=== PATIENT | female | born 1955 | race Caucasian/White ===

== ENCOUNTER → 2016-09-18 | Outpatient (CLI) | payer OTHER ==
[~2016-09-18] MED LIST: ACET325T96 PO; ALBU1AER9 PO; AMOX500T PO; AMOX875T PO; ASCA500 PO; ASPEC81 PO; ASPI81TA28 PO; ATOR-24 PO; B-CO1TAB73 PO; CALC0.2510 PO; CEFD1CAP14 PO; CHOL100010 PO; CHOL2000 PO; CIPR1TAB11 PO; CMD/25 PO; CMD25 PO; CPR750 PO; CPROT OT; CYAN10005 PO; DIPH2CRE16 EXT; DOCU-94 PO; GABA1CAP5 PO; HEPA1INJ22 SQ; HYDR-3126 PO; HYDR-3419 PO; HYDR-4330 PO; HYDR-5688 PO; INSDGI SQ; INSDGIPEN SC; INSU1.2I SQ; INSUINJ14 SC; LEVO125T72 PO; LEVO1TAB33 PO; LORA-741 PO; LORA0.5T12 PO; LVQ500 PO; MAGN400T5 PO; MCTP EXT; METO-452 PO; METO2.5T PO; METO25TA3 PO; MISCCAP80 PO; MULT-506 PO; MULTTAB63 PO; NUTRMIS PO; NVLG SC; NYSP EXT; OXGN; PIPE1INJ11 IV; POTA20TA13 PO; PRED-301 PO; PRT/20 PO; SERT-234 PO; SNTO30; SNTO30 EXT; SNTO30 TOP; SPRIN/30 INH; TIOTCAP INH; TORS100T13 PO; VANC5CAP PO; VNCS250 PO; WARF5TAB90 PO; ZSYI45 IV; [UNRECOGNIZED DRUG - CODE] IV; protein powder PO
[2016-09-18 12:09] LABS: BASO % 0.5 %; BASO ABS # 0.09 K/uL (0-0.2); EOS % 4.5 %; HEMATOCRIT 31.3 % (37-47); IG% 0.7 %; LYMPH % 8.3 %; LYMPH ABS # 1.59 K/uL (1.2-3.4); MEAN CORPUSCULAR HGB CONC 29.1 g/dl (32-36); MEAN PLATELET VOLUME 9.4 fL (7.4-10.4); MONO % 7.1 %; NEUT % 78.9 %; PLATELET COUNT 514 K/uL (130-400); RED BLOOD COUNT 3.64 M/uL (4.2-5.4); WHITE BLOOD COUNT 19.23 K/uL (4.8-10.8)
[2016-09-18 12:30] LABS: ALT/SGPT 20 U/L (12-78); AST/SGOT 15 U/L (15-37); BLOOD UREA NITROGEN 25 mg/dl (7-18); BUN/CREATININE RATIO 13.2 (10-20); CALCIUM 9.1 mg/dl (8.5-10.1); CARBON DIOXIDE 30 mmol/L (21-32); CHLORIDE 106 mmol/L (98-107); GLUCOSE 159 mg/dl (70-99); POTASSIUM 5.3 mmol/L (3.5-5.1); SODIUM 144 mmol/L (136-145)
[2016-09-18 12:33] LABS: ALB/GLOB RATIO 0.4 (0.9-2); ALKALINE PHOSPHATASE 138 U/L (45-117)
[2016-09-18 12:40] LABS: ANISOCYTOSIS PRESENT; COMPLETE YES; POLYCHROMASIA 1+; STOMATOCYTE 1+
== END ==
LOC: C.LABCC 11:48
PROVIDERS: ATTEND Internal Medicine
DX: L08.9 Local infection of the skin and subcutaneous tissue, unspecified (principal)

== ENCOUNTER → 2016-09-25 | Outpatient (CLI) | payer OTHER ==
[~2016-09-25] MED LIST changes: -CEFD1CAP14 PO; -METO-452 PO; +METO1TAB66 PO; -SNTO30 TOP
[2016-09-25 09:12] LABS: HEMATOCRIT 32.7 % (37-47); MEAN CORPUSCULAR HEMOGLOBIN 24.7 pg (25-34); MEAN CORPUSCULAR HGB CONC 28.4 g/dl (32-36); MEAN PLATELET VOLUME 9.3 fL (7.4-10.4); PLATELET COUNT 423 K/uL (130-400); RED BLOOD COUNT 3.76 M/uL (4.2-5.4); WHITE BLOOD COUNT 16.73 K/uL (4.8-10.8)
[2016-09-25 09:13] LABS: ALT/SGPT 17 U/L (12-78); AST/SGOT 16 U/L (15-37); BLOOD UREA NITROGEN 29 mg/dl (7-18); BUN/CREATININE RATIO 13.9 (10-20); CALCIUM 9.3 mg/dl (8.5-10.1); CARBON DIOXIDE 25 mmol/L (21-32); CHLORIDE 105 mmol/L (98-107); GLUCOSE 115 mg/dl (70-99); POTASSIUM 3.7 mmol/L (3.5-5.1); SODIUM 144 mmol/L (136-145)
[2016-09-25 09:15] LABS: ALB/GLOB RATIO 0.4 (0.9-2); ALKALINE PHOSPHATASE 144 U/L (45-117)
[2016-09-25 10:59] LABS: ANISOCYTOSIS PRESENT; BASO % 0.7 %; BASO ABS # 0.12 K/uL (0-0.2); COMPLETE YES; IG% 1.1 %; LYMPH ABS # 2.17 K/uL (1.2-3.4); MONO % 12.4 %; NEUT % 65.8 %; OVALOCYTES 1+; POLYCHROMASIA 1+
== END ==
LOC: C.LABCC 08:26
PROVIDERS: ATTEND Internal Medicine
DX: L08.9 Local infection of the skin and subcutaneous tissue, unspecified (principal)

== ENCOUNTER → 2016-10-02 | Outpatient (CLI) | payer OTHER ==
[2016-10-02 08:27] LABS: BASO % 0.7 %; BASO ABS # 0.13 K/uL (0-0.2); COMPLETE YES; EOS % 6.9 %; HEMATOCRIT 33.5 % (37-47); LYMPH % 11.5 %; LYMPH ABS # 2.13 K/uL (1.2-3.4); MEAN CELL VOLUME 85.9 fL (80-100); MEAN CORPUSCULAR HEMOGLOBIN 24.9 pg (25-34); MEAN PLATELET VOLUME 9.6 fL (7.4-10.4); MONO % 11.9 %; PLATELET COUNT 445 K/uL (130-400); WHITE BLOOD COUNT 18.52 K/uL (4.8-10.8)
[2016-10-02 08:33] LABS: BLOOD UREA NITROGEN 35 mg/dl (7-18); CALCIUM 9.2 mg/dl (8.5-10.1); CARBON DIOXIDE 26 mmol/L (21-32); CHLORIDE 103 mmol/L (98-107); GLUCOSE 145 mg/dl (70-99); POTASSIUM 3.6 mmol/L (3.5-5.1); SODIUM 143 mmol/L (136-145)
[2016-10-02 08:36] LABS: ALB/GLOB RATIO 0.4 (0.9-2); ALKALINE PHOSPHATASE 167 U/L (45-117); ALT/SGPT 26 U/L (12-78); AST/SGOT 28 U/L (15-37)
--- NOTE | 2016-10-04 11:54 | CODING QUERY NO DIAGNOSIS ---
: 1955 TREATMENT RENDERED WITHOUT A DIAGNOSIS To promote full compliance with coding requirements relating to patient care, physician participation is requested in all cases of manager ct uncertainty. Please assist us with providing a diagnosis/symptom for the test(s) below: A diagnosis/symptom was not documented on your Order. A valid diagnosis/symptom is required to bill all insurances. Please remember that we are unable to code a diagnosis of rule out, probable, possible, questionable, or suspected. Tests that require a diagnosis: DOS: 10/02/16 * Comprehensive Metabolic Panel DIAGNOSIS: * CBC W/Auto Differential DIAGNOSIS: * Erythrocyte Sedimentation Rate DIAGNOSIS: Provider Signature: Date: Thank you Carolyn Hernandez Health Information Management Once completed, please kindly fax back to [phone] For questions please call [phone]
== END ==
LOC: C.LABCC 07:58
PROVIDERS: ATTEND Internal Medicine
DX: S31.809A Unspecified open wound of unspecified buttock, initial encounter (principal); X58.XXXA Exposure to other specified factors, initial encounter

== ENCOUNTER → 2016-10-09 | Outpatient (CLI) | payer OTHER ==
[2016-10-09 09:00] LABS: BASO % 0.5 %; COMPLETE YES; EOS % 7.1 %; HEMATOCRIT 35.1 % (37-47); IG% 0.6 %; LYMPH % 10.4 %; LYMPH ABS # 1.99 K/uL (1.2-3.4); MEAN CELL VOLUME 85.4 fL (80-100); MEAN CORPUSCULAR HEMOGLOBIN 25.1 pg (25-34); MEAN CORPUSCULAR HGB CONC 29.3 g/dl (32-36); MEAN PLATELET VOLUME 9.5 fL (7.4-10.4); MONO % 10.1 %; NEUT % 71.3 %; PLATELET COUNT 457 K/uL (130-400); RED BLOOD COUNT 4.11 M/uL (4.2-5.4); WHITE BLOOD COUNT 19.08 K/uL (4.8-10.8)
[2016-10-09 09:08] LABS: ALT/SGPT 29 U/L (12-78); BLOOD UREA NITROGEN 46 mg/dl (7-18); BUN/CREATININE RATIO 15.8 (10-20); CALCIUM 9.3 mg/dl (8.5-10.1); CARBON DIOXIDE 24 mmol/L (21-32); CHLORIDE 103 mmol/L (98-107); GLUCOSE 128 mg/dl (70-99); POTASSIUM 3.7 mmol/L (3.5-5.1); SODIUM 141 mmol/L (136-145)
[2016-10-09 09:11] LABS: ALB/GLOB RATIO 0.4 (0.9-2); ALKALINE PHOSPHATASE 175 U/L (45-117); AST/SGOT 28 U/L (15-37)
[2016-10-09 10:04] LABS: ECHINOCYTES 1+; POLYCHROMASIA 1+
== END ==
LOC: C.LABCC 08:31
PROVIDERS: ATTEND Internal Medicine
DX: L08.9 Local infection of the skin and subcutaneous tissue, unspecified (principal)

== ENCOUNTER → 2016-10-14 | Outpatient (CLI) | payer OTHER ==
[2016-10-14 08:52] LABS: BASO % 0.9 %; BASO ABS # 0.14 K/uL (0-0.2); COMPLETE YES; EOS % 6.2 %; HEMATOCRIT 36.3 % (37-47); IG% 0.6 %; LYMPH % 12.3 %; LYMPH ABS # 1.93 K/uL (1.2-3.4); MEAN CORPUSCULAR HEMOGLOBIN 25.1 pg (25-34); MEAN CORPUSCULAR HGB CONC 29.5 g/dl (32-36); MEAN PLATELET VOLUME 9.6 fL (7.4-10.4); MONO % 12.3 %; NEUT % 67.7 %; PLATELET COUNT 483 K/uL (130-400); RED BLOOD COUNT 4.27 M/uL (4.2-5.4); WHITE BLOOD COUNT 15.74 K/uL (4.8-10.8)
[2016-10-14 08:58] LABS: BLOOD UREA NITROGEN 54 mg/dl (7-18); BUN/CREATININE RATIO 19.1 (10-20); CALCIUM 9.3 mg/dl (8.5-10.1); CARBON DIOXIDE 25 mmol/L (21-32); CHLORIDE 102 mmol/L (98-107); GLUCOSE 154 mg/dl (70-99); POTASSIUM 3.5 mmol/L (3.5-5.1); SODIUM 141 mmol/L (136-145)
== END ==
LOC: C.LABCC 08:31
PROVIDERS: ATTEND Internal Medicine
DX: N18.9 Chronic kidney disease, unspecified (principal); S31.809A Unspecified open wound of unspecified buttock, initial encounter; X58.XXXA Exposure to other specified factors, initial encounter

== ENCOUNTER 2016-10-15 11:07 | Inpatient (IN) | payer OTHER ==
[~2016-10-15] VITALS: Ht 162.6 cm; Wt 123.2 kg
[~2016-10-15 11:07] MED LIST changes: -ACET325T96 PO; -AMOX500T PO; -AMOX875T PO; -ASCA500 PO; -ASPI81TA28 PO; -ATOR-24 PO; -B-CO1TAB73 PO; -CALC0.2510 PO; -CHOL2000 PO; -CIPR1TAB11 PO; -CMD/25 PO; -CMD25 PO; -CPR750 PO; -CPROT OT; -CYAN10005 PO; -DOCU-94 PO; -GABA1CAP5 PO; -HYDR-3126 PO; -HYDR-4330 PO; -HYDR-5688 PO; -INSDGI SQ; -INSDGIPEN SC; -LEVO125T72 PO; -LEVO1TAB33 PO; -LORA-741 PO; -LORA0.5T12 PO; -LVQ500 PO; -MAGN400T5 PO; -MCTP EXT; -METO2.5T PO; -METO25TA3 PO; -MISCCAP80 PO; -MULTTAB63 PO; -NUTRMIS PO; -NVLG SC; -POTA20TA13 PO; -PRED-301 PO; -PRT/20 PO; -SERT-234 PO; -SNTO30 EXT; -SPRIN/30 INH; -TORS100T13 PO; -VNCS250 PO; -WARF5TAB90 PO; -[UNRECOGNIZED DRUG - CODE] IV; -protein powder PO
[2016-10-15 12:15] VITALS: BP 147/84; PULSE 101; TEMP 36.7; O2SAT 94
[2016-10-15] MEDS ORDERED: ONDANSETRON INJ 2 MG/ML 2 ML VIAL IV PRN (12:30)
[2016-10-15] MEDS ORDERED: ACETAMINOPHEN 325 MG TAB PO PRN (12:30)
[2016-10-15 13:07] LABS: BASO % 0.5 %; BASO ABS # 0.08 K/uL (0-0.2); EOS % 3.4 %; HEMATOCRIT 40.2 % (37-47); IG% 0.6 %; LYMPH % 6.4 %; LYMPH ABS # 1.12 K/uL (1.2-3.4); MEAN CELL VOLUME 85.2 fL (80-100); MEAN CORPUSCULAR HEMOGLOBIN 25.6 pg (25-34); MEAN PLATELET VOLUME 8.8 fL (7.4-10.4); MONO % 7.8 %; NEUT % 81.3 %; PLATELET COUNT 478 K/uL (130-400); RED BLOOD COUNT 4.72 M/uL (4.2-5.4); WHITE BLOOD COUNT 17.56 K/uL (4.8-10.8)
[2016-10-15] MEDS ORDERED: ALBUTEROL HFA 8 GM INHALER INH PRN (13:15)
[2016-10-15 13:16] LABS: COMPLETE YES; MEAN CORPUSCULAR HGB CONC 30.1 g/dl (32-36)
[2016-10-15] MEDS ORDERED: HYDR-3419 PO (13:18)
[2016-10-15] MEDS ORDERED: MULTTAB63 PO ×2 (13:18)
[2016-10-15] MEDS ORDERED: ACET325T96 PO ×2 (13:18)
[2016-10-15] MEDS ORDERED: TORS100T13 PO ×2 (13:18)
[2016-10-15] MEDS ORDERED: LORA0.5T12 PO (13:18)
[2016-10-15] MEDS ORDERED: METO2.5T PO ×2 (13:18)
[2016-10-15] MEDS ORDERED: POTA20TA13 PO ×2 (13:18)
[2016-10-15] MEDS ORDERED: protein powder PO ×2 (13:18)
[2016-10-15] MEDS ORDERED: VNCS250 PO (13:18)
[2016-10-15] MEDS ORDERED: PIPE1INJ11 IV (13:18)
[2016-10-15 13:26] LABS: BLOOD UREA NITROGEN 49 mg/dl (7-18); BUN/CREATININE RATIO 18.8 (10-20); CALCIUM 9.3 mg/dl (8.5-10.1); CARBON DIOXIDE 26 mmol/L (21-32); CHLORIDE 103 mmol/L (98-107); GLUCOSE 161 mg/dl (70-99); MAGNESIUM 2.1 mg/dl (1.8-2.4); POTASSIUM 3.7 mmol/L (3.5-5.1); SODIUM 143 mmol/L (136-145)
[2016-10-15] MEDS ORDERED: GLUCOSE 40% GEL 15 GM TUBE PO PRN (13:30)
[2016-10-15] MEDS ORDERED: GLUCAGON FOR INJ 1 MG VIAL SQ PRN (13:30)
[2016-10-15] MEDS ORDERED: DEXTROSE 50% 50 ML SYR IV PRN (13:30)
[2016-10-15] MEDS ORDERED: GLUCOSE 10 TABS/TUBE PO PRN (13:30)
[2016-10-15] MEDS ORDERED: PROTEIN PO SCH (14:00)
--- NOTE | 2016-10-15 14:12 | History and Physical ---
History & Physical Date & Time of Service: Oct 15, 2016 at 13:06 Chief Complaint: Infected Right Hip Wound; Cdiff Primary Care Physician: Dewayne Ames History of Present Illness Source: patient, family (daughter at bedside), clinic records, hospital records This is a 61 year old female with PMH of DM type 2, chronic hypoxic respiratory failure, CKD stage IV, right sided heart failure, pulmonary hypertension, obesity hypoventilation, atrial fibrillation, and other problems listed below who presents as a direct admission from Dr. Mcduffie for right hip wound infection. Patient was recently hospitalized from Aug 27-2015 for bilateral hip wound infection s/p debridement August 30, treated with Avycaz and discharged on IV Zosyn via PICC line. She was also found to be C. diff positive and discharged on PO vancomycin. Patient was discharged to [facility]. She followed up with Bird Akhtar PA-C and with Dr. Houston as an outpatient who added metolazone 2.5 mg weekly. She is following with wound care and ID. She has wound vacs on the bilateral hips. She additionally has wounds on her buttocks and right thigh. On 10/08/16 she had wound culture of the right hip which grew MDR Klebsiella. Patient states she has been feeling tired. Mobility is limited to transfers to and from wheelchair. She also notes a cough with yellow sputum x approximately 1 month. She states diarrhea is improving- currently having 4 BM a day which are becoming more formed. She has occasional abdominal cramps. Daughter states her BLLE edema is improved. She denies fever, chills, rhinorrhea, chest pain, wheezing, SOB, N/V, urinary changes. Past Medical/Surgical History Medical Problems: (1) Atrial Fibrillation Status: Chronic (2) Chronic respiratory failure Status: Chronic (3) CKD (chronic kidney disease), stage IV Status: Chronic (4) Cor pulmonale Status: Chronic (5) Diab Ania Wo Compl, Type Ii Or Unspec Type, Uncontrolled Status: Chronic (6) Gastroparesis Status: Chronic (7) Hyperlipidemia Nec/Nos Status: Chronic (8) Hypertension Status: Chronic (9) Hypertension Nos Status: Chronic (10) Morbid Obesity Status: Chronic (11) Obesity hypoventilation syndrome Status: Chronic (12) Sleep apnea Status: Chronic Surgical Problems: (1) S/P cholecystectomy Status: Chronic (2) S/P debridement Permanent Comment: 08/30/2016- debridement bilateral lower extremity and buttock wounds Status: Chronic Family History Cancer Diabetes mellitus FH: heart disease FHx: lung disease Hypertension Kidney stones Social History Smoking Status: Former Smoker Drug Use: none Marital Status: Housing status: lives with family Occupational Status: disabled Immunizations History of Influenza Vaccine: Yes Influenza Vaccine Date: Jul 15, 2011 History of Tetanus Vaccine?: Unknown History of Pneumococcal: Yes Pneumococcal Date: Sep 17, 2008 History of Hepatitis B Vaccine: Unknown 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 Allergies Coded Allergies: Bacitracin (Verified Allergy, Intermediate, RASH,ITCH, 08/27/16) Celecoxib (Verified Allergy, Intermediate, RASH TO SULFA DRUGS, 08/27/16) Neomycin (Verified Allergy, Intermediate, RASH,ITCH, 08/27/16) Polymyxin B (Verified Allergy, Intermediate, RASH,ITCH, 08/27/16) Sulfa Antibiotics (Verified Allergy, Intermediate, RASH,HAS TAKEN GLIPIZIDE W/O REACTION, 08/27/16) Tigecycline (Verified Adverse Reaction, Severe, MILD PANCREATITIS, ) 61 yo F placed on IV tigecycline for wound infection, after 5-6 days developed decreased appetite, had nonspecific abdominal pain from admission and was refusing to lie back for daily abd assessments because of pain in other areas of abdomen. Decreased appetite persisted, also in context of worsening depression and stated apathy, WBC continued to increase, CT chest revealed n/s changes possibly consistent with mild pancreatitis, lipase drawn and elevated, other causes ruled out, clinical pancreatitis on exam. Diruretics/albumin stopped to avoid further rehydration, tigecycline discontinued, continuing supportive care. Codeine (Verified Adverse Reaction, Intermediate, GI UPSET, 08/27/16) Home Medications Scheduled Ascorbic Acid (Vitamin C), 500 MG PO BID Aspirin Enteric Coated (Ecotrin Or Generic *), 81 MG PO DAILY Atorvastatin (Lipitor), 40 MG PO DAILY Calcitriol (Rocaltrol Cap), 0.25 MCG PO UD Cholecalciferol (Vitamin D), 2,000 INTER.UNIT PO DAILY Cyanocobalamin (Vitamin B-12), 1,000 MCG PO DAILY Gabapentin (Neurontin), 400 MG PO BID Heparin Sodium (Porcine) (Heparin Sodium), 5,000 UNITS SQ BID Insulin Aspart (Novolog Penfill), 3 UNITS SC AC Insulin Glargine (Toujeo Solostar), 20 UNITS SQ DAILY Levothyroxine Sodium (Synthroid), 125 MCG PO DAILY Lorazepam (Lorazepam), 1 TAB PO UD Magnesium Oxide (Mag-Ox), 400 MG PO BID Metolazone (Zaroxolyn), 2.5 MG PO WK Metoprolol Succinate (Toprol Xl), 50 MG PO DAILY Multiple Vitamins W/ Minerals (Therems M), 1 TAB PO DAILY Pantoprazole (Protonix), 20 MG PO DAILY Piperacillin Sodium-Tazobactam (Zosyn), 2.25 GM IV Q6H Potassium Chloride Microencaps (Potassium Chloride Er), 1 TAB PO DAILY Prednisone (Prednisone), 5 MG PO DAILY Sertraline (Zoloft), 150 MG PO DAILY Tiotropium [place] (Spiriva Handihaler), 1 CAP INH DAILY Torsemide (Demadex), 100 MG PO DAILY Vancomycin HCl (Vancomycin HCl), 125 MG PO DAILY [protein powder], 1 DOSE PO TID Scheduled PRN Acetaminophen Tab (Tylenol), 650 MG PO Q6H PRN for Pain Albuterol (Proair Hfa), 2 PUFFS PO QID PRN for Shortness of Breath Hydrocodon/Acetaminophen 5MG/300MG (Vicodin (5MG/300MG)), 1 TAB PO Q6H PRN for Pain Review of Systems Constitutional: + fatigue, No chills, No fever ENT: No nasal symptoms, No sore throat Respiratory: + cough, + sputum, No shortness of breath, No wheezing Cardiovascular: No chest pain Abdomen: + diarrhea, + pain (occasional), No GI bleeding, No nausea, No vomiting Musculoskeletal: No calf pain Genitourinary - Female: No dysuria, No urinary frequency Hematologic / Lymphatic: + problem reported (bruises easily. denies abnormal bleeding) Integumentary: + problem reported (wounds on bilateral hips, right thigh, and buttocks) Physical Exam Vital Signs Date Time Temp Pulse Resp B/P Pulse Ox O2 Delivery O2 Flow Rate FiO2 10/15/16 12:15 36.7 101 18 147/84 94 Nasal Cannula 3.0 General Appearance: no apparent distress, + obese, + pertinent finding (alert, obese, chronically ill appearing 61 year old female, sitting in wheelchair, daughter at bedside) Head: normocephalic, atraumatic Eyes: normal inspection, sclerae normal ENT: hearing grossly normal Neck: supple, trachea midline Respiratory/Chest: lungs clear, normal breath sounds, no respiratory distress, + pertinent finding (on chronic oxygen 3 liters nasal cannula) Cardiovascular: regular rate, rhythm, no murmur Abdomen/GI: normal bowel sounds, non tender, soft Extremities/Musculoskelatal: no calf tenderness, + pertinent finding (trace pretibial edema bilaterally- improved as per daughter at bedside) Neurologic/Psych: alert, normal mood/affect, oriented x 3, + pertinent finding (grossly nonfocal) Skin: warm/dry, + pertinent finding (wound vac's on bilateral hips with surrounding erythema, 1 cm ulceration on right thigh with white base, multiple tiny superficial ulcerations on medial buttocks) Diagnostics Laboratory Results Results Past 24 Hours Test 10/15/16 12:04 10/15/16 12:50 Range/Units Bedside Glucose 180 70-90 mg/dl Microbiology Results 10/15/16 Blood Culture, Received Pending 10/15/16 Blood Culture, Ronaldo Batch Pending Impression Assessment and Plan RIGHT HIP WOUND INFECTION Sent by Dr. Mcduffie for direct admission Afebrile; + leukocytosis (WBC 17.5); +tachycardia; BP stable; will check lactic acid S/p debridement of BLLE and buttock wounds on Aug 30, 2016 Has wound vacs on bilateral hips Right hip wound culture 10/08/16 grew multi drug resistant Klebsiella Will be placed on Avycaz 0.94 gm q12 hours as per ID recommendation- to be ordered by ID Consult ID, wound care provider, wound care nurse CKD STAGE IV Baseline Cr low 2's In past week has been 2.9 ->2.8 as outpatient Now Cr is 1.6 Monitor renal function COUGH Check CXR and influenza PCR C DIFF DIARRHEA Improving as per patient- stool becoming more formed Continue PO Vancomycin taper- on 125 mg daily through 10/23/16 DM TYPE 2 Continue Toujeo Insulin sliding scale coverage Monitor BSG AC HS Prior A1c was 7.5 on 08/11/16 ATRIAL FIBRILLATION Rate is 100's Continue metoprolol Coumadin previously discontinued due to hematoma/ fall risk As per recent cardiology note risk of Coumadin anticoagulation currently greater than benefit On aspirin CHRONIC HYPOXEMIC RESPIRATORY FAILURE Continue chronic supplemental O2 3 liters NC RIGHT SIDED HEART FAILURE/ PULMONARY HTN Appears euvolemic Echo November 2015- LV EF 55-60%, RV moderately dilated with moderate to severe reduced function, biatrial dilation, severely elevated RV systolic pressure, severely dilated IVC Continue torsemide and metolazone COPD Not in exacerbation Continue home inhaler OBESITY HYPOVENTILATION Continue BiPAP HS HYPOTHYROIDISM Continue levothyroxine HYPERLIPIDEMIA Continue statin DVT PROPHYLAXIS Heparin SQ CODE STATUS Full code as per preference on recent admission DISPOSITION Currently at [facility] Follows with Dr. Gonzalez for primary care Patient seen in collaboration with Dr. Chaudhary. Please see his addendum. VTE Prophylaxis VTE Risk Assessment Done? Y/N: Yes Risk Level: High
--- NOTE | 2016-10-15 14:14 | Progress Note ---
Progress Note ATTENDING ADDENDUM care coordinated with DOMINICK Mcqueen please refer to her notes for full details, I agree with her notes patient seen and examined, records reviewed by myself as well on exam, patient seen sitting up in wheelchair, comfortable, pleasant denies shortness of breath,chest pain, dizziness no fever/chills, nausea no other symptoms VS noted and reviewed oriented x 3 , not in distress, speaks in sentences with no effort nor accessory muscle use normal rate, (+) irregularly irregular rhythm, no murmurs clear breath sounds bilaterally non distended, soft, nontender mild lower leg edema, erythema, warmth left hip wound with wound vac in place- mild surrounding erythema, no tenderness no neuro deficits WBC 17k crea 2.6 ASSESSMENT/PLAN> CHRONIC BILATERAL HIP WOUNDS Wound culture 10/08/16: (+) multidrug resistant Klebsiella - ff up blood cultures - per ID recommendation, start Avycaz ID and Wound Care SVC consulted CKD 4 at baseline monitor while on diuretics other diagnoses and plan of care as per DOMINICK Mcqueen's notes Cooper Chaudhary MD
--- NOTE | 2016-10-15 15:10 | DIAGNOSTIC IMAGING REPORT ---
CHEST 2 VIEWS ROUTINE CLINICAL HISTORY: cough dyspnea COMPARISON STUDY: 09/08/2016 FINDINGS: Central catheter is noted in the superior vena cava. Mild stable cardia megaly. Small residual right pleural effusion. Prominent pulmonary vasculature. IMPRESSION: Small right pleural effusion. Pulmonary vascular congestion. PICC catheter in the superior vena cava. Electronically signed by: Bird Patino M.D. 10/15/2016 3:08 PM Dictated Date/Time: 10/15/2016 3:07 PM
[2016-10-15 16:00] VITALS: BP 144/88; PULSE 110; TEMP 36.6; O2SAT 91
[2016-10-15 16:03] LABS: INR 1.1 (0.9-1.1); PROTHROMBIN TIME (PATIENT) 12.2 SECONDS (9.0-12.0)
[2016-10-15 16:30] VITALS: O2SAT 91
[2016-10-15] MEDS: INSULIN ASPART 100 UNITS/ML 3 ML PEN SC SCH ×2 (18:00→21:32)
[2016-10-15] MEDS: CEFTAZIDIME AVIBACTAM IV SCH (18:23)
[2016-10-15] MEDS: SODIUM CHLORIDE 0.9% IV SCH (18:23)
[2016-10-15 18:26] LABS: INFLUENZA A PCR Neg for Influ A (NEG); INFLUENZA B PCR Neg for Influ B (NEG)
[2016-10-15] MEDS: MAGNESIUM OXIDE 400 MG TAB PO SCH (20:25)
[2016-10-15] MEDS: GABAPENTIN 400 MG CAP PO SCH (20:26)
[2016-10-15] MEDS: ASCORBIC ACID 500 MG TAB PO SCH (20:27)
[2016-10-15] MEDS: HYDROCODONE/ACETAMOPHEN 5/325MG TAB PO PRN (20:30)
[2016-10-15] MEDS: HEPARIN SOD 5000 UNIT/0.5 ML CARP SQ SCH (21:33)
[2016-10-15 23:27] VITALS: BP 138/82; PULSE 89; TEMP 36.8; O2SAT 90
[2016-10-16] MEDS: CEFTAZIDIME AVIBACTAM IV SCH ×2 (05:26→17:40)
[2016-10-16] MEDS: LEVOTHYROXINE 125 MCG TAB PO SCH (05:26)
[2016-10-16] MEDS: SODIUM CHLORIDE 0.9% IV SCH ×2 (05:26→17:40)
[2016-10-16 06:35] LABS: HEMATOCRIT 37.1 % (37-47); MEAN CELL VOLUME 84.3 fL (80-100); MEAN CORPUSCULAR HEMOGLOBIN 24.5 pg (25-34); MEAN CORPUSCULAR HGB CONC 29.1 g/dl (32-36); MEAN PLATELET VOLUME 9.3 fL (7.4-10.4); PLATELET COUNT 454 K/uL (130-400)
[2016-10-16 07:02] LABS: BLOOD UREA NITROGEN 49 mg/dl (7-18); BUN/CREATININE RATIO 19.7 (10-20); CALCIUM 9.3 mg/dl (8.5-10.1); CARBON DIOXIDE 28 mmol/L (21-32); CHLORIDE 104 mmol/L (98-107); GLUCOSE 130 mg/dl (70-99); POTASSIUM 3.5 mmol/L (3.5-5.1); SODIUM 142 mmol/L (136-145)
[2016-10-16 07:56] VITALS: BP 131/79; PULSE 93; TEMP 36.2; O2SAT 95
[2016-10-16] MEDS: HYDROCODONE/ACETAMOPHEN 5/325MG TAB PO PRN (08:41)
[2016-10-16] MEDS: POTASSIUM CHLORIDE 20 MEQ TABCR PO SCH (08:41)
[2016-10-16] MEDS: PANTOprazole SOD 40 MG TAB PO SCH (08:42)
[2016-10-16] MEDS: CALCITRIOL 0.25 MCG CAP PO SCH (08:42)
[2016-10-16] MEDS: CHOLECALCIFEROL 1000 INTER.UNIT TAB PO SCH (08:42)
[2016-10-16] MEDS: METOPROLOL SUCC 50MG EXT REL TAB PO SCH (08:43)
[2016-10-16] MEDS: ATORVASTATIN 20 MG TAB PO SCH (08:43)
[2016-10-16] MEDS: ASCORBIC ACID 500 MG TAB PO SCH ×2 (08:43→21:33)
[2016-10-16] MEDS: CYANOCOBALAMIN 500 MCG TAB (VIT B-12) PO SCH (08:44)
[2016-10-16] MEDS: ASPIRIN 81 MG ECTAB PO SCH (08:44)
[2016-10-16] MEDS: SERTRALINE HCL 50 MG TAB PO SCH (08:44)
[2016-10-16] MEDS: MAGNESIUM OXIDE 400 MG TAB PO SCH ×2 (08:44→21:32)
[2016-10-16] MEDS: TORSEMIDE 20 MG TAB PO SCH (08:45)
[2016-10-16] MEDS: TIOTROPIUM BROMIDE 5 PUFF/90 MCG INH INH SCH (08:45)
[2016-10-16] MEDS: RASPBERRY SYRUP 5 ML UDP PO SCH (08:46)
[2016-10-16] MEDS: VANCOMYCIN HCL 250 MG/5 ML SOLN PO SCH (08:46)
[2016-10-16] MEDS ORDERED: INSULIN GLARGINE SOLOSTAR 100 UNITS/ML 3 ML PEN SC SCH (09:00)
[2016-10-16] MEDS ORDERED: NON-FORMULARY MEDICATION (Insulin Glargine (Toujeo Solostar) 20 UNITS) SQ SCH (09:00)
[2016-10-16] MEDS: INSULIN ASPART 100 UNITS/ML 3 ML PEN SC SCH ×4 (10:09→21:36)
[2016-10-16] MEDS: HEPARIN SOD 5000 UNIT/0.5 ML CARP SQ SCH ×2 (10:10→21:36)
[2016-10-16 10:21] VITALS: O2SAT 95
--- NOTE | 2016-10-16 11:10 | Progress Note ---
Progress Note ID Consult Dictated #[id number] A/P: 1. b/l hip wounds 2. previously diagnosed c diff colitis - on po vanco 3. Leukocytosis -continue avycaz, dose adjusted for ckd. will need prolonged course -Will need continued wound care and ID follow up post d/c -Will follow, thank you
[2016-10-16 11:46] VITALS: BP 132/66; PULSE 106; O2SAT 97
[2016-10-16 11:55] VITALS: BP 143/77; PULSE 101; TEMP 36.2; O2SAT 90
--- NOTE | 2016-10-16 12:34 | INFECT. DISEASE CONSULTATION ---
DATE OF CONSULTATION: 10/16/2016 REQUESTING PHYSICIAN: Dr. Chaudhary. HISTORY OF PRESENT ILLNESS: This is a 61-year-old female who was admitted from the wound care center yesterday by myself as well as the wound care physician for chronically infected bilateral hip wounds. She has been followed at the wound care center for some time and has been on Zosyn most recently for treatment of these wounds. She was admitted in August and underwent surgical debridement. She did grow multiple bacteria at that time and was placed on Zosyn. Previous cultures to her OR cultures had also included a multidrug resistant Klebsiella. Her OR cultures did not grow multidrug resistant Klebsiella. She was at [facility], receiving IV Zosyn. Unfortunately, she also had C. diff colitis and has been on oral vancomycin for treatment of this. Her symptoms of C. diff have improved. She continues with bilateral VACs. She was seen yesterday in the wound care center for routine followup. A culture was obtained on October 08 as she had some increased induration on the right hip wound. She again grew multidrug resistant Klebsiella and required antibiotic change. She had not tolerated tetracycline in the past. She does have kidney disease and would not be a good candidate for aminoglycoside therapy based on this and also her history of morbid obesity. For this reason, the decision was made to place the patient on IV Avycaz. She has been on this previously and tolerated it well. I did speak with her half-way yesterday and they were unable to provide renally dosed Avycaz. For this reason, the decision was made to admit the patient to the hospital to initiate antibiotic therapy and to further monitor her wounds as well as her renal function. The plan is for placement after she is medically stable. On my examination today, she is resting comfortably and offers no complaints. She has no fevers. She does have pain at the bilateral hips but this is essentially unchanged. She was found to have significant leukocytosis of 17,000. She was placed on antibiotics and is tolerating these well. Remaining review of systems are negative. PAST MEDICAL HISTORY: Significant for AFib, COPD, chronic kidney disease, cor pulmonale, type 2 diabetes, gastroparesis, high cholesterol, hypertension, morbid obesity, obesity hypoventilation syndrome, sleep apnea. PAST SURGICAL HISTORY: Significant for cholecystectomy and multiple leg and buttock wound debridements. FAMILY HISTORY: Noncontributory. SOCIAL HISTORY: Significant for history of tobacco use. She denies any alcohol or drug use. She is and lives with family, but most recently has been at [facility]. ALLERGIES: SHE HAS ALLERGIES TO BACITRACIN, CELEBREX, NEOMYCIN, POLYMYXIN B, SULFA ANTIBIOTICS, TETRACYCLINE AND CODEINE. CURRENT MEDICATIONS: Include Zaroxolyn, Lantus, Ecotrin, Lipitor, calcitriol, vitamin D, vitamin B12, Toprol-XL, multivitamins, potassium, prednisone, Zoloft, Spiriva, Demadex, vancomycin orally, Protonix, Synthroid, vitamin C, Neurontin, subQ heparin, magnesium, insulin, Avycaz, Percocet, Ativan, Ventolin, Tylenol and Zofran. PHYSICAL EXAMINATION: VITAL SIGNS: She is afebrile, pulse 93, respiratory rate is 16, blood pressure 131/79, oxygen saturation is 95% on room air. GENERAL: She is awake and comfortable. HEART: Regular. LUNGS: Clear. ABDOMEN: Soft and nondistended. EXTREMITIES: There is no edema, bilateral VACs on her buttock wounds. LABORATORY STUDIES: CBC today reveals a white blood cell count of 17,000, hemoglobin 10.8, hematocrit 37.1, platelets are 454. Chemistry panel reveals a sodium of 142, potassium 3.5, chloride 104, bicarb 28, BUN 49, creatinine 2.5, glucose is 130. Lactic acid was 1.6. Flu swab was negative, MRSA swab is negative. Chest x-ray done in the Emergency Room shows a small right effusion and vascular congestion. ASSESSMENT AND PLAN: 1. Chronically infected bilateral hip wounds with multidrug resistant Klebsiella. 2. Clostridium difficile colitis previously diagnosed and on treatment with oral vancomycin. 3. Leukocytosis. At this time, she will be continued on Avycaz and dose will be adjusted based on creatinine clearance. Pharmacy is involved with her dosing. 4. She will most likely need placement for IV antibiotics in addition to difficulty with transferring and need for continued wound management. She will likely require a prolonged course of antibiotics and will be continued and followup at the wound care center post discharge from the hospital. Thank you for this consultation.
[2016-10-16] MEDS: GABAPENTIN 400 MG CAP PO SCH ×2 (13:18→21:31)
[2016-10-16] MEDS: CEROVITE ADV FORMULA TAB PO SCH (13:19)
[2016-10-16 15:20] VITALS: BP 136/80; PULSE 100; TEMP 36.2; O2SAT 92
--- NOTE | 2016-10-16 18:44 | Progress Note ---
Internal Med Progress Note Date of Service: Oct 16, 2016. Provider Documentation: SUBJECTIVE: Patient is seen and examined at bedside. Patient complains of pain at the wounds bilaterally especially while ambulating. Denies any chest pain, SOB. OBJECTIVE: Vital Signs-as noted below Physical Exam: General Appearance:Obese, no apparent distress Head: normocephalic, Atraumatic Eyes: normal inspection, EOMI, PERRLA Neck: supple, Trachea midline Respiratory/Chest: Normal breath sounds, CTA Cardiovascular: S1, S2, Tachycardia, No murmur Abdomen/GI:Soft, Non tender, Bowel sounds present Extremities/Musculoskelatal:normal inspection, no edema, Wounds vacs in place bilaterally Neurologic/Psych:AAOX3, grossly no focal neurological deficits Skin: normal color, warm Lab data as noted below. ASSESSMENT & PLAN: BILATERAL HIP WOUNDS leukocytosis but afebrile Lactate wnl S/p debridement of BL LE buttock wounds on Aug 30, 2016 Continue wound vacs and wound care Right hip wound culture 10/08/16: grew multi drug resistant Klebsiella Continue IV antibiotics per ID Appreciate ID help CKD STAGE IV Baseline Cr low 2's Stable Monitor renal function COUGH CXR:: Small right pleural effusion and Pulmonary vascular congestion Influenza negative Monitor for now C DIFF DIARRHEA Improving Continue PO Vancomycin taper- on 125 mg daily through 10/23/16 DM II Continue Toujeo Insulin sliding scale coverage Monitor BSG AC HS Prior A1c was 7.5 in Jul 2016 ATRIAL FIBRILLATION Continue metoprolol Coumadin previously discontinued due to hematoma/ fall risk Per cardiology note previously: risk greater than benefit for anticoagulation Conrtinue aspirin CHRONIC HYPOXEMIC RESPIRATORY FAILURE Continue chronic supplemental O2 3 liters NC RIGHT SIDED HEART FAILURE/ PULMONARY HTN Currently Euvolemic Last Echo: LV EF 55-60%, RV moderately dilated with moderate to severe reduced function, biatrial dilation, severely elevated RV systolic pressure, severely dilated IVC Continue torsemide and metolazone COPD Not in exacerbation Continue home meds OBESITY HYPOVENTILATION Continue BiPAP HS HYPOTHYROIDISM Continue levothyroxine HYPERLIPIDEMIA Continue statin DVT PROPHYLAXIS Heparin SQ CODE STATUS Full code Vital Signs: Date Time Temp Pulse Resp B/P Pulse Ox O2 Delivery O2 Flow Rate FiO2 10/16/16 15:40 Nasal Cannula 3.0 10/16/16 15:20 36.2 100 20 136/80 92 Nasal Cannula 3.0 10/16/16 11:55 36.2 101 15 143/77 90 Nasal Cannula 3.0 10/16/16 11:46 106 97 10/16/16 10:21 95 Nasal Cannula 3.0 10/16/16 08:00 Nasal Cannula 3.0 10/16/16 07:56 36.2 93 16 131/79 95 Nasal Cannula 3.0 10/16/16 00:30 Nasal Cannula 3.0 10/15/16 23:27 36.8 89 20 138/82 90 Nasal Cannula 3.0 Lab Results: Results Past 24 Hours Test 10/15/16 20:55 10/16/16 05:55 10/16/16 08:03 10/16/16 11:50 Range/Units Bedside Glucose 181 132 184 70-90 mg/dl White Blood Count 17.00 4.8-10.8 K/uL Red Blood Count 4.40 4.2-5.4 M/uL Hemoglobin 10.8 12.0-16.0 g/dL Hematocrit 37.1 37-47 % Mean Corpuscular Volume 84.3 80-100 fL Mean Corpuscular Hemoglobin 24.5 25-34 pg Mean Corpuscular Hemoglobin Concent 29.1 32-36 g/dl RDW Standard Deviation 59.4 36.4-46.3 fL RDW Coefficient of Variation 19.4 11.5-14.5 % Platelet Count 454 130-400 K/uL Mean Platelet Volume 9.3 7.4-10.4 fL Sodium Level 142 136-145 mmol/L Potassium Level 3.5 3.5-5.1 mmol/L Chloride Level 104 98-107 mmol/L Carbon Dioxide Level 28 21-32 mmol/L Anion Gap 10.0 3-11 mmol/L Blood Urea Nitrogen 49 7-18 mg/dl Creatinine 2.50 0.60-1.20 mg/dl Estimated GFR () 23.1 Estimated GFR (Non- 19.9 BUN/Creatinine Ratio 19.7 10-20 Random Glucose 130 70-99 mg/dl Calcium Level 9.3 8.5-10.1 mg/dl Magnesium Level 2.0 1.8-2.4 mg/dl Test 10/16/16 17:00 Range/Units Bedside Glucose 162 70-90 mg/dl
[2016-10-16] MEDS: PROSOURCE NOCARB 30ML/PKT PO SCH (21:00)
[2016-10-17] VITALS: BP 137/83; PULSE 100; TEMP 36.7; O2SAT 92
[2016-10-17] MEDS: HYDROCODONE/ACETAMOPHEN 5/325MG TAB PO PRN (02:34)
[2016-10-17] MEDS: SODIUM CHLORIDE 0.9% IV SCH ×2 (05:47→16:22)
[2016-10-17] MEDS: LEVOTHYROXINE 125 MCG TAB PO SCH (05:47)
[2016-10-17] MEDS: CEFTAZIDIME AVIBACTAM IV SCH ×2 (05:47→16:22)
[2016-10-17] MEDS ORDERED: HYDROmorphone INJ 1 MG/ML SYR IV PRN (06:00)
[2016-10-17 07:05] LABS: BUN/CREATININE RATIO 20.4 (10-20); CALCIUM 9.1 mg/dl (8.5-10.1); CREATININE 2.2 mg/dl (0.60-1.20); POTASSIUM 3.4 mmol/L (3.5-5.1)
[2016-10-17 07:37] VITALS: BP 128/74; PULSE 108; TEMP 36.7; O2SAT 91
[2016-10-17 08:00] VITALS: O2SAT 89
[2016-10-17] MEDS: CYANOCOBALAMIN 500 MCG TAB (VIT B-12) PO SCH (08:46)
[2016-10-17] MEDS: ASPIRIN 81 MG ECTAB PO SCH (08:46)
[2016-10-17] MEDS: CHOLECALCIFEROL 1000 INTER.UNIT TAB PO SCH (08:46)
[2016-10-17] MEDS: TORSEMIDE 20 MG TAB PO SCH (08:46)
[2016-10-17] MEDS: ATORVASTATIN 20 MG TAB PO SCH (08:47)
[2016-10-17] MEDS: PANTOprazole SOD 40 MG TAB PO SCH (08:47)
[2016-10-17] MEDS: POTASSIUM CHLORIDE 20 MEQ TABCR PO SCH (08:47)
[2016-10-17] MEDS: TIOTROPIUM BROMIDE 5 PUFF/90 MCG INH INH SCH (08:47)
[2016-10-17] MEDS: CEROVITE ADV FORMULA TAB PO SCH (08:47)
[2016-10-17] MEDS: GABAPENTIN 400 MG CAP PO SCH ×2 (08:47→20:37)
[2016-10-17] MEDS: SERTRALINE HCL 50 MG TAB PO SCH (08:47)
[2016-10-17] MEDS: METOPROLOL SUCC 50MG EXT REL TAB PO SCH (08:47)
[2016-10-17] MEDS: MAGNESIUM OXIDE 400 MG TAB PO SCH ×2 (08:48→20:35)
[2016-10-17] MEDS: ASCORBIC ACID 500 MG TAB PO SCH ×2 (08:49→20:35)
[2016-10-17] MEDS: VANCOMYCIN HCL 250 MG/5 ML SOLN PO SCH (08:49)
[2016-10-17] MEDS: PROSOURCE NOCARB 30ML/PKT PO SCH ×3 (08:50→20:44)
[2016-10-17] MEDS: RASPBERRY SYRUP 5 ML UDP PO SCH (09:00)
[2016-10-17] MEDS: INSULIN ASPART 100 UNITS/ML 3 ML PEN SC SCH ×4 (10:21→20:43)
[2016-10-17] MEDS: INSULIN GLARGINE SOLOSTAR 100 UNITS/ML 3 ML PEN SC SCH (10:21)
[2016-10-17] MEDS: HEPARIN SOD 5000 UNIT/0.5 ML CARP SQ SCH ×2 (10:22→20:40)
--- NOTE | 2016-10-17 14:28 | Progress Note ---
Internal Med Progress Note Date of Service: Oct 17, 2016. Provider Documentation: SUBJECTIVE: Patient is seen and examined at bedside. She states pain at the wounds bilaterally is better. Also sates diarrhea is improving. She is able to ambulate to the restroom. Denies any chest pain, SOB, fever, chills. OBJECTIVE: Vital Signs-as noted below Physical Exam: General Appearance:Obese, no apparent distress Head: normocephalic, Atraumatic Eyes: normal inspection, EOMI, PERRLA Neck: supple, Trachea midline Respiratory/Chest: Normal breath sounds, CTA Cardiovascular: S1, S2, Tachycardia, No murmur Abdomen/GI:Soft, Non tender, Bowel sounds present Extremities/Musculoskelatal:erythematous b/l LE, Trace edema, Wounds vacs in place bilaterally Neurologic/Psych:AAOX3, grossly no focal neurological deficits Skin: normal color, warm Lab data as noted below. ASSESSMENT & PLAN: BILATERAL HIP WOUNDS leukocytosis but afebrile Lactate wnl S/p debridement of BL LE buttock wounds on Aug 30, 2016 Continue wound vacs and wound care Right hip wound culture 10/08/16: grew multi drug resistant Klebsiella Continue IV antibiotics per ID ID on board Blood cultures-No growth to date CKD STAGE IV Baseline Cr low 2's Cr:2.2 today Stable Monitor renal function COUGH CXR:: Small right pleural effusion and Pulmonary vascular congestion Influenza negative Monitor for now on IV antibiotics C DIFF DIARRHEA Improving- Has one BM today Continue PO Vancomycin taper- on 125 mg daily through 10/23/16 DM II Continue Toujeo Insulin sliding scale coverage Monitor BSG AC HS Prior A1c was 7.5 in Jul 2016 ATRIAL FIBRILLATION Continue metoprolol Coumadin previously discontinued due to hematoma/ fall risk Per cardiology note previously: risk greater than benefit for anticoagulation Conrtinue aspirin CHRONIC HYPOXEMIC RESPIRATORY FAILURE Continue chronic supplemental O2 3 liters NC RIGHT SIDED HEART FAILURE/ PULMONARY HTN Currently Euvolemic Last Echo: LV EF 55-60%, RV moderately dilated with moderate to severe reduced function, biatrial dilation, severely elevated RV systolic pressure, severely dilated IVC Continue torsemide and metolazone COPD Not in exacerbation Continue home meds OBESITY HYPOVENTILATION Continue BiPAP HS HYPOTHYROIDISM Continue levothyroxine HYPERLIPIDEMIA Continue statin DVT PROPHYLAXIS Heparin SQ CODE STATUS Full code DISPOSITION: May need placement for IV antibiotics Vital Signs: Date Time Temp Pulse Resp B/P Pulse Ox O2 Delivery O2 Flow Rate FiO2 10/17/16 08:00 89 Nasal Cannula 3.0 10/17/16 07:37 36.7 108 20 128/74 91 Nasal Cannula 3.0 10/17/16 00:50 Nasal Cannula 3.0 10/17/16 00:00 36.7 100 16 137/83 92 Nasal Cannula 3.0 10/16/16 15:40 Nasal Cannula 3.0 10/16/16 15:20 36.2 100 20 136/80 92 Nasal Cannula 3.0 Lab Results: Results Past 24 Hours Test 10/16/16 17:00 10/16/16 20:56 10/17/16 05:50 10/17/16 07:51 Range/Units Bedside Glucose 162 177 106 70-90 mg/dl Sodium Level 143 136-145 mmol/L Potassium Level 3.4 3.5-5.1 mmol/L Chloride Level 103 98-107 mmol/L Carbon Dioxide Level 28 21-32 mmol/L Anion Gap 12.0 3-11 mmol/L Blood Urea Nitrogen 45 7-18 mg/dl Creatinine 2.20 0.60-1.20 mg/dl Est Creatinine Clear Calc Drug Dose 34.4 ml/min Estimated GFR () 27.0 Estimated GFR (Non- 23.3 BUN/Creatinine Ratio 20.4 10-20 Random Glucose 99 70-99 mg/dl Calcium Level 9.1 8.5-10.1 mg/dl Test 10/17/16 12:07 Range/Units Bedside Glucose 134 70-90 mg/dl
--- NOTE | 2016-10-17 14:33 | Progress Note ---
Subjective Date of Service: Oct 17, 2016. Subjective afebrile overnight. Remains on Avycaz for b/l hip wound infections, most recent culture 10/08 with MDR kleb. Blood cultures negative to date. creat improved today to 2.2, ambulating in room. Problem List Medical Problems: (1) FRED (acute kidney injury) Status: Acute (2) CHF (congestive heart failure) Status: Acute (3) Congestive heart failure Status: Acute (4) Hypoxia Status: Acute (5) Renal insufficiency Status: Acute (6) Sepsis Status: Acute (7) Sepsis associated hypotension Status: Acute (8) Severe sepsis with acute organ dysfunction Status: Acute (9) Shortness of breath Status: Acute Objective Vital Signs Date Time Temp Pulse Resp B/P Pulse Ox O2 Delivery O2 Flow Rate FiO2 10/17/16 08:00 89 Nasal Cannula 3.0 10/17/16 07:37 36.7 108 20 128/74 91 Nasal Cannula 3.0 10/17/16 00:50 Nasal Cannula 3.0 10/17/16 00:00 36.7 100 16 137/83 92 Nasal Cannula 3.0 10/16/16 15:40 Nasal Cannula 3.0 10/16/16 15:20 36.2 100 20 136/80 92 Nasal Cannula 3.0 Laboratory Results Item Value Date Time Blood Culture - Preliminary Resulted 10/15/16 1305 Blood NO GROWTH TO DATE. Blood Culture - Preliminary Resulted 10/15/16 1250 Blood NO GROWTH TO DATE. Last 24 Hours Test 10/16/16 17:00 10/16/16 20:56 10/17/16 05:50 10/17/16 07:51 Bedside Glucose 162 mg/dl 177 mg/dl 106 mg/dl Sodium Level 143 mmol/L Potassium Level 3.4 mmol/L Chloride Level 103 mmol/L Carbon Dioxide Level 28 mmol/L Anion Gap 12.0 mmol/L Blood Urea Nitrogen 45 mg/dl Creatinine 2.20 mg/dl Est Creatinine Clear Calc Drug Dose 34.4 ml/min Estimated GFR () 27.0 Estimated GFR (Non- 23.3 BUN/Creatinine Ratio 20.4 Random Glucose 99 mg/dl Calcium Level 9.1 mg/dl Test 10/17/16 12:07 Bedside Glucose 134 mg/dl Assessment and Plan (1) Wound infection Assessment & Plan: continue avycaz, duration unknown but minimum 14 days, may require placement for this. No plans for surgical debridement, ok for d/c from ID standpoint when arrangements for d/c abx in place. Unsure if she will be able to return to [facility]. will need continue wound care post d/c, can follow with ID at wound center as well. (2) Pressure ulcer (3) C. difficile colitis
[2016-10-17 14:58] VITALS: BP 141/77; PULSE 101; TEMP 36.6; O2SAT 93
[2016-10-17 16:00] VITALS: O2SAT 93
[2016-10-17 22:52] VITALS: BP 128/82; PULSE 97; TEMP 36.3; O2SAT 91
[2016-10-17] MEDS: TRAMADOL HCL 50 MG TAB PO PRN (23:03)
[2016-10-18] MEDS: CEFTAZIDIME AVIBACTAM IV SCH ×2 (05:54→17:48)
[2016-10-18] MEDS: LEVOTHYROXINE 125 MCG TAB PO SCH (05:54)
[2016-10-18] MEDS: SODIUM CHLORIDE 0.9% IV SCH ×2 (05:54→17:48)
[2016-10-18 06:54] LABS: HEMATOCRIT 35.6 % (37-47); MEAN CORPUSCULAR HEMOGLOBIN 24.3 pg (25-34); MEAN CORPUSCULAR HGB CONC 28.9 g/dl (32-36); MEAN PLATELET VOLUME 9.1 fL (7.4-10.4); PLATELET COUNT 413 K/uL (130-400); RED BLOOD COUNT 4.24 M/uL (4.2-5.4); WHITE BLOOD COUNT 16.12 K/uL (4.8-10.8)
[2016-10-18 07:00] VITALS: BP 137/82; PULSE 97; O2SAT 92
[2016-10-18 07:06] LABS: BUN/CREATININE RATIO 20.5 (10-20); CREATININE 2.2 mg/dl (0.60-1.20); POTASSIUM 3.3 mmol/L (3.5-5.1)
[2016-10-18] MEDS: CHOLECALCIFEROL 1000 INTER.UNIT TAB PO SCH (09:12)
[2016-10-18] MEDS: ASPIRIN 81 MG ECTAB PO SCH (09:12)
[2016-10-18] MEDS: ATORVASTATIN 20 MG TAB PO SCH (09:12)
[2016-10-18] MEDS: CEROVITE ADV FORMULA TAB PO SCH (09:13)
[2016-10-18] MEDS: ASCORBIC ACID 500 MG TAB PO SCH ×2 (09:13→21:39)
[2016-10-18] MEDS: CYANOCOBALAMIN 500 MCG TAB (VIT B-12) PO SCH (09:13)
[2016-10-18] MEDS: TIOTROPIUM BROMIDE 5 PUFF/90 MCG INH INH SCH (09:13)
[2016-10-18] MEDS: METOPROLOL SUCC 50MG EXT REL TAB PO SCH (09:13)
[2016-10-18] MEDS: SERTRALINE HCL 50 MG TAB PO SCH (09:13)
[2016-10-18] MEDS: MAGNESIUM OXIDE 400 MG TAB PO SCH ×2 (09:13→21:39)
[2016-10-18] MEDS: GABAPENTIN 400 MG CAP PO SCH ×2 (09:14→21:38)
[2016-10-18] MEDS: POTASSIUM CHLORIDE 20 MEQ TABCR PO SCH (09:14)
[2016-10-18] MEDS: CALCITRIOL 0.25 MCG CAP PO SCH (09:14)
[2016-10-18] MEDS: PANTOprazole SOD 40 MG TAB PO SCH (09:14)
[2016-10-18] MEDS: TORSEMIDE 20 MG TAB PO SCH (09:15)
[2016-10-18] MEDS: VANCOMYCIN HCL 250 MG/5 ML SOLN PO SCH (10:06)
[2016-10-18] MEDS: RASPBERRY SYRUP 5 ML UDP PO SCH (10:06)
[2016-10-18] MEDS: PROSOURCE NOCARB 30ML/PKT PO SCH ×2 (10:06→21:36)
[2016-10-18] MEDS: INSULIN ASPART 100 UNITS/ML 3 ML PEN SC SCH ×4 (10:21→21:43)
[2016-10-18] MEDS: INSULIN GLARGINE SOLOSTAR 100 UNITS/ML 3 ML PEN SC SCH (10:22)
[2016-10-18] MEDS: HEPARIN SOD 5000 UNIT/0.5 ML CARP SQ SCH ×2 (10:22→21:43)
--- NOTE | 2016-10-18 11:15 | Progress Note ---
Subjective Date of Service: Oct 18, 2016. Subjective remains afebrile, wbc decreased to 16, creat improving. remains on avycaz, tolerating well. blood cultures remain negative, Problem List Medical Problems: (1) FRED (acute kidney injury) Status: Acute (2) CHF (congestive heart failure) Status: Acute (3) Congestive heart failure Status: Acute (4) Hypoxia Status: Acute (5) Renal insufficiency Status: Acute (6) Sepsis Status: Acute (7) Sepsis associated hypotension Status: Acute (8) Severe sepsis with acute organ dysfunction Status: Acute (9) Shortness of breath Status: Acute Objective Vital Signs Date Time Temp Pulse Resp B/P Pulse Ox O2 Delivery O2 Flow Rate FiO2 10/18/16 07:00 97 16 137/82 92 Nasal Cannula 4.0 10/17/16 23:15 Nasal Cannula 3.0 10/17/16 22:52 36.3 97 18 128/82 91 Nasal Cannula 3.0 10/17/16 20:00 Room Air 3.0 10/17/16 16:00 93 Room Air 3.0 10/17/16 14:58 36.6 101 16 141/77 93 Room Air Laboratory Results Item Value Date Time Blood Culture - Preliminary Resulted 10/15/16 1250 Blood NO GROWTH TO DATE. Blood Culture - Preliminary Resulted 10/15/16 1305 Blood NO GROWTH TO DATE. Last 24 Hours Test 10/17/16 12:07 10/17/16 16:47 10/17/16 20:41 10/18/16 05:44 Bedside Glucose 134 mg/dl 126 mg/dl 146 mg/dl White Blood Count 16.12 K/uL Red Blood Count 4.24 M/uL Hemoglobin 10.3 g/dL Hematocrit 35.6 % Mean Corpuscular Volume 84.0 fL Mean Corpuscular Hemoglobin 24.3 pg Mean Corpuscular Hemoglobin Concent 28.9 g/dl RDW Standard Deviation 59.1 fL RDW Coefficient of Variation 19.2 % Platelet Count 413 K/uL Mean Platelet Volume 9.1 fL Sodium Level 143 mmol/L Potassium Level 3.3 mmol/L Chloride Level 102 mmol/L Carbon Dioxide Level 29 mmol/L Anion Gap 12.0 mmol/L Blood Urea Nitrogen 45 mg/dl Creatinine 2.20 mg/dl Est Creatinine Clear Calc Drug Dose 34.4 ml/min Estimated GFR () 27.0 Estimated GFR (Non- 23.3 BUN/Creatinine Ratio 20.5 Random Glucose 111 mg/dl Calcium Level 9.0 mg/dl Test 10/18/16 07:29 Bedside Glucose 110 mg/dl Assessment and Plan (1) Wound infection Assessment & Plan: continue avycaz, duration unknown but minimum 14 days, may require placement for this. No plans for surgical debridement, ok for d/c from ID standpoint when arrangements for d/c abx in place. Unsure if she will be able to return to [facility]. will need continue wound care post d/c, can follow with ID at wound center as well. (2) Pressure ulcer (3) C. difficile colitis
[2016-10-18] MEDS: HYDROCODONE/ACETAMOPHEN 5/325MG TAB PO PRN ×2 (13:42→21:46)
[2016-10-18] MEDS: LORAZEPAM 0.5 MG TAB PO PRN (13:47)
[2016-10-18 15:52] VITALS: BP 126/81; PULSE 101; TEMP 36.3
[2016-10-18 16:00] VITALS: O2SAT 92
[2016-10-18] MEDS ORDERED: POTASSIUM CHLORIDE 20 MEQ TABCR PO ONE (20:00)
--- NOTE | 2016-10-18 20:05 | Progress Note ---
Internal Med Progress Note Date of Service: Oct 18, 2016. Provider Documentation: SUBJECTIVE: Patient is seen and examined at bedside. Clinically no significant change from yesterday. No new symptoms. OBJECTIVE: Vital Signs-as noted below Physical Exam: General Appearance:Obese, no apparent distress Head: normocephalic, Atraumatic Eyes: normal inspection, EOMI, PERRLA Neck: supple, Trachea midline Respiratory/Chest: Normal breath sounds, CTA Cardiovascular: S1, S2, Tachycardia, No murmur Abdomen/GI:Soft, Non tender, Bowel sounds present Extremities/Musculoskelatal:erythematous b/l LE, Trace edema, Wounds vacs in place bilaterally Neurologic/Psych:AAOX3, grossly no focal neurological deficits Skin: normal color, warm Lab data as noted below. ASSESSMENT & PLAN: BILATERAL HIP WOUNDS leukocytosis trending down Lactate wnl S/p debridement of BL LE buttock wounds on Aug 30, 2016 Continue wound vacs and wound care Right hip wound culture 10/08/16: grew multi drug resistant Klebsiella Continue IV antibiotics per ID ID on board Blood cultures-No growth to date May need atleast 14 day course of antibiotics. No plans for surgical debridement CKD STAGE IV Baseline Cr low 2's Cr:2.2 today Stable Monitor renal function COUGH CXR:: Small right pleural effusion and Pulmonary vascular congestion Influenza negative Monitor for now Resolved C DIFF DIARRHEA Improving Continue PO Vancomycin taper- on 125 mg daily through 10/23/16 DM II Continue Toujeo Insulin sliding scale coverage Monitor BSG AC HS Prior A1c was 7.5 in Jul 2016 ATRIAL FIBRILLATION Continue metoprolol Coumadin previously discontinued due to hematoma/ fall risk Per cardiology note previously: risk greater than benefit for anticoagulation Conrtinue aspirin CHRONIC HYPOXEMIC RESPIRATORY FAILURE Continue chronic supplemental O2 3 liters NC RIGHT SIDED HEART FAILURE/ PULMONARY HTN Currently Euvolemic Last Echo: LV EF 55-60%, RV moderately dilated with moderate to severe reduced function, biatrial dilation, severely elevated RV systolic pressure, severely dilated IVC Continue torsemide and metolazone COPD Not in exacerbation Continue home meds OBESITY HYPOVENTILATION Continue BiPAP HS HYPOTHYROIDISM Continue levothyroxine HYPERLIPIDEMIA Continue statin DVT PROPHYLAXIS Heparin SQ CODE STATUS Full code DISPOSITION: Needs placement for IV antibiotics guest services officer consulted Vital Signs: Date Time Temp Pulse Resp B/P Pulse Ox O2 Delivery O2 Flow Rate FiO2 10/18/16 16:00 92 Nasal Cannula 3.0 10/18/16 15:52 36.3 101 16 126/81 10/18/16 08:00 Nasal Cannula 3.0 10/18/16 07:00 97 16 137/82 92 Nasal Cannula 4.0 10/17/16 23:15 Nasal Cannula 3.0 10/17/16 22:52 36.3 97 18 128/82 91 Nasal Cannula 3.0 Lab Results: Results Past 24 Hours Test 10/17/16 20:41 10/18/16 05:44 10/18/16 07:29 10/18/16 12:02 Range/Units Bedside Glucose 146 110 199 70-90 mg/dl White Blood Count 16.12 4.8-10.8 K/uL Red Blood Count 4.24 4.2-5.4 M/uL Hemoglobin 10.3 12.0-16.0 g/dL Hematocrit 35.6 37-47 % Mean Corpuscular Volume 84.0 80-100 fL Mean Corpuscular Hemoglobin 24.3 25-34 pg Mean Corpuscular Hemoglobin Concent 28.9 32-36 g/dl RDW Standard Deviation 59.1 36.4-46.3 fL RDW Coefficient of Variation 19.2 11.5-14.5 % Platelet Count 413 130-400 K/uL Mean Platelet Volume 9.1 7.4-10.4 fL Sodium Level 143 136-145 mmol/L Potassium Level 3.3 3.5-5.1 mmol/L Chloride Level 102 98-107 mmol/L Carbon Dioxide Level 29 21-32 mmol/L Anion Gap 12.0 3-11 mmol/L Blood Urea Nitrogen 45 7-18 mg/dl Creatinine 2.20 0.60-1.20 mg/dl Est Creatinine Clear Calc Drug Dose 34.4 ml/min Estimated GFR () 27.0 Estimated GFR (Non- 23.3 BUN/Creatinine Ratio 20.5 10-20 Random Glucose 111 70-99 mg/dl Calcium Level 9.0 8.5-10.1 mg/dl Test 10/18/16 17:34 Range/Units Bedside Glucose 138 70-90 mg/dl
[2016-10-18 23:39] VITALS: BP 127/85; PULSE 97; TEMP 36.5; O2SAT 90
[2016-10-19] MEDS: CEFTAZIDIME AVIBACTAM IV SCH ×2 (05:43→17:38)
[2016-10-19] MEDS: LEVOTHYROXINE 125 MCG TAB PO SCH (05:43)
[2016-10-19] MEDS: SODIUM CHLORIDE 0.9% IV SCH ×2 (05:43→17:38)
[2016-10-19 06:47] LABS: BUN/CREATININE RATIO 19.7 (10-20); CALCIUM 8.9 mg/dl (8.5-10.1); CREATININE 2.2 mg/dl (0.60-1.20); POTASSIUM 3.9 mmol/L (3.5-5.1)
[2016-10-19 07:54] VITALS: BP 133/84; PULSE 100; TEMP 36.3; O2SAT 90
[2016-10-19] MEDS ORDERED: METOLAZONE 2.5 MG TAB PO SCH (09:00)
[2016-10-19] MEDS: CYANOCOBALAMIN 500 MCG TAB (VIT B-12) PO SCH (10:05)
[2016-10-19] MEDS: SERTRALINE HCL 50 MG TAB PO SCH (10:05)
[2016-10-19] MEDS: GABAPENTIN 400 MG CAP PO SCH ×2 (10:06→21:21)
[2016-10-19] MEDS: CEROVITE ADV FORMULA TAB PO SCH (10:06)
[2016-10-19] MEDS: METOPROLOL SUCC 50MG EXT REL TAB PO SCH (10:06)
[2016-10-19] MEDS: ASPIRIN 81 MG ECTAB PO SCH (10:07)
[2016-10-19] MEDS: ASCORBIC ACID 500 MG TAB PO SCH ×2 (10:08→21:21)
[2016-10-19] MEDS: ATORVASTATIN 20 MG TAB PO SCH (10:08)
[2016-10-19] MEDS: PANTOprazole SOD 40 MG TAB PO SCH (10:09)
[2016-10-19] MEDS: MAGNESIUM OXIDE 400 MG TAB PO SCH ×2 (10:10→21:21)
[2016-10-19] MEDS: POTASSIUM CHLORIDE 20 MEQ TABCR PO SCH (10:10)
[2016-10-19] MEDS: CHOLECALCIFEROL 1000 INTER.UNIT TAB PO SCH (10:11)
[2016-10-19] MEDS: TORSEMIDE 20 MG TAB PO SCH (10:11)
[2016-10-19] MEDS: TIOTROPIUM BROMIDE 5 PUFF/90 MCG INH INH SCH (10:12)
[2016-10-19] MEDS: PROSOURCE NOCARB 30ML/PKT PO SCH ×2 (10:12→21:00)
[2016-10-19] MEDS: HEPARIN SOD 5000 UNIT/0.5 ML CARP SQ SCH ×2 (10:17→21:27)
[2016-10-19] MEDS: INSULIN GLARGINE SOLOSTAR 100 UNITS/ML 3 ML PEN SC SCH (10:18)
[2016-10-19] MEDS: INSULIN ASPART 100 UNITS/ML 3 ML PEN SC SCH ×4 (10:20→21:28)
[2016-10-19] MEDS: RASPBERRY SYRUP 5 ML UDP PO SCH (12:12)
[2016-10-19] MEDS: VANCOMYCIN HCL 250 MG/5 ML SOLN PO SCH (12:13)
[2016-10-19 14:59] VITALS: BP 125/70; PULSE 123; TEMP 36.5; O2SAT 93
--- NOTE | 2016-10-19 15:24 | Progress Note ---
Internal Med Progress Note Date of Service: Oct 19, 2016. Provider Documentation: SUBJECTIVE: Patient is seen and examined at bedside. She is tachycardic today but asymptomatic. Denies any chest pain, SOB, palpitations. Family at bedside. OBJECTIVE: Vital Signs-as noted below Physical Exam: General Appearance:Obese, no apparent distress Head: normocephalic, Atraumatic Eyes: normal inspection, EOMI, PERRLA Neck: supple, Trachea midline Respiratory/Chest: Normal breath sounds, CTA Cardiovascular: S1, S2, Tachycardia, No murmur Abdomen/GI:Soft, Non tender, Bowel sounds present Extremities/Musculoskelatal:erythematous b/l LE, Trace edema, Wounds vacs in place bilaterally Neurologic/Psych:AAOX3, grossly no focal neurological deficits Skin: normal color, warm Lab data as noted below. ASSESSMENT & PLAN: BILATERAL HIP WOUNDS leukocytosis stable. Also on prednisone Lactate wnl S/p debridement of BL LE buttock wounds on Aug 30, 2016 Continue wound vacs and wound care Right hip wound culture 10/08/16: grew multi drug resistant Klebsiella Continue IV antibiotics per ID ID on board Blood cultures-No growth to date May need atleast 14 day course of antibiotics. No plans for surgical debridement Tachycardia: H/OAfib: Not a candidate for anticoagulation from previous noted Check EKG On BB, Aspirin Last TSH:wnl CKD STAGE IV Baseline Cr low 2's Cr:2.2 today Stable Monitor renal function COUGH CXR:: Small right pleural effusion and Pulmonary vascular congestion Influenza negative Monitor for now Resolved C DIFF DIARRHEA Improving Continue PO Vancomycin taper- on 125 mg daily through 10/23/16 DM II Continue Toujeo Insulin sliding scale coverage Monitor BSG AC HS Prior A1c was 7.5 in Jul 2016 ATRIAL FIBRILLATION Continue metoprolol Coumadin previously discontinued due to hematoma/ fall risk Per cardiology note previously: risk greater than benefit for anticoagulation Continue aspirin CHRONIC HYPOXEMIC RESPIRATORY FAILURE Continue chronic supplemental O2 3 liters NC RIGHT SIDED HEART FAILURE/ PULMONARY HTN Currently Euvolemic Last Echo: LV EF 55-60%, RV moderately dilated with moderate to severe reduced function, biatrial dilation, severely elevated RV systolic pressure, severely dilated IVC Continue torsemide and metolazone COPD Not in exacerbation Continue home meds OBESITY HYPOVENTILATION Continue BiPAP HS HYPOTHYROIDISM Continue levothyroxine HYPERLIPIDEMIA Continue statin DVT PROPHYLAXIS Heparin SQ CODE STATUS Full code DISPOSITION: Needs placement for IV antibiotics developmental services worker consulted Vital Signs: Date Time Temp Pulse Resp B/P Pulse Ox O2 Delivery O2 Flow Rate FiO2 10/19/16 14:59 36.5 123 20 125/70 93 Nasal Cannula 4.0 10/19/16 10:27 Nasal Cannula 4.5 10/19/16 07:54 36.3 100 16 133/84 90 Room Air 10/18/16 23:50 Nasal Cannula 3.0 10/18/16 23:39 36.5 97 18 127/85 90 Nasal Cannula 4.0 10/18/16 19:05 Nasal Cannula 3.0 10/18/16 16:00 92 Nasal Cannula 3.0 10/18/16 15:52 36.3 101 16 126/81 Lab Results: Results Past 24 Hours Test 10/18/16 17:34 10/18/16 20:45 10/19/16 05:14 10/19/16 08:03 Range/Units Bedside Glucose 138 158 148 70-90 mg/dl Sodium Level 143 136-145 mmol/L Potassium Level 3.9 3.5-5.1 mmol/L Chloride Level 103 98-107 mmol/L Carbon Dioxide Level 30 21-32 mmol/L Anion Gap 10.0 3-11 mmol/L Blood Urea Nitrogen 43 7-18 mg/dl Creatinine 2.20 0.60-1.20 mg/dl Est Creatinine Clear Calc Drug Dose 34.4 ml/min Estimated GFR () 27.0 Estimated GFR (Non- 23.3 BUN/Creatinine Ratio 19.7 10-20 Random Glucose 126 70-99 mg/dl Calcium Level 8.9 8.5-10.1 mg/dl Test 10/19/16 11:41 Range/Units Bedside Glucose 235 70-90 mg/dl
[2016-10-19] MEDS: HYDROCODONE/ACETAMOPHEN 5/325MG TAB PO PRN (21:22)
[2016-10-19 23:19] VITALS: BP 115/73; PULSE 108; TEMP 37.1; O2SAT 92
[2016-10-20] MEDS: TRAMADOL HCL 50 MG TAB PO PRN ×2 (00:18→13:55)
[2016-10-20] MEDS: SODIUM CHLORIDE 0.9% IV SCH ×2 (05:33→16:34)
[2016-10-20] MEDS: LEVOTHYROXINE 125 MCG TAB PO SCH (05:33)
[2016-10-20] MEDS: CEFTAZIDIME AVIBACTAM IV SCH ×2 (05:33→16:34)
[2016-10-20 07:46] VITALS: BP 118/79; PULSE 106; TEMP 36.5; O2SAT 92
[2016-10-20 08:00] VITALS: O2SAT 92
[2016-10-20] MEDS: SERTRALINE HCL 50 MG TAB PO SCH (08:14)
[2016-10-20] MEDS: ASPIRIN 81 MG ECTAB PO SCH (08:15)
[2016-10-20] MEDS: ATORVASTATIN 20 MG TAB PO SCH (08:15)
[2016-10-20] MEDS: CYANOCOBALAMIN 500 MCG TAB (VIT B-12) PO SCH (08:15)
[2016-10-20] MEDS: PANTOprazole SOD 40 MG TAB PO SCH (08:15)
[2016-10-20] MEDS: ASCORBIC ACID 500 MG TAB PO SCH ×2 (08:16→20:20)
[2016-10-20] MEDS: RASPBERRY SYRUP 5 ML UDP PO SCH (08:17)
[2016-10-20] MEDS: VANCOMYCIN HCL 250 MG/5 ML SOLN PO SCH (08:17)
[2016-10-20] MEDS: TORSEMIDE 20 MG TAB PO SCH (08:19)
[2016-10-20] MEDS: TIOTROPIUM BROMIDE 5 PUFF/90 MCG INH INH SCH (08:19)
[2016-10-20] MEDS: PROSOURCE NOCARB 30ML/PKT PO SCH (08:20)
[2016-10-20] MEDS: CHOLECALCIFEROL 1000 INTER.UNIT TAB PO SCH (08:20)
[2016-10-20] MEDS: MAGNESIUM OXIDE 400 MG TAB PO SCH ×2 (08:22→20:20)
[2016-10-20] MEDS: POTASSIUM CHLORIDE 20 MEQ TABCR PO SCH (08:22)
[2016-10-20] MEDS: METOPROLOL SUCC 50MG EXT REL TAB PO SCH (08:23)
[2016-10-20] MEDS: CEROVITE ADV FORMULA TAB PO SCH (08:23)
[2016-10-20] MEDS: INSULIN GLARGINE SOLOSTAR 100 UNITS/ML 3 ML PEN SC SCH (08:42)
[2016-10-20] MEDS: HEPARIN SOD 5000 UNIT/0.5 ML CARP SQ SCH ×2 (08:43→22:13)
[2016-10-20] MEDS: GABAPENTIN 400 MG CAP PO SCH ×2 (09:18→20:20)
[2016-10-20] MEDS: INSULIN ASPART 100 UNITS/ML 3 ML PEN SC SCH ×4 (09:22→22:15)
[2016-10-20] MEDS: LORAZEPAM 0.5 MG TAB PO PRN (13:55)
[2016-10-20 15:58] VITALS: BP 157/80; PULSE 96; TEMP 36.2; O2SAT 96
--- NOTE | 2016-10-20 16:15 | Progress Note ---
Internal Med Progress Note Date of Service: Oct 20, 2016. Provider Documentation: SUBJECTIVE: Patient is seen and examined at bedside. She feels well. Complains of minimal pain at the site of wounds. Denies any chest pain, SOB, palpitations. OBJECTIVE: Vital Signs-as noted below Physical Exam: General Appearance:Obese, no apparent distress Head: normocephalic, Atraumatic Eyes: normal inspection, EOMI, PERRLA Neck: supple, Trachea midline Respiratory/Chest: Normal breath sounds, CTA Cardiovascular: S1, S2, Tachycardia, No murmur Abdomen/GI:Soft, Non tender, Bowel sounds present Extremities/Musculoskelatal:erythematous b/l LE, Trace edema, Wounds vacs in place bilaterally Neurologic/Psych:AAOX3, grossly no focal neurological deficits Skin: normal color, warm Lab data as noted below. ASSESSMENT & PLAN: BILATERAL HIP WOUNDS leukocytosis stable. Also on prednisone Lactate wnl S/p debridement of BL LE buttock wounds on Aug 30, 2016 Continue wound vacs, irrigation and wound care Right hip wound culture 10/08/16: grew multi drug resistant Klebsiella Continue IV antibiotics per ID ID on board Blood cultures-No growth to date May need atleast 14 day course of antibiotics. Debridement of wounds by on 10/19/16 CKD STAGE IV Baseline Cr low 2's Last Cr:2.2 Stable Monitor renal function COUGH CXR:: Small right pleural effusion and Pulmonary vascular congestion Influenza negative Monitor for now Resolved C DIFF DIARRHEA Diarrhea resolved Continue PO Vancomycin taper- on 125 mg daily through 10/23/16 DM II Continue Toujeo Insulin sliding scale coverage Monitor BSG AC HS Prior A1c was 7.5 in Jul 2016 ATRIAL FIBRILLATION Coumadin previously discontinued due to hematoma/ fall risk Per cardiology note previously: risk greater than benefit for anticoagulation Continue aspirin, BB CHRONIC HYPOXEMIC RESPIRATORY FAILURE Continue chronic supplemental O2 3 liters NC RIGHT SIDED HEART FAILURE/ PULMONARY HTN Currently Euvolemic Last Echo: LV EF 55-60%, RV moderately dilated with moderate to severe reduced function, biatrial dilation, severely elevated RV systolic pressure, severely dilated IVC Continue torsemide and metolazone COPD Not in exacerbation Continue home meds OBESITY HYPOVENTILATION Continue BiPAP HS HYPOTHYROIDISM Continue levothyroxine HYPERLIPIDEMIA Continue statin DVT PROPHYLAXIS Heparin SQ CODE STATUS Full code DISPOSITION: Needs placement for IV antibiotics donor services coordinator consulted Vital Signs: Date Time Temp Pulse Resp B/P Pulse Ox O2 Delivery O2 Flow Rate FiO2 10/20/16 08:00 92 Nasal Cannula 4.0 10/20/16 07:46 36.5 106 16 118/79 92 Nasal Cannula 4.0 10/19/16 23:35 Nasal Cannula 4.5 10/19/16 23:19 37.1 108 18 115/73 92 Nasal Cannula 4.5 10/19/16 19:15 Nasal Cannula 3.0 Lab Results: Results Past 24 Hours Test 10/19/16 16:58 10/19/16 20:43 10/20/16 08:10 10/20/16 12:09 Range/Units Bedside Glucose 224 159 139 204 70-90 mg/dl
[2016-10-20] MEDS: HYDROCODONE/ACETAMOPHEN 5/325MG TAB PO PRN (16:35)
[2016-10-20] MEDS: BOOST GLUCOSE CONTROL PO SCH (18:58)
[2016-10-20 23:16] VITALS: BP 115/71; PULSE 96; TEMP 36.7; O2SAT 96
[2016-10-21] MEDS: SODIUM CHLORIDE 0.9% IV SCH ×2 (05:03→17:29)
[2016-10-21] MEDS: CEFTAZIDIME AVIBACTAM IV SCH ×2 (05:03→17:29)
[2016-10-21] MEDS: LEVOTHYROXINE 125 MCG TAB PO SCH (05:03)
[2016-10-21 05:20] LABS: MEAN CELL VOLUME 84.1 fL (80-100); MEAN CORPUSCULAR HEMOGLOBIN 24.8 pg (25-34); MEAN CORPUSCULAR HGB CONC 29.5 g/dl (32-36); MEAN PLATELET VOLUME 9.1 fL (7.4-10.4); PLATELET COUNT 442 K/uL (130-400); WHITE BLOOD COUNT 17.66 K/uL (4.8-10.8)
[2016-10-21 05:42] LABS: BUN/CREATININE RATIO 21.2 (10-20); CALCIUM 9.4 mg/dl (8.5-10.1); POTASSIUM 3.8 mmol/L (3.5-5.1)
[2016-10-21 07:43] VITALS: BP 138/82; PULSE 99; TEMP 36.7; O2SAT 91
[2016-10-21] MEDS: GABAPENTIN 400 MG CAP PO SCH ×2 (09:00→21:03)
[2016-10-21] MEDS: MAGNESIUM OXIDE 400 MG TAB PO SCH ×2 (09:00→21:04)
[2016-10-21] MEDS: ATORVASTATIN 20 MG TAB PO SCH (09:01)
[2016-10-21] MEDS: POTASSIUM CHLORIDE 20 MEQ TABCR PO SCH (09:01)
[2016-10-21] MEDS: CYANOCOBALAMIN 500 MCG TAB (VIT B-12) PO SCH (09:01)
[2016-10-21] MEDS: ASPIRIN 81 MG ECTAB PO SCH (09:01)
[2016-10-21] MEDS: CALCITRIOL 0.25 MCG CAP PO SCH (09:01)
[2016-10-21] MEDS: CHOLECALCIFEROL 1000 INTER.UNIT TAB PO SCH (09:02)
[2016-10-21] MEDS: TORSEMIDE 20 MG TAB PO SCH (09:02)
[2016-10-21] MEDS: SERTRALINE HCL 50 MG TAB PO SCH (09:03)
[2016-10-21] MEDS: METOPROLOL SUCC 50MG EXT REL TAB PO SCH (09:03)
[2016-10-21] MEDS: PANTOprazole SOD 40 MG TAB PO SCH (09:03)
[2016-10-21] MEDS: ASCORBIC ACID 500 MG TAB PO SCH ×2 (09:03→21:03)
[2016-10-21] MEDS: CEROVITE ADV FORMULA TAB PO SCH (09:03)
[2016-10-21] MEDS: RASPBERRY SYRUP 5 ML UDP PO SCH (09:04)
[2016-10-21] MEDS: INSULIN ASPART 100 UNITS/ML 3 ML PEN SC SCH ×4 (09:12→21:13)
[2016-10-21] MEDS: HEPARIN SOD 5000 UNIT/0.5 ML CARP SQ SCH ×2 (09:13→21:13)
[2016-10-21] MEDS: INSULIN GLARGINE SOLOSTAR 100 UNITS/ML 3 ML PEN SC SCH (09:14)
[2016-10-21] MEDS: HYDROCODONE/ACETAMOPHEN 5/325MG TAB PO PRN ×2 (09:23→21:01)
[2016-10-21] MEDS: VANCOMYCIN HCL 250 MG/5 ML SOLN PO SCH (09:23)
[2016-10-21] MEDS: LORAZEPAM 0.5 MG TAB PO PRN (09:23)
[2016-10-21] MEDS: TIOTROPIUM BROMIDE 5 PUFF/90 MCG INH INH SCH (10:59)
--- NOTE | 2016-10-21 11:40 | CONSULTATION REPORT ---
DATE OF CONSULTATION: 10/21/2016 SUBJECTIVE: The patient is seen today for followup evaluation of stage III pressure ulcers to both hips as well as a pressure ulcer to the left lateral hip region. The patient was recently admitted to [facility] for increased management of the infectious process to these hip regions. The patient currently has no systemic complaints. The patient was recently seen in the wound clinic 4 days prior. OBJECTIVE: The patient's vital signs were reviewed and found to be unremarkable. The patient is afebrile. The ulcerative sites today show some increased granulation tissue in the base of all of the sites. There is some scattered slough present. There is no active drainage or periwound erythema noted. Measurements at these sites have not appreciably changed over the past 4 days. ASSESSMENT: Multiple stage III pressure ulcers to both hips, stage III pressure ulcer to the left thigh region. PLAN: These sites will continue to need wound VAC therapy with the patient hospitalized. We will institute irrigation VAC therapy of normal saline 10 minutes on, 2 hours off with VAC pressure and black foam at 125 mm of negative pressure. The wound VAC change will occur every other day during hospitalization. The patient will be reassessed as necessary during her hospitalization and will be also managed on an outpatient basis upon discharge as before.
[2016-10-21 16:21] VITALS: BP 126/78; PULSE 98; TEMP 36.4; O2SAT 94
--- NOTE | 2016-10-21 17:04 | Progress Note ---
Internal Med Progress Note Date of Service: Oct 21, 2016. Provider Documentation: SUBJECTIVE: Patient is seen and examined at bedside. Clinically no significant change from yesterday. Denies any chest pain, SOB, palpitations. OBJECTIVE: Vital Signs-as noted below Physical Exam: General Appearance:Obese, no apparent distress Head: normocephalic, Atraumatic Eyes: normal inspection, EOMI, PERRLA Neck: supple, Trachea midline Respiratory/Chest: Normal breath sounds, CTA Cardiovascular: S1, S2, Tachycardia, No murmur Abdomen/GI:Soft, Non tender, Bowel sounds present Extremities/Musculoskelatal:erythematous b/l LE, Trace edema, Wounds vacs in place bilaterally Neurologic/Psych:AAOX3, grossly no focal neurological deficits Skin: normal color, warm Lab data as noted below. ASSESSMENT & PLAN: BILATERAL HIP WOUNDS leukocytosis stable. Also on prednisone Lactate wnl S/p debridement of BL LE buttock wounds on Aug 30, 2016 Continue wound vacs, irrigation and wound care Right hip wound culture 10/08/16: grew multi drug resistant Klebsiella Continue IV antibiotics per ID ID on board Blood cultures-No growth to date May need atleast 14 day course of antibiotics per ID Debridement of wounds by on 10/19/16 Plan to discharge once placement available. CKD STAGE IV Baseline Cr low 2's Cr:2.0 today Stable Monitor renal function COUGH CXR:: Small right pleural effusion and Pulmonary vascular congestion Influenza negative Monitor for now Resolved C DIFF DIARRHEA Diarrhea resolved Continue PO Vancomycin taper- on 125 mg daily through 10/23/16 Had one semiformed BM today DM II Continue Toujeo Insulin sliding scale coverage Monitor BSG AC HS Prior A1c was 7.5 in Jul 2016 ATRIAL FIBRILLATION Coumadin previously discontinued due to hematoma/ fall risk Per cardiology note previously: risk greater than benefit for anticoagulation Continue aspirin, BB CHRONIC HYPOXEMIC RESPIRATORY FAILURE Continue chronic supplemental O2 3 liters NC RIGHT SIDED HEART FAILURE/ PULMONARY HTN Currently Euvolemic Last Echo: LV EF 55-60%, RV moderately dilated with moderate to severe reduced function, biatrial dilation, severely elevated RV systolic pressure, severely dilated IVC Continue torsemide and metolazone COPD Not in exacerbation Continue home meds OBESITY HYPOVENTILATION Continue BiPAP HS HYPOTHYROIDISM Continue levothyroxine HYPERLIPIDEMIA Continue statin DVT PROPHYLAXIS Heparin SQ CODE STATUS Full code DISPOSITION: Needs placement for IV antibiotics environmental services coordinator consulted Vital Signs: Date Time Temp Pulse Resp B/P Pulse Ox O2 Delivery O2 Flow Rate FiO2 10/21/16 16:21 36.4 98 19 126/78 94 Nasal Cannula 4.0 10/21/16 07:43 36.7 99 16 138/82 91 4.0 10/21/16 07:30 Nasal Cannula 3.0 10/21/16 00:20 Nasal Cannula 3.0 10/20/16 23:16 36.7 96 18 115/71 96 Nasal Cannula 2.0 Lab Results: Results Past 24 Hours Test 10/20/16 17:02 10/20/16 20:33 10/21/16 05:10 10/21/16 07:36 Range/Units Bedside Glucose 186 184 134 70-90 mg/dl White Blood Count 17.66 4.8-10.8 K/uL Red Blood Count 4.40 4.2-5.4 M/uL Hemoglobin 10.9 12.0-16.0 g/dL Hematocrit 37.0 37-47 % Mean Corpuscular Volume 84.1 80-100 fL Mean Corpuscular Hemoglobin 24.8 25-34 pg Mean Corpuscular Hemoglobin Concent 29.5 32-36 g/dl RDW Standard Deviation 58.6 36.4-46.3 fL RDW Coefficient of Variation 18.8 11.5-14.5 % Platelet Count 442 130-400 K/uL Mean Platelet Volume 9.1 7.4-10.4 fL Sodium Level 142 136-145 mmol/L Potassium Level 3.8 3.5-5.1 mmol/L Chloride Level 100 98-107 mmol/L Carbon Dioxide Level 32 21-32 mmol/L Anion Gap 10.0 3-11 mmol/L Blood Urea Nitrogen 42 7-18 mg/dl Creatinine 2.00 0.60-1.20 mg/dl Est Creatinine Clear Calc Drug Dose 37.8 ml/min Estimated GFR () 30.2 Estimated GFR (Non- 26.1 BUN/Creatinine Ratio 21.2 10-20 Random Glucose 131 70-99 mg/dl Calcium Level 9.4 8.5-10.1 mg/dl Test 10/21/16 11:51 10/21/16 16:44 Range/Units Bedside Glucose 212 191 70-90 mg/dl
[2016-10-21] MEDS: BOOST GLUCOSE CONTROL PO SCH (19:13)
[2016-10-21 23:11] VITALS: BP 126/74; PULSE 99; TEMP 36.8; O2SAT 95
[2016-10-22] MEDS: TRAMADOL HCL 50 MG TAB PO PRN ×2 (01:19→21:42)
[2016-10-22] MEDS: SODIUM CHLORIDE 0.9% IV SCH ×2 (05:13→18:58)
[2016-10-22] MEDS: CEFTAZIDIME AVIBACTAM IV SCH ×2 (05:13→18:58)
[2016-10-22] MEDS: LEVOTHYROXINE 125 MCG TAB PO SCH (05:18)
[2016-10-22 07:00] VITALS: BP 126/80; PULSE 90; TEMP 36.6; O2SAT 91
[2016-10-22] MEDS: RASPBERRY SYRUP 5 ML UDP PO SCH (08:10)
[2016-10-22] MEDS: VANCOMYCIN HCL 250 MG/5 ML SOLN PO SCH (08:11)
[2016-10-22] MEDS: ATORVASTATIN 20 MG TAB PO SCH (08:12)
[2016-10-22] MEDS: METOPROLOL SUCC 50MG EXT REL TAB PO SCH (08:12)
[2016-10-22] MEDS: CYANOCOBALAMIN 500 MCG TAB (VIT B-12) PO SCH (08:12)
[2016-10-22] MEDS: ASPIRIN 81 MG ECTAB PO SCH (08:12)
[2016-10-22] MEDS: CEROVITE ADV FORMULA TAB PO SCH (08:12)
[2016-10-22] MEDS: CHOLECALCIFEROL 1000 INTER.UNIT TAB PO SCH (08:13)
[2016-10-22] MEDS: SERTRALINE HCL 50 MG TAB PO SCH (08:13)
[2016-10-22] MEDS: ASCORBIC ACID 500 MG TAB PO SCH ×2 (08:13→21:44)
[2016-10-22] MEDS: POTASSIUM CHLORIDE 20 MEQ TABCR PO SCH (08:14)
[2016-10-22] MEDS: PANTOprazole SOD 40 MG TAB PO SCH (08:14)
[2016-10-22] MEDS: TORSEMIDE 20 MG TAB PO SCH (08:14)
[2016-10-22] MEDS: MAGNESIUM OXIDE 400 MG TAB PO SCH ×2 (08:15→21:44)
[2016-10-22] MEDS: TIOTROPIUM BROMIDE 5 PUFF/90 MCG INH INH SCH (08:15)
[2016-10-22] MEDS: GABAPENTIN 400 MG CAP PO SCH ×2 (08:16→21:44)
[2016-10-22] MEDS: INSULIN ASPART 100 UNITS/ML 3 ML PEN SC SCH ×4 (09:15→21:33)
[2016-10-22] MEDS: INSULIN GLARGINE SOLOSTAR 100 UNITS/ML 3 ML PEN SC SCH (09:16)
[2016-10-22] MEDS: HEPARIN SOD 5000 UNIT/0.5 ML CARP SQ SCH ×2 (09:17→21:50)
--- NOTE | 2016-10-22 10:39 | Progress Note ---
Internal Med Progress Note Date of Service: Oct 22, 2016. Provider Documentation: SUBJECTIVE: Patient is seen and examined at bedside. Family at bedside. States no diarrhea this morning. Feels well. Offers no other complaints. OBJECTIVE: Vital Signs-as noted below Physical Exam: General Appearance:Obese, no apparent distress Head: normocephalic, Atraumatic Eyes: normal inspection, EOMI, PERRLA Neck: supple, Trachea midline Respiratory/Chest: Normal breath sounds, CTA Cardiovascular: S1, S2, Irregularly Irregular, No murmur Abdomen/GI:Soft, Non tender, Bowel sounds present Extremities/Musculoskelatal:erythematous b/l LE, Trace edema, Wounds vacs in place bilaterally Neurologic/Psych:AAOX3, grossly no focal neurological deficits Skin: normal color, warm Lab data as noted below. ASSESSMENT & PLAN: BILATERAL HIP WOUNDS leukocytosis stable. Also on prednisone Lactate wnl S/p debridement of BL LE buttock wounds on Aug 30, 2016 Continue wound vacs, irrigation and wound care Right hip wound culture 10/08/16: grew multi drug resistant Klebsiella Continue IV antibiotics per ID: IV Avycaz till 10/30/16 ID on board Blood cultures-No growth to date Debridement of wounds by on 10/19/16 Plan to discharge once placement available. CKD STAGE IV Baseline Cr low 2's Cr:2.0 today Stable Monitor renal function C DIFF DIARRHEA Continue PO Vancomycin taper- on 125 mg daily till 10/23/16 Had no BM today Clinically much improved DM II Continue Toujeo Insulin sliding scale coverage Monitor BSG AC HS Prior A1c was 7.5 in Jul 2016 ATRIAL FIBRILLATION Coumadin previously discontinued due to hematoma/ fall risk Per cardiology note previously: risk greater than benefit for anticoagulation Continue aspirin, BB CHRONIC HYPOXEMIC RESPIRATORY FAILURE Continue chronic supplemental O2 3 liters NC Titrate oxygen down as able RIGHT SIDED HEART FAILURE/ PULMONARY HTN Currently Euvolemic Last Echo: LV EF 55-60%, RV moderately dilated with moderate to severe reduced function, biatrial dilation, severely elevated RV systolic pressure, severely dilated IVC Continue torsemide and metolazone COPD Continue home meds, Oxygen Stable No signs of exacerbation OBESITY HYPOVENTILATION Continue BiPAP HS HYPOTHYROIDISM Continue levothyroxine HYPERLIPIDEMIA Continue statin DVT PROPHYLAXIS Heparin SQ CODE STATUS Full code DISPOSITION: Needs placement for IV antibiotics services account manager consulted Plan to DC when placement available Needs follow up with PCP, ID () and wound care () at [facility] Vital Signs: Date Time Temp Pulse Resp B/P Pulse Ox O2 Delivery O2 Flow Rate FiO2 10/22/16 07:00 36.6 90 18 126/80 91 Room Air 10/22/16 00:35 Nasal Cannula 4.5 10/21/16 23:11 36.8 99 16 126/74 95 Nasal Cannula 4.5 10/21/16 22:56 Nasal Cannula 4.0 10/21/16 16:21 36.4 98 19 126/78 94 Nasal Cannula 4.0 Lab Results: Results Past 24 Hours Test 10/21/16 11:51 10/21/16 16:44 10/21/16 20:42 10/22/16 08:12 Range/Units Bedside Glucose 212 191 279 163 70-90 mg/dl
[2016-10-22 15:25] VITALS: O2SAT 91
[2016-10-22 15:38] VITALS: BP 108/62; PULSE 106; TEMP 36.4; O2SAT 91
[2016-10-22] MEDS: BOOST GLUCOSE CONTROL PO SCH (18:59)
[2016-10-22 22:43] VITALS: BP 122/79; PULSE 103; TEMP 36.7; O2SAT 93
[2016-10-23] MEDS: CEFTAZIDIME AVIBACTAM IV SCH (05:16)
[2016-10-23] MEDS: SODIUM CHLORIDE 0.9% IV SCH (05:16)
[2016-10-23] MEDS: LEVOTHYROXINE 125 MCG TAB PO SCH (05:17)
[2016-10-23 07:30] VITALS: O2SAT 93
[2016-10-23 07:49] VITALS: BP 148/79; PULSE 86; TEMP 36.6; O2SAT 93
[2016-10-23 07:50] VITALS: O2SAT 93
[2016-10-23] MEDS: TIOTROPIUM BROMIDE 5 PUFF/90 MCG INH INH SCH (08:49)
[2016-10-23] MEDS: TORSEMIDE 20 MG TAB PO SCH (08:54)
[2016-10-23] MEDS: ASPIRIN 81 MG ECTAB PO SCH (08:57)
[2016-10-23] MEDS: POTASSIUM CHLORIDE 20 MEQ TABCR PO SCH (08:59)
[2016-10-23] MEDS: ATORVASTATIN 20 MG TAB PO SCH (09:03)
[2016-10-23] MEDS: MAGNESIUM OXIDE 400 MG TAB PO SCH (09:04)
[2016-10-23] MEDS: CEROVITE ADV FORMULA TAB PO SCH (09:05)
[2016-10-23] MEDS: GABAPENTIN 400 MG CAP PO SCH (09:06)
[2016-10-23] MEDS: PANTOprazole SOD 40 MG TAB PO SCH (09:10)
[2016-10-23] MEDS: METOPROLOL SUCC 50MG EXT REL TAB PO SCH (09:14)
[2016-10-23] MEDS: CYANOCOBALAMIN 500 MCG TAB (VIT B-12) PO SCH (09:16)
[2016-10-23] MEDS: ASCORBIC ACID 500 MG TAB PO SCH (09:18)
[2016-10-23] MEDS: CHOLECALCIFEROL 1000 INTER.UNIT TAB PO SCH (09:22)
[2016-10-23] MEDS: SERTRALINE HCL 50 MG TAB PO SCH (09:23)
[2016-10-23] MEDS: INSULIN ASPART 100 UNITS/ML 3 ML PEN SC SCH ×2 (10:09→13:33)
[2016-10-23] MEDS ORDERED: LORA0.5T12 PO ×2 (10:10)
[2016-10-23] MEDS ORDERED: [UNRECOGNIZED DRUG - CODE] IV ×2 (10:10)
[2016-10-23] MEDS: INSULIN GLARGINE SOLOSTAR 100 UNITS/ML 3 ML PEN SC SCH (10:10)
[2016-10-23] MEDS ORDERED: HYDR-3419 PO ×2 (10:10)
[2016-10-23] MEDS: HEPARIN SOD 5000 UNIT/0.5 ML CARP SQ SCH (10:12)
--- NOTE | 2016-10-23 10:14 | Discharge Instructions ---
Discharge Instructions Admission Reason for Admission: Infected Right Hip Wound; Cdiff Discharge Discharge Diagnosis / Problem: Infected hip wounds Discharge Goals Goal(s): Improve disease control Activity Recommendations Activity Limitations: resume your previous activity . Instructions / Follow-Up Instructions / Follow-Up Please follow up with the Dr. Mejía and Dr. [facility] on October [facility] at 9:00am. Antibiotic Ceftazidime-Avibactam to continue until at least 10/30/16. Patient ambulated ~150' total with rolling walker, close supervision/CGA x 1 and close wheelchair follow with assist from P.T. Please encourage ambulation with walker. Current Hospital Diet Patient's current hospital diet: Diabetes Type 2 Diet, AHA Diet (Heart Healthy) Discharge Diet Recommended Diet: AHA Diet (Heart Healthy), Diabetes Type 2 Diet Pending Studies Studies pending at discharge: no Laboratory Results Hemoglobin A1c Test 08/11/16 06:05 Range/Units Estimated Average Glucose 169 mg/dl Hemoglobin A1c 7.5 H 4.5-5.6 % Medical Emergencies . Who to Call and When: Medical Emergencies: If at any time you feel your situation is an emergency, please call 911 immediately. . Non-Emergent Contact Non-Emergency issues call your: Primary Care Provider . . "Provider Documentation" section prepared by Madina Funes. VTE Core Measure Inpt VTE Proph given/why not?: Unfractionated heparin SQ
[2016-10-23] MEDS: CALCITRIOL 0.25 MCG CAP PO SCH (10:20)
[2016-10-23] MEDS: HYDROCODONE/ACETAMOPHEN 5/325MG TAB PO PRN (11:29)
[2016-10-23] MEDS: LORAZEPAM 0.5 MG TAB PO PRN (11:29)
[2016-10-23 11:54] VITALS: BP 148/79; PULSE 86; TEMP 36.6; O2SAT 93
--- NOTE | 2016-10-23 19:36 | Discharge Summary ---
Discharge Summary Admission Date: Oct 15, 2016 at 11:28 Discharge Date: Oct 23, 2016 Discharge Disposition: [facility] facility Principal Diagnosis: Infected bilateral hip wounds Consultations: Wound care Infectious disease Medication Reconciliation New Medications: Ceftazidime-Avibactam Sodium (Avycaz 2-0.5 gm) 1 Inj Inj 0.94 GM IV Q12 for 8 Days Changed Medications: Hydrocodon/Acetaminophen 5MG/300MG (Vicodin (5MG/300MG)) 1 Tab Tab 1 TAB PO Q6H PRN for Pain for 10 Days, #40 TAB (Changed from: 20; 5; take 2 tablets prior 1 hour prior to wound vac change and PRN pain) take 2 tablets 1 hour prior to wound vac change and PRN pain Continued Medications: Acetaminophen Tab (Tylenol) 325 Mg Tab 650 MG PO Q6H PRN for Pain, TAB Albuterol (Proair Hfa) Aers 2 PUFFS PO QID PRN for Shortness of Breath Ascorbic Acid (Vitamin C) 500 Mg Tab 500 MG PO BID Aspirin Enteric Coated (Ecotrin Or Generic *) 81 Mg Ectab 81 MG PO DAILY, 0 Refills Atorvastatin (Lipitor) 40 Mg Tab 40 MG PO DAILY, TAB Calcitriol (Rocaltrol Cap) 0.25 Mcg Cap 0.25 MCG PO UD, CAP MWF Cholecalciferol (Vitamin D) 1,000 Inter.unit Tab 2000 INTER.UNIT PO DAILY, TAB Cyanocobalamin (Vitamin B-12) 1,000 Mcg Tab 1000 MCG PO DAILY, TAB Gabapentin (Neurontin) 400 Mg Cap 400 MG PO BID, 0 Refills Heparin Sodium (Porcine) (Heparin Sodium) 5,000 Unit/Ml Inj 5000 UNITS SQ BID Insulin Aspart (Novolog Penfill) 100 Unit/ Inj 3 UNITS SC AC, INJ plus SSI Insulin Glargine (Toujeo Solostar) 300 Unit/Ml Inj 20 UNITS SQ DAILY, #1 Levothyroxine Sodium (Synthroid) 125 Mcg Tab 125 MCG PO DAILY, TAB Lorazepam (Lorazepam) 0.5 Mg Tab 1 TAB PO UD for 10 Days, #30 TAB (This prescription has been renewed) 1 tablet 1 hour prior to wound vac changes Magnesium Oxide (Mag-Ox) 400 Mg Tab 400 MG PO BID, TAB Metolazone (Zaroxolyn) 2.5 Mg Tab 2.5 MG PO WK, TAB Metoprolol Succinate (Toprol Xl) 50 Mg Tab 50 MG PO DAILY, #30 TAB Multiple Vitamins W/ Minerals (Therems M) 1 Tab Tab 1 TAB PO DAILY Pantoprazole (Protonix) 20 Mg Tab 20 MG PO DAILY, 0 Refills Potassium Chloride Microencaps (Potassium Chloride Er) 20 Meq Tab 1 TAB PO DAILY for 30 Days, #30 TAB 5 Refills Prednisone (Prednisone) 5 Mg Tab 5 MG PO DAILY, TAB Sertraline (Zoloft) 100 Mg Tab 150 MG PO DAILY for 90 Days, #135 TAB 1 Refill Tiotropium [place] (Spiriva Handihaler) 18 Mcg/ Aerp 1 CAP INH DAILY, 0 Refills Torsemide (Demadex) 100 Mg Tab 100 MG PO DAILY, TAB [protein powder] () 1 DOSE PO TID Discontinued Medications: Piperacillin Sodium-Tazobactam (Zosyn) 1 Inj Inj 2.25 GM IV Q6H last dose 10/24/16 Vancomycin HCl (Vancomycin HCl) 250 Mg/5 Ml Susp 125 MG PO DAILY last dose on 10/23/16 Admission Information HPI (per Admitting provider): This is a 61 year old female with PMH of DM type 2, chronic hypoxic respiratory failure, CKD stage IV, right sided heart failure, pulmonary hypertension, obesity hypoventilation, atrial fibrillation, and other problems listed below who presents as a direct admission from Dr. Mcduffie for right hip wound infection. Patient was recently hospitalized from Aug 27-2015 for bilateral hip wound infection s/p debridement August 30, treated with Avycaz and discharged on IV Zosyn via PICC line. She was also found to be C. diff positive and discharged on PO vancomycin. Patient was discharged to [facility]. She followed up with Bird Akhtar PA-C and with Dr. Houston as an outpatient who added metolazone 2.5 mg weekly. She is following with wound care and ID. She has wound vacs on the bilateral hips. She additionally has wounds on her buttocks and right thigh. On 10/08/16 she had wound culture of the right hip which grew MDR Klebsiella. Patient states she has been feeling tired. Mobility is limited to transfers to and from wheelchair. She also notes a cough with yellow sputum x approximately 1 month. She states diarrhea is improving- currently having 4 BM a day which are becoming more formed. She has occasional abdominal cramps. Daughter states her BLLE edema is improved. She denies fever, chills, rhinorrhea, chest pain, wheezing, SOB, N/V, urinary changes. Physical Exam (per Admitting): General Appearance: no apparent distress, + obese, + pertinent finding ( alert, obese, chronically ill appearing 61 year old female, sitting in wheelchair, daughter at bedside) Head: normocephalic, atraumatic Eyes: normal inspection, sclerae normal ENT: hearing grossly normal Neck: supple, trachea midline Respiratory/Chest: lungs clear, normal breath sounds, no respiratory distress, + pertinent finding (on chronic oxygen 3 liters nasal cannula) Cardiovascular: regular rate, rhythm, no murmur Abdomen/GI: normal bowel sounds, non tender, soft Extremities/Musculoskelatal: no calf tenderness, + pertinent finding (trace pretibial edema bilaterally- improved as per daughter at bedside) Neurologic/Psych: alert, normal mood/affect, oriented x 3, + pertinent finding (grossly nonfocal) Skin: warm/dry, + pertinent finding (wound vac's on bilateral hips with surrounding erythema, 1 cm ulceration on right thigh with white base, multiple tiny superficial ulcerations on medial buttocks) Hospital Course BILATERAL HIP WOUNDS Leukocytosis remained stable Lactate normal Continue wound vacs, irrigation and wound care Right hip wound culture 10/08/16: grew multi drug resistant Klebsiella Continue IV antibiotics per ID: IV Avycaz till 10/30/16 Blood cultures-No growth to date Debridement of wounds by on 10/19/16 CKD STAGE IV Baseline Cr low 2's Stable C DIFF DIARRHEA Completed course of PO Vancomycin taper DM II Continued on outpatient insulin regimen ATRIAL FIBRILLATION Per cardiology note previously: risk greater than benefit for anticoagulation Continue aspirin, BB CHRONIC HYPOXEMIC RESPIRATORY FAILURE Continue chronic supplemental O2 3 liters NC RIGHT SIDED HEART FAILURE/ PULMONARY HTN Currently Euvolemic Last Echo: LV EF 55-60%, RV moderately dilated with moderate to severe reduced function, biatrial dilation, severely elevated RV systolic pressure, severely dilated IVC Continue torsemide and metolazone OBESITY HYPOVENTILATION Continue BiPAP HS HYPOTHYROIDISM Continue levothyroxine HYPERLIPIDEMIA Continue statin DVT PROPHYLAXIS Heparin SQ CODE STATUS Full code DISPOSITION: child and family services worker consulted - discharge to [facility] Follow up with ID () and wound care () PE on discharge: General- awake; alert; NAD Eyes- EOMI; no scleral icterus Neck- no stridor; trachea midline Lungs- CTA bilaterally; no wheezes/crackles Heart- RRR; no m/r/g Abdomen- obese; soft; NT; nBS Back- no gross abnormalities Extremities- no deformity; no c/c/e Neuro- no gross focal deficits Skin- bilateral hip wound vacs c/d/i . Total time spent on discharge = This includes examination of the patient, discharge planning, medication reconciliation, and communication with other providers. Discharge Instructions Discharge Instructions Admission Reason for Admission: Infected Right Hip Wound; Cdiff Discharge Discharge Diagnosis / Problem: Infected hip wounds Discharge Goals Goal(s): Improve disease control Activity Recommendations Activity Limitations: resume your previous activity . Instructions / Follow-Up Instructions / Follow-Up Please follow up with the Dr. Mejía and Dr. [facility] on October [facility] at 9:00am. Antibiotic Ceftazidime-Avibactam to continue until at least 10/30/16. Patient ambulated ~150' total with rolling walker, close supervision/CGA x 1 and close wheelchair follow with assist from P.T. Please encourage ambulation with walker. Current Hospital Diet Patient's current hospital diet: Diabetes Type 2 Diet, AHA Diet (Heart Healthy) Discharge Diet Recommended Diet: AHA Diet (Heart Healthy), Diabetes Type 2 Diet Pending Studies Studies pending at discharge: no Laboratory Results Hemoglobin A1c Test 08/11/16 06:05 Range/Units Estimated Average Glucose 169 mg/dl Hemoglobin A1c 7.5 H 4.5-5.6 % Medical Emergencies . Who to Call and When: Medical Emergencies: If at any time you feel your situation is an emergency, please call 911 immediately. . Non-Emergent Contact Non-Emergency issues call your: Primary Care Provider . . "Provider Documentation" section prepared by Madina Funes. VTE Core Measure Inpt VTE Proph given/why not?: Unfractionated heparin SQ Additional Copies To Dewayne Ames
[2016-12-16] MEDS ORDERED: [UNRECOGNIZED DRUG - CODE] IV (14:19)
[2017-02-06] MEDS ORDERED: CPR750 PO (14:53)
[2017-02-06] MEDS ORDERED: AMOX875T PO (14:53)
[2017-03-29] MEDS ORDERED: NUTRMIS PO (17:49)
[2017-03-29] MEDS ORDERED: SNTO30 EXT (17:49)
[2017-04-29] MEDS ORDERED: ATOR-24 PO ×2 (02:35)
[2017-04-29] MEDS ORDERED: PRED-301 PO ×2 (02:48)
[2017-04-29] MEDS ORDERED: LEVO125T72 PO ×2 (09:15)
[2017-04-29] MEDS ORDERED: CYAN10005 PO ×2 (09:18)
[2017-04-29] MEDS ORDERED: MAGN400T5 PO ×2 (10:32)
[2017-04-29] MEDS ORDERED: CALC0.2510 PO ×2 (10:32)
[2017-04-29] MEDS ORDERED: SPRIN/30 INH (12:03)
[2017-04-29] MEDS ORDERED: CMD/25 PO (12:03)
[2017-04-29] MEDS ORDERED: NVLG SC (12:03)
[2017-04-29] MEDS ORDERED: INSDGIPEN SC (12:03)
[2017-04-29] MEDS ORDERED: DOCU-94 PO (12:03)
[2017-04-29] MEDS ORDERED: CHOL2000 PO (12:03)
[2017-04-29] MEDS ORDERED: ASPI81TA28 PO (12:03)
[2017-04-29] MEDS ORDERED: OXGN (12:03)
[2017-04-29] MEDS ORDERED: B-CO1TAB73 PO (12:03)
[2017-04-29] MEDS ORDERED: WARF5TAB90 PO (12:03)
[2017-04-29] MEDS ORDERED: ASCA500 PO ×2 (13:18)
[2017-04-29] MEDS ORDERED: SERT-234 PO ×2 (13:18)
[2017-04-29] MEDS ORDERED: PRT/20 PO ×2 (16:33)
[2017-04-29] MEDS ORDERED: GABA1CAP5 PO ×2 (16:34)
[2017-05-05] MEDS ORDERED: AMOX500T PO (17:15)
[2017-05-05] MEDS ORDERED: CIPR1TAB11 PO (17:15)
[2017-05-30] MEDS ORDERED: LVQ500 PO (17:03)
[2017-06-12] MEDS ORDERED: CIPR1TAB11 PO (15:05)
[2017-06-12] MEDS ORDERED: AMOX500T PO (15:05)
== END 2016-10-23 14:00 | DRG 592 ==
LOC: UNDOADMIN 11:28 → C.MSN 11:28
PROVIDERS: ADMIT Internal Medicine; ATTEND Internal Medicine
DX: L89.213 Pressure ulcer of right hip, stage 3 (principal); I13.0 Hypertensive heart and chronic kidney disease with heart failure and stage 1 through stage 4 chronic kidney disease, or unspecified chronic kidney disease; N18.4 Chronic kidney disease, stage 4 (severe); A04.7 Enterocolitis due to Clostridium difficile; J96.11 Chronic respiratory failure with hypoxia; E66.2 Morbid (severe) obesity with alveolar hypoventilation; Z68.42 Body mass index [BMI] 45.0-49.9, adult; L89.223 Pressure ulcer of left hip, stage 3; L89.893 Pressure ulcer of other site, stage 3; B96.1 Klebsiella pneumoniae [K. pneumoniae] as the cause of diseases classified elsewhere; Z16.24 Resistance to multiple antibiotics; R05 Cough; E11.22 Type 2 diabetes mellitus with diabetic chronic kidney disease; E11.43 Type 2 diabetes mellitus with diabetic autonomic (poly)neuropathy; I48.91 Unspecified atrial fibrillation; I50.9 Heart failure, unspecified; I27.2 Other secondary pulmonary hypertension; J44.9 Chronic obstructive pulmonary disease, unspecified; E03.9 Hypothyroidism, unspecified; E78.5 Hyperlipidemia, unspecified; Z99.81 Dependence on supplemental oxygen; Z79.01 Long term (current) use of anticoagulants; Z79.2 Long term (current) use of antibiotics; Z79.4 Long term (current) use of insulin; Z79.52 Long term (current) use of systemic steroids; Z79.82 Long term (current) use of aspirin; Z79.899 Other long term (current) drug therapy; Z87.891 Personal history of nicotine dependence; Z88.1 Allergy status to other antibiotic agents; Z88.2 Allergy status to sulfonamides; Z88.5 Allergy status to narcotic agent; Z88.6 Allergy status to analgesic agent; Z83.3 Family history of diabetes mellitus; Z82.49 Family history of ischemic heart disease and other diseases of the circulatory system; Z83.6 Family history of other diseases of the respiratory system; Z84.1 Family history of disorders of kidney and ureter

== ENCOUNTER → 2016-10-24 | Outpatient (CLI) | payer OTHER ==
[~2016-10-24] MED LIST changes: +ACET325T96 PO; +AMOX500T PO; +AMOX875T PO; +ASCA500 PO; +ASPI81TA28 PO; +ATOR-24 PO; +B-CO1TAB73 PO; +CALC0.2510 PO; +CHOL2000 PO; +CIPR1TAB11 PO; +CMD/25 PO; +CMD25 PO; +CPR750 PO; +CPROT OT; +CYAN10005 PO; -DIPH2CRE16 EXT; +DOCU-94 PO; +GABA1CAP5 PO; +HYDR-3126 PO; +HYDR-4330 PO; +HYDR-5688 PO; +INSDGI SQ; +INSDGIPEN SC; +LEVO125T72 PO; +LEVO1TAB33 PO; +LORA-741 PO; +LORA0.5T12 PO; +LVQ500 PO; +MAGN400T5 PO; +MCTP EXT; +METO2.5T PO; +METO25TA3 PO; +MISCCAP80 PO; -MULT-506 PO; +MULTTAB63 PO; +NUTRMIS PO; +NVLG SC; -NYSP EXT; -PIPE1INJ11 IV; +POTA20TA13 PO; +PRED-301 PO; +PRT/20 PO; +SERT-234 PO; -SNTO30; +SNTO30 EXT; +SPRIN/30 INH; +TORS100T13 PO; -VANC5CAP PO; +WARF5TAB90 PO; -ZSYI45 IV; +[UNRECOGNIZED DRUG - CODE] IV; +protein powder PO
== END ==
LOC: C.LABCC 09:00
PROVIDERS: ATTEND Internal Medicine
DX: R19.7 Diarrhea, unspecified (principal)

== ENCOUNTER → 2016-10-31 | Outpatient (CLI) | payer OTHER ==
[~2016-10-31] MED LIST changes: +DIPH2CRE16 EXT; +MULT-506 PO; +NYSP EXT; +PIPE1INJ11 IV; +SNTO30; +VANC5CAP PO; +VNCS250 PO; +ZSYI45 IV
[2016-10-31 08:32] LABS: HEMATOCRIT 36.6 % (37-47); MEAN CELL VOLUME 85.9 fL (80-100); MEAN CORPUSCULAR HEMOGLOBIN 24.9 pg (25-34); MEAN PLATELET VOLUME 9.8 fL (7.4-10.4); PLATELET COUNT 464 K/uL (130-400); RED BLOOD COUNT 4.26 M/uL (4.2-5.4); WHITE BLOOD COUNT 16.92 K/uL (4.8-10.8)
[2016-10-31 09:15] LABS: ALT/SGPT 65 U/L (12-78); AST/SGOT 57 U/L (15-37); BLOOD UREA NITROGEN 43 mg/dl (7-18); BUN/CREATININE RATIO 22.5 (10-20); CALCIUM 9.5 mg/dl (8.5-10.1); CARBON DIOXIDE 32 mmol/L (21-32); CHLORIDE 97 mmol/L (98-107); GLUCOSE 135 mg/dl (70-99); SODIUM 141 mmol/L (136-145)
[2016-10-31 09:19] LABS: ALB/GLOB RATIO 0.4 (0.9-2); ALKALINE PHOSPHATASE 214 U/L (45-117); PREALBUMIN 20.2 mg/dl (20-40)
== END ==
LOC: C.LABCC 07:50
PROVIDERS: ATTEND Internal Medicine
DX: N18.4 Chronic kidney disease, stage 4 (severe) (principal); S71.001A Unspecified open wound, right hip, initial encounter

== ENCOUNTER → 2016-11-08 | Outpatient (CLI) | payer OTHER ==
[~2016-11-08] MED LIST changes: -DIPH2CRE16 EXT; -MULT-506 PO; -NYSP EXT; -PIPE1INJ11 IV; -SNTO30; -VANC5CAP PO; -VNCS250 PO; -ZSYI45 IV
[2016-11-08 08:20] LABS: BASO % 0.6 %; BASO ABS # 0.12 K/uL (0-0.2); COMPLETE YES; EOS % 5.3 %; HEMATOCRIT 33.8 % (37-47); IG% 0.9 %; LYMPH % 10.1 %; LYMPH ABS # 2.03 K/uL (1.2-3.4); MEAN CORPUSCULAR HGB CONC 29.3 g/dl (32-36); MEAN PLATELET VOLUME 9.6 fL (7.4-10.4); MONO % 9.3 %; NEUT % 73.8 %; PLATELET COUNT 435 K/uL (130-400); RED BLOOD COUNT 4.12 M/uL (4.2-5.4); WHITE BLOOD COUNT 20.16 K/uL (4.8-10.8)
[2016-11-08 08:28] LABS: ALT/SGPT 26 U/L (12-78); BLOOD UREA NITROGEN 60 mg/dl (7-18); BUN/CREATININE RATIO 37.7 (10-20); CALCIUM 9.4 mg/dl (8.5-10.1); CARBON DIOXIDE 32 mmol/L (21-32); CHLORIDE 95 mmol/L (98-107); GLUCOSE 136 mg/dl (70-99); POTASSIUM 3.7 mmol/L (3.5-5.1); SODIUM 136 mmol/L (136-145)
[2016-11-08 08:30] LABS: ALB/GLOB RATIO 0.5 (0.9-2); ALKALINE PHOSPHATASE 160 U/L (45-117); AST/SGOT 21 U/L (15-37)
== END ==
LOC: C.LABCC 07:42
PROVIDERS: ATTEND Internal Medicine
DX: N18.9 Chronic kidney disease, unspecified (principal); D72.829 Elevated white blood cell count, unspecified

== ENCOUNTER → 2016-11-18 | Outpatient (CLI) | payer OTHER ==
[2016-11-18 08:39] LABS: HEMATOCRIT 35.3 % (37-47); MEAN CELL VOLUME 80.8 fL (80-100); MEAN CORPUSCULAR HGB CONC 29.7 g/dl (32-36); MEAN PLATELET VOLUME 9.2 fL (7.4-10.4); PLATELET COUNT 406 K/uL (130-400); RED BLOOD COUNT 4.37 M/uL (4.2-5.4); WHITE BLOOD COUNT 21.19 K/uL (4.8-10.8)
== END ==
LOC: C.LABCC 07:52
PROVIDERS: ATTEND Internal Medicine
DX: D72.829 Elevated white blood cell count, unspecified (principal)

== ENCOUNTER → 2016-11-28 | Outpatient (CLI) | payer OTHER ==
[2016-11-28 08:51] LABS: BASO % 0.5 %; BASO ABS # 0.08 K/uL (0-0.2); COMPLETE YES; HEMATOCRIT 34.7 % (37-47); IG% 0.6 %; LYMPH ABS # 1.74 K/uL (1.2-3.4); MEAN CELL VOLUME 81.8 fL (80-100); MEAN CORPUSCULAR HEMOGLOBIN 23.8 pg (25-34); MEAN CORPUSCULAR HGB CONC 29.1 g/dl (32-36); MEAN PLATELET VOLUME 9.2 fL (7.4-10.4); MONO % 7.9 %; PLATELET COUNT 342 K/uL (130-400); RED BLOOD COUNT 4.24 M/uL (4.2-5.4)
[2016-11-28 09:06] LABS: BLOOD UREA NITROGEN 81 mg/dl (7-18); BUN/CREATININE RATIO 50.4 (10-20); CALCIUM 9.7 mg/dl (8.5-10.1); CARBON DIOXIDE 33 mmol/L (21-32); CHLORIDE 100 mmol/L (98-107); GLUCOSE 155 mg/dl (70-99); POTASSIUM 3.7 mmol/L (3.5-5.1); SODIUM 141 mmol/L (136-145)
[2016-11-28 09:07] LABS: PHOSPHORUS 4.4 mg/dl (2.5-4.9)
== END ==
LOC: C.LABCC 08:31
PROVIDERS: ATTEND Internal Medicine
DX: N18.4 Chronic kidney disease, stage 4 (severe) (principal)

== ENCOUNTER 2016-12-01 06:12 | Inpatient (IN) | payer OTHER ==
[~2016-12-01] VITALS: Ht 162.6 cm; Wt 133.3 kg
[~2016-12-01 06:12] MED LIST changes: -AMOX500T PO; -AMOX875T PO; -ASCA500 PO; -ASPI81TA28 PO; -ATOR-24 PO; -B-CO1TAB73 PO; -CALC0.2510 PO; -CHOL2000 PO; -CIPR1TAB11 PO; -CMD/25 PO; -CMD25 PO; -CPR750 PO; -CPROT OT; -CYAN10005 PO; -DOCU-94 PO; -GABA1CAP5 PO; -HYDR-3126 PO; -HYDR-4330 PO; -HYDR-5688 PO; -INSDGI SQ; -INSDGIPEN SC; -LEVO125T72 PO; -LEVO1TAB33 PO; -LORA-741 PO; -LVQ500 PO; -MAGN400T5 PO; -MCTP EXT; +METO-452 PO; -METO1TAB66 PO; -METO25TA3 PO; -MISCCAP80 PO; -NUTRMIS PO; -NVLG SC; -OXGN; -PRED-301 PO; -PRT/20 PO; -SERT-234 PO; -SNTO30 EXT; -SPRIN/30 INH; -WARF5TAB90 PO
[2016-12-01] MEDS ORDERED: HYDR-3419 PO ×3 (06:48→07:16)
[2016-12-01] MEDS ORDERED: INSDGI SQ (06:52)
[2016-12-01] MEDS ORDERED: LORA-741 PO (06:54)
--- NOTE | 2016-12-01 06:54 | EMERGENCY ROOM VISIT NOTE ---
History Report prepared by Hailey: Kvng Chamorro Under the Supervision of: Dr. Paula Sexton M.D. First contact with patient: 06:40 Chief Complaint: SHORTNESS OF BREATH Stated Complaint: SHORT OF BREATH History of Present Illness The patient is a 61 year old female who presents to the Emergency Room with complaints of acute hypoxia that occurred this morning. The patient stays at [facility]. The patient wears 3L of oxygen during the day and CPAP at night. This morning she was found to be off of her CPAP and her pulse ox was in the 60s. Her pulse ox remained low after being placed on oxygen this morning, which prompted her visit to the ED. The patient notes that she was feeling short of breath. She has a history of COPD and CHF. The patient states that her legs are not excessively swollen compared to baseline. She also has a history of diabetes and atrial fibrillation. The patient has a PICC line. Source of History: patient Onset: this morning Position: other (respiratory) Symptom Intensity: SA02 in the 60s Quality: other (hypoxic) Timing: other (acute) Associated Symptoms: + SOB Review of Systems See HPI for pertinent positives & negatives. A total of 10 systems reviewed and were otherwise negative. Past Medical & Surgical Medical Problems: (1) Atrial Fibrillation (2) C. difficile colitis (3) Chronic respiratory failure (4) CKD (chronic kidney disease), stage IV (5) Cor pulmonale (6) Diab Ania Wo Compl, Type Ii Or Unspec Type, Uncontrolled (7) Gastroparesis (8) Hyperlipidemia Nec/Nos (9) Hypertension (10) Hypertension Nos (11) Hypoglycemia (12) Morbid Obesity (13) Obesity hypoventilation syndrome (14) Pressure ulcer (15) Sleep apnea (16) Wound infection Surgical Problems: (1) S/P cholecystectomy (2) S/P debridement Family History Cancer Diabetes mellitus FH: heart disease FHx: lung disease Hypertension Kidney stones Social History Smoking Status: Former Smoker Drug Use: none Marital Status: Housing Status: lives with family Occupation Status: disabled Current/Historical Medications Scheduled Ascorbic Acid (Vitamin C), 500 MG PO BID Aspirin Enteric Coated (Ecotrin Or Generic *), 81 MG PO DAILY Atorvastatin (Lipitor), 40 MG PO DAILY Calcitriol (Rocaltrol Cap), 0.25 MCG PO UD Ceftazidime-Avibactam Sodium (Avycaz 2-0.5 gm), 0.94 GM IV Q12 Cholecalciferol (Vitamin D), 2,000 INTER.UNIT PO DAILY Cyanocobalamin (Vitamin B-12), 1,000 MCG PO DAILY Gabapentin (Neurontin), 400 MG PO BID Heparin Sodium (Porcine) (Heparin Sodium), 5,000 UNITS SQ BID Hydrocodon/Acetaminophen 5MG/300MG (Vicodin (5MG/300MG)), 2 TABS PO UD Insulin Aspart (Novolog Penfill), 3 UNITS SC AC Insulin Glargine (Lantus), 20 UNITS SQ QAM Levothyroxine Sodium (Synthroid), 125 MCG PO DAILY Lorazepam (Ativan), 0.5 MG PO UD Magnesium Oxide (Mag-Ox), 400 MG PO BID Metolazone (Zaroxolyn), 2.5 MG PO WK Metoprolol Succinate (Toprol Xl), 50 MG PO DAILY Multiple Vitamins W/ Minerals (Therems M), 1 TAB PO DAILY Pantoprazole (Protonix), 20 MG PO DAILY Potassium Chloride Microencaps (Potassium Chloride Er), 20 MEQ PO DAILY Prednisone (Prednisone), 5 MG PO DAILY Probiotic Product (Probiotic), 250 MG PO BID Sertraline (Zoloft), 150 MG PO DAILY Tiotropium [place] (Spiriva Handihaler), 1 CAP INH DAILY Torsemide (Demadex), 100 MG PO DAILY [protein powder], 1 DOSE PO TID Scheduled PRN Acetaminophen Tab (Tylenol), 650 MG PO Q6H PRN for PAIN OR TEMP > 100F Albuterol (Proair Hfa), 2 PUFFS PO QID PRN for Shortness of Breath Hydrocodon/Acetaminophen 5MG/300MG (Vicodin (5MG/300MG)), 1 TAB PO Q6H PRN for Pain Hydrocodon/Acetaminophen 5MG/300MG (Vicodin (5MG/300MG)), 2 TABS PO Q12 PRN for SEVERE PAIN Hydroxyzine Hcl (Atarax), 25 MG PO Q6H PRN for PURITIS Allergies Coded Allergies: Bacitracin (Verified Allergy, Intermediate, RASH,ITCH, 08/27/16) Celecoxib (Verified Allergy, Intermediate, RASH TO SULFA DRUGS, 08/27/16) Neomycin (Verified Allergy, Intermediate, RASH,ITCH, 08/27/16) Polymyxin B (Verified Allergy, Intermediate, RASH,ITCH, 08/27/16) Sulfa Antibiotics (Verified Allergy, Intermediate, RASH,HAS TAKEN GLIPIZIDE W/O REACTION, 08/27/16) Tigecycline (Verified Adverse Reaction, Severe, MILD PANCREATITIS, ) 61 yo F placed on IV tigecycline for wound infection, after 5-6 days developed decreased appetite, had nonspecific abdominal pain from admission and was refusing to lie back for daily abd assessments because of pain in other areas of abdomen. Decreased appetite persisted, also in context of worsening depression and stated apathy, WBC continued to increase, CT chest revealed n/s changes possibly consistent with mild pancreatitis, lipase drawn and elevated, other causes ruled out, clinical pancreatitis on exam. Diruretics/albumin stopped to avoid further rehydration, tigecycline discontinued, continuing supportive care. Codeine (Verified Adverse Reaction, Intermediate, GI UPSET, 08/27/16) Physical Exam Vital Signs Date Time Temp Pulse Resp B/P Pulse Ox O2 Delivery O2 Flow Rate FiO2 12/01/16 08:49 99 127/71 12/01/16 08:34 94 22 127/71 93 Room Air 12/01/16 07:51 105 22 135/72 90 Nasal Cannula 3.0 12/01/16 07:12 113 25 89 12/01/16 07:00 103 26 90 Room Air 4.0 12/01/16 06:57 107 18 91 12/01/16 06:42 110 17 89 Nasal Cannula 5.0 12/01/16 06:33 105 12/01/16 06:21 130/82 12/01/16 06:12 89 Nasal Cannula 5.0 12/01/16 06:12 76 Room Air 12/01/16 06:12 37.6 107 18 130/82 76 Room Air Physical Exam Vital signs reviewed. General: Morbidly obese chronically ill-appearing female, on nasal cannula oxygen. HEENT: No scleral icterus, PERRLA, neck supple. Atraumatic. Cardiovascular: Regular rate and rhythm, no extra sounds. Pulmonary: Diminished breath sounds at the bases bilaterally, normal work of breathing. Abdomen: Mild erythema to the lower aspect of abdominal pannus. Musculoskeletal: Atraumatic. Peripheral edema bilateral lower extremities with chronic skin changes over calf and skin, blanchable erythema, no active lesions or drainage. Neurologic: Patient awake alert and oriented x 3, full strength in all 4 extremities. Cranial nerves 2 through 12 grossly intact. Skin: Warm, dry. Medical Decision & Procedures ER Provider Diagnostic Interpretation: X-ray results as stated below per my interpretation and radiologist interpretation. Other radiology results as stated below per my review and radiologist interpretation: CHEST ONE VIEW PORTABLE CLINICAL HISTORY: SOB, CHF dyspnea COMPARISON STUDY: 10/15/2016 FINDINGS: Congestive heart failure. Interval small right effusion. Moderate cardiomegaly. Central PICC catheter in the superior vena cava. IMPRESSION: Congestive heart failure. Small right pleural effusion. Electronically signed by: Bird Patino M.D. 12/01/2016 7:35 AM Dictated Date/Time: 12/01/2016 7:34 AM Laboratory Results 12/01/16 06:45 Red Blood Count 3.99, Mean Corpuscular Volume 79.9, Mean Corpuscular Hemoglobin 24.3, Mean Corpuscular Hemoglobin Concent 30.4, Mean Platelet Volume 9.3, Neutrophils (%) (Auto) 74.0, Lymphocytes (%) (Auto) 10.0, Monocytes (%) (Auto) 9.3, Eosinophils (%) (Auto) 4.9, Basophils (%) (Auto) 0.8, Neutrophils # (Auto) 13.88, Lymphocytes # (Auto) 1.87, Monocytes # (Auto) 1.74, Eosinophils # (Auto) 0.91, Basophils # (Auto) 0.15 12/01/16 06:45 Test 12/01/16 06:45 12/01/16 06:51 12/01/16 07:17 12/01/16 07:43 White Blood Count 18.73 K/uL (4.8-10.8) Red Blood Count 3.99 M/uL (4.2-5.4) Hemoglobin 9.7 g/dL (12.0-16.0) Hematocrit 31.9 % (37-47) Mean Corpuscular Volume 79.9 fL (80-100) Mean Corpuscular Hemoglobin 24.3 pg (25-34) Mean Corpuscular Hemoglobin Concent 30.4 g/dl (32-36) Platelet Count 382 K/uL (130-400) Mean Platelet Volume 9.3 fL (7.4-10.4) Neutrophils (%) (Auto) 74.0 % Lymphocytes (%) (Auto) 10.0 % Monocytes (%) (Auto) 9.3 % Eosinophils (%) (Auto) 4.9 % Basophils (%) (Auto) 0.8 % Neutrophils # (Auto) 13.88 K/uL (1.4-6.5) Lymphocytes # (Auto) 1.87 K/uL (1.2-3.4) Monocytes # (Auto) 1.74 K/uL (0.11-0.59) Eosinophils # (Auto) 0.91 K/uL (0-0.5) Basophils # (Auto) 0.15 K/uL (0-0.2) RDW Standard Deviation 50.8 fL (36.4-46.3) RDW Coefficient of Variation 17.3 % (11.5-14.5) Immature Granulocyte % (Auto) 1.0 % Immature Granulocyte # (Auto) 0.18 K/uL (0.00-0.02) Anion Gap 10.0 mmol/L (3-11) Est Creatinine Clear Calc Drug Dose 43.6 ml/min Estimated GFR () 34.4 Estimated GFR (Non- 29.6 BUN/Creatinine Ratio 48.3 (10-20) Calcium Level 9.5 mg/dl (8.5-10.1) Magnesium Level 2.4 mg/dl (1.8-2.4) Total Bilirubin 0.4 mg/dl (0.2-1) Direct Bilirubin 0.2 mg/dl (0-0.2) Aspartate Amino Transf (AST/SGOT) 19 U/L (15-37) Alanine Aminotransferase (ALT/SGPT) 17 U/L (12-78) Alkaline Phosphatase 112 U/L (45-117) Total Creatine Kinase 13 U/L (26-192) Creatine Kinase MB 0.6 ng/ml (0.5-3.6) Creatine Kinase MB Ratio 4.6 (0-3.0) Total Protein 7.3 gm/dl (6.4-8.2) Albumin 2.5 gm/dl (3.4-5.0) Bedside Troponin I 0.000 ng/ml (0-0.045) RO-Tvt-S-Type Natriuretic Peptide 9840 pg/ml (0-900) Bedside Lactic Acid Venous 1.44 mmol/L (0.90-1.70) Test 12/01/16 07:50 Influenza Type A Antigen Neg for Influ A (NEG) Influenza Type B Antigen Neg for Influ B (NEG) Laboratory results per my review. Medications Administered Medications (Trade) Dose Ordered Sig/Tyrone Route Start Time Stop Time Status Last Admin Dose Admin Furosemide (Lasix Inj) 40 mg NOW STAT IV 12/01/16 07:56 12/01/16 07:57 DC 12/01/16 08:48 40 MG Acetaminophen (Tylenol Tab) 650 mg NOW STAT PO 12/01/16 08:00 12/01/16 08:02 DC 12/01/16 08:48 650 MG Levofloxacin (Levaquin / D5W) 500 mg NOW ONCE IV 12/01/16 08:00 12/01/16 08:02 DC 12/01/16 08:48 500 MG Metoprolol Tartrate (Lopressor Iv) 5 mg NOW STAT IV 12/01/16 08:02 12/01/16 08:03 DC 12/01/16 08:49 5 MG ECG Indication: SOB/dyspnea Rate (beats per minute): 104 Rhythm: atrial fibrillation (RVR) Findings: no acute ischemic change, other (likely previous latearl infarct, RVR ) ED Course 0642: Past medical records reviewed. The patient was evaluated in room A11b. A complete history and physical examination was performed. 0756: Lasix 40 mg IV. 0800: Levofloxacin 500 mg IV, Tylenol 650 mg PO. 0800: Medicine was paged. 0802: Lopressor 5 mg IV. 0807: Discussed the case with Dr. Chance, [facility]. The patient will be evaluated for hospitalization. Medical Decision Differential diagnosis: Etiologies such as infections, reactive airway disease, pneumonia, pneumothorax , COPD, CHF, cardiac ischemia, pulmonary embolism, musculoskeletal, gastrointestinal, as well as others were entertained. This patient was evaluated and appeared to be in no significant distress. She is noted to be in a chair fibrillation with mild RVR. The patient is found have congestive heart failure on chest x-ray. She is given 40 mg of IV Lasix. Her creatinine is 1.8 which is reasonable compared to her baseline. Since BNP is elevated with a normal troponin. Patient does have chronic pressure ulcers and her blood cell count is elevated today. She takes daily antibiotics through PICC line. She is followed by infectious disease. The patient was medicated with 500 mg of IV Levaquin, although I do not suspect an acute infectious pulmonary process. The case has been discussed with the hospitalist service will evaluate the patient for further management. Patient is with the plan and agrees. Consults Time Called: [phone] Consulting Physician: Dr. Chance, Family Medicine Returned Call: [phone]: Discussed the case with Dr. Chance, Family Medicine. The patient will be evaluated for hospitalization. Impression Primary Impression: Congestive heart failure Additional Impressions: Leukocytosis Low grade fever Rapid atrial fibrillation Scribe Attestation The scribe's documentation has been prepared under my direction and personally reviewed by me in its entirety. I confirm that the note above accurately reflects all work, treatment, procedures, and medical decision making performed by me. Departure Information Dispostion Being Evaluated By Hospitalist Referrals [facility]ayne (PCP) Patient Instructions My [facility] Problem Qualifiers Primary Impression: Congestive heart failure Congestive heart failure type: unspecified congestive heart failure type Congestive heart failure chronicity: acute Qualified Codes: I50.9 - Heart failure, unspecified Additional Impressions: Leukocytosis Leukocytosis type: unspecified Qualified Codes: D72.829 - Elevated white blood cell count, unspecified
[2016-12-01 07:01] LABS: BASO % 0.8 %; BASO ABS # 0.15 K/uL (0-0.2); COMPLETE YES; EOS % 4.9 %; HEMATOCRIT 31.9 % (37-47); LYMPH ABS # 1.87 K/uL (1.2-3.4); MEAN CELL VOLUME 79.9 fL (80-100); MEAN CORPUSCULAR HEMOGLOBIN 24.3 pg (25-34); MEAN CORPUSCULAR HGB CONC 30.4 g/dl (32-36); MEAN PLATELET VOLUME 9.3 fL (7.4-10.4); MONO % 9.3 %; PLATELET COUNT 382 K/uL (130-400); RED BLOOD COUNT 3.99 M/uL (4.2-5.4); WHITE BLOOD COUNT 18.73 K/uL (4.8-10.8)
[2016-12-01] MEDS ORDERED: MISCCAP80 PO (07:02)
[2016-12-01] MEDS ORDERED: HYDR-3126 PO (07:14)
[2016-12-01 07:17] LABS: BUN/CREATININE RATIO 48.3 (10-20); CALCIUM 9.5 mg/dl (8.5-10.1); CREATININE 1.8 mg/dl (0.60-1.20); MAGNESIUM 2.4 mg/dl (1.8-2.4)
[2016-12-01 07:21] LABS: CKMB/CK RATIO 4.6 (0-3.0)
--- NOTE | 2016-12-01 07:36 | DIAGNOSTIC IMAGING REPORT ---
CHEST ONE VIEW PORTABLE CLINICAL HISTORY: SOB, CHF dyspnea COMPARISON STUDY: 10/15/2016 FINDINGS: Congestive heart failure. Interval small right effusion. Moderate cardiomegaly. Central PICC catheter in the superior vena cava. IMPRESSION: Congestive heart failure. Small right pleural effusion. Electronically signed by: Bird Patino M.D. 12/01/2016 7:35 AM Dictated Date/Time: 12/01/2016 7:34 AM
[2016-12-01] MEDS ORDERED: FUROSEMIDE 40 MG/4 ML VIAL IV STA (07:56)
[2016-12-01] MEDS ORDERED: LEVAQUIN 500MG / 100ML D5W IV ONE (08:00)
[2016-12-01] MEDS ORDERED: ACETAMINOPHEN 325 MG TAB PO STA (08:00)
[2016-12-01] MEDS ORDERED: METOPROLOL TARTRATE 1 MG/ML VIAL IV STA (08:02)
[2016-12-01 08:30] VITALS: O2SAT 93; Ht 162.6 cm; Wt 133.3 kg
[2016-12-01] MEDS ORDERED: ACETAMINOPHEN 325 MG TAB PO PRN (09:45)
[2016-12-01] MEDS ORDERED: ONDANSETRON INJ 2 MG/ML 2 ML VIAL IV PRN (09:45)
[2016-12-01] MEDS ORDERED: POLYETHYLENE (MIRALAX) 17 GM PACK PO PRN (09:45)
[2016-12-01] MEDS ORDERED: ALUMINUM/MAGNESIUM/SIMETH (MAALOX MAX) 30 ML UDC PO PRN (09:45)
[2016-12-01] MEDS ORDERED: MAGNESIUM HYDROXIDE SUSP 30 ML UDC PO PRN (09:45)
[2016-12-01 09:53] LABS: INFLUENZA A PCR Neg for Influ A (NEG); INFLUENZA B PCR Neg for Influ B (NEG)
[2016-12-01] MEDS ORDERED: LORAZEPAM 0.5 MG TAB PO SCH (10:15)
[2016-12-01] MEDS ORDERED: METOPROLOL SUCC 50MG EXT REL TAB PO ONE (10:15)
[2016-12-01] MEDS ORDERED: hydrOXYzine HCL 25 MG TAB PO PRN (10:15)
[2016-12-01] MEDS ORDERED: ALBUTEROL HFA 8 GM INHALER INH PRN (10:15)
--- NOTE | 2016-12-01 10:31 | History and Physical ---
History & Physical Date & Time of Service: Dec 01, 2016 at 10:27 Chief Complaint: Short Of Breath Primary Care Physician: Dewayne Ames History of Present Illness Source: patient, family (daughter) Ms. Blevins is a 61 y/o female with PMHx of Right Sided Systolic Congestive Heart Failure, CKD Stage IV, Chronic Hypoxic Respiratory Failure (Continues 3L NC), Persistent Atrial Fibrillation, Hypothyroidism, T2DM with Peripheral Neuropathy , and Chronic Pressure Ulcers with Wound Vacs (MDR Klebsiella) who presents to the ED for acute hypoxia this AM. Patient resides currently at [facility]. Patient's baseline is 3 L of oxygen with CPAP at night. This morning she was found to be off her CPAP and pulse oximetry revealing saturations in the 60s. Her saturations remained low even with the addition of oxygen and she was brought to the emergency department. Patient does report shortness of breath. She states that she suspected she was retaining fluid as she felt that her abdomen was more distended. She has chronic edema of the lower extremities bilaterally and report that this is largely baseline. Patient also complains of a productive cough of white to yellow sputum for approximately 2 weeks and right ear pain. Patient is currently being treated for bilateral hip and buttocks pressure ulcers with wound VAC placement. She follows with the wound clinic and infectious disease. She has a PICC line in the RUE and currently receiving Avycaz for these pressure ulcers. She denies fever/chills, CP, N/V, abdominal pain, dysuria, constipation/diarrhea. In the ED, patient continued to be hypoxic and mildly tachycardic. She is febrile at 37.6. Presence of leukocytosis which is rather chronic. Evidence of microcytic anemia which appears largely baseline and likely due to anemia of chronic disease. Creatinine of 1.8 which is improved from baseline of approximately 2.0-2.4. BNP of 9840. EKG with atrial fibrillation with mild RVR. CXR suggested of congestive heart failure with small right pleural effusion and moderate cardiomegaly. Patient will be admitted to telemetry for acute on chronic congestive heart failure. Past Medical/Surgical History Medical Problems: (1) Atrial Fibrillation Status: Chronic (2) Chronic respiratory failure Status: Chronic (3) CKD (chronic kidney disease), stage IV Status: Chronic (4) Cor pulmonale Status: Chronic (5) Diab Ania Wo Compl, Type Ii Or Unspec Type, Uncontrolled Status: Chronic (6) Gastroparesis Status: Chronic (7) Hyperlipidemia Nec/Nos Status: Chronic (8) Hypertension Status: Chronic (9) Hypertension Nos Status: Chronic (10) Morbid Obesity Status: Chronic (11) Obesity hypoventilation syndrome Status: Chronic (12) Sleep apnea Status: Chronic Surgical Problems: (1) S/P cholecystectomy Status: Chronic (2) S/P debridement Permanent Comment: 08/30/2016- debridement bilateral lower extremity and buttock wounds Status: Chronic Family History Cancer Diabetes mellitus FH: heart disease FHx: lung disease Hypertension Kidney stones Social History Smoking Status: Former Smoker Smokeless Tobacco Use: No Alcohol Use: none Drug Use: none Marital Status: Housing status: lives with family Occupational Status: disabled Immunizations History of Influenza Vaccine: Yes Influenza Vaccine Date: Jul 15, 2011 History of Tetanus Vaccine?: Unknown History of Pneumococcal: Yes Pneumococcal Date: Sep 17, 2008 History of Hepatitis B Vaccine: Unknown 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 Allergies Coded Allergies: Bacitracin (Verified Allergy, Intermediate, RASH,ITCH, 08/27/16) Celecoxib (Verified Allergy, Intermediate, RASH TO SULFA DRUGS, 08/27/16) Neomycin (Verified Allergy, Intermediate, RASH,ITCH, 08/27/16) Polymyxin B (Verified Allergy, Intermediate, RASH,ITCH, 08/27/16) Sulfa Antibiotics (Verified Allergy, Intermediate, RASH,HAS TAKEN GLIPIZIDE W/O REACTION, 08/27/16) Tigecycline (Verified Adverse Reaction, Severe, MILD PANCREATITIS, ) 61 yo F placed on IV tigecycline for wound infection, after 5-6 days developed decreased appetite, had nonspecific abdominal pain from admission and was refusing to lie back for daily abd assessments because of pain in other areas of abdomen. Decreased appetite persisted, also in context of worsening depression and stated apathy, WBC continued to increase, CT chest revealed n/s changes possibly consistent with mild pancreatitis, lipase drawn and elevated, other causes ruled out, clinical pancreatitis on exam. Diruretics/albumin stopped to avoid further rehydration, tigecycline discontinued, continuing supportive care. Codeine (Verified Adverse Reaction, Intermediate, GI UPSET, 08/27/16) Home Medications Scheduled Ascorbic Acid (Vitamin C), 500 MG PO BID Aspirin Enteric Coated (Ecotrin Or Generic *), 81 MG PO DAILY Atorvastatin (Lipitor), 40 MG PO DAILY Calcitriol (Rocaltrol Cap), 0.25 MCG PO UD Ceftazidime-Avibactam Sodium (Avycaz 2-0.5 gm), 0.94 GM IV Q12 Cholecalciferol (Vitamin D), 2,000 INTER.UNIT PO DAILY Cyanocobalamin (Vitamin B-12), 1,000 MCG PO DAILY Gabapentin (Neurontin), 400 MG PO BID Heparin Sodium (Porcine) (Heparin Sodium), 5,000 UNITS SQ BID Hydrocodon/Acetaminophen 5MG/300MG (Vicodin (5MG/300MG)), 2 TABS PO UD Insulin Aspart (Novolog Penfill), 3 UNITS SC AC Insulin Glargine (Lantus), 20 UNITS SQ QAM Levothyroxine Sodium (Synthroid), 125 MCG PO DAILY Lorazepam (Ativan), 0.5 MG PO UD Magnesium Oxide (Mag-Ox), 400 MG PO BID Metolazone (Zaroxolyn), 2.5 MG PO WK Metoprolol Succinate (Toprol Xl), 50 MG PO DAILY Multiple Vitamins W/ Minerals (Therems M), 1 TAB PO DAILY Pantoprazole (Protonix), 20 MG PO DAILY Potassium Chloride Microencaps (Potassium Chloride Er), 20 MEQ PO DAILY Prednisone (Prednisone), 5 MG PO DAILY Probiotic Product (Probiotic), 250 MG PO BID Sertraline (Zoloft), 150 MG PO DAILY Tiotropium [place] (Spiriva Handihaler), 1 CAP INH DAILY Torsemide (Demadex), 100 MG PO DAILY [protein powder], 1 DOSE PO TID Scheduled PRN Acetaminophen Tab (Tylenol), 650 MG PO Q6H PRN for PAIN OR TEMP > 100F Albuterol (Proair Hfa), 2 PUFFS PO QID PRN for Shortness of Breath Hydrocodon/Acetaminophen 5MG/300MG (Vicodin (5MG/300MG)), 1 TAB PO Q6H PRN for Pain Hydrocodon/Acetaminophen 5MG/300MG (Vicodin (5MG/300MG)), 2 TABS PO Q12 PRN for SEVERE PAIN Hydroxyzine Hcl (Atarax), 25 MG PO Q6H PRN for PURITIS Review of Systems Constitutional: No chills, No fever Eyes: No worsening of vision ENT: + problem reported (R ear pain) Respiratory: + cough, + shortness of breath, + sputum Cardiovascular: No chest pain Abdomen: No constipation, No diarrhea, No nausea, No pain, No vomiting Musculoskeletal: + swelling (baseline), No calf pain Genitourinary - Female: No dysuria, No urinary frequency Hematologic / Lymphatic: No abnormal bleeding/bruising, No clotting problems Integumentary: + problem reported (chronic bilateral hip wound with wound vac) , No new/changing skin lesions, No rash Physical Exam Vital Signs Date Time Temp Pulse Resp B/P Pulse Ox O2 Delivery O2 Flow Rate FiO2 12/01/16 08:49 99 127/71 12/01/16 08:34 94 22 127/71 93 Room Air 12/01/16 08:30 93 Nasal Cannula 3.0 12/01/16 07:51 105 22 135/72 90 Nasal Cannula 3.0 12/01/16 07:12 113 25 89 12/01/16 07:00 103 26 90 Room Air 4.0 12/01/16 06:57 107 18 91 12/01/16 06:42 110 17 89 Nasal Cannula 5.0 12/01/16 06:33 105 12/01/16 06:21 130/82 12/01/16 06:12 89 Nasal Cannula 5.0 12/01/16 06:12 76 Room Air 12/01/16 06:12 37.6 107 18 130/82 76 Room Air General Appearance: WD/WN, no apparent distress, + obese Head: normocephalic, atraumatic Eyes: sclerae normal ENT: hearing grossly normal, + pertinent finding (bilateral TM with scarring without evidence of serous fluid/bulging/infection; R ear canal erythematous without evidence of injury or exudates) Neck: supple, no JVD, trachea midline Respiratory/Chest: no respiratory distress, no accessory muscle use, + decreased breath sounds, + crackles (mild in R base - difficulty auscultating 2/ 2 body habitus) Cardiovascular: no gallop, no murmur, + irregularly irregular, + pertinent finding (distant) Abdomen/GI: normal bowel sounds, non tender, soft Back: normal inspection, no CVA tenderness Extremities/Musculoskelatal: no calf tenderness, + swelling (chronic stasis dermatitis with 1+ pitting edema; skin is thickened (baseline per patient/ daughter)), + pertinent finding (wound vacs bilateral hip intact; surrounding skin without erythema; RUE PICC with clean/dry/intact dressing without site erythema/drainage/edema) Neurologic/Psych: alert, oriented x 3 Skin: normal color, warm/dry Diagnostics Laboratory Results Results Past 24 Hours Test 12/01/16 06:45 12/01/16 06:51 12/01/16 07:17 12/01/16 07:43 Range/Units White Blood Count 18.73 4.8-10.8 K/uL Red Blood Count 3.99 4.2-5.4 M/uL Hemoglobin 9.7 12.0-16.0 g/dL Hematocrit 31.9 37-47 % Mean Corpuscular Volume 79.9 80-100 fL Mean Corpuscular Hemoglobin 24.3 25-34 pg Mean Corpuscular Hemoglobin Concent 30.4 32-36 g/dl Platelet Count 382 130-400 K/uL Mean Platelet Volume 9.3 7.4-10.4 fL Neutrophils (%) (Auto) 74.0 % Lymphocytes (%) (Auto) 10.0 % Monocytes (%) (Auto) 9.3 % Eosinophils (%) (Auto) 4.9 % Basophils (%) (Auto) 0.8 % Neutrophils # (Auto) 13.88 1.4-6.5 K/uL Lymphocytes # (Auto) 1.87 1.2-3.4 K/uL Monocytes # (Auto) 1.74 0.11-0.59 K/uL Eosinophils # (Auto) 0.91 0-0.5 K/uL Basophils # (Auto) 0.15 0-0.2 K/uL RDW Standard Deviation 50.8 36.4-46.3 fL RDW Coefficient of Variation 17.3 11.5-14.5 % Immature Granulocyte % (Auto) 1.0 % Immature Granulocyte # (Auto) 0.18 0.00-0.02 K/uL Sodium Level 140 136-145 mmol/L Potassium Level 4.0 3.5-5.1 mmol/L Chloride Level 100 98-107 mmol/L Carbon Dioxide Level 30 21-32 mmol/L Anion Gap 10.0 3-11 mmol/L Blood Urea Nitrogen 87 7-18 mg/dl Creatinine 1.80 0.60-1.20 mg/dl Est Creatinine Clear Calc Drug Dose 43.6 ml/min Estimated GFR () 34.4 Estimated GFR (Non- 29.6 BUN/Creatinine Ratio 48.3 10-20 Random Glucose 138 70-99 mg/dl Calcium Level 9.5 8.5-10.1 mg/dl Magnesium Level 2.4 1.8-2.4 mg/dl Total Bilirubin 0.4 0.2-1 mg/dl Direct Bilirubin 0.2 0-0.2 mg/dl Aspartate Amino Transf (AST/SGOT) 19 15-37 U/L Alanine Aminotransferase (ALT/SGPT) 17 12-78 U/L Alkaline Phosphatase 112 45-117 U/L Total Creatine Kinase 13 26-192 U/L Creatine Kinase MB 0.6 0.5-3.6 ng/ml Creatine Kinase MB Ratio 4.6 0-3.0 Total Protein 7.3 6.4-8.2 gm/dl Albumin 2.5 3.4-5.0 gm/dl Bedside Troponin I 0.000 0-0.045 ng/ml WA-Txc-H-Type Natriuretic Peptide 9840 0-900 pg/ml Bedside Lactic Acid Venous 1.44 0.90-1.70 mmol/L Test 12/01/16 07:50 Range/Units Influenza Type A (RT-PCR) Neg for Influ A NEG Influenza Type A Antigen Neg for Influ A NEG Influenza Type B Antigen Neg for Influ B NEG Influenza Type B (RT-PCR) Neg for Influ B NEG Microbiology Results 12/01/16 Blood Culture, Received Pending 12/01/16 Blood Culture, Received Pending Diagnostic Radiology CHEST ONE VIEW PORTABLE CLINICAL HISTORY: SOB, CHF dyspnea COMPARISON STUDY: 10/15/2016 FINDINGS: Congestive heart failure. Interval small right effusion. Moderate cardiomegaly. Central PICC catheter in the superior vena cava. IMPRESSION: Congestive heart failure. Small right pleural effusion. EKG Atrial fibrillation with rapid ventricular response Lateral infarct (cited on or before 19-OCT-2016) Abnormal ECG When compared with ECG of 19-OCT-2016 15:43, No significant change was found Impression Assessment and Plan Acute on Chronic R-Sided Systolic Congestive Heart Failure - Cor Pulmonale: - Serial cardiac enzymes and monitor on telemetry - Low sodium diet with 1500 mL fluid restriction - Echo (November 2015) - EF 55-60%, moderate RV dilation and moderate to severe reduction in function, biatrial dilation, severely elevated RV systolic pressure , and severely dilated IVC - Obtain updated echo - Lasix 40 mg IV 1 dose in the ED - will give Lasix 40 mg IV 1 dose this afternoon - We will continue Torsemide 100 mg daily on 12/02 -- Patient reports Metolazone 2.5 mg is taken once weekly on Saturdays - will hold at this time - Vancomycin per pharmacy dosing - for additional pulmonary coverage -- Mildly febrile and possible chronic leukocytosis; productive cough x couple weeks - flu and PCR negative - Consult [facility] - patient follows with Bird Akhtar PA-C - appreciate recommendations Otitis Externa - R Ear: - Ciprofloxacin/HC 3 drops BID in R ear Chronic Kidney Disease - Stage IV: Baseline Cr 2.0-2.5 - Creatinine currently improved from baseline - Monitor electrolytes and trend with BMP Chronic Hypoxic Resiraptory Failure (3 L Continuous) & Obesity Hypoventilation Syndrome/KRISTY: - CPAP set up - for night use - Prednisone 5 mg daily - Ventolin PRN and Spiriva 1 cap daily - Duo nebs Q2H PRN Persistent Atrial Fibrillation: Largely Rate Controlled - Metoprolol succinate 50 mg daily - will administer today's dose now - ASA 81 mg daily - Previously on Coumadin - DC'd secondary to hematoma/fall and has been maintained on heparin T2DM - IDDM and Peripheral Neuropathy: - Lantus 20 units SC daily - SSI - goal 120-160 with correction factor 35 - Gabapentin 400 mg BID Chronic Pressure Ulcers of Bilateral Hips with Wound Vacs x 2: MDR Klebsiella - Avycaz 0.94 g Q12H - Percocet PRN pain - Consult infectious disease - appreciate recommendations - Consult wound care nurse and provider Hypothyroidism: - Synthroid 125 mcg daily H/O C. Diff (August 2016): Treated with PO Vanc - Patient reports formed stool - low threshold for testing in setting of diarrhea DVT Prophylaxis: - Heparin 5000 units SC BID Code Status: FULL RESUSCITATION Disposition: Resident of [facility] - Patient originally with [facility] PCP currently residing at [facility] Level of Care Telemetry Advanced Directives Existing Living Will: Yes Existing Power of Manager Of Selection And Assessment: Yes Resuscitation Status FULL RESUSCITATION VTE Prophylaxis VTE Risk Assessment Done? Y/N: Yes Risk Level: Moderate Given or contraindicated: Unfractionated heparin SQ Social Service Consult Lives in Personal Care Reviewed: Pt Seen/Exam by Me History Physician Labor Relations Specialist Supervision Note: I interviewed and examined the patient. Discussed with DOMINICK De Anda and agree with findings and plan as documented in the note. Any exceptions or clarifications are listed here: Pt admitted for acute hypoxemic respiratory failure after accidentally removing her nocturnal CPAP with O2, desat to the 60s on RA at the [facility] and they were unable to get it back up again despite using CPAP and O2. Pt also with acute on chronic systolic CHF here. Morbidly obese with chronic wounds on hips, vacs in place, low grade temp in ER, on IV abx currently for her chronic wounds. Feeling better now after admission and IV diuresis with lasix. ECHO completed and actually shows improvement in her cor pulmonale. Massively obese with large pannus, wound vacs in place bilateral hips into buttocks. Pulm decreased throughout, scattered wheezes Irreg irreg normal rate, no mgr Ext: 3+ pitting edema to thighs and pannus 61 yo female with multiple med problems, here with acute hypoxemic resp failure , acute on chronic sys CHF. IV diuresis, watch renal function, switch back to po torsemide tomorrow APpreciate Cardiology and WOund care consults monitor on tele dc either Fri- Documented By: Karla Chance
[2016-12-01] MEDS ORDERED: ALBUT/IPRATROP 3MG/0.5MG NEB 3 ML VIAL INH PRN (11:00)
[2016-12-01] MEDS ORDERED: VANCOMYCIN CONSULT ACTIVE PRN (12:45)
[2016-12-01 12:49] VITALS: BP 120/67; PULSE 93; TEMP 36.5; O2SAT 92
[2016-12-01] MEDS ORDERED: GLUCAGON FOR INJ 1 MG VIAL SQ PRN (13:15)
[2016-12-01] MEDS ORDERED: DEXTROSE 50% 50 ML SYR IV PRN (13:15)
[2016-12-01] MEDS ORDERED: HYDROCODONE/ACETAMOPHEN 5/325MG TAB PO PRN (13:15)
[2016-12-01] MEDS ORDERED: GLUCOSE 10 TABS/TUBE PO PRN (13:15)
[2016-12-01] MEDS ORDERED: GLUCOSE 40% GEL 15 GM TUBE PO PRN (13:15)
[2016-12-01] MEDS ORDERED: CIPRO 0.2%/HYDROCORTISONE 1% OTIC SUSP 10 ML BTL OT ONE (13:30)
[2016-12-01 13:56] LABS: CKMB/CK RATIO 5.3 (0-3.0)
[2016-12-01] MEDS ORDERED: PERFLUTREN LIPID MICROSPHERE (DEFINITY) IV ONE (14:21)
[2016-12-01] MEDS ORDERED: VANCOMYCIN INJ 2,500 MG in SODIUM CHLORIDE 0.9% 500ML 500 ML IV ONE ×2 (15:00→21:00)
[2016-12-01] MEDS ORDERED: FUROSEMIDE INJ 40 MG in SYRINGE 0 ML IV ONE (15:00)
[2016-12-01 15:33] VITALS: BP 105/67; PULSE 86; TEMP 36.7; O2SAT 89
--- NOTE | 2016-12-01 15:35 | ECHOCARDIOGRAM REPORT ---
*NOTICE TO RECEIVING DEMOCRAT AGENCY This information is strictly Confidential and protected under [place] law. [place] law prohibits you from making any further disclosure of this information unless further disclosure is expressly permitted by the written consent of the person to whom it pertains or is authorized by law. A general authorization for the release of medical or other information is not sufficient for this purpose. Hospital accepts no responsibility if the information is made available to any other person, INCLUDING THE PATIENT. Interpretation Summary * Name: MICHAEL CRUZ Study Date: 12/01/2016 01:51 PM BP: 103/71 mmHg * Patient Location: C.2T\S\S243\S\1 HR: 89 * : 1955 (M/d/yyy) Gender: Female Height: 64 in * Age: 61 yrs Ethnicity: CA Weight: 289 lb * Ordering Physician: Magi De Anda * Referring Physician: Dewayne Ames * Performed By: Julia Mercado RCS * * Reason For Study: CHF * BSA: 2.3 m2 * Compared to prior study, changes are noted. * -- Conclusions -- * The left ventricle is normal in size. * Ejection Fraction = 60-65%. * The right ventricular systolic function is normal. * The left atrial size is normal. * Right atrial size is normal. * Aortic valve sclerosis mild, without significant aortic valvular stenosis. * There is mild tricuspid regurgitation. * Compared to prior study, changes are noted, the right heart is no longer enlarged and RV systolic function is normal. Procedure Details * A complete two-dimensional transthoracic echocardiogram was performed (2D, M-mode, Doppler and color flow Doppler). * The study was technically difficult. * There were technical limitations due to patient'sbody habitus * Patient supine for imagining * A contrast injection of Definity was performed to improve assessment of LV function. * Contrast was injected into an intravenous site in the left arm. * One vial of Definity ultrasound contrast was diluted in normal saline to a total volume of 10 ml. A total of '2' ml of solution was administered during imaging. * Lot # [id number] of Definity utilized for procedure. * Expiration date 1MAR17. * The attending nurse who injected the contrast agent was M. Minor, RN. Left Ventricle * The left ventricle is normal in size. * There is normal left ventricular wall thickness. * Ejection Fraction = 60-65%. * The left ventricular wall motion is normal. Right Ventricle * The right ventricle is not well visualized. * The right ventricle is grossly normal size. * The right ventricular systolic function is normal. Atria * The left atrial size is normal. * Right atrial size is normal. * Jumprope intra-atrial septum * There is no evidence of atrial septal defect, but resolution does not allow assessment for a patent foramen ovale. Mitral Valve * There is mild to moderate mitral annular calcification. * The mitral valve is not well visualized. * Significant mitral regurgitation is absent. Tricuspid Valve * The tricuspid valve is not well visualized. * There is mild tricuspid regurgitation. Aortic Valve * The aortic valve is tricuspid. The leaflet thickness if normal. There is no aortic stenosis, and no significant insufficiency. * Aortic valve sclerosis mild, without significant aortic valvular stenosis. * There is no significant aortic regurgitation. Pulmonic Valve * The pulmonic valve is not well visualized. * There is no significant pulmonary regurgitation. MMode 2D Measurements and Calculations IVSd 1.0 cm IVSs 1.3 cm LVIDd 3.4 cm LVIDs 2.0 cm LVPWd 1.0 cm LVPWs 1.3 cm IVS/LVPW 0.99 FS 41.2 % EDV(Teich) 47.9 ml ESV(Teich) 12.9 ml EF(Teich) 73.1 % EDV(cubed) 39.8 ml ESV(cubed) 8.1 ml EF(cubed) 79.6 % % IVS thick 30.5 % % LVPW thick 28.0 % LV mass(C)d 105.2 grams LV mass(C)dI 46.0 grams/m\S\2 LV mass(C)s 79.8 grams LV mass(C)sI 34.9 grams/m\S\2 CO(Teich) 3.1 l/min CI(Teich) 1.4 l/min/m\S\2 SV(Teich) 35.0 ml SI(Teich) 15.3 ml/m\S\2 CO(cubed) 2.8 l/min CI(cubed) 1.2 l/min/m\S\2 SV(cubed) 31.7 ml SI(cubed) 13.9 ml/m\S\2 Ao root diam 3.1 cm Ao root area 7.7 cm\S\2 ACS 2.0 cm LA dimension 2.8 cm LA/Ao 0.89 LVAd ap4 27.1 cm\S\2 LVLd ap4 7.8 cm EDV(MOD-sp4) 77.0 ml LVAs ap4 17.8 cm\S\2 LVLs ap4 7.1 cm ESV(MOD-sp4) 38.0 ml EF(MOD-sp4) 50.6 % LVAd ap2 27.0 cm\S\2 LVLd ap2 7.3 cm EDV(MOD-sp2) 81.0 ml LVAs ap2 14.8 cm\S\2 LVLs ap2 6.0 cm ESV(MOD-sp2) 32.0 ml EF(MOD-sp2) 60.5 % CO(MOD-sp4) 3.5 l/min CI(MOD-sp4) 1.5 l/min/m\S\2 SV(MOD-sp4) 39.0 ml SI(MOD-sp4) 17.1 ml/m\S\2 CO(MOD-sp2) 4.4 l/min CI(MOD-sp2) 1.9 l/min/m\S\2 SV(MOD-sp2) 49.0 ml SI(MOD-sp2) 21.4 ml/m\S\2 Doppler Measurements and Calculations MV E max anival 115.7 cm/sec MV P1/2t max anival 121.5 cm/sec MV P1/2t 64.3 msec MVA(P1/2t) 3.4 cm\S\2 MV dec slope 553.4 cm/sec\S\2 MV dec time 0.21 sec Ao V2 max 143.3 cm/sec Ao max PG 8.2 mmHg Ao max PG (full) 4.8 mmHg LV V1 max PG 3.4 mmHg LV V1 max 92.6 cm/sec PA V2 max 90.9 cm/sec PA max PG 3.3 mmHg PI max anival 283.7 cm/sec PI max PG 32.3 mmHg PI dec slope 231.5 cm/sec\S\2 PI P1/2t 358.9 msec TR max anival 360.4 cm/sec
[2016-12-01 16:00] VITALS: O2SAT 93
--- NOTE | 2016-12-01 16:33 | Pharmacy Progress Note ---
Pharmacy Antibiotic Consult Date of Service: Dec 01, 2016. Pharmacy Dosing Scope Pharmacy is consulted to initiate Vancomycin IV dosing therapy, order appropriate labs and adjust drug dose/frequency. Subjective The patient is a 61 year old female admitted on Dec 01, 2016 at 09:55. Objective Height (Feet): 5 Height (Inches): 4.00 Weight (Kilograms): 131.200 Lab Results (24hrs): Laboratory Tests Test 12/01/16 06:45 BUN/Creatinine Ratio 48.3 Blood Urea Nitrogen 87 mg/dl Creatinine 1.80 mg/dl White Blood Count 18.73 K/uL Red Blood Count 3.99 M/uL Hemoglobin 9.7 g/dL Hematocrit 31.9 % Mean Corpuscular Volume 79.9 fL Mean Corpuscular Hemoglobin 24.3 pg Mean Corpuscular Hemoglobin Concent 30.4 g/dl Platelet Count 382 K/uL Mean Platelet Volume 9.3 fL Neutrophils (%) (Auto) 74.0 % Lymphocytes (%) (Auto) 10.0 % Monocytes (%) (Auto) 9.3 % Eosinophils (%) (Auto) 4.9 % Basophils (%) (Auto) 0.8 % Neutrophils # (Auto) 13.88 K/uL Lymphocytes # (Auto) 1.87 K/uL Monocytes # (Auto) 1.74 K/uL Eosinophils # (Auto) 0.91 K/uL Basophils # (Auto) 0.15 K/uL Micro Results: Item Value Date Time Blood Culture Received 12/01/16 0744 Blood Pending Blood Culture Received 12/01/16 0735 Blood Pending MRSA DNA Surveillance Screen - Final Complete 12/01/16 1255 Nasal Specimen Negative for MRSA by DNA Probe Recent Pertinent Medications Item Value Date Time Vancomycin HCl 550 ml @ 200 mls/hr 12/01/16 1500 2500 mg/Sodium TODAY@1500 ONCE/IV 12/01/16 1521 Chloride Levofloxacin 500 mg 12/01/16 0800 (Levaquin / D5W) NOW ONCE/IV 12/01/16 0848 Ceftazidime/ 54.512 ml @ 25 mls/hr 12/01/16 1700 Avibactam 0.94 gm/ Q12@0500,1700/IV Sodium Chloride Assessment & Plan [age] yo female presents with hypoxia, empirically starting IV Vancomycin. Of note, nasal swab, negative for MRSA. 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 Patient with CKD - IV and BMI 49.6 thus will dose Vancomycin conservatively. With high BMI will use smaller loading and maintenance doses consistent with model for patients BMI > 35 kg/m2. Will also extend Vancomycin dosing interval to q 20 hours due to long half life of ~17 hours Loading dose: Vancomycin 2500 mg (~19 mg/kg) IV X 1 dose then: Vancomycin 1600 mg (~12 mg/kg) IV every 20 hours. Goal peak level estimate: between 30 - 40 mcg/mL. Goal trough level estimate: between 15 - 20 mcg/mL.(high trough goals for potential pulmonary penetration to ensure penetration) Vancomycin trough level has been ordered for: November prior to the 0400 hours dose. Pharmacy will continue to follow and will adjust dose/frequency as necessary. Thank you
[2016-12-01] MEDS: INSULIN ASPART 100 UNITS/ML 3 ML PEN SC SCH ×2 (16:50→21:00)
--- NOTE | 2016-12-01 17:45 | CONSULTATION REPORT ---
DATE OF CONSULTATION: 12/01/2016 REFERRING PHYSICIAN: Brittany mancia. REASON FOR CONSULTATION: Hypoxia. HISTORY OF PRESENT ILLNESS: This patient is a 61-year-old morbidly obese female who is well known to our service with multiple previous hospital admissions. She has Pickwickian syndrome with chronic cor pulmonale due to pulmonary hypertension and chronic obstructive lung disease. She also has persistent atrial fibrillation. She was in her usual state of health at the [facility]. They did an oxygen saturation there and noticed that it was lower than normal. The patient stated that she felt a little more short of breath than usual and she was transferred to the hospital. She was given intravenous Lasix in the Emergency Department and admitted to the hospital. The patient is now resting comfortably and feels well. She states that her shortness of breath has improved. She denies chest pain. ALLERGIES: Bacitracin, CELEBREX, CODEINE, NEOMYCIN, POLYMYXIN B, SULFA MEDICATIONS PAST MEDICAL HISTORY: The patient has morbid obesity with Pickwickian syndrome, syndrome of hypoventilation, chronic obstructive pulmonary disease, persistent atrial fibrillation and a history of tobacco abuse. SOCIAL HISTORY: She stopped smoking in 2009. FAMILY MEDICAL HISTORY: Noncontributory. REVIEW OF SYSTEMS: A 10-point review of systems is negative except for the history of chief complaint. PHYSICAL EXAMINATION: GENERAL: She is alert, lying in her bed comfortably. She is morbidly obese. VITAL SIGNS: Blood pressure is 105/60, pulse is regular at 85. She is afebrile. HEENT: She is normocephalic. Pupils are equal and reactive to light. Extraocular muscles are intact bilaterally. NECK: The neck veins are flat. Carotids have good upstrokes bilaterally without bruits. Thyroid is nonpalpable. RESPIRATORY: Breath sounds are diminished at the right base. No rales or rhonchi. CARDIOVASCULAR: Heart has an irregular rhythm. Normal S1, S2, no S3, S4. No cardiac rubs or murmurs. GASTROINTESTINAL: Abdomen is soft, nontender without organomegaly. EXTREMITIES: Have hard chronic edema in the lower extremities. NEUROLOGIC: Grossly intact. SKIN: Warm to touch. LYMPH NODES: Negative to palpation. LABORATORY DATA: Hemoglobin is 9.7, creatinine is 1.8, potassium is 4.0, proB natriuretic peptide is 9840. Chest x-ray has a moderate sized right pleural effusion. Echocardiogram completed today was not of good quality; however, it does not show severe right heart changes as it did a year ago. IMPRESSION: 1. Chronic cor pulmonale due to pulmonary hypertension from Pickwickian syndrome and hypoventilation syndrome of obesity. 2. Chronic atrial fibrillation. RECOMMENDATIONS: The patient has improved with intravenous diuretics. I would continue the diuretics at this point and if she is improved by tomorrow I do not believe she needs any additional cardiac workup and can be discharged per the hospitalist service. JUAN ANTONIO
[2016-12-01 19:28] VITALS: BP 120/78; PULSE 89; TEMP 36.6; O2SAT 91
[2016-12-01 19:56] LABS: CKMB/CK RATIO 4.4 (0-3.0)
[2016-12-01] MEDS: SODIUM CHLORIDE 0.9% IV SCH (20:16)
[2016-12-01] MEDS: CEFTAZIDIME AVIBACTAM IV SCH (20:16)
[2016-12-01] MEDS ORDERED: LORAZEPAM 0.5 MG TAB PO PRN (21:00)
[2016-12-01] MEDS ORDERED: AVIBACTAM IV SCH (21:00)
[2016-12-01] MEDS ORDERED: CEFTAZIDIME IV SCH (21:00)
[2016-12-01] MEDS: ASCORBIC ACID 500 MG TAB PO SCH (21:13)
[2016-12-01] MEDS: MAGNESIUM OXIDE 400 MG TAB PO SCH (21:14)
[2016-12-01] MEDS: SACCHAROMYCES BOUL (FLORASTOR) 250 MG CAP PO SCH (21:14)
[2016-12-01] MEDS: GABAPENTIN 400 MG CAP PO SCH (21:14)
[2016-12-01] MEDS: CIPRO 0.2%/HYDROCORTISONE 1% OTIC SUSP 10 ML BTL OT SCH (21:14)
[2016-12-01] MEDS: HEPARIN SOD 5000 UNIT/0.5 ML CARP SQ SCH (21:17)
[2016-12-01] MEDS: HYDROCODONE/ACETAMOPHEN 5/325MG TAB PO PRN (22:45)
[2016-12-02] VITALS (10 sets, daily range): BP systolic 104–129; BP diastolic 58–82; PULSE 79–110; TEMP 36.4–36.8; O2SAT 90–94
[2016-12-02] MEDS: CEFTAZIDIME AVIBACTAM IV SCH ×3 (05:23→20:16)
[2016-12-02] MEDS: SODIUM CHLORIDE 0.9% IV SCH ×3 (05:23→20:16)
[2016-12-02] MEDS: LEVOTHYROXINE 125 MCG TAB PO SCH (05:23)
[2016-12-02 05:43] LABS: HEMATOCRIT 34.1 % (37-47); MEAN CELL VOLUME 80.6 fL (80-100); MEAN CORPUSCULAR HEMOGLOBIN 24.1 pg (25-34); MEAN CORPUSCULAR HGB CONC 29.9 g/dl (32-36); MEAN PLATELET VOLUME 9.2 fL (7.4-10.4); PLATELET COUNT 318 K/uL (130-400); RED BLOOD COUNT 4.23 M/uL (4.2-5.4); WHITE BLOOD COUNT 14.27 K/uL (4.8-10.8)
[2016-12-02 06:15] LABS: BUN/CREATININE RATIO 46.4 (10-20); CALCIUM 9.5 mg/dl (8.5-10.1); CREATININE 1.8 mg/dl (0.60-1.20); MAGNESIUM 2.3 mg/dl (1.8-2.4); POTASSIUM 3.8 mmol/L (3.5-5.1)
[2016-12-02 06:26] LABS: PHOSPHORUS 4.6 mg/dl (2.5-4.9); THYROID STIMULATING HORMONE 0.643 uIu/ml (0.300-4.500)
[2016-12-02 07:16] LABS: ESTIMATED AVERAGE GLUCOSE 183 mg/dl; HA1C FLAG Normal (Normal)
[2016-12-02] MEDS: INSULIN ASPART 100 UNITS/ML 3 ML PEN SC SCH ×4 (07:54→20:48)
[2016-12-02] MEDS ORDERED: FUROSEMIDE INJ 60 MG in SYRINGE 0 ML IV ONE (08:20)
[2016-12-02] MEDS: TIOTROPIUM BROMIDE 5 PUFF/90 MCG INH INH SCH (08:46)
[2016-12-02] MEDS: CIPRO 0.2%/HYDROCORTISONE 1% OTIC SUSP 10 ML BTL OT SCH ×2 (08:46→20:52)
[2016-12-02] MEDS: SACCHAROMYCES BOUL (FLORASTOR) 250 MG CAP PO SCH (08:47)
[2016-12-02] MEDS: ASPIRIN 81 MG ECTAB PO SCH (08:47)
[2016-12-02] MEDS: POTASSIUM CHLORIDE 20 MEQ TABCR PO SCH (08:48)
[2016-12-02] MEDS: GABAPENTIN 400 MG CAP PO SCH ×2 (08:48→20:52)
[2016-12-02] MEDS: CEROVITE ADV FORMULA TAB PO SCH (08:48)
[2016-12-02] MEDS: ATORVASTATIN 40 MG TAB PO SCH (08:48)
[2016-12-02] MEDS: PANTOprazole SOD 40 MG TAB PO SCH (08:49)
[2016-12-02] MEDS: CYANOCOBALAMIN 500 MCG TAB (VIT B-12) PO SCH (08:49)
[2016-12-02] MEDS: CHOLECALCIFEROL 1000 INTER.UNIT TAB PO SCH (08:49)
[2016-12-02] MEDS: ASCORBIC ACID 500 MG TAB PO SCH ×2 (08:49→20:52)
[2016-12-02] MEDS: METOPROLOL SUCC 50MG EXT REL TAB PO SCH (08:49)
[2016-12-02] MEDS: CALCITRIOL 0.25 MCG CAP PO SCH (08:49)
[2016-12-02] MEDS: SERTRALINE HCL 100 MG TAB PO SCH (08:50)
[2016-12-02] MEDS: MAGNESIUM OXIDE 400 MG TAB PO SCH ×2 (08:50→20:52)
[2016-12-02] MEDS: INSULIN GLARGINE SOLOSTAR 100 UNITS/ML 3 ML PEN SQ SCH (08:53)
[2016-12-02] MEDS: HEPARIN SOD 5000 UNIT/0.5 ML CARP SQ SCH ×2 (08:54→20:53)
[2016-12-02] MEDS: HYDROCODONE/ACETAMOPHEN 5/325MG TAB PO PRN ×2 (08:57→14:59)
[2016-12-02] MEDS ORDERED: TORSEMIDE 20 MG TAB PO SCH (09:00)
[2016-12-02] MEDS ORDERED: NURSING DECISION MEDICATION ORDER SCH (09:15)
--- NOTE | 2016-12-02 10:17 | Progress Note ---
Progress Note Date of Service Dec 02, 2016. Progress Note ID consult dictated #[id number] A/P: 1. B/L hip wounds on avycaz as outpt 2. Leukocytosis, chronic, likely multifactorial, improved -Continue avycaz, this will be continued through duration of hospital stay -Stop vanco -Continue wound care/vac -Will plan to continue follow up at wound center post d/c -thank you
[2016-12-02] MEDS ORDERED: [UNRECOGNIZED DRUG - REMARK] PRN (11:00)
[2016-12-02] MEDS: MoRPHine SULFATE 2 MG/ML CARP IV PRN ×2 (11:21→17:01)
--- NOTE | 2016-12-02 11:40 | Cardiology Follow-Up ---
Subjective General Date of Service: Dec 02, 2016. Chief Complaint: follow up edema Pt evaluation today including: conversation w/ patient, physical exam History of Present Illness The patient is a 61 year old female seen in follow up. Pt with continue LE edema. SOB perhaps a little improved. Has delatorre catheter in place. Telemetry reveals continued AF (chronic finding) V rates are well controlled. Allergies Coded Allergies: Bacitracin (Verified Allergy, Intermediate, RASH,ITCH, 08/27/16) Celecoxib (Verified Allergy, Intermediate, RASH TO SULFA DRUGS, 08/27/16) Neomycin (Verified Allergy, Intermediate, RASH,ITCH, 08/27/16) Polymyxin B (Verified Allergy, Intermediate, RASH,ITCH, 08/27/16) Sulfa Antibiotics (Verified Allergy, Intermediate, RASH,HAS TAKEN GLIPIZIDE W/O REACTION, 08/27/16) Tigecycline (Verified Adverse Reaction, Severe, MILD PANCREATITIS, ) 61 yo F placed on IV tigecycline for wound infection, after 5-6 days developed decreased appetite, had nonspecific abdominal pain from admission and was refusing to lie back for daily abd assessments because of pain in other areas of abdomen. Decreased appetite persisted, also in context of worsening depression and stated apathy, WBC continued to increase, CT chest revealed n/s changes possibly consistent with mild pancreatitis, lipase drawn and elevated, other causes ruled out, clinical pancreatitis on exam. Diruretics/albumin stopped to avoid further rehydration, tigecycline discontinued, continuing supportive care. Codeine (Verified Adverse Reaction, Intermediate, GI UPSET, 08/27/16) Social History Smoking Status: Former Smoker Hx Tobacco Use In Past Year?: No Hx Alcohol Use - Type And Amou: No Hx Substance Use - Type And Am: No Problem List Medical Problems: (1) FRED (acute kidney injury) Status: Acute (2) CHF (congestive heart failure) Status: Acute (3) Congestive heart failure Status: Acute (4) Congestive heart failure Status: Acute (5) Hypoxia Status: Acute (6) Leukocytosis Status: Acute (7) Low grade fever Status: Acute (8) Rapid atrial fibrillation Status: Acute (9) Renal insufficiency Status: Acute (10) Sepsis Status: Acute (11) Sepsis associated hypotension Status: Acute (12) Severe sepsis with acute organ dysfunction Status: Acute (13) Shortness of breath Status: Acute Physical Exam Vital Signs Last Vital Signs Documentation Date Time Temp Pulse Resp B/P Pulse Ox O2 Delivery O2 Flow Rate FiO2 12/02/16 08:45 102 116/78 12/02/16 08:15 36.5 20 90 12/02/16 08:00 Nasal Cannula 3.0 Physical Exam Constitutional: Level of Distress: chronically ill Extremities: pertinent finding (2+ edema) Additional Comments: Right buttock wound inspected, granulation tissue noted, photos were taken by wound team. Assessment and Plan Assessment and Plan Impression: Acute on chronic right heart failure -RV function actually improved on echo compared to prior. Plan: Received furosemid 60 mg IV today. Usually on torsemide 100 mg PO daily as outpt. Creatinine 1.8 mg/dl, improved to hospital stay last month. Will check BMP prior to diuretic dose tomorrow. Continue wound care therapy. Continue SQ heparin for DVT prophylaxis. She is not on coumadin due to past fall with facial/ head trauma. Laboratory Results Last 24 Hours Test 12/01/16 13:04 12/01/16 16:36 12/01/16 19:08 12/01/16 20:57 Total Creatine Kinase 15 U/L 16 U/L Creatine Kinase MB 0.8 ng/ml 0.7 ng/ml Creatine Kinase MB Ratio 5.3 4.4 Troponin I < 0.015 ng/ml 0.023 ng/ml Bedside Glucose 128 mg/dl 130 mg/dl Test 12/02/16 05:30 12/02/16 07:12 White Blood Count 14.27 K/uL Red Blood Count 4.23 M/uL Hemoglobin 10.2 g/dL Hematocrit 34.1 % Mean Corpuscular Volume 80.6 fL Mean Corpuscular Hemoglobin 24.1 pg Mean Corpuscular Hemoglobin Concent 29.9 g/dl RDW Standard Deviation 51.7 fL RDW Coefficient of Variation 17.6 % Platelet Count 318 K/uL Mean Platelet Volume 9.2 fL Sodium Level 142 mmol/L Potassium Level 3.8 mmol/L Chloride Level 100 mmol/L Carbon Dioxide Level 32 mmol/L Anion Gap 10.0 mmol/L Blood Urea Nitrogen 83 mg/dl Creatinine 1.80 mg/dl Est Creatinine Clear Calc Drug Dose 43.6 ml/min Estimated GFR () 34.4 Estimated GFR (Non- 29.6 BUN/Creatinine Ratio 46.4 Random Glucose 123 mg/dl Estimated Average Glucose 183 mg/dl Hemoglobin A1c 8.0 % Calcium Level 9.5 mg/dl Phosphorus Level 4.6 mg/dl Magnesium Level 2.3 mg/dl Thyroid Stimulating Hormone (TSH) 0.643 uIu/ml Bedside Glucose 136 mg/dl
--- NOTE | 2016-12-02 11:43 | INFECT. DISEASE CONSULTATION ---
DATE OF CONSULTATION: 12/02/2016 REQUESTING PHYSICIAN: Karla Chance MD HISTORY OF PRESENT ILLNESS: This is a 61-year-old female who has a history of congestive heart failure and AFib. She is currently a resident at [facility]. It was noted yesterday that she was having an episode of respiratory distress. She normally wears a CPAP at night and she is on chronic nasal cannula oxygen during the day. Her CPAP was on off when she was hypoxic. She was subsequently sent to the Emergency Room. In the ER, she continued to be hypoxic and was somewhat tachycardic. On my exam today, she states she is feeling overall better but still having some respiratory distress, especially when lying flat. She did have a mild temperature of 37.6 in the ER, but otherwise has been afebrile. She did have a leukocytosis of 18,000. This did improve to 14,000 today. She does have chronic leukocytosis which is usually in the range of the mid 20s. She was found to be in AFib. A chest x-ray did show evidence of failure. She has been treated with IV diuretics and is also being followed by cardiology. This morning, she states she is feeling better. On my examination today, she is undergoing dressing and wound VAC changes. She has bilateral hip VACs in place. She does follow at the wound care center and also follows with infectious diseases at the wound center as well for chronic wound infections perhaps growing multidrug resistant Klebsiella pneumonia. She has been on renally dosed of Avycaz for some time now and has been doing remarkably well with this. She has had significant improvement in the appearance of her wounds. She remains at [facility] for both IV antibiotics as well as bilateral VAC care. She denies any fevers or chills. She states her chronic lower extremity edema is much improved today. She denies any chest pain. She denies any nausea, vomiting or diarrhea. She also has a history of C. diff and was on a prolonged course of oral vancomycin at her nursing facility. All remaining review of systems are reviewed and are negative. PAST MEDICAL HISTORY: Significant for AFib, respiratory failure, chronic kidney disease, cor pulmonale, type 2 diabetes, gastroparesis, hyperlipidemia, hypertension, morbid obesity, obesity hypoventilation syndrome, sleep apnea. PAST SURGICAL HISTORY: Significant for cholecystectomy and multiple buttocks and hip wound debridements. FAMILY HISTORY: Noncontributory. SOCIAL HISTORY: Significant for history of tobacco use. There is no alcohol or drug use. She is currently a resident at [facility]. ALLERGIES: INCLUDE BACITRACIN, CELEBREX, NEOMYCIN, POLYMYXIN B, SULFA ANTIBIOTICS, TETRACYCLINE AND CODEINE. CURRENT MEDICATIONS: Include vancomycin, aspirin, Lipitor, vitamin D, vitamin B12, Lantus, Toprol-XL, multivitamins, potassium, prednisone, Zoloft, Spiriva, Protonix, Synthroid, subQ heparin, vitamin C, Neurontin, magnesium, Cipro drops, Ativan, Avycaz, insulin, Percocet, DuoNebs, insulin, Vistaril, Tylenol, Maalox, milk of magnesia, Zofran and MiraLax. PHYSICAL EXAMINATION: VITAL SIGNS: She is afebrile, pulse 102, respiratory rate is 20, blood pressure is 116/78, and oxygen saturation is 92-94%. GENERAL: She is awake, alert and oriented x3. She is in no acute distress. HEENT: Mucous membranes are moist. Extraocular muscles are intact. HEART: Regular. LUNGS: Clear bilaterally. ABDOMEN: Soft. EXTREMITIES: There is chronic lower extremity edema and erythema consistent with chronic stasis changes. Examination of the hip wounds shows significant improvement with hip wounds. There is no drainage. There is significant granulation tissue. These continued to improve. LABORATORY STUDIES: CBC today reveals a white blood cell count of 14.2, hemoglobin 10.2, platelets are 318. Chemistry panel reveals sodium of 142, potassium 3.8, chloride 100, bicarbonate 32, BUN 83, creatinine 1.8, glucose 123. Urinalysis was canceled. Flu swab was negative. Blood cultures are pending. IMAGING DATA: A chest x-ray from the Emergency Room shows congestive heart failure. ASSESSMENT AND PLAN: Infected bilateral hip wounds with multidrug resistant Klebsiella pneumonia, on chronic Avycaz with VAC therapy. She does have a significant improvement in the appearance of her wound; however, she will remain on antibiotics and wound VACs are required. She will remain on Avycaz and can be discharged back to [facility] on her current dose of Avycaz with plans to follow up in the wound care center routinely as she has been doing for the past several months. I do not see any need for vancomycin at this time and this will be discontinued. JUAN ANTONIO
[2016-12-02] MEDS ORDERED: VANCOMYCIN INJ 1,600 MG in SODIUM CHLORIDE 0.9% 500ML 500 ML IV SCH (12:00)
--- NOTE | 2016-12-02 17:26 | Progress Note ---
Subjective Date of Service: Dec 02, 2016. (Magi De Anda PA-C) Subjective Pt evaluation today including: conversation w/ patient, physical exam, chart review, lab review, review of studies, review of inpatient medication list Patient seen and evaluated. Patient had wounds evaluated and addressed per wound care. She is reporting increased pain at wound site at this time. She is sitting on the edge of the bed and looks uncomfortable. Reports that her breathing appears to be at baseline. In lower extremity edema with some improvement. She was treated with Lasix 60 mg IV 1 dose as her creatinine is adequate. Fluid balance is +998. She will give 1 dose of morphine 2 mg IV for acute pain. (Magi De Anda PA-C) Problem List Medical Problems: (1) FRED (acute kidney injury) Status: Acute (2) CHF (congestive heart failure) Status: Acute (3) Congestive heart failure Status: Acute (4) Congestive heart failure Status: Acute (5) Hypoxia Status: Acute (6) Leukocytosis Status: Acute (7) Low grade fever Status: Acute (8) Rapid atrial fibrillation Status: Acute (9) Renal insufficiency Status: Acute (10) Sepsis Status: Acute (11) Sepsis associated hypotension Status: Acute (12) Severe sepsis with acute organ dysfunction Status: Acute (13) Shortness of breath Status: Acute (Magi De Anda PA-C) Review of Systems Constitutional: No chills, No fever Respiratory: + cough, + sputum, No shortness of breath Cardiac: No chest pain Abdomen: No constipation, No diarrhea, No nausea, No pain, No vomiting Musculoskeletal: + problem reported (pain of bilateral hips and buttocks at wound sites), + swelling, No calf pain Female : No dysuria Skin: No new/changing skin lesions (Magi De Anda PA-C) Medications Current Inpatient Medications Medications (Trade) Dose Ordered Sig/Tyrone Route Start Time Stop Time Status Last Admin Dose Admin Acetaminophen (Tylenol Tab) 650 mg Q4H PRN PO 12/01/16 09:45 12/31/16 09:44 Al Hydrox/Mg Hydrox/Simethicone (Maalox Max Susp) 15 ml Q4H PRN PO 12/01/16 09:45 12/31/16 09:44 Magnesium Hydroxide (Milk Of Magnesia Susp) 30 ml Q12H PRN PO 12/01/16 09:45 12/31/16 09:44 Ondansetron HCl (Zofran Inj) 4 mg Q6H PRN IV 12/01/16 09:45 12/31/16 09:44 Polyethylene (Miralax Powder Packet) 17 gm DAILY PRN PO 12/01/16 09:45 12/31/16 09:44 Albuterol (Ventolin Hfa Inhaler) 2 puffs QID PRN INH 12/01/16 10:15 12/31/16 10:14 Ascorbic Acid (Vitamin C Tab) 500 mg BID PO 12/01/16 21:00 12/31/16 20:59 12/02/16 08:49 500 MG Aspirin (Ecotrin Tab) 81 mg DAILY PO 12/02/16 09:00 01/01/17 08:59 12/02/16 08:47 81 MG Atorvastatin Calcium (Lipitor Tab) 40 mg DAILY PO 12/02/16 09:00 01/01/17 08:59 12/02/16 08:48 40 MG Calcitriol (Rocaltrol Cap) 0.25 mcg MoWeFr@0900 PO 12/02/16 09:00 01/01/17 08:59 12/02/16 08:49 0.25 MCG Cholecalciferol (Vitamin D Tab) 2,000 inter.unit DAILY PO 12/02/16 09:00 01/01/17 08:59 12/02/16 08:49 2,000 INTER.UNIT Cyanocobalamin (Vitamin B-12 Tab) 1,000 mcg DAILY PO 12/02/16 09:00 01/01/17 08:59 12/02/16 08:49 1,000 MCG Gabapentin (Neurontin Cap) 400 mg BID PO 12/01/16 21:00 12/31/16 20:59 12/02/16 08:48 400 MG Hydroxyzine HCl (Vistaril Tab) 25 mg Q6H PRN PO 12/01/16 10:15 12/31/16 10:14 12/02/16 08:51 25 MG Insulin Glargine (Lantus Solostar Pen) 20 unit QAM SQ 12/02/16 09:00 01/01/17 08:59 12/02/16 08:53 20 UNIT Levothyroxine Sodium (Synthroid Tab) 125 mcg DAILYBB PO 12/02/16 06:00 01/01/17 05:59 12/02/16 05:23 125 MCG Magnesium Oxide (Mag-Ox Tab) 400 mg BID PO 12/01/16 21:00 12/31/16 20:59 12/02/16 08:50 400 MG Metoprolol Succinate (Toprol Xl Tab) 50 mg DAILY PO 12/02/16 09:00 01/01/17 08:59 12/02/16 08:49 50 MG Multivitamins/ Minerals (Multivitamin W/ Minerals Tab) 1 tab DAILY PO 12/02/16 09:00 01/01/17 08:59 12/02/16 08:48 1 TAB Potassium Chloride (Klor-Con Tab) 20 meq DAILY PO 12/02/16 09:00 01/01/17 08:59 12/02/16 08:48 20 MEQ Prednisone (PredniSONE TAB) 5 mg DAILY PO 12/02/16 09:00 01/01/17 08:59 12/02/16 08:49 5 MG Sertraline HCl (Zoloft Tab) 150 mg DAILY PO 12/02/16 09:00 01/01/17 08:59 12/02/16 08:50 150 MG Tiotropium [place] (Spiriva Handihaler Inhaler) 1 puff DAILY INH 12/02/16 09:00 01/01/17 08:59 12/02/16 08:46 1 PUFF Acetaminophen/ Hydrocodone Bitart ([place] 5/325 Tab) 1 tab Q6H PRN PO 12/01/16 13:15 12/15/16 13:14 12/02/16 14:59 1 TAB Acetaminophen/ Hydrocodone Bitart ([place] 5/325 Tab) 2 tab Q12H PRN PO 12/01/16 13:15 12/15/16 13:14 12/01/16 15:22 2 TAB Pantoprazole Sodium (Protonix Tab) 40 mg QAM PO 12/02/16 09:00 01/01/17 08:59 12/02/16 08:49 40 MG Insulin Aspart (novoLOG ASPART) SLIDING SCALE G... ACHS SC 12/01/16 16:15 12/31/16 16:14 12/02/16 17:00 2 UNITS Ciprofloxacin/ Hydrocortisone (Cipro Hc Otic Susp) 3 drops BID OT 12/01/16 21:00 12/31/16 20:59 12/02/16 08:46 3 DROPS Heparin Sodium (Porcine) (Heparin Sq 5000 Unit/0.5ml) 5,000 unit Q12 SQ 12/01/16 21:00 12/31/16 20:59 12/02/16 08:54 5,000 UNIT Albuterol/ Ipratropium (Duoneb) 3 ml Q2R PRN INH 12/01/16 11:00 12/31/16 10:59 Lorazepam (Ativan Tab) 0.5 mg BID PRN PO 12/01/16 21:00 12/31/16 20:59 Glucose (Glucose 40% Gel) 15-30 GRAMS 15 GRAMS... UD PRN PO 12/01/16 13:15 12/31/16 13:14 Glucose (Glucose Chew Tab) 4-8 Tablets 4 Tabl... UD PRN PO 12/01/16 13:15 12/31/16 13:14 Dextrose (Dextrose 50% 50ML Syringe) 25-50ML OF 50% DW IV FOR... UD PRN IV 12/01/16 13:15 12/31/16 13:14 Glucagon (Glucagon Inj) 1 mg UD PRN SQ 12/01/16 13:15 12/31/16 13:14 Heparin Sodium (Porcine) (Heparin 10 Unit/ ml 5 ml Flush) 1 ml PRN PRN FLUSH 12/02/16 01:00 01/01/17 00:59 Miconazole Nitrate 1 appln 1 appln MoWeFr@0900 EXT 12/04/16 11:00 01/03/17 10:59 Ceftazidime/ Avibactam/Sodium Chloride (Avycaz Iv/Nss 50ml) 56 ml @ 25 mls/hr Q8H IV 12/02/16 12:00 12/11/16 16:59 12/02/16 11:39 25 MLS/HR Miscellaneous Information 1 ea UD PRN N/A 12/02/16 11:00 01/01/17 10:59 Morphine Sulfate (MoRPHine SULFATE INJ) 2 mg Q4H PRN IV 12/02/16 11:00 12/16/16 10:59 12/02/16 17:01 2 MG (Magi De Anda, DOMINICK-C) Objective Vital Signs Date Time Temp Pulse Resp B/P Pulse Ox O2 Delivery O2 Flow Rate FiO2 12/02/16 15:39 36.8 93 22 111/71 91 Nasal Cannula 3.0 12/02/16 12:46 36.7 110 19 125/58 90 Nasal Cannula 3.0 12/02/16 12:00 90 Nasal Cannula 3.0 12/02/16 08:45 102 116/78 12/02/16 08:15 36.5 99 20 104/70 90 12/02/16 08:00 92 Nasal Cannula 3.0 12/02/16 04:10 36.4 91 20 125/77 92 BiPAP 12/02/16 04:00 BiPAP 12/02/16 00:31 36.6 79 20 129/82 94 Room Air 12/02/16 00:00 BiPAP 12/01/16 20:00 Nasal Cannula 3.0 12/01/16 19:28 36.6 89 18 120/78 91 Nasal Cannula 3.0 (Magi De Anda, PA-C) Physical Exam General Appearance: WD/WN, + mild distress (pain response), + obese Eyes: sclerae normal ENT: hearing grossly normal Neck: supple, no JVD, trachea midline Respiratory/Chest: no respiratory distress, no accessory muscle use, + decreased breath sounds, + wheezing (intermittent and scattered) Cardiovascular: no gallop, no murmur, + irregularly irregular Abdomen: normal bowel sounds, non tender, soft Extremities: + swelling (bilateral lower extremity; 2+ pitting edema bilaterally extending into thighs and abdomen) Neurologic/Psychiatric: alert, oriented x 3 Skin: normal color, warm/dry, + pertinent finding (multiple wounds of hips and buttocks with wound VAC placement) (Magi De Anda, PA-C) Laboratory Results Last 24 Hours Test 12/01/16 19:08 12/01/16 20:57 12/02/16 05:30 12/02/16 07:12 Total Creatine Kinase 16 U/L Creatine Kinase MB 0.7 ng/ml Creatine Kinase MB Ratio 4.4 Troponin I 0.023 ng/ml Bedside Glucose 130 mg/dl 136 mg/dl White Blood Count 14.27 K/uL Red Blood Count 4.23 M/uL Hemoglobin 10.2 g/dL Hematocrit 34.1 % Mean Corpuscular Volume 80.6 fL Mean Corpuscular Hemoglobin 24.1 pg Mean Corpuscular Hemoglobin Concent 29.9 g/dl RDW Standard Deviation 51.7 fL RDW Coefficient of Variation 17.6 % Platelet Count 318 K/uL Mean Platelet Volume 9.2 fL Sodium Level 142 mmol/L Potassium Level 3.8 mmol/L Chloride Level 100 mmol/L Carbon Dioxide Level 32 mmol/L Anion Gap 10.0 mmol/L Blood Urea Nitrogen 83 mg/dl Creatinine 1.80 mg/dl Est Creatinine Clear Calc Drug Dose 43.6 ml/min Estimated GFR () 34.4 Estimated GFR (Non- 29.6 BUN/Creatinine Ratio 46.4 Random Glucose 123 mg/dl Estimated Average Glucose 183 mg/dl Hemoglobin A1c 8.0 % Calcium Level 9.5 mg/dl Phosphorus Level 4.6 mg/dl Magnesium Level 2.3 mg/dl Thyroid Stimulating Hormone (TSH) 0.643 uIu/ml Test 12/02/16 11:32 12/02/16 16:01 Bedside Glucose 190 mg/dl 202 mg/dl (Magi De Anda, PA-C) Assessment and Plan Acute on Chronic R-Sided Systolic Congestive Heart Failure - Cor Pulmonale: - Low sodium diet with 1500 mL fluid restriction - Echo - report reviewed - EF 60-65%; normal right ventricular systolic function ; right heart no longer enlarged from previous echocardiogram -- Right-sided heart abnormalities no longer appreciated on echocardiogram - Lasix 60 mg IV 1 dose - will assess creatinine on AM labs for further diuresis - fluid balance +998 - Hold Torsemide 100 mg daily - consideration for resuming versus IV Lasix pending AM labs -- Patient reports Metolazone 2.5 mg is taken once weekly on Saturdays - will hold at this time - [facility] cardiology following - recommendations appreciated Otitis Externa - R Ear: - Ciprofloxacin/HC 3 drops BID in R ear Chronic Kidney Disease - Stage IV: Baseline Cr 2.0-2.5 - Creatinine currently improved from baseline - has remained stable - Monitor electrolytes and trend with BMP Chronic Hypoxic Resiraptory Failure (3 L Continuous) & Obesity Hypoventilation Syndrome/KRISTY: - CPAP set up - for night use - Prednisone 5 mg daily - Ventolin PRN and Spiriva 1 cap daily - Duo nebs Q2H PRN Persistent Atrial Fibrillation: Largely Rate Controlled - Metoprolol succinate 50 mg daily - ASA 81 mg daily - Previously on Coumadin - DC'd secondary to hematoma/fall and has been maintained on heparin T2DM - IDDM and Peripheral Neuropathy: - Lantus 20 units SC daily - SSI - goal 120-160 with correction factor 35; carb ratio 12 - Gabapentin 400 mg BID 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 Diff (August 2016): Treated with PO Vanc - Patient reports formed stool - low threshold for testing in setting of diarrhea DVT Prophylaxis: - Heparin 5000 units SC BID Code Status: FULL RESUSCITATION Disposition: Resident of [facility] - Hopeful discharge in 1-2 days (Magi De Anda, PA-C) Attending Attestation: Pt seen/examined, chart reviewed, care plan d/w DOMINICK De Anda. I agree w/ the mckeon components of her documentation. Pt's breathing is at or near her baseline. Main complaint is that of back pain and pain over her decubitus sites. Normally takes vicodin at [facility]. Tele with rate-controlled a. fib overnight. VSS no fever gen - morbidly obese neck - no obvious JVD heart - irregular lungs - decreased BS bases abd - obese ext - 1-2+ edema b/l legs; b/l wound vacs on lateral hips/gluteal region Cr 1.8 Hb 10.2 A/P: 1. dyspnea at presentation likely 2nd to acute/chronic diastolic CHF - lasix 60mg IV x 1 and follow response. 2. b/l decubitus infected ulcers - appreciate ID consult and abx recs along with wound care team 3. CKD stage 3 - creatinine stable; bmp am. 4. a. fib - rates controlled. Unclear why she is not on anticoagulant. her weight this admission is up about 10 kg from previous admission (if weights are accurate) once at or near baseline weight d/c back to [facility] Burton GARRETT MD (Ced Garrett MD)
[2016-12-03] VITALS (7 sets, daily range): BP systolic 98–111; BP diastolic 64–69; PULSE 82–94; TEMP 36.4–36.6; O2SAT 90–94
[2016-12-03] MEDS: HYDROCODONE/ACETAMOPHEN 5/325MG TAB PO PRN ×3 (00:45→20:24)
[2016-12-03] MEDS: CEFTAZIDIME AVIBACTAM IV SCH ×3 (04:19→20:06)
[2016-12-03] MEDS: SODIUM CHLORIDE 0.9% IV SCH ×3 (04:19→20:06)
[2016-12-03] MEDS: LEVOTHYROXINE 125 MCG TAB PO SCH (05:36)
[2016-12-03] MEDS: HEPARIN SOD 5000 UNIT/0.5 ML CARP SQ SCH ×3 (05:37→20:32)
[2016-12-03 07:44] LABS: BUN/CREATININE RATIO 44.1 (10-20); CALCIUM 9.6 mg/dl (8.5-10.1); CREATININE 1.9 mg/dl (0.60-1.20); POTASSIUM 3.8 mmol/L (3.5-5.1)
[2016-12-03] MEDS: CEROVITE ADV FORMULA TAB PO SCH (07:51)
[2016-12-03] MEDS: SERTRALINE HCL 100 MG TAB PO SCH (07:51)
[2016-12-03] MEDS: METOPROLOL SUCC 50MG EXT REL TAB PO SCH (07:52)
[2016-12-03] MEDS: ASPIRIN 81 MG ECTAB PO SCH (07:52)
[2016-12-03] MEDS: PANTOprazole SOD 40 MG TAB PO SCH (07:52)
[2016-12-03] MEDS: ATORVASTATIN 40 MG TAB PO SCH (07:52)
[2016-12-03] MEDS: CYANOCOBALAMIN 500 MCG TAB (VIT B-12) PO SCH (07:52)
[2016-12-03] MEDS: MAGNESIUM OXIDE 400 MG TAB PO SCH ×2 (07:53→20:09)
[2016-12-03] MEDS: CHOLECALCIFEROL 1000 INTER.UNIT TAB PO SCH (07:53)
[2016-12-03] MEDS: CIPRO 0.2%/HYDROCORTISONE 1% OTIC SUSP 10 ML BTL OT SCH ×2 (07:53→20:09)
[2016-12-03] MEDS: ASCORBIC ACID 500 MG TAB PO SCH ×2 (07:53→20:09)
[2016-12-03] MEDS: POTASSIUM CHLORIDE 20 MEQ TABCR PO SCH (07:54)
[2016-12-03] MEDS: TIOTROPIUM BROMIDE 5 PUFF/90 MCG INH INH SCH (07:54)
[2016-12-03] MEDS: GABAPENTIN 400 MG CAP PO SCH ×2 (07:54→20:09)
[2016-12-03] MEDS: INSULIN ASPART 100 UNITS/ML 3 ML PEN SC SCH ×4 (08:02→20:29)
[2016-12-03] MEDS: INSULIN GLARGINE SOLOSTAR 100 UNITS/ML 3 ML PEN SQ SCH (08:03)
[2016-12-03] MEDS ORDERED: METOLAZONE 2.5 MG TAB PO ONE (08:15)
[2016-12-03] MEDS ORDERED: FUROSEMIDE INJ 60 MG in SYRINGE 0 ML IV ONE (08:45)
--- NOTE | 2016-12-03 08:51 | PROGRESS NOTE ---
DATE: 12/02/2016 DATE: 12/02/2016. SUBJECTIVE: The patient is well known to the [facility] recently seen 12 days prior. The patient recently admitted to the hospital for the management of cor pulmonale. The patient has no specific complaints today regarding any chest pain or shortness of breath. The patient denies any increased hip pain or discomfort from the ulcerative sites. OBJECTIVE: The patient's vital signs were reviewed and found to be unremarkable. The patient is currently afebrile. The left thigh proximal site today measures 17 x 4.7 x 2.1. Distal site measures 6.3 x 1 x 0.9 cm. Excellent granulation tissue is evolving throughout the entire base. No central slough. No active drainage. No periwound erythema noted. Right hip ulceration today measures 13 x 2.8 x 2 cm, again excellent granulation tissue in the base. No active drainage or periwound erythema noted. ASSESSMENT: 1. Stage III pressure ulcers to both hip regions. 2. Stage III pressure ulcer to the left thigh region. PLAN: At this time, no debridement is indicated. The left proximal ulceration will be managed today with an irrigating wound VAC, black foam, irrigation 10 minutes on, 2 hours negative pressure 125 mm. The left distal site will be managed with Erin and Optifoam. The right hip will be managed with Aquacel AG and foam. These dressings will be changed every other day. The patient will be reevaluated in approximately 1 week upon discharge from the hospital or sooner if the patient has a protracted length of stay.
[2016-12-03 09:28] LABS: INR 1.1 (0.9-1.1); PROTHROMBIN TIME (PATIENT) 12.2 SECONDS (9.0-12.0)
--- NOTE | 2016-12-03 11:00 | Infectious Disease Progress Nt ---
Progress Note Date of Service Dec 03, 2016. Subjective Pt evaluation today including: conversation w/ patient, physical exam, chart review, lab review, review of studies, review of inpatient medication list WBC count not redrawn this morning but was 14.[address] Mejía's recommendations were reviewed. Creatinine was 1.9 today. Blood cultures continue to show NGTD. I reviewed wound images. She has been afebrile. She continues to have some burning pain in the left hip. She continues to tolerate Avycaz well. All Other Systems: Reviewed and Negative Medications Current Inpatient Medications Medications (Trade) Dose Ordered Sig/Tyrone Route Start Time Stop Time Status Last Admin Dose Admin Acetaminophen (Tylenol Tab) 650 mg Q4H PRN PO 12/01/16 09:45 12/31/16 09:44 Al Hydrox/Mg Hydrox/Simethicone (Maalox Max Susp) 15 ml Q4H PRN PO 12/01/16 09:45 12/31/16 09:44 Magnesium Hydroxide (Milk Of Magnesia Susp) 30 ml Q12H PRN PO 12/01/16 09:45 12/31/16 09:44 Ondansetron HCl (Zofran Inj) 4 mg Q6H PRN IV 12/01/16 09:45 12/31/16 09:44 Polyethylene (Miralax Powder Packet) 17 gm DAILY PRN PO 12/01/16 09:45 12/31/16 09:44 Albuterol (Ventolin Hfa Inhaler) 2 puffs QID PRN INH 12/01/16 10:15 12/31/16 10:14 Ascorbic Acid (Vitamin C Tab) 500 mg BID PO 12/01/16 21:00 12/31/16 20:59 12/03/16 07:53 500 MG Aspirin (Ecotrin Tab) 81 mg DAILY PO 12/02/16 09:00 01/01/17 08:59 12/03/16 07:52 81 MG Atorvastatin Calcium (Lipitor Tab) 40 mg DAILY PO 12/02/16 09:00 01/01/17 08:59 12/03/16 07:52 40 MG Calcitriol (Rocaltrol Cap) 0.25 mcg MoWeFr@0900 PO 12/02/16 09:00 01/01/17 08:59 12/02/16 08:49 0.25 MCG Cholecalciferol (Vitamin D Tab) 2,000 inter.unit DAILY PO 12/02/16 09:00 01/01/17 08:59 12/03/16 07:53 2,000 INTER.UNIT Cyanocobalamin (Vitamin B-12 Tab) 1,000 mcg DAILY PO 12/02/16 09:00 01/01/17 08:59 12/03/16 07:52 1,000 MCG Gabapentin (Neurontin Cap) 400 mg BID PO 12/01/16 21:00 12/31/16 20:59 12/03/16 07:54 400 MG Hydroxyzine HCl (Vistaril Tab) 25 mg Q6H PRN PO 12/01/16 10:15 12/31/16 10:14 12/02/16 08:51 25 MG Insulin Glargine (Lantus Solostar Pen) 20 unit QAM SQ 12/02/16 09:00 01/01/17 08:59 12/03/16 08:03 20 UNIT Levothyroxine Sodium (Synthroid Tab) 125 mcg DAILYBB PO 12/02/16 06:00 01/01/17 05:59 12/03/16 05:36 125 MCG Magnesium Oxide (Mag-Ox Tab) 400 mg BID PO 12/01/16 21:00 12/31/16 20:59 12/03/16 07:53 400 MG Metoprolol Succinate (Toprol Xl Tab) 50 mg DAILY PO 12/02/16 09:00 01/01/17 08:59 12/03/16 07:52 50 MG Multivitamins/ Minerals (Multivitamin W/ Minerals Tab) 1 tab DAILY PO 12/02/16 09:00 01/01/17 08:59 12/03/16 07:51 1 TAB Potassium Chloride (Klor-Con Tab) 20 meq DAILY PO 12/02/16 09:00 01/01/17 08:59 12/03/16 07:54 20 MEQ Prednisone (PredniSONE TAB) 5 mg DAILY PO 12/02/16 09:00 01/01/17 08:59 12/03/16 07:52 5 MG Sertraline HCl (Zoloft Tab) 150 mg DAILY PO 12/02/16 09:00 01/01/17 08:59 12/03/16 07:51 150 MG Tiotropium [place] (Spiriva Handihaler Inhaler) 1 puff DAILY INH 12/02/16 09:00 01/01/17 08:59 12/03/16 07:54 1 PUFF Acetaminophen/ Hydrocodone Bitart ([place] 5/325 Tab) 1 tab Q6H PRN PO 12/01/16 13:15 12/15/16 13:14 12/03/16 08:07 1 TAB Acetaminophen/ Hydrocodone Bitart ([place] 5/325 Tab) 2 tab Q12H PRN PO 12/01/16 13:15 12/15/16 13:14 12/01/16 15:22 2 TAB Pantoprazole Sodium (Protonix Tab) 40 mg QAM PO 12/02/16 09:00 01/01/17 08:59 12/03/16 07:52 40 MG Insulin Aspart (novoLOG ASPART) SLIDING SCALE G... ACHS SC 12/01/16 16:15 12/03/16 08:02 5 UNITS Ciprofloxacin/ Hydrocortisone (Cipro Hc Otic Susp) 3 drops BID OT 12/01/16 21:00 12/31/16 20:59 12/03/16 07:53 3 DROPS Albuterol/ Ipratropium (Duoneb) 3 ml Q2R PRN INH 12/01/16 11:00 12/31/16 10:59 Lorazepam (Ativan Tab) 0.5 mg BID PRN PO 12/01/16 21:00 12/31/16 20:59 Glucose (Glucose 40% Gel) 15-30 GRAMS 15 GRAMS... UD PRN PO 12/01/16 13:15 12/31/16 13:14 Glucose (Glucose Chew Tab) 4-8 Tablets 4 Tabl... UD PRN PO 12/01/16 13:15 12/31/16 13:14 Dextrose (Dextrose 50% 50ML Syringe) 25-50ML OF 50% DW IV FOR... UD PRN IV 12/01/16 13:15 12/31/16 13:14 Glucagon (Glucagon Inj) 1 mg UD PRN SQ 12/01/16 13:15 12/31/16 13:14 Heparin Sodium (Porcine) (Heparin 10 Unit/ ml 5 ml Flush) 1 ml PRN PRN FLUSH 12/02/16 01:00 01/01/17 00:59 12/03/16 06:37 1 ML Miconazole Nitrate 1 appln 1 appln MoWeFr@0900 EXT 12/04/16 11:00 01/03/17 10:59 Ceftazidime/ Avibactam/Sodium Chloride (Avycaz Iv/Nss 50ml) 56 ml @ 25 mls/hr Q8H IV 12/02/16 12:00 12/11/16 16:59 12/03/16 04:19 25 MLS/HR Miscellaneous Information 1 ea UD PRN N/A 12/02/16 11:00 01/01/17 10:59 Hydromorphone HCl (Dilaudid Inj) 0.5 mg Q4H PRN IV 12/02/16 19:45 12/16/16 19:44 Heparin Sodium (Porcine) (Heparin Sq 5000 Unit/0.5ml) 5,000 unit Q8H SQ 12/03/16 05:00 01/02/17 04:59 12/03/16 05:37 5,000 UNIT Warfarin Sodium (Coumadin Tab) 2.5 mg DAILY@16 PO 12/03/16 16:00 01/02/17 15:59 Objective Vital Signs Date Time Temp Pulse Resp B/P Pulse Ox O2 Delivery O2 Flow Rate FiO2 12/03/16 08:00 Nasal Cannula 12/03/16 07:42 36.6 84 18 111/69 90 Nasal Cannula 5.0 12/03/16 04:00 Nasal Cannula 3.0 12/03/16 04:00 36.6 82 18 108/64 92 Nasal Cannula 3.0 12/03/16 00:00 36.4 89 20 103/68 93 Nasal Cannula 3.0 12/03/16 00:00 Nasal Cannula 3.0 12/02/16 23:21 3.0 12/02/16 20:16 36.6 83 16 123/71 92 Nasal Cannula 3.0 12/02/16 20:00 Nasal Cannula 3.0 12/02/16 16:00 91 Nasal Cannula 3.0 12/02/16 15:39 36.8 93 22 111/71 91 Nasal Cannula 3.0 12/02/16 12:46 36.7 110 19 125/58 90 Nasal Cannula 3.0 12/02/16 12:00 90 Nasal Cannula 3.0 Physical Exam General Appearance: no apparent distress, + obese Eyes: normal inspection, sclerae normal ENT: hearing grossly normal Neck: supple, trachea midline Respiratory/Chest: chest non-tender, normal breath sounds, no respiratory distress, no accessory muscle use Cardiovascular: + irregularly irregular Abdomen: normal bowel sounds Extremities: + swelling (1+ pitting edema b/l le ), + pertinent finding ( chronic erythema of b/l lower extremities.) Neurologic/Psychiatric: alert, normal mood/affect Skin: normal color, warm/dry, no rash Laboratory Results Item Value Date Time MRSA DNA Surveillance Screen - Final Complete 12/01/16 1255 Nasal Specimen Negative for MRSA by DNA Probe Blood Culture - Preliminary Resulted 12/01/16 0744 Blood NO GROWTH TO DATE. Blood Culture - Preliminary Resulted 12/01/16 0735 Blood NO GROWTH TO DATE. Last 24 Hours Test 12/02/16 11:32 12/02/16 16:01 12/02/16 20:30 12/03/16 06:59 Bedside Glucose 190 mg/dl 202 mg/dl 150 mg/dl Sodium Level 141 mmol/L Potassium Level 3.8 mmol/L Chloride Level 101 mmol/L Carbon Dioxide Level 30 mmol/L Anion Gap 10.0 mmol/L Blood Urea Nitrogen 84 mg/dl Creatinine 1.90 mg/dl Est Creatinine Clear Calc Drug Dose 41.7 ml/min Estimated GFR () 32.2 Estimated GFR (Non- 27.8 BUN/Creatinine Ratio 44.1 Random Glucose 113 mg/dl Calcium Level 9.6 mg/dl Test 12/03/16 07:03 12/03/16 09:00 Bedside Glucose 132 mg/dl Prothrombin Time 12.2 SECONDS Prothromb Time International Ratio 1.1 Assessment and Plan Morbidly obese female with bilateral hip wound infections with multidrug resistant Klebsiella on chronic Avycaz. She continues to have a wound VAC on her left hip wound and is otherwise continuing wound care follow up. She should continue Avycaz upon discharge and continue wound care follow up. She likely will continue on Avycaz until her wounds are mostly healed/graft is completed. She will need follow up with Dr. Mcduffie at the [facility], but otherwise she is OK for D/C from ID perspective. Thanks PROVIDER ADDENDUM: Patient reviewed with Ms. Pandya. Agree with above assessment.
--- NOTE | 2016-12-03 11:41 | Cardiology Follow-Up ---
Subjective General Date of Service: Dec 03, 2016. Chief Complaint: follow up edema Pt evaluation today including: conversation w/ patient, physical exam History of Present Illness The patient is a 61 year old female seen in follow up. Patient with continued SOB and LE edema. Allergies Coded Allergies: Bacitracin (Verified Allergy, Intermediate, RASH,ITCH, 08/27/16) Celecoxib (Verified Allergy, Intermediate, RASH TO SULFA DRUGS, 08/27/16) Neomycin (Verified Allergy, Intermediate, RASH,ITCH, 08/27/16) Polymyxin B (Verified Allergy, Intermediate, RASH,ITCH, 08/27/16) Sulfa Antibiotics (Verified Allergy, Intermediate, RASH,HAS TAKEN GLIPIZIDE W/O REACTION, 08/27/16) Tigecycline (Verified Adverse Reaction, Severe, MILD PANCREATITIS, ) 61 yo F placed on IV tigecycline for wound infection, after 5-6 days developed decreased appetite, had nonspecific abdominal pain from admission and was refusing to lie back for daily abd assessments because of pain in other areas of abdomen. Decreased appetite persisted, also in context of worsening depression and stated apathy, WBC continued to increase, CT chest revealed n/s changes possibly consistent with mild pancreatitis, lipase drawn and elevated, other causes ruled out, clinical pancreatitis on exam. Diruretics/albumin stopped to avoid further rehydration, tigecycline discontinued, continuing supportive care. Codeine (Verified Adverse Reaction, Intermediate, GI UPSET, 08/27/16) Social History Smoking Status: Former Smoker Hx Tobacco Use In Past Year?: No Hx Alcohol Use - Type And Amou: No Hx Substance Use - Type And Am: No Problem List Medical Problems: (1) FRED (acute kidney injury) Status: Acute (2) CHF (congestive heart failure) Status: Acute (3) Congestive heart failure Status: Acute (4) Congestive heart failure Status: Acute (5) Hypoxia Status: Acute (6) Leukocytosis Status: Acute (7) Low grade fever Status: Acute (8) Rapid atrial fibrillation Status: Acute (9) Renal insufficiency Status: Acute (10) Sepsis Status: Acute (11) Sepsis associated hypotension Status: Acute (12) Severe sepsis with acute organ dysfunction Status: Acute (13) Shortness of breath Status: Acute Physical Exam Vital Signs Last Vital Signs Documentation Date Time Temp Pulse Resp B/P Pulse Ox O2 Delivery O2 Flow Rate FiO2 12/03/16 08:00 Nasal Cannula 12/03/16 07:42 36.6 84 18 111/69 90 5.0 Physical Exam Constitutional: Level of Distress: chronically ill Lungs: Auscultation: pertinent finding (mildly decreased BS at bases ) Cardiovascular: Heart Auscultation: no murmurs, irregular rate rhythm Extremities: pertinent finding (2+ edema) Neurologic: Gait & Station: pertinent finding (no focal defiicts ) Assessment and Plan Assessment and Plan Impression: Acute on chronic right heart failure -RV function actually improved on echo compared to prior. Plan: metolazone 2.5 mg PO x 1 then furosemide 60 mg IV x 1. Pt not on coumadin due to fall with facial trauma when ill (likely septic then) a few months ago. She is at high risk for stroke. Will resume coumadin with caution. Continue SQ heparin for DVT prophylaxis until INR is close to 2. Laboratory Results Last 24 Hours Test 12/02/16 16:01 12/02/16 20:30 12/03/16 06:59 12/03/16 07:03 Bedside Glucose 202 mg/dl 150 mg/dl 132 mg/dl Sodium Level 141 mmol/L Potassium Level 3.8 mmol/L Chloride Level 101 mmol/L Carbon Dioxide Level 30 mmol/L Anion Gap 10.0 mmol/L Blood Urea Nitrogen 84 mg/dl Creatinine 1.90 mg/dl Est Creatinine Clear Calc Drug Dose 41.7 ml/min Estimated GFR () 32.2 Estimated GFR (Non- 27.8 BUN/Creatinine Ratio 44.1 Random Glucose 113 mg/dl Calcium Level 9.6 mg/dl Test 12/03/16 09:00 Prothrombin Time 12.2 SECONDS Prothromb Time International Ratio 1.1
[2016-12-03] MEDS: HYDROmorphone INJ 0.5 MG/0.5 ML SYR IV PRN (14:26)
[2016-12-03] MEDS: WARFARIN SOD 2.5 MG TAB PO SCH (15:44)
--- NOTE | 2016-12-03 20:21 | Hospitalist Progress Note ---
Hospitalist Progress Note Date of Service Dec 03, 2016. Subjective Pt evaluation today including: conversation w/ patient, physical exam, chart review, lab review, review of studies, review of inpatient medication list Patient is feeling better, but reports she has not "peed" like she had in the past with diuretics. She was started on warfarin yesterday and I discussed this again with her. Additional Comments: A 10 system review was performed and all were negative. Positives were placed in the subjective section. Objective Vital Signs Date Time Temp Pulse Resp B/P Pulse Ox O2 Delivery O2 Flow Rate FiO2 12/03/16 19:25 36.6 94 22 105/67 93 Nasal Cannula 4.0 12/03/16 16:00 Nasal Cannula 3.0 12/03/16 15:50 36.6 91 20 98/64 90 Nasal Cannula 3.0 12/03/16 14:32 Nasal Cannula 5.0 12/03/16 12:00 Nasal Cannula 12/03/16 11:55 36.6 93 18 99/68 94 Nasal Cannula 12/03/16 08:00 Nasal Cannula 12/03/16 07:42 36.6 84 18 111/69 90 Nasal Cannula 5.0 12/03/16 04:00 Nasal Cannula 3.0 12/03/16 04:00 36.6 82 18 108/64 92 Nasal Cannula 3.0 12/03/16 00:00 36.4 89 20 103/68 93 Nasal Cannula 3.0 12/03/16 00:00 Nasal Cannula 3.0 12/02/16 23:21 3.0 12/02/16 20:16 36.6 83 16 123/71 92 Nasal Cannula 3.0 Physical Exam Notes: GEN: Awake, alert, and oriented x 3. Not in acute distress HEENT: Tm's intact, no inflammation, EOMI, PERRLA, MMM Neck: Soft, supple Lungs: Decreased breath sounds at the bases. Heart: Irreg, nrl S1S2 without murmurs, rubs or gallops Abdomen: Soft, NT, ND, + BS EXT: No C/C +1 pitting edema b/l ankles to knees. NEURO: CN's II-XII grossly intact, non-focal Skin: warm, dry, no rashes PSYCH: pleasant, cooperative. Laboratory Results Last 24 Hours Test 12/02/16 20:30 12/03/16 06:59 3/21/17 07:03 12/03/16 09:00 Bedside Glucose 150 mg/dl 132 mg/dl Sodium Level 141 mmol/L Potassium Level 3.8 mmol/L Chloride Level 101 mmol/L Carbon Dioxide Level 30 mmol/L Anion Gap 10.0 mmol/L Blood Urea Nitrogen 84 mg/dl Creatinine 1.90 mg/dl Est Creatinine Clear Calc Drug Dose 41.7 ml/min Estimated GFR () 32.2 Estimated GFR (Non- 27.8 BUN/Creatinine Ratio 44.1 Random Glucose 113 mg/dl Calcium Level 9.6 mg/dl Prothrombin Time 12.2 SECONDS Prothromb Time International Ratio 1.1 Test 12/03/16 11:38 12/03/16 16:03 Bedside Glucose 140 mg/dl 205 mg/dl Assessment and Plan 1) Cor Pulmonale - Low sodium diet with 1500 mL fluid restriction 2) Chronic Kidney Disease - Stage IV: Baseline Cr 2.0-2.5 3) Chronic Hypoxic Resiraptory Failure (3 L Continuous) & Obesity Hypoventilation Syndrome/KRISTY: - CPAP set up - for night use - Prednisone 5 mg daily - Ventolin PRN and Spiriva 1 cap daily - Duo nebs Q2H PRN 4) Atrial Fibrillation: - Metoprolol succinate 50 mg daily - ASA 81 mg daily - Warfarin restarted. 5) Type II DM insulin requiring. 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 Mejía's consult. 7) Hypothyroidism: - Synthroid 125 mcg daily DVT prophylaxis - sub-q heparin until warfarin therapeutic.
[2016-12-04] VITALS (9 sets, daily range): BP systolic 98–125; BP diastolic 60–80; PULSE 80–95; TEMP 36.5–36.7; O2SAT 84–95
[2016-12-04] MEDS ORDERED: VANCOMYCIN TROUGH SCH (03:30)
[2016-12-04] MEDS: SODIUM CHLORIDE 0.9% IV SCH ×2 (04:09→12:29)
[2016-12-04] MEDS: CEFTAZIDIME AVIBACTAM IV SCH ×2 (04:09→12:29)
[2016-12-04] MEDS: HEPARIN SOD 5000 UNIT/0.5 ML CARP SQ SCH ×2 (04:25→13:00)
[2016-12-04] MEDS: LEVOTHYROXINE 125 MCG TAB PO SCH (05:40)
[2016-12-04 08:01] LABS: INR 1.1 (0.9-1.1)
[2016-12-04] MEDS: INSULIN ASPART 100 UNITS/ML 3 ML PEN SC SCH ×3 (08:11→17:29)
[2016-12-04] MEDS: METOPROLOL SUCC 50MG EXT REL TAB PO SCH (08:12)
[2016-12-04] MEDS: CYANOCOBALAMIN 500 MCG TAB (VIT B-12) PO SCH (08:13)
[2016-12-04] MEDS: CHOLECALCIFEROL 1000 INTER.UNIT TAB PO SCH (08:13)
[2016-12-04] MEDS: ASPIRIN 81 MG ECTAB PO SCH (08:13)
[2016-12-04] MEDS: ATORVASTATIN 40 MG TAB PO SCH (08:13)
[2016-12-04] MEDS: PANTOprazole SOD 40 MG TAB PO SCH (08:14)
[2016-12-04] MEDS: SERTRALINE HCL 100 MG TAB PO SCH (08:14)
[2016-12-04] MEDS: CEROVITE ADV FORMULA TAB PO SCH (08:14)
[2016-12-04] MEDS: GABAPENTIN 400 MG CAP PO SCH (08:14)
[2016-12-04] MEDS: CIPRO 0.2%/HYDROCORTISONE 1% OTIC SUSP 10 ML BTL OT SCH (08:15)
[2016-12-04] MEDS: POTASSIUM CHLORIDE 20 MEQ TABCR PO SCH (08:15)
[2016-12-04] MEDS: CALCITRIOL 0.25 MCG CAP PO SCH (08:15)
[2016-12-04] MEDS: MAGNESIUM OXIDE 400 MG TAB PO SCH (08:16)
[2016-12-04] MEDS: TIOTROPIUM BROMIDE 5 PUFF/90 MCG INH INH SCH (08:16)
[2016-12-04] MEDS: ASCORBIC ACID 500 MG TAB PO SCH (08:17)
[2016-12-04] MEDS: INSULIN GLARGINE SOLOSTAR 100 UNITS/ML 3 ML PEN SQ SCH (08:18)
[2016-12-04 08:24] LABS: BUN/CREATININE RATIO 44.9 (10-20); CALCIUM 9.7 mg/dl (8.5-10.1); CREATININE 1.9 mg/dl (0.60-1.20); POTASSIUM 3.8 mmol/L (3.5-5.1)
[2016-12-04] MEDS: HYDROCODONE/ACETAMOPHEN 5/325MG TAB PO PRN (08:34)
[2016-12-04] MEDS ORDERED: TORSEMIDE 20 MG TAB PO SCH (09:00)
--- NOTE | 2016-12-04 10:56 | Cardiology Follow-Up ---
Subjective General Date of Service: Dec 04, 2016. Chief Complaint: follow up edema Pt evaluation today including: conversation w/ patient, physical exam History of Present Illness The patient is a 61 year old female seen in follow up. Pt denies chest pain. Still with edema. Respiratory status approaching baseline. Allergies Coded Allergies: Bacitracin (Verified Allergy, Intermediate, RASH,ITCH, 08/27/16) Celecoxib (Verified Allergy, Intermediate, RASH TO SULFA DRUGS, 08/27/16) Neomycin (Verified Allergy, Intermediate, RASH,ITCH, 08/27/16) Polymyxin B (Verified Allergy, Intermediate, RASH,ITCH, 08/27/16) Sulfa Antibiotics (Verified Allergy, Intermediate, RASH,HAS TAKEN GLIPIZIDE W/O REACTION, 08/27/16) Tigecycline (Verified Adverse Reaction, Severe, MILD PANCREATITIS, ) 61 yo F placed on IV tigecycline for wound infection, after 5-6 days developed decreased appetite, had nonspecific abdominal pain from admission and was refusing to lie back for daily abd assessments because of pain in other areas of abdomen. Decreased appetite persisted, also in context of worsening depression and stated apathy, WBC continued to increase, CT chest revealed n/s changes possibly consistent with mild pancreatitis, lipase drawn and elevated, other causes ruled out, clinical pancreatitis on exam. Diruretics/albumin stopped to avoid further rehydration, tigecycline discontinued, continuing supportive care. Codeine (Verified Adverse Reaction, Intermediate, GI UPSET, 08/27/16) Social History Smoking Status: Former Smoker Hx Tobacco Use In Past Year?: No Hx Alcohol Use - Type And Amou: No Hx Substance Use - Type And Am: No Problem List Medical Problems: (1) FRED (acute kidney injury) Status: Acute (2) CHF (congestive heart failure) Status: Acute (3) Congestive heart failure Status: Acute (4) Congestive heart failure Status: Acute (5) Congestive heart failure Status: Acute (6) Hypoxia Status: Acute (7) Leukocytosis Status: Acute (8) Leukocytosis Status: Acute (9) Low grade fever Status: Acute (10) Low grade fever Status: Acute (11) Rapid atrial fibrillation Status: Acute (12) Rapid atrial fibrillation Status: Acute (13) Renal insufficiency Status: Acute (14) Sepsis Status: Acute (15) Sepsis associated hypotension Status: Acute (16) Severe sepsis with acute organ dysfunction Status: Acute (17) Shortness of breath Status: Acute Physical Exam Vital Signs Last Vital Signs Documentation Date Time Temp Pulse Resp B/P Pulse Ox O2 Delivery O2 Flow Rate FiO2 12/04/16 10:27 36.7 95 20 90 3.0 12/04/16 10:24 98/62 Nasal Cannula Physical Exam Constitutional: Level of Distress: chronically ill Neck: supple Lungs: Auscultation: pertinent finding (mildly decreased BS at bases ) Cardiovascular: Heart Auscultation: no murmurs, irregular rate rhythm Extremities: pertinent finding (2+ edema) Neurologic: Gait & Station: pertinent finding (no focal defiicts ) Assessment and Plan Assessment and Plan Impression: Acute on chronic right heart failure -RV function actually improved on echo compared to prior. Plan: Agree with resuming home torsemide dose. Pt had not on coumadin due to fall with facial trauma when ill (likely septic then) a few months ago. She is at high risk for stroke. Will resume coumadin with caution. Continue SQ heparin for DVT prophylaxis until INR is close to 2. Laboratory Results Last 24 Hours Test 12/03/16 11:38 12/03/16 16:03 12/03/16 20:28 12/04/16 06:19 Bedside Glucose 140 mg/dl 205 mg/dl 126 mg/dl 108 mg/dl Test 12/04/16 07:27 Prothrombin Time 12.0 SECONDS Prothromb Time International Ratio 1.1 Sodium Level 141 mmol/L Potassium Level 3.8 mmol/L Chloride Level 101 mmol/L Carbon Dioxide Level 30 mmol/L Anion Gap 10.0 mmol/L Blood Urea Nitrogen 85 mg/dl Creatinine 1.90 mg/dl Est Creatinine Clear Calc Drug Dose 41.7 ml/min Estimated GFR () 32.2 Estimated GFR (Non- 27.8 BUN/Creatinine Ratio 44.9 Random Glucose 96 mg/dl Calcium Level 9.7 mg/dl
[2016-12-04] MEDS ORDERED: MICONAZOLE NITRATE POWDER 43 GM EXT SCH (11:00)
[2016-12-04] MEDS: HYDROmorphone INJ 0.5 MG/0.5 ML SYR IV PRN ×2 (11:08→15:52)
[2016-12-04] MEDS ORDERED: CMD25 PO (12:02)
[2016-12-04] MEDS ORDERED: MCTP EXT (12:02)
[2016-12-04] MEDS ORDERED: CPROT OT (12:02)
[2016-12-04] MEDS ORDERED: [UNRECOGNIZED DRUG - CODE] IV (12:02)
--- NOTE | 2016-12-04 12:07 | Discharge Instructions ---
Discharge Instructions Date of Service Dec 04, 2016. Admission Reason for Admission: Cor Pulmon[place] Discharge Discharge Diagnosis / Problem: Cor Pulmonale Discharge Goals Goal(s): Decrease discomfort, Improve function, Increase independence Activity Recommendations Activity Level: Assistance Required . Additional Information Patient informed of condition: Yes Advance Directives: Yes DNR: No Level of Care: Skilled Communicable Disease: No Prognosis: Improving Oxygen at (LPM): 3 L/min Instructions / Follow-Up Instructions / Follow-Up Acute on Chronic R-Sided Systolic Congestive Heart Failure - Cor [place]mon[place]: -Recommend T2DM and low sodium diet - Echo - EF 60-65%; normal right ventricular systolic function; right heart no longer enlarged from previous echocardiogram -- Right-sided heart abnormalities no longer appreciated on echocardiogram - Diuresed with Lasix IV during hospitalization - continue torsemide 100 mg daily and Metolazone 2.5 mg weekly (Saturdays) - [facility] cardiology following -plan for outpatient follow-up in 1-2 weeks with shop technician Otitis Externa - R Ear: - Ciprofloxacin/HC 3 drops BID in R ear - Rx provided to finish x 3 more days Chronic Kidney Disease - Stage IV: Baseline Cr 2.0-2.5 - Creatinine currently improved from baseline - has remained stable Chronic Hypoxic Resiraptory Failure (3 L Continuous) & Obesity Hypoventilation Syndrome/KRISTY: - CPAP or night use and continuous 3 L/min NC - Prednisone 5 mg daily - Ventolin PRN and Spiriva 1 cap daily - Duo nebs Q2H PRN Persistent Atrial Fibrillation: Largely Rate Controlled - Metoprolol succinate 50 mg daily - ASA 81 mg daily - Patient was reinstituted on Coumadin - INR currently 1.1 -- Continue heparin 5000 units BID as bridge therapy until INR therapeutic between 2-3 -- Recommend INR to be checked in 1-2 days and adjust dosing accordingly - heparin may be discontinued when therapeutic - Given comorbidities, atrial fibrillation, and sedentary lifestyle she is at increased risk for stroke or PE - continued assessment for fall risk T2DM - IDDM and Peripheral Neuropathy: - Lantus 20 units SC daily and sliding scale coverage - Gabapentin 400 mg BID 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 Diff (August 2016): Treated with PO Vanc - Patient reports formed stool - low threshold for testing in setting of diarrhea DVT Prophylaxis: - Heparin 5000 units SC BID as bridge therapy with Coumadin Code Status: FULL RESUSCITATION Disposition: Follow-up with Wound Care and Infectious Disease in 7 days Current Hospital Diet Patient's current hospital diet: Low Sodium Diet (2gm Na), Diabetes Type 2 Diet Discharge Diet Recommended Diet: Low Sodium Diet (2gm Na), Diabetes Type 2 Diet Pending Studies Studies pending at discharge: no Physician Orders On Transfer POLST Discussion: Not Applicable Laboratory Results Hemoglobin A1c Test 12/02/16 05:30 Range/Units Estimated Average Glucose 183 mg/dl Hemoglobin A1c 8.0 H 4.5-5.6 % Medical Emergencies . Who to Call and When: Medical Emergencies: If at any time you feel your situation is an emergency, please call 911 immediately. . Non-Emergent Contact Non-Emergency issues call your: Primary Care Provider Call Non-Emergent contact if: you have a fever, your pain is concerning you, you have any medication questions . . "Provider Documentation" section prepared by Magi De Anda. Core Measure Problem Core Measures: None
[2016-12-04] MEDS: WARFARIN SOD 2.5 MG TAB PO SCH (15:54)
--- NOTE | 2016-12-04 15:58 | Discharge Summary ---
Discharge Summary Date of Service Dec 04, 2016. (Magi De Anda PA-C) Discharge Summary Admission Date: Dec 01, 2016 at 09:55 Discharge Date: Dec 04, 2016 Discharge Disposition: alf facility Principal Diagnosis: Acute on Chronic R Sided Congestive Heart Failure (Cor Pulmonale) Immunizations: Have You Had Influenza Vaccine: Yes Influenza Vaccine Date: Jul 15, 2011 History of Tetanus Vaccine?: Unknown History of Pneumococcal: Yes Pneumococcal Date: Sep 17, 2008 History of Hepatitis B Vaccine: Unknown Procedures: 1. CHEST ONE VIEW PORTABLE CLINICAL HISTORY: SOB, CHF dyspnea COMPARISON STUDY: 10/15/2016 FINDINGS: Congestive heart failure. Interval small right effusion. Moderate cardiomegaly. Central PICC catheter in the superior vena cava. IMPRESSION: Congestive heart failure. Small right pleural effusion. 2. Echocardiogram * -- Conclusions -- * The left ventricle is normal in size. * Ejection Fraction = 60-65%. * The right ventricular systolic function is normal. * The left atrial size is normal. * Right atrial size is normal. * Aortic valve sclerosis mild, without significant aortic valvular stenosis. * There is mild tricuspid regurgitation. * Compared to prior study, changes are noted, the right heart is no longer enlarged and RV systolic function is normal. Consultations: 1. Cardiology - [facility] 2. Infectious Disease 3. Wound Care 4. PT/OT (Magi De Anda PA-C) Medication Reconciliation New Medications: Ceftazidime-Avibactam Sodium (Avycaz 2-0.5 gm) 1 Inj Inj 1.25 GM IV Q8H for 15 Days Ciprofloxacin/Hydrocortisone (Cipro Hc 0.2-1 %) 150 Drops/10 Ml Susp 3 DROPS OT BID for 3 Days Miconazole Nitrate (Desenex Shake Powder) 43 Appln/43 Gm Powd 1 APPLN EXT MoWeFr@0900 for 7 Days Warfarin Sod (Coumadin) 2.5 Mg Tab 2.5 MG PO DAILY@16 for 30 Days, TAB Continued Medications: Acetaminophen Tab (Tylenol) 325 Mg Tab 650 MG PO Q6H PRN for PAIN OR TEMP > 100F, TAB NTE 3GM APAP/24HRS Albuterol (Proair Hfa) Aers 2 PUFFS PO QID PRN for Shortness of Breath Ascorbic Acid (Vitamin C) 500 Mg Tab 500 MG PO BID Aspirin Enteric Coated (Ecotrin Or Generic *) 81 Mg Ectab 81 MG PO DAILY, 0 Refills Atorvastatin (Lipitor) 40 Mg Tab 40 MG PO DAILY, TAB Calcitriol (Rocaltrol Cap) 0.25 Mcg Cap 0.25 MCG PO UD, CAP MWF Cholecalciferol (Vitamin D) 1,000 Inter.unit Tab 2000 INTER.UNIT PO DAILY, TAB Cyanocobalamin (Vitamin B-12) 1,000 Mcg Tab 1000 MCG PO DAILY, TAB Gabapentin (Neurontin) 400 Mg Cap 400 MG PO BID, 0 Refills Heparin Sodium (Porcine) (Heparin Sodium) 5,000 Unit/Ml Inj 5000 UNITS SQ BID Hydrocodon/Acetaminophen 5MG/300MG (Vicodin (5MG/300MG)) 1 Tab Tab 2 TABS PO UD, TAB TAKE 2 TABLETS ORALLY ONE HOUR PRIOR TO WOUND VAC CHANGE. NTE 3GM APAP/24HRS. Hydrocodon/Acetaminophen 5MG/300MG (Vicodin (5MG/300MG)) 1 Tab Tab 1 TAB PO Q6H PRN for Pain, TAB NTE 3GM APAP/24HRS Hydrocodon/Acetaminophen 5MG/300MG (Vicodin (5MG/300MG)) 1 Tab Tab 2 TABS PO Q12 PRN for SEVERE PAIN, TAB NTE 3GM APAP/24HRS Hydroxyzine Hcl (Atarax) 50 Mg Tab 25 MG PO Q6H PRN for PURITIS, TAB Insulin Aspart (Novolog Penfill) 100 Unit/ Inj 3 UNITS SC AC, INJ PLUS SLIDING SCALE Insulin Glargine (Lantus) 100 Unit/Ml Inj 20 UNITS SQ QAM, VIAL Levothyroxine Sodium (Synthroid) 125 Mcg Tab 125 MCG PO DAILY, TAB Lorazepam (Ativan) 0.5 Mg Tab 0.5 MG PO UD, TAB TAKE ONE TABLET ORALLY ONE HOUR PRIOR TO WOUND VAC CHANGES. Magnesium Oxide (Mag-Ox) 400 Mg Tab 400 MG PO BID, TAB Metolazone (Zaroxolyn) 2.5 Mg Tab 2.5 MG PO WK, TAB TAKE EVERY FRIDAY Metoprolol Succinate (Toprol Xl) 50 Mg Tab 50 MG PO DAILY, #30 TAB Multiple Vitamins W/ Minerals (Therems M) 1 Tab Tab 1 TAB PO DAILY Pantoprazole (Protonix) 20 Mg Tab 20 MG PO DAILY, 0 Refills Potassium Chloride Microencaps (Potassium Chloride Er) 20 Meq Tab 20 MEQ PO DAILY Prednisone (Prednisone) 5 Mg Tab 5 MG PO DAILY, TAB Sertraline (Zoloft) 100 Mg Tab 150 MG PO DAILY, TAB Tiotropium [place] (Spiriva Handihaler) 18 Mcg/ Aerp 1 CAP INH DAILY, 0 Refills Torsemide (Demadex) 100 Mg Tab 100 MG PO DAILY, TAB [protein powder] () 1 DOSE PO TID Discontinued Medications: Ceftazidime-Avibactam Sodium (Avycaz 2-0.5 gm) 1 Inj Inj 0.94 GM IV Q12 for 8 Days Probiotic Product (Probiotic) 1 Cap Cap 250 MG PO BID Discharge Exam Review of Systems: Constitutional: No chills, No fever ENT: No nasal symptoms, No sore throat, No trouble swallowing Respiratory: + cough, + sputum, No shortness of breath Cardiovascular: No chest pain Abdomen: No constipation, No diarrhea, No nausea, No pain, No vomiting Genitourinary - Female: No dysuria Neurologic: + numbness/tingling (lower extremities (chronic)) Integumentary: No new/changing skin lesions Physical Exam: General Appearance: WD/WN, no apparent distress, + obese (morbid) Eyes: sclerae normal ENT: hearing grossly normal Neck: supple, no JVD, trachea midline Respiratory/Chest: lungs clear, normal breath sounds, no respiratory distress, no accessory muscle use, + decreased breath sounds (bases bilat) Cardiovascular: no gallop, no murmur, + irregularly irregular Abdomen / GI: normal bowel sounds, non tender, soft Extremities: + swelling (bilateral lower extremity edema into thighs 1-2+; presence of abdominal edema), + pertinent finding (bilateral chronic stasis dermatitis) Neurologic/Psychiatric: alert, oriented x 3 Skin: + pertinent finding (chronic bilateral hip/buttock pressure wounds in multiple stages of healing; wound vac present) (Magi De Anda, PAJackelynC) Hospital Course ADMISSION: Ms. Blevins is a 61 y/o female with PMHx of Right Sided Systolic Congestive Heart Failure, CKD Stage IV, Chronic Hypoxic Respiratory Failure ( Continues 3L NC), Persistent Atrial Fibrillation, Hypothyroidism, T2DM with Peripheral Neuropathy, and Chronic Pressure Ulcers with Wound Vacs (MDR Klebsiella) who presents to the ED for acute hypoxia this AM. Patient resides currently at [facility]. Patient's baseline is 3 L of oxygen with CPAP at night. This morning she was found to be off her CPAP and pulse oximetry revealing saturations in the 60s. Her saturations remained low even with the addition of oxygen and she was brought to the emergency department. Patient does report shortness of breath. She states that she suspected she was retaining fluid as she felt that her abdomen was more distended. She has chronic edema of the lower extremities bilaterally and report that this is largely baseline. Patient also complains of a productive cough of white to yellow sputum for approximately 2 weeks and right ear pain. Patient is currently being treated for bilateral hip and buttocks pressure ulcers with wound VAC placement. She follows with the wound clinic and infectious disease. She has a PICC line in the RUE and currently receiving Avycaz for these pressure ulcers. She denies fever/chills, CP, N/V, abdominal pain, dysuria, constipation/diarrhea. In the ED, patient continued to be hypoxic and mildly tachycardic. She is febrile at 37.6. Presence of leukocytosis which is rather chronic. Evidence of microcytic anemia which appears largely baseline and likely due to anemia of chronic disease. Creatinine of 1.8 which is improved from baseline of approximately 2.0-2.4. BNP of 9840. EKG with atrial fibrillation with mild RVR. CXR suggested of congestive heart failure with small right pleural effusion and moderate cardiomegaly. Patient will be admitted to telemetry for acute on chronic congestive heart failure. HOSPITAL COURSE: HOSPITAL COURSE: Ms. Blevins was admitted for cor pulmonale. CXR with evidence of congestive failure. Respiratory status markedly improved with Lasix 40 mg IV 1 dose and ED. At times if admission, patient with adequate saturations on her continuous 3 L NC. She was treated with multiple dosing of Lasix IV however is without in negative fluid balance. However symptoms are improving. Patient states her edema is nearing baseline. She was resumed on her torsemide 100 mg daily with Metolazone 2.5 mg x weekly. Echocardiogram performed with EF 60-65%, normal right ventricular systolic function, with no evidence of right heart enlargement. This echo shows resolution of right-sided heart abnormalities from previous echocardiograms. Patient has a history of chronic hypoxic respiratory failure on continuous 3 L NC and obesity hypoventilation syndrome/KRISTY he uses CPAP at night. She reports baseline respiratory function at this time. Patient with history of chronic kidney disease stage IV, kidney function was monitored in the setting of IV Lasix administration. Currently creatinine is improved from baseline which appears to be 2.0-2.5. Due to her persistent atrial fibrillation she was continued on metoprolol 50 mg daily. She was previously on Coumadin therapy which was discontinued due to a fall. Given her persistent atrial fibrillation, sedentary lifestyle, and other comorbidities she is at increased risk for stroke or PE. She was reinstituted on Coumadin therapy with heparin as bridge therapy. Her most recent INR is 1.1. She was discharged to [facility] with instructions to continue heparin bridge therapy and to have INR checked in 1-2 days. Recommendations are to continue bridge therapy until INR is between 2-3 at which time heparin can be discontinued. Patient was seen and evaluated by wound care and infectious disease. She will be continued on Avycaz 1.25 g Q8H for her MDR Klebsiella pressure ulcers. She was instructed to follow-up with wound care and infectious disease in 7 days and to continue antibiotic therapy until that time for reassessment. Patient is at her respiratory baseline, continues to be edematous but largely baseline, and optimal for discharge back to [facility]. Total Time Spent: Greater than 30 minutes This includes examination of the patient, discharge planning, medication reconciliation, and communication with other providers. (Magi De Anda PA-C) I personally evaluated this patient and performed a physical exam. I reviewed the orders. I read this discharge summary completed by Magi De Anda PA-C and agree with the contents in entirety. (Antoni Lrod, DO) Discharge Instructions Please refer to the electronic Patient Visit Report (Discharge Instructions) for additional information. (Magi De Anda PA-C) Additional Copies To [facility]
[2016-12-16] MEDS ORDERED: [UNRECOGNIZED DRUG - CODE] IV (14:19)
[2016-12-31] MEDS ORDERED: LORA-741 PO (10:09)
[2016-12-31] MEDS ORDERED: INSDGI SQ (10:09)
[2016-12-31] MEDS ORDERED: HYDR-3419 PO ×2 (10:09)
[2017-02-06] MEDS ORDERED: CPR750 PO (14:53)
[2017-02-06] MEDS ORDERED: AMOX875T PO (14:53)
[2017-03-29] MEDS ORDERED: SNTO30 EXT (17:49)
[2017-03-29] MEDS ORDERED: NUTRMIS PO (17:49)
[2017-04-29] MEDS ORDERED: ATOR-24 PO (02:35)
[2017-04-29] MEDS ORDERED: PRED-301 PO (02:48)
[2017-04-29] MEDS ORDERED: LEVO125T72 PO (09:15)
[2017-04-29] MEDS ORDERED: CYAN10005 PO (09:18)
[2017-04-29] MEDS ORDERED: MAGN400T5 PO (10:32)
[2017-04-29] MEDS ORDERED: CALC0.2510 PO (10:32)
[2017-04-29] MEDS ORDERED: OXGN (12:03)
[2017-04-29] MEDS ORDERED: CHOL2000 PO (12:03)
[2017-04-29] MEDS ORDERED: DOCU-94 PO (12:03)
[2017-04-29] MEDS ORDERED: NVLG SC (12:03)
[2017-04-29] MEDS ORDERED: WARF5TAB90 PO (12:03)
[2017-04-29] MEDS ORDERED: INSDGIPEN SC (12:03)
[2017-04-29] MEDS ORDERED: CMD/25 PO (12:03)
[2017-04-29] MEDS ORDERED: ASPI81TA28 PO (12:03)
[2017-04-29] MEDS ORDERED: SPRIN/30 INH (12:03)
[2017-04-29] MEDS ORDERED: B-CO1TAB73 PO (12:03)
[2017-05-05] MEDS ORDERED: CIPR1TAB11 PO (17:15)
[2017-05-05] MEDS ORDERED: AMOX500T PO (17:15)
[2017-05-30] MEDS ORDERED: LVQ500 PO (17:03)
[2017-06-12] MEDS ORDERED: CIPR1TAB11 PO (15:05)
[2017-06-12] MEDS ORDERED: AMOX500T PO (15:05)
[2017-08-15] MEDS ORDERED: CEFD1CAP14 PO (10:54)
== END 2016-12-04 17:45 | DRG 291 ==
LOC: ENRESERVDT → ENRESERVTM → EDBD 06:12 → C.EDA 06:13 → UNDOADMIN 09:55 → C.2T 09:55 → C.MS2W 12-04 10:35
PROVIDERS: ADMIT Family Medicine; ATTEND Internal Medicine
PROC: 05HM33Z Insertion of Infusion Device into Right Internal Jugular Vein, Percutaneous Approach (ICD-10-PCS; principal; 2016-11-24)
DX: I50.23 Acute on chronic systolic (congestive) heart failure (principal); L89.213 Pressure ulcer of right hip, stage 3; L89.223 Pressure ulcer of left hip, stage 3; L89.893 Pressure ulcer of other site, stage 3; J96.11 Chronic respiratory failure with hypoxia; E66.2 Morbid (severe) obesity with alveolar hypoventilation; N18.4 Chronic kidney disease, stage 4 (severe); B96.1 Klebsiella pneumoniae [K. pneumoniae] as the cause of diseases classified elsewhere; I27.81 Cor pulmonale (chronic); I48.2 Chronic atrial fibrillation; E11.40 Type 2 diabetes mellitus with diabetic neuropathy, unspecified; K31.84 Gastroparesis; E78.5 Hyperlipidemia, unspecified; I12.9 Hypertensive chronic kidney disease with stage 1 through stage 4 chronic kidney disease, or unspecified chronic kidney disease; G47.33 Obstructive sleep apnea (adult) (pediatric); E03.9 Hypothyroidism, unspecified; H60.91 Unspecified otitis externa, right ear; Z79.4 Long term (current) use of insulin; Z82.49 Family history of ischemic heart disease and other diseases of the circulatory system; Z87.891 Personal history of nicotine dependence; Z83.3 Family history of diabetes mellitus; Z16.24 Resistance to multiple antibiotics; Z99.81 Dependence on supplemental oxygen; Z79.82 Long term (current) use of aspirin; Z79.52 Long term (current) use of systemic steroids; Z91.81 History of falling; D72.829 Elevated white blood cell count, unspecified; E11.9 Type 2 diabetes mellitus without complications; I10 Essential (primary) hypertension; Z90.49 Acquired absence of other specified parts of digestive tract; S31.809A Unspecified open wound of unspecified buttock, initial encounter; J44.9 Chronic obstructive pulmonary disease, unspecified; S83.91XA Sprain of unspecified site of right knee, initial encounter; W19.XXXA Unspecified fall, initial encounter; Z79.01 Long term (current) use of anticoagulants; E83.41 Hypermagnesemia; L89.220 Pressure ulcer of left hip, unstageable; Z99.2 Dependence on renal dialysis; A49.8 Other bacterial infections of unspecified site

== ENCOUNTER → 2016-12-11 | Outpatient (CLI) | payer OTHER ==
[~2016-12-11] MED LIST changes: +AMOX500T PO; +AMOX875T PO; +ASCA500 PO; +ASPI81TA28 PO; +ATOR-24 PO; +B-CO1TAB73 PO; +CALC0.2510 PO; +CHOL2000 PO; +CIPR1TAB11 PO; +CMD/25 PO; +CMD25 PO; +CPR750 PO; +CPROT OT; +CYAN10005 PO; +DOCU-94 PO; +GABA1CAP5 PO; +HYDR-3126 PO; +HYDR-4330 PO; +HYDR-5688 PO; +INSDGI SQ; +INSDGIPEN SC; -INSU1.2I SQ; +LEVO125T72 PO; +LEVO1TAB33 PO; +LORA-741 PO; -LORA0.5T12 PO; +LVQ500 PO; +MAGN400T5 PO; +MCTP EXT; -METO-452 PO; +METO1TAB66 PO; +METO25TA3 PO; +NUTRMIS PO; +NVLG SC; +OXGN; +PRED-301 PO; +PRT/20 PO; +SERT-234 PO; +SNTO30 EXT; +SPRIN/30 INH; +WARF5TAB90 PO
[2016-12-11 08:16] LABS: BASO % 0.6 %; BASO ABS # 0.12 K/uL (0-0.2); COMPLETE YES; EOS % 6.5 %; HEMATOCRIT 37.3 % (37-47); IG% 0.5 %; LYMPH % 13.1 %; MEAN CORPUSCULAR HEMOGLOBIN 23.2 pg (25-34); MEAN CORPUSCULAR HGB CONC 29.8 g/dl (32-36); MEAN PLATELET VOLUME 9.3 fL (7.4-10.4); NEUT % 69.3 %; PLATELET COUNT 418 K/uL (130-400); RED BLOOD COUNT 4.78 M/uL (4.2-5.4); WHITE BLOOD COUNT 19.02 K/uL (4.8-10.8)
[2016-12-11 08:24] LABS: BLOOD UREA NITROGEN 84 mg/dl (7-18); BUN/CREATININE RATIO 36.6 (10-20); CALCIUM 9.6 mg/dl (8.5-10.1); CARBON DIOXIDE 27 mmol/L (21-32); CHLORIDE 98 mmol/L (98-107); GLUCOSE 162 mg/dl (70-99); POTASSIUM 3.7 mmol/L (3.5-5.1); SODIUM 137 mmol/L (136-145)
[2016-12-11 08:28] LABS: PHOSPHORUS 4.5 mg/dl (2.5-4.9); PREALBUMIN 17.4 mg/dl (20-40)
== END ==
LOC: C.LABCC 07:57
PROVIDERS: ATTEND Internal Medicine
DX: N18.4 Chronic kidney disease, stage 4 (severe) (principal)

== ENCOUNTER 2016-12-20 11:19 | Inpatient (IN) | payer OTHER ==
[~2016-12-20] VITALS: Ht 162.6 cm; Wt 138.2 kg
[~2016-12-20 11:19] MED LIST changes: -AMOX500T PO; -AMOX875T PO; -ASCA500 PO; -ASPI81TA28 PO; -ATOR-24 PO; -B-CO1TAB73 PO; -CALC0.2510 PO; -CHOL2000 PO; -CIPR1TAB11 PO; -CMD/25 PO; -CPR750 PO; -CYAN10005 PO; -DOCU-94 PO; -GABA1CAP5 PO; -HYDR-4330 PO; -HYDR-5688 PO; -INSDGIPEN SC; -LEVO125T72 PO; -LEVO1TAB33 PO; -LVQ500 PO; -MAGN400T5 PO; +METO-452 PO; -METO1TAB66 PO; -METO25TA3 PO; -NUTRMIS PO; -NVLG SC; -OXGN; -PRED-301 PO; -PRT/20 PO; -SERT-234 PO; -SNTO30 EXT; -SPRIN/30 INH; -WARF5TAB90 PO
[2016-12-20 12:15] VITALS: BP 111/78; PULSE 95; TEMP 36.5; O2SAT 92; Ht 162.6 cm; Wt 138.2 kg
[2016-12-20] MEDS ORDERED: GLUCAGON FOR INJ 1 MG VIAL SQ PRN (12:15)
[2016-12-20] MEDS ORDERED: DEXTROSE 50% 50 ML SYR IV PRN (12:15)
[2016-12-20] MEDS ORDERED: GLUCOSE 40% GEL 15 GM TUBE PO PRN (12:15)
[2016-12-20] MEDS ORDERED: GLUCOSE 10 TABS/TUBE PO PRN (12:15)
[2016-12-20] MEDS ORDERED: PHARMACY GLYCEMIC MGMT CONSULT PRN (12:16)
[2016-12-20] MEDS: INSULIN ASPART 100 UNITS/ML 3 ML PEN SC SCH ×3 (14:00→21:56)
[2016-12-20] MEDS ORDERED: hydrOXYzine HCL 25 MG TAB PO PRN (14:15)
[2016-12-20] MEDS ORDERED: ALBUTEROL HFA 8 GM INHALER INH PRN (14:15)
--- NOTE | 2016-12-20 14:27 | History and Physical ---
History & Physical Date & Time of Service: Dec 20, 2016 at 13:06 Chief Complaint: Acute Renal Failure,Rt Sided Heart Failure Primary Care Physician: [facility] History of Present Illness Source: patient, family 61 yo F with h/o heart failure, DMII, atrial fibrillation on coumadin, morbid obesity, chronic respiratory failure, Stage IV CKD and a known wound on her glutes for which she was receiving care at [facility] recently. She began to notice an increase in her weight, increased need for supplemental oxygen and swelling in her abdomen area over the past two weeks. She initially tried to see her Yeast Culture Operator yesterday but fell outside of the car and tweaked her R knee. There was no force on her knee and her graddaughter states that she slid down slowly to the ground. Today pain is present but minimal and located on the superior aspect of the R patella. She was able to make it to Cards office today, and with the symptoms, and h/o needing IV Lasix and possibly albumin, hospitalization was recommended and she was sent here as a direct admission. Past Medical/Surgical History Medical Problems: (1) Atrial Fibrillation Status: Chronic (2) Chronic respiratory failure Status: Chronic (3) CKD (chronic kidney disease), stage IV Status: Chronic (4) Cor pulmonale Status: Chronic (5) Diab Ania Wo Compl, Type Ii Or Unspec Type, Uncontrolled Status: Chronic (6) Gastroparesis Status: Chronic (7) Hyperlipidemia Nec/Nos Status: Chronic (8) Hypertension Status: Chronic (9) Hypertension Nos Status: Chronic (10) Morbid Obesity Status: Chronic (11) Obesity hypoventilation syndrome Status: Chronic (12) Sleep apnea Status: Chronic Surgical Problems: (1) S/P cholecystectomy Status: Chronic (2) S/P debridement Permanent Comment: 08/30/2016- debridement bilateral lower extremity and buttock wounds Status: Chronic Family History Cancer Diabetes mellitus FH: heart disease FHx: lung disease Hypertension Kidney stones Mom on Mi at age 54 yrs, father of brain cancer at 69 yrs Social History Smoking Status: Former Smoker (lifelong) Smokeless Tobacco Use: No Alcohol Use: none Drug Use: none Marital Status: Housing status: lives with family Occupational Status: disabled Immunizations History of Influenza Vaccine: Yes Influenza Vaccine Date: Jun 19, 2016 History of Tetanus Vaccine?: Unknown History of Pneumococcal: Yes Pneumococcal Date: Sep 17, 2008 History of Hepatitis B Vaccine: Unknown 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 Allergies Coded Allergies: Bacitracin (Verified Allergy, Intermediate, RASH,ITCH, 08/27/16) Celecoxib (Verified Allergy, Intermediate, RASH TO SULFA DRUGS, 08/27/16) Neomycin (Verified Allergy, Intermediate, RASH,ITCH, 08/27/16) Polymyxin B (Verified Allergy, Intermediate, RASH,ITCH, 08/27/16) Sulfa Antibiotics (Verified Allergy, Intermediate, RASH,HAS TAKEN GLIPIZIDE W/O REACTION, 08/27/16) Tigecycline (Verified Adverse Reaction, Severe, MILD PANCREATITIS, ) 61 yo F placed on IV tigecycline for wound infection, after 5-6 days developed decreased appetite, had nonspecific abdominal pain from admission and was refusing to lie back for daily abd assessments because of pain in other areas of abdomen. Decreased appetite persisted, also in context of worsening depression and stated apathy, WBC continued to increase, CT chest revealed n/s changes possibly consistent with mild pancreatitis, lipase drawn and elevated, other causes ruled out, clinical pancreatitis on exam. Diruretics/albumin stopped to avoid further rehydration, tigecycline discontinued, continuing supportive care. Codeine (Verified Adverse Reaction, Intermediate, GI UPSET, 08/27/16) Home Medications Scheduled Ascorbic Acid (Vitamin C), 500 MG PO BID Aspirin Enteric Coated (Ecotrin Or Generic *), 81 MG PO DAILY Atorvastatin (Lipitor), 40 MG PO DAILY Calcitriol (Rocaltrol Cap), 0.25 MCG PO UD Ceftazidime-Avibactam Sodium (Avycaz 2-0.5 gm), 0.94 GM IV DAILY Cholecalciferol (Vitamin D), 2,000 INTER.UNIT PO DAILY Ciprofloxacin/Hydrocortisone (Cipro Hc 0.2-1 %), 3 DROPS OT BID Cyanocobalamin (Vitamin B-12), 1,000 MCG PO DAILY Gabapentin (Neurontin), 400 MG PO BID Heparin Sodium (Porcine) (Heparin Sodium), 5,000 UNITS SQ BID Hydrocodon/Acetaminophen 5MG/300MG (Vicodin (5MG/300MG)), 2 TABS PO UD Insulin Aspart (Novolog Penfill), 3 UNITS SC AC Insulin Glargine (Lantus), 20 UNITS SQ QAM Levothyroxine Sodium (Synthroid), 125 MCG PO DAILY Lorazepam (Ativan), 0.5 MG PO UD Magnesium Oxide (Mag-Ox), 400 MG PO BID Metolazone (Zaroxolyn), 2.5 MG PO WK Metoprolol Succinate (Toprol Xl), 50 MG PO DAILY Miconazole Nitrate (Desenex Shake Powder), 1 APPLN EXT MoWeFr@0900 Multiple Vitamins W/ Minerals (Therems M), 1 TAB PO DAILY Pantoprazole (Protonix), 20 MG PO DAILY Potassium Chloride Microencaps (Potassium Chloride Er), 20 MEQ PO DAILY Prednisone (Prednisone), 5 MG PO DAILY Sertraline (Zoloft), 150 MG PO DAILY Tiotropium [place] (Spiriva Handihaler), 1 CAP INH DAILY Torsemide (Demadex), 100 MG PO DAILY Warfarin Sod (Coumadin), 2.5 MG PO DAILY@16 [protein powder], 1 DOSE PO TID Scheduled PRN Acetaminophen Tab (Tylenol), 650 MG PO Q6H PRN for PAIN OR TEMP > 100F Albuterol (Proair Hfa), 2 PUFFS PO QID PRN for Shortness of Breath Hydrocodon/Acetaminophen 5MG/300MG (Vicodin (5MG/300MG)), 1 TAB PO Q6H PRN for Pain Hydrocodon/Acetaminophen 5MG/300MG (Vicodin (5MG/300MG)), 2 TABS PO Q12 PRN for SEVERE PAIN Hydroxyzine Hcl (Atarax), 25 MG PO Q6H PRN for PURITIS Review of Systems Constitutional: No chills, No fever, No weight loss Eyes: No problem reported ENT: No sore throat Respiratory: + cough, + shortness of breath (requiring 4L via NC instead of baseline 3L NC), + sputum (chronic without changes), No wheezing Cardiovascular: + edema (in abdomen), No chest pain Abdomen: No GI bleeding, No constipation, No diarrhea, No nausea, No pain, No vomiting Musculoskeletal: + muscle pain (L knee area after fall yesterday), No joint pain Genitourinary - Female: No dysuria, No urinary frequency, No urinary urgency Psychiatric: + depression symptoms Hematologic / Lymphatic: + abnormal bleeding/bruising (bleeding on R forearm, superficial wound) Integumentary: + problem reported (bilateral buttock wound, L wound vac in place), No rash Physical Exam Vital Signs GEN: morbidly obese, in no acute distress, alert and appropriate HEENT: NC/AT, PERRL, normal sclerae, EOMI CARDIO: irreg, S1/2 heard without m/g/r LUNGS: CTA throughout except at way L base area, good diaphragmatic excursion. ABD: soft, edematous with large pannus making exam complicated, +BS EXTREMITY: erythroderma bilateral lower extremities, chronic swelling in LEs but no pitting edema, skin is very tight, warm and well perfused, R forearm with minor skin tears and wound over them. PICC in place in LUE with no surrounding erythema. NEURO: CN 2-12 grossly intact, sensation intact throughout, no gross focal deficits [facility]: ambulatory with assistance, moves all extremities equally SKIN: warm and dry, changes as above. Wound vac to L glutes/posterior thigh area, no surrounding erythema. Wound, chronic-appearing to R buttock similar in size to L sided wound. Diagnostics Laboratory Results Results Past 24 Hours Test 12/20/16 12:27 12/20/16 12:52 Range/Units Bedside Glucose 160 70-90 mg/dl Diagnostic Radiology CXR 2-VIEW: IMPRESSION: No change in the mild interstitial pulmonary edema, small to moderate right pleural effusion, and cardiomegaly. EKG afib 79 Impression Assessment and Plan 61 yoF with acute R heart failure exacrerbation and FRED 1. Acute R heart failure-Lasix/albumin. Serial cardiac enzymes are negative. Cards consulted. TTE ordered. Standing daily weights. Monitor on tele. EKG reveals atrial fibrillation-rate controlled. CXR consistent with fluid overload. 2. FRED on CKD Stage IV-baseline around 2.0, now 3.9. Nephro consulted. Lasix/ Albumin as above. Considering dialysis pending response to diuresis. 3. Buttock wound unstageable-cont daily IV abx; ID consulted. Mcduffie recommends stopping abx at this time. 4. Atrial fibrillation-cont home meds including warfarin. Daily INR. 5. Morbid obesity 6. Chronic respiratoy failure in setting of chronic COPD-stable, no wheezing. Needing more oxygen now with worsened heart failure above. 7. s/p mechanical fall with R knee sprain. No indication for xray of knee at this time. Normal ROM and no effusion or significant pain on exam. 8. DMII- cont ISS and Lantus with pharmacy assistance. 9. Depression-cont Zoloft 150mg PO daily 10. Hypothyroidism stable, cont Synthroid 11. Leukocytosis 2/2 chronic disease and inflammation with the wound vac. DVT prophy: heparin FULL CODE Tricia King, DO Level of Care Telemetry Resuscitation Status FULL RESUSCITATION VTE Prophylaxis VTE Risk Assessment Done? Y/N: Yes Risk Level: Moderate Given or contraindicated: Unfractionated heparin SQ
[2016-12-20 14:30] LABS: HEMATOCRIT 38.4 % (37-47); MEAN CELL VOLUME 76.2 fL (80-100); MEAN CORPUSCULAR HEMOGLOBIN 22.8 pg (25-34); MEAN CORPUSCULAR HGB CONC 29.9 g/dl (32-36); MEAN PLATELET VOLUME 9.3 fL (7.4-10.4); PLATELET COUNT 347 K/uL (130-400); RED BLOOD COUNT 5.04 M/uL (4.2-5.4); WHITE BLOOD COUNT 16.91 K/uL (4.8-10.8)
--- NOTE | 2016-12-20 14:30 | Progress Note ---
Progress Note Date of Service Dec 20, 2016. Progress Note ID Consult Dictated #[id number] A/P: 1. Hip Osteo - MDR K. pneumo -Was on avycaz as outpt, will hold with increased creat -Continue local wound care -Will follow, thank you
[2016-12-20 14:38] LABS: INR 1.2 (0.9-1.1); PROTHROMBIN TIME (PATIENT) 13.2 SECONDS (9.0-12.0)
[2016-12-20 14:47] LABS: ALT/SGPT 22 U/L (12-78); BLOOD UREA NITROGEN 106 mg/dl (7-18); BUN/CREATININE RATIO 27.2 (10-20); CALCIUM 9.3 mg/dl (8.5-10.1); CARBON DIOXIDE 27 mmol/L (21-32); CHLORIDE 99 mmol/L (98-107); GLUCOSE 158 mg/dl (70-99); MAGNESIUM 2.6 mg/dl (1.8-2.4); POTASSIUM 4.6 mmol/L (3.5-5.1); SODIUM 138 mmol/L (136-145)
[2016-12-20 14:58] LABS: ALB/GLOB RATIO 0.5 (0.9-2); ALKALINE PHOSPHATASE 119 U/L (45-117); AST/SGOT 21 U/L (15-37); THYROID STIMULATING HORMONE 0.877 uIu/ml (0.300-4.500)
[2016-12-20 15:19] LABS: CKMB/CK RATIO 7.1 (0-3.0)
[2016-12-20 15:20] VITALS: BP 155/90; PULSE 93; TEMP 36.7; O2SAT 95
--- NOTE | 2016-12-20 15:22 | Pharmacy Progress Note ---
Glycemic Control Intl Consult Date of Service Dec 20, 2016. Scope Glycemic Pharmacist consulted by Dr King on 12/20/16 for glycemic control and to write orders per [facility] inpatient glycemic control protocol Objective Weight (Kilograms): 134.800 Accuchecks BSG (last 24hrs): Test 12/20/16 12:27 12/20/16 14:07 Bedside Glucose 160 mg/dl (70-90) Random Glucose 158 mg/dl (70-99) Laboratory Data (last 24hrs) Test 12/20/16 14:07 Anion Gap 12.0 mmol/L BUN/Creatinine Ratio 27.2 Blood Urea Nitrogen 106 mg/dl Creatinine 3.90 mg/dl Potassium Level 4.6 mmol/L Sodium Level 138 mmol/L White Blood Count 16.91 K/uL HbA1c Item Value Date Time Hemoglobin A1c 8.0 % H 12/02/16 0530 Estimated Average Glucose 183 mg/dl 12/02/16 0530 Recent Pertinent Medications Outpatient Anti-diabetic Regimen: * Lantus 20 units QAM * Novolog 3 units AC + scale Risk Factors for Insulin Resistance: * Infection * Home Prednisone 5 mg PO QAM * Diet Assessment & Plan ASSESSMENT: * 61 yo diabetic F well known to our glycemic service, admitted today for CHF exacerbation * BSG on admission ~160 mg/dL * Per nurse, patient believes she did receive her Lantus this AM * Hold off on Lantus dosing for now * Initiate Lantus/Novolog per previous admissions * A1c current, reflective of good glycemic control as outpatient given age and comorbidities * ADA & AACE recommend a goal blood sugar range 140-180 mg/dl for the majority of critically ill & non-critically ill patients. However, more stringent targets may be selected in individual cases. Tighten goal range for better wound healing. PLAN FOR INPATIENT GLYCEMIC CONTROL: * Basal insulin with LANTUS 12 units SQ QAM- reassess tomorrow based on BSG trend tonight * Correctional Insulin with NOVOLOG per scale ACHS or Q6hrs while NPO * Goal Range: Low 110 mg/dL - High 140 mg/dL * Correction Factor: 30 mg/dL/unit * Nutritional / Prandial insulin per carb ratio of 1 unit per 10 grams CHO consumed * A1c added to D/C instructions * Please note that the plan above was derived based on current level of insulin resistance and hospital stress. These recommendations are appropriate for inpatient admission only. Plan of care upon discharge will need to be reassessed to avoid potential outpatient hypo/hyperglycemia. Thank you.
--- NOTE | 2016-12-20 15:31 | NEPHROLOGY CONSULTATION ---
DATE OF CONSULTATION: 12/20/2016 DATE OF CONSULTATION: 12/20/2016. ATTENDING OF RECORD: Dr. Faith. REASON FOR CONSULTATION: FRED. HISTORY OF PRESENT ILLNESS: This is a 61-year-old female with significant right-sided heart failure, atrial fibrillation on Coumadin, chronic wound infection requiring wound VAC, who noticed increased fatigue, worsening abdominal distention, decreased appetite, worsening itching, upset stomach for the last couple days and went to the cardiology office and there was found to have an elevated creatinine. In the office today creatinine is up to 3.9 with albumin of 2.5. The patient was directly admitted and has been started on albumin with IV Lasix b.i.d. The patient states she is open to dialysis, but does not want to start it until she absolutely has to. PAST MEDICAL HISTORY: Atrial fibrillation, CKD stage IV, right-sided heart failure, morbid obesity, hypertension, hyperlipidemia, sleep apnea. PAST SURGICAL HISTORY: Debridement of bilateral pannus ischemic excoriations requiring chronic wound VAC, right side has been removed but continues to have left-sided wound VAC. FAMILY HISTORY: Significant for diabetes. SOCIAL HISTORY: Former smoker. No alcohol, no drugs. Lives at home with family. CURRENT MEDICATIONS: Aspirin 81 mg a day, Lipitor 40 mg a day, vitamin D 2000 units daily, vitamin B12 1000 mcg daily, Synthroid 125 mcg daily, Toprol-XL 50 mg daily, multivitamin daily, potassium 20 mEq daily, prednisone 5 mg daily, Zoloft 150 mg daily, Spiriva 1 puff inhaler daily, Protonix 40 mg daily, Lantus 12 units subQ q. 12, vitamin C 500 mg p.o. b.i.d., Neurontin 400 mg p.o. b.i.d., magnesium 400 mg p.o. b.i.d., albumin with Lasix 80 mg IV q. 12, Coumadin 2.5 mg daily, calcitriol 0.25 mcg as directed, heparin 5000 units subQ q. 8. REVIEW OF SYSTEMS: No fevers or chills. Positive fatigue. Positive weight gain. Positive decreased urination. Positive shortness of breath at rest. No chest pain. Positive edema in the lower extremities which is actually better compared to previous admissions. Positive abdominal distention. No diarrhea or constipation. Positive pruritus. All other review of systems otherwise negative. PHYSICAL EXAMINATION: VITAL SIGNS: Temperature 36.5, pulse 95, respiratory rate 18, blood pressure 111/78, satting 92% on 4 liters. GENERAL: Awake, alert, oriented x3, morbidly obese. EYES: No scleral icterus. EARS, NOSE, THROAT: Moist mucous membranes. LUNGS: Clear to auscultation. CARDIAC: Irregular. ABDOMEN: Very large pannus with a wound VAC on the left hip from previous surgery. EXTREMITIES: Bilateral erythematous chronic venous stasis changes with +1 hard nonpitting edema. NEUROLOGICALLY: Nonfocal. DERMATOLOGY: The bilateral venous stasis changes as well as the right hip excoriation requiring chronic wound VAC. LABORATORIES: White count 16,000, H\T\H 11 and 38, platelet count is 347. INR is 1.2. Sodium level 138, potassium 4.6, chloride 99, bicarbonate is 27, BUN is 106, creatinine is 3.9, glucose 158, calcium is 9.3. Mag is 2.6, ALT is 22. Albumin is 2.5. IMPRESSION AND PLAN: 1. Acute kidney injury on chronic kidney disease stage IV with uremic symptoms including decreased appetite, pruritus, fatigue. Will attempt albumin with Lasix to help mobilize the third space fluid. Always difficult to grease remover volume status in the supra morbidly obese. I did speak to her about possibly needing dialysis during this admission. The patient responded that she would like to hold off on dialysis unless absolutely necessary. Unclear how well of a dialysis patient she would be long-term. The patient did have a family member that she knew that was on dialysis and did not do well, so patient is appropriately apprehensive. 2. Hypermagnesemia, magnesium level 2.6 and will discontinue the magnesium supplements. 3. Renal osteodystrophy. I will check vitamin D and PTH levels, currently on vitamin D 2000 units a day as well as calcitriol and will see if we need to adjust the dose. 4. Anemia of chronic kidney disease. Hemoglobin level is 11.5. Will monitor hemoglobin levels. If they start to drop below 10, would check iron sat and ferritin to see if patient may benefit from Procrit. Overall poor prognosis. Greatly appreciate cardiology as well as infectious disease help in the management of this complicated patient. Will continue to diurese the patient aggressively with the use of albumin and Lasix trying to help mobilize the third space fluid; however, likely to need dialysis during this admission and has an overall poor prognosis given her multiple comorbidities. I appreciate consultation. JUAN ANTONIO
[2016-12-20] MEDS: LORAZEPAM 0.5 MG TAB PO PRN (15:39)
[2016-12-20] MEDS: HYDROCODONE/ACETAMOPHEN 5/325MG TAB PO PRN (15:40)
--- NOTE | 2016-12-20 16:27 | CARDIOLOGY CONSULTATION ---
DATE OF CONSULTATION: 12/20/2016 REFERRING PHYSICIAN: Dr. Tricia King. REASON FOR CONSULTATION: Congestive heart failure. HISTORY OF PRESENT ILLNESS: Ms. Blevins is a 61-year-old female with a history of chronic diastolic heart failure, atrial fibrillation, morbid obesity, and stage 4 CKD. The patient noted an increase in her weight and higher oxygen requirements. She reports worsening swelling of her abdomen. She was seen today at the cardiology clinic. Due to weight gain and an office creatinine level of 3.7, she was referred to the Emergency Department for further evaluation and treatment. Her creatinine is 3.90 currently. The patient notes abdominal bloating and edema. Complex cardiovascular history listed below. Denies shortness of breath or chest pain at rest. She offers no other complaints at this time. REVIEW OF SYSTEMS: The pertinent positive noted above, a comprehensive 10-system review is otherwise negative. PAST MEDICAL HISTORY: 1. Chronic atrial fibrillation. 2. Morbid obesity. 3. Pickwickian syndrome and cor pulmonale. 4. Pulmonary hypertension and right-sided heart failure. 5. Hypertension. 6. Chronic obstructive pulmonary disease. 7. Chronic venous stasis. 8. Chronic lymphedema. 9. Iron deficiency anemia. 10. Tobacco abuse. PAST SURGICAL HISTORY: 1. Cholecystectomy. 2. Hernia repair. FAMILY HISTORY: Father with myocardial infarction at age 54. SOCIAL HISTORY: Former tobacco abuse, quit in 2009. Currently, lives in [facility]. ALLERGIES: CODEINE, CELEBREX, METOPROLOL, NEOSPORIN, AND METOLAZONE. CURRENT OUTPATIENT MEDICATIONS: 1. Vitamin C 500 mg twice daily. 2. Aspirin 81 mg daily. 3. Lipitor 40 mg daily. 4. SubQ heparin. 5. Lantus 20 units subQ daily. 6. Synthroid 125 mcg daily. 7. Hydrocodone/acetaminophen 2 tabs as needed. 8. Lorazepam 0.5 mg daily. 9. Magnesium oxide 400 mg b.i.d. 10. Zaroxolyn 2.5 mg weekly. 11. Toprol-XL 50 mg daily. 12. Multivitamin daily. 13. Protonix daily. 14. Potassium chloride tablets 20 mEq daily. 15. Prednisone 5 mg daily. 16. Zoloft 150 mg daily. 17. Spiriva inhaler 1 cap inhaled daily. 18. Demadex 100 mg. ECG ON ADMISSION: Atrial fibrillation, low voltage QRS. LABORATORY DATA: INR is 1.2. White blood cell count 16.91, hemoglobin is 11.5, and platelet count is 347. Telemetry demonstrates atrial fibrillation with a heart rate of 90 beats per minute. PHYSICAL EXAMINATION: VITAL SIGNS: Temperature is 36.5 degrees centigrade, pulse is 95 beats per minute and regular, respiratory rate 18 breaths per minute, blood pressure 111/78 and SaO2 is 92% on 4 liters. GENERAL: NAD, morbidly obese, awake and alert. HEENT: Her mucous membranes are moist. No scleral icterus. Conjunctivae pink. NECK: Supple. No JVD or HJR. No carotid bruit. HEART: Irregular with a normal S1 and S2. No murmur appreciated. LUNGS: Demonstrate clear breath sounds without rales, rhonchi, or wheeze. ABDOMEN: Obese and nontender. No rebound or guarding. Hypoactive bowel sounds. EXTREMITIES: Demonstrate bilateral erythema in the pretibial region. +2 pitting edema noted. NEUROLOGIC: Demonstrates no focal motor deficit. FINAL IMPRESSION: 1. Acute on chronic right-sided heart failure due to cor pulmonale physiology, pickwickian syndrome with additional fluid retention related to progressive renal dysfunction. 2. Chronic rate controlled atrial fibrillation. According to med rec, it appears her Coumadin has been restarted, although there is a history of falls in the past. 3. Preserved left ventricular systolic function with moderate right ventricular dysfunction and severely elevated right ventricular pressures per prior resting 2D transthoracic echos. PLAN AND RECOMMENDATIONS: The patient has been prescribed intravenous albumin by nephrology in addition to IV furosemide to help mobilize third space fluid. We will continue to monitor renal function closely. If renal function does not improve, the patient may require hemodialysis for volume management. Other cardiovascular medications will be continued as noted above. 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 No other medication changes at this time. Cardiology will continue to follow along during hospitalization. JUAN ANTONIO
--- NOTE | 2016-12-20 16:48 | INFECT. DISEASE CONSULTATION ---
DATE OF CONSULTATION: 12/20/2016 HISTORY OF PRESENT ILLNESS: This is a 61-year-old female who was admitted from [facility] after she had outpatient routine blood work done. She states that she felt throughout the week she was retaining fluid in her abdomen and she did notice decreased urine output. She did have a followup appointment with her primary care physician and routine laboratory studies were done. She states that her creatinine returned at 3.5 and she was admitted directly to the hospital for treatment of this. Her last routine blood work was on December 11 and at that time her creatinine was 2.3. She has been on Atacand for long-term treatment for a multidrug resistant Klebsiella pneumonia, bilateral sacral osteomyelitis. Her antibiotics were adjusted at her last laboratory studies secondary to increased creatinine. However, unfortunately, this has increased again. I was hopeful that she will be able to discontinue antibiotics within the next 10-14 days. She has been followed routinely at the wound care center, both by the wound care team as well as infectious disease. She has had significant improvement in the appearance of her wounds. She did have bilateral hip VACs in place and recently only has a unilateral VAC. She has been at [facility] for some time. On my examination today, she is eating lunch and has no complaints. She denies any fevers or chills. She has no chest pain, cough, shortness of breath, nausea, vomiting or diarrhea. She has no abdominal pain. She does not admit to any worsening edema of her lower extremities. Her only complaint is of a fall yesterday while getting into the car, but she states that she landed softly and she did not hit her head or lose consciousness. She does have a mild abrasion on her right forearm, but other than that, she said she was unharmed. She is on nasal cannula oxygen and appears to be tolerating that well. She is awaiting a VAC change. All remaining review of systems is reviewed and is unremarkable. PAST MEDICAL HISTORY: Significant for AFib and chronic kidney disease, cor pulmonale, type 2 diabetes, gastroparesis, hyperlipidemia, hypertension, morbid obesity, obesity hypoventilation syndrome and sleep apnea. PAST SURGICAL HISTORY: Significant for cholecystectomy and multiple buttock and hip wound debridements. FAMILY HISTORY: Noncontributory. SOCIAL HISTORY: Significant for history of tobacco use. She denies any alcohol use or drug use. She is a resident at [facility]. ALLERGIES: SHE HAS ALLERGIES TO BACITRACIN, CELEBREX, NEOMYCIN, POLYMYXIN B, SULFA, TETRACYCLINE AND CODEINE. CURRENT MEDICATIONS: Include insulin, Lasix, subQ heparin. PHYSICAL EXAMINATION: VITAL SIGNS: She is afebrile, pulse 95, respiratory rate 18, blood pressure 111/78 and oxygen saturation is 92% on 4 liters nasal cannula. GENERAL: She is awake, alert and oriented x3. She is in no acute distress. Her daughter is at bedside during the examination. HEENT: Mucous membranes are moist. Extraocular muscles are intact. HEART: Regular. LUNGS: Clear bilaterally. ABDOMEN: Soft. EXTREMITIES: There is pitting lower extremity edema but this is chronic in nature. There is bilateral lower extremity erythema which is also chronic and unchanged. The hip VAC is in place. LABORATORY DATA: All laboratory studies are pending. Her most recent laboratory studies are dated December 11 and at that time, her white blood cell count was 19, hemoglobin 11.1 and platelets were 418. Her most recent chemistry panel done as an outpatient on the 11 of December reveals a sodium of 137, potassium 3.7, chloride 98, bicarbonate 27, BUN 84, creatinine 2.3, glucose is 160. Creatinine is reportedly a 3.5 today as an outpatient. Cultures are pending. ASSESSMENT AND PLAN: Bilateral hip ulcerations with multidrug resistant Klebsiella. Secondary to her elevated creatinine and prolonged antibiotic use, she will be held from additional antibiotic therapy at this time. There is no evidence of new infection on examination today. I will follow the results of her laboratory studies as they are pending at this time. She is afebrile and clinically stable. She is on IV Lasix to manage her edema. She will continue to undergo wound care and will be followed in the wound care center by infectious disease and was discharged from the hospital. Thank you for this consultation.
[2016-12-20] MEDS: WARFARIN SOD 2.5 MG TAB PO SCH (18:46)
[2016-12-20] MEDS: ALBUMIN 25% 50 ML with FUROSEMIDE INJ 80 MG IV SCH ×2 (18:47)
[2016-12-20 19:05] VITALS: BP 124/62; PULSE 97; TEMP 36.4; O2SAT 95
[2016-12-20] MEDS: GABAPENTIN 400 MG CAP PO SCH (20:07)
[2016-12-20] MEDS: MAGNESIUM OXIDE 400 MG TAB PO SCH (20:07)
[2016-12-20] MEDS: ASCORBIC ACID 500 MG TAB PO SCH (20:07)
[2016-12-20 21:18] LABS: CKMB/CK RATIO 7.4 (0-3.0)
--- NOTE | 2016-12-20 21:27 | DIAGNOSTIC IMAGING REPORT ---
CHEST 2 VIEWS ROUTINE HISTORY: recent productive cough, SOB, ? r heart failure. COMPARISON: Chest 12/01/2016. FINDINGS: A right PICC terminates in the proximal SVC. No pneumothorax. The heart remains enlarged. Small to moderate right pleural effusion is again noted. No pneumothorax. Mild interstitial pulmonary edema persists. IMPRESSION: No change in the mild interstitial pulmonary edema, small to moderate right pleural effusion, and cardiomegaly. Electronically signed by: Jordon Littlejohn M.D. 12/20/2016 9:25 PM Dictated Date/Time: 12/20/2016 9:23 PM
[2016-12-20] MEDS: HEPARIN SOD 5000 UNIT/0.5 ML CARP SQ SCH (21:57)
[2016-12-20 23:12] VITALS: PULSE 98
[2016-12-21] VITALS (7 sets, daily range): BP systolic 89–149; BP diastolic 60–69; PULSE 82–95; TEMP 36.3–36.8; O2SAT 89–95
[2016-12-21] MEDS: HYDROCODONE/ACETAMOPHEN 5/325MG TAB PO PRN ×2 (02:29→10:13)
[2016-12-21 05:52] LABS: HEMATOCRIT 34.7 % (37-47); MEAN CELL VOLUME 77.6 fL (80-100); MEAN CORPUSCULAR HEMOGLOBIN 23.3 pg (25-34); MEAN PLATELET VOLUME 9.3 fL (7.4-10.4); PLATELET COUNT 295 K/uL (130-400); RED BLOOD COUNT 4.47 M/uL (4.2-5.4); WHITE BLOOD COUNT 14.14 K/uL (4.8-10.8)
[2016-12-21 05:57] LABS: INR 1.2 (0.9-1.1); PROTHROMBIN TIME (PATIENT) 13.4 SECONDS (9.0-12.0)
[2016-12-21] MEDS: LEVOTHYROXINE 125 MCG TAB PO SCH (06:12)
[2016-12-21] MEDS: ALBUMIN 25% 50 ML with FUROSEMIDE INJ 80 MG IV SCH ×4 (06:17→19:04)
[2016-12-21] MEDS: HEPARIN SOD 5000 UNIT/0.5 ML CARP SQ SCH ×3 (06:18→21:23)
[2016-12-21 06:23] LABS: ESTIMATED AVERAGE GLUCOSE 186 mg/dl; HA1C FLAG Normal (Normal)
[2016-12-21 06:29] LABS: BUN/CREATININE RATIO 26.2 (10-20); CALCIUM 9.2 mg/dl (8.5-10.1); POTASSIUM 4.2 mmol/L (3.5-5.1)
[2016-12-21] MEDS: CYANOCOBALAMIN 500 MCG TAB (VIT B-12) PO SCH (08:11)
[2016-12-21] MEDS: GABAPENTIN 400 MG CAP PO SCH ×2 (08:11→19:52)
[2016-12-21] MEDS: CEROVITE ADV FORMULA TAB PO SCH (08:12)
[2016-12-21] MEDS: POTASSIUM CHLORIDE 20 MEQ TABCR PO SCH (08:13)
[2016-12-21] MEDS: PANTOprazole SOD 40 MG TAB PO SCH (08:14)
[2016-12-21] MEDS: ASCORBIC ACID 500 MG TAB PO SCH ×2 (08:14→19:52)
[2016-12-21] MEDS: SERTRALINE HCL 100 MG TAB PO SCH (08:15)
[2016-12-21] MEDS: ASPIRIN 81 MG ECTAB PO SCH (08:16)
[2016-12-21] MEDS: CHOLECALCIFEROL 1000 INTER.UNIT TAB PO SCH (08:16)
[2016-12-21] MEDS: ATORVASTATIN 40 MG TAB PO SCH (08:16)
[2016-12-21] MEDS: METOPROLOL SUCC 50MG EXT REL TAB PO SCH (08:19)
[2016-12-21] MEDS: MAGNESIUM OXIDE 400 MG TAB PO SCH (08:20)
[2016-12-21] MEDS: TIOTROPIUM BROMIDE 5 PUFF/90 MCG INH INH SCH (08:21)
[2016-12-21] MEDS: INSULIN ASPART 100 UNITS/ML 3 ML PEN SC SCH ×4 (08:27→21:25)
[2016-12-21] MEDS: INSULIN GLARGINE SOLOSTAR 100 UNITS/ML 3 ML PEN SC SCH (08:28)
[2016-12-21] MEDS ORDERED: CEFTAZIDIME IV SCH (09:00)
[2016-12-21] MEDS ORDERED: AVIBACTAM IV SCH (09:00)
--- NOTE | 2016-12-21 09:39 | CARDIOLOGY PROGRESS NOTE ---
DATE: 12/21/2016 DATE: 12/21/2016. The patient seen and examined. Chart, medications, telemetry reviewed. SUBJECTIVE: The patient is sitting upright in bed. Main difficulties chronic and ongoing lower extremity edema and abdominal bloating. Notes no new complaints. Notes no dizziness or lightheadedness. Notes no syncope or near syncope. Did use CPAP overnight. Has manifested only minimal diuresis. Notes no chest pains or discomfort. Notes no syncope or near syncope. OBJECTIVE: VITAL SIGNS: Heart rate is 93, blood pressure is 109/67. Telemetry reveals atrial fibrillation with occasional ventricular ectopic beats. HEAD, EYES, EARS, NOSE, AND THROAT EXAMINATION: Normocephalic and atraumatic. NECK: Thick. LUNGS: Reveal diminished breath sounds, minimal crackles left base but predominantly are clear. CARDIOVASCULAR EXAMINATION: Irregular, irregular. There is no S3 gallop. ABDOMEN: Obese with a very large panniculus which is mildly indurated. EXTREMITIES: Reveal 3+ edema to the hips with chronic indurated changes of the lower extremities. NEUROLOGIC: The patient is answering questions alertly. LABORATORY DATA: Sodium is 140, potassium is 4.2, chloride is 102, bicarbonate is 28, BUN is 105, creatinine is 4.0, calcium level is 9.2 on admission. Albumin level is 2.5. White cell count this morning is 14.1 and hemoglobin is 10.4, MCV 77.6. IMPRESSION: A 61-year-old female with complex history of chronic right heart failure secondary to Pickwickian phenomena, morbid obesity. Course is complicated by chronic atrial fibrillation, hypoalbuminemia. She presents now with worsening edema in the setting of hypoalbuminemia and declining renal function. RECOMMENDATIONS: Iron studies will be ordered to assess need for iron supplements to aid in anemia. We will add low dose dobutamine at 2 mcg per kilogram per minute to see if this will aid in cardiac output and right heart failure. If heart rates elevate or arrhythmias become pronounced will discontinue medication. Will continue to follow along with nephrology.
[2016-12-21] MEDS ORDERED: PERFLUTREN LIPID MICROSPHERE (DEFINITY) IV ONE (09:51)
[2016-12-21 11:49] LABS: FERRITIN 102.7 ng/ml (8.0-388.0)
--- NOTE | 2016-12-21 12:36 | ECHOCARDIOGRAM REPORT ---
*NOTICE TO RECEIVING REPUBLICAN AGENCY This information is strictly Confidential and protected under [place] law. [place] law prohibits you from making any further disclosure of this information unless further disclosure is expressly permitted by the written consent of the person to whom it pertains or is authorized by law. A general authorization for the release of medical or other information is not sufficient for this purpose. Hospital accepts no responsibility if the information is made available to any other person, INCLUDING THE PATIENT. Interpretation Summary * Name: MICHAEL CRUZ Study Date: 12/21/2016 09:24 AM BP: 109/67 mmHg * Patient Location: .2E\S\E206\S\1 HR: 100 * : 1955 (M/d/yyyy) Gender: Female Height: 64 in * Age: 61 yrs Ethnicity: CA Weight: 297 lb * Ordering Physician: Tricia King * Referring Physician: Isiah Faith * Performed By: Darwin Prabhakar RDCS * * Reason For Study: CHF * BSA: 2.3 m2 * -- Conclusions -- * The left ventricular cavity is small. * There is moderate concentric left ventricular hypertrophy. * Left ventricular systolic function is normal. * Flattened septum is consistent with RV pressure overload. * The left ventricular wall motion is normal. * Ejection Fraction = 65-70%. * The right ventricular cavity size is enlarged (proximal parasternal long axis right ventricular outflow tract dimension >3.3 cm). * The left atrium is mildly dilated. * The right atrium is mild to moderately dilated. * There is mild tricuspid regurgitation. * Right ventricular systolic pressure is severely elevated at >60mmHg. Procedure Details * A complete two-dimensional transthoracic echocardiogram was performed (2D, M-mode, Doppler and color flow Doppler). * The study was technically limited. * There were technical limitations due to patient'sbody habitus * The study was technically difficult, but visualization was adequate with the administration of Definity ultrasound contrast. * A contrast injection of Definity was performed to improve assessment of LV function. * Contrast was injected into an intravenous site in the right arm. * One vial of Definity ultrasound contrast was diluted in normal saline to a total volume of 10 ml. A total of '3' ml of solution was administered during imaging. * Lot # [id number] of Definity utilized for procedure. * Expiration date 1APR18. * The attending nurse who injected the contrast agent was MIRNA Summers. Left Ventricle * The left ventricular cavity is small. * There is moderate concentric left ventricular hypertrophy. * Left ventricular systolic function is normal. * Ejection Fraction = 65-70%. * The left ventricular wall motion is normal. * Flattened septum is consistent with RV pressure overload. Right Ventricle * The right ventricular cavity size is enlarged (proximal parasternal long axis right ventricular outflow tract dimension >3.3 cm). Atria * The left atrium is mildly dilated. * The right atrium is mild to moderately dilated. * No ASD detected; PFO is not assessed. Mitral Valve * The mitral valve anatomy is normal. * There is no mitral valve stenosis. * There is trace mitral regurgitation. Tricuspid Valve * The tricuspid valve is not well visualized, but is grossly normal. * There is no tricuspid stenosis. * There is mild tricuspid regurgitation. * Right ventricular systolic pressure is elevated at >60mmHg. Aortic Valve * The aortic valve is trileaflet. * No hemodynamically significant valvular aortic stenosis. * No aortic regurgitation is present. Pulmonic Valve * The pulmonic valve is not well visualized. Great Vessels * The aortic root is normal size. Pericardium/Pleural * There is no pericardial effusion. Great Vessels * Dilated inferior vena cava with reduced collapsability with sniff indicates an elevated right atrial pressure of 15 mmHg MMode 2D Measurements and Calculations IVSd 1.5 cm IVSs 1.8 cm LVIDd 3.0 cm LVIDs 2.2 cm LVPWd 1.5 cm LVPWs 1.8 cm IVS/LVPW 0.99 FS 27.0 % EDV(Teich) 35.9 ml ESV(Teich) 16.4 ml EF(Teich) 54.2 % EDV(cubed) 27.9 ml ESV(cubed) 10.8 ml EF(cubed) 61.1 % % IVS thick 21.2 % % LVPW thick 20.5 % LV mass(C)d 157.2 grams LV mass(C)dI 67.9 grams/m\S\2 LV mass(C)s 154.0 grams LV mass(C)sI 66.6 grams/m\S\2 SV(Teich) 19.5 ml SI(Teich) 8.4 ml/m\S\2 SV(cubed) 17.0 ml SI(cubed) 7.4 ml/m\S\2 EPSS 0.31 cm Ao root diam 2.9 cm Ao root area 6.4 cm\S\2 ACS 2.0 cm LA dimension 3.9 cm asc Aorta Diam 2.4 cm LA/Ao 1.4 LVOT diam 1.9 cm LVOT area 2.7 cm\S\2 LVAd ap4 22.2 cm\S\2 LVLd ap4 7.0 cm EDV(MOD-sp4) 57.0 ml LVAs ap4 12.3 cm\S\2 LVLs ap4 6.5 cm ESV(MOD-sp4) 21.0 ml EF(MOD-sp4) 63.2 % LVAd ap2 30.3 cm\S\2 LVLd ap2 7.0 cm EDV(MOD-sp2) 108.0 ml LVAs ap2 16.7 cm\S\2 LVLs ap2 5.4 cm ESV(MOD-sp2) 41.0 ml EF(MOD-sp2) 62.0 % SV(MOD-sp4) 36.0 ml SI(MOD-sp4) 15.6 ml/m\S\2 SV(MOD-sp2) 67.0 ml SI(MOD-sp2) 29.0 ml/m\S\2 Doppler Measurements and Calculations MV E max anival 105.5 cm/sec MV dec time 0.19 sec Ao V2 max 135.5 cm/sec Ao max PG 7.3 mmHg Ao max PG (full) 4.6 mmHg BRETT(V,A) 1.7 cm\S\2 BRETT(V,D) 1.7 cm\S\2 LV V1 max PG 2.8 mmHg LV V1 max 83.3 cm/sec PA V2 max 105.3 cm/sec PA max PG 4.4 mmHg PI end-d anival 143.3 cm/sec TR max anival 399.6 cm/sec
[2016-12-21] MEDS: DOBUTamine / D5W 500 MG IV PRN (12:38)
--- NOTE | 2016-12-21 16:42 | Nephrology Progress Note ---
Nephrology Progress Note Date of Service: Dec 21, 2016. Subjective c/o RLQ ant wall abd pain; no n/v; voiding some; cardiology starting dobutamine ; seen on rounds this am 0930 Objective Date Time Temp Pulse Resp B/P Pulse Ox O2 Delivery O2 Flow Rate FiO2 12/21/16 15:00 36.4 82 17 110/60 90 Nasal Cannula 4.0 12/21/16 12:00 Nasal Cannula 4.0 CPAP 12/21/16 10:54 36.3 93 22 101/62 92 Nasal Cannula 4.0 12/21/16 08:00 Nasal Cannula 4.0 CPAP 12/21/16 07:25 36.5 93 17 109/67 89 BiPAP 12/21/16 04:00 Nasal Cannula 4.0 CPAP 12/21/16 04:00 36.8 88 22 89/62 95 CPAP 12/21/16 00:00 36.3 95 20 114/67 95 Nasal Cannula 4.0 12/21/16 00:00 Nasal Cannula 4.0 CPAP 12/20/16 23:12 98 4.0 12/20/16 20:00 Nasal Cannula 4.0 CPAP 12/20/16 19:05 36.4 97 15 124/62 95 Nasal Cannula 4.0 Physical Exam: GENERAL: Awake, alert, oriented x3, morbidly obese, sitting on side of bed on 02nc EYES: No scleral icterus. EARS, NOSE, THROAT: Moist mucous membranes. LUNGS: Clear to auscultation but exp wheezes. CARDIAC: Irregular in 90s and distant ABDOMEN: Very large pannus with a wound VAC on the left hip from previous surgery. EXTREMITIES: Bilateral erythematous +1 indurated edema. NEUROLOGICALLY: laboy/fluent speech Current Inpatient Medications Medications (Trade) Dose Ordered Sig/Tyrone Route Start Time Stop Time Status Last Admin Dose Admin Heparin Sodium (Porcine) (Heparin Sq 5000 Unit/0.5ml) 5,000 unit Q8 SQ 12/20/16 22:00 01/19/17 21:59 12/21/16 14:52 5,000 UNIT Glucose (Glucose 40% Gel) 15-30 GRAMS 15 GRAMS... UD PRN PO 12/20/16 12:15 01/19/17 12:14 Glucose (Glucose Chew Tab) 4-8 Tablets 4 Tabl... UD PRN PO 12/20/16 12:15 5/7/17 12:14 Dextrose (Dextrose 50% 50ML Syringe) 25-50ML OF 50% DW IV FOR... UD PRN IV 12/20/16 12:15 01/19/17 12:14 Glucagon (Glucagon Inj) 1 mg UD PRN SQ 12/20/16 12:15 01/19/17 12:14 Miscellaneous Information (Consult Glycemic Management Pharmacy) 1 ea UD PRN N/A 12/20/16 12:16 01/19/17 12:15 Insulin Glargine (Lantus Solostar Pen) 12 unit QAM SC 12/21/16 09:00 01/20/17 08:59 12/21/16 08:28 12 UNIT Insulin Aspart SLIDING SCALE If C... ACHS SC 12/20/16 12:30 01/19/17 12:29 12/21/16 12:28 12 UNITS Furosemide/ Albumin Human (Lasix Inj/ Albumin 25%) 58 ml @ 54 mls/hr Q12H IV 12/20/16 18:00 12/23/16 17:59 12/21/16 06:17 54 MLS/HR Albuterol (Ventolin Hfa Inhaler) 2 puffs QID PRN INH 12/20/16 14:15 01/19/17 14:14 Ascorbic Acid (Vitamin C Tab) 500 mg BID PO 12/20/16 21:00 01/19/17 20:59 12/21/16 08:14 500 MG Aspirin (Ecotrin Tab) 81 mg DAILY PO 12/21/16 09:00 01/20/17 08:59 12/21/16 08:16 81 MG Atorvastatin Calcium (Lipitor Tab) 40 mg DAILY PO 12/21/16 09:00 01/20/17 08:59 12/21/16 08:16 40 MG Calcitriol (Rocaltrol Cap) 0.25 mcg MoWeFr@0900 PO 12/23/16 09:00 01/22/17 08:59 Cholecalciferol (Vitamin D Tab) 2,000 inter.unit DAILY PO 12/21/16 09:00 01/20/17 08:59 12/21/16 08:16 2,000 INTER.UNIT Cyanocobalamin (Vitamin B-12 Tab) 1,000 mcg DAILY PO 12/21/16 09:00 01/20/17 08:59 12/21/16 08:11 1,000 MCG Gabapentin (Neurontin Cap) 400 mg BID PO 12/20/16 21:00 01/19/17 20:59 12/21/16 08:11 400 MG Hydroxyzine HCl (Vistaril Tab) 25 mg Q6H PRN PO 12/20/16 14:15 01/19/17 14:14 Levothyroxine Sodium (Synthroid Tab) 125 mcg DAILYBB PO 12/21/16 06:00 01/20/17 05:59 12/21/16 06:12 125 MCG Lorazepam (Ativan Tab) 0.5 mg DAILY PRN PO 12/20/16 14:15 01/19/17 14:14 12/20/16 15:39 0.5 MG Magnesium Oxide (Mag-Ox Tab) 400 mg BID PO 12/20/16 21:00 01/19/17 20:59 12/21/16 08:20 400 MG Metoprolol Succinate (Toprol Xl Tab) 50 mg DAILY PO 12/21/16 09:00 01/20/17 08:59 12/21/16 08:19 50 MG Miconazole Nitrate (Desenex Powder) 1 appln MoWeFr@0900 EXT 12/23/16 09:00 01/22/17 08:59 Multivitamins/ Minerals (Multivitamin W/ Minerals Tab) 1 tab DAILY PO 12/21/16 09:00 01/20/17 08:59 12/21/16 08:12 1 TAB Potassium Chloride (Klor-Con Tab) 20 meq DAILY PO 12/21/16 09:00 01/20/17 08:59 12/21/16 08:13 20 MEQ Prednisone (PredniSONE TAB) 5 mg DAILY PO 12/21/16 09:00 01/20/17 08:59 12/21/16 08:14 5 MG Sertraline HCl (Zoloft Tab) 150 mg DAILY PO 12/21/16 09:00 01/20/17 08:59 12/21/16 08:15 150 MG Tiotropium [place] (Spiriva Handihaler Inhaler) 1 puff DAILY INH 12/21/16 09:00 01/20/17 08:59 12/21/16 08:21 1 PUFF Warfarin Sodium (Coumadin Tab) 2.5 mg DAILY@16 PO 12/20/16 16:00 01/19/17 15:59 12/20/16 18:46 2.5 MG Acetaminophen/ Hydrocodone Bitart ([place] 5/325 Tab) one to two tabs as nee... Q6H PRN PO 12/20/16 14:15 01/03/17 14:14 12/21/16 10:13 1 TAB Pantoprazole Sodium 40 mg 40 mg QAM PO 12/21/16 09:00 01/20/17 08:59 12/21/16 08:14 40 MG Dobutamine HCl (DOBUTamine / D5W) 250 ml @ 0 mls/hr Q0M PRN IV 12/21/16 09:30 01/20/17 09:29 12/21/16 12:38 1 MLS/HR Last 24 Hours Test 12/20/16 20:16 12/20/16 20:35 12/21/16 04:50 12/21/16 06:40 Bedside Glucose 166 mg/dl 129 mg/dl Total Creatine Kinase 23 U/L Creatine Kinase MB 1.7 ng/ml Creatine Kinase MB Ratio 7.4 Troponin I 0.017 ng/ml White Blood Count 14.14 K/uL Red Blood Count 4.47 M/uL Hemoglobin 10.4 g/dL Hematocrit 34.7 % Mean Corpuscular Volume 77.6 fL Mean Corpuscular Hemoglobin 23.3 pg Mean Corpuscular Hemoglobin Concent 30.0 g/dl RDW Standard Deviation 51.2 fL RDW Coefficient of Variation 17.9 % Platelet Count 295 K/uL Mean Platelet Volume 9.3 fL Prothrombin Time 13.4 SECONDS Prothromb Time International Ratio 1.2 Sodium Level 140 mmol/L Potassium Level 4.2 mmol/L Chloride Level 102 mmol/L Carbon Dioxide Level 28 mmol/L Anion Gap 10.0 mmol/L Blood Urea Nitrogen 105 mg/dl Creatinine 4.00 mg/dl Est Creatinine Clear Calc Drug Dose 20.3 ml/min Estimated GFR () 13.1 Estimated GFR (Non- 11.3 BUN/Creatinine Ratio 26.2 Random Glucose 99 mg/dl Estimated Average Glucose 186 mg/dl Hemoglobin A1c 8.1 % Calcium Level 9.2 mg/dl Iron Level 21 mcg/dl Ferritin 102.7 ng/ml 25-Hydroxy Vitamin D Total 40.3 ng/ml Parathyroid Hormone (Intact) 178.3 pg/mL Test 12/21/16 11:25 Bedside Glucose 154 mg/dl Assessment & Plan 61-year-old female with chronic right heart failure secondary to obesity hypoventilation syndrome, chronic a fib, chronic pannus infections w/ wound vac , chronic volume overload, CKD 4 admitted with FRED on CKD and symptomatic volume overload. 1. Acute kidney injury on chronic kidney disease stage IV with uremic symptoms including decreased appetite, pruritus, fatigue, volume overload. cont albumin with Lasix today (changed dose to 60 mg IV tid) w/ addition of dobutamine to help mobilize the third spaced fluid. Considering whether she would do dialysis if this does not work; no emergent indication 2. Hypermagnesemia, magnesium supplements stopped; recheck levels on 12/23. 3. Anemia of chronic kidney disease. iron studies pending to see if patient may benefit from Procrit and/or venofer. Appreciate consult; care coordinated w/ Dr Santa.
--- NOTE | 2016-12-21 16:45 | Progress Note ---
Internal Med Progress Note Date of Service: Dec 21, 2016. Provider Documentation: SUBJECTIVE: Patient says she feels the same Has chronic SOB, no worsening, but overall abdominal distension No nausea, vomiting, chest pain, fever, chills. OBJECTIVE: Vital Signs-as noted below Exam: GEN: morbidly obese, in no acute distress, alert , awake, oriented x 3 CARDIO: irreg, S1/2 heard without murmurs LUNGS: AEBE decreased, No wheezing ABD: soft, non tender, edematous with large pannus - difficult exam, +BS EXTREMITY: Chronic Erythema bilateral lower extremities, Chronic swelling in LEs but no pitting edema, Rt forearm with minor skin tears and wound over them. PICC in place in LUE with no surrounding erythema. SKIN: Wound vac to Lt glutes/posterior thigh area, no surrounding erythema. Wound, chronic-appearing to Rt buttock similar in size to L sided wound Lab data as noted below. ASSESSMENT & PLAN: 61 year old F with acute R heart failure exacerbation and FRED: ACUTE ON CHRONIC CHF, RIGHT HEART FAILURE -Presented with weight gain of 13 lbs, SOB, increase in abdominal girth -IV Lasix/IV Albumin per nephrology to help mobilize the third space fluid -IV Dobutamine drip started today to augment cardiac output per cardiology -If worsens, would consider dialysis though patient hesitant at this time -Work up=- Trop- 0.025-->0.107, Echo- EF 65-70%, Moderate LVH, RA- mild to moderately dilated, Rt Ventricular systolic pressure - severely elevated at >60 mm hg -Appreciate cardiology/Nephrology inputs FRED ON CKD-IV Baseline around 2, now 3.9. -On IV Lasix/Albumin as above -May require dialysis if doesn't improve per nephrology -Appreciate nephrology inputs BILATERAL HIP ULCERATIONS (CHRONICALLY INFECTED-KLEBSIELLA) -On IV antibiotics - skilled nursing due to multi drug resistant klebsiella infection , which was discontinued this admission by ID. Has required multiple times dosage adjustments due to elevated creatinine. Had B /L wound vacs now unilateral wound vacs -No acute issues this admission -Appreciate ID inputs -Continue with wound care ANEMIA, LIKELY CHRONIC KIDNEY DISEASE -Iron studies ordered- follow up -Hb stable -No signs of active bleeding ATRIAL FIBRILLATION-Stable -Continue with Metoprolol, Coumadin -INR monitoring CHRONIC HYPOXIC RESPIRATORY FAILURE WITH HX OF CHRONIC COPD -Stable S/P MECHANICAL FALL WITH RIGHT KNEE SPRAIN -No indication for x ray as symptoms better, normal ROM, No effusion on exam DMII- Continue with ISS, Lantus DEPRESSION- Continue with zoloft HYPOTHYROIDISM -Continue with synthroid MORBID OBESITY DVT prophy: heparin SQ till INR is therapeutic FULL CODE DISPOSITION Continue with Tele monitoring Vital Signs: Date Time Temp Pulse Resp B/P Pulse Ox O2 Delivery O2 Flow Rate FiO2 12/21/16 15:00 36.4 82 17 110/60 90 Nasal Cannula 4.0 12/21/16 12:00 Nasal Cannula 4.0 CPAP 12/21/16 10:54 36.3 93 22 101/62 92 Nasal Cannula 4.0 12/21/16 08:00 Nasal Cannula 4.0 CPAP 12/21/16 07:25 36.5 93 17 109/67 89 BiPAP 12/21/16 04:00 Nasal Cannula 4.0 CPAP 12/21/16 04:00 36.8 88 22 89/62 95 CPAP 12/21/16 00:00 36.3 95 20 114/67 95 Nasal Cannula 4.0 12/21/16 00:00 Nasal Cannula 4.0 CPAP 12/20/16 23:12 98 4.0 12/20/16 20:00 Nasal Cannula 4.0 CPAP 12/20/16 19:05 36.4 97 15 124/62 95 Nasal Cannula 4.0 Lab Results: Results Past 24 Hours Test 12/20/16 20:16 12/20/16 20:35 12/21/16 04:50 12/21/16 06:40 Range/Units Bedside Glucose 166 129 70-90 mg/dl Total Creatine Kinase 23 26-192 U/L Creatine Kinase MB 1.7 0.5-3.6 ng/ml Creatine Kinase MB Ratio 7.4 0-3.0 Troponin I 0.017 0-0.045 ng/ml White Blood Count 14.14 4.8-10.8 K/uL Red Blood Count 4.47 4.2-5.4 M/uL Hemoglobin 10.4 12.0-16.0 g/dL Hematocrit 34.7 37-47 % Mean Corpuscular Volume 77.6 80-100 fL Mean Corpuscular Hemoglobin 23.3 25-34 pg Mean Corpuscular Hemoglobin Concent 30.0 32-36 g/dl RDW Standard Deviation 51.2 36.4-46.3 fL RDW Coefficient of Variation 17.9 11.5-14.5 % Platelet Count 295 130-400 K/uL Mean Platelet Volume 9.3 7.4-10.4 fL Prothrombin Time 13.4 9.0-12.0 SECONDS Prothromb Time International Ratio 1.2 0.9-1.1 Sodium Level 140 136-145 mmol/L Potassium Level 4.2 3.5-5.1 mmol/L Chloride Level 102 98-107 mmol/L Carbon Dioxide Level 28 21-32 mmol/L Anion Gap 10.0 3-11 mmol/L Blood Urea Nitrogen 105 7-18 mg/dl Creatinine 4.00 0.60-1.20 mg/dl Est Creatinine Clear Calc Drug Dose 20.3 ml/min Estimated GFR () 13.1 Estimated GFR (Non- 11.3 BUN/Creatinine Ratio 26.2 10-20 Random Glucose 99 70-99 mg/dl Estimated Average Glucose 186 mg/dl Hemoglobin A1c 8.1 4.5-5.6 % Calcium Level 9.2 8.5-10.1 mg/dl Iron Level 21 35-150 mcg/dl Ferritin 102.7 8.0-388.0 ng/ml 25-Hydroxy Vitamin D Total 40.3 30-100 ng/ml Parathyroid Hormone (Intact) 178.3 11.1-79.5 pg/mL Test 12/21/16 11:25 12/21/16 16:14 Range/Units Bedside Glucose 154 152 70-90 mg/dl
[2016-12-21] MEDS ORDERED: ALBUMIN 25% IV ONE ×2 (17:30)
[2016-12-21] MEDS ORDERED: FUROSEMIDE IV ONE ×2 (17:30)
[2016-12-21] MEDS: WARFARIN SOD 2.5 MG TAB PO SCH (17:40)
[2016-12-22] MEDS: HYDROCODONE/ACETAMOPHEN 5/325MG TAB PO PRN ×2 (02:48→08:55)
[2016-12-22 04:20] VITALS: BP 111/54; PULSE 91; TEMP 36.4; O2SAT 91
[2016-12-22] MEDS: HEPARIN SOD 5000 UNIT/0.5 ML CARP SQ SCH ×3 (06:07→21:28)
[2016-12-22] MEDS: ALBUMIN 25% 50 ML with FUROSEMIDE INJ 80 MG IV SCH ×4 (06:07→16:45)
[2016-12-22 06:17] LABS: INR 1.2 (0.9-1.1); PROTHROMBIN TIME (PATIENT) 12.8 SECONDS (9.0-12.0)
[2016-12-22] MEDS: LEVOTHYROXINE 125 MCG TAB PO SCH (06:17)
[2016-12-22] MEDS: INSULIN ASPART 100 UNITS/ML 3 ML PEN SC SCH ×4 (07:00→21:28)
[2016-12-22 07:05] VITALS: BP 118/59; PULSE 94; TEMP 36.6; O2SAT 90
[2016-12-22 07:23] LABS: TOTAL IRON BINDING CAPACITY 244 mcg/dl (250-450)
[2016-12-22] MEDS: TIOTROPIUM BROMIDE 5 PUFF/90 MCG INH INH SCH (08:58)
[2016-12-22] MEDS: ATORVASTATIN 40 MG TAB PO SCH (08:58)
[2016-12-22] MEDS: CYANOCOBALAMIN 500 MCG TAB (VIT B-12) PO SCH (08:58)
[2016-12-22] MEDS: ASPIRIN 81 MG ECTAB PO SCH (08:58)
[2016-12-22] MEDS: GABAPENTIN 400 MG CAP PO SCH ×2 (08:59→19:37)
[2016-12-22] MEDS: CEROVITE ADV FORMULA TAB PO SCH (08:59)
[2016-12-22] MEDS: METOPROLOL SUCC 50MG EXT REL TAB PO SCH (08:59)
[2016-12-22] MEDS: CHOLECALCIFEROL 1000 INTER.UNIT TAB PO SCH (09:01)
[2016-12-22] MEDS: ASCORBIC ACID 500 MG TAB PO SCH ×2 (09:02→19:36)
[2016-12-22] MEDS: PANTOprazole SOD 40 MG TAB PO SCH (09:02)
[2016-12-22] MEDS: SERTRALINE HCL 100 MG TAB PO SCH (09:02)
[2016-12-22] MEDS: POTASSIUM CHLORIDE 20 MEQ TABCR PO SCH (09:03)
[2016-12-22] MEDS: INSULIN GLARGINE SOLOSTAR 100 UNITS/ML 3 ML PEN SC SCH (09:07)
--- NOTE | 2016-12-22 10:10 | Nephrology Progress Note ---
Nephrology Progress Note Date of Service: Dec 22, 2016. Subjective c/o thirst; no c/o abd pain. no n/v; voiding some though output still <1L; tolerating dobutamine so far Objective Date Time Temp Pulse Resp B/P Pulse Ox O2 Delivery O2 Flow Rate FiO2 12/22/16 07:05 36.6 94 18 118/59 90 Nasal Cannula 4.0 12/22/16 04:20 36.4 91 16 111/54 91 CPAP 12/22/16 04:00 Nasal Cannula 4.0 CPAP 12/22/16 00:00 Nasal Cannula 4.0 CPAP 12/21/16 23:40 4.0 12/21/16 23:10 36.8 88 18 149/69 93 Nasal Cannula 4.0 Humidified Oxygen 12/21/16 20:00 Nasal Cannula 4.0 CPAP 12/21/16 18:00 Nasal Cannula 4.0 CPAP 12/21/16 15:53 36.5 94 18 100/65 90 Nasal Cannula 4.0 12/21/16 15:00 36.4 82 17 110/60 90 Nasal Cannula 4.0 12/21/16 12:00 Nasal Cannula 4.0 CPAP 12/21/16 10:54 36.3 93 22 101/62 92 Nasal Cannula 4.0 Physical Exam: GENERAL: Awake, alert, oriented x3, morbidly obese, up in chair on 02nc EYES: No scleral icterus. EARS, NOSE, THROAT: Moist mucous membranes. LUNGS: Clear to auscultation w/ diminished air entry. CARDIAC: Irregular in 110s and distant ABDOMEN: Very large pannus with a wound VAC on the left from previous surgery. delatorre + EXTREMITIES: Bilateral erythematous +3 indurated edema. NEUROLOGICALLY: laboy/fluent speech, limited insight Current Inpatient Medications Medications (Trade) Dose Ordered Sig/Tyrone Route Start Time Stop Time Status Last Admin Dose Admin Heparin Sodium (Porcine) (Heparin Sq 5000 Unit/0.5ml) 5,000 unit Q8 SQ 12/20/16 22:00 01/19/17 21:59 12/22/16 06:07 5,000 UNIT Glucose (Glucose 40% Gel) 15-30 GRAMS 15 GRAMS... UD PRN PO 12/20/16 12:15 01/19/17 12:14 Glucose (Glucose Chew Tab) 4-8 Tablets 4 Tabl... UD PRN PO 12/20/16 12:15 01/19/17 12:14 Dextrose (Dextrose 50% 50ML Syringe) 25-50ML OF 50% DW IV FOR... UD PRN IV 12/20/16 12:15 01/19/17 12:14 Glucagon (Glucagon Inj) 1 mg UD PRN SQ 12/20/16 12:15 01/19/17 12:14 Miscellaneous Information (Consult Glycemic Management Pharmacy) 1 ea UD PRN N/A 12/20/16 12:16 01/19/17 12:15 Insulin Glargine (Lantus Solostar Pen) 12 unit QAM SC 12/21/16 09:00 01/20/17 08:59 12/22/16 09:07 12 UNIT Insulin Aspart SLIDING SCALE If C... ACHS SC 12/20/16 12:30 01/19/17 12:29 12/22/16 07:00 5 UNITS Furosemide/ Albumin Human (Lasix Inj/ Albumin 25%) 58 ml @ 54 mls/hr Q12H IV 12/20/16 18:00 12/23/16 17:59 12/22/16 06:07 54 MLS/HR Albuterol (Ventolin Hfa Inhaler) 2 puffs QID PRN INH 12/20/16 14:15 01/19/17 14:14 12/22/16 09:01 2 PUFFS Ascorbic Acid (Vitamin C Tab) 500 mg BID PO 12/20/16 21:00 01/19/17 20:59 12/22/16 09:02 500 MG Aspirin (Ecotrin Tab) 81 mg DAILY PO 12/21/16 09:00 01/20/17 08:59 12/22/16 08:58 81 MG Atorvastatin Calcium (Lipitor Tab) 40 mg DAILY PO 12/21/16 09:00 01/20/17 08:59 12/22/16 08:58 40 MG Calcitriol (Rocaltrol Cap) 0.25 mcg MoWeFr@0900 PO 12/23/16 09:00 01/22/17 08:59 Cholecalciferol (Vitamin D Tab) 2,000 inter.unit DAILY PO 12/21/16 09:00 01/20/17 08:59 12/22/16 09:01 2,000 INTER.UNIT Cyanocobalamin (Vitamin B-12 Tab) 1,000 mcg DAILY PO 12/21/16 09:00 01/20/17 08:59 12/22/16 08:58 1,000 MCG Gabapentin (Neurontin Cap) 400 mg BID PO 12/20/16 21:00 01/19/17 20:59 12/22/16 08:59 400 MG Hydroxyzine HCl (Vistaril Tab) 25 mg Q6H PRN PO 12/20/16 14:15 01/19/17 14:14 12/22/16 08:59 25 MG Levothyroxine Sodium (Synthroid Tab) 125 mcg DAILYBB PO 12/21/16 06:00 01/20/17 05:59 12/22/16 06:17 125 MCG Lorazepam (Ativan Tab) 0.5 mg DAILY PRN PO 12/20/16 14:15 01/19/17 14:14 12/20/16 15:39 0.5 MG Metoprolol Succinate (Toprol Xl Tab) 50 mg DAILY PO 12/21/16 09:00 01/20/17 08:59 12/22/16 08:59 50 MG Miconazole Nitrate (Desenex Powder) 1 appln MoWeFr@0900 EXT 12/23/16 09:00 01/22/17 08:59 Multivitamins/ Minerals (Multivitamin W/ Minerals Tab) 1 tab DAILY PO 12/21/16 09:00 01/20/17 08:59 12/22/16 08:59 1 TAB Potassium Chloride (Klor-Con Tab) 20 meq DAILY PO 12/21/16 09:00 01/20/17 08:59 12/22/16 09:03 20 MEQ Prednisone (PredniSONE TAB) 5 mg DAILY PO 12/21/16 09:00 01/20/17 08:59 12/22/16 09:01 5 MG Sertraline HCl (Zoloft Tab) 150 mg DAILY PO 12/21/16 09:00 01/20/17 08:59 12/22/16 09:02 150 MG Tiotropium [place] (Spiriva Handihaler Inhaler) 1 puff DAILY INH 12/21/16 09:00 01/20/17 08:59 12/22/16 08:58 1 PUFF Warfarin Sodium (Coumadin Tab) 2.5 mg DAILY@16 PO 12/20/16 16:00 01/19/17 15:59 12/21/16 17:40 2.5 MG Acetaminophen/ Hydrocodone Bitart ([place] 5/325 Tab) one to two tabs as nee... Q6H PRN PO 12/20/16 14:15 01/03/17 14:14 12/22/16 08:55 2 TAB Pantoprazole Sodium 40 mg 40 mg QAM PO 12/21/16 09:00 01/20/17 08:59 12/22/16 09:02 40 MG Dobutamine HCl (DOBUTamine / D5W) 250 ml @ 0 mls/hr Q0M PRN IV 12/21/16 09:30 01/20/17 09:29 12/21/16 12:38 1 MLS/HR Heparin Sodium (Porcine) 5 ml 5 ml PRN PRN FLUSH 12/22/16 00:45 01/21/17 00:44 Iron Sucrose/ Sodium Chloride (Venofer Inj/Nss 100ml) 110 ml @ 420 mls/hr DAILY@1000 IV 12/22/16 10:00 12/26/16 10:16 Last 24 Hours Test 12/21/16 11:25 12/21/16 16:14 12/21/16 20:18 12/22/16 05:23 Bedside Glucose 154 mg/dl 152 mg/dl 144 mg/dl Prothrombin Time 12.8 SECONDS Prothromb Time International Ratio 1.2 Iron Level 16 mcg/dl Total Iron Binding Capacity 244 mcg/dl Transferrin 208 mg/dl Transferrin % Saturation 5 % Test 12/22/16 06:44 12/22/16 08:57 Bedside Glucose 124 mg/dl Assessment & Plan 61-year-old female with chronic right heart failure secondary to obesity hypoventilation syndrome, chronic a fib, chronic pannus infections w/ wound vac , chronic volume overload, CKD 4 admitted with FRED on CKD and symptomatic volume overload. 1. Acute kidney injury on chronic kidney disease stage IV with uremic symptoms including decreased appetite, pruritus, fatigue, volume overload. cont albumin with Lasix today (cont 60 mg IV tid) w/ addition of dobutamine to help mobilize the third spaced fluid. Considering whether she would do dialysis if this does not work; no emergent indication; did fluid limit 1.2L daily though she is not hitting this usually; no need for renal diet yet. would not consult vascular yet for tdc though I believe she will need it 2. Hypermagnesemia, magnesium supplements stopped; recheck levels on 12/23. 3. Anemia of chronic kidney disease. pt has low iron stores >> will give course of venofer and once done / as needed consider Procrit Appreciate consult; care coordinated w/ Dr Grace.
--- NOTE | 2016-12-22 10:58 | Progress Note ---
Internal Med Progress Note Date of Service: Dec 22, 2016. Provider Documentation: SUBJECTIVE: Patient says she feels the same. Has chronic SOB, no worsening, but overall abdominal distension No nausea, vomiting, chest pain, fever, chills. OBJECTIVE : Vital Signs-as noted below Exam: GEN: morbidly obese, in no acute distress, alert , awake, oriented x 3 CARDIO: irreg, S1/2 heard without murmurs LUNGS: AEBE decreased, No wheezing ABD: soft, non tender, edematous with large pannus - difficult exam, +BS EXTREMITY: Chronic Erythema bilateral lower extremities, Chronic swelling in LEs but no pitting edema, Rt forearm with minor skin tears and wound over them. PICC in place in LUE with no surrounding erythema. SKIN: Wound vac to Lt glutes/posterior thigh area, no surrounding erythema. Wound, chronic-appearing to Rt buttock similar in size to L sided wound Lab data as noted below. ASSESSMENT & PLAN: 61 year old F with acute R heart failure exacerbation and FRED: ACUTE ON CHRONIC CHF, RIGHT HEART FAILURE -Presented with weight gain of 13 lbs, SOB, increase in abdominal girth -IV Lasix/IV Albumin per nephrology to help mobilize the third space fluid -IV Dobutamine drip started on 12/21/16 to augment cardiac output per cardiology -If worsens, would consider dialysis though patient hesitant at this time -Work up=- Trop- 0.025-->0.107, Echo- EF 65-70%, Moderate LVH, RA- mild to moderately dilated, Rt Ventricular systolic pressure - severely elevated at >60 mm hg -Appreciate cardiology/Nephrology inputs FRED ON CKD-IV Baseline around 2, now 3.9. -On IV Lasix/Albumin as above -May require dialysis if doesn't improve per nephrology -Appreciate nephrology inputs BILATERAL HIP ULCERATIONS (CHRONICALLY INFECTED-KLEBSIELLA) -On IV antibiotics - assisted due to multi drug resistant klebsiella infection , which was discontinued this admission by ID. Has required multiple times dosage adjustments due to elevated creatinine. Had B /L wound vacs now unilateral wound vacs -No acute issues this admission -Appreciate ID inputs -Continue with wound care ANEMIA, LIKELY CHRONIC KIDNEY DISEASE -Iron studies ordered- follow up -Hb stable -No signs of active bleeding ATRIAL FIBRILLATION-Stable -Continue with Metoprolol, Coumadin -INR monitoring CHRONIC HYPOXIC RESPIRATORY FAILURE WITH HX OF CHRONIC COPD -Stable S/P MECHANICAL FALL WITH RIGHT KNEE SPRAIN -No indication for x ray as symptoms better, normal ROM, No effusion on exam DMII- Continue with ISS, Lantus DEPRESSION- Continue with zoloft HYPOTHYROIDISM -Continue with synthroid MORBID OBESITY DVT prophy: heparin SQ till INR is therapeutic FULL CODE DISPOSITION Continue with Tele monitoring Follow up BMP today Vital Signs: Date Time Temp Pulse Resp B/P Pulse Ox O2 Delivery O2 Flow Rate FiO2 12/22/16 07:05 36.6 94 18 118/59 90 Nasal Cannula 4.0 12/22/16 04:20 36.4 91 16 111/54 91 CPAP 12/22/16 04:00 Nasal Cannula 4.0 CPAP 12/22/16 00:00 Nasal Cannula 4.0 CPAP 12/21/16 23:40 4.0 12/21/16 23:10 36.8 88 18 149/69 93 Nasal Cannula 4.0 Humidified Oxygen 12/21/16 20:00 Nasal Cannula 4.0 CPAP 12/21/16 18:00 Nasal Cannula 4.0 CPAP 12/21/16 15:53 36.5 94 18 100/65 90 Nasal Cannula 4.0 12/21/16 15:00 36.4 82 17 110/60 90 Nasal Cannula 4.0 12/21/16 12:00 Nasal Cannula 4.0 CPAP Lab Results: Results Past 24 Hours Test 12/21/16 11:25 12/21/16 16:14 12/21/16 20:18 12/22/16 05:23 Range/Units Bedside Glucose 154 152 144 70-90 mg/dl Prothrombin Time 12.8 9.0-12.0 SECONDS Prothromb Time International Ratio 1.2 0.9-1.1 Iron Level 16 35-150 mcg/dl Total Iron Binding Capacity 244 250-450 mcg/dl Transferrin 208 200-360 mg/dl Transferrin % Saturation 5 15-50 % Test 12/22/16 06:44 12/22/16 08:57 Range/Units Bedside Glucose 124 70-90 mg/dl
[2016-12-22 11:21] VITALS: BP 108/71; PULSE 89; TEMP 36.7; O2SAT 94
[2016-12-22 11:54] LABS: BUN/CREATININE RATIO 26.5 (10-20); CALCIUM 8.8 mg/dl (8.5-10.1); CREATININE 3.9 mg/dl (0.60-1.20); POTASSIUM 4.1 mmol/L (3.5-5.1)
[2016-12-22] MEDS: IRON SUCROSE INJ 200 MG in SODIUM CHLORIDE 0.9% 100ML 100 ML IV SCH (12:15)
--- NOTE | 2016-12-22 12:22 | Pharmacy Progress Note ---
Glycemic Control: Progress Nt Date of Service Dec 22, 2016. Scope Glycemic Pharmacist consulted by Dr King on 12/20/16 for glycemic control and to write orders per [facility] inpatient glycemic control protocol. Objective Accuchecks BSG (last 24hrs): Test 12/21/16 16:14 12/21/16 20:18 12/22/16 06:44 12/22/16 11:14 Bedside Glucose 152 mg/dl (70-90) 144 mg/dl (70-90) 124 mg/dl (70-90) Random Glucose 129 mg/dl (70-99) Test 12/22/16 11:27 Bedside Glucose 134 mg/dl (70-90) Laboratory Data (last 24hrs) Test 12/22/16 11:14 Anion Gap 10.0 mmol/L BUN/Creatinine Ratio 26.5 Blood Urea Nitrogen 103 mg/dl Creatinine 3.90 mg/dl Potassium Level 4.1 mmol/L Sodium Level 139 mmol/L HbA1c: Test 12/21/16 04:50 Hemoglobin A1c 8.1 % (4.5-5.6) H Recent Pertinent Medications Outpatient Anti-diabetic Regimen: * Lantus 20 units QAM * Novolog 3 units AC + scale Risk Factors for Insulin Resistance: * Infection * Home Prednisone 5 mg PO QAM * Diet Assessment & Plan ASSESSMENT: 12/20/16 * 61 yo diabetic F well known to our glycemic service, admitted today for CHF exacerbation * BSG on admission ~160 mg/dL * Per nurse, patient believes she did receive her Lantus this AM * Hold off on Lantus dosing for now * Initiate Lantus/Novolog per previous admissions * A1c current, reflective of good glycemic control as outpatient given age and comorbidities * ADA & AACE recommend a goal blood sugar range 140-180 mg/dl for the majority of critically ill & non-critically ill patients. However, more stringent targets may be selected in individual cases. Tighten goal range for better wound healing. 12/22/16 * Patient is currently receiving an average of 33 units of insulin per day * 12 units of basal insulin * 21 units of prandial/correctional insulin * BSGs ranging 129 - 154 over the past 24hrs * Risk factors for insulin resistance have remained constant over the past 24hrs * Steroid dosing unchanged (home regimen) * Anticipating current insulin regimen to be unchanged for the next 24 hours * Reassess in the AM PLAN FOR INPATIENT GLYCEMIC CONTROL: * Basal insulin with LANTUS 12 units SQ QAM * Correctional Insulin with NOVOLOG per scale ACHS or Q6hrs while NPO * Goal Range: Low 110 mg/dL - High 140 mg/dL * Correction Factor: 30 mg/dL/unit * Nutritional / Prandial insulin per carb ratio of 1 unit per 10 grams CHO consumed * A1c added to D/C instructions * Please note that the plan above was derived based on current level of insulin resistance and hospital stress. These recommendations are appropriate for inpatient admission only. Plan of care upon discharge will need to be reassessed to avoid potential outpatient hypo/hyperglycemia. Thank you.
[2016-12-22 14:53] VITALS: BP 128/65; PULSE 89; TEMP 36.6; O2SAT 92
[2016-12-22] MEDS: WARFARIN SOD 2.5 MG TAB PO SCH (16:47)
[2016-12-22] MEDS: DOBUTamine / D5W 500 MG IV PRN (17:00)
--- NOTE | 2016-12-22 17:36 | PROGRESS NOTE ---
DATE: 12/22/2016 CARDIOLOGY CONSULTATION FOLLOWUP NOTE The patient seen and examined. Chart, medications, telemetry reviewed. SUBJECTIVE: The patient notes little change overnight. Has diuresed slightly. Notes no fevers, chills or productive cough. Notes no chest pain. Continues to have abdominal edema and lower extremity edema, unchanged. OBJECTIVE: VITAL SIGNS: Heart rate is 94, blood pressure is 118/59. NECK: Thick. There is no jugular venous distention discerned. LUNGS: Reveal mildly diminished breath sounds but no rhonchi, rale or wheeze. CARDIOVASCULAR: Irregular. There is no S3 gallop. ABDOMEN: With large tense pannus. EXTREMITIES: Reveal 3+ lower extremity indurated edema. LABORATORY DATA: Pending. IMPRESSION: A 61-year-old female with profound right heart failure secondary to pickwickian syndrome, morbid obesity. PLAN: Continue low dose dobutamine and IV diuretics with albumin as per nephrology. We will follow patient in the hospital.
[2016-12-22 19:01] VITALS: BP 121/74; PULSE 75; TEMP 36.6; O2SAT 92
[2016-12-22 23:26] VITALS: BP 145/69; PULSE 84; TEMP 36.3; O2SAT 94
[2016-12-23] VITALS (8 sets, daily range): BP systolic 110–143; BP diastolic 48–92; PULSE 83–97; TEMP 36.3–36.7; O2SAT 91–96
[2016-12-23] MEDS: LEVOTHYROXINE 125 MCG TAB PO SCH (05:17)
[2016-12-23] MEDS: ALBUMIN 25% 50 ML with FUROSEMIDE INJ 80 MG IV SCH ×2 (05:18)
[2016-12-23] MEDS: HEPARIN SOD 5000 UNIT/0.5 ML CARP SQ SCH ×3 (05:18→21:19)
[2016-12-23 06:29] LABS: HEMATOCRIT 33.5 % (37-47); MEAN CELL VOLUME 77.5 fL (80-100); MEAN CORPUSCULAR HEMOGLOBIN 23.6 pg (25-34); MEAN CORPUSCULAR HGB CONC 30.4 g/dl (32-36); MEAN PLATELET VOLUME 9.5 fL (7.4-10.4); PLATELET COUNT 284 K/uL (130-400); RED BLOOD COUNT 4.32 M/uL (4.2-5.4); WHITE BLOOD COUNT 18.35 K/uL (4.8-10.8)
[2016-12-23 06:34] LABS: INR 1.3 (0.9-1.1); PROTHROMBIN TIME (PATIENT) 14.3 SECONDS (9.0-12.0)
[2016-12-23 07:04] LABS: CALCIUM 8.8 mg/dl (8.5-10.1); CREATININE 3.7 mg/dl (0.60-1.20); MAGNESIUM 2.6 mg/dl (1.8-2.4); PHOSPHORUS 5.5 mg/dl (2.5-4.9); POTASSIUM 3.8 mmol/L (3.5-5.1)
[2016-12-23] MEDS: GABAPENTIN 400 MG CAP PO SCH ×2 (08:30→19:36)
[2016-12-23] MEDS: CALCITRIOL 0.25 MCG CAP PO SCH (08:30)
[2016-12-23] MEDS: CEROVITE ADV FORMULA TAB PO SCH (08:30)
[2016-12-23] MEDS: SERTRALINE HCL 100 MG TAB PO SCH (08:30)
[2016-12-23] MEDS: ATORVASTATIN 40 MG TAB PO SCH (08:31)
[2016-12-23] MEDS: CYANOCOBALAMIN 500 MCG TAB (VIT B-12) PO SCH (08:31)
[2016-12-23] MEDS: POTASSIUM CHLORIDE 20 MEQ TABCR PO SCH (08:31)
[2016-12-23] MEDS: ASPIRIN 81 MG ECTAB PO SCH (08:31)
[2016-12-23] MEDS: PANTOprazole SOD 40 MG TAB PO SCH (08:32)
[2016-12-23] MEDS: ASCORBIC ACID 500 MG TAB PO SCH ×2 (08:32→19:37)
[2016-12-23] MEDS: CHOLECALCIFEROL 1000 INTER.UNIT TAB PO SCH (08:32)
[2016-12-23] MEDS: TIOTROPIUM BROMIDE 5 PUFF/90 MCG INH INH SCH (08:32)
--- NOTE | 2016-12-23 08:32 | Nephrology Progress Note ---
Nephrology Progress Note Date of Service: Dec 23, 2016. Subjective c/o ongoing thirst; no c/o abd pain. no n/v; uop picking up; tolerating dobutamine so far Objective Date Time Temp Pulse Resp B/P Pulse Ox O2 Delivery O2 Flow Rate FiO2 12/23/16 08:02 36.3 93 20 143/64 92 BiPAP 4.0 12/23/16 04:12 Nasal Cannula 4.0 CPAP 12/23/16 03:37 36.3 83 18 116/48 92 CPAP 12/23/16 00:30 84 96 4.0 12/23/16 00:00 Nasal Cannula 4.0 CPAP 12/22/16 23:26 36.3 84 19 145/69 94 Nasal Cannula 4.0 12/22/16 20:00 Nasal Cannula 4.0 CPAP 12/22/16 19:01 36.6 75 25 121/74 92 Nasal Cannula 4.0 12/22/16 16:00 Nasal Cannula 4.0 CPAP 12/22/16 14:53 36.6 89 15 128/65 92 Nasal Cannula 4.0 12/22/16 12:00 Nasal Cannula 4.0 CPAP 12/22/16 11:21 36.7 89 17 108/71 94 Nasal Cannula 4.0 Physical Exam: GENERAL: Awake, alert, oriented x3, morbidly obese, in bed on 4L 02nc EYES: No scleral icterus. EARS, NOSE, THROAT: Moist mucous membranes. LUNGS: Clear to auscultation w/ diminished air entry. CARDIAC: Irregular in 100s and distant ABDOMEN: Very large pannus with a wound VAC on the left from previous surgery. delatorre + EXTREMITIES: Bilateral erythematous +2 indurated edema. NEUROLOGICALLY: laboy/fluent speech, limited insight Current Inpatient Medications Medications (Trade) Dose Ordered Sig/Tyrone Route Start Time Stop Time Status Last Admin Dose Admin Heparin Sodium (Porcine) (Heparin Sq 5000 Unit/0.5ml) 5,000 unit Q8 SQ 12/20/16 22:00 01/19/17 21:59 12/23/16 05:18 5,000 UNIT Glucose (Glucose 40% Gel) 15-30 GRAMS 15 GRAMS... UD PRN PO 12/20/16 12:15 01/19/17 12:14 Glucose (Glucose Chew Tab) 4-8 Tablets 4 Tabl... UD PRN PO 12/20/16 12:15 01/19/17 12:14 Dextrose (Dextrose 50% 50ML Syringe) 25-50ML OF 50% DW IV FOR... UD PRN IV 12/20/16 12:15 01/19/17 12:14 Glucagon (Glucagon Inj) 1 mg UD PRN SQ 12/20/16 12:15 01/19/17 12:14 Miscellaneous Information (Consult Glycemic Management Pharmacy) 1 ea UD PRN N/A 12/20/16 12:16 01/19/17 12:15 Insulin Glargine (Lantus Solostar Pen) 12 unit QAM SC 12/21/16 09:00 01/20/17 08:59 12/22/16 09:07 12 UNIT Insulin Aspart SLIDING SCALE If C... ACHS SC 12/20/16 12:30 01/19/17 12:29 12/22/16 21:28 4 UNITS Furosemide/ Albumin Human (Lasix Inj/ Albumin 25%) 58 ml @ 54 mls/hr Q12H IV 12/20/16 18:00 12/23/16 17:59 12/23/16 05:18 54 MLS/HR Albuterol (Ventolin Hfa Inhaler) 2 puffs QID PRN INH 12/20/16 14:15 01/19/17 14:14 12/22/16 09:01 2 PUFFS Ascorbic Acid (Vitamin C Tab) 500 mg BID PO 12/20/16 21:00 01/19/17 20:59 12/22/16 19:36 500 MG Aspirin (Ecotrin Tab) 81 mg DAILY PO 12/21/16 09:00 01/20/17 08:59 12/22/16 08:58 81 MG Atorvastatin Calcium (Lipitor Tab) 40 mg DAILY PO 12/21/16 09:00 01/20/17 08:59 12/22/16 08:58 40 MG Calcitriol (Rocaltrol Cap) 0.25 mcg MoWeFr@0900 PO 12/23/16 09:00 01/22/17 08:59 Cholecalciferol (Vitamin D Tab) 2,000 inter.unit DAILY PO 12/21/16 09:00 01/20/17 08:59 12/22/16 09:01 2,000 INTER.UNIT Cyanocobalamin (Vitamin B-12 Tab) 1,000 mcg DAILY PO 12/21/16 09:00 01/20/17 08:59 12/22/16 08:58 1,000 MCG Gabapentin (Neurontin Cap) 400 mg BID PO 12/20/16 21:00 01/19/17 20:59 12/22/16 19:37 400 MG Hydroxyzine HCl (Vistaril Tab) 25 mg Q6H PRN PO 12/20/16 14:15 01/19/17 14:14 12/22/16 08:59 25 MG Levothyroxine Sodium (Synthroid Tab) 125 mcg DAILYBB PO 12/21/16 06:00 01/20/17 05:59 12/23/16 05:17 125 MCG Lorazepam (Ativan Tab) 0.5 mg DAILY PRN PO 12/20/16 14:15 01/19/17 14:14 12/20/16 15:39 0.5 MG Metoprolol Succinate (Toprol Xl Tab) 50 mg DAILY PO 12/21/16 09:00 01/20/17 08:59 12/22/16 08:59 50 MG Miconazole Nitrate (Desenex Powder) 1 appln MoWeFr@0900 EXT 12/23/16 09:00 01/22/17 08:59 Multivitamins/ Minerals (Multivitamin W/ Minerals Tab) 1 tab DAILY PO 12/21/16 09:00 01/20/17 08:59 12/22/16 08:59 1 TAB Potassium Chloride (Klor-Con Tab) 20 meq DAILY PO 12/21/16 09:00 01/20/17 08:59 12/22/16 09:03 20 MEQ Prednisone (PredniSONE TAB) 5 mg DAILY PO 12/21/16 09:00 01/20/17 08:59 12/22/16 09:01 5 MG Sertraline HCl (Zoloft Tab) 150 mg DAILY PO 12/21/16 09:00 01/20/17 08:59 12/22/16 09:02 150 MG Tiotropium [place] (Spiriva Handihaler Inhaler) 1 puff DAILY INH 12/21/16 09:00 01/20/17 08:59 12/22/16 08:58 1 PUFF Warfarin Sodium (Coumadin Tab) 2.5 mg DAILY@16 PO 12/20/16 16:00 01/19/17 15:59 12/22/16 16:47 2.5 MG Acetaminophen/ Hydrocodone Bitart ([place] 5/325 Tab) one to two tabs as nee... Q6H PRN PO 12/20/16 14:15 01/03/17 14:14 12/22/16 08:55 2 TAB Pantoprazole Sodium 40 mg 40 mg QAM PO 12/21/16 09:00 01/20/17 08:59 12/22/16 09:02 40 MG Dobutamine HCl (DOBUTamine / D5W) 250 ml @ 0 mls/hr Q0M PRN IV 12/21/16 09:30 01/20/17 09:29 12/22/16 17:00 8.3 MLS/HR Heparin Sodium (Porcine) 5 ml 5 ml PRN PRN FLUSH 12/22/16 00:45 01/21/17 00:44 Iron Sucrose/ Sodium Chloride (Venofer Inj/Nss 100ml) 110 ml @ 420 mls/hr DAILY@1000 IV 12/22/16 10:00 12/26/16 10:16 12/22/16 12:15 420 MLS/HR Last 24 Hours Test 12/22/16 11:14 12/22/16 11:27 12/22/16 16:06 12/22/16 20:20 Sodium Level 139 mmol/L Potassium Level 4.1 mmol/L Chloride Level 99 mmol/L Carbon Dioxide Level 30 mmol/L Anion Gap 10.0 mmol/L Blood Urea Nitrogen 103 mg/dl Creatinine 3.90 mg/dl Est Creatinine Clear Calc Drug Dose 20.8 ml/min Estimated GFR () 13.5 Estimated GFR (Non- 11.6 BUN/Creatinine Ratio 26.5 Random Glucose 129 mg/dl Calcium Level 8.8 mg/dl Bedside Glucose 134 mg/dl 153 mg/dl 246 mg/dl Test 12/23/16 05:35 12/23/16 06:23 White Blood Count 18.35 K/uL Red Blood Count 4.32 M/uL Hemoglobin 10.2 g/dL Hematocrit 33.5 % Mean Corpuscular Volume 77.5 fL Mean Corpuscular Hemoglobin 23.6 pg Mean Corpuscular Hemoglobin Concent 30.4 g/dl RDW Standard Deviation 50.1 fL RDW Coefficient of Variation 17.7 % Platelet Count 284 K/uL Mean Platelet Volume 9.5 fL Prothrombin Time 14.3 SECONDS Prothromb Time International Ratio 1.3 Sodium Level 141 mmol/L Potassium Level 3.8 mmol/L Chloride Level 101 mmol/L Carbon Dioxide Level 28 mmol/L Anion Gap 12.0 mmol/L Blood Urea Nitrogen 100 mg/dl Creatinine 3.70 mg/dl Est Creatinine Clear Calc Drug Dose 21.9 ml/min Estimated GFR () 14.4 Estimated GFR (Non- 12.4 BUN/Creatinine Ratio 27.0 Random Glucose 84 mg/dl Calcium Level 8.8 mg/dl Phosphorus Level 5.5 mg/dl Magnesium Level 2.6 mg/dl Bedside Glucose 112 mg/dl Assessment & Plan 61-year-old female with chronic right heart failure secondary to obesity hypoventilation syndrome, chronic a fib, chronic pannus infections w/ wound vac , chronic volume overload, CKD 4 admitted with FRED on CKD and symptomatic volume overload. 1. Acute kidney injury on chronic kidney disease stage IV with uremic symptoms including decreased appetite, pruritus, fatigue, volume overload. >>cont albumin with Lasix today (60 mg IV tid) w/ dobutamine to help mobilize the third spaced fluid. Considering whether she would do dialysis if this does not work; no emergent indication; cont fluid limit 1.2L daily though she is not hitting this usually; no need for renal diet yet. would not consult vascular yet for tdc though I believe she will need it 2. Hypermagnesemia, magnesium supplements stopped; recheck levels today still high and would not resume 3. Anemia of chronic kidney disease. pt has low iron stores >> getting course of venofer and once done / as needed consider Procrit Appreciate consult.
[2016-12-23] MEDS: MICONAZOLE NITRATE POWDER 43 GM EXT SCH (08:36)
[2016-12-23] MEDS: HYDROCODONE/ACETAMOPHEN 5/325MG TAB PO PRN ×2 (08:51→19:37)
[2016-12-23] MEDS: INSULIN GLARGINE SOLOSTAR 100 UNITS/ML 3 ML PEN SC SCH (09:00)
[2016-12-23] MEDS: INSULIN ASPART 100 UNITS/ML 3 ML PEN SC SCH ×4 (09:00→21:18)
[2016-12-23] MEDS: METOPROLOL SUCC 50MG EXT REL TAB PO SCH (09:45)
[2016-12-23] MEDS: IRON SUCROSE INJ 200 MG in SODIUM CHLORIDE 0.9% 100ML 100 ML IV SCH (10:30)
--- NOTE | 2016-12-23 11:03 | Cardiology Follow-Up ---
Subjective General Date of Service: Dec 23, 2016. Chief Complaint: SOB; CKD; CHF Pt evaluation today including: conversation w/ patient, physical exam, chart review, lab review, review of studies, review of inpatient medication list History of Present Illness Patient feeling oK. SOB mildly improved from admission. No chest pain. No dizziness, syncope or near syncope. cough improving. She offers no acute complaints currently. Allergies Coded Allergies: Bacitracin (Verified Allergy, Intermediate, RASH,ITCH, 08/27/16) Celecoxib (Verified Allergy, Intermediate, RASH TO SULFA DRUGS, 08/27/16) Neomycin (Verified Allergy, Intermediate, RASH,ITCH, 08/27/16) Polymyxin B (Verified Allergy, Intermediate, RASH,ITCH, 08/27/16) Sulfa Antibiotics (Verified Allergy, Intermediate, RASH,HAS TAKEN GLIPIZIDE W/O REACTION, 08/27/16) Tigecycline (Verified Adverse Reaction, Severe, MILD PANCREATITIS, ) 61 yo F placed on IV tigecycline for wound infection, after 5-6 days developed decreased appetite, had nonspecific abdominal pain from admission and was refusing to lie back for daily abd assessments because of pain in other areas of abdomen. Decreased appetite persisted, also in context of worsening depression and stated apathy, WBC continued to increase, CT chest revealed n/s changes possibly consistent with mild pancreatitis, lipase drawn and elevated, other causes ruled out, clinical pancreatitis on exam. Diruretics/albumin stopped to avoid further rehydration, tigecycline discontinued, continuing supportive care. Codeine (Verified Adverse Reaction, Intermediate, GI UPSET, 08/27/16) Social History Smoking Status: Former Smoker (lifelong) Hx Tobacco Use In Past Year?: No Hx Alcohol Use - Type And Amou: No Hx Substance Use - Type And Am: No Problem List Medical Problems: (1) FRED (acute kidney injury) Status: Acute (2) CHF (congestive heart failure) Status: Acute (3) Congestive heart failure Status: Acute (4) Congestive heart failure Status: Acute (5) Congestive heart failure Status: Acute (6) Hypoxia Status: Acute (7) Leukocytosis Status: Acute (8) Leukocytosis Status: Acute (9) Low grade fever Status: Acute (10) Low grade fever Status: Acute (11) Rapid atrial fibrillation Status: Acute (12) Rapid atrial fibrillation Status: Acute (13) Renal insufficiency Status: Acute (14) Sepsis Status: Acute (15) Sepsis associated hypotension Status: Acute (16) Severe sepsis with acute organ dysfunction Status: Acute (17) Shortness of breath Status: Acute Review of Systems Respiratory: + dyspnea on exertion, No cough, No dyspnea at rest, No wheezing Cardiac: + edema, No PND, No chest pain, No orthopnea, No palpitations Physical Exam Vital Signs Last Vital Signs Documentation Date Time Temp Pulse Resp B/P Pulse Ox O2 Delivery O2 Flow Rate FiO2 12/23/16 08:02 36.3 93 20 143/64 92 BiPAP 4.0 Physical Exam Constitutional: General Apperance: obese Level of Distress: NAD, acutely ill, chronically ill Psychiatric: Mental Status: active & alert Orientation: to time, to place, to person Head: normocephalic Eyes: Pupils: PERRLA Neck: supple Lungs: Auscultation: deminished air movement, decreased breath sounds Cardiovascular: Heart Auscultation: II/ LINDSAY, irregular rate rhythm Abdomen: Inspection & Palpation: distended (with edema), pertinent finding Extremities: edema (2+ pitting b/l, hard indurated with erythema) Assessment and Plan Assessment and Plan Assessment: 1. acute on chronic right sided HF 2. acute on chronic renal failure 3. Persistent atrial fibrillation on coumadin. 4. Hypertension 5. Obesity, pickwickian, respiratory failure PLAN: Continue IV diuresis with furosemide, albumin and dobutamine gtt Renal function mildly improved this AM. Patient contemplating dialysis if no improvement with current medical therapies. Fluid restrictions encouraged. Continue all other therapies including ASA, metoprolol, atorvastatin. PT/INR has been subtherapeutic since last discharge on low dose Coumadin. Increase to 5 mg daily and monitor closely. SQ heparin until therapeutic for DVT proph. Case discussed with Dr. Santa. Will follow. Patient was seen and examined, assessment as above. Renal function without further decline, continuing diuresis. Alex Santa MD Laboratory Results Last 24 Hours Test 12/22/16 11:14 12/22/16 11:27 12/22/16 16:06 12/22/16 20:20 Sodium Level 139 mmol/L Potassium Level 4.1 mmol/L Chloride Level 99 mmol/L Carbon Dioxide Level 30 mmol/L Anion Gap 10.0 mmol/L Blood Urea Nitrogen 103 mg/dl Creatinine 3.90 mg/dl Est Creatinine Clear Calc Drug Dose 20.8 ml/min Estimated GFR () 13.5 Estimated GFR (Non- 11.6 BUN/Creatinine Ratio 26.5 Random Glucose 129 mg/dl Calcium Level 8.8 mg/dl Bedside Glucose 134 mg/dl 153 mg/dl 246 mg/dl Test 12/23/16 05:35 12/23/16 06:23 White Blood Count 18.35 K/uL Red Blood Count 4.32 M/uL Hemoglobin 10.2 g/dL Hematocrit 33.5 % Mean Corpuscular Volume 77.5 fL Mean Corpuscular Hemoglobin 23.6 pg Mean Corpuscular Hemoglobin Concent 30.4 g/dl RDW Standard Deviation 50.1 fL RDW Coefficient of Variation 17.7 % Platelet Count 284 K/uL Mean Platelet Volume 9.5 fL Prothrombin Time 14.3 SECONDS Prothromb Time International Ratio 1.3 Sodium Level 141 mmol/L Potassium Level 3.8 mmol/L Chloride Level 101 mmol/L Carbon Dioxide Level 28 mmol/L Anion Gap 12.0 mmol/L Blood Urea Nitrogen 100 mg/dl Creatinine 3.70 mg/dl Est Creatinine Clear Calc Drug Dose 21.9 ml/min Estimated GFR () 14.4 Estimated GFR (Non- 12.4 BUN/Creatinine Ratio 27.0 Random Glucose 84 mg/dl Calcium Level 8.8 mg/dl Phosphorus Level 5.5 mg/dl Magnesium Level 2.6 mg/dl Bedside Glucose 112 mg/dl
--- NOTE | 2016-12-23 11:19 | Progress Note ---
Internal Med Progress Note Date of Service: Dec 23, 2016. Provider Documentation: SUBJECTIVE: Patient says she feels the same. Has chronic SOB, no worsening, but overall abdominal distension No nausea, vomiting, chest pain, fever, chills. Tele- Atrial Fibrillation with HR 90-100s OBJECTIVE : Vital Signs-as noted below Exam: GEN: morbidly obese, in no acute distress, alert , awake, oriented x 3 CARDIO: irreg, S1/2 heard without murmurs LUNGS: AEBE decreased, No wheezing ABD: soft, non tender, edematous with large pannus - difficult exam, +BS EXTREMITY: Chronic Erythema bilateral lower extremities, Chronic swelling in LEs but no pitting edema, Rt forearm with minor skin tears and wound over them. PICC in place in LUE with no surrounding erythema. SKIN: Wound vac to Lt glutes/posterior thigh area, no surrounding erythema. Wound, chronic-appearing to Rt buttock similar in size to L sided wound Lab data as noted below. ASSESSMENT & PLAN: 61 year old F with acute R heart failure exacerbation and FRED: ACUTE ON CHRONIC CHF, RIGHT HEART FAILURE : Not much improvement -Presented with weight gain of 13 lbs, SOB, increase in abdominal girth -IV Lasix 60 mg TID / IV Albumin per nephrology to help mobilize the third space fluid -IV Dobutamine drip started on 12/21/16 to augment cardiac output and help mobilizing fluid from third space per cardiology -If worsens, would consider dialysis though patient hesitant at this time, but most likely will eventually need it. -Work up=- Trop- 0.025-->0.107, Echo- EF 65-70%, Moderate LVH, RA- mild to moderately dilated, Rt Ventricular systolic pressure - severely elevated at >60 mm hg -Appreciate cardiology/Nephrology inputs FRED ON CKD-IV Baseline around 2, now 3.7 -On IV Lasix/Albumin as above -May require dialysis if doesn't improve per nephrology -Appreciate nephrology inputs BILATERAL HIP ULCERATIONS (CHRONICALLY INFECTED-KLEBSIELLA) -Was on IV antibiotics - long-term due to multi drug resistant klebsiella infection, which was discontinued this admission by ID. Has required multiple times dosage adjustments due to elevated creatinine. Had B /L wound vacs now unilateral wound vacs -No acute issues this admission -Has a left sided wound vac for left hip wound -Appreciate ID inputs -Continue with wound care ANEMIA, LIKELY CHRONIC KIDNEY DISEASE /IRON DEFICIENCY -Iron studies indicative of Iron deficiency Anemia -Hb stable -No signs of active bleeding -IV Venofer started on 12/22/16--> to be continued and later will have to be on procrit. ATRIAL FIBRILLATION-Stable -Continue with Metoprolol, Coumadin -INR monitoring CHRONIC HYPOXIC RESPIRATORY FAILURE WITH HX OF CHRONIC COPD -Stable S/P MECHANICAL FALL WITH RIGHT KNEE SPRAIN -No indication for x ray as symptoms better, normal ROM, No effusion on exam DMII- Continue with ISS, Lantus -Ate 2 donuts (brought by family). Counseling done. DEPRESSION- Continue with zoloft HYPOTHYROIDISM -Continue with synthroid MORBID OBESITY DVT prophy: heparin SQ till INR is therapeutic FULL CODE DISPOSITION Continue with Tele monitoring Discussed with cardiology, Dr Santa Vital Signs: Date Time Temp Pulse Resp B/P Pulse Ox O2 Delivery O2 Flow Rate FiO2 12/23/16 08:02 36.3 93 20 143/64 92 BiPAP 4.0 12/23/16 04:12 Nasal Cannula 4.0 CPAP 12/23/16 03:37 36.3 83 18 116/48 92 CPAP 12/23/16 00:30 84 96 4.0 12/23/16 00:00 Nasal Cannula 4.0 CPAP 12/22/16 23:26 36.3 84 19 145/69 94 Nasal Cannula 4.0 12/22/16 20:00 Nasal Cannula 4.0 CPAP 12/22/16 19:01 36.6 75 25 121/74 92 Nasal Cannula 4.0 12/22/16 16:00 Nasal Cannula 4.0 CPAP 12/22/16 14:53 36.6 89 15 128/65 92 Nasal Cannula 4.0 12/22/16 12:00 Nasal Cannula 4.0 CPAP 12/22/16 11:21 36.7 89 17 108/71 94 Nasal Cannula 4.0 Lab Results: Results Past 24 Hours Test 12/22/16 11:27 12/22/16 16:06 12/22/16 20:20 12/23/16 05:35 Range/Units Bedside Glucose 134 153 246 70-90 mg/dl White Blood Count 18.35 4.8-10.8 K/uL Red Blood Count 4.32 4.2-5.4 M/uL Hemoglobin 10.2 12.0-16.0 g/dL Hematocrit 33.5 37-47 % Mean Corpuscular Volume 77.5 80-100 fL Mean Corpuscular Hemoglobin 23.6 25-34 pg Mean Corpuscular Hemoglobin Concent 30.4 32-36 g/dl RDW Standard Deviation 50.1 36.4-46.3 fL RDW Coefficient of Variation 17.7 11.5-14.5 % Platelet Count 284 130-400 K/uL Mean Platelet Volume 9.5 7.4-10.4 fL Prothrombin Time 14.3 9.0-12.0 SECONDS Prothromb Time International Ratio 1.3 0.9-1.1 Sodium Level 141 136-145 mmol/L Potassium Level 3.8 3.5-5.1 mmol/L Chloride Level 101 98-107 mmol/L Carbon Dioxide Level 28 21-32 mmol/L Anion Gap 12.0 3-11 mmol/L Blood Urea Nitrogen 100 7-18 mg/dl Creatinine 3.70 0.60-1.20 mg/dl Est Creatinine Clear Calc Drug Dose 21.9 ml/min Estimated GFR () 14.4 Estimated GFR (Non- 12.4 BUN/Creatinine Ratio 27.0 10-20 Random Glucose 84 70-99 mg/dl Calcium Level 8.8 8.5-10.1 mg/dl Phosphorus Level 5.5 2.5-4.9 mg/dl Magnesium Level 2.6 1.8-2.4 mg/dl Test 12/23/16 06:23 Range/Units Bedside Glucose 112 70-90 mg/dl
--- NOTE | 2016-12-23 13:40 | Pharmacy Progress Note ---
Glycemic Control: Progress Nt Date of Service Dec 23, 2016. Scope Glycemic Pharmacist consulted by Dr King on 12/20 for glycemic control and to write orders per [facility] inpatient glycemic control protocol. Objective Accuchecks BSG (last 24hrs): Test 12/22/16 16:06 12/22/16 20:20 12/23/16 05:35 12/23/16 06:23 Bedside Glucose 153 mg/dl (70-90) 246 mg/dl (70-90) 112 mg/dl (70-90) Random Glucose 84 mg/dl (70-99) Test 12/23/16 11:35 Bedside Glucose 110 mg/dl (70-90) Laboratory Data (last 24hrs) Test 12/23/16 05:35 Anion Gap 12.0 mmol/L BUN/Creatinine Ratio 27.0 Blood Urea Nitrogen 100 mg/dl Creatinine 3.70 mg/dl Potassium Level 3.8 mmol/L Sodium Level 141 mmol/L White Blood Count 18.35 K/uL HbA1c: Test 12/21/16 04:50 Hemoglobin A1c 8.1 % (4.5-5.6) H Recent Pertinent Medications Outpatient Anti-diabetic Regimen: * Lantus 20 units QAM * Novolog 3 units AC + scale The patient is currently receiving: * Basal insulin: Lantus 12 units every 24 hours * Correctional Insulin: Novolog Correction per scale ACHS Goal Range: Low 110 mg/dL - High 140 mg/dL Correction Factor: 30 mg/dL/unit * Prandial insulin: Per carb ratio of 1 unit per 10 grams CHO consumed Risk Factors for Insulin Resistance: * Steroids: chronic prednisone 5 mg qAM * Pressors: dobutamine - not being titrated * Diet: type 2 diabetes/ low sodium - CHO consumption lower today Assessment & Plan ASSESSMENT: From 12/22/16 note: * Patient is currently receiving an average of 33 units of insulin per day * 12 units of basal insulin * 21 units of prandial/correctional insulin * BSGs ranging 129 - 154 over the past 24hrs * Risk factors for insulin resistance have remained constant over the past 24hrs * Steroid dosing unchanged (home regimen) * Anticipating current insulin regimen to be unchanged for the next 24 hours * Reassess in the AM 12/23/16 * Ms. Blevins rec'd 35 units of insulin yesterday w/ BSGs ranging from 84-246 mg/dL * BSG dropped significantly overnight (246 -> 84) which is most likely a result of the correctional insulin given as fasting BSGs have been good on current basal dose * Will plan to loosen CF to prevent hypoglycemia * In addition, noted that patient apparently had donuts yesterday that were brought in by family members PLAN FOR INPATIENT GLYCEMIC CONTROL: * Continue Lantus 12 units qAM * Continue Novolog ACHS * Goal 110-140 mg/dL * LOOSEN CF to 40 mg/dL/unit * CR 1 unit per 10 gm CHO consumed * Please note that the plan above was derived based on current level of insulin resistance and hospital stress. These recommendations are appropriate for inpatient admission only. Plan of care upon discharge will need to be reassessed to avoid potential outpatient hypo/hyperglycemia. Thank you.
[2016-12-23] MEDS ORDERED: WARFARIN SOD 5 MG TAB PO SCH (16:00)
[2016-12-23] MEDS: WARFARIN SOD 5 MG TAB PO SCH (17:45)
[2016-12-24] VITALS (7 sets, daily range): BP systolic 101–130; BP diastolic 38–67; PULSE 79–101; TEMP 36.3–36.5; O2SAT 91–96
[2016-12-24] MEDS: DOBUTamine / D5W 500 MG IV PRN (00:31)
[2016-12-24 06:00] LABS: HEMATOCRIT 32.8 % (37-47); MEAN CELL VOLUME 76.3 fL (80-100); MEAN CORPUSCULAR HEMOGLOBIN 22.8 pg (25-34); MEAN CORPUSCULAR HGB CONC 29.9 g/dl (32-36); MEAN PLATELET VOLUME 8.6 fL (7.4-10.4); PLATELET COUNT 247 K/uL (130-400); WHITE BLOOD COUNT 12.94 K/uL (4.8-10.8)
[2016-12-24] MEDS: HEPARIN SOD 5000 UNIT/0.5 ML CARP SQ SCH ×3 (06:02→21:24)
[2016-12-24] MEDS: LEVOTHYROXINE 125 MCG TAB PO SCH (06:02)
[2016-12-24 06:10] LABS: INR 1.2 (0.9-1.1); PROTHROMBIN TIME (PATIENT) 13.4 SECONDS (9.0-12.0)
[2016-12-24] MEDS: HYDROCODONE/ACETAMOPHEN 5/325MG TAB PO PRN ×2 (07:43→17:05)
[2016-12-24] MEDS: TIOTROPIUM BROMIDE 5 PUFF/90 MCG INH INH SCH (07:43)
[2016-12-24] MEDS: SERTRALINE HCL 100 MG TAB PO SCH (07:44)
[2016-12-24] MEDS: ATORVASTATIN 40 MG TAB PO SCH (07:44)
[2016-12-24] MEDS: METOPROLOL SUCC 50MG EXT REL TAB PO SCH (07:44)
[2016-12-24] MEDS: CYANOCOBALAMIN 500 MCG TAB (VIT B-12) PO SCH (07:44)
[2016-12-24] MEDS: CEROVITE ADV FORMULA TAB PO SCH (07:44)
[2016-12-24] MEDS: ASPIRIN 81 MG ECTAB PO SCH (07:44)
[2016-12-24] MEDS: PANTOprazole SOD 40 MG TAB PO SCH (07:45)
[2016-12-24] MEDS: POTASSIUM CHLORIDE 20 MEQ TABCR PO SCH (07:45)
[2016-12-24] MEDS: GABAPENTIN 400 MG CAP PO SCH ×2 (07:45→20:02)
[2016-12-24] MEDS: ASCORBIC ACID 500 MG TAB PO SCH ×2 (07:45→20:03)
[2016-12-24] MEDS: CHOLECALCIFEROL 1000 INTER.UNIT TAB PO SCH (07:45)
[2016-12-24] MEDS: INSULIN ASPART 100 UNITS/ML 3 ML PEN SC SCH ×4 (07:55→21:24)
[2016-12-24] MEDS: INSULIN GLARGINE SOLOSTAR 100 UNITS/ML 3 ML PEN SC SCH (07:55)
[2016-12-24 08:05] LABS: BUN/CREATININE RATIO 29.7 (10-20); CALCIUM 8.3 mg/dl (8.5-10.1); CREATININE 3.3 mg/dl (0.60-1.20); POTASSIUM 3.7 mmol/L (3.5-5.1)
[2016-12-24] MEDS ORDERED: INSULIN GLARGINE SOLOSTAR 100 UNITS/ML 3 ML PEN SC SCH (09:00)
--- NOTE | 2016-12-24 10:06 | Nephrology Progress Note ---
Nephrology Progress Note Date of Service: Dec 24, 2016. Subjective c/o ongoing thirst and ready for BM (no constipation); no c/o abd pain. no n/v ; uop picking up but barely negative; tolerating dobutamine so far Objective Date Time Temp Pulse Resp B/P Pulse Ox O2 Delivery O2 Flow Rate FiO2 12/24/16 08:00 Nasal Cannula 4.0 12/24/16 07:44 36.3 101 26 106/50 93 Nasal Cannula 4.0 101 12/24/16 04:00 Nasal Cannula 4.0 12/24/16 03:55 36.4 89 18 119/57 91 CPAP 12/24/16 02:05 83 96 4.0 12/23/16 23:59 Nasal Cannula 4.0 12/23/16 23:31 36.4 89 22 121/75 94 Nasal Cannula 4.0 12/23/16 20:50 36.7 97 21 110/92 93 Nasal Cannula 4.0 12/23/16 20:00 95 Nasal Cannula 4.0 12/23/16 16:00 Nasal Cannula 4.0 12/23/16 15:16 36.4 91 22 121/57 91 Nasal Cannula 4.0 12/23/16 12:00 Nasal Cannula 4.0 12/23/16 11:51 36.5 94 19 130/59 94 Nasal Cannula 4.0 Physical Exam: GENERAL: Awake, alert, oriented x3, morbidly obese, sitting on side of bed on 4L 02nc EYES: No scleral icterus. EARS, NOSE, THROAT: Moist mucous membranes. LUNGS: Clear to auscultation w/ diminished air entry and bases. CARDIAC: regularly spaced beats in 90s and distant ABDOMEN: Very large pannus with a wound VAC on the left from previous surgery. delatorre + EXTREMITIES: Bilateral erythematous ++2 indurated edema. NEUROLOGICALLY: laboy/fluent speech, limited insight Current Inpatient Medications Medications (Trade) Dose Ordered Sig/Tyrone Route Start Time Stop Time Status Last Admin Dose Admin Heparin Sodium (Porcine) (Heparin Sq 5000 Unit/0.5ml) 5,000 unit Q8 SQ 12/20/16 22:00 01/19/17 21:59 12/24/16 06:02 5,000 UNIT Glucose (Glucose 40% Gel) 15-30 GRAMS 15 GRAMS... UD PRN PO 12/20/16 12:15 01/19/17 12:14 Glucose (Glucose Chew Tab) 4-8 Tablets 4 Tabl... UD PRN PO 12/20/16 12:15 01/19/17 12:14 Dextrose (Dextrose 50% 50ML Syringe) 25-50ML OF 50% DW IV FOR... UD PRN IV 12/20/16 12:15 01/19/17 12:14 Glucagon (Glucagon Inj) 1 mg UD PRN SQ 12/20/16 12:15 01/19/17 12:14 Miscellaneous Information (Consult Glycemic Management Pharmacy) 1 ea UD PRN N/A 12/20/16 12:16 01/19/17 12:15 Insulin Aspart (novoLOG ASPART) SLIDING SCALE If C... ACHS SC 12/20/16 12:30 01/19/17 12:29 12/24/16 07:55 5 UNITS Albuterol (Ventolin Hfa Inhaler) 2 puffs QID PRN INH 12/20/16 14:15 01/19/17 14:14 12/22/16 09:01 2 PUFFS Ascorbic Acid (Vitamin C Tab) 500 mg BID PO 12/20/16 21:00 01/19/17 20:59 12/24/16 07:45 500 MG Aspirin (Ecotrin Tab) 81 mg DAILY PO 12/21/16 09:00 01/20/17 08:59 12/24/16 07:44 81 MG Atorvastatin Calcium (Lipitor Tab) 40 mg DAILY PO 12/21/16 09:00 01/20/17 08:59 12/24/16 07:44 40 MG Calcitriol (Rocaltrol Cap) 0.25 mcg MoWeFr@0900 PO 12/23/16 09:00 01/22/17 08:59 12/23/16 08:30 0.25 MCG Cholecalciferol (Vitamin D Tab) 2,000 inter.unit DAILY PO 12/21/16 09:00 01/20/17 08:59 12/24/16 07:45 2,000 INTER.UNIT Cyanocobalamin (Vitamin B-12 Tab) 1,000 mcg DAILY PO 12/21/16 09:00 01/20/17 08:59 12/24/16 07:44 1,000 MCG Gabapentin (Neurontin Cap) 400 mg BID PO 12/20/16 21:00 01/19/17 20:59 12/24/16 07:45 400 MG Hydroxyzine HCl (Vistaril Tab) 25 mg Q6H PRN PO 12/20/16 14:15 01/19/17 14:14 12/22/16 08:59 25 MG Levothyroxine Sodium (Synthroid Tab) 125 mcg DAILYBB PO 12/21/16 06:00 01/20/17 05:59 12/24/16 06:02 125 MCG Lorazepam (Ativan Tab) 0.5 mg DAILY PRN PO 12/20/16 14:15 01/19/17 14:14 12/20/16 15:39 0.5 MG Metoprolol Succinate (Toprol Xl Tab) 50 mg DAILY PO 12/21/16 09:00 01/20/17 08:59 12/24/16 07:44 50 MG Miconazole Nitrate (Desenex Powder) 1 appln MoWeFr@0900 EXT 12/23/16 09:00 01/22/17 08:59 12/23/16 08:36 1 APPLN Multivitamins/ Minerals (Multivitamin W/ Minerals Tab) 1 tab DAILY PO 12/21/16 09:00 01/20/17 08:59 12/24/16 07:44 1 TAB Potassium Chloride (Klor-Con Tab) 20 meq DAILY PO 12/21/16 09:00 01/20/17 08:59 12/24/16 07:45 20 MEQ Prednisone (PredniSONE TAB) 5 mg DAILY PO 12/21/16 09:00 01/20/17 08:59 12/24/16 07:44 5 MG Sertraline HCl (Zoloft Tab) 150 mg DAILY PO 12/21/16 09:00 01/20/17 08:59 12/24/16 07:44 150 MG Tiotropium [place] (Spiriva Handihaler Inhaler) 1 puff DAILY INH 12/21/16 09:00 01/20/17 08:59 12/24/16 07:43 1 PUFF Acetaminophen/ Hydrocodone Bitart ([place] 5/325 Tab) one to two tabs as nee... Q6H PRN PO 12/20/16 14:15 01/03/17 14:14 12/24/16 07:43 2 TAB Pantoprazole Sodium 40 mg 40 mg QAM PO 12/21/16 09:00 01/20/17 08:59 12/24/16 07:45 40 MG Dobutamine HCl (DOBUTamine / D5W) 250 ml @ 0 mls/hr Q0M PRN IV 12/21/16 09:30 01/20/17 09:29 12/24/16 00:31 8.3 MLS/HR Heparin Sodium (Porcine) 5 ml 5 ml PRN PRN FLUSH 12/22/16 00:45 01/21/17 00:44 Iron Sucrose/ Sodium Chloride (Venofer Inj/Nss 100ml) 110 ml @ 420 mls/hr DAILY@1000 IV 12/22/16 10:00 12/26/16 10:16 12/23/16 10:30 420 MLS/HR Warfarin Sodium (Coumadin Tab) 5 mg DAILY@16 PO 12/23/16 16:00 01/22/17 15:59 12/23/16 17:45 5 MG Insulin Glargine (Lantus Solostar Pen) 10 unit QAM SC 12/25/16 09:00 01/24/17 08:59 Last 24 Hours Test 12/23/16 11:35 12/23/16 16:15 12/23/16 20:14 12/24/16 05:28 Bedside Glucose 110 mg/dl 129 mg/dl 155 mg/dl White Blood Count 12.94 K/uL Red Blood Count 4.30 M/uL Hemoglobin 9.8 g/dL Hematocrit 32.8 % Mean Corpuscular Volume 76.3 fL Mean Corpuscular Hemoglobin 22.8 pg Mean Corpuscular Hemoglobin Concent 29.9 g/dl RDW Standard Deviation 49.2 fL RDW Coefficient of Variation 17.8 % Platelet Count 247 K/uL Mean Platelet Volume 8.6 fL Prothrombin Time 13.4 SECONDS Prothromb Time International Ratio 1.2 Sodium Level 141 mmol/L Potassium Level 3.7 mmol/L Chloride Level 103 mmol/L Carbon Dioxide Level 29 mmol/L Anion Gap 9.0 mmol/L Blood Urea Nitrogen 98 mg/dl Creatinine 3.30 mg/dl Est Creatinine Clear Calc Drug Dose 24.4 ml/min Estimated GFR () 16.5 Estimated GFR (Non- 14.2 BUN/Creatinine Ratio 29.7 Random Glucose 84 mg/dl Calcium Level 8.3 mg/dl Magnesium Level 2.6 mg/dl Test 12/24/16 06:37 Bedside Glucose 99 mg/dl Assessment & Plan 61-year-old female with chronic right heart failure secondary to obesity hypoventilation syndrome, chronic a fib, chronic pannus infections w/ wound vac , chronic volume overload, CKD 4 admitted with FRED on CKD and symptomatic volume overload>>cardiorenal syndrome not responding to diuresis/dobutamine. 1. Acute kidney injury on chronic kidney disease stage IV with uremic symptoms including decreased appetite, pruritus, fatigue, volume overload>>ESRD d/t cardiorenal syndrome >>cont albumin with Lasix today at increased dose (80 mg IV tid) w/ dobutamine to help mobilize the third spaced fluid. Considering whether she would do dialysis if this does not work; no emergent indication; -cont fluid limit 1.2L daily though she is not hitting this usually; -daily standing wts appreciated and important in her care -consult placed for vascular for TDC non emergent >> she has failed aggressive IV lasix/dobutamine therapy multiple times; will need chronic dialysis likely [facility] [place] >first HD tomorrow or 12/26 depending on tdc timing 2. Hypermagnesemia, magnesium supplements stopped; recheck levels today still high and would not resume 3. Anemia of chronic kidney disease. pt has low iron stores >> getting course of venofer and once done / as needed consider Procrit Appreciate consult. Care coordinated w/ Cardiology and Dr Conti.
[2016-12-24] MEDS ORDERED: ALBUMIN 25% 50 ML with FUROSEMIDE INJ 80 MG IV ONE ×2 (11:00)
[2016-12-24] MEDS: IRON SUCROSE INJ 200 MG in SODIUM CHLORIDE 0.9% 100ML 100 ML IV SCH (11:12)
--- NOTE | 2016-12-24 11:32 | Progress Note ---
Internal Med Progress Note Date of Service: Dec 24, 2016. Provider Documentation: SUBJECTIVE: Patient is seen and examined at bedside. States feeling well today. Patient reports chronic SOB. States having chronic b/l leg swelling and erythema. Denies any chest pain, palpitations. Agrees to get tunneled cath for dialysis. OBJECTIVE: Vital Signs-as noted below Physical Exam: General Appearance:Obese, no apparent distress Head: normocephalic, Atraumatic Eyes: normal inspection, EOMI, PERRL Neck: supple, Trachea midline Respiratory/Chest: Decreased breath sounds, CTA Cardiovascular: Irregularly irregular, No murmur Abdomen/GI:Soft, Non tender, Bowel sounds present, Obese Extremities/Musculoskelatal:Chronic b/l erythema, edema Neurologic/Psych:AAOX3, grossly no focal neurological deficits Skin: Wound Vac present on Left posterior thigh. Chronic buttock wounds Lab data as noted below. ASSESSMENT & PLAN: 61 yr old female with acute RHF exacerbation and FRED: ACUTE ON CHRONIC CHF, RIGHT HEART FAILURE : Patient presented with weight gain of 13 lbs, SOB, increased abdominal girth Continue IV Lasix , Albumin per nephrology Also on IV Dobutamine No much improvement Planned for Tunneled dialysis catheter tomorrow Vasc surgery consulted Coumadin on hold for procedure ECHO:EF 65-70%, Moderate LVH, RA- mild to moderately dilated, Rt Ventricular systolic pressure - severely elevated at >60 mm hg Appreciate cardiology/Nephrology help FRED ON CKD-IV Baseline around 2, now 3.2 On IV Lasix/Albumin Plan for dialysis per nephrology BILATERAL HIP ULCERATIONS (CHRONICALLY INFECTED-KLEBSIELLA) 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 Has wound vac Appreciate ID inputs Continue with wound care ANEMIA, SECONDARY TO CKD/IRON DEFICIENCY Hb stable No signs of active bleeding IV Venofer per Nephrology Later may need to be started on procrit. ATRIAL FIBRILLATION Stable Continue with Metoprolol Coumadin on hold for procedure Monitor INR CHRONIC HYPOXIC RESPIRATORY FAILURE H/O CHRONIC COPD Stable Continue oxygen support S/P MECHANICAL FALL WITH RIGHT KNEE SPRAIN Improving Consider x ray if no recovery DM II: Continue with ISS, Lantus DEPRESSION: Stable Continue zoloft HYPOTHYROIDISM Continue levothyroxine MORBID OBESITY BMI:51.5 DVT PX: Heparin SQ Coumadin on hold for Tunneled dialysis catheter CODE STATUS: FULL CODE DISPOSITION Continue monitoring in Tele Vital Signs: Date Time Temp Pulse Resp B/P Pulse Ox O2 Delivery O2 Flow Rate FiO2 12/24/16 12:09 36.3 89 19 127/63 93 Nasal Cannula 4.0 12/24/16 08:00 Nasal Cannula 4.0 12/24/16 07:44 36.3 101 26 106/50 93 Nasal Cannula 4.0 101 12/24/16 04:00 Nasal Cannula 4.0 12/24/16 03:55 36.4 89 18 119/57 91 CPAP 12/24/16 02:05 83 96 4.0 12/23/16 23:59 Nasal Cannula 4.0 12/23/16 23:31 36.4 89 22 121/75 94 Nasal Cannula 4.0 12/23/16 20:50 36.7 97 21 110/92 93 Nasal Cannula 4.0 12/23/16 20:00 95 Nasal Cannula 4.0 12/23/16 16:00 Nasal Cannula 4.0 12/23/16 15:16 36.4 91 22 121/57 91 Nasal Cannula 4.0 Lab Results: Results Past 24 Hours Test 12/23/16 16:15 12/23/16 20:14 12/24/16 05:28 12/24/16 06:37 Range/Units Bedside Glucose 129 155 99 70-90 mg/dl White Blood Count 12.94 4.8-10.8 K/uL Red Blood Count 4.30 4.2-5.4 M/uL Hemoglobin 9.8 12.0-16.0 g/dL Hematocrit 32.8 37-47 % Mean Corpuscular Volume 76.3 80-100 fL Mean Corpuscular Hemoglobin 22.8 25-34 pg Mean Corpuscular Hemoglobin Concent 29.9 32-36 g/dl RDW Standard Deviation 49.2 36.4-46.3 fL RDW Coefficient of Variation 17.8 11.5-14.5 % Platelet Count 247 130-400 K/uL Mean Platelet Volume 8.6 7.4-10.4 fL Prothrombin Time 13.4 9.0-12.0 SECONDS Prothromb Time International Ratio 1.2 0.9-1.1 Sodium Level 141 136-145 mmol/L Potassium Level 3.7 3.5-5.1 mmol/L Chloride Level 103 98-107 mmol/L Carbon Dioxide Level 29 21-32 mmol/L Anion Gap 9.0 3-11 mmol/L Blood Urea Nitrogen 98 7-18 mg/dl Creatinine 3.30 0.60-1.20 mg/dl Est Creatinine Clear Calc Drug Dose 24.4 ml/min Estimated GFR () 16.5 Estimated GFR (Non- 14.2 BUN/Creatinine Ratio 29.7 10-20 Random Glucose 84 70-99 mg/dl Calcium Level 8.3 8.5-10.1 mg/dl Magnesium Level 2.6 1.8-2.4 mg/dl Test 12/24/16 11:12 Range/Units Bedside Glucose 136 70-90 mg/dl
--- NOTE | 2016-12-24 12:57 | Surgery Consultation ---
Consultation Date of Service Dec 24, 2016. (Trini Burgos, INGRID) Chief Complaint ESRD, need permcath (Trini Burgos, INGRID) History of Present Illness The patient is a 61 year old female with multiple medical problems, including HTN, gastroparesis, cor pulmonale, CKD, DMII, seen in consultation for permcath insertion d/t ESRD. Pt admits malaise, fatigue, SOB, NAVARRO, edema. Denies ARNOLD, fever, chills, chest pain, abd pain, N/V, rest pain, claudication, other complaints. (Trini Burgos, INGRDI) Vitals Vital Signs Past 12 Hours Date Time Temp Pulse Resp B/P Pulse Ox O2 Delivery O2 Flow Rate FiO2 12/24/16 12:09 36.3 89 19 127/63 93 Nasal Cannula 4.0 12/24/16 12:00 Nasal Cannula 4.0 12/24/16 08:00 Nasal Cannula 4.0 12/24/16 07:44 36.3 101 26 106/50 93 Nasal Cannula 4.0 101 12/24/16 04:00 Nasal Cannula 4.0 12/24/16 03:55 36.4 89 18 119/57 91 CPAP 12/24/16 02:05 83 96 4.0 (Trini Burgos, INGRID) Allergies Coded Allergies: Bacitracin (Verified Allergy, Intermediate, RASH,ITCH, 08/27/16) Celecoxib (Verified Allergy, Intermediate, RASH TO SULFA DRUGS, 08/27/16) Neomycin (Verified Allergy, Intermediate, RASH,ITCH, 08/27/16) Polymyxin B (Verified Allergy, Intermediate, RASH,ITCH, 08/27/16) Sulfa Antibiotics (Verified Allergy, Intermediate, RASH,HAS TAKEN GLIPIZIDE W/O REACTION, 08/27/16) Tigecycline (Verified Adverse Reaction, Severe, MILD PANCREATITIS, ) 61 yo F placed on IV tigecycline for wound infection, after 5-6 days developed decreased appetite, had nonspecific abdominal pain from admission and was refusing to lie back for daily abd assessments because of pain in other areas of abdomen. Decreased appetite persisted, also in context of worsening depression and stated apathy, WBC continued to increase, CT chest revealed n/s changes possibly consistent with mild pancreatitis, lipase drawn and elevated, other causes ruled out, clinical pancreatitis on exam. Diruretics/albumin stopped to avoid further rehydration, tigecycline discontinued, continuing supportive care. Codeine (Verified Adverse Reaction, Intermediate, GI UPSET, 08/27/16) Home Medications Scheduled Ascorbic Acid (Vitamin C), 500 MG PO BID Aspirin Enteric Coated (Ecotrin Or Generic *), 81 MG PO DAILY Atorvastatin (Lipitor), 40 MG PO DAILY Calcitriol (Rocaltrol Cap), 0.25 MCG PO UD Ceftazidime-Avibactam Sodium (Avycaz 2-0.5 gm), 0.94 GM IV DAILY Cholecalciferol (Vitamin D), 2,000 INTER.UNIT PO DAILY Ciprofloxacin/Hydrocortisone (Cipro Hc 0.2-1 %), 3 DROPS OT BID Cyanocobalamin (Vitamin B-12), 1,000 MCG PO DAILY Gabapentin (Neurontin), 400 MG PO BID Heparin Sodium (Porcine) (Heparin Sodium), 5,000 UNITS SQ BID Hydrocodon/Acetaminophen 5MG/300MG (Vicodin (5MG/300MG)), 2 TABS PO UD Insulin Aspart (Novolog Penfill), 3 UNITS SC AC Insulin Glargine (Lantus), 20 UNITS SQ QAM Levothyroxine Sodium (Synthroid), 125 MCG PO DAILY Lorazepam (Ativan), 0.5 MG PO UD Magnesium Oxide (Mag-Ox), 400 MG PO BID Metolazone (Zaroxolyn), 2.5 MG PO WK Metoprolol Succinate (Toprol Xl), 50 MG PO DAILY Miconazole Nitrate (Desenex Shake Powder), 1 APPLN EXT MoWeFr@0900 Multiple Vitamins W/ Minerals (Therems M), 1 TAB PO DAILY Pantoprazole (Protonix), 20 MG PO DAILY Potassium Chloride Microencaps (Potassium Chloride Er), 20 MEQ PO DAILY Prednisone (Prednisone), 5 MG PO DAILY Sertraline (Zoloft), 150 MG PO DAILY Tiotropium [place] (Spiriva Handihaler), 1 CAP INH DAILY Torsemide (Demadex), 100 MG PO DAILY Warfarin Sod (Coumadin), 2.5 MG PO DAILY@16 [protein powder], 1 DOSE PO TID Scheduled PRN Acetaminophen Tab (Tylenol), 650 MG PO Q6H PRN for PAIN OR TEMP > 100F Albuterol (Proair Hfa), 2 PUFFS PO QID PRN for Shortness of Breath Hydrocodon/Acetaminophen 5MG/300MG (Vicodin (5MG/300MG)), 1 TAB PO Q6H PRN for Pain Hydrocodon/Acetaminophen 5MG/300MG (Vicodin (5MG/300MG)), 2 TABS PO Q12 PRN for SEVERE PAIN Hydroxyzine Hcl (Atarax), 25 MG PO Q6H PRN for PURITIS Problem List Medical Problems: (1) Acute right heart failure (2) Atrial Fibrillation (3) C. difficile colitis (4) Chronic respiratory failure (5) CKD (chronic kidney disease), stage IV (6) Cor pulmonale (7) Diab Ania Wo Compl, Type Ii Or Unspec Type, Uncontrolled (8) Gastroparesis (9) Hyperlipidemia Nec/Nos (10) Hypertension (11) Hypertension Nos (12) Hypoglycemia (13) Morbid Obesity (14) Obesity hypoventilation syndrome (15) Pressure ulcer (16) Sleep apnea (17) Wound infection Surgical Problems: (1) S/P cholecystectomy (2) S/P debridement (Trini Burgos, PA-C) Surgical / Medical History Hx Cardiac Surgery: No Hx Abdominal Surgery: Yes (Lap Cholecestectomy) Hx Cancer Surgery: No Hx Thoracic Surgery: No Hx Orthopedic: No Hx Urinary Tract Surgery: No HX Other Surgery: Yes Past Medical/Surgical History: Diabetes, Heart Disease, High Cholesterol, Hypertension, Kidney Disease (Trini Burgos, PA-C) Family History Cancer Diabetes mellitus FH: heart disease FHx: lung disease Hypertension Kidney stones (Trini Burgos, PAJackelynC) Cancer Diabetes mellitus FH: heart disease FHx: lung disease Hypertension Kidney stones (Yves Falk M.D.) Social History Smoking Status: Former Smoker (lifelong) Hx Tobacco Use In Past Year?: No Hx Alcohol Use - Type & Amnt: No Hx Substance Use -Type & Amnt: No (Trini Burgos, PA-C) Review of Systems Constitutional: + malaise, No chills, No fever Skin: No change in color Eyes: No visual changes ENMT: No sore throat Respiratory: + NAVARRO, + orthopnea, + short of breath, No cough, No hemoptysis Cardiovascular: + edema, No chest pain, No intermittent claudication, No palpitations, No syncope Gastrointestinal: No abdominal pain, No nausea, No vomiting Genitourinary - Female: No dysuria, No hematuria Neurologic: No dizziness, No headache, No lethargy, No numbness, No tingling ( Trini Burgos, DOMINIKC-C) Physical Exam Constitutional: General Apperance: well-nourished, well-developed, obese (morbidly) Level of Distress: NAD, acutely ill, chronically ill Psychiatric: Mental Status: active & alert, normal mood, normal affect Orientation: to time, to place, to person Memory: recent memory normal (but vague), remote memory normal Head: normocephalic, atraumatic Eyes: EOM: EOMI ENMT: normal ENT inspection, hearing grossly normal Neck: supple, trachea midline Lungs: Auscultation: no rhonchi, deminished air movement, decreased breath sounds Cardiovascular: Apical Impulse: not displaced Heart Auscultation: no rubs, no gallops, pertinent finding (irregular) Peripheral Pulses: Pulses: full and equal, in all extremities except if noted Bruits: none appreciated Carotid Pulse: normal on the left, normal on the right Brachial Pulses: normal on the left, normal on the right Popliteal Pulse: normal on the left, normal on the right Posterior Tibialis Pulse: pertinent finding (nonpalpable) Dorsalis Pedis Pulse: pertinent finding (nonpalpable) Abdomen: Bowel Sounds: normal Inspection & Palpation: soft, non-distended, no tenderness, guarding & rebound Musculoskeletal: normal strength (5/5 throughout), normal tone Extremities: Upper Right: no cyanosis, no edema, no varicosities Upper Left: no cyanosis, no edema, no varicosities Lower Right: no cyanosis, no varicosities, no palpable cord, edema Lower Left: no cyanosis, no varicosities, no palpable cord, edema Neurologic: Cranial Nerves: grossly intact Sensation: grossly intact (Trini Burgos, PA-C) Assessment and Plan ASSESSMENT and PLAN: ESRD Pt for permcath insertion in OR tomorrow. Procedure, risks, benefits, and alternatives discussed with pt, she expresses understanding and agreement. Family present. (Trini Burgos, PA-C) Patient was seen, examined, and chart reviewed. Agree with exam and treatment plan of the Vascular PA. Will place permcath tomorrow. I have discussed the risks options and benefits of the procedure with the patient. The patient understands the risks options and benefits and agrees to the procedure. (Yves Falk M.D.)
--- NOTE | 2016-12-24 13:46 | Pharmacy Progress Note ---
Glycemic Control: Progress Nt Date of Service Dec 24, 2016. Scope Glycemic Pharmacist consulted by Dr King on 12/20 for glycemic control and to write orders per [facility] inpatient glycemic control protocol. Objective Accuchecks BSG (last 24hrs): Test 12/23/16 16:15 12/23/16 20:14 12/24/16 05:28 12/24/16 06:37 Bedside Glucose 129 mg/dl (70-90) 155 mg/dl (70-90) 99 mg/dl (70-90) Random Glucose 84 mg/dl (70-99) Test 12/24/16 11:12 Bedside Glucose 136 mg/dl (70-90) Laboratory Data (last 24hrs) Test 12/24/16 05:28 Anion Gap 9.0 mmol/L BUN/Creatinine Ratio 29.7 Blood Urea Nitrogen 98 mg/dl Creatinine 3.30 mg/dl Potassium Level 3.7 mmol/L Sodium Level 141 mmol/L White Blood Count 12.94 K/uL HbA1c: Test 12/21/16 04:50 Hemoglobin A1c 8.1 % (4.5-5.6) H Recent Pertinent Medications Outpatient Anti-diabetic Regimen: * Lantus 20 units QAM * Novolog 3 units AC + scale The patient is currently receiving: * Basal insulin: Lantus 12 units every 24 hours * Correctional Insulin: Novolog Correction per scale ACHS Goal Range: Low 110 mg/dL - High 140 mg/dL Correction Factor: 40 mg/dL/unit * Prandial insulin: Per carb ratio of 1 unit per 10 grams CHO consumed Risk Factors for Insulin Resistance: * Steroids: chronic prednisone 5 mg qAM * Pressors: dobutamine - not being titrated * Diet: type 2 diabetes/ low sodium Assessment & Plan ASSESSMENT: From 12/22/16 note: * Patient is currently receiving an average of 33 units of insulin per day * 12 units of basal insulin * 21 units of prandial/correctional insulin * BSGs ranging 129 - 154 over the past 24hrs * Risk factors for insulin resistance have remained constant over the past 24hrs * Steroid dosing unchanged (home regimen) * Anticipating current insulin regimen to be unchanged for the next 24 hours * Reassess in the AM 12/23/16 * Ms. Blevins rec'd 35 units of insulin yesterday w/ BSGs ranging from 84-246 mg/dL * BSG dropped significantly overnight (246 -> 84) which is most likely a result of the correctional insulin given as fasting BSGs have been good on current basal dose * Will plan to loosen CF to prevent hypoglycemia * In addition, noted that patient apparently had donuts yesterday that were brought in by family members 12/24/16 * Ms. Blevins rec'd 23 units of insulin yesterday with "low" fasting BSG, despite loosened CF * Will plan to reduce Lantus further to 10 units but will start this on 12/26 as pt to be NPO for perm cath placement tomorrow. Will give a further reduced dose of Lantus tomorrow AM for NPO status. PLAN FOR INPATIENT GLYCEMIC CONTROL: * Decrease Lantus to 6 units tomorrow for NPO status, then 10 units daily starting 12/26 * Continue Novolog ACHS * Goal 110-140 mg/dL * CF 40 mg/dL/unit * CR 1 unit per 10 gm CHO consumed * Please note that the plan above was derived based on current level of insulin resistance and hospital stress. These recommendations are appropriate for inpatient admission only. Plan of care upon discharge will need to be reassessed to avoid potential outpatient hypo/hyperglycemia. Thank you.
--- NOTE | 2016-12-24 14:06 | Cardiology Follow-Up ---
Subjective General Date of Service: Dec 24, 2016. Chief Complaint: SOB; CKD; CHF History of Present Illness Patient feeling ok this AM. States dyspnea at rest mildly improved. Feels abdomen is "bigger". No change in LE edema. No chest pain. No sense of palpitations or dizziness. Patient had long discussion with language instructor today. Agreeable to start dialysis process. Allergies Coded Allergies: Bacitracin (Verified Allergy, Intermediate, RASH,ITCH, 08/27/16) Celecoxib (Verified Allergy, Intermediate, RASH TO SULFA DRUGS, 08/27/16) Neomycin (Verified Allergy, Intermediate, RASH,ITCH, 08/27/16) Polymyxin B (Verified Allergy, Intermediate, RASH,ITCH, 08/27/16) Sulfa Antibiotics (Verified Allergy, Intermediate, RASH,HAS TAKEN GLIPIZIDE W/O REACTION, 08/27/16) Tigecycline (Verified Adverse Reaction, Severe, MILD PANCREATITIS, ) 61 yo F placed on IV tigecycline for wound infection, after 5-6 days developed decreased appetite, had nonspecific abdominal pain from admission and was refusing to lie back for daily abd assessments because of pain in other areas of abdomen. Decreased appetite persisted, also in context of worsening depression and stated apathy, WBC continued to increase, CT chest revealed n/s changes possibly consistent with mild pancreatitis, lipase drawn and elevated, other causes ruled out, clinical pancreatitis on exam. Diruretics/albumin stopped to avoid further rehydration, tigecycline discontinued, continuing supportive care. Codeine (Verified Adverse Reaction, Intermediate, GI UPSET, 08/27/16) Social History Smoking Status: Former Smoker (lifelong) Hx Tobacco Use In Past Year?: No Hx Alcohol Use - Type And Amou: No Hx Substance Use - Type And Am: No Problem List Medical Problems: (1) FRED (acute kidney injury) Status: Acute (2) CHF (congestive heart failure) Status: Acute (3) Congestive heart failure Status: Acute (4) Congestive heart failure Status: Acute (5) Congestive heart failure Status: Acute (6) Hypoxia Status: Acute (7) Leukocytosis Status: Acute (8) Leukocytosis Status: Acute (9) Low grade fever Status: Acute (10) Low grade fever Status: Acute (11) Rapid atrial fibrillation Status: Acute (12) Rapid atrial fibrillation Status: Acute (13) Renal insufficiency Status: Acute (14) Sepsis Status: Acute (15) Sepsis associated hypotension Status: Acute (16) Severe sepsis with acute organ dysfunction Status: Acute (17) Shortness of breath Status: Acute Review of Systems Respiratory: + dyspnea on exertion, + shortness of breath, No cough, No dyspnea at rest, No hemoptysis, No sputum, No wheezing Cardiac: + edema, No PND, No chest pain, No palpitations Physical Exam Vital Signs Last Vital Signs Documentation Date Time Temp Pulse Resp B/P Pulse Ox O2 Delivery O2 Flow Rate FiO2 12/24/16 12:09 36.3 89 19 127/63 93 Nasal Cannula 4.0 Physical Exam Constitutional: General Apperance: well-nourished, well-developed, obese (morbidly) Level of Distress: NAD, acutely ill, chronically ill Psychiatric: Mental Status: active & alert, normal mood, normal affect Orientation: to time, to place, to person Memory: recent memory normal (but vague), remote memory normal Head: normocephalic, atraumatic Eyes: EOM: EOMI Neck: supple, trachea midline Lungs: Auscultation: no rhonchi, deminished air movement, decreased breath sounds Cardiovascular: Apical Impulse: not displaced Heart Auscultation: II/ LINDSAY, irregular rate rhythm Peripheral Pulses: Bruits: none appreciated Carotid Pulse: normal on the left, normal on the right Dorsalis Pedis Pulse: pertinent finding (nonpalpable) Abdomen: Bowel Sounds: normal Inspection & Palpation: soft, non-distended, no tenderness, guarding & rebound Musculoskeletal: normal strength (5/5 throughout), normal tone Extremities: edema (2+ pitting b/l, hard indurated with erythema) Neurologic: Cranial Nerves: grossly intact Sensation: grossly intact Assessment and Plan Assessment and Plan Assessment: 1. acute on chronic right sided HF 2. acute on chronic renal failure 3. Persistent atrial fibrillation on coumadin. 4. Hypertension 5. Obesity, pickwickian, respiratory failure PLAN: Continue IV diuresis with furosemide, albumin with assistance of dobutamine gtt Renal function mildly improved this AM but no significant output despite high dose diuretic therapy. Patient agreeable to starting dialysis. Vascular surgery consult has been placed. hold Coumadin for probable TDC placement. Fluid restrictions encouraged. Continue all other therapies including ASA, metoprolol, atorvastatin. Continue SQ heparin Case discussed with Dr. Santa. Will follow. Patient seen and assessed, plan as above. No significant response to dobutamine augmentation. Will stop Proceeding toward renal replacement Alex Santa MD Laboratory Results Last 24 Hours Test 12/23/16 16:15 12/23/16 20:14 12/24/16 05:28 12/24/16 06:37 Bedside Glucose 129 mg/dl 155 mg/dl 99 mg/dl White Blood Count 12.94 K/uL Red Blood Count 4.30 M/uL Hemoglobin 9.8 g/dL Hematocrit 32.8 % Mean Corpuscular Volume 76.3 fL Mean Corpuscular Hemoglobin 22.8 pg Mean Corpuscular Hemoglobin Concent 29.9 g/dl RDW Standard Deviation 49.2 fL RDW Coefficient of Variation 17.8 % Platelet Count 247 K/uL Mean Platelet Volume 8.6 fL Prothrombin Time 13.4 SECONDS Prothromb Time International Ratio 1.2 Sodium Level 141 mmol/L Potassium Level 3.7 mmol/L Chloride Level 103 mmol/L Carbon Dioxide Level 29 mmol/L Anion Gap 9.0 mmol/L Blood Urea Nitrogen 98 mg/dl Creatinine 3.30 mg/dl Est Creatinine Clear Calc Drug Dose 24.4 ml/min Estimated GFR () 16.5 Estimated GFR (Non- 14.2 BUN/Creatinine Ratio 29.7 Random Glucose 84 mg/dl Calcium Level 8.3 mg/dl Magnesium Level 2.6 mg/dl Test 12/24/16 11:12 Bedside Glucose 136 mg/dl
[2016-12-24] MEDS: ALBUMIN 25% 50 ML with FUROSEMIDE INJ 80 MG IV SCH ×4 (16:55→21:20)
[2016-12-24] MEDS ORDERED: NURSING VERBAL MED ORDER ONE (21:00)
[2016-12-24 22:01] LABS: CKMB/CK RATIO 6.7 (0-3.0); CREATININE 3.3 mg/dl (0.60-1.20); MAGNESIUM 2.3 mg/dl (1.8-2.4); POTASSIUM 3.9 mmol/L (3.5-5.1)
[2016-12-25] VITALS (18 sets, daily range): BP systolic 108–131; BP diastolic 56–80; PULSE 76–99; TEMP 36.3–37; O2SAT 91–94
[2016-12-25] MEDS: HYDROCODONE/ACETAMOPHEN 5/325MG TAB PO PRN ×2 (00:41→08:40)
[2016-12-25 02:39] LABS: CKMB/CK RATIO 7.4 (0-3.0)
[2016-12-25] MEDS ORDERED: CEFAZOLIN 3000 MG/65 ML D5W 65 ML IV SCH (06:00)
[2016-12-25] MEDS: LEVOTHYROXINE 125 MCG TAB PO SCH (06:21)
[2016-12-25] MEDS: HEPARIN SOD 5000 UNIT/0.5 ML CARP SQ SCH ×3 (06:21→20:38)
[2016-12-25] MEDS: INSULIN ASPART 100 UNITS/ML 3 ML PEN SC SCH ×4 (07:00→20:34)
[2016-12-25 07:46] LABS: INR 1.3 (0.9-1.1)
[2016-12-25 07:52] LABS: BUN/CREATININE RATIO 31.2 (10-20); CALCIUM 8.6 mg/dl (8.5-10.1); CREATININE 3.1 mg/dl (0.60-1.20); POTASSIUM 3.6 mmol/L (3.5-5.1)
[2016-12-25] MEDS: CHOLECALCIFEROL 1000 INTER.UNIT TAB PO SCH (08:24)
[2016-12-25] MEDS: ATORVASTATIN 40 MG TAB PO SCH (08:24)
[2016-12-25] MEDS: ASPIRIN 81 MG ECTAB PO SCH (08:24)
[2016-12-25] MEDS: POTASSIUM CHLORIDE 20 MEQ TABCR PO SCH (08:24)
[2016-12-25] MEDS: GABAPENTIN 400 MG CAP PO SCH ×2 (08:25→20:36)
[2016-12-25] MEDS: CEROVITE ADV FORMULA TAB PO SCH (08:25)
[2016-12-25] MEDS: METOPROLOL SUCC 50MG EXT REL TAB PO SCH (08:25)
[2016-12-25] MEDS: CYANOCOBALAMIN 500 MCG TAB (VIT B-12) PO SCH (08:25)
[2016-12-25] MEDS: PANTOprazole SOD 40 MG TAB PO SCH (08:26)
[2016-12-25] MEDS: ASCORBIC ACID 500 MG TAB PO SCH ×2 (08:26→20:36)
[2016-12-25] MEDS: SERTRALINE HCL 100 MG TAB PO SCH (08:26)
[2016-12-25] MEDS: CALCITRIOL 0.25 MCG CAP PO SCH (08:28)
[2016-12-25] MEDS: MICONAZOLE NITRATE POWDER 43 GM EXT SCH (08:28)
[2016-12-25] MEDS: LORAZEPAM 0.5 MG TAB PO PRN (08:35)
--- NOTE | 2016-12-25 08:40 | Nephrology Progress Note ---
Nephrology Progress Note Date of Service: Dec 25, 2016. Subjective for TDC later today (1300); not clear if will do first HD today or tomorrow. no n/v; feels she is breathing better; off dobutamine Objective Date Time Temp Pulse Resp B/P Pulse Ox O2 Delivery O2 Flow Rate FiO2 12/25/16 07:21 36.6 99 18 131/71 91 Nasal Cannula 4.0 12/25/16 04:00 Nasal Cannula 4.0 12/25/16 03:45 36.3 92 22 118/80 91 CPAP 12/25/16 00:34 83 94 4.0 12/24/16 23:26 36.3 83 20 101/38 91 Nasal Cannula 4.0 12/24/16 23:00 Nasal Cannula 4.0 12/24/16 20:00 Nasal Cannula 4.0 12/24/16 19:40 36.5 79 17 130/67 94 Nasal Cannula 4.0 12/24/16 16:00 Nasal Cannula 4.0 12/24/16 15:13 36.4 86 15 126/56 94 Nasal Cannula 4.0 12/24/16 12:09 36.3 89 19 127/63 93 Nasal Cannula 4.0 12/24/16 12:00 Nasal Cannula 4.0 Physical Exam: GENERAL: Awake, alert, oriented x3, morbidly obese, dosing but wakens fully on 4L 02nc EYES: No scleral icterus. EARS, NOSE, THROAT: Moist mucous membranes. LUNGS: Clear to auscultation w/ diminished air entry and bases. CARDIAC: irregularly spaced beats in 90s and distant ABDOMEN: Very large pannus with a wound VAC on the left from previous surgery. delatorre + EXTREMITIES: Bilateral erythematous ++2 indurated edema. NEUROLOGICALLY: laboy/fluent speech, limited insight Current Inpatient Medications Medications (Trade) Dose Ordered Sig/Tyrone Route Start Time Stop Time Status Last Admin Dose Admin Heparin Sodium (Porcine) (Heparin Sq 5000 Unit/0.5ml) 5,000 unit Q8 SQ 12/20/16 22:00 01/19/17 21:59 12/25/16 06:21 5,000 UNIT Glucose (Glucose 40% Gel) 15-30 GRAMS 15 GRAMS... UD PRN PO 12/20/16 12:15 01/19/17 12:14 Glucose (Glucose Chew Tab) 4-8 Tablets 4 Tabl... UD PRN PO 12/20/16 12:15 01/19/17 12:14 Dextrose (Dextrose 50% 50ML Syringe) 25-50ML OF 50% DW IV FOR... UD PRN IV 12/20/16 12:15 01/19/17 12:14 Glucagon (Glucagon Inj) 1 mg UD PRN SQ 12/20/16 12:15 01/19/17 12:14 Miscellaneous Information (Consult Glycemic Management Pharmacy) 1 ea UD PRN N/A 12/20/16 12:16 01/19/17 12:15 Insulin Aspart (novoLOG ASPART) SLIDING SCALE If C... ACHS SC 12/20/16 12:30 01/19/17 12:29 12/24/16 21:24 3 UNITS Albuterol (Ventolin Hfa Inhaler) 2 puffs QID PRN INH 12/20/16 14:15 01/19/17 14:14 12/22/16 09:01 2 PUFFS Ascorbic Acid (Vitamin C Tab) 500 mg BID PO 12/20/16 21:00 01/19/17 20:59 12/25/16 08:26 500 MG Aspirin (Ecotrin Tab) 81 mg DAILY PO 12/21/16 09:00 01/20/17 08:59 12/25/16 08:24 81 MG Atorvastatin Calcium (Lipitor Tab) 40 mg DAILY PO 12/21/16 09:00 01/20/17 08:59 12/25/16 08:24 40 MG Calcitriol (Rocaltrol Cap) 0.25 mcg MoWeFr@0900 PO 12/23/16 09:00 01/22/17 08:59 12/25/16 08:28 0.25 MCG Cholecalciferol (Vitamin D Tab) 2,000 inter.unit DAILY PO 12/21/16 09:00 01/20/17 08:59 12/25/16 08:24 2,000 INTER.UNIT Cyanocobalamin (Vitamin B-12 Tab) 1,000 mcg DAILY PO 12/21/16 09:00 01/20/17 08:59 12/25/16 08:25 1,000 MCG Gabapentin (Neurontin Cap) 400 mg BID PO 12/20/16 21:00 01/19/17 20:59 12/25/16 08:25 400 MG Hydroxyzine HCl (Vistaril Tab) 25 mg Q6H PRN PO 12/20/16 14:15 01/19/17 14:14 12/22/16 08:59 25 MG Levothyroxine Sodium (Synthroid Tab) 125 mcg DAILYBB PO 12/21/16 06:00 01/20/17 05:59 12/25/16 06:21 125 MCG Lorazepam (Ativan Tab) 0.5 mg DAILY PRN PO 12/20/16 14:15 01/19/17 14:14 12/20/16 15:39 0.5 MG Metoprolol Succinate (Toprol Xl Tab) 50 mg DAILY PO 12/21/16 09:00 01/20/17 08:59 12/25/16 08:25 50 MG Miconazole Nitrate (Desenex Powder) 1 appln MoWeFr@0900 EXT 12/23/16 09:00 01/22/17 08:59 12/25/16 08:28 1 APPLN Multivitamins/ Minerals (Multivitamin W/ Minerals Tab) 1 tab DAILY PO 12/21/16 09:00 01/20/17 08:59 12/25/16 08:25 1 TAB Potassium Chloride (Klor-Con Tab) 20 meq DAILY PO 12/21/16 09:00 01/20/17 08:59 12/25/16 08:24 20 MEQ Prednisone (PredniSONE TAB) 5 mg DAILY PO 12/21/16 09:00 01/20/17 08:59 12/25/16 08:25 5 MG Sertraline HCl (Zoloft Tab) 150 mg DAILY PO 12/21/16 09:00 01/20/17 08:59 12/25/16 08:26 150 MG Tiotropium Tolar (Spiriva Handihaler Inhaler) 1 puff DAILY INH 12/21/16 09:00 01/20/17 08:59 12/24/16 07:43 1 PUFF Acetaminophen/ Hydrocodone Bitart (Bluebell 5/325 Tab) one to two tabs as nee... Q6H PRN PO 12/20/16 14:15 01/03/17 14:14 12/25/16 00:41 2 TAB Pantoprazole Sodium (Protonix Tab) 40 mg QAM PO 12/21/16 09:00 01/20/17 08:59 12/25/16 08:26 40 MG Heparin Sodium (Porcine) 5 ml 5 ml PRN PRN FLUSH 12/22/16 00:45 01/21/17 00:44 Iron Sucrose/ Sodium Chloride (Venofer Inj/Nss 100ml) 110 ml @ 420 mls/hr DAILY@1000 IV 12/22/16 10:00 12/26/16 10:16 12/24/16 11:12 420 MLS/HR Warfarin Sodium (Coumadin Tab) 5 mg DAILY@16 PO 12/23/16 16:00 01/22/17 15:59 Future Hold 12/23/16 17:45 5 MG Insulin Glargine 10 unit 10 unit QAM SC 12/25/16 09:00 01/24/17 08:59 Future Hold Furosemide 80 mg/ Albumin Human 58 ml @ 54 mls/hr TID IV 12/24/16 16:00 01/07/17 15:59 12/24/16 21:20 54 MLS/HR Cefazolin Sodium (Ancef 3000 Mg/ 65 ml D5W) 65 ml @ 100 mls/hr PRE-SPECIALS@0600 IV 12/25/16 06:00 12/25/16 18:00 Insulin Glargine (Lantus Solostar Pen) 6 unit TODAY@0900 ONCE SC 12/25/16 09:00 12/25/16 09:01 12/25/16 08:31 6 UNIT Last 24 Hours Test 12/24/16 11:12 12/24/16 15:52 12/24/16 20:21 12/24/16 21:13 Bedside Glucose 136 mg/dl 153 mg/dl 135 mg/dl Sodium Level 140 mmol/L Potassium Level 3.9 mmol/L Chloride Level 102 mmol/L Carbon Dioxide Level 29 mmol/L Anion Gap 9.0 mmol/L Blood Urea Nitrogen 99 mg/dl Creatinine 3.30 mg/dl Est Creatinine Clear Calc Drug Dose 24.4 ml/min Estimated GFR () 16.5 Estimated GFR (Non- 14.2 BUN/Creatinine Ratio 30.0 Random Glucose 114 mg/dl Calcium Level 8.4 mg/dl Magnesium Level 2.3 mg/dl Total Creatine Kinase 21 U/L Creatine Kinase MB 1.4 ng/ml Creatine Kinase MB Ratio 6.7 Troponin I < 0.015 ng/ml Test 12/25/16 02:10 12/25/16 06:32 12/25/16 06:36 Total Creatine Kinase 19 U/L Creatine Kinase MB 1.4 ng/ml Creatine Kinase MB Ratio 7.4 Troponin I < 0.015 ng/ml Prothrombin Time 14.0 SECONDS Prothromb Time International Ratio 1.3 Sodium Level 140 mmol/L Potassium Level 3.6 mmol/L Chloride Level 103 mmol/L Carbon Dioxide Level 27 mmol/L Anion Gap 10.0 mmol/L Blood Urea Nitrogen 97 mg/dl Creatinine 3.10 mg/dl Est Creatinine Clear Calc Drug Dose 25.9 ml/min Estimated GFR () 17.8 Estimated GFR (Non- 15.4 BUN/Creatinine Ratio 31.2 Random Glucose 82 mg/dl Calcium Level 8.6 mg/dl Bedside Glucose 99 mg/dl Assessment & Plan 61-year-old female with chronic right heart failure secondary to obesity hypoventilation syndrome, chronic a fib, chronic pannus infections w/ wound vac , chronic volume overload, CKD 4 admitted with FRED on CKD and symptomatic volume overload>>cardiorenal syndrome not responding to diuresis/dobutamine. 1. Acute kidney injury on chronic kidney disease stage IV with uremic symptoms including decreased appetite, pruritus, fatigue, volume overload>>ESRD d/t cardiorenal syndrome >>cont albumin with Lasix today at increased dose (80 mg IV tid) (reached time limit on dobutamine) to help mobilize the third spaced fluid. to start dialysis today or tomorrow -cont fluid limit 1.2L daily though she is not hitting this usually; -daily standing wts appreciated and important in her care -consult placed for vascular for TDC non emergent >> she has failed aggressive IV lasix/dobutamine therapy multiple times; will need chronic dialysis likely [facility] [place] 2. Anemia of chronic kidney disease. pt has low iron stores >> getting course of venofer and once done / as needed consider Procrit Appreciate consult.
[2016-12-25] MEDS ORDERED: INSULIN GLARGINE SOLOSTAR 100 UNITS/ML 3 ML PEN SC SCH (09:00)
[2016-12-25] MEDS ORDERED: INSULIN GLARGINE SOLOSTAR 100 UNITS/ML 3 ML PEN SC ONE (09:00)
--- NOTE | 2016-12-25 09:01 | Progress Note ---
Internal Med Progress Note Date of Service: Dec 25, 2016. Provider Documentation: SUBJECTIVE: Patient is seen and examined at bedside. Patient had NSVT overnight while on dobutamine ggt and patient was asymptomatic. States doing well this morning. Patient reports chronic SOB on exertion. Denies any chest pain, palpitations. Planned to get tunneled cath today and possibly dialysis after that. OBJECTIVE: Vital Signs-as noted below Physical Exam: General Appearance:Obese, no apparent distress Head: normocephalic, Atraumatic Eyes: normal inspection, EOMI, PERRL Neck: supple, Trachea midline Respiratory/Chest: Decreased breath sounds, CTA Cardiovascular: Irregularly irregular, No murmur Abdomen/GI:Soft, Non tender, Bowel sounds present, Obese Extremities/Musculoskelatal:Chronic b/l erythema, edema Neurologic/Psych:AAOX3, grossly no focal neurological deficits Skin: Wound Vac present on Left posterior thigh. Chronic buttock wounds Lab data as noted below. ASSESSMENT & PLAN: 61 yr old female with acute RHF exacerbation and FRED: ACUTE ON CHRONIC CHF, RIGHT HEART FAILURE : CARDIORENAL SYNDROME: Patient presented with weight gain of 13 lbs, SOB, increased abdominal girth Not responding to diuresis/dobutamine Continue IV Lasix , Albumin per nephrology S/P IV Dobutamine: discontinued after patient developed NSVT Planned for Tunneled dialysis catheter tomorrow and possibly dialysis later today Vasc surgery on board Coumadin on hold for procedure ECHO:EF 65-70%, Moderate LVH, RA- mild to moderately dilated, Rt Ventricular systolic pressure - severely elevated at >60 mm hg Appreciate cardiology/Nephrology/Vascular surgery help FRED ON CKD-IV Baseline around 2, now 3.1 On IV Lasix/Albumin Plan for dialysis per nephrology BILATERAL HIP ULCERATIONS (CHRONICALLY INFECTED-KLEBSIELLA) Patient was on IV antibiotics - halfway due to multi drug resistant klebsiella infection, which was discontinued this admission by ID. Has wound vac Appreciate ID inputs Continue with wound care ANEMIA, SECONDARY TO CKD/IRON DEFICIENCY Hb stable No signs of active bleeding IV Venofer per Nephrology Later may need to be started on procrit. ATRIAL FIBRILLATION Stable Continue Metoprolol Coumadin on hold for procedure Monitor INR CHRONIC HYPOXIC RESPIRATORY FAILURE H/O CHRONIC COPD Stable Continue oxygen support S/P MECHANICAL FALL WITH RIGHT KNEE SPRAIN Improving Consider x ray if no recovery DM II: Continue with ISS, Lantus DEPRESSION: Stable Continue zoloft HYPOTHYROIDISM Continue levothyroxine MORBID OBESITY BMI:51.5 DVT PX: Heparin SQ Coumadin on hold for Tunneled dialysis catheter CODE STATUS: FULL CODE DISPOSITION Continue monitoring in Tele Vital Signs: Date Time Temp Pulse Resp B/P Pulse Ox O2 Delivery O2 Flow Rate FiO2 12/25/16 07:21 36.6 99 18 131/71 91 Nasal Cannula 4.0 12/25/16 04:00 Nasal Cannula 4.0 12/25/16 03:45 36.3 92 22 118/80 91 CPAP 12/25/16 00:34 83 94 4.0 12/24/16 23:26 36.3 83 20 101/38 91 Nasal Cannula 4.0 12/24/16 23:00 Nasal Cannula 4.0 12/24/16 20:00 Nasal Cannula 4.0 12/24/16 19:40 36.5 79 17 130/67 94 Nasal Cannula 4.0 12/24/16 16:00 Nasal Cannula 4.0 12/24/16 15:13 36.4 86 15 126/56 94 Nasal Cannula 4.0 12/24/16 12:09 36.3 89 19 127/63 93 Nasal Cannula 4.0 12/24/16 12:00 Nasal Cannula 4.0 Lab Results: Results Past 24 Hours Test 12/24/16 11:12 12/24/16 15:52 12/24/16 20:21 12/24/16 21:13 Range/Units Bedside Glucose 136 153 135 70-90 mg/dl Sodium Level 140 136-145 mmol/L Potassium Level 3.9 3.5-5.1 mmol/L Chloride Level 102 98-107 mmol/L Carbon Dioxide Level 29 21-32 mmol/L Anion Gap 9.0 3-11 mmol/L Blood Urea Nitrogen 99 7-18 mg/dl Creatinine 3.30 0.60-1.20 mg/dl Est Creatinine Clear Calc Drug Dose 24.4 ml/min Estimated GFR () 16.5 Estimated GFR (Non- 14.2 BUN/Creatinine Ratio 30.0 10-20 Random Glucose 114 70-99 mg/dl Calcium Level 8.4 8.5-10.1 mg/dl Magnesium Level 2.3 1.8-2.4 mg/dl Total Creatine Kinase 21 26-192 U/L Creatine Kinase MB 1.4 0.5-3.6 ng/ml Creatine Kinase MB Ratio 6.7 0-3.0 Troponin I < 0.015 0-0.045 ng/ml Test 12/25/16 02:10 12/25/16 06:32 12/25/16 06:36 Range/Units Total Creatine Kinase 19 26-192 U/L Creatine Kinase MB 1.4 0.5-3.6 ng/ml Creatine Kinase MB Ratio 7.4 0-3.0 Troponin I < 0.015 0-0.045 ng/ml Prothrombin Time 14.0 9.0-12.0 SECONDS Prothromb Time International Ratio 1.3 0.9-1.1 Sodium Level 140 136-145 mmol/L Potassium Level 3.6 3.5-5.1 mmol/L Chloride Level 103 98-107 mmol/L Carbon Dioxide Level 27 21-32 mmol/L Anion Gap 10.0 3-11 mmol/L Blood Urea Nitrogen 97 7-18 mg/dl Creatinine 3.10 0.60-1.20 mg/dl Est Creatinine Clear Calc Drug Dose 25.9 ml/min Estimated GFR () 17.8 Estimated GFR (Non- 15.4 BUN/Creatinine Ratio 31.2 10-20 Random Glucose 82 70-99 mg/dl Calcium Level 8.6 8.5-10.1 mg/dl Bedside Glucose 99 70-90 mg/dl
[2016-12-25] MEDS: TIOTROPIUM BROMIDE 5 PUFF/90 MCG INH INH SCH (09:16)
[2016-12-25] MEDS: ALBUMIN 25% 50 ML with FUROSEMIDE INJ 80 MG IV SCH ×6 (09:17→20:50)
[2016-12-25] MEDS: IRON SUCROSE INJ 200 MG in SODIUM CHLORIDE 0.9% 100ML 100 ML IV SCH (10:00)
--- NOTE | 2016-12-25 10:54 | Cardiology Follow-Up ---
Subjective General Date of Service: Dec 25, 2016. Chief Complaint: SOB; CKD; CHF Pt evaluation today including: conversation w/ patient, physical exam, chart review, lab review, review of studies, review of inpatient medication list History of Present Illness Patient awaiting procedure for dialysis cath placement. She believes her LE edema has worsened over the last 24 hours. SOB stable. Denies chest pain. No sense of palpitations, dizziness, syncope or near syncope. No recurrent VT noted since last evening. Dobutamine gtt discontinued. Allergies Coded Allergies: Bacitracin (Verified Allergy, Intermediate, RASH,ITCH, 08/27/16) Celecoxib (Verified Allergy, Intermediate, RASH TO SULFA DRUGS, 08/27/16) Neomycin (Verified Allergy, Intermediate, RASH,ITCH, 08/27/16) Polymyxin B (Verified Allergy, Intermediate, RASH,ITCH, 08/27/16) Sulfa Antibiotics (Verified Allergy, Intermediate, RASH,HAS TAKEN GLIPIZIDE W/O REACTION, 08/27/16) Tigecycline (Verified Adverse Reaction, Severe, MILD PANCREATITIS, ) 61 yo F placed on IV tigecycline for wound infection, after 5-6 days developed decreased appetite, had nonspecific abdominal pain from admission and was refusing to lie back for daily abd assessments because of pain in other areas of abdomen. Decreased appetite persisted, also in context of worsening depression and stated apathy, WBC continued to increase, CT chest revealed n/s changes possibly consistent with mild pancreatitis, lipase drawn and elevated, other causes ruled out, clinical pancreatitis on exam. Diruretics/albumin stopped to avoid further rehydration, tigecycline discontinued, continuing supportive care. Codeine (Verified Adverse Reaction, Intermediate, GI UPSET, 08/27/16) Social History Smoking Status: Former Smoker (lifelong) Hx Tobacco Use In Past Year?: No Hx Alcohol Use - Type And Amou: No Hx Substance Use - Type And Am: No Problem List Medical Problems: (1) FRED (acute kidney injury) Status: Acute (2) CHF (congestive heart failure) Status: Acute (3) Congestive heart failure Status: Acute (4) Congestive heart failure Status: Acute (5) Congestive heart failure Status: Acute (6) Hypoxia Status: Acute (7) Leukocytosis Status: Acute (8) Leukocytosis Status: Acute (9) Low grade fever Status: Acute (10) Low grade fever Status: Acute (11) Rapid atrial fibrillation Status: Acute (12) Rapid atrial fibrillation Status: Acute (13) Renal insufficiency Status: Acute (14) Sepsis Status: Acute (15) Sepsis associated hypotension Status: Acute (16) Severe sepsis with acute organ dysfunction Status: Acute (17) Shortness of breath Status: Acute Review of Systems Respiratory: + dyspnea on exertion, No cough, No dyspnea at rest, No hemoptysis , No shortness of breath, No sputum, No wheezing Cardiac: + edema, No PND, No chest pain, No orthopnea, No palpitations Physical Exam Vital Signs Last Vital Signs Documentation Date Time Temp Pulse Resp B/P Pulse Ox O2 Delivery O2 Flow Rate FiO2 12/25/16 08:00 Nasal Cannula 4.0 12/25/16 07:21 36.6 99 18 131/71 91 Physical Exam Constitutional: General Apperance: well-nourished, well-developed, obese (morbidly) Level of Distress: NAD, acutely ill, chronically ill Psychiatric: Mental Status: active & alert Orientation: to time, to place, to person Eyes: EOM: EOMI Neck: supple, trachea midline Lungs: Auscultation: no rhonchi, deminished air movement, decreased breath sounds Cardiovascular: Apical Impulse: not displaced Heart Auscultation: II/ LINDSAY, irregular rate rhythm Peripheral Pulses: Bruits: none appreciated Carotid Pulse: normal on the left, normal on the right Dorsalis Pedis Pulse: pertinent finding (nonpalpable) Abdomen: Bowel Sounds: normal Inspection & Palpation: soft, non-distended, no tenderness, guarding & rebound Extremities: edema (2+ b/l with chronic stasis changes ) Neurologic: Cranial Nerves: grossly intact Sensation: grossly intact Assessment and Plan Assessment and Plan Assessment: 1. acute on chronic right sided HF 2. acute on chronic renal failure 3. Persistent atrial fibrillation on Coumadin. 4. Hypertension 5. Obesity, pickwickian, respiratory failure 6. Non sustained VT, likely secondary to dobutamine gtt PLAN: Plan for TDC placement today followed by initial dialysis session. Dobutamine gtt discontinued due to non sustained VT. Continue IV diuresis with furosemide, albumin per nephrology hold Coumadin for probable TDC placement. Resume post op. Fluid restrictions encouraged. Continue all other therapies including ASA, metoprolol, atorvastatin. Continue SQ heparin Case discussed with Dr. Santa. Will follow. Agree with above, will follow as dialysis is initiated, no further arrhythmias Alex Santa MD Laboratory Results Last 24 Hours Test 12/24/16 11:12 12/24/16 15:52 12/24/16 20:21 12/24/16 21:13 Bedside Glucose 136 mg/dl 153 mg/dl 135 mg/dl Sodium Level 140 mmol/L Potassium Level 3.9 mmol/L Chloride Level 102 mmol/L Carbon Dioxide Level 29 mmol/L Anion Gap 9.0 mmol/L Blood Urea Nitrogen 99 mg/dl Creatinine 3.30 mg/dl Est Creatinine Clear Calc Drug Dose 24.4 ml/min Estimated GFR () 16.5 Estimated GFR (Non- 14.2 BUN/Creatinine Ratio 30.0 Random Glucose 114 mg/dl Calcium Level 8.4 mg/dl Magnesium Level 2.3 mg/dl Total Creatine Kinase 21 U/L Creatine Kinase MB 1.4 ng/ml Creatine Kinase MB Ratio 6.7 Troponin I < 0.015 ng/ml Test 12/25/16 02:10 12/25/16 06:32 12/25/16 06:36 12/25/16 10:39 Total Creatine Kinase 19 U/L Creatine Kinase MB 1.4 ng/ml Creatine Kinase MB Ratio 7.4 Troponin I < 0.015 ng/ml Prothrombin Time 14.0 SECONDS Prothromb Time International Ratio 1.3 Sodium Level 140 mmol/L Potassium Level 3.6 mmol/L Chloride Level 103 mmol/L Carbon Dioxide Level 27 mmol/L Anion Gap 10.0 mmol/L Blood Urea Nitrogen 97 mg/dl Creatinine 3.10 mg/dl Est Creatinine Clear Calc Drug Dose 25.9 ml/min Estimated GFR () 17.8 Estimated GFR (Non- 15.4 BUN/Creatinine Ratio 31.2 Random Glucose 82 mg/dl Calcium Level 8.6 mg/dl Bedside Glucose 99 mg/dl
[2016-12-25] MEDS ORDERED: MIDAZOLAM HCL 1 MG/ML 2ML VIAL ONE (12:42)
[2016-12-25] MEDS ORDERED: HEPARIN SOD (PORCINE) 5000 UNIT/ML 1 ML VIAL ONE (12:42)
[2016-12-25] MEDS ORDERED: FENTANYL CITRATE INJ 50 MCG/1 ML 2 ML VIAL ONE (12:42)
--- NOTE | 2016-12-25 12:46 | Pharmacy Progress Note ---
Glycemic Control: Progress Nt Date of Service Dec 25, 2016. Scope Glycemic Pharmacist consulted by Dr King on 12/20 for glycemic control and to write orders per [facility] inpatient glycemic control protocol. Objective Accuchecks BSG (last 24hrs): Test 12/24/16 15:52 12/24/16 20:21 12/24/16 21:13 12/25/16 06:32 Bedside Glucose 153 mg/dl (70-90) 135 mg/dl (70-90) Random Glucose 114 mg/dl (70-99) 82 mg/dl (70-99) Test 12/25/16 06:36 12/25/16 11:40 Bedside Glucose 99 mg/dl (70-90) 118 mg/dl (70-90) Laboratory Data (last 24hrs) Test 12/24/16 21:13 12/25/16 06:32 Anion Gap 9.0 mmol/L 10.0 mmol/L BUN/Creatinine Ratio 30.0 31.2 Blood Urea Nitrogen 99 mg/dl 97 mg/dl Creatinine 3.30 mg/dl 3.10 mg/dl Potassium Level 3.9 mmol/L 3.6 mmol/L Sodium Level 140 mmol/L 140 mmol/L HbA1c: Test 12/21/16 04:50 Hemoglobin A1c 8.1 % (4.5-5.6) H Recent Pertinent Medications Outpatient Anti-diabetic Regimen: * Lantus 20 units QAM * Novolog 3 units AC + scale The patient is currently receiving: * Basal insulin: Lantus 6 units this AM, then 10 units daily to start 12/26 * Correctional Insulin: Novolog Correction per scale ACHS Goal Range: Low 110 mg/dL - High 140 mg/dL Correction Factor: 40 mg/dL/unit * Prandial insulin: Per carb ratio of 1 unit per 10 grams CHO consumed Risk Factors for Insulin Resistance: * Steroids: chronic prednisone 5 mg qAM * Pressors: dobutamine now d/c'd * Surgery: POD 0 s/p perm cath placement * Diet: NPO this AM - type 2 diabetes/ low sodium to be resumed postop Assessment & Plan ASSESSMENT: From 12/22/16 note: * Patient is currently receiving an average of 33 units of insulin per day * 12 units of basal insulin * 21 units of prandial/correctional insulin * BSGs ranging 129 - 154 over the past 24hrs * Risk factors for insulin resistance have remained constant over the past 24hrs * Steroid dosing unchanged (home regimen) * Anticipating current insulin regimen to be unchanged for the next 24 hours * Reassess in the AM 12/23/16 * Ms. Blevins rec'd 35 units of insulin yesterday w/ BSGs ranging from 84-246 mg/dL * BSG dropped significantly overnight (246 -> 84) which is most likely a result of the correctional insulin given as fasting BSGs have been good on current basal dose * Will plan to loosen CF to prevent hypoglycemia * In addition, noted that patient apparently had donuts yesterday that were brought in by family members 12/24/16 * Ms. Blevins rec'd 23 units of insulin yesterday with "low" fasting BSG, despite loosened CF * Will plan to reduce Lantus further to 10 units but will start this on 12/26 as pt to be NPO for perm cath placement tomorrow. Will give a further reduced dose of Lantus tomorrow AM for NPO status. 12/25/16 * Ms. Blevins was NPO this AM for a perm cath placement so a reduced dose of Lantus was ordered * Pre-lunch BSG holding steady at 118 * Since her dobutamine has been d/c'd, she may not require as much insulin so will plan to reduce the Lantus dose from tomorrow * CF and CR are already fairly conservative PLAN FOR INPATIENT GLYCEMIC CONTROL: * Decrease Lantus to 10 units daily starting 12/26 * Continue Novolog ACHS * Goal 110-140 mg/dL * CF 40 mg/dL/unit * CR 1 unit per 10 gm CHO consumed * Please note that the plan above was derived based on current level of insulin resistance and hospital stress. These recommendations are appropriate for inpatient admission only. Plan of care upon discharge will need to be reassessed to avoid potential outpatient hypo/hyperglycemia. Thank you.
[2016-12-25] MEDS ORDERED: EPOETIN ALFA 10,000 UNITS/ML VIAL IV. ONE (13:00)
--- NOTE | 2016-12-25 13:11 | Progress Note ---
Progress Note Date of Service Dec 25, 2016. Progress Note Patient for insertion of permcath. I have discussed the risks options and benefits of the procedure with the patient. The patient understands the risks options and benefits and agrees to the procedure. I have examined the patient, reviewed the History & Physical and in the interval since the performance of the History & Physical I have noted the following changes of clinical significance: No changes noted
--- NOTE | 2016-12-25 13:12 | Procedure Note ---
Pre-Mod Sedation Assessment General Date of Moderate Sedation: Dec 25, 2016. Vital Signs: Vital Signs Past 12 Hours Date Time Temp Pulse Resp B/P Pulse Ox O2 Delivery O2 Flow Rate FiO2 12/25/16 12:47 36.6 94 18 118/64 93 Nasal Cannula 4.0 12/25/16 12:00 Nasal Cannula 4.0 12/25/16 11:17 36.6 94 18 118/64 93 Nasal Cannula 4.0 12/25/16 08:00 Nasal Cannula 4.0 12/25/16 07:21 36.6 99 18 131/71 91 Nasal Cannula 4.0 12/25/16 04:00 Nasal Cannula 4.0 12/25/16 03:45 36.3 92 22 118/80 91 CPAP Pre-Sedation Airway Assessment Oral Cavity: Dentures Short Thick Neck: Yes Hx of Sleep Apnea: Yes Smoking Status: Former Smoker Mallampati Classification: Class I ASA Classification: Class II Notes The planned sedation has been discussed with the patient and consent obtained. I have identified the patient, determined the appropriateness of sedation and have assessed the patient immediately prior to the procedure. All medicine(s) and interventions are by my order.
[2016-12-25] MEDS ORDERED: MIDAZOLAM HCL 1 MG/ML 2ML VIAL IV ONE (13:36)
[2016-12-25] MEDS ORDERED: FENTANYL CITRATE INJ 50 MCG/1 ML 2 ML VIAL IV ONE (13:36)
[2016-12-25] MEDS ORDERED: LIDOCAINE HCL 1% 20 ML VIAL SQ ONE (13:36)
[2016-12-25] MEDS ORDERED: HEPARIN SOD (PORCINE) 5000 UNIT/ML 1 ML VIAL IV ONE (13:43)
--- NOTE | 2016-12-25 13:49 | [facility] Post Operative Brief Note ---
Immediate Operative Summary Operative Date Dec 25, 2016. Pre-Operative Diagnosis End stage renal disease Post-Operative Diagnosis Same Procedure(s) Performed Insertion of Perm Catheter, Right Internal Jugular Approach, Ultrasound Localization of Right Internal Jugular Vein, Fluoroscopy for Positioning, Moderate sedation from 1336 - [address] Falk Homebound Teacher Surgeon(s) None Estimated Blood Loss 3 Findings tip in distal SVC Specimens None Anesthesia Local with moderate conscious sedation Complication(s) None Disposition
--- NOTE | 2016-12-25 13:50 | Procedure Note ---
Post-Moderate Sedation Plan General Date of Moderate Sedation Dec 25, 2016. Vital Signs: Vital Signs Past 12 Hours Date Time Temp Pulse Resp B/P Pulse Ox O2 Delivery O2 Flow Rate FiO2 12/25/16 12:47 36.6 94 18 118/64 93 Nasal Cannula 4.0 12/25/16 12:00 Nasal Cannula 4.0 12/25/16 11:17 36.6 94 18 118/64 93 Nasal Cannula 4.0 12/25/16 08:00 Nasal Cannula 4.0 12/25/16 07:21 36.6 99 18 131/71 91 Nasal Cannula 4.0 12/25/16 04:00 Nasal Cannula 4.0 12/25/16 03:45 36.3 92 22 118/80 91 CPAP Review - Discharge Plan Post Moderate Sedation Plan: On clinical assessment, the patient appears to have tolerated the conscious sedation without complications. Patient is recovering as anticipated. Patient will continue to be monitored by nursing and may be discharged when conscious sedation discharge criteria are met.
[2016-12-25] MEDS ORDERED: EPOETIN ALFA INJ 6,000 UNITS in SYRINGE 0 ML IV. SCH (14:00)
--- NOTE | 2016-12-25 14:16 | DIAGNOSTIC IMAGING REPORT ---
DATE OF PROCEDURE: 12/25/2016 PREOPERATIVE DIAGNOSIS: End-stage renal disease. POSTOPERATIVE DIAGNOSIS: Same. PROCEDURE: Insertion of right internal jugular vein PermCath, fluoroscopic imaging for positioning and ultrasound localization of right internal jugular vein. SURGEON: Dr. Falk. ANESTHETIC: Local with conscious sedation, 12 minutes. PROCEDURE INDICATIONS: The patient is a 61-year-old female with end-stage renal disease in need of dialysis. PermCath was recommended. She understood the risks, options and benefits and agreed to have this procedure. DESCRIPTION OF PROCEDURE: The patient was taken to the angio suite and placed in the supine position. After right side of the neck and chest wall were prepped and draped in a sterile manner, local anesthetic was administered. Ultrasound was used to locate the right internal jugular vein. It was of good caliber, compressed easily and was patent. Under direct ultrasound guidance, the right internal jugular vein was punctured and a wire passed centrally under fluoroscopic imaging. The wire passed down into the inferior vena cava from above. A stab wound was made in the anterior chest wall in the subcutaneous tissue. A 19 cm PermCath was then passed from the stab wound in the chest wall to the puncture site in the neck. The puncture site was then dilated until the 14-Vietnamese peel-away sheath was inserted. Once this was in place, the catheter was inserted through the peel-away sheath and the peel-away sheath removed. The tip of the catheter was entered in the distal superior vena cava. The catheter had a nice curve with no kinking. It flushed easily and aspirated well. It was instilled with heparin. Catheter was then sutured in place to the anterior chest wall with nylon sutures. The puncture site in the neck was closed with an interrupted Vicryl suture. Dermabond was used for dressing on the puncture site. The rest of the catheter was then dressed in a sterile manner. The patient left the angio suite in good condition and tolerated the procedure well.
[2016-12-25 14:55] LABS: CALCIUM 9.1 mg/dl (8.5-10.1)
--- NOTE | 2016-12-25 14:57 | Progress Note ---
Subjective Date of Service: Dec 25, 2016. Subjective s/p placement hd access. creat remains elevated. afebrile. off of abx. no micro this admission, undergoing wound care for b/l hip ulcers. remains stable off of abx. wbc improving. Problem List Medical Problems: (1) FRED (acute kidney injury) Status: Acute (2) CHF (congestive heart failure) Status: Acute (3) Congestive heart failure Status: Acute (4) Congestive heart failure Status: Acute (5) Congestive heart failure Status: Acute (6) Hypoxia Status: Acute (7) Leukocytosis Status: Acute (8) Leukocytosis Status: Acute (9) Low grade fever Status: Acute (10) Low grade fever Status: Acute (11) Rapid atrial fibrillation Status: Acute (12) Rapid atrial fibrillation Status: Acute (13) Renal insufficiency Status: Acute (14) Sepsis Status: Acute (15) Sepsis associated hypotension Status: Acute (16) Severe sepsis with acute organ dysfunction Status: Acute (17) Shortness of breath Status: Acute Objective Vital Signs Date Time Temp Pulse Resp B/P Pulse Ox O2 Delivery O2 Flow Rate FiO2 12/25/16 12:47 36.6 94 18 118/64 93 Nasal Cannula 4.0 12/25/16 12:00 Nasal Cannula 4.0 12/25/16 11:17 36.6 94 18 118/64 93 Nasal Cannula 4.0 12/25/16 08:00 Nasal Cannula 4.0 12/25/16 07:21 36.6 99 18 131/71 91 Nasal Cannula 4.0 12/25/16 04:00 Nasal Cannula 4.0 12/25/16 03:45 36.3 92 22 118/80 91 CPAP 12/25/16 00:34 83 94 4.0 12/24/16 23:26 36.3 83 20 101/38 91 Nasal Cannula 4.0 12/24/16 23:00 Nasal Cannula 4.0 12/24/16 20:00 Nasal Cannula 4.0 12/24/16 19:40 36.5 79 17 130/67 94 Nasal Cannula 4.0 12/24/16 16:00 Nasal Cannula 4.0 12/24/16 15:13 36.4 86 15 126/56 94 Nasal Cannula 4.0 Laboratory Results Last 24 Hours Test 12/24/16 15:52 12/24/16 20:21 12/24/16 21:13 12/25/16 02:10 Bedside Glucose 153 mg/dl 135 mg/dl Sodium Level 140 mmol/L Potassium Level 3.9 mmol/L Chloride Level 102 mmol/L Carbon Dioxide Level 29 mmol/L Anion Gap 9.0 mmol/L Blood Urea Nitrogen 99 mg/dl Creatinine 3.30 mg/dl Est Creatinine Clear Calc Drug Dose 24.4 ml/min Estimated GFR () 16.5 Estimated GFR (Non- 14.2 BUN/Creatinine Ratio 30.0 Random Glucose 114 mg/dl Calcium Level 8.4 mg/dl Magnesium Level 2.3 mg/dl Total Creatine Kinase 21 U/L 19 U/L Creatine Kinase MB 1.4 ng/ml 1.4 ng/ml Creatine Kinase MB Ratio 6.7 7.4 Troponin I < 0.015 ng/ml < 0.015 ng/ml Test 12/25/16 06:32 12/25/16 06:36 12/25/16 10:39 12/25/16 11:40 Prothrombin Time 14.0 SECONDS Prothromb Time International Ratio 1.3 Sodium Level 140 mmol/L Potassium Level 3.6 mmol/L Chloride Level 103 mmol/L Carbon Dioxide Level 27 mmol/L Anion Gap 10.0 mmol/L Blood Urea Nitrogen 97 mg/dl Creatinine 3.10 mg/dl Est Creatinine Clear Calc Drug Dose 25.9 ml/min Estimated GFR () 17.8 Estimated GFR (Non- 15.4 BUN/Creatinine Ratio 31.2 Random Glucose 82 mg/dl Calcium Level 8.6 mg/dl Bedside Glucose 99 mg/dl 118 mg/dl Creatine Kinase MB Ratio Assessment and Plan (1) Wound infection Assessment & Plan: has completed multiple weeks of IV abx, currently on hold. continue to hold. continue wound care
[2016-12-25 19:03] LABS: HEPATITIS B AB NEG
[2016-12-26] VITALS (18 sets, daily range): BP systolic 115–142; BP diastolic 59–84; PULSE 79–101; TEMP 36.4–37.4; O2SAT 92–94
[2016-12-26] MEDS: HYDROCODONE/ACETAMOPHEN 5/325MG TAB PO PRN (04:38)
[2016-12-26] MEDS: LEVOTHYROXINE 125 MCG TAB PO SCH (05:49)
[2016-12-26] MEDS: HEPARIN SOD 5000 UNIT/0.5 ML CARP SQ SCH ×3 (05:50→21:01)
[2016-12-26 07:38] LABS: INR 1.4 (0.9-1.1); PROTHROMBIN TIME (PATIENT) 15.5 SECONDS (9.0-12.0)
[2016-12-26] MEDS ORDERED: EPOETIN ALFA 10,000 UNITS/ML VIAL IV. ONE (08:00)
[2016-12-26] MEDS ORDERED: EPOETIN ALFA INJ 6,000 UNITS in SYRINGE 0 ML IV. SCH (08:00)
[2016-12-26 08:20] LABS: CREATININE 2.7 mg/dl (0.60-1.20)
[2016-12-26 08:21] LABS: BUN/CREATININE RATIO 28.4 (10-20); POTASSIUM 4.1 mmol/L (3.5-5.1)
[2016-12-26 08:56] LABS: CALCIUM 9.7 mg/dl (8.5-10.1)
[2016-12-26 09:14] LABS: HEMATOCRIT 33.8 % (37-47); MEAN CELL VOLUME 78.1 fL (80-100); MEAN CORPUSCULAR HEMOGLOBIN 23.1 pg (25-34); MEAN CORPUSCULAR HGB CONC 29.6 g/dl (32-36); MEAN PLATELET VOLUME 9.4 fL (7.4-10.4); PLATELET COUNT 280 K/uL (130-400); RED BLOOD COUNT 4.33 M/uL (4.2-5.4)
--- NOTE | 2016-12-26 09:40 | Progress Note ---
Internal Med Progress Note Date of Service: Dec 26, 2016. Provider Documentation: SUBJECTIVE: Patient is seen and examined at bedside. States having mild soreness at the catheter site. Denies any chest pain, SOB. Planned for HD today. OBJECTIVE: Vital Signs-as noted below Physical Exam: General Appearance:Obese, no apparent distress Head: normocephalic, Atraumatic Eyes: normal inspection, EOMI, PERRL Neck: supple, Trachea midline Respiratory/Chest: Decreased breath sounds, CTA, HD catheter on R chest in bandage. Cardiovascular: Irregularly irregular, No murmur Abdomen/GI:Soft, Non tender, Bowel sounds present, Obese Extremities/Musculoskelatal:Chronic b/l erythema, edema Neurologic/Psych:AAOX3, grossly no focal neurological deficits Skin: Wound Vac present on Left posterior thigh. Chronic buttock wounds Lab data as noted below. ASSESSMENT & PLAN: 61 yr old female with acute RHF exacerbation and FRED: ACUTE ON CHRONIC CHF, RIGHT HEART FAILURE : CARDIORENAL SYNDROME: Patient presented with weight gain of 13 lbs, SOB, increased abdominal girth Not responding to diuresis/dobutamine Continue IV Lasix , Albumin per nephrology S/P IV Dobutamine: discontinued after patient developed NSVT Had Tunneled dialysis catheter placed on 12/25/16 by ECHO:EF 65-70%, Moderate LVH, RA- mild to moderately dilated, Rt Ventricular systolic pressure - severely elevated at >60 mm hg Appreciate cardiology/Nephrology/Vascular surgery help Dialysis per Nephrology FRED ON CKD-IV Baseline around 2, now 2.7 Dialysis per nephrology BILATERAL HIP ULCERATIONS (CHRONICALLY INFECTED-KLEBSIELLA) Patient was on IV antibiotics - senior care due to multi drug resistant klebsiella infection, which was discontinued this admission by ID. Has wound vac Appreciate ID inputs Continue with wound care ANEMIA, SECONDARY TO CKD/IRON DEFICIENCY Hb stable No signs of active bleeding IV Venofer per Nephrology ATRIAL FIBRILLATION Stable Continue Metoprolol Will resume Coumadin Monitor INR:1.4 today CHRONIC HYPOXIC RESPIRATORY FAILURE H/O CHRONIC COPD Stable Continue oxygen support Leukocytosis stable. 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 DVT PX: Heparin SQ till INR therapeutic Also on coumadin CODE STATUS: FULL CODE DISPOSITION Continue monitoring in Tele Vital Signs: Date Time Temp Pulse Resp B/P Pulse Ox O2 Delivery O2 Flow Rate FiO2 12/26/16 08:00 Nasal Cannula 4.0 Humidified Oxygen 12/26/16 04:24 37.1 101 20 115/59 92 Nasal Cannula 4.0 12/26/16 04:00 Nasal Cannula 4.0 Humidified Oxygen 12/26/16 00:00 Nasal Cannula 4.0 Humidified Oxygen 12/25/16 23:44 37.0 96 18 112/67 94 Nasal Cannula 4.0 12/25/16 20:00 Nasal Cannula 4.0 12/25/16 19:05 84 23 114/56 93 Nasal Cannula 4.0 12/25/16 17:15 36.5 84 21 122/69 91 Nasal Cannula 4.0 12/25/16 17:11 Nasal Cannula 4.0 12/25/16 16:56 36.8 90 116/71 12/25/16 16:55 83 123/69 12/25/16 16:30 80 109/66 12/25/16 16:15 93 117/68 12/25/16 15:59 81 117/65 12/25/16 15:31 77 112/64 12/25/16 15:15 76 116/63 12/25/16 15:00 83 119/67 12/25/16 14:45 83 128/64 12/25/16 14:40 36.8 98 108/62 12/25/16 12:47 36.6 94 18 118/64 93 Nasal Cannula 4.0 12/25/16 12:00 Nasal Cannula 4.0 12/25/16 11:17 36.6 94 18 118/64 93 Nasal Cannula 4.0 Lab Results: Results Past 24 Hours Test 12/25/16 10:39 12/25/16 11:40 12/25/16 17:11 12/25/16 17:55 Range/Units Creatine Kinase MB Ratio 0-3.0 Bedside Glucose 118 98 70-90 mg/dl Hepatitis B Surface Antigen NEG NEG Hepatitis B Surface Antibody NEG Test 12/25/16 20:04 12/26/16 06:40 12/26/16 07:15 Range/Units Bedside Glucose 97 110 70-90 mg/dl White Blood Count 13.00 4.8-10.8 K/uL Red Blood Count 4.33 4.2-5.4 M/uL Hemoglobin 10.0 12.0-16.0 g/dL Hematocrit 33.8 37-47 % Mean Corpuscular Volume 78.1 80-100 fL Mean Corpuscular Hemoglobin 23.1 25-34 pg Mean Corpuscular Hemoglobin Concent 29.6 32-36 g/dl RDW Standard Deviation 51.9 36.4-46.3 fL RDW Coefficient of Variation 18.5 11.5-14.5 % Platelet Count 280 130-400 K/uL Mean Platelet Volume 9.4 7.4-10.4 fL Prothrombin Time 15.5 9.0-12.0 SECONDS Prothromb Time International Ratio 1.4 0.9-1.1 Sodium Level 143 136-145 mmol/L Potassium Level 4.1 3.5-5.1 mmol/L Chloride Level 105 98-107 mmol/L Carbon Dioxide Level 28 21-32 mmol/L Anion Gap 10.0 3-11 mmol/L Blood Urea Nitrogen 77 7-18 mg/dl Creatinine 2.70 0.60-1.20 mg/dl Est Creatinine Clear Calc Drug Dose 30.2 ml/min Estimated GFR () 21.0 Estimated GFR (Non- 18.2 BUN/Creatinine Ratio 28.4 10-20 Random Glucose 104 70-99 mg/dl Calcium Level 9.7 8.5-10.1 mg/dl
--- NOTE | 2016-12-26 09:47 | Pharmacy Progress Note ---
Glycemic Control: Progress Nt Date of Service Dec 26, 2016. Scope Glycemic Pharmacist consulted by Dr King on 12/20 for glycemic control and to write orders per [facility] inpatient glycemic control protocol. Objective Accuchecks BSG (last 24hrs): Test 12/25/16 11:40 12/25/16 17:11 12/25/16 20:04 12/26/16 06:40 Bedside Glucose 118 mg/dl (70-90) 98 mg/dl (70-90) 97 mg/dl (70-90) Random Glucose 104 mg/dl (70-99) Test 12/26/16 07:15 Bedside Glucose 110 mg/dl (70-90) Laboratory Data (last 24hrs) Test 12/26/16 06:40 Anion Gap 10.0 mmol/L BUN/Creatinine Ratio 28.4 Blood Urea Nitrogen 77 mg/dl Creatinine 2.70 mg/dl Potassium Level 4.1 mmol/L Sodium Level 143 mmol/L White Blood Count 13.00 K/uL HbA1c: Test 12/21/16 04:50 Hemoglobin A1c 8.1 % (4.5-5.6) H Recent Pertinent Medications Outpatient Anti-diabetic Regimen: * Lantus 20 units QAM * Novolog 3 units AC + scale The patient is currently receiving: * Basal insulin: Lantus 6 units on 12/25, then 10 units daily to start today * Correctional Insulin: Novolog Correction per scale ACHS Goal Range: Low 110 mg/dL - High 140 mg/dL Correction Factor: 40 mg/dL/unit * Prandial insulin: Per carb ratio of 1 unit per 10 grams CHO consumed Risk Factors for Insulin Resistance: * Steroids: chronic prednisone 5 mg qAM * Pressors: dobutamine d/c'd 2 days ago * Surgery: POD 1 s/p perm cath placement * Diet: type 2 diabetes/ low sodium Assessment & Plan ASSESSMENT: 12/23/16 * Ms. Blevins victor manuel'jonna 35 units of insulin yesterday w/ BSGs ranging from 84-246 mg/dL * BSG dropped significantly overnight (246 -> 84) which is most likely a result of the correctional insulin given as fasting BSGs have been good on current basal dose * Will plan to loosen CF to prevent hypoglycemia * In addition, noted that patient apparently had donuts yesterday that were brought in by family members 12/24/16 * Ms. Blevins rec'd 23 units of insulin yesterday with "low" fasting BSG, despite loosened CF * Will plan to reduce Lantus further to 10 units but will start this on 12/26 as pt to be NPO for perm cath placement tomorrow. Will give a further reduced dose of Lantus tomorrow AM for NPO status. 12/25/16 * Ms. Blevins was NPO this AM for a perm cath placement so a reduced dose of Lantus was ordered * Pre-lunch BSG holding steady at 118 * Since her dobutamine has been d/c'd, she may not require as much insulin so will plan to reduce the Lantus dose from tomorrow * CF and CR are already fairly conservative 12/26/16 * Ms. Blevins rec'd 6 units of insulin yesterday (while mostly NPO) with BSGs ranging from 97-118 mg/dL * I had initially planned to cut back the Lantus from 12 -> 10 units but after seeing the BSGs from yesterday, even though she was NPO, and now that she's off the dobutamine, I would like to cut back further to 8 units. Will plan to trial this and reassess daily. PLAN FOR INPATIENT GLYCEMIC CONTROL: * Change Lantus to 8 units daily * Continue Novolog ACHS * Goal 110-140 mg/dL * CF 40 mg/dL/unit * CR 1 unit per 10 gm CHO consumed * Please note that the plan above was derived based on current level of insulin resistance and hospital stress. These recommendations are appropriate for inpatient admission only. Plan of care upon discharge will need to be reassessed to avoid potential outpatient hypo/hyperglycemia. Thank you.
--- NOTE | 2016-12-26 10:19 | Cardiology Follow-Up ---
Subjective General Date of Service: Dec 26, 2016. Chief Complaint: SOB; CKD; CHF History of Present Illness Patient feeling fairly well today. Offers no complaints. Denies chest pain or SOB. Edema improved from yesterday. No dizziness post dialysis. No sense of palpitations. Allergies Coded Allergies: Bacitracin (Verified Allergy, Intermediate, RASH,ITCH, 08/27/16) Celecoxib (Verified Allergy, Intermediate, RASH TO SULFA DRUGS, 08/27/16) Neomycin (Verified Allergy, Intermediate, RASH,ITCH, 08/27/16) Polymyxin B (Verified Allergy, Intermediate, RASH,ITCH, 08/27/16) Sulfa Antibiotics (Verified Allergy, Intermediate, RASH,HAS TAKEN GLIPIZIDE W/O REACTION, 08/27/16) Tigecycline (Verified Adverse Reaction, Severe, MILD PANCREATITIS, ) 61 yo F placed on IV tigecycline for wound infection, after 5-6 days developed decreased appetite, had nonspecific abdominal pain from admission and was refusing to lie back for daily abd assessments because of pain in other areas of abdomen. Decreased appetite persisted, also in context of worsening depression and stated apathy, WBC continued to increase, CT chest revealed n/s changes possibly consistent with mild pancreatitis, lipase drawn and elevated, other causes ruled out, clinical pancreatitis on exam. Diruretics/albumin stopped to avoid further rehydration, tigecycline discontinued, continuing supportive care. Codeine (Verified Adverse Reaction, Intermediate, GI UPSET, 08/27/16) Social History Smoking Status: Former Smoker Hx Tobacco Use In Past Year?: No Hx Alcohol Use - Type And Amou: No Hx Substance Use - Type And Am: Yes (vicodin) Problem List Medical Problems: (1) FRED (acute kidney injury) Status: Acute (2) CHF (congestive heart failure) Status: Acute (3) Congestive heart failure Status: Acute (4) Congestive heart failure Status: Acute (5) Congestive heart failure Status: Acute (6) Hypoxia Status: Acute (7) Leukocytosis Status: Acute (8) Leukocytosis Status: Acute (9) Low grade fever Status: Acute (10) Low grade fever Status: Acute (11) Rapid atrial fibrillation Status: Acute (12) Rapid atrial fibrillation Status: Acute (13) Renal insufficiency Status: Acute (14) Sepsis Status: Acute (15) Sepsis associated hypotension Status: Acute (16) Severe sepsis with acute organ dysfunction Status: Acute (17) Shortness of breath Status: Acute Physical Exam Vital Signs Last Vital Signs Documentation Date Time Temp Pulse Resp B/P Pulse Ox O2 Delivery O2 Flow Rate FiO2 12/26/16 08:00 Nasal Cannula 4.0 Humidified Oxygen 12/26/16 04:24 37.1 101 20 115/59 92 Physical Exam Constitutional: General Apperance: well-nourished, well-developed, obese (morbidly) Level of Distress: NAD, acutely ill, chronically ill Psychiatric: Mental Status: active & alert Orientation: to time, to place, to person Eyes: EOM: EOMI Neck: supple, trachea midline Lungs: Auscultation: no rhonchi, deminished air movement, decreased breath sounds Cardiovascular: Apical Impulse: not displaced Heart Auscultation: II/ LINDSAY, irregular rate rhythm Peripheral Pulses: Bruits: none appreciated Carotid Pulse: normal on the left, normal on the right Dorsalis Pedis Pulse: pertinent finding (nonpalpable) Abdomen: Bowel Sounds: normal Inspection & Palpation: soft, non-distended, no tenderness, guarding & rebound Extremities: edema (2+ b/l with chronic stasis changes ) Neurologic: Cranial Nerves: grossly intact Sensation: grossly intact Assessment and Plan Assessment and Plan Assessment: 1. acute on chronic right sided HF 2. acute on chronic renal failure, now on HD 3. Persistent atrial fibrillation on Coumadin. 4. Hypertension 5. Obesity, pickwickian, respiratory failure 6. Non sustained VT, likely secondary to dobutamine gtt. No recurrence. PLAN Tolerated first dialysis session repeat session today. Catheter site has been bleeding. Hold coumadin. Continue all other therapies including ASA, metoprolol, atorvastatin. Continue SQ heparin Case discussed with Dr. Santa. Will follow. Patient seen and examined Assessment and plan as outlined Alex Santa MD Laboratory Results Last 24 Hours Test 12/25/16 10:39 12/25/16 11:40 12/25/16 17:11 12/25/16 17:55 Creatine Kinase MB Ratio Bedside Glucose 118 mg/dl 98 mg/dl Hepatitis B Surface Antigen NEG Hepatitis B Surface Antibody NEG Test 12/25/16 20:04 12/26/16 06:40 12/26/16 07:15 Bedside Glucose 97 mg/dl 110 mg/dl White Blood Count 13.00 K/uL Red Blood Count 4.33 M/uL Hemoglobin 10.0 g/dL Hematocrit 33.8 % Mean Corpuscular Volume 78.1 fL Mean Corpuscular Hemoglobin 23.1 pg Mean Corpuscular Hemoglobin Concent 29.6 g/dl RDW Standard Deviation 51.9 fL RDW Coefficient of Variation 18.5 % Platelet Count 280 K/uL Mean Platelet Volume 9.4 fL Prothrombin Time 15.5 SECONDS Prothromb Time International Ratio 1.4 Sodium Level 143 mmol/L Potassium Level 4.1 mmol/L Chloride Level 105 mmol/L Carbon Dioxide Level 28 mmol/L Anion Gap 10.0 mmol/L Blood Urea Nitrogen 77 mg/dl Creatinine 2.70 mg/dl Est Creatinine Clear Calc Drug Dose 30.2 ml/min Estimated GFR () 21.0 Estimated GFR (Non- 18.2 BUN/Creatinine Ratio 28.4 Random Glucose 104 mg/dl Calcium Level 9.7 mg/dl
[2016-12-26] MEDS: INSULIN ASPART 100 UNITS/ML 3 ML PEN SC SCH ×3 (10:44→21:00)
[2016-12-26] MEDS: TIOTROPIUM BROMIDE 5 PUFF/90 MCG INH INH SCH (10:46)
[2016-12-26] MEDS: ALBUMIN 25% 50 ML with FUROSEMIDE INJ 80 MG IV SCH ×6 (10:49→21:09)
[2016-12-26] MEDS: ASPIRIN 81 MG ECTAB PO SCH (10:50)
[2016-12-26] MEDS: POTASSIUM CHLORIDE 20 MEQ TABCR PO SCH (10:52)
[2016-12-26] MEDS: ATORVASTATIN 40 MG TAB PO SCH (10:52)
[2016-12-26] MEDS: CEROVITE ADV FORMULA TAB PO SCH (10:53)
[2016-12-26] MEDS: GABAPENTIN 400 MG CAP PO SCH ×2 (10:54→20:58)
[2016-12-26] MEDS: PANTOprazole SOD 40 MG TAB PO SCH (10:55)
[2016-12-26] MEDS: METOPROLOL SUCC 50MG EXT REL TAB PO SCH (10:57)
[2016-12-26] MEDS: CYANOCOBALAMIN 500 MCG TAB (VIT B-12) PO SCH (10:59)
[2016-12-26] MEDS: ASCORBIC ACID 500 MG TAB PO SCH ×2 (11:00→20:58)
[2016-12-26] MEDS: CHOLECALCIFEROL 1000 INTER.UNIT TAB PO SCH (11:01)
[2016-12-26] MEDS: SERTRALINE HCL 100 MG TAB PO SCH (11:02)
[2016-12-26] MEDS: INSULIN GLARGINE SOLOSTAR 100 UNITS/ML 3 ML PEN SC SCH (11:03)
[2016-12-26] MEDS: IRON SUCROSE INJ 200 MG in SODIUM CHLORIDE 0.9% 100ML 100 ML IV SCH (11:03)
[2016-12-26] MEDS: WARFARIN SOD 5 MG TAB PO SCH (16:48)
--- NOTE | 2016-12-26 17:40 | Nephrology Progress Note ---
Nephrology Progress Note Date of Service: Dec 26, 2016. Subjective seen on rounds this am 0900; no complaints; tolerated first gentle HD well; TDC site oozing. no n/v; breathing unchanged Objective Date Time Temp Pulse Resp B/P Pulse Ox O2 Delivery O2 Flow Rate FiO2 12/26/16 17:30 81 127/84 12/26/16 17:15 85 142/68 12/26/16 17:00 93 131/78 12/26/16 16:48 92 128/80 12/26/16 16:33 83 130/77 12/26/16 16:15 79 122/80 12/26/16 15:59 85 121/68 12/26/16 15:53 36.9 85 18 128/70 94 12/26/16 15:30 92 121/69 12/26/16 15:00 91 128/73 12/26/16 14:51 84 130/78 12/26/16 14:50 36.5 86 126/77 12/26/16 12:20 36.4 87 20 125/71 92 Nasal Cannula 4.0 12/26/16 12:00 Nasal Cannula 4.0 Humidified Oxygen 12/26/16 08:00 Nasal Cannula 4.0 Humidified Oxygen 12/26/16 04:24 37.1 101 20 115/59 92 Nasal Cannula 4.0 12/26/16 04:00 Nasal Cannula 4.0 Humidified Oxygen 12/26/16 00:00 Nasal Cannula 4.0 Humidified Oxygen 12/25/16 23:44 37.0 96 18 112/67 94 Nasal Cannula 4.0 12/25/16 20:00 Nasal Cannula 4.0 12/25/16 19:05 84 23 114/56 93 Nasal Cannula 4.0 Physical Exam: GENERAL: Awake, alert, oriented x3, morbidly obese, sitting on side of bed 4L 02nc EYES: No scleral icterus. EARS, NOSE, THROAT: Moist mucous membranes. LUNGS: Clear to auscultation w/ diminished air entry and bases. CARDIAC: HR in 120-130s and distant ABDOMEN: Very large pannus with a wound VAC on the left from previous surgery. delatorre + EXTREMITIES: Bilateral erythematous ++2 indurated edema. NEUROLOGICALLY: laboy/fluent speech, limited insight Current Inpatient Medications Medications (Trade) Dose Ordered Sig/Tyrone Route Start Time Stop Time Status Last Admin Dose Admin Heparin Sodium (Porcine) (Heparin Sq 5000 Unit/0.5ml) 5,000 unit Q8 SQ 12/20/16 22:00 01/19/17 21:59 12/26/16 05:50 5,000 UNIT Glucose (Glucose 40% Gel) 15-30 GRAMS 15 GRAMS... UD PRN PO 12/20/16 12:15 01/19/17 12:14 Glucose (Glucose Chew Tab) 4-8 Tablets 4 Tabl... UD PRN PO 12/20/16 12:15 01/19/17 12:14 Dextrose (Dextrose 50% 50ML Syringe) 25-50ML OF 50% DW IV FOR... UD PRN IV 12/20/16 12:15 01/19/17 12:14 Glucagon (Glucagon Inj) 1 mg UD PRN SQ 12/20/16 12:15 01/19/17 12:14 Miscellaneous Information (Consult Glycemic Management Pharmacy) 1 ea UD PRN N/A 12/20/16 12:16 01/19/17 12:15 Insulin Aspart (novoLOG ASPART) SLIDING SCALE If C... ACHS SC 12/20/16 12:30 01/19/17 12:29 12/26/16 10:44 4 UNITS Albuterol (Ventolin Hfa Inhaler) 2 puffs QID PRN INH 12/20/16 14:15 01/19/17 14:14 12/22/16 09:01 2 PUFFS Ascorbic Acid (Vitamin C Tab) 500 mg BID PO 12/20/16 21:00 01/19/17 20:59 12/26/16 11:00 500 MG Aspirin (Ecotrin Tab) 81 mg DAILY PO 12/21/16 09:00 01/20/17 08:59 12/26/16 10:50 81 MG Atorvastatin Calcium (Lipitor Tab) 40 mg DAILY PO 12/21/16 09:00 01/20/17 08:59 12/26/16 10:52 40 MG Calcitriol (Rocaltrol Cap) 0.25 mcg MoWeFr@0900 PO 12/23/16 09:00 01/22/17 08:59 12/25/16 08:28 0.25 MCG Cholecalciferol (Vitamin D Tab) 2,000 inter.unit DAILY PO 12/21/16 09:00 01/20/17 08:59 12/26/16 11:01 2,000 INTER.UNIT Cyanocobalamin (Vitamin B-12 Tab) 1,000 mcg DAILY PO 12/21/16 09:00 01/20/17 08:59 12/26/16 10:59 1,000 MCG Gabapentin (Neurontin Cap) 400 mg BID PO 12/20/16 21:00 01/19/17 20:59 12/26/16 10:54 400 MG Hydroxyzine HCl (Vistaril Tab) 25 mg Q6H PRN PO 12/20/16 14:15 01/19/17 14:14 12/22/16 08:59 25 MG Levothyroxine Sodium (Synthroid Tab) 125 mcg DAILYBB PO 12/21/16 06:00 01/20/17 05:59 12/26/16 05:49 125 MCG Lorazepam (Ativan Tab) 0.5 mg DAILY PRN PO 12/20/16 14:15 01/19/17 14:14 12/25/16 08:35 0.5 MG Metoprolol Succinate (Toprol Xl Tab) 50 mg DAILY PO 12/21/16 09:00 01/20/17 08:59 12/26/16 10:57 50 MG Miconazole Nitrate (Desenex Powder) 1 appln MoWeFr@0900 EXT 12/23/16 09:00 01/22/17 08:59 12/25/16 08:28 1 APPLN Multivitamins/ Minerals (Multivitamin W/ Minerals Tab) 1 tab DAILY PO 12/21/16 09:00 01/20/17 08:59 12/26/16 10:53 1 TAB Potassium Chloride (Klor-Con Tab) 20 meq DAILY PO 12/21/16 09:00 01/20/17 08:59 12/26/16 10:52 20 MEQ Prednisone (PredniSONE TAB) 5 mg DAILY PO 12/21/16 09:00 01/20/17 08:59 12/26/16 10:55 5 MG Sertraline HCl (Zoloft Tab) 150 mg DAILY PO 12/21/16 09:00 01/20/17 08:59 12/26/16 11:02 150 MG Tiotropium [place] (Spiriva Handihaler Inhaler) 1 puff DAILY INH 12/21/16 09:00 01/20/17 08:59 12/26/16 10:46 1 PUFF Acetaminophen/ Hydrocodone Bitart ([place] 5/325 Tab) one to two tabs as nee... Q6H PRN PO 12/20/16 14:15 01/03/17 14:14 12/26/16 04:38 1 TAB Pantoprazole Sodium (Protonix Tab) 40 mg QAM PO 12/21/16 09:00 01/20/17 08:59 12/26/16 10:55 40 MG Heparin Sodium (Porcine) (Heparin 10 Unit/ ml 5 ml Flush) 5 ml PRN PRN FLUSH 12/22/16 00:45 01/21/17 00:44 Warfarin Sodium 5 mg 5 mg DAILY@16 PO 12/23/16 16:00 01/22/17 15:59 Future hold 12/23/16 17:45 5 MG Furosemide/ Albumin Human (Lasix Inj/ Albumin 25%) 58 ml @ 54 mls/hr TID IV 12/24/16 16:00 01/07/17 15:59 12/26/16 14:29 54 MLS/HR Insulin Glargine (Lantus Solostar Pen) 8 unit QAM SC 12/26/16 09:00 01/25/17 08:59 12/26/16 11:03 8 UNIT Last 24 Hours Test 12/25/16 17:55 12/25/16 20:04 12/26/16 06:40 12/26/16 07:15 Hepatitis B Surface Antigen NEG Hepatitis B Surface Antibody NEG Bedside Glucose 97 mg/dl 110 mg/dl White Blood Count 13.00 K/uL Red Blood Count 4.33 M/uL Hemoglobin 10.0 g/dL Hematocrit 33.8 % Mean Corpuscular Volume 78.1 fL Mean Corpuscular Hemoglobin 23.1 pg Mean Corpuscular Hemoglobin Concent 29.6 g/dl RDW Standard Deviation 51.9 fL RDW Coefficient of Variation 18.5 % Platelet Count 280 K/uL Mean Platelet Volume 9.4 fL Prothrombin Time 15.5 SECONDS Prothromb Time International Ratio 1.4 Sodium Level 143 mmol/L Potassium Level 4.1 mmol/L Chloride Level 105 mmol/L Carbon Dioxide Level 28 mmol/L Anion Gap 10.0 mmol/L Blood Urea Nitrogen 77 mg/dl Creatinine 2.70 mg/dl Est Creatinine Clear Calc Drug Dose 30.2 ml/min Estimated GFR () 21.0 Estimated GFR (Non- 18.2 BUN/Creatinine Ratio 28.4 Random Glucose 104 mg/dl Calcium Level 9.7 mg/dl Test 12/26/16 12:09 12/26/16 16:10 Bedside Glucose 165 mg/dl 149 mg/dl Assessment & Plan 61-year-old female with chronic right heart failure secondary to obesity hypoventilation syndrome, chronic a fib, chronic pannus infections w/ wound vac , chronic volume overload, CKD 4 admitted with FRED on CKD and symptomatic volume overload>>cardiorenal syndrome not responding to diuresis/dobutamine. 1. Acute kidney injury on chronic kidney disease stage IV with uremic symptoms including decreased appetite, pruritus, fatigue, volume overload>>ESRD d/t cardiorenal syndrome >>cont albumin with Lasix today at increased dose (80 mg IV tid) (reached time limit on dobutamine) to help mobilize the third spaced fluid. to start dialysis today or tomorrow -cont fluid limit 1.2L daily though she is not hitting this usually; -daily standing wts appreciated and important in her care -vascular assistance w/ TDC placement aprpeciated -pls arrange chronic dialysis [facility] 2. Anemia of chronic kidney disease. pt has low iron stores >> getting course of venofer and once done / as needed consider Procrit >no heparin w/ HD today d/t oozing from tdc site Appreciate consult.
[2016-12-26] MEDS ORDERED: NURSING VERBAL MED ORDER ONE (19:00)
[2016-12-26] MEDS ORDERED: MoRPHine SULFATE 2 MG/ML CARP IV SCH (19:30)
[2016-12-27] VITALS (27 sets, daily range): BP systolic 83–119; BP diastolic 50–77; PULSE 70–109; TEMP 36.4–36.9; O2SAT 91–96
[2016-12-27 06:08] LABS: BASO % 0.8 %; BASO ABS # 0.13 K/uL (0-0.2); COMPLETE YES; EOS % 7.5 %; HEMATOCRIT 34.6 % (37-47); IG% 1.4 %; LYMPH % 11.4 %; LYMPH ABS # 1.75 K/uL (1.2-3.4); MEAN CELL VOLUME 80.1 fL (80-100); MEAN CORPUSCULAR HEMOGLOBIN 23.4 pg (25-34); MEAN CORPUSCULAR HGB CONC 29.2 g/dl (32-36); MEAN PLATELET VOLUME 9.3 fL (7.4-10.4); MONO % 9.8 %; NEUT % 69.1 %; PLATELET COUNT 242 K/uL (130-400); RED BLOOD COUNT 4.32 M/uL (4.2-5.4)
[2016-12-27] MEDS: HEPARIN SOD 5000 UNIT/0.5 ML CARP SQ SCH ×3 (06:14→21:35)
[2016-12-27 06:19] LABS: INR 1.3 (0.9-1.1); PROTHROMBIN TIME (PATIENT) 14.3 SECONDS (9.0-12.0)
[2016-12-27] MEDS: LEVOTHYROXINE 125 MCG TAB PO SCH (06:19)
[2016-12-27 07:09] LABS: BUN/CREATININE RATIO 23.6 (10-20); CALCIUM 8.9 mg/dl (8.5-10.1); CREATININE 2.4 mg/dl (0.60-1.20); POTASSIUM 4.1 mmol/L (3.5-5.1)
[2016-12-27] MEDS: CYANOCOBALAMIN 500 MCG TAB (VIT B-12) PO SCH (07:36)
[2016-12-27] MEDS: ASPIRIN 81 MG ECTAB PO SCH (07:36)
[2016-12-27] MEDS: GABAPENTIN 400 MG CAP PO SCH ×2 (07:36→20:49)
[2016-12-27] MEDS: METOPROLOL SUCC 50MG EXT REL TAB PO SCH (07:36)
[2016-12-27] MEDS: ATORVASTATIN 40 MG TAB PO SCH (07:36)
[2016-12-27] MEDS: ASCORBIC ACID 500 MG TAB PO SCH ×2 (07:37→20:49)
[2016-12-27] MEDS: CALCITRIOL 0.25 MCG CAP PO SCH (07:37)
[2016-12-27] MEDS: CEROVITE ADV FORMULA TAB PO SCH (07:37)
[2016-12-27] MEDS: SERTRALINE HCL 100 MG TAB PO SCH (07:37)
[2016-12-27] MEDS: POTASSIUM CHLORIDE 20 MEQ TABCR PO SCH (07:38)
[2016-12-27] MEDS: CHOLECALCIFEROL 1000 INTER.UNIT TAB PO SCH (07:38)
[2016-12-27] MEDS: TIOTROPIUM BROMIDE 5 PUFF/90 MCG INH INH SCH (07:39)
[2016-12-27] MEDS: PANTOprazole SOD 40 MG TAB PO SCH (07:39)
[2016-12-27] MEDS: INSULIN ASPART 100 UNITS/ML 3 ML PEN SC SCH ×4 (07:41→20:48)
[2016-12-27] MEDS: INSULIN GLARGINE SOLOSTAR 100 UNITS/ML 3 ML PEN SC SCH (07:42)
[2016-12-27] MEDS: MICONAZOLE NITRATE POWDER 43 GM EXT SCH (07:44)
[2016-12-27] MEDS: HYDROCODONE/ACETAMOPHEN 5/325MG TAB PO PRN ×3 (07:44→22:44)
[2016-12-27] MEDS ORDERED: EPOETIN ALFA 10,000 UNITS/ML VIAL IV. SCH (08:00)
--- NOTE | 2016-12-27 08:23 | Nephrology Progress Note ---
Nephrology Progress Note Date of Service: Dec 27, 2016. Subjective 61 yo female with now esrd and undergoing dialysis. tolerating it well. oob to chair. has chronic wound vac. pt came from [facility] but hoping to be discharged home when stable. appetite is good. no sob. Objective Date Time Temp Pulse Resp B/P Pulse Ox O2 Delivery O2 Flow Rate FiO2 12/27/16 04:00 91 Nasal Cannula 4.0 12/27/16 03:30 36.9 100 20 115/66 91 Nasal Cannula 4.0 12/27/16 00:00 94 12/26/16 23:32 37.4 98 20 125/63 94 Nasal Cannula 4.0 12/26/16 20:00 92 Nasal Cannula 4.0 12/26/16 19:52 36.4 98 24 139/72 92 Nasal Cannula 4.0 12/26/16 18:15 36.5 80 139/77 12/26/16 17:30 81 127/84 12/26/16 17:15 85 142/68 12/26/16 17:00 93 131/78 12/26/16 16:48 92 128/80 12/26/16 16:33 83 130/77 12/26/16 16:15 79 122/80 12/26/16 16:00 Nasal Cannula 4.0 12/26/16 15:59 85 121/68 12/26/16 15:53 36.9 85 18 128/70 94 12/26/16 15:30 92 121/69 12/26/16 15:00 91 128/73 12/26/16 14:51 84 130/78 12/26/16 14:50 36.5 86 126/77 12/26/16 12:20 36.4 87 20 125/71 92 Nasal Cannula 4.0 12/26/16 12:00 Nasal Cannula 4.0 Humidified Oxygen Physical Exam: General-aaox3, obese Eyes-no scleral icterus ENT-mmm Neck-supple Lungs-cta Heart-rrr Abdomen-bs+ +pannus, +wound vac Extremities-+2 hard non-pitting edema Neuro-nonfocal Current Inpatient Medications Medications (Trade) Dose Ordered Sig/Tyrone Route Start Time Stop Time Status Last Admin Dose Admin Heparin Sodium (Porcine) (Heparin Sq 5000 Unit/0.5ml) 5,000 unit Q8 SQ 12/20/16 22:00 5/7/17 21:59 12/27/16 06:14 5,000 UNIT Glucose (Glucose 40% Gel) 15-30 GRAMS 15 GRAMS... UD PRN PO 12/20/16 12:15 01/19/17 12:14 Glucose (Glucose Chew Tab) 4-8 Tablets 4 Tabl... UD PRN PO 12/20/16 12:15 01/19/17 12:14 Dextrose (Dextrose 50% 50ML Syringe) 25-50ML OF 50% DW IV FOR... UD PRN IV 12/20/16 12:15 01/19/17 12:14 Glucagon (Glucagon Inj) 1 mg UD PRN SQ 12/20/16 12:15 01/19/17 12:14 Miscellaneous Information (Consult Glycemic Management Pharmacy) 1 ea UD PRN N/A 12/20/16 12:16 01/19/17 12:15 Insulin Aspart (novoLOG ASPART) SLIDING SCALE If C... ACHS SC 12/20/16 12:30 01/19/17 12:29 12/27/16 07:41 5 UNITS Albuterol (Ventolin Hfa Inhaler) 2 puffs QID PRN INH 12/20/16 14:15 01/19/17 14:14 12/22/16 09:01 2 PUFFS Ascorbic Acid (Vitamin C Tab) 500 mg BID PO 12/20/16 21:00 01/19/17 20:59 12/27/16 07:37 500 MG Aspirin (Ecotrin Tab) 81 mg DAILY PO 12/21/16 09:00 01/20/17 08:59 12/27/16 07:36 81 MG Atorvastatin Calcium (Lipitor Tab) 40 mg DAILY PO 12/21/16 09:00 01/20/17 08:59 12/27/16 07:36 40 MG Calcitriol (Rocaltrol Cap) 0.25 mcg MoWeFr@0900 PO 12/23/16 09:00 01/22/17 08:59 12/27/16 07:37 0.25 MCG Cholecalciferol (Vitamin D Tab) 2,000 inter.unit DAILY PO 12/21/16 09:00 01/20/17 08:59 12/27/16 07:38 2,000 INTER.UNIT Cyanocobalamin (Vitamin B-12 Tab) 1,000 mcg DAILY PO 12/21/16 09:00 01/20/17 08:59 12/27/16 07:36 1,000 MCG Gabapentin (Neurontin Cap) 400 mg BID PO 12/20/16 21:00 01/19/17 20:59 12/27/16 07:36 400 MG Hydroxyzine HCl (Vistaril Tab) 25 mg Q6H PRN PO 12/20/16 14:15 01/19/17 14:14 12/22/16 08:59 25 MG Levothyroxine Sodium (Synthroid Tab) 125 mcg DAILYBB PO 12/21/16 06:00 01/20/17 05:59 12/27/16 06:19 125 MCG Lorazepam (Ativan Tab) 0.5 mg DAILY PRN PO 12/20/16 14:15 01/19/17 14:14 12/25/16 08:35 0.5 MG Metoprolol Succinate (Toprol Xl Tab) 50 mg DAILY PO 12/21/16 09:00 01/20/17 08:59 12/27/16 07:36 50 MG Miconazole Nitrate (Desenex Powder) 1 appln MoWeFr@0900 EXT 12/23/16 09:00 01/22/17 08:59 12/27/16 07:44 1 APPLN Multivitamins/ Minerals (Multivitamin W/ Minerals Tab) 1 tab DAILY PO 12/21/16 09:00 01/20/17 08:59 12/27/16 07:37 1 TAB Potassium Chloride (Klor-Con Tab) 20 meq DAILY PO 12/21/16 09:00 01/20/17 08:59 12/27/16 07:38 20 MEQ Prednisone (PredniSONE TAB) 5 mg DAILY PO 12/21/16 09:00 01/20/17 08:59 12/27/16 07:37 5 MG Sertraline HCl (Zoloft Tab) 150 mg DAILY PO 12/21/16 09:00 01/20/17 08:59 12/27/16 07:37 150 MG Tiotropium [place] (Spiriva Handihaler Inhaler) 1 puff DAILY INH 12/21/16 09:00 01/20/17 08:59 12/27/16 07:39 1 PUFF Acetaminophen/ Hydrocodone Bitart ([place] 5/325 Tab) one to two tabs as nee... Q6H PRN PO 12/20/16 14:15 01/03/17 14:14 12/27/16 07:44 2 TAB Pantoprazole Sodium (Protonix Tab) 40 mg QAM PO 12/21/16 09:00 01/20/17 08:59 12/27/16 07:39 40 MG Heparin Sodium (Porcine) (Heparin 10 Unit/ ml 5 ml Flush) 5 ml PRN PRN FLUSH 12/22/16 00:45 01/21/17 00:44 12/26/16 21:48 5 ML Warfarin Sodium 5 mg 5 mg DAILY@16 PO 12/23/16 16:00 01/22/17 15:59 Future hold 12/23/16 17:45 5 MG Furosemide/ Albumin Human (Lasix Inj/ Albumin 25%) 58 ml @ 54 mls/hr TID IV 12/24/16 16:00 01/07/17 15:59 12/26/16 21:09 54 MLS/HR Insulin Glargine (Lantus Solostar Pen) 8 unit QAM SC 12/26/16 09:00 01/25/17 08:59 12/27/16 07:42 8 UNIT Epoetin Faisal (Procrit Inj) 10,000 units TODAY@0800 IV. 12/27/16 08:00 12/27/16 18:00 Heparin Sodium (Porcine) (No Heparin In Dialysis) 1 ea TODAY@0800 N/A 12/27/16 08:00 12/27/16 18:00 Last 24 Hours Test 12/26/16 12:09 12/26/16 16:10 12/26/16 20:27 12/27/16 05:39 Bedside Glucose 165 mg/dl 149 mg/dl 171 mg/dl White Blood Count 15.30 K/uL Red Blood Count 4.32 M/uL Hemoglobin 10.1 g/dL Hematocrit 34.6 % Mean Corpuscular Volume 80.1 fL Mean Corpuscular Hemoglobin 23.4 pg Mean Corpuscular Hemoglobin Concent 29.2 g/dl Platelet Count 242 K/uL Mean Platelet Volume 9.3 fL Neutrophils (%) (Auto) 69.1 % Lymphocytes (%) (Auto) 11.4 % Monocytes (%) (Auto) 9.8 % Eosinophils (%) (Auto) 7.5 % Basophils (%) (Auto) 0.8 % Neutrophils # (Auto) 10.56 K/uL Lymphocytes # (Auto) 1.75 K/uL Monocytes # (Auto) 1.50 K/uL Eosinophils # (Auto) 1.14 K/uL Basophils # (Auto) 0.13 K/uL RDW Standard Deviation 52.9 fL RDW Coefficient of Variation 18.8 % Immature Granulocyte % (Auto) 1.4 % Immature Granulocyte # (Auto) 0.22 K/uL Prothrombin Time 14.3 SECONDS Prothromb Time International Ratio 1.3 Sodium Level 142 mmol/L Potassium Level 4.1 mmol/L Chloride Level 106 mmol/L Carbon Dioxide Level 24 mmol/L Anion Gap 12.0 mmol/L Blood Urea Nitrogen 57 mg/dl Creatinine 2.40 mg/dl Est Creatinine Clear Calc Drug Dose 33.5 ml/min Estimated GFR () 24.3 Estimated GFR (Non- 20.9 BUN/Creatinine Ratio 23.6 Random Glucose 115 mg/dl Calcium Level 8.9 mg/dl Test 12/27/16 07:21 Bedside Glucose 141 mg/dl Assessment & Plan ESRD-for dialysis today and will plan on dialysis again tomorrow and friday. slowly removing fluids. lungs cta. pt says she prefers to go to [facility].
[2016-12-27] MEDS: ALBUMIN 25% 50 ML with FUROSEMIDE INJ 80 MG IV SCH ×6 (09:09→20:50)
--- NOTE | 2016-12-27 10:28 | Progress Note ---
Internal Med Progress Note Date of Service: Dec 27, 2016. Provider Documentation: SUBJECTIVE: Patient is seen and examined at bedside. Currently getting HD. States still having mild soreness at the catheter site but bleeding stopped. Denies any chest pain, SOB. OBJECTIVE: Vital Signs-as noted below Physical Exam: General Appearance:Obese, no apparent distress Head: normocephalic, Atraumatic Eyes: normal inspection, EOMI, PERRL Neck: supple, Trachea midline Respiratory/Chest: Decreased breath sounds, CTA, HD catheter on R chest in bandage. Cardiovascular: Irregularly irregular, No murmur Abdomen/GI:Soft, Non tender, Bowel sounds present, Obese Extremities/Musculoskelatal:Chronic b/l erythema, edema Neurologic/Psych:AAOX3, grossly no focal neurological deficits Skin: Wound Vac present on Left posterior thigh. Chronic buttock wounds Lab data as noted below. ASSESSMENT & PLAN: 61 yr old female with acute RHF exacerbation and FRED: ACUTE ON CHRONIC CHF, RIGHT HEART FAILURE : CARDIORENAL SYNDROME: Patient presented with weight gain of 13 lbs, SOB, increased abdominal girth Not responding to diuresis/dobutamine Continue IV Lasix , Albumin per nephrology S/P IV Dobutamine: discontinued after patient developed NSVT Had Tunneled dialysis catheter placed on 12/25/16 by ECHO:EF 65-70%, Moderate LVH, RA- mild to moderately dilated, Rt Ventricular systolic pressure - severely elevated at >60 mm hg Appreciate cardiology/Nephrology/Vascular surgery help Dialysis per Nephrology, currently getting HD today FRED ON CKD-IV Baseline around 2, now 2.4 Dialysis per nephrology BILATERAL HIP ULCERATIONS (CHRONICALLY INFECTED-KLEBSIELLA) Patient was on IV antibiotics - buttermaker continuous churn due to multi drug resistant klebsiella infection, which was discontinued this admission by ID. Has wound vac Appreciate ID inputs Continue with wound care ANEMIA, SECONDARY TO CKD/IRON DEFICIENCY Hb stable No signs of active bleeding from catheter site today IV Venofer per Nephrology ATRIAL FIBRILLATION Stable Continue Metoprolol Plan to resume Coumadin today Monitor INR:1.3 today CHRONIC HYPOXIC RESPIRATORY FAILURE H/O CHRONIC COPD Stable Continue oxygen support Leukocytosis stable. on Prednisone (takes for arthritis per patient since years ) S/P MECHANICAL FALL WITH RIGHT KNEE SPRAIN Improving Consider x ray if no improvement PT/OT DM II: Continue with ISS, Lantus DEPRESSION: Stable Continue zoloft HYPOTHYROIDISM Continue levothyroxine MORBID OBESITY BMI:51.5 DVT PX: Heparin SQ till INR therapeutic Also on coumadin CODE STATUS: FULL CODE DISPOSITION Continue monitoring in Tele Vital Signs: Date Time Temp Pulse Resp B/P Pulse Ox O2 Delivery O2 Flow Rate FiO2 12/27/16 08:00 36.8 82 20 119/68 92 Nasal Cannula 4.0 12/27/16 08:00 94 12/27/16 04:00 91 Nasal Cannula 4.0 12/27/16 03:30 36.9 100 20 115/66 91 Nasal Cannula 4.0 12/27/16 00:00 94 12/26/16 23:32 37.4 98 20 125/63 94 Nasal Cannula 4.0 12/26/16 20:00 92 Nasal Cannula 4.0 12/26/16 19:52 36.4 98 24 139/72 92 Nasal Cannula 4.0 12/26/16 18:15 36.5 80 139/77 12/26/16 17:30 81 127/84 12/26/16 17:15 85 142/68 12/26/16 17:00 93 131/78 12/26/16 16:48 92 128/80 12/26/16 16:33 83 130/77 12/26/16 16:15 79 122/80 12/26/16 16:00 Nasal Cannula 4.0 12/26/16 15:59 85 121/68 12/26/16 15:53 36.9 85 18 128/70 94 12/26/16 15:30 92 121/69 12/26/16 15:00 91 128/73 12/26/16 14:51 84 130/78 12/26/16 14:50 36.5 86 126/77 12/26/16 12:20 36.4 87 20 125/71 92 Nasal Cannula 4.0 12/26/16 12:00 Nasal Cannula 4.0 Humidified Oxygen Lab Results: Results Past 24 Hours Test 12/26/16 12:09 12/26/16 16:10 12/26/16 20:27 12/27/16 05:39 Range/Units Bedside Glucose 165 149 171 70-90 mg/dl White Blood Count 15.30 4.8-10.8 K/uL Red Blood Count 4.32 4.2-5.4 M/uL Hemoglobin 10.1 12.0-16.0 g/dL Hematocrit 34.6 37-47 % Mean Corpuscular Volume 80.1 80-100 fL Mean Corpuscular Hemoglobin 23.4 25-34 pg Mean Corpuscular Hemoglobin Concent 29.2 32-36 g/dl Platelet Count 242 130-400 K/uL Mean Platelet Volume 9.3 7.4-10.4 fL Neutrophils (%) (Auto) 69.1 % Lymphocytes (%) (Auto) 11.4 % Monocytes (%) (Auto) 9.8 % Eosinophils (%) (Auto) 7.5 % Basophils (%) (Auto) 0.8 % Neutrophils # (Auto) 10.56 1.4-6.5 K/uL Lymphocytes # (Auto) 1.75 1.2-3.4 K/uL Monocytes # (Auto) 1.50 0.11-0.59 K/uL Eosinophils # (Auto) 1.14 0-0.5 K/uL Basophils # (Auto) 0.13 0-0.2 K/uL RDW Standard Deviation 52.9 36.4-46.3 fL RDW Coefficient of Variation 18.8 11.5-14.5 % Immature Granulocyte % (Auto) 1.4 % Immature Granulocyte # (Auto) 0.22 0.00-0.02 K/uL Prothrombin Time 14.3 9.0-12.0 SECONDS Prothromb Time International Ratio 1.3 0.9-1.1 Sodium Level 142 136-145 mmol/L Potassium Level 4.1 3.5-5.1 mmol/L Chloride Level 106 98-107 mmol/L Carbon Dioxide Level 24 21-32 mmol/L Anion Gap 12.0 3-11 mmol/L Blood Urea Nitrogen 57 7-18 mg/dl Creatinine 2.40 0.60-1.20 mg/dl Est Creatinine Clear Calc Drug Dose 33.5 ml/min Estimated GFR () 24.3 Estimated GFR (Non- 20.9 BUN/Creatinine Ratio 23.6 10-20 Random Glucose 115 70-99 mg/dl Calcium Level 8.9 8.5-10.1 mg/dl Test 12/27/16 07:21 Range/Units Bedside Glucose 141 70-90 mg/dl
--- NOTE | 2016-12-27 11:03 | Cardiology Follow-Up ---
Subjective General Date of Service: Dec 27, 2016. Chief Complaint: SOB; CKD; CHF Pt evaluation today including: conversation w/ patient, physical exam, chart review, lab review, review of studies, review of inpatient medication list History of Present Illness Patient evaluated during dialysis treatment. Appears to be tolerating well. Offers no complaints. Denies chest pain or SOB. Allergies Coded Allergies: Bacitracin (Verified Allergy, Intermediate, RASH,ITCH, 08/27/16) Celecoxib (Verified Allergy, Intermediate, RASH TO SULFA DRUGS, 08/27/16) Neomycin (Verified Allergy, Intermediate, RASH,ITCH, 08/27/16) Polymyxin B (Verified Allergy, Intermediate, RASH,ITCH, 08/27/16) Sulfa Antibiotics (Verified Allergy, Intermediate, RASH,HAS TAKEN GLIPIZIDE W/O REACTION, 08/27/16) Tigecycline (Verified Adverse Reaction, Severe, MILD PANCREATITIS, ) 61 yo F placed on IV tigecycline for wound infection, after 5-6 days developed decreased appetite, had nonspecific abdominal pain from admission and was refusing to lie back for daily abd assessments because of pain in other areas of abdomen. Decreased appetite persisted, also in context of worsening depression and stated apathy, WBC continued to increase, CT chest revealed n/s changes possibly consistent with mild pancreatitis, lipase drawn and elevated, other causes ruled out, clinical pancreatitis on exam. Diruretics/albumin stopped to avoid further rehydration, tigecycline discontinued, continuing supportive care. Codeine (Verified Adverse Reaction, Intermediate, GI UPSET, 08/27/16) Social History Smoking Status: Former Smoker Hx Tobacco Use In Past Year?: No Hx Alcohol Use - Type And Amou: No Hx Substance Use - Type And Am: Yes (vicodin) Problem List Medical Problems: (1) FRED (acute kidney injury) Status: Acute (2) CHF (congestive heart failure) Status: Acute (3) Congestive heart failure Status: Acute (4) Congestive heart failure Status: Acute (5) Congestive heart failure Status: Acute (6) Hypoxia Status: Acute (7) Leukocytosis Status: Acute (8) Leukocytosis Status: Acute (9) Low grade fever Status: Acute (10) Low grade fever Status: Acute (11) Rapid atrial fibrillation Status: Acute (12) Rapid atrial fibrillation Status: Acute (13) Renal insufficiency Status: Acute (14) Sepsis Status: Acute (15) Sepsis associated hypotension Status: Acute (16) Severe sepsis with acute organ dysfunction Status: Acute (17) Shortness of breath Status: Acute Review of Systems Respiratory: No cough, No dyspnea at rest, No hemoptysis, No shortness of breath, No sputum, No wheezing Cardiac: No PND, No chest pain, No edema, No orthopnea, No palpitations Physical Exam Vital Signs Last Vital Signs Documentation Date Time Temp Pulse Resp B/P Pulse Ox O2 Delivery O2 Flow Rate FiO2 12/27/16 08:00 36.8 82 20 119/68 92 Nasal Cannula 4.0 Physical Exam Constitutional: General Apperance: well-nourished, well-developed, obese (morbidly) Level of Distress: NAD, acutely ill, chronically ill Psychiatric: Mental Status: active & alert Orientation: to time, to place, to person Eyes: EOM: EOMI Neck: supple, trachea midline Lungs: Auscultation: no rhonchi, deminished air movement, decreased breath sounds Cardiovascular: Apical Impulse: not displaced Heart Auscultation: II/ LINDSAY, irregular rate rhythm Peripheral Pulses: Bruits: none appreciated Carotid Pulse: normal on the left, normal on the right Dorsalis Pedis Pulse: pertinent finding (nonpalpable) Abdomen: Bowel Sounds: normal Inspection & Palpation: soft, non-distended, no tenderness, guarding & rebound Extremities: edema (2+ b/l with chronic stasis changes ) Neurologic: Cranial Nerves: grossly intact Sensation: grossly intact Assessment and Plan Assessment and Plan Assessment: 1. acute on chronic right sided HF 2. acute on chronic renal failure, now on HD 3. Persistent atrial fibrillation on Coumadin. 4. Hypertension 5. Obesity, pickwickian, respiratory failure 6. Non sustained VT, likely secondary to dobutamine gtt. No recurrence. PLAN Continue dialysis and fluid removal per nephrology. Resume Coumadin. Will need f/u with PT/INR on discharge. Continue all other therapies including ASA, metoprolol, atorvastatin. Continue SQ heparin while INR subtherapeutic. Stable cardiac signs/symptoms. Will sign off. Please notify telecommunications analyst physician with additional questions or concerns. Agree with assessment and plan as above. Cardiac issues addressed Alex Santa MD Laboratory Results Last 24 Hours Test 12/26/16 12:09 12/26/16 16:10 12/26/16 20:27 12/27/16 05:39 Bedside Glucose 165 mg/dl 149 mg/dl 171 mg/dl White Blood Count 15.30 K/uL Red Blood Count 4.32 M/uL Hemoglobin 10.1 g/dL Hematocrit 34.6 % Mean Corpuscular Volume 80.1 fL Mean Corpuscular Hemoglobin 23.4 pg Mean Corpuscular Hemoglobin Concent 29.2 g/dl Platelet Count 242 K/uL Mean Platelet Volume 9.3 fL Neutrophils (%) (Auto) 69.1 % Lymphocytes (%) (Auto) 11.4 % Monocytes (%) (Auto) 9.8 % Eosinophils (%) (Auto) 7.5 % Basophils (%) (Auto) 0.8 % Neutrophils # (Auto) 10.56 K/uL Lymphocytes # (Auto) 1.75 K/uL Monocytes # (Auto) 1.50 K/uL Eosinophils # (Auto) 1.14 K/uL Basophils # (Auto) 0.13 K/uL RDW Standard Deviation 52.9 fL RDW Coefficient of Variation 18.8 % Immature Granulocyte % (Auto) 1.4 % Immature Granulocyte # (Auto) 0.22 K/uL Prothrombin Time 14.3 SECONDS Prothromb Time International Ratio 1.3 Sodium Level 142 mmol/L Potassium Level 4.1 mmol/L Chloride Level 106 mmol/L Carbon Dioxide Level 24 mmol/L Anion Gap 12.0 mmol/L Blood Urea Nitrogen 57 mg/dl Creatinine 2.40 mg/dl Est Creatinine Clear Calc Drug Dose 33.5 ml/min Estimated GFR () 24.3 Estimated GFR (Non- 20.9 BUN/Creatinine Ratio 23.6 Random Glucose 115 mg/dl Calcium Level 8.9 mg/dl Test 12/27/16 07:21 Bedside Glucose 141 mg/dl
--- NOTE | 2016-12-27 11:35 | Pharmacy Progress Note ---
Glycemic Control: Progress Nt Date of Service Dec 27, 2016. Scope Glycemic Pharmacist consulted by Dr King on 12/20/16 for glycemic control and to write orders per [facility] inpatient glycemic control protocol. Objective Accuchecks BSG (last 24hrs): Test 12/26/16 12:09 12/26/16 16:10 12/26/16 20:27 12/27/16 05:39 Bedside Glucose 165 mg/dl (70-90) 149 mg/dl (70-90) 171 mg/dl (70-90) Random Glucose 115 mg/dl (70-99) Test 12/27/16 07:21 Bedside Glucose 141 mg/dl (70-90) Laboratory Data (last 24hrs) Test 12/27/16 05:39 Anion Gap 12.0 mmol/L BUN/Creatinine Ratio 23.6 Blood Urea Nitrogen 57 mg/dl Creatinine 2.40 mg/dl Potassium Level 4.1 mmol/L Sodium Level 142 mmol/L White Blood Count 15.30 K/uL Red Blood Count 4.32 M/uL Hemoglobin 10.1 g/dL Hematocrit 34.6 % Mean Corpuscular Volume 80.1 fL Mean Corpuscular Hemoglobin 23.4 pg Mean Corpuscular Hemoglobin Concent 29.2 g/dl Platelet Count 242 K/uL Mean Platelet Volume 9.3 fL Neutrophils (%) (Auto) 69.1 % Lymphocytes (%) (Auto) 11.4 % Monocytes (%) (Auto) 9.8 % Eosinophils (%) (Auto) 7.5 % Basophils (%) (Auto) 0.8 % Neutrophils # (Auto) 10.56 K/uL Lymphocytes # (Auto) 1.75 K/uL Monocytes # (Auto) 1.50 K/uL Eosinophils # (Auto) 1.14 K/uL Basophils # (Auto) 0.13 K/uL HbA1c: Test 12/21/16 04:50 Hemoglobin A1c 8.1 % (4.5-5.6) H Recent Pertinent Medications Outpatient Anti-diabetic Regimen: * Lantus 20 units Q AM * Novolog 3 units w/ meals + sliding scale * A1c = 8 % 12/02/16 The patient is currently receiving: * Basal insulin: Lantus 8 units every 24 hours - dosed in the AM * Correctional Insulin: Novolog Correction per scale ACHS Goal Range: Low 110 mg/dL - High 140 mg/dL Correction Factor: 40 mg/dL/unit * Prandial insulin: Per carb ratio of 1 unit per 10 grams CHO consumed * Oral Agents: None currently Risk Factors for Insulin Resistance: * Steroids: Prednisone 5mg PO daily (home dose) * Infection: n/a * Pressors: n/a * IVF: being diuresed * Recent Surgery: POD # 2 s/p perm cath * Diet: ordered T2DM / Low Na diet; she did tolerate her diet this AM * Mechanical Ventilation: n/a Assessment & Plan ASSESSMENT: 12/23/16 * Ms. Blevins rec'd 35 units of insulin yesterday w/ BSGs ranging from 84-246 mg/dL * BSG dropped significantly overnight (246 -> 84) which is most likely a result of the correctional insulin given as fasting BSGs have been good on current basal dose * Will plan to loosen CF to prevent hypoglycemia * In addition, noted that patient apparently had donuts yesterday that were brought in by family members 12/24/16 * Ms. Blevins rec'd 23 units of insulin yesterday with "low" fasting BSG, despite loosened CF * Will plan to reduce Lantus further to 10 units but will start this on 12/26 as pt to be NPO for perm cath placement tomorrow. Will give a further reduced dose of Lantus tomorrow AM for NPO status. 12/25/16 * Ms. Blevins was NPO this AM for a perm cath placement so a reduced dose of Lantus was ordered * Pre-lunch BSG holding steady at 118 * Since her dobutamine has been d/c'd, she may not require as much insulin so will plan to reduce the Lantus dose from tomorrow * CF and CR are already fairly conservative 12/26/16 * Ms. Blevins rec'd 6 units of insulin yesterday (while mostly NPO) with BSGs ranging from 97-118 mg/dL * I had initially planned to cut back the Lantus from 12 -> 10 units but after seeing the BSGs from yesterday, even though she was NPO, and now that she's off the dobutamine, I would like to cut back further to 8 units. Will plan to trial this and reassess daily. 12/27/16 * BSGs have ranged 141-165 over the last 24 hours * Fasting BSG trending upward the last 3 days on reduced doses of Lantus; today' s FBS of 141 still acceptable however - will continue the current Lantus dose for now, but may need to increase this dose in the future if this trend continues * The current CF and CR are reasonable. However this patient's diet had been poor the last 2 days, so we really were not able to evaluate the CR well. Will follow post-prandial BSGs today and adjust if warranted. * Patient does have orders for HD today which can lead to increased insulin sensitivity PLAN FOR INPATIENT GLYCEMIC CONTROL: * Continuing Lantus 8 units SQ Q AM - reeval tomorrow * Continuing correction factor 40 mg/dl/unit * Continuing carb ratio 1 unit per 10 grams CHO consumed * Continuing goal range Low 110 mg/dL - High 140 mg/dL RECOMMENDATIONS FOR DISCHARGE: * * Please note that the plan above was derived based on current level of insulin resistance and hospital stress. These recommendations are appropriate for inpatient admission only. Plan of care upon discharge will need to be reassessed to avoid potential outpatient hypo/hyperglycemia. Thank you.
[2016-12-27] MEDS: WARFARIN SOD 5 MG TAB PO SCH (16:01)
[2016-12-28] VITALS (12 sets, daily range): BP systolic 110–132; BP diastolic 61–67; PULSE 82–98; TEMP 36.3–37; O2SAT 91–96
[2016-12-28] MEDS: LEVOTHYROXINE 125 MCG TAB PO SCH (05:18)
[2016-12-28] MEDS: HYDROCODONE/ACETAMOPHEN 5/325MG TAB PO PRN ×2 (05:18→20:52)
[2016-12-28] MEDS: HEPARIN SOD 5000 UNIT/0.5 ML CARP SQ SCH ×3 (05:20→22:27)
[2016-12-28 06:21] LABS: INR 1.2 (0.9-1.1); PROTHROMBIN TIME (PATIENT) 13.4 SECONDS (9.0-12.0)
[2016-12-28] MEDS: INSULIN ASPART 100 UNITS/ML 3 ML PEN SC SCH ×4 (08:11→20:54)
[2016-12-28] MEDS: INSULIN GLARGINE SOLOSTAR 100 UNITS/ML 3 ML PEN SC SCH (08:12)
[2016-12-28] MEDS: TIOTROPIUM BROMIDE 5 PUFF/90 MCG INH INH SCH (08:15)
[2016-12-28] MEDS: PANTOprazole SOD 40 MG TAB PO SCH (08:16)
[2016-12-28] MEDS: CHOLECALCIFEROL 1000 INTER.UNIT TAB PO SCH (08:16)
[2016-12-28] MEDS: ASCORBIC ACID 500 MG TAB PO SCH ×2 (08:16→20:51)
[2016-12-28] MEDS: GABAPENTIN 400 MG CAP PO SCH ×2 (08:17→20:51)
[2016-12-28] MEDS: METOPROLOL SUCC 50MG EXT REL TAB PO SCH (08:17)
[2016-12-28] MEDS: CEROVITE ADV FORMULA TAB PO SCH (08:17)
[2016-12-28] MEDS: ASPIRIN 81 MG ECTAB PO SCH (08:17)
[2016-12-28] MEDS: POTASSIUM CHLORIDE 20 MEQ TABCR PO SCH (08:17)
[2016-12-28] MEDS: SERTRALINE HCL 100 MG TAB PO SCH (08:17)
[2016-12-28] MEDS: CYANOCOBALAMIN 500 MCG TAB (VIT B-12) PO SCH (08:17)
[2016-12-28] MEDS: ATORVASTATIN 40 MG TAB PO SCH (08:17)
[2016-12-28] MEDS: ALBUMIN 25% 50 ML with FUROSEMIDE INJ 80 MG IV SCH ×6 (10:11→21:04)
[2016-12-28 10:20] LABS: BUN/CREATININE RATIO 14.7 (10-20); CREATININE 2.4 mg/dl (0.60-1.20)
--- NOTE | 2016-12-28 10:24 | Progress Note ---
Internal Med Progress Note Date of Service: Dec 28, 2016. Provider Documentation: SUBJECTIVE: Patient is seen and examined at bedside. States having persistent right thigh pain. Denies any bleeding from Tunneled catheter site. Denies any chest pain, SOB. Offers no other complaints. OBJECTIVE: Vital Signs-as noted below Physical Exam: General Appearance:Obese, no apparent distress Head: normocephalic, Atraumatic Eyes: normal inspection, EOMI, PERRL Neck: supple, Trachea midline Respiratory/Chest: Decreased breath sounds, CTA, HD catheter on R chest in bandage. Cardiovascular: Irregularly irregular, No murmur Abdomen/GI:Soft, Non tender, Bowel sounds present, Obese Extremities/Musculoskelatal:Chronic b/l erythema, edema Neurologic/Psych:AAOX3, grossly no focal neurological deficits Skin: Wound Vac present on Left posterior thigh. Chronic buttock wounds Lab data as noted below. ASSESSMENT & PLAN: 61 yr old female with acute RHF exacerbation and FRED: ACUTE ON CHRONIC CHF, RIGHT HEART FAILURE : CARDIORENAL SYNDROME: Patient presented with weight gain of 13 lbs, SOB, increased abdominal girth Not responding to diuresis/dobutamine Continue IV Lasix , Albumin per nephrology S/P IV Dobutamine: discontinued after patient developed NSVT Had Tunneled dialysis catheter placed on 12/25/16 by ECHO:EF 65-70%, Moderate LVH, RA- mild to moderately dilated, Rt Ventricular systolic pressure - severely elevated at >60 mm hg Appreciate cardiology/Nephrology/Vascular surgery help Dialysis per Nephrology. Planned for HD today and Friday. 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 Has wound vac Appreciate ID inputs Continue with wound care ANEMIA, SECONDARY TO CKD/IRON DEFICIENCY Hb stable Bleeding from catheter site resolved IV Venofer per Nephrology ATRIAL FIBRILLATION Stable Continue Metoprolol Continue Coumadin 5mg today Monitor INR:1.2 today On Heparin SQ till INR therapeutic Takes 2.5mg coumadin daily at home CHRONIC HYPOXIC RESPIRATORY FAILURE H/O CHRONIC COPD Stable Continue oxygen support Leukocytosis stable. on Prednisone (takes for arthritis per patient since years ) S/P MECHANICAL FALL WITH RIGHT KNEE SPRAIN Persistent right LE pain Will get Right LE x ray PT/OT DM II: Continue with ISS, Lantus DEPRESSION: Stable Continue zoloft HYPOTHYROIDISM Continue levothyroxine MORBID OBESITY BMI:51.5 DVT PX: Heparin SQ till INR therapeutic Also on coumadin CODE STATUS: FULL CODE DISPOSITION Continue monitoring in Tele Vital Signs: Date Time Temp Pulse Resp B/P Pulse Ox O2 Delivery O2 Flow Rate FiO2 12/28/16 07:45 36.4 98 20 132/62 93 Nasal Cannula 4.0 12/28/16 04:03 94 Nasal Cannula 4.0 12/28/16 04:02 37.0 89 18 118/62 95 CPAP 12/28/16 00:32 94 Nasal Cannula 4.0 12/27/16 23:53 36.5 87 20 108/56 95 CPAP 12/27/16 23:30 91 93 4.0 12/27/16 20:26 94 Nasal Cannula 4.0 12/27/16 19:39 36.8 88 22 109/62 95 Nasal Cannula 4.0 12/27/16 16:25 94 Nasal Cannula 4.0 12/27/16 15:52 36.5 109 22 104/62 93 Nasal Cannula 4.0 12/27/16 12:41 36.5 99 102/60 12/27/16 12:15 87 83/58 12/27/16 12:12 36.4 100 18 97/53 96 Nasal Cannula 12/27/16 12:00 84 96/50 12/27/16 12:00 94 12/27/16 11:45 70 103/64 12/27/16 11:30 85 97/57 12/27/16 11:15 74 91/58 12/27/16 11:00 87 98/59 12/27/16 10:45 84 90/54 Lab Results: Results Past 24 Hours Test 12/27/16 11:29 12/27/16 16:07 12/27/16 20:27 12/28/16 05:38 Range/Units Bedside Glucose 130 160 106 70-90 mg/dl Hemoglobin 9.7 12.0-16.0 g/dL Hematocrit 34.0 37-47 % Prothrombin Time 13.4 9.0-12.0 SECONDS Prothromb Time International Ratio 1.2 0.9-1.1 Test 12/28/16 07:01 12/28/16 09:10 Range/Units Bedside Glucose 122 70-90 mg/dl Sodium Level 139 136-145 mmol/L Potassium Level 4.0 3.5-5.1 mmol/L Chloride Level 103 98-107 mmol/L Carbon Dioxide Level 29 21-32 mmol/L Anion Gap 7.0 3-11 mmol/L Blood Urea Nitrogen 35 7-18 mg/dl Creatinine 2.40 0.60-1.20 mg/dl Est Creatinine Clear Calc Drug Dose 33.4 ml/min Estimated GFR () 24.3 Estimated GFR (Non- 20.9 BUN/Creatinine Ratio 14.7 10-20 Random Glucose 148 70-99 mg/dl Calcium Level 9.0 8.5-10.1 mg/dl
--- NOTE | 2016-12-28 11:39 | DIAGNOSTIC IMAGING REPORT ---
RIGHT FEMUR 2 VIEWS ROUTINE CLINICAL HISTORY: Leg pain Right COMPARISON STUDY: Right femur 08/10/2016. FINDINGS: Mild osteoarthritis at the right hip. The visualized pelvic bones are intact. No fracture or dislocation within the right femur. Vascular calcifications are noted. Soft tissue swelling within the mid to distal thigh. IMPRESSION: Soft tissue swelling within the mid to distal thigh. No fractures within the right femur. Electronically signed by: Jordon Littlejohn M.D. 12/28/2016 11:37 AM Dictated Date/Time: 12/28/2016 11:35 AM
--- NOTE | 2016-12-28 11:40 | DIAGNOSTIC IMAGING REPORT ---
RIGHT KNEE 2 VIEWS HISTORY: knee pain Right COMPARISON: None. FINDINGS: There is no fracture or dislocation. Diffuse soft tissue swelling. No significant knee effusion. Severe osteoarthritis at the medial compartment with [id number] articulation. IMPRESSION: Severe medial osteoarthritis. Diffuse soft tissue swelling. No fractures. Electronically signed by: Jordon Littlejohn M.D. 12/28/2016 11:38 AM Dictated Date/Time: 12/28/2016 11:37 AM
[2016-12-28] MEDS: WARFARIN SOD 5 MG TAB PO SCH (16:54)
[2016-12-29] VITALS (9 sets, daily range): BP systolic 110–126; BP diastolic 56–74; PULSE 77–107; TEMP 36.3–37.1; O2SAT 91–96
[2016-12-29] MEDS: LEVOTHYROXINE 125 MCG TAB PO SCH (06:17)
[2016-12-29] MEDS: HEPARIN SOD 5000 UNIT/0.5 ML CARP SQ SCH ×3 (06:18→21:16)
[2016-12-29 06:32] LABS: INR 1.2 (0.9-1.1); PROTHROMBIN TIME (PATIENT) 13.3 SECONDS (9.0-12.0)
[2016-12-29 07:32] LABS: HEMATOCRIT 33.2 % (37-47); MEAN CELL VOLUME 79.8 fL (80-100); MEAN CORPUSCULAR HEMOGLOBIN 22.8 pg (25-34); MEAN CORPUSCULAR HGB CONC 28.6 g/dl (32-36); PLATELET COUNT 228 K/uL (130-400); RED BLOOD COUNT 4.16 M/uL (4.2-5.4); WHITE BLOOD COUNT 14.53 K/uL (4.8-10.8)
[2016-12-29] MEDS: INSULIN ASPART 100 UNITS/ML 3 ML PEN SC SCH ×4 (07:41→21:15)
[2016-12-29] MEDS: HYDROCODONE/ACETAMOPHEN 5/325MG TAB PO PRN ×2 (07:43→21:47)
[2016-12-29] MEDS ORDERED: ALTEPLASE, RECOMBINANT 1 MG/ML 2 ML VIAL IV ONE (09:00)
--- NOTE | 2016-12-29 09:06 | Pharmacy Progress Note ---
Glycemic: Assessment & Plan Date of Service Dec 29, 2016. Assessment & Plan Recent Pertinent Medications Outpatient Anti-diabetic Regimen: * Lantus 20 units SQ Q AM * NovoLog 3 units w/ meals + sliding scale * A1c = 8 % 12/02/16 The patient is currently receiving: * Basal insulin: Lantus 8 units every 24 hours - dosed in the AM * Correctional Insulin: NovoLog Correction per scale AC/HS Goal Range: Low 110 mg/dL - High 140 mg/dL Correction Factor: 40 mg/dL/unit * Prandial insulin: Per carb ratio of 1 unit per 10 grams CHO consumed Risk Factors for Insulin Resistance: * Steroids: Prednisone 5mg PO daily (home dose) * IVF: being diuresed * Recent Surgery: POD # 4 s/p perm cath * Diet: ordered T2DM / Low Na diet; tolerating well per carbohydrate counts Assessment & Plan ASSESSMENT: 12/23/16 * Ms. Blevins rec'd 35 units of insulin yesterday w/ BSGs ranging from 84-246 mg/dL * BSG dropped significantly overnight (246 -> 84) which is most likely a result of the correctional insulin given as fasting BSGs have been good on current basal dose * Will plan to loosen CF to prevent hypoglycemia * In addition, noted that patient apparently had donuts yesterday that were brought in by family members 12/25/16 * Ms. Blevins was NPO this AM for a perm cath placement so a reduced dose of Lantus was ordered * Pre-lunch BSG holding steady at 118 * Since her dobutamine has been d/c'd, she may not require as much insulin so will plan to reduce the Lantus dose from tomorrow * CF and CR are already fairly conservative 12/27/16 * BSGs have ranged 141-165 over the last 24 hours * Fasting BSG trending upward the last 3 days on reduced doses of Lantus; today' s FBS of 141 still acceptable however - will continue the current Lantus dose for now, but may need to increase this dose in the future if this trend continues * The current CF and CR are reasonable. However this patient's diet had been poor the last 2 days, so we really were not able to evaluate the CR well. Will follow post-prandial BSGs today and adjust if warranted. * Patient does have orders for HD today which can lead to increased insulin sensitivity 12/29/16 * Fasting BSGs have been within goal with 8 units of basal insulin ordered * continue same at this time as it appears to be meeting her inpatient needs * NovoLog parameters have been producing appropriate postprandial BSGs * continue same correction factor and carb ratio * In house insulin requirements lower than outpatient doses * ~22-23u/day while admitted PLAN FOR INPATIENT GLYCEMIC CONTROL: * Continuing Lantus 8 units SQ Q AM * Continuing correction factor 40 mg/dl/unit * Continuing carb ratio 1 unit per 10 grams CHO consumed * Continuing goal range Low 110 mg/dL - High 140 mg/dL RECOMMENDATIONS FOR DISCHARGE: * Likely, Ms Blevins can continue her home regimen at discharge * Please note that the plan above was derived based on current level of insulin resistance and hospital stress. These recommendations are appropriate for inpatient admission only. Plan of care upon discharge will need to be reassessed to avoid potential outpatient hypo/hyperglycemia. Thank you.
--- NOTE | 2016-12-29 09:20 | Progress Note ---
Internal Med Progress Note Date of Service: Dec 29, 2016. Provider Documentation: SUBJECTIVE: Patient is seen and examined at bedside. Complains of R thigh pain. Denies any chest pain, SOB. Offers no other complaints. OBJECTIVE: Vital Signs-as noted below Physical Exam: General Appearance:Obese, no apparent distress Head: normocephalic, Atraumatic Eyes: normal inspection, EOMI, PERRL Neck: supple, Trachea midline Respiratory/Chest: Normal breath sounds, CTA, HD catheter on R chest in bandage. Cardiovascular: Irregularly irregular, No murmur Abdomen/GI:Soft, Non tender, Bowel sounds present, Obese Extremities/Musculoskelatal:Chronic b/l erythema, edema Neurologic/Psych:AAOX3, grossly no focal neurological deficits Skin: Wound Vac present on Left posterior thigh. Chronic buttock wounds Lab data as noted below. ASSESSMENT & PLAN: 61 yr old female with acute RHF exacerbation and FRED: ACUTE ON CHRONIC CHF, RIGHT HEART FAILURE : CARDIORENAL SYNDROME: Patient presented with weight gain of 13 lbs, SOB, increased abdominal girth Not responding to diuresis/dobutamine Continue IV Lasix , Albumin per nephrology S/P IV Dobutamine: discontinued after patient developed NSVT Had Tunneled dialysis catheter placed on 12/25/16 by ECHO:EF 65-70%, Moderate LVH, RA- mild to moderately dilated, Rt Ventricular systolic pressure - severely elevated at >60 mm hg Appreciate cardiology/Nephrology/Vascular surgery help Dialysis per Nephrology. Planned for HD tomorrow. FRED ON CKD-IV Baseline around 2, now 2.4 Dialysis per nephrology Resolved BILATERAL HIP ULCERATIONS (CHRONICALLY INFECTED-KLEBSIELLA) Patient was on IV antibiotics - senior living due to multi drug resistant klebsiella infection, which was discontinued this admission by ID. Has wound vac Appreciate ID inputs Continue with wound care ANEMIA, SECONDARY TO CKD/IRON DEFICIENCY Hb stable Bleeding from catheter site resolved IV Venofer per Nephrology ATRIAL FIBRILLATION Stable Continue Metoprolol Continue Coumadin 7mg today Monitor INR:1.2 today On Heparin SQ till INR therapeutic Takes 2.5mg coumadin daily at home CHRONIC HYPOXIC RESPIRATORY FAILURE H/O CHRONIC COPD Stable Continue oxygen support Leukocytosis stable. on Prednisone (takes for arthritis per patient since years ) S/P MECHANICAL FALL WITH RIGHT KNEE SPRAIN Imaging RLE: Soft tissue swelling RLE USD:pending PT/OT DM II: Continue with ISS, Lantus DEPRESSION: Stable Continue zoloft HYPOTHYROIDISM Continue levothyroxine MORBID OBESITY BMI:51.5 DVT PX: Heparin SQ till INR therapeutic Also on coumadin CODE STATUS: FULL CODE DISPOSITION Continue monitoring in Tele Needs Rehab placement media services director consulted Vital Signs: Date Time Temp Pulse Resp B/P Pulse Ox O2 Delivery O2 Flow Rate FiO2 12/29/16 07:54 37.1 107 20 123/74 93 Nasal Cannula 4.0 12/29/16 04:02 36.9 84 18 124/64 94 CPAP 12/29/16 04:00 CPAP 12/29/16 00:00 CPAP 12/28/16 23:42 36.4 85 16 124/67 95 CPAP 12/28/16 23:19 90 96 4.0 12/28/16 20:00 Nasal Cannula 4.0 12/28/16 19:17 36.6 84 20 110/64 92 Nasal Cannula 4.0 12/28/16 16:00 93 Nasal Cannula 4.0 12/28/16 14:59 37.0 84 18 112/61 91 Nasal Cannula 4.0 12/28/16 12:00 93 Nasal Cannula 4.0 12/28/16 11:32 36.3 82 20 112/62 95 Nasal Cannula 4.0 Lab Results: Results Past 24 Hours Test 12/28/16 11:30 12/28/16 16:03 12/28/16 20:46 12/29/16 06:16 Range/Units Bedside Glucose 133 163 164 70-90 mg/dl White Blood Count 14.53 4.8-10.8 K/uL Red Blood Count 4.16 4.2-5.4 M/uL Hemoglobin 9.5 12.0-16.0 g/dL Hematocrit 33.2 37-47 % Mean Corpuscular Volume 79.8 80-100 fL Mean Corpuscular Hemoglobin 22.8 25-34 pg Mean Corpuscular Hemoglobin Concent 28.6 32-36 g/dl RDW Standard Deviation 52.6 36.4-46.3 fL RDW Coefficient of Variation 19.6 11.5-14.5 % Platelet Count 228 130-400 K/uL Mean Platelet Volume 9.0 7.4-10.4 fL Prothrombin Time 13.3 9.0-12.0 SECONDS Prothromb Time International Ratio 1.2 0.9-1.1 Test 12/29/16 06:56 Range/Units Bedside Glucose 120 70-90 mg/dl
[2016-12-29] MEDS: TIOTROPIUM BROMIDE 5 PUFF/90 MCG INH INH SCH (09:47)
[2016-12-29] MEDS: ALBUMIN 25% 50 ML with FUROSEMIDE INJ 80 MG IV SCH ×6 (09:50→21:13)
[2016-12-29] MEDS: ASPIRIN 81 MG ECTAB PO SCH (09:50)
[2016-12-29] MEDS: POTASSIUM CHLORIDE 20 MEQ TABCR PO SCH (09:51)
[2016-12-29] MEDS: GABAPENTIN 400 MG CAP PO SCH ×2 (09:51→21:14)
[2016-12-29] MEDS: ATORVASTATIN 40 MG TAB PO SCH (09:51)
[2016-12-29] MEDS: METOPROLOL SUCC 50MG EXT REL TAB PO SCH (09:52)
[2016-12-29] MEDS: CEROVITE ADV FORMULA TAB PO SCH (09:52)
[2016-12-29] MEDS: CYANOCOBALAMIN 500 MCG TAB (VIT B-12) PO SCH (09:52)
[2016-12-29] MEDS: CHOLECALCIFEROL 1000 INTER.UNIT TAB PO SCH (09:53)
[2016-12-29] MEDS: PANTOprazole SOD 40 MG TAB PO SCH (09:53)
[2016-12-29] MEDS: ASCORBIC ACID 500 MG TAB PO SCH ×2 (09:54→21:13)
[2016-12-29] MEDS: SERTRALINE HCL 100 MG TAB PO SCH (09:54)
[2016-12-29] MEDS: INSULIN GLARGINE SOLOSTAR 100 UNITS/ML 3 ML PEN SC SCH (09:57)
--- NOTE | 2016-12-29 10:58 | DIAGNOSTIC IMAGING REPORT ---
ULTRASOUND RIGHT THIGH NONVASCULAR CLINICAL HISTORY: Right thigh swelling. COMPARISON STUDY: Radiographs of the right femur dated 12/28/2016. FINDINGS: Real-time, grayscale, and color flow sonography of the soft tissues of the right thigh is performed at the indicated site of interest. Subcutaneous soft tissue edema is noted at this site. No organized fluid collection or mass lesion is seen. IMPRESSION: Soft tissue edema is noted in the right thigh at the indicated site of interest. No organized fluid collection is seen. Electronically signed by: Preet Akbar M.D. 12/29/2016 10:55 AM Dictated Date/Time: 12/29/2016 10:54 AM
--- NOTE | 2016-12-29 12:26 | PROGRESS NOTE ---
DATE: 12/29/2016 SUBJECTIVE: Overnight, no new issues. She had dialysis last time on Friday. We do not have any new issues. She continues to be massively edematous/anasarca. OBJECTIVE: VITAL SIGNS: Blood pressure is 123/74, 93% on 4 liters nasal cannula, pulse rate 84 per minute, temperature 37.1. Her urine output is very low. Yesterday in 24 hours she only made 100 mL of urine. GENERAL: Awake, alert, oriented x3. Massively obese. HEENT: Mucous membranes moist. NECK: Supple. LUNGS: Decreased breath sounds, but clear. CARDIOVASCULAR: Regular rate and rhythm, very distant heart sounds. ABDOMEN: Morbidly obese. EXTREMITIES: 4+ edema extending entire body. LABORATORY TESTS: From this morning, hemoglobin 9.5, platelet count 228, BUN 35, creatinine 2.4. Sodium 139, potassium 4.0. ASSESSMENT AND PLAN: 1. End-stage renal disease. 2. Massively edematous/anasarca/fluid overload. PLAN: She will get dialysis tomorrow again and possibly the day after also. Although her numbers do not look too bad,She has massive fluid retention and we will remove as much as we can with dialysis. She is not making any meaningful amount of urine without dialysis despite IV Lasix. JUAN ANTONIO
[2016-12-29] MEDS ORDERED: WARFARIN TAB 5 MG, WARFARIN TAB 2 MG PO SCH ×2 (16:00)
[2016-12-29] MEDS ORDERED: WARFARIN SOD 5 MG TAB PO SCH (16:00)
[2016-12-30] VITALS (22 sets, daily range): BP systolic 91–130; BP diastolic 45–77; PULSE 73–112; TEMP 36.4–37; O2SAT 90–95
[2016-12-30] MEDS: HYDROCODONE/ACETAMOPHEN 5/325MG TAB PO PRN ×4 (05:47→22:12)
[2016-12-30] MEDS: LEVOTHYROXINE 125 MCG TAB PO SCH (05:49)
[2016-12-30] MEDS: HEPARIN SOD 5000 UNIT/0.5 ML CARP SQ SCH ×3 (05:49→21:42)
[2016-12-30 06:15] LABS: INR 1.2 (0.9-1.1); PROTHROMBIN TIME (PATIENT) 13.2 SECONDS (9.0-12.0)
[2016-12-30 06:27] LABS: BUN/CREATININE RATIO 13.9 (10-20); CALCIUM 9.2 mg/dl (8.5-10.1); CREATININE 3.1 mg/dl (0.60-1.20); MAGNESIUM 2.2 mg/dl (1.8-2.4); POTASSIUM 4.4 mmol/L (3.5-5.1)
--- NOTE | 2016-12-30 06:37 | Nephrology Progress Note ---
Nephrology Progress Note Date of Service: Dec 30, 2016. Subjective 61 yo female with esrd and undergoing dialysis. has chronic wound vac. pt with pain in her right leg. pt also with productive cough with yellow sputum. no fevers or chills. Objective Date Time Temp Pulse Resp B/P Pulse Ox O2 Delivery O2 Flow Rate FiO2 12/30/16 04:00 CPAP 4.0 12/30/16 03:00 36.4 87 20 130/74 95 CPAP 12/30/16 00:00 CPAP 4.0 12/29/16 23:20 36.3 79 18 110/56 94 CPAP 12/29/16 23:20 77 93 4.0 12/29/16 20:00 Nasal Cannula 4.0 12/29/16 19:08 36.6 78 19 117/63 91 Nasal Cannula 4.0 12/29/16 16:00 93 Nasal Cannula 4.0 12/29/16 14:57 36.6 82 20 126/72 91 Nasal Cannula 4.0 12/29/16 12:00 93 Nasal Cannula 4.0 12/29/16 11:32 36.5 84 20 114/66 96 Nasal Cannula 4.0 12/29/16 08:00 93 Nasal Cannula 4.0 12/29/16 07:54 37.1 107 20 123/74 93 Nasal Cannula 4.0 Physical Exam: General-aaox3, obese Eyes-no scleral icterus ENT-mmm Neck-supple Lungs-clear Heart-regular Abdomen-bs+ +pannus, +wound vac Extremities-+1 hard non-pitting edema with chronic venous stasis changes Neuro-nonfocal Current Inpatient Medications Medications (Trade) Dose Ordered Sig/Tyrone Route Start Time Stop Time Status Last Admin Dose Admin Heparin Sodium (Porcine) (Heparin Sq 5000 Unit/0.5ml) 5,000 unit Q8 SQ 12/20/16 22:00 01/19/17 21:59 12/30/16 05:49 5,000 UNIT Glucose (Glucose 40% Gel) 15-30 GRAMS 15 GRAMS... UD PRN PO 12/20/16 12:15 01/19/17 12:14 Glucose (Glucose Chew Tab) 4-8 Tablets 4 Tabl... UD PRN PO 12/20/16 12:15 01/19/17 12:14 Dextrose (Dextrose 50% 50ML Syringe) 25-50ML OF 50% DW IV FOR... UD PRN IV 12/20/16 12:15 01/19/17 12:14 Glucagon (Glucagon Inj) 1 mg UD PRN SQ 12/20/16 12:15 01/19/17 12:14 Miscellaneous Information (Consult Glycemic Management Pharmacy) 1 ea UD PRN N/A 12/20/16 12:16 01/19/17 12:15 Insulin Aspart (novoLOG ASPART) SLIDING SCALE If C... ACHS SC 12/20/16 12:30 01/19/17 12:29 12/29/16 21:15 2 UNITS Albuterol (Ventolin Hfa Inhaler) 2 puffs QID PRN INH 12/20/16 14:15 01/19/17 14:14 12/22/16 09:01 2 PUFFS Ascorbic Acid (Vitamin C Tab) 500 mg BID PO 12/20/16 21:00 01/19/17 20:59 12/29/16 21:13 500 MG Aspirin (Ecotrin Tab) 81 mg DAILY PO 12/21/16 09:00 01/20/17 08:59 12/29/16 09:50 81 MG Atorvastatin Calcium (Lipitor Tab) 40 mg DAILY PO 12/21/16 09:00 01/20/17 08:59 12/29/16 09:51 40 MG Calcitriol (Rocaltrol Cap) 0.25 mcg MoWeFr@0900 PO 12/23/16 09:00 01/22/17 08:59 12/27/16 07:37 0.25 MCG Cholecalciferol (Vitamin D Tab) 2,000 inter.unit DAILY PO 12/21/16 09:00 01/20/17 08:59 12/29/16 09:53 2,000 INTER.UNIT Cyanocobalamin (Vitamin B-12 Tab) 1,000 mcg DAILY PO 12/21/16 09:00 01/20/17 08:59 12/29/16 09:52 1,000 MCG Gabapentin (Neurontin Cap) 400 mg BID PO 12/20/16 21:00 01/19/17 20:59 12/29/16 21:14 400 MG Hydroxyzine HCl (Vistaril Tab) 25 mg Q6H PRN PO 4/7/17 14:15 01/19/17 14:14 12/22/16 08:59 25 MG Levothyroxine Sodium (Synthroid Tab) 125 mcg DAILYBB PO 12/21/16 06:00 01/20/17 05:59 12/30/16 05:49 125 MCG Lorazepam (Ativan Tab) 0.5 mg DAILY PRN PO 12/20/16 14:15 01/19/17 14:14 12/25/16 08:35 0.5 MG Metoprolol Succinate (Toprol Xl Tab) 50 mg DAILY PO 12/21/16 09:00 01/20/17 08:59 12/29/16 09:52 50 MG Miconazole Nitrate (Desenex Powder) 1 appln MoWeFr@0900 EXT 12/23/16 09:00 01/22/17 08:59 12/27/16 07:44 1 APPLN Multivitamins/ Minerals (Multivitamin W/ Minerals Tab) 1 tab DAILY PO 12/21/16 09:00 01/20/17 08:59 12/29/16 09:52 1 TAB Potassium Chloride (Klor-Con Tab) 20 meq DAILY PO 12/21/16 09:00 01/20/17 08:59 12/29/16 09:51 20 MEQ Prednisone (PredniSONE TAB) 5 mg DAILY PO 12/21/16 09:00 01/20/17 08:59 12/29/16 09:52 5 MG Sertraline HCl (Zoloft Tab) 150 mg DAILY PO 12/21/16 09:00 01/20/17 08:59 12/29/16 09:54 150 MG Tiotropium Gypsum (Spiriva Handihaler Inhaler) 1 puff DAILY INH 12/21/16 09:00 01/20/17 08:59 12/29/16 09:47 1 PUFF Acetaminophen/ Hydrocodone Bitart (Ostrander 5/325 Tab) one to two tabs as nee... Q6H PRN PO 12/20/16 14:15 01/03/17 14:14 12/30/16 05:56 2 TAB Pantoprazole Sodium (Protonix Tab) 40 mg QAM PO 12/21/16 09:00 01/20/17 08:59 12/29/16 09:53 40 MG Heparin Sodium (Porcine) 5 ml 5 ml PRN PRN FLUSH 12/22/16 00:45 01/21/17 00:44 12/29/16 12:28 5 ML Furosemide/ Albumin Human (Lasix Inj/ Albumin 25%) 58 ml @ 54 mls/hr TID IV 12/24/16 16:00 01/07/17 15:59 12/29/16 21:13 54 MLS/HR Insulin Glargine (Lantus Solostar Pen) 8 unit QAM SC 12/26/16 09:00 01/25/17 08:59 12/29/16 09:57 8 UNIT Warfarin Sodium/ Warfarin Sodium (Coumadin Tab/ Coumadin Tab) 7 mg DAILY@16 PO 12/29/16 16:00 01/28/17 15:59 12/29/16 16:37 7 MG Last 24 Hours Test 12/29/16 06:56 12/29/16 11:31 12/29/16 16:10 12/29/16 19:57 Bedside Glucose 120 mg/dl 152 mg/dl 193 mg/dl 192 mg/dl Test 12/30/16 05:45 Prothrombin Time 13.2 SECONDS Prothromb Time International Ratio 1.2 Sodium Level 138 mmol/L Potassium Level 4.4 mmol/L Chloride Level 102 mmol/L Carbon Dioxide Level 28 mmol/L Anion Gap 8.0 mmol/L Blood Urea Nitrogen 43 mg/dl Creatinine 3.10 mg/dl Est Creatinine Clear Calc Drug Dose 26.2 ml/min Estimated GFR () 17.8 Estimated GFR (Non- 15.4 BUN/Creatinine Ratio 13.9 Random Glucose 134 mg/dl Calcium Level 9.2 mg/dl Magnesium Level 2.2 mg/dl Assessment & Plan ESRD-for dialysis today. will make arrangements for her to go to [facility] per her wishes. lungs cta but has significant third spaced fluids.
[2016-12-30] MEDS ORDERED: ALBUMIN HUMAN 25% 12.5 GM/50 ML VIAL IV SCH (07:00)
[2016-12-30] MEDS ORDERED: EPOETIN ALFA 10,000 UNITS/ML VIAL IV. SCH (07:00)
[2016-12-30] MEDS: ASCORBIC ACID 500 MG TAB PO SCH ×2 (07:54→21:40)
[2016-12-30] MEDS: PANTOprazole SOD 40 MG TAB PO SCH (07:55)
[2016-12-30] MEDS: SERTRALINE HCL 100 MG TAB PO SCH (07:55)
[2016-12-30] MEDS: ATORVASTATIN 40 MG TAB PO SCH (07:55)
[2016-12-30] MEDS: CHOLECALCIFEROL 1000 INTER.UNIT TAB PO SCH (07:55)
[2016-12-30] MEDS: GABAPENTIN 400 MG CAP PO SCH ×2 (07:56→21:40)
[2016-12-30] MEDS: CALCITRIOL 0.25 MCG CAP PO SCH (07:56)
[2016-12-30] MEDS: CEROVITE ADV FORMULA TAB PO SCH (07:56)
[2016-12-30] MEDS: CYANOCOBALAMIN 500 MCG TAB (VIT B-12) PO SCH (07:56)
[2016-12-30] MEDS: POTASSIUM CHLORIDE 20 MEQ TABCR PO SCH (07:56)
[2016-12-30] MEDS: ASPIRIN 81 MG ECTAB PO SCH (07:56)
[2016-12-30] MEDS: MICONAZOLE NITRATE POWDER 43 GM EXT SCH (07:59)
[2016-12-30] MEDS: INSULIN ASPART 100 UNITS/ML 3 ML PEN SC SCH ×4 (08:06→21:42)
[2016-12-30] MEDS: INSULIN GLARGINE SOLOSTAR 100 UNITS/ML 3 ML PEN SC SCH (08:06)
[2016-12-30] MEDS: ALBUMIN 25% 50 ML with FUROSEMIDE INJ 80 MG IV SCH ×2 (09:00)
[2016-12-30] MEDS: TIOTROPIUM BROMIDE 5 PUFF/90 MCG INH INH SCH (09:13)
[2016-12-30] MEDS ORDERED: NURSING VERBAL MED ORDER ONE (09:30)
--- NOTE | 2016-12-30 10:29 | Progress Note ---
Internal Med Progress Note Date of Service: Dec 30, 2016. Provider Documentation: SUBJECTIVE: Patient is seen and examined at bedside. Has some productive cough but has been afebrile. Currently getting HD. Denies any chest pain, SOB. Offers no other complaints. OBJECTIVE: Vital Signs-as noted below Physical Exam: General Appearance:Obese, no apparent distress Head: normocephalic, Atraumatic Eyes: normal inspection, EOMI, PERRL Neck: supple, Trachea midline Respiratory/Chest: Normal breath sounds, CTA, HD catheter on R chest in bandage. Cardiovascular: Irregularly irregular, No murmur Abdomen/GI:Soft, Non tender, Bowel sounds present, Obese Extremities/Musculoskelatal:Chronic b/l erythema, edema Neurologic/Psych:AAOX3, grossly no focal neurological deficits Skin: Wound Vac present on Left posterior thigh. Chronic buttock wounds Lab data as noted below. ASSESSMENT & PLAN: 61 yr old female with acute RHF exacerbation and FRED: ACUTE ON CHRONIC CHF, RIGHT HEART FAILURE : CARDIORENAL SYNDROME: Patient presented with weight gain of 13 lbs, SOB, increased abdominal girth Not responding to diuresis/dobutamine S/P IV Lasix 80mg TID Continue Albumin per nephrology S/P IV Dobutamine: discontinued after patient developed NSVT Had Tunneled dialysis catheter placed on 12/25/16 by ECHO:EF 65-70%, Moderate LVH, RA- mild to moderately dilated, Rt Ventricular systolic pressure - severely elevated at >60 mm hg Appreciate cardiology/Nephrology/Vascular surgery help Dialysis per Nephrology. Planned for HD today. FRED ON CKD-IV Baseline around 2 Dialysis per nephrology Cr slightly worsened likely secondary to diuretics BILATERAL HIP ULCERATIONS (CHRONICALLY INFECTED-KLEBSIELLA) Patient was on IV antibiotics - [facility] due to multi drug resistant klebsiella infection, which was discontinued this admission by ID. Has wound vac Appreciate ID inputs Continue with wound care ANEMIA, SECONDARY TO CKD/IRON DEFICIENCY Hb stable Bleeding from catheter site resolved IV Venofer per Nephrology ATRIAL FIBRILLATION Stable Continue Metoprolol Continue Coumadin 8mg today Monitor INR:1.2 today On Heparin SQ till INR therapeutic Takes 2.5mg coumadin daily at home CHRONIC HYPOXIC RESPIRATORY FAILURE H/O CHRONIC COPD Stable Continue oxygen support Leukocytosis stable. on Prednisone (takes for arthritis per patient since years ) S/P MECHANICAL FALL WITH RIGHT KNEE SPRAIN Complains of RLE pain Imaging RLE: Soft tissue swelling RLE USD:Soft tissue edema, No organized fluid collection. PT/OT Pain control DM II: Continue with ISS, Lantus DEPRESSION: Stable Continue zoloft HYPOTHYROIDISM Continue levothyroxine MORBID OBESITY BMI:51.5 DVT PX: Heparin SQ till INR therapeutic Also on coumadin CODE STATUS: FULL CODE DISPOSITION Plan to transfer to medical floor Needs Rehab placement policy services representative consulted Vital Signs: Date Time Temp Pulse Resp B/P Pulse Ox O2 Delivery O2 Flow Rate FiO2 12/30/16 13:07 Nasal Cannula 4.0 12/30/16 12:53 36.5 112 22 96/45 90 Nasal Cannula 4.0 12/30/16 12:04 95 116/63 12/30/16 12:04 37.0 95 116/63 12/30/16 12:00 97 100/56 12/30/16 11:45 102 110/58 12/30/16 11:30 86 101/61 12/30/16 11:28 37.0 98 20 100/65 93 Nasal Cannula 4.0 12/30/16 11:15 81 104/65 12/30/16 11:00 92 111/65 12/30/16 10:45 98 110/63 12/30/16 10:30 92 111/59 12/30/16 10:15 97 102/61 12/30/16 10:00 95 111/61 12/30/16 09:45 86 94/59 12/30/16 09:30 102 109/59 12/30/16 09:15 95 91/54 12/30/16 09:00 96 107/62 12/30/16 08:58 85 113/71 12/30/16 08:50 37.0 85 113/71 12/30/16 08:00 Nasal Cannula 4.0 12/30/16 07:17 36.6 93 20 123/63 93 Nasal Cannula 4.0 12/30/16 04:00 CPAP 4.0 12/30/16 03:00 36.4 87 20 130/74 95 CPAP 12/30/16 00:00 CPAP 4.0 12/29/16 23:20 36.3 79 18 110/56 94 CPAP 12/29/16 23:20 77 93 4.0 12/29/16 20:00 Nasal Cannula 4.0 12/29/16 19:08 36.6 78 19 117/63 91 Nasal Cannula 4.0 12/29/16 16:00 93 Nasal Cannula 4.0 12/29/16 14:57 36.6 82 20 126/72 91 Nasal Cannula 4.0 Lab Results: Results Past 24 Hours Test 12/29/16 16:10 12/29/16 19:57 12/30/16 05:45 12/30/16 06:41 Range/Units Bedside Glucose 193 192 164 70-90 mg/dl Prothrombin Time 13.2 9.0-12.0 SECONDS Prothromb Time International Ratio 1.2 0.9-1.1 Sodium Level 138 136-145 mmol/L Potassium Level 4.4 3.5-5.1 mmol/L Chloride Level 102 98-107 mmol/L Carbon Dioxide Level 28 21-32 mmol/L Anion Gap 8.0 3-11 mmol/L Blood Urea Nitrogen 43 7-18 mg/dl Creatinine 3.10 0.60-1.20 mg/dl Est Creatinine Clear Calc Drug Dose 26.2 ml/min Estimated GFR () 17.8 Estimated GFR (Non- 15.4 BUN/Creatinine Ratio 13.9 10-20 Random Glucose 134 70-99 mg/dl Calcium Level 9.2 8.5-10.1 mg/dl Magnesium Level 2.2 1.8-2.4 mg/dl Test 12/30/16 11:27 12/30/16 12:43 Range/Units Bedside Glucose 152 174 70-90 mg/dl
[2016-12-30] MEDS: METOPROLOL SUCC 50MG EXT REL TAB PO SCH (12:25)
--- NOTE | 2016-12-30 12:32 | Pharmacy Progress Note ---
Pharmacy Glycemic Sign Off Nt Date of Service Dec 30, 2016. Assessment & Plan ASSESSMENT: * Pharmacy was consulted by Dr King on 12/30/16 for glycemic control and to write orders per [facility] inpatient glycemic control protocol. * Major changes made by pharmacy to antidiabetic regimen include: * Titrating outpatient basal insulin downwards to prevent hypoglycemia * Adjusting CF/CR for tighter post-prandial control * Patient has been receiving/requiring ~25 units of insulin per day for adequate glycemic control * BSGs ranging 120 - 192mg/dl; this is considered adequate glycemic control for a brittle diabetic with ESRD/HD * Regimen has only required minor adjustments over the past 48hrs to achieve this level of control * Do not anticipate further changes in patient status that would quickly deteriorate glycemic control (i.e. patient to be NPO for upcoming procedure, steroids tapering, starting tube feedings, etc). PLAN FOR INPATIENT GLYCEMIC CONTROL: No changes needed to current regimen. * Continue basal insulin with Lantus 8 units SQ daily in the morning ( outpatient dosing is 20 units daily in AM) * Continue NovoLog per scale ACHS/Q6hrs while NPO * Goal range = 120 - 140 mg/dl * CF = 30 mg/dl/unit * CR = 1 unit for ever 9 g CHO consumed * Pharmacy is signing off of glycemic consult and will no longer be making adjustments to inpatient regimen. Please feel free to re-consult if needed. Thank you. DISCHARGE RECOMMENDATIONS: * A1c 8 % on 12/02/16. This is considered adequately controlled based on age, co- morbidities, disease duration. * However, this result is likely somewhat unreliable in ESRD patients d/t interactions between the A1c analyzing technique and high levels of urea in ESRD , reduced RBC life span, iron deficiency anemia, and EPO administration. HbA1c > 7.5% in ESRD patient may overestimate the extent of hyperglycemia in ESRD patients. * Outpatient insulin regimen may need adjusted downwards if patient is experiencing hypoglycemia as an outpatient
[2016-12-30] MEDS: LORAZEPAM 0.5 MG TAB PO PRN (14:21)
[2016-12-30] MEDS ORDERED: WARFARIN SOD 4 MG TAB PO ONE (16:00)
[2016-12-31] MEDS: LEVOTHYROXINE 125 MCG TAB PO SCH (06:20)
[2016-12-31 06:21] LABS: INR 1.4 (0.9-1.1); PROTHROMBIN TIME (PATIENT) 14.7 SECONDS (9.0-12.0)
[2016-12-31] MEDS: HEPARIN SOD 5000 UNIT/0.5 ML CARP SQ SCH (06:21)
[2016-12-31 06:27] LABS: HEMATOCRIT 34.9 % (37-47); MEAN CELL VOLUME 82.3 fL (80-100); MEAN CORPUSCULAR HEMOGLOBIN 23.6 pg (25-34); MEAN CORPUSCULAR HGB CONC 28.7 g/dl (32-36); MEAN PLATELET VOLUME 9.3 fL (7.4-10.4); PLATELET COUNT 243 K/uL (130-400); RED BLOOD COUNT 4.24 M/uL (4.2-5.4)
[2016-12-31 06:39] LABS: BUN/CREATININE RATIO 11.6 (10-20); CALCIUM 9.2 mg/dl (8.5-10.1); CREATININE 2.7 mg/dl (0.60-1.20); POTASSIUM 4.8 mmol/L (3.5-5.1)
[2016-12-31 08:17] VITALS: BP 118/73; PULSE 102; TEMP 36.9; O2SAT 96
[2016-12-31] MEDS: CHOLECALCIFEROL 1000 INTER.UNIT TAB PO SCH (09:43)
[2016-12-31] MEDS: CYANOCOBALAMIN 500 MCG TAB (VIT B-12) PO SCH (09:43)
[2016-12-31] MEDS: ASPIRIN 81 MG ECTAB PO SCH (09:43)
[2016-12-31] MEDS: PANTOprazole SOD 40 MG TAB PO SCH (09:44)
[2016-12-31] MEDS: SERTRALINE HCL 100 MG TAB PO SCH (09:44)
[2016-12-31] MEDS: POTASSIUM CHLORIDE 20 MEQ TABCR PO SCH (09:44)
[2016-12-31] MEDS: ASCORBIC ACID 500 MG TAB PO SCH (09:45)
[2016-12-31] MEDS: METOPROLOL SUCC 50MG EXT REL TAB PO SCH (09:45)
[2016-12-31] MEDS: GABAPENTIN 400 MG CAP PO SCH (09:45)
[2016-12-31] MEDS: ATORVASTATIN 40 MG TAB PO SCH (09:46)
[2016-12-31] MEDS: CEROVITE ADV FORMULA TAB PO SCH (09:46)
[2016-12-31] MEDS: TIOTROPIUM BROMIDE 5 PUFF/90 MCG INH INH SCH (09:46)
--- NOTE | 2016-12-31 09:47 | Progress Note ---
Internal Med Progress Note Date of Service: Dec 31, 2016. Provider Documentation: SUBJECTIVE: Patient is seen and examined at bedside. States feeling well this morning. Denies any chest pain, SOB, palpitations, dizziness. Offers no other complaints. OBJECTIVE: Vital Signs-as noted below Physical Exam: General Appearance:Obese, no apparent distress Head: normocephalic, Atraumatic Eyes: normal inspection, EOMI, PERRL Neck: supple, Trachea midline Respiratory/Chest: Normal breath sounds, CTA, HD catheter on R chest in bandage. Cardiovascular: Irregularly irregular, No murmur Abdomen/GI:Soft, Non tender, Bowel sounds present, Obese Extremities/Musculoskelatal:Chronic b/l erythema, edema Neurologic/Psych:AAOX3, grossly no focal neurological deficits Skin: Wound Vac present on Left posterior thigh. Chronic buttock wounds Lab data as noted below. ASSESSMENT & PLAN: 61 yr old female with acute RHF exacerbation and FRED: ACUTE ON CHRONIC CHF, RIGHT HEART FAILURE : CARDIORENAL SYNDROME: Patient presented with weight gain of 13 lbs, SOB, increased abdominal girth Not responding to diuresis/dobutamine S/P IV Lasix 80mg TID;discontinued Continue Albumin per nephrology S/P IV Dobutamine: discontinued after patient developed NSVT Had Tunneled dialysis catheter placed on 12/25/16 by ECHO:EF 65-70%, Moderate LVH, RA- mild to moderately dilated, Rt Ventricular systolic pressure - severely elevated at >60 mm hg Appreciate cardiology/Nephrology/Vascular surgery help Dialysis per Nephrology. 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 Has wound vac Appreciate ID inputs Continue with wound care ANEMIA, SECONDARY TO CKD/IRON DEFICIENCY Hb stable Bleeding from catheter site resolved S/P IV Venofer ATRIAL FIBRILLATION Stable Continue Metoprolol Continue Coumadin 8mg today Monitor INR:1.4 today On Heparin SQ till INR therapeutic Takes 2.5mg coumadin daily at home CHRONIC HYPOXIC RESPIRATORY FAILURE H/O CHRONIC COPD Stable Continue oxygen support Leukocytosis stable. on Prednisone (takes for arthritis per patient since years ) S/P MECHANICAL FALL WITH RIGHT KNEE SPRAIN Complains of RLE pain Imaging RLE: Soft tissue swelling RLE USD:Soft tissue edema, No organized fluid collection. PT/OT Pain control DM II: Continue with ISS, Lantus Lantus is decreased from 20mg to 15mg daily based on recommendations from pharmacy Needs dose adjustment as outpatient based on blood sugar levels DEPRESSION: Stable Continue zoloft HYPOTHYROIDISM Continue levothyroxine MORBID OBESITY BMI:51.5 DVT PX: Heparin SQ till INR therapeutic Also on coumadin CODE STATUS: FULL CODE DISPOSITION Plan to discharge to [facility] today Follow up with your physician, on January 06, 2017 at 12:25pm Follow up with wound care clinic as advised Get Hemodialysis as per your [employer] Carver.: Next HD due tomorrow. TAKE COUMADIN ORAL 8MG TODAY CHECK YOUR PT/INR TOMORROW(01/01/17) AND FOLLOW UP WITH YOUR PHYSICIAN AT [facility] FOR FURTHER COUMADIN DOSAGE Vital Signs: Date Time Temp Pulse Resp B/P Pulse Ox O2 Delivery O2 Flow Rate FiO2 12/31/16 08:17 36.9 102 18 118/73 96 Nasal Cannula 4.0 12/31/16 00:00 Nasal Cannula 4.0 12/30/16 23:58 36.6 73 18 112/75 94 Nasal Cannula 4.0 12/30/16 20:00 Nasal Cannula 4.0 12/30/16 14:55 36.6 89 20 116/77 93 Nasal Cannula 4.0 12/30/16 13:07 Nasal Cannula 4.0 12/30/16 12:53 36.5 112 22 96/45 90 Nasal Cannula 4.0 12/30/16 12:04 95 116/63 12/30/16 12:04 37.0 95 116/63 12/30/16 12:00 97 100/56 12/30/16 11:45 102 110/58 12/30/16 11:30 86 101/61 12/30/16 11:28 37.0 98 20 100/65 93 Nasal Cannula 4.0 12/30/16 11:15 81 104/65 12/30/16 11:00 92 111/65 12/30/16 10:45 98 110/63 12/30/16 10:30 92 111/59 Lab Results: Results Past 24 Hours Test 12/30/16 11:27 12/30/16 12:43 12/30/16 16:40 12/30/16 20:11 Range/Units Bedside Glucose 152 174 148 171 70-90 mg/dl Test 12/31/16 05:40 12/31/16 07:52 Range/Units White Blood Count 15.20 4.8-10.8 K/uL Red Blood Count 4.24 4.2-5.4 M/uL Hemoglobin 10.0 12.0-16.0 g/dL Hematocrit 34.9 37-47 % Mean Corpuscular Volume 82.3 80-100 fL Mean Corpuscular Hemoglobin 23.6 25-34 pg Mean Corpuscular Hemoglobin Concent 28.7 32-36 g/dl RDW Standard Deviation 56.8 36.4-46.3 fL RDW Coefficient of Variation 21.0 11.5-14.5 % Platelet Count 243 130-400 K/uL Mean Platelet Volume 9.3 7.4-10.4 fL Prothrombin Time 14.7 9.0-12.0 SECONDS Prothromb Time International Ratio 1.4 0.9-1.1 Sodium Level 139 136-145 mmol/L Potassium Level 4.8 3.5-5.1 mmol/L Chloride Level 104 98-107 mmol/L Carbon Dioxide Level 26 21-32 mmol/L Anion Gap 9.0 3-11 mmol/L Blood Urea Nitrogen 31 7-18 mg/dl Creatinine 2.70 0.60-1.20 mg/dl Est Creatinine Clear Calc Drug Dose 30.0 ml/min Estimated GFR () 21.0 Estimated GFR (Non- 18.2 BUN/Creatinine Ratio 11.6 10-20 Random Glucose 131 70-99 mg/dl Calcium Level 9.2 8.5-10.1 mg/dl Bedside Glucose 150 70-90 mg/dl
[2016-12-31] MEDS: INSULIN ASPART 100 UNITS/ML 3 ML PEN SC SCH ×2 (09:49→12:40)
[2016-12-31] MEDS: INSULIN GLARGINE SOLOSTAR 100 UNITS/ML 3 ML PEN SC SCH (09:50)
[2016-12-31] MEDS ORDERED: INSDGI SQ (10:09)
[2016-12-31] MEDS ORDERED: HYDR-3419 PO ×2 (10:09)
[2016-12-31] MEDS ORDERED: LORA-741 PO (10:09)
--- NOTE | 2016-12-31 10:18 | Discharge Summary ---
Discharge Summary Date of Service Dec 31, 2016. Discharge Summary Admission Date: Dec 20, 2016 at 11:19 Discharge Date: Dec 31, 2016 Discharge Disposition: care home facility Principal Diagnosis: ACUTE ON CHRONIC CHF, FRED Secondary Diagnoses/Problems: ESRD on hemodialysis Procedures: Insertion of Perm Catheter, Right Internal Jugular Approach, Ultrasound Consultations: Nephrology, ID, Cardiology, Vascular surgery Pending Studies/Follow-Up: Follow up with your physician, on January 06, 2017 at 12:25pm Follow up with wound care clinic as advised Get Hemodialysis as per your Robotype Operator.: Next HD due tomorrow. TAKE COUMADIN ORAL 8MG TODAY CHECK YOUR PT/INR TOMORROW(01/01/17) AND FOLLOW UP WITH YOUR PHYSICIAN AT [facility] FOR FURTHER COUMADIN DOSAGE Continue Heparin SQ for DVT prophylaxis until your INR is therapeutic (INR Target:2.0 to 3.0) and can then discontinue once in therapeutic range. Your Lantus is decreased from 20mg daily to 15mg daily. Please follow up with your Physician at [facility] for further Lantus dose adjustment based on your blood sugar levels. Medication Reconciliation Changed Medications: Insulin Glargine (Lantus) 100 Unit/Ml Inj 15 UNITS SQ QAM for 7 Days, #1 VIAL (Changed from: 20 UNITS) Continued Medications: Acetaminophen Tab (Tylenol) 325 Mg Tab 650 MG PO Q6H PRN for PAIN OR TEMP > 100F, TAB NTE 3GM APAP/24HRS Albuterol (Proair Hfa) Aers 2 PUFFS PO QID PRN for Shortness of Breath Ascorbic Acid (Vitamin C) 500 Mg Tab 500 MG PO BID Aspirin Enteric Coated (Ecotrin Or Generic *) 81 Mg Ectab 81 MG PO DAILY, 0 Refills Atorvastatin (Lipitor) 40 Mg Tab 40 MG PO DAILY, TAB Calcitriol (Rocaltrol Cap) 0.25 Mcg Cap 0.25 MCG PO UD, CAP MWF Cholecalciferol (Vitamin D) 1,000 Inter.unit Tab 2000 INTER.UNIT PO DAILY, TAB Cyanocobalamin (Vitamin B-12) 1,000 Mcg Tab 1000 MCG PO DAILY, TAB Gabapentin (Neurontin) 400 Mg Cap 400 MG PO BID, 0 Refills Heparin Sodium (Porcine) (Heparin Sodium) 5,000 Unit/Ml Inj 5000 UNITS SQ BID Hydrocodon/Acetaminophen 5MG/300MG (Vicodin (5MG/300MG)) 1 Tab Tab 2 TABS PO UD for 2 Days, #2 TAB (This prescription has been renewed) TAKE 2 TABLETS ORALLY ONE HOUR PRIOR TO WOUND VAC CHANGE. NTE 3GM APAP/24HRS. Hydrocodon/Acetaminophen 5MG/300MG (Vicodin (5MG/300MG)) 1 Tab Tab 1 TAB PO Q6H PRN for Pain for 2 Days, #8 TAB (This prescription has been renewed ) NTE 3GM APAP/24HRS Hydroxyzine Hcl (Atarax) 50 Mg Tab 25 MG PO Q6H PRN for PURITIS, TAB Insulin Aspart (Novolog Penfill) 100 Unit/ Inj 3 UNITS SC AC, INJ PLUS SLIDING SCALE Levothyroxine Sodium (Synthroid) 125 Mcg Tab 125 MCG PO DAILY, TAB Lorazepam (Ativan) 0.5 Mg Tab 0.5 MG PO UD for 2 Days, #2 TAB (This prescription has been renewed) TAKE ONE TABLET ORALLY ONE HOUR PRIOR TO WOUND VAC CHANGES. Magnesium Oxide (Mag-Ox) 400 Mg Tab 400 MG PO BID, TAB Metolazone (Zaroxolyn) 2.5 Mg Tab 2.5 MG PO WK, TAB TAKE EVERY FRIDAY Metoprolol Succinate (Toprol Xl) 50 Mg Tab 50 MG PO DAILY, #30 TAB Miconazole Nitrate (Desenex Shake Powder) 43 Appln/43 Gm Powd 1 APPLN EXT MoWeFr@0900 for 7 Days Multiple Vitamins W/ Minerals (Therems M) 1 Tab Tab 1 TAB PO DAILY Pantoprazole (Protonix) 20 Mg Tab 20 MG PO DAILY, 0 Refills Potassium Chloride Microencaps (Potassium Chloride Er) 20 Meq Tab 20 MEQ PO DAILY Prednisone (Prednisone) 5 Mg Tab 5 MG PO DAILY, TAB Sertraline (Zoloft) 100 Mg Tab 150 MG PO DAILY, TAB Tiotropium [place] (Spiriva Handihaler) 18 Mcg/ Aerp 1 CAP INH DAILY, 0 Refills Torsemide (Demadex) 100 Mg Tab 100 MG PO DAILY, TAB Warfarin Sod (Coumadin) 2.5 Mg Tab 2.5 MG PO DAILY@16 for 30 Days, TAB [protein powder] () 1 DOSE PO TID Discontinued Medications: Ceftazidime-Avibactam Sodium (Avycaz 2-0.5 gm) 1 Inj Inj 0.94 GM IV DAILY Ciprofloxacin/Hydrocortisone (Cipro Hc 0.2-1 %) 150 Drops/10 Ml Susp 3 DROPS OT BID for 3 Days Hydrocodon/Acetaminophen 5MG/300MG (Vicodin (5MG/300MG)) 1 Tab Tab 2 TABS PO Q12 PRN for SEVERE PAIN, TAB NTE 3GM APAP/24HRS Admission Information HPI (per Admitting provider): 61 yo F with h/o heart failure, DMII, atrial fibrillation on coumadin, morbid obesity, chronic respiratory failure, Stage IV CKD and a known wound on her glutes for which she was receiving care at [facility] recently. She began to notice an increase in her weight, increased need for supplemental oxygen and swelling in her abdomen area over the past two weeks. She initially tried to see her Marketing Programs Specialist yesterday but fell outside of the car and tweaked her R knee. There was no force on her knee and her graddaughter states that she slid down slowly to the ground. Today pain is present but minimal and located on the superior aspect of the R patella. She was able to make it to Cards office today, and with the symptoms, and h/o needing IV Lasix and possibly albumin, hospitalization was recommended and she was sent here as a direct admission. Physical Exam (per Admitting): GEN: morbidly obese, in no acute distress, alert and appropriate HEENT: NC/AT, PERRL, normal sclerae, EOMI CARDIO: irreg, S1/2 heard without m/g/r LUNGS: CTA throughout except at way L base area, good diaphragmatic excursion. ABD: soft, edematous with large pannus making exam complicated, +BS EXTREMITY: erythroderma bilateral lower extremities, chronic swelling in LEs but no pitting edema, skin is very tight, warm and well perfused, R forearm with minor skin tears and wound over them. PICC in place in LUE with no surrounding erythema. NEURO: CN 2-12 grossly intact, sensation intact throughout, no gross focal deficits MUSC: ambulatory with assistance, moves all extremities equally SKIN: warm and dry, changes as above. Wound vac to L glutes/posterior thigh area, no surrounding erythema. Wound, chronic-appearing to R buttock similar in size to L sided wound. Hospital Course 61 yr old female with acute RHF exacerbation and FRED: ACUTE ON CHRONIC CHF, RIGHT HEART FAILURE : CARDIORENAL SYNDROME: Patient presented with weight gain of 13 lbs, SOB, increased abdominal girth Not responding to diuresis/dobutamine S/P IV Lasix 80mg TID;discontinued Continue Albumin per nephrology S/P IV Dobutamine: discontinued after patient developed NSVT Had Tunneled dialysis catheter placed on 12/25/16 by ECHO:EF 65-70%, Moderate LVH, RA- mild to moderately dilated, Rt Ventricular systolic pressure - severely elevated at >60 mm hg Appreciate cardiology/Nephrology/Vascular surgery help Dialysis per Nephrology. Planned for HD tomorrow as outpatient FRED ON CKD-IV Baseline around 2 Dialysis per nephrology Cr:2.7 today BILATERAL HIP ULCERATIONS (CHRONICALLY INFECTED-KLEBSIELLA) Patient was on IV antibiotics - retirement due to multi drug resistant klebsiella infection, which was discontinued this admission by ID. Has wound vac Appreciate ID inputs Continue with wound care ANEMIA, SECONDARY TO CKD/IRON DEFICIENCY Hb stable Bleeding from catheter site resolved S/P IV Venofer ATRIAL FIBRILLATION Stable Continue Metoprolol Continue Coumadin 8mg today Monitor INR:1.4 today On Heparin SQ till INR therapeutic Takes 2.5mg coumadin daily at home CHRONIC HYPOXIC RESPIRATORY FAILURE H/O CHRONIC COPD Stable Continue oxygen support Leukocytosis stable. on Prednisone (takes for arthritis per patient since years ) S/P MECHANICAL FALL WITH RIGHT KNEE SPRAIN Complains of RLE pain Imaging RLE: Soft tissue swelling RLE USD:Soft tissue edema, No organized fluid collection. PT/OT Pain control DM II: Continue with ISS, Lantus Lantus is decreased from 20mg to 15mg daily based on recommendations from pharmacy Needs dose adjustment as outpatient based on blood sugar levels DEPRESSION: Stable Continue zoloft HYPOTHYROIDISM Continue levothyroxine MORBID OBESITY BMI:51.5 DVT PX: Heparin SQ till INR therapeutic Also on coumadin CODE STATUS: FULL CODE DISPOSITION Plan to discharge to [facility] today Follow up with your physician, on January 06, 2017 at 12:25pm Follow up with wound care clinic as advised Get Hemodialysis as per your Robotype Operator.: Next HD due tomorrow. TAKE COUMADIN ORAL 8MG TODAY CHECK YOUR PT/INR TOMORROW(01/01/17) AND FOLLOW UP WITH YOUR PHYSICIAN AT [facility] FOR FURTHER COUMADIN DOSAGE Total time spent on discharge = 35 minutes This includes examination of the patient, discharge planning, medication reconciliation, and communication with other providers. Discharge Instructions Discharge Instructions Date of Service Dec 31, 2016. Admission Reason for Admission: Acute Renal Failure,Rt Sided Heart Failure Discharge Discharge Diagnosis / Problem: ACUTE ON CHRONIC CHF, FRED Discharge Goals Goal(s): Decrease discomfort, Improve function Activity Recommendations Activity Limitations: resume your previous activity Exercise/Sports Limitations: as tolerated . Instructions / Follow-Up Instructions / Follow-Up Follow up with your physician, on January 06, 2017 at 12:25pm Follow up with wound care clinic as advised Get Hemodialysis as per your Robotype Operator.: Next HD due tomorrow. TAKE COUMADIN ORAL 8MG TODAY CHECK YOUR PT/INR TOMORROW(01/01/17) AND FOLLOW UP WITH YOUR PHYSICIAN AT [facility] FOR FURTHER COUMADIN DOSAGE Continue Heparin SQ for DVT prophylaxis until your INR is therapeutic (INR Target:2.0 to 3.0) and can then discontinue once in therapeutic range. Your Lantus is decreased from 20mg daily to 15mg daily. Please follow up with your Physician at [facility] for further Lantus dose adjustment based on your blood sugar levels. Current Hospital Diet Patient's current hospital diet: Low Sodium Diet (2gm Na), Diabetes Type 2 Diet Discharge Diet Recommended Diet: Low Sodium Diet (2gm Na), Diabetes Type 2 Diet Procedures Procedures Performed: Insertion of Perm Catheter, Right Internal Jugular Approach, Ultrasound Localization of Right Internal Jugular Vein, Fluoroscopy for Positioning, Moderate sedation from 1336 - 1348 Pending Studies Studies pending at discharge: no Laboratory Results Hemoglobin A1c Test 12/21/16 04:50 Range/Units Estimated Average Glucose 186 mg/dl Hemoglobin A1c 8.1 H 4.5-5.6 % Medical Emergencies . Who to Call and When: Medical Emergencies: If at any time you feel your situation is an emergency, please call 911 immediately. . Non-Emergent Contact Non-Emergency issues call your: Primary Care Provider, Robotype Operator Call Non-Emergent contact if: you have a fever, your pain is not controlled, your pain is worsening, your pain is unusual for you, you have any medication questions . . "Provider Documentation" section prepared by Yan Conti. VTE Core Measure Inpt VTE Proph given/why not?: Unfractionated heparin SQ, Warfarin (Coumadin)
[2016-12-31] MEDS: HYDROCODONE/ACETAMOPHEN 5/325MG TAB PO PRN (11:10)
[2016-12-31 13:57] VITALS: BP 118/73; PULSE 102; TEMP 36.9; O2SAT 96
[2016-12-31] MEDS ORDERED: WARFARIN SOD 4 MG TAB PO ONE (16:00)
[2017-02-06] MEDS ORDERED: AMOX875T PO (14:53)
[2017-02-06] MEDS ORDERED: CPR750 PO (14:53)
[2017-03-29] MEDS ORDERED: SNTO30 EXT (17:49)
[2017-03-29] MEDS ORDERED: NUTRMIS PO (17:49)
[2017-04-29] MEDS ORDERED: ATOR-24 PO (02:35)
[2017-04-29] MEDS ORDERED: PRED-301 PO (02:48)
[2017-04-29] MEDS ORDERED: LEVO125T72 PO (09:15)
[2017-04-29] MEDS ORDERED: CYAN10005 PO (09:18)
[2017-04-29] MEDS ORDERED: CALC0.2510 PO (10:32)
[2017-04-29] MEDS ORDERED: MAGN400T5 PO (10:32)
[2017-04-29] MEDS ORDERED: ASPI81TA28 PO (12:03)
[2017-04-29] MEDS ORDERED: OXGN (12:03)
[2017-04-29] MEDS ORDERED: DOCU-94 PO (12:03)
[2017-04-29] MEDS ORDERED: B-CO1TAB73 PO (12:03)
[2017-04-29] MEDS ORDERED: WARF5TAB90 PO (12:03)
[2017-04-29] MEDS ORDERED: NVLG SC (12:03)
[2017-04-29] MEDS ORDERED: CHOL2000 PO (12:03)
[2017-04-29] MEDS ORDERED: INSDGIPEN SC (12:03)
[2017-04-29] MEDS ORDERED: CMD/25 PO (12:03)
[2017-04-29] MEDS ORDERED: SPRIN/30 INH (12:03)
[2017-05-05] MEDS ORDERED: CIPR1TAB11 PO (17:15)
[2017-05-05] MEDS ORDERED: AMOX500T PO (17:15)
[2017-05-30] MEDS ORDERED: LVQ500 PO (17:03)
[2017-06-12] MEDS ORDERED: CIPR1TAB11 PO (15:05)
[2017-06-12] MEDS ORDERED: AMOX500T PO (15:05)
[2017-08-15] MEDS ORDERED: CEFD1CAP14 PO (10:54)
== END 2016-12-31 15:05 | DRG 291 ==
LOC: ENRESERVTM → ENRESERVDT → C.2E 11:19 → UNDOADMIN 11:19 → C.4E 12-30 10:40 → EDBEDREQ 12-30 11:05
PROVIDERS: ADMIT Emergency Medicine; ATTEND Internal Medicine
PROC: 05HM33Z Insertion of Infusion Device into Right Internal Jugular Vein, Percutaneous Approach (ICD-10-PCS; principal; 2016-12-25 13:00)
DX: I50.23 Acute on chronic systolic (congestive) heart failure (principal); N18.6 End stage renal disease; E66.2 Morbid (severe) obesity with alveolar hypoventilation; J96.11 Chronic respiratory failure with hypoxia; N17.9 Acute kidney failure, unspecified; N18.4 Chronic kidney disease, stage 4 (severe); Z68.43 Body mass index [BMI] 50.0-59.9, adult; D72.829 Elevated white blood cell count, unspecified; I48.2 Chronic atrial fibrillation; E11.9 Type 2 diabetes mellitus without complications; E78.5 Hyperlipidemia, unspecified; I10 Essential (primary) hypertension; Z90.49 Acquired absence of other specified parts of digestive tract; Z87.891 Personal history of nicotine dependence; Z79.82 Long term (current) use of aspirin; Z79.4 Long term (current) use of insulin; S31.809A Unspecified open wound of unspecified buttock, initial encounter; J44.9 Chronic obstructive pulmonary disease, unspecified; S83.91XA Sprain of unspecified site of right knee, initial encounter; W19.XXXA Unspecified fall, initial encounter; Z79.01 Long term (current) use of anticoagulants; E03.9 Hypothyroidism, unspecified; E83.41 Hypermagnesemia; L89.220 Pressure ulcer of left hip, unstageable; Z99.2 Dependence on renal dialysis; A49.8 Other bacterial infections of unspecified site; Z99.81 Dependence on supplemental oxygen; Z79.52 Long term (current) use of systemic steroids

== ENCOUNTER → 2017-01-02 | Outpatient (CLI) | payer OTHER ==
[~2017-01-02] MED LIST changes: +AMOX500T PO; +AMOX875T PO; +ASCA500 PO; +ASPI81TA28 PO; +ATOR-24 PO; +B-CO1TAB73 PO; +CALC0.2510 PO; +CEFD1CAP14 PO; +CHOL2000 PO; +CIPR1TAB11 PO; +CMD/25 PO; +CPR750 PO; -CPROT OT; +CYAN10005 PO; +DOCU-94 PO; +GABA1CAP5 PO; +HYDR-4330 PO; +HYDR-5688 PO; +INSDGIPEN SC; +LEVO125T72 PO; +LEVO1TAB33 PO; +LVQ500 PO; +MAGN400T5 PO; +METO25TA3 PO; +NUTRMIS PO; +NVLG SC; +OXGN; +PRED-301 PO; +PRT/20 PO; +SERT-234 PO; +SNTO30 EXT; +SNTO30 TOP; +SPRIN/30 INH; +WARF5TAB90 PO; -[UNRECOGNIZED DRUG - CODE] IV
[2017-01-02 10:24] LABS: INR 1.3 (0.9-1.1); PROTHROMBIN TIME (PATIENT) 13.7 SECONDS (9.0-12.0)
== END ==
LOC: C.LABCC 09:13
PROVIDERS: ATTEND Internal Medicine
DX: I48.91 Unspecified atrial fibrillation (principal)

== ENCOUNTER → 2017-01-10 | Outpatient (CLI) | payer OTHER ==
[2017-01-10 12:23] LABS: INR 1.4 (0.9-1.1); PROTHROMBIN TIME (PATIENT) 15.4 SECONDS (9.0-12.0)
== END ==
LOC: C.LABCC 11:46
PROVIDERS: ATTEND Internal Medicine
DX: I48.91 Unspecified atrial fibrillation (principal)

== ENCOUNTER → 2017-01-11 | Outpatient (CLI) | payer OTHER ==
[2017-01-11 07:41] LABS: INR 1.5 (0.9-1.1); PROTHROMBIN TIME (PATIENT) 15.9 SECONDS (9.0-12.0)
[2017-01-11 07:52] LABS: HEMATOCRIT 35.4 % (37-47); MEAN CELL VOLUME 83.5 fL (80-100); MEAN CORPUSCULAR HEMOGLOBIN 23.8 pg (25-34); MEAN CORPUSCULAR HGB CONC 28.5 g/dl (32-36); PLATELET COUNT 315 K/uL (130-400); RED BLOOD COUNT 4.24 M/uL (4.2-5.4); WHITE BLOOD COUNT 12.86 K/uL (4.8-10.8)
[2017-01-11 07:53] LABS: ANISOCYTOSIS PRESENT; BASO % 0.5 %; BASO ABS # 0.06 K/uL (0-0.2); COMPLETE YES; ECHINOCYTES 1+; EOS % 4.9 %; IG% 0.4 %; LYMPH % 14.4 %; LYMPH ABS # 1.85 K/uL (1.2-3.4); MONO % 11.3 %; NEUT % 68.5 %; OVALOCYTES 1+; POIKILOCYTOSIS PRESENT; SPHEROCYTE 1+
== END | disposition home or self-care (01) ==
LOC: C.LABCC 14:09
PROVIDERS: ATTEND Internal Medicine
DX: I48.91 Unspecified atrial fibrillation (principal)

== ENCOUNTER → 2017-01-12 | Outpatient (CLI) | payer OTHER ==
[2017-01-12 08:18] LABS: INR 1.5 (0.9-1.1); PROTHROMBIN TIME (PATIENT) 16.3 SECONDS (9.0-12.0)
== END | disposition home or self-care (01) ==
LOC: C.LABCC 14:02
PROVIDERS: ATTEND Internal Medicine
DX: I48.91 Unspecified atrial fibrillation (principal)

== ENCOUNTER → 2017-01-13 | Outpatient (CLI) | payer OTHER ==
[2017-01-13 08:31] LABS: INR 1.6 (0.9-1.1); PROTHROMBIN TIME (PATIENT) 17.5 SECONDS (9.0-12.0)
== END ==
LOC: C.LABCC 08:04
PROVIDERS: ATTEND Internal Medicine
DX: I48.91 Unspecified atrial fibrillation (principal)

== ENCOUNTER → 2017-03-06 | Outpatient (CLI) | payer OTHER ==
[~2017-03-06] MED LIST changes: -CEFD1CAP14 PO; -HEPA1INJ22 SQ; -METO-452 PO; +METO1TAB66 PO; -SNTO30 TOP
--- NOTE | 2017-03-06 11:10 | DIAGNOSTIC IMAGING REPORT ---
CHEST 2 VIEWS ROUTINE CLINICAL HISTORY: PERSIST ANT COUGH cough COMPARISON STUDY: 12/20/2017 FINDINGS: PermCath in superior vena cava. Persistent right pleural effusion. Moderate cardiomegaly considered stable. IMPRESSION: Right pleural effusion. Moderate cardiomegaly. Electronically signed by: Bird Patino M.D. 03/06/2017 11:08 AM Dictated Date/Time: 03/06/2017 11:08 AM
== END | disposition home or self-care (01) ==
LOC: C.RADBBURG 10:23
PROVIDERS: ATTEND Family Medicine
DX: R05 Cough (principal); J90 Pleural effusion, not elsewhere classified; I51.7 Cardiomegaly

== ENCOUNTER 2017-03-26 10:31 | Inpatient (IN) | payer OTHER ==
[~2017-03-26] VITALS: Ht 162.6 cm; Wt 108.3 kg
[~2017-03-26 10:31] MED LIST changes: -AMOX500T PO; -ASCA500 PO; -ASPI81TA28 PO; -ATOR-24 PO; -B-CO1TAB73 PO; -CALC0.2510 PO; -CHOL2000 PO; -CIPR1TAB11 PO; -CMD/25 PO; -CYAN10005 PO; -DOCU-94 PO; -GABA1CAP5 PO; -HYDR-4330 PO; -HYDR-5688 PO; -INSDGIPEN SC; -LEVO125T72 PO; -LEVO1TAB33 PO; -LVQ500 PO; -MAGN400T5 PO; -METO25TA3 PO; -NUTRMIS PO; -NVLG SC; -OXGN; -PRED-301 PO; -PRT/20 PO; -SERT-234 PO; -SNTO30 EXT; -SPRIN/30 INH; -WARF5TAB90 PO
[2017-03-26] MEDS ORDERED: ALBUT/IPRATROP 3MG/0.5MG NEB 3 ML VIAL INH STA (10:47)
[2017-03-26] MEDS ORDERED: METHYLPREDNISOLONE 125 MG VIAL IV STA (10:51)
[2017-03-26] MEDS ORDERED: SODIUM CHLORIDE 0.9% 250ML 250 ML IV STA (10:52)
--- NOTE | 2017-03-26 11:27 | DIAGNOSTIC IMAGING REPORT ---
CHEST ONE VIEW PORTABLE CLINICAL HISTORY: Sepsis sepsis COMPARISON STUDY: 03/06/2017 FINDINGS: Moderate stable cardiomegaly. Small right pleural effusion slightly improved as compared to the prior study. PermCath in superior vena cava. Lungs otherwise are clear. IMPRESSION: Moderate stable cardia megaly. Small right pleural effusion improved from the prior exam . No focal infiltrate. Electronically signed by: Bird Patino M.D. 03/26/2017 11:26 AM Dictated Date/Time: 03/26/2017 11:25 AM
[2017-03-26 11:35] LABS: INR 3.8 (0.9-1.1); PARTIAL THROMBOPLASTIN RATIO 2.2; PROTHROMBIN TIME (PATIENT) 42.4 SECONDS (9.0-12.0)
[2017-03-26 11:37] LABS: HEMATOCRIT 33.6 % (37-47); MEAN CELL VOLUME 78.1 fL (80-100); MEAN CORPUSCULAR HEMOGLOBIN 22.6 pg (25-34); MEAN CORPUSCULAR HGB CONC 28.9 g/dl (32-36); MEAN PLATELET VOLUME 8.5 fL (7.4-10.4); PLATELET COUNT 418 K/uL (130-400); WHITE BLOOD COUNT 17.71 K/uL (4.8-10.8)
[2017-03-26 11:43] LABS: BUN/CREATININE RATIO 7.1 (10-20); CALCIUM 9.1 mg/dl (8.5-10.1); POTASSIUM 3.9 mmol/L (3.5-5.1)
[2017-03-26 11:44] LABS: ANISOCYTOSIS PRESENT; BASO % 0.2 %; BASO ABS # 0.04 K/uL (0-0.2); COMPLETE YES; EOS % 1.4 %; HYPOCHROMIA PRESENT; IG% 2.1 %; LARGE PLATELETS 1+; LYMPH % 5.6 %; MONO % 8.5 %; NEUT % 82.2 %; POIKILOCYTOSIS PRESENT
[2017-03-26 11:46] LABS: ALB/GLOB RATIO 0.5 (0.9-2)
[2017-03-26] MEDS ORDERED: HYDR-4330 PO (12:03)
[2017-03-26] MEDS ORDERED: LEVO1TAB33 PO (12:04)
[2017-03-26 12:43] LABS: POINT OF CARE PRO-BNP > 20000 pg/ml (0-900); POINT OF CARE TROPONIN I < 0.030 ng/ml (0-0.045)
[2017-03-26 13:46] VITALS: O2SAT 95; Ht 162.6 cm; Wt 108.3 kg
[2017-03-26] MEDS ORDERED: ONDANSETRON INJ 2 MG/ML 2 ML VIAL IV PRN (14:00)
[2017-03-26] MEDS ORDERED: ACETAMINOPHEN 325 MG TAB PO PRN (14:00)
[2017-03-26] MEDS ORDERED: NITROGLYCERIN 0.4 MG SL PER TAB CHARGE SL PRN (14:00)
[2017-03-26] MEDS ORDERED: PHARMACY GLYCEMIC MGMT CONSULT PRN (14:04)
[2017-03-26] MEDS ORDERED: GLUCOSE 40% GEL 15 GM TUBE PO PRN (14:15)
[2017-03-26] MEDS ORDERED: GLUCOSE 10 TABS/TUBE PO PRN (14:15)
[2017-03-26] MEDS ORDERED: GLUCAGON FOR INJ 1 MG VIAL SQ PRN (14:15)
[2017-03-26] MEDS ORDERED: DEXTROSE 50% 50 ML SYR IV PRN (14:15)
--- NOTE | 2017-03-26 15:09 | Pharmacy Progress Note ---
Glycemic Control Intl Consult Date of Service Mar 26, 2017. Scope Glycemic Pharmacist consulted by Darshana AHUMADA on 03/26/2017 for glycemic control and to write orders per [facility] inpatient glycemic control protocol Objective Weight (Kilograms): 110.000 Accuchecks BSG (last 24hrs): Test 03/26/17 11:00 Random Glucose 147 mg/dl (70-99) Laboratory Data (last 24hrs) Test 03/26/17 11:00 Anion Gap 10.0 mmol/L BUN/Creatinine Ratio 7.1 Blood Urea Nitrogen 14 mg/dl Creatinine 2.00 mg/dl Potassium Level 3.9 mmol/L Sodium Level 134 mmol/L White Blood Count 17.71 K/uL Red Blood Count 4.30 M/uL Hemoglobin 9.7 g/dL Hematocrit 33.6 % Mean Corpuscular Volume 78.1 fL Mean Corpuscular Hemoglobin 22.6 pg Mean Corpuscular Hemoglobin Concent 28.9 g/dl Platelet Count 418 K/uL Mean Platelet Volume 8.5 fL Neutrophils (%) (Auto) 82.2 % Lymphocytes (%) (Auto) 5.6 % Monocytes (%) (Auto) 8.5 % Eosinophils (%) (Auto) 1.4 % Basophils (%) (Auto) 0.2 % Neutrophils # (Auto) 14.54 K/uL Lymphocytes # (Auto) 1.00 K/uL Monocytes # (Auto) 1.50 K/uL Eosinophils # (Auto) 0.25 K/uL Basophils # (Auto) 0.04 K/uL Recent Pertinent Medications Outpatient Anti-diabetic Regimen: * Lantus 30 units qHS + Novolog 3 units with meals in addition to scale * A1c = 8.1 % 12/21/2016 Risk Factors for Insulin Resistance: * Steroids: prednisone 5 mg PO daily (home dose) + Solu-Medrol 125 mg IV x 1 in ED * Infection: unknown; chronic wounds on antibiotics * Diet: type 2 diabetic diet Assessment & Plan ASSESSMENT: * ADA & AACE recommend a goal blood sugar range 140-180 mg/dl for the majority of critically ill & non-critically ill patients. However, more stringent targets may be selected in individual cases. Will utilize more stringent goal of 110-140 mg/dl based on patient age & comorbidities. Additionally, tighter glycemic control is warranted to facilitate wound and infection healing. * Ms Blevins is a 61 y/o F who is well known to the glycemic service. She is admitted today with difficulty breathing. She has chronic and multiple pressure ulcers. She is on antibiotics. While hospitalized, Ms Blevins requires significantly less insulin that as an outpatient. Previous data was utilized to help create the below regimen. * I confirmed with the registered respiratory technician that Ms Blevins did not take her Lantus dose today (previously patient took Lantus in the morning). Since the patient received Solu-Medrol 125 mg IV x 1 in the ED and appears to have a pulmonary infection, Lantus 10 units was scheduled for this evening. The patient typically requires higher doses of Lantus when there is an infection. I also believe that the Solu-Medrol will increase her blood sugars significantly. * A slightly tighter correctional insulin was ordered as well. In previous admissions, the patient fluctuated between 40 and 10 vs 30 and 10 (correction factor and carbohydrate ratio respectively). With the steroids given, the tighter regimen was chosen. This can be loosened tomorrow depending upon additional data. If more steroids are ordered, overnight Accuchecks will be added. * New A1C is ordered. PLAN FOR INPATIENT GLYCEMIC CONTROL: * Basal insulin with LANTUS 10 units SQ qHS * Correctional Insulin with NOVOLOG per scale ACHS * Goal Range: Low 110 mg/dL - High 140 mg/dL * Correction Factor: 30 mg/dL/unit * Nutritional / Prandial insulin per carb ratio of 1 unit per 10 grams CHO consumed * Please note that the plan above was derived based on current level of insulin resistance and hospital stress. These recommendations are appropriate for inpatient admission only. Plan of care upon discharge will need to be reassessed to avoid potential outpatient hypo/hyperglycemia. Thank you.
[2017-03-26 15:12] VITALS: BP 116/66; PULSE 74; TEMP 36.4; O2SAT 95
[2017-03-26 15:46] VITALS: BP 143/80; PULSE 88; TEMP 36.7; O2SAT 97
[2017-03-26] MEDS: ALBUT/IPRATROP 3MG/0.5MG NEB 3 ML VIAL INH SCH ×2 (16:26→19:05)
[2017-03-26 16:31] VITALS: PULSE 84; O2SAT 95
--- NOTE | 2017-03-26 16:38 | History and Physical ---
History & Physical Date & Time of Service: Mar 26, 2017 at 16:06 Chief Complaint: Shortness of Breath Primary Care Physician: Narendra Gonzalez M.D. History of Present Illness 61 year old female who presents to the ER with shortness of breath. Patient was seen by her PCP last week for increasing shortness of breath and cough. She was started on Levaquin for a suspected pneumonia. She reports cough was productive for yellow / green sputum. Noted patient is also on Augmentin and Cipro for chronic hip wounds. She has continued to take these with the Cipro. Today when patient arrived at dialysis she was short of breath. She had her treatment and shortness of breath persisted so she was referred to the ER for further evaluation. Chronic lower extremity edema has been at baseline. She denies fever and chills. No abdominal pain, nausea, vomiting, or diarrhea. She denies chest pain. She reports mild lightheadedness and dizziness with standing at times. She continues to make urine and denies any urinary symptoms. In the ER, patient was saturating 73% on her chronic 4L. This improved with 5L oxygen via NC. CXR is showing a small right pleural effusion. She was treated with IV Solumedrol and neb. Past Medical/Surgical History Medical Problems: (1) Atrial fibrillation Status: Chronic (2) Chronic respiratory failure with hypoxia Status: Chronic (3) chronic wound Status: Chronic (4) COPD (chronic obstructive pulmonary disease) Status: Chronic (5) Depression Status: Chronic (6) DM type 2 (diabetes mellitus, type 2) Status: Chronic (7) ESRD (end stage renal disease) on dialysis Status: Chronic (8) HLD (hyperlipidemia) Status: Chronic (9) HTN (hypertension) Status: Chronic (10) Hypothyroidism Status: Chronic (11) Neuropathy Status: Chronic (12) Pulmonary HTN Status: Chronic (13) RHF (right heart failure) Status: Chronic Surgical Problems: (1) S/P cholecystectomy Status: Chronic (2) S/P debridement Permanent Comment: 08/30/2016- debridement bilateral lower extremity and buttock wounds Status: Chronic Family History Diabetes mellitus MOTHER FH: brain cancer FATHER FH: heart disease MOTHER Social History Smoking Status: Former Smoker Alcohol Use: none Marital Status: Housing status: lives with family Immunizations History of Influenza Vaccine: Yes Influenza Vaccine Date: Jun 19, 2016 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 Allergies Coded Allergies: Bacitracin (Verified Allergy, Intermediate, RASH,ITCH, 03/26/17) Celecoxib (Verified Allergy, Intermediate, RASH TO SULFA DRUGS, 03/26/17) Neomycin (Verified Allergy, Intermediate, RASH,ITCH, 03/26/17) Polymyxin B (Verified Allergy, Intermediate, RASH,ITCH, 03/26/17) Sulfa Antibiotics (Verified Allergy, Intermediate, RASH,HAS TAKEN GLIPIZIDE W/O REACTION, 03/26/17) Tigecycline (Verified Adverse Reaction, Severe, MILD PANCREATITIS, 03/26/17 ) 61 yo F placed on IV tigecycline for wound infection, after 5-6 days developed decreased appetite, had nonspecific abdominal pain from admission and was refusing to lie back for daily abd assessments because of pain in other areas of abdomen. Decreased appetite persisted, also in context of worsening depression and stated apathy, WBC continued to increase, CT chest revealed n/s changes possibly consistent with mild pancreatitis, lipase drawn and elevated, other causes ruled out, clinical pancreatitis on exam. Diruretics/albumin stopped to avoid further rehydration, tigecycline discontinued, continuing supportive care. Codeine (Verified Adverse Reaction, Intermediate, GI UPSET, 03/26/17) Home Medications Scheduled Amoxicillin & Pot Clavulanate (Augmentin 875-125 mg), 875 MG PO BID Ascorbic Acid (Vitamin C), 500 MG PO BID Aspirin (Aspirin Ec), 81 MG PO DAILY Atorvastatin (Lipitor), 40 MG PO DAILY B-Complex W/ C & Folic Acid (Renal Vitamin 0.8 mg), 1 TAB PO DAILY Calcitriol (Rocaltrol Cap), 0.25 MCG PO UD Cholecalciferol (Vitamin D3), 1 CAP PO DAILY Ciprofloxacin (Ciprofloxacin HCl), 750 MG PO BID Cyanocobalamin (Vitamin B-12), 1,000 MCG PO DAILY Docusate Sodium (Colace), 1 CAP PO BID Gabapentin (Neurontin), 400 MG PO BID Home O2 Therapy (Oxygen), 4 LITERS NA CONTINOUS Insulin Aspart (Novolog), Unknown Dose SC AC Insulin Glargine (Lantus Solostar), 30 UNITS SC HS Levofloxacin (Levaquin), 500 MG PO BID Levothyroxine Sodium (Synthroid), 125 MCG PO DAILY Magnesium Oxide (Mag-Ox), 400 MG PO BID Metolazone (Zaroxolyn), 2.5 MG PO WK Metoprolol Succinate (Toprol Xl), 25 MG PO DAILY Miconazole Nitrate (Desenex Shake Powder), 1 APPLN EXT [id number]@0900 Pantoprazole (Protonix), 20 MG PO DAILY Prednisone (Prednisone), 5 MG PO DAILY Sertraline (Zoloft), 100 MG PO DAILY Tiotropium [place] (Spiriva Handihaler), 1 CAP INH DAILY Torsemide (Demadex), 100 MG PO DAILY Warfarin Sod (Coumadin), 2.5 MG PO WK Warfarin Sodium (Coumadin), 5 MG PO [id number] Scheduled PRN Acetaminophen Tab (Tylenol), 650 MG PO Q6H PRN for PAIN OR TEMP > 100F Hydrocodone/Acetaminophen 5MG/325MG ([place] 5MG/325MG), 1 TABLET PO Q6H PRN for Pain Review of Systems Constitutional- no fever; no weight loss Eyes- no acute visual changes ENT- no sinus drainage; no pharyngitis Pulmonary- (+) as noted above Cardiac- no chest pain, no palpitations, no orthopnea, no dependent edema GI- no nausea, no vomiting, no diarrhea, no melena, no hematochezia - no dysuria, no hematuria Musculoskeletal- no arthralgias, no myalgias Derm- no rashes, no new skin lesions, no changing skin lesions Hematologic- no unusual bruising, no unusual bleeding Lymphatics- no adenopathy Endocrine- no polyuria or polydipsia; no heat or cold intolerance Neuro- no headaches, no focal neurologic symptoms Psych- no anxiety, no depression Physical Exam Vital Signs Date Time Temp Pulse Resp B/P (MAP) Pulse Ox O2 Delivery O2 Flow Rate FiO2 03/26/17 15:46 36.7 88 18 143/80 (101) 97 Room Air 03/26/17 15:12 36.4 74 20 116/66 (83) 95 Nasal Cannula 4.0 03/26/17 14:45 71 20 90/44 95 03/26/17 13:54 71 19 86/54 Nasal Cannula 5.0 03/26/17 13:46 95 Nasal Cannula 5.0 03/26/17 13:30 70 03/26/17 12:16 73 22 90/45 95 Room Air 03/26/17 11:15 98 Nasal Cannula 5.0 03/26/17 11:06 96 Nasal Cannula 5.0 03/26/17 10:58 76 03/26/17 10:33 36.7 79 22 90/56 73 Nasal Cannula 4.0 General Appearance: no apparent distress Head: normocephalic Eyes: normal inspection ENT: hearing grossly normal Neck: supple, no JVD Respiratory/Chest: + pertinent finding (coarse breath sounds throughout right lung alvarado; dialysis catheter noted to right anterior chest wall) Cardiovascular: regular rate, rhythm, + pertinent finding (+2 edema BLLE) Abdomen/GI: normal bowel sounds, non tender, soft Extremities/Musculoskelatal: normal inspection, no calf tenderness Neurologic/Psych: no motor/sensory deficits, alert, normal mood/affect, oriented x 3 Skin: + pertinent finding (reported BL hip wounds with wound vac in place) Diagnostics Laboratory Results Results Past 24 Hours Test 03/26/17 11:00 03/26/17 11:05 03/26/17 11:32 Range/Units White Blood Count 17.71 4.8-10.8 K/uL Red Blood Count 4.30 4.2-5.4 M/uL Hemoglobin 9.7 12.0-16.0 g/dL Hematocrit 33.6 37-47 % Mean Corpuscular Volume 78.1 80-100 fL Mean Corpuscular Hemoglobin 22.6 25-34 pg Mean Corpuscular Hemoglobin Concent 28.9 32-36 g/dl Platelet Count 418 130-400 K/uL Mean Platelet Volume 8.5 7.4-10.4 fL Neutrophils (%) (Auto) 82.2 % Lymphocytes (%) (Auto) 5.6 % Monocytes (%) (Auto) 8.5 % Eosinophils (%) (Auto) 1.4 % Basophils (%) (Auto) 0.2 % Neutrophils # (Auto) 14.54 1.4-6.5 K/uL Lymphocytes # (Auto) 1.00 1.2-3.4 K/uL Monocytes # (Auto) 1.50 0.11-0.59 K/uL Eosinophils # (Auto) 0.25 0-0.5 K/uL Basophils # (Auto) 0.04 0-0.2 K/uL RDW Standard Deviation 59.4 36.4-46.3 fL RDW Coefficient of Variation 21.2 11.5-14.5 % Immature Granulocyte % (Auto) 2.1 % Immature Granulocyte # (Auto) 0.38 0.00-0.02 K/uL Large Platelets 1+ Hypochromasia PRESENT Poikilocytosis PRESENT Basophilic Stippling 1+ Anisocytosis PRESENT Prothrombin Time 42.4 9.0-12.0 SECONDS Prothromb Time International Ratio 3.8 0.9-1.1 Activated Partial Thromboplast Time 55.9 21.0-31.0 SECONDS Partial Thromboplastin Ratio 2.2 Sodium Level 134 136-145 mmol/L Potassium Level 3.9 3.5-5.1 mmol/L Chloride Level 97 98-107 mmol/L Carbon Dioxide Level 27 21-32 mmol/L Anion Gap 10.0 3-11 mmol/L Blood Urea Nitrogen 14 7-18 mg/dl Creatinine 2.00 0.60-1.20 mg/dl Est Creatinine Clear Calc Drug Dose 35.4 ml/min Estimated GFR () 30.2 Estimated GFR (Non- 26.1 BUN/Creatinine Ratio 7.1 10-20 Random Glucose 147 70-99 mg/dl Calcium Level 9.1 8.5-10.1 mg/dl Total Bilirubin 0.4 0.2-1 mg/dl Aspartate Amino Transf (AST/SGOT) 46 15-37 U/L Alanine Aminotransferase (ALT/SGPT) 41 12-78 U/L Alkaline Phosphatase 222 45-117 U/L Total Protein 7.4 6.4-8.2 gm/dl Albumin 2.3 3.4-5.0 gm/dl Globulin 5.1 2.5-4.0 gm/dl Albumin/Globulin Ratio 0.5 0.9-2 Bedside Lactic Acid Venous 1.92 0.90-1.70 mmol/L Bedside Troponin I < 0.030 0-0.045 ng/ml ME-Lyv-I-Type Natriuretic Peptide > 98038 > 40124 0-900 pg/ml Microbiology Results 03/26/17 Blood Culture, Received Pending 03/26/17 Blood Culture, Received Pending Diagnostic Radiology CXR IMPRESSION: Moderate stable cardia megaly. Small right pleural effusion improved from the prior exam . No focal infiltrate. Impression Assessment and Plan SHORTNESS OF BREATH, ACUTE ON CHRONIC RESPIRATORY FAILURE VOLUME OVERLOAD IN THE SETTING OF ESRD ON HD AND ACUTE ON CHRONIC RIGHT SIDED CHF COPD - admit to tele - patient presenting with increasing shortness of breath x 1 week with productive cough; was seen by her PCP who prescribed her Levaquin - patient has been taking in addition to her chronic Augmentin and Cipro - today at dialysis she had persistent shortness of breath despite HD treatment and upon arrival to the ER she was hypoxic in the 70s on her chronic 4L - this improved with oxygen 5L via NC, neb, and IV solumedrol - CXR showing small right pleural effusion - no clear infiltrate; WBC 17K however likely due to steroids; do not suspect pneumonia - discussed with Dr. Houston, will plan on daily dialysis with Albumin; continue home doses of Torsemide and metolazone - for COPD, will place on around the clock nebs and continue home inhalers EKG CHANGES - new T-wave inversion anteriorly - no reports of chest pain - initial troponin negative, continue to cycle cardiac enzymes, check resting echo PAROXYSMAL AFIB - currently in NSR - rate controlled on beta reyes, will continue - on Coumadin, INR 3.8 - hold Coumadin and follow up INR tomorrow DM - hgb ac 8.1 12/2016 - continue basal / SSI - glycemic management consult CHRONIC BL HIP WOUNDS - wound care consult HYPOTHYROIDISM - continue Levothyroxine DVT PROPHYLAXIS - on Coumadin, INR > 2.0 CODE STATUS - Patient is a full code as per my discussion with her. DISPO - In my clinical judgment this beneficiary meets acute admission criteria, established by [facility], that includes being hospitalized through two midnights. ATTENDING ADDENDUM care coordinated with ZITA Ordonez please refer to her notes for full details, I agree with her notes patient seen and examined, records reviewed by myself as well on exam, patient seen resting in bedside chair states her breathing is improved since admission still has some dry cough no other symptoms VS noted and reviewed oriented x 3 , not in distress, speaks in sentences with no effort nor accessory muscle use normal rate, regular rhythm, no murmurs (+) bibasilar rales non distended, soft, nontender grade 1-2 bipedal edema, (+) erythema, no warmth no neuro deficits WBC 17.7 crea 2.0 ASSESSMENT/PLAN> VOLUME OVERLOAD SECONDARY TO ESRD ACUTE ON CHRONIC RIGHT SIDED HEART FAILURE - for HD with albumin tomorrow - continue diuretics PAROXYSMAL A FIB - non specific EKG changes - hold coumadin for supratherapeutic INR monitor INR daily other diagnoses and plan of care as per ZITA Ordonez's notes Cooper Chaudhary MD Advanced Directives Existing Living Will: No Existing Power of Tech Writer: No VTE Prophylaxis VTE Risk Assessment Done? Y/N: Yes Risk Level: Moderate Given or contraindicated: Warfarin (Coumadin)
[2017-03-26] MEDS: INSULIN ASPART 100 UNITS/ML 3 ML PEN SC SCH ×2 (17:36→20:55)
--- NOTE | 2017-03-26 17:42 | EMERGENCY ROOM VISIT NOTE ---
History Report prepared by Hailey: Vanna Fabian Under the Supervision of: Dr. Yaya Soto M.D. First contact with patient: 10:39 Chief Complaint: RESPIRATORY PROBLEMS Stated Complaint: RESPIRATORY PROBLEMS History of Present Illness The patient is a 61 year old female who presents to the Emergency Room with complaints of constant shortness of breath beginning this morning. The patient states that she was at dialysis and was referred to the ED due to her shortness of breath. Patient receives dialysis 3 times a week for the past 2 months. She was put on Levaquin 8 days ago for possible pneumonia. No chest X-Ray was done at the time. She does have a chronic cough. The patient wear 4 liters of oxygen at home. Her pulse ox is normally 85%-90%. The patient denies chest pain or feeling lightheaded. She notes a history of COPD, CHF, and kidney disease. The patient is currently on 5 mg of Prednisone. Source of History: patient Onset: this morning Position: other (global) Quality: other (shortness of breath) Timing: constant Associated Symptoms: + cough, No chest pain Note: The patient denies feeling lightheaded. Review of Systems See HPI for pertinent positives & negatives. A total of 10 systems reviewed and were otherwise negative. Past Medical & Surgical Medical Problems: (1) Atrial fibrillation (2) Chronic respiratory failure with hypoxia (3) chronic wound (4) COPD (chronic obstructive pulmonary disease) (5) Depression (6) DM type 2 (diabetes mellitus, type 2) (7) ESRD (end stage renal disease) on dialysis (8) HLD (hyperlipidemia) (9) HTN (hypertension) (10) Hypothyroidism (11) Neuropathy (12) Pulmonary HTN (13) RHF (right heart failure) Surgical Problems: (1) S/P cholecystectomy (2) S/P debridement Family History Cancer Diabetes mellitus FH: heart disease FHx: lung disease Hypertension Kidney stones Social History Smoking Status: Former Smoker Drug Use: none Marital Status: Housing Status: lives with family Occupation Status: disabled Current/Historical Medications Scheduled Amoxicillin & Pot Clavulanate (Augmentin 875-125 mg), 875 MG PO BID Ascorbic Acid (Vitamin C), 500 MG PO BID Aspirin (Aspirin Ec), 81 MG PO DAILY Atorvastatin (Lipitor), 40 MG PO DAILY B-Complex W/ C & Folic Acid (Renal Vitamin 0.8 mg), 1 TAB PO DAILY Calcitriol (Rocaltrol Cap), 0.25 MCG PO UD Cholecalciferol (Vitamin D3), 1 CAP PO DAILY Ciprofloxacin (Ciprofloxacin HCl), 750 MG PO BID Cyanocobalamin (Vitamin B-12), 1,000 MCG PO DAILY Docusate Sodium (Colace), 1 CAP PO BID Gabapentin (Neurontin), 400 MG PO BID Home O2 Therapy (Oxygen), 4 LITERS NA CONTINOUS Insulin Aspart (Novolog), Unknown Dose SC AC Insulin Glargine (Lantus Solostar), 30 UNITS SC HS Levofloxacin (Levaquin), 500 MG PO BID Levothyroxine Sodium (Synthroid), 125 MCG PO DAILY Magnesium Oxide (Mag-Ox), 400 MG PO BID Metolazone (Zaroxolyn), 2.5 MG PO WK Metoprolol Succinate (Toprol Xl), 25 MG PO DAILY Miconazole Nitrate (Desenex Shake Powder), 1 APPLN EXT [id number]@0900 Pantoprazole (Protonix), 20 MG PO DAILY Prednisone (Prednisone), 5 MG PO DAILY Sertraline (Zoloft), 100 MG PO DAILY Tiotropium [place] (Spiriva Handihaler), 1 CAP INH DAILY Torsemide (Demadex), 100 MG PO DAILY Warfarin Sod (Coumadin), 2.5 MG PO WK Warfarin Sodium (Coumadin), 5 MG PO [id number] Scheduled PRN Acetaminophen Tab (Tylenol), 650 MG PO Q6H PRN for PAIN OR TEMP > 100F Hydrocodone/Acetaminophen 5MG/325MG ([place] 5MG/325MG), 1 TABLET PO Q6H PRN for Pain Allergies Coded Allergies: Bacitracin (Verified Allergy, Intermediate, RASH,ITCH, 03/26/17) Celecoxib (Verified Allergy, Intermediate, RASH TO SULFA DRUGS, 03/26/17) Neomycin (Verified Allergy, Intermediate, RASH,ITCH, 03/26/17) Polymyxin B (Verified Allergy, Intermediate, RASH,ITCH, 03/26/17) Sulfa Antibiotics (Verified Allergy, Intermediate, RASH,HAS TAKEN GLIPIZIDE W/O REACTION, 03/26/17) Tigecycline (Verified Adverse Reaction, Severe, MILD PANCREATITIS, 03/26/17 ) 61 yo F placed on IV tigecycline for wound infection, after 5-6 days developed decreased appetite, had nonspecific abdominal pain from admission and was refusing to lie back for daily abd assessments because of pain in other areas of abdomen. Decreased appetite persisted, also in context of worsening depression and stated apathy, WBC continued to increase, CT chest revealed n/s changes possibly consistent with mild pancreatitis, lipase drawn and elevated, other causes ruled out, clinical pancreatitis on exam. Diruretics/albumin stopped to avoid further rehydration, tigecycline discontinued, continuing supportive care. Codeine (Verified Adverse Reaction, Intermediate, GI UPSET, 03/26/17) Physical Exam Vital Signs Date Time Temp Pulse Resp B/P (MAP) Pulse Ox O2 Delivery O2 Flow Rate FiO2 03/26/17 14:45 71 20 90/44 95 03/26/17 13:54 71 19 86/54 Nasal Cannula 5.0 03/26/17 13:46 95 Nasal Cannula 5.0 03/26/17 13:30 70 03/26/17 12:16 73 22 90/45 95 Room Air 03/26/17 11:15 98 Nasal Cannula 5.0 03/26/17 11:06 96 Nasal Cannula 5.0 03/26/17 10:58 76 03/26/17 10:33 36.7 79 22 90/56 73 Nasal Cannula 4.0 Physical Exam Constitutional: Vital signs reviewed. Eyes: Pupils are equal round reactive to light. Conjunctiva are noninjected. ENT: Pharynx is clear without erythema or exudate. Mucous membranes are moist. Neck supple without meningeal signs. Respiratory: Bibasilar crackles. Scattered wheezing. Breath sounds are equal bilaterally. O2 saturation is 92% on 6 liters of oxygen. Cardiovascular: Regular rate and rhythm. No rubs or gallops. GI: Soft, nondistended and nontender. Bowel sounds are present. Musculoskeletal: Lower extremity edema. Integumentary: No cyanosis. Neurological: The patient is awake and alert. No focal deficits. Psychiatric: Normal affect. Medical Decision & Procedures ER Provider Diagnostic Interpretation: X-ray results as stated below per interpretation by me and the radiologist: CHEST ONE VIEW PORTABLE CLINICAL HISTORY: Sepsis sepsis COMPARISON STUDY: 03/06/2017 FINDINGS: Moderate stable cardiomegaly. Small right pleural effusion slightly improved as compared to the prior study. PermCath in superior vena cava. Lungs otherwise are clear. IMPRESSION: Moderate stable cardia megaly. Small right pleural effusion improved from the prior exam . No focal infiltrate. Electronically signed by: Bird Patino M.D. 03/26/2017 11:26 AM Dictated Date/Time: 03/26/2017 11:25 AM Laboratory Results 03/26/17 11:00 Red Blood Count 4.30, Mean Corpuscular Volume 78.1, Mean Corpuscular Hemoglobin 22.6, Mean Corpuscular Hemoglobin Concent 28.9, Mean Platelet Volume 8.5, Neutrophils (%) (Auto) 82.2, Lymphocytes (%) (Auto) 5.6, Monocytes (%) (Auto) 8.5, Eosinophils (%) (Auto) 1.4, Basophils (%) (Auto) 0.2, Neutrophils # (Auto) 14.54, Lymphocytes # (Auto) 1.00, Monocytes # (Auto) 1.50, Eosinophils # (Auto) 0.25, Basophils # (Auto) 0.04 03/26/17 11:00 Test 03/26/17 11:00 03/26/17 11:05 03/26/17 11:32 White Blood Count 17.71 K/uL (4.8-10.8) Red Blood Count 4.30 M/uL (4.2-5.4) Hemoglobin 9.7 g/dL (12.0-16.0) Hematocrit 33.6 % (37-47) Mean Corpuscular Volume 78.1 fL (80-100) Mean Corpuscular Hemoglobin 22.6 pg (25-34) Mean Corpuscular Hemoglobin Concent 28.9 g/dl (32-36) Platelet Count 418 K/uL (130-400) Mean Platelet Volume 8.5 fL (7.4-10.4) Neutrophils (%) (Auto) 82.2 % Lymphocytes (%) (Auto) 5.6 % Monocytes (%) (Auto) 8.5 % Eosinophils (%) (Auto) 1.4 % Basophils (%) (Auto) 0.2 % Neutrophils # (Auto) 14.54 K/uL (1.4-6.5) Lymphocytes # (Auto) 1.00 K/uL (1.2-3.4) Monocytes # (Auto) 1.50 K/uL (0.11-0.59) Eosinophils # (Auto) 0.25 K/uL (0-0.5) Basophils # (Auto) 0.04 K/uL (0-0.2) RDW Standard Deviation 59.4 fL (36.4-46.3) RDW Coefficient of Variation 21.2 % (11.5-14.5) Immature Granulocyte % (Auto) 2.1 % Immature Granulocyte # (Auto) 0.38 K/uL (0.00-0.02) Large Platelets 1+ Hypochromasia PRESENT Poikilocytosis PRESENT Basophilic Stippling 1+ Anisocytosis PRESENT Prothrombin Time 42.4 SECONDS (9.0-12.0) Prothromb Time International Ratio 3.8 (0.9-1.1) Activated Partial Thromboplast Time 55.9 SECONDS (21.0-31.0) Partial Thromboplastin Ratio 2.2 Anion Gap 10.0 mmol/L (3-11) Est Creatinine Clear Calc Drug Dose 35.4 ml/min Estimated GFR () 30.2 Estimated GFR (Non- 26.1 BUN/Creatinine Ratio 7.1 (10-20) Calcium Level 9.1 mg/dl (8.5-10.1) Total Bilirubin 0.4 mg/dl (0.2-1) Aspartate Amino Transf (AST/SGOT) 46 U/L (15-37) Alanine Aminotransferase (ALT/SGPT) 41 U/L (12-78) Alkaline Phosphatase 222 U/L (45-117) Total Protein 7.4 gm/dl (6.4-8.2) Albumin 2.3 gm/dl (3.4-5.0) Globulin 5.1 gm/dl (2.5-4.0) Albumin/Globulin Ratio 0.5 (0.9-2) Bedside Lactic Acid Venous 1.92 mmol/L (0.90-1.70) Bedside Troponin I < 0.030 ng/ml (0-0.045) SV-Tmd-H-Type Natriuretic Peptide > 94456 pg/ml (0-900) POC - BUN greater than 20,000. Troponin negative. Laboratory results as reviewed by me. Medications Administered Medications (Trade) Dose Ordered Sig/Tyrone Route Start Time Stop Time Status Last Admin Dose Admin Albuterol/ Ipratropium (Duoneb) 3 ml NOW STAT INH 03/26/17 10:47 03/26/17 10:49 DC 03/26/17 11:22 3 ML Methylprednisolone Sodium Succinate (Solu-Medrol IV) 125 mg NOW STAT IV 03/26/17 10:51 03/26/17 10:52 DC 03/26/17 11:22 125 MG Sodium Chloride 250 ml @ 999 mls/hr Q16M STAT IV 03/26/17 10:52 03/26/17 11:07 DC 03/26/17 11:21 999 MLS/HR ECG Indication: SOB/dyspnea Rate (beats per minute): 77 Rhythm: sinus rhythm Findings: 1st degree AV block, T-wave inversion (v1-v3, lead 3, aVF) Comparison ECG Date: new compared to December 24, 2016 ED Course 1041: The patient was evaluated in room B10. A complete history and physical exam was performed. 1047: Duoneb 3 ml INH, Solu-Medrol IV 125 mg IV, Sodium Chloride 250 ml @ 999 mls/hr IV. 1236: I reevaluated the patient. She is feeling better. The patient has better air entry with scattered wheezing. She feels reluctant to stay in the hospital. 1249: The patient has agreed to hospitalization. 1252: I spoke with ZITA Malone of [facility]. We discussed the patient and her results. The patient will be further evaluated by ZITA Malone - [facility]. Medical Decision This is a 61-year-old female presents with dyspnea. Differential diagnosis includes pneumonia, pleural effusion, CHF exacerbation, COPD exacerbation, hypoxia, pulmonary embolism. I did perform a limited focused review of portions of the patient's old chart on the electronic medical record. The patient was hospitalized for acute on-chronic CHF on December 20. She is followed by wound care clinic for ulcerations on left and right leg. Medication Reconciliation: I attest that I have personally reviewed the patient' s current medication list. Blood Pressure Screening: Patient was found to have normal blood pressure on screening and does not require follow-up. I did evaluate the patient as noted above. IV access was established. The patient was placed on a continuous environmental monitoring technician. The patient is hypoxemic. She was placed on 6 L of O2 and felt better. I did treat her with a DuoNeb as well as IV Solu-Medrol. I did order and personally review the patient's 12-lead EKG and chest x-ray as described above. Her chest x-ray demonstrates a small right pleural effusion without signs of consolidation. I did order and review the patient's blood work as noted in the electronic medical record. Her white blood cell count is significant elevated, but she states this is normal for her. She is on prednisone. Her BNP is greater than 20,000. Creatinine is 2 which is consistent with her renal disease. I did reassess the patient. I did discuss the test results with the patient. Because of her hypoxemia did recommend hospitalization for further evaluation. I did discuss the case with the hospitalist and gearcase assembler. Consults Time Called: 1250 Consulting Physician: ZITA Malone Returned Call: 1252 I spoke with ZITA Malone of [facility]. We discussed the patient and her results. The patient will be further evaluated by ZITA Malone. Impression Primary Impression: Hypoxia Additional Impressions: COPD exacerbation Acute exacerbation of CHF (congestive heart failure) Supratherapeutic INR Pleural effusion, right Scribe Attestation The scribe's documentation has been prepared under my direct and personally reviewed by me in its entirety. I confirm that the note above accurately reflects all work, treatment, procedures, and medical decision making performed by me. Departure Information Dispostion Being Evaluated By Hospitalist Narendra Lockhart M.D. (PCP) Problem Qualifiers Additional Impressions: Acute exacerbation of CHF (congestive heart failure) Congestive heart failure type: unspecified congestive heart failure type Qualified Codes: I50.9 - Heart failure, unspecified
[2017-03-26 19:05] VITALS: PULSE 88; O2SAT 95
[2017-03-26 19:41] VITALS: BP 100/64; PULSE 83; TEMP 36.8; O2SAT 92
[2017-03-26] MEDS: MAGNESIUM OXIDE 400 MG TAB PO SCH (20:41)
[2017-03-26] MEDS: GABAPENTIN 400 MG CAP PO SCH (20:42)
[2017-03-26] MEDS: DOCUSATE SODIUM 100 MG CAP PO SCH (20:42)
[2017-03-26] MEDS: AMOXICILLIN/CLAVULANATE TAB 875 MG TAB PO SCH (20:42)
[2017-03-26] MEDS: ASCORBIC ACID 500 MG TAB PO SCH (20:42)
[2017-03-26] MEDS: CIPROFLOXACIN 250 MG TAB PO SCH (20:43)
[2017-03-26] MEDS: HYDROCODONE/ACETAMOPHEN 5/325MG TAB PO PRN (20:56)
[2017-03-26] MEDS: INSULIN GLARGINE SOLOSTAR 100 UNITS/ML 3 ML PEN SC SCH (20:56)
[2017-03-26] MEDS ORDERED: CIPROFLOXACIN 250 MG TAB PO SCH (21:00)
[2017-03-27] VITALS (27 sets, daily range): BP systolic 80–138; BP diastolic 44–75; PULSE 73–92; TEMP 36.3–36.9; O2SAT 94–100
[2017-03-27] MEDS: HYDROCODONE/ACETAMOPHEN 5/325MG TAB PO PRN ×3 (04:42→18:52)
[2017-03-27] MEDS: LEVOTHYROXINE 125 MCG TAB PO SCH (05:57)
[2017-03-27] MEDS ORDERED: ALBUMIN HUMAN 25% 12.5 GM/50 ML VIAL IV STA (06:32)
[2017-03-27] MEDS ORDERED: EPOETIN ALFA 10,000 UNITS/ML VIAL IV. STA (06:32)
[2017-03-27 06:47] LABS: INR 3.5 (0.9-1.1); PROTHROMBIN TIME (PATIENT) 39.5 SECONDS (9.0-12.0)
[2017-03-27 06:49] LABS: MEAN CORPUSCULAR HEMOGLOBIN 22.5 pg (25-34); MEAN CORPUSCULAR HGB CONC 28.8 g/dl (32-36); PLATELET COUNT 371 K/uL (130-400); RED BLOOD COUNT 4.23 M/uL (4.2-5.4); WHITE BLOOD COUNT 14.11 K/uL (4.8-10.8)
[2017-03-27] MEDS: ALBUT/IPRATROP 3MG/0.5MG NEB 3 ML VIAL INH SCH ×4 (07:07→18:50)
--- NOTE | 2017-03-27 07:11 | Nephrology Consultation ---
Nephrology Consultation Date of Consultation: Mar 27, 2017. Attending Physician: Jet Reason for Consultation: esrd History of Present Illness Patient is a 61 year old female with ESRD who dialyzes at the [facility] on . Patient was evaluated friday on dialysis and was having more difficulty with breathing. bp low and difficult to remove fluid on dialysis. pt was on oral levaquin for a possible bronchitis and had two days left of the levaquin. pt was hypoxic on dialysis with o2 sats in the low 80s. chest xray shows a pleural effusion. this morning, breathing easier and slept well. for echo this morning. given nebulizers and steroids. Past Medical/Surgical History Medical Problems: (1) Acute exacerbation of CHF (congestive heart failure) Status: Acute (2) FRED (acute kidney injury) Status: Acute (3) CHF (congestive heart failure) Status: Acute (4) Congestive heart failure Status: Acute (5) Congestive heart failure Status: Acute (6) Congestive heart failure Status: Acute (7) COPD exacerbation Status: Acute (8) Hypoxia Status: Acute (9) Hypoxia Status: Acute (10) Leukocytosis Status: Acute (11) Leukocytosis Status: Acute (12) Low grade fever Status: Acute (13) Low grade fever Status: Acute (14) Pleural effusion, right Status: Acute (15) Rapid atrial fibrillation Status: Acute (16) Rapid atrial fibrillation Status: Acute (17) Renal insufficiency Status: Acute (18) Sepsis Status: Acute (19) Sepsis associated hypotension Status: Acute (20) Severe sepsis with acute organ dysfunction Status: Acute (21) Shortness of breath Status: Acute (22) Supratherapeutic INR Status: Acute ESRD Afib COPD Type 2 DM Hyperlipidemia HTN Hypothyroidism Pulmonary HTN with Right sided failure Chronic wounds on pannus-resolving tunneled dialysis catheter cholecystectomy debridement of necrotic skin on pannus Family History Diabetes mellitus MOTHER FH: brain cancer FATHER FH: heart disease MOTHER Social History Smoking Status: Former Smoker Alcohol Use: none Drug Use: none Marital Status: Housing Status: lives with family Occupation Status: disabled Allergies Coded Allergies: Bacitracin (Verified Allergy, Intermediate, RASH,ITCH, 03/26/17) Celecoxib (Verified Allergy, Intermediate, RASH TO SULFA DRUGS, 03/26/17) Neomycin (Verified Allergy, Intermediate, RASH,ITCH, 03/26/17) Polymyxin B (Verified Allergy, Intermediate, RASH,ITCH, 03/26/17) Sulfa Antibiotics (Verified Allergy, Intermediate, RASH,HAS TAKEN GLIPIZIDE W/O REACTION, 03/26/17) Tigecycline (Verified Adverse Reaction, Severe, MILD PANCREATITIS, 03/26/17 ) 61 yo F placed on IV tigecycline for wound infection, after 5-6 days developed decreased appetite, had nonspecific abdominal pain from admission and was refusing to lie back for daily abd assessments because of pain in other areas of abdomen. Decreased appetite persisted, also in context of worsening depression and stated apathy, WBC continued to increase, CT chest revealed n/s changes possibly consistent with mild pancreatitis, lipase drawn and elevated, other causes ruled out, clinical pancreatitis on exam. Diruretics/albumin stopped to avoid further rehydration, tigecycline discontinued, continuing supportive care. Codeine (Verified Adverse Reaction, Intermediate, GI UPSET, 03/26/17) Medications Current Inpatient Medications Medications (Trade) Dose Ordered Sig/Tyrone Route Start Time Stop Time Status Last Admin Dose Admin Acetaminophen (Tylenol Tab) 650 mg Q4H PRN PO 03/26/17 14:00 04/25/17 13:59 Ondansetron HCl (Zofran Inj) 4 mg Q6H PRN IV 03/26/17 14:00 04/25/17 13:59 Nitroglycerin (Nitrostat Tab) 0.4 mg UD PRN SL 03/26/17 14:00 04/25/17 13:59 Albuterol/ Ipratropium (Duoneb) 3 ml QIDR INH 03/26/17 16:00 04/25/17 15:59 03/26/17 19:05 3 ML Insulin Glargine (Lantus Solostar Pen) 10 units HS SC 03/26/17 21:00 04/25/17 20:59 03/26/17 20:56 10 UNITS Insulin Aspart (novoLOG ASPART) SLIDING SCALE If C... ACHS SC 03/26/17 16:00 04/25/17 15:59 03/26/17 20:55 7 UNITS Glucose (Glucose 40% Gel) 15-30 GRAMS 15 GRAMS... UD PRN PO 03/26/17 14:15 04/25/17 14:14 Glucose (Glucose Chew Tab) 4-8 Tablets 4 Tabl... UD PRN PO 03/26/17 14:15 04/25/17 14:14 Dextrose (Dextrose 50% 50ML Syringe) 25-50ML OF 50% DW IV FOR... UD PRN IV 03/26/17 14:15 04/25/17 14:14 Glucagon (Glucagon Inj) 1 mg UD PRN SQ 03/26/17 14:15 04/25/17 14:14 Miscellaneous Information (Consult Glycemic Management Pharmacy) 1 ea UD PRN N/A 03/26/17 14:04 04/25/17 14:03 Amoxicillin/ Clavulanate Potassium (Augmentin Tab) 875 mg BID PO 03/26/17 21:00 04/05/17 20:59 03/26/17 20:42 875 MG Ascorbic Acid (Vitamin C Tab) 500 mg BID PO 03/26/17 21:00 04/25/17 20:59 03/26/17 20:42 500 MG Aspirin (Ecotrin Tab) 81 mg DAILY PO 03/27/17 09:00 04/26/17 08:59 Atorvastatin Calcium (Lipitor Tab) 40 mg DAILY PO 03/27/17 09:00 04/26/17 08:59 Calcitriol (Rocaltrol Cap) 0.25 mcg MoWeFr@0900 PO 03/28/17 09:00 04/27/17 08:59 Cyanocobalamin (Vitamin B-12 Tab) 1,000 mcg DAILY PO 03/27/17 09:00 04/26/17 08:59 Docusate Sodium (coLACE CAP) 100 mg BID PO 03/26/17 21:00 04/25/17 20:59 03/26/17 20:42 100 MG Gabapentin (Neurontin Cap) 400 mg BID PO 03/26/17 21:00 04/25/17 20:59 03/26/17 20:42 400 MG Levothyroxine Sodium (Synthroid Tab) 125 mcg DAILYBB PO 03/27/17 06:30 04/26/17 06:29 03/27/17 05:57 125 MCG Magnesium Oxide (Mag-Ox Tab) 400 mg BID PO 03/26/17 21:00 04/25/17 20:59 03/26/17 20:41 400 MG Metoprolol Succinate (Toprol Xl Tab) 25 mg DAILY PO 03/27/17 09:00 04/26/17 08:59 Miconazole Nitrate (Desenex Powder) 1 appln MoWeFr@0900 EXT 03/28/17 09:00 04/27/17 08:59 Prednisone (PredniSONE TAB) 5 mg DAILY PO 03/27/17 09:00 04/26/17 08:59 Sertraline HCl (Zoloft Tab) 100 mg DAILY PO 03/27/17 09:00 04/26/17 08:59 Tiotropium [place] (Spiriva Handihaler Inhaler) 30 puff DAILY INH 03/27/17 09:00 04/26/17 08:59 Torsemide (Demadex Tab) 100 mg DAILY PO 03/27/17 09:00 04/26/17 08:59 Miscellaneous Information (Order Awaiting Action) 1 ea QS N/A 03/26/17 16:00 04/25/17 15:59 Cholecalciferol (Vitamin D Tab) 2,000 inter.unit DAILY PO 03/27/17 09:00 04/26/17 08:59 Pantoprazole Sodium (Protonix Tab) 40 mg DAILY PO 03/27/17 09:00 04/26/17 08:59 Acetaminophen/ Hydrocodone Bitart ([place] 5/325 Tab) 1 tab Q6H PRN PO 03/26/17 14:15 04/09/17 14:14 03/27/17 04:42 1 TAB Metolazone (Zaroxolyn Tab) 2.5 mg Q7D@0830 PO 04/05/17 08:30 04/28/17 08:59 Ciprofloxacin (Ciprofloxacin Tab) 750 mg BID PO 03/26/17 21:00 04/05/17 20:59 03/26/17 20:43 750 MG Home Meds and Scripts Medications Dose Route/Sig Max Daily Dose Days Date Category Dose Instructions [place] 5MG/325MG (Acetaminophen/Hydrocodone Bitart) Tab 1 Tablet PO Q6H PRN 03/26/17 Reported PRN PAIN Levaquin (Levofloxacin) 500 Mg Tab 500 Mg PO BID 03/26/17 Reported ENDS 03-27-17 Oxygen Gas 4 Liters NA CONTINOUS 03/26/17 Reported Novolog (Insulin Aspart) 100 Units/Ml Inj Unknown Dose SC AC 03/26/17 Reported SLIDING SCALE Lantus Solostar (Insulin Glargine) 100 Unit/Ml Inj 30 Units SC HS 03/26/17 Reported Aspirin Ec (Aspirin) 81 Mg Tab 81 Mg PO DAILY 03/26/17 Reported Vitamin D3 (Cholecalciferol) 2,000 Unit Cap 1 Cap PO DAILY 03/26/17 Reported Spiriva Handihaler (Tiotropium [place]) 30 Puff/540 Mcg Aerp 1 Cap INH DAILY 03/26/17 Reported Coumadin (Warfarin Sod) 2.5 Mg Tab 2.5 Mg PO WK 03/26/17 Reported THURS Coumadin (Warfarin Sodium) 5 Mg Tab 5 Mg PO 6XWK 03/26/17 Reported MON,TUES,WED,FRI,SAT,SUN Colace (Docusate Sodium) 100 Mg Cap 1 Cap PO BID 03/26/17 Reported Renal Vitamin 0.8 mg (B-Complex W/ C & Folic Acid) 1 Tab Tab 1 Tab PO DAILY 03/26/17 Reported Ciprofloxacin HCl (Ciprofloxacin) 750 Mg Tab 750 Mg PO BID 30 02/06/17 Rx Augmentin 875-125 mg (Amoxicillin & Pot Clavulanate) 1 Tab Tab 875 Mg PO BID 30 02/06/17 Rx Desenex Shake Powder (Miconazole Nitrate) 43 Appln/43 Gm Powd 1 Appln EXT MOWEFR@0900 7 12/04/16 Rx Tylenol (Acetaminophen) 325 Mg Tab 650 Mg PO Q6H PRN 10/15/16 Reported NTE 3GM APAP/24HRS Zaroxolyn (Metolazone) 2.5 Mg Tab 2.5 Mg PO WK 10/15/16 Reported TAKE EVERY FRIDAY Demadex (Torsemide) 100 Mg Tab 100 Mg PO DAILY 10/15/16 Reported Vitamin C (Ascorbic Acid) 500 Mg Tab 500 Mg PO BID 10/15/16 Reported Zoloft (Sertraline HCl) 100 Mg Tab 100 Mg PO DAILY 10/15/16 Reported Prednisone 5 Mg Tab 5 Mg PO DAILY 08/10/16 Reported Toprol Xl (Metoprolol Succinate) 50 Mg Tab 25 Mg PO DAILY 08/10/16 Reported Lipitor (Atorvastatin Calcium) 40 Mg Tab 40 Mg PO DAILY 08/10/16 Reported Rocaltrol Cap (Calcitriol) 0.25 Mcg Cap 0.25 Mcg PO UD 07/11/16 Reported MWF Mag-Ox (Magnesium Oxide) 400 Mg Tab 400 Mg PO BID 07/11/16 Reported Vitamin B-12 (Cyanocobalamin) 1,000 Mcg Tab 1,000 Mcg PO DAILY 09/16/14 Reported Synthroid (Levothyroxine Sodium) 125 Mcg Tab 125 Mcg PO DAILY 09/16/14 Reported Neurontin (Gabapentin) 400 Mg Cap 400 Mg PO BID 08/06/11 Reported Protonix (Pantoprazole Sodium) 20 Mg Tab 20 Mg PO DAILY 08/06/11 Reported Review of Systems Constitutional: No fever, No chills Eyes: No redness Respiratory: + shortness of breath Cardiac: + edema, No chest pain Abdomen: No nausea, No vomiting Musculoskeletal: No joint pain Female : No dysuria Neuro: + weakness Endo: + fatigue Skin: No rash all other review of systems otherwise negative Physical Exam Date Time Temp Pulse Resp B/P (MAP) Pulse Ox O2 Delivery O2 Flow Rate FiO2 03/27/17 04:06 36.5 74 16 103/52 (69) 94 Nasal Cannula 3.0 03/27/17 04:00 95 Nasal Cannula 4.0 03/27/17 00:00 95 Nasal Cannula 4.0 03/27/17 00:00 36.9 78 20 131/65 (87) 94 Nasal Cannula 03/26/17 20:30 Nasal Cannula 4.0 03/26/17 19:41 36.8 83 20 100/64 (76) 92 Nasal Cannula 3.0 03/26/17 19:05 88 18 95 Nasal Cannula 4.0 03/26/17 16:31 84 16 95 Nasal Cannula 4.0 03/26/17 16:10 Nasal Cannula 4.0 03/26/17 15:46 36.7 88 18 143/80 (101) 97 Room Air 03/26/17 15:12 36.4 74 20 116/66 (83) 95 Nasal Cannula 4.0 03/26/17 14:45 71 20 90/44 95 03/26/17 13:54 71 19 86/54 Nasal Cannula 5.0 03/26/17 13:46 95 Nasal Cannula 5.0 03/26/17 13:30 70 03/26/17 12:16 73 22 90/45 95 Room Air 03/26/17 11:15 98 Nasal Cannula 5.0 03/26/17 11:06 96 Nasal Cannula 5.0 03/26/17 10:58 76 03/26/17 10:33 36.7 79 22 90/56 73 Nasal Cannula 4.0 General Appearance: + mild distress Eyes: normal inspection ENT: normal ENT inspection Neck: supple Respiratory/Chest: + decreased breath sounds Cardiovascular: regular rate, rhythm, no edema Abdomen: normal bowel sounds, non tender, soft Extremities: + pedal edema Neurologic/Psych: no motor/sensory deficits, alert Skin: normal color, + pertinent finding (+chronic venous stasis changes) Diagnostics Last 24 Hours Test 03/26/17 11:00 03/26/17 11:05 03/26/17 11:32 03/26/17 16:16 White Blood Count 17.71 K/uL Red Blood Count 4.30 M/uL Hemoglobin 9.7 g/dL Hematocrit 33.6 % Mean Corpuscular Volume 78.1 fL Mean Corpuscular Hemoglobin 22.6 pg Mean Corpuscular Hemoglobin Concent 28.9 g/dl Platelet Count 418 K/uL Mean Platelet Volume 8.5 fL Neutrophils (%) (Auto) 82.2 % Lymphocytes (%) (Auto) 5.6 % Monocytes (%) (Auto) 8.5 % Eosinophils (%) (Auto) 1.4 % Basophils (%) (Auto) 0.2 % Neutrophils # (Auto) 14.54 K/uL Lymphocytes # (Auto) 1.00 K/uL Monocytes # (Auto) 1.50 K/uL Eosinophils # (Auto) 0.25 K/uL Basophils # (Auto) 0.04 K/uL RDW Standard Deviation 59.4 fL RDW Coefficient of Variation 21.2 % Immature Granulocyte % (Auto) 2.1 % Immature Granulocyte # (Auto) 0.38 K/uL Large Platelets 1+ Hypochromasia PRESENT Poikilocytosis PRESENT Basophilic Stippling 1+ Anisocytosis PRESENT Prothrombin Time 42.4 SECONDS Prothromb Time International Ratio 3.8 Activated Partial Thromboplast Time 55.9 SECONDS Partial Thromboplastin Ratio 2.2 Sodium Level 134 mmol/L Potassium Level 3.9 mmol/L Chloride Level 97 mmol/L Carbon Dioxide Level 27 mmol/L Anion Gap 10.0 mmol/L Blood Urea Nitrogen 14 mg/dl Creatinine 2.00 mg/dl Est Creatinine Clear Calc Drug Dose 35.4 ml/min Estimated GFR () 30.2 Estimated GFR (Non- 26.1 BUN/Creatinine Ratio 7.1 Random Glucose 147 mg/dl Calcium Level 9.1 mg/dl Total Bilirubin 0.4 mg/dl Aspartate Amino Transf (AST/SGOT) 46 U/L Alanine Aminotransferase (ALT/SGPT) 41 U/L Alkaline Phosphatase 222 U/L Total Protein 7.4 gm/dl Albumin 2.3 gm/dl Globulin 5.1 gm/dl Albumin/Globulin Ratio 0.5 Bedside Lactic Acid Venous 1.92 mmol/L Bedside Troponin I < 0.030 ng/ml KV-Hpe-D-Type Natriuretic Peptide > 16997 pg/ml > 87706 pg/ml Bedside Glucose 201 mg/dl Test 03/26/17 16:51 03/26/17 23:00 03/26/17 23:09 03/27/17 06:13 Creatine Kinase MB 0.7 ng/ml 0.6 ng/ml Creatine Kinase MB Ratio Troponin I < 0.015 ng/ml < 0.015 ng/ml White Blood Count 14.11 K/uL Red Blood Count 4.23 M/uL Hemoglobin 9.5 g/dL Hematocrit 33.0 % Mean Corpuscular Volume 78.0 fL Mean Corpuscular Hemoglobin 22.5 pg Mean Corpuscular Hemoglobin Concent 28.8 g/dl RDW Standard Deviation 60.2 fL RDW Coefficient of Variation 21.1 % Platelet Count 371 K/uL Mean Platelet Volume 8.0 fL Prothrombin Time 39.5 SECONDS Prothromb Time International Ratio 3.5 Assessment & Plan ESRD-compliant with dialysis and have diuresed a significant amount of fluid since starting on dialysis. however with recent infection/chf episode with worsening hypoxia-brought in for further care. feel prudent coarse is to dialyze daily with albumin to help optimize breathing and volume status. pt does look more comfortable this morning after nebs and steroids as well. still with coarse breath sounds. Anemia of Renal Failure-hg levels are stable and will continue procrit with goal hg of 10 to 11
[2017-03-27 07:14] LABS: BUN/CREATININE RATIO 9.4 (10-20); CALCIUM 9.6 mg/dl (8.5-10.1); CREATININE 2.8 mg/dl (0.60-1.20); POTASSIUM 4.1 mmol/L (3.5-5.1)
[2017-03-27 07:18] LABS: ESTIMATED AVERAGE GLUCOSE 143 mg/dl; HA1C FLAG Normal (Normal)
[2017-03-27] MEDS: GABAPENTIN 400 MG CAP PO SCH ×2 (07:43→21:16)
[2017-03-27] MEDS: CYANOCOBALAMIN 500 MCG TAB (VIT B-12) PO SCH (07:43)
[2017-03-27] MEDS: AMOXICILLIN/CLAVULANATE TAB 875 MG TAB PO SCH ×2 (07:43→21:14)
[2017-03-27] MEDS: MAGNESIUM OXIDE 400 MG TAB PO SCH ×2 (07:43→21:13)
[2017-03-27] MEDS: DOCUSATE SODIUM 100 MG CAP PO SCH ×2 (07:43→21:16)
[2017-03-27] MEDS: PANTOprazole SOD 40 MG TAB PO SCH (07:44)
[2017-03-27] MEDS: SERTRALINE HCL 100 MG TAB PO SCH (07:44)
[2017-03-27] MEDS: ASCORBIC ACID 500 MG TAB PO SCH ×2 (07:44→21:14)
[2017-03-27] MEDS: ATORVASTATIN 20 MG TAB PO SCH (07:45)
[2017-03-27] MEDS: CHOLECALCIFEROL 1000 INTER.UNIT TAB PO SCH (07:45)
[2017-03-27] MEDS: ASPIRIN 81 MG ECTAB PO SCH (07:45)
[2017-03-27] MEDS: CIPROFLOXACIN 250 MG TAB PO SCH ×2 (07:45→21:15)
[2017-03-27] MEDS: INSULIN ASPART 100 UNITS/ML 3 ML PEN SC SCH ×4 (07:54→21:19)
[2017-03-27] MEDS: TIOTROPIUM BROMIDE 5 PUFF/90 MCG INH INH SCH (07:55)
--- NOTE | 2017-03-27 08:51 | ECHOCARDIOGRAM REPORT ---
*NOTICE TO RECEIVING LIBERTARIAN AGENCY This information is strictly Confidential and protected under [place] law. [place] law prohibits you from making any further disclosure of this information unless further disclosure is expressly permitted by the written consent of the person to whom it pertains or is authorized by law. A general authorization for the release of medical or other information is not sufficient for this purpose. Hospital accepts no responsibility if the information is made available to any other person, INCLUDING THE PATIENT. Interpretation Summary * Name: MICHAEL CRUZ Study Date: 03/27/2017 07:19 AM BP: 103/52 mmHg * Patient Location: [facility]\S\N278\S\1 HR: 71 * : 1955 (M/d/yyyy) Gender: Female Height: 64 in * Age: 61 yrs Ethnicity: [place] Weight: 242 lb * Ordering Physician: Darshana Ordonez * Referring Physician: Self, Referred * Performed By: Alyse Ramachandran RDCS * * Reason For Study: CHF * BSA: 2.1 m2 * -- Conclusions -- * A follow up study was requested to assess biventricular funciton. Limited views were obtained. * The left ventricular cavity is small. * There is moderate concentric left ventricular hypertrophy. * The LV Ejection Fraction = >70 %. * Flattened septum is consistent with RV pressure/volume overload. * The LV wall motion is otherwise normal. * The right ventricle is severely dilated. * There is moderate tricuspid regurgitation. * Severe pulmonary hypertension is present. * The pulmonary artery systolic pressure is calculated to be 80 mm Hg, assuming a right atrial pressure of 15 mm Hg. * Dilated inferior vena cava with reduced collapsability with sniff indicates an elevated right atrial pressure of 15 mmHg. Procedure Details * A two-dimensional transthoracic echocardiogram was performed. * A two-dimensional transthoracic echocardiogram with pulsed and continuous Doppler was performed. Left Ventricle * The left ventricular cavity is small. * There is moderate concentric left ventricular hypertrophy. * Ejection Fraction = >70 %. * Flattened septum is consistent with RV pressure/volume overload. * The LV wall motion is otherwise normal. Right Ventricle * The right ventricle is severely dilated. Atria * The right atrium is moderately dilated. * The atrial septum is aneurysmal. Mitral Valve * There is no mitral valve stenosis. * Mitral regurgitation was not assessed. Tricuspid Valve * There is moderate tricuspid regurgitation. * Severe pulmonary hypertension is present. The pulmonary artery systolic pressure is calculated to be 80 mm Hg, assuming a right atrial pressure of 15 mm Hg. Aortic Valve * The aortic valve is trileaflet. * Aortic valve sclerosis mild, without significant aortic valvular stenosis. * There is no significant aortic regurgitation. Pericardium/Pleural * There is no pericardial effusion. Great Vessels * Dilated inferior vena cava with reduced collapsability with sniff indicates an elevated right atrial pressure of 15 mmHg Left Ventricular Diastolic Function * Grade I diastolic dysfunction, (abnormal relaxation pattern). MMode 2D Measurements and Calculations IVSd 1.1 cm LVIDd 3.8 cm LVIDs 2.6 cm LVPWd 1.1 cm IVS/LVPW 0.97 FS 30.5 % EDV(Teich) 61.9 ml ESV(Teich) 25.5 ml EF(Teich) 58.8 % EDV(cubed) 54.8 ml ESV(cubed) 18.4 ml EF(cubed) 66.5 % LV mass(C)d 129.1 grams LV mass(C)dI 60.9 grams/m\S\2 SV(Teich) 36.4 ml SI(Teich) 17.1 ml/m\S\2 SV(cubed) 36.4 ml SI(cubed) 17.2 ml/m\S\2 LA dimension 2.7 cm Doppler Measurements and Calculations MV E max anival 82.9 cm/sec MV A max anival 87.9 cm/sec MV E/A 0.94 MV dec time 0.21 sec Ao V2 max 116.2 cm/sec Ao max PG 5.4 mmHg Ao max PG (full) 2.8 mmHg LV V1 max PG 2.6 mmHg LV V1 max 80.0 cm/sec PA V2 max 103.8 cm/sec PA max PG 4.3 mmHg PA acc slope 226.0 cm/sec\S\2 PA acc time 0.21 sec PI end-d anival 162.9 cm/sec TR max anival 408.4 cm/sec PA pr(Accel) -16.86 mmHg
[2017-03-27] MEDS: METOPROLOL SUCC 50MG EXT REL TAB PO SCH (09:00)
[2017-03-27] MEDS: TORSEMIDE 20 MG TAB PO SCH (09:00)
--- NOTE | 2017-03-27 13:51 | Pharmacy Progress Note ---
Glycemic Control Progress Note Date of Service Mar 27, 2017. Scope Glycemic Pharmacist consulted for glycemic control to write orders per [facility] inpatient glycemic control protocol. Objective Accuchecks BSG (last 24hrs): Test 03/26/17 11:00 03/26/17 16:16 03/27/17 06:13 03/27/17 07:44 Random Glucose 147 mg/dl (70-99) 139 mg/dl (70-99) Bedside Glucose 201 mg/dl (70-90) 144 mg/dl (70-90) HbA1c: Test 03/27/17 06:13 Hemoglobin A1c 6.6 % (4.5-5.6) H Recent Pertinent Medications Outpatient Anti-diabetic Regimen: * Lantus 30 units qHS + Novolog 3 units with meals in addition to scale Risk Factors for Insulin Resistance: * Steroids: prednisone 5 mg PO daily (home dose) + Solu-Medrol 125 mg IV x 1 in ED on 03/26/17 * Infection: possible bronchitis; chronic wounds on antibiotics * Diet: type 2 diabetic diet Outpatient Anti-Diabetic Meds Lantus 30 units qHS Novolog 3 units with meals + sliding scale Assessment & Plan ASSESSMENT: * ADA & AACE recommend a goal blood sugar range 140-180 mg/dl for the majority of critically ill & non-critically ill patients. However, more stringent targets may be selected in individual cases. Will utilize more stringent goal of 110-140 mg/dl based on patient age & comorbidities. Additionally, tighter glycemic control is warranted to facilitate wound and infection healing. * Ms Blevins is a 61 y/o F who is well known to the glycemic service. She is admitted today with difficulty breathing. She has chronic and multiple pressure ulcers. She is on antibiotics. While hospitalized, Ms Blevins requires significantly less insulin that as an outpatient. Previous data was utilized to help create the below regimen. * Since the patient received Solu-Medrol 125 mg IV x 1 in the ED and appears to have a pulmonary infection, Lantus 10 units was scheduled for yesterday evening with correctional insulin. The patient received 22 units of insulin with blood sugars ranging from 147-284 mg/dL. Higher blood sugars were expected with the single dose of Solu-Medrol. * Ms Blevins's fasting blood sugar today was 144 mg/dL. Since steroids were not continued, I will continue the same Lantus and correctional insulin as previously ordered. I expect the effects of the steroids to diminish today; however, there may be some lingering effects. Therefore, a tighter correctional insulin will be maintained today; it was cautiously tightened as the patient tends to require small amounts of insulin. These numbers may be loosened tomorrow morning. PLAN FOR INPATIENT GLYCEMIC CONTROL: * Basal insulin with LANTUS 10 units SQ qHS * Correctional Insulin with NOVOLOG per scale ACHS * Goal Range: Low 110 mg/dL - High 140 mg/dL * TIGHTEN Correction Factor to 20 mg/dL/unit * TIGHTEN Nutritional / Prandial insulin per carb ratio to 1 unit per 7 grams CHO consumed * Please note that the plan above was derived based on current level of insulin resistance and hospital stress. These recommendations are appropriate for inpatient admission only. Plan of care upon discharge will need to be reassessed to avoid potential outpatient hypo/hyperglycemia. Thank you.
[2017-03-27] MEDS: ALBUMIN HUMAN 25% 12.5 GM/50 ML VIAL IV SCH ×2 (15:03→16:00)
[2017-03-27] MEDS: BOOST VANILLA PUDDING CUP PO SCH (19:15)
--- NOTE | 2017-03-27 19:30 | Progress Note ---
Medicine Progress Note Date & Time of Visit: Mar 27, 2017 at 19:24. Subjective patient seen resting in bed, comfortable while having HD states her breathing is better, less cough, no sputum denies chest pain no other symptoms Objective Last 8 Hrs Date Time Temp Pulse Resp B/P (MAP) Pulse Ox O2 Delivery O2 Flow Rate FiO2 03/27/17 18:50 87 18 95 Nasal Cannula 3.0 03/27/17 18:35 36.8 86 121/44 (69) 03/27/17 17:45 83 127/54 03/27/17 17:30 82 123/54 03/27/17 17:15 78 80/62 03/27/17 17:00 82 117/60 03/27/17 16:45 82 138/66 03/27/17 16:30 81 123/47 03/27/17 16:30 Nasal Cannula 3.0 03/27/17 16:15 77 119/58 03/27/17 16:00 77 113/55 03/27/17 15:45 76 114/55 03/27/17 15:34 36.4 76 14 108/56 (73) 100 Nasal Cannula 3.0 03/27/17 15:30 81 18 100 Nasal Cannula 3.0 03/27/17 15:30 76 125/60 03/27/17 15:15 76 108/56 03/27/17 15:01 73 117/56 03/27/17 14:54 36.4 73 125/65 (85) 03/27/17 12:00 95 Nasal Cannula 3.0 Physical Exam: General- oriented x 3, not in distress, speaks in sentences with no effort Eyes- EOMI, anicteric ENT- oropharynx clear Neck- supple, no JVD Lungs- mild rales bilateral bases no wheezing Heart- regular rhythm; no murmur, normal rate Abdomen- normal bowel sounds, soft, nontender Extremities- grade 2 lower leg edema with erythema, no calf tenderness; peripheral pulses intact Neuro- alert, oriented x 3;no gross focal deficits Skin- warm & dry Laboratory Results: Last 24 Hours Test 03/26/17 23:00 03/26/17 23:09 03/27/17 06:13 03/27/17 07:44 Creatine Kinase MB Ratio Creatine Kinase MB 0.6 ng/ml Troponin I < 0.015 ng/ml White Blood Count 14.11 K/uL Red Blood Count 4.23 M/uL Hemoglobin 9.5 g/dL Hematocrit 33.0 % Mean Corpuscular Volume 78.0 fL Mean Corpuscular Hemoglobin 22.5 pg Mean Corpuscular Hemoglobin Concent 28.8 g/dl RDW Standard Deviation 60.2 fL RDW Coefficient of Variation 21.1 % Platelet Count 371 K/uL Mean Platelet Volume 8.0 fL Prothrombin Time 39.5 SECONDS Prothromb Time International Ratio 3.5 Sodium Level 131 mmol/L Potassium Level 4.1 mmol/L Chloride Level 97 mmol/L Carbon Dioxide Level 25 mmol/L Anion Gap 9.0 mmol/L Blood Urea Nitrogen 26 mg/dl Creatinine 2.80 mg/dl Est Creatinine Clear Calc Drug Dose 25.2 ml/min Estimated GFR () 20.1 Estimated GFR (Non- 17.4 BUN/Creatinine Ratio 9.4 Random Glucose 139 mg/dl Estimated Average Glucose 143 mg/dl Hemoglobin A1c 6.6 % Calcium Level 9.6 mg/dl Bedside Glucose 144 mg/dl Test 03/27/17 11:23 03/27/17 16:41 Bedside Glucose 174 mg/dl 115 mg/dl Assessment & Plan SHORTNESS OF BREATH, ACUTE ON CHRONIC RESPIRATORY FAILURE VOLUME OVERLOAD IN THE SETTING OF ESRD ON HD AND ACUTE ON CHRONIC RIGHT SIDED CHF COPD - patient presenting with increasing shortness of breath x 1 week with productive cough; was seen by her PCP who prescribed her Levaquin - patient has been taking in addition to her chronic Augmentin and Cipro - CXR showing small right pleural effusion - no clear infiltrate; WBC 17K however likely due to steroids; do not suspect pneumonia - on HD + albumin daily continue home doses of Torsemide and metolazone - for COPD,continue nebs and continue home inhalers -- improving EKG CHANGES - new T-wave inversion anteriorly - no reports of chest pain - troponin negative - echo: -- Conclusions -- * A follow up study was requested to assess biventricular funciton. Limited views were obtained. * The left ventricular cavity is small. * There is moderate concentric left ventricular hypertrophy. * The LV Ejection Fraction = >70 %. * Flattened septum is consistent with RV pressure/volume overload. * The LV wall motion is otherwise normal. * The right ventricle is severely dilated. * There is moderate tricuspid regurgitation. * Severe pulmonary hypertension is present. * The pulmonary artery systolic pressure is calculated to be 80 mm Hg, assuming a right atrial pressure of 15 mm Hg. * Dilated inferior vena cava with reduced collapsability with sniff indicates an elevated right atrial pressure of 15 mmHg. PAROXYSMAL AFIB - currently in NSR - rate controlled on beta reyes, will continue - on Coumadin, INR 3.5 hold coumadin DM - hgb ac 8.1 12/2016 - continue basal / SSI - glycemic management consult CHRONIC BL HIP WOUNDS - wound care consult - continue antibiotics HYPOTHYROIDISM - continue Levothyroxine DVT PROPHYLAXIS - on Coumadin, INR > 2.0 CODE STATUS - Patient is a full code as per my discussion with her. DISPO -pending Current Inpatient Medications: Current Inpatient Medications Medications (Trade) Dose Ordered Sig/Tyrone Route Start Time Stop Time Status Last Admin Dose Admin Acetaminophen (Tylenol Tab) 650 mg Q4H PRN PO 03/26/17 14:00 04/25/17 13:59 Ondansetron HCl (Zofran Inj) 4 mg Q6H PRN IV 03/26/17 14:00 04/25/17 13:59 Nitroglycerin (Nitrostat Tab) 0.4 mg UD PRN SL 03/26/17 14:00 04/25/17 13:59 Albuterol/ Ipratropium (Duoneb) 3 ml QIDR INH 03/26/17 16:00 04/25/17 15:59 03/27/17 18:50 3 ML Insulin Glargine (Lantus Solostar Pen) 10 units HS SC 03/26/17 21:00 04/25/17 20:59 03/26/17 20:56 10 UNITS Insulin Aspart (novoLOG ASPART) SLIDING SCALE If C... ACHS SC 03/26/17 16:00 04/25/17 15:59 03/27/17 12:38 5 UNITS Glucose (Glucose 40% Gel) 15-30 GRAMS 15 GRAMS... UD PRN PO 03/26/17 14:15 04/25/17 14:14 Glucose (Glucose Chew Tab) 4-8 Tablets 4 Tabl... UD PRN PO 03/26/17 14:15 04/25/17 14:14 Dextrose (Dextrose 50% 50ML Syringe) 25-50ML OF 50% DW IV FOR... UD PRN IV 03/26/17 14:15 04/25/17 14:14 Glucagon (Glucagon Inj) 1 mg UD PRN SQ 03/26/17 14:15 04/25/17 14:14 Miscellaneous Information (Consult Glycemic Management Pharmacy) 1 ea UD PRN N/A 03/26/17 14:04 04/25/17 14:03 Amoxicillin/ Clavulanate Potassium (Augmentin Tab) 875 mg BID PO 03/26/17 21:00 04/05/17 20:59 03/27/17 07:43 875 MG Ascorbic Acid (Vitamin C Tab) 500 mg BID PO 03/26/17 21:00 04/25/17 20:59 03/27/17 07:44 500 MG Aspirin (Ecotrin Tab) 81 mg DAILY PO 03/27/17 09:00 04/26/17 08:59 03/27/17 07:45 81 MG Atorvastatin Calcium (Lipitor Tab) 40 mg DAILY PO 03/27/17 09:00 04/26/17 08:59 03/27/17 07:45 40 MG Calcitriol (Rocaltrol Cap) 0.25 mcg MoWeFr@0900 PO 03/28/17 09:00 04/27/17 08:59 Cyanocobalamin (Vitamin B-12 Tab) 1,000 mcg DAILY PO 03/27/17 09:00 04/26/17 08:59 03/27/17 07:43 1,000 MCG Docusate Sodium (coLACE CAP) 100 mg BID PO 03/26/17 21:00 04/25/17 20:59 03/27/17 07:43 100 MG Gabapentin (Neurontin Cap) 400 mg BID PO 03/26/17 21:00 04/25/17 20:59 03/27/17 07:43 400 MG Levothyroxine Sodium (Synthroid Tab) 125 mcg DAILYBB PO 03/27/17 06:30 04/26/17 06:29 03/27/17 05:57 125 MCG Magnesium Oxide (Mag-Ox Tab) 400 mg BID PO 03/26/17 21:00 04/25/17 20:59 03/27/17 07:43 400 MG Metoprolol Succinate (Toprol Xl Tab) 25 mg DAILY PO 03/27/17 09:00 04/26/17 08:59 Miconazole Nitrate (Desenex Powder) 1 appln MoWeFr@0900 EXT 03/28/17 09:00 04/27/17 08:59 Prednisone (PredniSONE TAB) 5 mg DAILY PO 03/27/17 09:00 04/26/17 08:59 03/27/17 07:44 5 MG Sertraline HCl (Zoloft Tab) 100 mg DAILY PO 03/27/17 09:00 04/26/17 08:59 03/27/17 07:44 100 MG Tiotropium [place] (Spiriva Handihaler Inhaler) 30 puff DAILY INH 03/27/17 09:00 04/26/17 08:59 03/27/17 07:55 1 PUFF Torsemide (Demadex Tab) 100 mg DAILY PO 03/27/17 09:00 04/26/17 08:59 Miscellaneous Information (Order Awaiting Action) 1 ea QS N/A 03/26/17 16:00 04/25/17 15:59 Cholecalciferol (Vitamin D Tab) 2,000 inter.unit DAILY PO 03/27/17 09:00 04/26/17 08:59 03/27/17 07:45 2,000 INTER.UNIT Pantoprazole Sodium (Protonix Tab) 40 mg DAILY PO 03/27/17 09:00 04/26/17 08:59 03/27/17 07:44 40 MG Acetaminophen/ Hydrocodone Bitart ([place] 5/325 Tab) 1 tab Q6H PRN PO 03/26/17 14:15 04/09/17 14:14 03/27/17 18:52 1 TAB Metolazone (Zaroxolyn Tab) 2.5 mg Q7D@0830 PO 04/05/17 08:30 04/28/17 08:59 Ciprofloxacin (Ciprofloxacin Tab) 750 mg BID PO 03/26/17 21:00 04/05/17 20:59 03/27/17 07:45 750 MG Collagenase (Santyl Oint) 1 appln DAILY EXT 03/28/17 09:00 04/27/17 08:59 Enteral Nutritional Formula (Boost Pudding) 1 cup BIDM PO 03/27/17 17:00 04/26/17 16:59 03/27/17 19:15 1 CUP
[2017-03-27] MEDS: INSULIN GLARGINE SOLOSTAR 100 UNITS/ML 3 ML PEN SC SCH (21:20)
[2017-03-28] VITALS (26 sets, daily range): BP systolic 91–123; BP diastolic 47–81; PULSE 78–99; TEMP 36.4–36.9; O2SAT 91–97
[2017-03-28] MEDS: LEVOTHYROXINE 125 MCG TAB PO SCH (06:16)
[2017-03-28] MEDS: HYDROCODONE/ACETAMOPHEN 5/325MG TAB PO PRN ×3 (06:23→23:13)
[2017-03-28 06:45] LABS: INR 2.8 (0.9-1.1); PROTHROMBIN TIME (PATIENT) 30.8 SECONDS (9.0-12.0)
[2017-03-28] MEDS ORDERED: EPOETIN ALFA 10,000 UNITS/ML VIAL IV. SCH (07:00)
[2017-03-28 07:04] LABS: BUN/CREATININE RATIO 8.9 (10-20); CALCIUM 9.2 mg/dl (8.5-10.1); CREATININE 2.7 mg/dl (0.60-1.20); POTASSIUM 4.2 mmol/L (3.5-5.1)
[2017-03-28] MEDS: TORSEMIDE 20 MG TAB PO SCH (07:05)
[2017-03-28] MEDS: METOPROLOL SUCC 50MG EXT REL TAB PO SCH (07:06)
[2017-03-28 07:07] LABS: PHOSPHORUS 2.8 mg/dl (2.5-4.9)
[2017-03-28] MEDS: ALBUT/IPRATROP 3MG/0.5MG NEB 3 ML VIAL INH SCH ×4 (07:10→19:26)
[2017-03-28] MEDS: COLLAGENASE OINT 30 GM TUBE EXT SCH (07:35)
[2017-03-28] MEDS: BOOST VANILLA PUDDING CUP PO SCH ×2 (07:35→17:46)
[2017-03-28] MEDS: TIOTROPIUM BROMIDE 5 PUFF/90 MCG INH INH SCH (07:36)
[2017-03-28] MEDS: GABAPENTIN 400 MG CAP PO SCH ×2 (07:37→21:29)
[2017-03-28] MEDS: PANTOprazole SOD 40 MG TAB PO SCH (07:37)
[2017-03-28] MEDS: SERTRALINE HCL 100 MG TAB PO SCH (07:37)
[2017-03-28] MEDS: AMOXICILLIN/CLAVULANATE TAB 875 MG TAB PO SCH ×2 (07:37→21:29)
[2017-03-28] MEDS: ASPIRIN 81 MG ECTAB PO SCH (07:37)
[2017-03-28] MEDS: ATORVASTATIN 20 MG TAB PO SCH (07:38)
[2017-03-28] MEDS: DOCUSATE SODIUM 100 MG CAP PO SCH ×2 (07:38→21:28)
[2017-03-28] MEDS: CYANOCOBALAMIN 500 MCG TAB (VIT B-12) PO SCH (07:38)
[2017-03-28] MEDS: CHOLECALCIFEROL 1000 INTER.UNIT TAB PO SCH (07:39)
[2017-03-28] MEDS: MAGNESIUM OXIDE 400 MG TAB PO SCH ×2 (07:39→21:29)
[2017-03-28] MEDS: ASCORBIC ACID 500 MG TAB PO SCH ×2 (07:39→21:28)
[2017-03-28] MEDS: CIPROFLOXACIN 250 MG TAB PO SCH ×2 (07:39→21:28)
[2017-03-28] MEDS: INSULIN ASPART 100 UNITS/ML 3 ML PEN SC SCH ×4 (07:47→21:30)
[2017-03-28 08:24] LABS: HEPATITIS B AB NEG
[2017-03-28] MEDS ORDERED: CALCITRIOL 0.25 MCG CAP PO SCH (09:00)
[2017-03-28] MEDS ORDERED: MICONAZOLE NITRATE POWDER 43 GM EXT SCH (09:00)
--- NOTE | 2017-03-28 13:40 | Nephrology Progress Note ---
Nephrology Progress Note Date of Service: Mar 28, 2017. Subjective 61 yo female with significant right sided heart failure who has chf with significant pannus and difficulty breathing. getting daily dialysis and breathing better. for dialysis this afternoon. pt did notice some wheezing but oxygenating well on 3 liters nasal cannula Objective Date Time Temp Pulse Resp B/P (MAP) Pulse Ox O2 Delivery O2 Flow Rate FiO2 03/28/17 12:00 Nasal Cannula 3.0 03/28/17 11:26 82 18 96 Nasal Cannula 3.0 03/28/17 08:21 36.4 78 20 121/81 (94) 97 Nasal Cannula 3.0 03/28/17 08:00 Nasal Cannula 3.0 03/28/17 07:10 80 18 97 Nasal Cannula 3.0 03/28/17 04:01 36.8 88 18 110/71 (84) 91 Nasal Cannula 3.0 03/28/17 04:00 Nasal Cannula 3.0 03/28/17 00:00 Nasal Cannula 3.0 03/27/17 23:30 36.6 87 20 120/75 (90) 98 Nasal Cannula 3.0 03/27/17 20:30 Nasal Cannula 3.0 03/27/17 19:24 36.9 92 20 117/70 (86) 94 Nasal Cannula 3.0 03/27/17 18:50 87 18 95 Nasal Cannula 3.0 03/27/17 18:35 36.8 86 121/44 (69) 03/27/17 17:45 83 127/54 03/27/17 17:30 82 123/54 03/27/17 17:15 78 80/62 03/27/17 17:00 82 117/60 03/27/17 16:45 82 138/66 03/27/17 16:30 81 123/47 03/27/17 16:30 Nasal Cannula 3.0 03/27/17 16:15 77 119/58 03/27/17 16:00 77 113/55 03/27/17 15:45 76 114/55 03/27/17 15:34 36.4 76 14 108/56 (73) 100 Nasal Cannula 3.0 03/27/17 15:30 81 18 100 Nasal Cannula 3.0 03/27/17 15:30 76 125/60 03/27/17 15:15 76 108/56 03/27/17 15:01 73 117/56 03/27/17 14:54 36.4 73 125/65 (85) Physical Exam: General-aaox3, obese Eyes-no scleral icterus ENT-mmm Neck-supple Lungs-decreased at bases Heart-distant heart sounds Abdomen-+pannus Extremities-+1 hard edema Neuro-nonfocal Current Inpatient Medications Medications (Trade) Dose Ordered Sig/Tyrone Route Start Time Stop Time Status Last Admin Dose Admin Acetaminophen (Tylenol Tab) 650 mg Q4H PRN PO 03/26/17 14:00 04/25/17 13:59 Ondansetron HCl (Zofran Inj) 4 mg Q6H PRN IV 03/26/17 14:00 04/25/17 13:59 Nitroglycerin (Nitrostat Tab) 0.4 mg UD PRN SL 03/26/17 14:00 04/25/17 13:59 Albuterol/ Ipratropium (Duoneb) 3 ml QIDR INH 03/26/17 16:00 04/25/17 15:59 03/28/17 11:26 3 ML Insulin Glargine (Lantus Solostar Pen) 10 units HS SC 03/26/17 21:00 04/25/17 20:59 03/27/17 21:20 10 UNITS Insulin Aspart (novoLOG ASPART) SLIDING SCALE If C... ACHS SC 03/26/17 16:00 04/25/17 15:59 03/28/17 12:02 9 UNITS Glucose (Glucose 40% Gel) 15-30 GRAMS 15 GRAMS... UD PRN PO 03/26/17 14:15 04/25/17 14:14 Glucose (Glucose Chew Tab) 4-8 Tablets 4 Tabl... UD PRN PO 03/26/17 14:15 04/25/17 14:14 Dextrose (Dextrose 50% 50ML Syringe) 25-50ML OF 50% DW IV FOR... UD PRN IV 03/26/17 14:15 04/25/17 14:14 Glucagon (Glucagon Inj) 1 mg UD PRN SQ 03/26/17 14:15 04/25/17 14:14 Miscellaneous Information (Consult Glycemic Management Pharmacy) 1 ea UD PRN N/A 03/26/17 14:04 04/25/17 14:03 Amoxicillin/ Clavulanate Potassium (Augmentin Tab) 875 mg BID PO 03/26/17 21:00 04/05/17 20:59 03/28/17 07:37 875 MG Ascorbic Acid (Vitamin C Tab) 500 mg BID PO 03/26/17 21:00 04/25/17 20:59 03/28/17 07:39 500 MG Aspirin (Ecotrin Tab) 81 mg DAILY PO 03/27/17 09:00 04/26/17 08:59 03/28/17 07:37 81 MG Atorvastatin Calcium (Lipitor Tab) 40 mg DAILY PO 03/27/17 09:00 04/26/17 08:59 03/28/17 07:38 40 MG Calcitriol (Rocaltrol Cap) 0.25 mcg MoWeFr@0900 PO 03/28/17 09:00 04/27/17 08:59 03/28/17 07:38 0.25 MCG Cyanocobalamin (Vitamin B-12 Tab) 1,000 mcg DAILY PO 03/27/17 09:00 04/26/17 08:59 03/28/17 07:38 1,000 MCG Docusate Sodium (coLACE CAP) 100 mg BID PO 03/26/17 21:00 04/25/17 20:59 03/28/17 07:38 100 MG Gabapentin (Neurontin Cap) 400 mg BID PO 03/26/17 21:00 04/25/17 20:59 03/28/17 07:37 400 MG Levothyroxine Sodium (Synthroid Tab) 125 mcg DAILYBB PO 03/27/17 06:30 04/26/17 06:29 03/28/17 06:16 125 MCG Magnesium Oxide (Mag-Ox Tab) 400 mg BID PO 03/26/17 21:00 04/25/17 20:59 03/28/17 07:39 400 MG Metoprolol Succinate (Toprol Xl Tab) 25 mg DAILY PO 03/27/17 09:00 04/26/17 08:59 Miconazole Nitrate (Desenex Powder) 1 appln MoWeFr@0900 EXT 03/28/17 09:00 04/27/17 08:59 03/28/17 07:35 1 APPLN Prednisone (PredniSONE TAB) 5 mg DAILY PO 03/27/17 09:00 04/26/17 08:59 03/28/17 07:37 5 MG Sertraline HCl (Zoloft Tab) 100 mg DAILY PO 03/27/17 09:00 04/26/17 08:59 03/28/17 07:37 100 MG Tiotropium [place] (Spiriva Handihaler Inhaler) 30 puff DAILY INH 03/27/17 09:00 04/26/17 08:59 03/28/17 07:36 1 PUFF Torsemide (Demadex Tab) 100 mg DAILY PO 03/27/17 09:00 04/26/17 08:59 Miscellaneous Information (Order Awaiting Action) 1 ea QS N/A 03/26/17 16:00 04/25/17 15:59 Cholecalciferol (Vitamin D Tab) 2,000 inter.unit DAILY PO 03/27/17 09:00 04/26/17 08:59 03/28/17 07:39 2,000 INTER.UNIT Pantoprazole Sodium (Protonix Tab) 40 mg DAILY PO 03/27/17 09:00 04/26/17 08:59 03/28/17 07:37 40 MG Acetaminophen/ Hydrocodone Bitart ([place] 5/325 Tab) 1 tab Q6H PRN PO 03/26/17 14:15 04/09/17 14:14 03/28/17 06:23 1 TAB Metolazone (Zaroxolyn Tab) 2.5 mg Q7D@0830 PO 04/05/17 08:30 04/28/17 08:59 Ciprofloxacin (Ciprofloxacin Tab) 750 mg BID PO 03/26/17 21:00 04/05/17 20:59 03/28/17 07:39 750 MG Collagenase (Santyl Oint) 1 appln DAILY EXT 03/28/17 09:00 04/27/17 08:59 Enteral Nutritional Formula (Boost Pudding) 1 cup BIDM PO 03/27/17 17:00 04/26/17 16:59 03/28/17 07:35 1 CUP Epoetin Faisal (Procrit Inj) 10,000 units 0700 IV. 03/28/17 07:00 03/28/17 16:00 Albumin Human (Albumin 25%) 12.5 gm 0800,0801 IV 03/28/17 08:00 03/28/17 14:00 Last 24 Hours Test 03/27/17 16:41 03/27/17 20:06 03/28/17 06:10 03/28/17 07:35 Bedside Glucose 115 mg/dl 156 mg/dl 104 mg/dl Prothrombin Time 30.8 SECONDS Prothromb Time International Ratio 2.8 Sodium Level 134 mmol/L Potassium Level 4.2 mmol/L Chloride Level 98 mmol/L Carbon Dioxide Level 29 mmol/L Anion Gap 7.0 mmol/L Blood Urea Nitrogen 24 mg/dl Creatinine 2.70 mg/dl Est Creatinine Clear Calc Drug Dose 26.0 ml/min Estimated GFR () 21.0 Estimated GFR (Non- 18.2 BUN/Creatinine Ratio 8.9 Random Glucose 97 mg/dl Calcium Level 9.2 mg/dl Phosphorus Level 2.8 mg/dl Iron Level 27 mcg/dl Transferrin 118 mg/dl Transferrin % Saturation 16 % Hepatitis B Surface Antigen NEG Hepatitis B Surface Antibody NEG Test 03/28/17 11:47 Bedside Glucose 170 mg/dl Other Studies: echo: There is moderate concentric left ventricular hypertrophy. * The LV Ejection Fraction = >70 %. * Flattened septum is consistent with RV pressure/volume overload. * The LV wall motion is otherwise normal. * The right ventricle is severely dilated. * There is moderate tricuspid regurgitation. * Severe pulmonary hypertension is present. * The pulmonary artery systolic pressure is calculated to be 80 mm Hg, assuming a right atrial pressure of 15 mm Hg. * Dilated inferior vena cava with reduced collapsability with sniff indicates an elevated right atrial pressure of 15 mmHg. Assessment & Plan ESRD-compliant with dialysis and have diuresed a significant amount of fluid as outpt since starting on dialysis. however with recent infection/chf episode with worsening hypoxia-brought in for further care. tolerating dialysis daily and breathing has improved. using albumin to help maximize fluid removal. dialyzing on a 3k bath with albumin with goal uf of 2 liters. tolerated dialysis well yesterday. Anemia of Renal Failure-hg levels are stable and will continue procrit with goal hg of 10 to 11, on venofer as outpt as well. tsat of 16%. ok from renal perspective to go home tomorrow morning if medically acceptable per primary hospitalist.
[2017-03-28] MEDS: ALBUMIN HUMAN 25% 12.5 GM/50 ML VIAL IV SCH ×2 (14:12→15:05)
--- NOTE | 2017-03-28 16:39 | Progress Note ---
Medicine Progress Note Date & Time of Visit: Mar 28, 2017 at 16:35. Subjective patient seen sitting up in bed, comfortable states her breathing is ok today has occasional dry cough denies chest pain, dyspnea, palpitations, dizziness, nausea/vomiting no other symptoms Objective Last 8 Hrs Date Time Temp Pulse Resp B/P (MAP) Pulse Ox O2 Delivery O2 Flow Rate FiO2 03/28/17 15:45 85 122/67 03/28/17 15:39 36.4 81 20 110/63 (79) 92 Nasal Cannula 3.0 03/28/17 15:30 81 95/62 03/28/17 15:15 82 103/54 03/28/17 15:00 81 110/63 03/28/17 14:45 80 116/64 03/28/17 14:30 82 102/62 03/28/17 14:15 85 104/50 03/28/17 14:05 79 98/47 03/28/17 13:50 36.4 85 91/50 (64) 03/28/17 12:00 Nasal Cannula 3.0 03/28/17 11:26 82 18 96 Nasal Cannula 3.0 03/28/17 11:00 36.4 93 20 115/63 (80) 91 Room Air Physical Exam: General- oriented x 3, not in distress, speaks in sentences with no effort Eyes- anicteric Neck- no JVD Lungs- mild rales bilateral bases; no wheezing Heart- regular rhythm; no murmur, normal rate Abdomen- normal bowel sounds, soft, nontender Extremities- grade 2 lower leg edema with erythema, no calf tenderness; peripheral pulses intact (+) chronic wounds on bilateral hip and left abdominal fold- no signs of active infection Neuro- alert, oriented x 3;no gross focal deficits Skin- warm & dry Laboratory Results: Last 24 Hours Test 03/27/17 16:41 03/27/17 20:06 03/28/17 06:10 03/28/17 07:35 Bedside Glucose 115 mg/dl 156 mg/dl 104 mg/dl Prothrombin Time 30.8 SECONDS Prothromb Time International Ratio 2.8 Sodium Level 134 mmol/L Potassium Level 4.2 mmol/L Chloride Level 98 mmol/L Carbon Dioxide Level 29 mmol/L Anion Gap 7.0 mmol/L Blood Urea Nitrogen 24 mg/dl Creatinine 2.70 mg/dl Est Creatinine Clear Calc Drug Dose 26.0 ml/min Estimated GFR () 21.0 Estimated GFR (Non- 18.2 BUN/Creatinine Ratio 8.9 Random Glucose 97 mg/dl Calcium Level 9.2 mg/dl Phosphorus Level 2.8 mg/dl Iron Level 27 mcg/dl Transferrin 118 mg/dl Transferrin % Saturation 16 % Hepatitis B Surface Antigen NEG Hepatitis B Surface Antibody NEG Test 03/28/17 11:47 Bedside Glucose 170 mg/dl Assessment & Plan SHORTNESS OF BREATH, ACUTE ON CHRONIC RESPIRATORY FAILURE VOLUME OVERLOAD IN THE SETTING OF ESRD ON HD AND ACUTE ON CHRONIC RIGHT SIDED CHF COPD - patient presenting with increasing shortness of breath x 1 week with productive cough; was seen by her PCP who prescribed her Levaquin - patient has been taking in addition to her chronic Augmentin and Cipro - CXR showing small right pleural effusion - no clear infiltrate; WBC 17K however likely due to steroids; do not suspect pneumonia - on HD + albumin daily continue home doses of Torsemide and metolazone - for COPD,continue nebs and continue home inhalers -- continues to improve EKG CHANGES - new T-wave inversion anteriorly - no reports of chest pain - troponin negative - echo: -- Conclusions -- * A follow up study was requested to assess biventricular funciton. Limited views were obtained. * The left ventricular cavity is small. * There is moderate concentric left ventricular hypertrophy. * The LV Ejection Fraction = >70 %. * Flattened septum is consistent with RV pressure/volume overload. * The LV wall motion is otherwise normal. * The right ventricle is severely dilated. * There is moderate tricuspid regurgitation. * Severe pulmonary hypertension is present. * The pulmonary artery systolic pressure is calculated to be 80 mm Hg, assuming a right atrial pressure of 15 mm Hg. * Dilated inferior vena cava with reduced collapsability with sniff indicates an elevated right atrial pressure of 15 mmHg. PAROXYSMAL AFIB - currently in NSR - rate controlled on beta reyes - on Coumadin, INR 2.8 may resume coumadin tomorrow DM - hgb ac 8.1 12/2016 - continue basal / SSI - glycemic management consult CHRONIC BL HIP WOUNDS - wound care consult plan for wound vac placement - continue antibiotics- augmentin and cipro HYPOTHYROIDISM - continue Levothyroxine DVT PROPHYLAXIS - on Coumadin, INR > 2.0 CODE STATUS - Patient is a full code DISPO -pending Current Inpatient Medications: Current Inpatient Medications Medications (Trade) Dose Ordered Sig/Tyrone Route Start Time Stop Time Status Last Admin Dose Admin Acetaminophen (Tylenol Tab) 650 mg Q4H PRN PO 03/26/17 14:00 04/25/17 13:59 Ondansetron HCl (Zofran Inj) 4 mg Q6H PRN IV 03/26/17 14:00 04/25/17 13:59 Nitroglycerin (Nitrostat Tab) 0.4 mg UD PRN SL 03/26/17 14:00 04/25/17 13:59 Albuterol/ Ipratropium (Duoneb) 3 ml QIDR INH 03/26/17 16:00 04/25/17 15:59 03/28/17 11:26 3 ML Insulin Glargine (Lantus Solostar Pen) 10 units HS SC 03/26/17 21:00 04/25/17 20:59 03/27/17 21:20 10 UNITS Insulin Aspart (novoLOG ASPART) SLIDING SCALE If C... ACHS SC 03/26/17 16:00 04/25/17 15:59 03/28/17 12:02 9 UNITS Glucose (Glucose 40% Gel) 15-30 GRAMS 15 GRAMS... UD PRN PO 03/26/17 14:15 04/25/17 14:14 Glucose (Glucose Chew Tab) 4-8 Tablets 4 Tabl... UD PRN PO 03/26/17 14:15 04/25/17 14:14 Dextrose (Dextrose 50% 50ML Syringe) 25-50ML OF 50% DW IV FOR... UD PRN IV 03/26/17 14:15 04/25/17 14:14 Glucagon (Glucagon Inj) 1 mg UD PRN SQ 03/26/17 14:15 04/25/17 14:14 Miscellaneous Information (Consult Glycemic Management Pharmacy) 1 ea UD PRN N/A 03/26/17 14:04 04/25/17 14:03 Amoxicillin/ Clavulanate Potassium (Augmentin Tab) 875 mg BID PO 03/26/17 21:00 04/05/17 20:59 03/28/17 07:37 875 MG Ascorbic Acid (Vitamin C Tab) 500 mg BID PO 03/26/17 21:00 04/25/17 20:59 7/14/17 07:39 500 MG Aspirin (Ecotrin Tab) 81 mg DAILY PO 03/27/17 09:00 04/26/17 08:59 03/28/17 07:37 81 MG Atorvastatin Calcium (Lipitor Tab) 40 mg DAILY PO 03/27/17 09:00 04/26/17 08:59 03/28/17 07:38 40 MG Calcitriol (Rocaltrol Cap) 0.25 mcg MoWeFr@0900 PO 03/28/17 09:00 04/27/17 08:59 03/28/17 07:38 0.25 MCG Cyanocobalamin (Vitamin B-12 Tab) 1,000 mcg DAILY PO 03/27/17 09:00 04/26/17 08:59 03/28/17 07:38 1,000 MCG Docusate Sodium (coLACE CAP) 100 mg BID PO 03/26/17 21:00 04/25/17 20:59 03/28/17 07:38 100 MG Gabapentin (Neurontin Cap) 400 mg BID PO 03/26/17 21:00 04/25/17 20:59 03/28/17 07:37 400 MG Levothyroxine Sodium (Synthroid Tab) 125 mcg DAILYBB PO 03/27/17 06:30 04/26/17 06:29 03/28/17 06:16 125 MCG Magnesium Oxide (Mag-Ox Tab) 400 mg BID PO 03/26/17 21:00 04/25/17 20:59 03/28/17 07:39 400 MG Metoprolol Succinate (Toprol Xl Tab) 25 mg DAILY PO 03/27/17 09:00 04/26/17 08:59 Miconazole Nitrate (Desenex Powder) 1 appln MoWeFr@0900 EXT 03/28/17 09:00 04/27/17 08:59 03/28/17 07:35 1 APPLN Prednisone (PredniSONE TAB) 5 mg DAILY PO 03/27/17 09:00 04/26/17 08:59 03/28/17 07:37 5 MG Sertraline HCl (Zoloft Tab) 100 mg DAILY PO 03/27/17 09:00 04/26/17 08:59 03/28/17 07:37 100 MG Tiotropium [place] (Spiriva Handihaler Inhaler) 30 puff DAILY INH 03/27/17 09:00 04/26/17 08:59 03/28/17 07:36 1 PUFF Torsemide (Demadex Tab) 100 mg DAILY PO 03/27/17 09:00 04/26/17 08:59 Miscellaneous Information (Order Awaiting Action) 1 ea QS N/A 03/26/17 16:00 04/25/17 15:59 Cholecalciferol (Vitamin D Tab) 2,000 inter.unit DAILY PO 03/27/17 09:00 04/26/17 08:59 03/28/17 07:39 2,000 INTER.UNIT Pantoprazole Sodium (Protonix Tab) 40 mg DAILY PO 03/27/17 09:00 04/26/17 08:59 03/28/17 07:37 40 MG Acetaminophen/ Hydrocodone Bitart ([place] 5/325 Tab) 1 tab Q6H PRN PO 03/26/17 14:15 04/09/17 14:14 03/28/17 06:23 1 TAB Metolazone (Zaroxolyn Tab) 2.5 mg Q7D@0830 PO 04/05/17 08:30 04/28/17 08:59 Ciprofloxacin (Ciprofloxacin Tab) 750 mg BID PO 03/26/17 21:00 04/05/17 20:59 03/28/17 07:39 750 MG Collagenase (Santyl Oint) 1 appln DAILY EXT 03/28/17 09:00 04/27/17 08:59 Enteral Nutritional Formula (Boost Pudding) 1 cup BIDM PO 03/27/17 17:00 04/26/17 16:59 03/28/17 07:35 1 CUP
[2017-03-28] MEDS: INSULIN GLARGINE SOLOSTAR 100 UNITS/ML 3 ML PEN SC SCH (21:30)
[2017-03-29] VITALS (7 sets, daily range): BP systolic 99–114; BP diastolic 51–71; PULSE 74–88; TEMP 36.4–36.8; O2SAT 91–96
[2017-03-29] MEDS: LEVOTHYROXINE 125 MCG TAB PO SCH (05:46)
[2017-03-29] MEDS: HYDROCODONE/ACETAMOPHEN 5/325MG TAB PO PRN ×2 (05:47→12:39)
[2017-03-29 06:43] LABS: INR 1.8 (0.9-1.1)
[2017-03-29 07:06] LABS: BUN/CREATININE RATIO 9.1 (10-20); CALCIUM 9.1 mg/dl (8.5-10.1); CREATININE 2.5 mg/dl (0.60-1.20); POTASSIUM 4.1 mmol/L (3.5-5.1)
[2017-03-29] MEDS: ALBUT/IPRATROP 3MG/0.5MG NEB 3 ML VIAL INH SCH ×3 (07:36→15:37)
[2017-03-29] MEDS: BOOST VANILLA PUDDING CUP PO SCH ×2 (07:59→17:34)
[2017-03-29] MEDS: TORSEMIDE 20 MG TAB PO SCH (08:00)
[2017-03-29] MEDS: METOPROLOL SUCC 50MG EXT REL TAB PO SCH (08:00)
[2017-03-29] MEDS: GABAPENTIN 400 MG CAP PO SCH (08:01)
[2017-03-29] MEDS: COLLAGENASE OINT 30 GM TUBE EXT SCH (08:01)
[2017-03-29] MEDS: AMOXICILLIN/CLAVULANATE TAB 875 MG TAB PO SCH (08:01)
[2017-03-29] MEDS: ASCORBIC ACID 500 MG TAB PO SCH (08:01)
[2017-03-29] MEDS: CIPROFLOXACIN 250 MG TAB PO SCH (08:02)
[2017-03-29] MEDS: MAGNESIUM OXIDE 400 MG TAB PO SCH (08:02)
[2017-03-29] MEDS: DOCUSATE SODIUM 100 MG CAP PO SCH (08:03)
[2017-03-29] MEDS: ASPIRIN 81 MG ECTAB PO SCH (08:03)
[2017-03-29] MEDS: CYANOCOBALAMIN 500 MCG TAB (VIT B-12) PO SCH (08:03)
[2017-03-29] MEDS: CHOLECALCIFEROL 1000 INTER.UNIT TAB PO SCH (08:03)
[2017-03-29] MEDS: PANTOprazole SOD 40 MG TAB PO SCH (08:04)
[2017-03-29] MEDS: SERTRALINE HCL 100 MG TAB PO SCH (08:04)
[2017-03-29] MEDS: ATORVASTATIN 20 MG TAB PO SCH (08:05)
[2017-03-29] MEDS: TIOTROPIUM BROMIDE 5 PUFF/90 MCG INH INH SCH (08:05)
[2017-03-29] MEDS: INSULIN ASPART 100 UNITS/ML 3 ML PEN SC SCH ×3 (08:46→17:44)
[2017-03-29] MEDS ORDERED: METOLAZONE 2.5 MG TAB PO SCH (09:00)
[2017-03-29] MEDS ORDERED: WARFARIN SOD 5 MG TAB PO ONE (17:06)
--- NOTE | 2017-03-29 17:44 | Progress Note ---
Medicine Progress Note Date & Time of Visit: Mar 29, 2017 at 17:39. Subjective patient seen resting in bedside chair, comfortable overall states her breathing is much better, back to baseline denies active dyspnea, cough has improved denies fever/chills, pain no other symptoms in good spirits states she is ready and would like to be discharged today Objective Last 8 Hrs Date Time Temp Pulse Resp B/P (MAP) Pulse Ox O2 Delivery O2 Flow Rate FiO2 03/29/17 16:00 Nasal Cannula 3.0 03/29/17 15:37 74 16 93 Nasal Cannula 3.0 03/29/17 14:35 36.6 74 18 99/55 (70) 96 Nasal Cannula 3.0 03/29/17 12:00 Nasal Cannula 3.0 03/29/17 10:56 85 16 96 Nasal Cannula 3.0 03/29/17 10:56 36.4 77 20 114/66 (82) 93 Nasal Cannula 3.0 Physical Exam: General- oriented x 3, not in distress, speaks in sentences with no effort Eyes- anicteric Neck- no JVD Lungs- clear breath sounds bilaterally, no rales/wheezes Heart- regular rhythm; no murmur, normal rate Abdomen- normal bowel sounds, soft, nontender Extremities- grade 2 lower leg edema with erythema, no calf tenderness; peripheral pulses intact (+) chronic wounds on bilateral hip and left abdominal fold- no signs of active infection Neuro- alert, oriented x 3;no gross focal deficits Skin- warm & dry Laboratory Results: Last 24 Hours Test 03/28/17 20:27 03/29/17 06:10 03/29/17 07:35 03/29/17 11:23 Bedside Glucose 126 mg/dl 122 mg/dl 117 mg/dl Prothrombin Time 20.0 SECONDS Prothromb Time International Ratio 1.8 Sodium Level 138 mmol/L Potassium Level 4.1 mmol/L Chloride Level 102 mmol/L Carbon Dioxide Level 27 mmol/L Anion Gap 9.0 mmol/L Blood Urea Nitrogen 23 mg/dl Creatinine 2.50 mg/dl Est Creatinine Clear Calc Drug Dose 28.0 ml/min Estimated GFR () 23.1 Estimated GFR (Non- 19.9 BUN/Creatinine Ratio 9.1 Random Glucose 123 mg/dl Calcium Level 9.1 mg/dl Test 03/29/17 16:41 Bedside Glucose 137 mg/dl Assessment & Plan SHORTNESS OF BREATH, ACUTE ON CHRONIC RESPIRATORY FAILURE VOLUME OVERLOAD IN THE SETTING OF ESRD ON HD AND ACUTE ON CHRONIC RIGHT SIDED CHF COPD - patient presenting with increasing shortness of breath x 1 week with productive cough; - CXR showing small right pleural effusion - no clear infiltrate; WBC 17K however likely due to steroids; do not suspect pneumonia - Nephrology consulted placed on HD + albumin daily continued home doses of Torsemide and metolazone - given nebs q6h and continued home inhalers -- clinically improved back to baseline as per patient on usual 3 liters NC EKG CHANGES - new T-wave inversion anteriorly - no reports of chest pain - troponin negative - echo: -- Conclusions -- * A follow up study was requested to assess biventricular funciton. Limited views were obtained. * The left ventricular cavity is small. * There is moderate concentric left ventricular hypertrophy. * The LV Ejection Fraction = >70 %. * Flattened septum is consistent with RV pressure/volume overload. * The LV wall motion is otherwise normal. * The right ventricle is severely dilated. * There is moderate tricuspid regurgitation. * Severe pulmonary hypertension is present. * The pulmonary artery systolic pressure is calculated to be 80 mm Hg, assuming a right atrial pressure of 15 mm Hg. * Dilated inferior vena cava with reduced collapsability with sniff indicates an elevated right atrial pressure of 15 mmHg. PAROXYSMAL AFIB - currently in NSR - rate controlled on beta reyes - on Coumadin, INR 1.8 resume coumadin today ff up with coumadin clinic next week DM - hgb ac 8.1 12/2016 - continue usual Insulin regimen CHRONIC BL HIP WOUNDS - wound care consulted wound vac placed - continue antibiotics- augmentin and cipro - continue ff up with Wound Care Center and ID Clinic HYPOTHYROIDISM - continue Levothyroxine CODE STATUS - Patient is a full code DISPO d/c home ff up with PCP in 3-5 days ff up with Nephro, ID, Wound Care as scheduled Current Inpatient Medications: Current Inpatient Medications Medications (Trade) Dose Ordered Sig/Tyrone Route Start Time Stop Time Status Last Admin Dose Admin Acetaminophen (Tylenol Tab) 650 mg Q4H PRN PO 03/26/17 14:00 04/25/17 13:59 Ondansetron HCl (Zofran Inj) 4 mg Q6H PRN IV 03/26/17 14:00 04/25/17 13:59 Nitroglycerin (Nitrostat Tab) 0.4 mg UD PRN SL 03/26/17 14:00 04/25/17 13:59 Albuterol/ Ipratropium (Duoneb) 3 ml QIDR INH 03/26/17 16:00 04/25/17 15:59 03/29/17 15:37 3 ML Insulin Glargine (Lantus Solostar Pen) 10 units HS SC 03/26/17 21:00 04/25/17 20:59 03/28/17 21:30 10 UNITS Insulin Aspart (novoLOG ASPART) SLIDING SCALE If C... ACHS SC 03/26/17 16:00 04/25/17 15:59 03/29/17 12:44 5 UNITS Glucose (Glucose 40% Gel) 15-30 GRAMS 15 GRAMS... UD PRN PO 03/26/17 14:15 04/25/17 14:14 Glucose (Glucose Chew Tab) 4-8 Tablets 4 Tabl... UD PRN PO 03/26/17 14:15 04/25/17 14:14 Dextrose (Dextrose 50% 50ML Syringe) 25-50ML OF 50% DW IV FOR... UD PRN IV 03/26/17 14:15 04/25/17 14:14 Glucagon (Glucagon Inj) 1 mg UD PRN SQ 03/26/17 14:15 04/25/17 14:14 Miscellaneous Information (Consult Glycemic Management Pharmacy) 1 ea UD PRN N/A 03/26/17 14:04 04/25/17 14:03 Amoxicillin/ Clavulanate Potassium (Augmentin Tab) 875 mg BID PO 03/26/17 21:00 04/05/17 20:59 03/29/17 08:01 875 MG Ascorbic Acid (Vitamin C Tab) 500 mg BID PO 03/26/17 21:00 04/25/17 20:59 03/29/17 08:01 500 MG Aspirin (Ecotrin Tab) 81 mg DAILY PO 03/27/17 09:00 04/26/17 08:59 03/29/17 08:03 81 MG Atorvastatin Calcium (Lipitor Tab) 40 mg DAILY PO 03/27/17 09:00 04/26/17 08:59 03/29/17 08:05 40 MG Calcitriol (Rocaltrol Cap) 0.25 mcg MoWeFr@0900 PO 03/28/17 09:00 04/27/17 08:59 03/28/17 07:38 0.25 MCG Cyanocobalamin (Vitamin B-12 Tab) 1,000 mcg DAILY PO 03/27/17 09:00 04/26/17 08:59 03/29/17 08:03 1,000 MCG Docusate Sodium (coLACE CAP) 100 mg BID PO 03/26/17 21:00 04/25/17 20:59 03/29/17 08:03 100 MG Gabapentin (Neurontin Cap) 400 mg BID PO 03/26/17 21:00 04/25/17 20:59 03/29/17 08:01 400 MG Levothyroxine Sodium (Synthroid Tab) 125 mcg DAILYBB PO 03/27/17 06:30 04/26/17 06:29 03/29/17 05:46 125 MCG Magnesium Oxide (Mag-Ox Tab) 400 mg BID PO 03/26/17 21:00 04/25/17 20:59 03/29/17 08:02 400 MG Metoprolol Succinate (Toprol Xl Tab) 25 mg DAILY PO 03/27/17 09:00 04/26/17 08:59 03/29/17 08:00 25 MG Miconazole Nitrate (Desenex Powder) 1 appln MoWeFr@0900 EXT 03/28/17 09:00 04/27/17 08:59 03/28/17 07:35 1 APPLN Prednisone (PredniSONE TAB) 5 mg DAILY PO 03/27/17 09:00 04/26/17 08:59 03/29/17 08:04 5 MG Sertraline HCl (Zoloft Tab) 100 mg DAILY PO 03/27/17 09:00 04/26/17 08:59 03/29/17 08:04 100 MG Tiotropium [place] (Spiriva Handihaler Inhaler) 30 puff DAILY INH 03/27/17 09:00 04/26/17 08:59 03/29/17 08:05 1 PUFF Torsemide (Demadex Tab) 100 mg DAILY PO 03/27/17 09:00 04/26/17 08:59 03/29/17 08:00 100 MG Miscellaneous Information (Order Awaiting Action) 1 ea QS N/A 03/26/17 16:00 04/25/17 15:59 Cholecalciferol (Vitamin D Tab) 2,000 inter.unit DAILY PO 03/27/17 09:00 04/26/17 08:59 03/29/17 08:03 2,000 INTER.UNIT Pantoprazole Sodium (Protonix Tab) 40 mg DAILY PO 03/27/17 09:00 04/26/17 08:59 03/29/17 08:04 40 MG Acetaminophen/ Hydrocodone Bitart ([place] 5/325 Tab) 1 tab Q6H PRN PO 03/26/17 14:15 04/09/17 14:14 03/29/17 12:39 1 TAB Metolazone (Zaroxolyn Tab) 2.5 mg Q7D@0830 PO 04/05/17 08:30 04/28/17 08:59 Ciprofloxacin (Ciprofloxacin Tab) 750 mg BID PO 03/26/17 21:00 04/05/17 20:59 03/29/17 08:02 750 MG Collagenase (Santyl Oint) 1 appln DAILY EXT 03/28/17 09:00 04/27/17 08:59 03/29/17 08:01 1 APPLN Enteral Nutritional Formula (Boost Pudding) 1 cup BIDM PO 03/27/17 17:00 04/26/17 16:59 03/29/17 07:59 1 CUP Warfarin Sodium (Coumadin Tab) 5 mg DAILY@16 PO 03/30/17 16:00 04/29/17 15:59
[2017-03-29] MEDS ORDERED: NUTRMIS PO (17:49)
[2017-03-29] MEDS ORDERED: SNTO30 EXT (17:49)
--- NOTE | 2017-03-29 17:52 | Discharge Instructions ---
Discharge Instructions Date of Service Mar 29, 2017. Admission Reason for Admission: Chf (Congestive Heart Failure) Discharge Discharge Diagnosis / Problem: Volume Overload Discharge Goals Goal(s): Diagnostic testing, Therapeutic intervention Activity Recommendations Activity Limitations: as noted below (increase activity gradually as tolerated) . Instructions / Follow-Up Instructions / Follow-Up CALL YOUR PRIMARY CARE PHYSICIAN OR RETURN TO ER IMMEDIATELY IF WITH RECURRENCE OF SYMPTOMS, INCREASING COUGH, SPUTUM, FEVER/CHILLS. FOLLOW UP WITH YOUR PRIMARY CARE PHYSICIAN IN 1 WEEK. (CLINIC WILL CALL YOU FOR THE APPOINTMENT). FOLLOW UP WITH [facility] AND DR. HOLT SCHEDULED. Call your Primary Care doctor if any of the following symptoms or problems start or get worse: * Shortness of breath or difficulty breathing * Wake up at night short of breath * Chest pain * Cough * Swelling of your hands, feet, or legs * More fatigued or tired with your normal activity * Palpitations - sudden fast heart beats WEIGHT * Weigh yourself every morning after using the bathroom. * Use the same scale. * Wear the same amount of clothing. * Write your weight down on a chart. * Call your Primary Care doctor if you gain more than 2-3 pounds in 1-2 days. MEDICATIONS * Use this discharge instruction sheet for medication instructions. * Take your medications at the time your doctor ordered. * Do not skip a dose of your medicines. * If you miss a dose of medicine, take it as soon as possible, but DO NOT DOUBLE A DOSE. * Read your medicine information when you get home. * Know all of the side effects of your medicine. If in doubt, ask your pharmacist * Call your Primary Care doctor's office if you have any side effects. * Be sure all of your doctors know what medicine and herbs you take (including cold, flu, and herbal medicine). Take the following with you to your follow-up doctor appointments: * Weight Chart * Medication List * List of questions Do not drink excessive alcohol, beer or wine. Current Hospital Diet Patient's current hospital diet: Diabetes Type 2 Diet, Renal Diet Discharge Diet Recommended Diet: Diabetes Type 2 Diet, Renal Diet Fluid Restriction: 1500 ml (6 cups) Pending Studies Studies pending at discharge: no Laboratory Results Hemoglobin A1c Test 03/27/17 06:13 Range/Units Estimated Average Glucose 143 mg/dl Hemoglobin A1c 6.6 H 4.5-5.6 % Medical Emergencies . Who to Call and When: Call 911 or go to the Emergency Room if: * If at any time you feel your situation is an emergency * You have tightness or pain in your chest that does not go away with rest or Nitroglycerin * You are very short of breath even with rest . Non-Emergent Contact Non-Emergency issues call your: Primary Care Provider Call Non-Emergent contact if: you have a fever, your pain is not controlled, wound has increased drainage, wound has increased redness, wound has increased pain, you have any medication questions . . "Provider Documentation" section prepared by Cooper Chaudhary. . VTE Core Measure Inpt VTE Proph given/why not?: Warfarin (Coumadin)
[2017-03-30] MEDS ORDERED: WARFARIN SOD 5 MG TAB PO SCH (16:00)
--- NOTE | 2017-03-30 17:19 | Discharge Summary ---
Discharge Summary Date of Service Mar 30, 2017. Discharge Summary Admission Date: Mar 26, 2017 at 15:10 Discharge Date: Mar 29, 2017 Discharge Disposition: Home Principal Diagnosis: ACUTE ON CHRONIC RESPIRATORY FAILURE secondary to VOLUME OVERLOAD IN THE SETTING OF ESRD Secondary Diagnoses/Problems: please refer to hospital course below. Procedures: CHEST ONE VIEW PORTABLE CLINICAL HISTORY: Sepsis sepsis COMPARISON STUDY: 03/06/2017 FINDINGS: Moderate stable cardiomegaly. Small right pleural effusion slightly improved as compared to the prior study. PermCath in superior vena cava. Lungs otherwise are clear. IMPRESSION: Moderate stable cardia megaly. Small right pleural effusion improved from the prior exam . No focal infiltrate. Consultations: [facility] Dr. [place] Pending Studies/Follow-Up: Please refer to hospital course below. Medication Reconciliation New Medications: Collagenase (Santyl) 250 Unit/Gm Oin 1 APPLN EXT DAILY for 30 Days, #1 TUBE 2 Refills Nutritional Supplements (Boost Pudding) 1 Mis Mis 1 CUP PO BIDM for 30 Days, #60 UNITS 2 Refills Continued Medications: Acetaminophen Tab (Tylenol) 325 Mg Tab 650 MG PO Q6H PRN for PAIN OR TEMP > 100F, TAB NTE 3GM APAP/24HRS Amoxicillin & Pot Clavulanate (Augmentin 875-125 mg) 1 Tab Tab 875 MG PO BID for 30 Days, #60 TAB 2 Refills Ascorbic Acid (Vitamin C) 500 Mg Tab 500 MG PO BID Aspirin (Aspirin Ec) 81 Mg Tab 81 MG PO DAILY Atorvastatin (Lipitor) 40 Mg Tab 40 MG PO DAILY, TAB B-Complex W/ C & Folic Acid (Renal Vitamin 0.8 mg) 1 Tab Tab 1 TAB PO DAILY Calcitriol (Rocaltrol Cap) 0.25 Mcg Cap 0.25 MCG PO UD, CAP MWF Cholecalciferol (Vitamin D3) 2,000 Unit Cap 1 CAP PO DAILY Ciprofloxacin (Ciprofloxacin HCl) 750 Mg Tab 750 MG PO BID for 30 Days, #60 TABS 2 Refills Cyanocobalamin (Vitamin B-12) 1,000 Mcg Tab 1000 MCG PO DAILY, TAB Docusate Sodium (Colace) 100 Mg Cap 1 CAP PO BID, CAP Gabapentin (Neurontin) 400 Mg Cap 400 MG PO BID Home O2 Therapy (Oxygen) Gas 4 LITERS NA CONTINOUS, BTL Hydrocodone/Acetaminophen 5MG/325MG ([place] 5MG/325MG) Tab 1 TABLET PO Q6H PRN for Pain, TAB PRN PAIN Insulin Aspart (Novolog) 100 Units/Ml Inj Unknown Dose SC AC SLIDING SCALE Insulin Glargine (Lantus Solostar) 100 Unit/Ml Inj 30 UNITS SC HS, PEN Levothyroxine Sodium (Synthroid) 125 Mcg Tab 125 MCG PO DAILY, TAB Magnesium Oxide (Mag-Ox) 400 Mg Tab 400 MG PO BID, TAB Metolazone (Zaroxolyn) 2.5 Mg Tab 2.5 MG PO WK, TAB TAKE EVERY FRIDAY Metoprolol Succinate (Toprol Xl) 50 Mg Tab 25 MG PO DAILY, TAB Miconazole Nitrate (Desenex Shake Powder) 43 Appln/43 Gm Powd 1 APPLN EXT MoWeFr@0900 for 7 Days Pantoprazole (Protonix) 20 Mg Tab 20 MG PO DAILY Prednisone (Prednisone) 5 Mg Tab 5 MG PO DAILY, TAB Sertraline (Zoloft) 100 Mg Tab 100 MG PO DAILY, TAB Tiotropium [place] (Spiriva Handihaler) 30 Puff/540 Mcg Aerp 1 CAP INH DAILY, INHALER Torsemide (Demadex) 100 Mg Tab 100 MG PO DAILY, TAB Warfarin Sod (Coumadin) 2.5 Mg Tab 2.5 MG PO WK, TAB THURS Warfarin Sodium (Coumadin) 5 Mg Tab 5 MG PO 6XWK, TAB MON,TUES,WED,FRI,SAT,SUN Discontinued Medications: Levofloxacin (Levaquin) 500 Mg Tab 500 MG PO BID, TAB ENDS 03-27-17 Admission Information HPI (per Admitting provider): 61 year old female who presents to the ER with shortness of breath. Patient was seen by her PCP last week for increasing shortness of breath and cough. She was started on Levaquin for a suspected pneumonia. She reports cough was productive for yellow / green sputum. Noted patient is also on Augmentin and Cipro for chronic hip wounds. She has continued to take these with the Cipro. Today when patient arrived at dialysis she was short of breath. She had her treatment and shortness of breath persisted so she was referred to the ER for further evaluation. Chronic lower extremity edema has been at baseline. She denies fever and chills. No abdominal pain, nausea, vomiting, or diarrhea. She denies chest pain. She reports mild lightheadedness and dizziness with standing at times. She continues to make urine and denies any urinary symptoms. In the ER, patient was saturating 73% on her chronic 4L. This improved with 5L oxygen via NC. CXR is showing a small right pleural effusion. She was treated with IV Solumedrol and neb. Physical Exam (per Admitting): General Appearance: no apparent distress Head: normocephalic Eyes: normal inspection ENT: hearing grossly normal Neck: supple, no JVD Respiratory/Chest: + pertinent finding (coarse breath sounds throughout right lung alvarado; dialysis catheter noted to right anterior chest wall) Cardiovascular: regular rate, rhythm, + pertinent finding (+2 edema BLLE) Abdomen/GI: normal bowel sounds, non tender, soft Extremities/Musculoskelatal: normal inspection, no calf tenderness Neurologic/Psych: no motor/sensory deficits, alert, normal mood/affect, oriented x 3 Skin: + pertinent finding (reported BL hip wounds with wound vac in place) Hospital Course SHORTNESS OF BREATH, ACUTE ON CHRONIC RESPIRATORY FAILURE VOLUME OVERLOAD IN THE SETTING OF ESRD ON HD AND ACUTE ON CHRONIC RIGHT SIDED CHF COPD - patient presented with increasing shortness of breath x 1 week with productive cough; - CXR showing small right pleural effusion - no clear infiltrate; WBC 17K however likely due to steroids; do not suspect pneumonia - Nephrology consulted placed on hemodialysis + albumin daily continued home doses of Torsemide and metolazone given nebs q6h and continued home inhalers -- clinically improved gradually back to baseline as per patient on usual 3 liters NC -- continue HD as managed by Nephrology EKG CHANGES - new T-wave inversion anteriorly - no reports of chest pain - troponin negative - echo: -- Conclusions -- * A follow up study was requested to assess biventricular funciton. Limited views were obtained. * The left ventricular cavity is small. * There is moderate concentric left ventricular hypertrophy. * The LV Ejection Fraction = >70 %. * Flattened septum is consistent with RV pressure/volume overload. * The LV wall motion is otherwise normal. * The right ventricle is severely dilated. * There is moderate tricuspid regurgitation. * Severe pulmonary hypertension is present. * The pulmonary artery systolic pressure is calculated to be 80 mm Hg, assuming a right atrial pressure of 15 mm Hg. * Dilated inferior vena cava with reduced collapsability with sniff indicates an elevated right atrial pressure of 15 mmHg. PAROXYSMAL AFIB - currently in NSR - rate controlled on beta reyes - on Coumadin, INR 1.8 resume coumadin (held for supratherapeutic INR) ff up with coumadin clinic next week DM - hgb ac 8.1 12/2016 - continue usual Insulin regimen CHRONIC BL HIP WOUNDS - wound care consulted wound vac placed - continue antibiotics- augmentin and cipro - continue ff up with Wound Care Center and ID Clinic HYPOTHYROIDISM - continue Levothyroxine CODE STATUS - Patient is a full code DISPO d/c home ff up with PCP in 3-5 days ff up with Nephro, ID, Wound Care as scheduled Total time spent on discharge = This includes examination of the patient, discharge planning, medication reconciliation, and communication with other providers. Discharge Instructions Discharge Instructions Date of Service Mar 29, 2017. Admission Reason for Admission: Chf (Congestive Heart Failure) Discharge Discharge Diagnosis / Problem: Volume Overload Discharge Goals Goal(s): Diagnostic testing, Therapeutic intervention Activity Recommendations Activity Limitations: as noted below (increase activity gradually as tolerated) . Instructions / Follow-Up Instructions / Follow-Up CALL YOUR PRIMARY CARE PHYSICIAN OR RETURN TO ER IMMEDIATELY IF WITH RECURRENCE OF SYMPTOMS, INCREASING COUGH, SPUTUM, FEVER/CHILLS. FOLLOW UP WITH YOUR PRIMARY CARE PHYSICIAN IN 1 WEEK. (CLINIC WILL CALL YOU FOR THE APPOINTMENT). FOLLOW UP WITH WOUND [facility]ARE CENTER AND DR. HOLT SCHEDULED. Call your Primary Care doctor if any of the following symptoms or problems start or get worse: * Shortness of breath or difficulty breathing * Wake up at night short of breath * Chest pain * Cough * Swelling of your hands, feet, or legs * More fatigued or tired with your normal activity * Palpitations - sudden fast heart beats WEIGHT * Weigh yourself every morning after using the bathroom. * Use the same scale. * Wear the same amount of clothing. * Write your weight down on a chart. * Call your Primary Care doctor if you gain more than 2-3 pounds in 1-2 days. MEDICATIONS * Use this discharge instruction sheet for medication instructions. * Take your medications at the time your doctor ordered. * Do not skip a dose of your medicines. * If you miss a dose of medicine, take it as soon as possible, but DO NOT DOUBLE A DOSE. * Read your medicine information when you get home. * Know all of the side effects of your medicine. If in doubt, ask your pharmacist * Call your Primary Care doctor's office if you have any side effects. * Be sure all of your doctors know what medicine and herbs you take (including cold, flu, and herbal medicine). Take the following with you to your follow-up doctor appointments: * Weight Chart * Medication List * List of questions Do not drink excessive alcohol, beer or wine. Current Hospital Diet Patient's current hospital diet: Diabetes Type 2 Diet, Renal Diet Discharge Diet Recommended Diet: Diabetes Type 2 Diet, Renal Diet Fluid Restriction: 1500 ml (6 cups) Pending Studies Studies pending at discharge: no Laboratory Results Hemoglobin A1c Test 03/27/17 06:13 Range/Units Estimated Average Glucose 143 mg/dl Hemoglobin A1c 6.6 H 4.5-5.6 % Medical Emergencies . Who to Call and When: Call 911 or go to the Emergency Room if: * If at any time you feel your situation is an emergency * You have tightness or pain in your chest that does not go away with rest or Nitroglycerin * You are very short of breath even with rest . Non-Emergent Contact Non-Emergency issues call your: Primary Care Provider Call Non-Emergent contact if: you have a fever, your pain is not controlled, wound has increased drainage, wound has increased redness, wound has increased pain, you have any medication questions . . "Provider Documentation" section prepared by Cooper Chaudhary. . VTE Core Measure Inpt VTE Proph given/why not?: Warfarin (Coumadin)
[2017-04-05] MEDS ORDERED: METOLAZONE 2.5 MG TAB PO SCH (08:30)
[2017-04-29] MEDS ORDERED: ATOR-24 PO (02:35)
[2017-04-29] MEDS ORDERED: PRED-301 PO (02:48)
[2017-04-29] MEDS ORDERED: LEVO125T72 PO (09:15)
[2017-04-29] MEDS ORDERED: CYAN10005 PO (09:18)
[2017-04-29] MEDS ORDERED: MAGN400T5 PO (10:32)
[2017-04-29] MEDS ORDERED: CALC0.2510 PO (10:32)
[2017-04-29] MEDS ORDERED: NVLG SC (12:03)
[2017-04-29] MEDS ORDERED: OXGN (12:03)
[2017-04-29] MEDS ORDERED: WARF5TAB90 PO (12:03)
[2017-04-29] MEDS ORDERED: DOCU-94 PO (12:03)
[2017-04-29] MEDS ORDERED: CMD/25 PO (12:03)
[2017-04-29] MEDS ORDERED: INSDGIPEN SC (12:03)
[2017-04-29] MEDS ORDERED: SPRIN/30 INH (12:03)
[2017-04-29] MEDS ORDERED: B-CO1TAB73 PO (12:03)
[2017-04-29] MEDS ORDERED: CHOL2000 PO (12:03)
[2017-04-29] MEDS ORDERED: ASPI81TA28 PO (12:03)
[2017-05-05] MEDS ORDERED: AMOX500T PO (17:15)
[2017-05-05] MEDS ORDERED: CIPR1TAB11 PO (17:15)
[2017-05-30] MEDS ORDERED: LVQ500 PO (17:03)
[2017-06-12] MEDS ORDERED: CIPR1TAB11 PO (15:05)
[2017-06-12] MEDS ORDERED: AMOX500T PO (15:05)
== END 2017-03-29 19:59 | disposition home health service (06) | DRG 189 ==
LOC: C.EDB 10:31 → ENRESERV 14:13 → C.MED 15:10
PROVIDERS: ADMIT Internal Medicine; ATTEND Internal Medicine
DX: J96.20 Acute and chronic respiratory failure, unspecified whether with hypoxia or hypercapnia (principal); N18.6 End stage renal disease; E87.70 Fluid overload, unspecified; Z79.82 Long term (current) use of aspirin; I48.0 Paroxysmal atrial fibrillation; E11.9 Type 2 diabetes mellitus without complications; Z79.4 Long term (current) use of insulin; S71.001A Unspecified open wound, right hip, initial encounter; S71.002A Unspecified open wound, left hip, initial encounter; X58.XXXA Exposure to other specified factors, initial encounter; E03.9 Hypothyroidism, unspecified; Z83.3 Family history of diabetes mellitus; Z82.49 Family history of ischemic heart disease and other diseases of the circulatory system; Z80.8 Family history of malignant neoplasm of other organs or systems; Z87.891 Personal history of nicotine dependence; I50.9 Heart failure, unspecified; Z79.01 Long term (current) use of anticoagulants; Z99.81 Dependence on supplemental oxygen; J44.9 Chronic obstructive pulmonary disease, unspecified

== ENCOUNTER 2017-04-29 12:45 | Inpatient (IN) | payer OTHER ==
[~2017-04-29] VITALS: Ht 162.6 cm; Wt 110.7 kg
[~2017-04-29 12:45] MED LIST changes: -ALBU1AER9 PO; -ASPEC81 PO; +ASPI81TA28 PO; +ATOR-24 PO; +B-CO1TAB73 PO; +CALC0.2510 PO; -CHOL100010 PO; +CHOL2000 PO; +CMD/25 PO; -CMD25 PO; +CYAN10005 PO; +DOCU-94 PO; -HYDR-3126 PO; -HYDR-3419 PO; -INSDGI SQ; +INSDGIPEN SC; -INSUINJ14 SC; +LEVO125T72 PO; -LORA-741 PO; +MAGN400T5 PO; -MCTP EXT; -MULTTAB63 PO; +NUTRMIS PO; +NVLG SC; +OXGN; -POTA20TA13 PO; +PRED-301 PO; +SNTO30 EXT; +SPRIN/30 INH; -TIOTCAP INH; -TORS100T13 PO; +WARF5TAB90 PO; -protein powder PO
--- NOTE | 2017-04-29 13:03 | EMERGENCY ROOM VISIT NOTE ---
History Report prepared by Hailey: Suzanna Dey Under the Supervision of: Dr. Antonio Barnhart D.O. First contact with patient: 12:57 Stated Complaint: ABD SORE/BLEEDING History of Present Illness The patient is a 61 year old female who presents to the Emergency Room with complaints of persistent bleeding. She is accompanied by her daughter and was brought to the ED via EMS. Her daughter reports they were at the dentist when the patient went to use the bathroom. She came out of the bathroom and told her she was "pouring out blood" from her abdomen, so an ambulance was called. The patient has several known bed sores on her lower abdomen and buttock area that she follows with the [facility] for. She states her lower abdomen "hayden" currently. The patient is on daily Coumadin for a history of atrial fibrillation and was recently placed on Cipro and Amoxicillin for her wounds. Source of History: patient, family (daughter) Onset: [employer] PIPE Position: abdomen Quality: other (bleeding) Timing: other (persistent) Review of Systems See HPI for pertinent positives & negatives. A total of 10 systems reviewed and were otherwise negative. Past Medical & Surgical Medical Problems: (1) Atrial fibrillation (2) Chronic respiratory failure with hypoxia (3) chronic wound (4) COPD (chronic obstructive pulmonary disease) (5) Depression (6) DM type 2 (diabetes mellitus, type 2) (7) ESRD (end stage renal disease) on dialysis (8) HLD (hyperlipidemia) (9) HTN (hypertension) (10) Hypothyroidism (11) Neuropathy (12) Open abdominal wall wound (13) Pulmonary HTN (14) RHF (right heart failure) Surgical Problems: (1) S/P cholecystectomy (2) S/P debridement Family History Diabetes mellitus MOTHER FH: brain cancer FATHER FH: heart disease MOTHER Social History Smoking Status: Former Smoker Alcohol Use: none Drug Use: none Marital Status: Housing Status: lives with family Occupation Status: disabled Current/Historical Medications Scheduled Amoxicillin & Pot Clavulanate (Augmentin 875-125 mg), 1 TAB PO BID Ascorbic Acid (Vitamin C), 500 MG PO BID Aspirin (Aspirin Ec), 81 MG PO DAILY Atorvastatin (Lipitor), 40 MG PO DAILY B-Complex W/ C & Folic Acid (Renal Vitamin 0.8 mg), 1 TAB PO DAILY Calcitriol (Rocaltrol Cap), 0.25 MCG PO UD Cholecalciferol (Vitamin D3), 1 CAP PO DAILY Ciprofloxacin Tab (Cipro), 750 MG PO BID Collagenase (Santyl), 1 APPLN EXT DAILY Cyanocobalamin (Vitamin B-12), 1,000 MCG PO DAILY Docusate Sodium (Colace), 1 CAP PO BID Gabapentin (Neurontin), 400 MG PO BID Home O2 Therapy (Oxygen), 4 LITERS NA CONTINOUS Insulin Aspart (Novolog), Unknown Dose SC AC Insulin Glargine (Lantus Solostar), 30 UNITS SC HS Levothyroxine Sodium (Synthroid), 125 MCG PO DAILY Magnesium Oxide (Mag-Ox), 400 MG PO BID Metoprolol Succ (Toprol Xl) (Toprol-Xl), 25 MG PO DAILY Pantoprazole (Protonix), 20 MG PO DAILY Prednisone (Prednisone), 5 MG PO DAILY Sertraline (Zoloft), 100 MG PO DAILY Tiotropium [place] (Spiriva Handihaler), 1 CAP INH DAILY Warfarin Sod (Coumadin), 2.5 MG PO 3XWK Warfarin Sodium (Coumadin), 5 MG PO 4XWK Scheduled PRN Hydrocodone/Acetaminophen 5MG/325MG ([place] 5MG/325MG), 1 TABLET PO Q6H PRN for Pain Allergies Coded Allergies: Bacitracin (Verified Allergy, Intermediate, RASH,ITCH, 04/29/17) Celecoxib (Verified Allergy, Intermediate, RASH TO SULFA DRUGS, 04/29/17) Neomycin (Verified Allergy, Intermediate, RASH,ITCH, 04/29/17) Polymyxin B (Verified Allergy, Intermediate, RASH,ITCH, 04/29/17) Sulfa Antibiotics (Verified Allergy, Intermediate, RASH,HAS TAKEN GLIPIZIDE W/O REACTION, 04/29/17) Tigecycline (Verified Adverse Reaction, Severe, MILD PANCREATITIS, 04/29/17 ) 61 yo F placed on IV tigecycline for wound infection, after 5-6 days developed decreased appetite, had nonspecific abdominal pain from admission and was refusing to lie back for daily abd assessments because of pain in other areas of abdomen. Decreased appetite persisted, also in context of worsening depression and stated apathy, WBC continued to increase, CT chest revealed n/s changes possibly consistent with mild pancreatitis, lipase drawn and elevated, other causes ruled out, clinical pancreatitis on exam. Diruretics/albumin stopped to avoid further rehydration, tigecycline discontinued, continuing supportive care. Codeine (Verified Adverse Reaction, Intermediate, GI UPSET, 04/29/17) Physical Exam Vital Signs Date Time Temp Pulse Resp B/P (MAP) Pulse Ox O2 Delivery O2 Flow Rate FiO2 04/29/17 16:32 Nasal Cannula 4.0 04/29/17 15:47 77 20 105/59 96 Nasal Cannula 4.0 04/29/17 14:48 73 16 130/55 100 Room Air 04/29/17 14:00 75 20 117/61 04/29/17 13:11 75 04/29/17 13:10 36.6 77 16 119/61 93 Room Air Physical Exam GENERAL: Patient is awake, alert, very anxious and uncomfortable appearing. EYES: The conjunctivae are clear. The pupils are round and reactive. EARS, NOSE, MOUTH AND THROAT: The nose is without any evidence of any deformity. Mucous membranes are moist tongue is midline NECK: The neck is nontender and supple. RESPIRATORY: Lung sounds are diminished throughout with coarse rhonchi. CARDIOVASCULAR: Regular rate and rhythm noted there no murmurs rubs or gallops normal S1 normal S2 GASTROINTESTINAL: The abdomen is diffusely tender but soft. Bowel sounds are present in all quadrants. MUSCULOSKELETAL/EXTREMITIES: There is no evidence of gross deformity full range of motion is noted in the hips and shoulders SKIN: Pedal edema bilaterally. Deep pressure ulcer in LLQ of abdomen. Active bleeding noted with an exposed blood vessel. Significant amount of bleeding noted. There is no obvious evidence of any rash. There are no petechiae, pallor or cyanosis noted. NEUROLOGIC: Patient is awake alert and oriented x3 strength is symmetric patellar reflexes are 2+ bilaterally Medical Decision & Procedures Laboratory Results 04/29/17 12:21 Red Blood Count 3.77, Mean Corpuscular Volume 81.4, Mean Corpuscular Hemoglobin 23.1, Mean Corpuscular Hemoglobin Concent 28.3, Mean Platelet Volume 8.5, Neutrophils (%) (Auto) 68.2, Lymphocytes (%) (Auto) 10.7, Monocytes (%) (Auto) 15.0, Eosinophils (%) (Auto) 4.5, Basophils (%) (Auto) 0.9, Neutrophils # (Auto ) 10.38, Lymphocytes # (Auto) 1.63, Monocytes # (Auto) 2.29, Eosinophils # (Auto ) 0.69, Basophils # (Auto) 0.13 04/29/17 17:04 04/29/17 12:21 Test 04/29/17 12:21 04/29/17 13:02 04/29/17 15:35 White Blood Count 15.22 K/uL (4.8-10.8) Red Blood Count 3.77 M/uL (4.2-5.4) Hemoglobin 8.7 g/dL (12.0-16.0) Hematocrit 30.7 % (37-47) Mean Corpuscular Volume 81.4 fL (80-100) Mean Corpuscular Hemoglobin 23.1 pg (25-34) Mean Corpuscular Hemoglobin Concent 28.3 g/dl (32-36) Platelet Count 477 K/uL (130-400) Mean Platelet Volume 8.5 fL (7.4-10.4) Neutrophils (%) (Auto) 68.2 % Lymphocytes (%) (Auto) 10.7 % Monocytes (%) (Auto) 15.0 % Eosinophils (%) (Auto) 4.5 % Basophils (%) (Auto) 0.9 % Neutrophils # (Auto) 10.38 K/uL (1.4-6.5) Lymphocytes # (Auto) 1.63 K/uL (1.2-3.4) Monocytes # (Auto) 2.29 K/uL (0.11-0.59) Eosinophils # (Auto) 0.69 K/uL (0-0.5) Basophils # (Auto) 0.13 K/uL (0-0.2) RDW Standard Deviation 62.6 fL (36.4-46.3) RDW Coefficient of Variation 21.3 % (11.5-14.5) Immature Granulocyte % (Auto) 0.7 % Immature Granulocyte # (Auto) 0.10 K/uL (0.00-0.02) Poikilocytosis PRESENT Anisocytosis PRESENT Anion Gap 7.0 mmol/L (3-11) Est Creatinine Clear Calc Drug Dose 23.6 ml/min Estimated GFR () 18.5 Estimated GFR (Non- 16.0 BUN/Creatinine Ratio 10.0 (10-20) Calcium Level 9.0 mg/dl (8.5-10.1) Total Bilirubin 0.5 mg/dl (0.2-1) Direct Bilirubin 0.2 mg/dl (0-0.2) Aspartate Amino Transf (AST/SGOT) 37 U/L (15-37) Alanine Aminotransferase (ALT/SGPT) 39 U/L (12-78) Alkaline Phosphatase 214 U/L (45-117) Total Protein 6.7 gm/dl (6.4-8.2) Albumin 2.2 gm/dl (3.4-5.0) Bedside Prothrombin Time INR 1.7 (0.9-1.1) Prothrombin Time 16.3 SECONDS (9.0-12.0) Prothromb Time International Ratio 1.5 (0.9-1.1) Activated Partial Thromboplast Time 39.7 SECONDS (21.0-31.0) Partial Thromboplastin Ratio 1.5 Laboratory results per my review. Procedure Bleeding Wound in LLQ of Abdomen Vessel was ligated with 4 figure 8 sutures using 4-0 Vicryl sutures. The area was cleaned with Betadine and normal saline scrub. No complications and the patient tolerated the procedure well. ED Course 1259: The patient was evaluated in room B7. A complete history and physical examination were performed. 1500: I reevaluated the patient. She is resting comfortably. I discussed my recommendation she remain in the hospital for further evaluation and management and she verbalized complete understanding and agreement. 1516: I discussed the patients case with Alice Alvarez PA-C, [facility] Hospitalist. The patient will be further evaluated. Medical Decision Nursing notes reviewed. Additional history is obtained from the family as well as the prehospital personnel. The patient is a 61-year-old female who has multiple pressure ulcers chronically. She has one on her lower abdomen which appears to be healing well but started bleeding today. There was an exposed blood vessel which was bleeding profusely. The patient had significant blood loss prior to arrival. The patient currently is on anticoagulation. We were able to stop the bleeding with pressure and then multiple finger 8 absorbable sutures were placed over this vessel. This controlled the bleeding well. Quick clot dressing was applied. The patient was reevaluated multiple times. The patient has underlying anemia and at this time her hemoglobin is stable but I do feel that likely drop over next 24 hours. Given the patient's current anticoagulation use as well as the amount of blood that was on scene I [facility]'ve agreed to evaluate the patient in the emergency department for further management and disposition. Medication Reconcilliation Current Medication List: was personally reviewed by me Blood Pressure Screening Patient's blood pressure: Low blood pressure Blood pressure disposition: Did not require urgent referral Consults Time Called: 1510 Consulting Physician: [facility] Return[facility] Call: 1516 I discussed the patients case with [facility], [facility]. The patient will be further evaluated. Impression Primary Impression: Acute hemorrhage Additional Impressions: Pressure ulcer Anemia Scribe Attestation The scribe's documentation has been prepared under my direction and personally reviewed by me in its entirety. I confirm that the note above accurately reflects all work, treatment, procedures, and medical decision making performed by me. Departure Information Dispostion Being Evaluated By Hospitalist Referrals Narendra Gonzalez M.D. (PCP) Problem Qualifiers Additional Impressions: Pressure ulcer Pressure ulcer location: unspecified location Pressure ulcer stage: unspecified pressure ulcer stage Qualified Codes: L89.90 - Pressure ulcer of unspecified site, unspecified stage Anemia Anemia type: unspecified type Qualified Codes: D64.9 - Anemia, unspecified
[2017-04-29] MEDS ORDERED: SERT-234 PO (13:18)
[2017-04-29] MEDS ORDERED: ASCA500 PO (13:18)
[2017-04-29] MEDS ORDERED: METO25TA3 PO (14:07)
[2017-04-29] MEDS ORDERED: AMOX875T PO (14:07)
[2017-04-29] MEDS ORDERED: CIPR1TAB11 PO (14:07)
[2017-04-29] MEDS ORDERED: HYDR-5688 PO (14:10)
[2017-04-29 14:33] LABS: POTASSIUM 4.3 mmol/L (3.5-5.1)
[2017-04-29 14:34] LABS: HEMATOCRIT 30.7 % (37-47); MEAN CELL VOLUME 81.4 fL (80-100); MEAN CORPUSCULAR HEMOGLOBIN 23.1 pg (25-34); MEAN CORPUSCULAR HGB CONC 28.3 g/dl (32-36); MEAN PLATELET VOLUME 8.5 fL (7.4-10.4); PLATELET COUNT 477 K/uL (130-400); RED BLOOD COUNT 3.77 M/uL (4.2-5.4); WHITE BLOOD COUNT 15.22 K/uL (4.8-10.8)
[2017-04-29 14:53] LABS: ANISOCYTOSIS PRESENT; BASO % 0.9 %; BASO ABS # 0.13 K/uL (0-0.2); COMPLETE YES; EOS % 4.5 %; IG% 0.7 %; LYMPH % 10.7 %; LYMPH ABS # 1.63 K/uL (1.2-3.4); NEUT % 68.2 %; POIKILOCYTOSIS PRESENT
[2017-04-29 15:56] LABS: INR 1.5 (0.9-1.1); PARTIAL THROMBOPLASTIN RATIO 1.5; PROTHROMBIN TIME (PATIENT) 16.3 SECONDS (9.0-12.0)
[2017-04-29] MEDS ORDERED: GLUCAGON FOR INJ 1 MG VIAL SQ PRN (16:15)
[2017-04-29] MEDS ORDERED: DEXTROSE 50% 50 ML SYR IV PRN (16:15)
[2017-04-29] MEDS ORDERED: ONDANSETRON INJ 2 MG/ML 2 ML VIAL IV PRN (16:15)
[2017-04-29] MEDS ORDERED: ACETAMINOPHEN 325 MG TAB PO PRN (16:15)
[2017-04-29] MEDS ORDERED: GLUCOSE 40% GEL 15 GM TUBE PO PRN (16:15)
[2017-04-29] MEDS ORDERED: GLUCOSE 10 TABS/TUBE PO PRN (16:15)
[2017-04-29] MEDS ORDERED: IV FLUIDS COMPLETED PRN (16:30)
[2017-04-29 16:32] VITALS: Ht 162.6 cm; Wt 110.7 kg
[2017-04-29] MEDS ORDERED: PRT/20 PO (16:33)
[2017-04-29] MEDS ORDERED: GABA1CAP5 PO (16:34)
[2017-04-29 17:11] LABS: HEMATOCRIT 27.8 % (37-47)
[2017-04-29 18:11] VITALS: BP 99/64; PULSE 90; TEMP 36.4; O2SAT 91
--- NOTE | 2017-04-29 18:31 | History and Physical ---
History & Physical Date & Time of Service: Apr 29, 2017 at 16:57 Chief Complaint: Abd Sore/Bleeding Primary Care Physician: Narendra Gonzalez M.D. History of Present Illness This is a 61yo F with a PMH of chronic wounds, Paroxysmal A Fib (on coumadin), DM II, ESRD (requiring dialysis), HTN, COPD and Right-sided CHF who presents with bleeding from a pre-existing wound on L lower abdomen. Patient was using the restroom this morning and noticed a "wet feeling" on L leg. Looked down and noticed wound located in L lower abdomen was "pouring out blood". Ambulance was called. In ED, sutures were placed, wound was packed and bleeding subsisted. Denies any lightheadedness, confusion, CP, SOB or weakness. Patient has a long history of multiple wounds for which she sees [facility]. On Augmentin and Cipro for wounds. Is on coumadin for paroxysmal atrial fibrillation. Has ESRD and receives dialysis on Friday, Friday and Friday. Past Medical/Surgical History Medical Problems: (1) Atrial fibrillation Status: Chronic (2) Chronic respiratory failure with hypoxia Status: Chronic (3) chronic wound Status: Chronic (4) COPD (chronic obstructive pulmonary disease) Status: Chronic (5) Depression Status: Chronic (6) DM type 2 (diabetes mellitus, type 2) Status: Chronic (7) ESRD (end stage renal disease) on dialysis Status: Chronic (8) HLD (hyperlipidemia) Status: Chronic (9) HTN (hypertension) Status: Chronic (10) Hypothyroidism Status: Chronic (11) Neuropathy Status: Chronic (12) Pulmonary HTN Status: Chronic (13) RHF (right heart failure) Status: Chronic Surgical Problems: (1) S/P cholecystectomy Status: Chronic (2) S/P debridement Permanent Comment: 08/30/2016- debridement bilateral lower extremity and buttock wounds Status: Chronic Family History Diabetes mellitus MOTHER FH: brain cancer FATHER FH: heart disease MOTHER Social History Smoking Status: Unknown if Ever Smoked Drug Use: none Marital Status: Housing status: lives with family Occupational Status: disabled Immunizations History of Influenza Vaccine: Yes Influenza Vaccine Date: Jun 19, 2016 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 Allergies Coded Allergies: Bacitracin (Verified Allergy, Intermediate, RASH,ITCH, 04/29/17) Celecoxib (Verified Allergy, Intermediate, RASH TO SULFA DRUGS, 04/29/17) Neomycin (Verified Allergy, Intermediate, RASH,ITCH, 04/29/17) Polymyxin B (Verified Allergy, Intermediate, RASH,ITCH, 04/29/17) Sulfa Antibiotics (Verified Allergy, Intermediate, RASH,HAS TAKEN GLIPIZIDE W/O REACTION, 04/29/17) Tigecycline (Verified Adverse Reaction, Severe, MILD PANCREATITIS, 04/29/17 ) 61 yo F placed on IV tigecycline for wound infection, after 5-6 days developed decreased appetite, had nonspecific abdominal pain from admission and was refusing to lie back for daily abd assessments because of pain in other areas of abdomen. Decreased appetite persisted, also in context of worsening depression and stated apathy, WBC continued to increase, CT chest revealed n/s changes possibly consistent with mild pancreatitis, lipase drawn and elevated, other causes ruled out, clinical pancreatitis on exam. Diruretics/albumin stopped to avoid further rehydration, tigecycline discontinued, continuing supportive care. Codeine (Verified Adverse Reaction, Intermediate, GI UPSET, 04/29/17) Home Medications Scheduled Amoxicillin & Pot Clavulanate (Augmentin 875-125 mg), 1 TAB PO BID Ascorbic Acid (Vitamin C), 500 MG PO BID Aspirin (Aspirin Ec), 81 MG PO DAILY Atorvastatin (Lipitor), 40 MG PO DAILY B-Complex W/ C & Folic Acid (Renal Vitamin 0.8 mg), 1 TAB PO DAILY Calcitriol (Rocaltrol Cap), 0.25 MCG PO UD Cholecalciferol (Vitamin D3), 1 CAP PO DAILY Ciprofloxacin Tab (Cipro), 750 MG PO BID Collagenase (Santyl), 1 APPLN EXT DAILY Cyanocobalamin (Vitamin B-12), 1,000 MCG PO DAILY Docusate Sodium (Colace), 1 CAP PO BID Gabapentin (Neurontin), 400 MG PO BID Home O2 Therapy (Oxygen), 4 LITERS NA CONTINOUS Insulin Aspart (Novolog), Unknown Dose SC AC Insulin Glargine (Lantus Solostar), 30 UNITS SC HS Levothyroxine Sodium (Synthroid), 125 MCG PO DAILY Magnesium Oxide (Mag-Ox), 400 MG PO BID Metoprolol Succ (Toprol Xl) (Toprol-Xl), 25 MG PO DAILY Pantoprazole (Protonix), 20 MG PO DAILY Prednisone (Prednisone), 5 MG PO DAILY Sertraline (Zoloft), 100 MG PO DAILY Tiotropium [place] (Spiriva Handihaler), 1 CAP INH DAILY Warfarin Sod (Coumadin), 2.5 MG PO 3XWK Warfarin Sodium (Coumadin), 5 MG PO 4XWK Scheduled PRN Hydrocodone/Acetaminophen 5MG/325MG ([place] 5MG/325MG), 1 TABLET PO Q6H PRN for Pain Review of Systems Ten systems reviewed and negative except as noted in the HPI. Physical Exam Vital Signs Date Time Temp Pulse Resp B/P (MAP) Pulse Ox O2 Delivery O2 Flow Rate FiO2 04/29/17 15:47 77 20 105/59 96 Nasal Cannula 4.0 04/29/17 14:48 73 16 130/55 100 Room Air 04/29/17 14:00 75 20 117/61 04/29/17 13:11 75 04/29/17 13:10 36.6 77 16 119/61 93 Room Air General Appearance: WD/WN, no apparent distress Head: normocephalic, atraumatic Eyes: normal inspection ENT: normal ENT inspection, hearing grossly normal Neck: supple, thyroid normal, trachea midline Respiratory/Chest: chest non-tender, lungs clear, no respiratory distress, no accessory muscle use, + wheezing Cardiovascular: regular rate, rhythm, no murmur Abdomen/GI: normal bowel sounds Back: normal inspection Extremities/Musculoskelatal: normal inspection, no calf tenderness, + swelling (Chronic LE swelling) Neurologic/Psych: no motor/sensory deficits, alert, normal mood/affect, oriented x 3 Skin: normal color, + pertinent finding (Presence of multiple chronic wounds: LLQ abdominal wound with some serosanginous drainage. Tissue is sloughing with some granulation tissue present. Approximately 9cm x 3 cm x 2 cm. Bandaged wounds on R buttocks, L buttocks, R thigh (with wound vac in place)) Lymphatic: no adenopathy Diagnostics Laboratory Results Results Past 24 Hours Test 04/29/17 12:21 04/29/17 13:02 04/29/17 15:35 04/29/17 16:21 Range/Units White Blood Count 15.22 4.8-10.8 K/uL Red Blood Count 3.77 4.2-5.4 M/uL Hemoglobin 8.7 12.0-16.0 g/dL Hematocrit 30.7 37-47 % Mean Corpuscular Volume 81.4 80-100 fL Mean Corpuscular Hemoglobin 23.1 25-34 pg Mean Corpuscular Hemoglobin Concent 28.3 32-36 g/dl Platelet Count 477 130-400 K/uL Mean Platelet Volume 8.5 7.4-10.4 fL Neutrophils (%) (Auto) 68.2 % Lymphocytes (%) (Auto) 10.7 % Monocytes (%) (Auto) 15.0 % Eosinophils (%) (Auto) 4.5 % Basophils (%) (Auto) 0.9 % Neutrophils # (Auto) 10.38 1.4-6.5 K/uL Lymphocytes # (Auto) 1.63 1.2-3.4 K/uL Monocytes # (Auto) 2.29 0.11-0.59 K/uL Eosinophils # (Auto) 0.69 0-0.5 K/uL Basophils # (Auto) 0.13 0-0.2 K/uL RDW Standard Deviation 62.6 36.4-46.3 fL RDW Coefficient of Variation 21.3 11.5-14.5 % Immature Granulocyte % (Auto) 0.7 % Immature Granulocyte # (Auto) 0.10 0.00-0.02 K/uL Poikilocytosis PRESENT Anisocytosis PRESENT Sodium Level 136 136-145 mmol/L Potassium Level 4.3 3.5-5.1 mmol/L Chloride Level 101 98-107 mmol/L Carbon Dioxide Level 28 21-32 mmol/L Anion Gap 7.0 3-11 mmol/L Blood Urea Nitrogen 30 7-18 mg/dl Creatinine 3.00 0.60-1.20 mg/dl Est Creatinine Clear Calc Drug Dose 23.6 ml/min Estimated GFR () 18.5 Estimated GFR (Non- 16.0 BUN/Creatinine Ratio 10.0 10-20 Random Glucose 116 70-99 mg/dl Calcium Level 9.0 8.5-10.1 mg/dl Total Bilirubin 0.5 0.2-1 mg/dl Direct Bilirubin 0.2 0-0.2 mg/dl Aspartate Amino Transf (AST/SGOT) 37 15-37 U/L Alanine Aminotransferase (ALT/SGPT) 39 12-78 U/L Alkaline Phosphatase 214 45-117 U/L Total Protein 6.7 6.4-8.2 gm/dl Albumin 2.2 3.4-5.0 gm/dl Bedside Prothrombin Time INR 1.7 0.9-1.1 Prothrombin Time 16.3 9.0-12.0 SECONDS Prothromb Time International Ratio 1.5 0.9-1.1 Activated Partial Thromboplast Time 39.7 21.0-31.0 SECONDS Partial Thromboplastin Ratio 1.5 Impression Assessment and Plan This is a 61yo F with a PMH of chronic wounds, Paroxysmal A Fib (on coumadin), DM II, ESRD (requiring dialysis), HTN and COPD who presents with bleeding from a pre-existing wound on L lower abdomen. Wound on Lower Left Abdomen: -Bleeding has subsided with sutures; bandage in place Hgb of 8.7, which is slightly less than baseline (~9.5) -Wound care consulted -Repeat H&H Q6 hours -Can transfuse during dialysis tomorrow if indicated Chronic wounds: -Continue Cipro and Augmentin -Wound care to re-dress in AM -All wounds visualized and re-bandaged Paroxysmal A Fib: - Rate controlled on beta reyes, will continue - On Coumadin, subtherapeutic INR of 1.5 - Hold Coumadin and follow up INR tomorrow ESRD (on dialysis): -M W F -Continue renal vitamins -Consulted nephrology COPD: -Stable. Denies dyspnea, SOB, wheezing -Continue home inhalers -O2 PRN by protocol DM II: - Hgb a1c of 8.1 on 12/2016 - Held home meds - Continue basal / SSI while in-patient - BG checks AC and qHS Hypothyroidism: - Continue Levothyroxine DVT Ppx: on coumadin Code status: FULL PCP: Carlos Dispo: Plan to return home once medically stable. Daughter coordinates medical care. ADDENDUM: patient presented due to bleeding from abdominal wounds saw the patient in room 261 wound has since been sutured - bleeding has stopped - wound care consulted due to patient on Coumadin; will be observed overnight here ESRD - will get HD tomorrow (04/30) - nephrology consulted likely d/c home in AM Level of Care Med/Surg Resuscitation Status FULL RESUSCITATION VTE Prophylaxis VTE Risk Assessment Done? Y/N: Yes Risk Level: Moderate Given or contraindicated: Warfarin (Coumadin)
[2017-04-29] MEDS: INSULIN ASPART 100 UNITS/ML 3 ML PEN SC SCH (21:00)
[2017-04-29] MEDS: HYDROCODONE/ACETAMOPHEN 5/325MG TAB PO PRN (21:43)
[2017-04-29] MEDS: CIPROFLOXACIN 250 MG TAB PO SCH (21:44)
[2017-04-29] MEDS: AMOXICILLIN/CLAVULANATE TAB 875 MG TAB PO SCH (21:44)
[2017-04-29] MEDS: MAGNESIUM OXIDE 400 MG TAB PO SCH (21:45)
[2017-04-29] MEDS: DOCUSATE SODIUM 100 MG CAP PO SCH (21:45)
[2017-04-29] MEDS: ASCORBIC ACID 500 MG TAB PO SCH (21:46)
[2017-04-29] MEDS: GABAPENTIN 400 MG CAP PO SCH (21:47)
[2017-04-29] MEDS: INSULIN GLARGINE SOLOSTAR 100 UNITS/ML 3 ML PEN SC SCH (22:01)
[2017-04-29 22:35] LABS: HEMATOCRIT 26.3 % (37-47)
[2017-04-30] VITALS: O2SAT 100
[2017-04-30 00:18] VITALS: BP 105/68; PULSE 88; TEMP 37.7; O2SAT 92
[2017-04-30 04:14] LABS: HEMATOCRIT 25.4 % (37-47)
[2017-04-30 04:23] LABS: INR 1.5 (0.9-1.1); PROTHROMBIN TIME (PATIENT) 16.2 SECONDS (9.0-12.0)
[2017-04-30 04:36] LABS: BUN/CREATININE RATIO 11.5 (10-20); CALCIUM 8.6 mg/dl (8.5-10.1); CREATININE 3.2 mg/dl (0.60-1.20); POTASSIUM 4.8 mmol/L (3.5-5.1)
[2017-04-30] MEDS: LEVOTHYROXINE 125 MCG TAB PO SCH (06:00)
--- NOTE | 2017-04-30 06:29 | Progress Note ---
Internal Med Progress Note Date of Service: Apr 30, 2017. Provider Documentation: Made aware by our and off decreasing H&H overnight. No overt bleeding. Hold home aspirin for now. We relay to a.m. provider. Vital Signs: Date Time Temp Pulse Resp B/P (MAP) Pulse Ox O2 Delivery O2 Flow Rate FiO2 04/30/17 08:00 Nasal Cannula 4.0 04/30/17 07:15 36.8 96 18 102/65 (77) 95 04/30/17 00:18 37.7 88 20 105/68 (80) 92 Nasal Cannula 4.0 04/30/17 00:00 100 Nasal Cannula 4.0 04/29/17 18:11 36.4 90 18 99/64 (76) 91 Nasal Cannula 4.0 04/29/17 18:00 Nasal Cannula 4.0 04/29/17 17:30 89 22 115/49 100 04/29/17 16:32 Nasal Cannula 4.0 04/29/17 15:47 77 20 105/59 96 Nasal Cannula 4.0 04/29/17 14:48 73 16 130/55 100 Room Air 04/29/17 14:00 75 20 117/61 04/29/17 13:11 75 04/29/17 13:10 36.6 77 16 119/61 93 Room Air Lab Results: Results Past 24 Hours Test 04/29/17 13:02 04/29/17 15:35 04/29/17 17:04 04/29/17 20:20 Range/Units Bedside Prothrombin Time INR 1.7 0.9-1.1 Prothrombin Time 16.3 9.0-12.0 SECONDS Prothromb Time International Ratio 1.5 0.9-1.1 Activated Partial Thromboplast Time 39.7 21.0-31.0 SECONDS Partial Thromboplastin Ratio 1.5 Hemoglobin 8.2 12.0-16.0 g/dL Hematocrit 27.8 37-47 % Bedside Glucose 156 70-90 mg/dl Test 04/29/17 22:28 04/30/17 04:02 04/30/17 08:12 04/30/17 09:31 Range/Units Hemoglobin 7.9 7.4 7.8 12.0-16.0 g/dL Hematocrit 26.3 25.4 27.4 37-47 % Prothrombin Time 16.2 9.0-12.0 SECONDS Prothromb Time International Ratio 1.5 0.9-1.1 Sodium Level 138 136-145 mmol/L Potassium Level 4.8 3.5-5.1 mmol/L Chloride Level 105 98-107 mmol/L Carbon Dioxide Level 30 21-32 mmol/L Anion Gap 3.0 3-11 mmol/L Blood Urea Nitrogen 37 7-18 mg/dl Creatinine 3.20 0.60-1.20 mg/dl Est Creatinine Clear Calc Drug Dose 22.1 ml/min Estimated GFR () 17.1 Estimated GFR (Non- 14.8 BUN/Creatinine Ratio 11.5 10-20 Random Glucose 98 70-99 mg/dl Calcium Level 8.6 8.5-10.1 mg/dl Bedside Glucose 112 70-90 mg/dl White Blood Count 15.09 4.8-10.8 K/uL Red Blood Count 3.39 4.2-5.4 M/uL Mean Corpuscular Volume 80.8 80-100 fL Mean Corpuscular Hemoglobin 23.0 25-34 pg Mean Corpuscular Hemoglobin Concent 28.5 32-36 g/dl RDW Standard Deviation 61.2 36.4-46.3 fL RDW Coefficient of Variation 20.9 11.5-14.5 % Platelet Count 391 130-400 K/uL Mean Platelet Volume 8.4 7.4-10.4 fL Test 04/30/17 11:17 04/30/17 11:34 Range/Units Hepatitis B Surface Antigen NEG NEG Hepatitis B Surface Antibody NEG Bedside Glucose 140 70-90 mg/dl
[2017-04-30 07:15] VITALS: BP 102/65; PULSE 96; TEMP 36.8; O2SAT 95
[2017-04-30] MEDS: TIOTROPIUM BROMIDE 5 PUFF/90 MCG INH INH SCH (08:08)
[2017-04-30] MEDS: CALCITRIOL 0.25 MCG CAP PO SCH (08:09)
[2017-04-30] MEDS: METOPROLOL SUCC 25MG EXT REL TAB PO SCH (08:09)
[2017-04-30] MEDS: COLLAGENASE OINT 30 GM TUBE EXT SCH (08:09)
[2017-04-30] MEDS: ASCORBIC ACID 500 MG TAB PO SCH ×2 (08:09→21:40)
[2017-04-30] MEDS: DOCUSATE SODIUM 100 MG CAP PO SCH ×2 (08:09→21:41)
[2017-04-30] MEDS: VITAMIN B COMPLEX TAB PO SCH (08:09)
[2017-04-30] MEDS: MAGNESIUM OXIDE 400 MG TAB PO SCH ×2 (08:09→21:40)
[2017-04-30] MEDS: CIPROFLOXACIN 250 MG TAB PO SCH ×2 (08:09→21:39)
[2017-04-30] MEDS: GABAPENTIN 400 MG CAP PO SCH ×2 (08:10→21:41)
[2017-04-30] MEDS: CYANOCOBALAMIN 500 MCG TAB (VIT B-12) PO SCH (08:10)
[2017-04-30] MEDS: CHOLECALCIFEROL 1000 INTER.UNIT TAB PO SCH (08:10)
[2017-04-30] MEDS: ATORVASTATIN 40 MG TAB PO SCH (08:10)
[2017-04-30] MEDS: SERTRALINE HCL 100 MG TAB PO SCH (08:10)
[2017-04-30] MEDS: AMOXICILLIN/CLAVULANATE TAB 875 MG TAB PO SCH (08:10)
[2017-04-30] MEDS: PANTOprazole SOD 40 MG TAB PO SCH (08:11)
[2017-04-30] MEDS: INSULIN ASPART 100 UNITS/ML 3 ML PEN SC SCH ×4 (08:15→21:49)
[2017-04-30] MEDS: INSULIN GLARGINE SOLOSTAR 100 UNITS/ML 3 ML PEN SC SCH ×2 (08:16→21:49)
[2017-04-30] MEDS ORDERED: EPOETIN ALFA 10,000 UNITS/ML VIAL IV. SCH (09:00)
[2017-04-30] MEDS ORDERED: ASPIRIN 81 MG ECTAB PO SCH (09:00)
[2017-04-30] MEDS ORDERED: ALBUMIN HUMAN 25% 12.5 GM/50 ML VIAL IV SCH (09:00)
--- NOTE | 2017-04-30 10:16 | NEPHROLOGY CONSULTATION ---
DATE OF CONSULTATION: 04/30/2017 ATTENDING OF RECORD: Dr. Malcolm. REASON FOR CONSULTATION: End-stage renal disease. HISTORY OF PRESENT ILLNESS: This is a 61-year-old female who dialyzes at the [facility] on Mondays, Wednesdays, and Fridays. The patient is with significant right-sided heart failure and has diuresed about 100 pounds over the past year. She continues to have a significantly large pannus and the patient periodically complains about edema in her pannus, although dealing with chronically low blood pressures as well. The patient is with underlying hypertension, COPD, diabetes, and paroxysmal atrial fibrillation on Coumadin. The patient is also with chronic wound infection and has a wound VAC on chcf as well as chronic antibiotics of Augmentin and Cipro. The patient was going to the dentist yesterday and a previous wound on her left side opened up and started bleeding heavily. The patient came in to the Emergency Room and wound was stitched up. The patient is currently comfortable at this time and being evaluated by wound care. PAST MEDICAL HISTORY: AFib, end-stage renal disease, COPD, right-sided heart failure, diabetes, dialysis, hyperlipidemia, hypertension, and hypothyroidism. PAST SURGICAL HISTORY: Bilateral lower extremity debridement, requiring bilateral wound VACs at one point, history cholecystectomy, and dialysis access placement. FAMILY HISTORY: Significant for diabetes. SOCIAL HISTORY: No smoking, no alcohol, and no drugs. and lives with family. CURRENT MEDICATIONS: Lipitor 40 mg daily; calcitriol 0.25 mcg on Mondays, Wednesdays, and Fridays; vitamin B12 at 1000 mcg daily; Toprol-XL 25 mg daily; prednisone 5 mg daily; Zoloft 100 mg daily; Spiriva 1 puff inhaler daily; vitamin B complex daily; vitamin D 2000 units daily; Protonix 40 mg daily; levothyroxine 125 mcg daily; Lantus 10 units subQ q. 12 hours; Augmentin 875 p.o. b.i.d.; vitamin C 500 mg b.i.d.; Cipro 750 b.i.d.; Colace 100 b.i.d.; Neurontin 400 b.i.d.; and mag 400 b.i.d. REVIEW OF SYSTEMS: No fevers or chills. Significant weight loss on dialysis. No lightheadedness. No chest pain. Positive shortness of breath with exertion. Positive edema. Positive chronic wounds. Good appetite. No diarrhea or constipation. No dysuria. All other review of systems otherwise negative. PHYSICAL EXAMINATION: VITAL SIGNS: Temperature 36.8, pulse 96, respiratory rate 18, blood pressure 102/65, and satting 95% on 4 liters. GENERAL: Awake, alert, and oriented x3, morbidly obese. EYES: No scleral icterus. ENT: Moist mucous membranes. NECK: Supple. PULMONARY: Clear to auscultation. CARDIAC: Regular rate and rhythm. ABDOMEN: Large pannus with a chronic wound on the right side, requiring a wound VAC and now new open wound that was recently bleeding. Bowel sounds positive. Soft. Pannus does have pitting edema. EXTREMITIES: +2 to 3 pitting edema in the lower extremities. DERMATOLOGIC: She does have a neuropathic pain down both legs. Difficult for her to walk. Uses a walker. LABORATORIES: Sodium level is 138, potassium 4.8, chloride is 105, bicarbonate 30, BUN is 37, creatinine 3.2, glucose 112, and calcium is 8.6. Her hemoglobin is 7.4. INR is 1.5. ASSESSMENT AND PLAN: End-stage renal disease, dialyzes on Mondays, Wednesdays and Fridays. Today is her regular dialysis day. We will plan on 3-hour treatment, 2K bath with albumin to help maximize fluid removal as we continue to be aggressive with fluid removal and help with her pitting edema in the lower extremities as well as edema in her pannus. Overall, much improved compared to when she started dialysis and continue to challenge her dry weight as blood pressure tolerates. Systolics tend to be in the 90s-80s on dialysis and tends to be relatively asymptomatic while on dialysis. I appreciate the consultation. JUAN ANTONIO
[2017-04-30 10:21] LABS: HEMATOCRIT 27.4 % (37-47); MEAN CELL VOLUME 80.8 fL (80-100); MEAN CORPUSCULAR HGB CONC 28.5 g/dl (32-36); MEAN PLATELET VOLUME 8.4 fL (7.4-10.4); PLATELET COUNT 391 K/uL (130-400); RED BLOOD COUNT 3.39 M/uL (4.2-5.4); WHITE BLOOD COUNT 15.09 K/uL (4.8-10.8)
[2017-04-30 12:04] LABS: HEPATITIS B AB NEG
--- NOTE | 2017-04-30 12:13 | Progress Note ---
Medicine Progress Note Date & Time of Visit: Apr 30, 2017 at 12:07. (Alice Alvarez, P.A.-C.) Subjective Patient seen and examined. Resting comfortably in chair. Patient has not noticed any drainage from abdominal wound. Denies lightheadedness, palpitations CP or SOB. Denies fever, chills, cough or dysuria. (Alice Alvarez, P.A.-C.) Objective Last 8 Hrs Date Time Temp Pulse Resp B/P (MAP) Pulse Ox O2 Delivery O2 Flow Rate FiO2 04/30/17 08:00 Nasal Cannula 4.0 04/30/17 07:15 36.8 96 18 102/65 (17) 95 Physical Exam: General Appearance: WD/WN, no apparent distress Head: normocephalic, atraumatic Eyes: normal inspection ENT: normal ENT inspection, hearing grossly normal Neck: supple, thyroid normal, trachea midline Respiratory/Chest: chest non-tender, lungs clear, no respiratory distress, no accessory muscle use, + wheezing Cardiovascular: regular rate, rhythm, no murmur Abdomen/GI: normal bowel sounds Back: normal inspection Extremities/Musculoskelatal: normal inspection, no calf tenderness, + swelling (Chronic LE swelling) Neurologic/Psych: no motor/sensory deficits, alert, normal mood/affect, oriented x 3 Skin: normal color. Presence of multiple chronic wounds: LLQ abdominal wound without drainage. Tissue is sloughing with some granulation tissue present. Approximately 9cm x 3 cm x 2 cm. Bandaged wounds on R buttocks, L buttocks, R thigh (with wound vac in place)) Lymphatic: no adenopathy Laboratory Results: Last 24 Hours Test 04/29/17 12:21 04/29/17 13:02 04/29/17 15:35 04/29/17 17:04 White Blood Count 15.22 K/uL Red Blood Count 3.77 M/uL Hemoglobin 8.7 g/dL 8.2 g/dL Hematocrit 30.7 % 27.8 % Mean Corpuscular Volume 81.4 fL Mean Corpuscular Hemoglobin 23.1 pg Mean Corpuscular Hemoglobin Concent 28.3 g/dl Platelet Count 477 K/uL Mean Platelet Volume 8.5 fL Neutrophils (%) (Auto) 68.2 % Lymphocytes (%) (Auto) 10.7 % Monocytes (%) (Auto) 15.0 % Eosinophils (%) (Auto) 4.5 % Basophils (%) (Auto) 0.9 % Neutrophils # (Auto) 10.38 K/uL Lymphocytes # (Auto) 1.63 K/uL Monocytes # (Auto) 2.29 K/uL Eosinophils # (Auto) 0.69 K/uL Basophils # (Auto) 0.13 K/uL RDW Standard Deviation 62.6 fL RDW Coefficient of Variation 21.3 % Immature Granulocyte % (Auto) 0.7 % Immature Granulocyte # (Auto) 0.10 K/uL Poikilocytosis PRESENT Anisocytosis PRESENT Sodium Level 136 mmol/L Potassium Level 4.3 mmol/L Chloride Level 101 mmol/L Carbon Dioxide Level 28 mmol/L Anion Gap 7.0 mmol/L Blood Urea Nitrogen 30 mg/dl Creatinine 3.00 mg/dl Est Creatinine Clear Calc Drug Dose 23.6 ml/min Estimated GFR () 18.5 Estimated GFR (Non- 16.0 BUN/Creatinine Ratio 10.0 Random Glucose 116 mg/dl Calcium Level 9.0 mg/dl Total Bilirubin 0.5 mg/dl Direct Bilirubin 0.2 mg/dl Aspartate Amino Transf (AST/SGOT) 37 U/L Alanine Aminotransferase (ALT/SGPT) 39 U/L Alkaline Phosphatase 214 U/L Total Protein 6.7 gm/dl Albumin 2.2 gm/dl Bedside Prothrombin Time INR 1.7 Prothrombin Time 16.3 SECONDS Prothromb Time International Ratio 1.5 Activated Partial Thromboplast Time 39.7 SECONDS Partial Thromboplastin Ratio 1.5 Test 04/29/17 20:20 04/29/17 22:28 04/30/17 04:02 04/30/17 08:12 Bedside Glucose 156 mg/dl 112 mg/dl Hemoglobin 7.9 g/dL 7.4 g/dL Hematocrit 26.3 % 25.4 % Prothrombin Time 16.2 SECONDS Prothromb Time International Ratio 1.5 Sodium Level 138 mmol/L Potassium Level 4.8 mmol/L Chloride Level 105 mmol/L Carbon Dioxide Level 30 mmol/L Anion Gap 3.0 mmol/L Blood Urea Nitrogen 37 mg/dl Creatinine 3.20 mg/dl Est Creatinine Clear Calc Drug Dose 22.1 ml/min Estimated GFR () 17.1 Estimated GFR (Non- 14.8 BUN/Creatinine Ratio 11.5 Random Glucose 98 mg/dl Calcium Level 8.6 mg/dl Test 04/30/17 09:31 04/30/17 11:17 04/30/17 11:34 White Blood Count 15.09 K/uL Red Blood Count 3.39 M/uL Hemoglobin 7.8 g/dL Hematocrit 27.4 % Mean Corpuscular Volume 80.8 fL Mean Corpuscular Hemoglobin 23.0 pg Mean Corpuscular Hemoglobin Concent 28.5 g/dl RDW Standard Deviation 61.2 fL RDW Coefficient of Variation 20.9 % Platelet Count 391 K/uL Mean Platelet Volume 8.4 fL Hepatitis B Surface Antibody NEG Bedside Glucose 140 mg/dl (Alice Alvarez, P.A.-C.) Assessment & Plan This is a 61yo F with a PMH of chronic wounds, Paroxysmal A Fib (on coumadin), DM II, ESRD (requiring dialysis), HTN and COPD who presents with bleeding from a pre-existing wound on L lower abdomen. Acute blood loss Anemia 2/2 wound on lower left abdomen: -Bleeding has subsided with sutures; bandage in place -Hgb decreased to 7.4 (from 8.7 yesterday) -Discussed with nephrology. Will transfuse 2 units prbcs during dialysis today -Wound care following -Repeat H&H Q6 hours Chronic wounds: -Continue Cipro and Augmentin -Wound care to re-dress in AM Paroxysmal A Fib: - Rate controlled on beta reyes, will continue - On Coumadin, subtherapeutic INR of 1.5 - Hold Coumadin and follow up INR tomorrow ESRD (on dialysis): -M W F -Continue renal vitamins -Nephrology on board. Will receive dialysis today. COPD: -Stable. Denies dyspnea, SOB, wheezing -Continue home inhalers -O2 PRN by protocol DM II: - Hgb a1c of 8.1 on 12/2016 - Held home meds - Continue basal / SSI while in-patient - BG checks AC and qHS Hypothyroidism: - Continue Levothyroxine DVT Ppx: on coumadin Code status: FULL PCP: Carlos Dispo: Plan to return home once medically stable. Daughter coordinates medical care. Current Inpatient Medications: Current Inpatient Medications Medications (Trade) Dose Ordered Sig/Tyrone Route Start Time Stop Time Status Last Admin Dose Admin Acetaminophen (Tylenol Tab) 650 mg Q4H PRN PO 04/29/17 16:15 05/29/17 16:14 Ondansetron HCl (Zofran Inj) 4 mg Q6H PRN IV 04/29/17 16:15 05/29/17 16:14 Insulin Glargine (Lantus Solostar Pen) 10 units Q12 SC 04/29/17 21:00 05/29/17 20:59 04/30/17 08:16 10 UNITS Insulin Aspart (novoLOG ASPART) SLIDING SCALE If C... ACHS SC 04/29/17 21:00 05/29/17 20:59 04/30/17 08:15 3 UNITS Glucose (Glucose 40% Gel) 15-30 GRAMS 15 GRAMS... UD PRN PO 04/29/17 16:15 05/29/17 16:14 Glucose (Glucose Chew Tab) 4-8 Tablets 4 Tabl... UD PRN PO 04/29/17 16:15 05/29/17 16:14 Dextrose (Dextrose 50% 50ML Syringe) 25-50ML OF 50% DW IV FOR... UD PRN IV 04/29/17 16:15 05/29/17 16:14 Glucagon (Glucagon Inj) 1 mg UD PRN SQ 04/29/17 16:15 05/29/17 16:14 Miscellaneous (Iv Fluids Completed) 1 ea PRN PRN N/A 04/29/17 16:30 04/29/18 16:29 Amoxicillin/ Clavulanate Potassium (Augmentin Tab) 875 mg BID PO 04/29/17 21:00 05/09/17 20:59 04/30/17 08:10 875 MG Ascorbic Acid (Vitamin C Tab) 500 mg BID PO 04/29/17 21:00 05/29/17 20:59 04/30/17 08:09 500 MG Atorvastatin Calcium (Lipitor Tab) 40 mg DAILY PO 04/30/17 09:00 05/30/17 08:59 04/30/17 08:10 40 MG Calcitriol (Rocaltrol Cap) 0.25 mcg MoWeFr@0900 PO 04/30/17 09:00 05/30/17 08:59 04/30/17 08:09 0.25 MCG Ciprofloxacin (Ciprofloxacin Tab) 750 mg BID PO 04/29/17 21:00 05/09/17 20:59 04/30/17 08:09 750 MG Collagenase (Santyl Oint) 1 appln DAILY EXT 04/30/17 09:00 05/30/17 08:59 04/30/17 08:09 1 APPLN Cyanocobalamin (Vitamin B-12 Tab) 1,000 mcg DAILY PO 04/30/17 09:00 05/30/17 08:59 04/30/17 08:10 1,000 MCG Docusate Sodium (coLACE CAP) 100 mg BID PO 04/29/17 21:00 05/29/17 20:59 04/30/17 08:09 100 MG Gabapentin (Neurontin Cap) 400 mg BID PO 04/29/17 21:00 05/29/17 20:59 04/30/17 08:10 400 MG Acetaminophen/ Hydrocodone Bitart ([place] 5/325 Tab) 1 tab Q6H PRN PO 04/29/17 16:30 05/13/17 16:29 04/29/17 21:43 1 TAB Levothyroxine Sodium (Synthroid Tab) 125 mcg DAILYBB PO 04/30/17 06:30 05/30/17 06:59 04/30/17 06:00 125 MCG Magnesium Oxide (Mag-Ox Tab) 400 mg BID PO 04/29/17 21:00 05/29/17 20:59 04/30/17 08:09 400 MG Metoprolol Succinate (Toprol Xl Tab) 25 mg DAILY PO 04/30/17 09:00 05/30/17 08:59 04/30/17 08:09 25 MG Prednisone (PredniSONE TAB) 5 mg DAILY PO 04/30/17 09:00 05/30/17 08:59 04/30/17 08:10 5 MG Sertraline HCl (Zoloft Tab) 100 mg DAILY PO 04/30/17 09:00 05/30/17 08:59 04/30/17 08:10 100 MG Tiotropium [place] (Spiriva Handihaler Inhaler) 1 puff DAILY INH 04/30/17 09:00 05/30/17 08:59 04/30/17 08:08 1 PUFF Vitamin B Complex (Vitamin B Complex) 1 tab DAILY PO 04/30/17 09:00 05/30/17 08:59 04/30/17 08:09 1 TAB Cholecalciferol (Vitamin D Tab) 2,000 inter.unit DAILY PO 04/30/17 09:00 05/30/17 08:59 04/30/17 08:10 2,000 INTER.UNIT Pantoprazole Sodium (Protonix Tab) 40 mg QAM PO 04/30/17 09:00 05/30/17 08:59 04/30/17 08:11 40 MG Epoetin Faisal (Procrit Inj) 10,000 units TODAY@0900 IV. 04/30/17 09:00 04/30/17 18:00 Albumin Human (Albumin 25%) 12.5 gm TODAY@0900,1000 IV 04/30/17 09:00 04/30/17 18:00 (Alice Alvarez, P.A.-C.) Saw/examined the patient in room 261; she's doing well No complaints, currently eating lunch Agreeable for transfusion Hgb dropped to 7.4, will transfuse two units with dialysis today, nephrology aware will consult wound care physician, Dr. Mejía; regarding abdominal wounds; continue Cipro + Augmentin for now (Vero Malcolm, DO)
[2017-04-30 14:58] VITALS: BP 94/59; PULSE 63; TEMP 36.7; O2SAT 91
[2017-04-30] MEDS: HYDROCODONE/ACETAMOPHEN 5/325MG TAB PO PRN (16:53)
[2017-04-30] MEDS: AMOXICILLIN/CLAVULANATE TAB 500 MG TAB PO SCH (21:38)
[2017-04-30] MEDS: BOOST VANILLA PUDDING CUP PO SCH (21:42)
[2017-04-30 23:29] VITALS: BP 98/64; PULSE 78; TEMP 36.9; O2SAT 98
[2017-05-01] VITALS (19 sets, daily range): BP systolic 98–139; BP diastolic 40–82; PULSE 69–79; TEMP 36.4–36.7; O2SAT 93–98
[2017-05-01] MEDS: LEVOTHYROXINE 125 MCG TAB PO SCH (05:34)
[2017-05-01] MEDS: HYDROCODONE/ACETAMOPHEN 5/325MG TAB PO PRN ×3 (05:35→22:12)
[2017-05-01] MEDS: INSULIN ASPART 100 UNITS/ML 3 ML PEN SC SCH ×4 (06:30→20:29)
--- NOTE | 2017-05-01 07:04 | Nephrology Progress Note ---
Nephrology Progress Note Date of Service: May 01, 2017. Subjective 61 yo female with esrd who presented with bleeding of her wound on her pannus and required stitches to stop the bleeding. pts hg levels were trending down and went for dialysis with blood transfusion and dialysis catheter did not work. currently npo for possible tunneled line exchange. pt comfortable oob to chair. Objective Date Time Temp Pulse Resp B/P (MAP) Pulse Ox O2 Delivery O2 Flow Rate FiO2 05/01/17 06:16 4.0 05/01/17 00:00 Nasal Cannula 4.0 04/30/17 23:29 36.9 78 18 98/64 (75) 98 Nasal Cannula 4.0 04/30/17 16:00 Nasal Cannula 4.0 04/30/17 14:58 36.7 63 20 94/59 (71) 91 Nasal Cannula 2.0 04/30/17 08:00 Nasal Cannula 4.0 04/30/17 07:15 36.8 96 18 102/65 (77) 95 Physical Exam: General-aaox3, obese Eyes-no scleral icterus ENT-mmm Neck-supple Lungs-cta Heart-distant heart sounds Abdomen-+wound bandaged up, other wound with wound vac in place Extremities-+2 non-pitting edema Neuro-nonfocal Current Inpatient Medications Medications (Trade) Dose Ordered Sig/Tyrone Route Start Time Stop Time Status Last Admin Dose Admin Acetaminophen (Tylenol Tab) 650 mg Q4H PRN PO 04/29/17 16:15 05/29/17 16:14 Ondansetron HCl (Zofran Inj) 4 mg Q6H PRN IV 04/29/17 16:15 05/29/17 16:14 Insulin Glargine (Lantus Solostar Pen) 10 units Q12 SC 04/29/17 21:00 05/29/17 20:59 04/30/17 21:49 10 UNITS Insulin Aspart (novoLOG ASPART) SLIDING SCALE If C... ACHS SC 04/29/17 21:00 05/29/17 20:59 04/30/17 21:49 1 UNITS Glucose (Glucose 40% Gel) 15-30 GRAMS 15 GRAMS... UD PRN PO 04/29/17 16:15 05/29/17 16:14 Glucose (Glucose Chew Tab) 4-8 Tablets 4 Tabl... UD PRN PO 04/29/17 16:15 05/29/17 16:14 Dextrose (Dextrose 50% 50ML Syringe) 25-50ML OF 50% DW IV FOR... UD PRN IV 04/29/17 16:15 05/29/17 16:14 Glucagon (Glucagon Inj) 1 mg UD PRN SQ 04/29/17 16:15 05/29/17 16:14 Miscellaneous (Iv Fluids Completed) 1 ea PRN PRN N/A 04/29/17 16:30 04/29/18 16:29 Ascorbic Acid (Vitamin C Tab) 500 mg BID PO 04/29/17 21:00 05/29/17 20:59 04/30/17 21:40 500 MG Atorvastatin Calcium (Lipitor Tab) 40 mg DAILY PO 04/30/17 09:00 05/30/17 08:59 04/30/17 08:10 40 MG Calcitriol (Rocaltrol Cap) 0.25 mcg MoWeFr@0900 PO 04/30/17 09:00 05/30/17 08:59 04/30/17 08:09 0.25 MCG Collagenase (Santyl Oint) 1 appln DAILY EXT 04/30/17 09:00 05/30/17 08:59 04/30/17 08:09 1 APPLN Cyanocobalamin (Vitamin B-12 Tab) 1,000 mcg DAILY PO 04/30/17 09:00 05/30/17 08:59 04/30/17 08:10 1,000 MCG Docusate Sodium (coLACE CAP) 100 mg BID PO 04/29/17 21:00 05/29/17 20:59 04/30/17 21:41 100 MG Gabapentin (Neurontin Cap) 400 mg BID PO 04/29/17 21:00 05/29/17 20:59 04/30/17 21:41 400 MG Acetaminophen/ Hydrocodone Bitart ([place] 5/325 Tab) 1 tab Q6H PRN PO 04/29/17 16:30 05/13/17 16:29 05/01/17 05:35 1 TAB Levothyroxine Sodium (Synthroid Tab) 125 mcg DAILYBB PO 04/30/17 06:30 05/30/17 06:59 05/01/17 05:34 125 MCG Magnesium Oxide (Mag-Ox Tab) 400 mg BID PO 04/29/17 21:00 05/29/17 20:59 04/30/17 21:40 400 MG Metoprolol Succinate (Toprol Xl Tab) 25 mg DAILY PO 04/30/17 09:00 05/30/17 08:59 04/30/17 08:09 25 MG Prednisone (PredniSONE TAB) 5 mg DAILY PO 04/30/17 09:00 05/30/17 08:59 04/30/17 08:10 5 MG Sertraline HCl (Zoloft Tab) 100 mg DAILY PO 04/30/17 09:00 05/30/17 08:59 04/30/17 08:10 100 MG Tiotropium [place] (Spiriva Handihaler Inhaler) 1 puff DAILY INH 04/30/17 09:00 05/30/17 08:59 04/30/17 08:08 1 PUFF Vitamin B Complex (Vitamin B Complex) 1 tab DAILY PO 04/30/17 09:00 05/30/17 08:59 04/30/17 08:09 1 TAB Cholecalciferol (Vitamin D Tab) 2,000 inter.unit DAILY PO 04/30/17 09:00 05/30/17 08:59 04/30/17 08:10 2,000 INTER.UNIT Pantoprazole Sodium (Protonix Tab) 40 mg QAM PO 04/30/17 09:00 05/30/17 08:59 04/30/17 08:11 40 MG Enteral Nutritional Formula (Boost Pudding) 1 cup BID PO 04/30/17 21:00 05/30/17 20:59 Amoxicillin/ Clavulanate Potassium (Augmentin Tab) 500 mg HS PO 04/30/17 21:00 05/09/17 20:59 04/30/17 21:38 500 MG Ciprofloxacin (Ciprofloxacin Tab) 750 mg HS PO 04/30/17 21:00 05/09/17 20:59 04/30/17 21:39 750 MG Last 24 Hours Test 04/30/17 08:12 04/30/17 09:31 04/30/17 11:17 04/30/17 11:34 Bedside Glucose 112 mg/dl 140 mg/dl White Blood Count 15.09 K/uL Red Blood Count 3.39 M/uL Hemoglobin 7.8 g/dL Hematocrit 27.4 % Mean Corpuscular Volume 80.8 fL Mean Corpuscular Hemoglobin 23.0 pg Mean Corpuscular Hemoglobin Concent 28.5 g/dl RDW Standard Deviation 61.2 fL RDW Coefficient of Variation 20.9 % Platelet Count 391 K/uL Mean Platelet Volume 8.4 fL Hepatitis B Surface Antigen NEG Hepatitis B Surface Antibody NEG Test 04/30/17 16:42 04/30/17 20:14 05/01/17 04:44 Bedside Glucose 116 mg/dl 118 mg/dl Assessment & Plan ESRD-pt with tunneled line. unable to work at this time. hoping to exchange line today by Dr. Falk. on coumadin with last inr of 1.5. currently npo p mn. plan on dialysis today after line placement.
[2017-05-01] MEDS ORDERED: ALBUMIN HUMAN 25% 12.5 GM/50 ML VIAL IV SCH (07:15)
[2017-05-01] MEDS ORDERED: EPOETIN ALFA 10,000 UNITS/ML VIAL IV. SCH (07:15)
[2017-05-01] MEDS: COLLAGENASE OINT 30 GM TUBE EXT SCH (07:53)
[2017-05-01] MEDS: METOPROLOL SUCC 25MG EXT REL TAB PO SCH (07:54)
[2017-05-01] MEDS: BOOST VANILLA PUDDING CUP PO SCH ×2 (07:54→20:26)
[2017-05-01] MEDS: ASCORBIC ACID 500 MG TAB PO SCH ×2 (07:56→20:27)
[2017-05-01] MEDS: VITAMIN B COMPLEX TAB PO SCH (07:56)
[2017-05-01] MEDS: MAGNESIUM OXIDE 400 MG TAB PO SCH ×2 (07:56→20:25)
[2017-05-01] MEDS: CYANOCOBALAMIN 500 MCG TAB (VIT B-12) PO SCH (07:56)
[2017-05-01] MEDS: GABAPENTIN 400 MG CAP PO SCH ×2 (07:56→20:27)
[2017-05-01] MEDS: ATORVASTATIN 40 MG TAB PO SCH (07:56)
[2017-05-01] MEDS: PANTOprazole SOD 40 MG TAB PO SCH (07:56)
[2017-05-01] MEDS: DOCUSATE SODIUM 100 MG CAP PO SCH ×2 (07:56→20:24)
[2017-05-01] MEDS: SERTRALINE HCL 100 MG TAB PO SCH (07:57)
[2017-05-01] MEDS: TIOTROPIUM BROMIDE 5 PUFF/90 MCG INH INH SCH (07:57)
[2017-05-01] MEDS: CHOLECALCIFEROL 1000 INTER.UNIT TAB PO SCH (07:57)
[2017-05-01 08:16] LABS: BUN/CREATININE RATIO 12.8 (10-20); CALCIUM 9.1 mg/dl (8.5-10.1); CREATININE 3.6 mg/dl (0.60-1.20); HEMATOCRIT 25.5 % (37-47); MEAN CORPUSCULAR HEMOGLOBIN 22.9 pg (25-34); MEAN CORPUSCULAR HGB CONC 28.2 g/dl (32-36); MEAN PLATELET VOLUME 7.9 fL (7.4-10.4); PLATELET COUNT 353 K/uL (130-400); POTASSIUM 4.5 mmol/L (3.5-5.1); RED BLOOD COUNT 3.15 M/uL (4.2-5.4); WHITE BLOOD COUNT 15.03 K/uL (4.8-10.8)
[2017-05-01 08:27] LABS: INR 1.3 (0.9-1.1)
[2017-05-01] MEDS: INSULIN GLARGINE SOLOSTAR 100 UNITS/ML 3 ML PEN SC SCH ×2 (08:40→20:31)
--- NOTE | 2017-05-01 11:46 | Procedure Note ---
Pre-Mod Sedation Assessment General Date of Moderate Sedation: May 01, 2017. Vital Signs: Vital Signs Past 12 Hours Date Time Temp Pulse Resp B/P (MAP) Pulse Ox O2 Delivery O2 Flow Rate FiO2 05/01/17 08:00 Nasal Cannula 4.0 05/01/17 07:46 36.6 74 18 98/40 (59) 98 4.0 05/01/17 06:16 4.0 05/01/17 00:00 Nasal Cannula 4.0 Pre-Sedation Airway Assessment Oral Cavity: Dentures Short Thick Neck: No Hx of Sleep Apnea: No Smoking Status: Former Smoker Mallampati Classification: Class I ASA Classification: Class III Notes The planned sedation has been discussed with the patient and consent obtained. I have identified the patient, determined the appropriateness of sedation and have assessed the patient immediately prior to the procedure. All medicine(s) and interventions are by my order.
[2017-05-01] MEDS ORDERED: NURSING DECISION MEDICATION ORDER SCH (12:00)
--- NOTE | 2017-05-01 12:36 | Medical Consult ---
Consultation Note Date of Service May 01, 2017. Consultation Note Chief Complaint ESRD, malfunctioniong permcath History of Present Illness The patient is a 61 year old female with multiple medical problems, including HTN, gastroparesis, cor pulmonale, CKD, DMII, who has apermcath in place. It is not running at this time. Allergies Coded Allergies: Bacitracin (Verified Allergy, Intermediate, RASH,ITCH, 08/27/16) Celecoxib (Verified Allergy, Intermediate, RASH TO SULFA DRUGS, 08/27/16) Neomycin (Verified Allergy, Intermediate, RASH,ITCH, 08/27/16) Polymyxin B (Verified Allergy, Intermediate, RASH,ITCH, 08/27/16) Sulfa Antibiotics (Verified Allergy, Intermediate, RASH,HAS TAKEN GLIPIZIDE W/O REACTION, 08/27/16) Tigecycline (Verified Adverse Reaction, Severe, MILD PANCREATITIS, ) 61 yo F placed on IV tigecycline for wound infection, after 5-6 days developed decreased appetite, had nonspecific abdominal pain from admission and was refusing to lie back for daily abd assessments because of pain in other areas of abdomen. Decreased appetite persisted, also in context of worsening depression and stated apathy, WBC continued to increase, CT chest revealed n/s changes possibly consistent with mild pancreatitis, lipase drawn and elevated, other causes ruled out, clinical pancreatitis on exam. Diruretics/albumin stopped to avoid further rehydration, tigecycline discontinued, continuing supportive care. Codeine (Verified Adverse Reaction, Intermediate, GI UPSET, 08/27/16) Home Medications Scheduled Ascorbic Acid (Vitamin C), 500 MG PO BID Aspirin Enteric Coated (Ecotrin Or Generic *), 81 MG PO DAILY Atorvastatin (Lipitor), 40 MG PO DAILY Calcitriol (Rocaltrol Cap), 0.25 MCG PO UD Ceftazidime-Avibactam Sodium (Avycaz 2-0.5 gm), 0.94 GM IV DAILY Cholecalciferol (Vitamin D), 2,000 INTER.UNIT PO DAILY Ciprofloxacin/Hydrocortisone (Cipro Hc 0.2-1 %), 3 DROPS OT BID Cyanocobalamin (Vitamin B-12), 1,000 MCG PO DAILY Gabapentin (Neurontin), 400 MG PO BID Heparin Sodium (Porcine) (Heparin Sodium), 5,000 UNITS SQ BID Hydrocodon/Acetaminophen 5MG/300MG (Vicodin (5MG/300MG)), 2 TABS PO UD Insulin Aspart (Novolog Penfill), 3 UNITS SC AC Insulin Glargine (Lantus), 20 UNITS SQ QAM Levothyroxine Sodium (Synthroid), 125 MCG PO DAILY Lorazepam (Ativan), 0.5 MG PO UD Magnesium Oxide (Mag-Ox), 400 MG PO BID Metolazone (Zaroxolyn), 2.5 MG PO WK Metoprolol Succinate (Toprol Xl), 50 MG PO DAILY Miconazole Nitrate (Desenex Shake Powder), 1 APPLN EXT MoWeFr@0900 Multiple Vitamins W/ Minerals (Therems M), 1 TAB PO DAILY Pantoprazole (Protonix), 20 MG PO DAILY Potassium Chloride Microencaps (Potassium Chloride Er), 20 MEQ PO DAILY Prednisone (Prednisone), 5 MG PO DAILY Sertraline (Zoloft), 150 MG PO DAILY Tiotropium [place] (Spiriva Handihaler), 1 CAP INH DAILY Torsemide (Demadex), 100 MG PO DAILY Warfarin Sod (Coumadin), 2.5 MG PO DAILY@16 [protein powder], 1 DOSE PO TID Scheduled PRN Acetaminophen Tab (Tylenol), 650 MG PO Q6H PRN for PAIN OR TEMP > 100F Albuterol (Proair Hfa), 2 PUFFS PO QID PRN for Shortness of Breath Hydrocodon/Acetaminophen 5MG/300MG (Vicodin (5MG/300MG)), 1 TAB PO Q6H PRN for Pain Hydrocodon/Acetaminophen 5MG/300MG (Vicodin (5MG/300MG)), 2 TABS PO Q12 PRN for SEVERE PAIN Hydroxyzine Hcl (Atarax), 25 MG PO Q6H PRN for PURITIS Problem List Medical Problems: (1) Acute right heart failure (2) Atrial Fibrillation (3) C. difficile colitis (4) Chronic respiratory failure (5) CKD (chronic kidney disease), stage IV (6) Cor pulmonale (7) Diab Ania Wo Compl, Type Ii Or Unspec Type, Uncontrolled (8) Gastroparesis (9) Hyperlipidemia Nec/Nos (10) Hypertension (11) Hypertension Nos (12) Hypoglycemia (13) Morbid Obesity (14) Obesity hypoventilation syndrome (15) Pressure ulcer (16) Sleep apnea (17) Wound infection Surgical Problems: (1) S/P cholecystectomy (2) S/P debridement Surgical / Medical History Hx Cardiac Surgery: No Hx Abdominal Surgery: Yes (Lap Cholecestectomy) Hx Cancer Surgery: No Hx Thoracic Surgery: No Hx Orthopedic: No Hx Urinary Tract Surgery: No HX Other Surgery: Yes Past Medical/Surgical History: Diabetes, Heart Disease, High Cholesterol, Hypertension, Kidney Disease Family History Cancer Diabetes mellitus FH: heart disease FHx: lung disease Hypertension Kidney stones ( Cancer Diabetes mellitus FH: heart disease FHx: lung disease Hypertension Kidney stones ( Social History Smoking Status: Former Smoker (lifelong) Hx Tobacco Use In Past Year?: No Hx Alcohol Use - Type & Amnt: No Hx Substance Use -Type & Amnt: No (Trini Burgos, INGRID) Review of Systems Constitutional: + malaise, No chills, No fever Skin: No change in color Eyes: No visual changes ENMT: No sore throat Respiratory: + NAVARRO, + orthopnea, + short of breath, No cough, No hemoptysis Cardiovascular: + edema, No chest pain, No palpitations, No syncope, No intermittent claudication Gastrointestinal: No abdominal pain, No nausea, No vomiting Genitourinary - Female: No dysuria, No hematuria Neurologic: No dizziness, No headache, No lethargy, No numbness, No tingling Physical Exam Constitutional: General Apperance: well-nourished, well-developed, obese (morbidly) Level of Distress: NAD, acutely ill, chronically ill Psychiatric: Mental Status: active & alert, normal mood, normal affect Orientation: to time, to place, to person Memory: recent memory normal (but vague), remote memory normal Head: normocephalic, atraumatic Eyes: EOM: EOMI ENMT: normal ENT inspection, hearing grossly normal Neck: supple, trachea midline Lungs: Auscultation: no rhonchi, normal breath sounds Cardiovascular: Apical Impulse: not displaced Heart Auscultation: no rubs, no gallops, pertinent finding (irregular) Peripheral Pulses: Pulses: full and equal, in all extremities except if noted Bruits: none appreciated Carotid Pulse: normal on the left, normal on the right Brachial Pulses: normal on the left, normal on the right Popliteal Pulse: normal on the left, normal on the right Posterior Tibialis Pulse: pertinent finding (nonpalpable) Dorsalis Pedis Pulse: pertinent finding (nonpalpable) Abdomen: Bowel Sounds: normal Inspection & Palpation: soft, non-distended, no tenderness, guarding & rebound Musculoskeletal: normal strength (5/5 throughout), normal tone Extremities: Upper Right: no cyanosis, no edema, no varicosities Upper Left: no cyanosis, no edema, no varicosities Lower Right: no cyanosis, no varicosities, no palpable cord, no edema Lower Left: no cyanosis, no varicosities, no palpable cord, no edema Neurologic: Cranial Nerves: grossly intact Sensation: grossly intact ASSESSMENT and PLAN: ESRD Malfunctioning permcath Plan: Patient for permcath exchange. I have discussed the risks options and benefits of the procedure with the patient. The patient understands the risks options and benefits and agrees to the procedure.
[2017-05-01] MEDS ORDERED: CEFAZOLIN IV 2,000 MG/60 ML D5W IV ONE (13:15)
[2017-05-01] MEDS ORDERED: FENTANYL CITRATE INJ 50 MCG/1 ML 2 ML VIAL ONE (13:21)
[2017-05-01] MEDS ORDERED: HEPARIN SOD (PORCINE) 5000 UNIT/ML 1 ML VIAL ONE (13:21)
[2017-05-01] MEDS ORDERED: MIDAZOLAM HCL 1 MG/ML 2ML VIAL ONE (13:22)
[2017-05-01] MEDS ORDERED: LIDOCAINE HCL 1% 20 ML VIAL INJ ONE ×2 (13:59→14:09)
[2017-05-01] MEDS ORDERED: FENTANYL CITRATE INJ 50 MCG/1 ML 2 ML VIAL IV ONE (13:59)
--- NOTE | 2017-05-01 14:04 | [facility] Post Operative Brief Note ---
Immediate Operative Summary Operative Date May 01, 2017. Pre-Operative Diagnosis Malfunctioning permcath Post-Operative Diagnosis Same Procedure(s) Performed Exchange of permcath Surgeon Dileep Chief Radiation Therapist Surgeon(s) Elton Marquez MD Estimated Blood Loss 0 Findings tip in distal SVC Specimens none Anesthesia Local Complication(s) None Disposition
[2017-05-01] MEDS ORDERED: HEPARIN SOD (PORCINE) 5000 UNIT/ML 1 ML VIAL IV ONE (14:09)
--- NOTE | 2017-05-01 14:13 | [facility] Operative Report ---
Operative Report Operative Date May 01, 2017. Pre-Operative Diagnosis Malfunctioning permcath Post-Operative Diagnosis Same Procedure(s) Performed Exchange of permcath Surgeon Dileep Operator Receptionist Surgeon(s) Elton Marquez MD Estimated Blood Loss 0 Findings tip of the new permcath is in the SVC Specimens none Anesthesia Local Complication(s) None Disposition Recovery Room / PACU Indications pt with ESRD was having difficulty with the permcath and was not able to use it. she was scheduled for an exchange of permcath. Description of Procedure Patient was takent to the angio suite and placed in the supine position. The right side of the neck and chest wall were prepped and draped including the existing permcath in a sterile manner. Local anesthesia was then administered to the appropriate areas of the neck and chest wall. A guidewire was then passed centrally under fluoroscopic imaging. The cuf of the permcath was dissected free and the permcath was pulled back over the wire keeping pressure at the base of the neck at the site of entry into the IJ. A 19cm permcath was passed over the guidewire to a central position in the distal superior vena cava. The guidewire and inner catheter was removed. Fluoroscopy was used to confirm placement. The catheter was then sutured in place using nylon sutures. Both ports aspirated and flushed easily and were then packed with heparin. A sterile dressing was applied to the catheter. The patient left the angio suite in good condition and tolerated the procedure well. I, Dr. Falk was present and scrubbed for the entire procedure. I attest to the content of the Intraoperative Record and any orders documented therein. Any exceptions are noted below.
--- NOTE | 2017-05-01 14:23 | Wound Consultation: Inpatient ---
Wound Consultation Date of Consultation: May 01, 2017. Attending Physician: Vero Malcolm DO Reason for Consultation: Ulceration abdominal wall History of Present Illness Patient was [facility] to [facility] for control of active bleeding from an ulceration to the lower left abdominal wall. Patient has been under the care of the wound center for some time now for multiple ulcerations to the abdomen as well as both hips. Patient was last seen approximately 2 and half weeks prior. Patient states she was at a dentist office when this spontaneously began to bleed. Patient currently denies any pain active bleeding redness or swelling at this site. Patient denies any chest pain shortness of breath nausea or vomiting. Patient denies any fever chills or night sweats. Patient denies any other systemic complaints at this time. Family History Diabetes mellitus MOTHER FH: brain cancer FATHER FH: heart disease MOTHER Social History Smoking Status: Former Smoker Drug Use: none Marital Status: Housing Status: lives with family Occupation Status: disabled Allergies Coded Allergies: Bacitracin (Verified Allergy, Intermediate, RASH,ITCH, 04/29/17) Celecoxib (Verified Allergy, Intermediate, RASH TO SULFA DRUGS, 04/29/17) Neomycin (Verified Allergy, Intermediate, RASH,ITCH, 04/29/17) Polymyxin B (Verified Allergy, Intermediate, RASH,ITCH, 04/29/17) Sulfa Antibiotics (Verified Allergy, Intermediate, RASH,HAS TAKEN GLIPIZIDE W/O REACTION, 04/29/17) Tigecycline (Verified Adverse Reaction, Severe, MILD PANCREATITIS, 04/29/17 ) 61 yo F placed on IV tigecycline for wound infection, after 5-6 days developed decreased appetite, had nonspecific abdominal pain from admission and was refusing to lie back for daily abd assessments because of pain in other areas of abdomen. Decreased appetite persisted, also in context of worsening depression and stated apathy, WBC continued to increase, CT chest revealed n/s changes possibly consistent with mild pancreatitis, lipase drawn and elevated, other causes ruled out, clinical pancreatitis on exam. Diruretics/albumin stopped to avoid further rehydration, tigecycline discontinued, continuing supportive care. Codeine (Verified Adverse Reaction, Intermediate, GI UPSET, 04/29/17) Home Medications Scheduled Amoxicillin & Pot Clavulanate (Augmentin 875-125 mg), 1 TAB PO BID Ascorbic Acid (Vitamin C), 500 MG PO BID Aspirin (Aspirin Ec), 81 MG PO DAILY Atorvastatin (Lipitor), 40 MG PO DAILY B-Complex W/ C & Folic Acid (Renal Vitamin 0.8 mg), 1 TAB PO DAILY Calcitriol (Rocaltrol Cap), 0.25 MCG PO UD Cholecalciferol (Vitamin D3), 1 CAP PO DAILY Ciprofloxacin Tab (Cipro), 750 MG PO BID Collagenase (Santyl), 1 APPLN EXT DAILY Cyanocobalamin (Vitamin B-12), 1,000 MCG PO DAILY Docusate Sodium (Colace), 1 CAP PO BID Gabapentin (Neurontin), 400 MG PO BID Home O2 Therapy (Oxygen), 4 LITERS NA CONTINOUS Insulin Aspart (Novolog), Unknown Dose SC AC Insulin Glargine (Lantus Solostar), 30 UNITS SC HS Levothyroxine Sodium (Synthroid), 125 MCG PO DAILY Magnesium Oxide (Mag-Ox), 400 MG PO BID Metoprolol Succ (Toprol Xl) (Toprol-Xl), 25 MG PO DAILY Pantoprazole (Protonix), 20 MG PO DAILY Prednisone (Prednisone), 5 MG PO DAILY Sertraline (Zoloft), 100 MG PO DAILY Tiotropium [place] (Spiriva Handihaler), 1 CAP INH DAILY Warfarin Sod (Coumadin), 2.5 MG PO 3XWK Warfarin Sodium (Coumadin), 5 MG PO 4XWK Scheduled PRN Hydrocodone/Acetaminophen 5MG/325MG (Gallagher 5MG/325MG), 1 TABLET PO Q6H PRN for Pain Inpatient Medications Current Inpatient Medications Medications (Trade) Dose Ordered Sig/Tyrone Route Start Time Stop Time Status Last Admin Dose Admin Acetaminophen (Tylenol Tab) 650 mg Q4H PRN PO 04/29/17 16:15 05/29/17 16:14 Ondansetron HCl (Zofran Inj) 4 mg Q6H PRN IV 04/29/17 16:15 05/29/17 16:14 Insulin Glargine (Lantus Solostar Pen) 10 units Q12 SC 04/29/17 21:00 05/29/17 20:59 04/30/17 21:49 10 UNITS Insulin Aspart (novoLOG ASPART) SLIDING SCALE If C... ACHS SC 8/15/17 21:00 05/29/17 20:59 04/30/17 21:49 1 UNITS Glucose (Glucose 40% Gel) 15-30 GRAMS 15 GRAMS... UD PRN PO 04/29/17 16:15 05/29/17 16:14 Glucose (Glucose Chew Tab) 4-8 Tablets 4 Tabl... UD PRN PO 04/29/17 16:15 05/29/17 16:14 Dextrose (Dextrose 50% 50ML Syringe) 25-50ML OF 50% DW IV FOR... UD PRN IV 04/29/17 16:15 05/29/17 16:14 Glucagon (Glucagon Inj) 1 mg UD PRN SQ 04/29/17 16:15 05/29/17 16:14 Miscellaneous (Iv Fluids Completed) 1 ea PRN PRN N/A 04/29/17 16:30 04/29/18 16:29 Ascorbic Acid (Vitamin C Tab) 500 mg BID PO 04/29/17 21:00 05/29/17 20:59 05/01/17 07:56 500 MG Atorvastatin Calcium (Lipitor Tab) 40 mg DAILY PO 04/30/17 09:00 05/30/17 08:59 05/01/17 07:56 40 MG Calcitriol (Rocaltrol Cap) 0.25 mcg MoWeFr@0900 PO 04/30/17 09:00 05/30/17 08:59 04/30/17 08:09 0.25 MCG Collagenase (Santyl Oint) 1 appln DAILY EXT 04/30/17 09:00 05/30/17 08:59 04/30/17 08:09 1 APPLN Cyanocobalamin (Vitamin B-12 Tab) 1,000 mcg DAILY PO 04/30/17 09:00 05/30/17 08:59 05/01/17 07:56 1,000 MCG Docusate Sodium (coLACE CAP) 100 mg BID PO 04/29/17 21:00 05/29/17 20:59 05/01/17 07:56 100 MG Gabapentin (Neurontin Cap) 400 mg BID PO 04/29/17 21:00 05/29/17 20:59 05/01/17 07:56 400 MG Acetaminophen/ Hydrocodone Bitart (Gallagher 5/325 Tab) 1 tab Q6H PRN PO 04/29/17 16:30 05/13/17 16:29 05/01/17 05:35 1 TAB Levothyroxine Sodium (Synthroid Tab) 125 mcg DAILYBB PO 04/30/17 06:30 05/30/17 06:59 05/01/17 05:34 125 MCG Magnesium Oxide (Mag-Ox Tab) 400 mg BID PO 04/29/17 21:00 05/29/17 20:59 05/01/17 07:56 400 MG Metoprolol Succinate (Toprol Xl Tab) 25 mg DAILY PO 04/30/17 09:00 05/30/17 08:59 04/30/17 08:09 25 MG Prednisone (PredniSONE TAB) 5 mg DAILY PO 04/30/17 09:00 05/30/17 08:59 05/01/17 07:56 5 MG Sertraline HCl (Zoloft Tab) 100 mg DAILY PO 04/30/17 09:00 05/30/17 08:59 05/01/17 07:57 100 MG Tiotropium [place] (Spiriva Handihaler Inhaler) 1 puff DAILY INH 04/30/17 09:00 05/30/17 08:59 05/01/17 07:57 1 PUFF Vitamin B Complex (Vitamin B Complex) 1 tab DAILY PO 04/30/17 09:00 05/30/17 08:59 05/01/17 07:56 1 TAB Cholecalciferol (Vitamin D Tab) 2,000 inter.unit DAILY PO 04/30/17 09:00 05/30/17 08:59 05/01/17 07:57 2,000 INTER.UNIT Pantoprazole Sodium (Protonix Tab) 40 mg QAM PO 04/30/17 09:00 05/30/17 08:59 05/01/17 07:56 40 MG Enteral Nutritional Formula (Boost Pudding) 1 cup BID PO 04/30/17 21:00 05/30/17 20:59 Amoxicillin/ Clavulanate Potassium (Augmentin Tab) 500 mg HS PO 04/30/17 21:00 05/09/17 20:59 04/30/17 21:38 500 MG Ciprofloxacin (Ciprofloxacin Tab) 750 mg HS PO 04/30/17 21:00 05/09/17 20:59 04/30/17 21:39 750 MG Epoetin Faisal (Procrit Inj) 10,000 units TODAY@0715 IV. 05/01/17 07:15 05/01/17 15:00 Albumin Human (Albumin 25%) 12.5 gm TODAY@0715 IV 05/01/17 07:15 05/01/17 15:00 Miconazole Nitrate (Desenex Powder) 1 appln BID EXT 05/01/17 21:00 05/31/17 20:59 Physical Exam Date Time Temp Pulse Resp B/P (MAP) Pulse Ox O2 Delivery O2 Flow Rate FiO2 05/01/17 08:00 Nasal Cannula 4.0 05/01/17 07:46 36.6 74 18 98/40 (59) 98 4.0 05/01/17 06:16 4.0 05/01/17 00:00 Nasal Cannula 4.0 04/30/17 23:29 36.9 78 18 98/64 (75) 98 Nasal Cannula 4.0 04/30/17 16:00 Nasal Cannula 4.0 04/30/17 14:58 36.7 63 20 94/59 (71) 91 Nasal Cannula 2.0 General: The patient is sitting in a hospital chair in no distress. Alert, cooperative and appropriate to all questions. HEENT: Pupils equal and reactive to light. Sclera clear, EOM intact. Neck: Supple, No JVD noted Chest: CTA in all alvarado. No deformity Heart: RRR without murmurs, S3, S4, thrills, rubs or heaves Abdomen: Obese with protuberant abdomen. There is an ulceration present in the left lower abdominal wall measuring 3.5 x 9.4 x 1.2 cm. There is central necrotic fat and surrounding eschar noted. No active bleeding is present. No apparent sutures are noted. Extremities: Patient has multiple ulcerations and wound areas to both left and right hip and thigh regions. These have been stable over the course of the past few weeks. Moderate improvement has been noted with current therapy which includes but not limited to Aquasol AG an operative foam as well as wound VAC therapy. Dressings are all in place at this time and examination of these yesterday demonstrated no deterioration at the sites. Neurological: Alert and oriented x3. No focal deficits. Skin: No rashes, papules, vesicles, excoriations Laboratory Results Last 24 Hours Test 04/30/17 16:42 04/30/17 20:14 05/01/17 07:29 05/01/17 07:41 Bedside Glucose 116 mg/dl 118 mg/dl 104 mg/dl White Blood Count 15.03 K/uL Red Blood Count 3.15 M/uL Hemoglobin 7.2 g/dL Hematocrit 25.5 % Mean Corpuscular Volume 81.0 fL Mean Corpuscular Hemoglobin 22.9 pg Mean Corpuscular Hemoglobin Concent 28.2 g/dl RDW Standard Deviation 61.2 fL RDW Coefficient of Variation 20.9 % Platelet Count 353 K/uL Mean Platelet Volume 7.9 fL Sodium Level 137 mmol/L Potassium Level 4.5 mmol/L Chloride Level 104 mmol/L Carbon Dioxide Level 28 mmol/L Anion Gap 5.0 mmol/L Blood Urea Nitrogen 46 mg/dl Creatinine 3.60 mg/dl Est Creatinine Clear Calc Drug Dose 19.1 ml/min Estimated GFR () 14.9 Estimated GFR (Non- 12.8 BUN/Creatinine Ratio 12.8 Random Glucose 91 mg/dl Calcium Level 9.1 mg/dl Test 05/01/17 07:57 05/01/17 11:25 Prothrombin Time 14.0 SECONDS Prothromb Time International Ratio 1.3 Bedside Glucose 111 mg/dl Assessment & Plan Assessment: Ulceration left lower abdominal wall with central necrosis. Multiple ulcerations to both hips and thigh regions stable Plan: At this time the abdominal wall ulceration will be managed with an irrigating the wound VAC black foam 100 mm of negative pressure with instillation of normal saline for 10 minutes at a 2 hour interval. At this time no mechanical debridement is indicated due to the patient's recent bleeding history. The site will be reevaluated on Friday for consideration of transfer to a conventional wound VAC and discharge. All other sites will continue to be managed as before with Aquasol AG gauze dressings with current wound VAC therapy to the right lateral thigh wound. It excisional Friday will also have to be made regarding continuing left VAC therapy versus VAC therapy of the abdominal wall.
--- NOTE | 2017-05-01 14:23 | Progress Note ---
Medicine Progress Note Date & Time of Visit: May 01, 2017 at 14:11. (Alice Alvarez, P.A.-C.) Subjective Patient seen and examined, sitting on the edge of the bed. Feeling the same today. Endorses some generalized fatigue and weakness. Denies any fever, chills, lightheadedness, confusion, CP, SOB, N/V/D. (Alice Alvarez, P.A.-C.) Objective Last 8 Hrs Date Time Temp Pulse Resp B/P (MAP) Pulse Ox O2 Delivery O2 Flow Rate FiO2 05/01/17 08:00 Nasal Cannula 4.0 05/01/17 07:46 36.6 74 18 98/40 (59) 98 4.0 05/01/17 06:16 4.0 Physical Exam: General Appearance: WD/WN, no apparent distress Head: normocephalic, atraumatic Eyes: normal inspection ENT: normal ENT inspection, hearing grossly normal Neck: supple, thyroid normal, trachea midline Respiratory/Chest: chest non-tender, lungs clear, no wheezing, no respiratory distress, no accessory muscle use Cardiovascular: regular rate, rhythm, no murmur Abdomen/GI: normal bowel sounds Back: normal inspection Extremities/Musculoskelatal: normal inspection, no calf tenderness, + swelling (Chronic LE swelling) Neurologic/Psych: no motor/sensory deficits, alert, normal mood/affect, oriented x 3 Skin: normal color. Presence of multiple chronic wounds: LLQ abdominal wound without drainage. Tissue is sloughing with macerated edges. Approximately 7 cm x 3 cm x 2 cm. Bandaged wounds on R buttocks, L buttocks, R thigh (with wound vac in place)) Lymphatic: no adenopathy Laboratory Results: Last 24 Hours Test 04/30/17 16:42 04/30/17 20:14 05/01/17 07:29 05/01/17 07:41 Bedside Glucose 116 mg/dl 118 mg/dl 104 mg/dl White Blood Count 15.03 K/uL Red Blood Count 3.15 M/uL Hemoglobin 7.2 g/dL Hematocrit 25.5 % Mean Corpuscular Volume 81.0 fL Mean Corpuscular Hemoglobin 22.9 pg Mean Corpuscular Hemoglobin Concent 28.2 g/dl RDW Standard Deviation 61.2 fL RDW Coefficient of Variation 20.9 % Platelet Count 353 K/uL Mean Platelet Volume 7.9 fL Sodium Level 137 mmol/L Potassium Level 4.5 mmol/L Chloride Level 104 mmol/L Carbon Dioxide Level 28 mmol/L Anion Gap 5.0 mmol/L Blood Urea Nitrogen 46 mg/dl Creatinine 3.60 mg/dl Est Creatinine Clear Calc Drug Dose 19.1 ml/min Estimated GFR () 14.9 Estimated GFR (Non- 12.8 BUN/Creatinine Ratio 12.8 Random Glucose 91 mg/dl Calcium Level 9.1 mg/dl Test 05/01/17 07:57 05/01/17 11:25 Prothrombin Time 14.0 SECONDS Prothromb Time International Ratio 1.3 Bedside Glucose 111 mg/dl (Alice Alvarez, P.A.-C.) Assessment & Plan This is a 61yo F with a PMH of chronic wounds, Paroxysmal A Fib (on coumadin), DM II, ESRD (requiring dialysis), HTN and COPD who presents with bleeding from a pre-existing wound on L lower abdomen. Acute blood loss Anemia 2/2 wound on lower left abdomen: -Bleeding has subsided with sutures; bandage in place -Hgb decreased to 7.2 (from 7.4 yesterday) -Unable to receive dialysis yesterday due to problem with access -Plan for dialysis and transfusion of 2 units prbcs today after tunneled line exchange by Dr. Falk -Continue monitoring H&H Wound on lower left abdomen: -Examined by Dr. Mejía today -Wound vac ordered -Dressing changed 05/01/17 Chronic wounds: -Continue Cipro and Augmentin -Dressings changed 05/01/17 Paroxysmal A Fib: - Rate controlled on beta reyes, will continue - On Coumadin, subtherapeutic INR of 1.3 - Hold Coumadin and follow up INR tomorrow ESRD (on dialysis): -M W F -Continue renal vitamins -Nephrology on board -Unable to receive dialysis yesterday due to problem with access -Plan for dialysis today after tunneled line exchange by Dr. Falk COPD: -Stable. Denies dyspnea, SOB, wheezing -Continue home inhalers -O2 PRN by protocol DM II: - Hgb a1c of 8.1 on 12/2016 - Held home meds - Continue basal / SSI while in-patient - BG checks AC and qHS Hypothyroidism: - Continue Levothyroxine DVT Ppx: on coumadin Code status: FULL PCP: Carlos Dispo: Plan to return home once medically stable. Daughter coordinates medical care. SW on board. Current Inpatient Medications: Current Inpatient Medications Medications (Trade) Dose Ordered Sig/Tyrone Route Start Time Stop Time Status Last Admin Dose Admin Acetaminophen (Tylenol Tab) 650 mg Q4H PRN PO 04/29/17 16:15 05/29/17 16:14 Ondansetron HCl (Zofran Inj) 4 mg Q6H PRN IV 04/29/17 16:15 05/29/17 16:14 Insulin Glargine (Lantus Solostar Pen) 10 units Q12 SC 04/29/17 21:00 05/29/17 20:59 04/30/17 21:49 10 UNITS Insulin Aspart (novoLOG ASPART) SLIDING SCALE If C... ACHS SC 04/29/17 21:00 05/29/17 20:59 04/30/17 21:49 1 UNITS Glucose (Glucose 40% Gel) 15-30 GRAMS 15 GRAMS... UD PRN PO 04/29/17 16:15 05/29/17 16:14 Glucose (Glucose Chew Tab) 4-8 Tablets 4 Tabl... UD PRN PO 04/29/17 16:15 05/29/17 16:14 Dextrose (Dextrose 50% 50ML Syringe) 25-50ML OF 50% DW IV FOR... UD PRN IV 04/29/17 16:15 05/29/17 16:14 Glucagon (Glucagon Inj) 1 mg UD PRN SQ 04/29/17 16:15 05/29/17 16:14 Miscellaneous (Iv Fluids Completed) 1 ea PRN PRN N/A 04/29/17 16:30 04/29/18 16:29 Ascorbic Acid (Vitamin C Tab) 500 mg BID PO 04/29/17 21:00 05/29/17 20:59 05/01/17 07:56 500 MG Atorvastatin Calcium (Lipitor Tab) 40 mg DAILY PO 04/30/17 09:00 05/30/17 08:59 05/01/17 07:56 40 MG Calcitriol (Rocaltrol Cap) 0.25 mcg MoWeFr@0900 PO 04/30/17 09:00 05/30/17 08:59 04/30/17 08:09 0.25 MCG Collagenase (Santyl Oint) 1 appln DAILY EXT 04/30/17 09:00 05/30/17 08:59 04/30/17 08:09 1 APPLN Cyanocobalamin (Vitamin B-12 Tab) 1,000 mcg DAILY PO 04/30/17 09:00 05/30/17 08:59 05/01/17 07:56 1,000 MCG Docusate Sodium (coLACE CAP) 100 mg BID PO 04/29/17 21:00 05/29/17 20:59 05/01/17 07:56 100 MG Gabapentin (Neurontin Cap) 400 mg BID PO 04/29/17 21:00 05/29/17 20:59 05/01/17 07:56 400 MG Acetaminophen/ Hydrocodone Bitart ([place] 5/325 Tab) 1 tab Q6H PRN PO 04/29/17 16:30 05/13/17 16:29 05/01/17 05:35 1 TAB Levothyroxine Sodium (Synthroid Tab) 125 mcg DAILYBB PO 04/30/17 06:30 05/30/17 06:59 05/01/17 05:34 125 MCG Magnesium Oxide (Mag-Ox Tab) 400 mg BID PO 04/29/17 21:00 05/29/17 20:59 05/01/17 07:56 400 MG Metoprolol Succinate (Toprol Xl Tab) 25 mg DAILY PO 04/30/17 09:00 05/30/17 08:59 04/30/17 08:09 25 MG Prednisone (PredniSONE TAB) 5 mg DAILY PO 04/30/17 09:00 05/30/17 08:59 05/01/17 07:56 5 MG Sertraline HCl (Zoloft Tab) 100 mg DAILY PO 04/30/17 09:00 05/30/17 08:59 05/01/17 07:57 100 MG Tiotropium [place] (Spiriva Handihaler Inhaler) 1 puff DAILY INH 04/30/17 09:00 05/30/17 08:59 05/01/17 07:57 1 PUFF Vitamin B Complex (Vitamin B Complex) 1 tab DAILY PO 04/30/17 09:00 05/30/17 08:59 05/01/17 07:56 1 TAB Cholecalciferol (Vitamin D Tab) 2,000 inter.unit DAILY PO 04/30/17 09:00 05/30/17 08:59 05/01/17 07:57 2,000 INTER.UNIT Pantoprazole Sodium (Protonix Tab) 40 mg QAM PO 04/30/17 09:00 05/30/17 08:59 05/01/17 07:56 40 MG Enteral Nutritional Formula (Boost Pudding) 1 cup BID PO 04/30/17 21:00 05/30/17 20:59 Amoxicillin/ Clavulanate Potassium (Augmentin Tab) 500 mg HS PO 04/30/17 21:00 05/09/17 20:59 04/30/17 21:38 500 MG Ciprofloxacin (Ciprofloxacin Tab) 750 mg HS PO 04/30/17 21:00 05/09/17 20:59 04/30/17 21:39 750 MG Epoetin Faisal (Procrit Inj) 10,000 units TODAY@0715 IV. 05/01/17 07:15 05/01/17 15:00 Albumin Human (Albumin 25%) 12.5 gm TODAY@0715 IV 05/01/17 07:15 05/01/17 15:00 Miconazole Nitrate (Desenex Powder) 1 appln BID EXT 05/01/17 21:00 05/31/17 20:59 (Alice Alvarez, P.A.-C.) Saw/examined the patient in room 261 Patient is feeling fine Hgb drop to 7.2 Plan for dialysis catheter placement by vascular surgery dialysis later today two units of PRBCs with dialysis plan is for irrigation vac as per wound care physician - for at least 2 days, d/ c planning for May 05 (Vero Malcolm, )
[2017-05-01] MEDS: MICONAZOLE NITRATE POWDER 43 GM EXT SCH (20:23)
[2017-05-01] MEDS: AMOXICILLIN/CLAVULANATE TAB 500 MG TAB PO SCH (20:25)
[2017-05-01] MEDS: CIPROFLOXACIN 250 MG TAB PO SCH (20:27)
[2017-05-02] VITALS (11 sets, daily range): BP systolic 102–122; BP diastolic 55–75; PULSE 75–82; TEMP 36.4–36.8; O2SAT 93–100
[2017-05-02] MEDS: HYDROCODONE/ACETAMOPHEN 5/325MG TAB PO PRN ×2 (04:51→18:33)
[2017-05-02] MEDS: LEVOTHYROXINE 125 MCG TAB PO SCH (06:12)
[2017-05-02] MEDS: INSULIN ASPART 100 UNITS/ML 3 ML PEN SC SCH ×4 (06:30→21:00)
--- NOTE | 2017-05-02 07:14 | Nephrology Progress Note ---
Nephrology Progress Note Date of Service: May 02, 2017. Subjective 61 yo female with esrd who presented with bleeding of her wound on her pannus and required stitches to stop the bleeding. pt had issues with tunneled dialysis catheter. exchanged it yesterday and still running poorly. underwent blood transfusion yesterday through peripheral line. Objective Date Time Temp Pulse Resp B/P (MAP) Pulse Ox O2 Delivery O2 Flow Rate FiO2 05/02/17 01:18 36.8 82 18 104/66 (79) 96 Nasal Cannula 4.0 05/02/17 00:00 Nasal Cannula 4.0 05/01/17 20:25 79 119/71 (87) 05/01/17 20:00 Nasal Cannula 4.0 05/01/17 19:07 36.7 76 113/65 (81) 05/01/17 18:55 98/57 05/01/17 18:45 36.7 70 18 103/70 05/01/17 18:45 70 103/66 05/01/17 18:30 76 106/68 05/01/17 18:30 76 18 106/76 05/01/17 18:15 70 116/75 05/01/17 18:00 69 106/71 05/01/17 17:45 76 119/76 05/01/17 17:32 36.7 76 18 114/69 05/01/17 17:30 77 139/82 05/01/17 17:30 36.7 77 18 139/82 05/01/17 17:15 76 114/69 05/01/17 17:15 36.7 76 18 114/69 05/01/17 17:00 73 18 137/60 05/01/17 17:00 73 137/60 05/01/17 16:45 75 126/74 05/01/17 16:45 36.5 75 18 126/74 05/01/17 16:31 36.5 73 18 127/57 05/01/17 16:30 77 127/57 05/01/17 16:25 36.5 73 119/65 (83) 05/01/17 16:00 Nasal Cannula 4.0 05/01/17 14:59 36.6 77 18 110/67 (81) 96 Nasal Cannula 2.0 05/01/17 14:35 36.4 76 18 113/62 (79) 93 4.0 05/01/17 08:00 Nasal Cannula 4.0 05/01/17 07:46 36.6 74 18 98/40 (59 98 4.0 Physical Exam: General-aaox3, obese Eyes-no scleral icterus ENT-mmm Neck-supple Lungs-clear Heart-distant heart sounds Abdomen-+wound bandaged up, other wound with wound vac in place Extremities-+2 non-pitting edema Neuro-nonfocal Current Inpatient Medications Medications (Trade) Dose Ordered Sig/Tyrone Route Start Time Stop Time Status Last Admin Dose Admin Acetaminophen (Tylenol Tab) 650 mg Q4H PRN PO 04/29/17 16:15 05/29/17 16:14 Ondansetron HCl (Zofran Inj) 4 mg Q6H PRN IV 04/29/17 16:15 05/29/17 16:14 Insulin Glargine (Lantus Solostar Pen) 10 units Q12 SC 04/29/17 21:00 05/29/17 20:59 05/01/17 20:31 10 UNITS Insulin Aspart (novoLOG ASPART) SLIDING SCALE If C... ACHS SC 04/29/17 21:00 05/29/17 20:59 05/01/17 17:49 3 UNITS Glucose (Glucose 40% Gel) 15-30 GRAMS 15 GRAMS... UD PRN PO 04/29/17 16:15 05/29/17 16:14 Glucose (Glucose Chew Tab) 4-8 Tablets 4 Tabl... UD PRN PO 04/29/17 16:15 05/29/17 16:14 Dextrose (Dextrose 50% 50ML Syringe) 25-50ML OF 50% DW IV FOR... UD PRN IV 04/29/17 16:15 05/29/17 16:14 Glucagon (Glucagon Inj) 1 mg UD PRN SQ 04/29/17 16:15 05/29/17 16:14 Miscellaneous (Iv Fluids Completed) 1 ea PRN PRN N/A 04/29/17 16:30 04/29/18 16:29 Ascorbic Acid (Vitamin C Tab) 500 mg BID PO 04/29/17 21:00 05/29/17 20:59 05/01/17 20:27 500 MG Atorvastatin Calcium (Lipitor Tab) 40 mg DAILY PO 04/30/17 09:00 05/30/17 08:59 05/01/17 07:56 40 MG Calcitriol (Rocaltrol Cap) 0.25 mcg MoWeFr@0900 PO 04/30/17 09:00 05/30/17 08:59 04/30/17 08:09 0.25 MCG Collagenase (Santyl Oint) 1 appln DAILY EXT 04/30/17 09:00 05/30/17 08:59 04/30/17 08:09 1 APPLN Cyanocobalamin (Vitamin B-12 Tab) 1,000 mcg DAILY PO 04/30/17 09:00 05/30/17 08:59 05/01/17 07:56 1,000 MCG Docusate Sodium (coLACE CAP) 100 mg BID PO 04/29/17 21:00 05/29/17 20:59 05/01/17 20:24 100 MG Gabapentin (Neurontin Cap) 400 mg BID PO 04/29/17 21:00 05/29/17 20:59 05/01/17 20:27 400 MG Acetaminophen/ Hydrocodone Bitart ([place] 5/325 Tab) 1 tab Q6H PRN PO 04/29/17 16:30 05/13/17 16:29 05/02/17 04:51 1 TAB Levothyroxine Sodium (Synthroid Tab) 125 mcg DAILYBB PO 04/30/17 06:30 05/30/17 06:59 05/02/17 06:12 125 MCG Magnesium Oxide (Mag-Ox Tab) 400 mg BID PO 04/29/17 21:00 05/29/17 20:59 05/01/17 20:25 400 MG Metoprolol Succinate (Toprol Xl Tab) 25 mg DAILY PO 04/30/17 09:00 05/30/17 08:59 04/30/17 08:09 25 MG Prednisone (PredniSONE TAB) 5 mg DAILY PO 04/30/17 09:00 05/30/17 08:59 05/01/17 07:56 5 MG Sertraline HCl (Zoloft Tab) 100 mg DAILY PO 04/30/17 09:00 05/30/17 08:59 05/01/17 07:57 100 MG Tiotropium [place] (Spiriva Handihaler Inhaler) 1 puff DAILY INH 04/30/17 09:00 05/30/17 08:59 05/01/17 07:57 1 PUFF Vitamin B Complex (Vitamin B Complex) 1 tab DAILY PO 04/30/17 09:00 05/30/17 08:59 05/01/17 07:56 1 TAB Cholecalciferol (Vitamin D Tab) 2,000 inter.unit DAILY PO 04/30/17 09:00 05/30/17 08:59 05/01/17 07:57 2,000 INTER.UNIT Pantoprazole Sodium (Protonix Tab) 40 mg QAM PO 04/30/17 09:00 05/30/17 08:59 05/01/17 07:56 40 MG Enteral Nutritional Formula (Boost Pudding) 1 cup BID PO 04/30/17 21:00 05/30/17 20:59 05/01/17 20:26 1 CUP Amoxicillin/ Clavulanate Potassium (Augmentin Tab) 500 mg HS PO 04/30/17 21:00 05/09/17 20:59 05/01/17 20:25 500 MG Ciprofloxacin (Ciprofloxacin Tab) 750 mg HS PO 04/30/17 21:00 05/09/17 20:59 05/01/17 20:27 750 MG Miconazole Nitrate (Desenex Powder) 1 appln BID EXT 05/01/17 21:00 05/31/17 20:59 05/01/17 20:23 1 APPLN Last 24 Hours Test 05/01/17 07:29 05/01/17 07:41 05/01/17 07:57 05/01/17 11:25 White Blood Count 15.03 K/uL Red Blood Count 3.15 M/uL Hemoglobin 7.2 g/dL Hematocrit 25.5 % Mean Corpuscular Volume 81.0 fL Mean Corpuscular Hemoglobin 22.9 pg Mean Corpuscular Hemoglobin Concent 28.2 g/dl RDW Standard Deviation 61.2 fL RDW Coefficient of Variation 20.9 % Platelet Count 353 K/uL Mean Platelet Volume 7.9 fL Sodium Level 137 mmol/L Potassium Level 4.5 mmol/L Chloride Level 104 mmol/L Carbon Dioxide Level 28 mmol/L Anion Gap 5.0 mmol/L Blood Urea Nitrogen 46 mg/dl Creatinine 3.60 mg/dl Est Creatinine Clear Calc Drug Dose 19.1 ml/min Estimated GFR () 14.9 Estimated GFR (Non- 12.8 BUN/Creatinine Ratio 12.8 Random Glucose 91 mg/dl Calcium Level 9.1 mg/dl Bedside Glucose 104 mg/dl 111 mg/dl Prothrombin Time 14.0 SECONDS Prothromb Time International Ratio 1.3 Test 05/01/17 16:08 05/01/17 20:00 05/02/17 04:44 Bedside Glucose 118 mg/dl 112 mg/dl Assessment & Plan ESRD-pt with tunneled line. not working well. will speak to cheryle to see if worthwhile to try to adjust again or not. Anemia of renal failure-pt had two units transfused yesterday. todays labs pending. pt comfortable. will be getting new wound vac on new wound on friday. attempting to optimize dialysis access. no fistula at this time given her chronic wounds.
[2017-05-02] MEDS: PANTOprazole SOD 40 MG TAB PO SCH (07:39)
[2017-05-02] MEDS: CALCITRIOL 0.25 MCG CAP PO SCH (07:39)
[2017-05-02] MEDS: SERTRALINE HCL 100 MG TAB PO SCH (07:39)
[2017-05-02] MEDS: CYANOCOBALAMIN 500 MCG TAB (VIT B-12) PO SCH (07:39)
[2017-05-02] MEDS: ASCORBIC ACID 500 MG TAB PO SCH ×2 (07:39→22:00)
[2017-05-02] MEDS: CHOLECALCIFEROL 1000 INTER.UNIT TAB PO SCH (07:39)
[2017-05-02] MEDS: TIOTROPIUM BROMIDE 5 PUFF/90 MCG INH INH SCH (07:39)
[2017-05-02] MEDS: VITAMIN B COMPLEX TAB PO SCH (07:39)
[2017-05-02] MEDS: METOPROLOL SUCC 25MG EXT REL TAB PO SCH (07:39)
[2017-05-02] MEDS: MAGNESIUM OXIDE 400 MG TAB PO SCH ×2 (07:39→21:58)
[2017-05-02] MEDS: DOCUSATE SODIUM 100 MG CAP PO SCH ×2 (07:39→21:58)
[2017-05-02] MEDS: ATORVASTATIN 40 MG TAB PO SCH (07:39)
[2017-05-02] MEDS: GABAPENTIN 400 MG CAP PO SCH ×2 (07:40→21:59)
[2017-05-02] MEDS: COLLAGENASE OINT 30 GM TUBE EXT SCH (07:40)
[2017-05-02] MEDS: INSULIN GLARGINE SOLOSTAR 100 UNITS/ML 3 ML PEN SC SCH ×2 (07:40→22:07)
[2017-05-02] MEDS: BOOST VANILLA PUDDING CUP PO SCH ×2 (07:40→21:57)
[2017-05-02] MEDS: MICONAZOLE NITRATE POWDER 43 GM EXT SCH ×2 (07:40→21:57)
[2017-05-02 09:13] LABS: HEMATOCRIT 29.3 % (37-47); MEAN CELL VOLUME 82.1 fL (80-100); MEAN CORPUSCULAR HEMOGLOBIN 24.1 pg (25-34); MEAN CORPUSCULAR HGB CONC 29.4 g/dl (32-36); MEAN PLATELET VOLUME 8.2 fL (7.4-10.4); PLATELET COUNT 366 K/uL (130-400); RED BLOOD COUNT 3.57 M/uL (4.2-5.4); WHITE BLOOD COUNT 16.55 K/uL (4.8-10.8)
[2017-05-02 09:23] LABS: INR 1.3 (0.9-1.1); PROTHROMBIN TIME (PATIENT) 13.5 SECONDS (9.0-12.0)
[2017-05-02 09:40] LABS: BUN/CREATININE RATIO 13.3 (10-20); CREATININE 3.4 mg/dl (0.60-1.20); POTASSIUM 4.4 mmol/L (3.5-5.1)
[2017-05-02] MEDS ORDERED: ALPRAZOLAM 0.5 MG TAB PO PRN (11:45)
--- NOTE | 2017-05-02 15:25 | Progress Note ---
Medicine Progress Note Date & Time of Visit: May 02, 2017 at 15:18. (Alice Alvarez, P.A.-C.) Subjective Patient seen and examined. Sitting upright and watching TV. States that she feels less tired since transfusion yesterday. Denies any lightheadedness, confusion, CP, palpitations or SOB. (Alice Alvarez, P.A.-C.) Objective Last 8 Hrs Date Time Temp Pulse Resp B/P (MAP) Pulse Ox O2 Delivery O2 Flow Rate FiO2 05/02/17 15:16 36.5 76 20 121/67 (85) 93 05/02/17 08:00 Nasal Cannula 4.0 Physical Exam: General Appearance: WD/WN, no apparent distress Head: normocephalic, atraumatic Eyes: normal inspection ENT: normal ENT inspection, hearing grossly normal Neck: supple, thyroid normal, trachea midline Respiratory/Chest: chest non-tender, lungs clear, no wheezing, no respiratory distress, no accessory muscle use Cardiovascular: regular rate, rhythm, no murmur Abdomen/GI: normal bowel sounds Back: normal inspection Extremities/Musculoskelatal: normal inspection, no calf tenderness, + swelling (Chronic LE swelling) Neurologic/Psych: no motor/sensory deficits, alert, normal mood/affect, oriented x 3 Skin: normal color. Presence of multiple chronic wounds: LLQ abdominal with wound vac in place. Bandaged wounds on R buttocks, L buttocks, R thigh (with wound vac in place)) Lymphatic: no adenopathy Laboratory Results: Last 24 Hours Test 05/01/17 16:08 05/01/17 20:00 05/02/17 07:26 05/02/17 08:29 Bedside Glucose 118 mg/dl 112 mg/dl 105 mg/dl White Blood Count 16.55 K/uL Red Blood Count 3.57 M/uL Hemoglobin 8.6 g/dL Hematocrit 29.3 % Mean Corpuscular Volume 82.1 fL Mean Corpuscular Hemoglobin 24.1 pg Mean Corpuscular Hemoglobin Concent 29.4 g/dl RDW Standard Deviation 58.8 fL RDW Coefficient of Variation 19.8 % Platelet Count 366 K/uL Mean Platelet Volume 8.2 fL Prothrombin Time 13.5 SECONDS Prothromb Time International Ratio 1.3 Sodium Level 136 mmol/L Potassium Level 4.4 mmol/L Chloride Level 103 mmol/L Carbon Dioxide Level 26 mmol/L Anion Gap 7.0 mmol/L Blood Urea Nitrogen 45 mg/dl Creatinine 3.40 mg/dl Est Creatinine Clear Calc Drug Dose 20.3 ml/min Estimated GFR () 15.9 Estimated GFR (Non- 13.7 BUN/Creatinine Ratio 13.3 Random Glucose 98 mg/dl Calcium Level 9.0 mg/dl Test 05/02/17 11:17 Bedside Glucose 111 mg/dl (Alice Alvarez, P.A.-C.) Assessment & Plan This is a 61yo F with a PMH of chronic wounds, Paroxysmal A Fib (on coumadin), DM II, ESRD (requiring dialysis), HTN and COPD who presents with bleeding from a pre-existing wound on L lower abdomen. Acute blood loss Anemia 2/2 wound on lower left abdomen: improving -Bleeding has subsided with sutures; bandage in place -Hgb decreased to 8.6 (from 7.2 yesterday) after transfusion of 2 units prbcs -Continue monitoring H&H Wound on lower left abdomen: -Examined by wound care team -Dressing changed 05/01/17 -Wound vac placed and is irrigating. Will reassess on Friday, 05/05 Chronic wounds: -Continue Cipro and Augmentin -Dressings changed 05/01/17 Paroxysmal A Fib: - Rate controlled on beta reyes, will continue - On Coumadin, subtherapeutic INR of 1.3 - Hold Coumadin and follow up INR tomorrow ESRD (on dialysis): -M W F -Continue renal vitamins -Nephrology on board -Tunneled line exchange by Dr. Falk 05/01 but still working poorly, per renal -Will try to optimize dialysis access today COPD: -Stable. Denies dyspnea, SOB, wheezing -Continue home inhalers -O2 PRN by protocol DM II: - Hgb a1c of 8.1 on 12/2016 - Held home meds - Continue basal / SSI while in-patient - BG checks AC and qHS Hypothyroidism: - Continue Levothyroxine DVT Ppx: on coumadin Code status: FULL PCP: Carlos Dispo: Plan to return home once medically stable. Daughter coordinates medical care. SW on board. Current Inpatient Medications: Current Inpatient Medications Medications (Trade) Dose Ordered Sig/Tyrone Route Start Time Stop Time Status Last Admin Dose Admin Acetaminophen (Tylenol Tab) 650 mg Q4H PRN PO 04/29/17 16:15 05/29/17 16:14 Ondansetron HCl (Zofran Inj) 4 mg Q6H PRN IV 04/29/17 16:15 05/29/17 16:14 Insulin Glargine (Lantus Solostar Pen) 10 units Q12 SC 04/29/17 21:00 05/29/17 20:59 05/01/17 20:31 10 UNITS Insulin Aspart (novoLOG ASPART) SLIDING SCALE If C... ACHS SC 04/29/17 21:00 05/29/17 20:59 05/01/17 17:49 3 UNITS Glucose (Glucose 40% Gel) 15-30 GRAMS 15 GRAMS... UD PRN PO 04/29/17 16:15 05/29/17 16:14 Glucose (Glucose Chew Tab) 4-8 Tablets 4 Tabl... UD PRN PO 04/29/17 16:15 05/29/17 16:14 Dextrose (Dextrose 50% 50ML Syringe) 25-50ML OF 50% DW IV FOR... UD PRN IV 04/29/17 16:15 05/29/17 16:14 Glucagon (Glucagon Inj) 1 mg UD PRN SQ 04/29/17 16:15 05/29/17 16:14 Miscellaneous (Iv Fluids Completed) 1 ea PRN PRN N/A 04/29/17 16:30 04/29/18 16:29 Ascorbic Acid (Vitamin C Tab) 500 mg BID PO 04/29/17 21:00 05/29/17 20:59 05/02/17 07:39 500 MG Atorvastatin Calcium (Lipitor Tab) 40 mg DAILY PO 04/30/17 09:00 05/30/17 08:59 05/02/17 07:39 40 MG Calcitriol (Rocaltrol Cap) 0.25 mcg MoWeFr@0900 PO 04/30/17 09:00 05/30/17 08:59 05/02/17 07:39 0.25 MCG Collagenase (Santyl Oint) 1 appln DAILY EXT 04/30/17 09:00 05/30/17 08:59 05/02/17 07:40 1 APPLN Cyanocobalamin (Vitamin B-12 Tab) 1,000 mcg DAILY PO 04/30/17 09:00 05/30/17 08:59 05/02/17 07:39 1,000 MCG Docusate Sodium (coLACE CAP) 100 mg BID PO 04/29/17 21:00 05/29/17 20:59 05/02/17 07:39 100 MG Gabapentin (Neurontin Cap) 400 mg BID PO 04/29/17 21:00 05/29/17 20:59 05/02/17 07:40 400 MG Acetaminophen/ Hydrocodone Bitart ([place] 5/325 Tab) 1 tab Q6H PRN PO 04/29/17 16:30 05/13/17 16:29 05/02/17 04:51 1 TAB Levothyroxine Sodium (Synthroid Tab) 125 mcg DAILYBB PO 04/30/17 06:30 05/30/17 06:59 05/02/17 06:12 125 MCG Magnesium Oxide (Mag-Ox Tab) 400 mg BID PO 04/29/17 21:00 05/29/17 20:59 05/02/17 07:39 400 MG Metoprolol Succinate (Toprol Xl Tab) 25 mg DAILY PO 04/30/17 09:00 05/30/17 08:59 05/02/17 07:39 25 MG Prednisone (PredniSONE TAB) 5 mg DAILY PO 04/30/17 09:00 05/30/17 08:59 05/02/17 07:39 5 MG Sertraline HCl (Zoloft Tab) 100 mg DAILY PO 04/30/17 09:00 05/30/17 08:59 05/02/17 07:39 100 MG Tiotropium [place] (Spiriva Handihaler Inhaler) 1 puff DAILY INH 04/30/17 09:00 05/30/17 08:59 05/02/17 07:39 1 PUFF Vitamin B Complex (Vitamin B Complex) 1 tab DAILY PO 04/30/17 09:00 05/30/17 08:59 05/02/17 07:39 1 TAB Cholecalciferol (Vitamin D Tab) 2,000 inter.unit DAILY PO 04/30/17 09:00 05/30/17 08:59 05/02/17 07:39 2,000 INTER.UNIT Pantoprazole Sodium (Protonix Tab) 40 mg QAM PO 04/30/17 09:00 05/30/17 08:59 05/02/17 07:39 40 MG Enteral Nutritional Formula (Boost Pudding) 1 cup BID PO 04/30/17 21:00 05/30/17 20:59 05/01/17 20:26 1 CUP Amoxicillin/ Clavulanate Potassium (Augmentin Tab) 500 mg HS PO 04/30/17 21:00 05/09/17 20:59 05/01/17 20:25 500 MG Ciprofloxacin (Ciprofloxacin Tab) 750 mg HS PO 04/30/17 21:00 05/09/17 20:59 05/01/17 20:27 750 MG Miconazole Nitrate (Desenex Powder) 1 appln BID EXT 05/01/17 21:00 05/31/17 20:59 05/02/17 07:40 1 APPLN Alprazolam (Xanax Tab) 0.5 mg Q12H PRN PO 05/02/17 11:45 06/01/17 11:44 (Alice Alvarez, P.A.-C.) Saw/examined the patient in room 261 Doing okay, not pleased with being NPO again after midnight Plan for catheter to be placed; dialysis today H/H improved after transfusion Holding Coumadin for now Irrigating wound vac for now, as per wound care (Vero Malcolm, DO)
--- NOTE | 2017-05-02 15:52 | Progress Note ---
Progress Note Date of Service May 02, 2017. Progress Note Patient had a permcath placed yesterday which did not have adequate flows. Will try to reposition today or exchange if needed. I have discussed the risks options and benefits of the procedure with the patient. The patient understands the risks options and benefits and agrees to the procedure. I have examined the patient, reviewed the History & Physical and in the interval since the performance of the History & Physical I have noted the following changes of clinical significance: No changes noted
--- NOTE | 2017-05-02 15:52 | Procedure Note ---
Pre-Mod Sedation Assessment General Date of Moderate Sedation: May 02, 2017. Vital Signs: Vital Signs Past 12 Hours Date Time Temp Pulse Resp B/P (MAP) Pulse Ox O2 Delivery O2 Flow Rate FiO2 05/02/17 15:16 36.5 76 20 121/67 (85) 93 05/02/17 08:00 Nasal Cannula 4.0 05/02/17 07:18 36.4 79 20 116/70 (85) 96 4.0 Pre-Sedation Airway Assessment Oral Cavity: Dentures Short Thick Neck: No Hx of Sleep Apnea: No Smoking Status: Former Smoker Mallampati Classification: Class I ASA Classification: Class II Notes The planned sedation has been discussed with the patient and consent obtained. I have identified the patient, determined the appropriateness of sedation and have assessed the patient immediately prior to the procedure. All medicine(s) and interventions are by my order.
[2017-05-02] MEDS ORDERED: MIDAZOLAM HCL 1 MG/ML 2ML VIAL ONE (16:04)
[2017-05-02] MEDS ORDERED: HEPARIN SOD (PORCINE) 5000 UNIT/ML 1 ML VIAL ONE (16:04)
[2017-05-02] MEDS ORDERED: FENTANYL CITRATE INJ 50 MCG/1 ML 2 ML VIAL ONE (16:04)
[2017-05-02] MEDS ORDERED: MIDAZOLAM HCL 1 MG/ML 2ML VIAL IV ONE (16:30)
[2017-05-02] MEDS ORDERED: FENTANYL CITRATE INJ 50 MCG/1 ML 2 ML VIAL IV ONE (16:30)
[2017-05-02] MEDS ORDERED: LIDOCAINE HCL 1% 20 ML VIAL INJ ONE (16:36)
[2017-05-02] MEDS ORDERED: HEPARIN SOD (PORCINE) 5000 UNIT/ML 1 ML VIAL IV ONE (16:40)
[2017-05-02] MEDS ORDERED: OPTIRAY 300 INJ ONE (16:41)
--- NOTE | 2017-05-02 16:42 | [facility] Post Operative Brief Note ---
Immediate Operative Summary Operative Date May 02, 2017. Pre-Operative Diagnosis malfunctioning perm catheter Post-Operative Diagnosis same Procedure(s) Performed Exchange Of Perm Catheter, Right Internal Jugular Vein, Fluoroscopy For Positioning, Moderate Concious Sedation [address] Falk Acid Regenerator Surgeon(s) Elton Marquez Fellow Estimated Blood Loss 1 ml Findings aspirates and flushes easily Specimens A. perm catheter Anesthesia Local with sedation Complication(s) None Disposition
--- NOTE | 2017-05-02 16:42 | Procedure Note ---
Post-Moderate Sedation Plan General Date of Moderate Sedation May 02, 2017. Vital Signs: Vital Signs Past 12 Hours Date Time Temp Pulse Resp B/P (MAP) Pulse Ox O2 Delivery O2 Flow Rate FiO2 05/02/17 15:16 36.5 76 20 121/67 (85) 93 05/02/17 08:00 Nasal Cannula 4.0 05/02/17 07:18 36.4 79 20 116/70 (85) 96 4.0 Review - Discharge Plan Post Moderate Sedation Plan: On clinical assessment, the patient appears to have tolerated the conscious sedation without complications. Patient is recovering as anticipated. Patient will continue to be monitored by nursing and may be discharged when conscious sedation discharge criteria are met.
--- NOTE | 2017-05-02 16:48 | [facility] Operative Report ---
Operative Report Operative Date May 02, 2017. Pre-Operative Diagnosis malfunctioning perm catheter Post-Operative Diagnosis same Procedure(s) Performed Exchange Of Perm Catheter, Right Internal Jugular Vein, Fluoroscopy For Positioning, Moderate Concious Sedation [address] Falk Adult Parole Officer Surgeon(s) Elton Marquez Fellow Estimated Blood Loss 1 ml Findings the permcath was in the innominate vein and then the exchange with a longer permcath placed the tip in the SVC. at the end of the case the catheter pulled back easily and flushed easily. Specimens A. perm catheter Anesthesia Local Disposition Recovery Room / PACU Indications non functional permcath (unable to pull back) Description of Procedure Patient was taken to the angio suite and placed in the supine position. The right side of the neck and chest wall were prepped and draped including the existing permcath in a sterile manner. Local anesthesia was then administered to the appropriate areas of the neck and chest wall. A fluoro image showed the catheter in the innominate vein. A guidewire was then passed centrally under fluoroscopic imaging. The cuf of the permcath was dissected free and the permcath was pulled back over the wire keeping pressure at the base of the neck at the site of entry into the IJ. A 23cm permcath was passed over the guidewire to a central position in the distal superior vena cava. The guidewire and inner catheter was removed. Fluoroscopy was used to confirm placement. The catheter was then sutured in place using nylon sutures. Both ports aspirated and flushed easily and were then packed with heparin. A sterile dressing was applied to the catheter. The patient left the angio suite in good condition and tolerated the procedure well.Dr. Falk was present for the entire case. I attest to the content of the Intraoperative Record and any orders documented therein. Any exceptions are noted below. I, Dr. Falk was present and scrubbed for the entire procedure. I attest to the content of the Intraoperative Record and any orders documented therein. Any exceptions are noted below.
[2017-05-02] MEDS: CIPROFLOXACIN 250 MG TAB PO SCH (21:58)
[2017-05-02] MEDS: AMOXICILLIN/CLAVULANATE TAB 500 MG TAB PO SCH (21:59)
[2017-05-03] VITALS (19 sets, daily range): BP systolic 95–117; BP diastolic 51–68; PULSE 65–91; TEMP 36.5–36.7; O2SAT 91–96
[2017-05-03 07:55] LABS: HEMATOCRIT 28.5 % (37-47); MEAN CELL VOLUME 82.1 fL (80-100); MEAN CORPUSCULAR HEMOGLOBIN 24.2 pg (25-34); MEAN CORPUSCULAR HGB CONC 29.5 g/dl (32-36); PLATELET COUNT 326 K/uL (130-400); RED BLOOD COUNT 3.47 M/uL (4.2-5.4); WHITE BLOOD COUNT 13.65 K/uL (4.8-10.8)
[2017-05-03] MEDS: HYDROCODONE/ACETAMOPHEN 5/325MG TAB PO PRN ×2 (08:08→17:45)
[2017-05-03] MEDS: MICONAZOLE NITRATE POWDER 43 GM EXT SCH ×2 (08:13→21:09)
[2017-05-03] MEDS: TIOTROPIUM BROMIDE 5 PUFF/90 MCG INH INH SCH (08:14)
[2017-05-03] MEDS: BOOST VANILLA PUDDING CUP PO SCH ×2 (08:15→21:08)
[2017-05-03] MEDS: INSULIN ASPART 100 UNITS/ML 3 ML PEN SC SCH ×4 (08:23→21:00)
[2017-05-03] MEDS: INSULIN GLARGINE SOLOSTAR 100 UNITS/ML 3 ML PEN SC SCH ×2 (08:24→21:12)
[2017-05-03 08:28] LABS: BUN/CREATININE RATIO 13.4 (10-20); CALCIUM 9.1 mg/dl (8.5-10.1); CREATININE 3.7 mg/dl (0.60-1.20); POTASSIUM 4.5 mmol/L (3.5-5.1)
[2017-05-03] MEDS: COLLAGENASE OINT 30 GM TUBE EXT SCH (09:00)
--- NOTE | 2017-05-03 11:57 | Dialysis Progress Note ---
Nephrology Dialysis Note Date of Service: May 03, 2017. Subjective seen on rounds 0915 approx; no uncontrolled pain or dyspnea or edema or N Objective Date Time Temp Pulse Resp B/P (MAP) Pulse Ox O2 Delivery O2 Flow Rate FiO2 05/03/17 11:15 78 115/56 05/03/17 11:00 81 110/55 05/03/17 10:45 81 95/51 05/03/17 10:30 82 109/55 05/03/17 10:15 80 117/54 05/03/17 10:00 80 111/56 05/03/17 09:45 80 112/54 05/03/17 09:30 79 112/57 05/03/17 09:15 75 108/54 05/03/17 09:00 79 113/56 05/03/17 08:40 36.6 79 105/55 (72) 05/03/17 07:37 36.7 77 20 105/68 (80) 93 05/03/17 00:02 36.6 91 20 115/68 (84) 91 Nasal Cannula 4.0 05/03/17 00:00 Nasal Cannula 4.0 05/02/17 17:48 36.5 79 18 122/68 (86) 93 79 05/02/17 17:35 36.6 75 18 103/75 (84) Room Air 05/02/17 17:30 98 Nasal Cannula 2.0 05/02/17 17:16 78 16 107/55 98 Nasal Cannula 2.0 05/02/17 17:11 75 19 117/55 98 Nasal Cannula 4.0 05/02/17 17:06 76 21 116/62 98 Nasal Cannula 4.0 05/02/17 17:01 77 18 102/63 100 Nasal Cannula 4.0 05/02/17 16:56 36.4 78 17 108/55 96 Nasal Cannula 4.0 05/02/17 16:42 4 75 103/49 96 Nasal Cannula 4 05/02/17 15:16 36.5 76 20 121/67 (85) 93 Physical Exam: General-aaox3, obese, on 4L 02nc Eyes-no scleral icterus ENT-dry mm Neck-supple Lungs-clear but diminished Heart-distant heart sounds Abdomen-+wound bandaged up, other wound; [address] Extremities-+2 non-pitting edema Neuro-nonfocal Current Inpatient Medications Medications (Trade) Dose Ordered Sig/Tyrone Route Start Time Stop Time Status Last Admin Dose Admin Acetaminophen (Tylenol Tab) 650 mg Q4H PRN PO 04/29/17 16:15 05/29/17 16:14 Ondansetron HCl (Zofran Inj) 4 mg Q6H PRN IV 04/29/17 16:15 05/29/17 16:14 Insulin Glargine (Lantus Solostar Pen) 10 units Q12 SC 04/29/17 21:00 05/29/17 20:59 05/03/17 08:24 10 UNITS Insulin Aspart (novoLOG ASPART) SLIDING SCALE If C... ACHS SC 04/29/17 21:00 05/29/17 20:59 05/03/17 08:23 1 UNITS Glucose (Glucose 40% Gel) 15-30 GRAMS 15 GRAMS... UD PRN PO 04/29/17 16:15 05/29/17 16:14 Glucose (Glucose Chew Tab) 4-8 Tablets 4 Tabl... UD PRN PO 04/29/17 16:15 05/29/17 16:14 Dextrose (Dextrose 50% 50ML Syringe) 25-50ML OF 50% DW IV FOR... UD PRN IV 04/29/17 16:15 05/29/17 16:14 Glucagon (Glucagon Inj) 1 mg UD PRN SQ 04/29/17 16:15 05/29/17 16:14 Miscellaneous (Iv Fluids Completed) 1 ea PRN PRN N/A 04/29/17 16:30 04/29/18 16:29 Ascorbic Acid (Vitamin C Tab) 500 mg BID PO 04/29/17 21:00 05/29/17 20:59 05/02/17 22:00 500 MG Atorvastatin Calcium (Lipitor Tab) 40 mg DAILY PO 04/30/17 09:00 05/30/17 08:59 05/02/17 07:39 40 MG Calcitriol (Rocaltrol Cap) 0.25 mcg MoWeFr@0900 PO 04/30/17 09:00 05/30/17 08:59 05/02/17 07:39 0.25 MCG Collagenase (Santyl Oint) 1 appln DAILY EXT 04/30/17 09:00 05/30/17 08:59 05/02/17 07:40 1 APPLN Cyanocobalamin (Vitamin B-12 Tab) 1,000 mcg DAILY PO 04/30/17 09:00 05/30/17 08:59 05/02/17 07:39 1,000 MCG Docusate Sodium (coLACE CAP) 100 mg BID PO 04/29/17 21:00 05/29/17 20:59 05/02/17 21:58 100 MG Gabapentin (Neurontin Cap) 400 mg BID PO 04/29/17 21:00 05/29/17 20:59 05/02/17 21:59 400 MG Acetaminophen/ Hydrocodone Bitart ([place] 5/325 Tab) 1 tab Q6H PRN PO 04/29/17 16:30 05/13/17 16:29 05/03/17 08:08 1 TAB Levothyroxine Sodium (Synthroid Tab) 125 mcg DAILYBB PO 04/30/17 06:30 05/30/17 06:59 05/02/17 06:12 125 MCG Magnesium Oxide (Mag-Ox Tab) 400 mg BID PO 04/29/17 21:00 05/29/17 20:59 05/02/17 21:58 400 MG Metoprolol Succinate (Toprol Xl Tab) 25 mg DAILY PO 04/30/17 09:00 05/30/17 08:59 05/02/17 07:39 25 MG Prednisone (PredniSONE TAB) 5 mg DAILY PO 04/30/17 09:00 05/30/17 08:59 05/02/17 07:39 5 MG Sertraline HCl (Zoloft Tab) 100 mg DAILY PO 04/30/17 09:00 05/30/17 08:59 05/02/17 07:39 100 MG Tiotropium [place] (Spiriva Handihaler Inhaler) 1 puff DAILY INH 04/30/17 09:00 05/30/17 08:59 05/03/17 08:14 1 PUFF Vitamin B Complex (Vitamin B Complex) 1 tab DAILY PO 04/30/17 09:00 05/30/17 08:59 05/02/17 07:39 1 TAB Cholecalciferol (Vitamin D Tab) 2,000 inter.unit DAILY PO 04/30/17 09:00 05/30/17 08:59 05/02/17 07:39 2,000 INTER.UNIT Pantoprazole Sodium (Protonix Tab) 40 mg QAM PO 04/30/17 09:00 05/30/17 08:59 05/02/17 07:39 40 MG Enteral Nutritional Formula (Boost Pudding) 1 cup BID PO 04/30/17 21:00 05/30/17 20:59 05/03/17 08:15 1 CUP Amoxicillin/ Clavulanate Potassium (Augmentin Tab) 500 mg HS PO 04/30/17 21:00 05/09/17 20:59 05/02/17 21:59 500 MG Ciprofloxacin (Ciprofloxacin Tab) 750 mg HS PO 04/30/17 21:00 05/09/17 20:59 05/02/17 21:58 750 MG Miconazole Nitrate (Desenex Powder) 1 appln BID EXT 05/01/17 21:00 05/31/17 20:59 05/03/17 08:13 1 APPLN Alprazolam (Xanax Tab) 0.5 mg Q12H PRN PO 05/02/17 11:45 06/01/17 11:44 Last 24 Hours Test 05/02/17 15:30 05/02/17 17:38 05/02/17 20:38 05/03/17 07:22 Bedside Glucose 104 mg/dl 108 mg/dl 104 mg/dl 108 mg/dl Test 05/03/17 07:29 05/03/17 11:16 White Blood Count 13.65 K/uL Red Blood Count 3.47 M/uL Hemoglobin 8.4 g/dL Hematocrit 28.5 % Mean Corpuscular Volume 82.1 fL Mean Corpuscular Hemoglobin 24.2 pg Mean Corpuscular Hemoglobin Concent 29.5 g/dl RDW Standard Deviation 60.3 fL RDW Coefficient of Variation 20.2 % Platelet Count 326 K/uL Mean Platelet Volume 8.0 fL Sodium Level 137 mmol/L Potassium Level 4.5 mmol/L Chloride Level 106 mmol/L Carbon Dioxide Level 25 mmol/L Anion Gap 6.0 mmol/L Blood Urea Nitrogen 50 mg/dl Creatinine 3.70 mg/dl Est Creatinine Clear Calc Drug Dose 18.6 ml/min Estimated GFR () 14.4 Estimated GFR (Non- 12.4 BUN/Creatinine Ratio 13.4 Random Glucose 101 mg/dl Calcium Level 9.1 mg/dl Bedside Glucose 95 mg/dl Assessment & Plan 61 yo female with esrd who presented with bleeding of her pannus wound and required stitches to stop the bleeding. pt had issues with tunneled dialysis catheter. exchanged it 05/01 and still running poorly. underwent blood transfusion 05/01 through peripheral line. ESRD-pt with tunneled line; for HD today d/t vasc access issues. next hd tentatively for 05/05 Vasc access malfunction > got tdc exch 05/02; no avf at this time d/t chronic wounds Anemia of renal failure-pt had two units transfused 05/01. epo/venofer w/ hd ad indicated pannus wound> getting new wound vac on new wound on friday.
[2017-05-03] MEDS: LEVOTHYROXINE 125 MCG TAB PO SCH (12:14)
[2017-05-03] MEDS: DOCUSATE SODIUM 100 MG CAP PO SCH ×2 (12:14→21:06)
[2017-05-03] MEDS: ATORVASTATIN 40 MG TAB PO SCH (12:15)
[2017-05-03] MEDS: GABAPENTIN 400 MG CAP PO SCH ×2 (12:16→21:06)
[2017-05-03] MEDS: MAGNESIUM OXIDE 400 MG TAB PO SCH ×2 (12:16→21:07)
[2017-05-03] MEDS: PANTOprazole SOD 40 MG TAB PO SCH (12:17)
[2017-05-03] MEDS: CYANOCOBALAMIN 500 MCG TAB (VIT B-12) PO SCH (12:17)
[2017-05-03] MEDS: VITAMIN B COMPLEX TAB PO SCH (12:17)
[2017-05-03] MEDS: ASCORBIC ACID 500 MG TAB PO SCH ×2 (12:18→21:08)
[2017-05-03] MEDS: SERTRALINE HCL 100 MG TAB PO SCH (12:19)
[2017-05-03] MEDS: CHOLECALCIFEROL 1000 INTER.UNIT TAB PO SCH (12:19)
[2017-05-03] MEDS: METOPROLOL SUCC 25MG EXT REL TAB PO SCH (12:22)
--- NOTE | 2017-05-03 12:24 | Progress Note ---
Subjective Date of Service: May 03, 2017. Subjective Pt evaluation today including: conversation w/ patient, physical exam, lab review, review of studies, review of inpatient medication list Saw/examined the patient in room 261 She's doing well; currently receiving dialysis, catheter working irrigation vac in place Problem List Medical Problems: (1) Acute exacerbation of CHF (congestive heart failure) Status: Acute (2) Acute hemorrhage Status: Acute (3) FRED (acute kidney injury) Status: Acute (4) Anemia Status: Acute (5) CHF (congestive heart failure) Status: Acute (6) Congestive heart failure Status: Acute (7) Congestive heart failure Status: Acute (8) Congestive heart failure Status: Acute (9) COPD exacerbation Status: Acute (10) Hypoxia Status: Acute (11) Hypoxia Status: Acute (12) Leukocytosis Status: Acute (13) Leukocytosis Status: Acute (14) Low grade fever Status: Acute (15) Low grade fever Status: Acute (16) Pleural effusion, right Status: Acute (17) Pressure ulcer Status: Acute (18) Rapid atrial fibrillation Status: Acute (19) Rapid atrial fibrillation Status: Acute (20) Renal insufficiency Status: Acute (21) Sepsis Status: Acute (22) Sepsis associated hypotension Status: Acute (23) Severe sepsis with acute organ dysfunction Status: Acute (24) Shortness of breath Status: Acute (25) Supratherapeutic INR Status: Acute Review of Systems Constitutional: No fever, No chills Respiratory: No shortness of breath Cardiac: No chest pain Abdomen: No pain, No nausea, No vomiting, No diarrhea Medications Current Inpatient Medications Medications (Trade) Dose Ordered Sig/Tyrone Route Start Time Stop Time Status Last Admin Dose Admin Acetaminophen (Tylenol Tab) 650 mg Q4H PRN PO 04/29/17 16:15 05/29/17 16:14 Ondansetron HCl (Zofran Inj) 4 mg Q6H PRN IV 04/29/17 16:15 05/29/17 16:14 Insulin Glargine (Lantus Solostar Pen) 10 units Q12 SC 04/29/17 21:00 05/29/17 20:59 05/03/17 08:24 10 UNITS Insulin Aspart (novoLOG ASPART) SLIDING SCALE If C... ACHS SC 04/29/17 21:00 05/29/17 20:59 05/03/17 08:23 1 UNITS Glucose (Glucose 40% Gel) 15-30 GRAMS 15 GRAMS... UD PRN PO 04/29/17 16:15 05/29/17 16:14 Glucose (Glucose Chew Tab) 4-8 Tablets 4 Tabl... UD PRN PO 04/29/17 16:15 05/29/17 16:14 Dextrose (Dextrose 50% 50ML Syringe) 25-50ML OF 50% DW IV FOR... UD PRN IV 04/29/17 16:15 05/29/17 16:14 Glucagon (Glucagon Inj) 1 mg UD PRN SQ 04/29/17 16:15 05/29/17 16:14 Miscellaneous (Iv Fluids Completed) 1 ea PRN PRN N/A 04/29/17 16:30 04/29/18 16:29 Ascorbic Acid (Vitamin C Tab) 500 mg BID PO 04/29/17 21:00 05/29/17 20:59 05/02/17 22:00 500 MG Atorvastatin Calcium (Lipitor Tab) 40 mg DAILY PO 04/30/17 09:00 05/30/17 08:59 05/02/17 07:39 40 MG Calcitriol (Rocaltrol Cap) 0.25 mcg MoWeFr@0900 PO 04/30/17 09:00 05/30/17 08:59 05/02/17 07:39 0.25 MCG Collagenase (Santyl Oint) 1 appln DAILY EXT 04/30/17 09:00 05/30/17 08:59 05/02/17 07:40 1 APPLN Cyanocobalamin (Vitamin B-12 Tab) 1,000 mcg DAILY PO 04/30/17 09:00 05/30/17 08:59 05/02/17 07:39 1,000 MCG Docusate Sodium (coLACE CAP) 100 mg BID PO 04/29/17 21:00 05/29/17 20:59 05/02/17 21:58 100 MG Gabapentin (Neurontin Cap) 400 mg BID PO 04/29/17 21:00 05/29/17 20:59 05/02/17 21:59 400 MG Acetaminophen/ Hydrocodone Bitart ([place] 5/325 Tab) 1 tab Q6H PRN PO 04/29/17 16:30 05/13/17 16:29 8/19/17 08:08 1 TAB Levothyroxine Sodium (Synthroid Tab) 125 mcg DAILYBB PO 04/30/17 06:30 05/30/17 06:59 05/02/17 06:12 125 MCG Magnesium Oxide (Mag-Ox Tab) 400 mg BID PO 04/29/17 21:00 05/29/17 20:59 05/02/17 21:58 400 MG Metoprolol Succinate (Toprol Xl Tab) 25 mg DAILY PO 04/30/17 09:00 05/30/17 08:59 05/02/17 07:39 25 MG Prednisone (PredniSONE TAB) 5 mg DAILY PO 04/30/17 09:00 05/30/17 08:59 05/02/17 07:39 5 MG Sertraline HCl (Zoloft Tab) 100 mg DAILY PO 04/30/17 09:00 05/30/17 08:59 05/02/17 07:39 100 MG Tiotropium [place] (Spiriva Handihaler Inhaler) 1 puff DAILY INH 04/30/17 09:00 05/30/17 08:59 05/03/17 08:14 1 PUFF Vitamin B Complex (Vitamin B Complex) 1 tab DAILY PO 04/30/17 09:00 05/30/17 08:59 05/02/17 07:39 1 TAB Cholecalciferol (Vitamin D Tab) 2,000 inter.unit DAILY PO 04/30/17 09:00 05/30/17 08:59 05/02/17 07:39 2,000 INTER.UNIT Pantoprazole Sodium (Protonix Tab) 40 mg QAM PO 04/30/17 09:00 05/30/17 08:59 05/02/17 07:39 40 MG Enteral Nutritional Formula (Boost Pudding) 1 cup BID PO 04/30/17 21:00 05/30/17 20:59 05/03/17 08:15 1 CUP Amoxicillin/ Clavulanate Potassium (Augmentin Tab) 500 mg HS PO 04/30/17 21:00 05/09/17 20:59 05/02/17 21:59 500 MG Ciprofloxacin (Ciprofloxacin Tab) 750 mg HS PO 04/30/17 21:00 05/09/17 20:59 05/02/17 21:58 750 MG Miconazole Nitrate (Desenex Powder) 1 appln BID EXT 05/01/17 21:00 05/31/17 20:59 05/03/17 08:13 1 APPLN Alprazolam (Xanax Tab) 0.5 mg Q12H PRN PO 05/02/17 11:45 06/01/17 11:44 Objective Vital Signs Date Time Temp Pulse Resp B/P (MAP) Pulse Ox O2 Delivery O2 Flow Rate FiO2 05/03/17 11:15 78 115/56 05/03/17 11:00 81 110/55 05/03/17 10:45 81 95/51 05/03/17 10:30 82 109/55 05/03/17 10:15 80 117/54 05/03/17 10:00 80 111/56 05/03/17 09:45 80 112/54 05/03/17 09:30 79 112/57 05/03/17 09:15 75 108/54 05/03/17 09:00 79 113/56 05/03/17 08:40 36.6 79 105/55 (72) 05/03/17 07:37 36.7 77 20 105/68 (80) 93 05/03/17 00:02 36.6 91 20 115/68 (84) 91 Nasal Cannula 4.0 05/03/17 00:00 Nasal Cannula 4.0 05/02/17 17:48 36.5 79 18 122/68 (86) 93 79 05/02/17 17:35 36.6 75 18 103/75 (84) Room Air 05/02/17 17:30 98 Nasal Cannula 2.0 05/02/17 17:16 78 16 107/55 98 Nasal Cannula 2.0 05/02/17 17:11 75 19 117/55 98 Nasal Cannula 4.0 05/02/17 17:06 76 21 116/62 98 Nasal Cannula 4.0 05/02/17 17:01 77 18 102/63 100 Nasal Cannula 4.0 05/02/17 16:56 36.4 78 17 108/55 96 Nasal Cannula 4.0 05/02/17 16:42 4 75 103/49 96 Nasal Cannula 4 05/02/17 15:16 36.5 76 20 121/67 (85) 93 Physical Exam General Appearance: no apparent distress, + obese Respiratory/Chest: lungs clear, normal breath sounds, no respiratory distress, no accessory muscle use Cardiovascular: regular rate, rhythm, no murmur Abdomen: + pertinent finding (+irrigating wound vac in place) Extremities: + pertinent finding (venous stasis dermatitis) Neurologic/Psychiatric: no motor/sensory deficits, alert, normal mood/affect Laboratory Results Last 24 Hours Test 05/02/17 15:30 05/02/17 17:38 05/02/17 20:38 05/03/17 07:22 Bedside Glucose 104 mg/dl 108 mg/dl 104 mg/dl 108 mg/dl Test 05/03/17 07:29 05/03/17 11:16 White Blood Count 13.65 K/uL Red Blood Count 3.47 M/uL Hemoglobin 8.4 g/dL Hematocrit 28.5 % Mean Corpuscular Volume 82.1 fL Mean Corpuscular Hemoglobin 24.2 pg Mean Corpuscular Hemoglobin Concent 29.5 g/dl RDW Standard Deviation 60.3 fL RDW Coefficient of Variation 20.2 % Platelet Count 326 K/uL Mean Platelet Volume 8.0 fL Sodium Level 137 mmol/L Potassium Level 4.5 mmol/L Chloride Level 106 mmol/L Carbon Dioxide Level 25 mmol/L Anion Gap 6.0 mmol/L Blood Urea Nitrogen 50 mg/dl Creatinine 3.70 mg/dl Est Creatinine Clear Calc Drug Dose 18.6 ml/min Estimated GFR () 14.4 Estimated GFR (Non- 12.4 BUN/Creatinine Ratio 13.4 Random Glucose 101 mg/dl Calcium Level 9.1 mg/dl Bedside Glucose 95 mg/dl Assessment and Plan This is a 61yo F with a PMH of chronic wounds, Paroxysmal A Fib (on coumadin), DM II, ESRD (requiring dialysis), HTN and COPD who presents with bleeding from a pre-existing wound on L lower abdomen. Wound on Lower Left Abdomen: 05/03 irrig[address] wound vac in place Hgb = 8.4, s/p two units PRBCs wound care consult appreciated continue home antibiotics Chronic wounds; b/l LE Continue Cipro and Augmentin Wound care to re-dress in AM All wounds visualized and re-bandaged Paroxysmal A Fib: Rate controlled on beta reyes, will continue On Coumadin, subtherapeutic INR of 1.5 Hold Coumadin and follow up INR tomorrow ESRD (on dialysis): catheter placed yesterday receiving dialysis today (05/03) and catheter is working COPD: -Stable. Denies dyspnea, SOB, wheezing -Continue home inhalers -O2 PRN by protocol DM II: - Hgb a1c of 8.1 on 12/2016 - Held home meds - Continue basal / SSI while in-patient - BG checks AC and qHS Hypothyroidism: - Continue Levothyroxine DVT Ppx: on coumadin Code status: FULL PCP: Carlos Dispo: Plan to return home once medically stable. Daughter coordinates medical care.
[2017-05-03] MEDS ORDERED: BENZONATATE 100MG CAP PO PRN (17:45)
[2017-05-03] MEDS ORDERED: NURSING VERBAL MED ORDER ONE (17:45)
[2017-05-03] MEDS: CIPROFLOXACIN 250 MG TAB PO SCH (21:08)
[2017-05-03] MEDS: AMOXICILLIN/CLAVULANATE TAB 500 MG TAB PO SCH (21:09)
[2017-05-04] VITALS: BP 104/70; PULSE 94; TEMP 36.5; O2SAT 93; O2SAT 94
[2017-05-04] MEDS: HYDROCODONE/ACETAMOPHEN 5/325MG TAB PO PRN ×4 (01:32→23:05)
[2017-05-04 07:00] LABS: BUN/CREATININE RATIO 12.3 (10-20); CALCIUM 8.6 mg/dl (8.5-10.1); CREATININE 2.7 mg/dl (0.60-1.20); POTASSIUM 4.3 mmol/L (3.5-5.1)
[2017-05-04] MEDS: LEVOTHYROXINE 125 MCG TAB PO SCH (07:10)
[2017-05-04 07:11] LABS: HEMATOCRIT 27.3 % (37-47); MEAN CORPUSCULAR HGB CONC 28.9 g/dl (32-36); MEAN PLATELET VOLUME 7.9 fL (7.4-10.4); PLATELET COUNT 282 K/uL (130-400); RED BLOOD COUNT 3.29 M/uL (4.2-5.4); WHITE BLOOD COUNT 11.92 K/uL (4.8-10.8)
[2017-05-04] MEDS: COLLAGENASE OINT 30 GM TUBE EXT SCH (07:12)
[2017-05-04 07:38] VITALS: BP 105/65; PULSE 74; TEMP 36.4; O2SAT 97
[2017-05-04] MEDS: INSULIN ASPART 100 UNITS/ML 3 ML PEN SC SCH ×4 (08:45→20:56)
[2017-05-04] MEDS: INSULIN GLARGINE SOLOSTAR 100 UNITS/ML 3 ML PEN SC SCH ×2 (08:46→20:57)
[2017-05-04] MEDS: TIOTROPIUM BROMIDE 5 PUFF/90 MCG INH INH SCH (08:47)
[2017-05-04] MEDS: BOOST VANILLA PUDDING CUP PO SCH ×2 (08:48→20:53)
[2017-05-04] MEDS: ATORVASTATIN 40 MG TAB PO SCH (08:50)
[2017-05-04] MEDS: DOCUSATE SODIUM 100 MG CAP PO SCH ×2 (08:50→21:00)
[2017-05-04] MEDS: GABAPENTIN 400 MG CAP PO SCH ×2 (08:51→20:59)
[2017-05-04] MEDS: MAGNESIUM OXIDE 400 MG TAB PO SCH ×2 (08:51→20:59)
[2017-05-04] MEDS: VITAMIN B COMPLEX TAB PO SCH (08:52)
[2017-05-04] MEDS: METOPROLOL SUCC 25MG EXT REL TAB PO SCH (08:52)
[2017-05-04] MEDS: PANTOprazole SOD 40 MG TAB PO SCH (08:52)
[2017-05-04] MEDS: CHOLECALCIFEROL 1000 INTER.UNIT TAB PO SCH (08:53)
[2017-05-04] MEDS: ASCORBIC ACID 500 MG TAB PO SCH ×2 (08:53→20:55)
[2017-05-04] MEDS: CYANOCOBALAMIN 500 MCG TAB (VIT B-12) PO SCH (08:53)
[2017-05-04] MEDS: SERTRALINE HCL 100 MG TAB PO SCH (08:54)
[2017-05-04] MEDS: MICONAZOLE NITRATE POWDER 43 GM EXT SCH ×2 (08:56→20:51)
--- NOTE | 2017-05-04 10:19 | Progress Note ---
Subjective Date of Service: May 04, 2017. Subjective Pt evaluation today including: conversation w/ patient, physical exam, lab review, review of studies, review of inpatient medication list Saw/examined the patient in room 261 No problems/issues to note today Eager to go home; had dialysis yesterday, no problems with that Slept well last night, good PO intake Problem List Medical Problems: (1) Acute exacerbation of CHF (congestive heart failure) Status: Acute (2) Acute hemorrhage Status: Acute (3) FRED (acute kidney injury) Status: Acute (4) Anemia Status: Acute (5) CHF (congestive heart failure) Status: Acute (6) Congestive heart failure Status: Acute (7) Congestive heart failure Status: Acute (8) Congestive heart failure Status: Acute (9) COPD exacerbation Status: Acute (10) Hypoxia Status: Acute (11) Hypoxia Status: Acute (12) Leukocytosis Status: Acute (13) Leukocytosis Status: Acute (14) Low grade fever Status: Acute (15) Low grade fever Status: Acute (16) Pleural effusion, right Status: Acute (17) Pressure ulcer Status: Acute (18) Rapid atrial fibrillation Status: Acute (19) Rapid atrial fibrillation Status: Acute (20) Renal insufficiency Status: Acute (21) Sepsis Status: Acute (22) Sepsis associated hypotension Status: Acute (23) Severe sepsis with acute organ dysfunction Status: Acute (24) Shortness of breath Status: Acute (25) Supratherapeutic INR Status: Acute Review of Systems Constitutional: No fever, No chills Respiratory: + cough, No sputum, No shortness of breath Cardiac: No chest pain Abdomen: No pain, No nausea, No vomiting, No diarrhea Medications Current Inpatient Medications Medications (Trade) Dose Ordered Sig/Tyrone Route Start Time Stop Time Status Last Admin Dose Admin Acetaminophen (Tylenol Tab) 650 mg Q4H PRN PO 04/29/17 16:15 05/29/17 16:14 Ondansetron HCl (Zofran Inj) 4 mg Q6H PRN IV 04/29/17 16:15 05/29/17 16:14 Insulin Glargine (Lantus Solostar Pen) 10 units Q12 SC 04/29/17 21:00 05/29/17 20:59 05/04/17 08:46 10 UNITS Insulin Aspart (novoLOG ASPART) SLIDING SCALE If C... ACHS SC 04/29/17 21:00 05/29/17 20:59 05/04/17 08:45 3 UNITS Glucose (Glucose 40% Gel) 15-30 GRAMS 15 GRAMS... UD PRN PO 04/29/17 16:15 05/29/17 16:14 Glucose (Glucose Chew Tab) 4-8 Tablets 4 Tabl... UD PRN PO 04/29/17 16:15 05/29/17 16:14 Dextrose (Dextrose 50% 50ML Syringe) 25-50ML OF 50% DW IV FOR... UD PRN IV 04/29/17 16:15 05/29/17 16:14 Glucagon (Glucagon Inj) 1 mg UD PRN SQ 04/29/17 16:15 05/29/17 16:14 Miscellaneous (Iv Fluids Completed) 1 ea PRN PRN N/A 04/29/17 16:30 04/29/18 16:29 Ascorbic Acid (Vitamin C Tab) 500 mg BID PO 04/29/17 21:00 05/29/17 20:59 05/04/17 08:53 500 MG Atorvastatin Calcium (Lipitor Tab) 40 mg DAILY PO 04/30/17 09:00 05/30/17 08:59 05/04/17 08:50 40 MG Calcitriol (Rocaltrol Cap) 0.25 mcg MoWeFr@0900 PO 04/30/17 09:00 05/30/17 08:59 05/02/17 07:39 0.25 MCG Collagenase (Santyl Oint) 1 appln DAILY EXT 04/30/17 09:00 05/30/17 08:59 05/02/17 07:40 1 APPLN Cyanocobalamin (Vitamin B-12 Tab) 1,000 mcg DAILY PO 04/30/17 09:00 05/30/17 08:59 05/04/17 08:53 1,000 MCG Docusate Sodium (coLACE CAP) 100 mg BID PO 04/29/17 21:00 05/29/17 20:59 05/04/17 08:50 100 MG Gabapentin (Neurontin Cap) 400 mg BID PO 04/29/17 21:00 05/29/17 20:59 05/04/17 08:51 400 MG Acetaminophen/ Hydrocodone Bitart (O[place] 5/325 Tab) 1 tab Q6H PRN PO 04/29/17 16:30 05/13/17 16:29 05/04/17 08:55 1 TAB Levothyroxine Sodium (Synthroid Tab) 125 mcg DAILYBB PO 04/30/17 06:30 05/30/17 06:59 05/04/17 07:10 125 MCG Magnesium Oxide (Mag-Ox Tab) 400 mg BID PO 04/29/17 21:00 05/29/17 20:59 05/04/17 08:51 400 MG Metoprolol Succinate (Toprol Xl Tab) 25 mg DAILY PO 04/30/17 09:00 05/30/17 08:59 05/04/17 08:52 25 MG Prednisone (PredniSONE TAB) 5 mg DAILY PO 04/30/17 09:00 05/30/17 08:59 05/04/17 08:51 5 MG Sertraline HCl (Zoloft Tab) 100 mg DAILY PO 04/30/17 09:00 05/30/17 08:59 05/04/17 08:54 100 MG Tiotropium [place] (Spiriva Handihaler Inhaler) 1 puff DAILY INH 04/30/17 09:00 05/30/17 08:59 05/04/17 08:47 1 PUFF Vitamin B Complex (Vitamin B Complex) 1 tab DAILY PO 04/30/17 09:00 05/30/17 08:59 05/04/17 08:52 1 TAB Cholecalciferol (Vitamin D Tab) 2,000 inter.unit DAILY PO 04/30/17 09:00 05/30/17 08:59 05/04/17 08:53 2,000 INTER.UNIT Pantoprazole Sodium (Protonix Tab) 40 mg QAM PO 04/30/17 09:00 05/30/17 08:59 05/04/17 08:52 40 MG Enteral Nutritional Formula (Boost Pudding) 1 cup BID PO 04/30/17 21:00 05/30/17 20:59 05/04/17 08:48 1 CUP Amoxicillin/ Clavulanate Potassium (Augmentin Tab) 500 mg HS PO 04/30/17 21:00 05/09/17 20:59 05/03/17 21:09 500 MG Ciprofloxacin (Ciprofloxacin Tab) 750 mg HS PO 04/30/17 21:00 05/09/17 20:59 05/03/17 21:08 750 MG Miconazole Nitrate (Desenex Powder) 1 appln BID EXT 05/01/17 21:00 05/31/17 20:59 05/04/17 08:56 1 APPLN Alprazolam (Xanax Tab) 0.5 mg Q12H PRN PO 05/02/17 11:45 06/01/17 11:44 Benzonatate (Tessalon Perles Cap) 100 mg TID PRN PO 05/03/17 17:45 06/02/17 17:44 Objective Vital Signs Date Time Temp Pulse Resp B/P (MAP) Pulse Ox O2 Delivery O2 Flow Rate FiO2 05/04/17 07:38 36.4 74 20 105/65 (78) 97 05/04/17 00:00 36.5 94 20 104/70 (81) 94 4.0 05/04/17 00:00 93 Nasal Cannula 4.0 05/03/17 17:10 93 Nasal Cannula 4.0 05/03/17 14:53 36.7 65 20 112/56 (74) 96 05/03/17 12:25 36.5 76 105/57 (73) 05/03/17 11:45 78 113/55 05/03/17 11:30 77 108/52 05/03/17 11:15 78 115/56 05/03/17 11:00 81 110/55 05/03/17 10:45 81 95/51 05/03/17 10:30 82 109/55 05/03/17 10:15 80 117/54 Physical Exam General Appearance: no apparent distress, + obese Respiratory/Chest: lungs clear, normal breath sounds, no respiratory distress, no accessory muscle use Cardiovascular: regular rate, rhythm, no edema, no murmur Abdomen: + pertinent finding (+irrigating wound vacs in place) Laboratory Results Last 24 Hours Test 05/03/17 11:16 05/03/17 16:20 05/03/17 20:26 05/04/17 06:13 Bedside Glucose 95 mg/dl 137 mg/dl 134 mg/dl White Blood Count 11.92 K/uL Red Blood Count 3.29 M/uL Hemoglobin 7.9 g/dL Hematocrit 27.3 % Mean Corpuscular Volume 83.0 fL Mean Corpuscular Hemoglobin 24.0 pg Mean Corpuscular Hemoglobin Concent 28.9 g/dl RDW Standard Deviation 61.2 fL RDW Coefficient of Variation 20.3 % Platelet Count 282 K/uL Mean Platelet Volume 7.9 fL Sodium Level 137 mmol/L Potassium Level 4.3 mmol/L Chloride Level 104 mmol/L Carbon Dioxide Level 27 mmol/L Anion Gap 6.0 mmol/L Blood Urea Nitrogen 33 mg/dl Creatinine 2.70 mg/dl Est Creatinine Clear Calc Drug Dose 25.3 ml/min Estimated GFR () 21.0 Estimated GFR (Non- 18.2 BUN/Creatinine Ratio 12.3 Random Glucose 91 mg/dl Calcium Level 8.6 mg/dl Assessment and Plan This is a 61yo F with a PMH of chronic wounds, Paroxysmal A Fib (on coumadin), DM II, ESRD (requiring dialysis), HTN and COPD who presents with bleeding from a pre-existing wound on L lower abdomen. Wound on Lower Left Abdomen: 05/04 irrigating wound vacs in place Hgb 7.9 today, monitor in AM 05/03 irrigating wound vac in place Hgb = 8.4, s/p two units PRBCs wound care consult appreciated continue home antibiotics Chronic wounds; b/l LE Continue Cipro and Augmentin Wound care to re-dress in AM All wounds visualized and re-bandaged Paroxysmal A Fib: Rate controlled on beta reyes, will continue On Coumadin, subtherapeutic INR of 1.5 Hold Coumadin and follow up INR tomorrow ESRD (on dialysis): catheter placed yesterday receiving dialysis today (05/03) and catheter is working COPD: -Stable. Denies dyspnea, SOB, wheezing -Continue home inhalers -O2 PRN by protocol DM II: - Hgb a1c of 8.1 on 12/2016 - Held home meds - Continue basal / SSI while in-patient - BG checks AC and qHS Hypothyroidism: - Continue Levothyroxine DVT Ppx: on coumadin Code status: FULL PCP: Carlos Dispo: Plan to return home once medically stable. Daughter coordinates medical care.
[2017-05-04 13:09] LABS: HEMATOCRIT 30.7 % (37-47)
[2017-05-04 15:10] VITALS: BP 111/77; PULSE 74; TEMP 36.3; O2SAT 98
[2017-05-04] MEDS: CIPROFLOXACIN 250 MG TAB PO SCH (20:53)
[2017-05-04] MEDS: AMOXICILLIN/CLAVULANATE TAB 500 MG TAB PO SCH (20:58)
[2017-05-05] VITALS (21 sets, daily range): BP systolic 84–130; BP diastolic 44–78; PULSE 80–94; TEMP 36.4–36.9; O2SAT 93–100
[2017-05-05] MEDS: HYDROCODONE/ACETAMOPHEN 5/325MG TAB PO PRN ×3 (05:16→20:10)
[2017-05-05] MEDS: LEVOTHYROXINE 125 MCG TAB PO SCH (06:24)
[2017-05-05] MEDS: COLLAGENASE OINT 30 GM TUBE EXT SCH (07:05)
[2017-05-05] MEDS ORDERED: EPOETIN ALFA 10,000 UNITS/ML VIAL IV. ONE (07:45)
[2017-05-05] MEDS ORDERED: HEPARIN SOD (PORCINE) 1000 UNIT/ML 10 ML VIAL IV SCH ×2 (07:45)
[2017-05-05 07:47] LABS: HEMATOCRIT 29.1 % (37-47); MEAN CELL VOLUME 83.4 fL (80-100); MEAN CORPUSCULAR HEMOGLOBIN 24.6 pg (25-34); MEAN CORPUSCULAR HGB CONC 29.6 g/dl (32-36); MEAN PLATELET VOLUME 8.3 fL (7.4-10.4); PLATELET COUNT 338 K/uL (130-400); RED BLOOD COUNT 3.49 M/uL (4.2-5.4); WHITE BLOOD COUNT 14.61 K/uL (4.8-10.8)
[2017-05-05 08:17] LABS: TOTAL IRON BINDING CAPACITY 247 mcg/dl (250-450)
[2017-05-05] MEDS ORDERED: EPOETIN ALFA INJ 12,000 UNITS in SYRINGE 0 ML IV. SCH (08:30)
[2017-05-05] MEDS: INSULIN ASPART 100 UNITS/ML 3 ML PEN SC SCH ×4 (08:37→20:16)
[2017-05-05] MEDS: INSULIN GLARGINE SOLOSTAR 100 UNITS/ML 3 ML PEN SC SCH ×2 (08:38→20:21)
[2017-05-05] MEDS: MICONAZOLE NITRATE POWDER 43 GM EXT SCH ×2 (08:42→20:14)
[2017-05-05] MEDS: METOPROLOL SUCC 25MG EXT REL TAB PO SCH (09:00)
[2017-05-05] MEDS: BOOST VANILLA PUDDING CUP PO SCH ×2 (09:00→20:12)
[2017-05-05] MEDS: TIOTROPIUM BROMIDE 5 PUFF/90 MCG INH INH SCH (09:33)
[2017-05-05] MEDS: DOCUSATE SODIUM 100 MG CAP PO SCH ×2 (09:37→20:15)
[2017-05-05] MEDS: MAGNESIUM OXIDE 400 MG TAB PO SCH ×2 (09:38→20:15)
[2017-05-05] MEDS: GABAPENTIN 400 MG CAP PO SCH ×2 (09:39→20:15)
[2017-05-05] MEDS: CALCITRIOL 0.25 MCG CAP PO SCH (09:40)
[2017-05-05] MEDS: ASCORBIC ACID 500 MG TAB PO SCH ×2 (09:40→20:16)
--- NOTE | 2017-05-05 10:03 | Nephrology Progress Note ---
Nephrology Progress Note Date of Service: May 05, 2017. Subjective seen on rounds 0945 approx; no uncontrolled pain or dyspnea or edema or N; apparently complained to another provider earlier in day about LE pain and for dopplers Objective Date Time Temp Pulse Resp B/P (MAP) Pulse Ox O2 Delivery O2 Flow Rate FiO2 05/05/17 08:00 Nasal Cannula 4.0 05/05/17 07:34 36.6 84 20 118/55 (76) 95 05/05/17 00:00 36.7 86 20 117/70 (86) 95 4.0 05/05/17 00:00 93 Nasal Cannula 4.0 05/04/17 16:00 Nasal Cannula 4.0 05/04/17 15:10 36.3 74 20 111/77 (88) 98 Physical Exam: General-aaox3, obese, on 4L 02nc, up in chair Eyes-no scleral icterus ENT-dry mm Neck-supple Lungs-clear but diminished Heart-distant heart sounds Abdomen-+wound bandaged up, other wound; [address] Extremities-+2 non-pitting edema Neuro-nonfocal Current Inpatient Medications Medications (Trade) Dose Ordered Sig/Tyrone Route Start Time Stop Time Status Last Admin Dose Admin Acetaminophen (Tylenol Tab) 650 mg Q4H PRN PO 04/29/17 16:15 05/29/17 16:14 Ondansetron HCl (Zofran Inj) 4 mg Q6H PRN IV 04/29/17 16:15 05/29/17 16:14 Insulin Glargine (Lantus Solostar Pen) 10 units Q12 SC 04/29/17 21:00 05/29/17 20:59 05/05/17 08:38 10 UNITS Insulin Aspart (novoLOG ASPART) SLIDING SCALE If C... ACHS SC 04/29/17 21:00 05/29/17 20:59 05/05/17 08:37 3 UNITS Glucose (Glucose 40% Gel) 15-30 GRAMS 15 GRAMS... UD PRN PO 04/29/17 16:15 05/29/17 16:14 Glucose (Glucose Chew Tab) 4-8 Tablets 4 Tabl... UD PRN PO 04/29/17 16:15 05/29/17 16:14 Dextrose (Dextrose 50% 50ML Syringe) 25-50ML OF 50% DW IV FOR... UD PRN IV 04/29/17 16:15 05/29/17 16:14 Glucagon (Glucagon Inj) 1 mg UD PRN SQ 04/29/17 16:15 05/29/17 16:14 Miscellaneous (Iv Fluids Completed) 1 ea PRN PRN N/A 04/29/17 16:30 04/29/18 16:29 Ascorbic Acid (Vitamin C Tab) 500 mg BID PO 04/29/17 21:00 05/29/17 20:59 05/05/17 09:40 500 MG Atorvastatin Calcium (Lipitor Tab) 40 mg DAILY PO 04/30/17 09:00 05/30/17 08:59 05/04/17 08:50 40 MG Calcitriol (Rocaltrol Cap) 0.25 mcg MoWeFr@0900 PO 04/30/17 09:00 05/30/17 08:59 05/05/17 09:40 0.25 MCG Collagenase (Santyl Oint) 1 appln DAILY EXT 04/30/17 09:00 05/30/17 08:59 05/02/17 07:40 1 APPLN Cyanocobalamin (Vitamin B-12 Tab) 1,000 mcg DAILY PO 04/30/17 09:00 05/30/17 08:59 05/04/17 08:53 1,000 MCG Docusate Sodium (coLACE CAP) 100 mg BID PO 04/29/17 21:00 05/29/17 20:59 05/05/17 09:37 100 MG Gabapentin (Neurontin Cap) 400 mg BID PO 04/29/17 21:00 05/29/17 20:59 05/05/17 09:39 400 MG Acetaminophen/ Hydrocodone Bitart ([place] 5/325 Tab) 1 tab Q6H PRN PO 04/29/17 16:30 05/13/17 16:29 05/05/17 05:16 1 TAB Levothyroxine Sodium (Synthroid Tab) 125 mcg DAILYBB PO 04/30/17 06:30 05/30/17 06:59 05/05/17 06:24 125 MCG Magnesium Oxide (Mag-Ox Tab) 400 mg BID PO 04/29/17 21:00 05/29/17 20:59 05/05/17 09:38 400 MG Metoprolol Succinate (Toprol Xl Tab) 25 mg DAILY PO 04/30/17 09:00 05/30/17 08:59 05/04/17 08:52 25 MG Prednisone (PredniSONE TAB) 5 mg DAILY PO 04/30/17 09:00 05/30/17 08:59 05/04/17 08:51 5 MG Sertraline HCl (Zoloft Tab) 100 mg DAILY PO 04/30/17 09:00 05/30/17 08:59 05/04/17 08:54 100 MG Tiotropium [place] (Spiriva Handihaler Inhaler) 1 puff DAILY INH 04/30/17 09:00 05/30/17 08:59 05/05/17 09:33 1 PUFF Vitamin B Complex (Vitamin B Complex) 1 tab DAILY PO 04/30/17 09:00 05/30/17 08:59 05/04/17 08:52 1 TAB Cholecalciferol (Vitamin D Tab) 2,000 inter.unit DAILY PO 04/30/17 09:00 05/30/17 08:59 05/04/17 08:53 2,000 INTER.UNIT Pantoprazole Sodium (Protonix Tab) 40 mg QAM PO 04/30/17 09:00 05/30/17 08:59 05/04/17 08:52 40 MG Enteral Nutritional Formula (Boost Pudding) 1 cup BID PO 04/30/17 21:00 05/30/17 20:59 05/04/17 20:53 1 CUP Amoxicillin/ Clavulanate Potassium (Augmentin Tab) 500 mg HS PO 04/30/17 21:00 05/09/17 20:59 05/04/17 20:58 500 MG Ciprofloxacin (Ciprofloxacin Tab) 750 mg HS PO 04/30/17 21:00 05/09/17 20:59 05/04/17 20:53 750 MG Miconazole Nitrate (Desenex Powder) 1 appln BID EXT 05/01/17 21:00 05/31/17 20:59 05/05/17 08:42 1 APPLN Alprazolam (Xanax Tab) 0.5 mg Q12H PRN PO 05/02/17 11:45 06/01/17 11:44 Benzonatate (Tessalon Perles Cap) 100 mg TID PRN PO 05/03/17 17:45 06/02/17 17:44 Epoetin Faisal 59752 units/ Syringe 0.6 ml @ 1 mls/min TODAY@0830 IV. 05/05/17 08:30 05/05/17 12:30 Last 24 Hours Test 05/04/17 11:13 05/04/17 12:50 05/04/17 16:17 05/04/17 20:21 Bedside Glucose 129 mg/dl 155 mg/dl 211 mg/dl Hemoglobin 9.2 g/dL Hematocrit 30.7 % Test 05/05/17 07:24 05/05/17 07:30 05/05/17 07:38 Bedside Glucose 115 mg/dl White Blood Count 14.61 K/uL Red Blood Count 3.49 M/uL Hemoglobin 8.6 g/dL Hematocrit 29.1 % Mean Corpuscular Volume 83.4 fL Mean Corpuscular Hemoglobin 24.6 pg Mean Corpuscular Hemoglobin Concent 29.6 g/dl RDW Standard Deviation 61.0 fL RDW Coefficient of Variation 20.1 % Platelet Count 338 K/uL Mean Platelet Volume 8.3 fL Iron Level 33 mcg/dl Total Iron Binding Capacity 247 mcg/dl Transferrin 139 mg/dl Transferrin % Saturation 17 % Assessment & Plan 61 yo female with esrd who presented with bleeding of her pannus wound and required stitches to stop the bleeding. pt had issues with tunneled dialysis catheter. exchanged it 05/01 and still running poorly. underwent blood transfusion 05/01 through peripheral line. ESRD-pt with tunneled line; for HD today. next hd tentatively for 05/07 as inpt or outpt Vasc access malfunction > got tdc exch 05/02; no avf at this time d/t chronic wounds Anemia of renal failure-pt had two units transfused 05/01. epo/venofer w/ hd ad indicated pannus wound> getting new wound vac today. leg pain > for dopplers appreciate consult; care coordinated w/ dr solorio
--- NOTE | 2017-05-05 12:20 | DIAGNOSTIC IMAGING REPORT ---
RIGHT VENOUS DOPP LOWER EXT UNILAT CLINICAL HISTORY: 61 years-old Female presenting with R Leg swelling Right. TECHNIQUE: Real-time grayscale and color and spectral Doppler ultrasound imaging of the veins of the right lower extremity was performed. Compression and augmentation were also utilized. COMPARISON: None. FINDINGS: Right: Common femoral vein: Patent. Femoral vein: Patent. Greater saphenous vein: Patent. Popliteal vein: Patent. Calf veins: Limited visualization. Other: None. IMPRESSION: No evidence of deep venous thrombosis. Electronically signed by: Narendra Jones M.D. 05/05/2017 12:18 PM Dictated Date/Time: 05/05/2017 12:18 PM
--- NOTE | 2017-05-05 17:03 | Progress Note ---
Subjective Date of Service: May 05, 2017. Subjective Pt evaluation today including: conversation w/ patient, physical exam, lab review, review of studies, review of inpatient medication list Saw/examined the patient in room 261 She's doing well, irrigating vac changed today to receive hemodialysis today had some R leg pain today; states she woke up with the pain Problem List Medical Problems: (1) Acute exacerbation of CHF (congestive heart failure) Status: Acute (2) Acute hemorrhage Status: Acute (3) FRED (acute kidney injury) Status: Acute (4) Anemia Status: Acute (5) CHF (congestive heart failure) Status: Acute (6) Congestive heart failure Status: Acute (7) Congestive heart failure Status: Acute (8) Congestive heart failure Status: Acute (9) COPD exacerbation Status: Acute (10) Hypoxia Status: Acute (11) Hypoxia Status: Acute (12) Leukocytosis Status: Acute (13) Leukocytosis Status: Acute (14) Low grade fever Status: Acute (15) Low grade fever Status: Acute (16) Pleural effusion, right Status: Acute (17) Pressure ulcer Status: Acute (18) Rapid atrial fibrillation Status: Acute (19) Rapid atrial fibrillation Status: Acute (20) Renal insufficiency Status: Acute (21) Sepsis Status: Acute (22) Sepsis associated hypotension Status: Acute (23) Severe sepsis with acute organ dysfunction Status: Acute (24) Shortness of breath Status: Acute (25) Supratherapeutic INR Status: Acute Review of Systems Constitutional: No fever, No chills Respiratory: No cough, No sputum, No shortness of breath Cardiac: No chest pain Abdomen: No pain, No nausea, No vomiting, No diarrhea Musculoskeletal: + joint pain (R LE pain) Heme: No abnormal bleeding/bruising Medications Current Inpatient Medications Medications (Trade) Dose Ordered Sig/Tyrone Route Start Time Stop Time Status Last Admin Dose Admin Acetaminophen (Tylenol Tab) 650 mg Q4H PRN PO 04/29/17 16:15 05/29/17 16:14 Ondansetron HCl (Zofran Inj) 4 mg Q6H PRN IV 04/29/17 16:15 05/29/17 16:14 Insulin Glargine (Lantus Solostar Pen) 10 units Q12 SC 04/29/17 21:00 05/29/17 20:59 05/05/17 08:38 10 UNITS Insulin Aspart (novoLOG ASPART) SLIDING SCALE If C... ACHS SC 04/29/17 21:00 05/29/17 20:59 05/05/17 13:05 3 UNITS Glucose (Glucose 40% Gel) 15-30 GRAMS 15 GRAMS... UD PRN PO 04/29/17 16:15 05/29/17 16:14 Glucose (Glucose Chew Tab) 4-8 Tablets 4 Tabl... UD PRN PO 04/29/17 16:15 05/29/17 16:14 Dextrose (Dextrose 50% 50ML Syringe) 25-50ML OF 50% DW IV FOR... UD PRN IV 04/29/17 16:15 05/29/17 16:14 Glucagon (Glucagon Inj) 1 mg UD PRN SQ 04/29/17 16:15 05/29/17 16:14 Miscellaneous (Iv Fluids Completed) 1 ea PRN PRN N/A 04/29/17 16:30 04/29/18 16:29 Ascorbic Acid (Vitamin C Tab) 500 mg BID PO 04/29/17 21:00 05/29/17 20:59 05/05/17 09:40 500 MG Atorvastatin Calcium (Lipitor Tab) 40 mg DAILY PO 04/30/17 09:00 05/30/17 08:59 05/04/17 08:50 40 MG Calcitriol (Rocaltrol Cap) 0.25 mcg MoWeFr@0900 PO 04/30/17 09:00 05/30/17 08:59 05/05/17 09:40 0.25 MCG Collagenase (Santyl Oint) 1 appln DAILY EXT 04/30/17 09:00 05/30/17 08:59 05/02/17 07:40 1 APPLN Cyanocobalamin (Vitamin B-12 Tab) 1,000 mcg DAILY PO 04/30/17 09:00 05/30/17 08:59 05/04/17 08:53 1,000 MCG Docusate Sodium (coLACE CAP) 100 mg BID PO 04/29/17 21:00 05/29/17 20:59 05/05/17 09:37 100 MG Gabapentin (Neurontin Cap) 400 mg BID PO 04/29/17 21:00 05/29/17 20:59 05/05/17 09:39 400 MG Acetaminophen/ Hydrocodone Bitart ([place]rian 5/325 Tab) 1 tab Q6H PRN PO 04/29/17 16:30 05/13/17 16:29 05/05/17 11:22 1 TAB Levothyroxine Sodium (Synthroid Tab) 125 mcg DAILYBB PO 04/30/17 06:30 05/30/17 06:59 05/05/17 06:24 125 MCG Magnesium Oxide (Mag-Ox Tab) 400 mg BID PO 04/29/17 21:00 05/29/17 20:59 05/05/17 09:38 400 MG Metoprolol Succinate (Toprol Xl Tab) 25 mg DAILY PO 04/30/17 09:00 05/30/17 08:59 05/04/17 08:52 25 MG Prednisone (PredniSONE TAB) 5 mg DAILY PO 04/30/17 09:00 05/30/17 08:59 05/04/17 08:51 5 MG Sertraline HCl (Zoloft Tab) 100 mg DAILY PO 04/30/17 09:00 05/30/17 08:59 05/04/17 08:54 100 MG Tiotropium [place] (Spiriva Handihaler Inhaler) 1 puff DAILY INH 04/30/17 09:00 05/30/17 08:59 05/05/17 09:33 1 PUFF Vitamin B Complex (Vitamin B Complex) 1 tab DAILY PO 04/30/17 09:00 05/30/17 08:59 05/04/17 08:52 1 TAB Cholecalciferol (Vitamin D Tab) 2,000 inter.unit DAILY PO 04/30/17 09:00 05/30/17 08:59 05/04/17 08:53 2,000 INTER.UNIT Pantoprazole Sodium (Protonix Tab) 40 mg QAM PO 04/30/17 09:00 05/30/17 08:59 05/04/17 08:52 40 MG Enteral Nutritional Formula (Boost Pudding) 1 cup BID PO 04/30/17 21:00 05/30/17 20:59 05/04/17 20:53 1 CUP Amoxicillin/ Clavulanate Potassium (Augmentin Tab) 500 mg HS PO 04/30/17 21:00 05/09/17 20:59 05/04/17 20:58 500 MG Ciprofloxacin (Ciprofloxacin Tab) 750 mg HS PO 04/30/17 21:00 05/09/17 20:59 05/04/17 20:53 750 MG Miconazole Nitrate (Desenex Powder) 1 appln BID EXT 05/01/17 21:00 05/31/17 20:59 05/05/17 08:42 1 APPLN Alprazolam (Xanax Tab) 0.5 mg Q12H PRN PO 05/02/17 11:45 06/01/17 11:44 Benzonatate (Tessalon Perles Cap) 100 mg TID PRN PO 05/03/17 17:45 06/02/17 17:44 Objective Vital Signs Date Time Temp Pulse Resp B/P (MAP) Pulse Ox O2 Delivery O2 Flow Rate FiO2 05/05/17 16:45 85 93/47 05/05/17 16:30 88 94/48 05/05/17 16:15 81 104/50 05/05/17 16:05 80 103/49 05/05/17 16:00 Nasal Cannula 4.0 05/05/17 15:55 36.9 81 91/46 (61) 05/05/17 15:31 36.4 86 18 130/78 (95) 100 Nasal Cannula 3.0 05/05/17 08:00 Nasal Cannula 4.0 05/05/17 07:34 36.6 84 20 118/55 (76) 95 05/05/17 00:00 36.7 86 20 117/70 (86) 95 4.0 05/05/17 00:00 93 Nasal Cannula 4.0 Physical Exam General Appearance: no apparent distress, + obese Respiratory/Chest: lungs clear, normal breath sounds, no respiratory distress, no accessory muscle use Cardiovascular: regular rate, rhythm, no murmur Abdomen: + pertinent finding (wound vac in the abdomen) Extremities: normal inspection, no pedal edema Laboratory Results Last 24 Hours Test 05/04/17 20:21 05/05/17 07:24 05/05/17 07:30 05/05/17 07:38 Bedside Glucose 211 mg/dl 115 mg/dl White Blood Count 14.61 K/uL Red Blood Count 3.49 M/uL Hemoglobin 8.6 g/dL Hematocrit 29.1 % Mean Corpuscular Volume 83.4 fL Mean Corpuscular Hemoglobin 24.6 pg Mean Corpuscular Hemoglobin Concent 29.6 g/dl RDW Standard Deviation 61.0 fL RDW Coefficient of Variation 20.1 % Platelet Count 338 K/uL Mean Platelet Volume 8.3 fL Iron Level 33 mcg/dl Total Iron Binding Capacity 247 mcg/dl Transferrin 139 mg/dl Transferrin % Saturation 17 % Test 05/05/17 10:52 Bedside Glucose 128 mg/dl Assessment and Plan This is a 61yo F with a PMH of chronic wounds, Paroxysmal A Fib (on coumadin), DM II, ESRD (requiring dialysis), HTN and COPD who presents with bleeding from a pre-existing wound on L lower abdomen. Wound on Lower Left Abdomen: 05/05 doing well, wound vacs changed to portable vac plan for d/c today as per Dr. Mejía 05/04 irrigating wound vacs in place Hgb 7.9 today, monitor in AM 05/03 irrigating wound vac in place Hgb = 8.4, s/p two units PRBCs wound care consult appreciated continue home antibiotics Chronic wounds; b/l LE Continue Cipro and Augmentin Wound care to re-dress in AM All wounds visualized and re-bandaged Paroxysmal A Fib: 05/05 can restart Coumadin, cont. b-reyes today f/u on H/H as outpatient with PCP 05/04 Rate controlled on beta reyes, will continue On Coumadin, subtherapeutic INR of 1.5 Hold Coumadin and follow up INR tomorrow ESRD (on dialysis): catheter placed yesterday receiving dialysis today (05/03) and catheter is working COPD: -Stable. Denies dyspnea, SOB, wheezing -Continue home inhalers -O2 PRN by protocol DM II: - Hgb a1c of 8.1 on 12/2016 - Held home meds - Continue basal / SSI while in-patient - BG checks AC and qHS Hypothyroidism: - Continue Levothyroxine DVT Ppx: on coumadin Code status: FULL PCP: Carlos Dispo: Plan to return home once medically stable. Daughter coordinates medical care.
[2017-05-05] MEDS ORDERED: CIPR1TAB11 PO (17:15)
[2017-05-05] MEDS ORDERED: AMOX500T PO (17:15)
--- NOTE | 2017-05-05 17:26 | Discharge Instructions ---
Discharge Instructions Date of Service May 05, 2017. Admission Reason for Admission: Open Abdominal Wall Wound Discharge Discharge Diagnosis / Problem: Abdominal Wall Wound, Acute blood loss, ESRD on HD Discharge Goals Goal(s): Decrease discomfort, Improve function Activity Recommendations Activity Limitations: resume your previous activity . Instructions / Follow-Up Instructions / Follow-Up Please follow-up with Dr. Gonzalez on May 09 at 12:30PM (your appointment on is canceled) * PCP should recheck H/H in 4-5 days * continue dialysis on 05/07 * Restart Coumadin * Follow-up with wound care as an outpatient Current Hospital Diet Patient's current hospital diet: Diabetes Type 2 Diet, Renal Diet Discharge Diet Recommended Diet: Diabetes Type 2 Diet, Renal Diet Procedures Procedures Performed: Exchange Of Perm Catheter, Right Internal Jugular Vein, Fluoroscopy For Positioning, Moderate Concious Sedation 1630 to 1641 Pending Studies Studies pending at discharge: no Laboratory Results Hemoglobin A1c Test 03/27/17 06:13 Range/Units Estimated Average Glucose 143 mg/dl Hemoglobin A1c 6.6 H 4.5-5.6 % Medical Emergencies . Who to Call and When: Medical Emergencies: If at any time you feel your situation is an emergency, please call 911 immediately. . Non-Emergent Contact Non-Emergency issues call your: Primary Care Provider, Primary Teaching Assistant . . "Provider Documentation" section prepared by Vero Malcolm. . VTE Core Measure Inpt VTE Proph given/why not?: Warfarin (Coumadin)
--- NOTE | 2017-05-05 17:32 | Discharge Summary ---
Discharge Summary Date of Service May 05, 2017. Discharge Summary Admission Date: Apr 30, 2017 at 09:21 Discharge Date: May 05, 2017 Discharge Disposition: Home Principal Diagnosis: Abdominal Wound Acute Blood Loss Anemia s/p two units PRBCs ESRD on HD Medication Reconciliation Changed Medications: Amoxicillin & Pot Clavulanate (Augmentin 500MG) 1 Tab Tab 1 TAB PO HS for 14 Days, #14 TAB (Changed from: Amoxicillin & Pot Clavulanate ( Augmentin 875-125 mg) 1 Tab Tab 1 Tab PO BID #14 TAB) Ciprofloxacin Tab (Cipro) 250 Mg Tab 750 MG PO HS for 14 Days, #14 TAB (Changed from: BID) Continued Medications: Ascorbic Acid (Vitamin C) 500 Mg Tab 500 MG PO BID Aspirin (Aspirin Ec) 81 Mg Tab 81 MG PO DAILY Atorvastatin (Lipitor) 40 Mg Tab 40 MG PO DAILY, TAB B-Complex W/ C & Folic Acid (Renal Vitamin 0.8 mg) 1 Tab Tab 1 TAB PO DAILY Calcitriol (Rocaltrol Cap) 0.25 Mcg Cap 0.25 MCG PO UD, CAP MWF Cholecalciferol (Vitamin D3) 2,000 Unit Cap 1 CAP PO DAILY Collagenase (Santyl) 250 Unit/Gm Oin 1 APPLN EXT DAILY for 30 Days, #1 TUBE 2 Refills Cyanocobalamin (Vitamin B-12) 1,000 Mcg Tab 1000 MCG PO DAILY, TAB Docusate Sodium (Colace) 100 Mg Cap 1 CAP PO BID, CAP Gabapentin (Neurontin) 400 Mg Cap 400 MG PO BID Home O2 Therapy (Oxygen) Gas 4 LITERS NA CONTINOUS, BTL Hydrocodone/Acetaminophen 5MG/325MG ([place] 5MG/325MG) Tab 1 TABLET PO Q6H PRN for Pain, TAB PRN PAIN Insulin Aspart (Novolog) 100 Units/Ml Inj Unknown Dose SC AC SLIDING SCALE Insulin Glargine (Lantus Solostar) 100 Unit/Ml Inj 30 UNITS SC HS, PEN Levothyroxine Sodium (Synthroid) 125 Mcg Tab 125 MCG PO DAILY, TAB Magnesium Oxide (Mag-Ox) 400 Mg Tab 400 MG PO BID, TAB Metoprolol Succ (Toprol Xl) (Toprol-Xl) 25 Mg Tabcr 25 MG PO DAILY, #30 TAB Pantoprazole (Protonix) 20 Mg Tab 20 MG PO DAILY Prednisone (Prednisone) 5 Mg Tab 5 MG PO DAILY, TAB Sertraline (Zoloft) 100 Mg Tab 100 MG PO DAILY, TAB Tiotropium [place] (Spiriva Handihaler) 30 Puff/540 Mcg Aerp 1 CAP INH DAILY, INHALER Warfarin Sod (Coumadin) 2.5 Mg Tab 2.5 MG PO 3XWK, TAB friday and Warfarin Sodium (Coumadin) 5 Mg Tab 5 MG PO 4XWK, TAB FRI,FRI,FRI,SAT, Admission Information HPI (per Admitting provider): This is a 61yo F with a PMH of chronic wounds, Paroxysmal A Fib (on coumadin), DM II, ESRD (requiring dialysis), HTN, COPD and Right-sided CHF who presents with bleeding from a pre-existing wound on L lower abdomen. Patient was using the restroom this morning and noticed a "wet feeling" on L leg. Looked down and noticed wound located in L lower abdomen was "pouring out blood". Ambulance was called. In ED, sutures were placed, wound was packed and bleeding subsisted. Denies any lightheadedness, confusion, CP, SOB or weakness. Patient has a long history of multiple wounds for which she sees [facility]. On Augmentin and Cipro for wounds. Is on coumadin for paroxysmal atrial fibrillation. Has ESRD and receives dialysis on Friday, Friday and Friday. Physical Exam (per Admitting): General Appearance: WD/WN, no apparent distress Head: normocephalic, atraumatic Eyes: normal inspection ENT: normal ENT inspection, hearing grossly normal Neck: supple, thyroid normal, trachea midline Respiratory/Chest: chest non-tender, lungs clear, no respiratory distress, no accessory muscle use, + wheezing Cardiovascular: regular rate, rhythm, no murmur Abdomen/GI: normal bowel sounds Back: normal inspection Extremities/Musculoskelatal: normal inspection, no calf tenderness, + swelling (Chronic LE swelling) Neurologic/Psych: no motor/sensory deficits, alert, normal mood/affect, oriented x 3 Skin: normal color, + pertinent finding (Presence of multiple chronic wounds : LLQ abdominal wound with some serosanginous drainage. Tissue is sloughing with some granulation tissue present. Approximately 9cm x 3 cm x 2 cm. Bandaged wounds on R buttocks, L buttocks, R thigh (with wound vac in place)) Lymphatic: no adenopathy Hospital Course This is a 61yo F with a PMH of chronic wounds, Paroxysmal A Fib (on coumadin), DM II, ESRD (requiring dialysis), HTN and COPD who presents with bleeding from a pre-existing wound on L lower abdomen. Wound on Lower Left Abdomen: 05/05 doing well, wound vacs changed to portable vac plan for d/c today as per Dr. Mejía 05/[address] in place Hgb 7.9 today, monitor in AM 05/03 [address] wound vac in place Hgb = 8.4, s/p two units PRBCs wound care consult appreciated continue home antibiotics Chronic wounds; b/l LE Continue Cipro and Augmentin Wound care to re-dress in AM All wounds visualized and re-bandaged Paroxysmal A Fib: 05/05 can restart Coumadin, cont. b-reyes today f/u on H/H as outpatient with PCP 05/04 Rate controlled on beta reyes, will continue On Coumadin, subtherapeutic INR of 1.5 Hold Coumadin and follow up INR tomorrow ESRD (on dialysis): catheter placed yesterday receiving dialysis today (05/03) and catheter is working COPD: -Stable. Denies dyspnea, SOB, wheezing -Continue home inhalers -O2 PRN by protocol DM II: - Hgb a1c of 8.1 on 12/2016 - Held home meds - Continue basal / SSI while in-patient - BG checks AC and qHS Hypothyroidism: - Continue Levothyroxine DVT Ppx: on coumadin Code status: FULL PCP: Carlos Dispo: Plan to return home once medically stable. Daughter coordinates medical care. Total time spent on discharge = 45 minutes This includes examination of the patient, discharge planning, medication reconciliation, and communication with other providers. Discharge Instructions Please follow-up with Dr. Gonzalez on May 09 at 12:30PM (your appointment on is canceled) * PCP should recheck H/H in 4-5 days * continue dialysis on 05/07 * Restart Coumadin * Follow-up with wound care as an outpatient
[2017-05-05] MEDS: PANTOprazole SOD 40 MG TAB PO SCH (20:11)
[2017-05-05] MEDS: VITAMIN B COMPLEX TAB PO SCH (20:11)
[2017-05-05] MEDS: SERTRALINE HCL 100 MG TAB PO SCH (20:12)
[2017-05-05] MEDS: CHOLECALCIFEROL 1000 INTER.UNIT TAB PO SCH (20:12)
[2017-05-05] MEDS: CIPROFLOXACIN 250 MG TAB PO SCH (20:13)
[2017-05-05] MEDS: CYANOCOBALAMIN 500 MCG TAB (VIT B-12) PO SCH (20:14)
[2017-05-05] MEDS: ATORVASTATIN 40 MG TAB PO SCH (20:14)
[2017-05-05] MEDS: AMOXICILLIN/CLAVULANATE TAB 500 MG TAB PO SCH (20:15)
--- NOTE | 2017-05-06 08:25 | Wound Progress Note: Inpatient ---
Wound Progress Note Date of Service May 05, 2017. Subjective Pt evaluation today including: conversation w/ patient, physical exam, chart review, conversation w/ internet marketing consultant Patient was reevaluated today for an abdominal wall ulceration. Patient has had no problems with the wound VAC over the course of the past 72 hours. Patient denies any significant pain. Objective Vital Signs Date Time Temp Pulse Resp B/P (MAP) Pulse Ox O2 Delivery O2 Flow Rate FiO2 05/05/17 19:50 36.6 94 102/53 (69) 05/05/17 19:30 86 95/52 05/05/17 19:15 89 92/45 05/05/17 19:00 89 90/50 05/05/17 18:45 87 96/50 05/05/17 18:41 36.9 89 18 100 Nasal Cannula 05/05/17 18:30 89 88/49 05/05/17 18:15 88 90/58 05/05/17 18:00 86 92/48 05/05/17 17:45 86 100/48 05/05/17 17:30 94 91/44 05/05/17 17:15 91 84/46 05/05/17 17:00 84 88/49 05/05/17 16:45 85 93/47 05/05/17 16:30 88 94/48 05/05/17 16:15 81 104/50 05/05/17 16:05 80 103/49 05/05/17 16:00 Nasal Cannula 4.0 05/05/17 15:55 36.9 81 91/46 (61) 05/05/17 15:31 36.4 86 18 130/78 (95) 100 Nasal Cannula 3.0 Physical Exam Notes: Patient was sitting in a hospital chair no acute distress. Patient is alert and cooperative set the examination. The ulceration of the abdominal wall today shows some scattered slough to be present measuring 3.4 x 6.4 x 0.5 cm. No active bleeding is noted. No periwound erythema or edema is present. No drainage or odor noted. Right hip presence of stable with no periwound erythema or active drainage present. Laboratory Results Last 24 Hours Test 05/05/17 10:52 05/05/17 16:20 05/05/17 20:08 Bedside Glucose 128 mg/dl 118 mg/dl 92 mg/dl Assessment and Plan Assessment: Ulceration left lower abdominal wall with central necrosis. Multiple ulcerations to both hips and thigh regions stable Plan: At this time the irrigating wound VAC on the abdominal wall will be discontinued and replaced with Santyl under a conventional outpatient wound VAC black foam 125 mm of negative pressure wound VAC change Friday with Santyl application. The other ulcerations will be managed with Aquacel Ag and gauze change daily. At this time is recommended the patient be discharged from the hospital and will be followed up in the wound clinic on an outpatient basis. Patient will continue outpatient antibiotic therapy. The care was discussed in detail with the hospitalist and was in agreement with the plan.
--- NOTE | 2017-05-16 07:17 | EDITING REQUIRED CODING QUERY ---
PRESSURE ULCER DOCUMENTATION To promote full compliance with coding requirements relating to patient care, physician participation is requested in all cases of food service manager uncertainty. Please assist us with the question(s) below: Please specify the known or suspected type by placing an "X" within the parenthesis (x). A pressure ulcer of the Abdomen If possible, please check the box that provides the specific stage of the pressure ulcer ( ) Stage I ( ) Stage II ( ) Stage III ( ) Stage IV ( ) Unstageable (X ) Unable to determine Was the pressure ulcer present on admission? Please check the appropriate box for the pressure ulcer: ( X ) Present on admission ( ) Not present on admission ( ) Unable to be clinically determined Thank you! Emma Escobedo
[2017-05-30] MEDS ORDERED: LVQ500 PO (17:03)
[2017-06-12] MEDS ORDERED: AMOX500T PO (15:05)
[2017-06-12] MEDS ORDERED: CIPR1TAB11 PO (15:05)
== END 2017-05-05 21:15 | disposition home or self-care (01) | DRG 981 ==
LOC: EDBD 12:45 → C.EDB 12:46 → C.MS2W 16:21 → ENRESERV 17:32 → OBSVTOIN 04-30 09:21
PROVIDERS: ADMIT Family Medicine; ATTEND Family Medicine
PROC: 0HQ7XZZ Repair Abdomen Skin, External Approach (ICD-10-PCS; principal; 2017-04-30)
PROC: 02WY33Z Revision of Infusion Device in Great Vessel, Percutaneous Approach (ICD-10-PCS; 2017-05-01)
PROC: 02WY33Z Revision of Infusion Device in Great Vessel, Percutaneous Approach (ICD-10-PCS; 2017-05-02)
DX: L89.893 Pressure ulcer of other site, stage 3 (principal); N18.6 End stage renal disease; D62 Acute posthemorrhagic anemia; I13.2 Hypertensive heart and chronic kidney disease with heart failure and with stage 5 chronic kidney disease, or end stage renal disease; L89.219 Pressure ulcer of right hip, unspecified stage; L89.229 Pressure ulcer of left hip, unspecified stage; J44.9 Chronic obstructive pulmonary disease, unspecified; I50.9 Heart failure, unspecified; E11.22 Type 2 diabetes mellitus with diabetic chronic kidney disease; E03.9 Hypothyroidism, unspecified; I48.0 Paroxysmal atrial fibrillation; D63.1 Anemia in chronic kidney disease; E11.622 Type 2 diabetes mellitus with other skin ulcer; Z79.01 Long term (current) use of anticoagulants; Z79.4 Long term (current) use of insulin; Z79.52 Long term (current) use of systemic steroids; Z79.82 Long term (current) use of aspirin; Z79.899 Other long term (current) drug therapy; Z87.891 Personal history of nicotine dependence; Z99.2 Dependence on renal dialysis; Z83.3 Family history of diabetes mellitus

== ENCOUNTER 2017-05-26 19:50 | Inpatient (IN) | payer OTHER ==
[~2017-05-26] VITALS: Ht 162.6 cm; Wt 105.5 kg
[~2017-05-26 19:50] MED LIST changes: -ACET325T96 PO; -AMOX875T PO; +ASCA500 PO; +CIPR1TAB11 PO; -CPR750 PO; +GABA1CAP5 PO; +HYDR-5688 PO; -METO1TAB66 PO; -METO2.5T PO; +METO25TA3 PO; -NUTRMIS PO; +PRT/20 PO; +SERT-234 PO
[2017-05-26] MEDS ORDERED: VANCOMYCIN 1GM/270ML NSS IV STA (20:11)
[2017-05-26] MEDS ORDERED: SODIUM CHLORIDE 0.9% 1000ML 500 ML IV ONE (20:11)
[2017-05-26] MEDS ORDERED: LEVAQUIN 750MG / 150ML D5W IV STA (20:11)
[2017-05-26] MEDS ORDERED: PIPERACILLIN/TAZOBACTAM 4.5 GM/100ML D5W IV STA (20:11)
[2017-05-26] MEDS ORDERED: MAGNESIUM SULFATE 1GM / D5W 1 GM BAG IV STA (20:13)
[2017-05-26] MEDS ORDERED: METHYLPREDNISOLONE 125 MG VIAL IV STA (20:13)
--- NOTE | 2017-05-26 20:13 | EMERGENCY ROOM VISIT NOTE ---
History Report prepared by Hailey: Yoli Joseph Under the Supervision of: Dr. Sj Bustillos M.D. First contact with patient: 20:07 Chief Complaint: OTHER COMPLAINT Stated Complaint: COLD FOR 3 DAYS History of Present Illness The patient is a 62 year old female who presents to the Emergency Room with complaints of constant shortness of breath beginning 3 days ago. The patient states that she has not been feeling well over the last 3 days. She complains of chills, fever, pallor, and decreased appetite. She notes that she is on Coumadin and gets dialysis Friday, Friday, and Friday. After dialysis today she reports that her shortness of breath worsened and she decided to come into the ED. Source of History: patient Onset: 3 days ago Position: other (respiratory) Quality: other (SOB) Timing: constant Associated Symptoms: + fevers, + chills Note: She complains of pallor and decreased appetite. Review of Systems See HPI for pertinent positives & negatives. A total of 10 systems reviewed and were otherwise negative. Past Medical & Surgical Medical Problems: (1) Atrial fibrillation (2) Chronic respiratory failure with hypoxia (3) chronic wound (4) COPD (chronic obstructive pulmonary disease) (5) Depression (6) DM type 2 (diabetes mellitus, type 2) (7) ESRD (end stage renal disease) on dialysis (8) HLD (hyperlipidemia) (9) HTN (hypertension) (10) Hypothyroidism (11) Neuropathy (12) Open abdominal wall wound (13) Pulmonary HTN (14) RHF (right heart failure) (15) Shortness of breath Surgical Problems: (1) S/P cholecystectomy (2) S/P debridement Family History Diabetes mellitus MOTHER FH: brain cancer FATHER FH: heart disease MOTHER Social History Smoking Status: Never Smoker Alcohol Use: none Drug Use: none Marital Status: Housing Status: lives with family Occupation Status: disabled Current/Historical Medications Scheduled Amoxicillin & Pot Clavulanate (Augmentin 875-125 mg), 1 TAB PO DAILY Ascorbic Acid (Vitamin C), 500 MG PO BID Aspirin (Aspirin Ec), 81 MG PO DAILY Atorvastatin (Lipitor), 40 MG PO DAILY B-Complex W/ C & Folic Acid (Renal Vitamin 0.8 mg), 1 TAB PO DAILY Calcitriol (Rocaltrol Cap), 0.25 MCG PO UD Cholecalciferol (Vitamin D3), 1 CAP PO DAILY Ciprofloxacin Tab (Cipro), 750 MG PO HS Collagenase (Santyl), 1 APPLN EXT DAILY Cyanocobalamin (Vitamin B-12), 1,000 MCG PO DAILY Docusate Sodium (Colace), 1 CAP PO BID Gabapentin (Neurontin), 400 MG PO BID Home O2 Therapy (Oxygen), 4 LITERS NA CONTINOUS Insulin Aspart (Novolog), Unknown Dose SC AC Insulin Glargine (Lantus Solostar), 30 UNITS SC HS Levothyroxine Sodium (Synthroid), 125 MCG PO DAILY Magnesium Oxide (Mag-Ox), 400 MG PO BID Metoprolol Succ (Toprol Xl) (Toprol-Xl), 25 MG PO DAILY Pantoprazole (Protonix), 20 MG PO DAILY Prednisone (Prednisone), 5 MG PO DAILY Sertraline (Zoloft), 100 MG PO DAILY Tiotropium [place] (Spiriva Handihaler), 1 CAP INH DAILY Warfarin Sodium (Coumadin), 5 MG PO DAILY Scheduled PRN Hydrocodone/Acetaminophen 5MG/325MG ([place] 5MG/325MG), 1 TABLET PO Q6H PRN for Pain Allergies Coded Allergies: Bacitracin (Verified Allergy, Intermediate, RASH,ITCH, 05/26/17) Celecoxib (Verified Allergy, Intermediate, RASH TO SULFA DRUGS, 05/26/17) Neomycin (Verified Allergy, Intermediate, RASH,ITCH, 05/26/17) Polymyxin B (Verified Allergy, Intermediate, RASH,ITCH, 05/26/17) Sulfa Antibiotics (Verified Allergy, Intermediate, RASH,HAS TAKEN GLIPIZIDE W/O REACTION, 05/26/17) Tigecycline (Verified Adverse Reaction, Severe, MILD PANCREATITIS, 05/26/17 ) 61 yo F placed on IV tigecycline for wound infection, after 5-6 days developed decreased appetite, had nonspecific abdominal pain from admission and was refusing to lie back for daily abd assessments because of pain in other areas of abdomen. Decreased appetite persisted, also in context of worsening depression and stated apathy, WBC continued to increase, CT chest revealed n/s changes possibly consistent with mild pancreatitis, lipase drawn and elevated, other causes ruled out, clinical pancreatitis on exam. Diruretics/albumin stopped to avoid further rehydration, tigecycline discontinued, continuing supportive care. Codeine (Verified Adverse Reaction, Intermediate, GI UPSET, 05/26/17) Physical Exam Vital Signs Date Time Temp Pulse Resp B/P (MAP) Pulse Ox O2 Delivery O2 Flow Rate FiO2 05/26/17 22:04 92 20 91/42 94 BiPAP 40 05/26/17 21:34 93 22 86/49 99 Room Air 8.0 40 05/26/17 20:51 94 BiPAP 8.0 40 05/26/17 20:38 96 05/26/17 20:35 99 94 40 05/26/17 20:30 99 24 90 Nasal Cannula 6.0 05/26/17 19:58 37.4 102 18 98/62 82 Nasal Cannula 4.0 Physical Exam GENERAL: Patient is a healthy-appearing well-nourished female, appears short of breath HEAD: Normocephalic atraumatic EYES: Ocular movements intact pupils equal and react to light OROPHARYNX mucous membranes are moist no exudates present no erythema or edema present NECK: Supple no nuchal rigidity CHEST: Good equal expansion LUNGS: Clear and equal to auscultation CARDIAC: Normal S1 and S2 ABDOMEN: Soft nontender no guarding BACK: No CVA tenderness EXTREMITIES: No pain upon palpation normal muscle strength in all groups no clubbing cyanosis or edema NEURO: Patient is following commands and answering questions appropriately. Alert and oriented x3 Cranial Nerves 2-12 grossly intact Medical Decision & Procedures ER Provider Diagnostic Interpretation: X-ray results as stated below per interpretation by me and the radiologist: CHEST ONE VIEW PORTABLE FINDINGS: The heart remains enlarged. Right basilar linear densities which have improved. The left lung is clear. No pleural effusions. No pneumothorax. Right jugular dual-lumen catheter terminates in the SVC. No evidence for pulmonary edema. IMPRESSION: 1. Improved aeration within the base of the right lower lobe which favors resolving atelectasis or resolving pneumonia. 2. Stable cardiomegaly. No evidence for pulmonary edema. Electronically signed by: Jordon Littlejohn M.D. 05/26/2017 8:48 PM Dictated Date/Time: 05/26/2017 8:47 PM Laboratory Results 05/26/17 20:20 Red Blood Count 4.00, Mean Corpuscular Volume 86.3, Mean Corpuscular Hemoglobin 24.8, Mean Corpuscular Hemoglobin Concent 28.7, Mean Platelet Volume 8.5, Neutrophils (%) (Auto) 82.6, Lymphocytes (%) (Auto) 5.9, Monocytes (%) (Auto) 9.4, Eosinophils (%) (Auto) 1.2, Basophils (%) (Auto) 0.2, Neutrophils # (Auto) 20.97, Lymphocytes # (Auto) 1.51, Monocytes # (Auto) 2.38, Eosinophils # (Auto) 0.31, Basophils # (Auto) 0.06 05/26/17 20:20 Test 05/26/17 20:20 05/26/17 20:24 05/26/17 20:28 05/26/17 21:15 White Blood Count 25.42 K/uL (4.8-10.8) Red Blood Count 4.00 M/uL (4.2-5.4) Hemoglobin 9.9 g/dL (12.0-16.0) Hematocrit 34.5 % (37-47) Mean Corpuscular Volume 86.3 fL (80-100) Mean Corpuscular Hemoglobin 24.8 pg (25-34) Mean Corpuscular Hemoglobin Concent 28.7 g/dl (32-36) Platelet Count 402 K/uL (130-400) Mean Platelet Volume 8.5 fL (7.4-10.4) Neutrophils (%) (Auto) 82.6 % Lymphocytes (%) (Auto) 5.9 % Monocytes (%) (Auto) 9.4 % Eosinophils (%) (Auto) 1.2 % Basophils (%) (Auto) 0.2 % Neutrophils # (Auto) 20.97 K/uL (1.4-6.5) Lymphocytes # (Auto) 1.51 K/uL (1.2-3.4) Monocytes # (Auto) 2.38 K/uL (0.11-0.59) Eosinophils # (Auto) 0.31 K/uL (0-0.5) Basophils # (Auto) 0.06 K/uL (0-0.2) RDW Standard Deviation 64.1 fL (36.4-46.3) RDW Coefficient of Variation 20.2 % (11.5-14.5) Immature Granulocyte % (Auto) 0.7 % Immature Granulocyte # (Auto) 0.19 K/uL (0.00-0.02) Hypochromasia PRESENT Basophilic Stippling OCCASIONAL Anisocytosis PRESENT Prothrombin Time 19.2 SECONDS (9.0-12.0) Prothromb Time International Ratio 1.8 (0.9-1.1) Activated Partial Thromboplast Time 36.6 SECONDS (21.0-31.0) Partial Thromboplastin Ratio 1.4 Estimated GFR () 26.8 Estimated GFR (Non- 23.1 BUN/Creatinine Ratio 9.1 (10-20) Calcium Level 9.1 mg/dl (8.5-10.1) Total Bilirubin 0.3 mg/dl (0.2-1) Aspartate Amino Transf (AST/SGOT) 43 U/L (15-37) Alanine Aminotransferase (ALT/SGPT) 32 U/L (12-78) Alkaline Phosphatase 202 U/L (45-117) Total Creatine Kinase 17 U/L (26-192) Creatine Kinase MB 0.6 ng/ml (0.5-3.6) Creatine Kinase MB Ratio 3.5 (0-3.0) Troponin I 0.017 ng/ml (0-0.045) Total Protein 6.8 gm/dl (6.4-8.2) Albumin 2.4 gm/dl (3.4-5.0) Globulin 4.4 gm/dl (2.5-4.0) Albumin/Globulin Ratio 0.6 (0.9-2) Bedside Lactic Acid Venous 2.53 mmol/L (0.90-1.70) Bedside Hemoglobin 11.6 g/dl (12.0-16.0) Bedside Hematocrit 34 % (37-47) Bedside Sodium 135 mEq/L (135-144) Bedside Potassium 4.3 mEq/L (3.3-5.0) Bedside Chloride 97 mEq/L (101-112) Bedside Total CO2 32 mEq/l (24-31) Anion Gap 11.0 mmol/L (16-25) Bedside Blood Urea Nitrogen 19 mg/dl (7-18) Bedside Creatinine 2.2 mg/dl (0.6-1.3) Bedside Glucose (other) 151 mg/dl (70-99) Bedside Ionized Calcium (Briseyda) 1.17 mmol/l (1.12-1.32) Urine Color DK YELLOW Urine Appearance CLOUDY (CLEAR) Urine pH 5.0 (4.5-7.5) Urine Specific [place] 1.030 (1.000-1.030) Urine Protein 1+ (NEG) Urine Glucose (UA) NEG (NEG) Urine Ketones TRACE (NEG) Urine Occult Blood 2+ (NEG) Urine Nitrite NEG (NEG) Urine Bilirubin NEG (NEG) Urine Urobilinogen NEG (NEG) Urine Leukocyte Esterase LARGE (NEG) Urine WBC (Auto) >30 /hpf (0-5) Urine RBC (Auto) 0-4 /hpf (0-4) Urine Hyaline Casts (Auto) 1-5 /lpf (0-5) Urine Epithelial Cells (Auto) >30 /lpf (0-5) Urine Bacteria (Auto) NEG (NEG) Urine Renal Epithelial Cells 0-5 /lpf (0-5) Urine Pathogenic Casts /lpf (0) Urine Yeast (Auto) PRESENT (NONE PRSENT) Labs reviewed by ED physician. Medications Administered Medications (Trade) Dose Ordered Sig/Tyrone Route Start Time Stop Time Status Last Admin Dose Admin Sodium Chloride 500 ml @ 999 mls/hr Q31M ONCE IV 05/26/17 20:11 05/26/17 20:41 DC 05/26/17 20:11 999 MLS/HR Piperacillin Sod/ Tazobactam Sod (Zosyn Iv) 4.5 gm ONE STAT IV 05/26/17 20:11 05/26/17 20:14 DC 05/26/17 20:49 4.5 GM Vancomycin HCl (Vancomycin 1gm/ 270ml Nss) 1 gm ONE STAT IV 05/26/17 20:11 05/26/17 20:15 DC 05/26/17 22:03 1 GM Levofloxacin (Levaquin / D5W) 750 mg ONE STAT IV 05/26/17 20:11 05/26/17 20:15 DC 05/26/17 21:32 750 MG Albuterol/ Ipratropium (Duoneb) 12 ml ONE ONCE INH 05/26/17 20:15 05/26/17 20:16 DC 05/26/17 20:30 12 ML Magnesium Sulfate (Magnesium Sulfate) 1 gm NOW STAT IV 05/26/17 20:13 05/26/17 20:15 DC 05/26/17 20:49 1 GM Methylprednisolone Sodium Succinate (Solu-Medrol IV) 60 mg NOW STAT IV 05/26/17 20:13 9/11/17 20:15 DC 05/26/17 20:34 60 MG Sodium Chloride 500 ml @ 999 mls/hr Q31M STAT IV 05/26/17 21:17 05/26/17 21:47 DC 05/26/17 21:17 999 MLS/HR ECG Indication: SOB/dyspnea Rate (beats per minute): 96 Rhythm: normal sinus Findings: no acute ischemic change, no ectopy ED Course 2006: Past medical records reviewed. The patient was evaluated in room C3. A complete history and physical examination was performed. 2010: Levofloxacin 750mg IV, Vancomycin HCl 1gm IV, Zosyn IV 4.5gm IV, Sodium Chloride 500 ml @ 999 mls/hr IV. 2012: Solu-Medrol IV 60mg IV, Magnesium Sulfate 1gm IV, Duoneb 12ml INH. 2116: Sodium Chloride 500 ml @ 999 mls/hr IV. 2142: I discussed the patient's case with Dr. Chaudhary, he has agreed to evaluate the patient for further management and care. 2151: Upon reexamination the patient is doing well. I discussed results and treatment plan with the patient. She verbalizes agreement and understanding. I spoke with Dr. Chaudhary from the [facility] Hospitalist Service. The patient will be evaluated for further management. Medical Decision Differential diagnosis: Etiologies such as infections, reactive airway disease, pneumonia, pneumothorax , COPD, CHF, cardiac ischemia, pulmonary embolism, musculoskeletal, gastrointestinal, as well as others were entertained. This is a 62-year-old female who presents emergency department complaining of increased use of oxygen as well as shortness of breath. The patient came from dialysis today. She has an elevation in her white blood count at 25. She is hypoxic she was placed on BiPAP and started on magnesium Solu-Medrol as well as a DuoNeb. She was also pancultured and found had have an elevation in her lactic acid. She was started on Zosyn and Levaquin and vancomycin. Her Coumadin is therapeutic at 1.8. I did discuss the case with the hospitalist service who agreed to admit the patient. Patient was in agreement with the treatment plan. Medication Reconcilliation Current Medication List: was personally reviewed by me Blood Pressure Screening Patient's blood pressure: Low blood pressure Blood pressure disposition: Did not require urgent referral Consults Time Called: [phone] Consulting Physician: Dr. Jet Soto Returned Call: [phone] I discussed the patient's case with Dr. Chaudhary, he has agreed to evaluate the patient for further management and care. Impression Primary Impression: Sepsis Additional Impression: Respiratory failure Critical Care I have personally spent greater than 90 minutes of critical care time in the direct management of this patient. This includes bedside care, interpretation of diagnostic studies, and testing, discussion with consultants, patient, and family members, and other required patient management activities. This 90 minutes is in excess of all separately billable procedures. Scribe Attestation The scribe's documentation has been prepared under my direction and personally reviewed by me in its entirety. I confirm that the note above accurately reflects all work, treatment, procedures, and medical decision making performed by me. Departure Information Dispostion Being Evaluated By Hospitalist Narendra Lockhart M.D. (PCP) Patient Instructions My [facility] Problem Qualifiers Primary Impression: Sepsis Sepsis type: sepsis due to unspecified organism Qualified Codes: A41.9 - Sepsis, unspecified organism Additional Impression: Respiratory failure Chronicity: acute Respiratory failure complication: hypoxia Qualified Codes : J96.01 - Acute respiratory failure with hypoxia
[2017-05-26] MEDS ORDERED: ALBUT/IPRATROP 3MG/0.5MG NEB 3 ML VIAL INH ONE (20:15)
[2017-05-26 20:30] VITALS: PULSE 99; O2SAT 90
[2017-05-26 20:35] VITALS: PULSE 99; O2SAT 94
[2017-05-26 20:38] LABS: ISTAT CREATININE 2.2 mg/dl (0.6-1.3); ISTAT HEMOGLOBIN 11.6 g/dl (12.0-16.0); ISTAT IONIZED CALCIUM 1.17 mmol/l (1.12-1.32)
[2017-05-26 20:48] LABS: INR 1.8 (0.9-1.1); PARTIAL THROMBOPLASTIN RATIO 1.4; PROTHROMBIN TIME (PATIENT) 19.2 SECONDS (9.0-12.0)
--- NOTE | 2017-05-26 20:50 | DIAGNOSTIC IMAGING REPORT ---
CHEST ONE VIEW PORTABLE HISTORY: Sepsis COMPARISON: Chest 03/26/2017. FINDINGS: The heart remains enlarged. Right basilar linear densities which have improved. The left lung is clear. No pleural effusions. No pneumothorax. Right jugular dual-lumen catheter terminates in the SVC. No evidence for pulmonary edema. IMPRESSION: 1. Improved aeration within the base of the right lower lobe which favors resolving atelectasis or resolving pneumonia. 2. Stable cardiomegaly. No evidence for pulmonary edema. Electronically signed by: Jordon Littlejohn M.D. 05/26/2017 8:48 PM Dictated Date/Time: 05/26/2017 8:47 PM
[2017-05-26 20:59] LABS: ALT/SGPT 32 U/L (12-78); BLOOD UREA NITROGEN 20 mg/dl (7-18); BUN/CREATININE RATIO 9.1 (10-20); CALCIUM 9.1 mg/dl (8.5-10.1); CARBON DIOXIDE 29 mmol/L (21-32); CHLORIDE 99 mmol/L (98-107); GLUCOSE 150 mg/dl (70-99); POTASSIUM 4.2 mmol/L (3.5-5.1); SODIUM 135 mmol/L (136-145)
[2017-05-26 21:03] LABS: HEMATOCRIT 34.5 % (37-47); MEAN CELL VOLUME 86.3 fL (80-100); MEAN CORPUSCULAR HEMOGLOBIN 24.8 pg (25-34); MEAN CORPUSCULAR HGB CONC 28.7 g/dl (32-36); MEAN PLATELET VOLUME 8.5 fL (7.4-10.4); PLATELET COUNT 402 K/uL (130-400); WHITE BLOOD COUNT 25.42 K/uL (4.8-10.8)
[2017-05-26 21:04] LABS: ALB/GLOB RATIO 0.6 (0.9-2); ALKALINE PHOSPHATASE 202 U/L (45-117); AST/SGOT 43 U/L (15-37); CKMB/CK RATIO 3.5 (0-3.0)
[2017-05-26 21:06] LABS: ANISOCYTOSIS PRESENT; BASO % 0.2 %; BASO ABS # 0.06 K/uL (0-0.2); COMPLETE YES; EOS % 1.2 %; HYPOCHROMIA PRESENT; IG% 0.7 %; LYMPH % 5.9 %; LYMPH ABS # 1.51 K/uL (1.2-3.4); MONO % 9.4 %; NEUT % 82.6 %
[2017-05-26] MEDS ORDERED: SODIUM CHLORIDE 0.9% 500ML 500 ML IV STA (21:17)
[2017-05-26 21:27] LABS: URINE APPEARANCE CLOUDY (CLEAR); URINE COLOR DK YELLOW; URINE EPITHELIAL CELL AUTO >30 /lpf (0-5); URINE NITRITE NEG (NEG); UROBILINOGEN NEG (NEG); ZZURINE CULT IF INDIC CATH YES
[2017-05-26 21:30] LABS: MANUAL MICROSCOPIC REQUIRED? NO; REVIEW REQ? YES; URINE BILIRUBIN NEG (NEG)
[2017-05-26] MEDS ORDERED: AMOX875T PO (21:45)
[2017-05-26] MEDS ORDERED: DEXTROSE 50% 50 ML SYR IV PRN (22:45)
[2017-05-26] MEDS ORDERED: GLUCOSE 40% GEL 15 GM TUBE PO PRN (22:45)
[2017-05-26] MEDS ORDERED: ACETAMINOPHEN 325 MG TAB PO PRN (22:45)
[2017-05-26] MEDS ORDERED: GLUCAGON FOR INJ 1 MG VIAL SQ PRN (22:45)
[2017-05-26] MEDS ORDERED: GLUCOSE 10 TABS/TUBE PO PRN (22:45)
[2017-05-26] MEDS ORDERED: PATIENT'S HEIGHT AND/OR WEIGHT NEEDED STA (22:56)
[2017-05-26] MEDS ORDERED: LEVOFLOXACIN CONSULT ACTIVE PRN (23:00)
[2017-05-26] MEDS ORDERED: PIPERACILL/TAZOBAC CONSULT ACTIVE PRN (23:00)
[2017-05-26] MEDS ORDERED: VANCOMYCIN CONSULT ACTIVE PRN (23:00)
--- NOTE | 2017-05-26 23:16 | History and Physical ---
History & Physical Date & Time of Service: May 26, 2017 at 22:57 Chief Complaint: Cold For 3 Days Primary Care Physician: Narendra Gonzalez M.D. History of Present Illness Source: patient, clinic records, hospital records 62 year old female with history of COPD on chronic 2 liters via nasal cannula, ESRD, DM 2, Chronic A fib on coumadin, CHF Rightsided, Chronic wounds, presenting with shortness of breath x 1 day. Patient was feeling fine since her discharge from [facility] last month until 3 days ago when she started to have chills. Today, patient was having shortness of breath, went to HD with no problems, but upon arriving home became more short of breath, thus brought to the ER. She has occasional dry cough, but otherwise denies headache, nausea, chest pain , abdominal pain, problems urinating or with BMs. Patient was received hypoxic in the low 80s, placed on Bipap with improvement to >90%. CXR showing possible resolving pneumonia on the right base, no pulmonary edema. WBC elevated at 25k. On my exam, patient is wearing the bipap mask, smiling, in good spirits, not in respiratory distress, speaks in sentences with no effort. States her breathing is improved compared to arrival. Denies chest pain, palpitations, dizziness, nausea. No other symptoms Past Medical/Surgical History Medical Problems: (1) Atrial fibrillation Status: Chronic (2) Chronic respiratory failure with hypoxia Status: Chronic (3) chronic wound Status: Chronic (4) COPD (chronic obstructive pulmonary disease) Status: Chronic (5) Depression Status: Chronic (6) DM type 2 (diabetes mellitus, type 2) Status: Chronic (7) ESRD (end stage renal disease) on dialysis Status: Chronic (8) HLD (hyperlipidemia) Status: Chronic (9) HTN (hypertension) Status: Chronic (10) Hypothyroidism Status: Chronic (11) Neuropathy Status: Chronic (12) Pulmonary HTN Status: Chronic (13) RHF (right heart failure) Status: Chronic Surgical Problems: (1) S/P cholecystectomy Status: Chronic (2) S/P debridement Permanent Comment: 08/30/2016- debridement bilateral lower extremity and buttock wounds Status: Chronic Family History Diabetes mellitus MOTHER FH: brain cancer FATHER FH: heart disease MOTHER Social History Smoking Status: Former Smoker Smokeless Tobacco Use: No Alcohol Use: none Drug Use: none Marital Status: Housing status: lives with family Occupational Status: disabled Immunizations History of Influenza Vaccine: Yes Influenza Vaccine Date: Jun 19, 2016 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 Allergies Coded Allergies: Bacitracin (Verified Allergy, Intermediate, RASH,ITCH, 05/26/17) Celecoxib (Verified Allergy, Intermediate, RASH TO SULFA DRUGS, 05/26/17) Neomycin (Verified Allergy, Intermediate, RASH,ITCH, 05/26/17) Polymyxin B (Verified Allergy, Intermediate, RASH,ITCH, 05/26/17) Sulfa Antibiotics (Verified Allergy, Intermediate, RASH,HAS TAKEN GLIPIZIDE W/O REACTION, 05/26/17) Tigecycline (Verified Adverse Reaction, Severe, MILD PANCREATITIS, 05/26/17 ) 61 yo F placed on IV tigecycline for wound infection, after 5-6 days developed decreased appetite, had nonspecific abdominal pain from admission and was refusing to lie back for daily abd assessments because of pain in other areas of abdomen. Decreased appetite persisted, also in context of worsening depression and stated apathy, WBC continued to increase, CT chest revealed n/s changes possibly consistent with mild pancreatitis, lipase drawn and elevated, other causes ruled out, clinical pancreatitis on exam. Diruretics/albumin stopped to avoid further rehydration, tigecycline discontinued, continuing supportive care. Codeine (Verified Adverse Reaction, Intermediate, GI UPSET, 05/26/17) Home Medications Scheduled Amoxicillin & Pot Clavulanate (Augmentin 875-125 mg), 1 TAB PO DAILY Ascorbic Acid (Vitamin C), 500 MG PO BID Aspirin (Aspirin Ec), 81 MG PO DAILY Atorvastatin (Lipitor), 40 MG PO DAILY B-Complex W/ C & Folic Acid (Renal Vitamin 0.8 mg), 1 TAB PO DAILY Calcitriol (Rocaltrol Cap), 0.25 MCG PO UD Cholecalciferol (Vitamin D3), 1 CAP PO DAILY Ciprofloxacin Tab (Cipro), 750 MG PO HS Collagenase (Santyl), 1 APPLN EXT DAILY Cyanocobalamin (Vitamin B-12), 1,000 MCG PO DAILY Docusate Sodium (Colace), 1 CAP PO BID Gabapentin (Neurontin), 400 MG PO BID Home O2 Therapy (Oxygen), 4 LITERS NA CONTINOUS Insulin Aspart (Novolog), Unknown Dose SC AC Insulin Glargine (Lantus Solostar), 30 UNITS SC HS Levothyroxine Sodium (Synthroid), 125 MCG PO DAILY Magnesium Oxide (Mag-Ox), 400 MG PO BID Metoprolol Succ (Toprol Xl) (Toprol-Xl), 25 MG PO DAILY Pantoprazole (Protonix), 20 MG PO DAILY Prednisone (Prednisone), 5 MG PO DAILY Sertraline (Zoloft), 100 MG PO DAILY Tiotropium [place] (Spiriva Handihaler), 1 CAP INH DAILY Warfarin Sodium (Coumadin), 5 MG PO DAILY Scheduled PRN Hydrocodone/Acetaminophen 5MG/325MG (Lenora 5MG/325MG), 1 TABLET PO Q6H PRN for Pain Review of Systems Constitutional- (+) chills; no weight loss Eyes- no acute visual changes ENT- no sinus drainage; no pharyngitis Pulmonary- (+) as noted above Cardiac- no chest pain, no palpitations, no orthopnea, no dependent edema GI- no nausea, no vomiting, no diarrhea, no melena, no hematochezia - no dysuria, no hematuria Musculoskeletal- no arthralgias, no myalgias Derm- no rashes, no new skin lesions, no changing skin lesions Hematologic- no unusual bruising, no unusual bleeding Lymphatics- no adenopathy Endocrine- no polyuria or polydipsia; no heat or cold intolerance Neuro- no headaches, no focal neurologic symptoms Psych- no anxiety, no depression Physical Exam Vital Signs Date Time Temp Pulse Resp B/P (MAP) Pulse Ox O2 Delivery O2 Flow Rate FiO2 05/26/17 22:04 92 20 91/42 94 BiPAP 40 05/26/17 21:34 93 22 86/49 99 Room Air 8.0 40 05/26/17 20:51 94 BiPAP 8.0 40 05/26/17 20:38 96 05/26/17 20:35 99 94 40 05/26/17 20:30 99 24 90 Nasal Cannula 6.0 05/26/17 19:58 37.4 102 18 98/62 82 Nasal Cannula 4.0 General- oriented x 3, not in distress, speaks in sentences with no effort on Bipap mask Head- atraumatic Eyes- PERRL, EOMI, anicteric ENT- oropharynx clear Neck- supple, no JVD, no adenopathy, no thyromegaly; carotids +2/2, no bruits appreciated Lungs- mild rales at the right base, otherwise, no wheezing, rhonchi, good air entry bilaterally Heart- regular rhythm; no murmur, normal rate Abdomen- normal bowel sounds, soft, nontender, (+) pannus, (+) wound vac in place LLQ, (+) 2 small wounds right hip region with dressing in place, no signs of infection Extremities- (+) bilateral lower leg edema grade 2, no calf tenderness; peripheral pulses intact Neuro- alert, oriented x 3; PERRL, EOMI; no gross focal deficits Skin- warm & dry Diagnostics Laboratory Results Results Past 24 Hours Test 05/26/17 20:20 05/26/17 20:24 05/26/17 20:28 05/26/17 21:14 Range/Units White Blood Count 25.42 4.8-10.8 K/uL Red Blood Count 4.00 4.2-5.4 M/uL Hemoglobin 9.9 12.0-16.0 g/dL Hematocrit 34.5 37-47 % Mean Corpuscular Volume 86.3 80-100 fL Mean Corpuscular Hemoglobin 24.8 25-34 pg Mean Corpuscular Hemoglobin Concent 28.7 32-36 g/dl Platelet Count 402 130-400 K/uL Mean Platelet Volume 8.5 7.4-10.4 fL Neutrophils (%) (Auto) 82.6 % Lymphocytes (%) (Auto) 5.9 % Monocytes (%) (Auto) 9.4 % Eosinophils (%) (Auto) 1.2 % Basophils (%) (Auto) 0.2 % Neutrophils # (Auto) 20.97 1.4-6.5 K/uL Lymphocytes # (Auto) 1.51 1.2-3.4 K/uL Monocytes # (Auto) 2.38 0.11-0.59 K/uL Eosinophils # (Auto) 0.31 0-0.5 K/uL Basophils # (Auto) 0.06 0-0.2 K/uL RDW Standard Deviation 64.1 36.4-46.3 fL RDW Coefficient of Variation 20.2 11.5-14.5 % Immature Granulocyte % (Auto) 0.7 % Immature Granulocyte # (Auto) 0.19 0.00-0.02 K/uL Hypochromasia PRESENT Basophilic Stippling OCCASIONAL Anisocytosis PRESENT Prothrombin Time 19.2 9.0-12.0 SECONDS Prothromb Time International Ratio 1.8 0.9-1.1 Activated Partial Thromboplast Time 36.6 21.0-31.0 SECONDS Partial Thromboplastin Ratio 1.4 Sodium Level 135 136-145 mmol/L Potassium Level 4.2 3.5-5.1 mmol/L Chloride Level 99 98-107 mmol/L Carbon Dioxide Level 29 21-32 mmol/L Anion Gap 7.0 11.0 16-25 mmol/L Blood Urea Nitrogen 20 7-18 mg/dl Creatinine 2.20 0.60-1.20 mg/dl Estimated GFR () 26.8 Estimated GFR (Non- 23.1 BUN/Creatinine Ratio 9.1 10-20 Random Glucose 150 70-99 mg/dl Calcium Level 9.1 8.5-10.1 mg/dl Total Bilirubin 0.3 0.2-1 mg/dl Aspartate Amino Transf (AST/SGOT) 43 15-37 U/L Alanine Aminotransferase (ALT/SGPT) 32 12-78 U/L Alkaline Phosphatase 202 45-117 U/L Total Creatine Kinase 17 26-192 U/L Creatine Kinase MB 0.6 0.5-3.6 ng/ml Creatine Kinase MB Ratio 3.5 0-3.0 Troponin I 0.017 0-0.045 ng/ml Total Protein 6.8 6.4-8.2 gm/dl Albumin 2.4 3.4-5.0 gm/dl Globulin 4.4 2.5-4.0 gm/dl Albumin/Globulin Ratio 0.6 0.9-2 Bedside Lactic Acid Venous 2.53 0.90-1.70 mmol/L Bedside Hemoglobin 11.6 12.0-16.0 g/dl Bedside Hematocrit 34 37-47 % Bedside Sodium 135 135-144 mEq/L Bedside Potassium 4.3 3.3-5.0 mEq/L Bedside Chloride 97 101-112 mEq/L Bedside Total CO2 32 24-31 mEq/l Bedside Blood Urea Nitrogen 19 7-18 mg/dl Bedside Creatinine 2.2 0.6-1.3 mg/dl Bedside Glucose (other) 151 70-99 mg/dl Bedside Ionized Calcium (Briseyda) 1.17 1.12-1.32 mmol/l Test 05/26/17 21:15 Range/Units Urine Color DK YELLOW Urine Appearance CLOUDY CLEAR Urine pH 5.0 4.5-7.5 Urine Specific [place] 1.030 1.000-1.030 Urine Protein 1+ NEG Urine Glucose (UA) NEG NEG Urine Ketones TRACE NEG Urine Occult Blood 2+ NEG Urine Nitrite NEG NEG Urine Bilirubin NEG NEG Urine Urobilinogen NEG NEG Urine Leukocyte Esterase LARGE NEG Urine WBC (Auto) >30 0-5 /hpf Urine RBC (Auto) 0-4 0-4 /hpf Urine Hyaline Casts (Auto) 1-5 0-5 /lpf Urine Epithelial Cells (Auto) >30 0-5 /lpf Urine Bacteria (Auto) NEG NEG Urine Renal Epithelial Cells 0-5 0-5 /lpf Urine Pathogenic Casts 0 /lpf Urine Yeast (Auto) PRESENT NONE PRSENT Microbiology Results 05/26/17 Blood Culture, Received Pending 05/26/17 Blood Culture, Received Pending 05/26/17 Urine Culture, Received Pending Diagnostic Radiology CHEST ONE VIEW PORTABLE HISTORY: Sepsis COMPARISON: Chest 03/26/2017. FINDINGS: The heart remains enlarged. Right basilar linear densities which have improved. The left lung is clear. No pleural effusions. No pneumothorax. Right jugular dual-lumen catheter terminates in the SVC. No evidence for pulmonary edema. IMPRESSION: 1. Improved aeration within the base of the right lower lobe which favors resolving atelectasis or resolving pneumonia. 2. Stable cardiomegaly. No evidence for pulmonary edema. EKG HR 96, normal sinus rhythm, no signs of acute ischemia or infarct Impression Assessment and Plan 62 year old female with history of COPD on chronic 2 liters via nasal cannula, ESRD, DM 2, Chronic A fib on coumadin, CHF Rightsided, Chronic wounds, presenting with shortness of breath x 1 day. 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 - ff up cultures - has history of MRSA, check nasal MRSA - CT chest without contrast to further characterize right sided infiltrates on cxr - empiric Vanc, Zosyn, Levaquin - wean off Bipap to usual 2 liters NC Nebs no wheezing, will just resume usual Prednisone 5mg po daily - INR 1.8 PE unlikely at this point but will check doppler lower ext as patient has history of DVT per patient - Speech Therapy eval to r/o Aspiration given location of pneumonic process ESRD - euvolemic - HD On mwf - consult Nephro DM 2 - did not eat today - BSG 150s - hold Lantus 30 units in HS tonight, resume accordingly ISS for now CHRONIC ATRIAL FIBRILLATION ON COUMADIN - INR 1.8 coumadin 7.5 mg po one tonight - monitor INR resume usual Coumadin 5mg po daily - continue Metoprolol CHF RIGHT SIDED - on HD HYPOTHYROIDISM - continue usual Levothyroxine CHRONIC ANEMIA - appears stable CHRONIC ABDOMINAL WOUND - on Wound Vac - Augmentin and Cipro listed on [facility], not on [facility] records will verify Wound care consult DVT PROPH INR 1.8 on coumadin Full code per patient Disposition lives with family ff up with Dr. Gonzalez for PCP ff up with Dr. Houston for Nephro VTE Prophylaxis VTE Risk Assessment Done? Y/N: Yes Risk Level: Moderate Given or contraindicated: Warfarin (Coumadin)
[2017-05-26 23:20] VITALS: BP 99/51; PULSE 89; TEMP 37.7; O2SAT 92; Ht 162.6 cm; Wt 105.5 kg
[2017-05-26 23:20] LABS: ARTERIAL BLD GAS O2 SATURATION 93.7 % (90-95); ARTERIAL BLOOD GAS BASE EXCESS 1.7 mEq/L (-9-1.8); ARTERIAL BLOOD GAS HCO3 27 mmol/L (19-24); ARTERIAL BLOOD GAS PO2 82 mm/Hg (80-95); ARTERIAL BLOOD GAS pH 7.42 (7.35-7.45)
[2017-05-26 23:22] LABS: ALLEN TEST POS (POS); O2 ADMINISTRATION 40% BIPAP
[2017-05-26 23:30] VITALS: PULSE 85; O2SAT 98
[2017-05-27] VITALS (11 sets, daily range): BP systolic 96–118; BP diastolic 47–72; PULSE 60–90; TEMP 36.3–37.6; O2SAT 86–99
[2017-05-27] MEDS ORDERED: NURSING VERBAL MED ORDER ONE (00:15)
[2017-05-27] MEDS ORDERED: VANCOMYCIN INJ 1,000 MG in SODIUM CHLORIDE 0.9% 250ML 250 ML IV ONE (01:30)
[2017-05-27] MEDS: LEVALBUTEROL 1.25MG/0.5ML NEB INH SCH ×4 (01:34→19:06)
[2017-05-27] MEDS: IPRATROPIUM BROMIDE NEB SOLN 0.02% 2.5 ML VIAL INH SCH ×4 (01:34→19:06)
[2017-05-27] MEDS ORDERED: WARFARIN SOD 7.5 MG TAB PO ONE (02:00)
[2017-05-27] MEDS: HYDROCODONE/ACETAMOPHEN 5/325MG TAB PO PRN ×3 (02:37→16:31)
[2017-05-27] MEDS ORDERED: LEVALBUTEROL/IPRATROPIUM NEB INH SCH (03:00)
[2017-05-27] MEDS: PIPERACILL/TAZOBAC IV 4.5 GM in DEXTROSE 5% 100ML IV SCH ×2 (04:26→16:30)
[2017-05-27 05:27] LABS: BASO % 0.2 %; BASO ABS # 0.03 K/uL (0-0.2); HEMATOCRIT 29.7 % (37-47); IG% 0.7 %; LYMPH % 3.8 %; LYMPH ABS # 0.73 K/uL (1.2-3.4); MEAN CELL VOLUME 85.3 fL (80-100); MEAN CORPUSCULAR HEMOGLOBIN 24.7 pg (25-34); MEAN PLATELET VOLUME 8.6 fL (7.4-10.4); MONO % 5.7 %; NEUT % 89.6 %; PLATELET COUNT 304 K/uL (130-400); RED BLOOD COUNT 3.48 M/uL (4.2-5.4); WHITE BLOOD COUNT 19.29 K/uL (4.8-10.8)
[2017-05-27 05:46] LABS: BUN/CREATININE RATIO 10.5 (10-20); CALCIUM 8.3 mg/dl (8.5-10.1); CREATININE 2.4 mg/dl (0.60-1.20); POTASSIUM 4.5 mmol/L (3.5-5.1)
[2017-05-27 05:47] LABS: INR 1.6 (0.9-1.1); PROTHROMBIN TIME (PATIENT) 17.5 SECONDS (9.0-12.0)
[2017-05-27] MEDS: LEVOTHYROXINE 125 MCG TAB PO SCH (05:47)
[2017-05-27 05:53] LABS: COMPLETE YES; HYPOCHROMIA PRESENT
--- NOTE | 2017-05-27 06:52 | DIAGNOSTIC IMAGING REPORT ---
(CHEST) THORAX WITHOUT CT DOSE: 823.67 mGy.cm HISTORY: Pneumonia POSSIBLE PNEUMONIA TECHNIQUE: Multiaxial CT images of the chest were performed without contrast. A dose lowering technique was utilized adhering to the principles of ALARA. COMPARISON: None. FINDINGS: Parenchymal infiltrate right lower lobe. Small right pleural effusion. Slight interstitial prominence to the mid to upper lungs bilaterally. Central catheters. Vena cava. Mild cardiomegaly. IMPRESSION: 1. Parenchymal infiltrate right base. 2. Small right pleural effusion. 3. Slight nonspecific interstitial change throughout all remaining lungs. 4. 8 mm nodule right base anteriorly transaxial image 37. Follow-up per Fleischner criteria. Please refer to below summary of Fleischner criteria recommendations for follow-up of incidental CT nodules (Kristi Torre, Guidelines for management of small pulmonary nodules detected on CT scans: A statement from the Fleischner Society, Radiology [phone]: [id number].) SOLID NODULES Solitary nodule size: <6 mm * low risk patients: no follow-up needed * high risk patients: optional CT at 12 months Solitary nodule size: 6-8 mm * low risk patients: follow-up at 6-12 months, then consider further follow-up at 18-24 months * high risk patients: initial follow-up CT at 6-12 months and then at 18-24 months if no change Solitary nodule size: >8 mm * either low or high risk patients - consider follow-up CT at 3 months, and/or CT-PET, and/or biopsy Multiple nodules size: <6 mm * low risk patients: no routine follow-up * high risk patients: optional CT at 12 months Multiple nodules size: 6-8 mm * low risk patients: follow-up at 3-6 months, then consider further follow-up at 18-24 months * high risk patients: follow-up at 3-6 months, then at 18-24 months if no change Multiple nodules size: >8 mm * low risk patients: follow-up at 3-6 months, then consider further follow-up at 18-24 months * high risk patients: follow-up at 3-6 months, then at 18-24 months if no change Note: newly detected indeterminate nodule in persons 35 years of age or older. * low risk patients: minimal or absent history of smoking and/or other known risk factors * high risk patients: history of smoking or of other known risk factors (e.g. first degree relative with lung cancer, or exposure to asbestos, radon, uranium) * if a nodule up to 8 mm is partly solid or is ground glass further follow-up is required after 24 months to exclude possible slow growing adenocarcinoma (DEBBY) SUBSOLID NODULES Solitary pure ground-glass nodule * nodule size <6 mm - no CT follow-up required * nodule size >=6 mm - follow-up CT at 6-12 months, then every 2 years until 5 years Solitary part-solid nodule * nodule size <6 mm - no CT follow-up required * nodule size >=6 mm - follow-up CT at 3-6 months. If unchanged, and solid component remains <6 mm, then annual follow-up for 5 years Multiple subsolid nodules * nodule size <6 mm - follow-up CT at 3-6 months, consider further follow-up at 2 and 4 years if stable * nodule size >=6 mm - follow-up CT at 3-6 months, subsequent management based on the most suspicious nodule(s) The above report was generated using voice recognition software. It may contain grammatical, syntax or spelling errors. Electronically signed by: Bird Patino M.D. 05/27/2017 6:51 AM Dictated Date/Time: 05/27/2017 6:49 AM
--- NOTE | 2017-05-27 06:54 | DIAGNOSTIC IMAGING REPORT ---
VENOUS DOPPLER LWR EXT BILA HISTORY: Pain. Edema. R/O DVT COMPARISON STUDY: None. FINDINGS: There is normal compressibility, flow, and augmentation within the bilateral lower extremity deep venous systems. IMPRESSION: No DVT within the right or left lower extremity. The above report was generated using voice recognition software. It may contain grammatical, syntax or spelling errors. Electronically signed by: Bird Patino M.D. 05/27/2017 6:52 AM Dictated Date/Time: 05/27/2017 6:52 AM
[2017-05-27] MEDS: NEPHROCAPS PO SCH (07:50)
[2017-05-27] MEDS: GABAPENTIN 400 MG CAP PO SCH ×2 (07:51→20:35)
[2017-05-27] MEDS: SERTRALINE HCL 100 MG TAB PO SCH (07:51)
[2017-05-27] MEDS: ATORVASTATIN 40 MG TAB PO SCH (07:51)
[2017-05-27] MEDS: ASPIRIN 81 MG ECTAB PO SCH (07:52)
[2017-05-27] MEDS: MAGNESIUM OXIDE 400 MG TAB PO SCH ×2 (07:52→20:35)
[2017-05-27] MEDS: METOPROLOL SUCC 25MG EXT REL TAB PO SCH (07:52)
[2017-05-27] MEDS: DOCUSATE SODIUM 100 MG CAP PO SCH ×2 (07:52→20:35)
[2017-05-27] MEDS: PANTOprazole SOD 40 MG TAB PO SCH (07:53)
[2017-05-27] MEDS: CHOLECALCIFEROL 1000 INTER.UNIT TAB PO SCH (07:53)
[2017-05-27] MEDS: TIOTROPIUM BROMIDE 5 PUFF/90 MCG INH INH SCH (07:53)
[2017-05-27] MEDS: COLLAGENASE OINT 30 GM TUBE EXT SCH (07:54)
[2017-05-27] MEDS: INSULIN ASPART 100 UNITS/ML 3 ML PEN SC SCH ×4 (08:12→20:58)
[2017-05-27] MEDS ORDERED: PHARMACY GLYCEMIC MGMT CONSULT PRN (08:30)
--- NOTE | 2017-05-27 09:41 | Nephrology Consultation ---
Nephrology Consultation Date of Consultation: May 27, 2017. Attending Physician: Dr Dias Requesting Physician: Dr Chaudhary Reason for Consultation: ESRD w/ resp failure History of Present Illness 62 year old female w/ ESRD on MWF HD at [facility] had routine HD yesterday but after txs the chills she'd been having for a 3 days worsened and she became more dyspneic and fatigued, so she came to ED for eval. She uses 024LNC at baseline and in ER was satting at 80% on 4L; w/ improved sats on bipap. She is admitted for acute on chronic respiratory failure and w/ concern for health care associated PNA. Her WBC on presentation was 25K. This am she feels improved though still notes pleuritic chest pain; she is currently on 2.5L 02NC. No fever. Denies recent issues w/ missed HD; dialyzes under care of Dr Houston via [facility] > AVF placement was deferred by vascular until her chronic wounds heal and remain healed for a few mos. She has a L lower abd wound vac currently and a few other healing wounds on her pannus./abd Past Medical/Surgical History Medical Problems: (1) Acute exacerbation of CHF (congestive heart failure) Status: Acute (2) Acute hemorrhage Status: Acute (3) FRED (acute kidney injury) Status: Acute (4) Anemia Status: Acute (5) CHF (congestive heart failure) Status: Acute (6) Congestive heart failure Status: Acute (7) Congestive heart failure Status: Acute (8) Congestive heart failure Status: Acute (9) COPD exacerbation Status: Acute (10) Hypoxia Status: Acute (11) Hypoxia Status: Acute (12) Leukocytosis Status: Acute (13) Leukocytosis Status: Acute (14) Low grade fever Status: Acute (15) Low grade fever Status: Acute (16) Pleural effusion, right Status: Acute (17) Pressure ulcer Status: Acute (18) Rapid atrial fibrillation Status: Acute (19) Rapid atrial fibrillation Status: Acute (20) Renal insufficiency Status: Acute (21) Respiratory failure Status: Acute (22) Sepsis Status: Acute (23) Sepsis Status: Acute (24) Sepsis associated hypotension Status: Acute (25) Severe sepsis with acute organ dysfunction Status: Acute (26) Shortness of breath Status: Acute (27) Supratherapeutic INR Status: Acute PAST MEDICAL HISTORY: AFib on coumadin, end-stage renal disease on hemodialysis , COPD on daily prednisone, right-sided heart failure, diabetes on insulin, hyperlipidemia, hypertension, chronic hypoxic respiratory failure on baseline 024LNC, hypothyroidism, chronic pannus wounds needing wound vacs adn ongoing care/debridement; also had BLLE wounds needing similar care in past. PAST SURGICAL HISTORY: Bilateral lower extremity debridement, history cholecystectomy, and dialysis access placement. Family History Diabetes mellitus MOTHER FH: brain cancer FATHER FH: heart disease MOTHER Social History Smoking Status: Former Smoker Alcohol Use: none Drug Use: none Marital Status: Housing Status: lives with family Occupation Status: disabled Allergies Coded Allergies: Bacitracin (Verified Allergy, Intermediate, RASH,ITCH, 05/26/17) Celecoxib (Verified Allergy, Intermediate, RASH TO SULFA DRUGS, 05/26/17) Neomycin (Verified Allergy, Intermediate, RASH,ITCH, 05/26/17) Polymyxin B (Verified Allergy, Intermediate, RASH,ITCH, 05/26/17) Sulfa Antibiotics (Verified Allergy, Intermediate, RASH,HAS TAKEN GLIPIZIDE W/O REACTION, 05/26/17) Tigecycline (Verified Adverse Reaction, Severe, MILD PANCREATITIS, 05/26/17 ) 61 yo F placed on IV tigecycline for wound infection, after 5-6 days developed decreased appetite, had nonspecific abdominal pain from admission and was refusing to lie back for daily abd assessments because of pain in other areas of abdomen. Decreased appetite persisted, also in context of worsening depression and stated apathy, WBC continued to increase, CT chest revealed n/s changes possibly consistent with mild pancreatitis, lipase drawn and elevated, other causes ruled out, clinical pancreatitis on exam. Diruretics/albumin stopped to avoid further rehydration, tigecycline discontinued, continuing supportive care. Codeine (Verified Adverse Reaction, Intermediate, GI UPSET, 05/26/17) Medications Current Inpatient Medications Medications (Trade) Dose Ordered Sig/Tyrone Route Start Time Stop Time Status Last Admin Dose Admin Levofloxacin (Consult) 1 ea UD PRN N/A 05/26/17 23:00 06/25/17 22:59 Insulin Aspart (novoLOG ASPART) SLIDING SCALE If C... ACHS SC 05/27/17 06:45 06/26/17 06:59 Glucose (Glucose 40% Gel) 15-30 GRAMS 15 GRAMS... UD PRN PO 05/26/17 22:45 06/25/17 22:44 Glucose (Glucose Chew Tab) 4-8 Tablets 4 Tabl... UD PRN PO 05/26/17 22:45 06/25/17 22:44 Dextrose (Dextrose 50% 50ML Syringe) 25-50ML OF 50% DW IV FOR... UD PRN IV 05/26/17 22:45 06/25/17 22:44 Glucagon (Glucagon Inj) 1 mg UD PRN SQ 05/26/17 22:45 06/25/17 22:44 Acetaminophen (Tylenol Tab) 650 mg Q4H PRN PO 05/26/17 22:45 06/25/17 22:44 Ipratropium [place] (Atrovent 0.02% 0.5MG/2.5ML Neb) 0.5 mg Q6R INH 05/27/17 03:00 06/26/17 02:59 05/27/17 01:34 0.5 MG Levalbuterol (Xopenex 1.25MG/ 0.5ML Neb) 1.25 mg Q6R INH 05/27/17 03:00 06/26/17 02:59 05/27/17 01:34 1.25 MG Vancomycin HCl (Consult) 1 ea UD PRN N/A 05/26/17 23:00 06/25/17 22:59 Piperacillin Sod/ Tazobactam Sod (Consult) 1 ea UD PRN N/A 05/26/17 23:00 06/25/17 22:59 Aspirin (Ecotrin Tab) 81 mg DAILY PO 05/27/17 09:00 06/26/17 08:59 Atorvastatin Calcium (Lipitor Tab) 40 mg DAILY PO 05/27/17 09:00 06/26/17 08:59 Calcitriol (Rocaltrol Cap) 0.25 mcg MoWeFr@0900 PO 05/28/17 09:00 06/27/17 08:59 Collagenase (Santyl Oint) 1 appln DAILY EXT 05/27/17 09:00 06/26/17 08:59 Docusate Sodium (coLACE CAP) 100 mg BID PO 05/27/17 09:00 06/26/17 08:59 Gabapentin (Neurontin Cap) 400 mg BID PO 05/27/17 09:00 06/26/17 08:59 Acetaminophen/ Hydrocodone Bitart ([place] 5/325 Tab) 1 tab Q6H PRN PO 05/26/17 23:00 06/09/17 22:59 05/27/17 02:37 1 TAB Levothyroxine Sodium (Synthroid Tab) 125 mcg DAILYBB PO 05/27/17 06:00 06/26/17 05:59 05/27/17 05:47 125 MCG Magnesium Oxide (Mag-Ox Tab) 400 mg BID PO 05/27/17 09:00 06/26/17 08:59 Metoprolol Succinate (Toprol Xl Tab) 25 mg DAILY PO 05/27/17 09:00 06/26/17 08:59 Prednisone (PredniSONE TAB) 5 mg DAILY PO 05/27/17 09:00 06/26/17 08:59 Sertraline HCl (Zoloft Tab) 100 mg DAILY PO 05/27/17 09:00 06/26/17 08:59 Tiotropium [place] (Spiriva Handihaler Inhaler) 1 puff DAILY INH 05/27/17 09:00 06/26/17 08:59 Warfarin Sodium (Coumadin Tab) 5 mg DAILY@1600 PO 05/27/17 16:00 06/26/17 15:59 Vitamin B Complex/ Vit C/Folic Acid (Nephrocaps) 1 cap DAILY PO 05/27/17 09:00 06/26/17 08:59 Cholecalciferol (Vitamin D Tab) 2,000 inter.unit DAILY PO 05/27/17 09:00 06/26/17 08:59 Pantoprazole Sodium (Protonix Tab) 40 mg DAILY PO 05/27/17 09:00 06/26/17 08:59 Piperacillin Sod/ Tazobactam Sod 4.5 gm/Dextrose 120 ml @ 30 mls/hr Q12H IV 05/27/17 04:00 06/03/17 03:59 05/27/17 04:26 30 MLS/HR Levofloxacin 500 mg/Prmx 100 ml @ 100 mls/hr Q48H IV 05/28/17 22:00 06/02/17 21:59 Home Meds and Scripts Medications Dose Route/Sig Max Daily Dose Days Date Category Dose Instructions Augmentin 875-125 mg (Amoxicillin & Pot Clavulanate) 1 Tab Tab 1 Tab PO DAILY 05/26/17 Reported Cipro (Ciprofloxacin) 250 Mg Tab 750 Mg PO HS 14 05/05/17 Rx Toprol-Xl (Metoprolol Succinate) 25 Mg Tabcr 25 Mg PO DAILY 04/29/17 Reported Santyl (Collagenase) 250 Unit/Gm Oin 1 Appln EXT DAILY 30 03/29/17 Rx [place] 5MG/325MG (Acetaminophen/Hydrocodone Bitart) Tab 1 Tablet PO Q6H PRN 03/26/17 Reported PRN PAIN Oxygen Gas 4 Liters NA CONTINOUS 03/26/17 Reported Novolog (Insulin Aspart) 100 Units/Ml Inj Unknown Dose SC AC 03/26/17 Reported SLIDING SCALE Lantus Solostar (Insulin Glargine) 100 Unit/Ml Inj 30 Units SC HS 03/26/17 Reported Aspirin Ec (Aspirin) 81 Mg Tab 81 Mg PO DAILY 03/26/17 Reported Vitamin D3 (Cholecalciferol) 2,000 Unit Cap 1 Cap PO DAILY 03/26/17 Reported Spiriva Handihaler (Tiotropium Knifley) 30 Puff/540 Mcg Aerp 1 Cap INH DAILY 03/26/17 Reported Coumadin (Warfarin Sodium) 5 Mg Tab 5 Mg PO DAILY 03/26/17 Reported Colace (Docusate Sodium) 100 Mg Cap 1 Cap PO BID 03/26/17 Reported Renal Vitamin 0.8 mg (B-Complex W/ C & Folic Acid) 1 Tab Tab 1 Tab PO DAILY 03/26/17 Reported Vitamin C (Ascorbic Acid) 500 Mg Tab 500 Mg PO BID 10/15/16 Reported Zoloft (Sertraline HCl) 100 Mg Tab 100 Mg PO DAILY 10/15/16 Reported Prednisone 5 Mg Tab 5 Mg PO DAILY 08/10/16 Reported Lipitor (Atorvastatin Calcium) 40 Mg Tab 40 Mg PO DAILY 08/10/16 Reported Rocaltrol Cap (Calcitriol) 0.25 Mcg Cap 0.25 Mcg PO UD 07/11/16 Reported MWF Mag-Ox (Magnesium Oxide) 400 Mg Tab 400 Mg PO BID 07/11/16 Reported Vitamin B-12 (Cyanocobalamin) 1,000 Mcg Tab 1,000 Mcg PO DAILY 09/16/14 Reported Synthroid (Levothyroxine Sodium) 125 Mcg Tab 125 Mcg PO DAILY 09/16/14 Reported Neurontin (Gabapentin) 400 Mg Cap 400 Mg PO BID 08/06/11 Reported Protonix (Pantoprazole Sodium) 20 Mg Tab 20 Mg PO DAILY 08/06/11 Reported Review of Systems Constitutional: + see HPI, + chills, + weakness, + fatigue, No fever Eyes: No worsening of vision ENT: No hearing loss, No trouble swallowing Respiratory: + see HPI, + shortness of breath, + dyspnea at rest, No cough Cardiac: + edema (improved), No chest pain, No PND Abdomen: + pain (laterally BL lower abdomen chronic/stable and per pt related to wound), No nausea, No vomiting, No diarrhea, No constipation Musculoskeletal: + swelling (stable chronic), No joint pain, No muscle pain Female : + problem reported (no change in chronic voiding habits) Neuro: + weakness, No memory loss, No balance problems Psych: No depression symptoms, No anxiety Heme: No abnormal bleeding/bruising Endo: + fatigue, No excessive thirst Skin: No rash, No itch, No new/changing skin lesions Physical Exam Date Time Temp Pulse Resp B/P (MAP) Pulse Ox O2 Delivery O2 Flow Rate FiO2 05/27/17 04:00 93 Nasal Cannula 4.0 05/27/17 04:00 37.6 84 22 111/47 (68) 93 Nasal Cannula 4.0 05/27/17 01:34 87 21 93 Nasal Cannula 4.0 05/26/17 23:30 85 98 40 05/26/17 23:20 37.7 89 26 99/51 92 Room Air 4.0 05/26/17 22:04 92 20 91/42 94 BiPAP 40 05/26/17 21:34 93 22 86/49 99 Room Air 8.0 40 05/26/17 20:51 94 BiPAP 8.0 40 05/26/17 20:38 96 05/26/17 20:35 99 94 40 05/26/17 20:30 99 24 90 Nasal Cannula 6.0 05/26/17 19:58 37.4 102 18 98/62 82 Nasal Cannula 4.0 General Appearance: WD/WN, no apparent distress, + obese, + pertinent finding ( on 02NC 2-3 L; appears tired but no resp distress) Eyes: EOMI ENT: hearing grossly normal Neck: supple Respiratory/Chest: lungs clear, no respiratory distress, + decreased breath sounds Cardiovascular: regular rate, rhythm, + pertinent finding (indurated BLE edema) Abdomen: normal bowel sounds, non tender, soft, + pertinent finding (vac L lateral abdomen, small R hip dressings) Extremities: non-tender, + pedal edema Neurologic/Psych: alert, normal mood/affect, oriented x 3 Skin: no jaundice, warm/dry, no rash, + pertinent finding (multiple abd wounds) Diagnostics Last 24 Hours Test 05/26/17 20:20 05/26/17 20:24 05/26/17 20:28 05/26/17 21:15 White Blood Count 25.42 K/uL Red Blood Count 4.00 M/uL Hemoglobin 9.9 g/dL Hematocrit 34.5 % Mean Corpuscular Volume 86.3 fL Mean Corpuscular Hemoglobin 24.8 pg Mean Corpuscular Hemoglobin Concent 28.7 g/dl Platelet Count 402 K/uL Mean Platelet Volume 8.5 fL Neutrophils (%) (Auto) 82.6 % Lymphocytes (%) (Auto) 5.9 % Monocytes (%) (Auto) 9.4 % Eosinophils (%) (Auto) 1.2 % Basophils (%) (Auto) 0.2 % Neutrophils # (Auto) 20.97 K/uL Lymphocytes # (Auto) 1.51 K/uL Monocytes # (Auto) 2.38 K/uL Eosinophils # (Auto) 0.31 K/uL Basophils # (Auto) 0.06 K/uL RDW Standard Deviation 64.1 fL RDW Coefficient of Variation 20.2 % Immature Granulocyte % (Auto) 0.7 % Immature Granulocyte # (Auto) 0.19 K/uL Hypochromasia PRESENT Basophilic Stippling OCCASIONAL Anisocytosis PRESENT Prothrombin Time 19.2 SECONDS Prothromb Time International Ratio 1.8 Activated Partial Thromboplast Time 36.6 SECONDS Partial Thromboplastin Ratio 1.4 Sodium Level 135 mmol/L Potassium Level 4.2 mmol/L Chloride Level 99 mmol/L Carbon Dioxide Level 29 mmol/L Anion Gap 7.0 mmol/L 11.0 mmol/L Blood Urea Nitrogen 20 mg/dl Creatinine 2.20 mg/dl Estimated GFR () 26.8 Estimated GFR (Non- 23.1 BUN/Creatinine Ratio 9.1 Random Glucose 150 mg/dl Calcium Level 9.1 mg/dl Total Bilirubin 0.3 mg/dl Aspartate Amino Transf (AST/SGOT) 43 U/L Alanine Aminotransferase (ALT/SGPT) 32 U/L Alkaline Phosphatase 202 U/L Total Creatine Kinase 17 U/L Creatine Kinase MB 0.6 ng/ml Creatine Kinase MB Ratio 3.5 Troponin I 0.017 ng/ml Total Protein 6.8 gm/dl Albumin 2.4 gm/dl Globulin 4.4 gm/dl Albumin/Globulin Ratio 0.6 Bedside Lactic Acid Venous 2.53 mmol/L Bedside Hemoglobin 11.6 g/dl Bedside Hematocrit 34 % Bedside Sodium 135 mEq/L Bedside Potassium 4.3 mEq/L Bedside Chloride 97 mEq/L Bedside Total CO2 32 mEq/l Bedside Blood Urea Nitrogen 19 mg/dl Bedside Creatinine 2.2 mg/dl Bedside Glucose (other) 151 mg/dl Bedside Ionized Calcium (Briseyda) 1.17 mmol/l Urine Color DK YELLOW Urine Appearance CLOUDY Urine pH 5.0 Urine Specific [place] 1.030 Urine Protein 1+ Urine Glucose (UA) NEG Urine Ketones TRACE Urine Occult Blood 2+ Urine Nitrite NEG Urine Bilirubin NEG Urine Urobilinogen NEG Urine Leukocyte Esterase LARGE Urine WBC (Auto) >30 /hpf Urine RBC (Auto) 0-4 /hpf Urine Hyaline Casts (Auto) 1-5 /lpf Urine Epithelial Cells (Auto) >30 /lpf Urine Bacteria (Auto) NEG Urine Renal Epithelial Cells 0-5 /lpf Urine Pathogenic Casts /lpf Urine Yeast (Auto) PRESENT Test 05/26/17 23:04 05/27/17 05:12 05/27/17 06:28 Arterial Blood pH 7.42 Arterial Blood Partial Pressure CO2 42 mmHg Arterial Blood Partial Pressure O2 82 mm/Hg Arterial Blood HCO3 27 mmol/L Arterial Blood Oxygen Saturation 93.7 % Arterial Blood Base Excess 1.7 mEq/L Arterial Blood Gas Delivery 40% BIPAP [place] Test POS White Blood Count 19.29 K/uL Red Blood Count 3.48 M/uL Hemoglobin 8.6 g/dL Hematocrit 29.7 % Mean Corpuscular Volume 85.3 fL Mean Corpuscular Hemoglobin 24.7 pg Mean Corpuscular Hemoglobin Concent 29.0 g/dl Platelet Count 304 K/uL Mean Platelet Volume 8.6 fL Neutrophils (%) (Auto) 89.6 % Lymphocytes (%) (Auto) 3.8 % Monocytes (%) (Auto) 5.7 % Eosinophils (%) (Auto) 0.0 % Basophils (%) (Auto) 0.2 % Neutrophils # (Auto) 17.29 K/uL Lymphocytes # (Auto) 0.73 K/uL Monocytes # (Auto) 1.10 K/uL Eosinophils # (Auto) 0.00 K/uL Basophils # (Auto) 0.03 K/uL RDW Standard Deviation 62.1 fL RDW Coefficient of Variation 19.9 % Immature Granulocyte % (Auto) 0.7 % Immature Granulocyte # (Auto) 0.14 K/uL Hypochromasia PRESENT Basophilic Stippling 1+ Prothrombin Time 17.5 SECONDS Prothromb Time International Ratio 1.6 Sodium Level 134 mmol/L Potassium Level 4.5 mmol/L Chloride Level 102 mmol/L Carbon Dioxide Level 26 mmol/L Anion Gap 6.0 mmol/L Blood Urea Nitrogen 25 mg/dl Creatinine 2.40 mg/dl Est Creatinine Clear Calc Drug Dose 27.9 ml/min Estimated GFR () 24.1 Estimated GFR (Non- 20.8 BUN/Creatinine Ratio 10.5 Random Glucose 204 mg/dl Calcium Level 8.3 mg/dl Bedside Glucose 158 mg/dl Diagnostic Radiology: cxr> resolving R base pna; no congestive failure dopplers > no DVT either LE Chest CT> parenchymal R basilar infiltrate w/ small effusion; small nodule EKG: ECG w/ RAD and NSR Assessment & Plan 62 y/o F w/ ESRD on MWF HD, a fib, chronic pannus wound needing wound vacs/assisted abtx, R HF, COPD, morbid obesity admitted for acute on chronic respiratory failure and possible health care associated pna after presenting with chills and dyspnea. ESRD -no urgent HD indicated>pt not volume overloaded, her respiratory problems have improved/stabilized, chemistries acceptable -next tx in am per routine -f/u pending blood cxs Anemia of chronic disease -give epo per routine w/ HD; no pRBC indicated currently Acute on chronic respiratory failure with presumed health care associated PNA, leukocytosis, chills/malaise, elevated lactate -f/u pending cxs >> admission urine specimen contaminated; f/u blood cxs to eval for bacteremia whether from dialysis access versus chronic wounds Appreciate consult; will follow with you.
--- NOTE | 2017-05-27 13:25 | Pharmacy Progress Note ---
Pharmacy Abx Initial Consult Date of Service May 27, 2017. Pharmacy Dosing Scope Date of Consult: 05/27/17 Consultation requested by: Dr. Chaudhary Pharmacy is consulted to initiate Vancomycin/Zosyn/Levaquin IV dosing therapy, order appropriate labs and adjust drug dose/frequency. Subjective The patient is a 62 year old female admitted on May 26, 2017 at 22:33 with SOB. Objective Height (Feet): 5 Height (Inches): 4.00 Weight (Kilograms): 101.800 Vital Signs (Past 12Hrs) Vital Signs Past 12 Hours Date Time Temp Pulse Resp B/P (MAP) Pulse Ox O2 Delivery O2 Flow Rate FiO2 05/27/17 10:40 36.6 71 20 96/59 (71) 92 Nasal Cannula 2.0 05/27/17 10:00 36.6 76 15 96 4.0 05/27/17 08:32 76 15 96 Nasal Cannula 2.5 05/27/17 08:05 36.6 75 24 118/65 (82) 99 Humidified Oxygen Mask 05/27/17 08:00 Nasal Cannula 3.0 05/27/17 04:00 93 Nasal Cannula 4.0 05/27/17 04:00 37.6 84 22 111/47 (68) 93 Nasal Cannula 4.0 05/27/17 01:34 87 21 93 Nasal Cannula 4.0 Lab Results (24Hrs) Laboratory Tests (24 Hours) Test 05/26/17 20:20 05/27/17 05:12 Total Creatine Kinase 17 U/L (26-192) L White Blood Count 19.29 K/uL (4.8-10.8) H Red Blood Count 3.48 M/uL (4.2-5.4) L Hemoglobin 8.6 g/dL (12.0-16.0) L Hematocrit 29.7 % (37-47) L Mean Corpuscular Volume 85.3 fL (80-100) Mean Corpuscular Hemoglobin 24.7 pg (25-34) L Mean Corpuscular Hemoglobin Concent 29.0 g/dl (32-36) L Platelet Count 304 K/uL (130-400) Mean Platelet Volume 8.6 fL (7.4-10.4) Neutrophils (%) (Auto) 89.6 % Lymphocytes (%) (Auto) 3.8 % Monocytes (%) (Auto) 5.7 % Eosinophils (%) (Auto) 0.0 % Basophils (%) (Auto) 0.2 % Neutrophils # (Auto) 17.29 K/uL (1.4-6.5) H Lymphocytes # (Auto) 0.73 K/uL (1.2-3.4) L Monocytes # (Auto) 1.10 K/uL (0.11-0.59) H Eosinophils # (Auto) 0.00 K/uL (0-0.5) Basophils # (Auto) 0.03 K/uL (0-0.2) Micro Results Date/Time Source Procedure Growth Status 05/26/17 20:45 Blood Blood Culture Pending Received 05/26/17 20:20 Blood Blood Culture Pending Received 05/26/17 23:34 Nasal MRSA DNA Surveillance Screen - Final Specimen Negative for MRSA by DNA Probe Complete 05/26/17 21:15 Urine,Catheterized Urine Culture - Preliminary NO GROWTH - LESS THAN 1,000 COLONIES/... Resulted Risk Factors for Resistance * Hospitalization for 48 hours or more within the past 90 days * Chronic dialysis within the past 30 days * Immunocompromised (chronic steroid therapy) * Antimicrobial use within the last 90 days Assessment & Plan Assessment 62 year old female admitted with SOB, initiate on broad spectrum antibiotics for healthcare associated pneumonia. Blood cultures, urine culture, Nasal swab pending. Plan Vancomycin IV * Loading dose: 1000 mg (10 mg/kg) given in the ED, followed by an additional 1000 mg IV X 1 when admitted to the floor to complete a 20 mg/kg load * Maintenance dose: Will be determined based on Random drug levels prior to HD * Goal Random level for pneumonia: 15 to 20 mcg/mL * Random level ordered for 05/28/17 with AM labs prior to HD session Piperacillin/tazobactam * 4.5 g bolus administered over 30 minutes, then 4.5 g IV extended infusion every 12 hours for CrCl 20 mL/min or less and dialysis. * Aggressive dosing selected due to critically ill status/BMI 35 or more/ history of cystic fibrosis. Levaquin * 750 mg IV X given in ED * Continue 500 mg IV every 48 hours Pharmacy will continue to follow and will adjust dose/frequency as necessary. Thank you.
--- NOTE | 2017-05-27 13:46 | Pharmacy Progress Note ---
Glycemic Control Intl Consult Date of Service May 27, 2017. Scope Glycemic Pharmacist consulted by Dr Dias on 05/27/17 for glycemic control and to write orders per [facility] inpatient glycemic control protocol Objective Weight (Kilograms): 101.800 Accuchecks BSG (last 24hrs): Test 05/26/17 20:20 05/27/17 05:12 05/27/17 06:28 05/27/17 12:20 Random Glucose 150 mg/dl (70-99) 204 mg/dl (70-99) Bedside Glucose 158 mg/dl (70-90) 141 mg/dl (70-90) Laboratory Data (last 24hrs) Test 05/26/17 20:20 05/26/17 20:28 05/27/17 05:12 Anion Gap 7.0 mmol/L 11.0 mmol/L 6.0 mmol/L BUN/Creatinine Ratio 9.1 10.5 Blood Urea Nitrogen 20 mg/dl 25 mg/dl Creatinine 2.20 mg/dl 2.40 mg/dl Potassium Level 4.2 mmol/L 4.5 mmol/L Sodium Level 135 mmol/L 134 mmol/L White Blood Count 25.42 K/uL 19.29 K/uL Red Blood Count 4.00 M/uL 3.48 M/uL Hemoglobin 9.9 g/dL 8.6 g/dL Hematocrit 34.5 % 29.7 % Mean Corpuscular Volume 86.3 fL 85.3 fL Mean Corpuscular Hemoglobin 24.8 pg 24.7 pg Mean Corpuscular Hemoglobin Concent 28.7 g/dl 29.0 g/dl Platelet Count 402 K/uL 304 K/uL Mean Platelet Volume 8.5 fL 8.6 fL Neutrophils (%) (Auto) 82.6 % 89.6 % Lymphocytes (%) (Auto) 5.9 % 3.8 % Monocytes (%) (Auto) 9.4 % 5.7 % Eosinophils (%) (Auto) 1.2 % 0.0 % Basophils (%) (Auto) 0.2 % 0.2 % Neutrophils # (Auto) 20.97 K/uL 17.29 K/uL Lymphocytes # (Auto) 1.51 K/uL 0.73 K/uL Monocytes # (Auto) 2.38 K/uL 1.10 K/uL Eosinophils # (Auto) 0.31 K/uL 0.00 K/uL Basophils # (Auto) 0.06 K/uL 0.03 K/uL Recent Pertinent Medications Outpatient Anti-diabetic Regimen: * Lantus 30 units HS * Novolog ACHS * A1c = 6.6 % 03/2017 Risk Factors for Insulin Resistance: * Steroids: Prednisone 5 mg PO daily (home dose) * Infection: Vancomycin/Zosyn/Levaquin IV * Diet: diabetic diet Assessment & Plan ASSESSMENT: * 62 yo F well known to glycemic service from prior admissions, admitted today with SOB and likely pneumonia * Plan will be to initiate the same regimen as March 2017 admission and see how her BSGs react this time * She usually requires ~20-30 units of insulin per day * did hold Lantus last night which could cause BSGs to rise but so far today her BSGs are trending within goal * Give Lantus dose with dinner to make up for missed dose overnight PLAN FOR INPATIENT GLYCEMIC CONTROL: * Basal insulin with LANTUS 15 units SQ QPM * Correctional Insulin with NOVOLOG per scale ACHS * Goal Range: Low 110 mg/dL - High 140 mg/dL * Correction Factor: 20 mg/dL/unit * Nutritional / Prandial insulin per carb ratio of 1 unit per 7 grams CHO consumed * Please note that the plan above was derived based on current level of insulin resistance and hospital stress. These recommendations are appropriate for inpatient admission only. Plan of care upon discharge will need to be reassessed to avoid potential outpatient hypo/hyperglycemia. Thank you.
[2017-05-27] MEDS: WARFARIN SOD 5 MG TAB PO SCH (16:32)
[2017-05-27] MEDS ORDERED: INSULIN GLARGINE SOLOSTAR 100 UNITS/ML 3 ML PEN SC SCH ×3 (17:00→21:00)
--- NOTE | 2017-05-27 18:24 | Progress Note ---
Internal Med Progress Note Date of Service: May 27, 2017. Provider Documentation: SUBJECTIVE: The patient was sen and examined Feels a lot better OBJECTIVE: Vital Signs-as noted below Exam: General-NO distress at rest Eyes-Normal ENT-normal Neck-supple Lungs-Minimal crackles bilateral bases Heart-Regular,no murmur Abdomen-Benign,no masses,bowel sound present Extremities-NO edema Neuro-AAOx3 Lab data as noted below. ASSESSMENT & PLAN: 62 year old female with history of COPD on chronic 2 liters via nasal cannula, ESRD, DM 2, Chronic A fib on Coumadin, CHF Right sided, Chronic wounds, presenting with shortness of breath x 1 day. 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 - has history of MRSA, check nasal MRSA -doubt any Pul Embolism given INR value - CT chest without contrast to further characterize right sided infiltrates on CXR -Started on empiric Vanc, Zosyn, Levaquin -required BIPAP initially -continue Nebs and her usual dose of Prednisone -Appreciate Speech Therapy evaluation -MRSA screen negative -d/c Vancomycin -Clinically better and WCC is improving ESRD - euvolemic - HD On MWF - consult Nephro DM 2 - did not eat today - BSG 150s - hold Lantus 30 units in HS tonight, resume accordingly -ISS for now CHRONIC ATRIAL FIBRILLATION ON COUMADIN - INR 1.8 -Coumadin 7.5 mg po one tonight - monitor INR -resume usual Coumadin 5mg po daily - continue Metoprolol CHF RIGHT SIDED - on HD HYPOTHYROIDISM - continue usual Levothyroxine CHRONIC ANEMIA - appears stable CHRONIC ABDOMINAL WOUND - on Wound Vac - Augmentin and Cipro listed on med rec, not on [facility] records- - Wound care consult DVT PROPH INR 1.8 on Coumadin Full code per patient Disposition ff up with Dr. Gonzalez for PCP ff up with Dr. Houston for Nephro Vital Signs: Date Time Temp Pulse Resp B/P (MAP) Pulse Ox O2 Delivery O2 Flow Rate FiO2 05/27/17 15:24 36.5 69 16 97/65 (76) 91 05/27/17 13:47 70 16 93 Nasal Cannula 2.0 05/27/17 10:40 36.6 71 20 96/59 (71) 92 Nasal Cannula 2.0 05/27/17 10:00 36.6 76 15 96 4.0 05/27/17 08:32 76 15 96 Nasal Cannula 2.5 05/27/17 08:05 36.6 75 24 118/65 (82) 99 Humidified Oxygen Mask 05/27/17 08:00 Nasal Cannula 3.0 05/27/17 04:00 93 Nasal Cannula 4.0 05/27/17 04:00 37.6 84 22 111/47 (68) 93 Nasal Cannula 4.0 05/27/17 01:34 87 21 93 Nasal Cannula 4.0 05/26/17 23:30 85 98 40 05/26/17 23:20 37.7 89 26 99/51 92 Room Air 4.0 05/26/17 22:04 92 20 91/42 94 BiPAP 40 05/26/17 21:34 93 22 86/49 99 Room Air 8.0 40 05/26/17 20:51 94 BiPAP 8.0 40 05/26/17 20:38 96 05/26/17 20:35 99 94 40 05/26/17 20:30 99 24 90 Nasal Cannula 6.0 05/26/17 19:58 37.4 102 18 98/62 82 Nasal Cannula 4.0 Lab Results: Results Past 24 Hours Test 05/26/17 20:20 05/26/17 20:24 05/26/17 20:28 05/26/17 21:15 Range/Units White Blood Count 25.42 4.8-10.8 K/uL Red Blood Count 4.00 4.2-5.4 M/uL Hemoglobin 9.9 12.0-16.0 g/dL Hematocrit 34.5 37-47 % Mean Corpuscular Volume 86.3 80-100 fL Mean Corpuscular Hemoglobin 24.8 25-34 pg Mean Corpuscular Hemoglobin Concent 28.7 32-36 g/dl Platelet Count 402 130-400 K/uL Mean Platelet Volume 8.5 7.4-10.4 fL Neutrophils (%) (Auto) 82.6 % Lymphocytes (%) (Auto) 5.9 % Monocytes (%) (Auto) 9.4 % Eosinophils (%) (Auto) 1.2 % Basophils (%) (Auto) 0.2 % Neutrophils # (Auto) 20.97 1.4-6.5 K/uL Lymphocytes # (Auto) 1.51 1.2-3.4 K/uL Monocytes # (Auto) 2.38 0.11-0.59 K/uL Eosinophils # (Auto) 0.31 0-0.5 K/uL Basophils # (Auto) 0.06 0-0.2 K/uL RDW Standard Deviation 64.1 36.4-46.3 fL RDW Coefficient of Variation 20.2 11.5-14.5 % Immature Granulocyte % (Auto) 0.7 % Immature Granulocyte # (Auto) 0.19 0.00-0.02 K/uL Hypochromasia PRESENT Basophilic Stippling OCCASIONAL Anisocytosis PRESENT Prothrombin Time 19.2 9.0-12.0 SECONDS Prothromb Time International Ratio 1.8 0.9-1.1 Activated Partial Thromboplast Time 36.6 21.0-31.0 SECONDS Partial Thromboplastin Ratio 1.4 Sodium Level 135 136-145 mmol/L Potassium Level 4.2 3.5-5.1 mmol/L Chloride Level 99 98-107 mmol/L Carbon Dioxide Level 29 21-32 mmol/L Anion Gap 7.0 11.0 16-25 mmol/L Blood Urea Nitrogen 20 7-18 mg/dl Creatinine 2.20 0.60-1.20 mg/dl Estimated GFR () 26.8 Estimated GFR (Non- 23.1 BUN/Creatinine Ratio 9.1 10-20 Random Glucose 150 70-99 mg/dl Calcium Level 9.1 8.5-10.1 mg/dl Total Bilirubin 0.3 0.2-1 mg/dl Aspartate Amino Transf (AST/SGOT) 43 15-37 U/L Alanine Aminotransferase (ALT/SGPT) 32 12-78 U/L Alkaline Phosphatase 202 45-117 U/L Total Creatine Kinase 17 26-192 U/L Creatine Kinase MB 0.6 0.5-3.6 ng/ml Creatine Kinase MB Ratio 3.5 0-3.0 Troponin I 0.017 0-0.045 ng/ml Total Protein 6.8 6.4-8.2 gm/dl Albumin 2.4 3.4-5.0 gm/dl Globulin 4.4 2.5-4.0 gm/dl Albumin/Globulin Ratio 0.6 0.9-2 Bedside Lactic Acid Venous 2.53 0.90-1.70 mmol/L Bedside Hemoglobin 11.6 12.0-16.0 g/dl Bedside Hematocrit 34 37-47 % Bedside Sodium 135 135-144 mEq/L Bedside Potassium 4.3 3.3-5.0 mEq/L Bedside Chloride 97 101-112 mEq/L Bedside Total CO2 32 24-31 mEq/l Bedside Blood Urea Nitrogen 19 7-18 mg/dl Bedside Creatinine 2.2 0.6-1.3 mg/dl Bedside Glucose (other) 151 70-99 mg/dl Bedside Ionized Calcium (Briseyda) 1.17 1.12-1.32 mmol/l Urine Color DK YELLOW Urine Appearance CLOUDY CLEAR Urine pH 5.0 4.5-7.5 Urine Specific [place] 1.030 1.000-1.030 Urine Protein 1+ NEG Urine Glucose (UA) NEG NEG Urine Ketones TRACE NEG Urine Occult Blood 2+ NEG Urine Nitrite NEG NEG Urine Bilirubin NEG NEG Urine Urobilinogen NEG NEG Urine Leukocyte Esterase LARGE NEG Urine WBC (Auto) >30 0-5 /hpf Urine RBC (Auto) 0-4 0-4 /hpf Urine Hyaline Casts (Auto) 1-5 0-5 /lpf Urine Epithelial Cells (Auto) >30 0-5 /lpf Urine Bacteria (Auto) NEG NEG Urine Renal Epithelial Cells 0-5 0-5 /lpf Urine Pathogenic Casts 0 /lpf Urine Yeast (Auto) PRESENT NONE PRSENT Test 05/26/17 23:04 05/27/17 05:12 05/27/17 06:28 05/27/17 12:20 Range/Units Arterial Blood pH 7.42 7.35-7.45 Arterial Blood Partial Pressure CO2 42 35-46 mmHg Arterial Blood Partial Pressure O2 82 80-95 mm/Hg Arterial Blood HCO3 27 19-24 mmol/L Arterial Blood Oxygen Saturation 93.7 90-95 % Arterial Blood Base Excess 1.7 -9-1.8 mEq/L Arterial Blood Gas Delivery 40% BIPAP Thiago Test POS POS White Blood Count 19.29 4.8-10.8 K/uL Red Blood Count 3.48 4.2-5.4 M/uL Hemoglobin 8.6 12.0-16.0 g/dL Hematocrit 29.7 37-47 % Mean Corpuscular Volume 85.3 80-100 fL Mean Corpuscular Hemoglobin 24.7 25-34 pg Mean Corpuscular Hemoglobin Concent 29.0 32-36 g/dl Platelet Count 304 130-400 K/uL Mean Platelet Volume 8.6 7.4-10.4 fL Neutrophils (%) (Auto) 89.6 % Lymphocytes (%) (Auto) 3.8 % Monocytes (%) (Auto) 5.7 % Eosinophils (%) (Auto) 0.0 % Basophils (%) (Auto) 0.2 % Neutrophils # (Auto) 17.29 1.4-6.5 K/uL Lymphocytes # (Auto) 0.73 1.2-3.4 K/uL Monocytes # (Auto) 1.10 0.11-0.59 K/uL Eosinophils # (Auto) 0.00 0-0.5 K/uL Basophils # (Auto) 0.03 0-0.2 K/uL RDW Standard Deviation 62.1 36.4-46.3 fL RDW Coefficient of Variation 19.9 11.5-14.5 % Immature Granulocyte % (Auto) 0.7 % Immature Granulocyte # (Auto) 0.14 0.00-0.02 K/uL Hypochromasia PRESENT Basophilic Stippling 1+ Prothrombin Time 17.5 9.0-12.0 SECONDS Prothromb Time International Ratio 1.6 0.9-1.1 Sodium Level 134 136-145 mmol/L Potassium Level 4.5 3.5-5.1 mmol/L Chloride Level 102 98-107 mmol/L Carbon Dioxide Level 26 21-32 mmol/L Anion Gap 6.0 3-11 mmol/L Blood Urea Nitrogen 25 7-18 mg/dl Creatinine 2.40 0.60-1.20 mg/dl Est Creatinine Clear Calc Drug Dose 27.9 ml/min Estimated GFR () 24.1 Estimated GFR (Non- 20.8 BUN/Creatinine Ratio 10.5 10-20 Random Glucose 204 70-99 mg/dl Calcium Level 8.3 8.5-10.1 mg/dl Bedside Glucose 158 141 70-90 mg/dl Test 05/27/17 16:29 Range/Units Bedside Glucose 140 70-90 mg/dl Microbiology Results 05/26/17 Blood Culture, Received Pending 05/26/17 Blood Culture, Received Pending 05/26/17 MRSA DNA Surveillance Screen - Final, Complete Specimen Negative for MRSA by DNA Probe 05/26/17 Urine Culture - Preliminary, Resulted NO GROWTH - LESS THAN 1,000 COLONIES/...
[2017-05-28] VITALS (26 sets, daily range): BP systolic 86–110; BP diastolic 30–67; PULSE 78–91; TEMP 36.4–37.1; O2SAT 91–97
[2017-05-28] MEDS: HYDROCODONE/ACETAMOPHEN 5/325MG TAB PO PRN ×2 (02:06→14:12)
[2017-05-28] MEDS: LEVALBUTEROL 1.25MG/0.5ML NEB INH SCH ×4 (02:21→19:27)
[2017-05-28] MEDS: IPRATROPIUM BROMIDE NEB SOLN 0.02% 2.5 ML VIAL INH SCH ×4 (02:21→19:27)
[2017-05-28] MEDS: PIPERACILL/TAZOBAC IV 4.5 GM in DEXTROSE 5% 100ML IV SCH ×2 (05:26→15:23)
[2017-05-28] MEDS: LEVOTHYROXINE 125 MCG TAB PO SCH (05:26)
[2017-05-28 06:28] LABS: BASO % 0.3 %; BASO ABS # 0.07 K/uL (0-0.2); COMPLETE YES; EOS % 4.8 %; HEMATOCRIT 32.7 % (37-47); IG% 0.4 %; LYMPH % 5.3 %; LYMPH ABS # 1.07 K/uL (1.2-3.4); MEAN CELL VOLUME 84.3 fL (80-100); MEAN CORPUSCULAR HEMOGLOBIN 24.5 pg (25-34); MEAN CORPUSCULAR HGB CONC 29.1 g/dl (32-36); MEAN PLATELET VOLUME 8.6 fL (7.4-10.4); MONO % 8.5 %; NEUT % 80.7 %; PLATELET COUNT 335 K/uL (130-400); RED BLOOD COUNT 3.88 M/uL (4.2-5.4); WHITE BLOOD COUNT 20.06 K/uL (4.8-10.8)
[2017-05-28 06:40] LABS: PROTHROMBIN TIME (PATIENT) 21.6 SECONDS (9.0-12.0)
[2017-05-28 07:05] LABS: BUN/CREATININE RATIO 12.3 (10-20); CREATININE 3.2 mg/dl (0.60-1.20); POTASSIUM 4.1 mmol/L (3.5-5.1)
[2017-05-28] MEDS ORDERED: HEPARIN SOD (PORCINE) 1000 UNIT/ML 10 ML VIAL IV SCH (08:00)
[2017-05-28] MEDS: COLLAGENASE OINT 30 GM TUBE EXT SCH (08:00)
[2017-05-28] MEDS ORDERED: EPOETIN ALFA 4000 UNITS/ML VIAL IV. SCH (08:00)
[2017-05-28] MEDS: TIOTROPIUM BROMIDE 5 PUFF/90 MCG INH INH SCH (08:30)
[2017-05-28] MEDS: INSULIN ASPART 100 UNITS/ML 3 ML PEN SC SCH ×4 (09:00→21:25)
--- NOTE | 2017-05-28 09:38 | Nephrology Progress Note ---
Nephrology Progress Note Date of Service: May 28, 2017. Subjective 62 y/o F w/ ESRD on MWF HD, a fib, chronic pannus wound needing wound vacs/care home abtx, R HF, COPD, morbid obesity admitted for acute on chronic respiratory failure and possible health care associated pna after presenting with chills and dyspnea. Today she states that she is doing much better. denies any chills and states that energy is improved. Continues to have SOB but is chronic for patient. blood cultures still pending but no growth to date. Denies any new issues with dialysis. no chest pain recently. no nausea, vomiting. with good appetite. Objective Date Time Temp Pulse Resp B/P (MAP) Pulse Ox O2 Delivery O2 Flow Rate FiO2 05/28/17 08:09 Nasal Cannula 2.0 05/28/17 07:36 87 16 91 Nasal Cannula 4.0 05/28/17 07:26 36.4 18 110/67 (81) 91 Nasal Cannula 2.0 05/28/17 02:22 88 16 91 Nasal Cannula 4.0 05/28/17 00:10 BiPAP 2.0 05/27/17 23:38 36.3 71 18 109/72 (84) 95 BiPAP 05/27/17 23:32 60 98 40 05/27/17 19:06 90 16 86 Nasal Cannula 2.0 05/27/17 16:00 Nasal Cannula 2.0 05/27/17 15:24 36.5 69 16 97/65 (76) 91 05/27/17 13:47 70 16 93 Nasal Cannula 2.0 05/27/17 10:40 36.6 71 20 96/59 (71) 92 Nasal Cannula 2.0 05/27/17 10:00 36.6 76 15 96 4.0 Physical Exam: General Appearance: WD/WN, no apparent distress, + obese, +on 02NC 2-3 L Eyes: EOMI ENT: hearing grossly normal Neck: supple Respiratory/Chest: no respiratory distress, + decreased breath sounds at baseline but clear apically Cardiovascular: regular rate, rhythm, Abdomen: normal bowel sounds, non tender, soft, + wound vac L lateral abdomen, small R hip dressings Extremities: non-tender, + indurated bilateral le and pedal edema Neurologic/Psych: alert, normal mood/affect, oriented x 3 Skin: no jaundice, warm/dry, no rash Current Inpatient Medications Medications (Trade) Dose Ordered Sig/Tyrone Route Start Time Stop Time Status Last Admin Dose Admin Levofloxacin (Consult) 1 ea UD PRN N/A 05/26/17 23:00 06/25/17 22:59 Insulin Aspart (novoLOG ASPART) SLIDING SCALE If C... ACHS SC 05/27/17 06:45 06/26/17 06:59 05/28/17 09:00 2 UNITS Glucose (Glucose 40% Gel) 15-30 GRAMS 15 GRAMS... UD PRN PO 05/26/17 22:45 06/25/17 22:44 Glucose (Glucose Chew Tab) 4-8 Tablets 4 Tabl... UD PRN PO 05/26/17 22:45 06/25/17 22:44 Dextrose (Dextrose 50% 50ML Syringe) 25-50ML OF 50% DW IV FOR... UD PRN IV 05/26/17 22:45 06/25/17 22:44 Glucagon (Glucagon Inj) 1 mg UD PRN SQ 05/26/17 22:45 06/25/17 22:44 Acetaminophen (Tylenol Tab) 650 mg Q4H PRN PO 05/26/17 22:45 06/25/17 22:44 Ipratropium [place] (Atrovent 0.02% 0.5MG/2.5ML Neb) 0.5 mg Q6R INH 05/27/17 03:00 06/26/17 02:59 05/28/17 07:35 0.5 MG Levalbuterol (Xopenex 1.25MG/ 0.5ML Neb) 1.25 mg Q6R INH 05/27/17 03:00 06/26/17 02:59 05/28/17 07:35 1.25 MG Piperacillin Sod/ Tazobactam Sod (Consult) 1 ea UD PRN N/A 05/26/17 23:00 06/25/17 22:59 Aspirin (Ecotrin Tab) 81 mg DAILY PO 05/27/17 09:00 06/26/17 08:59 05/27/17 07:52 81 MG Atorvastatin Calcium (Lipitor Tab) 40 mg DAILY PO 05/27/17 09:00 06/26/17 08:59 05/27/17 07:51 40 MG Calcitriol (Rocaltrol Cap) 0.25 mcg MoWeFr@0900 PO 05/28/17 09:00 06/27/17 08:59 Collagenase (Santyl Oint) 1 appln DAILY EXT 05/27/17 09:00 06/26/17 08:59 Docusate Sodium (coLACE CAP) 100 mg BID PO 05/27/17 09:00 06/26/17 08:59 05/27/17 20:35 100 MG Gabapentin (Neurontin Cap) 400 mg BID PO 05/27/17 09:00 06/26/17 08:59 05/27/17 20:35 400 MG Acetaminophen/ Hydrocodone Bitart ([place] 5/325 Tab) 1 tab Q6H PRN PO 05/26/17 23:00 06/09/17 22:59 05/28/17 02:06 1 TAB Levothyroxine Sodium (Synthroid Tab) 125 mcg DAILYBB PO 05/27/17 06:00 06/26/17 05:59 05/28/17 05:26 125 MCG Magnesium Oxide (Mag-Ox Tab) 400 mg BID PO 05/27/17 09:00 06/26/17 08:59 05/27/17 20:35 400 MG Metoprolol Succinate (Toprol Xl Tab) 25 mg DAILY PO 05/27/17 09:00 06/26/17 08:59 05/27/17 07:52 25 MG Prednisone (PredniSONE TAB) 5 mg DAILY PO 05/27/17 09:00 06/26/17 08:59 05/27/17 07:51 5 MG Sertraline HCl (Zoloft Tab) 100 mg DAILY PO 05/27/17 09:00 06/26/17 08:59 05/27/17 07:51 100 MG Tiotropium [place] (Spiriva Handihaler Inhaler) 1 puff DAILY INH 05/27/17 09:00 06/26/17 08:59 05/27/17 07:53 1 PUFF Warfarin Sodium (Coumadin Tab) 5 mg DAILY@1600 PO 05/27/17 16:00 06/26/17 15:59 05/27/17 16:32 5 MG Vitamin B Complex/ Vit C/Folic Acid (Nephrocaps) 1 cap DAILY PO 05/27/17 09:00 06/26/17 08:59 05/27/17 07:50 1 CAP Cholecalciferol (Vitamin D Tab) 2,000 inter.unit DAILY PO 05/27/17 09:00 06/26/17 08:59 05/27/17 07:53 2,000 INTER.UNIT Pantoprazole Sodium (Protonix Tab) 40 mg DAILY PO 05/27/17 09:00 06/26/17 08:59 05/27/17 07:53 40 MG Piperacillin Sod/ Tazobactam Sod 4.5 gm/Dextrose 120 ml @ 30 mls/hr Q12H IV 05/27/17 04:00 06/03/17 03:59 05/28/17 05:26 30 MLS/HR Levofloxacin 500 mg/Prmx 100 ml @ 100 mls/hr Q48H IV 05/28/17 22:00 06/02/17 21:59 Miscellaneous Information (Consult Glycemic Management Pharmacy) 1 ea UD PRN N/A 05/27/17 08:30 06/26/17 08:29 Heparin Sodium (Porcine) (Heparin Iv Bolus) 1,000 unit TODAY@0800 IV 05/28/17 08:00 05/28/17 18:00 Heparin Sodium (Porcine) (Heparin Iv Bolus) 400 unit Q1H IV 05/28/17 08:00 05/28/17 10:01 Epoetin Faisal (Procrit Inj) 8,000 units TODAY@0800 IV. 05/28/17 08:00 05/28/17 18:00 Insulin Glargine (Lantus Solostar Pen) 12 units HS SC 05/28/17 21:00 06/27/17 20:59 Last 24 Hours Test 05/27/17 12:20 05/27/17 16:29 05/27/17 20:38 05/28/17 05:50 Bedside Glucose 141 mg/dl 140 mg/dl 132 mg/dl White Blood Count 20.06 K/uL Red Blood Count 3.88 M/uL Hemoglobin 9.5 g/dL Hematocrit 32.7 % Mean Corpuscular Volume 84.3 fL Mean Corpuscular Hemoglobin 24.5 pg Mean Corpuscular Hemoglobin Concent 29.1 g/dl Platelet Count 335 K/uL Mean Platelet Volume 8.6 fL Neutrophils (%) (Auto) 80.7 % Lymphocytes (%) (Auto) 5.3 % Monocytes (%) (Auto) 8.5 % Eosinophils (%) (Auto) 4.8 % Basophils (%) (Auto) 0.3 % Neutrophils # (Auto) 16.16 K/uL Lymphocytes # (Auto) 1.07 K/uL Monocytes # (Auto) 1.70 K/uL Eosinophils # (Auto) 0.97 K/uL Basophils # (Auto) 0.07 K/uL RDW Standard Deviation 61.8 fL RDW Coefficient of Variation 19.9 % Immature Granulocyte % (Auto) 0.4 % Immature Granulocyte # (Auto) 0.09 K/uL Prothrombin Time 21.6 SECONDS Prothromb Time International Ratio 2.0 Sodium Level 133 mmol/L Potassium Level 4.1 mmol/L Chloride Level 99 mmol/L Carbon Dioxide Level 26 mmol/L Anion Gap 8.0 mmol/L Blood Urea Nitrogen 40 mg/dl Creatinine 3.20 mg/dl Est Creatinine Clear Calc Drug Dose 21.2 ml/min Estimated GFR () 17.0 Estimated GFR (Non- 14.7 BUN/Creatinine Ratio 12.3 Random Glucose 87 mg/dl Calcium Level 9.0 mg/dl Random Vancomycin Level 18.1 mcg/ml Test 05/28/17 07:52 Bedside Glucose 94 mg/dl Assessment & Plan ESRD-plan for dialysis today and continue on // schedule or as clinical condition dictates. volume status improved and breathing better per patient. potassium was 4.1. cultures still pending but no growth to date. Anemia of chronic disease: to continue Epo with dialysis and monitor cbc regularly. last hgb 9.5 and no indication for blood transfusion at this time. This patient was seen and examined in direct collaboration with Dr. Ya. Thank you for the opportunity to participate in this patient's care. Appreciate the Consult. 62 y/o F w/ chronic wounds, chronic respiratory failure, ESRD a/w acute on chronic respiratory failure and leukocytosis w/o evidence of volume overload. denies further pleuritic pain today. 02 requirements better than baseline; unchanged edema. VS acceptable. for routine HD today w/ anemia mgt as above. further details per PA note w/ which I agree. S Felton PRATHER PhD
--- NOTE | 2017-05-28 09:43 | Pharmacy Progress Note ---
Glycemic Control Progress Note Date of Service May 28, 2017. Scope Glycemic Pharmacist consulted for glycemic control to write orders per [facility] inpatient glycemic control protocol. Objective Accuchecks BSG (last 24hrs): Test 05/27/17 12:20 05/27/17 16:29 05/27/17 20:38 05/28/17 05:50 Bedside Glucose 141 mg/dl (70-90) 140 mg/dl (70-90) 132 mg/dl (70-90) Random Glucose 87 mg/dl (70-99) Test 05/28/17 07:52 Bedside Glucose 94 mg/dl (70-90) Recent Pertinent Medications The patient is currently receiving: * Basal insulin: Lantus 15 units every 24 hours in the evening * Correctional Insulin: Novolog Correction per scale ACHS Goal Range: Low 110 mg/dL - High 140 mg/dL Correction Factor: 20 mg/dL/unit * Prandial insulin: Per carb ratio of 1 unit per 7 grams CHO consumed Outpatient Anti-Diabetic Meds Lantus 30 units qHS + Novolog ACHS Assessment & Plan ASSESSMENT: * See progress note from 05/27/17 for more background info, in short: * Pt receiving SQ basal bolus insulin regimen for hyperglycemia secondary to baseline DM (outpatient regimen on hold), HAP currently on Zosyn and Levaquin IV , and home dose of prednisone 5 mg PO daily. * Patient is currently receiving an average of 29 units of insulin per day * 15 units of basal insulin * 14 units of prandial/correctional insulin * BSGs ranging 132 - 204 mg/dl over the past 24hrs * Changes needed to insulin regimen: * AM Fasting BSG = 94 mg/dl. This is in slightly below goal range for patient based on inpatient targets and co-morbidities. Therefore Basal insulin will be decreased slightly from 15 units to 12 units. * Post-prandial BSGs are trending downwards throughout the day (insulin stacking) therefore need to loosen CF/CR. Loosened significantly this morning, but this may be too loose; will evaluate lunch blood sugar. * Total daily dose = 29 units. This dosing is yielding adequate glycemic control- will monitor. PLAN FOR INPATIENT GLYCEMIC CONTROL: * Decreasing Lantus to 12 units SQ daily in evening * LOOSENING correction factor to 30 mg/dl/unit * LOOSENING carb ratio to 1 unit per 10 grams CHO consumed * Continuing goal range to Low 110 mg/dL - High 140 mg/dL RECOMMENDATIONS FOR DISCHARGE: * Patient's HbA1C from March is very-well controlled. Continue current home regimen as long as patient does not have hypoglycemia. * Please note that the plan above was derived based on current level of insulin resistance and hospital stress. These recommendations are appropriate for inpatient admission only. Plan of care upon discharge will need to be reassessed to avoid potential outpatient hypo/hyperglycemia. Thank you.
[2017-05-28] MEDS: HEPARIN SOD (PORCINE) 1000 UNIT/ML 10 ML VIAL IV SCH ×3 (10:00→11:15)
[2017-05-28] MEDS: METOPROLOL SUCC 25MG EXT REL TAB PO SCH (12:49)
[2017-05-28] MEDS: ASPIRIN 81 MG ECTAB PO SCH (12:49)
[2017-05-28] MEDS: NEPHROCAPS PO SCH (12:49)
[2017-05-28] MEDS: SERTRALINE HCL 100 MG TAB PO SCH (12:50)
[2017-05-28] MEDS: DOCUSATE SODIUM 100 MG CAP PO SCH ×2 (12:50→20:07)
[2017-05-28] MEDS: GABAPENTIN 400 MG CAP PO SCH ×2 (12:50→20:07)
[2017-05-28] MEDS: PANTOprazole SOD 40 MG TAB PO SCH (12:51)
[2017-05-28] MEDS: CALCITRIOL 0.25 MCG CAP PO SCH (12:51)
[2017-05-28] MEDS: MAGNESIUM OXIDE 400 MG TAB PO SCH ×2 (12:51→20:08)
[2017-05-28] MEDS: CHOLECALCIFEROL 1000 INTER.UNIT TAB PO SCH (12:51)
[2017-05-28] MEDS: ATORVASTATIN 40 MG TAB PO SCH (12:52)
--- NOTE | 2017-05-28 16:23 | Progress Note ---
Internal Med Progress Note Date of Service: May 28, 2017. Provider Documentation: SUBJECTIVE: The patient was sen and examined Feels a lot better Not yet ready to be discharged OBJECTIVE: Vital Signs-as noted below Exam: General-NO distress at rest Eyes-Normal ENT-normal Neck-supple Lungs-Minimal crackles bilateral bases Heart-Regular,no murmur Abdomen-Benign,no masses,bowel sound present Extremities-NO edema Neuro-AAOx3 Lab data as noted below. ASSESSMENT & PLAN: 62 year old female with history of COPD on chronic 2 liters via nasal cannula, ESRD, DM 2, Chronic A fib on Coumadin, CHF Right sided, Chronic wounds, presenting with shortness of breath x 1 day. 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 - has history of MRSA, check nasal MRSA -doubt any Pul Embolism given INR value - CT chest without contrast to further characterize right sided infiltrates on CXR -Started on empiric Vanc, Zosyn, Levaquin -required BIPAP initially -continue Nebs and her usual dose of Prednisone -Appreciate Speech Therapy evaluation -MRSA screen negative -d/c Vancomycin -Clinically better and WCC is improving -better today but not yet ready to be discharged ESRD - euvolemic - HD On MWF - consult Nephro,appreciate input DM 2 - BSG 150s - hold Lantus 30 units in HS tonight, resume accordingly -ISS for now -will restart usual Lantus CHRONIC ATRIAL FIBRILLATION ON COUMADIN - INR 1.8 -Coumadin 7.5 mg po one tonight - monitor INR -therapeutic at 2.0 on 05/28/17 -resume usual Coumadin 5mg po daily - continue Metoprolol CHF RIGHT SIDED - on HD HYPOTHYROIDISM - continue usual Levothyroxine CHRONIC ANEMIA - appears stable CHRONIC ABDOMINAL WOUND - on Wound Vac - Augmentin and Cipro listed on med rec, not on [facility] records- - Wound care consult DVT PROPH INR 1.8 on Coumadin Now 2.0 05/28/17 Full code per patient Disposition ff up with Dr. Gonzalez for PCP ff up with Dr. Houston for Nephro Vital Signs: Date Time Temp Pulse Resp B/P (MAP) Pulse Ox O2 Delivery O2 Flow Rate FiO2 05/28/17 15:47 80 16 94 Nasal Cannula 4.0 05/28/17 15:30 Nasal Cannula 4.0 05/28/17 15:07 37.1 88 16 95/60 (72) 92 4.0 88 05/28/17 12:50 36.6 85 101/55 (70) 05/28/17 12:30 85 106/54 05/28/17 12:15 82 86/62 05/28/17 12:00 85 98/50 05/28/17 11:45 84 102/52 05/28/17 11:30 81 92/51 05/28/17 11:15 85 92/49 05/28/17 11:00 85 97/62 05/28/17 10:45 87 97/51 05/28/17 10:30 86 90/51 05/28/17 10:15 91 99/55 05/28/17 10:00 86 103/53 05/28/17 09:45 87 95/52 05/28/17 09:30 91 94/43 05/28/17 09:15 84 90/45 05/28/17 09:12 84 96/30 05/28/17 09:09 36.4 84 88/47 (61) 05/28/17 08:30 91 Nasal Cannula 2.0 05/28/17 08:09 Nasal Cannula 2.0 05/28/17 07:36 87 16 91 Nasal Cannula 4.0 05/28/17 07:26 36.4 18 110/67 (81) 91 Nasal Cannula 2.0 05/28/17 02:22 88 16 91 Nasal Cannula 4.0 05/28/17 00:10 BiPAP 2.0 05/27/17 23:38 36.3 71 18 109/72 (84) 95 BiPAP 05/27/17 23:32 60 98 40 05/27/17 19:06 90 16 86 Nasal Cannula 2.0 Lab Results: Results Past 24 Hours Test 05/27/17 16:29 05/27/17 20:38 05/28/17 05:50 05/28/17 07:52 Range/Units Bedside Glucose 140 132 94 70-90 mg/dl White Blood Count 20.06 4.8-10.8 K/uL Red Blood Count 3.88 4.2-5.4 M/uL Hemoglobin 9.5 12.0-16.0 g/dL Hematocrit 32.7 37-47 % Mean Corpuscular Volume 84.3 80-100 fL Mean Corpuscular Hemoglobin 24.5 25-34 pg Mean Corpuscular Hemoglobin Concent 29.1 32-36 g/dl Platelet Count 335 130-400 K/uL Mean Platelet Volume 8.6 7.4-10.4 fL Neutrophils (%) (Auto) 80.7 % Lymphocytes (%) (Auto) 5.3 % Monocytes (%) (Auto) 8.5 % Eosinophils (%) (Auto) 4.8 % Basophils (%) (Auto) 0.3 % Neutrophils # (Auto) 16.16 1.4-6.5 K/uL Lymphocytes # (Auto) 1.07 1.2-3.4 K/uL Monocytes # (Auto) 1.70 0.11-0.59 K/uL Eosinophils # (Auto) 0.97 0-0.5 K/uL Basophils # (Auto) 0.07 0-0.2 K/uL RDW Standard Deviation 61.8 36.4-46.3 fL RDW Coefficient of Variation 19.9 11.5-14.5 % Immature Granulocyte % (Auto) 0.4 % Immature Granulocyte # (Auto) 0.09 0.00-0.02 K/uL Prothrombin Time 21.6 9.0-12.0 SECONDS Prothromb Time International Ratio 2.0 0.9-1.1 Sodium Level 133 136-145 mmol/L Potassium Level 4.1 3.5-5.1 mmol/L Chloride Level 99 98-107 mmol/L Carbon Dioxide Level 26 21-32 mmol/L Anion Gap 8.0 3-11 mmol/L Blood Urea Nitrogen 40 7-18 mg/dl Creatinine 3.20 0.60-1.20 mg/dl Est Creatinine Clear Calc Drug Dose 21.2 ml/min Estimated GFR () 17.0 Estimated GFR (Non- 14.7 BUN/Creatinine Ratio 12.3 10-20 Random Glucose 87 70-99 mg/dl Calcium Level 9.0 8.5-10.1 mg/dl Random Vancomycin Level 18.1 mcg/ml Test 05/28/17 11:55 Range/Units Bedside Glucose 107 70-90 mg/dl
[2017-05-28] MEDS: WARFARIN SOD 5 MG TAB PO SCH (16:45)
[2017-05-28] MEDS: INSULIN GLARGINE SOLOSTAR 100 UNITS/ML 3 ML PEN SC SCH (21:25)
[2017-05-28] MEDS ORDERED: LEVOFLOXACIN 500MG / D5W IV SCH (22:00)
[2017-05-29] VITALS (10 sets, daily range): BP systolic 106–121; BP diastolic 65–74; PULSE 80–87; TEMP 36.6–36.9; O2SAT 92–96
[2017-05-29] MEDS: HYDROCODONE/ACETAMOPHEN 5/325MG TAB PO PRN ×3 (00:30→18:40)
[2017-05-29] MEDS: IPRATROPIUM BROMIDE NEB SOLN 0.02% 2.5 ML VIAL INH SCH ×4 (01:25→19:47)
[2017-05-29] MEDS: LEVALBUTEROL 1.25MG/0.5ML NEB INH SCH ×4 (01:25→19:47)
[2017-05-29] MEDS: PIPERACILL/TAZOBAC IV 4.5 GM in DEXTROSE 5% 100ML IV SCH ×2 (04:40→16:15)
[2017-05-29] MEDS: LEVOTHYROXINE 125 MCG TAB PO SCH (06:13)
[2017-05-29 07:13] LABS: HEMATOCRIT 30.4 % (37-47); MEAN CELL VOLUME 85.9 fL (80-100); MEAN PLATELET VOLUME 8.5 fL (7.4-10.4); PLATELET COUNT 293 K/uL (130-400); RED BLOOD COUNT 3.54 M/uL (4.2-5.4); WHITE BLOOD COUNT 13.97 K/uL (4.8-10.8)
[2017-05-29 07:21] LABS: ANISOCYTOSIS PRESENT; BASO % 0.5 %; BASO ABS # 0.07 K/uL (0-0.2); COMPLETE YES; EOS % 5.5 %; HYPOCHROMIA PRESENT; IG% 0.5 %; LYMPH % 7.4 %; LYMPH ABS # 1.04 K/uL (1.2-3.4); MONO % 11.9 %; NEUT % 74.2 %; OVALOCYTES 1+; POIKILOCYTOSIS PRESENT
[2017-05-29 07:24] LABS: INR 2.3 (0.9-1.1); PROTHROMBIN TIME (PATIENT) 25.4 SECONDS (9.0-12.0)
[2017-05-29 07:25] LABS: BUN/CREATININE RATIO 10.8 (10-20); CALCIUM 8.4 mg/dl (8.5-10.1); CREATININE 2.5 mg/dl (0.60-1.20); POTASSIUM 3.7 mmol/L (3.5-5.1)
[2017-05-29] MEDS: NEPHROCAPS PO SCH (07:45)
[2017-05-29] MEDS: CHOLECALCIFEROL 1000 INTER.UNIT TAB PO SCH (07:45)
[2017-05-29] MEDS: DOCUSATE SODIUM 100 MG CAP PO SCH ×2 (07:45→20:11)
[2017-05-29] MEDS: METOPROLOL SUCC 25MG EXT REL TAB PO SCH (07:46)
[2017-05-29] MEDS: MAGNESIUM OXIDE 400 MG TAB PO SCH ×2 (07:46→20:11)
[2017-05-29] MEDS: SERTRALINE HCL 100 MG TAB PO SCH (07:46)
[2017-05-29] MEDS: PANTOprazole SOD 40 MG TAB PO SCH (07:46)
[2017-05-29] MEDS: ATORVASTATIN 40 MG TAB PO SCH (07:46)
[2017-05-29] MEDS: ASPIRIN 81 MG ECTAB PO SCH (07:46)
[2017-05-29] MEDS: TIOTROPIUM BROMIDE 5 PUFF/90 MCG INH INH SCH (07:47)
[2017-05-29] MEDS: COLLAGENASE OINT 30 GM TUBE EXT SCH (07:48)
[2017-05-29] MEDS: GABAPENTIN 400 MG CAP PO SCH ×2 (07:48→20:11)
[2017-05-29] MEDS: INSULIN ASPART 100 UNITS/ML 3 ML PEN SC SCH ×4 (09:21→20:14)
--- NOTE | 2017-05-29 15:23 | Nephrology Progress Note ---
Nephrology Progress Note Date of Service: May 29, 2017. Subjective 62 y/o F w/ ESRD on MWF HD, a fib, chronic pannus wound needing wound vacs/intermediate abtx, R HF, COPD, morbid obesity admitted for acute on chronic respiratory failure and possible health care associated pna after presenting with chills and dyspnea. Today patient is seated comfortably and states that she feels well. was hoping to go home today but plan is for tomorrow after HD. tolerated dialysis well yesterday. SOB has improved per patient. slightly less than baseline. BC negative. Denies any new issues with dialysis. no chest pain recently. no nausea, vomiting. with good appetite. Objective Date Time Temp Pulse Resp B/P (MAP) Pulse Ox O2 Delivery O2 Flow Rate FiO2 05/29/17 14:46 36.6 81 18 107/65 (79) 92 Nasal Cannula 2.0 05/29/17 14:04 80 16 96 Nasal Cannula 4.0 05/29/17 08:30 95 Nasal Cannula 2.0 05/29/17 07:53 16 05/29/17 07:32 36.9 82 106/69 (81) 95 05/29/17 07:17 83 16 92 Nasal Cannula 4.0 05/29/17 04:00 93 Nasal Cannula 4.0 05/29/17 01:25 87 16 93 Nasal Cannula 4.0 05/29/17 00:32 114/74 (87) 05/28/17 23:37 37.1 87 20 95/39 (57) 97 Nasal Cannula 4.0 05/28/17 19:27 78 18 94 Nasal Cannula 4.0 05/28/17 15:47 80 16 94 Nasal Cannula 4.0 05/28/17 15:30 Nasal Cannula 4.0 Physical Exam: General Appearance: WD/WN, no apparent distress, + obese, +on 02NC 2-3 L Eyes: EOMI ENT: hearing grossly normal Neck: supple Respiratory/Chest: no respiratory distress, + rhonchi throughout (chronic) Cardiovascular: regular rate, rhythm, Abdomen: normal bowel sounds, non tender, soft, + wound vac L lateral abdomen, small R hip dressings Extremities: non-tender, + indurated bilateral le and pedal edema Neurologic/Psych: alert, normal mood/affect, oriented x 3 Skin: no jaundice, warm/dry, no rash Current Inpatient Medications Medications (Trade) Dose Ordered Sig/Tyrone Route Start Time Stop Time Status Last Admin Dose Admin Levofloxacin (Consult) 1 ea UD PRN N/A 05/26/17 23:00 06/25/17 22:59 Insulin Aspart (novoLOG ASPART) SLIDING SCALE If C... ACHS SC 05/27/17 06:45 06/26/17 06:59 05/29/17 12:58 5 UNITS Glucose (Glucose 40% Gel) 15-30 GRAMS 15 GRAMS... UD PRN PO 05/26/17 22:45 06/25/17 22:44 Glucose (Glucose Chew Tab) 4-8 Tablets 4 Tabl... UD PRN PO 05/26/17 22:45 06/25/17 22:44 Dextrose (Dextrose 50% 50ML Syringe) 25-50ML OF 50% DW IV FOR... UD PRN IV 05/26/17 22:45 06/25/17 22:44 Glucagon (Glucagon Inj) 1 mg UD PRN SQ 05/26/17 22:45 06/25/17 22:44 Acetaminophen (Tylenol Tab) 650 mg Q4H PRN PO 05/26/17 22:45 06/25/17 22:44 Ipratropium [place] (Atrovent 0.02% 0.5MG/2.5ML Neb) 0.5 mg Q6R INH 05/27/17 03:00 06/26/17 02:59 05/29/17 14:01 0.5 MG Levalbuterol (Xopenex 1.25MG/ 0.5ML Neb) 1.25 mg Q6R INH 05/27/17 03:00 06/26/17 02:59 05/29/17 14:01 1.25 MG Piperacillin Sod/ Tazobactam Sod (Consult) 1 ea UD PRN N/A 05/26/17 23:00 06/25/17 22:59 Aspirin (Ecotrin Tab) 81 mg DAILY PO 05/27/17 09:00 06/26/17 08:59 05/29/17 07:46 81 MG Atorvastatin Calcium (Lipitor Tab) 40 mg DAILY PO 05/27/17 09:00 06/26/17 08:59 05/29/17 07:46 40 MG Calcitriol (Rocaltrol Cap) 0.25 mcg MoWeFr@0900 PO 05/28/17 09:00 06/27/17 08:59 05/28/17 12:51 0.25 MCG Collagenase (Santyl Oint) 1 appln DAILY EXT 05/27/17 09:00 06/26/17 08:59 Docusate Sodium (coLACE CAP) 100 mg BID PO 05/27/17 09:00 06/26/17 08:59 05/29/17 07:45 100 MG Gabapentin (Neurontin Cap) 400 mg BID PO 05/27/17 09:00 06/26/17 08:59 05/29/17 07:48 400 MG Acetaminophen/ Hydrocodone Bitart ([place] 5/325 Tab) 1 tab Q6H PRN PO 05/26/17 23:00 06/09/17 22:59 05/29/17 11:30 1 TAB Levothyroxine Sodium (Synthroid Tab) 125 mcg DAILYBB PO 05/27/17 06:00 06/26/17 05:59 05/29/17 06:13 125 MCG Magnesium Oxide (Mag-Ox Tab) 400 mg BID PO 05/27/17 09:00 06/26/17 08:59 05/29/17 07:46 400 MG Metoprolol Succinate (Toprol Xl Tab) 25 mg DAILY PO 05/27/17 09:00 06/26/17 08:59 05/29/17 07:46 25 MG Prednisone (PredniSONE TAB) 5 mg DAILY PO 05/27/17 09:00 06/26/17 08:59 05/29/17 07:46 5 MG Sertraline HCl (Zoloft Tab) 100 mg DAILY PO 05/27/17 09:00 06/26/17 08:59 05/29/17 07:46 100 MG Tiotropium [place] (Spiriva Handihaler Inhaler) 1 puff DAILY INH 05/27/17 09:00 06/26/17 08:59 05/29/17 07:47 1 PUFF Warfarin Sodium (Coumadin Tab) 5 mg DAILY@1600 PO 05/27/17 16:00 06/26/17 15:59 05/28/17 16:45 5 MG Vitamin B Complex/ Vit C/Folic Acid (Nephrocaps) 1 cap DAILY PO 05/27/17 09:00 06/26/17 08:59 05/29/17 07:45 1 CAP Cholecalciferol (Vitamin D Tab) 2,000 inter.unit DAILY PO 05/27/17 09:00 06/26/17 08:59 05/29/17 07:45 2,000 INTER.UNIT Pantoprazole Sodium (Protonix Tab) 40 mg DAILY PO 05/27/17 09:00 06/26/17 08:59 05/29/17 07:46 40 MG Piperacillin Sod/ Tazobactam Sod 4.5 gm/Dextrose 120 ml @ 30 mls/hr Q12H IV 05/27/17 04:00 06/03/17 03:59 05/29/17 04:40 30 MLS/HR Miscellaneous Information (Consult Glycemic Management Pharmacy) 1 ea UD PRN N/A 05/27/17 08:30 06/26/17 08:29 Insulin Glargine (Lantus Solostar Pen) 12 units HS SC 05/28/17 21:00 06/27/17 20:59 05/28/17 21:25 12 UNITS Levofloxacin (Levaquin Tab) 500 mg Q2D@2200 PO 05/30/17 22:00 06/02/17 21:59 Last 24 Hours Test 05/28/17 17:00 05/28/17 21:13 05/29/17 06:34 05/29/17 07:28 Bedside Glucose 105 mg/dl 171 mg/dl 122 mg/dl White Blood Count 13.97 K/uL Red Blood Count 3.54 M/uL Hemoglobin 8.5 g/dL Hematocrit 30.4 % Mean Corpuscular Volume 85.9 fL Mean Corpuscular Hemoglobin 24.0 pg Mean Corpuscular Hemoglobin Concent 28.0 g/dl Platelet Count 293 K/uL Mean Platelet Volume 8.5 fL Neutrophils (%) (Auto) 74.2 % Lymphocytes (%) (Auto) 7.4 % Monocytes (%) (Auto) 11.9 % Eosinophils (%) (Auto) 5.5 % Basophils (%) (Auto) 0.5 % Neutrophils # (Auto) 10.36 K/uL Lymphocytes # (Auto) 1.04 K/uL Monocytes # (Auto) 1.66 K/uL Eosinophils # (Auto) 0.77 K/uL Basophils # (Auto) 0.07 K/uL RDW Standard Deviation 62.5 fL RDW Coefficient of Variation 19.8 % Immature Granulocyte % (Auto) 0.5 % Immature Granulocyte # (Auto) 0.07 K/uL Hypochromasia PRESENT Poikilocytosis PRESENT Anisocytosis PRESENT Ovalocytes 1+ Prothrombin Time 25.4 SECONDS Prothromb Time International Ratio 2.3 Sodium Level 137 mmol/L Potassium Level 3.7 mmol/L Chloride Level 102 mmol/L Carbon Dioxide Level 28 mmol/L Anion Gap 7.0 mmol/L Blood Urea Nitrogen 27 mg/dl Creatinine 2.50 mg/dl Est Creatinine Clear Calc Drug Dose 27.1 ml/min Estimated GFR () 22.9 Estimated GFR (Non- 19.8 BUN/Creatinine Ratio 10.8 Random Glucose 90 mg/dl Calcium Level 8.4 mg/dl Test 05/29/17 11:44 Bedside Glucose 112 mg/dl Assessment & Plan ESRD-plan for dialysis tomorrow and continue on M/W/F schedule as outpatient. volume status improved and breathing better per patient. potassium was 3.7. cultures no growth to date. Anemia of chronic disease: to continue Epo with dialysis and monitor cbc regularly. last hgb 8.5 and no indication for blood transfusion at this time. This patient was discussed with Dr. Ya. Thank you for the opportunity to participate in this patient's care. Appreciate the Consult.
[2017-05-29] MEDS: WARFARIN SOD 5 MG TAB PO SCH (16:16)
--- NOTE | 2017-05-29 18:14 | Progress Note ---
Internal Med Progress Note Date of Service: May 29, 2017. Provider Documentation: SUBJECTIVE: The patient was sen and examined Feels a lot better Not yet ready to be discharged Not any better today Getting PT OBJECTIVE: Vital Signs-as noted below Exam: General-NO distress at rest Eyes-Normal ENT-normal Neck-supple Lungs-Minimal crackles bilateral bases Heart-Regular,no murmur Abdomen-Benign,no masses,bowel sound present Extremities-NO edema Neuro-AAOx3 Lab data as noted below. ASSESSMENT & PLAN: 62 year old female with history of COPD on chronic 2 liters via nasal cannula, ESRD, DM 2, Chronic A fib on Coumadin, CHF Right sided, Chronic wounds, presenting with shortness of breath x 1 day. 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 - has history of MRSA, check nasal MRSA -doubt any Pul Embolism given INR value - CT chest without contrast to further characterize right sided infiltrates on CXR -Started on empiric Vanc, Zosyn, Levaquin -required BIPAP initially -continue Nebs and her usual dose of Prednisone -Appreciate Speech Therapy evaluation -MRSA screen negative -d/c Vancomycin -Clinically better and WCC is improving -better today but not yet ready to be discharged -WCC 13 K today ESRD - euvolemic - HD On MWF - consult Nephro,appreciate input -Continue Dialysis DM 2 - BSG 150s - hold Lantus 30 units in HS tonight, resume accordingly -ISS for now -will restart usual Lantus CHRONIC ATRIAL FIBRILLATION ON COUMADIN - INR 1.8 -Coumadin 7.5 mg po one tonight - monitor INR -therapeutic at 2.0 on 05/28/17 -resume usual Coumadin 5mg po daily - continue Metoprolol -INR therapeutic CHF RIGHT SIDED - on HD HYPOTHYROIDISM - continue usual Levothyroxine CHRONIC ANEMIA - appears stable CHRONIC ABDOMINAL WOUND - on Wound Vac - Augmentin and Cipro listed on med rec, not on [facility] records- - Wound care consult-appreciate input DVT PROPH INR 1.8 on Coumadin Now 2.0 05/28/17 Full code per patient Disposition ff up with Dr. Gonzalez for PCP ff up with Dr. Houston for Nephro Likely discharge tomorrow Vital Signs: Date Time Temp Pulse Resp B/P (MAP) Pulse Ox O2 Delivery O2 Flow Rate FiO2 05/29/17 15:55 Nasal Cannula 2.0 05/29/17 14:46 36.6 81 18 107/65 (79) 92 Nasal Cannula 2.0 05/29/17 14:04 80 16 96 Nasal Cannula 4.0 05/29/17 08:30 95 Nasal Cannula 2.0 05/29/17 07:53 16 05/29/17 07:32 36.9 82 106/69 (81) 95 05/29/17 07:17 83 16 92 Nasal Cannula 4.0 05/29/17 04:00 93 Nasal Cannula 4.0 05/29/17 01:25 87 16 93 Nasal Cannula 4.0 05/29/17 00:32 114/74 (87) 05/28/17 23:37 37.1 87 20 95/39 (57) 97 Nasal Cannula 4.0 05/28/17 19:27 78 18 94 Nasal Cannula 4.0 Lab Results: Results Past 24 Hours Test 05/28/17 21:13 05/29/17 06:34 05/29/17 07:28 05/29/17 11:44 Range/Units Bedside Glucose 171 122 112 70-90 mg/dl White Blood Count 13.97 4.8-10.8 K/uL Red Blood Count 3.54 4.2-5.4 M/uL Hemoglobin 8.5 12.0-16.0 g/dL Hematocrit 30.4 37-47 % Mean Corpuscular Volume 85.9 80-100 fL Mean Corpuscular Hemoglobin 24.0 25-34 pg Mean Corpuscular Hemoglobin Concent 28.0 32-36 g/dl Platelet Count 293 130-400 K/uL Mean Platelet Volume 8.5 7.4-10.4 fL Neutrophils (%) (Auto) 74.2 % Lymphocytes (%) (Auto) 7.4 % Monocytes (%) (Auto) 11.9 % Eosinophils (%) (Auto) 5.5 % Basophils (%) (Auto) 0.5 % Neutrophils # (Auto) 10.36 1.4-6.5 K/uL Lymphocytes # (Auto) 1.04 1.2-3.4 K/uL Monocytes # (Auto) 1.66 0.11-0.59 K/uL Eosinophils # (Auto) 0.77 0-0.5 K/uL Basophils # (Auto) 0.07 0-0.2 K/uL RDW Standard Deviation 62.5 36.4-46.3 fL RDW Coefficient of Variation 19.8 11.5-14.5 % Immature Granulocyte % (Auto) 0.5 % Immature Granulocyte # (Auto) 0.07 0.00-0.02 K/uL Hypochromasia PRESENT Poikilocytosis PRESENT Anisocytosis PRESENT Ovalocytes 1+ Prothrombin Time 25.4 9.0-12.0 SECONDS Prothromb Time International Ratio 2.3 0.9-1.1 Sodium Level 137 136-145 mmol/L Potassium Level 3.7 3.5-5.1 mmol/L Chloride Level 102 98-107 mmol/L Carbon Dioxide Level 28 21-32 mmol/L Anion Gap 7.0 3-11 mmol/L Blood Urea Nitrogen 27 7-18 mg/dl Creatinine 2.50 0.60-1.20 mg/dl Est Creatinine Clear Calc Drug Dose 27.1 ml/min Estimated GFR () 22.9 Estimated GFR (Non- 19.8 BUN/Creatinine Ratio 10.8 10-20 Random Glucose 90 70-99 mg/dl Calcium Level 8.4 8.5-10.1 mg/dl Test 05/29/17 16:35 Range/Units Bedside Glucose 150 70-90 mg/dl
[2017-05-29] MEDS: INSULIN GLARGINE SOLOSTAR 100 UNITS/ML 3 ML PEN SC SCH (20:10)
[2017-05-29] MEDS ORDERED: INSULIN GLARGINE SOLOSTAR 100 UNITS/ML 3 ML PEN SC SCH (21:00)
[2017-05-30] VITALS (22 sets, daily range): BP systolic 89–108; BP diastolic 37–65; PULSE 77–85; TEMP 36.6; O2SAT 90–94
[2017-05-30] MEDS: IPRATROPIUM BROMIDE NEB SOLN 0.02% 2.5 ML VIAL INH SCH ×3 (02:14→14:20)
[2017-05-30] MEDS: LEVALBUTEROL 1.25MG/0.5ML NEB INH SCH ×3 (02:14→14:20)
[2017-05-30] MEDS: PIPERACILL/TAZOBAC IV 4.5 GM in DEXTROSE 5% 100ML IV SCH ×2 (04:00→16:16)
[2017-05-30] MEDS: HYDROCODONE/ACETAMOPHEN 5/325MG TAB PO PRN ×2 (05:18→11:15)
[2017-05-30] MEDS: LEVOTHYROXINE 125 MCG TAB PO SCH (05:18)
[2017-05-30 06:51] LABS: BASO % 0.6 %; COMPLETE YES; EOS % 7.5 %; HEMATOCRIT 30.5 % (37-47); IG% 0.5 %; LYMPH % 7.9 %; LYMPH ABS # 1.28 K/uL (1.2-3.4); MEAN CELL VOLUME 84.7 fL (80-100); MEAN CORPUSCULAR HGB CONC 29.5 g/dl (32-36); MEAN PLATELET VOLUME 8.6 fL (7.4-10.4); MONO % 8.2 %; NEUT % 75.3 %; PLATELET COUNT 301 K/uL (130-400); WHITE BLOOD COUNT 16.17 K/uL (4.8-10.8)
[2017-05-30 07:08] LABS: INR 2.5 (0.9-1.1); PROTHROMBIN TIME (PATIENT) 27.4 SECONDS (9.0-12.0)
[2017-05-30 07:26] LABS: CALCIUM 8.8 mg/dl (8.5-10.1); CREATININE 3.4 mg/dl (0.60-1.20); POTASSIUM 3.9 mmol/L (3.5-5.1)
[2017-05-30] MEDS ORDERED: EPOETIN ALFA INJ 8,000 UNITS in SYRINGE 0 ML IV. SCH (08:00)
[2017-05-30] MEDS ORDERED: HEPARIN SOD (PORCINE) 1000 UNIT/ML 10 ML VIAL IV SCH (08:00)
[2017-05-30] MEDS ORDERED: EPOETIN ALFA 10,000 UNITS/ML VIAL IV. ONE (08:00)
[2017-05-30] MEDS: COLLAGENASE OINT 30 GM TUBE EXT SCH (08:30)
--- NOTE | 2017-05-30 08:42 | Nephrology Progress Note ---
Nephrology Progress Note Date of Service: May 30, 2017. Subjective 62 y/o F w/ ESRD on MWF HD, a fib, chronic pannus wound needing wound vacs/alf abtx, R HF, COPD, morbid obesity admitted for acute on chronic respiratory failure and possible health care associated pna after presenting with chills and dyspnea. Patient recently had epistaxis earlier today. on coumadin. states that she is doing well. eager to be discharged today post dialysis. SOB continues to improve and patient states she is at baseline except for when breathing deeply. no chest pain recently. no nausea, vomiting. with good appetite. Objective Date Time Temp Pulse Resp B/P (MAP) Pulse Ox O2 Delivery O2 Flow Rate FiO2 05/30/17 07:20 36.6 81 20 105/65 (78) 91 05/30/17 07:04 80 16 90 Nasal Cannula 4.0 05/30/17 00:10 Nasal Cannula 2.0 05/29/17 23:43 36.8 80 20 121/74 (90) 95 Nasal Cannula 4.0 05/29/17 20:10 Nasal Cannula 2.0 05/29/17 19:48 80 16 95 Nasal Cannula 4.0 05/29/17 15:55 Nasal Cannula 2.0 05/29/17 14:46 36.6 81 18 107/65 (79) 92 Nasal Cannula 2.0 05/29/17 14:04 80 16 96 Nasal Cannula 4.0 Physical Exam: General Appearance: WD/WN, no apparent distress, + obese, +on 02NC 2-3 L Eyes: EOMI ENT: hearing grossly normal, left nare with dried blood Neck: supple Respiratory/Chest: no respiratory distress, + rhonchi throughout (chronic) Cardiovascular: regular rate, rhythm, Abdomen: normal bowel sounds, non tender, soft, + wound vac L lateral abdomen, small R hip dressings Extremities: non-tender, + indurated bilateral le and pedal edema Neurologic/Psych: alert, normal mood/affect, oriented x 3 Skin: no jaundice, warm/dry, no rash Current Inpatient Medications Medications (Trade) Dose Ordered Sig/Tyrone Route Start Time Stop Time Status Last Admin Dose Admin Levofloxacin (Consult) 1 ea UD PRN N/A 05/26/17 23:00 06/25/17 22:59 Insulin Aspart (novoLOG ASPART) SLIDING SCALE If C... ACHS SC 05/27/17 06:45 06/26/17 06:59 05/29/17 20:14 1 UNITS Glucose (Glucose 40% Gel) 15-30 GRAMS 15 GRAMS... UD PRN PO 05/26/17 22:45 06/25/17 22:44 Glucose (Glucose Chew Tab) 4-8 Tablets 4 Tabl... UD PRN PO 05/26/17 22:45 06/25/17 22:44 Dextrose (Dextrose 50% 50ML Syringe) 25-50ML OF 50% DW IV FOR... UD PRN IV 05/26/17 22:45 06/25/17 22:44 Glucagon (Glucagon Inj) 1 mg UD PRN SQ 05/26/17 22:45 06/25/17 22:44 Acetaminophen (Tylenol Tab) 650 mg Q4H PRN PO 05/26/17 22:45 06/25/17 22:44 Ipratropium [place] (Atrovent 0.02% 0.5MG/2.5ML Neb) 0.5 mg Q6R INH 05/27/17 03:00 06/26/17 02:59 05/30/17 07:01 0.5 MG Levalbuterol (Xopenex 1.25MG/ 0.5ML Neb) 1.25 mg Q6R INH 05/27/17 03:00 06/26/17 02:59 05/30/17 07:02 1.25 MG Piperacillin Sod/ Tazobactam Sod (Consult) 1 ea UD PRN N/A 05/26/17 23:00 06/25/17 22:59 Aspirin (Ecotrin Tab) 81 mg DAILY PO 05/27/17 09:00 06/26/17 08:59 05/29/17 07:46 81 MG Atorvastatin Calcium (Lipitor Tab) 40 mg DAILY PO 05/27/17 09:00 06/26/17 08:59 05/29/17 07:46 40 MG Calcitriol (Rocaltrol Cap) 0.25 mcg MoWeFr@0900 PO 05/28/17 09:00 06/27/17 08:59 05/28/17 12:51 0.25 MCG Collagenase (Santyl Oint) 1 appln DAILY EXT 05/27/17 09:00 06/26/17 08:59 Docusate Sodium (coLACE CAP) 100 mg BID PO 05/27/17 09:00 06/26/17 08:59 05/29/17 20:11 100 MG Gabapentin (Neurontin Cap) 400 mg BID PO 05/27/17 09:00 06/26/17 08:59 05/29/17 20:11 400 MG Acetaminophen/ Hydrocodone Bitart ([place] 5/325 Tab) 1 tab Q6H PRN PO 05/26/17 23:00 06/09/17 22:59 05/30/17 05:18 1 TAB Levothyroxine Sodium (Synthroid Tab) 125 mcg DAILYBB PO 05/27/17 06:00 06/26/17 05:59 05/30/17 05:18 125 MCG Magnesium Oxide (Mag-Ox Tab) 400 mg BID PO 05/27/17 09:00 06/26/17 08:59 05/29/17 20:11 400 MG Metoprolol Succinate (Toprol Xl Tab) 25 mg DAILY PO 05/27/17 09:00 06/26/17 08:59 05/29/17 07:46 25 MG Prednisone (PredniSONE TAB) 5 mg DAILY PO 05/27/17 09:00 06/26/17 08:59 05/29/17 07:46 5 MG Sertraline HCl (Zoloft Tab) 100 mg DAILY PO 05/27/17 09:00 06/26/17 08:59 05/29/17 07:46 100 MG Tiotropium [place] (Spiriva Handihaler Inhaler) 1 puff DAILY INH 05/27/17 09:00 06/26/17 08:59 05/29/17 07:47 1 PUFF Warfarin Sodium (Coumadin Tab) 5 mg DAILY@1600 PO 05/27/17 16:00 06/26/17 15:59 05/29/17 16:16 5 MG Vitamin B Complex/ Vit C/Folic Acid (Nephrocaps) 1 cap DAILY PO 05/27/17 09:00 06/26/17 08:59 05/29/17 07:45 1 CAP Cholecalciferol (Vitamin D Tab) 2,000 inter.unit DAILY PO 05/27/17 09:00 06/26/17 08:59 05/29/17 07:45 2,000 INTER.UNIT Pantoprazole Sodium (Protonix Tab) 40 mg DAILY PO 05/27/17 09:00 06/26/17 08:59 05/29/17 07:46 40 MG Piperacillin Sod/ Tazobactam Sod 4.5 gm/Dextrose 120 ml @ 30 mls/hr Q12H IV 05/27/17 04:00 06/03/17 03:59 05/30/17 04:00 30 MLS/HR Miscellaneous Information (Consult Glycemic Management Pharmacy) 1 ea UD PRN N/A 05/27/17 08:30 06/26/17 08:29 Insulin Glargine (Lantus Solostar Pen) 12 units HS SC 05/28/17 21:00 06/27/17 20:59 05/29/17 20:10 12 UNITS Levofloxacin (Levaquin Tab) 500 mg Q2D@2200 PO 05/30/17 22:00 06/02/17 21:59 Heparin Sodium (Porcine) (Heparin Iv Bolus) 1,000 unit TODAY@0800 IV 05/30/17 08:00 05/30/17 16:00 Heparin Sodium (Porcine) (Heparin Iv Bolus) 400 unit Q1H IV 05/30/17 08:00 05/30/17 10:01 Epoetin Fais[place] 8000 units/Syringe 0.4 ml @ 1 mls/min DAILY@0800 IV. 05/30/17 08:00 05/30/17 16:00 Last 24 Hours Test 05/29/17 11:44 05/29/17 16:35 05/29/17 19:50 05/30/17 06:26 Bedside Glucose 112 mg/dl 150 mg/dl 152 mg/dl White Blood Count 16.17 K/uL Red Blood Count 3.60 M/uL Hemoglobin 9.0 g/dL Hematocrit 30.5 % Mean Corpuscular Volume 84.7 fL Mean Corpuscular Hemoglobin 25.0 pg Mean Corpuscular Hemoglobin Concent 29.5 g/dl Platelet Count 301 K/uL Mean Platelet Volume 8.6 fL Neutrophils (%) (Auto) 75.3 % Lymphocytes (%) (Auto) 7.9 % Monocytes (%) (Auto) 8.2 % Eosinophils (%) (Auto) 7.5 % Basophils (%) (Auto) 0.6 % Neutrophils # (Auto) 12.16 K/uL Lymphocytes # (Auto) 1.28 K/uL Monocytes # (Auto) 1.33 K/uL Eosinophils # (Auto) 1.22 K/uL Basophils # (Auto) 0.10 K/uL RDW Standard Deviation 61.0 fL RDW Coefficient of Variation 19.7 % Immature Granulocyte % (Auto) 0.5 % Immature Granulocyte # (Auto) 0.08 K/uL Prothrombin Time 27.4 SECONDS Prothromb Time International Ratio 2.5 Sodium Level 137 mmol/L Potassium Level 3.9 mmol/L Chloride Level 101 mmol/L Carbon Dioxide Level 27 mmol/L Anion Gap 9.0 mmol/L Blood Urea Nitrogen 38 mg/dl Creatinine 3.40 mg/dl Est Creatinine Clear Calc Drug Dose 20.1 ml/min Estimated GFR () 15.8 Estimated GFR (Non- 13.6 BUN/Creatinine Ratio 11.0 Random Glucose 120 mg/dl Calcium Level 8.8 mg/dl Test 05/30/17 07:35 Bedside Glucose 120 mg/dl Assessment & Plan ESRD-Plan is to dialyze today. will continue as m/w/f as outpatient. potassium 3.9. volume status appropriate. will try to remove some fluid to help prevent fluid OL over the weekend. BC's negative. Anemia of chronic disease: hgb stable at 9.0-to continue Epo with dialysis and monitor cbc regularly. Epistaxis-resolved. INR 2.5. defer to primary service This patient was discussed with Dr. Ya. Thank you for the opportunity to participate in this patient's care. Appreciate the Consult. 62 y/o F w/ chronic wounds, esrd a/w acute on chronic resp failure; clinically improving/stable. Further details of care per PA note which I have reviewed and w/ which I agree. S Felton PRATHER PhD
[2017-05-30] MEDS: INSULIN ASPART 100 UNITS/ML 3 ML PEN SC SCH ×2 (08:52→14:24)
[2017-05-30] MEDS: TIOTROPIUM BROMIDE 5 PUFF/90 MCG INH INH SCH (08:53)
[2017-05-30] MEDS: HEPARIN SOD (PORCINE) 1000 UNIT/ML 10 ML VIAL IV SCH ×2 (10:30→11:30)
[2017-05-30] MEDS ORDERED: SODIUM CHLORIDE 0.65% NA SOLN 45 ML (OCEAN) PRN (12:30)
[2017-05-30] MEDS: NEPHROCAPS PO SCH (12:51)
[2017-05-30] MEDS: ATORVASTATIN 40 MG TAB PO SCH (12:51)
[2017-05-30] MEDS: SERTRALINE HCL 100 MG TAB PO SCH (12:51)
[2017-05-30] MEDS: CHOLECALCIFEROL 1000 INTER.UNIT TAB PO SCH (12:51)
[2017-05-30] MEDS: GABAPENTIN 400 MG CAP PO SCH (12:51)
[2017-05-30] MEDS: PANTOprazole SOD 40 MG TAB PO SCH (12:52)
[2017-05-30] MEDS: CALCITRIOL 0.25 MCG CAP PO SCH (12:52)
[2017-05-30] MEDS: DOCUSATE SODIUM 100 MG CAP PO SCH (12:52)
[2017-05-30] MEDS: METOPROLOL SUCC 25MG EXT REL TAB PO SCH ×2 (12:52→12:54)
[2017-05-30] MEDS: ASPIRIN 81 MG ECTAB PO SCH (12:52)
[2017-05-30] MEDS: MAGNESIUM OXIDE 400 MG TAB PO SCH (12:53)
[2017-05-30] MEDS: WARFARIN SOD 5 MG TAB PO SCH (16:16)
--- NOTE | 2017-05-30 16:58 | Progress Note ---
Internal Med Progress Note Date of Service: May 30, 2017. Provider Documentation: SUBJECTIVE: The patient was sen and examined Feels a lot better Smiling and ready to be discharged Denies any symptoms OBJECTIVE: Vital Signs-as noted below Exam: General-NO distress at rest Eyes-Normal ENT-normal Neck-supple Lungs-Minimal crackles bilateral bases Heart-Regular,no murmur Abdomen-Benign,no masses,bowel sound present Extremities-NO edema Neuro-AAOx3 Lab data as noted below. ASSESSMENT & PLAN: 62 year old female with history of COPD on chronic 2 liters via nasal cannula, ESRD, DM 2, Chronic A fib on Coumadin, CHF Right sided, Chronic wounds, presenting with shortness of breath x 1 day. 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 - has history of MRSA, check nasal MRSA -doubt any Pul Embolism given INR value - CT chest without contrast to further characterize right sided infiltrates on CXR -Started on empiric Vanc, Zosyn, Levaquin -required BIPAP initially -continue Nebs and her usual dose of Prednisone -Appreciate Speech Therapy evaluation -MRSA screen negative -d/c Vancomycin -Clinically better and WCC is improving -better today but not yet ready to be discharged -WCC decresed but a little high at 16K today -Clinically much improved -Will discharge home today ESRD - euvolemic - HD On MWF - consult Nephro,appreciate input -Continue Dialysis DM 2 - BSG 150s - hold Lantus 30 units in HS tonight, resume accordingly -ISS for now -will restart usual Lantus -No acute issue CHRONIC ATRIAL FIBRILLATION ON COUMADIN - INR 1.8 -Coumadin 7.5 mg po one tonight - monitor INR -therapeutic at 2.0 on 05/28/17 -resume usual Coumadin 5mg po daily - continue Metoprolol -INR therapeutic-2.5 today CHF RIGHT SIDED - on HD HYPOTHYROIDISM - continue usual Levothyroxine CHRONIC ANEMIA - appears stable CHRONIC ABDOMINAL WOUND - on Wound Vac - Augmentin and Cipro listed on med rec, not on [facility] records- - Wound care consult-appreciate input DVT PROPH INR 1.8 on Coumadin Now 2.0 05/28/17 2.5 today Full code per patient Disposition ff up with Dr. Gonzalez for PCP ff up with Dr. Houston for Nephro Likely discharge tomorrow Vital Signs: Date Time Temp Pulse Resp B/P (MAP) Pulse Ox O2 Delivery O2 Flow Rate FiO2 05/30/17 14:20 77 16 93 Nasal Cannula 4.0 05/30/17 13:15 36.6 84 105/56 (72) 05/30/17 12:45 80 102/55 05/30/17 12:30 84 103/53 05/30/17 12:15 83 92/44 05/30/17 12:00 84 101/48 05/30/17 11:45 85 103/52 05/30/17 11:30 83 101/53 05/30/17 11:15 81 103/47 05/30/17 11:00 81 105/42 05/30/17 10:45 83 108/37 05/30/17 10:30 85 97/49 05/30/17 10:15 85 89/46 05/30/17 10:00 83 99/49 05/30/17 09:45 80 90/49 05/30/17 09:30 80 90/49 05/30/17 09:23 79 93/47 05/30/17 09:15 36.6 81 92/45 (61) 05/30/17 08:30 94 Nasal Cannula 2.0 05/30/17 07:20 36.6 81 20 105/65 (78) 91 05/30/17 07:04 80 16 90 Nasal Cannula 4.0 05/30/17 00:10 Nasal Cannula 2.0 05/29/17 23:43 36.8 80 20 121/74 (90) 95 Nasal Cannula 4.0 05/29/17 20:10 Nasal Cannula 2.0 05/29/17 19:48 80 16 95 Nasal Cannula 4.0 Lab Results: Results Past 24 Hours Test 05/29/17 19:50 05/30/17 06:26 05/30/17 07:35 05/30/17 11:09 Range/Units Bedside Glucose 152 120 92 70-90 mg/dl White Blood Count 16.17 4.8-10.8 K/uL Red Blood Count 3.60 4.2-5.4 M/uL Hemoglobin 9.0 12.0-16.0 g/dL Hematocrit 30.5 37-47 % Mean Corpuscular Volume 84.7 80-100 fL Mean Corpuscular Hemoglobin 25.0 25-34 pg Mean Corpuscular Hemoglobin Concent 29.5 32-36 g/dl Platelet Count 301 130-400 K/uL Mean Platelet Volume 8.6 7.4-10.4 fL Neutrophils (%) (Auto) 75.3 % Lymphocytes (%) (Auto) 7.9 % Monocytes (%) (Auto) 8.2 % Eosinophils (%) (Auto) 7.5 % Basophils (%) (Auto) 0.6 % Neutrophils # (Auto) 12.16 1.4-6.5 K/uL Lymphocytes # (Auto) 1.28 1.2-3.4 K/uL Monocytes # (Auto) 1.33 0.11-0.59 K/uL Eosinophils # (Auto) 1.22 0-0.5 K/uL Basophils # (Auto) 0.10 0-0.2 K/uL RDW Standard Deviation 61.0 36.4-46.3 fL RDW Coefficient of Variation 19.7 11.5-14.5 % Immature Granulocyte % (Auto) 0.5 % Immature Granulocyte # (Auto) 0.08 0.00-0.02 K/uL Prothrombin Time 27.4 9.0-12.0 SECONDS Prothromb Time International Ratio 2.5 0.9-1.1 Sodium Level 137 136-145 mmol/L Potassium Level 3.9 3.5-5.1 mmol/L Chloride Level 101 98-107 mmol/L Carbon Dioxide Level 27 21-32 mmol/L Anion Gap 9.0 3-11 mmol/L Blood Urea Nitrogen 38 7-18 mg/dl Creatinine 3.40 0.60-1.20 mg/dl Est Creatinine Clear Calc Drug Dose 20.1 ml/min Estimated GFR () 15.8 Estimated GFR (Non- 13.6 BUN/Creatinine Ratio 11.0 10-20 Random Glucose 120 70-99 mg/dl Calcium Level 8.8 8.5-10.1 mg/dl Test 05/30/17 16:55 Range/Units Bedside Glucose 188 70-90 mg/dl
[2017-05-30] MEDS ORDERED: LVQ500 PO (17:03)
--- NOTE | 2017-05-30 17:07 | Discharge Instructions ---
Discharge Instructions Date of Service May 30, 2017. Admission Reason for Admission: Shortness Of Breath Discharge Discharge Diagnosis / Problem: Respiratory Failure,RLL pneumonia,ESRD on HD Discharge Goals Goal(s): Prevent Disease Progression Activity Recommendations Activity Limitations: resume your previous activity . Instructions / Follow-Up Instructions / Follow-Up Dr Gonzalez on 06/05/17 10 10:25 AM.Keep appointment for Dialysis,Follow up with Coag clinic Current Hospital Diet Patient's current hospital diet: Diabetes Type 2 Diet, Renal Diet Discharge Diet Recommended Diet: Diabetes Type 2 Diet, Renal Diet Fluid Restriction: 1500 ml (6 cups) Pending Studies Studies pending at discharge: no Laboratory Results Hemoglobin A1c Test 03/27/17 06:13 Range/Units Estimated Average Glucose 143 mg/dl Hemoglobin A1c 6.6 H 4.5-5.6 % Medical Emergencies . Who to Call and When: Medical Emergencies: If at any time you feel your situation is an emergency, please call 911 immediately. . Non-Emergent Contact Non-Emergency issues call your: Primary Care Provider . Past History Medical & Surgical History: (1) Respiratory failure (2) Atrial fibrillation (3) Pulmonary HTN (4) COPD (chronic obstructive pulmonary disease) (5) DM type 2 (diabetes mellitus, type 2) (6) HTN (hypertension) (7) RHF (right heart failure) (8) ESRD (end stage renal disease) on dialysis (9) Hypothyroidism (10) Depression (11) S/P cholecystectomy (12) S/P debridement . "Provider Documentation" section prepared by Deloris Dias. . VTE Core Measure Inpt VTE Proph given/why not?: Warfarin (Coumadin)
[2017-05-30] MEDS ORDERED: LEVOFLOXACIN 500 MG TAB PO SCH (22:00)
--- NOTE | 2017-05-31 10:13 | Discharge Summary ---
Discharge Summary Date of Service May 31, 2017. Discharge Summary Admission Date: May 26, 2017 at 22:33 Discharge Date: May 30, 2017 Discharge Disposition: Home Principal Diagnosis: Respiratory Failure,RLL pneumonia,ESRD on HD Secondary Diagnoses/Problems: Please see H&P and Hospital Progress note Consultations: Nephrology Medication Reconciliation New Medications: Levofloxacin (Levofloxacin) 500 Mg Tab 500 MG PO Q2D@2200 for 6 Days, #3 TAB Continued Medications: Ascorbic Acid (Vitamin C) 500 Mg Tab 500 MG PO BID Aspirin (Aspirin Ec) 81 Mg Tab 81 MG PO DAILY Atorvastatin (Lipitor) 40 Mg Tab 40 MG PO DAILY, TAB B-Complex W/ C & Folic Acid (Renal Vitamin 0.8 mg) 1 Tab Tab 1 TAB PO DAILY Calcitriol (Rocaltrol Cap) 0.25 Mcg Cap 0.25 MCG PO UD, CAP MWF Cholecalciferol (Vitamin D3) 2,000 Unit Cap 1 CAP PO DAILY Collagenase (Santyl) 250 Unit/Gm Oin 1 APPLN EXT DAILY for 30 Days, #1 TUBE 2 Refills Cyanocobalamin (Vitamin B-12) 1,000 Mcg Tab 1000 MCG PO DAILY, TAB Docusate Sodium (Colace) 100 Mg Cap 1 CAP PO BID, CAP Gabapentin (Neurontin) 400 Mg Cap 400 MG PO BID Home O2 Therapy (Oxygen) Gas 4 LITERS NA CONTINOUS, BTL Hydrocodone/Acetaminophen 5MG/325MG ([place] 5MG/325MG) Tab 1 TABLET PO Q6H PRN for Pain, TAB PRN PAIN Insulin Aspart (Novolog) 100 Units/Ml Inj Unknown Dose SC AC SLIDING SCALE Insulin Glargine (Lantus Solostar) 100 Unit/Ml Inj 30 UNITS SC HS, PEN Levothyroxine Sodium (Synthroid) 125 Mcg Tab 125 MCG PO DAILY, TAB Magnesium Oxide (Mag-Ox) 400 Mg Tab 400 MG PO BID, TAB Metoprolol Succ (Toprol Xl) (Toprol-Xl) 25 Mg Tabcr 25 MG PO DAILY, #30 TAB Pantoprazole (Protonix) 20 Mg Tab 20 MG PO DAILY Prednisone (Prednisone) 5 Mg Tab 5 MG PO DAILY, TAB Sertraline (Zoloft) 100 Mg Tab 100 MG PO DAILY, TAB Tiotropium [place] (Spiriva Handihaler) 30 Puff/540 Mcg Aerp 1 CAP INH DAILY, INHALER Warfarin Sodium (Coumadin) 5 Mg Tab 5 MG PO DAILY, TAB Discontinued Medications: Amoxicillin & Pot Clavulanate (Augmentin 875-125 mg) 1 Tab Tab 1 TAB PO DAILY, #14 TAB Ciprofloxacin Tab (Cipro) 250 Mg Tab 750 MG PO HS for 14 Days, #14 TAB Admission Information HPI (per Admitting provider): 62 year old female with history of COPD on chronic 2 liters via nasal cannula, ESRD, DM 2, Chronic A fib on coumadin, CHF Rightsided, Chronic wounds, presenting with shortness of breath x 1 day. Patient was feeling fine since her discharge from [facility] last month until 3 days ago when she started to have chills. Today, patient was having shortness of breath, went to HD with no problems, but upon arriving home became more short of breath, thus brought to the ER. She has occasional dry cough, but otherwise denies headache, nausea, chest pain , abdominal pain, problems urinating or with BMs. Patient was received hypoxic in the low 80s, placed on Bipap with improvement to >90%. CXR showing possible resolving pneumonia on the right base, no pulmonary edema. WBC elevated at 25k. On my exam, patient is wearing the bipap mask, smiling, in good spirits, not in respiratory distress, speaks in sentences with no effort. States her breathing is improved compared to arrival. Denies chest pain, palpitations, dizziness, nausea. No other symptoms Past Medical/Surgical History Medical Problems: (1) Atrial fibrillation Status: Chronic (2) Chronic respiratory failure with hypoxia Status: Chronic (3) chronic wound Status: Chronic (4) COPD (chronic obstructive pulmonary disease) Status: Chronic (5) Depression Status: Chronic (6) DM type 2 (diabetes mellitus, type 2) Status: Chronic (7) ESRD (end stage renal disease) on dialysis Status: Chronic (8) HLD (hyperlipidemia) Status: Chronic (9) HTN (hypertension) Status: Chronic (10) Hypothyroidism Status: Chronic (11) Neuropathy Status: Chronic (12) Pulmonary HTN Status: Chronic (13) RHF (right heart failure) Status: Chronic Surgical Problems: (1) S/P cholecystectomy Status: Chronic (2) S/P debridement Permanent Comment: 08/30/2016- debridement bilateral lower extremity and buttock wounds Status: Chronic Family History Diabetes mellitus MOTHER FH: brain cancer FATHER FH: heart disease MOTHER Social History Smoking Status: Former Smoker Smokeless Tobacco Use: No Alcohol Use: none Drug Use: none Marital Status: Housing status: lives with family Occupational Status: disabled Immunizations History of Influenza Vaccine: Yes Influenza Vaccine Date: Jun 19, 2016 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 Allergies Coded Allergies: Bacitracin (Verified Allergy, Intermediate, RASH,ITCH, 05/26/17) Celecoxib (Verified Allergy, Intermediate, RASH TO SULFA DRUGS, 05/26/17) Neomycin (Verified Allergy, Intermediate, RASH,ITCH, 05/26/17) Polymyxin B (Verified Allergy, Intermediate, RASH,ITCH, 05/26/17) Sulfa Antibiotics (Verified Allergy, Intermediate, RASH,HAS TAKEN GLIPIZIDE W/O REACTION, 05/26/17) Tigecycline (Verified Adverse Reaction, Severe, MILD PANCREATITIS, 05/26/17 ) 61 yo F placed on IV tigecycline for wound infection, after 5-6 days developed decreased appetite, had nonspecific abdominal pain from admission and was refusing to lie back for daily abd assessments because of pain in other areas of abdomen. Decreased appetite persisted, also in context of worsening depression and stated apathy, WBC continued to increase, CT chest revealed n/s changes possibly consistent with mild pancreatitis, lipase drawn and elevated, other causes ruled out, clinical pancreatitis on exam. Diruretics/albumin stopped to avoid further rehydration, tigecycline discontinued, continuing supportive care. Codeine (Verified Adverse Reaction, Intermediate, GI UPSET, 05/26/17) Home Medications Scheduled Amoxicillin & Pot Clavulanate (Augmentin 875-125 mg), 1 TAB PO DAILY Ascorbic Acid (Vitamin C), 500 MG PO BID Aspirin (Aspirin Ec), 81 MG PO DAILY Atorvastatin (Lipitor), 40 MG PO DAILY B-Complex W/ C & Folic Acid (Renal Vitamin 0.8 mg), 1 TAB PO DAILY Calcitriol (Rocaltrol Cap), 0.25 MCG PO UD Cholecalciferol (Vitamin D3), 1 CAP PO DAILY Ciprofloxacin Tab (Cipro), 750 MG PO HS Collagenase (Santyl), 1 APPLN EXT DAILY Cyanocobalamin (Vitamin B-12), 1,000 MCG PO DAILY Docusate Sodium (Colace), 1 CAP PO BID Gabapentin (Neurontin), 400 MG PO BID Home O2 Therapy (Oxygen), 4 LITERS NA CONTINOUS Insulin Aspart (Novolog), Unknown Dose SC AC Insulin Glargine (Lantus Solostar), 30 UNITS SC HS Levothyroxine Sodium (Synthroid), 125 MCG PO DAILY Magnesium Oxide (Mag-Ox), 400 MG PO BID Metoprolol Succ (Toprol Xl) (Toprol-Xl), 25 MG PO DAILY Pantoprazole (Protonix), 20 MG PO DAILY Prednisone (Prednisone), 5 MG PO DAILY Sertraline (Zoloft), 100 MG PO DAILY Tiotropium [place] (Spiriva Handihaler), 1 CAP INH DAILY Warfarin Sodium (Coumadin), 5 MG PO DAILY Scheduled PRN Hydrocodone/Acetaminophen 5MG/325MG ([place] 5MG/325MG), 1 TABLET PO Q6H PRN for Pain Review of Systems Constitutional- (+) chills; no weight loss Eyes- no acute visual changes ENT- no sinus drainage; no pharyngitis Pulmonary- (+) as noted above Cardiac- no chest pain, no palpitations, no orthopnea, no dependent edema GI- no nausea, no vomiting, no diarrhea, no melena, no hematochezia - no dysuria, no hematuria Musculoskeletal- no arthralgias, no myalgias Derm- no rashes, no new skin lesions, no changing skin lesions Hematologic- no unusual bruising, no unusual bleeding Lymphatics- no adenopathy Endocrine- no polyuria or polydipsia; no heat or cold intolerance Neuro- no headaches, no focal neurologic symptoms Psych- no anxiety, no depression Physical Ex - H&P Physical Exam Vital Signs Date Time Temp Pulse Resp B/P (MAP) Pulse Ox O2 Delivery O2 Flow Rate FiO2 05/26/17 22:04 92 20 91/42 94 BiPAP 40 05/26/17 21:34 93 22 86/49 99 Room Air 8.0 40 05/26/17 20:51 94 BiPAP 8.0 40 05/26/17 20:38 96 05/26/17 20:35 99 94 40 05/26/17 20:30 99 24 90 Nasal Cannula 6.0 05/26/17 19:58 37.4 102 18 98/62 82 Nasal Cannula 4.0 General- oriented x 3, not in distress, speaks in sentences with no effort on Bipap mask Head- atraumatic Eyes- PERRL, EOMI, anicteric ENT- oropharynx clear Neck- supple, no JVD, no adenopathy, no thyromegaly; carotids +2/2, no bruits appreciated Lungs- mild rales at the right base, otherwise, no wheezing, rhonchi, good air entry bilaterally Heart- regular rhythm; no murmur, normal rate Abdomen- normal bowel sounds, soft, nontender, (+) pannus, (+) wound vac in place LLQ, (+) 2 small wounds right hip region with dressing in place, no signs of infection Extremities- (+) bilateral lower leg edema grade 2, no calf tenderness; peripheral pulses intact Neuro- alert, oriented x 3; PERRL, EOMI; no gross focal deficits Skin- warm & dry Diagnostics - H&P Diagnostics Laboratory Results Results Past 24 Hours Test 05/26/17 20:20 05/26/17 20:24 05/26/17 20:28 05/26/17 21:14 Range/Units White Blood Count 25.42 4.8-10.8 K/uL Red Blood Count 4.00 4.2-5.4 M/uL Hemoglobin 9.9 12.0-16.0 g/dL Hematocrit 34.5 37-47 % Mean Corpuscular Volume 86.3 80-100 fL Mean Corpuscular Hemoglobin 24.8 25-34 pg Mean Corpuscular Hemoglobin Concent 28.7 32-36 g/dl Platelet Count 402 130-400 K/uL Mean Platelet Volume 8.5 7.4-10.4 fL Neutrophils (%) (Auto) 82.6 % Lymphocytes (%) (Auto) 5.9 % Monocytes (%) (Auto) 9.4 % Eosinophils (%) (Auto) 1.2 % Basophils (%) (Auto) 0.2 % Neutrophils # (Auto) 20.97 1.4-6.5 K/uL Lymphocytes # (Auto) 1.51 1.2-3.4 K/uL Monocytes # (Auto) 2.38 0.11-0.59 K/uL Eosinophils # (Auto) 0.31 0-0.5 K/uL Basophils # (Auto) 0.06 0-0.2 K/uL RDW Standard Deviation 64.1 36.4-46.3 fL RDW Coefficient of Variation 20.2 11.5-14.5 % Immature Granulocyte % (Auto) 0.7 % Immature Granulocyte # (Auto) 0.19 0.00-0.02 K/uL Hypochromasia PRESENT Basophilic Stippling OCCASIONAL Anisocytosis PRESENT Prothrombin Time 19.2 9.0-12.0 SECONDS Prothromb Time International Ratio 1.8 0.9-1.1 Activated Partial Thromboplast Time 36.6 21.0-31.0 SECONDS Partial Thromboplastin Ratio 1.4 Sodium Level 135 136-145 mmol/L Potassium Level 4.2 3.5-5.1 mmol/L Chloride Level 99 98-107 mmol/L Carbon Dioxide Level 29 21-32 mmol/L Anion Gap 7.0 11.0 16-25 mmol/L Blood Urea Nitrogen 20 7-18 mg/dl Creatinine 2.20 0.60-1.20 mg/dl Estimated GFR () 26.8 Estimated GFR (Non- 23.1 BUN/Creatinine Ratio 9.1 10-20 Random Glucose 150 70-99 mg/dl Calcium Level 9.1 8.5-10.1 mg/dl Total Bilirubin 0.3 0.2-1 mg/dl Aspartate Amino Transf (AST/SGOT) 43 15-37 U/L Alanine Aminotransferase (ALT/SGPT) 32 12-78 U/L Alkaline Phosphatase 202 45-117 U/L Total Creatine Kinase 17 26-192 U/L Creatine Kinase MB 0.6 0.5-3.6 ng/ml Creatine Kinase MB Ratio 3.5 0-3.0 Troponin I 0.017 0-0.045 ng/ml Total Protein 6.8 6.4-8.2 gm/dl Albumin 2.4 3.4-5.0 gm/dl Globulin 4.4 2.5-4.0 gm/dl Albumin/Globulin Ratio 0.6 0.9-2 Bedside Lactic Acid Venous 2.53 0.90-1.70 mmol/L Bedside Hemoglobin 11.6 12.0-16.0 g/dl Bedside Hematocrit 34 37-47 % Bedside Sodium 135 135-144 mEq/L Bedside Potassium 4.3 3.3-5.0 mEq/L Bedside Chloride 97 101-112 mEq/L Bedside Total CO2 32 24-31 mEq/l Bedside Blood Urea Nitrogen 19 7-18 mg/dl Bedside Creatinine 2.2 0.6-1.3 mg/dl Bedside Glucose (other) 151 70-99 mg/dl Bedside Ionized Calcium (Briseyda) 1.17 1.12-1.32 mmol/l Test 05/26/17 21:15 Range/Units Urine Color DK YELLOW Urine Appearance CLOUDY CLEAR Urine pH 5.0 4.5-7.5 Urine Specific [place] 1.030 1.000-1.030 Urine Protein 1+ NEG Urine Glucose (UA) NEG NEG Urine Ketones TRACE NEG Urine Occult Blood 2+ NEG Urine Nitrite NEG NEG Urine Bilirubin NEG NEG Urine Urobilinogen NEG NEG Urine Leukocyte Esterase LARGE NEG Urine WBC (Auto) >30 0-5 /hpf Urine RBC (Auto) 0-4 0-4 /hpf Urine Hyaline Casts (Auto) 1-5 0-5 /lpf Urine Epithelial Cells (Auto) >30 0-5 /lpf Urine Bacteria (Auto) NEG NEG Urine Renal Epithelial Cells 0-5 0-5 /lpf Urine Pathogenic Casts 0 /lpf Urine Yeast (Auto) PRESENT NONE PRSENT Microbiology Results 05/26/17 Blood Culture, Received Pending 05/26/17 Blood Culture, Received Pending 05/26/17 Urine Culture, Received Pending Diagnostic Radiology CHEST ONE VIEW PORTABLE HISTORY: Sepsis COMPARISON: Chest 03/26/2017. FINDINGS: The heart remains enlarged. Right basilar linear densities which have improved. The left lung is clear. No pleural effusions. No pneumothorax. Right jugular dual-lumen catheter terminates in the SVC. No evidence for pulmonary edema. IMPRESSION: 1. Improved aeration within the base of the right lower lobe which favors resolving atelectasis or resolving pneumonia. 2. Stable cardiomegaly. No evidence for pulmonary edema. EKG HR 96, normal sinus rhythm, no signs of acute ischemia or infarct Impression - H&P Impression Assessment and Plan 62 year old female with history of COPD on chronic 2 liters via nasal cannula, ESRD, DM 2, Chronic A fib on coumadin, CHF Rightsided, Chronic wounds, presenting with shortness of breath x 1 day. 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 - ff up cultures - has history of MRSA, check nasal MRSA - CT chest without contrast to further characterize right sided infiltrates on cxr - empiric Vanc, Zosyn, Levaquin - wean off Bipap to usual 2 liters NC Nebs no wheezing, will just resume usual Prednisone 5mg po daily - INR 1.8 PE unlikely at this point but will check doppler lower ext as patient has history of DVT per patient - Speech Therapy eval to r/o Aspiration given location of pneumonic process ESRD - euvolemic - HD On mwf - consult Nephro DM 2 - did not eat today - BSG 150s - hold Lantus 30 units in HS tonight, resume accordingly ISS for now CHRONIC ATRIAL FIBRILLATION ON COUMADIN - INR 1.8 coumadin 7.5 mg po one tonight - monitor INR resume usual Coumadin 5mg po daily - continue Metoprolol CHF RIGHT SIDED - on HD HYPOTHYROIDISM - continue usual Levothyroxine CHRONIC ANEMIA - appears stable CHRONIC ABDOMINAL WOUND - on Wound Vac - Augmentin and Cipro listed on med rec, not on [facility] records will verify Wound care consult DVT PROPH INR 1.8 on coumadin Full code per patient Disposition lives with family ff up with Dr. Gonzalez for PCP ff up with Dr. Houston for Nephro VTE Prophylaxis VTE Risk Assessment Done? Y/N: Yes Risk Level: Moderate Given or contraindicated: Warfarin (Coumadin) Physical Exam (per Admitting): General- oriented x 3, not in distress, speaks in sentences with no effort on Bipap mask Head- atraumatic Eyes- PERRL, EOMI, anicteric ENT- oropharynx clear Neck- supple, no JVD, no adenopathy, no thyromegaly; carotids +2/2, no bruits appreciated Lungs- mild rales at the right base, otherwise, no wheezing, rhonchi, good air entry bilaterally Heart- regular rhythm; no murmur, normal rate Abdomen- normal bowel sounds, soft, nontender, (+) pannus, (+) wound vac in place LLQ, (+) 2 small wounds right hip region with dressing in place, no signs of infection Extremities- (+) bilateral lower leg edema grade 2, no calf tenderness; peripheral pulses intact Neuro- alert, oriented x 3; PERRL, EOMI; no gross focal deficits Skin- warm & dry Hospital Course 62 year old female with history of COPD on chronic 2 liters via nasal cannula, ESRD, DM 2, Chronic A fib on Coumadin, CHF Right sided, Chronic wounds, presenting with shortness of breath x 1 day. 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 - has history of MRSA, check nasal MRSA -doubt any Pul Embolism given INR value - CT chest without contrast to further characterize right sided infiltrates on CXR -Started on empiric Vanc, Zosyn, Levaquin -required BIPAP initially -continue Nebs and her usual dose of Prednisone -Appreciate Speech Therapy evaluation -MRSA screen negative -d/c Vancomycin -Clinically better and WCC is improving -better today but not yet ready to be discharged -WCC decresed but a little high at 16K today -Clinically much improved -Will discharge home today ESRD - euvolemic - HD On MWF - consult Nephro,appreciate input -Continue Dialysis DM 2 - BSG 150s - hold Lantus 30 units in HS tonight, resume accordingly -ISS for now -will restart usual Lantus -No acute issue CHRONIC ATRIAL FIBRILLATION ON COUMADIN - INR 1.8 -Coumadin 7.5 mg po one tonight - monitor INR -therapeutic at 2.0 on 05/28/17 -resume usual Coumadin 5mg po daily - continue Metoprolol -INR therapeutic-2.5 today CHF RIGHT SIDED - on HD HYPOTHYROIDISM - continue usual Levothyroxine CHRONIC ANEMIA - appears stable CHRONIC ABDOMINAL WOUND - on Wound Vac - Augmentin and Cipro listed [facility] med rec[facility] - Wound care consult-appreciate input DVT PROPH INR 1.8 on Coumadin Now 2.0 05/28/17 2.5 today Full code per patient Disposition ff up with Dr. Gonzalez for PCP ff up with Dr. Houston for Nephro Likely discharge tomorrow Total time spent on discharge = 35 minutes This includes examination of the patient, discharge planning, medication reconciliation, and communication with other providers. Discharge Instructions Date of Service May 30, 2017. Admission Reason for Admission: Shortness Of Breath Discharge Discharge Diagnosis / Problem: Respiratory Failure,RLL pneumonia,ESRD on HD Discharge Goals Goal(s): Prevent Disease Progression Activity Recommendations Activity Limitations: resume your previous activity . Instructions / Follow-Up Instructions / Follow-Up Dr Gonzalez on 06/05/17 10 10:25 AM.Keep appointment for Dialysis,Follow up with Coag clinic Current Hospital Diet Patient's current hospital diet: Diabetes Type 2 Diet, Renal Diet Discharge Diet Recommended Diet: Diabetes Type 2 Diet, Renal Diet Fluid Restriction: 1500 ml (6 cups) Pending Studies Studies pending at discharge: no Laboratory Results Hemoglobin A1c Test 03/27/17 06:13 Range/Units Estimated Average Glucose 143 mg/dl Hemoglobin A1c 6.6 H 4.5-5.6 % Medical Emergencies . Who to Call and When: Medical Emergencies: If at any time you feel your situation is an emergency, please call 911 immediately. . Non-Emergent Contact Non-Emergency issues call your: Primary Care Provider . Past History Medical & Surgical History: (1) Respiratory failure (2) Atrial fibrillation (3) Pulmonary HTN (4) COPD (chronic obstructive pulmonary disease) (5) DM type 2 (diabetes mellitus, type 2) (6) HTN (hypertension) (7) RHF (right heart failure) (8) ESRD (end stage renal disease) on dialysis (9) Hypothyroidism (10) Depression (11) S/P cholecystectomy (12) S/P debridement . "Provider Documentation" section prepared by Deloris Dias. . VTE Core Measure Inpt VTE Proph given/why not?: Warfarin (Coumadin) <Electronically signed by Deloris Dias M.D.> Signed: 05/30/17 2215 Signed: The status of this report is Signed * If report status is Draft, the document has not been finalized by the responsible provider. Additional Copies To Narendra Gonzalez M.D.
[2017-06-12] MEDS ORDERED: CIPR1TAB11 PO (15:05)
[2017-06-12] MEDS ORDERED: AMOX500T PO (15:05)
== END 2017-05-30 18:45 | disposition home health service (06) | DRG 193 ==
LOC: C.EDB 19:51 → C.MSICU 22:33 → ENRESERV 22:39 → C.4E 05-27 10:26
PROVIDERS: ADMIT Internal Medicine; ATTEND Internal Medicine
DX: J18.9 Pneumonia, unspecified organism (principal); J96.21 Acute and chronic respiratory failure with hypoxia; N18.6 End stage renal disease; I13.2 Hypertensive heart and chronic kidney disease with heart failure and with stage 5 chronic kidney disease, or end stage renal disease; S31.109D Unspecified open wound of abdominal wall, unspecified quadrant without penetration into peritoneal cavity, subsequent encounter; E11.22 Type 2 diabetes mellitus with diabetic chronic kidney disease; I48.2 Chronic atrial fibrillation; J44.9 Chronic obstructive pulmonary disease, unspecified; I50.9 Heart failure, unspecified; E78.5 Hyperlipidemia, unspecified; E03.9 Hypothyroidism, unspecified; D63.8 Anemia in other chronic diseases classified elsewhere; F32.9 Major depressive disorder, single episode, unspecified; E66.01 Morbid (severe) obesity due to excess calories; E11.40 Type 2 diabetes mellitus with diabetic neuropathy, unspecified; I27.2 Other secondary pulmonary hypertension; Z79.899 Other long term (current) drug therapy; Z79.01 Long term (current) use of anticoagulants; Z79.4 Long term (current) use of insulin; Z79.52 Long term (current) use of systemic steroids; Z79.82 Long term (current) use of aspirin; Z99.2 Dependence on renal dialysis; Z68.39 Body mass index [BMI] 39.0-39.9, adult; Z99.81 Dependence on supplemental oxygen; Z87.891 Personal history of nicotine dependence; Z83.3 Family history of diabetes mellitus; Z82.49 Family history of ischemic heart disease and other diseases of the circulatory system; Z80.8 Family history of malignant neoplasm of other organs or systems; X58.XXXD Exposure to other specified factors, subsequent encounter

== ENCOUNTER 2017-06-29 07:27 | Emergency (ER) | payer OTHER ==
[~2017-06-29] VITALS: Ht 162.6 cm; Wt 100.0 kg
[~2017-06-29 07:27] MED LIST changes: +AMOX500T PO; -CMD/25 PO
[2017-06-29 07:31] VITALS: TEMP 36.9; Ht 162.6 cm; Wt 100.0 kg
--- NOTE | 2017-06-29 07:52 | EMERGENCY ROOM VISIT NOTE ---
History Report prepared by Hailey: Champ Dupont Under the Supervision of: Dr. Paula Sexton M.D. First contact with patient: 07:38 Chief Complaint: CONGESTION Stated Complaint: CONGESTION History of Present Illness The patient is a 62 year old female who presents to the Emergency Room with complaints of constant SOB beginning yesterday. She notes having a history of COPD, diabetes mellitus, and CHF. She is on dialysis, with dialysis treatment every Friday, Friday, and Friday. She notes that her last full treatment was two days ago. She reports she makes a small amount of urine and the ability to control when she goes to the bathroom. The patient states that she wears 4L of home oxygen continuously. She denies chest pain, fever, abdominal pain, or weight gain. She notes that she has a wound vac in place on her abdomen that she was told is healing well. Source of History: patient Onset: yesterday Position: chest Quality: other (shortness of breath) Timing: constant Associated Symptoms: No fevers, No chest pain, No abdominal pain Note: she denies any weight gain Review of Systems See HPI for pertinent positives & negatives. A total of 10 systems reviewed and were otherwise negative. Past Medical & Surgical Medical Problems: (1) Atrial fibrillation (2) Chronic respiratory failure with hypoxia (3) chronic wound (4) COPD (chronic obstructive pulmonary disease) (5) Depression (6) DM type 2 (diabetes mellitus, type 2) (7) ESRD (end stage renal disease) on dialysis (8) HLD (hyperlipidemia) (9) HTN (hypertension) (10) Hypothyroidism (11) Neuropathy (12) Open abdominal wall wound (13) Pulmonary HTN (14) RHF (right heart failure) (15) Shortness of breath Surgical Problems: (1) S/P cholecystectomy (2) S/P debridement Family History Diabetes mellitus MOTHER FH: brain cancer FATHER FH: heart disease MOTHER Social History Smoking Status: Former Smoker Alcohol Use: none Drug Use: none Marital Status: Housing Status: lives with family Occupation Status: disabled Current/Historical Medications Scheduled Amoxicillin & Pot Clavulanate (Augmentin 500MG), 875 MG PO BID Ascorbic Acid (Vitamin C), 500 MG PO BID Aspirin (Aspirin Ec), 81 MG PO DAILY Atorvastatin (Lipitor), 40 MG PO DAILY B-Complex W/ C & Folic Acid (Renal Vitamin 0.8 mg), 1 TAB PO DAILY Calcitriol (Rocaltrol Cap), 0.25 MCG PO UD Cholecalciferol (Vitamin D3), 1 CAP PO DAILY Ciprofloxacin Tab (Cipro), 750 MG PO BID Collagenase (Santyl), 1 APPLN TOP UD Cyanocobalamin (Vitamin B-12), 1,000 MCG PO DAILY Docusate Sodium (Colace), 1 CAP PO BID Gabapentin (Neurontin), 400 MG PO BID Home O2 Therapy (Oxygen), 4 LITERS NA CONTINOUS Insulin Aspart (Novolog), Unknown Dose SC AC Insulin Glargine (Lantus Solostar), 30 UNITS SC HS Levothyroxine Sodium (Synthroid), 125 MCG PO DAILY Magnesium Oxide (Mag-Ox), 400 MG PO BID Metoprolol Succ (Toprol Xl) (Toprol-Xl), 25 MG PO DAILY Pantoprazole (Protonix), 20 MG PO DAILY Prednisone (Prednisone), 5 MG PO DAILY Sertraline (Zoloft), 100 MG PO DAILY Tiotropium [place] (Spiriva Handihaler), 1 CAP INH DAILY Warfarin Sodium (Coumadin), 5 MG PO 5XWK Warfarin Sodium (Coumadin), 1.5 TAB PO 2XWK Scheduled PRN Hydrocodone/Acetaminophen 5MG/325MG ([place] 5MG/325MG), 1 TABLET PO Q6H PRN for Pain Allergies Coded Allergies: Bacitracin (Verified Allergy, Intermediate, RASH,ITCH, 06/29/17) Celecoxib (Verified Allergy, Intermediate, RASH TO SULFA DRUGS, 06/29/17) Neomycin (Verified Allergy, Intermediate, RASH,ITCH, 06/29/17) Polymyxin B (Verified Allergy, Intermediate, RASH,ITCH, 06/29/17) Sulfa Antibiotics (Verified Allergy, Intermediate, RASH,HAS TAKEN GLIPIZIDE W/O REACTION, 06/29/17) Tigecycline (Verified Adverse Reaction, Severe, MILD PANCREATITIS, ) 61 yo F placed on IV tigecycline for wound infection, after 5-6 days developed decreased appetite, had nonspecific abdominal pain from admission and was refusing to lie back for daily abd assessments because of pain in other areas of abdomen. Decreased appetite persisted, also in context of worsening depression and stated apathy, WBC continued to increase, CT chest revealed n/s changes possibly consistent with mild pancreatitis, lipase drawn and elevated, other causes ruled out, clinical pancreatitis on exam. Diruretics/albumin stopped to avoid further rehydration, tigecycline discontinued, continuing supportive care. Codeine (Verified Adverse Reaction, Intermediate, GI UPSET, 06/29/17) Physical Exam Vital Signs Date Time Temp Pulse Resp B/P (MAP) Pulse Ox O2 Delivery O2 Flow Rate FiO2 06/29/17 10:30 61 18 103/55 92 Nasal Cannula 4.0 06/29/17 08:04 96 Nasal Cannula 4.0 06/29/17 07:31 36.9 73 18 108/67 85 Nasal Cannula 4.0 Physical Exam Vital signs reviewed. General: Well-appearing, in no significant distress. HEENT: No scleral icterus, PERRLA, neck supple. Atraumatic. Cardiovascular: Regular rate and rhythm, no extra sounds. Pulmonary: Rhonchi bilaterally, slightly increased work of breathing nasal canula of breathing Abdomen: Soft, nontender, nondistended, positive bowel sounds. Musculoskeletal: Atraumatic, no peripheral edema. Neurologic: Patient awake alert and oriented x 3. Skin: Chronic peripheral edema with skin changes to bilateral LE, no evidence of cellulitis, warm, dry. Medical Decision & Procedures ER Provider Diagnostic Interpretation: Radiology results as stated below per my review and radiologist interpretation: CHEST ONE VIEW PORTABLE HISTORY: Short of breath. Congestive heart failure. COMPARISON: Chest 05/26/2017. FINDINGS: Right jugular dual-lumen catheter terminates in the SVC. No pneumothorax. Small right pleural effusion and right basilar densities have slightly progressed. The heart remains enlarged. There is mild pulmonary vascular congestion without overt edema. IMPRESSION: 1. Mild pulmonary vascular congestion without overt edema. 2. Stable cardiomegaly. 3. Slight progression of the small right pleural effusion and right basilar density suggesting atelectasis. Electronically signed by: Jordon Littlejohn M.D. 06/29/2017 8:11 AM Laboratory Results 06/29/17 08:00 Red Blood Count 4.35, Mean Corpuscular Volume 85.7, Mean Corpuscular Hemoglobin 24.4, Mean Corpuscular Hemoglobin Concent 28.4, Mean Platelet Volume 8.9, Neutrophils (%) (Auto) 66.1, Lymphocytes (%) (Auto) 16.9, Monocytes (%) (Auto) 11.9, Eosinophils (%) (Auto) 4.4, Basophils (%) (Auto) 0.4, Neutrophils # (Auto ) 7.90, Lymphocytes # (Auto) 2.02, Monocytes # (Auto) 1.42, Eosinophils # (Auto ) 0.53, Basophils # (Auto) 0.05 06/29/17 08:00 Test 06/29/17 08:00 06/29/17 08:04 White Blood Count 11.96 K/uL (4.8-10.8) Red Blood Count 4.35 M/uL (4.2-5.4) Hemoglobin 10.6 g/dL (12.0-16.0) Hematocrit 37.3 % (37-47) Mean Corpuscular Volume 85.7 fL (80-100) Mean Corpuscular Hemoglobin 24.4 pg (25-34) Mean Corpuscular Hemoglobin Concent 28.4 g/dl (32-36) Platelet Count 341 K/uL (130-400) Mean Platelet Volume 8.9 fL (7.4-10.4) Neutrophils (%) (Auto) 66.1 % Lymphocytes (%) (Auto) 16.9 % Monocytes (%) (Auto) 11.9 % Eosinophils (%) (Auto) 4.4 % Basophils (%) (Auto) 0.4 % Neutrophils # (Auto) 7.90 K/uL (1.4-6.5) Lymphocytes # (Auto) 2.02 K/uL (1.2-3.4) Monocytes # (Auto) 1.42 K/uL (0.11-0.59) Eosinophils # (Auto) 0.53 K/uL (0-0.5) Basophils # (Auto) 0.05 K/uL (0-0.2) RDW Standard Deviation 61.3 fL (36.4-46.3) RDW Coefficient of Variation 19.6 % (11.5-14.5) Immature Granulocyte % (Auto) 0.3 % Immature Granulocyte # (Auto) 0.04 K/uL (0.00-0.02) Anion Gap 6.0 mmol/L (3-11) Est Creatinine Clear Calc Drug Dose 17.0 ml/min Estimated GFR () 13.4 Estimated GFR (Non- 11.6 BUN/Creatinine Ratio 8.2 (10-20) Calcium Level 9.5 mg/dl (8.5-10.1) Magnesium Level 2.7 mg/dl (1.8-2.4) Total Bilirubin 0.3 mg/dl (0.2-1) Direct Bilirubin 0.1 mg/dl (0-0.2) Aspartate Amino Transf (AST/SGOT) 37 U/L (15-37) Alanine Aminotransferase (ALT/SGPT) 34 U/L (12-78) Alkaline Phosphatase 152 U/L (45-117) Total Creatine Kinase 19 U/L (26-192) Creatine Kinase MB 1.1 ng/ml (0.5-3.6) Creatine Kinase MB Ratio 5.8 (0-3.0) Total Protein 7.4 gm/dl (6.4-8.2) Albumin 2.5 gm/dl (3.4-5.0) Bedside Troponin I < 0.030 ng/ml (0-0.045) Laboratory results per my review. ECG Indication: SOB/dyspnea Rate (beats per minute): 83 Rhythm: normal sinus Findings: 1st degree AV block, other (right axis deviation) Comparison ECG Date: 05/26/2017 and 05/29/2017 Change: T wave abnormality new compared to 05/26/2017 but similar to 05/29/2017 ED Course 0740: Past medical records reviewed. The patient was evaluated in room A11. A complete history and physical examination was performed. 0937: Upon reevaluation, the patient appeared to have improvement of her symptoms. I discussed findings with her. She verbalized agreement of the treatment plan. She was discharged home. Medical Decision Differential diagnosis: Etiologies such as infections, reactive airway disease, pneumonia, pneumothorax , COPD, CHF, cardiac ischemia, pulmonary embolism, musculoskeletal, gastrointestinal, as well as others were entertained. This patient was evaluated and appeared to be in no significant distress. Patient is in good spirits and is here for evaluation because her home health nurse appreciated some abnormal breath sounds yesterday on exam. Patient is afebrile and is maintaining her oxygenation on 4 L nasal cannula. The initial hypoxic saturation was obtained prior to the nasal cannula being connected to the oxygen source. Chest x-ray reveals some pulmonary vascular congestion. EKG reveals no evidence of acute ischemic change. Laboratory work is fairly unrevealing but is consistent with her end-stage renal disease. The patient is due for dialysis tomorrow morning. She is anxious to leave and is happy with the plan for discharge. She will follow-up with her dialysis as scheduled tomorrow, her PCP for reevaluation and return to the ER for worsening of symptoms or any medical concerns. Medication Reconcilliation Current Medication List: was personally reviewed by me Blood Pressure Screening Patient's blood pressure: Low blood pressure Blood pressure disposition: Did not require urgent referral Impression Primary Impression: End-stage renal disease on hemodialysis Additional Impression: Fluid overload Scribe Attestation The scribe's documentation has been prepared under my direction and personally reviewed by me in its entirety. I confirm that the note above accurately reflects all work, treatment, procedures, and medical decision making performed by me. Departure Information Dispostion Discharge/Transfer to [facility] Referrals Narendra Gonzalez M.D. (PCP) Forms HOME CARE DOCUMENTATION FORM, IMPORTANT VISIT INFORMATION Patient Instructions My [facility] Additional Instructions Diagnosis: End-stage renal disease on hemodialysis, fluid overload. Please follow-up with your dialysis treatments tomorrow as scheduled. Minimize fluid intake today. Wear your oxygen as prescribed. Return to emergency department for chest pain, shortness of breath, fevers, or any medical concerns. Problem Qualifiers
--- NOTE | 2017-06-29 08:13 | DIAGNOSTIC IMAGING REPORT ---
CHEST ONE VIEW PORTABLE HISTORY: Short of breath. Congestive heart failure. COMPARISON: Chest 05/26/2017. FINDINGS: Right jugular dual-lumen catheter terminates in the SVC. No pneumothorax. Small right pleural effusion and right basilar densities have slightly progressed. The heart remains enlarged. There is mild pulmonary vascular congestion without overt edema. IMPRESSION: 1. Mild pulmonary vascular congestion without overt edema. 2. Stable cardiomegaly. 3. Slight progression of the small right pleural effusion and right basilar density suggesting atelectasis. Electronically signed by: Jordon Littlejohn M.D. 06/29/2017 8:11 AM Dictated Date/Time: 06/29/2017 8:10 AM
[2017-06-29 08:24] LABS: BUN/CREATININE RATIO 8.2 (10-20); CALCIUM 9.5 mg/dl (8.5-10.1); CREATININE 3.9 mg/dl (0.60-1.20); MAGNESIUM 2.7 mg/dl (1.8-2.4); POTASSIUM 4.8 mmol/L (3.5-5.1)
[2017-06-29] MEDS ORDERED: WARF5TAB90 PO (08:25)
[2017-06-29] MEDS ORDERED: SNTO30 TOP (08:25)
[2017-06-29 08:29] LABS: CKMB/CK RATIO 5.8 (0-3.0)
[2017-06-29 08:33] LABS: HEMATOCRIT 37.3 % (37-47); MEAN CELL VOLUME 85.7 fL (80-100); MEAN CORPUSCULAR HEMOGLOBIN 24.4 pg (25-34); MEAN CORPUSCULAR HGB CONC 28.4 g/dl (32-36); MEAN PLATELET VOLUME 8.9 fL (7.4-10.4); PLATELET COUNT 341 K/uL (130-400); RED BLOOD COUNT 4.35 M/uL (4.2-5.4); WHITE BLOOD COUNT 11.96 K/uL (4.8-10.8)
[2017-06-29 08:47] LABS: BASO % 0.4 %; BASO ABS # 0.05 K/uL (0-0.2); COMPLETE YES; EOS % 4.4 %; IG% 0.3 %; LYMPH % 16.9 %; LYMPH ABS # 2.02 K/uL (1.2-3.4); MONO % 11.9 %; NEUT % 66.1 %
[2017-06-29 10:30] VITALS: BP 103/55; PULSE 61; O2SAT 92
== END 2017-06-29 10:43 | disposition home or self-care (01) ==
LOC: C.EDB 07:29 → C.EDA 10:43
DX: N18.6 End stage renal disease (principal); E87.70 Fluid overload, unspecified; J44.9 Chronic obstructive pulmonary disease, unspecified; E11.22 Type 2 diabetes mellitus with diabetic chronic kidney disease; I50.9 Heart failure, unspecified; I48.91 Unspecified atrial fibrillation; S31.109A Unspecified open wound of abdominal wall, unspecified quadrant without penetration into peritoneal cavity, initial encounter; X58.XXXA Exposure to other specified factors, initial encounter; F32.9 Major depressive disorder, single episode, unspecified; E78.5 Hyperlipidemia, unspecified; I12.0 Hypertensive chronic kidney disease with stage 5 chronic kidney disease or end stage renal disease; E03.9 Hypothyroidism, unspecified; E11.40 Type 2 diabetes mellitus with diabetic neuropathy, unspecified; I27.20 Pulmonary hypertension, unspecified; R60.0 Localized edema; I44.0 Atrioventricular block, first degree; Z99.2 Dependence on renal dialysis; Z99.81 Dependence on supplemental oxygen; Z87.891 Personal history of nicotine dependence; Z83.3 Family history of diabetes mellitus; Z80.8 Family history of malignant neoplasm of other organs or systems; Z79.82 Long term (current) use of aspirin; Z79.4 Long term (current) use of insulin; Z79.01 Long term (current) use of anticoagulants

== ENCOUNTER → 2017-08-12 | Outpatient (CLI) | payer OTHER ==
[~2017-08-12] MED LIST changes: +CEFD1CAP14 PO; -SNTO30 EXT; +SNTO30 TOP
--- NOTE | 2017-08-12 15:22 | DIAGNOSTIC IMAGING REPORT ---
CHEST 2 VIEWS ROUTINE CLINICAL HISTORY: 62 years-old Female presenting with ACUTE BRONCHITIS. TECHNIQUE: PA and lateral views of the chest were obtained. COMPARISON: 06/29/2017. FINDINGS: Tunneled right internal jugular central venous catheter terminates in the superior cavoatrial junction. Atherosclerosis of the aortic arch. Cardiac silhouette remains enlarged. Mild pulmonary vascular congestion. Persistent though slightly decreased vague opacity at the right lung base. No new focal infiltrate. Stable to slight decrease in small right pleural effusion. No pneumothorax. Osseous structures normal. Upper abdomen normal. IMPRESSION: 1. Stable to slight interval decrease in right basilar atelectasis and right pleural effusion. 2. Cardiomegaly and mild volume overload without [place] pulmonary edema. Electronically signed by: Narendra Jones M.D. 08/12/2017 3:21 PM Dictated Date/Time: 08/12/2017 3:19 PM
== END | disposition home or self-care (01) ==
LOC: C.RAD1850 14:54
PROVIDERS: ATTEND Physician Assistant
DX: J20.9 Acute bronchitis, unspecified (principal); J98.11 Atelectasis; J90 Pleural effusion, not elsewhere classified; I51.7 Cardiomegaly; J81.0 Acute pulmonary edema

== ENCOUNTER 2017-12-15 14:05 | Inpatient (IN) | payer OTHER ==
[~2017-12-15] VITALS: Ht 162.6 cm; Wt 100.8 kg
[~2017-12-15 14:05] MED LIST changes: -AMOX500T PO; +GABA-1220 PO; -GABA1CAP5 PO
[2017-12-15] MEDS ORDERED: ACETAMINOPHEN 325 MG TAB PO PRN (15:30)
[2017-12-15] MEDS ORDERED: ONDANSETRON INJ 2 MG/ML 2 ML VIAL IV PRN (15:30)
--- NOTE | 2017-12-15 15:31 | History and Physical ---
History & Physical Date & Time of Service: Dec 15, 2017 at 15:31 Chief Complaint: Infected Abd Wound Primary Care Physician: Narendra Gonzalez M.D. History of Present Illness Source: patient Patient is a 62 yr female with multiple comorbidities including COPD on chronic 4 liters via nasal cannula, ad steroid dependent, ESRD on dialysis, DM II, Chronic A fib on Coumadin, CHF Right sided, Chronic wounds, Depressions, Obesity , HTN, Hypothymism and other problems presents with history of chronic worsening abdominal wound which is associated with pain, yellowish discharge since one month duration. Patient was a direct admit for IV antibiotics on recommendation from her infectious disease . Patient visited her wound care clinic today and had debridement of wound and was informed that wound Vac will be placed. Patient states pain at the site of abdomen is 8/10, sharp shooting pain. Denies any fever, chills, chest pain, SOB, palpitations, dizziness, diarrhea, dysuria. She also reports that she doesn't feel well today. Past Medical/Surgical History Medical Problems: (1) Acute exacerbation of CHF (congestive heart failure) (2) Acute hemorrhage (3) FRED (acute kidney injury) (4) Anemia (5) Atrial fibrillation (6) CHF (congestive heart failure) (7) Chronic respiratory failure with hypoxia (8) chronic wound (9) Congestive heart failure (10) Congestive heart failure (11) Congestive heart failure (12) COPD (chronic obstructive pulmonary disease) (13) COPD exacerbation (14) Depression (15) DM type 2 (diabetes mellitus, type 2) (16) End-stage renal disease on hemodialysis (17) End-stage renal disease on hemodialysis (18) ESRD (end stage renal disease) on dialysis (19) Fluid overload (20) Fluid overload (21) HLD (hyperlipidemia) (22) HTN (hypertension) (23) Hypothyroidism (24) Hypoxia (25) Hypoxia (26) Leukocytosis (27) Leukocytosis (28) Low grade fever (29) Low grade fever (30) Neuropathy (31) Open abdominal wall wound (32) Pleural effusion, right (33) Pressure ulcer (34) Pulmonary HTN (35) Rapid atrial fibrillation (36) Rapid atrial fibrillation (37) Renal insufficiency (38) Respiratory failure (39) RHF (right heart failure) (40) Sepsis (41) Sepsis (42) Sepsis associated hypotension (43) Severe sepsis with acute organ dysfunction (44) Shortness of breath (45) Shortness of breath (46) Supratherapeutic INR Surgical Problems: (1) S/P cholecystectomy (2) S/P debridement Family History Diabetes mellitus MOTHER FH: brain cancer FATHER FH: heart disease MOTHER As Above Social History Smoking Status: Former Smoker Alcohol Use: none Drug Use: none Marital Status: Housing status: lives with family Occupational Status: disabled Immunizations History of Influenza Vaccine: Yes Influenza Vaccine Date: Jun 19, 2016 Allergies Coded Allergies: Bacitracin (Verified Allergy, Intermediate, RASH,ITCH, 06/29/17) Celecoxib (Verified Allergy, Intermediate, RASH TO SULFA DRUGS, 06/29/17) Neomycin (Verified Allergy, Intermediate, RASH,ITCH, 06/29/17) Polymyxin B (Verified Allergy, Intermediate, RASH,ITCH, 06/29/17) Sulfa Antibiotics (Verified Allergy, Intermediate, RASH,HAS TAKEN GLIPIZIDE W/O REACTION, 06/29/17) Tigecycline (Verified Adverse Reaction, Severe, MILD PANCREATITIS, ) 61 yo F placed on IV tigecycline for wound infection, after 5-6 days developed decreased appetite, had nonspecific abdominal pain from admission and was refusing to lie back for daily abd assessments because of pain in other areas of abdomen. Decreased appetite persisted, also in context of worsening depression and stated apathy, WBC continued to increase, CT chest revealed n/s changes possibly consistent with mild pancreatitis, lipase drawn and elevated, other causes ruled out, clinical pancreatitis on exam. Diruretics/albumin stopped to avoid further rehydration, tigecycline discontinued, continuing supportive care. Codeine (Verified Adverse Reaction, Intermediate, GI UPSET, 06/29/17) Home Medications Scheduled Ascorbic Acid (Vitamin C), 500 MG PO BID Aspirin (Aspirin Ec), 81 MG PO DAILY Atorvastatin (Lipitor), 40 MG PO DAILY B-Complex W/ C & Folic Acid (Renal Vitamin 0.8 mg), 1 TAB PO DAILY Calcitriol (Rocaltrol Cap), 0.25 MCG PO UD Cefdinir (Omnicef), 300 MG PO Q2D Cholecalciferol (Vitamin D3), 1 CAP PO DAILY Ciprofloxacin Tab (Cipro), 750 MG PO BID Collagenase (Santyl), 1 APPLN TOP UD Cyanocobalamin (Vitamin B-12), 1,000 MCG PO DAILY Docusate Sodium (Colace), 1 CAP PO BID Gabapentin (Neurontin), 400 MG PO BID Home O2 Therapy (Oxygen), 4 LITERS NA CONTINOUS Insulin Aspart (Novolog), Unknown Dose SC AC Insulin Glargine (Lantus Solostar), 30 UNITS SC HS Levothyroxine Sodium (Synthroid), 125 MCG PO DAILY Magnesium Oxide (Mag-Ox), 400 MG PO BID Metoprolol Succ (Toprol Xl) (Toprol-Xl), 25 MG PO DAILY Pantoprazole (Protonix), 20 MG PO DAILY Prednisone (Prednisone), 10 MG PO DAILY Sertraline (Zoloft), 100 MG PO DAILY Tiotropium [place] (Spiriva Handihaler), 1 CAP INH DAILY Warfarin Sodium (Coumadin), 5 MG PO 5XWK Warfarin Sodium (Coumadin), 2.5 TAB PO 2XWK Scheduled PRN Hydrocodone/Acetaminophen 5MG/325MG ([place] 5MG/325MG), 1 TABLET PO Q6H PRN for Pain Review of Systems See HPI for pertinent positives & negatives. A total of 10 systems reviewed and were otherwise negative. Physical Exam General Appearance: no apparent distress, + obese Head: normocephalic, atraumatic Eyes: normal inspection, PERRL, EOMI, sclerae normal ENT: normal ENT inspection, hearing grossly normal Neck: supple, trachea midline Respiratory/Chest: chest non-tender, lungs clear, normal breath sounds, no respiratory distress, no accessory muscle use Cardiovascular: no murmur, + irregularly irregular, + pertinent finding ( Chronic leg edema) Abdomen/GI: normal bowel sounds, non tender, soft, + pertinent finding ( Abdominal wound in bandage) Back: normal inspection Extremities/Musculoskelatal: normal inspection, + pedal edema, + pertinent finding (Chronic Venous stasis changes) 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 EKG EKG:pending Impression Assessment and Plan Abdominal Wound: S/P debridement: Wound Culture: Klebsiella Pneumonia ESBL multidrug resistant: Wound Vac and Wound Care as per Wound Care Check CBC, CMP, Blood cultures, lactate Gentle IV fluids given ESRD Start on Avycaz as per recommendations from ID ID consulted Leukocytosis: [place] chronic prednisone use is contributing Coagulopathy: INR:5.6 No acute bleeding issues Hold Coumadin Monitor INR ESRD Appears Euvolemic -HD On MWF consulted Nephrology DM II Last A1C:7.1 in 11/14/17 Continue ISS, Lantus Monitor BGs Chronic Afib: INR: 5.6 Hold Coumadin continue Metoprolol Chronic Steroid/Oxygen Dependent COPD Continue Nebs, Inhalers Oxygen: on 4L at baseline No signs of exacerbation Chronic CHF Right Sided on HD No signs of exacerbation Hypothyroidism: continue Levothyroxine check TSH 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: (left hip, left thigh, right thigh ) Continue wound Care DVT Px; ON Coumadin INR: 5.6 Code Status: Full code Resuscitation Status VTE Prophylaxis Will order VTE Prophylaxis: Yes
[2017-12-15] MEDS ORDERED: ALBUT/IPRATROP 3MG/0.5MG NEB 3 ML VIAL INH PRN (16:15)
[2017-12-15 16:19] VITALS: BP 82/44; PULSE 83; TEMP 36.7; O2SAT 91
[2017-12-15 16:32] LABS: BASO % 0.3 %; BASO ABS # 0.05 K/uL (0-0.2); EOS % 3.8 %; EOS ABS # 0.65 K/uL (0-0.5); HEMATOCRIT 38.9 % (37-47); HEMOGLOBIN 11.9 g/dL (12.0-16.0); IG# 0.16 K/uL (0.00-0.02); LYMPH % 9.8 %; LYMPH ABS # 1.67 K/uL (1.2-3.4); MEAN CELL VOLUME 86.8 fL (80-100); MEAN CORPUSCULAR HEMOGLOBIN 26.6 pg (25-34); MEAN PLATELET VOLUME 9.4 fL (7.4-10.4); MONO % 8.6 %; MONO ABS # 1.48 K/uL (0.11-0.59); NEUT % 76.6 %; NEUT ABS # 13.11 K/uL (1.4-6.5); PLATELET COUNT 251 K/uL (130-400); RED CELL DISTRIBUTION WIDTH CV 20.7 % (11.5-14.5); RED CELL DISTRIBUTION WIDTH SD 65.6 fL (36.4-46.3); WHITE BLOOD COUNT 17.12 K/uL (4.8-10.8)
[2017-12-15] MEDS ORDERED: GLUCOSE 10 TABS/TUBE PO PRN ×2 (16:45→17:15)
[2017-12-15] MEDS ORDERED: DEXTROSE 50% 50 ML SYR IV PRN ×2 (16:45→17:15)
[2017-12-15] MEDS ORDERED: GLUCAGON FOR INJ 1 MG VIAL SQ PRN ×2 (16:45→17:15)
[2017-12-15] MEDS ORDERED: GLUCOSE 40% GEL 15 GM TUBE PO PRN ×2 (16:45→17:15)
[2017-12-15 16:49] LABS: INR 5.6 (0.9-1.1); MEAN CORPUSCULAR HGB CONC 30.6 g/dl (32-36)
[2017-12-15] MEDS: SODIUM CHLORIDE 0.9% IV SCH (16:59)
[2017-12-15] MEDS: CEFTAZIDIME AVIBACTAM IV SCH (16:59)
[2017-12-15] MEDS ORDERED: SODIUM CHLORIDE 0.9% 1000ML 1,000 ML IV ONE (17:00)
[2017-12-15 17:04] VITALS: BP 82/44; PULSE 88; TEMP 36.7; BMI 36.7
[2017-12-15 17:13] LABS: ALBUMIN 2.9 gm/dl (3.4-5.0); CALCIUM 8.7 mg/dl (8.5-10.1); CREATININE 3.68 mg/dl (0.60-1.20); POTASSIUM 4.1 mmol/L (3.5-5.1); TOTAL PROTEIN 7.8 gm/dl (6.4-8.2)
[2017-12-15] MEDS ORDERED: PHARMACY GLYCEMIC MGMT CONSULT PRN (17:37)
--- NOTE | 2017-12-15 17:46 | DIAGNOSTIC IMAGING REPORT ---
SINGLE VIEW CHEST CLINICAL HISTORY: Abdominal wound. FINDINGS: 2 AP, portable, upright chest radiographs are compared to study dated 08/04/2017 and correlated with chest CT dated 05/27/2017. The examination is degraded by portable technique and patient rotation. A right internal jugular central venous catheter is unchanged in position. The heart is enlarged and there is atherosclerotic calcification of the thoracic aorta. The pulmonary vasculature is noncongested. Bibasilar atelectasis is noted, right greater than left. No airspace consolidation or large pleural effusion is identified. No pneumothorax is seen. The skeletal structures are osteopenic. The bony thorax is grossly intact. IMPRESSION: Cardiomegaly with no acute cardiopulmonary abnormality. Electronically signed by: Preet Akbar M.D. 12/15/2017 5:44 PM Dictated Date/Time: 12/15/2017 5:43 PM
[2017-12-15] MEDS: INSULIN ASPART 100 UNITS/ML 3 ML PEN SC SCH ×2 (19:00→20:17)
[2017-12-15] MEDS ORDERED: NURSING VERBAL MED ORDER ONE (19:30)
[2017-12-15] MEDS ORDERED: SODIUM CHLORIDE 0.9% 500ML 500 ML IV ONE (19:45)
[2017-12-15] MEDS: DOCUSATE SODIUM 100 MG CAP PO SCH (20:10)
[2017-12-15] MEDS: MAGNESIUM OXIDE 400 MG TAB PO SCH (20:10)
[2017-12-15] MEDS: GABAPENTIN 400 MG CAP PO SCH (20:10)
[2017-12-15] MEDS: SODIUM CHLORIDE 0.9% 1000ML 1,000 ML IV SCH (20:10)
[2017-12-15] MEDS: ASCORBIC ACID 500 MG TAB PO SCH (20:11)
[2017-12-15] MEDS: HYDROCODONE/ACETAMIN 5/325MG TAB PO PRN (20:20)
[2017-12-15] MEDS ORDERED: INSULIN GLARGINE SOLOSTAR 100 UNITS/ML 3 ML PEN SC SCH ×2 (21:00)
[2017-12-15 21:30] VITALS: BP 85/44
[2017-12-15 23:01] VITALS: BP 78/46; PULSE 82; TEMP 37.2; O2SAT 93
[2017-12-16] MEDS ORDERED: INSULIN ASPART 100 UNITS/ML 3 ML PEN SC SCH
[2017-12-16] MEDS ORDERED: INSULIN ASPART 100 UNITS/ML 3 ML PEN SC ONE (02:00)
[2017-12-16] MEDS: SODIUM CHLORIDE 0.9% 1000ML 1,000 ML IV SCH ×2 (02:55→21:05)
[2017-12-16] MEDS: SODIUM CHLORIDE 0.9% IV SCH ×2 (03:44→16:16)
[2017-12-16] MEDS: CEFTAZIDIME AVIBACTAM IV SCH ×2 (03:44→16:16)
[2017-12-16] MEDS: LEVOTHYROXINE 125 MCG TAB PO SCH (05:52)
[2017-12-16 07:20] VITALS: BP 102/71; PULSE 76; TEMP 36.7; O2SAT 95
[2017-12-16 07:36] LABS: HEMOGLOBIN 10.9 g/dL (12.0-16.0); MEAN CELL VOLUME 87.2 fL (80-100); MEAN CORPUSCULAR HEMOGLOBIN 26.4 pg (25-34); MEAN CORPUSCULAR HGB CONC 30.3 g/dl (32-36); MEAN PLATELET VOLUME 9.1 fL (7.4-10.4); PLATELET COUNT 224 K/uL (130-400); RED CELL DISTRIBUTION WIDTH CV 20.4 % (11.5-14.5); WHITE BLOOD COUNT 11.73 K/uL (4.8-10.8)
[2017-12-16 07:42] LABS: INR 3.5 (0.9-1.1)
[2017-12-16 07:45] VITALS: O2SAT 96
[2017-12-16 08:14] LABS: CALCIUM 8.9 mg/dl (8.5-10.1); CREATININE 4.69 mg/dl (0.60-1.20); POTASSIUM 4.1 mmol/L (3.5-5.1)
--- NOTE | 2017-12-16 08:24 | NEPHROLOGY CONSULTATION ---
DATE OF CONSULTATION: 12/16/2017 ATTENDING OF RECORD: Yan Conti MD. REASON FOR CONSULTATION: ESRD. HISTORY OF PRESENT ILLNESS: This is a 62-year-old female on dialysis at the [facility] on Mondays, Wednesdays, and Fridays, had dialysis on Friday, has been dealing with chronic wounds along her pannus as well as lower extremities. Follows with wound care closely, has been having worsening wound that is not improving despite attempts at oral antibiotics as an outpatient and the patient was admitted for IV antibiotics and a wound VAC placement to help heal the chronic wounds. The patient does deal with morbid obesity, chronic right-sided heart failure with a chronically low blood pressures on oxygen chronically with her underlying COPD. PAST MEDICAL HISTORY: Right-sided heart failure, atrial fibrillation, end-stage renal disease, CHF, chronic wounds, type 2 diabetes, hypertension, hyperlipidemia, hypothyroidism. PAST SURGICAL HISTORY: Dialysis catheter placement, cholecystectomy, debridements. FAMILY HISTORY: Significant for diabetes. SOCIAL HISTORY: Former smoker, no alcohol, no drugs. Lives at home with family. REVIEW OF SYSTEMS: Did have some chills. No documented fevers, no headaches, chronic shortness of breath, good appetite. No chest pain, no nausea, vomiting, no diarrhea or constipation. Does have these wounds on her pannus, one of which was not improving. All other review of systems otherwise negative. CURRENT MEDICATIONS: Coumadin 5 mg a day, Lipitor 40 mg daily, vitamin B12 1000 mcg daily, Toprol-XL 25 mg daily, prednisone 5 mg a day, Zoloft 100 mg daily, Spiriva 1 puff inhaler daily, Synthroid 125 mcg daily, vitamin C 500 mg p.o. b.i.d., Colace 100 mg p.o. b.i.d., Neurontin 400 mg p.o. b.i.d., mag oxide 400 mg p.o. b.i.d., Lantus at night, normal saline at 75 mL an hour, Ceptaz IV q. 12. PHYSICAL EXAMINATION: VITAL SIGNS: Temperature 37.2, pulse 82, blood pressure 78/46, satting 93% on 5 liters. GENERAL: Awake, alert, oriented x3, morbid obesity. EYES: No scleral icterus. ENT: Moist mucous membranes. NECK: Supple. PULMONARY: Clear to auscultation. CARDIAC: Distant heart sounds. ABDOMEN: Does have a large pannus with wounds. EXTREMITIES: No significant swelling in the lower extremities. Does have chronic wounds on both legs. DERMATOLOGIC: Multiple wounds on legs and pannus. NEUROLOGIC: Nonfocal. LABORATORY DATA: We do have elevated lactic acid of 3, repeat improved down to 1.8. Sodium of 131, potassium 4.1, chloride is 96, bicarbonate is 21, BUN is 24, creatinine 3.68, glucose 240, calcium is 8.7, mag is 2.2, alkaline phosphatase 183, albumin is 2.9. INR was supratherapeutic at 5.6. Repeat one is pending for today, white count is elevated at 17,000, H&H 11 and 38, platelet count is 251. Blood cultures are pending. Chest x-ray shows cardiomegaly with no acute cardiopulmonary abnormality. ASSESSMENT AND PLAN: 1. End-stage renal disease: No role for emergent dialysis today. We will continue the Friday, Friday, Friday dialysis schedule. Blood pressures do tend to run low on this patient and the patient relatively asymptomatic at this time; however, blood pressures appear to be lower than her baseline. I agree with the low rate of IV fluids at this point while we continue to give antibiotics and control the infection, hopefully blood pressure improves up to the systolics of 90s off dialysis. Okay with systolics in the 80s on dialysis. We will continue low rate of IV fluids. Monitor volume status and as infection starts to improve, we will eventually work on removing this excess fluid as an outpatient. Tends to run around 99 kilos and has been doing quite well as an outpatient and shows insight into her medical problems. Appreciate consultation.
[2017-12-16] MEDS ORDERED: ASPIRIN 81 MG ECTAB PO SCH (09:00)
[2017-12-16] MEDS: INSULIN ASPART 100 UNITS/ML 3 ML PEN SC SCH ×4 (09:31→21:02)
[2017-12-16] MEDS: TIOTROPIUM BROMIDE 5 PUFF/90 MCG INH INH SCH (09:31)
[2017-12-16] MEDS: MAGNESIUM OXIDE 400 MG TAB PO SCH ×2 (09:32→20:53)
[2017-12-16] MEDS: GABAPENTIN 400 MG CAP PO SCH ×2 (09:32→20:54)
[2017-12-16] MEDS: SERTRALINE HCL 100 MG TAB PO SCH (09:32)
[2017-12-16] MEDS: DOCUSATE SODIUM 100 MG CAP PO SCH ×2 (09:32→20:51)
[2017-12-16] MEDS: METOPROLOL SUCC 25MG EXT REL TAB PO SCH (09:32)
[2017-12-16] MEDS: ASCORBIC ACID 500 MG TAB PO SCH ×2 (09:32→20:53)
[2017-12-16] MEDS: ATORVASTATIN 40 MG TAB PO SCH (09:33)
[2017-12-16] MEDS: CYANOCOBALAMIN 500 MCG TAB (VIT B-12) PO SCH (09:33)
--- NOTE | 2017-12-16 11:26 | Progress Note ---
Progress Note Date of Service Dec 16, 2017. Progress Note ID Consult Dictated #[id number] A/P: 1. Abd wound - MDR klebsiella -Continue Avycaz at renal dose -Continue wound care -Will follow, thank you
--- NOTE | 2017-12-16 11:53 | Pharmacy Progress Note ---
Glycemic Control Intl Consult Date of Service Dec 16, 2017. Scope Glycemic Pharmacist consulted by Dr Conti on 12/15/17 for glycemic control and to write orders per [facility] inpatient glycemic control protocol Objective Weight (Kilograms): 97.000 Accuchecks BSG (last 24hrs): Test 12/15/17 16:09 12/15/17 18:03 12/15/17 20:06 12/16/17 02:00 Random Glucose 240 mg/dl (70-99) Bedside Glucose 205 mg/dl (70-90) 149 mg/dl (70-90) 102 mg/dl (70-90) Test 12/16/17 07:14 12/16/17 07:58 12/16/17 11:29 Random Glucose 92 mg/dl (70-99) Bedside Glucose 99 mg/dl (70-90) 112 mg/dl (70-90) Laboratory Data (last 24hrs) Test 12/15/17 16:09 12/16/17 07:14 Anion Gap 14.0 mmol/L 9.0 mmol/L BUN/Creatinine Ratio 6.5 6.4 Blood Urea Nitrogen 24 mg/dl 30 mg/dl Creatinine 3.68 mg/dl 4.69 mg/dl Potassium Level 4.1 mmol/L 4.1 mmol/L Sodium Level 131 mmol/L 133 mmol/L White Blood Count 17.12 K/uL 11.73 K/uL Red Blood Count 4.48 M/uL Hemoglobin 11.9 g/dL Hematocrit 38.9 % Mean Corpuscular Volume 86.8 fL Mean Corpuscular Hemoglobin 26.6 pg Mean Corpuscular Hemoglobin Concent 30.6 g/dl Platelet Count 251 K/uL Mean Platelet Volume 9.4 fL Neutrophils (%) (Auto) 76.6 % Lymphocytes (%) (Auto) 9.8 % Monocytes (%) (Auto) 8.6 % Eosinophils (%) (Auto) 3.8 % Basophils (%) (Auto) 0.3 % Neutrophils # (Auto) 13.11 K/uL Lymphocytes # (Auto) 1.67 K/uL Monocytes # (Auto) 1.48 K/uL Eosinophils # (Auto) 0.65 K/uL Basophils # (Auto) 0.05 K/uL HbA1c * Patient's A1c = this result is likely somewhat unreliable in ESRD patients d/ t interactions between the A1c analyzing technique and high levels of urea in ESRD, reduced RBC life span, iron deficiency anemia, and EPO administration. HbA1c > 7.5% in ESRD patient may overestimate the extent of hyperglycemia in ESRD patients. Recent Pertinent Medications Outpatient Anti-diabetic Regimen: * Lantus 30 units SQ HS * NovoLog per scale ACHS The patient is currently receiving: * Basal insulin: Lantus 15 units every 24 hours given at bedtime * Correctional Insulin: Novolog Correction per scale ACHS Goal Range: Low 110 mg/dL - High 140 mg/dL Correction Factor: 20 mg/dL/unit * Prandial insulin: Per carb ratio of 1 unit per 7 grams CHO consumed Risk Factors for Insulin Resistance: * Infection * Diet Assessment & Plan ASSESSMENT: * 62yo T2DM female well known to pharmacy from previous admissions/glycemic consults. * Typically, pt requires significantly less insulin while admitted (as compared to outpatient dosing) despite infection/illness * AM fasting BSG slightly low this AAM at 99 mg/dl --> will reduce basal insulin to prevent subsequent hypo * Current CF/CR are more aggressive than what is used on previous admissions -- > will "loosen" accordingly. PLAN FOR INPATIENT GLYCEMIC CONTROL: * Basal insulin * Decrease dosing, change to: Lantus 12 units SQ HS * Bolus insulin * Loosen parameters: * Novolog per scale ACHS or Q6hrs while NPO * Goal Range: Low 110 mg/dL - High 140 mg/dL * Correction Factor: 30 mg/dL/unit * Nutritional / Prandial insulin per carb ratio of 1 unit per 10 grams CHO consumed * Please note that the plan above was derived based on current level of insulin resistance and hospital stress. These recommendations are appropriate for inpatient admission only. Plan of care upon discharge will need to be reassessed to avoid potential outpatient hypo/hyperglycemia. Thank you.
--- NOTE | 2017-12-16 11:56 | INFECT. DISEASE CONSULTATION ---
DATE OF CONSULTATION: 12/16/2017 HISTORY OF PRESENT ILLNESS: This is a 62-year-old female who was admitted to the hospital from the wound care center after she had a wound culture obtained from her right abdomen which grew a multidrug resistant Klebsiella pneumonia which was sensitive to amikacin and tetracycline only. She has grown this from hip wounds in the past and was treated with a prolonged course of intravenous IV catheterization with success. She does have AN ALLERGY TO TETRACYCLINE and she is a dialysis patient. We did discuss antibiotic options yesterday and the decision was made to admit the patient to the hospital to begin intravenous therapy without a catheterization and also to have an irrigating VAC placed. She is with wound care on my examination and her VAC has just been placed on the wound. She did notice that it increased in size over the weekend and also had increased drainage and foul smell. She did speak with the wound center late last week and it was suggested that she come to the Emergency Room; however, she declined and decided to have this discussion at her appointment yesterday. She currently is tolerating an IV catheter as this was restarted yesterday upon admission. Her white blood cell count yesterday was 17, it is improved to 11. She denies any pain at the wound site. She denies any fevers or chills. Her remaining review of systems is reviewed and otherwise unremarkable. PAST MEDICAL HISTORY: Significant for congestive heart failure; chronic kidney disease, on dialysis; anemia, AFib, COPD with chronic oxygen requirement, depression, type 2 diabetes, hyperlipidemia, hypertension, hypothyroidism, multiple wounds and pulmonary hypertension. PAST SURGICAL HISTORY: Significant for cholecystectomy and multiple wound debridements. FAMILY HISTORY: Noncontributory. SOCIAL HISTORY: Significant for history of tobacco use. She denies any alcohol or drug use. She lives with her family. ALLERGIES: INCLUDE BACITRACIN, CELEBREX, NEOMYCIN, POLYMYXIN B, SULFA ANTIBIOTICS, TETRACYCLINE AND CODEINE. MEDICATIONS: Include Lantus, Lipitor, vitamin B12, Toprol-XL, prednisone, Zoloft, Spiriva, Synthroid, vitamin C, Colace, Neurontin, magnesium, Percocet, DuoNebs, Avycaz, Tylenol and Zofran. PHYSICAL EXAMINATION: VITAL SIGNS: She is afebrile, pulse 76, respiratory rate 16, blood pressure 102/71, oxygen saturation is 95% on 4 liters nasal cannula. GENERAL: She is awake, alert and oriented on my exam, she is in no acute distress. HEENT: Mucous membranes are moist. Extraocular muscles are intact. HEART: Regular. LUNGS: Clear with decreased breath sounds at the bases. ABDOMEN: Soft. Wound VAC is in place on the right abdominal wound. EXTREMITIES: There is trace lower extremity edema. LABORATORY STUDIES: CBC today reveals a white blood cell count of 11.7, hemoglobin 10.9, platelets are 224. Chemistry panel reveals a sodium of 133, potassium 4.1, chloride 101, bicarbonate 23, BUN 30, creatinine 4.6, and glucose 99. Wound culture is pending. Blood cultures are pending. IMAGING DATA: A chest x-ray in the ER shows no acute abnormality. ASSESSMENT AND PLAN: Infected right abdominal wound with multidrug resistant Klebsiella pneumonia. She will be maintained on Avycaz. She will likely need anywhere in the range of 2-3 weeks of antibiotics and will likely need a usp placement. Wound care will continue hospitalized. Thank you for this consultation.
[2017-12-16] MEDS: HYDROCODONE/ACETAMIN 5/325MG TAB PO PRN ×2 (12:16→21:07)
[2017-12-16 13:39] VITALS: Ht 162.6 cm; Wt 100.8 kg
[2017-12-16 15:54] VITALS: BP 96/56; PULSE 74; TEMP 36.2; O2SAT 94
[2017-12-16 16:00] VITALS: O2SAT 94
[2017-12-16] MEDS ORDERED: WARFARIN SOD 5 MG TAB PO SCH (16:00)
[2017-12-16] MEDS ORDERED: WARFARIN SOD 2.5 MG TAB PO ONE (19:28)
--- NOTE | 2017-12-16 19:33 | Progress Note ---
Medicine Progress Note Date & Time of Visit: Dec 16, 2017 at 19:22. Subjective Pt was seen and examined Lying in bed with no distress Wound care nurse at bedside placing the wound vac Pt said that she feels fine Denies any chest pain, palpitation, dizziness and SOB Objective Last 8 Hrs Date Time Temp Pulse Resp B/P (MAP) Pulse Ox O2 Delivery O2 Flow Rate FiO2 12/16/17 16:00 94 Nasal Cannula 4.0 12/16/17 15:54 36.2 74 20 96/56 (69) 94 Nasal Cannula 4.0 Physical Exam: General- No acute distress Head- atraumatic Eyes- PERRL, EOMI ENT- oropharynx clear Neck- supple, no JVD Lungs- clear to auscultation Heart- regular rhythm Abdomen- normal bowel sounds, Wound vac placed in right mid abdominal area Extremities- no calf tenderness Neuro- alert, oriented x 3; PERRL, EOMI Skin- warm & dry Laboratory Results: Last 24 Hours Test 12/15/17 20:06 12/15/17 22:57 12/16/17 02:00 12/16/17 07:14 Bedside Glucose 149 mg/dl 102 mg/dl Lactic Acid Level 1.8 mmol/L White Blood Count 11.73 K/uL Red Blood Count 4.13 M/uL Hemoglobin 10.9 g/dL Hematocrit 36.0 % Mean Corpuscular Volume 87.2 fL Mean Corpuscular Hemoglobin 26.4 pg Mean Corpuscular Hemoglobin Concent 30.3 g/dl RDW Standard Deviation 65.0 fL RDW Coefficient of Variation 20.4 % Platelet Count 224 K/uL Mean Platelet Volume 9.1 fL Prothrombin Time 35.5 SECONDS Prothromb Time International Ratio 3.5 Sodium Level 133 mmol/L Potassium Level 4.1 mmol/L Chloride Level 101 mmol/L Carbon Dioxide Level 23 mmol/L Anion Gap 9.0 mmol/L Blood Urea Nitrogen 30 mg/dl Creatinine 4.69 mg/dl Est Creatinine Clear Calc Drug Dose 13.9 ml/min Estimated GFR () 10.7 Estimated GFR (Non- 9.2 BUN/Creatinine Ratio 6.4 Random Glucose 92 mg/dl Calcium Level 8.9 mg/dl Magnesium Level 2.5 mg/dl Thyroid Stimulating Hormone (TSH) 2.450 uIu/ml Test 12/16/17 07:58 12/16/17 11:29 12/16/17 17:26 Bedside Glucose 99 mg/dl 112 mg/dl 176 mg/dl Assessment & Plan Abdominal Wound S/P debridement done yesterday Wound Culture: Klebsiella Pneumonia ESBL multidrug resistant WBC on admission 17K, trending down to 11K Blood cx pending Case discussed with ID and recommneded to continue Avycaz Wound vac placed today by wound care nurse Wound vac will change twice a week Monitor BMP Supratherapeutic INR INR:5.6 on admission No acute bleeding issues INR 3.5 today Resume coumadin at 2.5 mg ESRD Appears Euvolemic Nephrology on board Next HD tomorrow DM II Last A1C:7.1 in 11/14/17 Continue ISS, Lantus Monitor BGs Chronic Afib: Rate control INR 3.5 today Coumadin resumed today at 2.5 mg continue Metoprolol COPD On chronic Steroid On chronic oxygen supplement Continue Nebs, Inhalers No signs of exacerbation stable Chronic Right Sided CHF No signs of exacerbation Stable Hypothyroidism: continue Levothyroxine TSH WNL 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 Continue wound Care DVT Px; ON Coumadin INR 3.5 Code Status: Full code Current Inpatient Medications: Current Inpatient Medications Medications (Trade) Dose Ordered Sig/Tyrone Route Start Time Stop Time Status Last Admin Dose Admin Acetaminophen (Tylenol Tab) 650 mg Q4H PRN PO 12/15/17 15:30 01/14/18 15:29 Ondansetron HCl (Zofran Inj) 4 mg Q6H PRN IV 12/15/17 15:30 01/14/18 15:29 Ceftazidime/ Avibactam 0.94 gm/ Sodium Chloride 54.512 ml @ 25 mls/hr Q12H IV 12/15/17 16:00 12/25/17 15:59 12/16/17 16:16 25 MLS/HR Albuterol/ Ipratropium (Duoneb) 3 ml QIDR PRN INH 12/15/17 16:15 01/14/18 16:14 Ascorbic Acid (Vitamin C Tab) 500 mg BID PO 12/15/17 21:00 01/14/18 20:59 12/16/17 09:32 500 MG Atorvastatin Calcium (Lipitor Tab) 40 mg DAILY PO 12/16/17 09:00 01/15/18 08:59 12/16/17 09:33 40 MG Cyanocobalamin (Vitamin B-12 Tab) 1,000 mcg DAILY PO 12/16/17 09:00 01/15/18 08:59 12/16/17 09:33 1,000 MCG Docusate Sodium (coLACE CAP) 100 mg BID PO 12/15/17 21:00 01/14/18 20:59 12/16/17 09:32 100 MG Gabapentin (Neurontin Cap) 400 mg BID PO 12/15/17 21:00 01/14/18 20:59 12/16/17 09:32 400 MG Acetaminophen/ Hydrocodone Bitart ([place] 5/325 Tab) 1 tab Q6H PRN PO 12/15/17 16:15 12/29/17 16:14 12/16/17 12:16 1 TAB Levothyroxine Sodium (Synthroid Tab) 125 mcg DAILYBB PO 12/16/17 06:00 01/15/18 05:59 12/16/17 05:52 125 MCG Magnesium Oxide (Mag-Ox Tab) 400 mg BID PO 12/15/17 21:00 01/14/18 20:59 12/16/17 09:32 400 MG Metoprolol Succinate (Toprol Xl Tab) 25 mg DAILY PO 12/16/17 09:00 01/15/18 08:59 12/16/17 09:32 25 MG Prednisone (PredniSONE TAB) 5 mg DAILY PO 12/16/17 09:00 01/15/18 08:59 12/16/17 09:33 5 MG Sertraline HCl (Zoloft Tab) 100 mg DAILY PO 12/16/17 09:00 01/15/18 08:59 12/16/17 09:32 100 MG Tiotropium [place] (Spiriva Handihaler Inhaler) 1 puff DAILY INH 12/16/17 09:00 01/15/18 08:59 12/16/17 09:31 1 PUFF Warfarin Sodium (Coumadin Tab) 5 mg DAILY@1600 PO 12/16/17 16:00 01/15/18 15:59 Future Hold Glucose (Glucose 40% Gel) 15-30 GRAMS 15 GRAMS... UD PRN PO 12/15/17 16:45 01/14/18 16:44 Glucose (Glucose Chew Tab) 4-8 Tablets 4 Tabl... UD PRN PO 12/15/17 16:45 01/14/18 16:44 Dextrose (Dextrose 50% 50ML Syringe) 25-50ML OF 50% DW IV FOR... UD PRN IV 12/15/17 16:45 01/14/18 16:44 Glucagon (Glucagon Inj) 1 mg UD PRN SQ 12/15/17 16:45 01/14/18 16:44 Insulin Aspart (novoLOG ASPART) SLIDING SCALE If C... ACHS SC 12/15/17 17:15 01/14/18 17:14 12/16/17 13:21 4 UNITS Miscellaneous Information (Consult Glycemic Management Pharmacy) 1 ea UD PRN N/A 12/15/17 17:37 01/14/18 17:36 Sodium Chloride 1,000 ml @ 75 mls/hr [id number] IV 12/15/17 20:15 01/14/18 20:14 12/16/17 02:55 75 MLS/HR Insulin Glargine (Lantus Solostar Pen) 12 units HS SC 12/16/17 21:00 01/15/18 20:59
[2017-12-16] MEDS ORDERED: INSULIN GLARGINE SOLOSTAR 100 UNITS/ML 3 ML PEN SC SCH ×2 (21:00)
[2017-12-16 23:09] VITALS: BP 100/63; PULSE 75; TEMP 36.8; O2SAT 91
[2017-12-17] VITALS (20 sets, daily range): BP systolic 83–150; BP diastolic 40–68; PULSE 63–100; TEMP 36.3–36.8; O2SAT 91–95
[2017-12-17] MEDS: CEFTAZIDIME AVIBACTAM IV SCH ×2 (03:33→16:25)
[2017-12-17] MEDS: SODIUM CHLORIDE 0.9% IV SCH ×2 (03:33→16:25)
[2017-12-17] MEDS: LEVOTHYROXINE 125 MCG TAB PO SCH (05:23)
[2017-12-17 07:56] LABS: HEMATOCRIT 31.7 % (37-47); HEMOGLOBIN 9.8 g/dL (12.0-16.0); INR 2.7 (0.9-1.1); MEAN CELL VOLUME 85.7 fL (80-100); MEAN CORPUSCULAR HEMOGLOBIN 26.5 pg (25-34); MEAN CORPUSCULAR HGB CONC 30.9 g/dl (32-36); PLATELET COUNT 192 K/uL (130-400); RED CELL DISTRIBUTION WIDTH CV 20.5 % (11.5-14.5); RED CELL DISTRIBUTION WIDTH SD 64.3 fL (36.4-46.3); WHITE BLOOD COUNT 11.77 K/uL (4.8-10.8)
[2017-12-17] MEDS: INSULIN ASPART 100 UNITS/ML 3 ML PEN SC SCH ×4 (08:00→21:29)
[2017-12-17 08:36] LABS: CALCIUM 8.7 mg/dl (8.5-10.1); CREATININE 6.21 mg/dl (0.60-1.20); POTASSIUM 4.6 mmol/L (3.5-5.1)
[2017-12-17] MEDS ORDERED: EPOETIN ALFA 10,000 UNITS/ML VIAL IV. SCH (09:00)
[2017-12-17] MEDS: METOPROLOL SUCC 25MG EXT REL TAB PO SCH (09:00)
--- NOTE | 2017-12-17 09:25 | Dialysis Progress Note ---
Nephrology Dialysis Note Date of Service: Dec 17, 2017. Subjective 62 yo female seen on dialysis. pt feels good. good appetite. has wound vac and on iv antibiotics now. Objective Date Time Temp Pulse Resp B/P (MAP) Pulse Ox O2 Delivery O2 Flow Rate FiO2 12/17/17 07:08 36.5 70 17 104/65 (78) 95 Nasal Cannula 4.0 12/17/17 06:32 36.3 70 18 100/66 (77) 91 Nasal Cannula 4.0 12/16/17 23:45 Nasal Cannula 4.0 12/16/17 23:09 36.8 75 20 100/63 (75) 91 Nasal Cannula 4.0 12/16/17 16:00 94 Nasal Cannula 4.0 12/16/17 15:54 36.2 74 20 96/56 (69) 94 Nasal Cannula 4.0 Physical Exam: General-aaox3, obese Eyes-no scleral icterus ENT-mmm Neck-supple Lungs-decreased at bases Heart-distant heart sounds Abdomen-bs+ +pannus with wound vac in place Extremities-mild edema Neuro-nonfocal Current Inpatient Medications Medications (Trade) Dose Ordered Sig/Tyrone Route Start Time Stop Time Status Last Admin Dose Admin Acetaminophen (Tylenol Tab) 650 mg Q4H PRN PO 12/15/17 15:30 01/14/18 15:29 Ondansetron HCl (Zofran Inj) 4 mg Q6H PRN IV 12/15/17 15:30 01/14/18 15:29 Ceftazidime/ Avibactam 0.94 gm/ Sodium Chloride 54.512 ml @ 25 mls/hr Q12H IV 12/15/17 16:00 12/25/17 15:59 12/17/17 03:33 25 MLS/HR Albuterol/ Ipratropium (Duoneb) 3 ml QIDR PRN INH 12/15/17 16:15 01/14/18 16:14 Ascorbic Acid (Vitamin C Tab) 500 mg BID PO 12/15/17 21:00 01/14/18 20:59 12/16/17 20:53 500 MG Atorvastatin Calcium (Lipitor Tab) 40 mg DAILY PO 12/16/17 09:00 01/15/18 08:59 12/16/17 09:33 40 MG Cyanocobalamin (Vitamin B-12 Tab) 1,000 mcg DAILY PO 12/16/17 09:00 01/15/18 08:59 12/16/17 09:33 1,000 MCG Docusate Sodium (coLACE CAP) 100 mg BID PO 12/15/17 21:00 01/14/18 20:59 12/16/17 09:32 100 MG Gabapentin (Neurontin Cap) 400 mg BID PO 12/15/17 21:00 01/14/18 20:59 12/16/17 20:54 400 MG Acetaminophen/ Hydrocodone Bitart ([place] 5/325 Tab) 1 tab Q6H PRN PO 12/15/17 16:15 12/29/17 16:14 12/16/17 21:07 1 TAB Levothyroxine Sodium (Synthroid Tab) 125 mcg DAILYBB PO 12/16/17 06:00 01/15/18 05:59 12/17/17 05:23 125 MCG Magnesium Oxide (Mag-Ox Tab) 400 mg BID PO 12/15/17 21:00 01/14/18 20:59 12/16/17 20:53 400 MG Metoprolol Succinate (Toprol Xl Tab) 25 mg DAILY PO 12/16/17 09:00 01/15/18 08:59 12/16/17 09:32 25 MG Prednisone (PredniSONE TAB) 5 mg DAILY PO 12/16/17 09:00 01/15/18 08:59 12/16/17 09:33 5 MG Sertraline HCl (Zoloft Tab) 100 mg DAILY PO 12/16/17 09:00 01/15/18 08:59 12/16/17 09:32 100 MG Tiotropium [place] (Spiriva Handihaler Inhaler) 1 puff DAILY INH 12/16/17 09:00 01/15/18 08:59 12/16/17 09:31 1 PUFF Warfarin Sodium (Coumadin Tab) 5 mg DAILY@1600 PO 12/16/17 16:00 01/15/18 15:59 Future Hold Glucose (Glucose 40% Gel) 15-30 GRAMS 15 GRAMS... UD PRN PO 12/15/17 16:45 01/14/18 16:44 Glucose (Glucose Chew Tab) 4-8 Tablets 4 Tabl... UD PRN PO 12/15/17 16:45 01/14/18 16:44 Dextrose (Dextrose 50% 50ML Syringe) 25-50ML OF 50% DW IV FOR... UD PRN IV 12/15/17 16:45 01/14/18 16:44 Glucagon (Glucagon Inj) 1 mg UD PRN SQ 12/15/17 16:45 01/14/18 16:44 Insulin Aspart (novoLOG ASPART) SLIDING SCALE If C... ACHS SC 12/15/17 17:15 01/14/18 17:14 12/16/17 21:02 2 UNITS Miscellaneous Information (Consult Glycemic Management Pharmacy) 1 ea UD PRN N/A 12/15/17 17:37 01/14/18 17:36 Sodium Chloride 1,000 ml @ 75 mls/hr [id number] IV 12/15/17 20:15 01/14/18 20:14 12/16/17 21:05 75 MLS/HR Insulin Glargine (Lantus Solostar Pen) 12 units HS SC 12/16/17 21:00 01/15/18 20:59 12/16/17 21:04 12 UNITS Warfarin Sodium (Coumadin Tab) 2.5 mg DAILY@16 PO 12/17/17 16:00 01/16/18 15:59 Epoetin Faisal (Procrit Inj) 10,000 units 0900 IV. 12/17/17 09:00 12/17/17 14:00 Last 24 Hours Test 12/16/17 11:29 12/16/17 17:26 12/16/17 20:35 12/17/17 07:28 Bedside Glucose 112 mg/dl 176 mg/dl 197 mg/dl White Blood Count 11.77 K/uL Red Blood Count 3.70 M/uL Hemoglobin 9.8 g/dL Hematocrit 31.7 % Mean Corpuscular Volume 85.7 fL Mean Corpuscular Hemoglobin 26.5 pg Mean Corpuscular Hemoglobin Concent 30.9 g/dl RDW Standard Deviation 64.3 fL RDW Coefficient of Variation 20.5 % Platelet Count 192 K/uL Mean Platelet Volume 9.0 fL Prothrombin Time 27.6 SECONDS Prothromb Time International Ratio 2.7 Sodium Level 133 mmol/L Potassium Level 4.6 mmol/L Chloride Level 102 mmol/L Carbon Dioxide Level 20 mmol/L Anion Gap 11.0 mmol/L Blood Urea Nitrogen 48 mg/dl Creatinine 6.21 mg/dl Est Creatinine Clear Calc Drug Dose 10.5 ml/min Estimated GFR () 7.6 Estimated GFR (Non- 6.6 BUN/Creatinine Ratio 7.7 Random Glucose 104 mg/dl Calcium Level 8.7 mg/dl Test 12/17/17 08:06 12/17/17 08:18 Bedside Glucose 102 mg/dl Assessment & Plan ESRD-seen on dialysis. no fluid removal given low blood pressures although pressures appear improved today compared to yesterday. since no fluid removal and better blood pressure readings, will stop the iv fluids. goal systolic off dialysis in the high 90s to low 100s. keep systolic above 80 on dialysis.
[2017-12-17] MEDS: TIOTROPIUM BROMIDE 5 PUFF/90 MCG INH INH SCH (09:39)
[2017-12-17] MEDS: ATORVASTATIN 40 MG TAB PO SCH (13:21)
[2017-12-17] MEDS: DOCUSATE SODIUM 100 MG CAP PO SCH ×2 (13:21→21:00)
[2017-12-17] MEDS: ASCORBIC ACID 500 MG TAB PO SCH ×2 (13:21→21:24)
[2017-12-17] MEDS: MAGNESIUM OXIDE 400 MG TAB PO SCH ×2 (13:21→21:23)
[2017-12-17] MEDS: CYANOCOBALAMIN 500 MCG TAB (VIT B-12) PO SCH (13:22)
[2017-12-17] MEDS: SERTRALINE HCL 100 MG TAB PO SCH (13:22)
[2017-12-17] MEDS: GABAPENTIN 400 MG CAP PO SCH ×2 (13:22→21:24)
--- NOTE | 2017-12-17 13:31 | Pharmacy Progress Note ---
Glycemic Control Progress Note Date of Service Dec 17, 2017. Scope Glycemic Pharmacist consulted for glycemic control to write orders per [facility] inpatient glycemic control protocol. Objective Accuchecks BSG (last 24hrs): Test 12/16/17 17:26 12/16/17 20:35 12/17/17 07:28 12/17/17 08:18 Bedside Glucose 176 mg/dl (70-90) 197 mg/dl (70-90) 102 mg/dl (70-90) Random Glucose 104 mg/dl (70-99) Test 12/17/17 12:05 Bedside Glucose 84 mg/dl (70-90) Recent Pertinent Medications The patient is currently receiving: * Basal insulin: Lantus 12 units every 24 hours * Correctional Insulin: Novolog Correction per scale ACHS Goal Range: Low 110 mg/dL - High 140 mg/dL Correction Factor: 30 mg/dL/unit * Prandial insulin: Per carb ratio of 1 unit per 10 grams CHO consumed Outpatient Anti-Diabetic Meds HbA1c * Patient's A1c = this result is likely somewhat unreliable in ESRD patients d/ t interactions between the A1c analyzing technique and high levels of urea in ESRD, reduced RBC life span, iron deficiency anemia, and EPO administration. HbA1c > 7.5% in ESRD patient may overestimate the extent of hyperglycemia in ESRD patients. Assessment & Plan ASSESSMENT: * See progress note from 12/17/17 for more background info, in short: * Pt receiving SQ basal bolus insulin regimen for hyperglycemia secondary to baseline DM (outpatient regimen on hold),stress/infection * Patient is currently receiving an average of 32 units of insulin per day * 12 units of basal insulin * 20 units of prandial/correctional insulin * BSGs over the past 24hrs: 99, 112, 176, 197 * Changes needed to insulin regimen: * AM Fasting BSG = 102 mg/dl. This is at goal range for patient based on inpatient targets and co-morbidities, however BSG is trending downward throughout the day despite no bolus insulin being administered. I will decrease basal insulin 16% to avoid hypoglycemia. * Post-prandial BSGs rise throughout the day therefore need to tighten CF/CR. PLAN FOR INPATIENT GLYCEMIC CONTROL: * Basal insulin - decrease * Lantus 10 units SQ daily * Bolus insulin - tighten * NovoLog per scale ACHS or Q6hrs while NPO * Goal Range: Low 110 mg/dL - High 140 mg/dL * Correction Factor: 25 mg/dL/unit * Nutritional / Prandial insulin per carb ratio of 1 unit per 8 grams CHO consumed RECOMMENDATIONS FOR DISCHARGE: * Patient has demonstrated reasonable glycemic control this admission * If patient does not report frequent hypo- or hyperglycemia at home, recommend resuming outpatient regimen on discharge and titrate doses per PCP. Thank you.
--- NOTE | 2017-12-17 14:06 | Progress Note ---
Subjective Date of Service: Dec 17, 2017. Subjective pt ambulating in room s/p hd. afebrile. tolerating abx. blood cultures remain negative, tolerating vac. Problem List Medical Problems: (1) Acute exacerbation of CHF (congestive heart failure) Status: Acute (2) Acute hemorrhage Status: Acute (3) FRED (acute kidney injury) Status: Acute (4) Anemia Status: Acute (5) CHF (congestive heart failure) Status: Acute (6) Congestive heart failure Status: Acute (7) Congestive heart failure Status: Acute (8) Congestive heart failure Status: Acute (9) COPD exacerbation Status: Acute (10) End-stage renal disease on hemodialysis Status: Acute (11) Fluid overload Status: Acute (12) Hypoxia Status: Acute (13) Hypoxia Status: Acute (14) Leukocytosis Status: Acute (15) Leukocytosis Status: Acute (16) Low grade fever Status: Acute (17) Low grade fever Status: Acute (18) Pleural effusion, right Status: Acute (19) Pressure ulcer Status: Acute (20) Rapid atrial fibrillation Status: Acute (21) Rapid atrial fibrillation Status: Acute (22) Renal insufficiency Status: Acute (23) Respiratory failure Status: Acute (24) Sepsis Status: Acute (25) Sepsis Status: Acute (26) Sepsis associated hypotension Status: Acute (27) Severe sepsis with acute organ dysfunction Status: Acute (28) Shortness of breath Status: Acute (29) Supratherapeutic INR Status: Acute Objective Vital Signs Date Time Temp Pulse Resp B/P (MAP) Pulse Ox O2 Delivery O2 Flow Rate FiO2 12/17/17 11:58 36.8 74 109/53 (71) 12/17/17 11:55 74 109/53 12/17/17 11:45 79 102/49 12/17/17 11:33 80 104/52 12/17/17 11:15 81 106/49 12/17/17 11:00 78 110/56 12/17/17 10:45 78 108/53 12/17/17 10:30 81 110/61 12/17/17 10:15 81 133/64 12/17/17 10:00 79 88/46 12/17/17 09:45 82 102/46 12/17/17 09:30 63 123/40 12/17/17 09:15 76 102/55 12/17/17 09:00 71 150/44 4/4/18 08:54 72 98/49 12/17/17 08:53 36.5 72 98/49 (65) 12/17/17 07:15 Nasal Cannula 4.0 12/17/17 07:08 36.5 70 17 104/65 (78) 95 Nasal Cannula 4.0 12/17/17 06:32 36.3 70 18 100/66 (77) 91 Nasal Cannula 4.0 12/16/17 23:45 Nasal Cannula 4.0 12/16/17 23:09 36.8 75 20 100/63 (75) 91 Nasal Cannula 4.0 12/16/17 16:00 94 Nasal Cannula 4.0 12/16/17 15:54 36.2 74 20 96/56 (69) 94 Nasal Cannula 4.0 Physical Exam General Appearance: WD/WN Neck: supple Respiratory/Chest: normal breath sounds, no respiratory distress Abdomen: + pertinent finding (wound vac right abd wall) Extremities: + pedal edema Neurologic/Psychiatric: alert Skin: normal color Laboratory Results Item Value Date Time Blood Culture - Preliminary Resulted 12/15/17 1624 Blood NO GROWTH TO DATE. Blood Culture - Preliminary Resulted 12/15/17 1609 Blood NO GROWTH TO DATE. Last 24 Hours Test 12/16/17 17:26 12/16/17 20:35 12/17/17 07:28 12/17/17 08:18 Bedside Glucose 176 mg/dl 197 mg/dl 102 mg/dl White Blood Count 11.77 K/uL Red Blood Count 3.70 M/uL Hemoglobin 9.8 g/dL Hematocrit 31.7 % Mean Corpuscular Volume 85.7 fL Mean Corpuscular Hemoglobin 26.5 pg Mean Corpuscular Hemoglobin Concent 30.9 g/dl RDW Standard Deviation 64.3 fL RDW Coefficient of Variation 20.5 % Platelet Count 192 K/uL Mean Platelet Volume 9.0 fL Prothrombin Time 27.6 SECONDS Prothromb Time International Ratio 2.7 Sodium Level 133 mmol/L Potassium Level 4.6 mmol/L Chloride Level 102 mmol/L Carbon Dioxide Level 20 mmol/L Anion Gap 11.0 mmol/L Blood Urea Nitrogen 48 mg/dl Creatinine 6.21 mg/dl Est Creatinine Clear Calc Drug Dose 10.5 ml/min Estimated GFR () 7.6 Estimated GFR (Non- 6.6 BUN/Creatinine Ratio 7.7 Random Glucose 104 mg/dl Calcium Level 8.7 mg/dl Test 12/17/17 09:00 12/17/17 12:05 Hepatitis B Surface Antigen NEG Hepatitis B Surface Antibody NEG Bedside Glucose 84 mg/dl Assessment and Plan (1) Wound of abdomen Assessment & Plan: continue avycaz at current dose, will need min 14 days. can follow in wound center post d/c and can extend if needed.
[2017-12-17] MEDS ORDERED: WARFARIN SOD 2.5 MG TAB PO SCH (16:00)
--- NOTE | 2017-12-17 17:48 | Progress Note ---
Internal Med Progress Note Date of Service: Dec 17, 2017. Provider Documentation: SUBJECTIVE: Patient sitting on chair Had dialysis earlier today, no complaint of chest discomfort Or shortness of breath No fever or chills Has a wound VAC placed once the vessels in the future if you want to history this lady OBJECTIVE: Vital Signs-as noted below Exam: General-chronically ill-appearing, no sign of distress, pleasant Eyes-sclera nonicteric ENT-moist oral mucosa Neck-no JVD Lungs-diminished, rales noted on the right base Heart-regular S1-S2 Abdomen-wound VAC on right lower abdomen wall Extremities-+2 bilateral lower extremity edema, with chronic venous stasis change Has 2 shallow wounds on both bilateral lower extremity below the knee bandage present, no active drainage noted Neuro-alert awake oriented 3, no focal neurological deficit Lab data as noted below. ASSESSMENT & PLAN: INFECTED RIGHT ABDOMINAL WOUND: -Wound culture on 12/01/2017: Shows Klebsiella pneumoniae with [id number]/[id number] Resistant to all oral and IV antibiotics including carbapenems Sensitive to tigecycline and amikacin appreciate input form Dr Whittaker D/W Dr Mcduffie patient had a life-threatening Allergic reaction to tigecycline due to dialysis treatment adequate level for Amikacin will be difficult to maintain Patient is continued on Avycaz/combination of Ceftadizime and Avibactum getting 0.94 gm ( renally dosed ) Q 12 Ist day of treatment 12/15/17 Per ID : will need total 14 days of treatment Wound vac placed pt will need PICC line placement for long tem Abx wants to return home with home Abx , refuses rehab D/w Dr Houston -pt is a high risk for line infection with PICC line also placing PICC line precules pt for future vascular access for Fistula but given the circumstances as there is no other alternative PICC line ordered social service followng to arrange for home IV Abx Patient will continue-to be followed at the wound clinic END-STAGE RENAL DISEASE ON DIALYSIS -Stable volume status and electrolytes -Gets dialysis Friday at [facility] -Getting scheduled dialysis while in hospital Follows with [facility] neph[facility] ELEVATED INR: INR 2.3 today Coumadin resumed TYPE 2 DIABETES: Insulin sliding scale Appreciate pharmacy input for glycemic management CHRONIC A. FIB: Continue metoprolol On Coumadin for chronic anticoagulation COPD: Advanced disease, with chronic hypoxic respiratory failure on 4 L oxygen at home Respiratory status to approximate baseline Continue nebulizer treatment Patient is on chronic oral prednisone CHRONIC RIGHT-SIDED HEART FAILURE/COR PULMONALE Due to advanced COPD Volume status stable Continue routine dialysis HYPOTHYROIDISM On levothyroxine TSH level within normal limit CHRONIC MULTIPLE STAGE III PRESSURE ULCERS ON EXTREMITIES: Present on admission Wound care consulted CODE STATUS: Full code DVT PROPHYLAXIS ON Coumadin DISPOSITION Patient was recommended to go to rehab, For IV antibiotics and wound VAC She insists in returning to home Her daughter lives close by and will be able to help for with the IV antibiotics Home health visiting nurse for the wound VAC management Patient also follows at the wound clinic Vital Signs: Date Time Temp Pulse Resp B/P (MAP) Pulse Ox O2 Delivery O2 Flow Rate FiO2 12/18/17 07:20 36.7 74 16 103/69 (80) 93 Nasal Cannula 4.0 12/18/17 00:00 Nasal Cannula 4.0 12/17/17 23:47 36.7 85 20 83/53 (63) 91 Nasal Cannula 4.0 12/17/17 16:30 Nasal Cannula 4.0 Humidified Oxygen 12/17/17 14:59 36.4 100 18 103/68 (80) 92 Nasal Cannula 4.0 12/17/17 11:58 36.8 74 109/53 (71) 12/17/17 11:55 74 109/53 12/17/17 11:45 79 102/49 12/17/17 11:33 80 104/52 12/17/17 11:15 81 106/49 12/17/17 11:00 78 110/56 12/17/17 10:45 78 108/53 12/17/17 10:30 81 110/61 12/17/17 10:15 81 133/64 12/17/17 10:00 79 88/46 12/17/17 09:45 82 102/46 12/17/17 09:30 63 123/40 12/17/17 09:15 76 102/55 Lab Results: Results Past 24 Hours Test 12/17/17 12:05 12/17/17 17:37 12/17/17 20:27 12/18/17 06:03 Range/Units Bedside Glucose 84 123 217 70-90 mg/dl White Blood Count 11.86 4.8-10.8 K/uL Red Blood Count 3.76 4.2-5.4 M/uL Hemoglobin 9.9 12.0-16.0 g/dL Hematocrit 32.8 37-47 % Mean Corpuscular Volume 87.2 80-100 fL Mean Corpuscular Hemoglobin 26.3 25-34 pg Mean Corpuscular Hemoglobin Concent 30.2 32-36 g/dl RDW Standard Deviation 63.6 36.4-46.3 fL RDW Coefficient of Variation 20.1 11.5-14.5 % Platelet Count 172 130-400 K/uL Mean Platelet Volume 8.8 7.4-10.4 fL Prothrombin Time 23.4 9.0-12.0 SECONDS Prothromb Time International Ratio 2.3 0.9-1.1 Sodium Level 134 136-145 mmol/L Potassium Level 4.6 3.5-5.1 mmol/L Chloride Level 101 98-107 mmol/L Carbon Dioxide Level 24 21-32 mmol/L Anion Gap 9.0 3-11 mmol/L Blood Urea Nitrogen 31 7-18 mg/dl Creatinine 4.85 0.60-1.20 mg/dl Est Creatinine Clear Calc Drug Dose 13.9 ml/min Estimated GFR () 10.3 Estimated GFR (Non- 8.9 BUN/Creatinine Ratio 6.5 10-20 Random Glucose 119 70-99 mg/dl Calcium Level 8.7 8.5-10.1 mg/dl Magnesium Level 2.5 1.8-2.4 mg/dl Test 12/18/17 07:57 Range/Units Bedside Glucose 111 70-90 mg/dl
[2017-12-17] MEDS: INSULIN GLARGINE SOLOSTAR 100 UNITS/ML 3 ML PEN SC SCH (21:30)
[2017-12-17] MEDS: HYDROCODONE/ACETAMIN 5/325MG TAB PO PRN (21:36)
[2017-12-18] MEDS: SODIUM CHLORIDE 0.9% IV SCH ×2 (04:37→19:56)
[2017-12-18] MEDS: CEFTAZIDIME AVIBACTAM IV SCH ×2 (04:37→19:56)
[2017-12-18] MEDS: LEVOTHYROXINE 125 MCG TAB PO SCH (05:27)
[2017-12-18 06:21] LABS: HEMATOCRIT 32.8 % (37-47); HEMOGLOBIN 9.9 g/dL (12.0-16.0); MEAN CELL VOLUME 87.2 fL (80-100); MEAN CORPUSCULAR HEMOGLOBIN 26.3 pg (25-34); MEAN CORPUSCULAR HGB CONC 30.2 g/dl (32-36); MEAN PLATELET VOLUME 8.8 fL (7.4-10.4); PLATELET COUNT 172 K/uL (130-400); RED CELL DISTRIBUTION WIDTH CV 20.1 % (11.5-14.5); RED CELL DISTRIBUTION WIDTH SD 63.6 fL (36.4-46.3); WHITE BLOOD COUNT 11.86 K/uL (4.8-10.8)
[2017-12-18 06:31] LABS: INR 2.3 (0.9-1.1)
[2017-12-18 06:57] LABS: CALCIUM 8.7 mg/dl (8.5-10.1); CREATININE 4.85 mg/dl (0.60-1.20); POTASSIUM 4.6 mmol/L (3.5-5.1)
[2017-12-18 07:20] VITALS: BP 103/69; PULSE 74; TEMP 36.7; O2SAT 93
[2017-12-18] MEDS ORDERED: [UNRECOGNIZED DRUG - CODE] IV ×2 (09:13→10:35)
[2017-12-18] MEDS: DOCUSATE SODIUM 100 MG CAP PO SCH ×2 (09:18→21:00)
[2017-12-18] MEDS: SERTRALINE HCL 100 MG TAB PO SCH (09:18)
[2017-12-18] MEDS: ATORVASTATIN 40 MG TAB PO SCH (09:18)
[2017-12-18] MEDS: GABAPENTIN 400 MG CAP PO SCH ×2 (09:19→21:33)
[2017-12-18] MEDS: CYANOCOBALAMIN 500 MCG TAB (VIT B-12) PO SCH (09:19)
[2017-12-18] MEDS: ASCORBIC ACID 500 MG TAB PO SCH ×2 (09:19→21:33)
[2017-12-18] MEDS: MAGNESIUM OXIDE 400 MG TAB PO SCH ×2 (09:19→21:33)
[2017-12-18] MEDS: METOPROLOL SUCC 25MG EXT REL TAB PO SCH (09:19)
[2017-12-18] MEDS: TIOTROPIUM BROMIDE 5 PUFF/90 MCG INH INH SCH (09:19)
[2017-12-18] MEDS: HYDROCODONE/ACETAMIN 5/325MG TAB PO PRN ×2 (09:20→21:34)
[2017-12-18] MEDS: INSULIN ASPART 100 UNITS/ML 3 ML PEN SC SCH ×4 (09:23→21:31)
--- NOTE | 2017-12-18 09:55 | Pharmacy Progress Note ---
Glycemic Control Progress Note Date of Service Dec 18, 2017. Scope Glycemic Pharmacist consulted for glycemic control to write orders per [facility] inpatient glycemic control protocol. Objective Accuchecks BSG (last 24hrs): Test 12/17/17 12:05 12/17/17 17:37 12/17/17 20:27 12/18/17 06:03 Bedside Glucose 84 mg/dl (70-90) 123 mg/dl (70-90) 217 mg/dl (70-90) Random Glucose 119 mg/dl (70-99) Test 12/18/17 07:57 Bedside Glucose 111 mg/dl (70-90) Recent Pertinent Medications The patient is currently receiving: * Basal insulin: Lantus 10 units every 24 hours in the evening * Correctional Insulin: Novolog Correction per scale ACHS Goal Range: Low 110 mg/dL - High 140 mg/dL Correction Factor: 25 mg/dL/unit * Prandial insulin: Per carb ratio of 1 unit per 8 grams CHO consumed Outpatient Anti-Diabetic Meds Lantus 30 units at bedtime plus Novolog Assessment & Plan ASSESSMENT: * See progress note from 12/16/17 for more background info, in short: * Pt receiving SQ basal bolus insulin regimen for hyperglycemia secondary to baseline DM (outpatient regimen on hold), infected abdominal wound receiving Avycaz, and on home prednisone 5 mg daily. * Patient is currently receiving an average of 22 units of insulin per day * 10 units of basal insulin * 12 units of prandial/correctional insulin * BSGs ranging 84 - 217 mg/dl over the past 24hrs * Changes needed to insulin regimen: * AM Fasting BSG = 119 mg/dl. This is in goal range for patient based on inpatient targets and co-morbidities. Therefore Basal insulin will be continued at slightly reduced rate. Based upon previous hospitalizations this is the lowest basal the patient requires. Since patient will be NPO for OR on Friday did reduce slightly to 8 units in preparation for this procedure. * Post-prandial BSGs rise throughout the day therefore need to tighten CR slightly. Tightened based upon previous data which demonstrates that carbohydrate ratio of 1 gram per 7 carbohydrates works well. * Total daily dose = ~25 units. This dosing is yielding adequate glycemic control so continue. PLAN FOR INPATIENT GLYCEMIC CONTROL: * Continuing Lantus 10 units SQ HS (give 8 units tonight since patient will be NPO Friday) * Continuing correction factor of 25 mg/dl/unit * TIGHTENING carb ratio to 1 unit per 7 grams CHO consumed * Continuing goal range to Low 110 mg/dL - High 140 mg/dL RECOMMENDATIONS FOR DISCHARGE: * Patient receives hemodialysis so HbA1C does not accurately reflect patient's true glycemic control. Recommend monitoring blood glucose via logs and titrating as appropriate. Thank you.
--- NOTE | 2017-12-18 13:14 | Progress Note ---
Progress Note Date of Service Dec 18, 2017. Progress Note Pt Will benefit from Vang line placement for poor vascular access/long-term antibiotic treatment Past vascular surgery Dr. Ziegler consulted Case discussed with Trini Neil vascular PA Patient will be evaluated by the vascular team tomorrow morning ordered for n.p.o. past midnight hold Coumadin today INR 2.3 Repeat INR tomorrow morning canceled ICU consult JAC line placement
--- NOTE | 2017-12-18 14:02 | Progress Note ---
Subjective Date of Service: Dec 18, 2017. Subjective Pt evaluation today including: conversation w/ patient, physical exam, chart review, lab review pt oob to chair on my exam, vac in place. min pain, overall feeling better. asking to go home. no f/c. blood cultures negative to date. all remaining ros reviewed and are negative. Problem List Medical Problems: (1) Acute exacerbation of CHF (congestive heart failure) Status: Acute (2) Acute hemorrhage Status: Acute (3) FRED (acute kidney injury) Status: Acute (4) Anemia Status: Acute (5) CHF (congestive heart failure) Status: Acute (6) Congestive heart failure Status: Acute (7) Congestive heart failure Status: Acute (8) Congestive heart failure Status: Acute (9) COPD exacerbation Status: Acute (10) End-stage renal disease on hemodialysis Status: Acute (11) Fluid overload Status: Acute (12) Hypoxia Status: Acute (13) Hypoxia Status: Acute (14) Leukocytosis Status: Acute (15) Leukocytosis Status: Acute (16) Low grade fever Status: Acute (17) Low grade fever Status: Acute (18) Pleural effusion, right Status: Acute (19) Pressure ulcer Status: Acute (20) Rapid atrial fibrillation Status: Acute (21) Rapid atrial fibrillation Status: Acute (22) Renal insufficiency Status: Acute (23) Respiratory failure Status: Acute (24) Sepsis Status: Acute (25) Sepsis Status: Acute (26) Sepsis associated hypotension Status: Acute (27) Severe sepsis with acute organ dysfunction Status: Acute (28) Shortness of breath Status: Acute (29) Supratherapeutic INR Status: Acute Objective Vital Signs Date Time Temp Pulse Resp B/P (MAP) Pulse Ox O2 Delivery O2 Flow Rate FiO2 12/18/17 12:15 Nasal Cannula 4.0 Humidified Oxygen 12/18/17 07:45 Nasal Cannula 4.0 Humidified Oxygen 12/18/17 07:20 36.7 74 16 103/69 (80) 93 Nasal Cannula 4.0 12/18/17 00:00 Nasal Cannula 4.0 12/17/17 23:47 36.7 85 20 83/53 (63) 91 Nasal Cannula 4.0 12/17/17 16:30 Nasal Cannula 4.0 Humidified Oxygen 12/17/17 14:59 36.4 100 18 103/68 (80) 92 Nasal Cannula 4.0 Physical Exam General Appearance: WD/WN, no apparent distress Eyes: normal inspection, EOMI Neck: supple Respiratory/Chest: lungs clear, normal breath sounds, no respiratory distress Cardiovascular: regular rate, rhythm Abdomen: soft Extremities: non-tender Neurologic/Psychiatric: alert Skin: normal color Laboratory Results Last 24 Hours Test 12/17/17 17:37 12/17/17 20:27 12/18/17 06:03 12/18/17 07:57 Bedside Glucose 123 mg/dl 217 mg/dl 111 mg/dl White Blood Count 11.86 K/uL Red Blood Count 3.76 M/uL Hemoglobin 9.9 g/dL Hematocrit 32.8 % Mean Corpuscular Volume 87.2 fL Mean Corpuscular Hemoglobin 26.3 pg Mean Corpuscular Hemoglobin Concent 30.2 g/dl RDW Standard Deviation 63.6 fL RDW Coefficient of Variation 20.1 % Platelet Count 172 K/uL Mean Platelet Volume 8.8 fL Prothrombin Time 23.4 SECONDS Prothromb Time International Ratio 2.3 Sodium Level 134 mmol/L Potassium Level 4.6 mmol/L Chloride Level 101 mmol/L Carbon Dioxide Level 24 mmol/L Anion Gap 9.0 mmol/L Blood Urea Nitrogen 31 mg/dl Creatinine 4.85 mg/dl Est Creatinine Clear Calc Drug Dose 13.9 ml/min Estimated GFR () 10.3 Estimated GFR (Non- 8.9 BUN/Creatinine Ratio 6.5 Random Glucose 119 mg/dl Calcium Level 8.7 mg/dl Magnesium Level 2.5 mg/dl Assessment and Plan (1) Wound of abdomen Assessment & Plan: will continue with avycaz. no alternative options available. wound culture from wound center growing k. pneumonia - cre, only sensitive to amikacin and tigecycline. has responded well to avycaz in past for hip wound (now healed). With HD and inability to check amikacin levels would avoid this due to risk of ototoxicity. She has had allergic reaction and pancreatitis due to tigecycline in past. options are severely limited. She is to have vascular eval for placement of cath. She will be followed closely in wound center post d/c.
[2017-12-18 16:37] VITALS: BP 100/41; PULSE 76; TEMP 36.5; O2SAT 92
[2017-12-18] MEDS ORDERED: INSULIN GLARGINE SOLOSTAR 100 UNITS/ML 3 ML PEN SC SCH (21:00)
[2017-12-18 23:17] VITALS: BP 109/65; PULSE 77; TEMP 36.9; O2SAT 94
[2017-12-19] VITALS (20 sets, daily range): BP systolic 72–114; BP diastolic 42–71; PULSE 66–99; TEMP 36.2–37.4; O2SAT 89–93
[2017-12-19] MEDS ORDERED: NURSING VERBAL MED ORDER ONE ×3 (00:30→14:30)
[2017-12-19] MEDS: LEVOTHYROXINE 125 MCG TAB PO SCH (05:57)
[2017-12-19] MEDS: INSULIN ASPART 100 UNITS/ML 3 ML PEN SC SCH ×4 (05:57→21:18)
--- NOTE | 2017-12-19 06:12 | Surgery Consultation ---
Consultation Date of Service Dec 18, 2017. Chief Complaint Lack of IV access History of Present Illness The patient is a 62 year old female who presented with an abdominal wall infection. 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 She has a right sided permcath in place. Vang catheter was recommended. Vitals Vital Signs Past 12 Hours Date Time Temp Pulse Resp B/P (MAP) Pulse Ox O2 Delivery O2 Flow Rate FiO2 12/18/17 23:17 36.9 77 20 109/65 (80) 94 Nasal Cannula 4.0 12/18/17 20:09 Nasal Cannula 4.0 Humidified Oxygen Allergies Coded Allergies: Bacitracin (Verified Allergy, Intermediate, RASH,ITCH, 06/29/17) Celecoxib (Verified Allergy, Intermediate, RASH TO SULFA DRUGS, 06/29/17) Neomycin (Verified Allergy, Intermediate, RASH,ITCH, 06/29/17) Polymyxin B (Verified Allergy, Intermediate, RASH,ITCH, 06/29/17) Sulfa Antibiotics (Verified Allergy, Intermediate, RASH,HAS TAKEN GLIPIZIDE W/O REACTION, 06/29/17) Tigecycline (Verified Adverse Reaction, Severe, MILD PANCREATITIS, ) 61 yo F placed on IV tigecycline for wound infection, after 5-6 days developed decreased appetite, had nonspecific abdominal pain from admission and was refusing to lie back for daily abd assessments because of pain in other areas of abdomen. Decreased appetite persisted, also in context of worsening depression and stated apathy, WBC continued to increase, CT chest revealed n/s changes possibly consistent with mild pancreatitis, lipase drawn and elevated, other causes ruled out, clinical pancreatitis on exam. Diruretics/albumin stopped to avoid further rehydration, tigecycline discontinued, continuing supportive care. Codeine (Verified Adverse Reaction, Intermediate, GI UPSET, 06/29/17) Home Medications Scheduled Ascorbic Acid (Vitamin C), 500 MG PO BID Aspirin (Aspirin Ec), 81 MG PO DAILY Atorvastatin (Lipitor), 40 MG PO DAILY B-Complex W/ C & Folic Acid (Renal Vitamin 0.8 mg), 1 TAB PO DAILY Calcitriol (Rocaltrol Cap), 0.25 MCG PO UD Cefdinir (Omnicef), 300 MG PO Q2D Ceftazidime-Avibactam Sodium (Avycaz 2-0.5 gm), 0.94 GM IV Q12 Cholecalciferol (Vitamin D3), 1 CAP PO DAILY Ciprofloxacin Tab (Cipro), 750 MG PO BID Collagenase (Santyl), 1 APPLN TOP UD Cyanocobalamin (Vitamin B-12), 1,000 MCG PO DAILY Docusate Sodium (Colace), 1 CAP PO BID Gabapentin (Neurontin), 400 MG PO BID Home O2 Therapy (Oxygen), 4 LITERS NA CONTINOUS Insulin Aspart (Novolog), Unknown Dose SC AC Insulin Glargine (Lantus Solostar), 30 UNITS SC HS Levothyroxine Sodium (Synthroid), 125 MCG PO DAILY Magnesium Oxide (Mag-Ox), 400 MG PO BID Metoprolol Succ (Toprol Xl) (Toprol-Xl), 25 MG PO DAILY Pantoprazole (Protonix), 20 MG PO DAILY Prednisone (Prednisone), 10 MG PO DAILY Sertraline (Zoloft), 100 MG PO DAILY Tiotropium [place] (Spiriva Handihaler), 1 CAP INH DAILY Warfarin Sodium (Coumadin), 5 MG PO 5XWK Warfarin Sodium (Coumadin), 2.5 TAB PO 2XWK Scheduled PRN Hydrocodone/Acetaminophen 5MG/325MG ([place] 5MG/325MG), 1 TABLET PO Q6H PRN for Pain Problem List Medical Problems: (1) Atrial fibrillation (2) Chronic respiratory failure with hypoxia (3) chronic wound (4) COPD (chronic obstructive pulmonary disease) (5) Depression (6) DM type 2 (diabetes mellitus, type 2) (7) ESRD (end stage renal disease) on dialysis (8) HLD (hyperlipidemia) (9) HTN (hypertension) (10) Hypothyroidism (11) Neuropathy (12) Open abdominal wall wound (13) Pulmonary HTN (14) RHF (right heart failure) (15) Shortness of breath (16) Wound of abdomen Surgical Problems: (1) S/P cholecystectomy (2) S/P debridement Surgical / Medical History Hx Cardiac Surgery: No Hx Abdominal Surgery: Yes (gallbladder) Hx Cancer Surgery: No Hx Thoracic Surgery: No Hx Orthopedic: No Hx Urinary Tract Surgery: No HX Other Surgery: No Past Medical/Surgical History: CHF, Diabetes, Heart Disease, Kidney Disease Family History Diabetes mellitus MOTHER FH: brain cancer FATHER FH: heart disease MOTHER Social History Smoking Status: Former Smoker Hx Tobacco Use In Past Year?: No Hx Alcohol Use - Type & Amnt: No Hx Substance Use -Type & Amnt: No Review of Systems Respiratory: No cough, No cyanosis, No NAVARRO, No hemoptysis, No orthopnea, No PND , No short of breath, No sputum production, No stridor, No wheezing, No dyspnea , No problem reported Cardiovascular: No chest pain, No chest tightness, No chest pressure, No palpitations, No syncope, No diaphoresis, No edema, No intermittent claudication , No orthopnea, No cyanosis, No mumur, No lightheadedness, No paroxysmal nocturnal dyspnea, No problem reported Gastrointestinal: No abdominal pain, No constipation, No diarrhea, No nausea, No vomiting, No anorexia, No appetite changes, No belching, No flatulence, No food intolerance, No hematemesis, No hemorrhoids, No hematochezia, No stool changes, No heartburn, No indigestion, No dysphagia, No rectal bleeding, No problem reported Genitourinary - Female: No dysmenorrhea, No dysuria, No hematuria, No hesitancy , No menorrhagia, No metrorrhagia, No , No rash, No urinary frequency, No urinary incontinence, No urinary retention, No urinary urgency, No vulvadynia , No vaginal bleeding, No vaginal discharge, No vaginal itching, No breast problems, No problem reported Musculoskeletal: No back pain, No gout, No joint pain, No joint swelling, No muscle pain, No muscle stiffness, No muscle weakness, No neck pain, No problem reported Neurologic: No dizziness, No weakness, No headache, No lethargy, No numbness, No paresthesia, No pre-existing deficit, No seizures, No tics, No tingling, No tremors, No vertigo, No memory loss, No LOC, No problem reported Psychiatric: No anxiety, No alcohol abuse, No auditory hallucinations, No depression, No drug abuse, No homicidal ideation, No mood changes, No suicidal ideation, No visual hallucinations, No problem reported Physical Exam Constitutional: General Apperance: overweight Level of Distress: NAD Ambulation: ambulating normally Head: normocephalic Neck: supple Lungs: Auscultation: breath sounds normal Cardiovascular: Heart Auscultation: RRR Peripheral Pulses: Radial Pulse: normal on the left, normal on the right Femoral Pulse: normal on the left, normal on the right Abdomen: Inspection & Palpation: soft, pertinent finding (vac in place) Musculoskeletal: normal Extremities: Upper Right: no cyanosis, no edema, no varicosities, no palpable cord, no clubbing, no ulcers, no mottling Upper Left: no cyanosis, no edema, no palpable cord, no clubbing, no ulcers , no mottling Lower Right: no cyanosis, no edema, no varicosities, no palpable cord, no clubbing, no ulcers, no mottling Lower Left: no cyanosis, no edema, no varicosities, no palpable cord, no clubbing, no ulcers, no mottling Neurologic: Cranial Nerves: grossly intact Assessment and Plan Imp: Lack of venous access Plan: Patient is for a Vang catheter insertion. I have discussed the risks options and benefits of the procedure with the patient. The patient understands the risks options and benefits and agrees to the procedure.
--- NOTE | 2017-12-19 07:14 | Nephrology Progress Note ---
Nephrology Progress Note Date of Service: Dec 19, 2017. Subjective 62 yo female with ESRD who currently has a wound vac. pt feels good. Objective Date Time Temp Pulse Resp B/P (MAP) Pulse Ox O2 Delivery O2 Flow Rate FiO2 12/18/17 23:17 36.9 77 20 109/65 (80) 94 Nasal Cannula 4.0 12/18/17 20:09 Nasal Cannula 4.0 Humidified Oxygen 12/18/17 16:37 36.5 76 16 100/41 (60) 92 Nasal Cannula 4.0 12/18/17 12:15 Nasal Cannula 4.0 Humidified Oxygen 12/18/17 07:45 Nasal Cannula 4.0 Humidified Oxygen 12/18/17 07:20 36.7 74 16 103/69 (80) 93 Nasal Cannula 4.0 Physical Exam: General-aaox3, obese Eyes-no scleral icterus ENT-mmm Neck-supple Lungs-clear Heart-distant heart sounds Abdomen-bs+ +pannus with wound vac in place Extremities-mild edema, mild erythema Neuro-nonfocal Current Inpatient Medications Medications (Trade) Dose Ordered Sig/Tyrone Route Start Time Stop Time Status Last Admin Dose Admin Acetaminophen (Tylenol Tab) 650 mg Q4H PRN PO 12/15/17 15:30 01/14/18 15:29 Ondansetron HCl (Zofran Inj) 4 mg Q6H PRN IV 12/15/17 15:30 01/14/18 15:29 Albuterol/ Ipratropium (Duoneb) 3 ml QIDR PRN INH 12/15/17 16:15 01/14/18 16:14 Ascorbic Acid (Vitamin C Tab) 500 mg BID PO 12/15/17 21:00 01/14/18 20:59 12/18/17 21:33 500 MG Atorvastatin Calcium (Lipitor Tab) 40 mg DAILY PO 12/16/17 09:00 01/15/18 08:59 12/18/17 09:18 40 MG Cyanocobalamin (Vitamin B-12 Tab) 1,000 mcg DAILY PO 12/16/17 09:00 01/15/18 08:59 12/18/17 09:19 1,000 MCG Docusate Sodium (coLACE CAP) 100 mg BID PO 12/15/17 21:00 01/14/18 20:59 12/18/17 09:18 100 MG Gabapentin (Neurontin Cap) 400 mg BID PO 12/15/17 21:00 01/14/18 20:59 12/18/17 21:33 400 MG Acetaminophen/ Hydrocodone Bitart ([place] 5/325 Tab) 1 tab Q6H PRN PO 12/15/17 16:15 12/29/17 16:14 12/18/17 21:34 1 TAB Levothyroxine Sodium (Synthroid Tab) 125 mcg DAILYBB PO 12/16/17 06:00 01/15/18 05:59 12/19/17 05:57 125 MCG Magnesium Oxide (Mag-Ox Tab) 400 mg BID PO 12/15/17 21:00 01/14/18 20:59 12/18/17 21:33 400 MG Metoprolol Succinate (Toprol Xl Tab) 25 mg DAILY PO 12/16/17 09:00 01/15/18 08:59 12/18/17 09:19 25 MG Prednisone (PredniSONE TAB) 5 mg DAILY PO 12/16/17 09:00 01/15/18 08:59 12/18/17 09:18 5 MG Sertraline HCl (Zoloft Tab) 100 mg DAILY PO 12/16/17 09:00 01/15/18 08:59 12/18/17 09:18 100 MG Tiotropium [place] (Spiriva Handihaler Inhaler) 1 puff DAILY INH 12/16/17 09:00 01/15/18 08:59 12/18/17 09:19 1 PUFF Warfarin Sodium (Coumadin Tab) 5 mg DAILY@1600 PO 12/16/17 16:00 01/15/18 15:59 Future Hold Glucose (Glucose 40% Gel) 15-30 GRAMS 15 GRAMS... UD PRN PO 12/15/17 16:45 01/14/18 16:44 Glucose (Glucose Chew Tab) 4-8 Tablets 4 Tabl... UD PRN PO 12/15/17 16:45 01/14/18 16:44 Dextrose (Dextrose 50% 50ML Syringe) 25-50ML OF 50% DW IV FOR... UD PRN IV 12/15/17 16:45 01/14/18 16:44 Glucagon (Glucagon Inj) 1 mg UD PRN SQ 12/15/17 16:45 5/2/18 16:44 Miscellaneous Information (Consult Glycemic Management Pharmacy) 1 ea UD PRN N/A 12/15/17 17:37 01/14/18 17:36 Warfarin Sodium (Coumadin Tab) 2.5 mg DAILY@16 PO 12/17/17 16:00 01/16/18 15:59 Future Hold 12/17/17 16:38 2.5 MG Insulin Glargine (Lantus Solostar Pen) 10 units HS SC 12/17/17 21:00 01/16/18 20:59 Future hold 12/17/17 21:30 10 UNITS Ceftazidime/ Avibactam 0.94 gm/ Sodium Chloride 54.512 ml @ 25 mls/hr Q12H IV 12/18/17 20:00 12/25/17 15:59 12/18/17 19:56 25 MLS/HR Insulin Aspart (novoLOG ASPART) SLIDING SCALE If C... Q6 SC 12/19/17 06:00 01/18/18 05:59 Epoetin Faisal (Procrit Inj) 10,000 units ONE ONCE IV. 12/19/17 07:15 12/19/17 07:16 UNV Last 24 Hours Test 12/18/17 07:57 12/18/17 12:04 12/18/17 17:05 12/18/17 20:31 Bedside Glucose 111 mg/dl 138 mg/dl 196 mg/dl 155 mg/dl Test 12/19/17 04:44 12/19/17 05:55 Bedside Glucose 125 mg/dl Assessment & Plan ESRD-for dialysis today. tentatively planned for iv access procedure by cheryle this afternoon for prolonged antibiotic treatment. will dialyze on a 2k bath and remove 2 liters as bp tolerates.
[2017-12-19] MEDS: TIOTROPIUM BROMIDE 5 PUFF/90 MCG INH INH SCH (08:13)
[2017-12-19] MEDS ORDERED: EPOETIN ALFA 10,000 UNITS/ML VIAL IV. ONE (08:30)
[2017-12-19 08:33] LABS: HEMATOCRIT 35.2 % (37-47); HEMOGLOBIN 10.8 g/dL (12.0-16.0); MEAN CELL VOLUME 87.3 fL (80-100); MEAN CORPUSCULAR HEMOGLOBIN 26.8 pg (25-34); MEAN CORPUSCULAR HGB CONC 30.7 g/dl (32-36); MEAN PLATELET VOLUME 8.9 fL (7.4-10.4); PLATELET COUNT 218 K/uL (130-400); RED CELL DISTRIBUTION WIDTH CV 20.3 % (11.5-14.5); RED CELL DISTRIBUTION WIDTH SD 63.8 fL (36.4-46.3); WHITE BLOOD COUNT 14.34 K/uL (4.8-10.8)
[2017-12-19 08:44] LABS: INR 1.9 (0.9-1.1)
[2017-12-19] MEDS: DOCUSATE SODIUM 100 MG CAP PO SCH ×2 (09:00→20:59)
[2017-12-19] MEDS: SERTRALINE HCL 100 MG TAB PO SCH (09:00)
[2017-12-19] MEDS: ASCORBIC ACID 500 MG TAB PO SCH ×2 (09:00→20:58)
[2017-12-19] MEDS: METOPROLOL SUCC 25MG EXT REL TAB PO SCH (09:00)
[2017-12-19] MEDS: GABAPENTIN 400 MG CAP PO SCH ×2 (09:00→20:58)
[2017-12-19] MEDS: ATORVASTATIN 40 MG TAB PO SCH (09:00)
[2017-12-19] MEDS: CYANOCOBALAMIN 500 MCG TAB (VIT B-12) PO SCH (09:00)
[2017-12-19] MEDS: MAGNESIUM OXIDE 400 MG TAB PO SCH ×2 (09:00→20:58)
--- NOTE | 2017-12-19 09:09 | Progress Note ---
Progress Note Date of Service Dec 19, 2017. Progress Note Patient for roberts catheter insertion today. I have discussed the risks options and benefits of the procedure with the patient. The patient understands the risks options and benefits and agrees to the procedure. I have examined the patient, reviewed the History & Physical and in the interval since the performance of the History & Physical I have noted the following changes of clinical significance: No changes noted
[2017-12-19 09:21] LABS: CREATININE 6.34 mg/dl (0.60-1.20)
[2017-12-19 09:22] LABS: POTASSIUM 5.1 mmol/L (3.5-5.1)
--- NOTE | 2017-12-19 10:03 | Pharmacy Progress Note ---
Glycemic Control Progress Note Date of Service Dec 19, 2017. Scope Glycemic Pharmacist consulted for glycemic control to write orders per [facility] inpatient glycemic control protocol. Objective Accuchecks BSG (last 24hrs): Test 12/18/17 12:04 12/18/17 17:05 12/18/17 20:31 12/19/17 05:55 Bedside Glucose 138 mg/dl (70-90) 196 mg/dl (70-90) 155 mg/dl (70-90) 125 mg/dl (70-90) Test 12/19/17 07:51 Random Glucose 101 mg/dl (70-99) Recent Pertinent Medications The patient is currently receiving: * Basal insulin: Lantus 10 units every 24 hours in the evening * Correctional Insulin: Novolog Correction per scale ACHS Goal Range: Low 110 mg/dL - High 140 mg/dL Correction Factor: 25 mg/dL/unit * Prandial insulin: Per carb ratio of 1 unit per 7 grams CHO consumed Outpatient Anti-Diabetic Meds Lantus 30 units qHS plus Novolog ACHS Assessment & Plan ASSESSMENT: * See progress note from 12/16/17 for more background info, in short: * Pt receiving SQ basal bolus insulin regimen for hyperglycemia secondary to baseline DM (outpatient regimen on hold), infected abdominal wound receiving Avycaz, and on home prednisone 5 mg daily. * Patient is currently receiving an average of 28 units of insulin per day * 8 units of basal insulin due to NPO status * 20 units of prandial/correctional insulin * BSGs were 523-358-272-155 mg/dl over the past 24hrs * Changes needed to insulin regimen: * AM Fasting BSG = 125 mg/dl. This is in goal range for patient based on inpatient targets and co-morbidities. Therefore Basal insulin will be continued at slightly reduced rate. Based upon previous hospitalizations this is the lowest basal the patient requires. Since patient is having catheter placed today expect diet to be ordered tonight. * Post-prandial BSGs rise throughout the day; however, the patient is NPO today. Difficult to adjust the Novolog parameters during this time. Expect that the patient will require slightly tightened Novolog parameters on 12/20/17. * Total daily dose = ~25 units. This dosing is yielding adequate glycemic control so continue. PLAN FOR INPATIENT GLYCEMIC CONTROL: * Continuing Lantus 10 units SQ HS * Continuing correction factor of 25 mg/dl/unit * Continuing carb ratio to 1 unit per 7 grams CHO consumed * Continuing goal range to Low 110 mg/dL - High 140 mg/dL RECOMMENDATIONS FOR DISCHARGE: * Patient receives hemodialysis so HbA1C does not accurately reflect patient's true glycemic control. Recommend monitoring blood glucose via logs and titrating as appropriate. Thank you.
[2017-12-19] MEDS ORDERED: MIDAZOLAM HCL 1 MG/ML 2ML VIAL ONE (12:19)
[2017-12-19] MEDS ORDERED: FENTANYL CITRATE INJ 50 MCG/1 ML 2 ML VIAL ONE (12:19)
--- NOTE | 2017-12-19 12:28 | Pre Sedation Assessment ---
Pre Sedation Assessment General Date of Sedation: Dec 19, 2017. Vital Signs Past 12 Hours Date Time Temp Pulse Resp B/P (MAP) Pulse Ox O2 Delivery O2 Flow Rate FiO2 12/19/17 11:35 36.6 70 93/50 (64) 12/19/17 11:15 76 114/59 12/19/17 11:00 68 105/47 12/19/17 10:45 76 104/54 12/19/17 10:30 76 93/48 12/19/17 10:15 76 102/52 12/19/17 10:00 75 106/57 12/19/17 09:45 71 100/42 12/19/17 09:30 72 99/47 12/19/17 09:15 72 98/48 12/19/17 09:00 70 97/48 12/19/17 08:46 69 99/53 12/19/17 08:26 66 92/45 12/19/17 08:15 36.6 70 93/50 (64) 12/19/17 07:21 36.6 74 22 101/67 (78) 90 Nasal Cannula 4.0 Review Cardiovascular: regular rate, rhythm Lungs: lungs clear Pre-Sedation Airway Assessment Smoking Status: Former Smoker Hx of Sleep Apnea: Yes Short Thick Neck: Yes Thyro-mental Distance: < or =3 Finger Breadths Oral Cavity: WNL Mallampati Classification: Class II ASA Classification: Class III NPO Status Date of Last Intake of Fluids: Dec 18, 2017 Time of Last Intake of Fluids: 2199 Date of Last Intake of Solids: Dec 18, 2017 Time of Last Intake of Solids: 2199 Procedure Planning Contraindications for Sedation: None Current Medications Reviewed: Yes Notes The planned sedation has been discussed with the patient. Informed Consent was obtained. I have identified the patient, determined the appropriateness of sedation and have assessed the patient immediately prior to the procedure. All medicine(s) and interventions are by my order.
[2017-12-19] MEDS ORDERED: LIDOCAINE HCL 1% 20 ML VIAL INJ ONE ×2 (12:57→13:34)
[2017-12-19] MEDS ORDERED: MIDAZOLAM HCL 1 MG/ML 2ML VIAL IV ONE (13:03)
[2017-12-19] MEDS ORDERED: FENTANYL CITRATE INJ 50 MCG/1 ML 2 ML VIAL IV ONE (13:03)
--- NOTE | 2017-12-19 13:21 | [facility] Post Operative Brief Note ---
Immediate Operative Summary Operative Date Dec 19, 2017. Pre-Operative Diagnosis Lack of IV access Post-Operative Diagnosis Lack of IV access Procedure(s) Performed Insertion of roberts Catheter, Left Jugular Approach Ultrasound Localization of Left Jugular Vein Fluoroscopy for Positioning Moderate Sedation [id number] Surgeon Dileep Photo Tube Assembler Surgeon(s) Vandana Estimated Blood Loss 3 Findings Consistent with Post-Op Diagnosis Specimens None Drains None Anesthesia Type IV Sedat Cons RN Only Complication(s) none Disposition Accompanied Pt To Recover: no Disposition:
--- NOTE | 2017-12-19 13:29 | Post Sedation Assessment ---
Post Sedation Assessment General Date of Sedation Dec 19, 2017. Vital Signs: Vital Signs Past 12 Hours Date Time Temp Pulse Resp B/P (MAP) Pulse Ox O2 Delivery O2 Flow Rate FiO2 12/19/17 11:35 36.6 70 93/50 (64) 12/19/17 11:15 76 114/59 12/19/17 11:00 68 105/47 12/19/17 10:45 76 104/54 12/19/17 10:30 76 93/48 12/19/17 10:15 76 102/52 12/19/17 10:00 75 106/57 12/19/17 09:45 71 100/42 12/19/17 09:30 72 99/47 12/19/17 09:15 72 98/48 12/19/17 09:00 70 97/48 12/19/17 08:46 69 99/53 12/19/17 08:26 66 92/45 12/19/17 08:15 36.6 70 93/50 (64) 12/19/17 07:21 36.6 74 22 101/67 (78) 90 Nasal Cannula 4.0 Post Procedure Recovery Score Activity: (2) Moves 4 extremities * Respiration: (2) Deep breath/cough Circulation: (2) +/-20% PreAnes Value Consciousness: (2) Fully Awake Oxygen Saturation: (1) O2 needed for >90% Post Anesthesia Score: 9 Discharge Sedation Level of Care: Fast Track Phase II Post Sedation Plan On clinical assessment, the patient appears to have tolerated the sedation without complications. Patient is recovering as anticipated. Patient will continue to be monitored by nursing and may be discharged when sedation discharge criteria are met per below protocol. Upon Completions of procedure and additional 15 minutes continue every 5 minute vital signs and the P.A.R. score; then discharge to a Phase I or Fast Track to Phase II per the following guidelines: * Discharge Patient to appropriate Phase II area if PAR is 8 or greater or return to pre- procedure baseline. The post - procedure orders will be as directed. * If PAR score is less than 8 or not return to pre-procedure baseline then patient will follow Phase I monitoring till PAR is reached for Phase II. The Phase I may be done in procedure room or may call to secure a Phase I area. * If naloxone or flumazenil are used for reversal, hold in Phase I for an additional 60 -120 minutes before discharge to Phase II. Please call the Sedation Physician to re-evaluate and complete post-note for discharge to Phase II area. Do NOT discharge from procedure sedation or Phase 1 until post- sedation evaluation note is complete by procedure /sedation MD Sedation Discharge Instructions to be given to the patient at discharge to home.
--- NOTE | 2017-12-19 14:05 | DIAGNOSTIC IMAGING REPORT ---
DATE OF PROCEDURE: 12/19/2017 PREOPERATIVE DIAGNOSIS: Difficult intravenous access, need for long-term intravenous antibiotics. POSTOPERATIVE DIAGNOSIS: Difficult intravenous access, need for long-term intravenous antibiotics. PROCEDURE: Ultrasound guided left IJ access, placement of tunneled infusion catheter, fluoroscopy for positioning, moderate sedation, 25 minutes. SURGEON: Dr. Yves Falk. FIXTURE DESIGNER: Dr. Susan Ross. ANESTHESIA: Moderate sedation 25 minutes plus local. ESTIMATED BLOOD LOSS: 3 mL. COMPLICATIONS: None. INDICATIONS: Mrs. Ella Blevins is a 62-year-old woman with history of end-stage renal disease on hemodialysis through a right IJ tunneled hemodialysis catheter. She additionally has an abdominal wound for which she is requiring long-term IV antibiotics. For this reason, she was recommended to undergo placement of a tunneled infusion catheter for long-term IV antibiotics. Risks, benefits and alternatives were discussed with the patient, she consented to the procedure. DESCRIPTION OF PROCEDURE: The patient was taken to the endovascular suite and placed in the supine position. The left neck and chest were prepped and draped in the usual sterile fashion. A safety timeout was performed and the patient, procedure, and sidedness were correctly identified. Ultrasound was used to identify the left IJ and appeared patent. Local anesthesia was used to anesthetize the skin overlying the left IJ. After approximately 3 attempts, the IJ was successfully accessed under ultrasound guidance with an 18-gauge access needle. The guidewire easily passed through the needle and into the SVC. Local anesthesia was then used to anesthetize the skin over the left infraclavicular chest. An 11 blade scalpel was used to make a 1 cm skin incision several fingerbreadths below the left clavicle. The infusion catheter was tunneled from the infraclavicular incision to the IJ access site. A peelaway sheath was placed over the wire and into the left IJ under fluoroscopy. The dilator and wire were removed. Catheter was cut to length and placed through the peelaway sheath and the peelaway sheath was removed. Imaging was used to confirm location of the catheter and it was withdrawn approximately 2 cm. The catheter easily aspirated dark venous blood and flushed without difficulty. Nylon suture was used to secure the catheter to the chest wall. Vicryl suture was used to close the skin overlying the IJ access site. Dermabond skin glue was applied to the IJ access site. A sterile dressing was applied. The patient was transferred to the recovery area in stable condition and there were no immediate complications. Dr. Yves Falk was present for the entire procedure.
--- NOTE | 2017-12-19 14:23 | Progress Note ---
Subjective Date of Service: Dec 19, 2017. Subjective Pt evaluation today including: conversation w/ patient, physical exam, chart review, lab review s/p roberts placement earlier today. afebrile. tolerated well. vac now off awaiting wound care eval. min pain at wound site, improved. asking to go home. pt will be d/c once daily avycaz, per nursing insurance will only pay for 14 days. tolerating abx well. no abd pain no n/v/d. all remaining ros reviewed and are negative. Problem List Medical Problems: (1) Acute exacerbation of CHF (congestive heart failure) Status: Acute (2) Acute hemorrhage Status: Acute (3) FRED (acute kidney injury) Status: Acute (4) Anemia Status: Acute (5) CHF (congestive heart failure) Status: Acute (6) Congestive heart failure Status: Acute (7) Congestive heart failure Status: Acute (8) Congestive heart failure Status: Acute (9) COPD exacerbation Status: Acute (10) End-stage renal disease on hemodialysis Status: Acute (11) Fluid overload Status: Acute (12) Hypoxia Status: Acute (13) Hypoxia Status: Acute (14) Leukocytosis Status: Acute (15) Leukocytosis Status: Acute (16) Low grade fever Status: Acute (17) Low grade fever Status: Acute (18) Pleural effusion, right Status: Acute (19) Pressure ulcer Status: Acute (20) Rapid atrial fibrillation Status: Acute (21) Rapid atrial fibrillation Status: Acute (22) Renal insufficiency Status: Acute (23) Respiratory failure Status: Acute (24) Sepsis Status: Acute (25) Sepsis Status: Acute (26) Sepsis associated hypotension Status: Acute (27) Severe sepsis with acute organ dysfunction Status: Acute (28) Shortness of breath Status: Acute (29) Supratherapeutic INR Status: Acute Objective Vital Signs Date Time Temp Pulse Resp B/P (MAP) Pulse Ox O2 Delivery O2 Flow Rate FiO2 12/19/17 13:47 36.4 80 20 110/71 (84) 92 Nasal Cannula 4.0 12/19/17 13:31 84 20 94/61 98 Oxymask 5 12/19/17 13:26 81 20 87/53 99 Oxymask 10 12/19/17 13:21 80 20 97/52 98 Oxymask 10 12/19/17 13:16 81 14 102/59 96 Oxymask 10 12/19/17 13:13 84 22 109/61 92 Oxymask 10 12/19/17 13:08 66 19 112/55 96 Oxymask 10 12/19/17 13:00 81 19 113/66 99 Oxymask 10 12/19/17 12:52 79 16 107/61 100 Oxymask 10 12/19/17 11:35 36.6 70 93/50 (64) 12/19/17 11:15 76 114/59 12/19/17 11:00 68 105/47 12/19/17 10:45 76 104/54 12/19/17 10:30 76 93/48 12/19/17 10:15 76 102/52 12/19/17 10:00 75 106/57 12/19/17 09:45 71 100/42 12/19/17 09:30 72 99/47 12/19/17 09:15 72 98/48 12/19/17 09:00 70 97/48 12/19/17 08:46 69 99/53 12/19/17 08:26 66 92/45 12/19/17 08:15 36.6 70 93/50 (64) 12/19/17 07:21 36.6 74 22 101/67 (78) 90 Nasal Cannula 4.0 12/18/17 23:17 36.9 77 20 109/65 (80) 94 Nasal Cannula 4.0 12/18/17 20:09 Nasal Cannula 4.0 Humidified Oxygen 12/18/17 16:37 36.5 76 16 100/41 (60) 92 Nasal Cannula 4.0 Physical Exam General Appearance: WD/WN, no apparent distress Eyes: normal inspection, EOMI Neck: supple Respiratory/Chest: lungs clear, normal breath sounds, no respiratory distress Cardiovascular: no edema Abdomen: soft Extremities: non-tender, + pedal edema Neurologic/Psychiatric: alert, oriented x 3 Skin: normal color, warm/dry Comments: wound with less surrounding induration/erythema, no purulent drainage. Laboratory Results Item Value Date Time Blood Culture - Preliminary Resulted 12/15/17 1624 Blood NO GROWTH TO DATE. Blood Culture - Preliminary Resulted 12/15/17 1609 Blood NO GROWTH TO DATE. Last 24 Hours Test 12/18/17 17:05 12/18/17 20:31 12/19/17 05:55 12/19/17 07:51 Bedside Glucose 196 mg/dl 155 mg/dl 125 mg/dl White Blood Count 14.34 K/uL Red Blood Count 4.03 M/uL Hemoglobin 10.8 g/dL Hematocrit 35.2 % Mean Corpuscular Volume 87.3 fL Mean Corpuscular Hemoglobin 26.8 pg Mean Corpuscular Hemoglobin Concent 30.7 g/dl RDW Standard Deviation 63.8 fL RDW Coefficient of Variation 20.3 % Platelet Count 218 K/uL Mean Platelet Volume 8.9 fL Prothrombin Time 20.0 SECONDS Prothromb Time International Ratio 1.9 Sodium Level 135 mmol/L Potassium Level 5.1 mmol/L Chloride Level 101 mmol/L Carbon Dioxide Level 22 mmol/L Anion Gap 12.0 mmol/L Blood Urea Nitrogen 46 mg/dl Creatinine 6.34 mg/dl Est Creatinine Clear Calc Drug Dose 10.6 ml/min Estimated GFR () 7.4 Estimated GFR (Non- 6.4 BUN/Creatinine Ratio 7.2 Random Glucose 101 mg/dl Calcium Level 9.0 mg/dl Magnesium Level 2.8 mg/dl Assessment and Plan (1) Wound of abdomen Assessment & Plan: will continue with avycaz. no alternative options available. wound culture from wound center growing k. pneumonia - cre, only sensitive to amikacin and tigecycline. has responded well to avycaz in past for hip wound (now healed). With HD and inability to check amikacin levels would avoid this due to risk of ototoxicity. She has had allergic reaction and pancreatitis due to tigecycline in past. options are severely limited. s/p cath, will be d/c on once daily avycaz x 14 days She will be followed closely in wound center post d/c.
[2017-12-19] MEDS: SODIUM CHLORIDE 0.9% IV SCH ×2 (16:25→23:57)
[2017-12-19] MEDS: CEFTAZIDIME AVIBACTAM IV SCH ×2 (16:25→23:57)
[2017-12-19] MEDS: HYDROCODONE/ACETAMIN 5/325MG TAB PO PRN ×2 (16:33→23:58)
--- NOTE | 2017-12-19 17:44 | Progress Note ---
Internal Med Progress Note Date of Service: Dec 19, 2017. Provider Documentation: SUBJECTIVE: Status post Vang catheter placed today Plan for discharge home with home IV antibiotic tomorrow OBJECTIVE: Vital Signs-as noted below Exam: General-chronically ill-appearing, no sign of distress, pleasant Eyes-sclera nonicteric ENT-moist oral mucosa Neck-no JVD Lungs-diminished, rales noted on the right base Heart-regular S1-S2 Abdomen-wound VAC on right lower abdomen wall Extremities-+2 bilateral lower extremity edema, with chronic venous stasis change Has 2 shallow wounds on both bilateral lower extremity below the knee bandage present, no active drainage noted Neuro-alert awake oriented 3, no focal neurological deficit Lab data as noted below. ASSESSMENT & PLAN: INFECTED RIGHT ABDOMINAL WOUND: -Wound culture on 12/01/2017: Shows Klebsiella pneumoniae with ESBL/acowb-issz-xihdhhaet Resistant to all oral and IV antibiotics including carbapenems Sensitive to tigecycline and amikacin appreciate input form Dr Whittaker D/W Dr Mcduffie patient had a life-threatening Allergic reaction to tigecycline due to dialysis treatment adequate level for Amikacin will be difficult to maintain Patient is continued on Avycaz/combination of Ceftadizime and Avibactum Ist day of treatment 12/15/17 Per ID : will need total 14 days of treatment -Prescription given to social service, patient has 100% coverage for the duration of antibiotic -Vang catheter placed by vascular surgery Dr. Falk today for long-term antibiotic/poor vascular access Wound vac changed by wound care team today We will have close follow-up with wound clinic on discharge END-STAGE RENAL DISEASE ON DIALYSIS -Stable volume status and electrolytes -Gets dialysis Friday at [facility] -had Dialysis today Follows with [facility] nephrology ELEVATED INR: Coumadin resumed after Vang catheter placed TYPE 2 DIABETES: Insulin sliding scale Appreciate pharmacy input for glycemic management CHRONIC A. FIB: Continue metoprolol On Coumadin for chronic anticoagulation COPD: Advanced disease, with chronic hypoxic respiratory failure on 4 L oxygen at home Respiratory status to approximate baseline Continue nebulizer treatment Patient is on chronic oral prednisone CHRONIC RIGHT-SIDED HEART FAILURE/COR PULMONALE Due to advanced COPD Volume status stable Continue routine dialysis HYPOTHYROIDISM On levothyroxine TSH level within normal limit CHRONIC MULTIPLE STAGE III PRESSURE ULCERS ON EXTREMITIES: Present on admission Wound care following CODE STATUS: Full code DVT PROPHYLAXIS ON Coumadin DISPOSITION Possible discharge home tomorrow with wound VAC, home IV antibiotics Home health visiting nurse with Center home care Vital Signs: Date Time Temp Pulse Resp B/P (MAP) Pulse Ox O2 Delivery O2 Flow Rate FiO2 12/20/17 07:38 36.7 88 21 96/65 (75) 90 Nasal Cannula 4.0 12/20/17 03:30 36.7 78 20 99/65 (76) 93 Nasal Cannula 4.0 12/19/17 23:55 Nasal Cannula 4.0 12/19/17 22:58 36.9 88 22 106/65 (79) 93 Nasal Cannula 4.0 12/19/17 21:06 96/54 (68) 92 Nasal Cannula 4.0 12/19/17 18:59 37.4 99 16 72/43 (53) 89 Nasal Cannula 4.0 12/19/17 16:30 Nasal Cannula 4.0 12/19/17 15:20 36.2 80 16 79/44 (56) 92 Nasal Cannula 4.0 12/19/17 13:47 36.4 80 20 110/71 (84) 92 Nasal Cannula 4.0 12/19/17 13:31 84 20 94/61 98 Oxymask 5 12/19/17 13:26 81 20 87/53 99 Oxymask 10 12/19/17 13:21 80 20 97/52 98 Oxymask 10 12/19/17 13:16 81 14 102/59 96 Oxymask 10 12/19/17 13:13 84 22 109/61 92 Oxymask 10 12/19/17 13:08 66 19 112/55 96 Oxymask 10 12/19/17 13:00 81 19 113/66 99 Oxymask 10 12/19/17 12:52 79 16 107/61 100 Oxymask 10 12/19/17 11:35 36.6 70 93/50 (64) 12/19/17 11:15 76 114/59 12/19/17 11:00 68 105/47 12/19/17 10:45 76 104/54 12/19/17 10:30 76 93/48 12/19/17 10:15 76 102/52 12/19/17 10:00 75 106/57 12/19/17 09:45 71 100/42 4/6/18 09:30 72 99/47 Lab Results: Results Past 24 Hours Test 12/19/17 12:30 12/19/17 14:18 12/19/17 17:25 12/19/17 21:09 Range/Units Bedside Glucose 77 112 180 162 70-90 mg/dl Test 12/20/17 05:56 12/20/17 08:24 Range/Units White Blood Count 12.49 4.8-10.8 K/uL Red Blood Count 3.75 4.2-5.4 M/uL Hemoglobin 10.0 12.0-16.0 g/dL Hematocrit 33.2 37-47 % Mean Corpuscular Volume 88.5 80-100 fL Mean Corpuscular Hemoglobin 26.7 25-34 pg Mean Corpuscular Hemoglobin Concent 30.1 32-36 g/dl RDW Standard Deviation 64.4 36.4-46.3 fL RDW Coefficient of Variation 20.0 11.5-14.5 % Platelet Count 190 130-400 K/uL Mean Platelet Volume 9.5 7.4-10.4 fL Prothrombin Time 16.4 9.0-12.0 SECONDS Prothromb Time International Ratio 1.6 0.9-1.1 Sodium Level 133 136-145 mmol/L Potassium Level 4.2 3.5-5.1 mmol/L Chloride Level 98 98-107 mmol/L Carbon Dioxide Level 28 21-32 mmol/L Anion Gap 7.0 3-11 mmol/L Blood Urea Nitrogen 28 7-18 mg/dl Creatinine 4.72 0.60-1.20 mg/dl Est Creatinine Clear Calc Drug Dose 14.1 ml/min Estimated GFR () 10.6 Estimated GFR (Non- 9.2 BUN/Creatinine Ratio 5.8 10-20 Random Glucose 88 70-99 mg/dl Calcium Level 8.8 8.5-10.1 mg/dl Magnesium Level 2.4 1.8-2.4 mg/dl Bedside Glucose 91 70-90 mg/dl
[2017-12-19] MEDS ORDERED: [UNRECOGNIZED DRUG - CODE] IV (18:13)
[2017-12-19] MEDS ORDERED: NURSING DECISION MEDICATION ORDER SCH (18:30)
[2017-12-19] MEDS: INSULIN GLARGINE SOLOSTAR 100 UNITS/ML 3 ML PEN SC SCH (21:19)
[2017-12-20 03:30] VITALS: BP 99/65; PULSE 78; TEMP 36.7; O2SAT 93
[2017-12-20] MEDS: LEVOTHYROXINE 125 MCG TAB PO SCH (06:04)
[2017-12-20 06:07] LABS: HEMATOCRIT 33.2 % (37-47); MEAN CELL VOLUME 88.5 fL (80-100); MEAN CORPUSCULAR HEMOGLOBIN 26.7 pg (25-34); MEAN CORPUSCULAR HGB CONC 30.1 g/dl (32-36); MEAN PLATELET VOLUME 9.5 fL (7.4-10.4); PLATELET COUNT 190 K/uL (130-400); RED CELL DISTRIBUTION WIDTH SD 64.4 fL (36.4-46.3); WHITE BLOOD COUNT 12.49 K/uL (4.8-10.8)
[2017-12-20 06:15] LABS: INR 1.6 (0.9-1.1)
[2017-12-20 06:48] LABS: CALCIUM 8.8 mg/dl (8.5-10.1); CREATININE 4.72 mg/dl (0.60-1.20); POTASSIUM 4.2 mmol/L (3.5-5.1)
[2017-12-20 07:38] VITALS: BP 96/65; PULSE 88; TEMP 36.7; O2SAT 90
[2017-12-20 07:40] VITALS: O2SAT 90
[2017-12-20] MEDS: DOCUSATE SODIUM 100 MG CAP PO SCH (09:00)
[2017-12-20] MEDS: HYDROCODONE/ACETAMIN 5/325MG TAB PO PRN (09:14)
[2017-12-20] MEDS: TIOTROPIUM BROMIDE 5 PUFF/90 MCG INH INH SCH (09:14)
[2017-12-20] MEDS: ATORVASTATIN 40 MG TAB PO SCH (09:15)
[2017-12-20] MEDS: GABAPENTIN 400 MG CAP PO SCH (09:16)
[2017-12-20] MEDS: MAGNESIUM OXIDE 400 MG TAB PO SCH (09:16)
[2017-12-20] MEDS: METOPROLOL SUCC 25MG EXT REL TAB PO SCH (09:17)
[2017-12-20] MEDS: CYANOCOBALAMIN 500 MCG TAB (VIT B-12) PO SCH (09:18)
[2017-12-20] MEDS: ASCORBIC ACID 500 MG TAB PO SCH (09:19)
[2017-12-20] MEDS: SERTRALINE HCL 100 MG TAB PO SCH (09:19)
[2017-12-20] MEDS: INSULIN ASPART 100 UNITS/ML 3 ML PEN SC SCH ×2 (09:23→13:30)
--- NOTE | 2017-12-20 09:32 | Discharge Instructions ---
Discharge Instructions Date of Service Dec 20, 2017. Admission Reason for Admission: Infected Abd Wound Discharge Discharge Diagnosis / Problem: INFECTED RT ABDOMINAL WOUND /END STAGE RENAL DISEASE WITH DIALYSIS Discharge Goals Goal(s): Increase independence, Improve disease control, Diagnostic testing, Therapeutic intervention Activity Recommendations Activity Limitations: as noted below ( TOLERATED ) . Instructions / Follow-Up Instructions / Follow-Up HOSPITAL FOLLOW UP : 12/24/2017 @ 1:[address] Narendra Gonzalez MD [facility] Wound Follow-up Care * WOUND CLINIC [phone] [facility] 12/23/17 AT 1:40 pm YOUR IV ANTIBIOTIC IS NOW ONCE DAILY FOR TOTAL 14 DAYS FOLLOW UP WITH DR PHAM AT THE WOUND CLINIC Current Hospital Diet Patient's current hospital diet: Diabetes Type 2 Diet, AHA Diet (Heart Healthy) Discharge Diet Recommended Diet: AHA Diet (Heart Healthy), Diabetes Type 2 Diet, Low Potassium Diet (2g K) Procedures Procedures Performed: Insertion of roberts Catheter, Left Jugular Approach Ultrasound Localization of Left Jugular Vein Fluoroscopy for Positioning Moderate Sedation [id number] Pending Studies Studies pending at discharge: no Medical Emergencies . Who to Call and When: Medical Emergencies: If at any time you feel your situation is an emergency, please call 911 immediately. . Non-Emergent Contact Non-Emergency issues call your: Primary Care Provider (DR NARENDRA ROSARIO ) Contact Number: INCREASE DRAINAGE FORM THE WOUND PAIN AT THE WOUND SITE HAVING FEVER OR CHILLS PAIN AND SWELLING AND REDNESS NOTED AT THE ABDOMINAL WOUND . . "Provider Documentation" section prepared by Janice Mello. . Teaching Dietitian Recommendations Teaching Dietitian Recommendations: Wound CARE Instructions * INFECTED /DRAINING WOUND LEFT MEDIAL CALF, RIGHT POSTERIOR LEG, LEFT HIP, LEFT POSTERIOR THIGH AND RIGHT ABD- APPLY AQUACEL AG, COVER WITH AN OPTIFOAM, CHANGE EVERY OTHER DAY AND NEEDED. PLEASE NOTIFY WOUND CLINIC IF THERE IS EXCESS DRAINAGE -MAY NEED TO RE APPLY WOUND VAC
[2017-12-20] MEDS ORDERED: WARFARIN SOD 4 MG TAB PO STA (09:37)
[2017-12-20] MEDS ORDERED: CEFTAZIDIME AVIBACTAM IV STA (10:51)
[2017-12-20] MEDS ORDERED: SODIUM CHLORIDE 0.9% IV STA (10:51)
--- NOTE | 2017-12-20 10:51 | Discharge Summary ---
Discharge Summary Date of Service Dec 20, 2017. Discharge Summary Admission Date: Dec 15, 2017 at 14:38 Discharge Date: Dec 20, 2017 Discharge Disposition: Home with services Principal Diagnosis: INFECTED RT ABDOMINAL WOUND /END STAGE RENAL DISEASE WITH DIALYSIS Procedures: Procedures Performed: Insertion of roberts Catheter, Left Jugular Approach Ultrasound Localization of Left Jugular Vein Fluoroscopy for Positioning Moderate Sedation [id number] Consultations: NEPHROLOGY: DR. ANSARI INFECTIOUS DISEASE: VASCULAR SURGERY: Medication Reconciliation New Medications: Ceftazidime-Avibactam Sodium (Avycaz 2-0.5 gm) 1 Inj Inj 0.94 GM IV DAILY for 14 Days, #14 VIAL NON HEALING RT ABDOMINAL WALL WOUND WITH MULTIDRUG RESISTANT /ESBL KELBSIELLA PNEUMONIE INFECTION Continued Medications: Ascorbic Acid (Vitamin C) 500 Mg Tab 500 MG PO BID Aspirin (Aspirin Ec) 81 Mg Tab 81 MG PO DAILY Atorvastatin (Lipitor) 40 Mg Tab 40 MG PO DAILY, TAB B-Complex W/ C & Folic Acid (Renal Vitamin 0.8 mg) 1 Tab Tab 1 TAB PO DAILY Calcitriol (Rocaltrol Cap) 0.25 Mcg Cap 0.25 MCG PO UD, CAP MWF Cholecalciferol (Vitamin D3) 2,000 Unit Cap 1 CAP PO DAILY Collagenase (Santyl) 250 Unit/Gm Oin 1 APPLN TOP UD Cyanocobalamin (Vitamin B-12) 1,000 Mcg Tab 1000 MCG PO DAILY, TAB Docusate Sodium (Colace) 100 Mg Cap 1 CAP PO BID, CAP Gabapentin (Neurontin) 400 Mg Cap 400 MG PO BID Home O2 Therapy (Oxygen) Gas 4 LITERS NA CONTINOUS, BTL Hydrocodone/Acetaminophen 5MG/325MG (De Pere 5MG/325MG) Tab 1 TABLET PO Q6H PRN for Pain, TAB PRN PAIN Insulin Aspart (Novolog) 100 Units/Ml Inj Unknown Dose SC AC SLIDING SCALE Insulin Glargine (Lantus Solostar) 100 Unit/Ml Inj 30 UNITS SC HS, PEN Levothyroxine Sodium (Synthroid) 125 Mcg Tab 125 MCG PO DAILY, TAB Magnesium Oxide (Mag-Ox) 400 Mg Tab 400 MG PO BID, TAB Metoprolol Succ (Toprol Xl) (Toprol-Xl) 25 Mg Tabcr 25 MG PO DAILY, #30 TAB Pantoprazole (Protonix) 20 Mg Tab 20 MG PO DAILY Prednisone (Prednisone) 5 Mg Tab 10 MG PO DAILY, TAB Sertraline (Zoloft) 100 Mg Tab 100 MG PO DAILY, TAB Tiotropium Cornelius (Spiriva Handihaler) 30 Puff/540 Mcg Aerp 1 CAP INH DAILY, INHALER Warfarin Sodium (Coumadin) 5 Mg Tab 5 MG PO 5XWK, TAB EVERY DAY BUT FRIDAY AND FRIDAY Warfarin Sodium (Coumadin) 5 Mg Tab 2.5 TAB PO 2XWK, TAB FRIDAY AND FRIDAY Discontinued Medications: Cefdinir (Omnicef) 300 Mg Cap 300 MG PO Q2D, CAP Ciprofloxacin Tab (Cipro) 250 Mg Tab 750 MG PO BID Referrals At Discharge Follow up Referrals: Physician Referral - 12/24/17 with Narendra Gonzalez M.D. Physician Referral - 12/23/17 with Bird Mejía DO Admission Information HPI (per Admitting provider): Patient is a 62 yr female with multiple comorbidities including COPD on chronic 4 liters via nasal cannula, ad steroid dependent, ESRD on dialysis, DM II, Chronic A fib on Coumadin, CHF Right sided, Chronic wounds, Depressions, Obesity , HTN, Hypothymism and other problems presents with history of chronic worsening abdominal wound which is associated with pain, yellowish discharge since one month duration. Patient was a direct admit for IV antibiotics on recommendation from her infectious disease . Patient visited her wound care clinic today and had debridement of wound and was informed that wound Vac will be placed. Patient states pain at the site of abdomen is 8/10, sharp shooting pain. Denies any fever, chills, chest pain, SOB, palpitations, dizziness, diarrhea, dysuria. She also reports that she doesn't feel well today. Physical Exam (per Admitting): General Appearance: no apparent distress, + obese Head: normocephalic, atraumatic Eyes: normal inspection, PERRL, EOMI, sclerae normal ENT: normal ENT inspection, hearing grossly normal Neck: supple, trachea midline Respiratory/Chest: chest non-tender, lungs clear, normal breath sounds, no respiratory distress, no accessory muscle use Cardiovascular: no murmur, + irregularly irregular, + pertinent finding ( Chronic leg edema) Abdomen/GI: normal bowel sounds, non tender, soft, + pertinent finding ( Abdominal wound in bandage) Back: normal inspection Extremities/Musculoskelatal: normal inspection, + pedal edema, + pertinent finding (Chronic Venous stasis changes) 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, no motor/sensory deficits, alert , normal mood/affect, oriented x 3 Skin: normal color, warm/dry Hospital Course No fever or chills no complaint of pain or discomfort, on right lower abdomen wound site Wound VAC was discontinued yesterday by wound care team Patient will be discharged home today with dressing change only PHYSICAL EXAM GENERAL: Chronically ill appearing female, very pleasant, no sign of distress HEENT: Sclera nonicteric, pupils reactive to light HEART: Regular S1 and S2 LUNGS: Clear to auscultate no wheeze or rales ABDOMEN: Nonhealing wound on right lower quadrant of abdomen, dressing present Wound dressing changed by wound care today, has purulent base /purulent drainage EXTREMITY: Multiple wounds on left medial calf , rt posterior leg , left hip , left posterior thigh /bandage present NEURO: Alert awake oriented 3, no focal neurological deficit ASSESSMENT AND PLAN: INFECTED RIGHT ABDOMINAL WOUND: -Wound culture on 12/01/2017: Shows Klebsiella pneumoniae with ESBL/skvsq-chke-pnzmqnmbq Resistant to all oral and IV antibiotics including carbapenems Sensitive to tigecycline and amikacin appreciate input form Dr Whittaker D/W Dr Pham patient had a life-threatening Allergic reaction to tigecycline due to dialysis treatment adequate level for Amikacin will be difficult to maintain Patient is continued on Avycaz/combination of Ceftadizime and Avibactum Ist day of treatment 12/15/17 Per ID : will need total 14 days of treatment -Prescription given to social service, patient has 100% coverage for the duration of antibiotic -Roberts catheter placed by vascular surgery Dr. Falk for long-term antibiotic/poor vascular access Wound vac discontinued by wound care team Patient will be discharged today, home health visiting nurse arranged for wound care/dressing change/home IV antibiotics patient is scheduled to follow-up at the wound clinic on 12/23/2017 END-STAGE RENAL DISEASE ON DIALYSIS -Stable volume status and electrolytes -Gets dialysis Friday at [facility] -had Dialysis yesterday will continue outpatient dialysis per schedule after discharge [facility] TYPE 2 DIABETES: Insulin sliding scale Appreciate pharmacy input for glycemic management CHRONIC A. FIB: Continue metoprolol On Coumadin for chronic anticoagulation COPD: Advanced disease, with chronic hypoxic respiratory failure on 4 L oxygen at home Respiratory status to approximate baseline Continue nebulizer treatment Patient is on chronic oral prednisone CHRONIC RIGHT-SIDED HEART FAILURE/COR PULMONALE Due to advanced COPD Volume status stable Continue routine dialysis HYPOTHYROIDISM On levothyroxine TSH level within normal limit CHRONIC MULTIPLE STAGE III PRESSURE ULCERS ON EXTREMITIES: Present on admission Wound care following will continue to have close follow-up as an outpatient CODE STATUS: Full code DVT PROPHYLAXIS ON Coumadin DISPOSITION discharge home today Home health visiting nurse with [facility] home [facility] Total time spent on discharge = 45 MINS This includes examination of the patient, discharge planning, medication reconciliation, and communication with other providers. Discharge Instructions Discharge Instructions Date of Service Dec 20, 2017. Admission Reason for Admission: Infected Abd Wound Discharge Discharge Diagnosis / Problem: INFECTED RT ABDOMINAL WOUND /END STAGE RENAL DISEASE WITH DIALYSIS Discharge Goals Goal(s): Increase independence, Improve disease control, Diagnostic testing, Therapeutic intervention Activity Recommendations Activity Limitations: as noted below ( TOLERATED ) . Instructions / Follow-Up Instructions / Follow-Up HOSPITAL FOLLOW UP : 12/24/2017 @ 1:[address] Narendra Gonzalez MD [facility] Wound Follow-up Care * WOUND CLINIC [phone] TU 12/23/17 AT 1:40 pm YOUR IV ANTIBIOTIC IS NOW ONCE DAILY FOR TOTAL 14 DAYS FOLLOW UP WITH DR PHAM AT THE WOUND CLINIC Current Hospital Diet Patient's current hospital diet: Diabetes Type 2 Diet, AHA Diet (Heart Healthy) Discharge Diet Recommended Diet: AHA Diet (Heart Healthy), Diabetes Type 2 Diet, Low Potassium Diet (2g K) Procedures Procedures Performed: Insertion of roberts Catheter, Left Jugular Approach Ultrasound Localization of Left Jugular Vein Fluoroscopy for Positioning Moderate Sedation [id number] Pending Studies Studies pending at discharge: no Medical Emergencies . Who to Call and When: Medical Emergencies: If at any time you feel your situation is an emergency, please call 911 immediately. . Non-Emergent Contact Non-Emergency issues call your: Primary Care Provider (DR NARENDRA ROSARIO ) Contact Number: INCREASE DRAINAGE FORM THE WOUND PAIN AT THE WOUND SITE HAVING FEVER OR CHILLS PAIN AND SWELLING AND REDNESS NOTED AT THE ABDOMINAL WOUND . . "Provider Documentation" section prepared by Janice Mello. . Merchandise Shopper Recommendations Merchandise Shopper Recommendations: Wound CARE Instructions * INFECTED /DRAINING WOUND LEFT MEDIAL CALF, RIGHT POSTERIOR LEG, LEFT HIP, LEFT POSTERIOR THIGH AND RIGHT ABD- APPLY AQUACEL AG, COVER WITH AN OPTIFOAM, CHANGE EVERY OTHER DAY AND NEEDED. PLEASE NOTIFY WOUND CLINIC IF THERE IS EXCESS DRAINAGE -MAY NEED TO RE APPLY WOUND VAC Additional Copies To Narendra Gonzalez M.D., Jennifer. DNakiaO.
[2017-12-20 12:37] VITALS: BP 96/65; PULSE 88; TEMP 36.7; O2SAT 90
[2017-12-21] MEDS ORDERED: WARFARIN SOD 2.5 MG TAB PO SCH (16:00)
--- NOTE | 2017-12-22 09:40 | Wound Progress Note: Inpatient ---
Wound Progress Note Date of Service Dec 19, 2017. Subjective Patient was unable to be seen today due to her dialysis schedule. Patient will be followed and monitored in the outpatient clinic upon discharge.
== END 2017-12-20 15:40 | disposition home health service (06) | DRG 579 ==
LOC: C.MSN 14:38
PROVIDERS: ADMIT Internal Medicine; ATTEND Hospitalist
PROC: 02H Heart and Great Vessels, Insertion (ICD-10-PCS; principal; 2017-12-19 15:00)
PROC: B514ZZA Fluoroscopy of Left Jugular Veins, Guidance (ICD-10-PCS; principal; 2017-12-19 15:00)
PROC: 0JH63XZ Insertion of Tunneled Vascular Access Device into Chest Subcutaneous Tissue and Fascia, Percutaneous Approach (ICD-10-PCS; principal; 2017-12-19 15:00)
DX: S31.109A Unspecified open wound of abdominal wall, unspecified quadrant without penetration into peritoneal cavity, initial encounter (principal); L89.223 Pressure ulcer of left hip, stage 3; J44.9 Chronic obstructive pulmonary disease, unspecified; N18.6 End stage renal disease; I13.2 Hypertensive heart and chronic kidney disease with heart failure and with stage 5 chronic kidney disease, or end stage renal disease; J96.11 Chronic respiratory failure with hypoxia; Z99.81 Dependence on supplemental oxygen; Z79.52 Long term (current) use of systemic steroids; I50.9 Heart failure, unspecified; L89.893 Pressure ulcer of other site, stage 3; I48.2 Chronic atrial fibrillation; E11.21 Type 2 diabetes mellitus with diabetic nephropathy; Z99.2 Dependence on renal dialysis; E78.5 Hyperlipidemia, unspecified; B96.1 Klebsiella pneumoniae [K. pneumoniae] as the cause of diseases classified elsewhere; I27.20 Pulmonary hypertension, unspecified; Z88.1 Allergy status to other antibiotic agents; Z88.8 Allergy status to other drugs, medicaments and biological substances; Z88.2 Allergy status to sulfonamides; Z88.5 Allergy status to narcotic agent; E03.9 Hypothyroidism, unspecified; Z16.24 Resistance to multiple antibiotics; I50.812 Chronic right heart failure; X58.XXXA Exposure to other specified factors, initial encounter; Y92.019 Unspecified place in single-family (private) house as the place of occurrence of the external cause

== ENCOUNTER → 2017-12-30 | Outpatient (CLI) | payer OTHER ==
[~2017-12-30] MED LIST changes: -CEFD1CAP14 PO; -CIPR1TAB11 PO; +[UNRECOGNIZED DRUG - CODE]; +[UNRECOGNIZED DRUG - CODE] IV
--- NOTE | 2017-12-30 16:53 | DIAGNOSTIC IMAGING REPORT ---
CHEST 2 VIEWS ROUTINE CLINICAL HISTORY: J20.9 Acute [id number] COMPARISON STUDY: 12/15/2017 FINDINGS: The heart is enlarged. There is a right-sided dual-lumen central venous catheter. There is been interval placement of a single lumen left-sided central venous catheter. There is no pneumothorax. There are right basilar atelectatic changes. There is a trace right pleural effusion.[ There is a mid to lower thoracic compression deformity. IMPRESSION: 1. Interval placement of a left sided central venous catheter. No evidence of pneumothorax 2. Persistent cardiomegaly 3. Trace right pleural effusion 4. Right lower lobe airspace opacities likely atelectatic Electronically signed by: Rohan Barnes M.D. 12/30/2017 4:51 PM Dictated Date/Time: 12/30/2017 4:50 PM
== END | disposition home or self-care (01) ==
LOC: C.RAD1850 16:38
PROVIDERS: ATTEND Physician Assistant
DX: J20.9 Acute bronchitis, unspecified (principal); I51.7 Cardiomegaly; J90 Pleural effusion, not elsewhere classified

== ENCOUNTER → 2018-04-16 | Outpatient (CLI) | payer OTHER ==
[~2018-04-16] MED LIST changes: +ALBINS/ INH; +ALBU18002 INH; -ASPI81TA28 PO; -CALC0.2510 PO; +CEFD1CAP14 PO; +CEFD300C2 PO; -CYAN10005 PO; +DOXY-300 PO; -SNTO30 TOP; -SPRIN/30 INH; +UMEC1AER INH; +WARF5TAB7 PO; -WARF5TAB90 PO; -[UNRECOGNIZED DRUG - CODE]; -[UNRECOGNIZED DRUG - CODE] IV
--- NOTE | 2018-04-16 09:51 | DIAGNOSTIC IMAGING REPORT ---
CHEST 2 VIEWS ROUTINE CLINICAL HISTORY: R07.89 Burning in the [id number] dyspnea COMPARISON STUDY: 02/23/2018 FINDINGS: Mild cardia megaly. This is stable from the prior exam. PermCath in superior vena cava. Unchanged atelectatic change right lung base. Lungs otherwise appear clear. IMPRESSION: 1. Stable cardiomegaly.. 2. Stable atelectatic change right base. The above report was generated using voice recognition software. It may contain grammatical, syntax or spelling errors. Electronically signed by: Bird Patino M.D. 04/16/2018 9:50 AM Dictated Date/Time: 04/16/2018 9:49 AM
== END | disposition home or self-care (01) ==
LOC: C.RAD1850 09:35
PROVIDERS: ATTEND Physician Assistant
DX: R07.89 Other chest pain (principal)

== ENCOUNTER 2018-12-18 10:12 | Inpatient (IN) ==
[2018-12-18] MEDS ORDERED: ALBUT/IPRATROP 3MG/0.5MG NEB 3 ML VIAL INH STA (10:30)
[2018-12-18] MEDS ORDERED: methylPREDNISolone 60 MG in SYRINGE 1 ML IV STA (10:30)
[2018-12-18] MEDS ORDERED: CEFEPIME 2,000 MG in SYRINGE 7.5 ML IV STA (10:30)
[2018-12-18 11:04] LABS: Basophils # (auto) 0.07 K/uL (0-0.2); Basophils % (auto) 0.3 %; Eosinophils # (auto) 0.11 K/uL (0-0.5); Eosinophils % (auto) 0.5 %; Immature Granulocytes # (auto) 0.51 K/uL (0.00-0.02); Immature Granulocytes % (auto) 2.4 %; Lymphocytes # (auto) 1.16 K/uL (1.2-3.4); Lymphocytes % (auto) 5.5 %; Mean Corpuscular Hgb Conc 32.4 g/dL (32-36); Mean Corpuscular Volume 90.7 fL (80-100); Monocytes # (auto) 2.53 K/uL (0.11-0.59); Neutrophils # (auto) 16.68 K/uL (1.4-6.5); Neutrophils % (auto) 79.3 %; Platelet Count 152 K/uL (130-400); RDW Coefficient of Variation 18.9 % (11.5-14.5); RDW Standard Deviation 62.6 fL (36.4-46.3); Red Blood Count 4.08 M/uL (4.2-5.4); White Blood Count 21.06 K/uL (4.8-10.8)
--- NOTE | 2018-12-18 11:09 | XRay Report ---
XR chest 1V portable CLINICAL HISTORY: Shortness of breath. COMPARISON STUDY: Chest radiograph and chest CT August 12, 2018. FINDINGS: Right lower lung opacity is noted. Right internal jugular catheter is in place. Patient is rotated. There is no pneumothorax or pleural effusion. There is no evidence for pulmonary edema. Car diomegaly is unchanged. Patient is rotated. IMPRESSION: 1. Right lower lung opacity which may reflect atelectasis or consolidation. 2. Cardiomegaly without evidence for pulmonary edema. Electronically signed by: Reginald Champion M.D. 12/18/2018 11:08 AM
[2018-12-18] MEDS ORDERED: SODIUM CHLORIDE 0.9% 1000ML 500 ML IV ONE (11:15)
[2018-12-18 11:21] LABS: BUN Creatinine Ratio 7.7 (10-20); Calcium 7.9 mg/dl (8.5-10.1); Creatinine Clr Calc Pharmacy 22.4 ml/min; Est GFR (African American) 18.6; Est GFR (Non-African American) 16.1; Magnesium 1.9 mg/dl (1.8-2.4); Potassium 4.1 mmol/L (3.5-5.1)
[2018-12-18 11:25] LABS: INR 3.2 (0.9-1.1); Partial Thromboplastin Ratio 3.3; Prothrombin Time 30.4 Seconds (9.0-12.0)
[2018-12-18 11:31] LABS: Albumin Globulin Ratio 0.7 (0.9-2); Bilirubin,Total 0.4 mg/dl (0.2-1); Globulin 4.1 gm/dl (2.5-4.0); Total Protein 7.1 gm/dl (6.4-8.2)
[2018-12-18 11:33] LABS: Troponin I 0.119 ng/ml (0-0.045)
[2018-12-18 11:35] LABS: Partial Thromboplastin Time 90.2 Seconds (21.0-31.0)
[2018-12-18 11:53] LABS: Influenza A virus by PCR Neg for Influ A (Neg); Influenza B virus by PCR Neg for Influ B (Neg)
--- NOTE | 2018-12-18 12:47 | History & Physical Report ---
Date of Service December 18, 2018 Assessment & Plan (1) Pneumonia: RLL opacity on chest x-ray - failed outpatient therapy with prednisone and cefdinir - Start IV Zosyn - pharmacy to dose - Solumedrol 40 mg IV Q8 hours - ATC DuoNebs with additional up to Q2 hours prn - Baseline oxygen requirement is 3-4 LPM - continue while admitted (2) Acute and chronic respiratory failure with hypoxia: See above plan of care - Suspect component of Right CHF contributing to respiratory symptoms (3) Hypotension: Chronic issue with HD - on midodrine - Continue outpatient dose of midodrine and monitor - Appreciate nephrology input as well (4) Elevated troponin: Suspect demand ischemia due to pneumonia (NSTEMI, type II) - Follow troponins Q6 hours - repeat EKG if chest pain and in AM - Monitor on telemetry (5) Atrial fibrillation: On chronic Coumadin as outpatient but INR supratherapeutic today - HOLD Coumadin for now - Daily INR - No additional DVT prophylaxis ordered at this time but will need to follow INR closely (6) DM type 2 (diabetes mellitus, type 2): - Spoke with pharmacist - will consult for glycemic management, particularly since pt on solumedrol (7) RHF (right heart failure): Pt with history of chronic right-sided CHF - suspect component of pt's symptoms related to volume overload although did have 1.5 liters removed during HD today - Check ECHO (8) ESRD (end stage renal disease) on dialysis: - Consult nephrology for HD management including volume control (9) Hypothyroidism: - Continue outpatient levothyroxine (10) HLD (hyperlipidemia): - Continue atorvastatin as taken outpatient (11) Neuropathy: - Continue gabapentin (12) Decubitus ulcer, buttock: Noted by nursing on admission assessment - may be contributing to leukocytosis - Covered with IV Zosyn - Consult wound care nurse for any additional recommendations Pt seen and reviewed with collaborating physician. Plan of care discussed and as outlined above. Updated [facility] physician, Dr. Akins for continuity of care. Present on Admission?: Yes History of Present Illness Primary Care Provider: PCP - Narendra Gonzalez This is a 63 y/o female with a PMH of chronic hypoxic respiratory failure on 4L of O2 via NC, obesity hypoventilation syndrome, pulmonary hypertension, chronic right heart failure, atrial fibrillation on Coumadin, ESRD on HD (M/W/F), DM II, hypotension on midodrine, dyslipidemia, hypothyroidism who presented to the ED today with progressive dyspnea while on HD this AM. Pt has been developing pro gressive respiratory symptoms for the past several days. Seen by case finishing machine adjuster on 12/11 while on dialysis for acute COPD exacerbation. Pt was also noted to have difficulty keeping her nebulzer and bipap equipment clean at that time and [facility]. She was started on rescue kit of prednisone and cefdinir that day. Seen again by [facility] team yesterday, Dr. Akins, for follow-up at which point she continued to complain of productive cough and wheezing. Cefdinir was stopped and patient start on levofloxacin 250 mg after dialysis. Today patient was on HD when she apparently became more short of breath - given a neb treatment without significant improvement so sent to the ED. Currently, pt is seen sitting up in bed as she reports lying flat makes her breathing worse. She reports a sore area on her buttocks so prefers to lean to her right side. She denies chest pain, ARNOLD, vision changes, palpitations, fevers. She has noted a cough - yesterday productive of large amounts of yellow non-bloody sputum but non- productive today. She has noted some chest tightness and wheezing. No N/V/D. Allergies Allergy/AdvReac Type Severity Reaction Status Date / Time bacitracin Allergy Intermediate RASH,ITCH Verified 12/18/18 10:24 celecoxib Allergy Intermediate RASH TO Verified 12/18/18 10:24 SULFA DRUGS neomycin Allergy Intermediate RASH,ITCH Verified 12/18/18 10:24 polymyxin B Allergy Intermediate RASH,ITCH Verified 12/18/18 10:24 Sulfa (Sulfonamide Allergy Intermediate RASH,HAS Verified 12/18/18 10:24 Antibiotics) TAKEN GLIPIZIDE W/O REACTION tigecycline AdvReac Severe MILD Verified 12/18/18 10:24 PANCREATITIS codeine AdvReac Intermediate GI UPSET Verified 12/18/18 10:24 Home Medications Home Medications Medication Instructions Recorded Confirmed Type albuterol sulfate 2.5 mg/3 mL 1.25 mg INH Q4H PRN 06/01/18 12/18/18 History (0.083 %) solution for nebulization albuterol sulfate HFA 90 2 puffs INH Q6H PRN 06/01/18 12/18/18 History mcg/actuation aerosol inhaler ascorbic acid (vitamin C) 500 mg 500 mg PO DAILY cap 06/01/18 12/18/18 History capsule atorvastatin 40 mg tablet 40 mg PO HS 06/01/18 12/18/18 History cholecalciferol (vitamin D3) 1,000 1,000 units PO DAILY 06/01/18 12/18/18 History unit capsule gabapentin 400 mg capsule 400 mg PO BID 06/01/18 12/18/18 History hydrocodone 5 mg-acetaminophen 325 1 tab PO Q6H PRN 06/01/18 12/18/18 History mg tablet insulin glargine (U-100) 100 52 units SQ HS 06/01/18 12/18/18 History unit/mL (3 mL) subcutaneous pen levothyroxine 125 mcg tablet 125 mcg PO QAM 06/01/18 12/18/18 History magnesium oxide 400 mg (241.3 mg 400 mg PO DAILY tab 06/01/18 12/18/18 History magnesium) tablet metoprolol succinate ER 25 mg 25 mg PO HS 06/01/18 12/18/18 History capsule sprinkle, ext. release 24 hr pantoprazole 20 mg tablet,delayed 20 mg PO QAM 06/01/18 12/18/18 History release sertraline 100 mg tablet 150 mg PO DAILY tab 06/01/18 12/18/18 History Anoro Ellipta 1 inh INHALATION DAILY 06/22/18 12/18/18 History docusate sodium [Colace] 100 mg PO BID 06/22/18 12/18/18 History nystatin 1 applic TOPICAL BID 06/22/18 12/18/18 History prednisone 5 mg PO DAILY 06/22/18 12/18/18 History lorazepam 0.5 mg PO UD PRN 07/15/18 12/18/18 History [place] Caps 1 cap PO DAILY 08/12/18 12/18/18 History warfarin 5 mg PO 3XWK 08/12/18 12/18/18 History midodrine 5 mg PO TID #90 tab 08/14/18 12/18/18 Rx warfarin 7.5 mg PO 4XWK 12/18/18 12/18/18 History Past Med/Surg History Medical History Chronic knee pain (Chronic) COPD exacerbation (Resolved) Sleep apnea (Chronic) Chronic anemia (Chronic) Pneumonia (Acute) Generalized weakness (Resolved) Iron (Fe) deficiency anemia (Chronic) Morbid obesity (Chronic) Obesity hypoventilation syndrome (Chronic) Pressure ulcer Atrial fibrillation (Chronic) Pulmonary HTN (Chronic) COPD (chronic obstructive pulmonary disease) (Chronic) DM type 2 (diabetes mellitus, type 2) (Chronic) HTN (hypertension) (Chronic) RHF (right heart failure) (Chronic) Chronic respiratory failure with hypoxia (Chronic) ESRD (end stage renal disease) on dialysis (Chronic) Hypothyroidism (Chronic) Depression (Chronic) HLD (hyperlipidemia) (Chronic) Neuropathy (Chronic) Diabetic gastroparesis (Chronic) H/O deep venous thrombosis (Resolved) ESRD (end stage renal disease) on dialysis (Inactive) Surgical History History of tracheostomy History of hernia repair (Resolved) Status post laparoscopic cholecystectomy (Resolved) S/P debridement (Chronic) "08/30/2016- debridement bilateral lower extremity and buttock wounds" Hx of cholecystectomy (Resolved) Family History Other CKD (chronic kidney disease) Coronary heart disease Social History Communication Ability: Effective Beliefs That Will Affect Care: None marital status: Current Living Situation: Spouse Feels Safe at Home: Yes Smoking Status: Former smoker Hx Alcohol Use: No Hx Substance Use: No Review of Systems All systems reviewed & are unremarkable except as noted in HPI & below Constitutional: + fatigue, + malaise and + weakness; no fever and no anorexia Eyes: no diplopia and no worsening vision Ear, Nose, Mouth, Throat: + nasal congestion and + sore throat; no dysphagia Respiratory: + cough, + chest congestion, + dyspnea and + wheezing Cardiovascular: + lightheadedness and + edema (chronic); no chest pain, no palpitations and no calf pain Gastrointestinal: no abdominal pain, no nausea, no vomiting and no diarrhea/loose stools Chronic anuria since on HD Musculoskeletal: + back pain Integumentary: + skin ulcer (chronic) Neurologic: + unsteadiness and + generalized weakness; no tremor(s), no seizure- like activity and no headache(s) Peripheral neuropathy in LE - burning sensation with numbness Insulin-requiring diabetes Physical Exam Vital Signs (Past 24 Hours): Last Vital Signs Temp 37.2 C 12/18/18 10:20 Pulse 82 12/18/18 11:32 Resp 24 12/18/18 11:32 BP 130/68 12/18/18 11:32 Pulse Ox 98 12/18/18 11:32 Constitutional: well developed, well nourished and + obese; no acute distress and no altered mental status Eyes: PERRL, conjunctivae normal, anicteric sclerae ENMT: external ear and nose normal, oropharynx normal Neck: trachea midline Respiratory: + tachypneic (mild (24-28)); does not use accessory muscles Auscultation: + rhonchi (throughout) and + wheezes (throughout) Cardiovascular: Rate/Rhythm: regular rate and regular rhythm Heart Sounds: no gallop and no cardiac rub Extremities: + edema (trace to 1+ LE edema); no calf tenderness Gastrointestinal (Abdomen): Inspection/Auscultation: normal bowel sounds; abdomen not distended Percussion/Palpation: abdomen soft; abdomen nontender Musculoskeletal: Extremities: no cyanosis and no clubbing Pt leaning to right side repeatedly during exam - reports sore area on buttocks and feels more comfortable this way. Skin: Chronic stasis changes bilateral LE Neurologic: moves all extremities Cranial Nerves: tongue midline Psychiatric: A+Ox3, euthymic affect Results & Data Laboratory Results Laboratory Results - last 24 hr 12/18/18 12/18/18 12/18/18 10:45 10:45 10:45 WBC 21.06 H RBC 4.08 L Hgb 12.0 Hct 37.0 MCV 90.7 MCH 29.4 MCHC 32.4 RDW Std Deviation 62.6 H RDW Coeff of Yogi 18.9 H Plt Count 152 MPV 10.0 Immature Gran % (Auto) 2.4 Neut % (Auto) 79.3 Lymph % (Auto) 5.5 [place] % (Auto) 12.0 Eos % (Auto) 0.5 Baso % (Auto) 0.3 Immature Gran # (Auto) 0.51 H Neut # (Auto) 16.68 H Lymph # (Auto) 1.16 L [place] # (Auto) 2.53 H Eos # (Auto) 0.11 Baso # (Auto) 0.07 PT 30.4 H INR 3.2 H APTT 90.2 H* PTT Ratio 3.3 Sodium 133 L Potassium 4.1 Chloride 98 Carbon Dioxide 26 Anion Gap 9.0 BUN 23 H Creatinine 2.95 H Est Cr Clr Drug Dosing 22.4 Est GFR ( Amer) 18.6 Est GFR (Non-Af Amer) 16.1 BUN/Creatinine Ratio 7.7 L Glucose 88 Lactate Calcium 7.9 L Magnesium 1.9 Total Bilirubin 0.4 AST 25 ALT 48 Alkaline Phosphatase 160 H Troponin I 0.119 H* Total Protein 7.1 Albumin 3.0 L Globulin 4.1 H Albumin/Globulin Ratio 0.7 L Influenza Type A (PCR) Influenza Type B (PCR) 12/18/18 12/18/18 10:45 11:08 WBC RBC Hgb Hct MCV MCH MCHC RDW Std Deviation RDW Coeff of Yogi Plt Count MPV Immature Gran % (Auto) Neut % (Auto) Lymph % (Auto) [place] % (Auto) Eos % (Auto) Baso % (Auto) Immature Gran # (Auto) Neut # (Auto) Lymph # (Auto) [place] # (Auto) Eos # (Auto) Baso # (Auto) PT INR APTT PTT Ratio Sodium Potassium Chloride Carbon Dioxide Anion Gap BUN Creatinine Est Cr Clr Drug Dosing Est GFR ( Amer) Est GFR (Non-Af Amer) BUN/Creatinine Ratio Glucose Lactate 1.8 Calcium Magnesium Total Bilirubin AST ALT Alkaline Phosphatase Troponin I Total Protein Albumin Globulin Albumin/Globulin Ratio Influenza Type A (PCR) Neg for Influ A Influenza Type B (PCR) Neg for Influ B Diagnostic Findings Chest X-ray 12/18/18 - IMPRESSION: 1. Right lower lung opacity which may reflect atelectasis or consolidation. 2. Cardiomegaly without evidence for pulmonary edema. Medications Administered Discontinued Medications Albuterol (Duoneb) 3 ml INH NOW STA Stop: 12/18/18 10:31 Last Admin: 12/18/18 11:10 Dose: 3 ml Documented by: [id number] Cefepime HCl 2,000 mg/ Syringe 20 mls @ 5.5 mls/min IV NOW STA Stop: 12/18/18 10:33 Last Admin: 12/18/18 11:10 Dose: 5.5 mls/min Documented by: [id number] Methylprednisolone 60 mg/ (Syringe) 1.96 mls @ 1.5 mls/min IV NOW STA Stop: 12/18/18 10:31 Last Admin: 12/18/18 11:10 Dose: 1.5 mls/min Documented by: [id number] Sodium Chloride (Nss 1000ml) 500 mls @ 999 mls/hr IV .Q31M ONE Stop: 12/18/18 11:45 Last Infusion: 12/18/18 12:21 Dose: 0 mls/hr Documented by: [id number] Admin: 12/18/18 11:54 Dose: 999 mls/hr Documented by: [id number] Supervising Physician Co-Signing Physician Notes I have seen and examined the patient and have discussed the case with the provider above. I agree with the assessment and plan as stated. 63 yo obese female on HD who is anuric presents with worsening SOB at rest. Her baseline exercise tolerance is walking ten steps and then stopping to rest and she feels her breathing is worse since being "sick all week" last week. She also reports a worsening of her neuropathic pain after having her gabapentin decreased in dosage by PCP who thought this was making her fatigued. She is now back on the 300mg dose, but neuropathic pain is severe today after not taking her medications yet today. She is otherwise eating well per her report and has no n/v/d/f/c. She is mentating well on physical exam and is able to sit up with some assistance needed. She is obese, lungs are clear to auscultation and she is moving good air. No peripheral edema but there is a woody appearance to the skin related to h/o swelling in the past. Cont plan as above. TTE pending. DO Fernando (1) DM type 2 (diabetes mellitus, type 2) Diabetes mellitus complication detail: with polyneuropathy Diabetes mellitus complication status: with neurologic complications Diabetes mellitus matrix plater insulin use: with snf use Qualified Code(s): E11.42 - Type 2 diabetes mellitus with diabetic polyneuropathy; Z79.4 - assisted (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 (2) Atrial fibrillation Atrial fibrillation type: paroxysmal Qualified Code(s): I48.0 - Paroxysmal atrial fibrillation (3) HLD (hyperlipidemia) Hyperlipidemia type: unspecified Qualified Code(s): E78.5 - Hyperlipidemia, unspecified (4) Hypothyroidism Hypothyroidism type: unspecified Qualified Code(s): E03.9 - Hypothyroidism, unspecified (5) RHF (right heart failure) Heart failure chronicity: unspecified Qualified Code(s): I50.810 - Right heart failure, unspecified (6) Hypotension Hypotension type: hemodialysis-associated hypotension Qualified Code(s): I95.3 - Hypotension of hemodialysis (7) Pneumonia Laterality: right Lung location: lower lobe of lung Pneumonia type: due to unspecified organism Qualified Code(s): J18.1 - Lobar pneumonia, unspecified organism
[2018-12-18] MEDS ORDERED: ONDANSETRON INJ 2 MG/ML 2 ML VIAL IV PRN (14:14)
[2018-12-18] MEDS ORDERED: ACETAMINOPHEN 325 MG TAB PO PRN (14:14)
[2018-12-18] MEDS ORDERED: PIPERACILL/TAZOBAC CONSULT ACTIVE PRN (14:40)
[2018-12-18] MEDS ORDERED: PHARMACY GLYCEMIC MGMT CONSULT PRN (15:07)
[2018-12-18] MEDS ORDERED: CARBOHYDRATES FOR HYPOGLYCEMIA PO PRN (15:15)
[2018-12-18] MEDS ORDERED: GLUCAGON FOR INJ 1 MG VIAL IM PRN (15:15)
[2018-12-18] MEDS ORDERED: DEXTROSE 50% 50 ML SYRINGE IV PRN (15:15)
[2018-12-18] MEDS ORDERED: GLUCOSE 40% GEL 15 GM TUBE PO PRN (15:15)
[2018-12-18] MEDS ORDERED: GLUCOSE 10 TABS/TUBE PO PRN (15:15)
--- NOTE | 2018-12-18 15:18 | Pharmacy Report ---
Glycemic Control Consultation - Date of Service December 18, 2018 - Scope Scope: Glycemic Pharmacist consulted by Sharon Victoria on 12/18/18 for glycemic control and to write orders per [facility] inpatient glycemic control protocol - Objective Weight: 102 kg Accuchecks BSG (last 24hrs): 12/18/18 12/18/18 10:45 14:34 Glucose 88 POC Glucose 137 H Laboratory Data (last 24hrs): 12/18/18 10:45 Potassium 4.1 Carbon Dioxide 26 Anion Gap 9.0 Creatinine 2.95 H Est Cr Clr Drug Dosing 22.4 - Recent Pertinent Medications Outpatient Anti-diabetic Regimen: * Lantus 52 units daily * confirmed this with patient - higher than normal dose since patient was on steroids (pred 40) at home. She was not taking Novolog as the pharmacist at [facility] directing care told her not to. * A1c not appropriate since dialysis patient. Risk Factors for Insulin Resistance: * Steroids: Solu-Medrol 60 mg IV x 1 then 40 mg IV q8 * Infection: Zosyn * Diet: T2DM - Assessment & Plan Assessment & Plan: ASSESSMENT: * Ms Blevins is a 63 y/o F with a PMH of T2DM who presents with possible pneumonia. She is on HD MWF and is well known to the glycemic service. Previuous regimens suggest that while patient is on Solu-Medrol she requires around 80 units of insulin with Lantus 20 units and Novolog around CF of 12 and CR of 4. Will utilize these parameters while patient is hospitalized. * Patient's A1c = ?%. * However, this result is likely somewhat unreliable in ESRD patients d/t interactions between the A1c analyzing technique and high levels of urea in ESRD, reduced RBC life span, iron deficiency anemia, and EPO administration. HbA1c > 7.5% in ESRD patient may overestimate the extent of hyperglycemia in ESRD patients. PLAN FOR INPATIENT GLYCEMIC CONTROL: * Starting Lantus 20 units SQ HS * Starting correction factor of 12 mg/dl/unit * Starting carb ratio of 1 unit per 4 grams CHO consumed * Continuing goal range of Low 110 mg/dL - High 140 mg/dL * Please note that the plan above was derived based on current level of insulin resistance and hospital stress. These recommendations are appropriate for inpatient admission only. Plan of care upon discharge will need to be reassessed to avoid potential outpatient hypo/hyperglycemia. Thank you.
[2018-12-18] MEDS: ALBUT/IPRATROP 3MG/0.5MG NEB 3 ML VIAL NEB SCH ×2 (15:23→19:23)
[2018-12-18] MEDS ORDERED: INSULIN ASPART 100 UNITS/ML 3 ML PEN SC ONE (15:30)
[2018-12-18] MEDS ORDERED: PIPERACILLIN/TAZOBACTAM 4.5 GM in DEXTROSE 5% 100 ML IV ONE (16:00)
[2018-12-18] MEDS ORDERED: HYDROCODONE/ACETAMOPHEN 5/325MG TAB PO STA (16:29)
--- NOTE | 2018-12-18 16:57 | Emergency Department Note ---
Entered by Karly De La Torre acting as a scribe for Preet Ware MD History of Present Illness General Chief complaint: Shortness of Breath/Dyspnea Time Seen by Provider: 12/18/18 10:19 Source: patient and other (Nurse) History of Present Illness Onset (ago): day(s) 5 Location: left (Lung) and right (Lung) Severity: similar to prior episodes Pain Consistency: + other (Persistent) Quality: + other (Shortness of breath) Relieved By: not by other (Nebulizer treatment) Associated symptoms: + cough, + fever/chills and + shortness of breath Treatments prior to arrival: other (Nebulizer treatment) The patient is a 63 year old female who presents to the Emergency Room with complaints of persistent shortness of breath starting 5 days ago. The nurse reports that the patient was sent to the ED from her dialysis treatment. She states that while at dialysis the patient was short of breath, wheezing, coughing and had a low grade temperature. She notes that 1.7L of fluid was taken off at dialysis and that the patient is still feeling short of breath. She adds that the patient usually uses 3 to 4 L of supplemental oxygen at home. The pa kris reports that she is short of breath. She states that she received a nebulizer treatment [employer] that did not help her shortness of breath. She adds that she has COPD and has experienced these symptoms before. Home Medications Home Medications Medication Instructions Recorded Confirmed Type albuterol sulfate 2.5 mg/3 mL 1.25 mg INH Q4H PRN 06/01/18 12/18/18 History (0.083 %) solution for nebulization albuterol sulfate HFA 90 2 puffs INH Q6H PRN 06/01/18 12/18/18 History mcg/actuation aerosol inhaler ascorbic acid (vitamin C) 500 mg 500 mg PO DAILY cap 06/01/18 12/18/18 History capsule atorvastatin 40 mg tablet 40 mg PO HS 06/01/18 12/18/18 History cholecalciferol (vitamin D3) 1,000 1,000 units PO DAILY 06/01/18 12/18/18 History unit capsule gabapentin 400 mg capsule 400 mg PO BID 06/01/18 12/18/18 History hydrocodone 5 mg-acetaminophen 325 1 tab PO Q6H PRN 06/01/18 12/18/18 History mg tablet insulin glargine (U-100) 100 52 units SQ HS 06/01/18 12/18/18 History unit/mL (3 mL) subcutaneous pen levothyroxine 125 mcg tablet 125 mcg PO QAM 06/01/18 12/18/18 History magnesium oxide 400 mg (241.3 mg 400 mg PO DAILY tab 06/01/18 12/18/18 History magnesium) tablet metoprolol succinate ER 25 mg 25 mg PO HS 06/01/18 12/18/18 History capsule sprinkle, ext. release 24 hr pantoprazole 20 mg tablet,delayed 20 mg PO QAM 06/01/18 12/18/18 History release sertraline 100 mg tablet 150 mg PO DAILY tab 06/01/18 12/18/18 History Anoro Ellipta 1 inh INHALATION DAILY 06/22/18 12/18/18 History docusate sodium [Colace] 100 mg PO BID 06/22/18 12/18/18 History nystatin 1 applic TOPICAL BID 06/22/18 12/18/18 History prednisone 5 mg PO DAILY 06/22/18 12/18/18 History lorazepam 0.5 mg PO UD PRN 07/15/18 12/18/18 History [place] Caps 1 cap PO DAILY 08/12/18 12/18/18 History warfarin 5 mg PO 3XWK 08/12/18 12/18/18 History midodrine 5 mg PO TID #90 tab 08/14/18 12/18/18 Rx warfarin 7.5 mg PO 4XWK 12/18/18 12/18/18 History Allergies Allergy/AdvReac Type Severity Reaction Status Date / Time bacitracin Allergy Intermediate RASH,ITCH Verified 12/18/18 10:24 celecoxib Allergy Intermediate RASH TO Verified 12/18/18 10:24 SULFA DRUGS neomycin Allergy Intermediate RASH,ITCH Verified 12/18/18 10:24 polymyxin B Allergy Intermediate RASH,ITCH Verified 12/18/18 10:24 Sulfa (Sulfonamide Allergy Intermediate RASH,HAS Verified 12/18/18 10:24 Antibiotics) TAKEN GLIPIZIDE W/O REACTION tigecycline AdvReac Severe MILD Verified 12/18/18 10:24 PANCREATITIS codeine AdvReac Intermediate GI UPSET Verified 12/18/18 10:24 Past Med/Surg History Medical History Chronic knee pain (Chronic) COPD exacerbation (Resolved) Sleep apnea (Chronic) Chronic anemia (Chronic) Pneumonia (Acute) Generalized weakness (Resolved) Iron (Fe) deficiency anemia (Chronic) Morbid obesity (Chronic) Obesity hypoventilation syndrome (Chronic) Pressure ulcer Atrial fibrillation (Chronic) Pulmonary HTN (Chronic) COPD (chronic obstructive pulmonary disease) (Chronic) DM type 2 (diabetes mellitus, type 2) (Chronic) HTN (hypertension) (Chronic) RHF (right heart failure) (Chronic) Chronic respiratory failure with hypoxia (Chronic) ESRD (end stage renal disease) on dialysis (Chronic) Hypothyroidism (Chronic) Depression (Chronic) HLD (hyperlipidemia) (Chronic) Neuropathy (Chronic) Diabetic gastroparesis (Chronic) H/O deep venous thrombosis (Resolved) ESRD (end stage renal disease) on dialysis (Inactive) Surgical History History of tracheostomy History of hernia repair (Resolved) Status post laparoscopic cholecystectomy (Resolved) S/P debridement (Chronic) "08/30/2016- debridement bilateral lower extremity and buttock wounds" Hx of cholecystectomy (Resolved) Family History Other CKD (chronic kidney disease) Coronary heart disease Social History Communication Ability: Effective Beliefs That Will Affect Care: None marital status: Current Living Situation: Spouse Feels Safe at Home: Yes Smoking Status: Former smoker Hx Alcohol Use: No Hx Substance Use: No Review of Systems See HPI for pertinent positives & negatives. and A total of 10 systems reviewed and were otherwise negative Physical Exam Vital Signs Vital Signs - 24 hr 12/18/18 10:20 12/18/18 11:32 12/18/18 14:14 Temperature 37.2 C 37.2 C Temperature Source Oral Oral Sepsis Recent Fever Within 48 Hours No Sepsis New/Unexplained Change in Mental Status No Sepsis Action Taken by Nursing No Action Required Pulse Rate 86 82 Pulse Rate [Right Finger] 82 79 Respiratory Rate 24 24 20 Respiratory Effort / Characteristics Labored Spontaneous Respiratory Depth Normal Respiratory Pattern Regular Blood Pressure 87/50 L Blood Pressure [Right Arm] 130/68 99/53 L Blood Pressure Mean 62 Blood Pressure Mean [Right Arm] 88 68 Blood Pressure Position Sitting Blood Pressure Position [Right Arm] Lying Pulse Oximetry 91 98 93 Oxygen Delivery Method Nasal Cannula Nasal Cannula Oxymask Oxygen Flow Rate 4 4 12/18/18 15:24 12/18/18 16:01 12/18/18 16:03 Temperature 36.8 C Temperature Source Oral Sepsis Recent Fever Within 48 Hours Sepsis New/Unexplained Change in Mental Status Sepsis Action Taken by Nursing Pulse Rate 85 Pulse Rate [Right Finger] 83 77 Respiratory Rate 20 19 Respiratory Effort / Characteristics Non-Labored Spontaneous Respiratory Depth Normal Respiratory Pattern Blood Pressure Blood Pressure [Right Arm] 113/68 Blood Pressure Mean Blood Pressure Mean [Right Arm] 83 Blood Pressure Position Blood Pressure Position [Right Arm] Lying Pulse Oximetry 86 L 94 Oxygen Delivery Method Nasal Cannula Nasal Cannula Oxygen Flow Rate 4 5 GENERAL: Patient is in no acute distress. HEENT: No acute trauma, normocephalic atraumatic, mucous membranes dry, no nasal congestion, no scleral icterus. NECK: No stridor, no adenopathy, no meningismus, trachea is midline. LUNGS: No respiratory distress. Breath sounds are equal. Wheezes bilaterally. HEART: 2/6 systolic murmur. Regular rate and rhythm. ABDOMEN: Soft, nontender, bowel sounds positive, no hernias, no peritonitis. EXTREMITIES: No cyanosis, full range of motion of all the joints without pain or difficulty, no signs for acute trauma. Mild bilateral pedal edema with mild erythema and warmth bilaterally reportedly chronic. NEUROLOGIC: Oriented x 3, no acute motor or sensory deficits, no focal weakness. SKIN: No rash, no jaundice, no diaphoresis. Course 1025: The patient was evaluated in room C12A, and a complete history and physical examination were performed. 1135: I reevaluated the patient at this time. We discussed her disposition. 1247: I reviewed the patient's case with Dr. Fernando MEEHAN hospitalist. He will evaluate the patient for further management. Consultations Consultation #1: I reviewed the patient's case with Dr. Fernando MEEHAN hospitalist. He will evaluate the patient for further management. Time: 12:47 Administered Medications Albuterol (Duoneb) 3 ml NEB QIDR [facility] Stop: 01/17/19 15:59 Last Admin: 12/18/18 15:23 Dose: 3 ml Documented by: [id number] Gabapentin (Neurontin) 300 mg PO [id number] [facility] Stop: 01/17/19 17:59 Last Admin: 12/18/18 17:13 Dose: Not Given Documented by: [id number] Methylprednisolone 40 mg/ (Syringe) 0.64 mls @ 1.5 mls/min IV Q8H [facility] Stop: 01/17/19 17:59 Last Admin: 12/18/18 17:08 Dose: 1.5 mls/min Documented by: [id number] Insulin Aspart (Novolog Flexpen) 0 units SC ACHS [facility] Stop: 01/17/19 16:29 Last Admin: 12/18/18 17:17 Dose: 11 units Documented by: [id number] Cosigned by: [id number] Miscellaneous (Order Awaiting Action) 1 ea N/A QS [facility] Stop: 01/17/19 15:59 Last Admin: 12/18/18 17:14 Dose: Not Given Documented by: [id number] Discontinued Medications Hydrocodone Bitart/Acetaminophen ([place] 5/325) 1 tab PO ONE STA Stop: 12/18/18 16:30 Last Admin: 12/18/18 17:14 Dose: 1 tab Documented by: [id number] Albuterol (Duoneb) 3 ml INH NOW STA Stop: 12/18/18 10:31 Last Admin: 12/18/18 11:10 Dose: 3 ml Documented by: [id number] Gabapentin (Neurontin) 300 mg PO MoWeFr@2000 [facility] Stop: 01/17/19 19:59 Last Admin: 12/18/18 17:08 Dose: 300 mg Documented by: [id number] Cefepime HCl 2,000 mg/ Syringe 20 mls @ 5.5 mls/min IV NOW STA Stop: 12/18/18 10:33 Last Admin: 12/18/18 11:10 Dose: 5.5 mls/min Documented by: [id number] Methylprednisolone 60 mg/ (Syringe) 1.96 mls @ 1.5 mls/min IV NOW STA Stop: 12/18/18 10:31 Last Admin: 12/18/18 11:10 Dose: 1.5 mls/min Documented by: [id number] Sodium Chloride (Nss 1000ml) 500 mls @ 999 mls/hr IV .Q31M ONE Stop: 12/18/18 11:45 Last Infusion: 12/18/18 12:21 Dose: 0 mls/hr Documented by: [id number] Admin: 12/18/18 11:54 Dose: 999 mls/hr Documented by: [id number] Piperacillin Sod/Tazobactam (Sod 4.5 gm/ Dextrose) 120 mls @ 200 mls/hr IV NOW ONE; Protocol Stop: 12/18/18 16:35 Last Infusion: 12/18/18 17:45 Dose: 0 mls/hr Documented by: [id number] Admin: 12/18/18 17:08 Dose: 200 mls/hr Documented by: [id number] Insulin Aspart (Novolog Flexpen) 0 units SC NOW ONE Stop: 12/18/18 15:31 Last Admin: 12/18/18 15:38 Dose: 2 units Documented by: [id number] Cosigned by: [id number] Medical Decision Making Differential Diagnosis Differentials include pneumonia, CHF, bronchitis, exacerbation of COPD, anemia, AL, fluid overload, PE and influenza among others. Medical Records Attestation: I reviewed the patient's medical records. Home Medications Current Medication List: was personally reviewed by me Laboratory Data Attestation: I reviewed the patient's lab results. Result diagrams: 12/18/18 10:45 12/18/18 10:45 Lab Results 12/18/18 12/18/18 12/18/18 Range/Units 10:45 10:45 10:45 WBC 21.06 H (4.8-10.8) K/uL RBC 4.08 L (4.2-5.4) M/uL Hgb 12.0 (12.0-16.0) g/dL Hct 37.0 (37-47) % MCV 90.7 (80-100) fL MCH 29.4 (25-34) pg MCHC 32.4 (32-36) g/dL RDW Std Deviation 62.6 H (36.4-46.3) fL RDW Coeff of Yogi 18.9 H (11.5-14.5) % Plt Count 152 (130-400) K/uL MPV 10.0 (7.4-10.4) fL Immature Gran % (Auto) 2.4 % Neut % (Auto) 79.3 % Lymph % (Auto) 5.5 % Mcmullen % (Auto) 12.0 % Eos % (Auto) 0.5 % Baso % (Auto) 0.3 % Immature Gran # (Auto) 0.51 H (0.00-0.02) K/uL Neut # (Auto) 16.68 H (1.4-6.5) K/uL Lymph # (Auto) 1.16 L (1.2-3.4) K/uL Mcmullen # (Auto) 2.53 H (0.11-0.59) K/uL Eos # (Auto) 0.11 (0-0.5) K/uL Baso # (Auto) 0.07 (0-0.2) K/uL PT 30.4 H (9.0-12.0) Seconds INR 3.2 H (0.9-1.1) APTT 90.2 H* (21.0-31.0) Seconds PTT Ratio 3.3 Sodium 133 L (136-145) mmol/L Potassium 4.1 (3.5-5.1) mmol/L Chloride 98 (98-107) mmol/L Carbon Dioxide 26 (21-32) mmol/L Anion Gap 9.0 (3-11) BUN 23 H (7-18) mg/dl Creatinine 2.95 H (0.6-1.2) mg/dl Est Cr Clr Drug Dosing 22.4 ml/min Est GFR ( Amer) 18.6 Est GFR (Non-Af Amer) 16.1 BUN/Creatinine Ratio 7.7 L (10-20) Glucose 88 (70-99) mg/dl POC Glucose (70-99) Lactate (0.4-2.0) mmol/L Calcium 7.9 L (8.5-10.1) mg/dl Magnesium 1.9 (1.8-2.4) mg/dl Total Bilirubin 0.4 (0.2-1) mg/dl AST 25 (15-37) U/L ALT 48 (12-78) U/L Alkaline Phosphatase 160 H (45-117) U/L Troponin I 0.119 H* (0-0.045) ng/ml Total Protein 7.1 (6.4-8.2) gm/dl Albumin 3.0 L (3.4-5.0) gm/dl Globulin 4.1 H (2.5-4.0) gm/dl Albumin/Globulin Ratio 0.7 L (0.9-2) Influenza Type A (PCR) (Neg) Influenza Type B (PCR) (Neg) 12/18/18 12/18/18 12/18/18 Range/Units 10:45 11:08 14:34 WBC (4.8-10.8) K/uL RBC (4.2-5.4) M/uL Hgb (12.0-16.0) g/dL Hct (37-47) % MCV (80-100) fL MCH (25-34) pg MCHC (32-36) g/dL RDW Std Deviation (36.4-46.3) fL RDW Coeff of Yogi (11.5-14.5) % Plt Count (130-400) K/uL MPV (7.4-10.4) fL Immature Gran % (Auto) % Neut % (Auto) % Lymph % (Auto) % Mcmullen % (Auto) % Eos % (Auto) % Baso % (Auto) % Immature Gran # (Auto) (0.00-0.02) K/uL Neut # (Auto) (1.4-6.5) K/uL Lymph # (Auto) (1.2-3.4) K/uL Mcmullen # (Auto) (0.11-0.59) K/uL Eos # (Auto) (0-0.5) K/uL Baso # (Auto) (0-0.2) K/uL PT (9.0-12.0) Seconds INR (0.9-1.1) APTT (21.0-31.0) Seconds PTT Ratio Sodium (136-145) mmol/L Potassium (3.5-5.1) mmol/L Chloride (98-107) mmol/L Carbon Dioxide (21-32) mmol/L Anion Gap (3-11) BUN (7-18) mg/dl Creatinine (0.6-1.2) mg/dl Est Cr Clr Drug Dosing ml/min Est GFR ( Amer) Est GFR (Non-Af Amer) BUN/Creatinine Ratio (10-20) Glucose (70-99) mg/dl POC Glucose 137 H (70-99) Lactate 1.8 (0.4-2.0) mmol/L Calcium (8.5-10.1) mg/dl Magnesium (1.8-2.4) mg/dl Total Bilirubin (0.2-1) mg/dl AST (15-37) U/L ALT (12-78) U/L Alkaline Phosphatase (45-117) U/L Troponin I (0-0.045) ng/ml Total Protein (6.4-8.2) gm/dl Albumin (3.4-5.0) gm/dl Globulin (2.5-4.0) gm/dl Albumin/Globulin Ratio (0.9-2) Influenza Type A (PCR) Neg for Influ A (Neg) Influenza Type B (PCR) Neg for Influ B (Neg) 12/18/18 12/18/18 Range/Units 16:19 16:36 WBC (4.8-10.8) K/uL RBC (4.2-5.4) M/uL Hgb (12.0-16.0) g/dL Hct (37-47) % MCV (80-100) fL MCH (25-34) pg MCHC (32-36) g/dL RDW Std Deviation (36.4-46.3) fL RDW Coeff of Yogi (11.5-14.5) % Plt Count (130-400) K/uL MPV (7.4-10.4) fL Immature Gran % (Auto) % Neut % (Auto) % Lymph % (Auto) % Mcmullen % (Auto) % Eos % (Auto) % Baso % (Auto) % Immature Gran # (Auto) (0.00-0.02) K/uL Neut # (Auto) (1.4-6.5) K/uL Lymph # (Auto) (1.2-3.4) K/uL [place] # (Auto) (0.11-0.59) K/uL Eos # (Auto) (0-0.5) K/uL Baso # (Auto) (0-0.2) K/uL PT (9.0-12.0) Seconds INR (0.9-1.1) APTT (21.0-31.0) Seconds PTT Ratio Sodium (136-145) mmol/L Potassium (3.5-5.1) mmol/L Chloride (98-107) mmol/L Carbon Dioxide (21-32) mmol/L Anion Gap (3-11) BUN (7-18) mg/dl Creatinine (0.6-1.2) mg/dl Est Cr Clr Drug Dosing ml/min Est GFR ( Amer) Est GFR (Non-Af Amer) BUN/Creatinine Ratio (10-20) Glucose (70-99) mg/dl POC Glucose 214 H (70-99) Lactate (0.4-2.0) mmol/L Calcium (8.5-10.1) mg/dl Magnesium (1.8-2.4) mg/dl Total Bilirubin (0.2-1) mg/dl AST (15-37) U/L ALT (12-78) U/L Alkaline Phosphatase (45-117) U/L Troponin I 0.103 H* (0-0.045) ng/ml Total Protein (6.4-8.2) gm/dl Albumin (3.4-5.0) gm/dl Globulin (2.5-4.0) gm/dl Albumin/Globulin Ratio (0.9-2) Influenza Type A (PCR) (Neg) Influenza Type B (PCR) (Neg) Imaging Data Radiologist's Impression: Radiology results as stated below per my review and the radiologist's interpretation: XR chest 1V portable CLINICAL HISTORY: Shortness of breath. COMPARISON STUDY: Chest radiograph and chest CT August 12, 2018. FINDINGS: Right lower lung opacity is noted. Right internal jugular catheter is in place. Patient is rotated. There is no pneumothorax or pleural effusion. There is no evidence for pulmonary edema. Cardiomegaly is unchanged. Patient is rotated. IMPRESSION: 1. Right lower lung opacity which may reflect atelectasis or consolidation. 2. Cardiomegaly without evidence for pulmonary edema. Electronically signed by: Reginald Champion M.D. 12/18/2018 11:08 AM ECG Data Attestation: I personally reviewed and interpreted this ECG as follows: Indication: SOB/dyspnea Rate (beats per minute): 84 Rhythm: normal sinus Findings: + T-wave inversion (Inferiorly); no ST elevation Comparison ECG Date: from (08/13/18) Change: no significant change Blood Pressure Blood Pressure Findings: Normal blood pressure Blood Pressure Disposition: further management by hospitalist [facility] Narrative There is a significant leukocytosis at 21,000, this would be consistent with infection. INR was elevated at 3.2, this is consistent with her Coumadin use. There was an elevation to the creatinine at 2.95, this is consistent with her need for dialysis. Lactic acid level was not significantly elevated making severe sepsis less likely. EKG shows a sinus rhythm, no acute ischemia. Cardiac enzyme testing x1 is slightly elevated, this could be consistent with cardiac injury and/or mismatch from her dyspnea. Influenza testing was negative. Blood cultures are pending. Chest film does show what appears to be a right lower lung pneumonia, no CHF, no pneumothorax. The patient was given a DuoNeb, she was given IV Solu-Medrol, IV cefepime and IV saline. With this treatment, she did have improvement of her blood pressure, she seemed to be resting fairly comfortably. The patient presents with cough, some lower blood pressure and dyspnea. She appears to have pneumonia by our workup. I do feel she meets criteria for sepsis given the leukocytosis, reported fever and hypotension. She was aggressively managed while here in the ED and does seem to be improving. I did speak with case management, I talked with the patient. The on-call hospitalist was consulted. Impression & Plan Shortness of breath, Hypotension, Pneumonia, Elevated troponin, Leukocytosis Critical Care Time I have personally spent greater than 35 minutes of critical care time in the direct management of this patient. This includes bedside care, interpretation of diagnostic studies, and testing, discussion with consultants, patient, and family members, and other required patient management activities. This 35 minutes is in excess of all separately billable procedures. Critical Care Time: Yes Total Critical Care Time: 35 Discharge Plan Visit Data *Final* Discharge Date/Time: 12/18/18 12:33 Chief Complaint: Shortness of Breath/Dyspnea ED Provider: Preet Ware Discharge Problem: Shortness of breath, Hypotension, Pneumonia, Elevated troponin, Leukocytosis Patient Disposition: Admitted As Inpatient Discharge Instructions Interventions: ED Discharge Assessment Last Done: 12/18/18 12:33 Discharge Problem: Hypotension Qualifiers: Hypotension type: unspecified hypotension type Qualified Code(s): I95.9 - H ypotension, unspecified Pneumonia Qualifiers: Pneumonia type: due to unspecified organism Laterality: right Lung location: lower lobe of lung Qualified Code(s): J18.1 - Lobar pneumonia, unspecified organism Leukocytosis Qualifiers: Leukocytosis type: unspecified Qualified Code(s): D72.829 - Elevated white blood cell count, unspecified The scribe's documentation has been prepared under my direction and personally reviewed by me in its entirety. I confirm that the note above accurately reflects all work, treatment, procedures, and medical decision making performed by me.
[2018-12-18] MEDS: methylPREDNISolone 40 MG in SYRINGE 0 ML IV SCH (17:08)
[2018-12-18] MEDS: GABAPENTIN 300 MG CAP PO SCH (17:13)
[2018-12-18] MEDS: INSULIN ASPART 100 UNITS/ML 3 ML PEN SC SCH ×2 (17:17→20:56)
--- NOTE | 2018-12-18 18:36 | Nephrology Consultation ---
Date of Consultation December 18, 2018 Assessment & Plan (1) ESRD (end stage renal disease) on dialysis: on MWFSat dialysis via TDC -will order 1.2L FR -will f/u on blood culture results from [facility] - few results likely before 12/21 -eval in AM for her routine HD; had tx today, at least most of it; if nto tomorrow then friday HD Present on Admission?: Yes (2) Acute and chronic respiratory failure with hypoxia: per primary service; will reeval in am for HD either 12/19 or 12/20 depending on clinical status -current sbp are normal or even on higher side for her -pls ask pharmacy to minimize volume of all meds/IV fluids Present on Admission?: Yes History of Present Illness Reason for Consultation: ESRD on HD Requesting Physician: Dr King Attending Physician: Julius Haynes, DO History of Present Illness 63 y/o F whom I'm asked to see for ESRD care after she was admitted today for pneumonia after failing OP therapy. PMH includes COPD, obesity hypoventilation syndrome/pulmonary HTN, R HF, chronic afib on coumadin, DM2, chronic sacral/buttock wound. Like so many R HF pts, she has complex interplay between HF, chronic respiratory failure, volume status and walks a fine line between overload and hpyotension- relies on midodrine to keep bp up. She dialyzes under my care 4 days weekly at [facility]; she is TDC dependent for vascular access/ not an AVF candidate. She had dialysis today with 1750 mL fluid removal. Already at the start of tx she felt exceptionally weak and sob; no fever though we did send blood cultures to [facility]. We gave no abtx; did call 911 d/t worsening hypoxia, dyspnea. She follows closely w/ [facility]; has been having frequent close monitoring of her care (see H&P). Despite this and aggressive HD, she was steadily worsening as OP and sent to ER where she was found to have RLL pNA and started on zosyn, solumedrol, nebs Allergies Allergy/AdvReac Type Severity Reaction Status Date / Time bacitracin Allergy Intermediate RASH,ITCH Verified 12/18/18 10:24 celecoxib Allergy Intermediate RASH TO Verified 12/18/18 10:24 SULFA DRUGS neomycin Allergy Intermediate RASH,ITCH Verified 12/18/18 10:24 polymyxin B Allergy Intermediate RASH,ITCH Verified 12/18/18 10:24 Sulfa (Sulfonamide Allergy Intermediate RASH,HAS Verified 12/18/18 10:24 Antibiotics) TAKEN GLIPIZIDE W/O REACTION tigecycline AdvReac Severe MILD Verified 12/18/18 10:24 PANCREATITIS codeine AdvReac Intermediate GI UPSET Verified 12/18/18 10:24 Home Medications Home Medications Medication Instructions Recorded Confirmed Type albuterol sulfate 2.5 mg/3 mL 1.25 mg INH Q4H PRN 06/01/18 12/18/18 History (0.083 %) solution for nebulization albuterol sulfate HFA 90 2 puffs INH Q6H PRN 06/01/18 12/18/18 History mcg/actuation aerosol inhaler ascorbic acid (vitamin C) 500 mg 500 mg PO DAILY cap 06/01/18 12/18/18 History capsule atorvastatin 40 mg tablet 40 mg PO HS 06/01/18 12/18/18 History cholecalciferol (vitamin D3) 1,000 1,000 units PO DAILY 06/01/18 12/18/18 History unit capsule gabapentin 400 mg capsule 400 mg PO BID 06/01/18 12/18/18 History hydrocodone 5 mg-acetaminophen 325 1 tab PO Q6H PRN 06/01/18 12/18/18 History mg tablet insulin glargine (U-100) 100 52 units SQ HS 06/01/18 12/18/18 History unit/mL (3 mL) subcutaneous pen levothyroxine 125 mcg tablet 125 mcg PO QAM 06/01/18 12/18/18 History magnesium oxide 400 mg (241.3 mg 400 mg PO DAILY tab 06/01/18 12/18/18 History magnesium) tablet metoprolol succinate ER 25 mg 25 mg PO HS 06/01/18 12/18/18 History capsule sprinkle, ext. release 24 hr pantoprazole 20 mg tablet,delayed 20 mg PO QAM 06/01/18 12/18/18 History release sertraline 100 mg tablet 150 mg PO DAILY tab 06/01/18 12/18/18 History Anoro Ellipta 1 inh INHALATION DAILY 06/22/18 12/18/18 History docusate sodium [Colace] 100 mg PO BID 06/22/18 12/18/18 History nystatin 1 applic TOPICAL BID 06/22/18 12/18/18 History prednisone 5 mg PO DAILY 06/22/18 12/18/18 History lorazepam 0.5 mg PO UD PRN 07/15/18 12/18/18 History [place] Caps 1 cap PO DAILY 08/12/18 12/18/18 History warfarin 5 mg PO 3XWK 08/12/18 12/18/18 History midodrine 5 mg PO TID #90 tab 08/14/18 12/18/18 Rx warfarin 7.5 mg PO 4XWK 12/18/18 12/18/18 History Patient History Medical History Chronic knee pain (Chronic) COPD exacerbation (Resolved) Sleep apnea (Chronic) Chronic anemia (Chronic) Pneumonia (Acute) Generalized weakness (Resolved) Iron (Fe) deficiency anemia (Chronic) Morbid obesity (Chronic) Obesity hypoventilation syndrome (Chronic) Pressure ulcer Atrial fibrillation (Chronic) Pulmonary HTN (Chronic) COPD (chronic obstructive pulmonary disease) (Chronic) DM type 2 (diabetes mellitus, type 2) (Chronic) HTN (hypertension) (Chronic) RHF (right heart failure) (Chronic) Chronic respiratory failure with hypoxia (Chronic) ESRD (end stage renal disease) on dialysis (Chronic) Hypothyroidism (Chronic) Depression (Chronic) HLD (hyperlipidemia) (Chronic) Neuropathy (Chronic) Diabetic gastroparesis (Chronic) H/O deep venous thrombosis (Resolved) ESRD (end stage renal disease) on dialysis (Inactive) Surgical History History of tracheostomy History of hernia repair (Resolved) Status post laparoscopic cholecystectomy (Resolved) S/P debridement (Chronic) "08/30/2016- debridement bilateral lower extremity and buttock wounds" Hx of cholecystectomy (Resolved) Family History Other CKD (chronic kidney disease) Coronary heart disease Social History Preferred Language: Amharic Communication Ability: Effective Beliefs That Will Affect Care: None marital status: Current Living Situation: Spouse Feels Safe at Home: Yes Smoking Status: Former smoker Hx Alcohol Use: No Hx Substance Use: No Review of Systems Constitutional: + chills, + fatigue and + weakness Eyes: no worsening vision Ear, Nose, Mouth, Throat: no dry mouth Respiratory: as per Subjective / HPI, + cough, + chest congestion, + dyspnea, + dyspnea on exertion, + sputum production and + wheezing Cardiovascular: + lightheadedness and + edema (stable chronic); no chest pain and no palpitations Gastrointestinal: no abdominal pain, no vomiting, no cramping and no diarrhea/loose stools anuric Musculoskeletal: + back pain Integumentary: + non-healing lesions (sacral) Neurologic: + gait abnormality, + unsteadiness, + falls and + generalized weakness; no headache(s) and no confusion Psychiatric: no behavioral changes Endocrine: + fatigue Hematologic / Lymphatic: no easy bleeding Physical Exam Vital Signs (Past 24 Hours): Last Vital Signs Temp 36.8 C 12/18/18 16:01 Pulse 85 12/18/18 16:03 Resp 19 12/18/18 16:01 BP 113/68 12/18/18 16:01 Pulse Ox 94 12/18/18 16:01 Constitutional: well developed and well nourished on 02NC 3L; still obviously exhausted but not like extremis earlier today at HD Eyes: EOM intact bilaterally ENMT: Ears: no external ear abnormality Nose: no external nose abnormality Mouth: + dry oral mucous membranes Neck: no nuchal rigidity Respiratory: + labored breathing Auscultation: + diminished lung sounds and + wheezes Cardiovascular: Rate/Rhythm: regular rate (distant HS) and regular rhythm Extremities: + edema (indurated 1+) Gastrointestinal (Abdomen): Inspection/Auscultation: normal bowel sounds Percussion/Palpation: abdomen soft; abdomen nontender Musculoskeletal: Extremities: strength 5/5 throughout Skin: no rashes, warm and dry sacral area not examined Neurologic: laboy, fluent speech, no tremor Psychiatric: A+Ox3, euthymic affect Eye Contact: good eye contact Results & Data Laboratory Results Abnormal lab results 12/18/18 12/18/18 12/18/18 Range/Units 10:45 10:45 10:45 WBC 21.06 H (4.8-10.8) K/uL RBC 4.08 L (4.2-5.4) M/uL RDW Std Deviation 62.6 H (36.4-46.3) fL RDW Coeff of Yogi 18.9 H (11.5-14.5) % Immature Gran # (Auto) 0.51 H (0.00-0.02) K/uL Neut # (Auto) 16.68 H (1.4-6.5) K/uL Lymph # (Auto) 1.16 L (1.2-3.4) K/uL Boyd # (Auto) 2.53 H (0.11-0.59) K/uL PT 30.4 H (9.0-12.0) Seconds INR 3.2 H (0.9-1.1) APTT 90.2 H* (21.0-31.0) Seconds Sodium 133 L (136-145) mmol/L BUN 23 H (7-18) mg/dl Creatinine 2.95 H (0.6-1.2) mg/dl BUN/Creatinine Ratio 7.7 L (10-20) POC Glucose (70-99) Calcium 7.9 L (8.5-10.1) mg/dl Alkaline Phosphatase 160 H (45-117) U/L Troponin I 0.119 H* (0-0.045) ng/ml Albumin 3.0 L (3.4-5.0) gm/dl Globulin 4.1 H (2.5-4.0) gm/dl Albumin/Globulin Ratio 0.7 L (0.9-2) 12/18/18 12/18/18 12/18/18 Range/Units 14:34 16:19 16:36 WBC (4.8-10.8) K/uL RBC (4.2-5.4) M/uL RDW Std Deviation (36.4-46.3) fL RDW Coeff of Yogi (11.5-14.5) % Immature Gran # (Auto) (0.00-0.02) K/uL Neut # (Auto) (1.4-6.5) K/uL Lymph # (Auto) (1.2-3.4) K/uL Boyd # (Auto) (0.11-0.59) K/uL PT (9.0-12.0) Seconds INR (0.9-1.1) APTT (21.0-31.0) Seconds Sodium (136-145) mmol/L BUN (7-18) mg/dl Creatinine (0.6-1.2) mg/dl BUN/Creatinine Ratio (10-20) POC Glucose 137 H 214 H (70-99) Calcium (8.5-10.1) mg/dl Alkaline Phosphatase (45-117) U/L Troponin I 0.103 H* (0-0.045) ng/ml Albumin (3.4-5.0) gm/dl Globulin (2.5-4.0) gm/dl Albumin/Globulin Ratio (0.9-2) Diagnostic Findings cxr 1. Right lower lung opacity which may reflect atelectasis or consolidation. 2. Cardiomegaly without evidence for pulmonary edema.
[2018-12-18] MEDS ORDERED: GABAPENTIN 300 MG CAP PO SCH (20:00)
[2018-12-18] MEDS: ATORVASTATIN 40 MG TAB PO SCH (20:54)
[2018-12-18] MEDS: DOCUSATE SODIUM 100 MG CAP PO SCH (20:54)
[2018-12-18] MEDS: INSULIN GLARGINE SOLOSTAR 100 UNITS/ML 3 ML PEN SC SCH (20:55)
[2018-12-18] MEDS: NYSTATIN POWDER 15GM BTL EXT SCH (20:55)
[2018-12-18] MEDS: SERTRALINE HCL 50 MG TABLET PO SCH (20:57)
[2018-12-18] MEDS: METOPROLOL SUCC 25MG EXT REL TAB PO SCH (20:57)
[2018-12-19] MEDS ORDERED: PIPERACILLIN/TAZOBACTAM 4.5 GM in DEXTROSE 5% 100 ML IV SCH
[2018-12-19] MEDS: methylPREDNISolone 40 MG in SYRINGE 0 ML IV SCH ×3 (00:56→17:28)
[2018-12-19 06:46] LABS: Basophils # (auto) 0.01 K/uL (0-0.2); Basophils % (auto) 0.1 %; Hematocrit (blood only) 33.6 % (37-47); Hemoglobin 10.9 g/dL (12.0-16.0); Immature Granulocytes # (auto) 0.24 K/uL (0.00-0.02); Immature Granulocytes % (auto) 1.8 %; Lymphocytes % (auto) 3.7 %; Mean Corpuscular Hgb Conc 32.4 g/dL (32-36); Mean Corpuscular Volume 90.3 fL (80-100); Mean Platelet Volume 9.9 fL (7.4-10.4); Monocytes # (auto) 0.77 K/uL (0.11-0.59); Monocytes % (auto) 5.6 %; Neutrophils # (auto) 12.12 K/uL (1.4-6.5); Neutrophils % (auto) 88.8 %; Platelet Count 119 K/uL (130-400); RDW Coefficient of Variation 18.6 % (11.5-14.5); RDW Standard Deviation 62.1 fL (36.4-46.3); Red Blood Count 3.72 M/uL (4.2-5.4); White Blood Count 13.64 K/uL (4.8-10.8)
[2018-12-19 06:55] LABS: Prothrombin Time 19.9 Seconds (9.0-12.0)
[2018-12-19] MEDS: LEVOTHYROXINE SODIUM 125 MCG TABLET PO SCH (07:03)
[2018-12-19] MEDS: ALBUT/IPRATROP 3MG/0.5MG NEB 3 ML VIAL NEB SCH ×4 (07:11→19:11)
[2018-12-19 07:22] LABS: BUN Creatinine Ratio 10.1 (10-20); Calcium 8.4 mg/dl (8.5-10.1); Creatinine Clr Calc Pharmacy 13.4 ml/min; Est GFR (African American) 10.2; Est GFR (Non-African American) 8.8; Potassium 4.8 mmol/L (3.5-5.1)
[2018-12-19 07:39] LABS: Beta-Hydroxybutyrate 2.97 mg/dl (0.2-2.81)
[2018-12-19] MEDS ORDERED: SODIUM CHLORIDE 0.9% 1000ML 1,000 ML IV PRN (08:25)
[2018-12-19] MEDS ORDERED: MIDODRINE HCL 2.5 MG TAB PO PRN (08:28)
[2018-12-19] MEDS: INSULIN ASPART 100 UNITS/ML 3 ML PEN SC SCH ×4 (08:36→20:35)
[2018-12-19] MEDS ORDERED: HEPARIN SOD (PORCINE) 1000 UNIT/ML 10 ML VIAL IV SCH (09:00)
[2018-12-19] MEDS ORDERED: SERTRALINE HCL 50 MG TABLET PO SCH (09:00)
[2018-12-19] MEDS ORDERED: MIDODRINE HCL 2.5 MG TAB PO SCH (09:00)
[2018-12-19] MEDS ORDERED: INSULIN GLARGINE SOLOSTAR 100 UNITS/ML 3 ML PEN SC SCH (09:00)
--- NOTE | 2018-12-19 09:21 | Hospitalist Progress Note ---
Date of Service December 19, 2018 Assessment & Plan (1) Pneumonia: RLL opacity on chest x-ray - failed outpatient therapy with prednisone and cefdinir - Start IV Zosyn - pharmacy to dose - Solumedrol 40 mg IV Q8 hours - ATC DuoNebs with additional up to Q2 hours prn - Baseline oxygen requirement is 3-4 LPM - continue while admitted (2) Acute and chronic respiratory failure with hypoxia: See above plan of care - Suspect component of Right CHF contributing to respiratory symptoms (3) Hypotension: Chronic issue with HD - on midodrine - Continue outpatient dose of midodrine and monitor - Appreciate nephrology input as well (4) Elevated troponin: Suspect demand ischemia due to pneumonia (NSTEMI, type II) - Follow troponins Q6 hours - repeat EKG if chest pain and in AM - Monitor on telemetry (5) Atrial fibrillation: On chronic Coumadin as outpatient but INR supratherapeutic today - HOLD Coumadin for now - Daily INR - No additional DVT prophylaxis ordered at this time but will need to follow INR closely (6) DM type 2 (diabetes mellitus, type 2): Pharmacist - for glycemic management, particularly since pt on solumedrol (7) RHF (right heart failure): Pt with history of chronic right-sided CHF - suspect component of pt's sy mptoms related to volume overload although did have 1.5 liters removed during HD today - Check ECHO N (8) ESRD (end stage renal disease) on dialysis: - Nephrology for HD management including volume control (9) Hypothyroidism: - Continue outpatient levothyroxine (10) HLD (hyperlipidemia): - Continue atorvastatin as taken outpatient (11) Neuropathy: - Continue gabapentin (12) Decubitus ulcer, buttock: Noted by nursing on admission assessment - may be contributing to leukocytosis - Covered with IV Zosyn - Consult wound care nurse for any additional recommendations -[facility] at home Subjective ROS-No Headache, No Visual Changes, No Nausea, No Vomiting, No Fever, No Chills, No Neck Pain or Stiffness, No Chest Pain, No Palpitations, No SOB, No NAVARRO, No Cough, No Sputum, No Wheezing, No Abdominal Pain, No Diarrhea, No Hematemesis, No Hemoptysis, No Unexpected Weight Loss, No Flank pain, No Melena, No Hematoch ezia, No Frequency, No Urgency, No Burning, No Hematuria, No Rashes, No Diaphoresis. Appetite is Normal Physical Exam Gen-AAO x 3, NAD, Afebrile, BIPAP, Obese and Pleasant Head-NCAT, EOMI, PERRLA, Anicteric Sclera, No Posterior Pharyngeal Erythema Neck-Supple, No JVD, No Thyromegaly, No Masses, No LAD, No Bruits Lungs-Clear to Auscultation Left, +Rales and Rhonchi Right, No Wheezing, No Crepitus Chest-No S4, +S1, +S2, No S3, No Murmurs, No Rubs, No Gallops, No Ectopy Abdomen-Soft, Obese, Bowel Sounds Present, Non Tender, Non Distended, No Hepatomegaly, No Splenomegaly, No Palpable Masses, No Rebound, No Rigidity, No Guarding Musculoskeletal-Full Range of Motion Bilaterally, No CVAT Extremities-No Cyanosis, No Clubbing, No Edema Nuero-Cranial Nerves II-XII grossly intact, Motor WNL, DTRs WNL, Strength WNL, Non Focal Psych-Normal Mood Physical Exam Vital Signs (Past 24 Hours): Last Vital Signs Temp 36.6 C 12/19/18 07:33 Pulse 65 12/19/18 07:33 Resp 18 12/19/18 07:33 BP 108/61 12/19/18 07:33 Pulse Ox 94 12/19/18 07:33 Results & Data Laboratory Results Current Diagnoses Hypothyroidism, unspecified (12/18/18) Type 2 diabetes mellitus with diabetic polyneuropathy (12/18/18) Hyperlipidemia, unspecified (12/18/18) Polyneuropathy, unspecified (12/18/18) Paroxysmal atrial fibrillation (12/18/18) Right heart failure, unspecified (12/18/18) Hypotension of hemodialysis (12/18/18) Lobar pneumonia, unspecified organism (12/18/18) Acute and chronic respiratory failure with hypoxia (12/18/18) Pressure ulcer of unspecified buttock, unspecified stage (12/18/18) End stage renal disease (12/18/18) Abnormal levels of other serum enzymes (12/18/18) terminal 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 manager (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 (12/18/18) Dependence on renal dialysis (12/18/18) Allergies bacitracin Allergy (Intermediate, Verified 12/18/18 10:24) RASH,ITCH celecoxib Allergy (Intermediate, Verified 12/18/18 10:24) RASH TO SULFA DRUGS neomycin Allergy (Intermediate, Verified 12/18/18 10:24) RASH,ITCH polymyxin B Allergy (Intermediate, Verified 12/18/18 10:24) RASH,ITCH Sulfa (Sulfonamide Antibiotics) Allergy (Intermediate, Verified 12/18/18 10:24) RASH,HAS TAKEN GLIPIZIDE W/O REACTION tigecycline Adverse Reaction (Severe, Verified 12/18/18 10:24) MILD PANCREATITIS codeine Adverse Reaction (Intermediate, Verified 12/18/18 10:24) GI UPSET Height/Weight/Isolation Height 5 ft 4 in Weight 99.6 kg Chemistry 12/18/18 12/19/18 10:45 06:21 Sodium 133 L 128 L Potassium 4.1 4.8 D Chloride 98 96 L Carbon Dioxide 26 20 L Anion Gap 9.0 13.0 H BUN 23 H 49 H D Creatinine 2.95 H 4.86 H* D Glucose 88 307 H Microbiology 12/18/18 10:45 Blood Blood Culture - Pending 12/18/18 10:52 Blood Blood Culture - Pending (1) Pneumonia Pneumonia type: due to unspecified organism Laterality: right Lung location: lower lobe of lung Qualified Code(s): J18.1 - Lobar pneumonia, unspecified organism (2) Hypotension Hypotension type: hemodialysis-associated hypotension Qualified Code(s): I95.3 - Hypotension of hemodialysis (3) Atrial fibrillation Atrial fibrillation type: paroxysmal Qualified Code(s): I48.0 - Paroxysmal atrial fibrillation (4) DM type 2 (diabetes mellitus, type 2) Diabetes mellitus halfway insulin use: with halfway use Diabetes mellitus complication status: with neurologic complications Diabetes mellitus complication detail: with polyneuropathy Qualified Code(s): E11.42 - Type 2 diabetes mellitus with diabetic polyneuropathy; Z79.4 - terminal operations manager (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 (5) RHF (right heart failure) Heart failure chronicity: unspecified Qualified Code(s): I50.810 - Right heart failure, unspecified (6) Hypothyroidism Hypothyroidism type: unspecified Qualified Code(s): E03.9 - Hypothyroidism, unspecified (7) HLD (hyperlipidemia) Hyperlipidemia type: unspecified Qualified Code(s): E78.5 - Hyperlipidemia, unspecified
[2018-12-19] MEDS: HEPARIN SOD (PORCINE) 1000 UNIT/ML 10 ML VIAL IV SCH ×3 (10:00→17:01)
[2018-12-19] MEDS: cefTRIAXone SODIUM 2,000 MG in DEXTROSE 5% 50 ML IV SCH (12:51)
[2018-12-19] MEDS: SEVELAMER HCL 800 MG TABLET PO SCH (12:52)
--- NOTE | 2018-12-19 12:53 | Dialysis Progress Note ---
Date of Service December 19, 2018 Assessment & Plan (1) ESRD (end stage renal disease) on dialysis: on MWFSat dialysis via TDC -next tx on 12/21 -cont 1.2L FR -will f/u on blood culture results from [facility] - few results likely before 12/21 (2) Acute and chronic respiratory failure with hypoxia: per primary service; -current sbp in 80-100s are normal or even on higher side for her -pls ask pharmacy to minimize volume of all meds/IV fluids Subjective seen on HD; feeling much better; breathing improved; tolerating hd; had brkfst; no n/v; reading paper; asking when she can get oob, use walker Physical Exam Vital Signs (Past 24 Hours): Last Vital Signs Temp 36.3 C L 12/19/18 08:55 Pulse 78 12/19/18 12:20 Resp 16 12/19/18 11:05 BP 91/50 L 12/19/18 12:20 Pulse Ox 93 12/19/18 11:05 Constitutional: well developed, well nourished, + obese and cooperative on 02nc, much more alert Eyes: EOM intact bilaterally ENMT: Ears: no external ear abnormality Nose: no external nose abnormality Mouth: + dry oral mucous membranes Neck: no nuchal rigidity Respiratory: Auscultation: + diminished lung sounds; no wheezes Cardiovascular: Rate/Rhythm: regular rate (distant HS) and regular rhythm Extremities: + edema (indurated 1+) Gastrointestinal (Abdomen): Inspection/Auscultation: normal bowel sounds Percussion/Palpation: abdomen soft; abdomen nontender Musculoskeletal: Extremities: strength 5/5 throughout Skin: no rashes, warm and dry Neurologic: laboy, fluetn speech Psychiatric: A+Ox3, euthymic affect Eye Contact: good eye contact Results & Data Laboratory Results Abnormal lab results 12/18/18 12/18/18 12/18/18 Range/Units 14:34 16:19 16:36 WBC (4.8-10.8) K/uL RBC (4.2-5.4) M/uL Hgb (12.0-16.0) g/dL Hct (37-47) % RDW Std Deviation (36.4-46.3) fL RDW Coeff of Yogi (11.5-14.5) % Plt Count (130-400) K/uL Immature Gran # (Auto) (0.00-0.02) K/uL Neut # (Auto) (1.4-6.5) K/uL Lymph # (Auto) (1.2-3.4) K/uL Crook # (Auto) (0.11-0.59) K/uL PT (9.0-12.0) Seconds INR (0.9-1.1) Sodium (136-145) mmol/L Chloride (98-107) mmol/L Carbon Dioxide (21-32) mmol/L Anion Gap (3-11) BUN (7-18) mg/dl Creatinine (0.6-1.2) mg/dl Glucose (70-99) mg/dl POC Glucose 137 H 214 H (70-99) Calcium (8.5-10.1) mg/dl Troponin I 0.103 H* (0-0.045) ng/ml Beta-Hydroxybutyric Acd (0.2-2.81) mg/dl 12/18/18 12/18/18 12/19/18 Range/Units 20:26 22:41 06:21 WBC 13.64 H (4.8-10.8) K/uL RBC 3.72 L (4.2-5.4) M/uL Hgb 10.9 L (12.0-16.0) g/dL Hct 33.6 L (37-47) % RDW Std Deviation 62.1 H (36.4-46.3) fL RDW Coeff of Yogi 18.6 H (11.5-14.5) % Plt Count 119 L (130-400) K/uL Immature Gran # (Auto) 0.24 H (0.00-0.02) K/uL Neut # (Auto) 12.12 H (1.4-6.5) K/uL Lymph # (Auto) 0.50 L (1.2-3.4) K/uL Crook # (Auto) 0.77 H (0.11-0.59) K/uL PT (9.0-12.0) Seconds INR (0.9-1.1) Sodium (136-145) mmol/L Chloride (98-107) mmol/L Carbon Dioxide (21-32) mmol/L Anion Gap (3-11) BUN (7-18) mg/dl Creatinine (0.6-1.2) mg/dl Glucose (70-99) mg/dl POC Glucose 192 H (70-99) Calcium (8.5-10.1) mg/dl Troponin I 0.093 H* (0-0.045) ng/ml Beta-Hydroxybutyric Acd (0.2-2.81) mg/dl 12/19/18 12/19/18 12/19/18 Range/Units 06:21 06:21 07:36 WBC (4.8-10.8) K/uL RBC (4.2-5.4) M/uL Hgb (12.0-16.0) g/dL Hct (37-47) % RDW Std Deviation (36.4-46.3) fL RDW Coeff of Yogi (11.5-14.5) % Plt Count (130-400) K/uL Immature Gran # (Auto) (0.00-0.02) K/uL Neut # (Auto) (1.4-6.5) K/uL Lymph # (Auto) (1.2-3.4) K/uL Crook # (Auto) (0.11-0.59) K/uL PT 19.9 H (9.0-12.0) Seconds INR 2.0 H (0.9-1.1) Sodium 128 L (136-145) mmol/L Chloride 96 L (98-107) mmol/L Carbon Dioxide 20 L (21-32) mmol/L Anion Gap 13.0 H (3-11) BUN 49 H D (7-18) mg/dl Creatinine 4.86 H* D (0.6-1.2) mg/dl Glucose 307 H (70-99) mg/dl POC Glucose 307 H (70-99) Calcium 8.4 L (8.5-10.1) mg/dl Troponin I (0-0.045) ng/ml Beta-Hydroxybutyric Acd 2.97 H (0.2-2.81) mg/dl 12/19/18 Range/Units 11:37 WBC (4.8-10.8) K/uL RBC (4.2-5.4) M/uL Hgb (12.0-16.0) g/dL Hct (37-47) % RDW Std Deviation (36.4-46.3) fL RDW Coeff of Yogi (11.5-14.5) % Plt Count (130-400) K/uL Immature Gran # (Auto) (0.00-0.02) K/uL Neut # (Auto) (1.4-6.5) K/uL Lymph # (Auto) (1.2-3.4) K/uL Crook # (Auto) (0.11-0.59) K/uL PT (9.0-12.0) Seconds INR (0.9-1.1) Sodium (136-145) mmol/L Chloride (98-107) mmol/L Carbon Dioxide (21-32) mmol/L Anion Gap (3-11) BUN (7-18) mg/dl Creatinine (0.6-1.2) mg/dl Glucose (70-99) mg/dl POC Glucose 130 H (70-99) Calcium (8.5-10.1) mg/dl Troponin I (0-0.045) ng/ml Beta-Hydroxybutyric Acd (0.2-2.81) mg/dl
[2018-12-19] MEDS: NYSTATIN POWDER 15GM BTL EXT SCH ×2 (13:43→20:22)
[2018-12-19] MEDS: NEPHROCAPS PO SCH (13:43)
[2018-12-19] MEDS: GABAPENTIN 300 MG CAP PO SCH ×2 (13:43→17:28)
[2018-12-19] MEDS: MIDODRINE HCL 10 MG TAB PO SCH ×2 (13:43→17:27)
[2018-12-19] MEDS: MAGNESIUM OXIDE 400 MG TAB PO SCH (13:43)
[2018-12-19] MEDS: PANTOprazole 40 MG TAB PO SCH (13:43)
[2018-12-19] MEDS: ASCORBIC ACID 500 MG TAB PO SCH (13:43)
[2018-12-19] MEDS: DOCUSATE SODIUM 100 MG CAP PO SCH ×2 (13:44→20:21)
[2018-12-19] MEDS: CHOLECALCIFEROL 1,000 UNITS TAB PO SCH (13:44)
--- NOTE | 2018-12-19 13:46 | Pharmacy Report ---
Glycemic Control Progress Note - Date of Service December 19, 2018 - Scope Glycemic Pharmacist consulted for glycemic control to write orders per [facility] inpatient glycemic control protocol. - Objective Accuchecks BSG(last 24 hours):: 12/18/18 12/18/18 12/18/18 14:34 16:19 20:26 Glucose POC Glucose 137 H 214 H 192 H 12/19/18 12/19/18 12/19/18 06:21 07:36 11:37 Glucose 307 H POC Glucose 307 H 130 H - Recent Pertinent Medications The patient is currently receiving: * Basal insulin: Lantus 20 units every 24 hours at bedtime * Correctional Insulin: Novolog Correction per scale ACHS Goal Range: Low 110 mg/dL - High 140 mg/dL Correction Factor: 12 mg/dL/unit * Prandial insulin: Per carb ratio of 1 unit per 4 grams CHO consumed - Outpatient Anti-Diabetic Meds Lantus 52 units daily - Assessment & Plan ASSESSMENT: * See progress note from 12/18/18 for more background info, in short: * Pt receiving SQ basal bolus insulin regimen for hyperglycemia secondary to baseline DM (outpatient regimen on hold), infection (pneumonia on Rocephin), and steroids (currently receiving Solu-Medrol 40 mg IV q8 hours) * Patient is currently receiving an average of 38 units of insulin per day * 20 units of basal insulin * 18 units of prandial/correctional insulin * BSGs ranging 88 - 214 mg/dl over the past 24hrs * Changes needed to insulin regimen: * AM Fasting BSG = 307 mg/dl. This is above goal range for patient based on inpatient targets and co-morbidities. Therefore Basal insulin will be increased. Give one time dose of 10 units of Lantus today on top of 20 of Lantus. Will only give this one time dose because patient typically requires only 15-20 of Lantus once IV steroids are discontinued. Added overnight checks. * Post-prandial BSGs did trend upwards yesterday. Tighten CF slightly. * Total daily dose = ~70 units. PLAN FOR INPATIENT GLYCEMIC CONTROL: * Continuing Lantus 20 units SQ hs * Tightening correction factor to 10 mg/dl/unit * Continuing carb ratio of 1 unit per 4 grams CHO consumed * Continuing goal range of Low 110 mg/dL - High 140 mg/dL RECOMMENDATIONS FOR DISCHARGE: * Continue current outpatient regimen. Patient works closely with glycemic pharmacist on the outside. * Please note that the plan above was derived based on current level of insulin resistance and hospital stress. These recommendations are appropriate for inpatient admission only. Plan of care upon discharge will need to be reassessed to avoid potential outpatient hypo/hyperglycemia. Thank you.
[2018-12-19 14:29] LABS: Hepatitis B Surface Antibody Non-Immune
[2018-12-19 14:40] LABS: Hepatitis B Surface Antigen Neg (Neg)
[2018-12-19] MEDS: HYDROCODONE/ACETAMOPHEN 5/325MG TAB PO PRN (20:19)
[2018-12-19] MEDS: SERTRALINE HCL 50 MG TABLET PO SCH (20:20)
[2018-12-19] MEDS: ATORVASTATIN 40 MG TAB PO SCH (20:21)
[2018-12-19] MEDS: METOPROLOL SUCC 25MG EXT REL TAB PO SCH (20:22)
[2018-12-19] MEDS: INSULIN GLARGINE SOLOSTAR 100 UNITS/ML 3 ML PEN SC SCH (20:34)
[2018-12-20] MEDS: methylPREDNISolone 40 MG in SYRINGE 0 ML IV SCH ×3 (01:38→17:47)
[2018-12-20] MEDS: LEVOTHYROXINE SODIUM 125 MCG TABLET PO SCH (05:48)
[2018-12-20 06:38] LABS: Basophils # (auto) 0.01 K/uL (0-0.2); Basophils % (auto) 0.1 %; Hematocrit (blood only) 34.3 % (37-47); Immature Granulocytes # (auto) 0.17 K/uL (0.00-0.02); Immature Granulocytes % (auto) 0.9 %; Lymphocytes # (auto) 0.61 K/uL (1.2-3.4); Lymphocytes % (auto) 3.4 %; Mean Corpuscular Hgb Conc 32.1 g/dL (32-36); Mean Corpuscular Volume 89.3 fL (80-100); Mean Platelet Volume 10.4 fL (7.4-10.4); Monocytes # (auto) 0.78 K/uL (0.11-0.59); Monocytes % (auto) 4.3 %; Neutrophils # (auto) 16.56 K/uL (1.4-6.5); Neutrophils % (auto) 91.3 %; Platelet Count 131 K/uL (130-400); RDW Coefficient of Variation 18.5 % (11.5-14.5); RDW Standard Deviation 60.3 fL (36.4-46.3); Red Blood Count 3.84 M/uL (4.2-5.4); White Blood Count 18.13 K/uL (4.8-10.8)
[2018-12-20 06:54] LABS: Calcium 8.4 mg/dl (8.5-10.1); Creatinine Clr Calc Pharmacy 15.6 ml/min; Est GFR (African American) 12.2; Est GFR (Non-African American) 10.5; Potassium 4.4 mmol/L (3.5-5.1)
[2018-12-20 07:00] LABS: INR 1.6 (0.9-1.1); Prothrombin Time 15.6 Seconds (9.0-12.0)
[2018-12-20] MEDS: ALBUT/IPRATROP 3MG/0.5MG NEB 3 ML VIAL NEB SCH ×4 (08:12→19:25)
[2018-12-20] MEDS: MAGNESIUM OXIDE 400 MG TAB PO SCH (08:51)
[2018-12-20] MEDS: DOCUSATE SODIUM 100 MG CAP PO SCH ×2 (08:51→20:39)
[2018-12-20] MEDS: NEPHROCAPS PO SCH (08:51)
[2018-12-20] MEDS: SEVELAMER HCL 800 MG TABLET PO SCH (08:51)
[2018-12-20] MEDS: ASCORBIC ACID 500 MG TAB PO SCH (08:51)
[2018-12-20] MEDS: PANTOprazole 40 MG TAB PO SCH (08:51)
[2018-12-20] MEDS: CHOLECALCIFEROL 1,000 UNITS TAB PO SCH (08:51)
[2018-12-20] MEDS: GABAPENTIN 300 MG CAP PO SCH (08:51)
--- NOTE | 2018-12-20 08:51 | Hospitalist Progress Note ---
Date of Service December 20, 2018 Assessment & Plan (1) Pneumonia: RLL opacity on chest x-ray - failed outpatient therapy with prednisone and cefdinir - IV Zosyn - pharmacy to dose - Solumedrol 40 mg IV Q8 hours - ATC DuoNebs with additional up to Q2 hours prn - Baseline oxygen requirement is 3-4 LPM - continue while admitted (2) Acute and chronic respiratory failure with hypoxia: See above plan of care - Suspect component of Right CHF contributing to respiratory symptoms (3) Hypotension: Chronic issue with HD - on midodrine - Continue outpatient dose of midodrine and monitor - Appreciate nephrology input as well (4) Elevated troponin: Suspect demand ischemia due to pneumonia (NSTEMI, type II) - Follow troponins Q6 hours - repeat EKG if chest pain and in AM - Monitor on telemetry (5) Atrial fibrillation: On chronic Coumadin as outpatient INR supratherapeutic now 1.7 - Daily INR - No additional DVT prophylaxis ordered at this time but will need to follow INR closely (6) DM type 2 (diabetes mellitus, type 2): Pharmacist - for glycemic management, particularly since pt on solumedrol (7) RHF (right heart failure): Pt with history of chronic right-sided CHF - suspect component of pt's symptoms related to volume overload although did have 1.5 liters removed during HD today - Check ECHO (8) ESRD (end stage renal disease) on dialysis: - Nephrology for HD management including volume control (9) Hypothyroidism: - Continue outpatient levothyroxine (10) HLD (hyperlipidemia): - Continue atorvastatin as taken outpatient (11) Neuropathy: - Continue gabapentin (12) Decubitus ulcer, buttock: Noted by nursing on admission assessment - may be contributing to leukocytosis - Covered with IV Zosyn - Consult wound care nurse for any additional recommendations -[facility] at home Subjective Still very SOB, especially c ambulation ROS-No Headache, No Visual Changes, No Nausea, No Vomiting, No Fever, No Chills, No Neck Pain or Stiffness, No Chest Pain, No Palpitations, No SOB, No NAVARRO, No Cough, No Sputum, No Wheezing, No Abdominal Pain, No Diarrhea, No Hematemesis, No Hemoptysis, No Unexpected Weight Loss, No Flank pain, No Melena, No Hematochezia, No Frequency, No Urgency, No Burning, No Hematuria, No Rashes, No Diaphoresis. Appetite is Normal Physical Exam Gen-AAO x 3, NAD, Afebrile, BIPAP, Obese and Pleasant Head-NCAT, EOMI, PERRLA, Anicteric Sclera, No Posterior Pharyngeal Erythema Neck-Supple, No JVD, No Thyromegaly, No Masses, No LAD, No Bruits Lungs-Clear to Auscultation Left, +Rales and Rhonchi Right, No Wheezing, No Crepitus Chest-No S4, +S1, +S2, No S3, No Murmurs, No Rubs, No Gallops, No Ectopy Abdomen-Soft, Obese, Bowel Sounds Present, Non Tender, Non Distended, No Hepatomegaly, No Splenomegaly, No Palpable Masses, No Rebound, No Rigidity, No Guarding Musculoskeletal-Full Range of Motion Bilaterally, No CVAT Extremities-No Cyanosis, No Clubbing, No Edema Nuero-Cranial Nerves II-XII grossly intact, Motor WNL, DTRs WNL, Strength WNL, Non Focal Psych-Normal Mood Physical Exam Vital Signs (Past 24 Hours): Last Vital Signs Temp 36.7 C 12/20/18 07:26 Pulse 84 12/20/18 08:14 Resp 18 12/20/18 08:14 BP 113/65 12/20/18 07:26 Pulse Ox 93 12/20/18 08:14 Results & Data Laboratory Results Current Diagnoses Hypothyroidism, unspecified (12/18/18) Type 2 diabetes mellitus with diabetic polyneuropathy (12/18/18) Hyperlipidemia, unspecified (12/18/18) Polyneuropathy, unspecified (12/18/18) Paroxysmal atrial fibrillation (12/18/18) Right heart failure, unspecified (12/18/18) Hypotension of hemodialysis (12/18/18) Lobar pneumonia, unspecified organism (12/18/18) Acute and chronic respiratory failure with hypoxia (12/18/18) Pressure ulcer of unspecified buttock, unspecified stage (12/18/18) End stage renal disease (12/18/18) Abnormal levels of other serum enzymes (12/18/18) intermediate 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 (12/18/18) Dependence on renal dialysis (12/18/18) Allergies bacitracin Allergy (Intermediate, Verified 12/18/18 10:24) RASH,ITCH celecoxib Allergy (Intermediate, Verified 12/18/18 10:24) RASH TO SULFA DRUGS neomycin Allergy (Intermediate, Verified 12/18/18 10:24) RASH,ITCH polymyxin B Allergy (Intermediate, Verified 12/18/18 10:24) RASH,ITCH Sulfa (Sulfonamide Antibiotics) Allergy (Intermediate, Verified 12/18/18 10:24) RASH,HAS TAKEN GLIPIZIDE W/O REACTION tigecycline Adverse Reaction (Severe, Verified 12/18/18 10:24) MILD PANCREATITIS codeine Adverse Reaction (Intermediate, Verified 12/18/18 10:24) GI UPSET Height/Weight/Isolation Height 5 ft 4 in Weight 99.9 kg Chemistry 12/18/18 12/19/18 12/20/18 10:45 06:21 06:13 Sodium 133 L 128 L 129 L Potassium 4.1 4.8 D 4.4 Chloride 98 96 L 93 L Carbon Dioxide 26 20 L 25 Anion Gap 9.0 13.0 H 11.0 BUN 23 H 49 H D 54 H Creatinine 2.95 H 4.86 H* D 4.19 H D Glucose 88 307 H 265 H Microbiology 12/18/18 10:45 Blood Blood Culture - Preliminary No growth to date. 12/18/18 10:52 Blood Blood Culture - Preliminary No growth to date. (1) Pneumonia Pneumonia type: due to unspecified organism Laterality: right Lung location: lower lobe of lung Qualified Code(s): J18.1 - Lobar pneumonia, unspecified organism (2) Hypotension Hypotension type: hemodialysis-associated hypotension Qualified Code(s): I95.3 - Hypotension of hemodialysis (3) Atrial fibrillation Atrial fibrillation type: paroxysmal Qualified Code(s): I48.0 - Paroxysmal atrial fibrillation (4) DM type 2 (diabetes mellitus, type 2) Diabetes mellitus intermediate accountant insulin use: with care home use Diabetes mellitus complication status: with neurologic complications Diabetes mellitus complication detail: with polyneuropathy Qualified Code(s): E11.42 - Type 2 diabetes mellitus with diabetic polyneuropathy; Z79.4 - halfway (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 (5) RHF (right heart failure) Heart failure chronicity: unspecified Qualified Code(s): I50.810 - Right heart failure, unspecified (6) Hypothyroidism Hypothyroidism type: unspecified Qualified Code(s): E03.9 - Hypothyroidism, unspecified (7) HLD (hyperlipidemia) Hyperlipidemia type: unspecified Qualified Code(s): E78.5 - Hyperlipidemia, unspecified
[2018-12-20] MEDS: MIDODRINE HCL 2.5 MG TAB PO SCH ×3 (08:52→17:46)
[2018-12-20] MEDS: INSULIN ASPART 100 UNITS/ML 3 ML PEN SC SCH ×5 (08:52→23:58)
[2018-12-20] MEDS: INSULIN GLARGINE SOLOSTAR 100 UNITS/ML 3 ML PEN SC SCH ×2 (08:52→20:40)
[2018-12-20] MEDS: NYSTATIN POWDER 15GM BTL EXT SCH ×2 (08:53→20:39)
--- NOTE | 2018-12-20 09:40 | Pharmacy Report ---
Glycemic Control Progress Note - Date of Service December 20, 2018 - Scope Glycemic Pharmacist consulted for glycemic control to write orders per [facility] inpatient glycemic control protocol. - Objective Accuchecks BSG(last 24 hours):: 12/19/18 12/19/18 12/19/18 11:37 16:09 20:25 Glucose POC Glucose 130 H 180 H 287 H 12/20/18 12/20/18 06:13 07:03 Glucose 265 H POC Glucose 279 H - Recent Pertinent Medications The patient is currently receiving: * Basal insulin: Lantus 10 units in the morning and 20 units in the evening * Correctional Insulin: Novolog Correction per scale ACHS Goal Range: Low 110 mg/dL - High 140 mg/dL Correction Factor: 10 mg/dL/unit * Prandial insulin: Per carb ratio of 1 unit per 4 grams CHO consumed - Outpatient Anti-Diabetic Meds Lantus 52 units in the morning (per patient interview) - Assessment & Plan ASSESSMENT: * See progress note from 12/18/18 for more background info, in short: * Pt receiving SQ basal bolus insulin regimen for hyperglycemia secondary to baseline DM (outpatient regimen on hold),stress/infection (currently on Rocephin), and Solu-Medrol 40 mg IV q8 hours * Patient is currently receiving an average of 99 units of insulin per day * 30 units of basal insulin * 69 units of prandial/correctional insulin * BSGs ranging 130 - 307 mg/dl over the past 24hrs * Changes needed to insulin regimen: * AM Fasting BSG = 279 mg/dl. This is above goal range for patient based on i npatient targets and co-morbidities. It is much improved from yesterday. Continue current regimen and add overnight checks. Will not increase Lantus further as when off of IV steroids patient requires only 15 units of Lantus. * Post-prandial BSGs are elevated/BSGs rise throughout the day therefore need to tighten CF/CR. * Total daily dose = ~120 units. PLAN FOR INPATIENT GLYCEMIC CONTROL: * Continuing Lantus 10 units in the morning and 20 units in the evening * Tightening correction factor to 9 mg/dl/unit * Tightening carb ratio to 1 unit per 3 grams CHO consumed * Continuing goal range of Low 110 mg/dL - High 140 mg/dL RECOMMENDATIONS FOR DISCHARGE: * Continue current outpatient regimen. Patient works closely with glycemic pharmacist on the outside. * Please note that the plan above was derived based on current level of insulin resistance and hospital stress. These recommendations are appropriate for inpatient admission only. Plan of care upon discharge will need to be reassessed to avoid potential outpatient hypo/hyperglycemia. Thank you.
[2018-12-20] MEDS: cefTRIAXone SODIUM 2,000 MG in DEXTROSE 5% 50 ML IV SCH (13:04)
[2018-12-20] MEDS: WARFARIN SOD 5 MG TAB PO SCH (17:46)
[2018-12-20] MEDS: HYDROCODONE/ACETAMOPHEN 5/325MG TAB PO PRN (20:39)
[2018-12-20] MEDS: METOPROLOL SUCC 25MG EXT REL TAB PO SCH (20:39)
[2018-12-20] MEDS: ATORVASTATIN 40 MG TAB PO SCH (20:39)
[2018-12-20] MEDS: SERTRALINE HCL 50 MG TABLET PO SCH (20:39)
[2018-12-21] MEDS: methylPREDNISolone 40 MG in SYRINGE 0 ML IV SCH ×3 (01:57→21:29)
[2018-12-21 02:49] LABS: BUN Creatinine Ratio 12.1 (10-20); Calcium 8.3 mg/dl (8.5-10.1); Creatinine Clr Calc Pharmacy 10.9 ml/min; Est GFR (African American) 7.9; Est GFR (Non-African American) 6.8; Magnesium 2.4 mg/dl (1.8-2.4); Potassium 4.5 mmol/L (3.5-5.1); Troponin I 0.114 ng/ml (0-0.045)
[2018-12-21] MEDS: INSULIN ASPART 100 UNITS/ML 3 ML PEN SC SCH ×5 (04:18→22:03)
[2018-12-21] MEDS: LEVOTHYROXINE SODIUM 125 MCG TABLET PO SCH (05:26)
[2018-12-21 06:14] LABS: Hematocrit (blood only) 35.1 % (37-47); Hemoglobin 11.5 g/dL (12.0-16.0); Mean Corpuscular Hgb Conc 32.8 g/dL (32-36); Mean Corpuscular Volume 88.9 fL (80-100); Mean Platelet Volume 10.5 fL (7.4-10.4); Platelet Count 165 K/uL (130-400); RDW Coefficient of Variation 18.3 % (11.5-14.5); RDW Standard Deviation 59.6 fL (36.4-46.3); Red Blood Count 3.95 M/uL (4.2-5.4); White Blood Count 24.73 K/uL (4.8-10.8)
[2018-12-21 06:24] LABS: INR 1.3 (0.9-1.1)
[2018-12-21 06:41] LABS: Basophils # (auto) 0.01 K/uL (0-0.2); Immature Granulocytes # (auto) 0.19 K/uL (0.00-0.02); Immature Granulocytes % (auto) 0.8 %; Lymphocytes # (auto) 1.06 K/uL (1.2-3.4); Lymphocytes % (auto) 4.3 %; Monocytes # (auto) 0.56 K/uL (0.11-0.59); Monocytes % (auto) 2.3 %; Neutrophils # (auto) 22.91 K/uL (1.4-6.5); Neutrophils % (auto) 92.6 %; RBC Morphology Unremarkable
[2018-12-21 06:50] LABS: Albumin Level 2.7 gm/dl (3.4-5.0); BUN Creatinine Ratio 12.1 (10-20); Calcium 8.4 mg/dl (8.5-10.1); Creatinine Clr Calc Pharmacy 10.5 ml/min; Est GFR (African American) 7.6; Est GFR (Non-African American) 6.6; Phosphorus 6.7 mg/dl (2.5-4.9); Potassium 4.9 mmol/L (3.5-5.1)
[2018-12-21] MEDS ORDERED: SODIUM CHLORIDE 0.9% 1000ML 1,000 ML IV PRN (07:00)
[2018-12-21] MEDS ORDERED: HEPARIN SOD (PORCINE) 1000 UNIT/ML 10 ML VIAL IV ONE (07:00)
[2018-12-21] MEDS: ALBUT/IPRATROP 3MG/0.5MG NEB 3 ML VIAL NEB SCH ×4 (07:19→19:38)
--- NOTE | 2018-12-21 08:12 | Pharmacy Report ---
Pharmacy Glycemic Short Note 2 - Date of Service December 21, 2018 - Glycemic Short BSG Results (Last 24 hours): 12/20/18 12/20/18 12/20/18 11:11 16:13 20:14 Glucose POC Glucose 272 H 252 H 161 H 12/20/18 12/21/18 12/21/18 23:49 02:02 04:05 Glucose 113 H POC Glucose 107 H 147 H 12/21/18 12/21/18 05:47 07:25 Glucose 189 H POC Glucose 188 H OUTPATIENT ANTIDIABETIC REGIMEN: * Lantus 52 units in the morning (per patient interview) ASSESSMENT: 12/21 * Ms. Blevins received 143 units of insulin yesterday (30 of this being basal) * She remains on [place]-medrol 40 mg IV q8h * Fasting = 189 mg/dL; this is still above goal but it continues to improve daily. Will continue same basal dose for this reason, in addition to reason stated yesterday * Postprandial BSGs still above goal with tightening of parameters yesterday; will tighten CR further, noting that CR reductions at this point will produce large changes in insulin doses given 12/20 * Pt receiving SQ basal bolus insulin regimen for hyperglycemia secondary to baseline DM (outpatient regimen on hold),stress/infection (currently on Rocephin), and Solu-Medrol 40 mg IV q8 hours * Patient is currently receiving an average of 99 units of insulin per day * 30 units of basal insulin * 69 units of prandial/correctional insulin * BSGs ranging 130 - 307 mg/dl over the past 24hrs * Changes needed to insulin regimen: * AM Fasting BSG = 279 mg/dl. This is above goal range for patient based on inpatient targets and co-morbidities. It is much improved from yesterday. Continue current regimen and add overnight checks. Will not increase Lantus further as when off of IV steroids patient requires only 15 units of Lantus. * Post-prandial BSGs are elevated/BSGs rise throughout the day therefore nee d to tighten CF/CR. * Total daily dose = ~120 units. PLAN FOR INPATIENT GLYCEMIC CONTROL: * Basal insulin - no change but eventually may want to give larger dose in the AM to help w/ daytime BSG elevation * Lantus 10 units qAM, 20 units qPM * Bolus insulin - tighten CR * NovoLog per scale ACHS or Q6hrs while NPO * Goal Range: Low 110 mg/dL - High 140 mg/dL * Correction Factor: 9 mg/dL/unit * Nutritional / Prandial insulin per carb ratio of 1 unit per 2.5 grams CHO consumed PLAN FOR DISCHARGE: * See 12/20 note
[2018-12-21] MEDS: SEVELAMER HCL 800 MG TABLET PO SCH (08:32)
[2018-12-21] MEDS: NYSTATIN POWDER 15GM BTL EXT SCH ×2 (08:32→21:29)
[2018-12-21] MEDS: NEPHROCAPS PO SCH (08:32)
[2018-12-21] MEDS: PANTOprazole 40 MG TAB PO SCH (08:32)
[2018-12-21] MEDS: DOCUSATE SODIUM 100 MG CAP PO SCH ×2 (08:32→21:32)
[2018-12-21] MEDS: MAGNESIUM OXIDE 400 MG TAB PO SCH (08:33)
[2018-12-21] MEDS: INSULIN GLARGINE SOLOSTAR 100 UNITS/ML 3 ML PEN SC SCH ×2 (08:34→21:32)
[2018-12-21] MEDS: ASCORBIC ACID 500 MG TAB PO SCH (08:35)
[2018-12-21] MEDS: CHOLECALCIFEROL 1,000 UNITS TAB PO SCH (08:35)
[2018-12-21] MEDS: GABAPENTIN 300 MG CAP PO SCH ×2 (08:35→21:32)
[2018-12-21] MEDS: MIDODRINE HCL 10 MG TAB PO SCH ×3 (08:37→21:30)
[2018-12-21] MEDS ORDERED: MIDODRINE HCL 2.5 MG TAB PO SCH (09:00)
--- NOTE | 2018-12-21 09:36 | Hospitalist Progress Note ---
Date of Service December 21, 2018 Assessment & Plan (1) Pneumonia: RLL opacity on chest x-ray - failed outpatient therapy with prednisone and cefdinir, Still SOB and coarse B/S Right - IV Zosyn - pharmacy to dose - Solumedrol 40 mg IV Q8 hours - ATC DuoNebs with additional up to Q2 hours prn - Baseline oxygen requirement is 3-4 LPM - continue while admitted (2) Acute and chronic respiratory failure with hypoxia: See above plan of care - Suspect component of Right CHF contributing to respiratory symptoms (3) Hypotension: Chronic issue with HD - on midodrine - Continue outpatient dose of midodrine and monitor (4) Elevated troponin: Suspect demand ischemia due to pneumonia (NSTEMI, type II) - Follow troponins Q6 hours - repeat EKG if chest pain and in AM - Monitor on telemetry (5) Atrial fibrillation: On chronic Coumadin as outpatient INR supratherapeutic now 1.7 - Daily INR - No additional DVT prophylaxis ordered at this time but will need to follow INR closely (6) DM type 2 (diabetes mellitus, type 2): Pharmacist - for glycemic management, particularly since pt on solumedrol (7) RHF (right heart failure): Pt with history of chronic right-sided CHF - suspect component of pt's symptoms related to volume overload although did have 1.5 liters removed during HD today - Check ECHO (8) ESRD (end stage renal disease) on dialysis: - Nephrology for HD management including volume control (9) Hypothyroidism: - Continue outpatient levothyroxine (10) HLD (hyperlipidemia): - Continue atorvastatin as taken outpatient (11) Neuropathy: - Continue gabapentin (12) Decubitus ulcer, buttock: Noted by nursing on admission assessment - may be contributing to leukocytosis -Covered with IV Zosyn -Wound care nurse for any additional recommendations -[facility] at home Subjective Still very SOB, especially c ambulation ROS-No Headache, No Visual Changes, No Nausea, No Vomiting, No Fever, No Chills, No Neck Pain or Stiffness, No Chest Pain, No Palpitations, No SOB, No NAVARRO, No Cough, No Sputum, No Wheezing, No Abdominal Pain, No Diarrhea, No Hematemesis, No Hemoptysis, No Unexpected Weight Loss, No Flank pain, No Melena, No Hematochezia, No Frequency, No Urgency, No Burning, No Hematuria, No Rashes, No Diaphoresis. Appetite is Normal Physical Exam Gen-AAO x 3, NAD, Afebrile, BIPAP, Obese and Pleasant Head-NCAT, EOMI, PERRLA, Anicteric Sclera, No Posterior Pharyngeal Erythema Neck-Supple, No JVD, No Thyromegaly, No Masses, No LAD, No Bruits Lungs-Clear to Auscultation Left, +Rales and Rhonchi Right, No Wheezing, No Crepitus Chest-No S4, +S1, +S2, No S3, No Murmurs, No Rubs, No Gallops, No Ectopy Abdomen-Soft, Obese, Bowel Sounds Present, Non Tender, Non Distended, No Hepatomegaly, No Splenomegaly, No Palpable Masses, No Rebound, No Rigidity, No Guarding Musculoskeletal-Full Range of Motion Bilaterally, No CVAT Extremities-No Cyanosis, No Clubbing, No Edema Nuero-Cranial Nerves II-XII grossly intact, Motor WNL, DTRs WNL, Strength WNL, Non Focal Psych-Normal Mood Physical Exam Vital Signs (Past 24 Hours): Last Vital Signs Temp 36.7 C 12/21/18 06:52 Pulse 69 12/21/18 07:19 Resp 18 12/21/18 07:19 BP 110/61 12/21/18 06:52 Pulse Ox 92 12/21/18 07:19 Results & Data Laboratory Results Current Diagnoses Hypothyroidism, unspecified (12/18/18) Type 2 diabetes mellitus with diabetic polyneuropathy (12/18/18) Hyperlipidemia, unspecified (12/18/18) Polyneuropathy, unspecified (12/18/18) Paroxysmal atrial fibrillation (12/18/18) Right heart failure, unspecified (12/18/18) Hypotension of hemodialysis (12/18/18) Lobar pneumonia, unspecified organism (12/18/18) Acute and chronic respiratory failure with hypoxia (12/18/18) Pressure ulcer of unspecified buttock, unspecified stage (12/18/18) End stage renal disease (12/18/18) Abnormal levels of other serum enzymes (12/18/18) 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 (12/18/18) Dependence on renal dialysis (12/18/18) Allergies bacitracin Allergy (Intermediate, Verified 12/18/18 10:24) RASH,ITCH celecoxib Allergy (Intermediate, Verified 12/18/18 10:24) RASH TO SULFA DRUGS neomycin Allergy (Intermediate, Verified 12/18/18 10:24) RASH,ITCH polymyxin B Allergy (Intermediate, Verified 12/18/18 10:24) RASH,ITCH Sulfa (Sulfonamide Antibiotics) Allergy (Intermediate, Verified 12/18/18 10:24) RASH,HAS TAKEN GLIPIZIDE W/O REACTION tigecycline Adverse Reaction (Severe, Verified 12/18/18 10:24) MILD PANCREATITIS codeine Adverse Reaction (Intermediate, Verified 12/18/18 10:24) GI UPSET Height/Weight/Isolation Height 5 ft 4 in Weight 100.1 kg Chemistry 12/20/18 12/21/18 12/21/18 06:13 02:02 05:47 Sodium 129 L 130 L 128 L Potassium 4.4 4.5 4.9 Chloride 93 L 93 L 94 L Carbon Dioxide 25 21 21 Anion Gap 11.0 16.0 H 13.0 H BUN 54 H 72 H 75 H Creatinine 4.19 H D 5.99 H* D 6.20 H* Glucose 265 H 113 H 189 H Microbiology 12/18/18 10:45 Blood Blood Culture - Preliminary No growth to date. 12/18/18 10:52 Blood Blood Culture - Preliminary No growth to date. (1) Pneumonia Pneumonia type: due to unspecified organism Laterality: right Lung location: lower lobe of lung Qualified Code(s): J18.1 - Lobar pneumonia, unspecified organism (2) Hypotension Hypotension type: hemodialysis-associated hypotension Qualified Code(s): I95.3 - Hypotension of hemodialysis (3) Atrial fibrillation Atrial fibrillation type: paroxysmal Qualified Code(s): I48.0 - Paroxysmal atrial fibrillation (4) DM type 2 (diabetes mellitus, type 2) Diabetes mellitus prison insulin use: with terminal gauger supervisor use Diabetes mellitus complication status: with neurologic complications Diabetes mellitus complication detail: with polyneuropathy Qualified Code(s): E11.42 - Type 2 diabetes mellitus with diabetic polyneuropathy; Z79.4 - nursing home (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 (5) RHF (right heart failure) Heart failure chronicity: unspecified Qualified Code(s): I50.810 - Right heart failure, unspecified (6) Hypothyroidism Hypothyroidism type: unspecified Qualified Code(s): E03.9 - Hypothyroidism, unspecified (7) HLD (hyperlipidemia) Hyperlipidemia type: unspecified Qualified Code(s): E78.5 - Hyperlipidemia, unspecified
[2018-12-21] MEDS: cefTRIAXone SODIUM 2,000 MG in DEXTROSE 5% 50 ML IV SCH (12:37)
[2018-12-21] MEDS: LORazepam 0.5 MG TAB PO SCH (14:28)
[2018-12-21] MEDS ORDERED: ALTEPLASE, RECOMBINANT 1 MG/ML 2ML VIAL IV ONE (15:30)
[2018-12-21] MEDS: HEPARIN SOD (PORCINE) 1000 UNIT/ML 10 ML VIAL IV SCH ×3 (17:40→21:30)
--- NOTE | 2018-12-21 18:04 | Nephrology Progress Note ---
Date of Service December 21, 2018 Assessment & Plan (1) ESRD (end stage renal disease) on dialysis: on MWFSat dialysis via [facility] -She is tolerating HD well today. HD cath initially with no flow but improved with rtpa. -Target UF 3L FR -will f/u on blood culture results from [facility] (2) Acute and chronic respiratory failure with hypoxia: per primary service; -current sbp in 80-100s are normal or even on higher side for her -pls ask pharmacy to minimize volume of all meds/IV fluids Subjective ESRD complicated by PNA and volume overload. Seen in f/u. She is complaining of SOB today. She is getting HD this afternoon. HD cath blocked initially and required rtpa but then run fine. Review of Systems All systems reviewed & are unremarkable except as noted in HPI & below Physical Exam Vital Signs (Past 24 Hours): Last Vital Signs Temp 36.8 C 12/21/18 14:50 Pulse 40 L 12/21/18 17:00 Resp 22 12/21/18 11:29 BP 110/53 L 12/21/18 17:00 Pulse Ox 98 12/21/18 11:29 Physical Exam: General exam: Appears comfortable, no acute distress HEENT: Pupils are equal and reactive to light Neck: No JVD, neck is supple trachea is midline Respiratory system: crackles bilaterally. Gastrointestinal: Abdomen is soft, non distended, non tender, bowel sounds are present CVS: Regular rate and rhythm. No murmurs, rubs or gallops Musculoskeletal: No joint or muscle tenderness Extremities: Non tender, 1+ edema, peripheral pulses are present Neuro: Oriented, no tremors, no focal neurological deficits Skin: No rashes Results & Data Laboratory Results Na 128, k 4.9, Hb 11.5
[2018-12-21] MEDS: WARFARIN SOD 5 MG TAB PO SCH (21:29)
[2018-12-21] MEDS: ATORVASTATIN 40 MG TAB PO SCH (21:30)
[2018-12-21] MEDS: METOPROLOL SUCC 25MG EXT REL TAB PO SCH (21:31)
[2018-12-21] MEDS: SERTRALINE HCL 50 MG TABLET PO SCH (21:31)
[2018-12-22] MEDS: methylPREDNISolone 40 MG in SYRINGE 0 ML IV SCH ×3 (01:41→17:08)
[2018-12-22] MEDS: HYDROCODONE/ACETAMOPHEN 5/325MG TAB PO PRN (01:46)
[2018-12-22] MEDS: ALBUT/IPRATROP 3MG/0.5MG NEB 3 ML VIAL NEB SCH ×5 (02:28→20:24)
[2018-12-22] MEDS: LEVOTHYROXINE SODIUM 125 MCG TABLET PO SCH (06:05)
[2018-12-22 07:04] LABS: Hematocrit (blood only) 36.2 % (37-47); Hemoglobin 11.6 g/dL (12.0-16.0); Mean Corpuscular Volume 89.8 fL (80-100); Mean Platelet Volume 10.1 fL (7.4-10.4); Platelet Count 148 K/uL (130-400); RDW Coefficient of Variation 18.4 % (11.5-14.5); Red Blood Count 4.03 M/uL (4.2-5.4); White Blood Count 17.98 K/uL (4.8-10.8)
[2018-12-22 08:04] LABS: Albumin Level 2.9 gm/dl (3.4-5.0); BUN Creatinine Ratio 11.3 (10-20); Calcium 7.9 mg/dl (8.5-10.1); Creatinine Clr Calc Pharmacy 15.2 ml/min; Est GFR (African American) 12.3; Est GFR (Non-African American) 10.6; Phosphorus 6.1 mg/dl (2.5-4.9); Potassium 4.1 mmol/L (3.5-5.1)
[2018-12-22] MEDS: ASCORBIC ACID 500 MG TAB PO SCH (08:14)
[2018-12-22] MEDS: CHOLECALCIFEROL 1,000 UNITS TAB PO SCH (08:14)
[2018-12-22] MEDS: GABAPENTIN 300 MG CAP PO SCH (08:15)
[2018-12-22] MEDS: PANTOprazole 40 MG TAB PO SCH (08:15)
[2018-12-22] MEDS: MIDODRINE HCL 2.5 MG TAB PO SCH ×3 (08:15→17:07)
[2018-12-22] MEDS: SEVELAMER HCL 800 MG TABLET PO SCH (08:15)
[2018-12-22] MEDS: DOCUSATE SODIUM 100 MG CAP PO SCH ×2 (08:15→21:39)
[2018-12-22] MEDS: MAGNESIUM OXIDE 400 MG TAB PO SCH (08:16)
[2018-12-22] MEDS: NYSTATIN POWDER 15GM BTL EXT SCH ×2 (08:16→21:38)
[2018-12-22] MEDS: NEPHROCAPS PO SCH (08:17)
[2018-12-22] MEDS: INSULIN ASPART 100 UNITS/ML 3 ML PEN SC SCH ×4 (08:20→21:42)
--- NOTE | 2018-12-22 10:13 | Nephrology Progress Note ---
Date of Service December 22, 2018 Assessment & Plan (1) ESRD (end stage renal disease) on dialysis: on MWFSat dialysis via [facility] -She tolerated HD well yesterday with net UF of 2.9 L. HD cath initially with no flow but improved with rtpa. -Next dialysis will be tomorrow for 4 hours, blood flow 400, deficit flow 800 and Target UF 3L FR -will f/u on blood culture results from [facility] (2) Acute and chronic respiratory failure with hypoxia: Multifactorial including pneumonia and volume overload. She is getting antibiotics per primary service; will continue aggressive fluid management with dialysis -current sbp in 80-100s are normal or even on higher side for her -pls ask pharmacy to minimize volume of all meds/IV fluids Subjective ESRD complicated by PNA and volume overload. Seen in f/u. She tolerated dialysis well yesterday with net UF of 2.9 L. Her breathing is much better today. HD cath blocked initially and required rtpa but then run fine. No diarrhea or vomiting. Constitutional: + chills, + fatigue and + weakness Respiratory: as per Subjective / HPI, + cough, + chest congestion, + dyspnea, + dyspnea on exertion, + sputum production and + wheezing Cardiovascular: + lightheadedness and + edema (stable chronic); no chest pain and no palpitations Musculoskeletal: + back pain Integumentary: + non-healing lesions (sacral) Neurologic: + gait abnormality, + unsteadiness, + falls and + generalized weakness; no headache(s) and no confusion Endocrine: + fatigue Physical Exam Vital Signs (Past 24 Hours): Last Vital Signs Temp 36.8 C 12/22/18 07:13 Pulse 81 12/22/18 07:50 Resp 18 12/22/18 07:13 BP 118/76 12/22/18 07:13 Pulse Ox 92 12/22/18 07:13 Physical Exam: General exam: Appears comfortable, no acute distress HEENT: Pupils are equal and reactive to light Neck: No JVD, neck is supple trachea is midline Respiratory system: Rhonchi bilaterally. Gastrointestinal: Abdomen is soft, non distended, non tender, bowel sounds are present CVS: Regular rate and rhythm. No murmurs, rubs or gallops Musculoskeletal: No joint or muscle tenderness Extremities: Non tender, 1+ edema, peripheral pulses are present Neuro: Oriented, no tremors, no focal neurological deficits Skin: No rashes Vascular Access: Tunneled dialysis catheter Results & Data Laboratory Results Creatinine of 4.1, potassium 4.1, sodium 131
--- NOTE | 2018-12-22 11:14 | Pharmacy Report ---
Pharmacy Glycemic Short Note 2 - Date of Service December 22, 2018 - Glycemic Short BSG Results (Last 24 hours): 12/21/18 12/21/18 12/22/18 11:22 21:32 06:34 Glucose 285 H POC Glucose 161 H 151 H 12/22/18 07:27 Glucose POC Glucose 292 H OUTPATIENT ANTIDIABETIC REGIMEN: * Lantus 52 units in the morning (per patient interview) ASSESSMENT: 12/22 * Patient received 106 units of insulin yesterday (30 of this being basal) * She remains on Solu-medrol 40 mg IV q8h * Postprandial BSGs were significantly improved yesterday with the tightening of the carb ratio (as well as no candy bars that apparently the patient had on 12/20) * Fasting BSG = 292 mg/dL; I'm surprised by this because of the significant improvement seen over the past few days. She did have a late dinner last night (70 gm CHO) so maybe this is contributing? I have adjusted Lantus today to be more of a 50/50 BID split but she will still receive the same total that she has been receiving. Will wait to increase unless I see a trend. 12/21 * Ms. Blevins received 143 units of insulin yesterday (30 of this being basal) * She remains on [place]-medrol 40 mg IV q8h * Fasting = 189 mg/dL; this is still above goal but it continues to improve daily. Will continue same basal dose for this reason, in addition to reason stated yesterday * Postprandial BSGs still above goal with tightening of parameters yesterday; will tighten CR further, noting that CR reductions at this point will produce large changes in insulin doses given 12/20 * Pt receiving SQ basal bolus insulin regimen for hyperglycemia secondary to baseline DM (outpatient regimen on hold),stress/infection (currently on Rocephin), and Solu-Medrol 40 mg IV q8 hours * Patient is currently receiving an average of 99 units of insulin per day * 30 units of basal insulin * 69 units of prandial/correctional insulin * BSGs ranging 130 - 307 mg/dl over the past 24hrs * Changes needed to insulin regimen: * AM Fasting BSG = 279 mg/dl. This is above goal range for patient based on inpatient targets and co-morbidities. It is much improved from yesterday. Continue current regimen and add overnight checks. Will not increase Lantus further as when off of IV steroids patient requires only 15 units of Lantus. * Post-prandial BSGs are elevated/BSGs rise throughout the day therefore need to tighten CF/CR. * Total daily dose = ~120 units. PLAN FOR INPATIENT GLYCEMIC CONTROL: * Basal insulin - adjust to 50/50 split with BID dosing, but continuing same daily dose * Lantus 15 units BID * Bolus insulin - no change * NovoLog per scale ACHS or Q6hrs while NPO * Goal Range: Low 110 mg/dL - High 140 mg/dL * Correction Factor: 9 mg/dL/unit * Nutritional / Prandial insulin per carb ratio of 1 unit per 2.5 grams CHO consumed PLAN FOR DISCHARGE: * See 12/20 note
[2018-12-22] MEDS: INSULIN GLARGINE SOLOSTAR 100 UNITS/ML 3 ML PEN SC SCH ×2 (11:49→21:40)
[2018-12-22] MEDS: cefTRIAXone SODIUM 2,000 MG in DEXTROSE 5% 50 ML IV SCH (11:58)
[2018-12-22] MEDS: WARFARIN SOD 5 MG TAB PO SCH (17:08)
--- NOTE | 2018-12-22 19:21 | Hospitalist Progress Note ---
Date of Service December 22, 2018 Assessment & Plan (1) Pneumonia: (2) Acute and chronic respiratory failure with hypoxia: Present on admission with worsening SOB Failed outpatient therapy CXR on admission showed right lower lung opacity Starting on Zosyn then transition to Rocephin on 12/19 On solumedrol 40mg q8h, will change to 40mg BID Continue nebulizer treatment and oxygen supplement Blood cx no growth (3) Hypotension: BP stable Continue outpatient dose of midodrine (4) Elevated troponin: Mostly from ESRD and demand ischemia due to pneumonia (NSTEMI, type II) EKG showed no ischemic changes ECHO showed right ventricle severely dilated with EF >70 Continue statin, metoprolol Denies any symptoms (5) Atrial fibrillation: Rate control with metoprolol On coumadin Monitor PT/INR (6) DM type 2 (diabetes mellitus, type 2): Pharmacy on board for glycemic management Monitor BS (7) RHF (right heart failure): ECHO showed right ventricle severely dilated with EF >70 Continue monitor (8) ESRD (end stage renal disease) on dialysis: Last HD was yesterday Nephro on board Monitor BMP (9) Hypothyroidism: Continue Levothyroxine (10) HLD (hyperlipidemia): Continue atorvastatin (11) Neuropathy: Continue gabapentin (12) Decubitus ulcer, buttock: Continue wound care On Rocephin IV DVT px SCDs Subjective Pt was seen and examined Sitting in chair with no distress Pt said that she continues to have SOB with minimal exertion She said that she continues to wheeze She denies any chest pain, palpitation,dizziness and fever Physical Exam Vital Signs (Past 24 Hours): Last Vital Signs Temp 36.7 C 12/22/18 11:46 Pulse 88 12/22/18 15:25 Resp 19 12/22/18 15:25 BP 107/59 L 12/22/18 15:25 Pulse Ox 96 12/22/18 15:25 Physical Exam: General- No acute distress Head- atraumatic Eyes- PERRL, EOMI, ENT- oropharynx clear Neck- supple, no JVD Lungs- +wheezing Heart- regular rhythm; no murmur Abdomen- normal bowel sounds, soft, nontender Extremities- no calf tenderness, +edema Neuro- alert, oriented x 3; PERRL, EOMI; no facial palsy Skin- warm & dry (1) DM type 2 (diabetes mellitus, type 2) Diabetes mellitus complication detail: with polyneuropathy Diabetes mellitus complication status: with neurologic complications Diabetes mellitus lobsterman insulin use: with lobsterman use Qualified Code(s): E11.42 - Type 2 diabetes mellitus with diabetic polyneuropathy; Z79.4 - termite control technician (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 (2) Atrial fibrillation Atrial fibrillation type: paroxysmal Qualified Code(s): I48.0 - Paroxysmal atrial fibrillation (3) HLD (hyperlipidemia) Hyperlipidemia type: unspecified Qualified Code(s): E78.5 - Hyperlipidemia, unspecified (4) Hypothyroidism Hypothyroidism type: unspecified Qualified Code(s): E03.9 - Hypothyroidism, unspecified (5) RHF (right heart failure) Heart failure chronicity: unspecified Qualified Code(s): I50.810 - Right heart failure, unspecified (6) Hypotension Hypotension type: hemodialysis-associated hypotension Qualified Code(s): I95.3 - Hypotension of hemodialysis (7) Pneumonia Laterality: right Lung location: lower lobe of lung Pneumonia type: due to unspecified organism Qualified Code(s): J18.1 - Lobar pneumonia, unspecified organism
[2018-12-22] MEDS: LIDOCAINE 4% CREAM 15 GM TUBE EXT PRN (21:36)
[2018-12-22] MEDS: SERTRALINE HCL 50 MG TABLET PO SCH (21:37)
[2018-12-22] MEDS: ATORVASTATIN 40 MG TAB PO SCH (21:37)
[2018-12-22] MEDS: METOPROLOL SUCC 25MG EXT REL TAB PO SCH (21:38)
[2018-12-23] MEDS ORDERED: INSULIN ASPART 100 UNITS/ML 3 ML PEN SC ONE (02:00)
[2018-12-23] MEDS: methylPREDNISolone 40 MG in SYRINGE 0 ML IV SCH ×3 (02:47→21:17)
[2018-12-23 05:42] LABS: Hematocrit (blood only) 35.6 % (37-47); Hemoglobin 11.4 g/dL (12.0-16.0); Mean Corpuscular Volume 90.8 fL (80-100); Mean Platelet Volume 9.7 fL (7.4-10.4); Platelet Count 141 K/uL (130-400); RDW Coefficient of Variation 18.2 % (11.5-14.5); RDW Standard Deviation 60.5 fL (36.4-46.3); Red Blood Count 3.92 M/uL (4.2-5.4); White Blood Count 22.18 K/uL (4.8-10.8)
[2018-12-23 05:56] LABS: INR 1.5 (0.9-1.1); Prothrombin Time 14.6 Seconds (9.0-12.0)
[2018-12-23] MEDS: LEVOTHYROXINE SODIUM 125 MCG TABLET PO SCH (06:15)
[2018-12-23 06:23] LABS: BUN Creatinine Ratio 12.3 (10-20); Calcium 8.5 mg/dl (8.5-10.1); Creatinine Clr Calc Pharmacy 10.5 ml/min; Est GFR (African American) 7.7; Est GFR (Non-African American) 6.6; Potassium 4.4 mmol/L (3.5-5.1)
[2018-12-23] MEDS: ALBUT/IPRATROP 3MG/0.5MG NEB 3 ML VIAL NEB SCH ×4 (07:04→19:16)
[2018-12-23] MEDS ORDERED: SODIUM CHLORIDE 0.9% 1000ML 1,000 ML IV PRN (07:23)
[2018-12-23] MEDS: INSULIN GLARGINE SOLOSTAR 100 UNITS/ML 3 ML PEN SC SCH ×2 (08:22→21:18)
[2018-12-23] MEDS: MIDODRINE HCL 10 MG TAB PO SCH ×3 (08:22→21:23)
[2018-12-23] MEDS: DOCUSATE SODIUM 100 MG CAP PO SCH ×2 (08:22→21:17)
[2018-12-23] MEDS: INSULIN ASPART 100 UNITS/ML 3 ML PEN SC SCH ×4 (08:23→21:20)
[2018-12-23] MEDS: LORazepam 0.5 MG TAB PO SCH (08:25)
[2018-12-23] MEDS: POLYETHYLENE (MIRALAX) 17 GM PACK PO PRN (08:25)
--- NOTE | 2018-12-23 14:04 | Pharmacy Report ---
Pharmacy Glycemic Short Note 2 - Date of Service December 23, 2018 - Glycemic Short BSG Results (Last 24 hours): 12/22/18 12/22/18 12/22/18 16:29 20:36 23:10 Glucose POC Glucose 103 H 168 H 201 H 12/23/18 12/23/18 02:25 05:26 Glucose 189 H POC Glucose 253 H OUTPATIENT ANTIDIABETIC REGIMEN: * Lantus 52 units in the morning (per patient interview) ASSESSMENT: * Patient currently receiving 100-140 units of insulin per day with poor control * Pt remains on Solumedrol 40mg IV Q8hrs which is contributing to steroid induced hyperglycemia. * AM fasting BSG still elevated at 253 mg/dl. Patient received 13 units of NovoLog at 0200 to cover hyperglycemia. Will add this 13 units into total basal dose (additional 5-6 units BID) * Pt at HD over lunch time. Most likely will receive a late lunch tray. Will make sure that CHO from lunch are covered at whatever time they are consumed * OK that regimen is heavily weighted towards prandial coverage as steroids have their most profound effect on post-prandial hyperglycemia. * Additionally, per previous admissions, Pt requires significantly less insulin per day when NOT on steroids. Insulin regimen will need tapered with each step down in steroid dosing. PLAN FOR INPATIENT GLYCEMIC CONTROL: * Basal insulin - increase dosing * Lantus 20 units BID * Bolus insulin - no change * NovoLog per scale ACHS or Q6hrs while NPO * Goal Range: Low 110 mg/dL - High 140 mg/dL * Correction Factor: 9 mg/dL/unit * Nutritional / Prandial insulin per carb ratio of 1 unit per 2.5 grams CHO consumed PLAN FOR DISCHARGE: * See 12/20 note
[2018-12-23] MEDS: NEPHROCAPS PO SCH (15:26)
[2018-12-23] MEDS: WARFARIN SOD 5 MG TAB PO SCH (15:26)
[2018-12-23] MEDS: ATORVASTATIN 40 MG TAB PO SCH (15:26)
[2018-12-23] MEDS: CHOLECALCIFEROL 1,000 UNITS TAB PO SCH (15:26)
[2018-12-23] MEDS: ASCORBIC ACID 500 MG TAB PO SCH (15:27)
[2018-12-23] MEDS: GABAPENTIN 300 MG CAP PO SCH ×2 (15:27→19:17)
[2018-12-23] MEDS: NYSTATIN POWDER 15GM BTL EXT SCH ×2 (15:27→21:17)
[2018-12-23] MEDS: PANTOprazole 40 MG TAB PO SCH (15:27)
[2018-12-23] MEDS: SEVELAMER HCL 800 MG TABLET PO SCH (15:28)
[2018-12-23] MEDS: MAGNESIUM OXIDE 400 MG TAB PO SCH (15:28)
[2018-12-23] MEDS: cefTRIAXone SODIUM 2,000 MG in DEXTROSE 5% 50 ML IV SCH (16:00)
--- NOTE | 2018-12-23 20:53 | Nephrology Progress Note ---
Date of Service December 23, 2018 Assessment & Plan (1) ESRD (end stage renal disease) on dialysis: on MWFSat dialysis via TDC -She was seen on HD. She is tolerating HD well.WIll plan HD for 4.15hrs and target UF of 3 L. HD cath initially with no venous flow but improved. -Next dialysis will be friday for 4 hours, blood flow 400, deficit flow 800 and Target UF 3L FR -will f/u on blood culture results from [facility] -Consult Vascular surgery for TDC exchange (2) Acute and chronic respiratory failure with hypoxia: Multifactorial including pneumonia and volume overload. She is getting antibiotics per primary service; will continue aggressive fluid management with dialysis -BP is better Subjective ESRD complicated by PNA and volume overload. Seen in f/u. She was seen and examined on dialysis. HD cath with no venous pull but eventually run fine. No diarrhea or vomiting. Review of Systems All systems reviewed & are unremarkable except as noted in HPI & below Physical Exam Vital Signs (Past 24 Hours): Last Vital Signs Temp 36.5 C 12/23/18 19:03 Pulse 84 12/23/18 19:22 Resp 18 12/23/18 19:22 BP 113/72 12/23/18 19:03 Pulse Ox 96 12/23/18 19:22 Physical Exam: General exam: Appears comfortable, no acute distress HEENT: Pupils are equal and reactive to light Neck: No JVD, neck is supple trachea is midline Respiratory system: wheezing bilaterally. Gastrointestinal: Abdomen is soft, non distended, non tender, bowel sounds are present CVS: Regular rate and rhythm. No murmurs, rubs or gallops Musculoskeletal: No joint or muscle tenderness Extremities: Non tender, no edema, peripheral pulses are present Neuro: Oriented, no tremors, no focal neurological deficits Skin: No rashes Access: TDC
--- NOTE | 2018-12-23 21:08 | Hospitalist Progress Note ---
Date of Service December 23, 2018 Assessment & Plan (1) Pneumonia: Present on admission with worsening SOB Failed outpatient therapy CXR on admission showed right lower lung opacity Starting on Zosyn then transition to Rocephin on 12/19 On solumedrol 40mg q8h, will change to 40mg BID Continue nebulizer treatment and oxygen supplement If no improvement, will consult pulmonology (2) Acute and chronic respiratory failure with hypoxia: Present on admission with worsening SOB Failed outpatient therapy CXR on admission showed right lower lung opacity Starting on Zosyn then transition to Rocephin on 12/19 On solumedrol 40mg q8h, will change to 40mg BID Continue nebulizer treatment and oxygen supplement Blood cx no growth (3) Hypotension: BP stable Continue outpatient dose of midodrine (4) Elevated troponin: Mostly from ESRD and demand ischemia due to pneumonia (NSTEMI, type II) EKG showed no ischemic changes ECHO showed right ventricle severely dilated with EF >70 Continue statin, metoprolol Denies any symptoms (5) Atrial fibrillation: Rate control with metoprolol On coumadin Monitor PT/INR (6) DM type 2 (diabetes mellitus, type 2): Pharmacy on board for glycemic management Monitor BS (7) RHF (right heart failure): ECHO showed right ventricle severely dilated with EF >70 Continue monitor (8) ESRD (end stage renal disease) on dialysis: Had HD done today Nephro on board Monitor BMP (9) Hypothyroidism: Continue Levothyroxine (10) HLD (hyperlipidemia): Continue atorvastatin (11) Neuropathy: Continue gabapentin (12) Decubitus ulcer, buttock: Continue wound care On Rocephin IV DVT px SCDs Subjective Pt was seen and examined Lying in bed with no distress Pt had HD done today She continues to wheeze She said that she does have SOB with minimal exertion Denies any chest pain and palpitation Physical Exam Vital Signs (Past 24 Hours): Last Vital Signs Temp 36.5 C 12/23/18 19:03 Pulse 84 12/23/18 19:22 Resp 18 12/23/18 19:22 BP 113/72 12/23/18 19:03 Pulse Ox 96 12/23/18 19:22 Physical Exam: General- No acute distress Head- atraumatic Eyes- PERRL, EOMI, ENT- oropharynx clear Neck- supple, no JVD Lungs- +wheezing Heart- regular rhythm; no murmur Abdomen- normal bowel sounds, soft, nontender Extremities- no calf tenderness, +edema Neuro- alert, oriented x 3; PERRL, EOMI; no facial palsy Skin- warm & dry (1) DM type 2 (diabetes mellitus, type 2) Diabetes mellitus complication detail: with polyneuropathy Diabetes mellitus complication status: with neurologic complications Diabetes mellitus termite control servicer insulin use: with termite control servicer use Qualified Code(s): E11.42 - Type 2 diabetes mellitus with diabetic polyneuropathy; Z79.4 - MCC (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 (2) Atrial fibrillation Atrial fibrillation type: paroxysmal Qualified Code(s): I48.0 - Paroxysmal atrial fibrillation (3) HLD (hyperlipidemia) Hyperlipidemia type: unspecified Qualified Code(s): E78.5 - Hyperlipidemia, unspecified (4) Hypothyroidism Hypothyroidism type: unspecified Qualified Code(s): E03.9 - Hypothyroidism, unspecified (5) RHF (right heart failure) Heart failure chronicity: unspecified Qualified Code(s): I50.810 - Right heart failure, unspecified (6) Hypotension Hypotension type: hemodialysis-associated hypotension Qualified Code(s): I95.3 - Hypotension of hemodialysis (7) Pneumonia Laterality: right Lung location: lower lobe of lung Pneumonia type: due to unspecified organism Qualified Code(s): J18.1 - Lobar pneumonia, unspecified organism
[2018-12-23] MEDS: METOPROLOL SUCC 25MG EXT REL TAB PO SCH (21:17)
[2018-12-23] MEDS: SERTRALINE HCL 50 MG TABLET PO SCH (21:18)
[2018-12-23] MEDS: HYDROCODONE/ACETAMOPHEN 5/325MG TAB PO PRN (21:30)
[2018-12-24] MEDS: methylPREDNISolone 40 MG in SYRINGE 0 ML IV SCH ×2 (05:49→13:35)
[2018-12-24] MEDS: LEVOTHYROXINE SODIUM 125 MCG TABLET PO SCH (05:49)
[2018-12-24] MEDS: ALBUT/IPRATROP 3MG/0.5MG NEB 3 ML VIAL NEB SCH ×4 (07:02→18:57)
[2018-12-24] MEDS ORDERED: CEFAZOLIN 2000MG 2,000 MG/15 ML SYR IV ONE (07:35)
[2018-12-24] MEDS: INSULIN ASPART 100 UNITS/ML 3 ML PEN SC SCH ×5 (07:47→20:49)
[2018-12-24] MEDS: INSULIN GLARGINE SOLOSTAR 100 UNITS/ML 3 ML PEN SC SCH ×2 (07:47→20:57)
--- NOTE | 2018-12-24 07:48 | Communication Note ---
Date of Service: December 24, 2018 Due to or scheduling we will plan on changing the PermCath first thing Friday morning at 8 AM.
[2018-12-24 09:22] LABS: Eosinophils # (auto) 0.01 K/uL (0-0.5); Hemoglobin 11.6 g/dL (12.0-16.0); Immature Granulocytes # (auto) 0.24 K/uL (0.00-0.02); Immature Granulocytes % (auto) 1.2 %; Lymphocytes # (auto) 0.85 K/uL (1.2-3.4); Lymphocytes % (auto) 4.2 %; Mean Corpuscular Hgb Conc 31.4 g/dL (32-36); Mean Corpuscular Volume 92.5 fL (80-100); Mean Platelet Volume 9.8 fL (7.4-10.4); Monocytes # (auto) 0.15 K/uL (0.11-0.59); Monocytes % (auto) 0.7 %; Neutrophils # (auto) 18.97 K/uL (1.4-6.5); Neutrophils % (auto) 93.9 %; Platelet Count 134 K/uL (130-400); RDW Coefficient of Variation 18.2 % (11.5-14.5); RDW Standard Deviation 61.4 fL (36.4-46.3); White Blood Count 20.22 K/uL (4.8-10.8)
--- NOTE | 2018-12-24 09:41 | Surgery Consultation ---
Date of Consultation December 24, 2018 Assessment & Plan (1) Hemodialysis catheter malfunction: Will exchange permcath tomorrow morning at 8am. I have discussed the risks options and benefits of the procedure with the patient. The patient understands the risks options and benefits and agrees to the procedure. History of Present Illness Reason for Consultation: Malfunctioning permcath Attending Physician: Miguel Ángel Gentile MD History of Present Illness The patient is a 62 year old female with multiple medical problems, including ESRD on HD, HTN, DMII, A fib, seen for malfunctioning right neck permcath. Denies ARNOLD, fever, chills, chest pain, SOB, abd pain, n/V, rest pain, claudication, other complaints. Allergies Allergy/AdvReac Type Severity Reaction Status Date / Time bacitracin Allergy Intermediate RASH,ITCH Verified 12/18/18 10:24 celecoxib Allergy Intermediate RASH TO Verified 12/18/18 10:24 SULFA DRUGS neomycin Allergy Intermediate RASH,ITCH Verified 12/18/18 10:24 polymyxin B Allergy Intermediate RASH,ITCH Verified 12/18/18 10:24 Sulfa (Sulfonamide Allergy Intermediate RASH,HAS Verified 12/18/18 10:24 Antibiotics) TAKEN GLIPIZIDE W/O REACTION tigecycline AdvReac Severe MILD Verified 12/18/18 10:24 PANCREATITIS codeine AdvReac Intermediate GI UPSET Verified 12/18/18 10:24 Home Medications Home Medications Medication Instructions Recorded Confirmed Type albuterol sulfate 2.5 mg/3 mL 1.25 mg INH Q4H PRN 06/01/18 12/18/18 History (0.083 %) solution for nebulization albuterol sulfate HFA 90 2 puffs INH Q6H PRN 06/01/18 12/18/18 History mcg/actuation aerosol inhaler ascorbic acid (vitamin C) 500 mg 500 mg PO DAILY cap 06/01/18 12/18/18 History capsule atorvastatin 40 mg tablet 40 mg PO HS 06/01/18 12/18/18 History cholecalciferol (vitamin D3) 1,000 1,000 units PO DAILY 06/01/18 12/18/18 History unit capsule gabapentin 400 mg capsule 400 mg PO BID 06/01/18 12/18/18 History hydrocodone 5 mg-acetaminophen 325 1 tab PO Q6H PRN 06/01/18 12/18/18 History mg tablet insulin glargine (U-100) 100 52 units SQ HS 06/01/18 12/18/18 History unit/mL (3 mL) subcutaneous pen levothyroxine 125 mcg tablet 125 mcg PO QAM 06/01/18 12/18/18 History magnesium oxide 400 mg (241.3 mg 400 mg PO DAILY tab 06/01/18 12/18/18 History magnesium) tablet metoprolol succinate ER 25 mg 25 mg PO HS 06/01/18 12/18/18 History capsule sprinkle, ext. release 24 hr pantoprazole 20 mg tablet,delayed 20 mg PO QAM 06/01/18 12/18/18 History release sertraline 100 mg tablet 150 mg PO DAILY tab 06/01/18 12/18/18 History Anoro Ellipta 1 inh INHALATION DAILY 06/22/18 12/18/18 History docusate sodium [Colace] 100 mg PO BID 06/22/18 12/18/18 History nystatin 1 applic TOPICAL BID 06/22/18 12/18/18 History prednisone 5 mg PO DAILY 06/22/18 12/18/18 History lorazepam 0.5 mg PO UD PRN 07/15/18 12/18/18 History [place] Caps 1 cap PO DAILY 08/12/18 12/18/18 History warfarin 5 mg PO 3XWK 08/12/18 12/18/18 History midodrine 5 mg PO TID #90 tab 08/14/18 12/18/18 Rx warfarin 7.5 mg PO 4XWK 12/18/18 12/18/18 History Patient History Medical History Chronic knee pain (Chronic) COPD exacerbation (Resolved) Sleep apnea (Chronic) Chronic anemia (Chronic) Pneumonia (Acute) Generalized weakness (Resolved) Iron (Fe) deficiency anemia (Chronic) Morbid obesity (Chronic) Obesity hypoventilation syndrome (Chronic) Pressure ulcer Atrial fibrillation (Chronic) Pulmonary HTN (Chronic) COPD (chronic obstructive pulmonary disease) (Chronic) DM type 2 (diabetes mellitus, type 2) (Chronic) HTN (hypertension) (Chronic) RHF (right heart failure) (Chronic) Chronic respiratory failure with hypoxia (Chronic) ESRD (end stage renal disease) on dialysis (Chronic) Hypothyroidism (Chronic) Depression (Chronic) HLD (hyperlipidemia) (Chronic) Neuropathy (Chronic) Diabetic gastroparesis (Chronic) H/O deep venous thrombosis (Resolved) ESRD (end stage renal disease) on dialysis (Inactive) Surgical History History of tracheostomy History of hernia repair (Resolved) Status post laparoscopic cholecystectomy (Resolved) S/P debridement (Chronic) "08/30/2016- debridement bilateral lower extremity and buttock wounds" Hx of cholecystectomy (Resolved) Family History Other CKD (chronic kidney disease) Coronary heart disease Social History Preferred Language: German Communication Ability: Effective Beliefs That Will Affect Care: None marital status: Current Living Situation: Spouse Feels Safe at Home: Yes Smoking Status: Former smoker Hx Alcohol Use: No Hx Substance Use: No Review of Systems Constitutional: No chills, No fever, No malaise Skin: No change in color Eyes: No visual changes ENMT: No sore throat Respiratory: No cough, No hemoptysis, No short of breath Cardiovascular: No edema, No chest pain, No palpitations, No syncope, No intermittent claudication Gastrointestinal: No abdominal pain, No nausea, No vomiting Genitourinary - Female: No dysuria, No hematuria Neurologic: No dizziness, No headache, No numbness, No tingling Physical Exam Vital Signs (Past 24 Hours): Last Vital Signs Temp 36.5 C 12/24/18 06:58 Pulse 86 12/24/18 07:02 Resp 18 12/24/18 07:02 BP 108/68 12/24/18 06:58 Pulse Ox 98 12/24/18 07:02 Constitutional: General Apperance: well-developed, obese Level of Distress: NAD, Psychiatric: Mental Status: active & alert, normal mood, normal affect Orientation: oriented except where noted, to time, to place, to person Memory: recent memory normal, remote memory normal Head: normocephalic, atraumatic Neck: supple, trachea midline, right int jug permcath in place Lungs: Respiratory effort: no dyspnea Auscultation: no rales/crackles, no rhonchi, decreased breath sounds Cardiovascular: Heart Auscultation: RRR, no rubs, no gallops Peripheral Pulses: Pulses: full and equal, in all extremities except if noted Bruits: none appreciated Carotid Pulse: normal on the left, normal on the right Brachial Pulses: normal on the left, normal on the right Radial Pulse: normal on the left, normal on the right Femoral Pulse: normal on the left, normal on the right Posterior Tibialis Pulse: decreased on the left, decreased on the right Dorsalis Pedis Pulse: decreased on the left, decreased on the right Abdomen: Bowel Sounds: normal Inspection & Palpation: soft, non-distended, no tenderness, guarding & rebound, Musculoskeletal: normal strength (5/5 throughout), normal tone Extremities: Upper Right: no cyanosis, no edema, no varicosities Upper Left: no cyanosis, no edema, no varicosities Lower Right: no cyanosis, no varicosities, no palpable cord, edema Lower Left: no cyanosis, no varicosities, no palpable cord, edema Neurologic: Cranial Nerves: grossly intact Sensation: grossly intact
[2018-12-24 10:03] LABS: BUN Creatinine Ratio 12.4 (10-20); Calcium 8.8 mg/dl (8.5-10.1); Creatinine Clr Calc Pharmacy 11.5 ml/min; Est GFR (African American) 8.6; Est GFR (Non-African American) 7.4
[2018-12-24 10:25] LABS: Beta-Hydroxybutyrate 1.97 mg/dl (0.2-2.81)
[2018-12-24] MEDS: NYSTATIN POWDER 15GM BTL EXT SCH ×2 (10:47→21:06)
[2018-12-24] MEDS: MIDODRINE HCL 2.5 MG TAB PO SCH ×3 (10:47→17:52)
[2018-12-24] MEDS: DOCUSATE SODIUM 100 MG CAP PO SCH ×2 (10:47→20:59)
[2018-12-24] MEDS: CHOLECALCIFEROL 1,000 UNITS TAB PO SCH (11:25)
[2018-12-24] MEDS: PANTOprazole 40 MG TAB PO SCH (11:25)
[2018-12-24] MEDS: NEPHROCAPS PO SCH (11:25)
[2018-12-24] MEDS: SEVELAMER HCL 800 MG TABLET PO SCH (11:25)
[2018-12-24] MEDS: ASCORBIC ACID 500 MG TAB PO SCH (11:25)
[2018-12-24] MEDS: MAGNESIUM OXIDE 400 MG TAB PO SCH (11:25)
[2018-12-24] MEDS: GABAPENTIN 300 MG CAP PO SCH (11:25)
--- NOTE | 2018-12-24 13:14 | Pharmacy Report ---
Pharmacy Glycemic Short Note 2 - Date of Service December 24, 2018 - Glycemic Short BSG Results (Last 24 hours): 12/23/18 12/23/18 12/23/18 15:04 16:33 20:07 Glucose POC Glucose 162 H 232 H 133 H 12/24/18 12/24/18 12/24/18 07:27 07:46 09:07 Glucose 353 H* POC Glucose 405 H* 389 H* 12/24/18 12/24/18 09:39 11:45 Glucose POC Glucose 319 H 176 H OUTPATIENT ANTIDIABETIC REGIMEN: * Lantus 52 units in the morning (per patient interview) * HbA1c: not useful to interpret, in the setting of dialysis ASSESSMENT: 12/24/18 * Patient had severe hyperglycemia this morning (BSG >400). Suspect that this is due to disruptions in her meal times and Novolog administration times yesterday d/t dialysis session. Patient also reports having a bowl of cereal late last night, which was not covered. * With correction, BSG has improved pre-lunch. * Patient is expected to be NPO after midnight again tonight for a procedure tomorrow. 12/23/18 * Patient currently receiving 100-140 units of insulin per day with poor control * Pt remains on Solumedrol 40mg IV Q8hrs which is contributing to steroid induced hyperglycemia. * AM fasting BSG still elevated at 253 mg/dl. Patient received 13 units of NovoLog at 0200 to cover hyperglycemia. Will add this 13 units into total basal dose (additional 5-6 units BID) * Pt at HD over lunch time. Most likely will receive a late lunch tray. Will make sure that CHO from lunch are covered at whatever time they are consumed * OK that regimen is heavily weighted towards prandial coverage as steroids have their most profound effect on post-prandial hyperglycemia. * Additionally, per previous admissions, Pt requires significantly less insulin per day when NOT on steroids. Insulin regimen will need tapered with each step down in steroid dosing. PLAN FOR INPATIENT GLYCEMIC CONTROL: * Basal insulin - * Lantus 20 units BID * Bolus insulin - no change * NovoLog per scale ACHS or Q6hrs while NPO * Goal Range: Low 110 mg/dL - High 140 mg/dL * Correction Factor: 9 mg/dL/unit * Nutritional / Prandial insulin per carb ratio of 1 unit per 2.5 grams CHO consumed PLAN FOR DISCHARGE: * See 12/20 note
[2018-12-24] MEDS: cefTRIAXone SODIUM 2,000 MG in DEXTROSE 5% 50 ML IV SCH (13:34)
--- NOTE | 2018-12-24 17:25 | Nephrology Progress Note ---
Date of Service December 24, 2018 Assessment & Plan (1) ESRD (end stage renal disease) on dialysis: on MWFSat dialysis via [facility] -She tolerated HD yesterday for 4.15hrs and target UF of 3 L. HD cath initially with no venous flow but improved. She was seen by vascular and planned for CVC exchange tomorrow -Next dialysis will be friday for 4.15 hours, blood flow 400, deficit flow 800 and Target UF 3L FR -will f/u on blood culture results from [facility] (2) Acute and chronic respiratory failure with hypoxia: Multifactorial including pneumonia and volume overload. She is getting antibiotics per primary service; will continue aggressive fluid management with dialysis -BP is better Subjective ESRD complicated by PNA and volume overload. Seen in f/u. She tolerated HD well yesterday. No SOB today. HD cath with no venous pull but eventually run fine. No diarrhea or vomiting. SHe is planned for CVC exchange tomorrow Review of Systems All systems reviewed & are unremarkable except as noted in HPI & below Constitutional: + chills, + fatigue and + weakness Respiratory: as per Subjective / HPI, + cough, + chest congestion, + dyspnea, + dyspnea on exertion, + sputum production and + wheezing Cardiovascular: + lightheadedness and + edema (stable chronic); no chest pain and no palpitations Musculoskeletal: + back pain Integumentary: + non-healing lesions (sacral) Neurologic: + gait abnormality, + unsteadiness, + falls and + generalized weakness; no headache(s) and no confusion Endocrine: + fatigue Physical Exam Vital Signs (Past 24 Hours): Last Vital Signs Temp 36.8 C 12/24/18 15:03 Pulse 87 12/24/18 15:38 Resp 16 12/24/18 15:38 BP 107/69 12/24/18 15:03 Pulse Ox 96 12/24/18 15:38 Physical Exam: General exam: Appears comfortable, no acute distress HEENT: Pupils are equal and reactive to light Neck: No JVD, neck is supple trachea is midline Respiratory system: Clear breath sounds bilaterally. Gastrointestinal: Abdomen is soft, non distended, non tender, bowel sounds are present CVS: Regular rate and rhythm. No murmurs, rubs or gallops Musculoskeletal: No joint or muscle tenderness Extremities: Non tender, no edema, peripheral pulses are present Neuro: Oriented, no tremors, no focal neurological deficits Skin: No rashes Access: right IJ
--- NOTE | 2018-12-24 20:05 | Hospitalist Progress Note ---
Date of Service December 24, 2018 Assessment & Plan (1) Pneumonia: Present on admission with worsening SOB Failed outpatient therapy CXR on admission showed right lower lung opacity Starting on Zosyn then transition to Rocephin on 12/19 On solumedrol 40mg q8h, will change to 40mg BID Continue nebulizer treatment and oxygen supplement If no improvement, will consult pulmonology Will check blood cx that was done at [facility] (2) Acute and chronic respiratory failure with hypoxia: Present on admission with worsening SOB Failed outpatient therapy CXR on admission showed right lower lung opacity Starting on Zosyn then transition to Rocephin on 12/19 On solumedrol 40mg q8h, will change to 40mg BID Continue nebulizer treatment and oxygen supplement Blood cx no growth (3) Hypotension: BP stable Continue outpatient dose of midodrine (4) Elevated troponin: Mostly from ESRD and demand ischemia due to pneumonia (NSTEMI, type II) EKG showed no ischemic changes ECHO showed right ventricle severely dilated with EF >70 Continue statin, metoprolol Denies any symptoms (5) Atrial fibrillation: Rate control with metoprolol Will hold coumadin for tonight INR 1.5 today Monitor PT/INR (6) DM type 2 (diabetes mellitus, type 2): Pharmacy on board for glycemic management Monitor BS (7) RHF (right heart failure): ECHO showed right ventricle severely dilated with EF >70 Continue monitor (8) ESRD (end stage renal disease) on dialysis: Will get HD done tomorrow Plan to get PermCath exchange in am Will make NPO after midnight Nephro on board Monitor BMP (9) Hypothyroidism: Continue Levothyroxine (10) HLD (hyperlipidemia): Continue atorvastatin (11) Neuropathy: Continue gabapentin (12) Decubitus ulcer, buttock: Continue wound care On Rocephin IV DVT px SCDs Subjective Pt was seen and examined Sitting in chair with no distress Pt said that her breathing feels alittle better denies any chest pain, palpitation and fever Physical Exam Vital Signs (Past 24 Hours): Last Vital Signs Temp 36.8 C 12/24/18 15:03 Pulse 78 12/24/18 19:00 Resp 18 12/24/18 19:00 BP 107/69 12/24/18 15:03 Pulse Ox 96 12/24/18 19:00 Physical Exam: General- No acute distress Head- atraumatic Eyes- PERRL, EOMI, ENT- oropharynx clear Neck- supple, no JVD Lungs- +wheezing Heart- regular rhythm; no murmur Abdomen- normal bowel sounds, soft, nontender Extremities- no calf tenderness, +edema Neuro- alert, oriented x 3; PERRL, EOMI; no facial palsy Skin- warm & dry (1) DM type 2 (diabetes mellitus, type 2) Diabetes mellitus complication detail: with polyneuropathy Diabetes mellitus complication status: with neurologic complications Diabetes mellitus shelter insulin use: with shelter use Qualified Code(s): E11.42 - Type 2 diabetes mellitus with diabetic polyneuropathy; Z79.4 - halfway (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 (2) Atrial fibrillation Atrial fibrillation type: paroxysmal Qualified Code(s): I48.0 - Paroxysmal atrial fibrillation (3) HLD (hyperlipidemia) Hyperlipidemia type: unspecified Qualified Code(s): E78.5 - Hyperlipidemia, unspecified (4) Hypothyroidism Hypothyroidism type: unspecified Qualified Code(s): E03.9 - Hypothyroidism, unspecified (5) RHF (right heart failure) Heart failure chronicity: unspecified Qualified Code(s): I50.810 - Right heart failure, unspecified (6) Hypotension Hypotension type: hemodialysis-associated hypotension Qualified Code(s): I95.3 - Hypotension of hemodialysis (7) Pneumonia Laterality: right Lung location: lower lobe of lung Pneumonia type: due to unspecified organism Qualified Code(s): J18.1 - Lobar pneumonia, unspecified organism
[2018-12-24] MEDS: SERTRALINE HCL 50 MG TABLET PO SCH (20:58)
[2018-12-24] MEDS: HYDROCODONE/ACETAMOPHEN 5/325MG TAB PO PRN (20:59)
[2018-12-24] MEDS: METOPROLOL SUCC 25MG EXT REL TAB PO SCH (20:59)
[2018-12-24] MEDS: ATORVASTATIN 40 MG TAB PO SCH (20:59)
[2018-12-24] MEDS ORDERED: INSULIN GLARGINE SOLOSTAR 100 UNITS/ML 3 ML PEN SC SCH (21:00)
[2018-12-25] MEDS: LEVOTHYROXINE SODIUM 125 MCG TABLET PO SCH (06:19)
[2018-12-25] MEDS: ALBUT/IPRATROP 3MG/0.5MG NEB 3 ML VIAL NEB SCH ×4 (07:06→19:02)
[2018-12-25 07:09] LABS: Hematocrit (blood only) 36.4 % (37-47); Hemoglobin 11.7 g/dL (12.0-16.0); Mean Corpuscular Hgb Conc 32.1 g/dL (32-36); Mean Corpuscular Volume 91.2 fL (80-100); Platelet Count 157 K/uL (130-400); RDW Coefficient of Variation 17.9 % (11.5-14.5); RDW Standard Deviation 59.6 fL (36.4-46.3); Red Blood Count 3.99 M/uL (4.2-5.4); White Blood Count 24.44 K/uL (4.8-10.8)
--- NOTE | 2018-12-25 07:39 | History & Physical Bridge Note ---
Date of Service December 25, 2018 History & Physical Bridge Note Patient for exchange of permcath. I have discussed the risks options and benefits of the procedure with the patient. The patient understands the risks options and benefits and agrees to the procedure. I have examined the patient, reviewed the History & Physical and in the interval since the performance of the History & Physical I have noted the following changes of clinical significance: no changes noted
[2018-12-25] MEDS ORDERED: fentaNYL citrate 100 MCG/2 ML VIAL ONE (07:42)
[2018-12-25] MEDS ORDERED: MIDAZOLAM HCL 1 MG/ML 2ML VIAL ONE (07:42)
[2018-12-25] MEDS ORDERED: LIDOCAINE HCL 1% 20 ML VIAL ONE (07:42)
[2018-12-25] MEDS ORDERED: HEPARIN SOD (PORCINE) 5,000 UNITS/ML VIAL ONE (07:42)
[2018-12-25 07:55] LABS: BUN Creatinine Ratio 14.5 (10-20); Calcium 8.4 mg/dl (8.5-10.1); Creatinine Clr Calc Pharmacy 8.9 ml/min; Est GFR (African American) 6.3; Est GFR (Non-African American) 5.4
[2018-12-25] MEDS ORDERED: HEPARIN SOD (PORCINE) 1000 UNIT/ML 10 ML VIAL IV ONE (08:02)
[2018-12-25] MEDS ORDERED: SODIUM CHLORIDE 0.9% 1000ML 1,000 ML IV PRN (08:02)
--- NOTE | 2018-12-25 08:06 | Pre Anesthesia Assessment ---
Date of Service December 25, 2018 Pre Sedation Assessment Vital Signs Temp Pulse Pulse Resp BP BP Pulse Ox 12/25/18 07:22 36.6 C 88 20 111/71 93 12/25/18 07:06 36.9 C 76 16 110/73 96 12/25/18 04:50 85 16 98 12/25/18 03:09 36.4 C L 83 18 109/76 96 12/25/18 01:50 88 20 96 12/25/18 00:11 96 H 18 98 12/24/18 23:27 36.4 C L 18 130/85 93 12/24/18 20:00 36.7 C 87 20 141/83 H 97 12/24/18 19:00 78 18 96 12/24/18 15:38 87 16 96 12/24/18 15:03 36.8 C 94 H 20 107/69 94 12/24/18 15:00 92 H 12/24/18 12:05 36.4 C L 86 16 145/87 H 93 12/24/18 11:14 83 18 95 Cardiovascular RRR, no murmur, no edema Respiratory normal respiratory effort, lungs clear to auscultation Pre-Sedation Airway Assessment Smoking Status: Former smoker Hx Sleep Apnea: Yes Thyromental Distance: > or= 3.5 Finger Breadths Oral Cavity: + Dentures Mallampati Class: III ASA: ASA3 NPO Status Date of Last Intake of Fluids: 12/24/18 Time of Last Intake of Fluids: 23:50 Date of Last Intake of Solid Food: 12/24/18 Time of Last Intake of Solid Foods: 23:50 Procedure Planning Contraindications for Sedation: none Current Medications Reviewed: Yes Notes The planned sedation has been discussed with the patient. Informed Consent was obtained. I have identified the patient, determined the appropriateness of sedation and have assessed the patient immediately prior to the procedure. All medicine(s) and interventions are by my order.
[2018-12-25] MEDS ORDERED: INSULIN GLARGINE SOLOSTAR 100 UNITS/ML 3 ML PEN SC ONE (08:30)
--- NOTE | 2018-12-25 08:47 | Post Operative Brief Note ---
Immediate Post Op Note v1 Date of Surgery December 25, 2018 Pre & Post Diagnosis Operation Date: 12/25/18 08:00 Pre-Op Diagnosis: Malfunctioning Perm Catheter Post-Op Diagnosis: Malfunctioning Perm Catheter Procedure Operation Date: 12/25/18 08:00 Actual Procedures p Exchange of Perm Catheter, Fluoroscopy for Positioning; Moderate Sedation From 0837 to 0851(Right) - Yves Falk MD Surgeon Yves Falk MD Pet Counselor MD Jade Estimated Blood Loss 0 Findings Consistent with Post-Op Diagnosis Anesthesia Type RN Sedation Complications none Disposition Accompanied Patient To Recovery: No Disposition: Recovery Room
--- NOTE | 2018-12-25 08:51 | Procedure Note ---
Angiogram Post Procedure Fluoroscopy Time (minutes): 0.3 Conscious Sedation Time (minutes): 14 Radiation (mGy): 3 Contrast: 0 Post Operative Report Pre & Post Diagnosis Operation Date: 12/25/18 08:00 Pre-Op Diagnosis: Malfunctioning Perm Catheter Post-Op Diagnosis: Malfunctioning Perm Catheter Procedure Operation Date: 12/25/18 08:00 Actual Procedures p Exchange of Perm Catheter, Fluoroscopy for Positioning; Moderate Sedation From 0837 to (Right) - Yves Falk MD Surgeon Dr. Dileep Marquez MD Line Director Elton Marquez MD Estimated Blood Loss 0 Findings Consistent with Post-Op Diagnosis Specimens none Anesthesia Type RN Sedation Complications none Disposition Accompanied Patient To Recovery: No Disposition: Recovery Room Indications malfunctioning permacath Description of Procedure Patient was taken to the angio suite and placed in the supine position. The right side of the neck and chest wall were prepped and draped including the existing permcath in a sterile manner. Local anesthesia was then administered to the appropriate areas of the neck and chest wall. A guidewire was then passed centrally under fluoroscopic imaging. The cuf of the permcath was dissected free and the permcath was pulled back over the wire keeping pressure at the base of the neck at the site of entry into the IJ. A 19 cm permcath was passed over the guidewire to a central position in the distal superior vena cava. The guidewire and inner catheter was removed. Fluoroscopy was used to confirm placement. The catheter was then sutured in place using 3-0 nylon sutures. Both ports aspirated and flushed easily and were then packed with heparin. A sterile dressing was applied to the catheter. The patient left the angio suite in good condition and tolerated the procedure well. Dr. Falk was present for the procedure I attest to the content of the Intraoperative Record and any orders documented therein. Any exceptions are noted below.
--- NOTE | 2018-12-25 09:10 | Post Anesthesia Assessment ---
Date of Service December 25, 2018 Post Sedation Assessment Vital Signs Temp Pulse Pulse Resp BP BP Pulse Ox 12/25/18 08:57 85 20 115/80 12/25/18 08:48 86 18 115/80 12/25/18 08:43 97 H 20 97/72 L 12/25/18 08:42 90 96/70 L 99 12/25/18 08:37 85 19 112/86 100 12/25/18 08:29 84 21 161/104 H 98 12/25/18 07:22 36.6 C 88 20 111/71 93 12/25/18 07:06 36.9 C 76 16 110/73 96 12/25/18 04:50 85 16 98 12/25/18 03:09 36.4 C L 83 18 109/76 96 12/25/18 01:50 88 20 96 12/25/18 00:11 96 H 18 98 12/24/18 23:27 36.4 C L 18 130/85 93 12/24/18 20:00 36.7 C 87 20 141/83 H 97 12/24/18 19:00 78 18 96 12/24/18 15:38 87 16 96 12/24/18 15:03 36.8 C 94 H 20 107/69 94 12/24/18 15:00 92 H 12/24/18 12:05 36.4 C L 86 16 145/87 H 93 12/24/18 11:14 83 18 95 Recovery Score Activity: Moves 4 extremities Respiration: Deep Breath/Cough Circulation: +/-20-49% PreAnes Value Consciousness: Fully Awake Oxygen Saturation: O2 needed for >90% Post Anesthesia Score: 8 Discharge Sedation Level of Care: Fast Track Phase II Post Sedation Plan On clinical assessment, the patient appears to have tolerated the sedation without complications. Patient is recovering as anticipated. Patient will continue to be monitored by nursing and may be discharged when sedation discharge criteria are met per below protocol. Upon Completions of procedure and additional 15 minutes continue every 5 minute vital signs and the P.A.R. score; then discharge to a Phase I or Fast Track to Phase II per the following guidelines: * Discharge Patient to appropriate Phase II area if PAR is 8 or greater or return to pre- procedure baseline. The post - procedure orders will be as directed. * If PAR score is less than 8 or not return to pre-procedure baseline then patient will follow Phase I monitoring till PAR is reached for Phase II. The Phase I may be done in procedure room or may call to secure a Phase I area. * If naloxone or flumazenil are used for reversal, hold in Phase I for continued monitoring from when last reversal dose was given for a minimum of 60 minutes or longer pending the nurse and/or physician discretion of patient condition before discharge to Phase II. Please call the Sedation Physician to re-evaluate and complete post-note for discharge to Phase II area. Do NOT discharge from procedure sedation or Phase 1 until post- sedation evaluation note is complete by procedure /sedation MD Sedation Discharge Instructions to be given to the patient at discharge to home.
[2018-12-25] MEDS: methylPREDNISolone 40 MG in SYRINGE 0 ML IV SCH ×2 (09:17→21:11)
[2018-12-25] MEDS: MIDODRINE HCL 10 MG TAB PO SCH ×3 (09:17→17:10)
[2018-12-25] MEDS: DOCUSATE SODIUM 100 MG CAP PO SCH ×2 (09:17→21:09)
[2018-12-25] MEDS: CHOLECALCIFEROL 1,000 UNITS TAB PO SCH (09:17)
[2018-12-25] MEDS: SEVELAMER HCL 800 MG TABLET PO SCH (09:18)
[2018-12-25] MEDS: ASCORBIC ACID 500 MG TAB PO SCH (09:19)
[2018-12-25] MEDS: NEPHROCAPS PO SCH (09:19)
[2018-12-25] MEDS: GABAPENTIN 300 MG CAP PO SCH ×2 (09:19→17:11)
[2018-12-25] MEDS: PANTOprazole 40 MG TAB PO SCH (09:19)
[2018-12-25] MEDS: MAGNESIUM OXIDE 400 MG TAB PO SCH (09:19)
[2018-12-25] MEDS: INSULIN ASPART 100 UNITS/ML 3 ML PEN SC SCH ×4 (09:21→21:10)
[2018-12-25] MEDS: LORazepam 0.5 MG TAB PO SCH (09:25)
[2018-12-25] MEDS: NYSTATIN POWDER 15GM BTL EXT SCH ×2 (10:09→21:10)
[2018-12-25] MEDS: HEPARIN SOD (PORCINE) 1000 UNIT/ML 10 ML VIAL IV SCH (13:05)
--- NOTE | 2018-12-25 14:52 | Pharmacy Report ---
Pharmacy Glycemic Short Note 2 - Date of Service December 25, 2018 - Glycemic Short BSG Results (Last 24 hours): 12/24/18 12/24/18 12/25/18 16:23 20:24 06:36 Glucose 262 H POC Glucose 78 103 H 12/25/18 12/25/18 09:14 11:08 Glucose POC Glucose 241 H 292 H OUTPATIENT ANTIDIABETIC REGIMEN: * Lantus 52 units in the morning (per patient interview) * HbA1c: not useful to interpret, in the setting of dialysis ASSESSMENT: 12/25/18: * Patient received a total of 126 units of insulin yesterday, 36 units of which were basal. * BSGs were above 200 this AM. Patient had a Perm cath exchange procedure this AM and then went to HD; she did not get a lunch tray today. * Solu-medrol changed from 40 mg IV q8h to q12h this AM. Expect post-prandial BSG to be lower d/t reduction in steroid dosing. In addition, HD is expected to remove some glucose. * Lantus 15 units were given this AM since this dose helped to control BSG on his last HD (2 days ago). * Will continue current CF and CR for Novolog and increase Lantus back upto 20 units BID. 12/24/18 * Patient had severe hyperglycemia this morning (BSG >400). Suspect that this is due to disruptions in her meal times and Novolog administration times yesterday d/t dialysis session. Patient also reports having a bowl of cereal late last night, which was not covered. * With correction, BSG has improved pre-lunch. * Patient is expected to be NPO after midnight again tonight for a procedure tomorrow. 12/23/18 * Patient currently receiving 100-140 units of insulin per day with poor control * Pt remains on Solumedrol 40mg IV Q8hrs which is contributing to steroid induced hyperglycemia. * AM fasting BSG still elevated at 253 mg/dl. Patient received 13 units of NovoLog at 0200 to cover hyperglycemia. Will add this 13 units into total basal dose (additional 5-6 units BID) * Pt at HD over lunch time. Most likely will receive a late lunch tray. Will make sure that CHO from lunch are covered at whatever time they are consumed * OK that regimen is heavily weighted towards prandial coverage as steroids have their most profound effect on post-prandial hyperglycemia. * Additionally, per previous admissions, Pt requires significantly less insulin per day when NOT on steroids. Insulin regimen will need tapered with each step down in steroid dosing. PLAN FOR INPATIENT GLYCEMIC CONTROL: * Basal insulin - * Lantus 15 units this AM, then 20 units BID. * Bolus insulin - no change * NovoLog per scale ACHS or Q6hrs while NPO * Goal Range: Low 110 mg/dL - High 140 mg/dL * Correction Factor: 9 mg/dL/unit * Nutritional / Prandial insulin per carb ratio of 1 unit per 2.5 grams CHO consumed PLAN FOR DISCHARGE: * See 12/20 note
--- NOTE | 2018-12-25 17:05 | Nephrology Progress Note ---
Date of Service December 25, 2018 Assessment & Plan (1) ESRD (end stage renal disease) on dialysis: on MWFSat dialysis via [facility] -She tolerated HD today for 4.15hrs and net UF of 3 L. HD cath initially with arterial alarms but improved after repositioning but only blood flows of 300. Dr. Ziegler was informed. He recommends trial of dialysis tomorrow and if there is catheter dysfunction, he will reposition it on Friday. -Next dialysis will be Friday for 3.5 hours, blood flow 350, dialysate flow 600 and UF of 2 L. -blood culture results from [facility] positive for Salmonella but blood cultures have been negative. Patient will continue ceftriaxone for pneumonia. (2) Acute and chronic respiratory failure with hypoxia: Multifactorial including pneumonia and volume overload. She is getting ceftriaxone per primary service; will continue aggressive fluid management with dialysis -BP is better Subjective ESRD complicated by PNA and volume overload. Seen in f/u. Patient was seen in the morning during rounds before dialysis. She received a new tunneled dialysis catheter by Dr. Falk. She tolerated dialysis but had catheter dysfunction again. Initially with high arterial alarms. Eventually catheter run after repositioning but with only the blood flows of 300. Constitutional: + chills, + fatigue and + weakness Respiratory: as per Subjective / HPI, + cough, + chest congestion, + dyspnea, + dyspnea on exertion, + sputum production and + wheezing Cardiovascular: + lightheadedness and + edema (stable chronic); no chest pain and no palpitations Musculoskeletal: + back pain Integumentary: + non-healing lesions (sacral) Neurologic: + gait abnormality, + unsteadiness, + falls and + generalized weakness; no headache(s) and no confusion Endocrine: + fatigue Physical Exam Vital Signs (Past 24 Hours): Last Vital Signs Temp 36.6 C 12/25/18 11:27 Pulse 91 H 12/25/18 13:20 Resp 18 12/25/18 10:57 BP 125/70 12/25/18 13:20 Pulse Ox 97 12/25/18 10:57 Physical Exam: General exam: Appears comfortable, no acute distress HEENT: Pupils are equal and reactive to light Neck: No JVD, neck is supple trachea is midline Respiratory system: Clear breath sounds bilaterally. Gastrointestinal: Abdomen is soft, non distended, non tender, bowel sounds are present CVS: Regular rate and rhythm. No murmurs, rubs or gallops Musculoskeletal: No joint or muscle tenderness Extremities: Non tender, no edema, peripheral pulses are present Neuro: Oriented, no tremors, no focal neurological deficits Skin: No rashes Access: Right tunneled IJ catheter
[2018-12-25] MEDS: cefTRIAXone SODIUM 2,000 MG in DEXTROSE 5% 50 ML IV SCH (17:11)
[2018-12-25] MEDS ORDERED: cefTRIAXone SODIUM 2,000 MG in DEXTROSE 5% 50 ML IV SCH (17:30)
--- NOTE | 2018-12-25 20:10 | Hospitalist Progress Note ---
Date of Service December 25, 2018 Assessment & Plan (1) Pneumonia: Present on admission with worsening SOB Failed outpatient therapy CXR on admission showed right lower lung opacity Starting on Zosyn then transition to Rocephin on 12/19 Continue solumedrol 40mg BID Continue nebulizer treatment and oxygen supplement If no improvement, will consult pulmonology Blood cx on 12/18 from [facility] Blood cx feroz from the ER on 12/18 showed no growth Will discuss with ID about the blood cx finding Continue Rocephin IV for now (2) Acute and chronic respiratory failure with hypoxia: Present on admission with worsening SOB Failed outpatient therapy CXR on admission showed right lower lung opacity Starting on Zosyn then transition to Rocephin on 12/19 Continue solumedrol Continue nebulizer treatment and oxygen supplement Will consult pulmonology (3) Hypotension: BP stable Continue outpatient dose of midodrine (4) Elevated troponin: Mostly from ESRD and demand ischemia due to pneumonia (NSTEMI, type II) EKG showed no ischemic changes ECHO showed right ventricle severely dilated with EF >70 Continue statin, metoprolol Denies any symptoms (5) Atrial fibrillation: Rate control with metoprolol Will hold coumadin for tonight resume coumadin Monitor PT/INR (6) DM type 2 (diabetes mellitus, type 2): Pharmacy on board for glycemic management Monitor BS (7) RHF (right heart failure): ECHO showed right ventricle severely dilated with EF >70 Continue monitor (8) ESRD (end stage renal disease) on dialysis: HD done today had PermCath exchange this morning by vascular Nephro on board Monitor BMP (9) Hypothyroidism: Continue Levothyroxine (10) HLD (hyperlipidemia): Continue atorvastatin (11) Neuropathy: Continue gabapentin (12) Decubitus ulcer, buttock: Continue wound care On Rocephin IV DVT px SCDs Subjective Pt was seen and examined Sitting in bed with no distress Pt said that she feels her breathing improves Denies any chest pain, palpitation and SOB Physical Exam Vital Signs (Past 24 Hours): Last Vital Signs Temp 36.7 C 12/25/18 19:50 Pulse 107 H 12/25/18 19:50 Resp 22 12/25/18 19:50 BP 88/57 L 12/25/18 19:50 Pulse Ox 93 12/25/18 19:50 Physical Exam: General- No acute distress Head- atraumatic Eyes- PERRL, EOMI, ENT- oropharynx clear Neck- supple, no JVD Lungs- +wheezing Heart- regular rhythm; no murmur Abdomen- normal bowel sounds, soft, nontender Extremities- no calf tenderness, +edema Neuro- alert, oriented x 3; PERRL, EOMI; no facial palsy Skin- warm & dry (1) DM type 2 (diabetes mellitus, type 2) Diabetes mellitus complication detail: with polyneuropathy Diabetes mellitus complication status: with neurologic complications Diabetes mellitus termination clerk insulin use: with termination clerk use Qualified Code(s): E11.42 - Type 2 diabetes mellitus with diabetic polyneuropathy; Z79.4 - extermination inspector (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 (2) Atrial fibrillation Atrial fibrillation type: paroxysmal Qualified Code(s): I48.0 - Paroxysmal atrial fibrillation (3) HLD (hyperlipidemia) Hyperlipidemia type: unspecified Qualified Code(s): E78.5 - Hyperlipidemia, unspecified (4) Hypothyroidism Hypothyroidism type: unspecified Qualified Code(s): E03.9 - Hypothyroidism, unspecified (5) RHF (right heart failure) Heart failure chronicity: unspecified Qualified Code(s): I50.810 - Right heart failure, unspecified (6) Hypotension Hypotension type: hemodialysis-associated hypotension Qualified Code(s): I95.3 - Hypotension of hemodialysis (7) Pneumonia Laterality: right Lung location: lower lobe of lung Pneumonia type: due to unspecified organism Qualified Code(s): J18.1 - Lobar pneumonia, unspecified organism
[2018-12-25] MEDS ORDERED: ACETYLCYSTEINE 10% INHAL SOLN **DISPENSED FROM RESP. INH SCH (20:30)
[2018-12-25] MEDS: POLYETHYLENE (MIRALAX) 17 GM PACK PO PRN (21:05)
[2018-12-25] MEDS: HYDROCODONE/ACETAMOPHEN 5/325MG TAB PO PRN (21:07)
[2018-12-25] MEDS: ATORVASTATIN 40 MG TAB PO SCH (21:09)
[2018-12-25] MEDS: METOPROLOL SUCC 25MG EXT REL TAB PO SCH (21:11)
[2018-12-25] MEDS: SERTRALINE HCL 50 MG TABLET PO SCH (21:12)
[2018-12-25] MEDS: INSULIN GLARGINE SOLOSTAR 100 UNITS/ML 3 ML PEN SC SCH (21:13)
[2018-12-26] MEDS: LEVOTHYROXINE SODIUM 125 MCG TABLET PO SCH (06:45)
[2018-12-26] MEDS: ALBUT/IPRATROP 3MG/0.5MG NEB 3 ML VIAL NEB SCH ×4 (06:58→19:33)
[2018-12-26 07:00] LABS: INR 1.4 (0.9-1.1)
[2018-12-26] MEDS ORDERED: SODIUM CHLORIDE 0.9% 1000ML 1,000 ML IV PRN (07:00)
[2018-12-26] MEDS ORDERED: HEPARIN SOD (PORCINE) 1000 UNIT/ML 10 ML VIAL IV SCH (07:00)
[2018-12-26 08:22] LABS: Hematocrit (blood only) 36.7 % (37-47); Hemoglobin 11.6 g/dL (12.0-16.0); Mean Corpuscular Hgb Conc 31.6 g/dL (32-36); Mean Corpuscular Volume 92.4 fL (80-100); Mean Platelet Volume 10.9 fL (7.4-10.4); Platelet Count 143 K/uL (130-400); RDW Standard Deviation 60.9 fL (36.4-46.3); Red Blood Count 3.97 M/uL (4.2-5.4); White Blood Count 22.48 K/uL (4.8-10.8)
[2018-12-26] MEDS: NEPHROCAPS PO SCH (08:26)
[2018-12-26] MEDS: SEVELAMER HCL 800 MG TABLET PO SCH (08:27)
[2018-12-26] MEDS: PANTOprazole 40 MG TAB PO SCH (08:27)
[2018-12-26] MEDS: GABAPENTIN 300 MG CAP PO SCH ×2 (08:28→17:42)
[2018-12-26] MEDS: CHOLECALCIFEROL 1,000 UNITS TAB PO SCH (08:28)
[2018-12-26] MEDS: DOCUSATE SODIUM 100 MG CAP PO SCH ×2 (08:28→20:06)
[2018-12-26] MEDS: INSULIN ASPART 100 UNITS/ML 3 ML PEN SC SCH ×4 (08:29→20:12)
[2018-12-26] MEDS: MAGNESIUM OXIDE 400 MG TAB PO SCH (08:29)
[2018-12-26] MEDS: ASCORBIC ACID 500 MG TAB PO SCH (08:31)
[2018-12-26] MEDS: MIDODRINE HCL 10 MG TAB PO SCH ×3 (08:31→17:43)
[2018-12-26] MEDS: NYSTATIN POWDER 15GM BTL EXT SCH ×2 (08:31→20:07)
[2018-12-26] MEDS: methylPREDNISolone 40 MG in SYRINGE 0 ML IV SCH ×2 (08:32→20:06)
[2018-12-26 08:33] LABS: BUN Creatinine Ratio 13.5 (10-20); Calcium 8.4 mg/dl (8.5-10.1); Creatinine Clr Calc Pharmacy 12.2 ml/min; Est GFR (African American) 9.3; Potassium 4.7 mmol/L (3.5-5.1)
[2018-12-26 08:40] LABS: Anisocytosis Present; Basophils # (auto) 0.02 K/uL (0-0.2); Basophils % (auto) 0.1 %; Eosinophils # (auto) 0.01 K/uL (0-0.5); Immature Granulocytes # (auto) 0.54 K/uL (0.00-0.02); Immature Granulocytes % (auto) 2.4 %; Lymphocytes # (auto) 0.69 K/uL (1.2-3.4); Lymphocytes % (auto) 3.1 %; Monocytes # (auto) 1.09 K/uL (0.11-0.59); Monocytes % (auto) 4.8 %; Neutrophils # (auto) 20.13 K/uL (1.4-6.5); Neutrophils % (auto) 89.6 %; Ovalocytes 1+
[2018-12-26 08:48] LABS: Beta-Hydroxybutyrate 2.67 mg/dl (0.2-2.81)
[2018-12-26] MEDS: INSULIN GLARGINE SOLOSTAR 100 UNITS/ML 3 ML PEN SC SCH (09:14)
[2018-12-26] MEDS: HEPARIN SOD (PORCINE) 1000 UNIT/ML 10 ML VIAL IV SCH ×3 (10:00→13:38)
--- NOTE | 2018-12-26 14:13 | Dialysis Progress Note ---
Date of Service December 26, 2018 Assessment & Plan (1) ESRD (end stage renal disease) on dialysis: on MWFSat dialysis via [facility] -tolerating dialysis > catheter w/ improved function after manipulation/adjustment by vascular >> no more arterial alarms, no need to run reversed -Next dialysis will be Friday for 3.5 hours, blood flow 350, dialysate flow 600 and UF of 2 L. -blood culture results one of 2 from [facility] positive for Salmonella but blood cultures in [facility] at admission have been negative. Patient will continue ceftriaxone for pneumonia. (2) Acute and chronic respiratory failure with hypoxia: Multifactorial including pneumonia and volume overload. She is getting ceftriaxone per primary service; will continue aggressive fluid management with dialysis; f/u pulm recs Subjective seen on dialysis as 0900; catheter running poorly but apparently its funciton improved w/ manipualtion by vascular. ongoing chronic sob/ no distress. awaiting dispo from ID as well about one blood cx w/ salmonella. edema impoving; energy at baseline Physical Exam Vital Signs (Past 24 Hours): Last Vital Signs Temp 36.7 C 12/26/18 12:22 Pulse 78 12/26/18 12:22 Resp 22 12/26/18 12:22 BP 122/21 L 12/26/18 12:22 Pulse Ox 96 12/26/18 12:22 Constitutional: well developed, well nourished, + obese and cooperative on 5 L NC Eyes: EOM intact bilaterally ENMT: Ears: no external ear abnormality Nose: no external nose abnormality Mouth: + dry oral mucous membranes Neck: no nuchal rigidity Respiratory: + labored breathing Auscultation: + diminished lung sounds and + wheezes Cardiovascular: Rate/Rhythm: regular rate (distant HS) and regular rhythm Extremities: + edema (indurated 1+) Gastrointestinal (Abdomen): Inspection/Auscultation: normal bowel sounds Percussion/Palpation: abdomen soft; abdomen nontender Musculoskeletal: Extremities: strength 5/5 throughout Skin: no rashes, warm and dry Neurologic: mad, fluent speech Psychiatric: A+Ox3, euthymic affect Eye Contact: good eye contact Results & Data Laboratory Results Abnormal lab results 12/25/18 12/26/18 12/26/18 Range/Units 16:45 06:15 06:15 WBC 22.48 H (4.8-10.8) K/uL RBC 3.97 L (4.2-5.4) M/uL Hgb 11.6 L (12.0-16.0) g/dL Hct 36.7 L (37-47) % MCHC 31.6 L (32-36) g/dL RDW Std Deviation 60.9 H (36.4-46.3) fL RDW Coeff of Yogi 18.0 H (11.5-14.5) % MPV 10.9 H (7.4-10.4) fL Immature Gran # (Auto) 0.54 H (0.00-0.02) K/uL Neut # (Auto) 20.13 H (1.4-6.5) K/uL Lymph # (Auto) 0.69 L (1.2-3.4) K/uL Newberry # (Auto) 1.09 H (0.11-0.59) K/uL PT (9.0-12.0) Seconds INR (0.9-1.1) Sodium 131 L (136-145) mmol/L Chloride 97 L (98-107) mmol/L Carbon Dioxide 19 L (21-32) mmol/L Anion Gap 14.0 H (3-11) BUN 70 H (7-18) mg/dl Creatinine 5.23 H* D (0.6-1.2) mg/dl Glucose 330 H (70-99) mg/dl POC Glucose 245 H (70-99) Calcium 8.4 L (8.5-10.1) mg/dl 12/26/18 12/26/18 12/26/18 Range/Units 06:17 07:32 13:33 WBC (4.8-10.8) K/uL RBC (4.2-5.4) M/uL Hgb (12.0-16.0) g/dL Hct (37-47) % MCHC (32-36) g/dL RDW Std Deviation (36.4-46.3) fL RDW Coeff of Yogi (11.5-14.5) % MPV (7.4-10.4) fL Immature Gran # (Auto) (0.00-0.02) K/uL Neut # (Auto) (1.4-6.5) K/uL Lymph # (Auto) (1.2-3.4) K/uL Newberry # (Auto) (0.11-0.59) K/uL PT 14.0 H (9.0-12.0) Seconds INR 1.4 H (0.9-1.1) Sodium (136-145) mmol/L Chloride (98-107) mmol/L Carbon Dioxide (21-32) mmol/L Anion Gap (3-11) BUN (7-18) mg/dl Creatinine (0.6-1.2) mg/dl Glucose (70-99) mg/dl POC Glucose 331 H 61 L* (70-99) Calcium (8.5-10.1) mg/dl
--- NOTE | 2018-12-26 14:39 | Pharmacy Report ---
Pharmacy Glycemic Short Note 2 - Date of Service December 26, 2018 - Glycemic Short BSG Results (Last 24 hours): 12/25/18 12/25/18 12/26/18 16:45 20:31 06:15 Glucose 330 H POC Glucose 245 H 96 12/26/18 12/26/18 12/26/18 07:32 11:33 13:33 Glucose POC Glucose 331 H 86 61 L* 12/26/18 14:02 Glucose POC Glucose 87 OUTPATIENT ANTIDIABETIC REGIMEN: * Lantus 52 units in the morning (per patient interview) * HbA1c: not useful to interpret, in the setting of dialysis ASSESSMENT: 12/26/18: * FBS this AM 331mg/dL. She did have a low at lunch that is concerning, 61mg/dL. Likely due to the 40units of Novolog given at breakfast. I did loosen her up *slightly* 2.5--->06/17. A small change in CF for a BSG in the 300s will likely have a significant effect on subsequent insulin doses. 12/25/18: * Patient received a total of 126 units of insulin yesterday, 36 units of which were basal. * BSGs were above 200 this AM. Patient had a Perm cath exchange procedure this AM and then went to HD; she did not get a lunch tray today. * Solu-medrol changed from 40 mg IV q8h to q12h this AM. Expect post-prandial BSG to be lower d/t reduction in steroid dosing. In addition, HD is expected to remove some glucose. * Lantus 15 units were given this AM since this dose helped to control BSG on his last HD (2 days ago). * Will continue current CF and CR for Novolog and increase Lantus back upto 20 units BID. 12/24/18 * Patient had severe hyperglycemia this morning (BSG >400). Suspect that this is due to disruptions in her meal times and Novolog administration times yesterday d/t dialysis session. Patient also reports having a bowl of cereal late last night, which was not covered. * With correction, BSG has improved pre-lunch. * Patient is expected to be NPO after midnight again tonight for a procedure tomorrow. 12/23/18 * Patient currently receiving 100-140 units of insulin per day with poor control * Pt remains on Solumedrol 40mg IV Q8hrs which is contributing to steroid induced hyperglycemia. * AM fasting BSG still elevated at 253 mg/dl. Patient received 13 units of NovoLog at 0200 to cover hyperglycemia. Will add this 13 units into total basal dose (additional 5-6 units BID) * Pt at HD over lunch time. Most likely will receive a late lunch tray. Will make sure that CHO from lunch are covered at whatever time they are consumed * OK that regimen is heavily weighted towards prandial coverage as steroids have their most profound effect on post-prandial hyperglycemia. * Additionally, per previous admissions, Pt requires significantly less insulin per day when NOT on steroids. Insulin regimen will need tapered with each step down in steroid dosing. PLAN FOR INPATIENT GLYCEMIC CONTROL: * Basal insulin * Lantus 20 units BID * Bolus insulin - loosen * NovoLog per scale ACHS or Q6hrs while NPO * Goal Range: Low 110 mg/dL - High 140 mg/dL * Correction Factor: 10 mg/dL/unit * Nutritional / Prandial insulin per carb ratio of 1 unit per 3 grams CHO consumed PLAN FOR DISCHARGE: * See 12/20 note
--- NOTE | 2018-12-26 18:57 | Hospitalist Progress Note ---
Date of Service December 26, 2018 Assessment & Plan (1) Pneumonia: Present on admission with worsening SOB Failed outpatient therapy CXR on admission showed right lower lung opacity Starting on Zosyn then transition to Rocephin on 12/19 Completed the course of Rocephin 12/26 Continue solumedrol 40mg BID Continue nebulizer treatment and oxygen supplement Blood cx on 12/18 from [facility] grew salmonella Blood cx feroz from the ER on 12/18 showed no growth Case discussed with ID (No official consult ) Possible contamination ID recommended levaquin x1 dose for salmonella Will give Levaquin x1 (2) Acute and chronic respiratory failure with hypoxia: Present on admission with worsening SOB Failed outpatient therapy CXR on admission showed right lower lung opacity Starting on Zosyn then transition to Rocephin on 12/19 Continue solumedrol Continue nebulizer treatment and oxygen supplement Pulmonology on board CXR 2V pending (3) Hypotension: BP stable Continue outpatient dose of midodrine (4) Elevated troponin: Mostly from ESRD and demand ischemia due to pneumonia (NSTEMI, type II) EKG showed no ischemic changes ECHO showed right ventricle severely dilated with EF >70 Continue statin, metoprolol Denies any symptoms (5) Atrial fibrillation: Rate control with metoprolol Will hold coumadin for tonight Resume coumadin today Monitor PT/INR (6) DM type 2 (diabetes mellitus, type 2): Pharmacy on board for glycemic management Monitor BS (7) RHF (right heart failure): ECHO showed right ventricle severely dilated with EF >70 Continue monitor (8) ESRD (end stage renal disease) on dialysis: HD done today had PermCath exchange this yesterday by vascular Nephro on board Monitor BMP (9) Hypothyroidism: Continue Levothyroxine (10) HLD (hyperlipidemia): Continue atorvastatin (11) Neuropathy: Continue gabapentin (12) Decubitus ulcer, buttock: Continue wound care DVT px SCDs Subjective Pt was seen and examined Lying in bed with no distress getting HD Pt said that her breathing seems to improves Denies any chest pain, palpitation and fever Physical Exam Vital Signs (Past 24 Hours): Last Vital Signs Temp 36.8 C 12/26/18 16:00 Pulse 88 12/26/18 16:00 Resp 18 12/26/18 16:00 BP 110/66 12/26/18 16:00 Pulse Ox 94 12/26/18 16:00 Physical Exam: General- No acute distress Head- atraumatic Eyes- PERRL, EOMI, ENT- oropharynx clear Neck- supple, no JVD Lungs- +wheezing Heart- regular rhythm; no murmur Abdomen- normal bowel sounds, soft, nontender Extremities- no calf tenderness, +edema Neuro- alert, oriented x 3; PERRL, EOMI; no facial palsy Skin- warm & dry (1) DM type 2 (diabetes mellitus, type 2) Diabetes mellitus complication detail: with polyneuropathy Diabetes mellitus complication status: with neurologic complications Diabetes mellitus senior care insulin use: with senior care use Qualified Code(s): E11.42 - Type 2 diabetes mellitus with diabetic polyneuropathy; Z79.4 - superintendent container terminal (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 (2) Atrial fibrillation Atrial fibrillation type: paroxysmal Qualified Code(s): I48.0 - Paroxysmal atrial fibrillation (3) HLD (hyperlipidemia) Hyperlipidemia type: unspecified Qualified Code(s): E78.5 - Hyperlipidemia, unspecified (4) Hypothyroidism Hypothyroidism type: unspecified Qualified Code(s): E03.9 - Hypothyroidism, unspecified (5) RHF (right heart failure) Heart failure chronicity: unspecified Qualified Code(s): I50.810 - Right heart failure, unspecified (6) Hypotension Hypotension type: hemodialysis-associated hypotension Qualified Code(s): I95.3 - Hypotension of hemodialysis (7) Pneumonia Laterality: right Lung location: lower lobe of lung Pneumonia type: due to unspecified organism Qualified Code(s): J18.1 - Lobar pneumonia, unspecified organism
[2018-12-26] MEDS ORDERED: WARFARIN SOD 5 MG TAB PO ONE (19:10)
[2018-12-26] MEDS ORDERED: LEVOFLOXACIN/D5W 750 MG/150 ML BAG IV ONE (20:00)
[2018-12-26] MEDS: ATORVASTATIN 40 MG TAB PO SCH (20:06)
[2018-12-26] MEDS: SERTRALINE HCL 50 MG TABLET PO SCH (20:08)
[2018-12-26] MEDS: METOPROLOL SUCC 25MG EXT REL TAB PO SCH (20:09)
[2018-12-26] MEDS ORDERED: INSULIN HUMAN NPH SC ONE (21:00)
[2018-12-26] MEDS ORDERED: INSULIN GLARGINE SOLOSTAR 100 UNITS/ML 3 ML PEN SC SCH (21:00)
--- NOTE | 2018-12-26 22:49 | Consultation Report ---
DATE OF CONSULTATION: 12/26/2018 REASON FOR CONSULTATION: Pulmonary evaluation of progressive dyspnea. HISTORY OF PRESENT ILLNESS: A 63-year-old white female well known to myself, was seen in the ER on 12/17/2018. She is on chronic hemodialysis and has had Vang catheter replaced recently. She was sent to the Emergency Room from her dialysis treatment the day of admission with wheezing, cough and low-grade temperature, 1.7 L of fluid was taken off at that time, but she was still short of breath and was on 3-4 L of oxygen supplementation. She has had a history of severe COPD. Chest x-ray suggested a right lower lung opacity with atelectasis and cardiomegaly without overt signs of pulmonary edema. She was admitted to the hospitalist service that same day on to Dr. Tricia King's service. She has a history of chronic right heart failure, pulmonary hypertension, obesity, hypoventilation syndrome, chronic hypoxic respiratory failure on chronic oxygen at 4 L even prior to this admission. She is followed by Brittany with the home team yesterday supervised by . She had been tried on cefdinir as an outpatient and then switched to levofloxacin at the time of her dialysis exchange but still has to be admitted. Dr. Hansa Ya follows her from ovary a renal standpoint and currently Dr. Miguel Ángel Gentile has been seeing patient, but because of worsening dyspnea I was asked to see patient in consultation. Blood cultures on 12/18/2018 when taken at the [facility] facility grew out Salmonella. Blood cultures from our ER were negative. She has been on SoluMedrol 40 mg t.i.d. started on Zosyn initially and transitioned to Rocephin and receives aerosolized bronchodilators as well. Echo shows right ventricle is severely dilated. The patient has had a previous non-STEMI. Currently, she is receiving IV methylprednisolone 40 mg b.i.d., IV ceftriaxone, acetylcysteine with her nebulizer treatments b.i.d. She was last seen in the clinic by Vitaliy Kim on 11/17/2018. She has been on Anoro Ellipta in the past along with a nebulizer and takes Mucinex b.i.d. A CAT scan of the chest in 05/2018 shows cardiomegaly, emphysema, some pleural based nodules not changed from 2015. PHYSICAL EXAMINATION: GENERAL: Well-developed, friendly, white female sitting up having breakfast, in no respiratory distress. VITAL SIGNS: Blood pressure 122/81, pulse 90 and regular, respiratory rate 28, temperature 36.2, O2 sat 95% on 4 L. SKIN: Without lesion. HEENT: Atraumatic, normocephalic. PERRLA. LUNGS: Coarse wheezes, decreased breath sounds right base. CARDIAC: Regular rate and rhythm. I do not appreciate a gallop. ABDOMEN: Soft, scaphoid. No evidence of hepatosplenomegaly. EXTREMITIES: 2+ pitting edema. No clubbing. Peripheral cyanosis. NEUROLOGIC: Intact. No lateralizing signs. LABORATORY DATA: CT scan on 08/12/2018 was reviewed, shows cardiomegaly and emphysema, no airspace consolidation. Pulmonary and pleural based nodules in the right lung, stable since 2014. A chest x-ray this admission shows right lower lobe opacity, which may suggest atelectasis. White count is 22,000. H and H 11.6 and 36.7. No significant peripheral eosinophilia. Our blood cultures have been negative but a blood culture was positive for Salmonella at the [facility] was interesting. Echo on 12/19/2018 was reviewed. The right ventricle is severely dilated and volume overloaded. OVERALL ASSESSMENT: A 63-year-old with complex medical history, cardiomyopathy, end-stage renal failure on dialysis, chronic obstructive pulmonary disease, admitted with possible sepsis secondary to (?) Salmonella with persistent bronchospasm and right ventricular failure with cor pulmonale and severe pulmonary hypertension. The patient has numerous high risk factors, does not appear to be responding to therapy. I would continue current treatment and repeat her chest x-ray or scan to better visualized what is transpiring at that right base. It is difficult to know how aggressive it is to be with this patient given her multiple comorbidities. We will discuss with primary attending.
[2018-12-27] MEDS: LEVOTHYROXINE SODIUM 125 MCG TABLET PO SCH (05:27)
[2018-12-27] MEDS: ALBUT/IPRATROP 3MG/0.5MG NEB 3 ML VIAL NEB SCH ×4 (07:00→19:26)
[2018-12-27] MEDS: GABAPENTIN 300 MG CAP PO SCH (08:26)
[2018-12-27] MEDS: PANTOprazole 40 MG TAB PO SCH (08:26)
[2018-12-27] MEDS: SEVELAMER HCL 800 MG TABLET PO SCH (08:26)
[2018-12-27] MEDS: NEPHROCAPS PO SCH (08:26)
[2018-12-27] MEDS: CHOLECALCIFEROL 1,000 UNITS TAB PO SCH (08:27)
[2018-12-27] MEDS: MAGNESIUM OXIDE 400 MG TAB PO SCH (08:27)
[2018-12-27] MEDS: MIDODRINE HCL 2.5 MG TAB PO SCH ×3 (08:27→17:05)
[2018-12-27] MEDS: methylPREDNISolone 40 MG in SYRINGE 0 ML IV SCH (08:27)
[2018-12-27] MEDS: ASCORBIC ACID 500 MG TAB PO SCH (08:27)
[2018-12-27] MEDS: INSULIN ASPART 100 UNITS/ML 3 ML PEN SC SCH ×4 (08:28→21:14)
[2018-12-27] MEDS: INSULIN GLARGINE SOLOSTAR 100 UNITS/ML 3 ML PEN SC SCH (08:30)
[2018-12-27] MEDS: DOCUSATE SODIUM 100 MG CAP PO SCH ×2 (08:30→21:13)
[2018-12-27] MEDS: NYSTATIN POWDER 15GM BTL EXT SCH ×2 (08:37→21:16)
[2018-12-27] MEDS ORDERED: INSULIN GLARGINE SOLOSTAR 100 UNITS/ML 3 ML PEN SC SCH (09:00)
[2018-12-27 09:33] LABS: Hematocrit (blood only) 37.1 % (37-47); Hemoglobin 11.8 g/dL (12.0-16.0); Mean Corpuscular Hgb Conc 31.8 g/dL (32-36); Mean Corpuscular Volume 91.2 fL (80-100); Mean Platelet Volume 10.7 fL (7.4-10.4); Nucleated RBC # (auto) 0.02 K/uL (0-0); Nucleated RBC % (auto) 0.1 %; Platelet Count 143 K/uL (130-400); RDW Coefficient of Variation 17.9 % (11.5-14.5); RDW Standard Deviation 60.3 fL (36.4-46.3); Red Blood Count 4.07 M/uL (4.2-5.4); White Blood Count 20.79 K/uL (4.8-10.8)
[2018-12-27 09:40] LABS: INR 1.3 (0.9-1.1); Prothrombin Time 12.9 Seconds (9.0-12.0)
--- NOTE | 2018-12-27 09:58 | Pharmacy Report ---
Pharmacy Glycemic Short Note 2 - Date of Service December 27, 2018 - Glycemic Short BSG Results (Last 24 hours): 12/26/18 12/26/18 12/26/18 11:33 13:33 14:02 POC Glucose 86 61 L* 87 12/26/18 12/26/18 12/27/18 16:27 20:09 07:26 POC Glucose 217 H 281 H 341 H OUTPATIENT ANTIDIABETIC REGIMEN: * Lantus 52 units in the morning (per patient interview) * HbA1c: not useful to interpret, in the setting of dialysis ASSESSMENT: * 63yo brittle diabetic with frequent large BSG swings. A1c not reliable d/t ESRD/HD. * Pt takes Lantus once daily at home but we are dosing BID for admission. Will work back to once daily dosing. * Outpatient dosing of Lantus is 52 units daily but pt only ordered 40 units/day - pt typically requires much less than outpatient dosing while admitted and NOT on steroids. Will work back to outpatient dosing since pt continues on Solumedrol 40mg IV Q12hrs. * Patient is very carb sensitive- needs large doses of NovoLog to cover carbs but tends to go low when large doses of correctional insulin are given with carb coverage (bc BSG is high pre-meal) * Will loosen CF but keep CR tight to prevent overdosing and rebound hypo when BSG elevated pre-meal PLAN FOR INPATIENT GLYCEMIC CONTROL: * Basal insulin * Lantus 50 units SQ AM * Bolus insulin - Loosen CF, tighten CR * NovoLog per scale ACHS or Q6hrs while NPO * Goal Range: Low 110 mg/dL - High 140 mg/dL * Correction Factor: 15 mg/dL/unit * Nutritional / Prandial insulin per carb ratio of 1 unit per 2.5 grams CHO consumed PLAN FOR DISCHARGE: * See 12/20 note
[2018-12-27 10:05] LABS: BUN Creatinine Ratio 13.7 (10-20); Calcium 8.6 mg/dl (8.5-10.1); Creatinine Clr Calc Pharmacy 13.4 ml/min; Est GFR (African American) 10.3; Est GFR (Non-African American) 8.9; Potassium 4.5 mmol/L (3.5-5.1)
--- NOTE | 2018-12-27 10:11 | Progress Note ---
DATE: 12/27/2018 PULMONARY MEDICINE PROGRESS NOTE Chart reviewed, the patient examined. SUBJECTIVE: The patient is very cheery today, feels that she is somewhat improved, has been sitting up, out of bed and walking to the bathroom with assistance. Breathing seems easier today. OBJECTIVE: VITAL SIGNS: Blood pressure 124/85, pulse 87 and regular, respiratory rate 22, temperature 36.8, O2 sat 97% on 4 liters. SKIN: Without lesion. HEENT: Atraumatic, normocephalic, PERRLA, EOMI. Conjunctivae pale. Sclerae nonicteric. Fundi poorly visualized. NECK: Neck veins not distended at 45 degrees. No obvious adenopathy in the supra or infraclavicular areas. LUNGS: Scattered rhonchi, right base, generally clearer than yesterday's exam. CARDIAC: Regular rate and rhythm. I do not appreciate a gallop. ABDOMEN: Soft, protuberant. EXTREMITIES: Chronic stasis changes. NEUROLOGICAL: Intact. No lateralizing signs. The patient is currently on IV methylprednisolone 40 mg b.i.d. and levofloxacin has been discontinued. The patient remains on anticoagulant therapy. LABORATORY DATA: White count is 22,000, no doubt, aggravated by chronic steroid use. Glucose levels are erratic aggravated by prednisone. Chest x-ray pending. OVERALL ASSESSMENT: A 63-year-old white female with severe COPD, chronic renal insufficiency, pneumonitis and presentation of acute and chronic respiratory failure with hypoxemia, seems to have responded to therapy. Would repeat chest x-ray today to reevaluate. Unfortunately, the patient's severe right ventricular dilatation and right ventricular overload as well as cor pulmonale and signs of pulmonary hypertension, but very problematic for this patient's clinical course going forward.
--- NOTE | 2018-12-27 10:30 | XRay Report ---
XR chest 2V routine CLINICAL HISTORY: copd dyspnea COMPARISON STUDY: 12/18/2018 FINDINGS: Moderate stable cardia megaly. PermCath in the superior vena cava. Left lung is clear. Foca l atelectatic change right base. IMPRESSION: Focal atelectatic change right base unaltered from the prior study. Mild stable cardia m egaly. The above report was generated using voice recognition software. It may contain grammatical, syntax or spelling errors. Electronically signed by: Bird Patino M.D. 12/27/2018 10:27 AM
[2018-12-27] MEDS ORDERED: INSULIN HUMAN REGULAR IV BOLUS 5 UNITS in SYRINGE 0 ML IV ONE (14:30)
[2018-12-27] MEDS ORDERED: INSULIN REGULAR 250 UNITS in SODIUM CHLORIDE 0.9% 247.5 ML IV SCH (14:30)
[2018-12-27] MEDS: WARFARIN SOD 5 MG TAB PO SCH (17:04)
--- NOTE | 2018-12-27 19:54 | Hospitalist Progress Note ---
Date of Service December 27, 2018 Assessment & Plan (1) Pneumonia: Present on admission with worsening SOB Failed outpatient therapy CXR on admission showed right lower lung opacity Starting on Zosyn then transition to Rocephin on 12/19 Completed the course of Rocephin 12/26 Continue solumedrol 40mg BID Continue nebulizer treatment and oxygen supplement Blood cx on 12/18 from [facility] grew salmonella Blood cx feroz from the ER on 12/18 showed no growth Case discussed with ID (No official consult ) Possible contamination ID recommended levaquin dose given for salmonella (2) Acute and chronic respiratory failure with hypoxia: Present on admission with worsening SOB Failed outpatient therapy CXR on admission showed right lower lung opacity Repeat CXR today showed focal atelectatic change right base unaltered from the prior study. Starting on Zosyn then transition to Rocephin on 12/19 Solumedrol changed to prednisone daily due to hyperglycemia Continue nebulizer treatment and oxygen supplement Pulmonology on board Continue oxygen supplement (3) Hypotension: BP stable Continue outpatient dose of midodrine (4) Elevated troponin: Mostly from ESRD and demand ischemia due to pneumonia (NSTEMI, type II) EKG showed no ischemic changes ECHO showed right ventricle severely dilated with EF >70 Continue statin, metoprolol Denies any symptoms (5) Atrial fibrillation: Rate control with metoprolol Continue coumadin Monitor PT/INR (6) DM type 2 (diabetes mellitus, type 2): Hyperglycemia BS increased above 400 Case discussed with pharmacy Solumedrol transition yo prednisone daily starting on insulin drip Pharmacy on board for glycemic management Monitor BS (7) RHF (right heart failure): ECHO showed right ventricle severely dilated with EF >70 Continue monitor (8) ESRD (end stage renal disease) on dialysis: Next HD on Friday had PermCath exchange this yesterday by vascular Nephro on board Monitor BMP (9) Hypothyroidism: Continue Levothyroxine (10) HLD (hyperlipidemia): Continue atorvastatin (11) Neuropathy: Continue gabapentin (12) Decubitus ulcer, buttock: Continue wound care DVT px SCDs Subjective Pt was seen and examined Lying in bed with no distress Breathing slightly improves Denies any chest pain Physical Exam Vital Signs (Past 24 Hours): Last Vital Signs Temp 36.4 C L 12/27/18 19:45 Pulse 102 H 12/27/18 19:45 Resp 20 12/27/18 19:45 BP 135/85 12/27/18 19:45 Pulse Ox 96 12/27/18 19:45 Physical Exam: General- No acute distress Head- atraumatic Eyes- PERRL, EOMI, ENT- oropharynx clear Neck- supple, no JVD Lungs- +wheezing Heart- regular rhythm; no murmur Abdomen- normal bowel sounds, soft, nontender Extremities- no calf tenderness, +edema Neuro- alert, oriented x 3; PERRL, EOMI; no facial palsy Skin- warm & dry (1) DM type 2 (diabetes mellitus, type 2) Diabetes mellitus complication detail: with polyneuropathy Diabetes mellitus complication status: with neurologic complications Diabetes mellitus computer terminal operator insulin use: with computer terminal operator use Qualified Code(s): E11.42 - Type 2 diabetes mellitus with diabetic polyneuropathy; Z79.4 - intermodal dispatcher (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 (2) Atrial fibrillation Atrial fibrillation type: paroxysmal Qualified Code(s): I48.0 - Paroxysmal atrial fibrillation (3) HLD (hyperlipidemia) Hyperlipidemia type: unspecified Qualified Code(s): E78.5 - Hyperlipidemia, unspecified (4) Hypothyroidism Hypothyroidism type: unspecified Qualified Code(s): E03.9 - Hypothyroidism, unspecified (5) RHF (right heart failure) Heart failure chronicity: unspecified Qualified Code(s): I50.810 - Right heart failure, unspecified (6) Hypotension Hypotension type: hemodialysis-associated hypotension Qualified Code(s): I95.3 - Hypotension of hemodialysis (7) Pneumonia Laterality: right Lung location: lower lobe of lung Pneumonia type: due to unspecified organism Qualified Code(s): J18.1 - Lobar pneumonia, unspecified organism
[2018-12-27] MEDS: METOPROLOL SUCC 25MG EXT REL TAB PO SCH (21:14)
[2018-12-27] MEDS: SERTRALINE HCL 50 MG TABLET PO SCH (21:15)
[2018-12-27] MEDS: ATORVASTATIN 40 MG TAB PO SCH (21:15)
[2018-12-28] MEDS: HYDROCODONE/ACETAMOPHEN 5/325MG TAB PO PRN (00:41)
[2018-12-28] MEDS ORDERED: INSULIN ASPART 100 UNITS/ML 3 ML PEN SC ONE (02:30)
[2018-12-28] MEDS: LEVOTHYROXINE SODIUM 125 MCG TABLET PO SCH (06:34)
[2018-12-28 06:58] LABS: Mean Corpuscular Hgb Conc 32.1 g/dL (32-36)
[2018-12-28] MEDS: ALBUT/IPRATROP 3MG/0.5MG NEB 3 ML VIAL NEB SCH ×4 (07:01→19:02)
[2018-12-28 07:06] LABS: Hematocrit (blood only) 35.8 % (37-47); Hemoglobin 11.5 g/dL (12.0-16.0); Mean Corpuscular Volume 89.9 fL (80-100); RDW Coefficient of Variation 17.7 % (11.5-14.5); RDW Standard Deviation 58.1 fL (36.4-46.3); Red Blood Count 3.98 M/uL (4.2-5.4); White Blood Count 21.76 K/uL (4.8-10.8)
[2018-12-28 07:07] LABS: INR 1.4 (0.9-1.1); Prothrombin Time 14.2 Seconds (9.0-12.0)
[2018-12-28] MEDS ORDERED: SODIUM CHLORIDE 0.9% 1000ML 1,000 ML IV PRN (07:10)
[2018-12-28 07:18] LABS: Mean Platelet Volume 10.4 fL (7.4-10.4); Platelet Count 129 K/uL (130-400)
[2018-12-28 07:19] LABS: Platelet Estimate Decreased (Normal)
[2018-12-28 07:28] LABS: BUN Creatinine Ratio 14.1 (10-20); Calcium 8.9 mg/dl (8.5-10.1); Creatinine Clr Calc Pharmacy 10.2 ml/min; Est GFR (African American) 7.5; Est GFR (Non-African American) 6.5; Potassium 4.5 mmol/L (3.5-5.1)
[2018-12-28] MEDS: LORazepam 0.5 MG TAB PO SCH (07:40)
[2018-12-28] MEDS: NEPHROCAPS PO SCH (07:40)
[2018-12-28] MEDS: PANTOprazole 40 MG TAB PO SCH (07:40)
[2018-12-28] MEDS: DOCUSATE SODIUM 100 MG CAP PO SCH ×2 (07:40→20:29)
[2018-12-28] MEDS: MAGNESIUM OXIDE 400 MG TAB PO SCH (07:40)
[2018-12-28] MEDS: SEVELAMER HCL 800 MG TABLET PO SCH (07:40)
[2018-12-28] MEDS: predniSONE 20 MG TAB PO SCH (07:41)
[2018-12-28] MEDS: ASCORBIC ACID 500 MG TAB PO SCH (07:41)
[2018-12-28] MEDS: GABAPENTIN 300 MG CAP PO SCH ×2 (07:41→18:07)
[2018-12-28] MEDS: MIDODRINE HCL 10 MG TAB PO SCH ×3 (07:41→18:08)
[2018-12-28] MEDS: CHOLECALCIFEROL 1,000 UNITS TAB PO SCH (07:41)
[2018-12-28] MEDS: NYSTATIN POWDER 15GM BTL EXT SCH ×2 (07:42→21:44)
[2018-12-28] MEDS: INSULIN ASPART 100 UNITS/ML 3 ML PEN SC SCH ×4 (07:48→21:33)
[2018-12-28] MEDS: INSULIN GLARGINE SOLOSTAR 100 UNITS/ML 3 ML PEN SC SCH (07:48)
[2018-12-28] MEDS ORDERED: HEPARIN SOD (PORCINE) 1000 UNIT/ML 10 ML VIAL IV SCH (08:00)
[2018-12-28] MEDS ORDERED: INSULIN GLARGINE SOLOSTAR 100 UNITS/ML 3 ML PEN SC SCH (09:00)
[2018-12-28] MEDS ORDERED: INSULIN HUMAN NPH SC SCH (09:00)
--- NOTE | 2018-12-28 09:26 | Pharmacy Report ---
Pharmacy Glycemic Short Note 2 - Date of Service December 28, 2018 - Glycemic Short BSG Results (Last 24 hours): 12/27/18 12/27/18 12/27/18 09:17 11:04 14:02 Glucose 466 H* POC Glucose 482 H* 532 H* 12/27/18 12/27/18 12/27/18 16:02 16:57 16:58 Glucose POC Glucose 483 H* > 600 H* 503 H* 12/27/18 12/27/18 12/27/18 18:06 19:43 20:42 Glucose POC Glucose 276 H 167 H 135 H 12/27/18 12/27/18 12/27/18 21:42 22:00 22:15 Glucose POC Glucose 103 H 96 182 H 12/27/18 12/28/18 12/28/18 23:16 00:22 01:19 Glucose POC Glucose 170 H 154 H 168 H 12/28/18 12/28/18 12/28/18 02:12 04:04 05:59 Glucose POC Glucose 189 H 186 H 184 H 12/28/18 12/28/18 06:47 07:21 Glucose 196 H POC Glucose 243 H OUTPATIENT ANTIDIABETIC REGIMEN: * Lantus 52 units in the morning (per patient interview) * HbA1c: not useful to interpret, in the setting of dialysis ASSESSMENT: 12/28/18: * Pt bsg's fell within goal range for insulin drip. Insulin drip turned off around midnight. * FBS this AM 196 mg/dL most likely due to continued prednisone. CF and CR already considerably tight. Due to the fragile nature of this patient I h esitate to tighten these further. * Initially reduced dose of Lantus this morning due to possibility of HD, however full dose was already given. * Pt was not able to have HD this morning. She is NPO after midnight for permacath replacement tomorrow. Morning Lantus and NPH doses are on hold for now. I would expect the pt will require an insulin drip post-op tomorrow, especially in the face of additional pre-op hydrocortisone and missed HD session today. 12/27/18 * 63yo brittle diabetic with frequent large BSG swings. A1c not reliable d/t ESRD/HD. * Pt takes Lantus once daily at home but we are dosing BID for admission. Will work back to once daily dosing. * Outpatient dosing of Lantus is 52 units daily but pt only ordered 40 units/day - pt typically requires much less than outpatient dosing while admitted and NOT on steroids. Will work back to outpatient dosing since pt continues on Solumedrol 40mg IV Q12hrs. * Patient is very carb sensitive- needs large doses of NovoLog to cover carbs but tends to go low when large doses of correctional insulin are given with carb coverage (bc BSG is high pre-meal) * Will loosen CF but keep CR tight to prevent overdosing and rebound hypo when BSG elevated pre-meal 12/26/18: * FBS this AM 331mg/dL. She did have a low at lunch that is concerning, 61mg/dL. Likely due to the 40units of Novolog given at breakfast. I did loosen her up *slightly* 05/17.5--->06/17. A small change in CF for a BSG in the 300s will likely have a significant effect on subsequent insulin doses. 12/25/18: * Patient received a total of 126 units of insulin yesterday, 36 units of which were basal. * BSGs were above 200 this AM. Patient had a Perm cath exchange procedure this AM and then went to HD; she did not get a lunch tray today. * Solu-medrol changed from 40 mg IV q8h to q12h this AM. Expect post-prandial BSG to be lower d/t reduction in steroid dosing. In addition, HD is expected to remove some glucose. * Lantus 15 units were given this AM since this dose helped to control BSG on his last HD (2 days ago). * Will continue current CF and CR for Novolog and increase Lantus back upto 20 units BID. 12/24/18 * Patient had severe hyperglycemia this morning (BSG >400). Suspect that this is due to disruptions in her meal times and Novolog administration times yesterday d/t dialysis session. Patient also reports having a bowl of cereal late last night, which was not covered. * With correction, BSG has improved pre-lunch. * Patient is expected to be NPO after midnight again tonight for a procedure tomorrow. 12/23/18 * Patient currently receiving 100-140 units of insulin per day with poor control * Pt remains on Solumedrol 40mg IV Q8hrs which is contributing to steroid induced hyperglycemia. * AM fasting BSG still elevated at 253 mg/dl. Patient received 13 units of NovoLog at 0200 to cover hyperglycemia. Will add this 13 units into total basal dose (additional 5-6 units BID) * Pt at HD over lunch time. Most likely will receive a late lunch tray. Will make sure that CHO from lunch are covered at whatever time they are consumed * OK that regimen is heavily weighted towards prandial coverage as steroids have their most profound effect on post-prandial hyperglycemia. * Additionally, per previous admissions, Pt requires significantly less insulin per day when NOT on steroids. Insulin regimen will need tapered with each step down in steroid dosing. PLAN FOR INPATIENT GLYCEMIC CONTROL: * Basal insulin * Lantus 50 units this morning, on hold for procedure tomorrow. * NPH 30 units Qam, on hold for procedure tomorrow. * Bolus insulin * NovoLog per scale ACHS or Q6hrs while NPO * Goal Range: Low 110 mg/dL - High 140 mg/dL * Correction Factor: 10 mg/dL/unit * Nutritional / Prandial insulin per carb ratio of 1 unit per 2.5 grams CHO consumed * One overnight check added. PLAN FOR DISCHARGE: * See 12/20 note
[2018-12-28] MEDS: HEPARIN SOD (PORCINE) 1000 UNIT/ML 10 ML VIAL IV SCH ×2 (10:04→10:05)
--- NOTE | 2018-12-28 11:20 | Communication Note ---
Date of Service: December 28, 2018 Notified this AM that pt's permcath did not function for HD. Discussed with Dr Falk, planning on removing and placing permcath in OR tomorrow. Pt agreeable.
--- NOTE | 2018-12-28 13:37 | Progress Note ---
DATE: 12/28/2018 PULMONARY PROGRESS NOTE TIME: 1:10 p.m. SUBJECTIVE: The patient states she feels a little more short of breath today than she was previously. She has been in the hospital now for about 10 days. In general, she is improving. Just today, however, she felt more short of breath and congested than she did yesterday. She is not expectorating any phlegm. She denies any chills or fevers. She states she has a new dialysis catheter that is not working. PHYSICAL EXAMINATION: GENERAL: The patient is a 63-year-old female who looks older than her chronologic age. She was cooperative, alert and oriented. VITAL SIGNS: Temperature 36.5. Heart rate was 105 per minute. The rhythm was irregular. Blood pressure 130/80. LUNGS: Auscultation revealed rhonchi throughout much of the right chest. Rhonchi were mild on the left than in mostly the left base. Respiratory rate is 20 breaths per minute. Saturation was 91% on 4 liters. Her saturation is a little lower than it has been previously. EXTREMITIES: Reveals purple skin discoloration of both lower extremities. Minimal edema was noted. She states her legs are thinner than they have been for a long time. LABORATORY DATA: White count is 21.76. It appears that this has been elevated to a similar degree going back to 4719. Hemoglobin is 11.5. Platelets 129,000. INR today is 1.4. Electrolytes show sodium 133, potassium 4.5, chloride 98, bicarbonate 21. BUN is 89 with a creatinine 6.24. Chest x-ray done yesterday shows focal atelectatic change at the right lung base which is unchanged. The x-ray appeared fairly similar to the prior one on December 18. Blood cultures from admission showed no growth. IMPRESSION: 1. Severe chronic obstructive pulmonary disease with exacerbation. 2. Atelectatic changes at the right lung base. 3. Right heart failure. 4. Multiple lung nodules - unchanged dating back to 2014. COMMENTS AND RECOMMENDATIONS: The patient was believed to have pneumonitis superimposed upon her severe COPD. She has clinically improved, although notices a little more shortness of breath this afternoon. She has been on Ancef. I believe this was not for her lungs, but rather for coverage from the dialysis catheter insertion. She is on prednisone 40 mg daily. She is on DuoNebs q.i.d. Would continue with current treatment.
[2018-12-28] MEDS: WARFARIN SOD 5 MG TAB PO SCH (17:53)
--- NOTE | 2018-12-28 19:08 | Nephrology Progress Note ---
Date of Service December 28, 2018 Assessment & Plan (1) ESRD (end stage renal disease) on dialysis: on MWFSat dialysis via TDC -TDC not functioning >> vascular to reposition in AM; then we will try to run it -Next dialysis will be tomorrow -blood culture results one of 2 from [facility] positive for Salmonella but blood cultures in [facility] at admission have been negative. >> need to f/u on curbside recs from inf dzs if any w/ Dr Gentile (2) Acute and chronic respiratory failure with hypoxia: Multifactorial including pneumonia and volume overload. Continue aggressive fluid management with dialysis; f/u pulm recs Subjective seen on rounds late this afternoon. denies worsened sob; + slight edema increase; no n/v; still weak. tdc did not run today and tx aborted; for tdc exchange in am Physical Exam Vital Signs (Past 24 Hours): Last Vital Signs Temp 36.6 C 12/28/18 15:36 Pulse 93 H 12/28/18 16:00 Resp 20 12/28/18 15:36 BP 113/77 12/28/18 15:36 Pulse Ox 91 12/28/18 15:36 Constitutional: well developed, well nourished, + obese and cooperative up in chair w/ dinner tray Eyes: EOM intact bilaterally ENMT: Ears: no external ear abnormality Nose: no external nose abnormality Mouth: + dry oral mucous membranes Neck: no nuchal rigidity Respiratory: + labored breathing Auscultation: + diminished lung sounds, + rhonchi and + wheezes Cardiovascular: Rate/Rhythm: regular rate (distant HS) and regular rhythm Extremities: + edema (indurated 1+) Gastrointestinal (Abdomen): Inspection/Auscultation: normal bowel sounds Percussion/Palpation: abdomen soft; abdomen nontender Musculoskeletal: Extremities: strength 5/5 throughout Skin: no rashes, warm and dry Psychiatric: A+Ox3, euthymic affect Eye Contact: good eye contact Results & Data Laboratory Results Abnormal lab results 12/27/18 12/27/18 12/27/18 Range/Units 19:43 20:42 21:42 WBC (4.8-10.8) K/uL RBC (4.2-5.4) M/uL Hgb (12.0-16.0) g/dL Hct (37-47) % RDW Std Deviation (36.4-46.3) fL RDW Coeff of Yogi (11.5-14.5) % Plt Count (130-400) K/uL PT (9.0-12.0) Seconds INR (0.9-1.1) Sodium (136-145) mmol/L Anion Gap (3-11) BUN (7-18) mg/dl Creatinine (0.6-1.2) mg/dl Glucose (70-99) mg/dl POC Glucose 167 H 135 H 103 H (70-99) 12/27/18 12/27/18 12/28/18 Range/Units 22:15 23:16 00:22 WBC (4.8-10.8) K/uL RBC (4.2-5.4) M/uL Hgb (12.0-16.0) g/dL Hct (37-47) % RDW Std Deviation (36.4-46.3) fL RDW Coeff of Yogi (11.5-14.5) % Plt Count (130-400) K/uL PT (9.0-12.0) Seconds INR (0.9-1.1) Sodium (136-145) mmol/L Anion Gap (3-11) BUN (7-18) mg/dl Creatinine (0.6-1.2) mg/dl Glucose (70-99) mg/dl POC Glucose 182 H 170 H 154 H (70-99) 12/28/18 12/28/18 12/28/18 Range/Units 01:19 02:12 04:04 WBC (4.8-10.8) K/uL RBC (4.2-5.4) M/uL Hgb (12.0-16.0) g/dL Hct (37-47) % RDW Std Deviation (36.4-46.3) fL RDW Coeff of Yogi (11.5-14.5) % Plt Count (130-400) K/uL PT (9.0-12.0) Seconds INR (0.9-1.1) Sodium (136-145) mmol/L Anion Gap (3-11) BUN (7-18) mg/dl Creatinine (0.6-1.2) mg/dl Glucose (70-99) mg/dl POC Glucose 168 H 189 H 186 H (70-99) 12/28/18 12/28/18 12/28/18 Range/Units 05:59 06:47 06:47 WBC 21.76 H (4.8-10.8) K/uL RBC 3.98 L (4.2-5.4) M/uL Hgb 11.5 L (12.0-16.0) g/dL Hct 35.8 L (37-47) % RDW Std Deviation 58.1 H (36.4-46.3) fL RDW Coeff of Yogi 17.7 H (11.5-14.5) % Plt Count 129 L (130-400) K/uL PT 14.2 H (9.0-12.0) Seconds INR 1.4 H (0.9-1.1) Sodium (136-145) mmol/L Anion Gap (3-11) BUN (7-18) mg/dl Creatinine (0.6-1.2) mg/dl Glucose (70-99) mg/dl POC Glucose 184 H (70-99) 12/28/18 12/28/18 12/28/18 Range/Units 06:47 07:21 11:50 WBC (4.8-10.8) K/uL RBC (4.2-5.4) M/uL Hgb (12.0-16.0) g/dL Hct (37-47) % RDW Std Deviation (36.4-46.3) fL RDW Coeff of Yogi (11.5-14.5) % Plt Count (130-400) K/uL PT (9.0-12.0) Seconds INR (0.9-1.1) Sodium 133 L (136-145) mmol/L Anion Gap 14.0 H (3-11) BUN 89 H (7-18) mg/dl Creatinine 6.24 H* D (0.6-1.2) mg/dl Glucose 196 H (70-99) mg/dl POC Glucose 243 H 180 H (70-99)
[2018-12-28] MEDS: METOPROLOL SUCC 25MG EXT REL TAB PO SCH (20:29)
[2018-12-28] MEDS: SERTRALINE HCL 50 MG TABLET PO SCH (20:29)
[2018-12-28] MEDS: LIDOCAINE 4% CREAM 15 GM TUBE EXT PRN ×2 (20:29→21:32)
[2018-12-28] MEDS: ATORVASTATIN 40 MG TAB PO SCH (20:29)
--- NOTE | 2018-12-28 21:06 | Hospitalist Progress Note ---
Date of Service December 28, 2018 Assessment & Plan (1) Pneumonia: Present on admission with worsening SOB Failed outpatient therapy CXR on admission showed right lower lung opacity Starting on Zosyn then transition to Rocephin on 12/19 Completed the course of Rocephin 12/26 Continue solumedrol 40mg BID Continue nebulizer treatment and oxygen supplement Blood cx on 12/18 from [facility] grew salmonella Blood cx feroz from the ER on 12/18 showed no growth Case discussed with ID (No official consult ) blood cx at [facility] dialysis mostly contamination ID recommended [email or web address] dose given for salmonella (2) Acute and chronic respiratory failure with hypoxia: Present on admission with worsening SOB Failed outpatient therapy CXR on admission showed right lower lung opacity Repeat CXR today showed focal atelectatic change right base unaltered from the prior study. Starting on Zosyn then transition to Rocephin on 12/19 Solumedrol changed to prednisone daily due to hyperglycemia Continue nebulizer treatment and oxygen supplement Pulmonology on board Continue oxygen supplement (3) Hypotension: BP stable Continue outpatient dose of midodrine (4) Elevated troponin: Mostly from ESRD and demand ischemia due to pneumonia (NSTEMI, type II) EKG showed no ischemic changes ECHO showed right ventricle severely dilated with EF >70 Continue statin, metoprolol Denies any symptoms (5) Atrial fibrillation: Rate control with metoprolol Continue coumadin Monitor PT/INR (6) DM type 2 (diabetes mellitus, type 2): Hyperglycemia BS increased above 400 Case discussed with pharmacy Solumedrol transition yo prednisone daily starting on insulin drip Pharmacy on board for glycemic management Monitor BS (7) RHF (right heart failure): ECHO showed right ventricle severely dilated with EF >70 Continue monitor (8) ESRD (end stage renal disease) on dialysis: NO HD done today due to dialysis cath malfunctioning Vascular surgery plan to exchange permcath in am Nephro on board Monitor BMP (9) Hypothyroidism: Continue Levothyroxine (10) HLD (hyperlipidemia): Continue atorvastatin (11) Neuropathy: Continue gabapentin (12) Decubitus ulcer, buttock: Continue wound care DVT px SCDs Subjective Pt was seen and examined Lying in bed with no distress Pt said that she feels much better unable to get HD done today due the dialysis cath malfunctioning Denies any chest pain, palpitation and SOB Physical Exam Vital Signs (Past 24 Hours): Last Vital Signs Temp 36.8 C 12/28/18 19:27 Pulse 96 H 12/28/18 19:27 Resp 20 12/28/18 19:27 BP 122/77 12/28/18 19:27 Pulse Ox 92 12/28/18 19:27 Physical Exam: General- No acute distress Head- atraumatic Eyes- PERRL, EOMI, ENT- oropharynx clear Neck- supple, no JVD Lungs- +mild wheezing Heart- regular rhythm; no murmur Abdomen- normal bowel sounds, soft, nontender Extremities- no calf tenderness, +edema Neuro- alert, oriented x 3; PERRL, EOMI; no facial palsy Skin- warm & dry (1) Pneumonia Pneumonia type: due to unspecified organism Laterality: right Lung location: lower lobe of lung Qualified Code(s): J18.1 - Lobar pneumonia, unspecified organism (2) Hypotension Hypotension type: hemodialysis-associated hypotension Qualified Code(s): I95.3 - Hypotension of hemodialysis (3) Atrial fibrillation Atrial fibrillation type: paroxysmal Qualified Code(s): I48.0 - Paroxysmal atrial fibrillation (4) DM type 2 (diabetes mellitus, type 2) Diabetes mellitus termite renewal inspector insulin use: with termite renewal inspector use Diabetes mellitus complication status: with neurologic complications Diabetes mellitus complication detail: with polyneuropathy Qualified Code(s): E11.42 - Type 2 diabetes mellitus with diabetic polyneuropathy; Z79.4 - detention (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 (5) RHF (right heart failure) Heart failure chronicity: unspecified Qualified Code(s): I50.810 - Right heart failure, unspecified (6) Hypothyroidism Hypothyroidism type: unspecified Qualified Code(s): E03.9 - Hypothyroidism, unspecified (7) HLD (hyperlipidemia) Hyperlipidemia type: unspecified Qualified Code(s): E78.5 - Hyperlipidemia, unspecified
[2018-12-29] MEDS ORDERED: INSULIN ASPART 100 UNITS/ML 3 ML PEN SC ONE (02:00)
[2018-12-29] MEDS: LEVOTHYROXINE SODIUM 125 MCG TABLET PO SCH (06:37)
[2018-12-29] MEDS: HYDROCORTISONE SOD 100 MG in SYRINGE 0 ML IV SCH ×2 (06:37→15:39)
[2018-12-29] MEDS: ALBUT/IPRATROP 3MG/0.5MG NEB 3 ML VIAL NEB SCH ×4 (06:57→20:59)
[2018-12-29] MEDS: SEVELAMER HCL 800 MG TABLET PO SCH (07:32)
[2018-12-29] MEDS ORDERED: CEFAZOLIN 1000MG 1,000 MG/7.5 ML SYR IV ONE (08:00)
[2018-12-29] MEDS ORDERED: INSULIN GLARGINE SOLOSTAR 100 UNITS/ML 3 ML PEN SC ONE (08:15)
--- NOTE | 2018-12-29 08:52 | Nephrology Progress Note ---
Date of Service December 29, 2018 Assessment & Plan (1) ESRD (end stage renal disease) on dialysis: on MWFSat dialysis via TDC -TDC not functioning >> vascular to reposition today;then we will try to run it -Next dialysis will be tomorrow >>>given that she has had TWO catheter exchanges this admission, prefer to dialyze in house again tomorrow and ensure access is runnign well before d/c -blood culture results one of 2 from [facility] positive for Salmonella but blood cultures in [facility] at admission have been negative. >> need to f/u on curbside recs from inf dzs if any w/ Dr Gentile >> inf dzs considered salmonella a contaminant and recommended one dose only levaquin (2) Acute and chronic respiratory failure with hypoxia: Multifactorial including pneumonia and volume overload. Continue aggressive fluid management with dialysis; f/u pulm recs Subjective seen on rounds this am for TDC exchange today then HD; slight more sob but overall thinks she's doing better; has incresaed edema Physical Exam Vital Signs (Past 24 Hours): Last Vital Signs Temp 36.8 C 12/29/18 07:18 Pulse 93 H 12/29/18 07:18 Resp 18 12/29/18 07:18 BP 124/76 12/29/18 07:18 Pulse Ox 96 12/29/18 07:18 Constitutional: well developed, well nourished, + obese and cooperative up in chair on 02nc Eyes: EOM intact bilaterally ENMT: Ears: no external ear abnormality Nose: no external nose abnormality Mouth: + dry oral mucous membranes Neck: no nuchal rigidity Respiratory: Auscultation: + diminished lung sounds, + rhonchi and + wheezes Cardiovascular: Rate/Rhythm: regular rate (distant HS) and regular rhythm Extremities: + edema (indurated 1-2+) Gastrointestinal (Abdomen): Inspection/Auscultation: normal bowel sounds Percussion/Palpation: abdomen soft; abdomen nontender Musculoskeletal: Extremities: strength 5/5 throughout Skin: no rashes, warm and dry Psychiatric: A+Ox3, euthymic affect Eye Contact: good eye contact Results & Data Laboratory Results Abnormal lab results 12/28/18 12/28/18 12/29/18 Range/Units 11:50 20:11 02:21 POC Glucose 180 H 231 H 200 H (70-99) 12/29/18 Range/Units 07:20 POC Glucose 200 H (-)
[2018-12-29] MEDS ORDERED: SODIUM CHLORIDE 0.9% 1000ML 1,000 ML IV PRN (08:53)
[2018-12-29] MEDS: predniSONE 20 MG TAB PO SCH (09:07)
[2018-12-29] MEDS: GABAPENTIN 300 MG CAP PO SCH (09:08)
[2018-12-29] MEDS: DOCUSATE SODIUM 100 MG CAP PO SCH ×2 (09:08→21:24)
[2018-12-29] MEDS: MIDODRINE HCL 10 MG TAB PO SCH (09:08)
[2018-12-29] MEDS: MAGNESIUM OXIDE 400 MG TAB PO SCH (09:08)
[2018-12-29] MEDS: PANTOprazole 40 MG TAB PO SCH (09:08)
[2018-12-29] MEDS: NEPHROCAPS PO SCH (09:08)
[2018-12-29] MEDS: ASCORBIC ACID 500 MG TAB PO SCH (09:12)
[2018-12-29] MEDS: CHOLECALCIFEROL 1,000 UNITS TAB PO SCH (09:12)
[2018-12-29] MEDS: NYSTATIN POWDER 15GM BTL EXT SCH ×2 (09:17→23:15)
[2018-12-29] MEDS: MIDODRINE HCL 2.5 MG TAB PO SCH ×3 (09:18→18:13)
[2018-12-29] MEDS ORDERED: INSULIN REGULAR 250 UNITS in SODIUM CHLORIDE 0.9% 247.5 ML IV SCH (09:45)
--- NOTE | 2018-12-29 10:54 | Pharmacy Report ---
Pharmacy Glycemic Short Note 2 - Date of Service December 29, 2018 - Glycemic Short BSG Results (Last 24 hours): 12/28/18 12/28/18 12/29/18 11:50 20:11 02:21 POC Glucose 180 H 231 H 200 H 12/29/18 07:20 POC Glucose 200 H OUTPATIENT ANTIDIABETIC REGIMEN: * Lantus 52 units in the morning (per patient interview) * HbA1c: not useful to interpret, in the setting of dialysis ASSESSMENT: 12/29/18: * Pt npo this morning for permacath and HD today. * FBS is above goal this morning at 200mg/dL. Will give 25 units of basal insulin (50% of yesterday's dose) due to npo status and anticipated HD. * Pt received routine prednisone 40mg dose today as well as a preop dose of Hydrocortisone 100mg iv x 1. Preop steroids were given too early and surgery was delayed. Pt may need additional steroids prior to surgery. * Due to the historical brittle nature of this patient Dr. Gentile approved preop insulin drip which will be held during surgery and HD. I do not believe this pt's glycemic status can be well controlled with basal/bolus regimen with the stressors involved. Anticipate transitioning pt off drip tomorrow morning. * Insulin drip may naturally taper off overnight due to decreased po intake. If this occurs, ok to discontinue insulin drip and add bsg checks every 4 hours. 12/28/18: * Pt bsg's fell within goal range for insulin drip. Insulin drip turned off around midnight. * FBS this AM 196 mg/dL most likely due to continued prednisone. CF and CR already considerably tight. Due to the fragile nature of this patient I hesitate to tighten these further. * Initially reduced dose of Lantus this morning due to possibility of HD, however full dose was already given. * Pt was not able to have HD this morning. She is NPO after midnight for permacath replacement tomorrow. Morning Lantus and NPH doses are on hold for now. I would expect the pt will require an insulin drip post-op tomorrow, especially in the face of additional pre-op hydrocortisone and missed HD session today. 12/27/18 * 63yo brittle diabetic with frequent large BSG swings. A1c not reliable d/t ESRD/HD. * Pt takes Lantus once daily at home but we are dosing BID for admission. Will work back to once daily dosing. * Outpatient dosing of Lantus is 52 units daily but pt only ordered 40 units/day - pt typically requires much less than outpatient dosing while admitted and NOT on steroids. Will work back to outpatient dosing since pt continues on Solumedrol 40mg IV Q12hrs. * Patient is very carb sensitive- needs large doses of NovoLog to cover carbs but tends to go low when large doses of correctional insulin are given with carb coverage (bc BSG is high pre-meal) * Will loosen CF but keep CR tight to prevent overdosing and rebound hypo when BSG elevated pre-meal 12/26/18: * FBS this AM 331mg/dL. She did have a low at lunch that is concerning, 61mg/dL. Likely due to the 40units of Novolog given at breakfast. I did loosen her up *slightly* 2.5--->06/17. A small change in CF for a BSG in the 300s will likely have a significant effect on subsequent insulin doses. 12/25/18: * Patient received a total of 126 units of insulin yesterday, 36 units of which were basal. * BSGs were above 200 this AM. Patient had a Perm cath exchange procedure this AM and then went to HD; she did not get a lunch tray today. * Solu-medrol changed from 40 mg IV q8h to q12h this AM. Expect post-prandial BSG to be lower d/t reduction in steroid dosing. In addition, HD is expected to remove some glucose. * Lantus 15 units were given this AM since this dose helped to control BSG on his last HD (2 days ago). * Will continue current CF and CR for Novolog and increase Lantus back upto 20 units BID. 12/24/18 * Patient had severe hyperglycemia this morning (BSG >400). Suspect that this is due to disruptions in her meal times and Novolog administration times yesterday d/t dialysis session. Patient also reports having a bowl of cereal late last night, which was not covered. * With correction, BSG has improved pre-lunch. * Patient is expected to be NPO after midnight again tonight for a procedure tomorrow. 12/23/18 * Patient currently receiving 100-140 units of insulin per day with poor control * Pt remains on Solumedrol 40mg IV Q8hrs which is contributing to steroid induced hyperglycemia. * AM fasting BSG still elevated at 253 mg/dl. Patient received 13 units of NovoLog at 0200 to cover hyperglycemia. Will add this 13 units into total basal dose (additional 5-6 units BID) * Pt at HD over lunch time. Most likely will receive a late lunch tray. Will make sure that CHO from lunch are covered at whatever time they are consumed * OK that regimen is heavily weighted towards prandial coverage as steroids have their most profound effect on post-prandial hyperglycemia. * Additionally, per previous admissions, Pt requires significantly less insulin per day when NOT on steroids. Insulin regimen will need tapered with each step down in steroid dosing. PLAN FOR INPATIENT GLYCEMIC CONTROL: * Basal insulin * Lantus 25 units this morning * NPH 30 units Qam, on hold today for procedure. * Insulin drip based on moderate stress, goal range 120 - 180 mg/dL * Bolus insulin * NovoLog per scale ACHS with fixed carb ratio of 1 unit of insulin per 2.5 carbs given. PLAN FOR DISCHARGE: * See 12/20 note
[2018-12-29] MEDS ORDERED: MIDAZOLAM HCL 1 MG/ML 2ML VIAL ONE (11:34)
[2018-12-29] MEDS ORDERED: fentaNYL citrate 100 MCG/2 ML VIAL ONE (11:35)
[2018-12-29] MEDS ORDERED: INSULIN ASPART 100 UNITS/ML 3 ML PEN SC SCH (13:00)
--- NOTE | 2018-12-29 14:25 | Pre Anesthesia Assessment ---
Date of Service December 29, 2018 Pre Sedation Assessment Vital Signs Temp Pulse Pulse Resp BP BP Pulse Ox 12/29/18 14:09 36.5 C 82 22 130/81 94 12/29/18 11:31 36.3 C L 85 20 124/78 90 12/29/18 11:01 88 18 95 12/29/18 07:18 36.8 C 93 H 18 124/76 96 12/29/18 06:57 95 12/29/18 04:00 36.9 C 95 H 20 99/66 L 95 12/29/18 00:30 36.7 C 85 18 117/70 92 12/28/18 19:27 36.8 C 96 H 20 122/77 92 12/28/18 19:02 96 H 16 97 12/28/18 16:00 93 H 12/28/18 15:36 36.6 C 106 H 20 113/77 91 12/28/18 15:03 75 16 93 Cardiovascular RRR, no murmur, no edema Respiratory normal respiratory effort, lungs clear to auscultation Pre-Sedation Airway Assessment Smoking Status: Former smoker Hx Sleep Apnea: Yes Thyromental Distance: > or= 3.5 Finger Breadths Oral Cavity: + Dentures Mallampati Class: III ASA: ASA3 NPO Status Date of Last Intake of Fluids: 12/24/18 Time of Last Intake of Fluids: 23:50 Date of Last Intake of Solid Food: 12/24/18 Time of Last Intake of Solid Foods: 23:50 Procedure Planning Contraindications for Sedation: none Current Medications Reviewed: Yes Notes The planned sedation has been discussed with the patient. Informed Consent was obtained. I have identified the patient, determined the appropriateness of sedation and have assessed the patient immediately prior to the procedure. All medicine(s) and interventions are by my order.
--- NOTE | 2018-12-29 14:25 | History & Physical Bridge Note ---
Date of Service December 29, 2018 History & Physical Bridge Note Patient for removal and insertion of new permcath today. I have discussed the risks options and benefits of the procedure with the patient. The patient understands the risks options and benefits and agrees to the procedure. I have examined the patient, reviewed the History & Physical and in the interval since the performance of the History & Physical I have noted the following changes of clinical significance: no changes noted
[2018-12-29] MEDS ORDERED: LIDOCAINE HCL 1% 20 ML VIAL ONE (14:43)
[2018-12-29] MEDS ORDERED: HEPARIN SOD (PORCINE) 5,000 UNITS/ML VIAL ONE (14:43)
[2018-12-29] MEDS ORDERED: HYDROCORTISONE SOD SUCCINATE 100 MG/2 ML VIAL ONE (14:48)
--- NOTE | 2018-12-29 14:48 | Pre Anesthesia Assessment ---
Date of Service December 29, 2018 Pre Sedation Assessment Vital Signs Temp Pulse Pulse Resp BP BP Pulse Ox 12/29/18 14:09 36.5 C 82 22 130/81 94 12/29/18 11:31 36.3 C L 85 20 124/78 90 12/29/18 11:01 88 18 95 12/29/18 07:18 36.8 C 93 H 18 124/76 96 12/29/18 06:57 95 12/29/18 04:00 36.9 C 95 H 20 99/66 L 95 12/29/18 00:30 36.7 C 85 18 117/70 92 12/28/18 19:27 36.8 C 96 H 20 122/77 92 12/28/18 19:02 96 H 16 97 12/28/18 16:00 93 H 12/28/18 15:36 36.6 C 106 H 20 113/77 91 12/28/18 15:03 75 16 93 Cardiovascular + regular rate and + regular rhythm + edema Respiratory normal respiratory effort, lungs clear to auscultation Pre-Sedation Airway Assessment Smoking Status: Former smoker Hx Sleep Apnea: Yes Short, Thick Neck: No Thyromental Distance: > or= 3.5 Finger Breadths Oral Cavity: + Dentures Mallampati Class: II ASA: ASA3 NPO Status Date of Last Intake of Fluids: 12/29/18 Time of Last Intake of Fluids: 09:00 Date of Last Intake of Solid Food: 12/28/18 Time of Last Intake of Solid Foods: 23:30 Procedure Planning Contraindications for Sedation: none Current Medications Reviewed: Yes Notes The planned sedation has been discussed with the patient. Informed Consent was obtained. I have identified the patient, determined the appropriateness of sedation and have assessed the patient immediately prior to the procedure. All medicine(s) and interventions are by my order.
--- NOTE | 2018-12-29 15:41 | Post Operative Brief Note ---
Immediate Post Op Note v1 Date of Surgery December 29, 2018 Pre & Post Diagnosis Operation Date: 12/25/18 08:00 Pre-Op Diagnosis: Malfunctioning Perm Catheter Post-Op Diagnosis: Malfunctioning Perm Catheter Operation Date: 12/29/18 10:30 Pre-Op Diagnosis: Malfunctioning Perm Catheter Post-Op Diagnosis: Malfunctioning Perm Catheter Procedure Operation Date: 12/25/18 08:00 Actual Procedures p Exchange of Perm Catheter, Fluoroscopy for Positioning; Moderate Sedation From 0837 to 0851.(Right) - Yves Falk MD Operation Date: 12/29/18 10:30 Actual Procedures p Removal of Perm Catheter, Insertion of Perm Catheter Left Internal Jugular Approach, Ultrasound Localization of Left Internal Jugular Vein, Fluoroscopy for Positioning; Moderate Sedation From 1526 to 1547(Bilateral) - Yves Falk MD Surgeon Yves Falk MD Restaurant Crew Person Elton Marquez MD Estimated Blood Loss 10 Findings Consistent with Post-Op Diagnosis Anesthesia Type RN Sedation Complications none Disposition Accompanied Patient To Recovery: No Disposition: Recovery Room
--- NOTE | 2018-12-29 15:51 | Operative Report ---
Post Operative Report Pre & Post Diagnosis Operation Date: 12/25/18 08:00 Pre-Op Diagnosis: Malfunctioning Perm Catheter Post-Op Diagnosis: Malfunctioning Perm Catheter Operation Date: 12/29/18 10:30 Pre-Op Diagnosis: Malfunctioning Perm Catheter Post-Op Diagnosis: Malfunctioning Perm Catheter Procedure Operation Date: 12/25/18 08:00 Actual Procedures p Exchange of Perm Catheter, Fluoroscopy for Positioning; Moderate Sedation From 0837 to 0851.(Right) - Yves Falk MD Operation Date: 12/29/18 10:30 Actual Procedures p Removal of Perm Catheter, Insertion of Perm Catheter Left Internal Jugular Approach, Ultrasound Localization of Left Internal Jugular Vein, Fluoroscopy for Positioning; Moderate Sedation From 1526 to 1547. (Bilateral) - Yves Falk MD Surgeon Dr. Dileep Marquez MD Highway Engineer Elton Marquez MD Estimated Blood Loss 10 Findings See Below permcath is in the SVC and draws and flushes easy. Specimens none Anesthesia Type RN Sedation Complications none Disposition Accompanied Patient To Recovery: No Disposition: Recovery Room Indications malfunctioning R side permcath with need for HD. Description of Procedure Patient was takent to the angio suite and placed in the supine position. The left side of the neck and chest wall were prepped and draped in a sterile manner. Local anesthesia was then administered to the appropriate areas of the neck and chest wall. Ultrasound was then used to locate the left internal jugular vein. The vein compressed easily, had no filing defects, and was patent. The vein was then punctured under direct ultrasound imaging. A guidewire was then passed centrally under fluoroscopic imaging. A stab wound was then made in the anterior chest wall and a 23 cm permcath was passed from the stab wound on the chest wall to the puncture site on the neck. The puncture site was then dilated till the 14Fr peel away sheath was inserted. The permcath was then inserted through the sheath to a central position in the distal superior vena cava. The peel away sheath was then removed. The catheter was then sutured in place using nylon sutures. The puncture was then closed using a 4-0 Vicryl subcuticular suture. Dermabond was used for a dressing on the puncture site. Both ports aspirated and flushed easily and were then packed with heparin. A sterile dressing was applied to the catheter. Attention was turned to the right side. The right side of the neck, chest wall and catheter were prepped and draped in a sterile manner. Local anesthesia was then accomplished. Using sharp and blunt dissection, the cuff of the permcath was freed up from the surrounding fibrous tissue. The permcath and cuff were completely removed. Pressure was then applied and adequate hemostasis was obtained. A sterile dressing was then applied. The patient left the angio suite in good condition and tolerated the procedure well. Dr. Falk was scrubbed and present for the entire case. I attest to the content of the Intraoperative Record and any orders documented therein. Any exceptions are noted below.
[2018-12-29] MEDS: WARFARIN SOD 5 MG TAB PO SCH (16:13)
[2018-12-29] MEDS: INSULIN ASPART 100 UNITS/ML 3 ML PEN SC SCH ×2 (18:14→21:03)
--- NOTE | 2018-12-29 18:40 | Hospitalist Progress Note ---
Date of Service December 29, 2018 Assessment & Plan (1) Pneumonia: Present on admission with worsening SOB Failed outpatient therapy CXR on admission showed right lower lung opacity Starting on Zosyn then transition to Rocephin on 12/19 Completed the course of Rocephin 12/26 Continue solumedrol 40mg BID Continue nebulizer treatment and oxygen supplement Blood cx on 12/18 from [facility] grew salmonella Blood cx feroz from the ER on 12/18 showed no growth Case discussed with ID (No official consult ) blood cx at [facility] dialysis mostly contamination ID recommended [email or web address] dose given for salmonella (2) Acute and chronic respiratory failure with hypoxia: Present on admission with worsening SOB Failed outpatient therapy CXR on admission showed right lower lung opacity Repeat CXR today showed focal atelectatic change right base unaltered from the prior study. Starting on Zosyn then transition to Rocephin on 12/19 Solumedrol changed to prednisone daily due to hyperglycemia Will decrease prednisone to 20mg daily Completed course of abx Continue nebulizer treatment and oxygen supplement Pulmonology on board Continue oxygen supplement (3) Hypotension: BP stable Continue outpatient dose of midodrine (4) Elevated troponin: Mostly from ESRD and demand ischemia due to pneumonia (NSTEMI, type II) EKG showed no ischemic changes ECHO showed right ventricle severely dilated with EF >70 Continue statin, metoprolol Denies any symptoms (5) Atrial fibrillation: Rate control with metoprolol Continue coumadin Monitor PT/INR (6) DM type 2 (diabetes mellitus, type 2): Hyperglycemia BS increased above 400 Case discussed with pharmacy Solumedrol transition yo prednisone daily starting on insulin drip this morning since pt received IV steroid for procedure Pharmacy on board for glycemic management Monitor BS (7) RHF (right heart failure): ECHO showed right ventricle severely dilated with EF >70 Continue monitor (8) ESRD (end stage renal disease) on dialysis: NO HD done yesterday due to dialysis cath malfunctioning Vascular surgery exchanged permcath today Currently getting HD Nephro on board Monitor BMP (9) Hypothyroidism: Continue Levothyroxine (10) HLD (hyperlipidemia): Continue atorvastatin (11) Neuropathy: Continue gabapentin (12) Decubitus ulcer, buttock: Continue wound care DVT px SCDs Disposition will discharge after using the dialysis cath x2 with no problem Subjective Pt was seen and examined Sitting in chair with no distress Pt said that her breathing is much better She just went this morning for permcath exchange Denies any chest pain, palpitation, dizziness and SOB Physical Exam Vital Signs (Past 24 Hours): Last Vital Signs Temp 36.4 C L 12/29/18 16:12 Pulse 72 12/29/18 17:40 Resp 18 12/29/18 16:00 BP 102/56 L 12/29/18 17:40 Pulse Ox 92 12/29/18 16:00 Physical Exam: General- No acute distress Head- atraumatic Eyes- PERRL, EOMI, ENT- oropharynx clear Neck- supple, no JVD Lungs- mild coarse BS Heart- regular rhythm; no murmur Abdomen- normal bowel sounds, soft, nontender Extremities- no calf tenderness, +edema Neuro- alert, oriented x 3; PERRL, EOMI; no facial palsy Skin- warm & dry (1) DM type 2 (diabetes mellitus, type 2) Diabetes mellitus complication detail: with polyneuropathy Diabetes mellitus complication status: with neurologic complications Diabetes mellitus residential insulin use: with residential use Qualified Code(s): E11.42 - Type 2 diabetes mellitus with diabetic polyneuropathy; Z79.4 - jail (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 (2) Atrial fibrillation Atrial fibrillation type: paroxysmal Qualified Code(s): I48.0 - Paroxysmal atrial fibrillation (3) HLD (hyperlipidemia) Hyperlipidemia type: unspecified Qualified Code(s): E78.5 - Hyperlipidemia, unspecified (4) Hypothyroidism Hypothyroidism type: unspecified Qualified Code(s): E03.9 - Hypothyroidism, unspecified (5) RHF (right heart failure) Heart failure chronicity: unspecified Qualified Code(s): I50.810 - Right heart failure, unspecified (6) Hypotension Hypotension type: hemodialysis-associated hypotension Qualified Code(s): I95.3 - Hypotension of hemodialysis (7) Pneumonia Laterality: right Lung location: lower lobe of lung Pneumonia type: due to unspecified organism Qualified Code(s): J18.1 - Lobar pneumonia, unspecified organism
[2018-12-29] MEDS: METOPROLOL SUCC 25MG EXT REL TAB PO SCH (21:23)
[2018-12-29] MEDS: NYSTATIN SUSP 500,000 U/5 ML UDC PO SCH (21:24)
[2018-12-29] MEDS: SERTRALINE HCL 50 MG TABLET PO SCH (21:24)
[2018-12-29] MEDS: ATORVASTATIN 40 MG TAB PO SCH (21:24)
[2018-12-29] MEDS: LIDOCAINE 4% CREAM 15 GM TUBE EXT PRN (21:24)
[2018-12-30] MEDS ORDERED: INSULIN ASPART 100 UNITS/ML 3 ML PEN SC SCH ×2 (04:00)
[2018-12-30] MEDS: HYDROCODONE/ACETAMOPHEN 5/325MG TAB PO PRN (04:26)
[2018-12-30] MEDS ORDERED: SODIUM CHLORIDE 0.9% 1000ML 1,000 ML IV PRN (07:00)
[2018-12-30] MEDS: ALBUT/IPRATROP 3MG/0.5MG NEB 3 ML VIAL NEB SCH ×3 (07:04→15:39)
[2018-12-30 07:25] LABS: Hematocrit (blood only) 33.4 % (37-47); Hemoglobin 10.7 g/dL (12.0-16.0); Mean Platelet Volume 10.3 fL (7.4-10.4); Platelet Count 144 K/uL (130-400); RDW Coefficient of Variation 17.6 % (11.5-14.5); RDW Standard Deviation 58.6 fL (36.4-46.3); Red Blood Count 3.67 M/uL (4.2-5.4); White Blood Count 21.72 K/uL (4.8-10.8)
[2018-12-30 07:38] LABS: INR 1.8 (0.9-1.1); Prothrombin Time 17.7 Seconds (9.0-12.0)
[2018-12-30] MEDS: LEVOTHYROXINE SODIUM 125 MCG TABLET PO SCH (07:42)
[2018-12-30 07:48] LABS: BUN Creatinine Ratio 10.5 (10-20); Calcium 8.7 mg/dl (8.5-10.1); Creatinine Clr Calc Pharmacy 11.7 ml/min; Est GFR (African American) 10.9; Est GFR (Non-African American) 9.4; Potassium 4.2 mmol/L (3.5-5.1)
--- NOTE | 2018-12-30 07:51 | Nephrology Progress Note ---
Date of Service December 30, 2018 Assessment & Plan (1) ESRD (end stage renal disease) on dialysis: on MWFSat dialysis via TDC; she is tdc dependent -vascular appreciated in exchanging tdc second time this admission >>>given that she has had TWO catheter exchanges this admission, prefer to dialy ze in house again today; if running well today, reasonable from renal standpoint to d/c -blood culture results one of 2 from [place] positive for Salmonella but blood cultures in [facility] at admission have been negative. inf dzs considered salmonella a contaminant and recommended one dose only levaquin (2) Acute and chronic respiratory failure with hypoxia: Multifactorial including pneumonia and volume overload. Continue aggressive fluid management with dialysis; f/u pulm recs Subjective sitting in bed; tolerated hd yesterday w/ 1.8 L uf using new catheter; feels she is doing better at mobilizing phlegm; no worse sob; some oozing/bruising around catheter sites. edema slightly improved Physical Exam Vital Signs (Past 24 Hours): Last Vital Signs Temp 36.9 C 12/30/18 03:56 Pulse 85 12/30/18 07:04 Resp 16 12/30/18 07:04 BP 115/71 12/30/18 03:56 Pulse Ox 94 12/30/18 07:04 Constitutional: well developed, well nourished, + obese and cooperative sitting in bed on 02 nc Eyes: EOM intact bilaterally ENMT: Ears: no external ear abnormality Nose: no external nose abnormality Mouth: + dry oral mucous membranes Neck: no nuchal rigidity Respiratory: Auscultation: + diminished lung sounds, + rhonchi and + wheezes Cardiovascular: Rate/Rhythm: regular rate (distant HS) and regular rhythm Extremities: + edema (indurated 1+) Gastrointestinal (Abdomen): Inspection/Auscultation: normal bowel sounds Percussion/Palpation: abdomen soft; abdomen nontender Musculoskeletal: Extremities: strength 5/5 throughout Skin: no rashes, warm and dry Psychiatric: A+Ox3, euthymic affect Eye Contact: good eye contact Results & Data Laboratory Results Abnormal lab results 12/29/18 12/29/18 12/29/18 Range/Units 11:59 13:08 16:38 WBC (4.8-10.8) K/uL RBC (4.2-5.4) M/uL Hgb (12.0-16.0) g/dL Hct (37-47) % RDW Std Deviation (36.4-46.3) fL RDW Coeff of Yogi (11.5-14.5) % PT (9.0-12.0) Seconds INR (0.9-1.1) Sodium (136-145) mmol/L Anion Gap (3-11) BUN (7-18) mg/dl Creatinine (0.6-1.2) mg/dl Glucose (70-99) mg/dl POC Glucose 284 H 257 H 225 H (70-99) 12/30/18 12/30/18 12/30/18 Range/Units 00:01 03:58 07:05 WBC 21.72 H (4.8-10.8) K/uL RBC 3.67 L (4.2-5.4) M/uL Hgb 10.7 L (12.0-16.0) g/dL Hct 33.4 L (37-47) % RDW Std Deviation 58.6 H (36.4-46.3) fL RDW Coeff of Yogi 17.6 H (11.5-14.5) % PT (9.0-12.0) Seconds INR (0.9-1.1) Sodium (136-145) mmol/L Anion Gap (3-11) BUN (7-18) mg/dl Creatinine (0.6-1.2) mg/dl Glucose (70-99) mg/dl POC Glucose 130 H 150 H (70-99) 12/30/18 12/30/18 12/30/18 Range/Units 07:05 07:05 07:27 WBC (4.8-10.8) K/uL RBC (4.2-5.4) M/uL Hgb (12.0-16.0) g/dL Hct (37-47) % RDW Std Deviation (36.4-46.3) fL RDW Coeff of Yogi (11.5-14.5) % PT 17.7 H (9.0-12.0) Seconds INR 1.8 H (0.9-1.1) Sodium 134 L (136-145) mmol/L Anion Gap 12.0 H (3-11) BUN 49 H (7-18) mg/dl Creatinine 4.61 H* (0.6-1.2) mg/dl Glucose 120 H (70-99) mg/dl POC Glucose 118 H (70-99)
[2018-12-30] MEDS: NEPHROCAPS PO SCH (08:32)
[2018-12-30] MEDS: GABAPENTIN 300 MG CAP PO SCH ×2 (08:32→17:52)
[2018-12-30] MEDS: PANTOprazole 40 MG TAB PO SCH (08:32)
[2018-12-30] MEDS: DOCUSATE SODIUM 100 MG CAP PO SCH (08:32)
[2018-12-30] MEDS: NYSTATIN SUSP 500,000 U/5 ML UDC PO SCH ×3 (08:33→17:52)
[2018-12-30] MEDS: SEVELAMER HCL 800 MG TABLET PO SCH (08:33)
[2018-12-30] MEDS: ASCORBIC ACID 500 MG TAB PO SCH (08:33)
[2018-12-30] MEDS: CHOLECALCIFEROL 1,000 UNITS TAB PO SCH (08:33)
[2018-12-30] MEDS: MAGNESIUM OXIDE 400 MG TAB PO SCH (08:33)
[2018-12-30] MEDS: NYSTATIN POWDER 15GM BTL EXT SCH (08:34)
[2018-12-30] MEDS: INSULIN ASPART 100 UNITS/ML 3 ML PEN SC SCH ×3 (08:44→17:52)
[2018-12-30] MEDS: LORazepam 0.5 MG TAB PO SCH (08:54)
[2018-12-30] MEDS: POLYETHYLENE (MIRALAX) 17 GM PACK PO PRN (08:54)
[2018-12-30] MEDS ORDERED: predniSONE 20 MG TAB PO SCH (09:00)
[2018-12-30] MEDS ORDERED: INSULIN HUMAN NPH SC SCH (09:00)
[2018-12-30] MEDS ORDERED: INSULIN GLARGINE SOLOSTAR 100 UNITS/ML 3 ML PEN SC ONE (09:00)
--- NOTE | 2018-12-30 10:58 | Pharmacy Report ---
Pharmacy Glycemic Short Note 2 - Date of Service December 30, 2018 - Glycemic Short BSG Results (Last 24 hours): 12/29/18 12/29/18 12/29/18 11:59 13:08 16:38 Glucose POC Glucose 284 H 257 H 225 H 12/29/18 12/29/18 12/30/18 20:28 21:07 00:01 Glucose POC Glucose 89 90 130 H 12/30/18 12/30/18 12/30/18 03:58 07:05 07:27 Glucose 120 H POC Glucose 150 H 118 H OUTPATIENT ANTIDIABETIC REGIMEN: * Lantus 52 units in the morning (per patient interview) * HbA1c: not useful to interpret, in the setting of dialysis ASSESSMENT: 12/30/18: * Patient received 25 units of basal insulin + insulin drip yesterday. * Overnight and Fasting BSG in range. Insulin drip was put on hold late last night. * Prednisone dose was decreased to 20 mg daily today (halved from yesterday), NPH dose was also halved this AM. * Pt had HD yesterday and plan for HD again today. BSGs sometimes go lower after HD. Lantus dose this AM was reduced slightly to 20 units. * Novolog parameters were also loosened since Prednisone dose decreased and HD scheduled today. 12/29/18: * Pt npo this morning for permacath and HD today. * FBS is above goal this morning at 200mg/dL. Will give 25 units of basal insulin (50% of yesterday's dose) due to npo status and anticipated HD. * Pt received routine prednisone 40mg dose today as well as a preop dose of Hydrocortisone 100mg iv x 1. Preop steroids were given too early and surgery was delayed. Pt may need additional steroids prior to surgery. * Due to the historical brittle nature of this patient Dr. Gentile approved preop insulin drip which will be held during surgery and HD. I do not believe this pt's glycemic status can be well controlled with basal/bolus regimen with the stressors involved. Anticipate transitioning pt off drip tomorrow morning. * Insulin drip may naturally taper off overnight due to decreased po intake. If this occurs, ok to discontinue insulin drip and add bsg checks every 4 hours. 12/28/18: * Pt bsg's fell within goal range for insulin drip. Insulin drip turned off around midnight. * FBS this AM 196 mg/dL most likely due to continued prednisone. CF and CR already considerably tight. Due to the fragile nature of this patient I hesitate to tighten these further. * Initially reduced dose of Lantus this morning due to possibility of HD, however full dose was already given. * Pt was not able to have HD this morning. She is NPO after midnight for permacath replacement tomorrow. Morning Lantus and NPH doses are on hold for now. I would expect the pt will require an insulin drip post-op tomorrow, especially in the face of additional pre-op hydrocortisone and missed HD session today. 12/27/18 * 63yo brittle diabetic with frequent large BSG swings. A1c not reliable d/t ESRD/HD. * Pt takes Lantus once daily at home but we are dosing BID for admission. Will work back to once daily dosing. * Outpatient dosing of Lantus is 52 units daily but pt only ordered 40 un its/day - pt typically requires much less than outpatient dosing while admitted and NOT on steroids. Will work back to outpatient dosing since pt continues on Solumedrol 40mg IV Q12hrs. * Patient is very carb sensitive- needs large doses of NovoLog to cover carbs but tends to go low when large doses of correctional insulin are given with carb coverage (bc BSG is high pre-meal) * Will loosen CF but keep CR tight to prevent overdosing and rebound hypo when BSG elevated pre-meal 12/26/18: * FBS this AM 331mg/dL. She did have a low at lunch that is concerning, 61mg/dL. Likely due to the 40units of Novolog given at breakfast. I did loosen her up *slightly* 2.5--->06/17. A small change in CF for a BSG in the 300s will likely have a significant effect on subsequent insulin doses. 12/25/18: * Patient received a total of 126 units of insulin yesterday, 36 units of which were basal. * BSGs were above 200 this AM. Patient had a Perm cath exchange procedure this AM and then went to HD; she did not get a lunch tray today. * Solu-medrol changed from 40 mg IV q8h to q12h this AM. Expect post-prandial BSG to be lower d/t reduction in steroid dosing. In addition, HD is expected to remove some glucose. * Lantus 15 units were given this AM since this dose helped to control BSG on his last HD (2 days ago). * Will continue current CF and CR for Novolog and increase Lantus back upto 20 units BID. 12/24/18 * Patient had severe hyperglycemia this morning (BSG >400). Suspect that this is due to disruptions in her meal times and Novolog administration times yesterday d/t dialysis session. Patient also reports having a bowl of cereal late last night, which was not covered. * With correction, BSG has improved pre-lunch. * Patient is expected to be NPO after midnight again tonight for a procedure tomorrow. 12/23/18 * Patient currently receiving 100-140 units of insulin per day with poor control * Pt remains on Solumedrol 40mg IV Q8hrs which is contributing to steroid induce d hyperglycemia. * AM fasting BSG still elevated at 253 mg/dl. Patient received 13 units of NovoLog at 0200 to cover hyperglycemia. Will add this 13 units into total basal dose (additional 5-6 units BID) * Pt at HD over lunch time. Most likely will receive a late lunch tray. Will make sure that CHO from lunch are covered at whatever time they are consumed * OK that regimen is heavily weighted towards prandial coverage as steroids have their most profound effect on post-prandial hyperglycemia. * Additionally, per previous admissions, Pt requires significantly less insulin per day when NOT on steroids. Insulin regimen will need tapered with each step down in steroid dosing. PLAN FOR INPATIENT GLYCEMIC CONTROL: * Basal insulin * Lantus 20 units this morning * NPH 15 units Qam. * Bolus insulin * Novolog ACHS- Goal 120 - 150 mg/dl * Correction Factor = 20 mg/dl/unit * Carb ratio: 1 unit for every 5 gm of CHO consumed PLAN FOR DISCHARGE: * See 12/20 note
[2018-12-30] MEDS: MIDODRINE HCL 10 MG TAB PO SCH ×2 (13:13→17:52)
[2018-12-30] MEDS: WARFARIN SOD 5 MG TAB PO SCH (16:00)
--- NOTE | 2018-12-30 16:43 | Hospitalist Progress Note ---
Date of Service December 30, 2018 Assessment & Plan (1) Pneumonia: Present on admission with worsening SOB Failed outpatient therapy CXR on admission showed right lower lung opacity Starting on Zosyn then transition to Rocephin on 12/19 Completed the course of Rocephin 12/26 Continue solumedrol 40mg BID Continue nebulizer treatment and oxygen supplement Blood cx on 12/18 from [facility] grew salmonella Blood cx feroz from the ER on 12/18 showed no growth Case discussed with ID (No official consult ) blood cx at [facility] dialysis mostly contamination ID recommended [email or web address] dose given for salmonella Clinically stable (2) Acute and chronic respiratory failure with hypoxia: Present on admission with worsening SOB Failed outpatient therapy CXR on admission showed right lower lung opacity Repeat CXR today showed focal atelectatic change right base unaltered from the prior study. Starting on Zosyn then transition to Rocephin on 12/19 Solumedrol changed to prednisone daily due to hyperglycemia Completed course of abx Continue nebulizer treatment and oxygen supplement Pulmonology on board Continue oxygen supplement Will discharge on prednisone 20mg (3) Hypotension: BP stable Continue outpatient dose of midodrine (4) Atrial fibrillation: Rate control with metoprolol Continue coumadin, INR 1.8 today Follow up with the coag clinic Monitor PT/INR (5) DM type 2 (diabetes mellitus, type 2): Hyperglycemia BS increased above 400 Case discussed with pharmacy Solumedrol transition yo prednisone daily insulin drip was placed on hold last night Pharmacy on board for glycemic management Will resume lantus dose on discharge Monitor BS (6) RHF (right heart failure): ECHO showed right ventricle severely dilated with EF >70 Continue monitor (7) ESRD (end stage renal disease) on dialysis: Vascular surgery exchanged permcath on 12/29 Had HD done yesterday and today and dialysis access working fine Nephro on board Next HD schedule for Friday OK from HD standpoint to discharge home (8) Leukocytosis: WBC 21 today Mostly due to steroid Afebrile, Lactate normal Completed course of abx with rocephin for PNA Continue monitor (9) Hypothyroidism: Continue Levothyroxine (10) HLD (hyperlipidemia): Continue atorvastatin (11) Neuropathy: Continue gabapentin (12) Decubitus ulcer, buttock: Continue wound care DVT px SCDs Disposition Will discharge home today Follow up with PCP Follow up with the coag clinic Subjective Pt was seen and examined Sitting in chair with no distress Pt said that she feels much better She had HD done today and her dialysis cath worked fine Denies any chest pain, palpitation, dizziness and fever Physical Exam Physical Exam: General- No acute distress Head- atraumatic Eyes- PERRL, EOMI, ENT- oropharynx clear Neck- supple, no JVD Lungs- +mild Rhonchi Heart- regular rhythm; no murmur Abdomen- normal bowel sounds, soft, nontender Extremities- no calf tenderness Neuro- alert, oriented x 3; PERRL, EOMI; no facial palsy; no dysarthria Skin- warm & dry Results & Data Vital Signs (Past 12 Hours) Vital Signs Temp Pulse Pulse Resp BP BP BP 12/30/18 16:34 94 H 12/30/18 15:39 102 H 18 12/30/18 15:27 36.5 C 97 H 20 113/68 12/30/18 14:25 36.7 C 88 110/56 L 12/30/18 13:40 88 94/45 L 12/30/18 13:20 87 103/44 L 12/30/18 13:00 76 105/45 L 12/30/18 12:40 83 125/50 L 12/30/18 12:20 88 151/48 H 12/30/18 12:00 94 H 97/51 L 12/30/18 11:40 88 85/33 L 12/30/18 11:20 75 93/49 L 12/30/18 11:12 98 H 18 12/30/18 11:00 94 H 96/47 L 12/30/18 10:40 88 100/45 L 12/30/18 10:20 87 104/46 L 12/30/18 10:00 92 H 105/56 L 12/30/18 09:40 95 H 90/57 L 12/30/18 09:20 36.8 C 80 12/30/18 08:00 85 12/30/18 07:04 85 16 Pulse Ox 12/30/18 16:34 12/30/18 15:39 92 12/30/18 15:27 93 12/30/18 14:25 12/30/18 13:40 12/30/18 13:20 12/30/18 13:00 12/30/18 12:40 12/30/18 12:20 12/30/18 12:00 12/30/18 11:40 12/30/18 11:20 12/30/18 11:12 96 12/30/18 11:00 12/30/18 10:40 12/30/18 10:20 12/30/18 10:00 12/30/18 09:40 12/30/18 09:20 12/30/18 08:00 12/30/18 07:04 94 (1) DM type 2 (diabetes mellitus, type 2) Diabetes mellitus complication detail: with polyneuropathy Diabetes mellitus complication status: with neurologic complications Diabetes mellitus buttermaker continuous churn insulin use: with half-way use Qualified Code(s): E11.42 - Type 2 diabetes mellitus with diabetic polyneuropathy; Z79.4 - ferry terminal agent (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 (2) Atrial fibrillation Atrial fibrillation type: paroxysmal Qualified Code(s): I48.0 - Paroxysmal atrial fibrillation (3) HLD (hyperlipidemia) Hyperlipidemia type: unspecified Qualified Code(s): E78.5 - Hyperlipidemia, unspecified (4) Hypothyroidism Hypothyroidism type: unspecified Qualified Code(s): E03.9 - Hypothyroidism, unspecified (5) Leukocytosis Leukocytosis type: unspecified Qualified Code(s): D72.829 - Elevated white blood cell count, unspecified (6) RHF (right heart failure) Heart failure chronicity: unspecified Qualified Code(s): I50.810 - Right heart failure, unspecified (7) Hypotension Hypotension type: hemodialysis-associated hypotension Qualified Code(s): I95.3 - Hypotension of hemodialysis (8) Pneumonia Laterality: right Lung location: lower lobe of lung Pneumonia type: due to unspecified organism Qualified Code(s): J18.1 - Lobar pneumonia, unspecified organism
--- NOTE | 2019-01-03 20:57 | Discharge Summary ---
Date of Service December 30, 2018 Admission HPI Per Admitting Provider This is a 63 y/o female with a PMH of chronic hypoxic respiratory failure on 4L of O2 via NC, obesity hypoventilation syndrome, pulmonary hypertension, chronic right heart failure, atrial fibrillation on Coumadin, ESRD on HD (M/W/F), DM II, hypotension on midodrine, dyslipidemia, hypothyroidism who presented to the ED today with progressive dyspnea while on HD this AM. Pt has been developing progressive respiratory symptoms for the past several days. Seen by business case analyst on 12/11 while on dialysis for acute COPD exacerbation. Pt was also noted to have difficulty keeping her nebulzer and bipap equipment clean at that time and had her oxygen sent to [facility] instead of continuous 4 liters. She was started on rescue kit of prednisone and cefdinir that day. Seen again by [facility] team yesterday, Dr. Akins, for follow-up at which point she continued to complain of productive cough and wheezing. Cefdinir was stopped and patient start on levofloxacin 250 mg after dialysis. Today patient was on HD when she apparently became more short of breath - given a neb treatment without significant improvement so sent to the ED. Currently, pt is seen sitting up in bed as she reports lying flat makes her breathing worse. She reports a sore area on her buttocks so prefers to lean to her right side. She denies chest pain, ARNOLD, vision changes, palpitations, fevers. She has noted a cough - yesterday productive of large amounts of yellow non-bloody sputum but non-productive today. She has noted some chest tightness and wheezing. No N/V/D. Admission Exam Per Admitting Provider Constitutional: well developed, well nourished and + obese; no acute distress and no altered mental status Eyes: PERRL, conjunctivae normal, anicteric sclerae ENMT: external ear and nose normal, oropharynx normal Neck: trachea midline Respiratory: + tachypneic (mild (24-28)); does not use accessory muscles Auscultation: + rhonchi (throughout) and + wheezes (throughout) Cardiovascular: Rate/Rhythm: regular rate and regular rhythm Heart Sounds: no gallop and no cardiac rub Extremities: + edema (trace to 1+ LE edema); no calf tenderness Gastrointestinal Inspection/Auscultation: normal bowel sounds; abdomen not distended Percussion/Palpation: abdomen soft; abdomen nontender Musculoskeletal/Extremities: no cyanosis and no clubbing Pt leaning to right side repeatedly during exam - reports sore area on buttocks and feels more comfortable this way. Skin: Chronic stasis changes bilateral LE Neurologic: moves all extremities Cranial Nerves: tongue midline Psychiatric: A+Ox3, euthymic affect Principal Diagnosis Pneumonia Acute on chronic respiratory failure with hypoxia ESRD On HD Diabetes Leukocytosis Afib Discharge Exam General- No acute distress Head- atraumatic Eyes- PERRL, EOMI, ENT- oropharynx clear Neck- supple, no JVD Lungs- +mild Rhonchi Heart- regular rhythm; no murmur Abdomen- normal bowel sounds, soft, nontender Extremities- no calf tenderness Neuro- alert, oriented x 3; PERRL, EOMI; no facial palsy; no dysarthria Skin- warm & dry Discharge Data Allergies Allergy/AdvReac Type Severity Reaction Status Date / Time bacitracin Allergy Intermediate RASH,ITCH Verified 12/18/18 10:24 celecoxib Allergy Intermediate RASH TO Verified 12/18/18 10:24 SULFA DRUGS neomycin Allergy Intermediate RASH,ITCH Verified 12/18/18 10:24 polymyxin B Allergy Intermediate RASH,ITCH Verified 12/18/18 10:24 Sulfa (Sulfonamide Allergy Intermediate RASH,HAS Verified 12/18/18 10:24 Antibiotics) TAKEN GLIPIZIDE W/O REACTION tigecycline AdvReac Severe MILD Verified 12/18/18 10:24 PANCREATITIS codeine AdvReac Intermediate GI UPSET Verified 12/18/18 10:24 Consultations 12/18/18 11:42 ED Decision to Admit Stat 12/18/18 14:14 Consult Case Management - Discharge Planning Routine Consult Nephrology Routine 12/23/18 20:53 Consult Vascular Surgery Routine 12/25/18 20:19 Consult Pulmonology Routine Procedures Performed Operation Date: 12/25/18 08:00 Actual Procedures p Exchange of Perm Catheter, Fluoroscopy for Positioning; Moderate Sedation From 0837 to 0851.(Right) - Yves Falk MD Operation Date: 12/29/18 10:30 Actual Procedures p Removal of Perm Catheter, Insertion of Perm Catheter Left Internal Jugular Approach, Ultrasound Localization of Left Internal Jugular Vein, Fluoroscopy for Positioning; Moderate Sedation From 1526 to 1547. (Bilateral) - Yves Falk MD Ordered Studies 12/25/18 07:34 EV cvc replace tunnel wo pp Routine 12/29/18 07:28 EV cvc insrt tunnel wo prt/asbestos worker Routine 12/29/18 15:33 US guide vascular access Routine XR chest 2V routine CLINICAL HISTORY: copd dyspnea COMPARISON STUDY: 12/18/2018 FINDINGS: Moderate stable cardia megaly. PermCath in the superior vena cava. Left lung is clear. Focal atelectatic change right base. IMPRESSION: Focal atelectatic change right base unaltered from the prior study. Mild stable cardia megaly. The above report was generated using voice recognition software. It may contain grammatical, syntax or spelling errors. Electronically signed by: Bird Patino M.D. 12/27/2018 10:27 AM Dictated: 12/27/18 1026 Transcribed: 12/27/18 1026 Hospital Course (1) Pneumonia: Present on admission with worsening SOB Failed outpatient therapy CXR on admission showed right lower lung opacity Starting on Zosyn then transition to Rocephin on 12/19 Completed the course of Rocephin 12/26 Continue solumedrol 40mg BID Continue nebulizer treatment and oxygen supplement Blood cx on 12/18 from [facility] grew salmonella Blood cx feroz from the ER on 12/18 showed no growth Case discussed with ID (No official consult ) blood cx at [facility] dialysis mostly contamination ID recommended [email or web address] dose given for salmonella Clinically stable (2) Acute and chronic respiratory failure with hypoxia: Present on admission with worsening SOB Failed outpatient therapy CXR on admission showed right lower lung opacity Repeat CXR today showed focal atelectatic change right base unaltered from the prior study. Starting on Zosyn then transition to Rocephin on 12/19 Solumedrol changed to prednisone daily due to hyperglycemia Completed course of abx Continue nebulizer treatment and oxygen supplement Pulmonology on board Continue oxygen supplement Will discharge on prednisone 20mg (3) Hypotension: BP stable Continue outpatient dose of midodrine (4) Atrial fibrillation: Rate control with metoprolol Continue coumadin, INR 1.8 today Follow up with the coag clinic Monitor PT/INR (5) DM type 2 (diabetes mellitus, type 2): Hyperglycemia BS increased above 400 Case discussed with pharmacy Solumedrol transition yo prednisone daily insulin drip was placed on hold last night Pharmacy on board for glycemic management Will resume lantus dose on discharge Monitor BS (6) RHF (right heart failure): ECHO showed right ventricle severely dilated with EF >70 Continue monitor (7) ESRD (end stage renal disease) on dialysis: Vascular surgery exchanged permcath on 12/29 Had HD done yesterday and today and dialysis access working fine Nephro on board Next HD schedule for Friday OK from HD standpoint to discharge home (8) Leukocytosis: WBC 21 today Mostly due to steroid Afebrile, Lactate normal Completed course of abx with rocephin for PNA Continue monitor (9) Hypothyroidism: Continue Levothyroxine (10) HLD (hyperlipidemia): Continue atorvastatin (11) Neuropathy: Continue gabapentin (12) Decubitus ulcer, buttock: Continue wound care DVT px SCDs Disposition Will discharge home today Follow up with PCP Follow up with the coag clinic Total Time Total Time Spent Total Time Spent (In Minutes): 35 minutes Total Time Includes: Examination of the Patient, Discharge Planning, Medication Reconciliation, Communication With Other Providers and Other Discharge Plan Discharge Items Patient Disposition: Home - Self-Care Reason For Visit: PNEUMONIA Discharge Diagnosis: Pneumonia Acute on chronic respiratory failure with hypoxia ESRD On HD Diabetes Leukocytosis Afib Discharge Goals: Decrease discomfort, Improve disease control, Improve function and Increase independence Activity: Resume your previous activity Activity Comment: As tolerated Non-emergency contact: Primary Care Provider and Vehicle Operator Call non-emergency contact if: you have any medication questions and your temperature is above 101 Follow-up/Referrals: Narendra Gonzalez MD [Primary Care Provider] - Diet: Carb Consistent or DM2 and Dialysis Renal Addtl Provider Instructions: Follow up with your primary care provider Dr. Gonzalez on 01/06 @ 1:05 PM Follow up with the coumadin clinic (INR 1.8 today) to check your INR Your next dialysis is scheduled for fall precaution Prescriptions: New nystatin 100,000 unit/mL Suspension 5 ml PO QID 5 Days Qty: 100 RF: 0 prednisone 10 mg tablet 10 mg PO UD Qty: 7 RF: 0 Continued hydrocodone-acetaminophen 5-325 mg tablet 1 tab PO Q6H PRN (Reason: Pain) RF: 0 sertraline [Zoloft] 100 mg tablet 150 mg PO DAILY RF: 0 atorvastatin 40 mg tablet 40 mg PO HS RF: 0 insulin glargine [Lantus Solostar U-100 Insulin] 100 unit/mL (3 mL) insulin pen 52 units SQ HS RF: 0 metoprolol succinate 25 mg capsule,sprinkle,ER 24hr 25 mg PO HS RF: 0 gabapentin 400 mg capsule 400 mg PO BID RF: 0 levothyroxine [Levo-T] 125 mcg tablet 125 mcg PO QAM RF: 0 albuterol sulfate 90 mcg/actuation HFA aerosol inhaler 2 puffs INH Q6H PRN (Reason: Shortness Of Breath) RF: 0 magnesium oxide 400 mg (241.3 mg magnesium) tablet 400 mg PO DAILY RF: 0 pantoprazole [Protonix] 20 mg tablet,delayed release (DR/EC) 20 mg PO QAM RF: 0 albuterol sulfate 2.5 mg /3 mL (0.083 %) solution for nebulization 1.25 mg INH Q4H PRN (Reason: Shortness Of Breath Or Wheezing) RF: 0 ascorbic acid (vitamin C) 500 mg capsule 500 mg PO DAILY RF: 0 cholecalciferol (vitamin D3) 1,000 unit capsule 1,000 units PO DAILY RF: 0 lorazepam 0.5 mg Tablet 0.5 mg PO UD PRN (Reason: Anxiety) RF: 0 warfarin 5 mg Tablet 7.5 mg PO [id number] RF: 0 prednisone 5 mg Tablet 5 mg PO DAILY RF: 0 docusate sodium [Colace] 100 mg Capsule 100 mg PO BID RF: 0 nystatin 100,000 unit/gram Powder 1 applic TOPICAL BID RF: 0 Anoro Ellipta 62.5-25 mcg/actuation Blister With Device 1 inh INHALATION DAILY RF: 0 Jim Caps 1 mg Capsule 1 cap PO DAILY RF: 0 warfarin 5 mg tablet 5 mg PO 3XWK RF: 0 midodrine 5 mg tablet 5 mg PO TID Qty: 90 RF: 5 Stand-Alone Forms: [facility] Discharge Orders: Discharge Order (Routine); Ordered 12/30/18 Ordered By: Miguel Ángel Gentile Admission Data Admit Date/Time: 12/18/18 11:59 Attending Provider: Miguel Ángel Gentile Admit Provider: Tricia King Primary Care Provider: Narendra Gonzalez Other Providers: Julius Haynes ; Tricia King ; Hansa Ya ; Yves Falk ; Antonio Schroeder Service: Telemetry Other Interventions: Discharge Summary Assessment (RN) Last Done: 12/30/18 18:03 DC Date/Time DO NOT enter until pt leaves facility: 12/30/18 19:05
== END 2018-12-30 19:05 | disposition home or self-care (01) | DRG 189 ==
LOC: ED 10:12 → SUATTDRO 11:59 → 2S 11:59

== ENCOUNTER 2019-01-13 05:47 | Inpatient (IN) ==
--- NOTE | 2019-01-13 06:09 | Emergency Department Note ---
ED Provider Note Name: Ella Blevins Age: 63 F Arrives Via: [facility] Informant: Pt CC: Dialysis Catheter removal HPI: 63 female arrives for evaluation after accidental removal of HD catheter. Patient with left upper chest HD catheter placed a few weeks ago who notes she was going to Dialysis this morning and when she got there she noted catheter was gone. Her apparently found it on floor at home. She notes she feels at her baseline other than mild shortness of breath. She has no cough, chest pain, syncope, abdominal pain. She notes legs always swollen. Does not make urine. She denies any other concerns. States that INR was 7 a few days ago but after IV Vit K she notes INR was 2. No medications prior to arrival this morning. Denies other issues. ROS: See above HPI for pertinent positives & negatives. A total of 10 systems reviewed and were otherwise negative. Past Medical History: Extensive, see below Past Surgical History: Extensive, see below Family History: See Below Social History: See below Home Medications: Extensive, see below Allergies See Below Physical: Vitals: BP 106/65, P 71, R 24, T 37, O2 92 on 5 L NC Exam: GENERAL: Patient is chronically unwell appearing and in no acute distress. EYES: No scleral icterus, unremarkable pupils. ENT: Mucous membranes moist, no nasal congestion. NECK: No masses appreciated, no meningismus, trachea is midline. RESPIRATORY: Wet crackels all lung alvarado. No wheeze. CARDIOVASCULAR: Regular rate and rhythm. No murmurs, rubs, gallops appreciated. GASTROINTESTINAL: Abdomen soft, non-tender, no peritonitis. Bowel sounds positive. No masses appreciated. BACK: No midline tenderness, no CVA tenderness EXTREMITIES: +4 pitting edema bilateral legs with venous stasis. NEUROLOGIC: Alert and oriented, no acute motor or sensory deficits, no focal weakness, cranial nerves grossly intact. SKIN: No rash, no jaundice, no diaphoresis. ED Course: Prior Medical Record, Triage/Nursing Notes, Medications, Allergies reviewed by Me Vital Signs: reviewed and remarkable for Labs: Reviewed and remarkable for consistent with her chronic renal failure Interventions: Saline Lock Imaging: X ray results are stated below per my interpretation: Chest: 1 view: Moderate congestive failure mildly increased from previous Consults: Dr Falk notes he place HD cath later today and that patient should be NPO and admitted to Hospitalist. Dr Palepu aware and will evaluate. Blood pressure: Normal. No Referral necessary Disposition: Hospitalization Medical Decision Makin yr old female arrives for evaluation after accidentally removing her dialysis catheter from left chest without even knowing it was pulled out. No bleeding from site and she does not have evidence of hemothorax. Wound dressed by nursing. Pattient stable. Moderate congestive failure though this seems only mildly worse than baseline. She is breathing comfortably on her NC O2. No evidence of sepsis. Hospitalist consulted for further management after reviewing with Dr Falk. Impression: Complication of vascular access for dialysis Congestive Heart Failure Renal Failure Kwesi Swann MD Impression & Plan Complication of vascular access for dialysis, Congestive heart failure, Renal failure Past Med/Surg History Social History Preferred Language: Upper Sorbian Communication Ability: Effective Beliefs That Will Affect Care: None marital status: Current Living Situation: Spouse Feels Safe at Home: Yes Smoking Status: Never smoker Tobacco Type: cigarettes Cigarettes Per Day: 40 Second Hand Exposure: No Hx Alcohol Use: No Hx Substance Use: No Results & Data Vital Signs Vital Signs - 24 hr 01/13/19 05:51 Temperature 37 C Temperature Source Oral Sepsis Recent Fever Within 48 Hours No Sepsis New/Unexplained Change in Mental Status No Sepsis Action Taken by Nursing No Action Required Pulse Rate 71 Respiratory Rate 24 Respiratory Effort / Characteristics Non-Labored Respiratory Depth Normal Blood Pressure 106/65 Blood Pressure Mean 78 Pulse Oximetry 92 Oxygen Delivery Method Nasal Cannula Oxygen Flow Rate 5 Laboratory Data Result diagrams: 01/13/19 06:13 01/13/19 06:13 Lab Results 01/13/19 01/13/19 Range/Units 06:13 06:13 WBC 11.58 H (4.8-10.8) K/uL RBC 3.74 L (4.2-5.4) M/uL Hgb 11.1 L (12.0-16.0) g/dL Hct 34.4 L (37-47) % MCV 92.0 (80-100) fL MCH 29.7 (25-34) pg MCHC 32.3 (32-36) g/dL RDW Std Deviation 63.7 H (36.4-46.3) fL RDW Coeff of Yogi 19.4 H (11.5-14.5) % Plt Count 141 (130-400) K/uL MPV 9.9 (7.4-10.4) fL Immature Gran % (Auto) 1.4 % Neut % (Auto) 76.3 % Lymph % (Auto) 11.4 % Mcduffie % (Auto) 7.9 % Eos % (Auto) 2.7 % Baso % (Auto) 0.3 % Immature Gran # (Auto) 0.16 H (0.00-0.02) K/uL Neut # (Auto) 8.83 H (1.4-6.5) K/uL Lymph # (Auto) 1.32 (1.2-3.4) K/uL Mcduffie # (Auto) 0.92 H (0.11-0.59) K/uL Eos # (Auto) 0.31 (0-0.5) K/uL Baso # (Auto) 0.04 (0-0.2) K/uL Absolute Nucleated RBC 0.03 H (0-0) K/uL Nucleated RBC % (auto) 0.3 % PT 17.9 H (9.0-12.0) Seconds INR 1.8 H (0.9-1.1) Discharge Plan Visit Data Chief Complaint: Referred by Doctor Stated Complaint: NEEDS CATHETER REPLACEMENT ED Provider: Kwesi Swann Discharge Problem: Complication of vascular access for dialysis, Congestive heart failure, Renal failure Forms Stand Alone Forms: My [facility] Prescriptions Prescriptions: No Action hydrocodone-acetaminophen 5-325 mg tablet 1 tab PO Q6H PRN (Reason: Pain) RF: 0 sertraline [Zoloft] 100 mg tablet 100 mg PO DAILY RF: 0 atorvastatin 40 mg tablet 40 mg PO HS RF: 0 insulin glargine [Lantus Solostar U-100 Insulin] 100 unit/mL (3 mL) insulin pen 30 units SQ HS RF: 0 metoprolol succinate 25 mg capsule,sprinkle,ER 24hr 25 mg PO HS RF: 0 gabapentin 400 mg capsule 400 mg PO BID RF: 0 levothyroxine [Levo-T] 125 mcg tablet 125 mcg PO QAM RF: 0 albuterol sulfate 90 mcg/actuation HFA aerosol inhaler 2 puffs INH Q6H PRN (Reason: Shortness Of Breath) RF: 0 magnesium oxide 400 mg (241.3 mg magnesium) tablet 400 mg PO DAILY RF: 0 pantoprazole [Protonix] 20 mg tablet,delayed release (DR/EC) 20 mg PO QAM RF: 0 albuterol sulfate 2.5 mg /3 mL (0.083 %) solution for nebulization 1.25 mg INH Q4H PRN (Reason: Shortness Of Breath Or Wheezing) RF: 0 ascorbic acid (vitamin C) 500 mg capsule 500 mg PO DAILY RF: 0 cholecalciferol (vitamin D3) 1,000 unit capsule 1,000 units PO DAILY RF: 0 lorazepam 0.5 mg Tablet 0.5 mg PO UD PRN (Reason: Anxiety) RF: 0 prednisone 5 mg Tablet 5 mg PO DAILY RF: 0 docusate sodium [Colace] 100 mg Capsule 100 mg PO BID RF: 0 nystatin 100,000 unit/gram Powder 1 applic TOPICAL BID RF: 0 Anoro Ellipta 62.5-25 mcg/actuation Blister With Device 1 inh INHALATION DAILY RF: 0 warfarin 5 mg tablet 5 mg PO UD RF: 0 Renal Vitamin 0.8 mg Tablet 1 tab PO DAILY RF: 0 Lyrica 25 mg Capsule 25 mg PO BID RF: 0 Probiotic 3 billion cell Capsule 3,000 mmu cells PO DAILY RF: 0 midodrine 5 mg tablet 5 mg PO DAILY RF: 0 Discharge Problem: Complication of vascular access for dialysis Qualifiers: Encounter type: initial encounter Qualified Code(s): T82.9XXA - Unspecified co mplication of cardiac and vascular prosthetic device, implant and graft, initial encounter Congestive heart failure Qualifiers: Heart failure type: unspecified Heart failure chronicity: chronic Qualified Code(s): I50.9 - Heart failure, unspecified Renal failure Qualifiers: Renal failure chronicity: chronic Chronic kidney disease stage: on chronic dialysis Qualified Code(s): N18.6 - End stage renal disease
[2019-01-13 06:22] LABS: Basophils # (auto) 0.04 K/uL (0-0.2); Basophils % (auto) 0.3 %; Eosinophils # (auto) 0.31 K/uL (0-0.5); Eosinophils % (auto) 2.7 %; Hematocrit (blood only) 34.4 % (37-47); Hemoglobin 11.1 g/dL (12.0-16.0); Immature Granulocytes # (auto) 0.16 K/uL (0.00-0.02); Immature Granulocytes % (auto) 1.4 %; Lymphocytes # (auto) 1.32 K/uL (1.2-3.4); Lymphocytes % (auto) 11.4 %; Mean Corpuscular Hgb Conc 32.3 g/dL (32-36); Mean Platelet Volume 9.9 fL (7.4-10.4); Monocytes # (auto) 0.92 K/uL (0.11-0.59); Monocytes % (auto) 7.9 %; Neutrophils # (auto) 8.83 K/uL (1.4-6.5); Neutrophils % (auto) 76.3 %; Nucleated RBC # (auto) 0.03 K/uL (0-0); Nucleated RBC % (auto) 0.3 %; Platelet Count 141 K/uL (130-400); RDW Coefficient of Variation 19.4 % (11.5-14.5); RDW Standard Deviation 63.7 fL (36.4-46.3); Red Blood Count 3.74 M/uL (4.2-5.4); White Blood Count 11.58 K/uL (4.8-10.8)
[2019-01-13 06:30] LABS: INR 1.8 (0.9-1.1); Prothrombin Time 17.9 Seconds (9.0-12.0)
[2019-01-13 06:46] LABS: BUN Creatinine Ratio 8.4 (10-20); Calcium 8.2 mg/dl (8.5-10.1); Est GFR (African American) 6.4; Est GFR (Non-African American) 5.5; Potassium 4.8 mmol/L (3.5-5.1)
--- NOTE | 2019-01-13 07:19 | XRay Report ---
XR chest 1V portable CLINICAL HISTORY: Accidentally removed left upper chest HD catheter COMPARISON STUDY: Chest radiograph January 11, 2019. FINDINGS: Cardiomegaly is unchanged. There is no evidence for pulmonary edema. There is no pneumothor ax or pleural effusion. There is mild right basilar opacity. This probably reflects atelectasis. Left sided dual-lumen catheter is no longer visualized. No fragment is identified. IMPRESSION: 1. No pneumothorax. No catheter fragment within the chest. 2. Cardiomegaly without evidence for pulmonary edema. 3. Right basilar opacity which favors atelectasis. Electronically signed by: Reginald Champion M.D. 01/13/2019 7:18 AM
[2019-01-13] MEDS ORDERED: ONDANSETRON INJ 2 MG/ML 2 ML VIAL IV PRN (09:30)
[2019-01-13] MEDS ORDERED: ACETAMINOPHEN 325 MG TAB PO PRN (09:30)
[2019-01-13] MEDS ORDERED: LORazepam 0.5 MG TAB PO PRN (09:30)
[2019-01-13] MEDS ORDERED: ALBUTEROL HFA 8 GM INHALER INH PRN (09:30)
[2019-01-13] MEDS ORDERED: POLYETHYLENE (MIRALAX) 17 GM PACK PO PRN (09:30)
[2019-01-13] MEDS ORDERED: NITROGLYCERIN SL 0.4 MG/TAB TAB SL PRN (09:30)
[2019-01-13] MEDS ORDERED: NON-FORMULARY MEDICATION (Lactobacillus Combination No.4 [Probiotic] 3,000 mmu cells) PO SCH (09:30)
--- NOTE | 2019-01-13 09:31 | History and Physical Report ---
DATE OF ADMISSION: 01/13/2019 CHIEF COMPLAINT: Displaced dialysis catheter. HISTORY OF PRESENT ILLNESS: This is a 63-year-old female with past medical history significant for chronic respiratory failure on 4 liters oxygen, obesity hypoventilation syndrome, pulmonary hypertension, chronic right heart failure, atrial fibrillation on Coumadin, end-stage renal disease on hemodialysis 4 times a week, diabetes type 2, hypotension on midodrine, hyperlipidemia, hypothyroidism, was recently in the hospital for pneumonia, treated with antibiotics and discharged back home, comes in because of displaced dialysis catheter. The patient went to dialysis today and found that her dialysis catheter was missing, it was found to be on the floor of her house, so she was brought in here for dialysis catheter placement later today and to get dialysis in the hospital. The patient says she has shortness of breath same as before, cough with yellowish phlegm same as before. Headaches are improved. She says she has appointment for her cataracts. Denies any earache, no runny nose, no sore throat, no difficulty swallowing. Appetite is good. No chest pain, no shortness of breath, no nausea, no abdominal pain. Last bowel movement was couple of days ago. Otherwise, her bowel movements are normal. Does not micturate. Lower extremity edema seen and its same as per patient.. Ambulates with a walker. Lives with her . Currently resting comfortably and hemodynamically stable. ALLERGIES: CELEBREX, CODEINE, NEOSPORIN, SULFA ANTIBIOTICS. PAST MEDICAL HISTORY: As mentioned above. PAST SURGICAL HISTORY: Perm-A-Cath exchange, cholecystectomy. MEDICATIONS AT HOME: Recently, the patient was discharged on hydrocodone/acetaminophen 5/325 one tablet p.o. q. 6 hours p.r.n., Zoloft 150 mg p.o. daily, atorvastatin 40 mg p.o. at bedtime, insulin 52 units at bedtime, metoprolol succinate 25 mg p.o. at bedtime, gabapentin 400 mg p.o. b.i.d., levothyroxine 125 mcg p.o. q.a.m., albuterol 2 puffs inhalation q. 6 hours p.r.n., magnesium 400 mg p.o. daily, Protonix 20 mg p.o. daily, albuterol nebulization every 4 hours p.r.n., ascorbic acid 500 mg p.o. daily, vitamin D 1000 units p.o. daily, Ativan 0.5 mg p.o. p.r.n., Coumadin 7.5 mg p.o. 4 times a week, prednisone 5 mg p.o. daily, Coumadin 5 mg 3 times a week, prednisone 5 mg p.o. daily, Colace 100 mg p.o. b.i.d., nystatin topical b.i.d., Anoro Ellipta 62.5/25 mcg 1 inhalation daily, [place] Caps 1 capsule daily, midodrine 5 mg p.o. t.i.d. FAMILY HISTORY: Significant for: Father had brain cancer. Mother had diabetes and heart disorder. SOCIAL HISTORY: , lives with her . Former smoker, quit in 2009. Prior to that, smoked 2 packs a day for 40 years. No alcohol use, no drug use. REVIEW OF SYMPTOMS: As per HPI. Rest of review of symptoms is negative. PHYSICAL EXAMINATION: GENERAL: The patient is of moderate built. The patient is obese, not in acute distress. VITAL SIGNS: Temperature 37, pulse 71, respiratory rate 24, blood pressure 106/65, oxygen 92% on 5 liters. HEENT: No pallor, no icterus. Pupils equal, round, reactive to light. NECK: No JVD, no neck masses. CARDIOVASCULAR: S1, S2 heard, regular rate and rhythm, no murmur, no gallop. RESPIRATORY: Normal AP diameter. No accessory muscle use. No wheezing. Mild bibasilar crackles. ABDOMEN: Soft, bowel sounds present. Nontender. No distention. CENTRAL NERVOUS SYSTEM: Nonfocal. EXTREMITIES: Chronic lower extremity edema seen with chronic skin changes. LABORATORY DATA: WBC 11.5, hemoglobin 11.1, hematocrit 34.4, platelets 141. PT 17.8, INR 1.8. Chemistry is pending. Chest x-ray, mild congestion. ASSESSMENT AND PLAN: This is a 63-year-old female with end-stage renal disease on hemodialysis, went to dialysis today and found to have a dialysis catheter, PermCath missing. She was sent to hospital for PermCath replacement. 2. End-stage renal disease, on hemodialysis, PermCath, due for dialysis today but it was canceled because her PermCath was missing. It was lying on the floor at home. The patient does not know how it fell down. We will observe in med surg tele, n.p.o. except meds. Consult vascular surgery for PermCath placement. Consult nephrology for dialysis. Close monitor. 3. Chronic respiratory failure, on 4-5 liters of oxygen. 4. Obesity hypoventilation syndrome, pulmonary hypertension, chronic obstructive pulmonary disease, currently seems stable. Continue her home inhalers and oxygen. 5. Chronic right heart failure, on dialysis. 6. Atrial fibrillation, on Toprol-XL and Coumadin. INR is 1.8. 7. Diabetes, on Lantus, insulin sliding scale for the blood sugars. 8. Hypertension, midodrine. 9. Hyperlipidemia, on statin. 10. Hypothyroidism, on Synthroid. 11. Neuropathy, on gabapentin. 12. Decubitus ulcer in the buttock, wound care. 13 DVT prophylaxis, INR is 1.8. 14. Disposition: Observation in med/surg tele. Level 1 full code. MTDD
[2019-01-13] MEDS: GABAPENTIN 400 MG CAP PO SCH ×2 (10:47→21:45)
[2019-01-13] MEDS: MAGNESIUM OXIDE 400 MG TAB PO SCH (10:47)
[2019-01-13] MEDS: VITAMIN B COMPLEX TAB PO SCH (10:47)
[2019-01-13] MEDS: MIDODRINE HCL 2.5 MG TAB PO SCH ×3 (10:47→21:45)
[2019-01-13] MEDS: PANTOprazole 40 MG TAB PO SCH (10:47)
[2019-01-13] MEDS: NYSTATIN POWDER 15GM BTL EXT SCH ×2 (10:47→21:46)
[2019-01-13] MEDS: SERTRALINE HCL 50 MG TABLET PO SCH (10:47)
[2019-01-13] MEDS: predniSONE 5 MG TAB PO SCH (10:47)
[2019-01-13] MEDS: CHOLECALCIFEROL 1,000 UNITS TAB PO SCH (10:47)
[2019-01-13] MEDS: DOCUSATE SODIUM 100 MG CAP PO SCH ×2 (10:47→21:46)
[2019-01-13] MEDS: ASCORBIC ACID 500 MG TAB PO SCH (10:47)
[2019-01-13] MEDS: LEVOTHYROXINE SODIUM 125 MCG TABLET PO SCH (10:47)
[2019-01-13] MEDS: ANORO ELLIPTA~ORDER AWAITING ACTION SCH ×3 (10:48→23:50)
--- NOTE | 2019-01-13 11:19 | Consultation ---
Date of Consultation January 13, 2019 Assessment & Plan (1) Hemodialysis catheter malfunction: Pt without current access for HD d/t displacement of permcath. Planning on placement of new permcath later today. Pt agreeable. Patient was seen, examined, and chart reviewed. Agree with exam and treatment plan of the Vascular PA. Patient is for PermCath placement today. I have discussed the risks options and benefits of the procedure with the patient. The patient understands the risks options and benefits and agrees to the procedure. Present on Admission?: Yes History of Present Illness Reason for Consultation: ESRD, displaced permcath Attending Physician: Janice Mello MD History of Present Illness 63 yo f with multiple medical problems, including ESRD on HD, HTN, pulmonary htn, CHF, COPD on oxygen, a fib on coumadin, admitted d/t having no access for HD after her permcath was found on the floor of her home. Upon arriving at outpt HD unit today, her permcath was discovered to not be in place. Pt states she was unaware of it falling out, but thinks that someone removed the anchoring sutures at HD last week. Admits chronic NAVARRO, but states no worse than usual for her. Denies ARNOLD, fever, chills, chest pain, abd pain, N/V, rest pain, claudication, other complaints. Ambulates with walker, but only short distances d/t NAVARRO. Allergies Allergy/AdvReac Type Severity Reaction Status Date / Time bacitracin Allergy Intermediate RASH,ITCH Verified 01/13/19 06:23 celecoxib Allergy Intermediate RASH TO Verified 01/13/19 06:23 SULFA DRUGS neomycin Allergy Intermediate RASH,ITCH Verified 01/13/19 06:23 polymyxin B Allergy Intermediate RASH,ITCH Verified 01/13/19 06:23 Sulfa (Sulfonamide Allergy Intermediate RASH,HAS Verified 01/13/19 06:23 Antibiotics) TAKEN GLIPIZIDE W/O REACTION tigecycline AdvReac Severe MILD Verified 01/13/19 06:23 PANCREATITIS codeine AdvReac Intermediate GI UPSET Verified 01/13/19 06:23 Home Medications Home Medications Medication Instructions Recorded Confirmed Type albuterol sulfate 2.5 mg/3 mL 1.25 mg INH Q4H PRN 06/01/18 01/13/19 History (0.083 %) solution for nebulization albuterol sulfate HFA 90 2 puffs INH Q6H PRN 06/01/18 01/13/19 History mcg/actuation aerosol inhaler ascorbic acid (vitamin C) 500 mg 500 mg PO DAILY cap 06/01/18 01/13/19 History capsule atorvastatin 40 mg tablet 40 mg PO HS 06/01/18 01/13/19 History cholecalciferol (vitamin D3) 1,000 1,000 units PO DAILY 06/01/18 01/13/19 History unit capsule gabapentin 400 mg capsule 400 mg PO BID 06/01/18 01/13/19 History hydrocodone 5 mg-acetaminophen 325 1 tab PO Q6H PRN 06/01/18 01/13/19 History mg tablet insulin glargine (U-100) 100 30 units SQ HS 06/01/18 01/13/19 History unit/mL (3 mL) subcutaneous pen levothyroxine 125 mcg tablet 125 mcg PO QAM 06/01/18 01/13/19 History magnesium oxide 400 mg (241.3 mg 400 mg PO DAILY tab 06/01/18 01/13/19 History magnesium) tablet metoprolol succinate ER 25 mg 25 mg PO HS 06/01/18 01/13/19 History capsule sprinkle, ext. release 24 hr pantoprazole 20 mg tablet,delayed 20 mg PO QAM 06/01/18 01/13/19 History release sertraline 100 mg tablet 150 mg PO DAILY tab 06/01/18 01/13/19 History Anoro Ellipta 1 inh INHALATION DAILY 06/22/18 01/13/19 History docusate sodium [Colace] 100 mg PO BID 06/22/18 01/13/19 History nystatin 1 applic TOPICAL BID 06/22/18 01/13/19 History prednisone 5 mg PO DAILY 06/22/18 01/13/19 History lorazepam 0.5 mg PO UD PRN 07/15/18 01/13/19 History warfarin 5 mg PO UD 08/12/18 01/13/19 History B complex-vitamin C-folic acid 1 tab PO DAILY 01/11/19 01/13/19 History [Renal Vitamin] lactobacillus combination no.4 3,000 mmu cells PO DAILY 01/11/19 01/13/19 History [Probiotic] midodrine 5 mg PO TID 01/11/19 01/13/19 History Patient History Medical History Chronic knee pain (Chronic) COPD exacerbation (Resolved) Sleep apnea (Chronic) Chronic anemia (Chronic) Pneumonia (Acute) Generalized weakness (Resolved) Iron (Fe) deficiency anemia (Chronic) Morbid obesity (Chronic) Obesity hypoventilation syndrome (Chronic) Pressure ulcer Atrial fibrillation (Chronic) Pulmonary HTN (Chronic) COPD (chronic obstructive pulmonary disease) (Chronic) DM type 2 (diabetes mellitus, type 2) (Chronic) HTN (hypertension) (Chronic) RHF (right heart failure) (Chronic) Chronic respiratory failure with hypoxia (Chronic) ESRD (end stage renal disease) on dialysis (Chronic) Hypothyroidism (Chronic) Depression (Chronic) HLD (hyperlipidemia) (Chronic) Neuropathy (Chronic) Diabetic gastroparesis (Chronic) H/O deep venous thrombosis (Resolved) ESRD (end stage renal disease) on dialysis (Inactive) Surgical History History of tracheostomy History of hernia repair (Resolved) Status post laparoscopic cholecystectomy (Resolved) S/P debridement (Chronic) "08/30/2016- debridement bilateral lower extremity and buttock wounds" Hx of cholecystectomy (Resolved) Family History Other CKD (chronic kidney disease) Coronary heart disease Social History Preferred Language: Malay Communication Ability: Effective Life Support Technician Required: No Beliefs That Will Affect Care: None marital status: Current Living Situation: Spouse Other Information That Helps Us Care for You: No Feels Safe at Home: Yes Safety Concerns: Feels Safe At This Time Smoking Status: Former smoker Tobacco Type: cigarettes Cigarettes Per Day: 40 Do You Dip or Chew Tobacco: No Second Hand Exposure: No Hx Alcohol Use: No Hx Substance Use: No Review of Systems Review of Systems: All systems reviewed & are unremarkable except as noted in HPI & below + for chronic NAVARRO, BLE edema, and missing HD catheter. Physical Exam Constitutional: WD/WN, vitals as above well developed, well nourished, + ill appearing (chronically), + morbidly obese, well groomed, + disheveled, cooperative and comfortable; not in distress and not combative Eyes: PERRL, conjunctivae normal, anicteric sclerae EOM intact bilaterally ENMT: external ear and nose normal, oropharynx normal Nose: no nasal discharge Throat: no posterior oropharynx abnormality Neck: trachea midline, no thyromegaly no tracheal deviation, no neck crepitus and neck nontender Respiratory: able to speak in complete sentences; does not use accessory muscles and no cough Auscultation: + diminished lung sounds, + crackles (coarse sounds) and + wheezes (occasional); no rhonchi Cardiovascular: Rate/Rhythm: + irregularly irregular Heart Sounds: no gallop and no murmur Vessels: normal peripheral pulses, femoral pulses present, posterior tibial pulses present (nonpalpable), dorsalis pedis pulses present (nonpalpable), brachial pulses present and radial pulses present; no carotid bruit and no femoral bruit Extremities: normal capillary refill and + edema (BLE); no vascular access device (R chest site noted without catheter in place. No bleeding or erythema) and no AV fistula Gastrointestinal (Abdomen): Inspection/Auscultation: abdomen normal to inspection, + abdomen distended (d/t body habitus) and normal bowel sounds Percussion/Palpation: abdomen soft; abdomen nontender, no guarding, abdomen not rigid and no abdominal mass Musculoskeletal: Head/Neck/Chest: normocephalic, head atraumatic and neck supple; no chest tenderness Extremities: strength 5/5 throughout; no chronic stasis changes, no clubbing and no foot abnormality Skin: no rashes, warm and dry normal turgor and + dry skin; no rashes, no lesions, no ulcers, no erythema and no mottling Neurologic: moves all extremities and awake; no focal motor deficits and not confused Speech / Cognition: no expressive aphasia and no receptive aphasia Motor/Sensory: no tremor and no sensory deficit Cranial Nerves: EOM intact bilaterally and normal facial strength Psychiatric: Orientation: alert, oriented x 3 and cooperative Apperance: appropriately dressed and appropriately groomed; + did not appear stated age (older than stated age) Affect: euthymic affect Thought Process: goal directed thought process, linear/logical thought process and clear/coherent thought process Cognition: recent memory grossly intact, remote memory grossly intact, attention grossly intact and language grossly intact Estimated Intelligence: average estimated intelligence Lymphatic: no lymphedema Results & Data Vital Signs (Past 12 Hours) Vital Signs Temp Pulse Pulse Resp BP BP Pulse Ox 01/13/19 09:30 70 01/13/19 06:52 71 24 90/48 L 95 01/13/19 05:51 37 C 71 24 106/65 92
[2019-01-13] MEDS ORDERED: CEFAZOLIN 2000MG 2,000 MG/15 ML SYR IV SCH (11:20)
--- NOTE | 2019-01-13 13:24 | Pre Anesthesia Assessment ---
Date of Service January 13, 2019 Pre Sedation Assessment Vital Signs Temp Pulse Pulse Resp BP BP Pulse Ox 01/13/19 12:00 36.4 C L 93 H 18 72/42 L 91 01/13/19 09:30 70 01/13/19 06:52 71 24 90/48 L 95 01/13/19 05:51 37 C 71 24 106/65 92 Cardiovascular RRR, no murmur, no edema Respiratory + respiratory effort normal; no respiratory distress + crackles Pre-Sedation Airway Assessment Smoking Status: Former smoker Hx Sleep Apnea: Yes Short, Thick Neck: No Thyromental Distance: > or= 3.5 Finger Breadths Oral Cavity: + WNL Mallampati Class: II ASA: ASA3 NPO Status Date of Last Intake of Fluids: 01/12/19 Time of Last Intake of Fluids: 23:00 Date of Last Intake of Solid Food: 01/12/19 Time of Last Intake of Solid Foods: 23:00 Procedure Planning Contraindications for Sedation: none Current Medications Reviewed: No Notes The planned sedation has been discussed with the patient. Informed Consent was obtained. I have identified the patient, determined the appropriateness of sedation and have assessed the patient immediately prior to the procedure. All medicine(s) and interventions are by my order.
[2019-01-13] MEDS ORDERED: fentaNYL citrate 100 MCG/2 ML VIAL ONE (13:38)
[2019-01-13] MEDS ORDERED: MIDAZOLAM HCL 1 MG/ML 2ML VIAL ONE (13:39)
--- NOTE | 2019-01-13 14:31 | Operative Report ---
Post Operative Report Pre & Post Diagnosis Operation Date: 01/13/19 13:25 Pre-Op Diagnosis: End Stage Renal Disease Post-Op Diagnosis: End Stage Renal Disease Procedure Operation Date: 01/13/19 13:25 Actual Procedures p Insertion of Perm Catheter, Left Internal Jugular Approach, Ultrasound Localization of Left Internal Jugular Vein, Fluoroscopy for Positioning; Moderate Sedation From 1403 to 1448 (Left) - Yves Falk MD Surgeon Yves Falk MD Sales Representative Graphic Art None Estimated Blood Loss 10 Findings Consistent with Post-Op Diagnosis Specimens None Anesthesia Type RN Sedation Complications none Disposition Accompanied Patient To Recovery: No Disposition: Recovery Room Indications This is a 63-year-old female who had a PermCath in place. She presented to dialysis unit today without her PermCath. It had fallen out at home. She is here for replacement of a new PermCath. I have discussed the risks options and benefits of the procedure with the patient. The patient understands the risks options and benefits and agrees to the procedure. Description of Procedure Patient was taken to the angio suite and placed in the supine position. Patient was identified and a timeout was performed. The left side of the neck and chest wall were prepped and draped in a sterile manner. Local anesthesia was then administered to the appropriate areas of the neck and chest wall. Ultrasound was then used to locate the left internal jugular vein. The vein compressed easily, had no filing defects, and was patent. The vein was then punctured under direct ultrasound imaging. A guidewire was then passed centrally under fluoroscopic imaging. A stab wound was then made in the anterior chest wall and a 23 cm permcath was passed from the stab wound on the chest wall to the p uncture site on the neck. The puncture site was then dilated till the 14Fr peel away sheath was inserted. The permcath was then inserted through the sheath to a central position in the distal superior vena cava. The peel away sheath was then removed. The catheter was then sutured in place using nylon sutures. The puncture was then closed using a 4-0 Vicryl subcuticular suture. Dermabond was used for a dressing on the puncture site. Both ports aspirated and flushed easily and were then packed with heparin. A sterile dressing was applied to the catheter. The patient left the operation room in satisfactory condition and tolerated the procedure well. All needle and sponge counts were correct at the end of the procedure. I attest to the content of the Intraoperative Record and any orders documented therein. Any exceptions are noted below.
[2019-01-13] MEDS: HEPARIN SOD (PORCINE) 5,000 UNITS/ML VIAL ONE ×2 (14:32→14:36)
[2019-01-13] MEDS: LIDOCAINE HCL 1% 20 ML VIAL ONE ×2 (14:33→14:37)
--- NOTE | 2019-01-13 14:51 | Post Anesthesia Assessment ---
Date of Service January 13, 2019 Post Sedation Assessment Vital Signs Temp Pulse Pulse Pulse Resp BP BP 01/13/19 14:48 74 20 90/68 L 01/13/19 14:43 72 20 104/62 01/13/19 14:38 72 22 88/52 L 01/13/19 14:33 71 19 83/53 L 01/13/19 14:28 69 20 87/62 L 01/13/19 14:23 67 19 82/50 L 01/13/19 14:18 67 19 88/36 L 01/13/19 14:13 70 17 74/48 L 01/13/19 14:08 70 19 89/57 L 01/13/19 14:03 70 19 107/64 01/13/19 13:48 73 19 102/59 L 01/13/19 13:25 36.7 C 93 H 18 147/53 H 01/13/19 12:00 36.4 C L 93 H 18 72/42 L 01/13/19 09:30 70 01/13/19 06:52 71 24 90/48 L 01/13/19 05:51 37 C 71 24 106/65 Pulse Ox 01/13/19 14:48 95 01/13/19 14:43 94 01/13/19 14:38 96 01/13/19 14:33 94 01/13/19 14:28 97 01/13/19 14:23 98 01/13/19 14:18 98 01/13/19 14:13 96 01/13/19 14:08 97 01/13/19 14:03 99 01/13/19 13:48 96 01/13/19 13:25 91 01/13/19 12:00 91 01/13/19 09:30 01/13/19 06:52 95 01/13/19 05:51 92 Recovery Score Activity: Moves 4 extremities Respiration: Deep Breath/Cough Circulation: +/-20% PreAnes Value Consciousness: Fully Awake Oxygen Saturation: O2 needed for >90% Post Anesthesia Score: 9 Discharge Sedation Level of Care: Fast Track Phase II Post Sedation Plan On clinical assessment, the patient appears to have tolerated the sedation without complications. Patient is recovering as anticipated. Patient will continue to be monitored by nursing and may be discharged when s edation discharge criteria are met per below protocol. Upon Completions of procedure and additional 15 minutes continue every 5 minute vital signs and the P.A.R. score; then discharge to a Phase I or Fast Track to Phase II per the following guidelines: * Discharge Patient to appropriate Phase II area if PAR is 8 or greater or return to pre- procedure baseline. The post - procedure orders will be as directed. * If PAR score is less than 8 or not return to pre-procedure baseline then patient will follow Phase I monitoring till PAR is reached for Phase II. The Phase I may be done in procedure room or may call to secure a Phase I area. * If naloxone or flumazenil are used for reversal, hold in Phase I for continued monitoring from when last reversal dose was given for a minimum of 60 minutes or longer pending the nurse and/or physician discretion of patient condition before discharge to Phase II. Please call the Sedation Physician to re-evaluate and complete post-note for discharge to Phase II area. Do NOT discharge from procedure sedation or Phase 1 until post- sedation evaluation note is complete by procedure /sedation MD Sedation Discharge Instructions to be given to the patient at discharge to home.
[2019-01-13] MEDS ORDERED: NURSING DECISION MEDICATION ONE (15:35)
[2019-01-13] MEDS ORDERED: MIDODRINE HCL 10 MG TAB PO STA (15:38)
[2019-01-13] MEDS: WARFARIN SOD 5 MG TAB PO SCH (16:01)
--- NOTE | 2019-01-13 19:37 | Nephrology Consultation ---
Date of Consultation January 13, 2019 Assessment & Plan (1) ESRD (end stage renal disease) on dialysis: Patient on HD MWFS at [facility]. Last full HD was Friday. Patient had partial treatment on Friday due to bleeding. She got new TDC this afternoon. Will dialyse her for 4.5hrs on a 2k bath target UF 2.5 litres (2) Hypotension: Will give midodrine 10mg pre HD. Hold BP lowering meds till after HD (3) Acute and chronic respiratory failure with hypoxia: Due to CHF and renal failure. Will attempt 2.5 litre UF but hypotension is limiting. Restrict fluid intake to 1200mls daily (4) Hemodialysis catheter malfunction: Patient got new catheter today. Will discuss with vascular if patient is candidate for hero AVG History of Present Illness Reason for Consultation: ESRD for dialysis support Requesting Physician: Janice Mello MD Attending Physician: Janice Mello MD History of Present Illness This is a 63yoF with ESRD on HD MWFS schedule who was admitted on 01/13 TDC insertion after her old CVC fell out last night. She went to HD outpt only to realize she had no catheter. Her last full HD was on friday. On Friday, she had only 2hrs due to bleeding from CVC site. She had similar problems on Friday and HD was cancelled. Other PMH includes COPD, obesity hypoventilation syndrome/pulmonary HTN, R HF, chronic afib on coumadin, DM2, chronic sacral/buttock wound. She chronic intradialytic hypotension and needs midodrine for support. This morning when i saw her she complained of SOB which is chronic. She feels tired all the time. No vomiting or diarrhoea Allergies Allergy/AdvReac Type Severity Reaction Status Date / Time bacitracin Allergy Intermediate RASH,ITCH Verified 01/13/19 06:23 celecoxib Allergy Intermediate RASH TO Verified 01/13/19 06:23 SULFA DRUGS neomycin Allergy Intermediate RASH,ITCH Verified 01/13/19 06:23 polymyxin B Allergy Intermediate RASH,ITCH Verified 01/13/19 06:23 Sulfa (Sulfonamide Allergy Intermediate RASH,HAS Verified 01/13/19 06:23 Antibiotics) TAKEN GLIPIZIDE W/O REACTION tigecycline AdvReac Severe MILD Verified 01/13/19 06:23 PANCREATITIS codeine AdvReac Intermediate GI UPSET Verified 01/13/19 06:23 Home Medications Home Medications Medication Instructions Recorded Confirmed Type albuterol sulfate 2.5 mg/3 mL 1.25 mg INH Q4H PRN 06/01/18 01/13/19 History (0.083 %) solution for nebulization albuterol sulfate HFA 90 2 puffs INH Q6H PRN 06/01/18 01/13/19 History mcg/actuation aerosol inhaler ascorbic acid (vitamin C) 500 mg 500 mg PO DAILY cap 06/01/18 01/13/19 History capsule atorvastatin 40 mg tablet 40 mg PO HS 06/01/18 01/13/19 History cholecalciferol (vitamin D3) 1,000 1,000 units PO DAILY 06/01/18 01/13/19 History unit capsule gabapentin 400 mg capsule 400 mg PO BID 06/01/18 01/13/19 History hydrocodone 5 mg-acetaminophen 325 1 tab PO Q6H PRN 06/01/18 01/13/19 History mg tablet insulin glargine (U-100) 100 30 units SQ HS 06/01/18 01/13/19 History unit/mL (3 mL) subcutaneous pen levothyroxine 125 mcg tablet 125 mcg PO QAM 06/01/18 01/13/19 History magnesium oxide 400 mg (241.3 mg 400 mg PO DAILY tab 06/01/18 01/13/19 History magnesium) tablet metoprolol succinate ER 25 mg 25 mg PO HS 06/01/18 01/13/19 History capsule sprinkle, ext. release 24 hr pantoprazole 20 mg tablet,delayed 20 mg PO QAM 06/01/18 01/13/19 History release sertraline 100 mg tablet 150 mg PO DAILY tab 06/01/18 01/13/19 History Anoro Ellipta 1 inh INHALATION DAILY 06/22/18 01/13/19 History docusate sodium [Colace] 100 mg PO BID 06/22/18 01/13/19 History nystatin 1 applic TOPICAL BID 06/22/18 01/13/19 History prednisone 5 mg PO DAILY 06/22/18 01/13/19 History lorazepam 0.5 mg PO UD PRN 07/15/18 01/13/19 History warfarin 5 mg PO UD 08/12/18 01/13/19 History B complex-vitamin C-folic acid 1 tab PO DAILY 01/11/19 01/13/19 History [Renal Vitamin] lactobacillus combination no.4 3,000 mmu cells PO DAILY 01/11/19 01/13/19 History [Probiotic] midodrine 5 mg PO TID 01/11/19 01/13/19 History Patient History Medical History Chronic knee pain (Chronic) COPD exacerbation (Resolved) Sleep apnea (Chronic) Chronic anemia (Chronic) Pneumonia (Acute) Generalized weakness (Resolved) Iron (Fe) deficiency anemia (Chronic) Morbid obesity (Chronic) Obesity hypoventilation syndrome (Chronic) Pressure ulcer Atrial fibrillation (Chronic) Pulmonary HTN (Chronic) COPD (chronic obstructive pulmonary disease) (Chronic) DM type 2 (diabetes mellitus, type 2) (Chronic) HTN (hypertension) (Chronic) RHF (right heart failure) (Chronic) Chronic respiratory failure with hypoxia (Chronic) ESRD (end stage renal disease) on dialysis (Chronic) Hypothyroidism (Chronic) Depression (Chronic) HLD (hyperlipidemia) (Chronic) Neuropathy (Chronic) Diabetic gastroparesis (Chronic) H/O deep venous thrombosis (Resolved) ESRD (end stage renal disease) on dialysis (Inactive) Surgical History History of tracheostomy History of hernia repair (Resolved) Status post laparoscopic cholecystectomy (Resolved) S/P debridement (Chronic) "08/30/2016- debridement bilateral lower extremity and buttock wounds" Hx of cholecystectomy (Resolved) Family History Other CKD (chronic kidney disease) Coronary heart disease Social History Preferred Language: [place] Communication Ability: Effective Lockstitch Binder Required: No Beliefs That Will Affect Care: None marital status: Current Living Situation: Spouse Other Information That Helps Us Care for You: No Feels Safe at Home: Yes Safety Concerns: Feels Safe At This Time Smoking Status: Former smoker Tobacco Type: cigarettes Cigarettes Per Day: 40 Do You Dip or Chew Tobacco: No Second Hand Exposure: No Hx Alcohol Use: No Hx Substance Use: No Review of Systems Review of Systems: All systems reviewed & are unremarkable except as noted in HPI & below Physical Exam Physical Exam: General exam: Appears comfortable, no acute distress HEENT: Pupils are equal and reactive to light Neck: No JVD, neck is supple trachea is midline Respiratory system: Clear breath sounds bilaterally. Gastrointestinal: Abdomen is soft, non distended, non tender, bowel sounds are present CVS: Regular rate and rhythm. No murmurs, rubs or gallops Musculoskeletal: No joint or muscle tenderness Extremities: Non tender, trace edema, peripheral pulses are present Neuro: Oriented, no tremors, no focal neurological deficits Skin: No rashes Results & Data Vital Signs (Past 12 Hours) Vital Signs Temp Pulse Pulse Pulse Pulse Resp BP 01/13/19 19:20 56 L 90/49 L 01/13/19 19:00 64 75/46 L 01/13/19 18:40 55 L 97/45 L 01/13/19 18:20 58 L 95/43 L 01/13/19 18:00 52 L 87/39 L 01/13/19 17:40 52 L 91/40 L 01/13/19 17:20 76 84/42 L 01/13/19 17:00 66 85/49 L 01/13/19 16:40 58 L 87/37 L 01/13/19 16:20 36.6 C 71 01/13/19 14:48 74 20 01/13/19 14:43 72 20 01/13/19 14:38 72 22 01/13/19 14:33 71 19 01/13/19 14:28 69 20 01/13/19 14:23 67 19 01/13/19 14:18 67 19 01/13/19 14:13 70 17 01/13/19 14:08 70 19 01/13/19 14:03 70 19 01/13/19 13:48 73 19 01/13/19 13:25 36.7 C 93 H 18 01/13/19 12:00 36.4 C L 93 H 18 01/13/19 09:30 70 BP Pulse Ox 01/13/19 19:20 01/13/19 19:00 01/13/19 18:40 01/13/19 18:20 01/13/19 18:00 01/13/19 17:40 01/13/19 17:20 01/13/19 17:00 01/13/19 16:40 01/13/19 16:20 01/13/19 14:48 90/68 L 95 01/13/19 14:43 104/62 94 01/13/19 14:38 88/52 L 96 01/13/19 14:33 83/53 L 94 01/13/19 14:28 87/62 L 97 01/13/19 14:23 82/50 L 98 01/13/19 14:18 88/36 L 98 01/13/19 14:13 74/48 L 96 01/13/19 14:08 89/57 L 97 01/13/19 14:03 107/64 99 01/13/19 13:48 102/59 L 96 01/13/19 13:25 147/53 H 91 01/13/19 12:00 72/42 L 91 01/13/19 09:30 Laboratory Results Laboratory Results - last 24 hr 01/13/19 01/13/19 01/13/19 06:13 06:13 06:13 WBC 11.58 H RBC 3.74 L Hgb 11.1 L Hct 34.4 L MCV 92.0 MCH 29.7 MCHC 32.3 RDW Std Deviation 63.7 H RDW Coeff of Yogi 19.4 H Plt Count 141 MPV 9.9 Immature Gran % (Auto) 1.4 Neut % (Auto) 76.3 Lymph % (Auto) 11.4 [place] % (Auto) 7.9 Eos % (Auto) 2.7 Baso % (Auto) 0.3 Immature Gran # (Auto) 0.16 H Neut # (Auto) 8.83 H Lymph # (Auto) 1.32 [place] # (Auto) 0.92 H Eos # (Auto) 0.31 Baso # (Auto) 0.04 Absolute Nucleated RBC 0.03 H Nucleated RBC % (auto) 0.3 PT 17.9 H INR 1.8 H Sodium 135 L Potassium 4.8 Chloride 104 Carbon Dioxide 22 Anion Gap 9.0 BUN 59 H D Creatinine 7.18 H* D Est Cr Clr Drug Dosing 9.0 Est GFR ( Amer) 6.4 Est GFR (Non-Af Amer) 5.5 BUN/Creatinine Ratio 8.4 L Glucose 110 H POC Glucose Calcium 8.2 L 01/13/19 01/13/19 01/13/19 07:46 11:19 15:24 WBC RBC Hgb Hct MCV MCH MCHC RDW Std Deviation RDW Coeff of Yogi Plt Count MPV Immature Gran % (Auto) Neut % (Auto) Lymph % (Auto) [place] % (Auto) Eos % (Auto) Baso % (Auto) Immature Gran # (Auto) Neut # (Auto) Lymph # (Auto) [place] # (Auto) Eos # (Auto) Baso # (Auto) Absolute Nucleated RBC Nucleated RBC % (auto) PT INR Sodium Potassium Chloride Carbon Dioxide Anion Gap BUN Creatinine Est Cr Clr Drug Dosing Est GFR ( Amer) Est GFR (Non-Af Amer) BUN/Creatinine Ratio Glucose POC Glucose 131 H 97 82 Calcium (1) Hypotension Hypotension type: unspecified hypotension type Qualified Code(s): I95.9 - Hypotension, unspecified
[2019-01-13] MEDS: MICONAZOLE NITRATE POWDER 43 GM EXT PRN (21:44)
[2019-01-13] MEDS: METOPROLOL SUCC 25MG EXT REL TAB PO SCH (21:44)
[2019-01-13] MEDS: HYDROCODONE/ACETAMOPHEN 5/325MG TAB PO PRN (21:44)
[2019-01-13] MEDS: INSULIN GLARGINE SOLOSTAR 100 UNITS/ML 3 ML PEN SQ SCH (21:46)
[2019-01-13] MEDS: ATORVASTATIN 40 MG TAB PO SCH (21:46)
[2019-01-14 05:42] LABS: Basophils # (auto) 0.01 K/uL (0-0.2); Basophils % (auto) 0.1 %; Eosinophils # (auto) 0.11 K/uL (0-0.5); Eosinophils % (auto) 1.1 %; Hematocrit (blood only) 32.7 % (37-47); Hemoglobin 10.5 g/dL (12.0-16.0); Immature Granulocytes # (auto) 0.14 K/uL (0.00-0.02); Immature Granulocytes % (auto) 1.4 %; Lymphocytes # (auto) 1.02 K/uL (1.2-3.4); Lymphocytes % (auto) 9.9 %; Mean Corpuscular Hgb Conc 32.1 g/dL (32-36); Mean Corpuscular Volume 90.8 fL (80-100); Mean Platelet Volume 9.1 fL (7.4-10.4); Monocytes # (auto) 0.88 K/uL (0.11-0.59); Monocytes % (auto) 8.6 %; Neutrophils # (auto) 8.11 K/uL (1.4-6.5); Neutrophils % (auto) 78.9 %; Platelet Count 143 K/uL (130-400); RDW Coefficient of Variation 19.5 % (11.5-14.5); RDW Standard Deviation 63.7 fL (36.4-46.3); White Blood Count 10.27 K/uL (4.8-10.8)
[2019-01-14 05:53] LABS: INR 2.7 (0.9-1.1); Prothrombin Time 25.7 Seconds (9.0-12.0)
[2019-01-14] MEDS: LEVOTHYROXINE SODIUM 125 MCG TABLET PO SCH (06:01)
[2019-01-14 06:29] LABS: BUN Creatinine Ratio 5.3 (10-20); Calcium 8.1 mg/dl (8.5-10.1); Creatinine Clr Calc Pharmacy 19.7 ml/min; Est GFR (African American) 16.7; Est GFR (Non-African American) 14.4; Potassium 3.7 mmol/L (3.5-5.1)
[2019-01-14] MEDS: CARBOHYDRATES FOR HYPOGLYCEMIA PO PRN ×2 (06:43→06:58)
[2019-01-14] MEDS ORDERED: GLUCOSE 40% GEL 15 GM TUBE PO PRN (06:45)
[2019-01-14] MEDS ORDERED: GLUCAGON FOR INJ 1 MG VIAL SQ PRN (06:45)
[2019-01-14] MEDS ORDERED: DEXTROSE 50% 50 ML SYRINGE IV PRN (06:45)
[2019-01-14] MEDS ORDERED: GLUCOSE 10 TABS/TUBE PO PRN (06:45)
[2019-01-14] MEDS: ANORO ELLIPTA~ORDER AWAITING ACTION SCH ×3 (07:12→23:32)
[2019-01-14] MEDS: MICONAZOLE NITRATE POWDER 43 GM EXT PRN (07:57)
[2019-01-14] MEDS: NYSTATIN POWDER 15GM BTL EXT SCH ×2 (07:58→21:01)
[2019-01-14] MEDS: DOCUSATE SODIUM 100 MG CAP PO SCH ×2 (07:59→21:01)
[2019-01-14] MEDS: VITAMIN B COMPLEX TAB PO SCH (07:59)
[2019-01-14] MEDS: predniSONE 5 MG TAB PO SCH (07:59)
[2019-01-14] MEDS: MIDODRINE HCL 2.5 MG TAB PO SCH ×3 (07:59→16:13)
[2019-01-14] MEDS: PANTOprazole 40 MG TAB PO SCH (07:59)
[2019-01-14] MEDS: SERTRALINE HCL 50 MG TABLET PO SCH (08:00)
[2019-01-14] MEDS: ASCORBIC ACID 500 MG TAB PO SCH (08:00)
[2019-01-14] MEDS: GABAPENTIN 400 MG CAP PO SCH ×2 (08:00→21:02)
[2019-01-14] MEDS: MAGNESIUM OXIDE 400 MG TAB PO SCH (08:00)
[2019-01-14] MEDS: CHOLECALCIFEROL 1,000 UNITS TAB PO SCH (08:00)
--- NOTE | 2019-01-14 10:13 | Nephrology Progress Note ---
Date of Service January 14, 2019 Assessment & Plan (1) ESRD (end stage renal disease) on dialysis: Patient on HD MWFS at [facility]. Last full outpatient HD was Friday. Patient had partial treatment on Friday due to bleeding. She got new TDC 01/13. She tolerated dialysis well yesterday for 4.5hrs on a 2k bath and net UF 2.5 litres. Electrolytes are stable with no signs of volume overload. No need for dialysis today. Next dialysis will be on Friday. From renal standpoint patient can be discharged to continue dialysis outpatient. (2) Hypotension: Will continue midodrine 10mg pre HD. Hold BP lowering meds till after HD (3) Acute and chronic respiratory failure with hypoxia: Due to CHF and renal failure. We will continue aggressive fluid management with dialysis blood pressure permitting. Restrict fluid intake to 1200mls daily (4) Hemodialysis catheter malfunction: Patient got new catheter. Will discuss with vascular if patient is candidate for hero AVG Subjective Patient seen in follow-up for ESRD on dialysis. She is status post replacement of tunneled dialysis catheter yesterday. She had dialysis yesterday which she tolerated well with net UF of 2.5 L. Her breathing is at baseline. She is denying leg swelling. She reports pain at the site of catheter insertion. She is eager to be discharged home Review of Systems Review of Systems: All systems reviewed & are unremarkable except as noted in HPI & below Physical Exam Physical Exam: General exam: Appears comfortable, no acute distress HEENT: Pupils are equal and reactive to light Neck: No JVD, neck is supple trachea is midline Respiratory system: Clear breath sounds bilaterally. Gastrointestinal: Abdomen is soft, non distended, non tender, bowel sounds are present CVS: Regular rate and rhythm. No murmurs, rubs or gallops Musculoskeletal: No joint or muscle tenderness Extremities: Non tender, no edema, peripheral pulses are present Neuro: Oriented, no tremors, no focal neurological deficits Skin: No rashes Access: Left IJ catheter Results & Data Vital Signs (Past 12 Hours) Vital Signs Temp Pulse Pulse Pulse Resp BP Pulse Ox 01/14/19 07:00 36.5 C 87 18 93/58 L 94 01/14/19 03:23 36.8 C 68 18 95 01/14/19 02:46 93/52 L 01/14/19 00:49 92 01/13/19 23:55 86 01/13/19 23:23 36.8 C 74 18 91/42 L 89 L Laboratory Results Laboratory Results - last 24 hr 01/13/19 01/13/19 01/14/19 11:19 15:24 05:15 WBC 10.27 RBC 3.60 L Hgb 10.5 L Hct 32.7 L MCV 90.8 MCH 29.2 MCHC 32.1 RDW Std Deviation 63.7 H RDW Coeff of Yogi 19.5 H Plt Count 143 MPV 9.1 Immature Gran % (Auto) 1.4 Neut % (Auto) 78.9 Lymph % (Auto) 9.9 [place] % (Auto) 8.6 Eos % (Auto) 1.1 Baso % (Auto) 0.1 Immature Gran # (Auto) 0.14 H Neut # (Auto) 8.11 H Lymph # (Auto) 1.02 L [place] # (Auto) 0.88 H Eos # (Auto) 0.11 Baso # (Auto) 0.01 PT INR Sodium Potassium Chloride Carbon Dioxide Anion Gap BUN Creatinine Est Cr Clr Drug Dosing Est GFR ( Amer) Est GFR (Non-Af Amer) BUN/Creatinine Ratio Glucose POC Glucose 97 82 Calcium 01/14/19 01/14/19 01/14/19 05:15 05:15 06:31 WBC RBC Hgb Hct MCV MCH MCHC RDW Std Deviation RDW Coeff of Yogi Plt Count MPV Immature Gran % (Auto) Neut % (Auto) Lymph % (Auto) [place] % (Auto) Eos % (Auto) Baso % (Auto) Immature Gran # (Auto) Neut # (Auto) Lymph # (Auto) [place] # (Auto) Eos # (Auto) Baso # (Auto) PT 25.7 H INR 2.7 H Sodium 135 L Potassium 3.7 D Chloride 100 Carbon Dioxide 28 Anion Gap 7.0 BUN 17 D Creatinine 3.23 H D Est Cr Clr Drug Dosing 19.7 Est GFR ( Amer) 16.7 Est GFR (Non-Af Amer) 14.4 BUN/Creatinine Ratio 5.3 L Glucose 36 L* POC Glucose 52 L* Calcium 8.1 L 01/14/19 01/14/19 01/14/19 06:52 07:18 07:42 WBC RBC Hgb Hct MCV MCH MCHC RDW Std Deviation RDW Coeff of Yogi Plt Count MPV Immature Gran % (Auto) Neut % (Auto) Lymph % (Auto) [place] % (Auto) Eos % (Auto) Baso % (Auto) Immature Gran # (Auto) Neut # (Auto) Lymph # (Auto) [place] # (Auto) Eos # (Auto) Baso # (Auto) PT INR Sodium Potassium Chloride Carbon Dioxide Anion Gap BUN Creatinine Est Cr Clr Drug Dosing Est GFR ( Amer) Est GFR (Non-Af Amer) BUN/Creatinine Ratio Glucose POC Glucose 69 L* 105 H 141 H Calcium (1) Hypotension Hypotension type: unspecified hypotension type Qualified Code(s): I95.9 - Hypotension, unspecified
[2019-01-14] MEDS ORDERED: WARFARIN SOD 7.5 MG TAB PO SCH (16:00)
--- NOTE | 2019-01-14 17:39 | Hospitalist Progress Note ---
Date of Service January 14, 2019 Assessment & Plan (1) Complication of vascular access for dialysis: Patient was sent from dialysis unit, as her PermCath was missing Patient reports possibly due to PermCath fell off overnight, she did not notice any pain or discomfort, no bleeding Did not had any dialysis earlier this week from PermCath complication/bleeding New PermCath placed by Dr. Falk, underwent dialysis yesterday, appreciate input from nephrology, Patient will need evaluation for AV graft for dialysis access in the future (2) Hemodialysis patient: End-stage renal disease on dialysis Friday, Permacath placed yesterday status post dialysis (3) Hemorrhage from dialysis catheter: Bleeding from permacath earlier last week, unable to dialysis PermCath dislodged/fell over New permacath placed, area secured with sutures Underwent successful dialysis yesterday without any complication (4) Atrial fibrillation: Chronic A. fib rate controlled continue home meds (5) COPD (chronic obstructive pulmonary disease): Respiratory status at baseline, no evidence of exacerbation (6) ESRD (end stage renal disease) on dialysis: End-stage renal disease on dialysis Patient is on dialysis Friday at [facility] Underwent dialysis yesterday 01/13/2019 Appreciate input from nephrology, electrolytes has been stable no sign of volume overload Plan for next dialysis on 01/15/2019 (7) Hypothyroidism: Continue live with (8) Depression: Continue antidepressant (9) HLD (hyperlipidemia): On statin (10) Neuropathy: Gabapentin CODE STATUS: Full code Disposition: Patient lives at home, PT OT evaluation appreciated, does recommend rehab, patient absolutely not interested to go to any rehab place, willing to have home health visiting nurse home PT, social service consulted for discharge planning, possible discharge home tomorrow after dialysis Subjective Patient found sitting on chair, denies of any discomfort has diffuse ecchymosis on the left anterior chest wall, PermCath insertion site Patient mentions of mild tenderness on palpation, no drainage noted, no fever or chills, vitals remained stable Physical Exam Constitutional: WD/WN, vitals as above + ill appearing (Chronically ill appearing); no acute distress Eyes: PERRL, conjunctivae normal, anicteric sclerae ENMT: external ear and nose normal, oropharynx normal Neck: trachea midline, no thyromegaly Respiratory: normal respiratory effort, lungs clear to auscultation Cardiovascular: RRR, no murmur, no edema Gastrointestinal (Abdomen): normal bowel sounds, soft, nontender, no hepatosplenomegaly Musculoskeletal: Head/Neck/Chest: + abnormal inspection of chest wall (Diffuse ecchymosis/hematoma on the left anterior chest wall extended from s) Skin: Trauma: + hematoma (Anterior left chest wall extending form Permacath insertion site to left si) Neurologic: PERRL, EOMI, accommodation nl, no face palsy, no dysarthria Psychiatric: A+Ox3, euthymic affect Results & Data Vital Signs (Past 12 Hours) Vital Signs Temp Pulse Pulse Resp BP BP Pulse Ox 01/14/19 15:51 37.0 C 100 H 20 101/47 L 91 01/14/19 15:00 89 01/14/19 11:26 37.4 C 73 18 89/58 L 94 01/14/19 08:00 86 01/14/19 07:00 36.5 C 87 18 93/58 L 94 (1) Atrial fibrillation Atrial fibrillation type: paroxysmal Qualified Code(s): I48.0 - Paroxysmal atrial fibrillation (2) Depression Depression Type: unspecified Qualified Code(s): F32.9 - Major depressive disorder, single episode, unspecified (3) HLD (hyperlipidemia) Hyperlipidemia type: unspecified Qualified Code(s): E78.5 - Hyperlipidemia, unspecified (4) Hypothyroidism Hypothyroidism type: unspecified Qualified Code(s): E03.9 - Hypothyroidism, unspecified (5) COPD (chronic obstructive pulmonary disease) COPD type: emphysema Emphysema type: unspecified Qualified Code(s): J43.9 - Emphysema, unspecified (6) Complication of vascular access for dialysis Encounter type: initial encounter Qualified Code(s): T82.9XXA - Unspecified complication of cardiac and vascular prosthetic device, implant and graft, initial encounter
[2019-01-14] MEDS: ALBUTEROL 0.083% NEBU SOLN 3 ML VIAL INH PRN (19:55)
[2019-01-14] MEDS: INSULIN GLARGINE SOLOSTAR 100 UNITS/ML 3 ML PEN SQ SCH (21:01)
[2019-01-14] MEDS: ATORVASTATIN 40 MG TAB PO SCH (21:01)
[2019-01-14] MEDS: METOPROLOL SUCC 25MG EXT REL TAB PO SCH (21:09)
[2019-01-14] MEDS: HYDROCODONE/ACETAMOPHEN 5/325MG TAB PO PRN (21:21)
[2019-01-15] MEDS: LEVOTHYROXINE SODIUM 125 MCG TABLET PO SCH (06:35)
[2019-01-15 06:44] LABS: INR 3.4 (0.9-1.1); Prothrombin Time 32.1 Seconds (9.0-12.0)
[2019-01-15] MEDS ORDERED: EPOETIN ALFA 4,000 UNIT/ML VIAL IV ONE (08:36)
[2019-01-15] MEDS ORDERED: SODIUM CHLORIDE 0.9% 1000ML 1,000 ML IV PRN (08:36)
[2019-01-15] MEDS: ANORO ELLIPTA~ORDER AWAITING ACTION SCH ×2 (09:11→15:39)
[2019-01-15] MEDS: MIDODRINE HCL 2.5 MG TAB PO SCH ×3 (10:00→15:38)
--- NOTE | 2019-01-15 10:18 | Nephrology Progress Note ---
Date of Service January 15, 2019 Assessment & Plan (1) ESRD (end stage renal disease) on dialysis: Patient on HD MWFS at [facility]. Last full outpatient HD was Friday. Patient had partial treatment on Friday due to bleeding. She got new TDC 01/13. She tolerated dialysis well 01/13 with net loss of 2.5 litres. She is being dialysed today for 4.5hrs on a 3k bath and target UF 2.5 litres. (2) Hypotension: Will continue midodrine 10mg pre HD. Hold BP lowering meds till after HD (3) Acute and chronic respiratory failure with hypoxia: Due to CHF and renal failure. We will continue aggressive fluid ma nagement with dialysis blood pressure permitting. Restrict fluid intake to 1200mls daily (4) Hemodialysis catheter malfunction: Patient got new catheter. Will discuss with vascular if patient is candidate for hero AVG Subjective ESRD patient seen and examined on dialysis. She is complaining of increased shortness of breath this morning. She was sitting up in the chair at the time of my visit. She is on 7 L of oxygen by facemask. No chest pain. Her blood pressure is in the 80s. No vomiting or diarrhea. No bleeding from the catheter site. Review of Systems Review of Systems: All systems reviewed & are unremarkable except as noted in HPI & below Physical Exam Physical Exam: General exam: Appears comfortable, no acute distress HEENT: Pupils are equal and reactive to light Neck: No JVD, neck is supple trachea is midline Respiratory system: Crackles bilaterally. Gastrointestinal: Abdomen is soft, non distended, non tender, bowel sounds are present CVS: Regular rate and rhythm. No murmurs, rubs or gallops Musculoskeletal: No joint or muscle tenderness Extremities: Non tender,1+ edema, peripheral pulses are present Neuro: Oriented, no tremors, no focal neurological deficits Skin: No rashes Results & Data Vital Signs (Past 12 Hours) Vital Signs Temp Pulse Pulse Resp BP Pulse Ox 01/15/19 07:49 36.8 C 62 17 82/57 L 98 01/15/19 04:56 36.2 C L 42 L 18 76/38 L 96 01/14/19 23:50 93 H 21 92 01/14/19 23:02 36.4 C L 112 H 22 107/72 95 01/14/19 22:58 96 H Laboratory Results Laboratory Results - last 24 hr 01/14/19 01/14/19 01/14/19 11:38 16:23 20:17 PT INR POC Glucose 169 H 149 H 245 H 01/14/19 01/15/19 01/15/19 23:54 06:04 06:05 PT 32.1 H INR 3.4 H POC Glucose 228 H 120 H 01/15/19 07:37 PT INR POC Glucose 96 (1) Hypotension Hypotension type: unspecified hypotension type Qualified Code(s): I95.9 - Hypotension, unspecified
--- NOTE | 2019-01-15 15:13 | Hospitalist Progress Note ---
Date of Service January 15, 2019 Assessment & Plan (1) Acute and chronic respiratory failure with hypoxia: Develop worsening of shortness of breath, hypoxia, Secondary to COPD exacerbation, Audible wheezing noted Ordered for scheduled nebulizer treatment/she was only getting limited treatment as it was ordered as needed P.o. prednisone discontinued order for IV Solu-Medrol Empiric antibiotic with IV Rocephin, p.o. Zithromax Order for chest x-ray Present on Admission?: No (2) COPD (chronic obstructive pulmonary disease): Developed COPD exacerbation with hypoxia dyspnea on exertion, audible wheeze As outlined above (3) ESRD (end stage renal disease) on dialysis: End-stage renal disease on dialysis Patient is on dialysis Friday /sat [facility] Underwent dialysis on Friday01/13/2019/and today 01/15/2019 Appreciate input from nephrology, electrolytes has been stable no sign of volume overload Charge home but on hold secondary to respiratory distress (4) Complication of vascular access for dialysis: Patient was sent from dialysis unit, as her PermCath was missing Patient reports possibly due to PermCath fell off overnight, she did not notice any pain or discomfort, no bleeding Did not had any dialysis earlier this week from PermCath complication/bleeding New PermCath placed by Dr. Falk, underwent dialysis appreciate input from nephrology, Patient will need evaluation for AV graft for dialysis access in the future (5) Hemodialysis patient: End-stage renal disease on dialysis Friday,/sat Permacath placed this admission status post dialysis on Friday and Friday (6) Hemorrhage from dialysis catheter: Bleeding from permacath earlier last week, unable to dialysis PermCath dislodged/fell over New permacath placed, area secured with sutures Underwent successful dialysis without any complication (7) Atrial fibrillation: Chronic A. fib rate controlled continue home meds (8) HLD (hyperlipidemia): On statin (9) Neuropathy: Gabapentin CODE STATUS: Full code Disposition: Patient lives at home, PT OT evaluation appreciated, does recommend rehab, patient absolutely not interested to go to any rehab place, willing to have home health visiting nurse home PT, social service consulted for discharge planning, possible discharge home tomorrow after dialysis (10) Depression: Continue antidepressant (11) Hypothyroidism: On levothyroxine DVT prophylaxis: On Coumadin INR therapeutic Disposition: Patient refused to go to rehab but wants to discharge home with home health home PT Will discharge home today for respiratory distress, COPD exacerbation Subjective Had dialysis earlier today Developed shortness of breath, hypoxia-requiring 9 L oxygen via oxygen mask to keep oxygen saturation above 90 Patient found sitting on chair, reports of difficulty breathing, no cough Afebrile She feels she could not take deep breath, Audible wheeze noted Had nebulizer treatment few nights ago, gave transient relief of breathing difficulty Physical Exam Constitutional: WD/WN, vitals as above + ill appearing (Chronically ill appearing); no acute distress Eyes: PERRL, conjunctivae normal, anicteric sclerae ENMT: external ear and nose normal, oropharynx normal Neck: trachea midline, no thyromegaly Respiratory: + respiratory distress; no cough Auscultation: + wheezes Cardiovascular: RRR, no murmur, no edema Gastrointestinal (Abdomen): normal bowel sounds, soft, nontender, no hepatosplenomegaly Musculoskeletal: Head/Neck/Chest: + abnormal inspection of chest wall (Diffuse ecchymosis/hematoma on the left anterior chest wall extended from s) Skin: Trauma: + hematoma (Anterior left chest wall extending form Permacath insertion site to left si) Neurologic: PERRL, EOMI, accommodation nl, no face palsy, no dysarthria Psychiatric: A+Ox3, euthymic affect Results & Data Vital Signs (Past 12 Hours) Vital Signs Temp Pulse Pulse Resp BP BP Pulse Ox 01/15/19 14:20 85 122/24 L 01/15/19 14:00 72 136/52 L 01/15/19 13:40 96 H 78/36 L 01/15/19 13:20 81 79/52 L 01/15/19 13:00 71 99/39 L 01/15/19 12:40 67 80/39 L 01/15/19 12:20 64 68/34 L 01/15/19 12:00 85 72/40 L 01/15/19 11:40 81 70/37 L 01/15/19 11:20 59 L 81/37 L 01/15/19 11:00 55 L 78/37 L 01/15/19 10:40 71 73/47 L 01/15/19 10:20 87 67/35 L 01/15/19 10:04 36.8 C 66 01/15/19 07:49 36.8 C 62 17 82/57 L 98 01/15/19 04:56 36.2 C L 42 L 18 76/38 L 96 (1) Atrial fibrillation Atrial fibrillation type: paroxysmal Qualified Code(s): I48.0 - Paroxysmal atrial fibrillation (2) Depression Depression Type: unspecified Qualified Code(s): F32.9 - Major depressive disorder, single episode, unspecified (3) HLD (hyperlipidemia) Hyperlipidemia type: unspecified Qualified Code(s): E78.5 - Hyperlipidemia, unspecified (4) Hypothyroidism Hypothyroidism type: unspecified Qualified Code(s): E03.9 - Hypothyroidism, unspecified (5) COPD (chronic obstructive pulmonary disease) COPD type: emphysema Emphysema type: unspecified Qualified Code(s): J43.9 - Emphysema, unspecified (6) Complication of vascular access for dialysis Encounter type: initial encounter Qualified Code(s): T82.9XXA - Unspecified complication of cardiac and vascular prosthetic device, implant and graft, initial encounter
[2019-01-15] MEDS: CHOLECALCIFEROL 1,000 UNITS TAB PO SCH (15:35)
[2019-01-15] MEDS: VITAMIN B COMPLEX TAB PO SCH (15:35)
[2019-01-15] MEDS: SERTRALINE HCL 50 MG TABLET PO SCH (15:35)
[2019-01-15] MEDS: PANTOprazole 40 MG TAB PO SCH (15:36)
[2019-01-15] MEDS: MAGNESIUM OXIDE 400 MG TAB PO SCH (15:36)
[2019-01-15] MEDS: NYSTATIN POWDER 15GM BTL EXT SCH ×2 (15:36→20:34)
[2019-01-15] MEDS: predniSONE 5 MG TAB PO SCH (15:36)
[2019-01-15] MEDS: ASCORBIC ACID 500 MG TAB PO SCH (15:36)
[2019-01-15] MEDS: WARFARIN SOD 5 MG TAB PO SCH (16:04)
[2019-01-15] MEDS: GABAPENTIN 400 MG CAP PO SCH ×2 (16:04→20:34)
[2019-01-15] MEDS: DOCUSATE SODIUM 100 MG CAP PO SCH ×2 (16:04→20:32)
[2019-01-15] MEDS: ALBUTEROL 0.083% NEBU SOLN 3 ML VIAL INH PRN (18:25)
[2019-01-15] MEDS ORDERED: ALBUTEROL 0.083% NEBU SOLN 3 ML VIAL INH SCH (20:00)
[2019-01-15] MEDS ORDERED: cefTRIAXone SODIUM 2,000 MG in DEXTROSE 5% 50 ML IV SCH (20:00)
[2019-01-15] MEDS ORDERED: LEVALBUTEROL 1.25MG/0.5ML NEB NEB SCH (20:00)
--- NOTE | 2019-01-15 20:08 | XRay Report ---
XR chest 1V portable CLINICAL HISTORY: SOB COMPARISON STUDY: 01/13/2019 FINDINGS: The heart is enlarged. There is been interval insertion of a double lumen left-sided centra l venous catheter. The tip projects over the superior vena cava. There is no pneumothorax. There is r ight lower lobe atelectasis/consolidation. There is a probable associated small pleural effusion.[ IMPRESSION: 1. Interval placement of a left sided central venous catheter. No evidence of pneumothorax 2. Slight worsening in the right lower lobe atelectasis/consolidation. Suspected small right pleural effusion. Electronically signed by: Rohan Barnes M.D. 01/15/2019 8:06 PM
[2019-01-15] MEDS: DOXYCYCLINE HYCLATE 100 MG CAP PO SCH (20:32)
[2019-01-15] MEDS: methylPREDNISolone 40 MG in SYRINGE 0 ML IV SCH (20:32)
[2019-01-15] MEDS: ATORVASTATIN 40 MG TAB PO SCH (20:33)
[2019-01-15] MEDS: METOPROLOL SUCC 25MG EXT REL TAB PO SCH (20:36)
[2019-01-15] MEDS: INSULIN GLARGINE SOLOSTAR 100 UNITS/ML 3 ML PEN SQ SCH (21:17)
[2019-01-15] MEDS: LEVALBUTEROL HCL 1.25 MG/3 ML NEB NEB SCH (23:10)
[2019-01-16] MEDS: LEVALBUTEROL HCL 1.25 MG/3 ML NEB NEB SCH ×6 (03:09→23:17)
[2019-01-16] MEDS: ANORO ELLIPTA~ORDER AWAITING ACTION SCH ×3 (03:53→16:26)
[2019-01-16] MEDS: LEVOTHYROXINE SODIUM 125 MCG TABLET PO SCH (05:03)
[2019-01-16] MEDS: methylPREDNISolone 40 MG in SYRINGE 0 ML IV SCH ×2 (05:03→21:32)
[2019-01-16 07:54] LABS: INR 3.3 (0.9-1.1); Prothrombin Time 31.2 Seconds (9.0-12.0)
[2019-01-16] MEDS ORDERED: SODIUM CHLORIDE 0.9% 1000ML 1,000 ML IV PRN (08:12)
[2019-01-16] MEDS: VITAMIN B COMPLEX TAB PO SCH (08:49)
[2019-01-16] MEDS: CHOLECALCIFEROL 1,000 UNITS TAB PO SCH (08:49)
[2019-01-16] MEDS: SERTRALINE HCL 50 MG TABLET PO SCH (08:49)
[2019-01-16] MEDS: DOCUSATE SODIUM 100 MG CAP PO SCH ×2 (08:49→21:38)
[2019-01-16] MEDS: MAGNESIUM OXIDE 400 MG TAB PO SCH (08:50)
[2019-01-16] MEDS: GABAPENTIN 400 MG CAP PO SCH ×2 (08:50→21:38)
[2019-01-16] MEDS: ASCORBIC ACID 500 MG TAB PO SCH (08:50)
[2019-01-16] MEDS: PANTOprazole 40 MG TAB PO SCH (08:50)
[2019-01-16] MEDS: MIDODRINE HCL 2.5 MG TAB PO SCH ×3 (08:51→16:26)
[2019-01-16] MEDS: DOXYCYCLINE HYCLATE 100 MG CAP PO SCH (08:51)
[2019-01-16] MEDS: NYSTATIN POWDER 15GM BTL EXT SCH ×2 (08:52→21:40)
[2019-01-16] MEDS ORDERED: HEPARIN SOD (PORCINE) 1000 UNIT/ML 10 ML VIAL IV SCH (09:00)
[2019-01-16] MEDS ORDERED: AZITHROMYCIN 250 MG TAB PO SCH (09:00)
--- NOTE | 2019-01-16 10:32 | Hospitalist Progress Note ---
Date of Service January 16, 2019 Assessment & Plan (1) Pneumonia: Chest x-ray shows progression of consolidation/infiltrate on the right lower lobe, pneumonia, need to rule out aspiration Antibiotic changed to IV cefepime for broader coverage Speech pathology consulted to assess for aspiration/dysphagia Continue IV antibiotic for at least 24 to 48 hours, will be transitioned to oral antibiotic given patient's clinical improvement Recommend 5 to 7 days of total antibiotic treatment (2) Acute and chronic respiratory failure with hypoxia: Due to right lower lobe pneumonia/Leading to COPD exacerbation Develop worsening of shortness of breath, hypoxia,On 01/15/2019 Audible wheezing noted Ordered for scheduled nebulizer treatment/she was only getting limited treatment as it was ordered as needed IV Solu-Medrol 40 mg every 8 Hours,Dose reduced to every 12 hours as wheeze respiratory distress has significantly improved Plan to transition to p.o. prednisone 40 mg daily tomorrow01/17/2019 Was started on Empiric antibiotic with IV Rocephin, p.o. Zithromax-Discontinued, Added cefepime to 50 mg every 24 hour (renally dosed/for broader coverage, covering anaerobes for possible aspiration chest x-ray 01/15/2019 1. Interval placement of a left-sided central venous catheter. No evidence of pneumothorax 2. Slight worsening in the right lower lobe atelectasis/consolidation. Suspected small right pleural effusion (3) COPD (chronic obstructive pulmonary disease): Developed COPD exacerbation with hypoxia dyspnea on exertion, audible wheeze Due to right lower lobe pneumonia Respiratory status improved with nebulizer treatment IV Solu-Medrol, antibiotic Continue management as outlined above (4) ESRD (end stage renal disease) on dialysis: End-stage renal disease on dialysis Patient is on dialysis Friday /sat [facility] Underwent dialysis on Friday01/13/2019/and today 01/15/2019 Appreciate input from nephrology, electrolytes has been stable no sign of volume overload (5) Steroid-induced hyperglycemia: BSG elevated more than 300, possible secondary to IV steroids given for COPD exacerbation IV Solu-Medrol decreased to 40 mg IV every 12, Patient is continued with the basal landed 30 units twice daily, added insulin sliding scale with correction factor of 20,/ carb ratio 10/ goal blood sugar [id number] Pharmacy consulted for glycemic management Expecting improvement of blood sugars once steroid is tapered down Hemoglobin A1c added in a.m. lab (6) Complication of vascular access for dialysis: Patient was sent from dialysis unit, as her PermCath was missing Patient reports possibly due to PermCath fell off overnight, she did not notice any pain or discomfort, no bleeding Did not had any dialysis earlier this week from PermCath complication/bleeding New PermCath placed by Dr. Falk, underwent dialysis appreciate input from nephrology, Patient will need evaluation for AV graft for dialysis access in the future (7) Hemodialysis patient: End-stage renal disease on dialysis Friday,/sat Permacath placed this admission status post dialysis on Friday and Friday (8) DM type 2 (diabetes mellitus, type 2): Insulin-dependent, complete diabetic nephropathy leading to end-stage renal disease on dialysis Patient is continued with basal Lantus 30 units twice daily Insulin sliding scale added for steroid-induced hyperglycemia Pharmacy consult for glycemic management Hemoglobin A1c in a.m. lab (9) Hemorrhage from dialysis catheter: Bleeding from permacath earlier last week, unable to dialysis PermCath dislodged/fell over New permacath placed, area secured with sutures-No bleeding noted Underwent successful dialysis without any complication (10) Atrial fibrillation: Chronic A. fib rate controlled continue home meds On Coumadin for stroke prophylaxis (11) HLD (hyperlipidemia): On statin (12) Neuropathy: Gabapentin CODE STATUS: Full code (13) Depression: Continue antidepressant (14) Hypothyroidism: On levothyroxine DVT prophylaxis: On Coumadin INR therapeutic Disposition: Patient refused to go to rehab but wants to discharge home with home health home PT Will need continued hospital stay for pneumonia Plan to discharge home when medically stable Subjective Patient reports of feeling better this morning breathing champion, Has minimum cough, bringing out mucus Afebrile, no audible fevers noted On 4 L oxygen via nasal cannula: Which is patient's baseline Patient is updated regarding chest x-ray finding of right lower lobe pneumonia, concern for aspiration versus, patient reports that she occasionally coughs while eating which has been going on for couple of months No report of choking on food Patient had prior extensive more than 2 weeks hospital stay secondary to complicated pneumonia, Willing to stay in the hospital for IV antibiotic, for at least 24 to 48 hours Spoke with patient's daughter given update Physical Exam Constitutional: WD/WN, vitals as above + ill appearing (Chronically ill appearing); no acute distress Feels much better than yesterday, pleasant, smiling Eyes: PERRL, conjunctivae normal, anicteric sclerae ENMT: external ear and nose normal, oropharynx normal Neck: trachea midline, no thyromegaly Respiratory: + cough; no respiratory distress Auscultation: + wheezes (Improved since yesterday) Cardiovascular: RRR, no murmur, no edema Gastrointestinal (Abdomen): normal bowel sounds, soft, nontender, no hepatosplenomegaly Musculoskeletal: Head/Neck/Chest: + abnormal inspection of chest wall (Diffuse ecchymosis/hematoma on the left anterior chest wall extended from s) Skin: Trauma: + hematoma (Anterior left chest wall extending form Permacath insertion site to left si) Neurologic: PERRL, EOMI, accommodation nl, no face palsy, no dysarthria Psychiatric: A+Ox3, euthymic affect Results & Data Vital Signs (Past 12 Hours) Vital Signs Temp Pulse Pulse Pulse Resp BP BP 01/16/19 07:18 36.7 C 65 18 142/80 H 01/16/19 07:13 45 L 18 01/16/19 03:10 82 20 01/16/19 03:09 82 18 01/16/19 00:41 37.3 C 68 20 100/67 01/15/19 23:44 82 82 16 Pulse Ox 01/16/19 07:18 96 01/16/19 07:13 95 01/16/19 03:10 92 01/16/19 03:09 92 01/16/19 00:41 95 01/15/19 23:44 95 (1) Atrial fibrillation Atrial fibrillation type: paroxysmal Qualified Code(s): I48.0 - Paroxysmal atrial fibrillation (2) Depression Depression Type: unspecified Qualified Code(s): F32.9 - Major depressive disorder, single episode, unspecified (3) HLD (hyperlipidemia) Hyperlipidemia type: unspecified Qualified Code(s): E78.5 - Hyperlipidemia, unspecified (4) Hypothyroidism Hypothyroidism type: unspecified Qualified Code(s): E03.9 - Hypothyroidism, unspecified (5) COPD (chronic obstructive pulmonary disease) COPD type: emphysema Emphysema type: unspecified Qualified Code(s): J43.9 - Emphysema, unspecified (6) Pneumonia Laterality: right Lung location: lower lobe of lung Pneumonia type: due to unspecified organism Qualified Code(s): J18.1 - Lobar pneumonia, unspecified organism (7) Complication of vascular access for dialysis Encounter type: initial encounter Qualified Code(s): T82.9XXA - Unspecified complication of cardiac and vascular prosthetic device, implant and graft, initial encounter (8) DM type 2 (diabetes mellitus, type 2) Diabetes mellitus fdc insulin use: with table hand use Diabetes mellitus complication status: with neurologic complications Diabetes mellitus c omplication detail: with polyneuropathy Qualified Code(s): E11.42 - Type 2 diabetes mellitus with diabetic polyneuropathy; Z79.4 - [facility] (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
[2019-01-16] MEDS: CEFEPIME 1,000 MG in SYRINGE 0 ML IV SCH (11:41)
[2019-01-16] MEDS ORDERED: CARBOHYDRATES FOR HYPOGLYCEMIA PO PRN (11:54)
[2019-01-16] MEDS ORDERED: GLUCAGON FOR INJ 1 MG VIAL SQ PRN (11:54)
[2019-01-16] MEDS ORDERED: GLUCOSE 40% GEL 15 GM TUBE PO PRN (11:54)
[2019-01-16] MEDS ORDERED: GLUCOSE 10 TABS/TUBE PO PRN (11:54)
[2019-01-16] MEDS ORDERED: DEXTROSE 50% 50 ML SYRINGE IV PRN (11:54)
[2019-01-16] MEDS ORDERED: PHARMACY GLYCEMIC MGMT CONSULT PRN (12:13)
--- NOTE | 2019-01-16 12:32 | Pharmacy Report ---
Glycemic Control Consultation - Date of Service January 16, 2019 - Scope Scope: Glycemic Pharmacist consulted by Dr Mello on 01/16/19 for glycemic control and to write orders per [facility] inpatient glycemic control protocol - Objective Weight: 92.9 kg Accuchecks BSG (last 24hrs): 01/15/19 01/15/19 01/16/19 15:33 21:10 07:33 POC Glucose 98 199 H 221 H 01/16/19 01/16/19 01/16/19 11:30 11:31 11:33 POC Glucose 456 H* 512 H* 435 H* HbA1c: * Patient's A1c * Not needed. This result is likely somewhat unreliable in ESRD patients d/t interactions between the A1c analyzing technique and high levels of urea in ESRD, reduced RBC life span, iron deficiency anemia, and EPO administration. HbA1c > 7.5% in ESRD patient may overestimate the extent of hyperglycemia in ESRD patients. - Recent Pertinent Medications Outpatient Anti-diabetic Regimen: * Lantus 30 units SQ HS The patient is currently receiving: * Basal insulin: Lantus 30 units every 24 hours given at bedtime * Correctional Insulin: NONE * Prandial insulin: NONE Risk Factors for Insulin Resistance: * Steroids * Infection * Diet - Assessment & Plan Assessment & Plan: ASSESSMENT: * 63yo T2DM female known to pharmacy from previous admissions/glycemic consults * Pt with significant steroid induced hyperglycemia from Solumedrol w/o NovoLog ordered. * Solumedrol dose decreased from q8hrs to q12hrs but total dose is still >80mg/day therefore likely to yield too much benefit. * Per previous admissions, patient typically requires ~100-140 units of insulin per day while on steroids. Will adjust regimen per previous admissions and titrate based on BSG trends and steroid dosing. Per previous admissions, will use a max dose of 40 units of NovoLog to prevent rebound hypoglycmia when BSG significantly elevated. * Considered giving one time IV insulin bolus for severe hyperglycemia, however, no PRP drawn today and patient is to have HD today. PLAN FOR INPATIENT GLYCEMIC CONTROL: * Basal insulin * Increase to 45 units SQ HS. Will give 15 units now and then resume new dosing tomorrow HS * Bolus insulin * NovoLog per scale ACHS or Q6hrs while NPO * Goal Range: Low 100 mg/dL - High 140 mg/dL * Correction Factor: 10 mg/dL/unit * Nutritional / Prandial insulin per carb ratio of 1 unit per 2.5 grams CHO consumed * MAX dose of NovoLog to be given = 40 units at one time * Please note that the plan above was derived based on current level of insulin resistance and hospital stress. These recommendations are appropriate for inpatient admission only. Plan of care upon discharge will need to be reassessed to avoid potential outpatient hypo/hyperglycemia. Thank you.
[2019-01-16] MEDS ORDERED: INSULIN GLARGINE SOLOSTAR 100 UNITS/ML 3 ML PEN SQ ONE (12:45)
[2019-01-16] MEDS: INSULIN ASPART 100 UNITS/ML 3 ML PEN SC SCH ×3 (13:03→21:37)
[2019-01-16] MEDS: HEPARIN SOD (PORCINE) 1000 UNIT/ML 10 ML VIAL IV SCH (13:10)
--- NOTE | 2019-01-16 20:38 | Nephrology Progress Note ---
Date of Service January 16, 2019 Assessment & Plan (1) ESRD (end stage renal disease) on dialysis: Patient on HD MWFS at [facility]. admitted after her TDC fell out at home. She got new TDC 01/13. She tolerated dialysis well 01/13 with net loss of 2.5 litres. for 2.75 hr tx today w/ uf as tolerated chemistries, hgb ok; volume status tenuous as ever. (2) Hypotension: Will continue midodrine 10mg pre HD. Hold BP lowering meds till after HD<>sbp in 140s before I saw her this am (3) Acute and chronic respiratory failure with hypoxia: Due to CHF and renal failure. AND d/t recurrent pneumonia; We will continue aggressive fluid management with dialysis blood pressure permitting. Restrict fluid intake to 1200mls daily Subjective seen on rounds today just before noon. yesterday after HD had worsening hypoxia on 9L 02 and CXR shows R PNA > for swallow/speech eval; for further HD today Review of Systems Review of Systems: All systems reviewed & are unremarkable except as noted in HPI & below Constitutional: + fatigue Respiratory: + cough (less than prior), + dyspnea (improved from yesterday) and + wheezing Cardiovascular: + dyspnea on exertion and + edema (markedly improved even from yesterday) Physical Exam Constitutional: + obese; no acute distress A&0 x 3 on 4LNC Eyes: EOM intact bilaterally ENMT: Ears: no external ear abnormality Nose: no external nose abnormality Mouth: + dry oral mucous membranes Neck: no nuchal rigidity Respiratory: normal respiratory effort Auscultation: + diminished lung sounds and + wheezes (diffuse, prominent) Cardiovascular: Rate/Rhythm: regular rate and regular rhythm Extremities: + edema (indurated 2+) Gastrointestinal (Abdomen): Inspection/Auscultation: normal bowel sounds Percussion/Palpation: abdomen soft; abdomen nontender Musculoskeletal: Extremities: strength 5/5 throughout laboy Skin: no rashes, warm and dry sacral/gluteal sore not examined; crusted eschar on heels/calves Neurologic: laboy, fluent speech, no tremor Psychiatric: A+Ox3, euthymic affect Results & Data Vital Signs (Past 12 Hours) Vital Signs Temp Pulse Pulse Pulse Pulse Resp BP 01/16/19 20:13 76 22 01/16/19 15:25 82 18 01/16/19 15:03 36.8 C 79 01/16/19 15:01 89 89/55 L 01/16/19 14:40 80 96/59 L 01/16/19 14:20 85 89/55 L 01/16/19 14:00 81 91/56 L 01/16/19 13:40 81 93/55 L 01/16/19 13:20 79 92/51 L 01/16/19 13:00 76 85/50 L 01/16/19 12:40 91 H 113/68 01/16/19 12:15 36.8 C 96 H BP Pulse Ox 01/16/19 20:13 97 01/16/19 15:25 97 01/16/19 15:03 93/55 L 01/16/19 15:01 01/16/19 14:40 01/16/19 14:20 01/16/19 14:00 01/16/19 13:40 01/16/19 13:20 01/16/19 13:00 01/16/19 12:40 01/16/19 12:15 Laboratory Results Abnormal lab results 01/15/19 01/16/19 01/16/19 Range/Units 21:10 07:25 07:33 PT 31.2 H (9.0-12.0) Seconds INR 3.3 H (0.9-1.1) POC Glucose 199 H 221 H (70-99) 01/16/19 01/16/19 01/16/19 Range/Units 11:30 11:31 11:33 PT (9.0-12.0) Seconds INR (0.9-1.1) POC Glucose 456 H* 512 H* 435 H* (70-99) 01/16/19 01/16/19 Range/Units 15:16 20:03 PT (9.0-12.0) Seconds INR (0.9-1.1) POC Glucose 131 H 133 H (70-99) (1) Hypotension Hypotension type: unspecified hypotension type Qualified Code(s): I95.9 - Hypotension, unspecified
[2019-01-16] MEDS: INSULIN GLARGINE SOLOSTAR 100 UNITS/ML 3 ML PEN SQ SCH (21:36)
[2019-01-16] MEDS: ATORVASTATIN 40 MG TAB PO SCH (21:38)
[2019-01-16] MEDS: METOPROLOL SUCC 25MG EXT REL TAB PO SCH (21:39)
[2019-01-17] MEDS ORDERED: INSULIN ASPART 100 UNITS/ML 3 ML PEN SC SCH ×2 (01:00)
[2019-01-17] MEDS: ANORO ELLIPTA~ORDER AWAITING ACTION SCH ×3 (01:10→17:06)
[2019-01-17] MEDS: LEVALBUTEROL HCL 1.25 MG/3 ML NEB NEB SCH ×6 (03:50→23:17)
[2019-01-17] MEDS: LEVOTHYROXINE SODIUM 125 MCG TABLET PO SCH (04:32)
[2019-01-17] MEDS: PANTOprazole 40 MG TAB PO SCH (08:17)
[2019-01-17] MEDS: GABAPENTIN 400 MG CAP PO SCH ×2 (08:17→22:42)
[2019-01-17] MEDS: ASCORBIC ACID 500 MG TAB PO SCH (08:17)
[2019-01-17] MEDS: MAGNESIUM OXIDE 400 MG TAB PO SCH (08:17)
[2019-01-17] MEDS: CHOLECALCIFEROL 1,000 UNITS TAB PO SCH (08:17)
[2019-01-17] MEDS: DOCUSATE SODIUM 100 MG CAP PO SCH ×2 (08:17→22:42)
[2019-01-17] MEDS: SERTRALINE HCL 50 MG TABLET PO SCH (08:17)
[2019-01-17] MEDS: VITAMIN B COMPLEX TAB PO SCH (08:18)
[2019-01-17] MEDS: MIDODRINE HCL 2.5 MG TAB PO SCH ×3 (08:18→16:59)
[2019-01-17] MEDS: INSULIN ASPART 100 UNITS/ML 3 ML PEN SC SCH ×3 (08:26→17:48)
[2019-01-17] MEDS: methylPREDNISolone 40 MG in SYRINGE 0 ML IV SCH (08:28)
[2019-01-17] MEDS: NYSTATIN POWDER 15GM BTL EXT SCH ×2 (08:29→22:41)
[2019-01-17] MEDS ORDERED: INSULIN GLARGINE SOLOSTAR 100 UNITS/ML 3 ML PEN SQ ONE (08:30)
[2019-01-17 09:13] LABS: Hepatitis B Surface Antibody Non-Immune
[2019-01-17 09:24] LABS: Hepatitis B Surface Antigen Neg (Neg)
--- NOTE | 2019-01-17 11:20 | Pharmacy Report ---
Pharmacy Glycemic Short Note 2 - Date of Service January 17, 2019 - Glycemic Short BSG Results (Last 24 hours): 01/16/19 01/16/19 01/16/19 11:30 11:31 11:33 POC Glucose 456 H* 512 H* 435 H* 01/16/19 01/16/19 01/16/19 15:16 16:17 20:03 POC Glucose 131 H 91 133 H 01/17/19 01/17/19 01/17/19 00:45 04:12 07:37 POC Glucose 341 H* 294 H 355 H* 01/17/19 07:38 POC Glucose 340 H* OUTPATIENT ANTIDIABETIC REGIMEN: * Lantus 30 units SQ HS ASSESSMENT: * 63yo T2DM female known to pharmacy from previous admissions/glycemic consults * Pt with significant steroid induced hyperglycemia from Solumedrol w/o NovoLog ordered. NovoLog scale ordered yesterday per previous admission dosing. * Solumedrol dose decreased from q8hrs to q12hrs but total dose is still >80mg/day therefore likely to yield too much benefit. * Per previous admissions, patient typically requires ~100-140 units of insulin per day while on steroids. Will adjust regimen per previous admissions and titrate based on BSG trends and steroid dosing. Per previous admissions, will use a max dose of 40 units of NovoLog to prevent rebound hypoglycemia when BSG significantly elevated. * BSGs have been fluctuating dramatically. BSG dropped significantly after SQ insulin bolus + HD. Then, CHO coverage held at dinner for "low" BSG. Unfortunately, pt was snacking all night with a friend in the room w/o CHO coverage. BSG bridger back to 341, 294, 340mg/dl this morning. Will not change any orders today since hyperglycemia is accounted for from omitting CHO coverage. Will continue increased basal insulin dosing for RTC steroid induced hyperglycemia PLAN FOR INPATIENT GLYCEMIC CONTROL: * Basal insulin * Continue increased dosing, Lantus 15 units SQ AM + outpatient dosing of Lantus 30 units HS * Bolus insulin * NovoLog per scale ACHS or Q6hrs while NPO * Goal Range: Low 100 mg/dL - High 140 mg/dL * Correction Factor: 12 mg/dL/unit * Nutritional / Prandial insulin per carb ratio of 1 unit per 2.5 grams CHO consumed * MAX dose of NovoLog to be given = 40 units at one time
[2019-01-17] MEDS: CEFEPIME 1,000 MG in SYRINGE 0 ML IV SCH (16:57)
--- NOTE | 2019-01-17 17:25 | Hospitalist Progress Note ---
Date of Service January 17, 2019 Assessment & Plan (1) Pneumonia: Clinically much improved, hypoxia resolved, minimum cough no fever, BCG Chest x-ray shows progression of consolidation/infiltrate on the right lower lobe, pneumonia, need to rule out aspiration Antibiotic changed to IV cefepime for broader coverage Speech pathology consulted to assess for aspiration/dysphagia We will change antibiotic to Augmentin tomorrow Recommend 5 to 7 days of total antibiotic treatment (2) Acute and chronic respiratory failure with hypoxia: Resolved, respiratory status improved to baseline Due to right lower lobe pneumonia/Leading to COPD exacerbation Develop worsening of shortness of breath, hypoxia,On 01/15/2019 Audible wheezing noted Ordered for scheduled nebulizer treatment/she was only getting limited treatment as it was ordered as needed IV Solu-Medrol 40 mg every 8 Hours,Dose reduced to every 12 hours as wheeze respiratory distress has significantly improved Plan to transition to p.o. prednisone 40 mg daily tomorrow01/17/2019 Was started on Empiric antibiotic with IV Rocephin, p.o. Zithromax-Discontinued, Added cefepime to 50 mg every 24 hour (renally dosed/for broader coverage, covering anaerobes for possible aspiration chest x-ray 01/15/2019 1. Interval placement of a left-sided central venous catheter. No evidence of pneumothorax Clinic medically most clinically much improved, will change to p.o. Augmentin prior to discharge home tomorrow 2. Slight worsening in the right lower lobe atelectasis/consolidation. Suspected small right pleural effusion (3) COPD (chronic obstructive pulmonary disease): Developed COPD exacerbation with hypoxia dyspnea on exertion, audible wheeze Due to right lower lobe pneumonia Respiratory status improved with nebulizer treatment IV Solu-Medrol, antibiotic We will DC IV Solu-Medrol, patient will be discharged with p.o. prednisone taper Continue management as outlined above (4) ESRD (end stage renal disease) on dialysis: End-stage renal disease on dialysis Patient is on dialysis Friday /sat [facility] Underwent dialysis on Friday01/13/2019/and today 01/15/2019 Appreciate input from nephrology, electrolytes has been stable no sign of volume overload (5) Steroid-induced hyperglycemia: BSG elevated more than 300, possible secondary to IV steroids given for COPD exacerbation We will DC IV Solu-Medrol, transition to p.o. prednisone taper Patient is continued with the basal landed 30 units twice daily, added insulin sliding scale with correction factor of 20,/ carb ratio 10/ goal blood sugar [id number] Pharmacy consulted for glycemic management Expecting improvement of blood sugars once steroid is tapered down Hemoglobin A1c added in a.m. lab (6) Complication of vascular access for dialysis: Patient was sent from dialysis unit, as her PermCath was missing Patient reports possibly due to PermCath fell off overnight, she did not notice any pain or discomfort, no bleeding Did not had any dialysis earlier this week from PermCath complication/bleeding New PermCath placed by Dr. Falk, underwent dialysis appreciate input from nephrology, Patient will need evaluation for AV graft for dialysis access in the future (7) Hemodialysis patient: End-stage renal disease on dialysis Friday,/sat Permacath placed this admission status post dialysis on Friday and Friday (8) DM type 2 (diabetes mellitus, type 2): Insulin-dependent, complete diabetic nephropathy leading to end-stage renal disease on dialysis Patient is continued with basal Lantus 30 units twice daily Insulin sliding scale added for steroid-induced hyperglycemia Pharmacy consult for glycemic management-appreciate input (9) Hemorrhage from dialysis catheter: Bleeding from permacath earlier last week, unable to dialysis PermCath dislodged/fell over New permacath placed, area secured with sutures-No bleeding noted Underwent successful dialysis without any complication (10) Atrial fibrillation: Chronic A. fib rate controlled continue home meds On Coumadin for stroke prophylaxis (11) HLD (hyperlipidemia): On statin (12) Neuropathy: Gabapentin CODE STATUS: Full code (13) Depression: Continue antidepressant (14) Hypothyroidism: On levothyroxine DVT prophylaxis: On Coumadin INR therapeutic Disposition: Doing well clinically, plan to discharge home with home health tomorrow, patient is already established with [facility] care Subjective Was 1 Breathing much better today spirit much better, , minimum cough, no fever chills, no hypoxia, patient is back to her respiratory baseline status, plan for dialysis tomorrow and discharge home afterwards reviewed all with Physical Exam Constitutional: WD/WN, vitals as above + ill appearing (Chronically ill appearing); no acute distress Eyes: PERRL, conjunctivae normal, anicteric sclerae ENMT: external ear and nose normal, oropharynx normal Neck: trachea midline, no thyromegaly Respiratory: normal respiratory effort, lungs clear to auscultation + cough; no respiratory distress Auscultation: + wheezes (Improved since yesterday) Cardiovascular: RRR, no murmur, no edema Gastrointestinal (Abdomen): normal bowel sounds, soft, nontender, no hepatosplenomegaly Musculoskeletal: Left chest wall PermCath pleasant, ecchymosis improved Skin: Trauma: + hematoma (Anterior left chest wall extending form Permacath insertion site to left si) Neurologic: PERRL, EOMI, accommodation nl, no face palsy, no dysarthria Psychiatric: A+Ox3, euthymic affect Results & Data Vital Signs (Past 12 Hours) Vital Signs Temp Pulse Pulse Pulse Resp BP BP 01/17/19 15:22 97 H 18 01/17/19 15:00 37 C 105 H 18 112/72 01/17/19 11:13 63 18 01/17/19 07:36 64 16 01/17/19 07:23 36.6 C 96 H 18 121/78 Pulse Ox 01/17/19 15:22 97 01/17/19 15:00 90 01/17/19 11:13 93 01/17/19 07:36 97 01/17/19 07:23 97 (1) DM type 2 (diabetes mellitus, type 2) Diabetes mellitus complication detail: with polyneuropathy Diabetes mellitus complication status: with neurologic complications 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: with penitentiary use Qualified Code(s): E11.42 - Type 2 diabetes mellitus with diabetic polyneuropathy; Z79.4 - assisted (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 (2) Atrial fibrillation Atrial fibrillation type: paroxysmal Qualified Code(s): I48.0 - Paroxysmal atrial fibrillation (3) Depression Depression Type: unspecified Qualified Code(s): F32.9 - Major depressive disorder, single episode, unspecified (4) HLD (hyperlipidemia) Hyperlipidemia type: unspecified Qualified Code(s): E78.5 - Hyperlipidemia, unspecified (5) Hypothyroidism Hypothyroidism type: unspecified Qualified Code(s): E03.9 - Hypothyroidism, unspecified (6) COPD (chronic obstructive pulmonary disease) COPD type: emphysema Emphysema type: unspecified Qualified Code(s): J43.9 - Emphysema, unspecified (7) Pneumonia Laterality: right Lung location: lower lobe of lung Pneumonia type: due to unspecified organism Qualified Code(s): J18.1 - Lobar pneumonia, unspecified organism (8) Complication of vascular access for dialysis Encounter type: initial encounter Qualified Code(s): T82.9XXA - Unspecified complication of cardiac and vascular prosthetic device, implant and graft, initial encounter
[2019-01-17] MEDS: INSULIN GLARGINE SOLOSTAR 100 UNITS/ML 3 ML PEN SQ SCH (22:39)
[2019-01-17] MEDS: ATORVASTATIN 40 MG TAB PO SCH (22:42)
[2019-01-17] MEDS: METOPROLOL SUCC 25MG EXT REL TAB PO SCH (22:43)
[2019-01-17] MEDS ORDERED: INSULIN ASPART 100 UNITS/ML 3 ML PEN SC ONE (22:45)
[2019-01-18] MEDS: ANORO ELLIPTA~ORDER AWAITING ACTION SCH ×3 (00:13→15:46)
[2019-01-18] MEDS: INSULIN ASPART 100 UNITS/ML 3 ML PEN SC SCH ×7 (01:05→23:38)
[2019-01-18] MEDS: LEVALBUTEROL HCL 1.25 MG/3 ML NEB NEB SCH ×6 (03:20→23:16)
[2019-01-18] MEDS: LEVOTHYROXINE SODIUM 125 MCG TABLET PO SCH (04:48)
[2019-01-18 06:42] LABS: Estimated Average Glucose 206 mg/dl; Hemoglobin A1C 8.8 % (4.5-5.6)
[2019-01-18] MEDS ORDERED: HEPARIN SOD (PORCINE) 1000 UNIT/ML 10 ML VIAL IV ONE (07:45)
[2019-01-18] MEDS ORDERED: SODIUM CHLORIDE 0.9% 1000ML 1,000 ML IV PRN (07:45)
[2019-01-18] MEDS: MIDODRINE HCL 2.5 MG TAB PO SCH ×4 (08:28→17:26)
[2019-01-18] MEDS: MAGNESIUM OXIDE 400 MG TAB PO SCH (08:29)
[2019-01-18] MEDS: VITAMIN B COMPLEX TAB PO SCH (08:29)
[2019-01-18] MEDS: ASCORBIC ACID 500 MG TAB PO SCH (08:29)
[2019-01-18] MEDS: SERTRALINE HCL 50 MG TABLET PO SCH (08:29)
[2019-01-18] MEDS: DOCUSATE SODIUM 100 MG CAP PO SCH ×2 (08:29→20:16)
[2019-01-18] MEDS: MICONAZOLE NITRATE POWDER 43 GM EXT PRN (08:30)
[2019-01-18] MEDS: NYSTATIN POWDER 15GM BTL EXT SCH ×2 (08:30→20:22)
[2019-01-18] MEDS: CHOLECALCIFEROL 1,000 UNITS TAB PO SCH (08:30)
[2019-01-18] MEDS: PANTOprazole 40 MG TAB PO SCH (08:30)
[2019-01-18] MEDS: GABAPENTIN 400 MG CAP PO SCH ×2 (08:30→20:18)
[2019-01-18] MEDS ORDERED: methylPREDNISolone 40 MG in SYRINGE 0 ML IV SCH (09:00)
[2019-01-18 09:07] LABS: Basophils # (auto) 0.02 K/uL (0-0.2); Basophils % (auto) 0.1 %; Eosinophils # (auto) 0.05 K/uL (0-0.5); Eosinophils % (auto) 0.3 %; Hematocrit (blood only) 33.6 % (37-47); Hemoglobin 10.4 g/dL (12.0-16.0); Immature Granulocytes # (auto) 0.29 K/uL (0.00-0.02); Immature Granulocytes % (auto) 1.9 %; Lymphocytes # (auto) 1.89 K/uL (1.2-3.4); Lymphocytes % (auto) 12.3 %; Mean Corpuscular Volume 92.8 fL (80-100); Mean Platelet Volume 10.3 fL (7.4-10.4); Monocytes # (auto) 1.41 K/uL (0.11-0.59); Monocytes % (auto) 9.2 %; Neutrophils # (auto) 11.72 K/uL (1.4-6.5); Neutrophils % (auto) 76.2 %; Nucleated RBC % (auto) 0.6 %; Platelet Count 212 K/uL (130-400); RDW Coefficient of Variation 19.3 % (11.5-14.5); RDW Standard Deviation 65.2 fL (36.4-46.3); Red Blood Count 3.62 M/uL (4.2-5.4); White Blood Count 15.38 K/uL (4.8-10.8)
[2019-01-18 09:25] LABS: INR 2.6 (0.9-1.1); Prothrombin Time 25.3 Seconds (9.0-12.0)
[2019-01-18 09:49] LABS: BUN Creatinine Ratio 9.5 (10-20); Calcium 8.8 mg/dl (8.5-10.1); Creatinine Clr Calc Pharmacy 9.6 ml/min; Est GFR (African American) 7.1; Est GFR (Non-African American) 6.2; Potassium 4.1 mmol/L (3.5-5.1)
--- NOTE | 2019-01-18 14:07 | Pharmacy Report ---
Pharmacy Glycemic Short Note 2 - Date of Service January 18, 2019 - Glycemic Short BSG Results (Last 24 hours): 01/17/19 01/17/19 01/17/19 16:33 20:26 22:29 Glucose POC Glucose 130 H 247 H 247 H 01/18/19 01/18/19 01/18/19 00:34 00:37 04:36 Glucose POC Glucose 286 H 281 H 193 H 01/18/19 01/18/19 07:49 08:55 Glucose 209 H POC Glucose 162 H OUTPATIENT ANTIDIABETIC REGIMEN: * Lantus 30 units SQ HS ASSESSMENT: 01/18 * Patient received total of 138 units of insulin yesterday, of which 45 units were basal insulin * Fasting BSG this am 162 mg/dL - much improved from days prior * Steroids continue to decrease further - changed to solumedrol 40 Q12 to Q24 hr dosing - will further loosen CF/CR this morning * Patient also at dialysis today - no lunchtime BSG available, anticipate will collect after lunch. Patient typically drops significantly after however did not eat before/no carb coverage documented so will need to follow up after they return ; may need to adjust CF/CR since unknown which way BSGs are trending at this time * Will add scale for Lantus for tonight as well as overnight checks 01/17 * 63yo T2DM female known to pharmacy from previous admissions/glycemic consults * Pt with significant steroid induced hyperglycemia from Solumedrol w/o NovoLog ordered. NovoLog scale ordered yesterday per previous admission dosing. * Solumedrol dose decreased from q8hrs to q12hrs but total dose is still >80mg/day therefore likely to yield too much benefit. * Per previous admissions, patient typically requires ~100-140 units of insulin per day while on steroids. Will adjust regimen per previous admissions and titrate based on BSG trends and steroid dosing. Per previous admissions, will use a max dose of 40 units of NovoLog to prevent rebound hypoglycemia when BSG significantly elevated. * BSGs have been fluctuating dramatically. BSG dropped significantly after SQ insulin bolus + HD. Then, CHO coverage held at dinner for "low" BSG. Unfortunately, pt was snacking all night with a friend in the room w/o CHO coverage. BSG bridger back to 341, 294, 340mg/dl this morning. Will not change any orders today since hyperglycemia is accounted for from omitting CHO coverage. Will continue increased basal insulin dosing for RTC steroid induced hyperglycemia PLAN FOR INPATIENT GLYCEMIC CONTROL: * Basal insulin * Lantus with scale for this evening 30-40 units based upon BSG value * Bolus insulin - loosen * NovoLog per scale ACHS or Q6hrs while NPO * Goal Range: Low 100 mg/dL - High 140 mg/dL * Correction Factor: 15 mg/dL/unit * Nutritional / Prandial insulin per carb ratio of 1 unit per 4 grams CHO consumed * MAX dose of NovoLog to be given = 40 units at one time
[2019-01-18] MEDS: HEPARIN SOD (PORCINE) 1000 UNIT/ML 10 ML VIAL IV SCH (15:28)
[2019-01-18] MEDS ORDERED: AMOXICILLIN/CLAVULANATE 500 MG TAB PO ONE (16:15)
[2019-01-18] MEDS: CEFEPIME 1,000 MG in SYRINGE 0 ML IV SCH (16:21)
--- NOTE | 2019-01-18 16:37 | Hospitalist Progress Note ---
Date of Service January 18, 2019 Assessment & Plan (1) Pneumonia: Clinically much improved, hypoxia resolved, minimum cough no fever, BCG Chest x-ray shows progression of consolidation/infiltrate on the right lower lobe, pneumonia, need to rule out aspiration was treated with IV cefepime f Speech pathology consulted to assess for aspiration/dysphagia-appreciate input scheduled for video swallow study in AM plan to change antibiotic to Augmentin tomorrow Recommend 5 to 7 days of total antibiotic treatment (2) Acute and chronic respiratory failure with hypoxia: Resolved, respiratory status improved to baseline Due to right lower lobe pneumonia/Leading to COPD exacerbation Develop worsening of shortness of breath, hypoxia,On 01/15/2019 IV Solu-Medrol 40 mg every 8 Hours,Dose reduced to every 12 hours as wheeze respiratory distress has significantly improved transitioned to p.o. prednisone 40 mg daily 01/17/2019 Added cefepime to 50 mg every 24 hour (renally dosed/for broader coverage, covering anaerobes for possible aspiration chest x-ray 01/15/2019 1. Interval placement of a left-sided central venous catheter. No evidence of pneumothorax Clinic medically most clinically much improved, will change to p.o. Augmentin prior to discharge home tomorrow 2. Slight worsening in the right lower lobe atelectasis/consolidation. Suspected small right pleural effusion speech therapy consulted and appreciate input plan for VFSS tomorrow (3) COPD (chronic obstructive pulmonary disease): Developed COPD exacerbation with hypoxia dyspnea on exertion, audible wheeze Due to right lower lobe pneumonia Respiratory status improved with nebulizer treatment IV Solu-Medrol, antibiotic on p.o. prednisone taper Continue management as outlined above (4) ESRD (end stage renal disease) on dialysis: End-stage renal disease on dialysis Patient is on dialysis Friday /sat [facility] left chest wall new perm cath placed by Vascular surgery this Admission Appreciate input from nephrology, electrolytes has been stable no sign of volume overload (5) Steroid-induced hyperglycemia: BSG elevated more than 300, possible secondary to IV steroids given for COPD exacerbation on p.o. prednisone taper Patient is continued with the basal landed 30 units twice daily, added insulin sliding scale with correction factor of 20,/ carb ratio 10/ goal blood sugar [id number] Pharmacy consulted for glycemic management-appreciate input Expecting improvement of blood sugars once steroid is tapered down (6) Complication of vascular access for dialysis: Patient was sent from dialysis unit, as her PermCath was missing Patient reports possibly due to PermCath fell off overnight, she did not notice any pain or discomfort, no bleeding Did not had any dialysis earlier this week from PermCath complication/bleeding New PermCath placed by Dr. Falk, underwent dialysis with out any complication appreciate input from nephrology, Patient will need evaluation for AV graft for dialysis access in the future (7) Hemodialysis patient: End-stage renal disease on dialysis Friday,/sat Permacath placed this admission status post dialysis without any complication (8) DM type 2 (diabetes mellitus, type 2): Insulin-dependent, complete diabetic nephropathy leading to end-stage renal disease on dialysis Patient is continued with basal Lantus 30 units twice daily Insulin sliding scale added for steroid-induced hyperglycemia Pharmacy consulted for glycemic management-appreciate input-appreciate input (9) Hemorrhage from dialysis catheter: Bleeding from permacath earlier last week, unable to dialysis PermCath dislodged/fell over New permacath placed, area secured with sutures-No bleeding noted Underwent successful dialysis without any complication (10) Atrial fibrillation: Chronic A. fib rate controlled continue home meds On Coumadin for stroke prophylaxis (11) HLD (hyperlipidemia): On statin (12) Neuropathy: Gabapentin CODE STATUS: Full code (13) Depression: Continue antidepressant (14) Hypothyroidism: On levothyroxine DVT prophylaxis: On Coumadin INR therapeutic Disposition: Doing well clinically, plan to discharge home with home health tomorrow 01/19/2019 after VFSS , patient is already established with [facility] health care Subjective Breathing much better today spirit much better, , minimum cough, no fever chills, no hypoxia, patient is back to her respiratory baseline status s/p dialysis today scheduled for Video swallow study in am Physical Exam Constitutional: WD/WN, vitals as above + ill appearing (Chronically ill appearing); no acute distress Eyes: PERRL, conjunctivae normal, anicteric sclerae ENMT: external ear and nose normal, oropharynx normal Neck: trachea midline, no thyromegaly Respiratory: normal respiratory effort, lungs clear to auscultation + cough; no respiratory distress Auscultation: + wheezes (Improved since yesterday) Cardiovascular: RRR, no murmur, no edema Gastrointestinal (Abdomen): normal bowel sounds, soft, nontender, no hepatosplenomegaly Musculoskeletal: Extremities: + extremities abnormal to inspection (perm cath on left ant chest wall /hematoma /ecchymosis has resolved ) Neurologic: PERRL, EOMI, accommodation nl, no face palsy, no dysarthria Psychiatric: A+Ox3, euthymic affect Results & Data Vital Signs (Past 12 Hours) Vital Signs Temp Pulse Pulse Pulse Resp BP BP 01/18/19 15:20 36.7 C 88 16 103/71 01/18/19 15:10 72 20 01/18/19 14:10 36.8 C 74 83/54 L 01/18/19 13:40 73 77/53 L 01/18/19 13:20 80 79/40 L 01/18/19 13:00 59 L 80/47 L 01/18/19 12:40 58 L 73/53 L 01/18/19 12:20 81 86/49 L 01/18/19 12:00 87 70/44 L 01/18/19 11:40 69 75/43 L 01/18/19 11:20 59 L 136/83 01/18/19 11:14 66 18 01/18/19 11:00 54 L 125/76 01/18/19 10:40 58 L 118/99 01/18/19 10:20 68 110/51 L 01/18/19 10:00 59 L 83/49 L 01/18/19 09:40 87 65/37 L 01/18/19 09:20 93 H 64/29 L 01/18/19 09:06 36.7 C 72 54 L 01/18/19 07:53 36.8 C 72 16 90/60 L 01/18/19 06:57 72 16 Pulse Ox 01/18/19 15:20 97 01/18/19 15:10 91 01/18/19 14:10 01/18/19 13:40 01/18/19 13:20 01/18/19 13:00 01/18/19 12:40 01/18/19 12:20 01/18/19 12:00 01/18/19 11:40 01/18/19 11:20 01/18/19 11:14 94 01/18/19 11:00 01/18/19 10:40 01/18/19 10:20 01/18/19 10:00 01/18/19 09:40 01/18/19 09:20 01/18/19 09:06 01/18/19 07:53 95 01/18/19 06:57 95 (1) DM type 2 (diabetes mellitus, type 2) Diabetes mellitus complication detail: with polyneuropathy Diabetes mellitus complication status: with neurologic complications Diabetes mellitus skilled nursing insulin use: with 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9 - Hypothyroidism, unspecified (6) COPD (chronic obstructive pulmonary disease) COPD type: emphysema Emphysema type: unspecified Qualified Code(s): J43.9 - Emphysema, unspecified (7) Pneumonia Laterality: right Lung location: lower lobe of lung Pneumonia type: due to unspecified organism Qualified Code(s): J18.1 - Lobar pneumonia, unspecified organism (8) Complication of vascular access for dialysis Encounter type: initial encounter Qualified Code(s): T82.9XXA - Unspecified complication of cardiac and vascular prosthetic device, implant and graft, initial encounter
[2019-01-18] MEDS: METOPROLOL SUCC 25MG EXT REL TAB PO SCH (20:16)
[2019-01-18] MEDS: ATORVASTATIN 40 MG TAB PO SCH (20:17)
[2019-01-18] MEDS: HYDROCODONE/ACETAMOPHEN 5/325MG TAB PO PRN (20:18)
--- NOTE | 2019-01-18 20:47 | Nephrology Progress Note ---
Date of Service January 18, 2019 Assessment & Plan (1) ESRD (end stage renal disease) on dialysis: Patient on HD MWFSat at [facility]. admitted after her TDC fell out at home. She got new TDC 01/13. She tolerated dialysis well 01/13 with net loss of 2.5 litres. for 4.5 hr tx today w/ uf as tolerated ordered hgb, bmp to be drawn on HD; volume status tenuous as ever. (2) Hypotension: Will continue midodrine 10mg pre HD. Hold BP lowering meds till after HD<>sbp in 100s systolic before I saw her; despite low bp at HD, now at 103 systolic this evneing (3) Acute and chronic respiratory failure with hypoxia: Due to CHF and renal failure. AND d/t recurrent pneumonia; We will continue aggressive fluid management with dialysis blood pressure permitting. cont to restrict fluid intake to 1200mls daily Subjective seen on rounds this am 0840; feeling well; does not notice her audible wheezing; anxious for d/c from hospital; had several calls from nursing for HD that bp was low(60s systolic) at start but pt alert and talkatieve w/ these readings. Breathing much better today spirit much better, , minimum cough, no fever chills, no hypoxia, patient is back to her respiratory baseline status, plan for dialysis tomorrow and discharge home afterwards reviewed all with Review of Systems Review of Systems: All systems reviewed & are unremarkable except as noted in HPI & below Respiratory: + dyspnea on exertion and + wheezing Cardiovascular: + edema Integumentary: + non-healing lesions (L buttock) Physical Exam Constitutional: + obese; no acute distress sitting up in bed on 4L nc Eyes: EOM intact bilaterally ENMT: Ears: no external ear abnormality Nose: no external nose abnormality Mouth: + dry oral mucous membranes Neck: no nuchal rigidity Respiratory: normal respiratory effort Auscultation: + diminished lung sounds and + wheezes (diffuse, prominent) Cardiovascular: Rate/Rhythm: regular rate and regular rhythm Extremities: + edema (indurated 2+) Gastrointestinal (Abdomen): Inspection/Auscultation: normal bowel sounds Percussion/Palpation: abdomen soft; abdomen nontender Musculoskeletal: Extremities: strength 5/5 throughout Skin: no rashes, warm and dry backside not examined > pt leaning to keep wt off of it Neurologic: laboy, fluent speech Psychiatric: A+Ox3, euthymic affect Results & Data Vital Signs (Past 12 Hours) Vital Signs Temp Pulse Pulse Pulse Resp BP BP 01/18/19 19:15 74 18 01/18/19 15:20 36.7 C 88 16 103/71 01/18/19 15:10 72 20 01/18/19 14:10 36.8 C 74 83/54 L 01/18/19 13:40 73 77/53 L 01/18/19 13:20 80 79/40 L 01/18/19 13:00 59 L 80/47 L 01/18/19 12:40 58 L 73/53 L 01/18/19 12:20 81 86/49 L 01/18/19 12:00 87 70/44 L 01/18/19 11:40 69 75/43 L 01/18/19 11:20 59 L 136/83 01/18/19 11:14 66 18 01/18/19 11:00 54 L 125/76 01/18/19 10:40 58 L 118/99 01/18/19 10:20 68 110/51 L 01/18/19 10:00 59 L 83/49 L 01/18/19 09:40 87 65/37 L 01/18/19 09:20 93 H 64/29 L 01/18/19 09:06 36.7 C 72 54 L Pulse Ox 01/18/19 19:15 94 01/18/19 15:20 97 01/18/19 15:10 91 01/18/19 14:10 01/18/19 13:40 01/18/19 13:20 01/18/19 13:00 01/18/19 12:40 01/18/19 12:20 01/18/19 12:00 01/18/19 11:40 01/18/19 11:20 01/18/19 11:14 94 01/18/19 11:00 01/18/19 10:40 01/18/19 10:20 01/18/19 10:00 01/18/19 09:40 01/18/19 09:20 01/18/19 09:06 Laboratory Results Abnormal lab results 01/17/19 01/17/19 01/18/19 Range/Units 06:46 22:29 00:34 WBC (4.8-10.8) K/uL RBC (4.2-5.4) M/uL Hgb (12.0-16.0) g/dL Hct (37-47) % MCHC (32-36) g/dL RDW Std Deviation (36.4-46.3) fL RDW Coeff of Yogi (11.5-14.5) % Immature Gran # (Auto) (0.00-0.02) K/uL Neut # (Auto) (1.4-6.5) K/uL Bowman # (Auto) (0.11-0.59) K/uL Absolute Nucleated RBC (0-0) K/uL PT (9.0-12.0) Seconds INR (0.9-1.1) Sodium (136-145) mmol/L Anion Gap (3-11) BUN (7-18) mg/dl Creatinine (0.6-1.2) mg/dl BUN/Creatinine Ratio (10-20) Glucose (70-99) mg/dl POC Glucose 247 H 286 H (70-99) Hemoglobin A1c 8.8 H (4.5-5.6) % 01/18/19 01/18/19 01/18/19 Range/Units 00:37 04:36 07:49 WBC (4.8-10.8) K/uL RBC (4.2-5.4) M/uL Hgb (12.0-16.0) g/dL Hct (37-47) % MCHC (32-36) g/dL RDW Std Deviation (36.4-46.3) fL RDW Coeff of Yogi (11.5-14.5) % Immature Gran # (Auto) (0.00-0.02) K/uL Neut # (Auto) (1.4-6.5) K/uL Bowman # (Auto) (0.11-0.59) K/uL Absolute Nucleated RBC (0-0) K/uL PT (9.0-12.0) Seconds INR (0.9-1.1) Sodium (136-145) mmol/L Anion Gap (3-11) BUN (7-18) mg/dl Creatinine (0.6-1.2) mg/dl BUN/Creatinine Ratio (10-20) Glucose (70-99) mg/dl POC Glucose 281 H 193 H 162 H (70-99) Hemoglobin A1c (4.5-5.6) % 01/18/19 01/18/19 01/18/19 Range/Units 08:55 08:55 08:55 WBC 15.38 H (4.8-10.8) K/uL RBC 3.62 L (4.2-5.4) M/uL Hgb 10.4 L (12.0-16.0) g/dL Hct 33.6 L (37-47) % MCHC 31.0 L (32-36) g/dL RDW Std Deviation 65.2 H (36.4-46.3) fL RDW Coeff of Yogi 19.3 H (11.5-14.5) % Immature Gran # (Auto) 0.29 H (0.00-0.02) K/uL Neut # (Auto) 11.72 H (1.4-6.5) K/uL Bowman # (Auto) 1.41 H (0.11-0.59) K/uL Absolute Nucleated RBC 0.10 H (0-0) K/uL PT 25.3 H (9.0-12.0) Seconds INR 2.6 H (0.9-1.1) Sodium 134 L (136-145) mmol/L Anion Gap 15.0 H (3-11) BUN 63 H (7-18) mg/dl Creatinine 6.53 H* (0.6-1.2) mg/dl BUN/Creatinine Ratio 9.5 L (10-20) Glucose 209 H (70-99) mg/dl POC Glucose (70-99) Hemoglobin A1c (4.5-5.6) % 01/18/19 01/18/19 01/18/19 Range/Units 14:09 16:54 16:55 WBC (4.8-10.8) K/uL RBC (4.2-5.4) M/uL Hgb (12.0-16.0) g/dL Hct (37-47) % MCHC (32-36) g/dL RDW Std Deviation (36.4-46.3) fL RDW Coeff of Yogi (11.5-14.5) % Immature Gran # (Auto) (0.00-0.02) K/uL Neut # (Auto) (1.4-6.5) K/uL Bowman # (Auto) (0.11-0.59) K/uL Absolute Nucleated RBC (0-0) K/uL PT (9.0-12.0) Seconds INR (0.9-1.1) Sodium (136-145) mmol/L Anion Gap (3-11) BUN (7-18) mg/dl Creatinine (0.6-1.2) mg/dl BUN/Creatinine Ratio (10-20) Glucose (70-99) mg/dl POC Glucose 193 H 408 H* 413 H* (70-99) Hemoglobin A1c (4.5-5.6) % 01/18/19 Range/Units 20:15 WBC (4.8-10.8) K/uL RBC (4.2-5.4) M/uL Hgb (12.0-16.0) g/dL Hct (37-47) % MCHC (32-36) g/dL RDW Std Deviation (36.4-46.3) fL RDW Coeff of Yogi (11.5-14.5) % Immature Gran # (Auto) (0.00-0.02) K/uL Neut # (Auto) (1.4-6.5) K/uL Bowman # (Auto) (0.11-0.59) K/uL Absolute Nucleated RBC (0-0) K/uL PT (9.0-12.0) Seconds INR (0.9-1.1) Sodium (136-145) mmol/L Anion Gap (3-11) BUN (7-18) mg/dl Creatinine (0.6-1.2) mg/dl BUN/Creatinine Ratio (10-20) Glucose (70-99) mg/dl POC Glucose 245 H (70-99) Hemoglobin A1c (4.5-5.6) % (1) Hypotension Hypotension type: unspecified hypotension type Qualified Code(s): I95.9 - Hypotension, unspecified
[2019-01-18] MEDS ORDERED: INSULIN GLARGINE SOLOSTAR 100 UNITS/ML 3 ML PEN SQ SCH (21:00)
[2019-01-19] MEDS: ANORO ELLIPTA~ORDER AWAITING ACTION SCH ×3 (00:32→16:06)
[2019-01-19] MEDS: LEVALBUTEROL HCL 1.25 MG/3 ML NEB NEB SCH ×4 (03:55→15:15)
[2019-01-19] MEDS: INSULIN ASPART 100 UNITS/ML 3 ML PEN SC SCH ×3 (04:40→12:21)
[2019-01-19] MEDS: LEVOTHYROXINE SODIUM 125 MCG TABLET PO SCH (06:00)
[2019-01-19] MEDS: HEPARIN SOD (PORCINE) 1000 UNIT/ML 10 ML VIAL IV SCH (07:26)
[2019-01-19] MEDS: SERTRALINE HCL 50 MG TABLET PO SCH (08:10)
[2019-01-19] MEDS: CHOLECALCIFEROL 1,000 UNITS TAB PO SCH (08:10)
[2019-01-19] MEDS: PANTOprazole 40 MG TAB PO SCH (08:10)
[2019-01-19] MEDS: MAGNESIUM OXIDE 400 MG TAB PO SCH (08:10)
[2019-01-19] MEDS: DOCUSATE SODIUM 100 MG CAP PO SCH (08:10)
[2019-01-19] MEDS: ASCORBIC ACID 500 MG TAB PO SCH (08:11)
[2019-01-19] MEDS: VITAMIN B COMPLEX TAB PO SCH (08:11)
[2019-01-19] MEDS: GABAPENTIN 400 MG CAP PO SCH (08:11)
[2019-01-19] MEDS: NYSTATIN POWDER 15GM BTL EXT SCH (08:11)
[2019-01-19] MEDS: MIDODRINE HCL 2.5 MG TAB PO SCH ×3 (08:12→16:09)
[2019-01-19] MEDS ORDERED: predniSONE 20 MG TAB PO SCH (09:00)
--- NOTE | 2019-01-19 11:58 | Fluoroscopy Report ---
FL video swallow HISTORY: Dysphagia. Aspiration. Please schedule per order to assess swallow TECHNIQUE: Video fluoroscopic evaluation of swallowing was performed in the AP and lateral projection s by the speech pathology staff. The patient is fed nectar-thick and thin liquid barium, a barium coa piotr wafer, and barium pudding. FLUOROSCOPY TIME: 2.5 minutes NUMBER OF FLUOROSCOPIC IMAGES: 733 COMPARISON STUDY: None. FINDINGS: Moderately disordered hypopharyngeal motility. Intermittent aspiration and penetration with the right food substances. No significant cough reflex. IMPRESSION: 1. Moderately disordered pharyngeal motility. Intermittent aspiration with variety of right food subs tances. No cough reflex. 2. Please see the speech pathologist report for detailed findings and recommendations. The above report was generated using voice recognition software. It may contain grammatical, syntax or spelling errors. Electronically signed by: Bird Patino M.D. 01/19/2019 11:57 AM
--- NOTE | 2019-01-19 14:58 | Pharmacy Report ---
Pharmacy Glycemic Short Note 2 - Date of Service January 19, 2019 - Glycemic Short BSG Results (Last 24 hours): 01/18/19 01/18/19 01/18/19 16:54 16:55 20:15 POC Glucose 408 H* 413 H* 245 H 01/18/19 01/19/19 01/19/19 23:35 03:51 07:38 POC Glucose 157 H 143 H 143 H 01/19/19 11:42 POC Glucose 205 H OUTPATIENT ANTIDIABETIC REGIMEN: * Lantus 30 units SQ HS ASSESSMENT: 01/19 * Patient received total of 104 units of insulin yesterday, of which 40 units were basal insulin * Fasting BSG this am 143 mg/dL - much improved, however did receive insulin on overnight checks; will adjust Lantus scale slightly for this evening * Changed from solumedrol 40 mg iv daily to prednisone 40 mg daily - BSGs still elevated above goal will tighten CR 01/18 * Patient received total of 138 units of insulin yesterday, of which 45 units were basal insulin * Fasting BSG this am 162 mg/dL - much improved from days prior * Steroids continue to decrease further - changed to solumedrol 40 Q12 to Q24 hr dosing - will further loosen CF/CR this morning * Patient also at dialysis today - no lunchtime BSG available, anticipate will collect after lunch. Patient typically drops significantly after however did not eat before/no carb coverage documented so will need to follow up after they return ; may need to adjust CF/CR since unknown which way BSGs are trending at this time * Will add scale for Lantus for tonight as well as overnight checks 01/17 * 63yo T2DM female known to pharmacy from previous admissions/glycemic consults * Pt with significant steroid induced hyperglycemia from Solumedrol w/o NovoLog ordered. NovoLog scale ordered yesterday per previous admission dosing. * Solumedrol dose decreased from q8hrs to q12hrs but total dose is still >80mg/day therefore likely to yield too much benefit. * Per previous admissions, patient typically requires ~100-140 units of insulin per day while on steroids. Will adjust regimen per previous admissions and titrate based on BSG trends and steroid dosing. Per previous admissions, will use a max dose of 40 units of NovoLog to prevent rebound hypoglycemia when BSG significantly elevated. * BSGs have been fluctuating dramatically. BSG dropped significantly after SQ insulin bolus + HD. Then, CHO coverage held at dinner for "low" BSG. Unfortunately, pt was snacking all night with a friend in the room w/o CHO coverage. BSG bridger back to 341, 294, 340mg/dl this morning. Will not change any orders today since hyperglycemia is accounted for from omitting CHO coverage. Will continue increased basal insulin dosing for RTC steroid induced hyperglycemia PLAN FOR INPATIENT GLYCEMIC CONTROL: * Basal insulin * Lantus with scale for this evening 35-45 units based upon BSG value * Bolus insulin - loosen * NovoLog per scale ACHS or Q6hrs while NPO * Goal Range: Low 100 mg/dL - High 140 mg/dL * Correction Factor: 15 mg/dL/unit * Nutritional / Prandial insulin per carb ratio of 1 unit per 3 grams CHO consumed * MAX dose of NovoLog to be given = 40 units at one time
[2019-01-20] MEDS ORDERED: INSULIN ASPART 100 UNITS/ML 3 ML PEN SC SCH
--- NOTE | 2019-01-22 12:35 | Discharge Summary ---
Date of Service January 20, 2019 Principal Diagnosis ASPIRATION PNEUMONIA /DIALYSIS CATHETER ISSUES Discharge Exam Constitutional WD/WN, vitals as above + ill appearing (Chronically ill appearing); no acute distress Eyes PERRL, conjunctivae normal, anicteric sclerae ENMT external ear and nose normal, oropharynx normal Neck trachea midline, no thyromegaly Respiratory normal respiratory effort, lungs clear to auscultation + cough; no respiratory distress Auscultation: + wheezes (Improved since yesterday) Cardiovascular RRR, no murmur, no edema Gastrointestinal (Abdomen) normal bowel sounds, soft, nontender, no hepatosplenomegaly Musculoskeletal Head/Neck/Chest: + abnormal inspection of chest wall (Diffuse ecchymosis/hematoma on the left anterior chest wall extended from s) Extremities: + extremities abnormal to inspection (perm cath on left ant chest wall /hematoma /ecchymosis has resolved ) Skin Trauma: + hematoma (Anterior left chest wall extending form Permacath insertion site to left si) Neurologic PERRL, EOMI, accommodation nl, no face palsy, no dysarthria Psychiatric A+Ox3, euthymic affect Discharge Data Allergies Allergy/AdvReac Type Severity Reaction Status Date / Time bacitracin Allergy Intermediate RASH,ITCH Verified 01/13/19 06:23 celecoxib Allergy Intermediate RASH TO Verified 01/13/19 06:23 SULFA DRUGS neomycin Allergy Intermediate RASH,ITCH Verified 01/13/19 06:23 polymyxin B Allergy Intermediate RASH,ITCH Verified 01/13/19 06:23 Sulfa (Sulfonamide Allergy Intermediate RASH,HAS Verified 01/13/19 06:23 Antibiotics) TAKEN GLIPIZIDE W/O REACTION tigecycline AdvReac Severe MILD Verified 01/13/19 06:23 PANCREATITIS codeine AdvReac Intermediate GI UPSET Verified 01/13/19 06:23 Consultations 01/13/19 06:15 ED Decision to Admit Stat 01/13/19 09:30 Consult Case Management - Discharge Planning Routine Consult Nephrology Routine Consult Vascular Surgery Routine Procedures Performed Operation Date: 01/13/19 13:25 Actual Procedures p Insertion of Perm Catheter, Left Internal Jugular Approach, Ultrasound Localization of Left Internal Jugular Vein, Fluoroscopy for Positioning; Moderate Sedation From 1403 to 1448. (Left) - Yves Falk MD Ordered Studies 01/13/19 11:21 EV cvc insrt tunnel wo prt/hand surgeon Routine 01/19/19 11:00 FL video swallow Routine Hospital Course (1) Pneumonia: Clinically much improved, hypoxia resolved, minimum cough no fever, BCG Chest x-ray shows progression of consolidation/infiltrate on the right lower lobe, pneumonia, need to rule out aspiration was treated with IV cefepime changed antibiotic to Augmentin complete 7 days treatment Speech pathology consulted to assess for aspiration/dysphagia-appreciate input s/p video swallow study today shows evidence of silent aspiration , diet changed to mechanical soft /slippery diet with delayed swallowing reflex pt is taught "chin tuck " method during swallowing will benefit with home health /home speech therapy pt is agreeable (2) Acute and chronic respiratory failure with hypoxia: Resolved, respiratory status improved to baseline Due to right lower lobe pneumonia/Leading to COPD exacerbation Develop worsening of shortness of breath, hypoxia,On 01/15/2019 IV Solu-Medrol 40 mg every 8 Hours,Dose reduced to every 12 hours as wheeze respiratory distress has significantly improved transitioned to p.o. prednisone 40 mg daily 01/17/2019 Added cefepime to 50 mg every 24 hour (renally dosed/for broader coverage, covering anaerobes for possible aspiration chest x-ray 01/15/2019 1. Interval placement of a left-sided central venous catheter. No evidence of pneumothorax Clinic medically most clinically much improved, will change to p.o. Augmentin prior to discharge home tomorrow 2. Slight worsening in the right lower lobe atelectasis/consolidation. Suspected small right pleural effusion speech therapy consulted and appreciate input s/p VFSS study , report and management as above (3) COPD (chronic obstructive pulmonary disease): Developed COPD exacerbation with hypoxia dyspnea on exertion, audible wheeze Due to right lower lobe pneumonia Respiratory status improved with nebulizer treatment IV Solu-Medrol, antibiotic on p.o. prednisone taper respiratory status improved to baseline stable to be discharged home today (4) ESRD (end stage renal disease) on dialysis: End-stage renal disease on dialysis Patient is on dialysis Friday /sat [facility] left chest wall new perm cath placed by Vascular surgery this Admission Appreciate input from nephrology, electrolytes has been stable no sign of volume overload pt will continued out pt dialysis new perm cath placed on -functioning without any complications (5) Steroid-induced hyperglycemia: BSG elevated more than 300, possible secondary to IV steroids given for COPD exacerbation on p.o. prednisone taper Patient is continued with the basal landed 30 units twice daily, added insulin sliding scale with correction factor of 20,/ carb ratio 10/ goal blood sugar [id number] Pharmacy consulted for glycemic management-appreciate input blood sugars improved steroid is tapered down (6) Complication of vascular access for dialysis: Patient was sent from dialysis unit, as her PermCath was missing Patient reports possibly due to PermCath fell off overnight, she did not notice any pain or discomfort, no bleeding Did not had any dialysis earlier this week from PermCath complication/bleeding New PermCath placed by Dr. Falk, underwent dialysis with out any complication appreciate input from nephrology, Patient will need evaluation for AV graft for dialysis access in the future (7) Hemodialysis patient: End-stage renal disease on dialysis Friday,/sat Permacath placed this admission status post dialysis without any complication (8) DM type 2 (diabetes mellitus, type 2): Insulin-dependent, complete diabetic nephropathy leading to end-stage renal disease on dialysis Patient is continued with basal Lantus 30 units twice daily Insulin sliding scale added for steroid-induced hyperglycemia Pharmacy consulted for glycemic management-appreciate input-appreciate input (9) Hemorrhage from dialysis catheter: Bleeding from permacath earlier last week, unable to dialysis PermCath dislodged/fell over New permacath placed, area secured with sutures-No bleeding noted Underwent successful dialysis without any complication (10) Atrial fibrillation: Chronic A. fib rate controlled continue home meds On Coumadin for stroke prophylaxis (11) HLD (hyperlipidemia): On statin (12) Neuropathy: Gabapentin CODE STATUS: Full code (13) Depression: Continue antidepressant (14) Hypothyroidism: On levothyroxine DVT prophylaxis: On Coumadin INR therapeutic Disposition: Doing well clinically, stable to be discharge home with home health today patient is already established with [facility] care Total Time Total Time Spent Total Time Spent (In Minutes): approx 45 mins Total Time Includes: Examination of the Patient, Discharge Planning and Medication Reconciliation Discharge Plan Discharge Items Patient Disposition: Home - Home Health Services Reason For Visit: DIALYSIS CATH PLACEMENT Discharge Diagnosis: RIGHT SIDED PNEUMONIA /DIALYSIS CATH PLACEMENT /DIFFICULTY IN SWALLOWING Discharge Goals: Decrease discomfort Activity: Resume your previous activity Non-emergency contact: Primary Care Provider Call non-emergency contact if: you have any medication questions Follow-up/Referrals: Narendra Gonzalez MD [Primary Care Provider] - 01/26/19 12:25 pm Diet: Dialysis Renal and Heart Healthy Add Provider Instructions: WOUND CARE NURSE TO EVALUATE AND TREAT BUTTOCK WOUND AT HOME PATIENT WILL BENEFIT FROM CONTINUED SPEECH/SERVICE AFTER DISCHARGE FOR CARRYOVER OF DIET AND SAFE SWALLOW STRATEGIES. Patient demonstrates mildmoderate oropharyngeal dysphagia Also has signs symptom of esophageal dysfunction which increases risk of aspiration leading to recurrent-hospital admission with aspiration/right-sided pneumonia DIET RECOMMENDATIONS PER SPEECH THERAPY AT [facility]: 1. Moist advance diet (mechanical soft /"Slippery" Avoid food that are dry, thick, pasty, Add extra gave gravy and sauce to keep food moist Can have thin liquid/water/juice Use chin tuck while swallowing Do not use straw 2. Small frequent meals No no no no guarding 3. Safe swallow strategies. Will need assistance with eating. Small single sips from the cup. Complete chin tuck sequence: Small single sips, hold liquid in the mouth, chin touching to the chest, swallow when while chin is down. Prescriptions: New amoxicillin-pot clavulanate [Augmentin] 500-125 mg tablet 1 tab PO DAILY 7 Days Qty: 7 RF: 0 Continued hydrocodone-acetaminophen 5-325 mg tablet 1 tab PO Q6H PRN (Reason: Pain) RF: 0 sertraline [Zoloft] 100 mg tablet 150 mg PO DAILY RF: 0 atorvastatin 40 mg tablet 40 mg PO HS RF: 0 insulin glargine [Lantus Solostar U-100 Insulin] 100 unit/mL (3 mL) insulin pen 30 units SQ HS RF: 0 metoprolol succinate 25 mg capsule,sprinkle,ER 24hr 25 mg PO HS RF: 0 gabapentin 400 mg capsule 400 mg PO BID RF: 0 levothyroxine [Levo-T] 125 mcg tablet 125 mcg PO QAM RF: 0 albuterol sulfate 90 mcg/actuation HFA aerosol inhaler 2 puffs INH Q6H PRN (Reason: Shortness Of Breath) RF: 0 magnesium oxide 400 mg (241.3 mg magnesium) tablet 400 mg PO DAILY RF: 0 pantoprazole [Protonix] 20 mg tablet,delayed release (DR/EC) 20 mg PO QAM RF: 0 albuterol sulfate 2.5 mg /3 mL (0.083 %) solution for nebulization 1.25 mg INH Q4H PRN (Reason: Shortness Of Breath Or Wheezing) RF: 0 ascorbic acid (vitamin C) 500 mg capsule 500 mg PO DAILY RF: 0 cholecalciferol (vitamin D3) 1,000 unit capsule 1,000 units PO DAILY RF: 0 lorazepam 0.5 mg Tablet 0.5 mg PO UD PRN (Reason: Anxiety) RF: 0 prednisone 5 mg Tablet 5 mg PO DAILY RF: 0 docusate sodium [Colace] 100 mg Capsule 100 mg PO BID RF: 0 nystatin 100,000 unit/gram Powder 1 applic TOPICAL BID RF: 0 Anoro Ellipta 62.5-25 mcg/actuation Blister With Device 1 inh INHALATION DAILY RF: 0 warfarin 5 mg tablet 5 mg PO UD RF: 0 Renal Vitamin 0.8 mg Tablet 1 tab PO DAILY RF: 0 Probiotic 3 billion cell Capsule 3,000 mmu cells PO DAILY RF: 0 midodrine 5 mg tablet 5 mg PO TID RF: 0 Stand-Alone Forms: [facility] Discharge Orders: Discharge Order (Routine); Ordered 01/19/19 Ordered By: Janice Mello Admission Data Admit Date/Time: 01/15/19 15:25 Attending Provider: Janice Mello Admit Provider: Levi Partida Primary Care Provider: Narendra Gonzalez Other Providers: Yan Conti ; Levi Partida ; Hansa Ya ; Glen Piper ; Jeremiah Houston I ; Lamar Maldonado ; Sarah Amaro Japheth E. ; Yves Falk Service: Telemetry Medical Other Interventions: Discharge Summary Assessment (RN) Last Done: 01/19/19 16:32 DC Date/Time DO NOT enter until pt leaves facility: 01/19/19 17:31
== END 2019-01-19 17:31 | disposition home health service (06) | DRG 314 ==
LOC: 2N 05:47 → ED 05:47 → SUATTDRO 06:31 → 2N 07:08
DX: I95.3 Hypotension of hemodialysis; I27.20 Pulmonary hypertension, unspecified; E03.9 Hypothyroidism, unspecified; E11.22 Type 2 diabetes mellitus with diabetic chronic kidney disease; Z84.2 Family history of other diseases of the genitourinary system; T38.0X5A Adverse effect of glucocorticoids and synthetic analogues, initial encounter; I50.9 Heart failure, unspecified; Y92.239 Unspecified place in hospital as the place of occurrence of the external cause; J96.21 Acute and chronic respiratory failure with hypoxia; E66.2 Morbid (severe) obesity with alveolar hypoventilation; Y83.1 Surgical operation with implant of artificial internal device as the cause of abnormal reaction of the patient, or of later complication, without mention of misadventure at the time of the procedure; I50.812 Chronic right heart failure; Z68.37 Body mass index [BMI] 37.0-37.9, adult; T82.42XA Displacement of vascular dialysis catheter, initial encounter; Y92.009 Unspecified place in unspecified non-institutional (private) residence as the place of occurrence of the external cause; J44.0 Chronic obstructive pulmonary disease with (acute) lower respiratory infection; J69.0 Pneumonitis due to inhalation of food and vomit; I48.2 Chronic atrial fibrillation; E11.43 Type 2 diabetes mellitus with diabetic autonomic (poly)neuropathy; J44.1 Chronic obstructive pulmonary disease with (acute) exacerbation; L89.309 Pressure ulcer of unspecified buttock, unspecified stage; Z79.01 Long term (current) use of anticoagulants; X50.9XXA Other and unspecified overexertion or strenuous movements or postures, initial encounter; T82.838A Hemorrhage due to vascular prosthetic devices, implants and grafts, initial encounter; Z99.81 Dependence on supplemental oxygen; N18.6 End stage renal disease; J90 Pleural effusion, not elsewhere classified

== ENCOUNTER 2019-02-04 17:45 | Inpatient (IN) ==
[2019-02-04] MEDS ORDERED: SODIUM CHLORIDE 0.9% 500 ML IV SCH (18:15)
[2019-02-04] MEDS ORDERED: POTASSIUM CHLORIDE 10 MEQ TABCR PO STA (18:36)
--- NOTE | 2019-02-04 18:40 | CT Scan Report ---
CT abd pelvis wo con CT DOSE: 1118.78 mGy.cm HISTORY: Pain rlq pain eval for appe TECHNIQUE: Multiaxial CT images of the abdomen and pelvis were performed without contrast. A dose lo wering technique was utilized adhering to the principles of ALARA. COMPARISON STUDY: 08/12/2018 focal retention FINDINGS: Focal consolidative infiltrate right base somewhat increased in prominence in the prior exa m. Radiopaque contents within the bronchial tree of the right base suggesting aspiration. Minimal dep endent atelectasis left base. The liver spleen and pancreas are unremarkable. Prior cholecystectomy. Atrophy of the kidneys. Left renal hyperdense nodules unchanged from the prior exam. No evidence for renal hydronephrosis. Nonobstructive bowel pattern. Normal appendix. Chronic subcutaneous fat infiltrative changes of the r ight and to lesser extent left flank. Small fat-containing ventral hernia unchanged from the prior st udy. Infiltrative changes of the anterior abdominal wall subcutaneous fat presumably secondary to inés or injections. Retroflexed uterus containing fibroid involvement. IMPRESSION: 1. Progressive consolidative infiltrate right base suggesting chronic aspiration. 2. Hyperdense material within the tracheobronchial tree right base suggesting aspiration, possibly on a prior video swallow procedure. 3. Incidental findings throughout the abdomen and pelvis including renal atrophy unchanged from the p rior exam. 4. Hyperdense nodules of the left kidney procedure described are unchanged. 5. Nonobstructive bowel pattern. 6. Fibroid uterus unchanged The above report was generated using voice recognition software. It may contain grammatical, syntax or spelling errors. Electronically signed by: Bird Patino M.D. 02/04/2019 6:39 PM
[2019-02-04 18:44] LABS: Basophils # (auto) 0.05 K/uL (0-0.2); Basophils % (auto) 0.2 %; Eosinophils # (auto) 0.03 K/uL (0-0.5); Eosinophils % (auto) 0.1 %; Hematocrit (blood only) 36.4 % (37-47); Hemoglobin 11.7 g/dL (12.0-16.0); Immature Granulocytes # (auto) 0.31 K/uL (0.00-0.02); Immature Granulocytes % (auto) 1.5 %; Lymphocytes # (auto) 1.08 K/uL (1.2-3.4); Lymphocytes % (auto) 5.2 %; Mean Corpuscular Hgb Conc 32.1 g/dL (32-36); Mean Corpuscular Volume 93.1 fL (80-100); Mean Platelet Volume 10.2 fL (7.4-10.4); Monocytes # (auto) 1.45 K/uL (0.11-0.59); Neutrophils # (auto) 17.77 K/uL (1.4-6.5); Nucleated RBC # (auto) 0.11 K/uL (0-0); Nucleated RBC % (auto) 0.5 %; Platelet Count 233 K/uL (130-400); RDW Coefficient of Variation 21.9 % (11.5-14.5); RDW Standard Deviation 71.9 fL (36.4-46.3); Red Blood Count 3.91 M/uL (4.2-5.4); White Blood Count 20.69 K/uL (4.8-10.8)
[2019-02-04] MEDS ORDERED: PIPERACILLIN/TAZOBACTAM 4.5 GM/120 ML BAG IV STA (18:57)
[2019-02-04] MEDS ORDERED: SODIUM CHLORIDE 0.9% 1000ML 500 ML IV ONE (19:01)
[2019-02-04] MEDS ORDERED: VANCOMYCIN HCL 2,000 MG in SODIUM CHLORIDE 0.9% 500 ML IV STA (19:02)
[2019-02-04 19:04] LABS: Partial Thromboplastin Ratio 2.1; Prothrombin Time 60.4 Seconds (9.0-12.0)
[2019-02-04 19:08] LABS: INR 6.8 (0.9-1.1); Partial Thromboplastin Time 57.8 Seconds (21.0-31.0)
[2019-02-04 19:11] LABS: Albumin Globulin Ratio 0.6 (0.9-2); Albumin Level 2.5 gm/dl (3.4-5.0); BUN Creatinine Ratio 7.4 (10-20); Bilirubin,Total 0.4 mg/dl (0.2-1); Calcium 8.8 mg/dl (8.5-10.1); Creatinine Clr Calc Pharmacy 13.6 ml/min; Est GFR (African American) 10.8; Est GFR (Non-African American) 9.4; Globulin 4.4 gm/dl (2.5-4.0); Potassium 5.6 mmol/L (3.5-5.1); Total Protein 6.9 gm/dl (6.4-8.2)
[2019-02-04] MEDS ORDERED: PHYTONADIONE 2.5 MG in SODIUM CHLORIDE 0.9% 50 ML IV ONE (19:12)
--- NOTE | 2019-02-04 19:12 | XRay Report ---
XR chest 1V portable CLINICAL HISTORY: evalm for pna dyspnea COMPARISON STUDY: 01/15/2019 FINDINGS: Mild stable cardia megaly. Central catheter remains in the vena cava. Slight bibasilar inte rstitial prominence unchanged. Upper lungs are clear. IMPRESSION: Chronic and postoperative change. Mild stable cardiomegaly. The above report was generated using voice recognition software. It may contain grammatical, syntax or spelling errors. Electronically signed by: Bird Patino M.D. 02/04/2019 7:11 PM
[2019-02-04 19:33] LABS: Anisocytosis Present; Polychromasia 1+; Tear Drop Cells 1+
[2019-02-04] MEDS: POTASSIUM CHLORIDE / WTR 10 MEQ/100 ML PLCT IV ONE ×2 (19:40→19:53)
[2019-02-04 19:49] LABS: Magnesium 2.6 mg/dl (1.8-2.4)
[2019-02-04] MEDS ORDERED: INSULIN HUMAN REGULAR PER UNIT 5 UNITS in SYRINGE 0 ML IV STA (19:51)
--- NOTE | 2019-02-04 20:35 | History & Physical Report ---
Date of Service February 04, 2019 Assessment & Plan (1) Aspiration pneumonia: (2) Hypoxia: Recent admission 01/13/19-01/20/19 in which developed worsening SOB and hypoxia and CXR with progression of consolidation/infiltrate RLL and pt with suspected aspiration PNA. Pt with hx silent aspiration seen on video swallow study on 01/19/19. Today in ER T:36.4, P: 79-101, R: 22, BP: 62/42 up to 86/38, sats drop to high 80's on chronic 4L oxygen NC WBC: 20, reported POC lactic acid elevated (unable to locate actual numerical amount) CT ABD/PELVIS: Progressive consolidative infiltrate right base suggesting chronic aspiration. Hyperdense material within the tracheobronchial tree right base suggesting aspiration, possibly on a prior video swallow procedure. CXR: Chronic and postoperative change. Mild stable cardiomegaly. In ER was given vancomycin, zosyn (3) Obesity hypoventilation syndrome: (4) COPD (chronic obstructive pulmonary disease): Hx chronic respiratory failure on 4-5L oxygen NC Uses bipap HS In ER pt noted to have sat's drop to high 80's on 4L NC -On albuterol and anoro ellipta at home (5) Abdominal pain: Pt presented with c/o abdominal pain x 2-3 days. Denies fever/chills, N/V/D/C. CT ABD/PELVIS: Incidental findings throughout the abdomen and pelvis including renal atrophy unchanged from the prior exam. Hyperdense nodules of the left kidney procedure described are unchanged. Nonobstructive bowel pattern. Fibroid uterus unchanged (6) Hypotension: Chronic hypotension. On midodrine In ER BP: 64/42-86/38 In ER pt given total 1L NSS (7) Hyperkalemia: K: 5.6 In ER pt was given potassium chloride 20meq po and 10meq IV was started, however was able to be discontinued upon request in ER Pt last dialysis was yesterday 02/03/19 (8) Supratherapeutic INR: (9) Atrial fibrillation: Chronic a-fib on coumadin INR: 6.8 In ER given Vitamin K 2.5mg IV (10) DM type 2 (diabetes mellitus, type 2): A1C: 8.8 on 01/17/19 Glucose:189 -on lantus and novolog sliding scale at home (11) ESRD (end stage renal disease) on dialysis: On MWF schedule Last dialysis 02/03/19 (12) Depression: On sertraline (13) Hypothyroidism: On levothyroxine Pt was seen with Dr Mcconnell. History and physical as below. See Dr Mcconnell's addendum for Assessment and plan History of Present Illness Chief Complaint: Abdominal pain Primary Care Provider: Narendra Gonzalez MD Pt is 63 y/o F with PMH chronic hypoxic respiratory failure on 4-5L [place], obesity hypoventilation syndrome, uses Bipap HS, pulmonary hypertension, chronic right heart failure, atrial fibrillation on Coumadin, ESRD on HD, DM II, chronic hypotension, HLD, hypothyroidism presented to ER with C/O abdominal pain x 2-3 days. Pt c/o intermittent burning type sensation also across her breasts x 2-3 days. Denies any current pain. Pt was concerned she may have cellulitis as the pain felt similar, however has not had any skin erythema. Pt reports hx varicose veins to abdomen and thinks this is causing her abdominal pain. Pt states today felt more SOB, however feels less SOB since being in ER. Pt's daughter states that pt is always "hunched over", even with eating. Denies any noted choking r ecently. Pt initially denies cough, however is noted to have cough productive white sputum while in ER which she reports is chronic. Daughter also reports that pt seems to be having more anxiety and anxiety attacks in which she gets anxious and SOB and pt's daughter has to instruct her to calm down and focus on her breathing and symptoms resolve. Has ativan to use, but reports doesn't use often. reports buttock sore that have been applying aquacel to with some improvement. Denies fever/chills, diaphoresis, N/V/D/C, ARNOLD, dizziness, syncope, vision changes, neck pain, orthopnea, palpitations, hemoptysis, sore throat, otalgia, rhinorrhea, increased weakness, increased extremity edema, other rashes. History admission 01/13/19-01/20/19 for permacath dislodgement and replacement. During admission pt developed worsening SOB and hypoxia and CXR with progression of consolidation/infiltrate RLL and pt with suspected aspiration PNA. Was initially treated with IV cefepime then transitioned to Augmentin to complete 7 day course. Was also given Solumedrol then transitioned to oral prednisone. Had video swallow study: moderate disordered pharyngeal motility, intermittent aspiration and diet of mechanical soft /slippery diet and was taught "chin tuck " method during swallowing Allergies Allergy/AdvReac Type Severity Reaction Status Date / Time bacitracin Allergy Intermediate RASH,ITCH Verified 01/13/19 06:23 celecoxib Allergy Intermediate RASH TO Verified 01/13/19 06:23 SULFA DRUGS neomycin Allergy Intermediate RASH,ITCH Verified 01/13/19 06:23 polymyxin B Allergy Intermediate RASH,ITCH Verified 01/13/19 06:23 Sulfa (Sulfonamide Allergy Intermediate RASH,HAS Verified 01/13/19 06:23 Antibiotics) TAKEN GLIPIZIDE W/O REACTION tigecycline AdvReac Severe MILD Verified 01/13/19 06:23 PANCREATITIS codeine AdvReac Intermediate GI UPSET Verified 01/13/19 06:23 Home Medications Home Medications Medication Instructions Recorded Confirmed Type albuterol sulfate 2.5 mg/3 mL 1.25 mg INH Q4H PRN 06/01/18 02/04/19 History (0.083 %) solution for nebulization albuterol sulfate HFA 90 2 puffs INH Q6H PRN 06/01/18 02/04/19 History mcg/actuation aerosol inhaler ascorbic acid (vitamin C) 500 mg 500 mg PO DAILY cap 06/01/18 02/04/19 History capsule atorvastatin 40 mg tablet 40 mg PO HS 06/01/18 02/04/19 History cholecalciferol (vitamin D3) 1,000 1,000 units PO DAILY 06/01/18 02/04/19 Histo ry unit capsule hydrocodone 5 mg-acetaminophen 325 1 tab PO Q6H PRN 06/01/18 02/04/19 History mg tablet insulin glargine (U-100) 100 30 units SQ HS 06/01/18 02/04/19 History unit/mL (3 mL) subcutaneous pen levothyroxine 125 mcg tablet 125 mcg PO QAM 06/01/18 02/04/19 History magnesium oxide 400 mg (241.3 mg 400 mg PO DAILY tab 06/01/18 02/04/19 History magnesium) tablet metoprolol succinate ER 25 mg 12.5 mg PO DAILY 06/01/18 02/04/19 History capsule sprinkle, ext. release 24 hr pantoprazole 20 mg tablet,delayed 20 mg PO QAM 06/01/18 02/04/19 History release sertraline 100 mg tablet 150 mg PO PM tab 06/01/18 02/04/19 History Anoro Ellipta 1 inh INHALATION DAILY 06/22/18 02/04/19 History docusate sodium [Colace] 100 mg PO BID 06/22/18 02/04/19 History nystatin 1 applic TOPICAL BID 06/22/18 02/04/19 History prednisone 5 mg PO DAILY 06/22/18 02/04/19 History lorazepam 0.5 mg PO UD PRN 07/15/18 02/04/19 History warfarin 5 mg PO UD 08/12/18 02/04/19 History Probiotic 3,000 mmu cells PO DAILY 01/11/19 02/04/19 History Renal Vitamin 1 tab PO DAILY 01/11/19 02/04/19 History midodrine 5 mg PO UD 01/11/19 02/04/19 History calcium acetate 2,668 mg PO TIDM 02/04/19 02/04/19 History cyanocobalamin (vitamin B-12) 1,000 mcg PO DAILY 02/04/19 02/04/19 History gabapentin 300 mg PO UD 02/04/19 02/04/19 History insulin aspart U-100 [Novolog 15 unit SUBCUT UD 02/04/19 02/04/19 History Flexpen U-100 Insulin] Past Med/Surg History Medical History Chronic knee pain (Chronic) COPD exacerbation (Resolved) Sleep apnea (Chronic) Chronic anemia (Chronic) Pneumonia (Acute) Generalized weakness (Resolved) Iron (Fe) deficiency anemia (Chronic) Morbid obesity (Chronic) Obesity hypoventilation syndrome (Chronic) Pressure ulcer Atrial fibrillation (Chronic) Pulmonary HTN (Chronic) COPD (chronic obstructive pulmonary disease) (Chronic) DM type 2 (diabetes mellitus, type 2) (Chronic) HTN (hypertension) (Chronic) RHF (right heart failure) (Chronic) Chronic respiratory failure with hypoxia (Chronic) ESRD (end stage renal disease) on dialysis (Chronic) Hypothyroidism (Chronic) Depression (Chronic) HLD (hyperlipidemia) (Chronic) Neuropathy (Chronic) Diabetic gastroparesis (Chronic) H/O deep venous thrombosis (Resolved) ESRD (end stage renal disease) on dialysis (Inactive) Surgical History History of tracheostomy History of hernia repair (Resolved) Status post laparoscopic cholecystectomy (Resolved) S/P debridement (Chronic) "08/30/2016- debridement bilateral lower extremity and buttock wounds" Hx of cholecystectomy (Resolved) Family History Other CKD (chronic kidney disease) Coronary heart disease Social History Preferred Language: Vietnamese Communication Ability: Effective Beliefs That Will Affect Care: None marital status: Current Living Situation: Spouse Feels Safe at Home: Yes Smoking Status: Former smoker Tobacco Type: cigarettes Cigarettes Per Day: 40 Second Hand Exposure: No Hx Alcohol Use: No Hx Substance Use: No Review of Systems Review of Systems: All systems reviewed & are unremarkable except as noted in HPI & below Physical Exam Physical Exam: General: chronic ill appearing, obese, on 4L oxygen [place] Head: normocephalic, atraumatic Eyes: PERRL, EOM's intact, conjunctiva non-injected, anicteric ENT: normal inspection external ears, nose, mucous membranes moist Neck: supple, trachea midline Lungs: able to speak in full sentences, no retractions, On 4L oxygen [place] with O2 sat 89%, diminished breath sounds throughout, +rhonchi CV: irregularly irregular, rate 100 Chest: under breasts with faint erythema, remaining chest without rashes noted, +tenderness to palpation entire chest Abd: normal BS, soft, diffuse tenderness to palpation Ext: BLE with chronic skin changes of mild redness and mild edema, no calf tenderness Neuro: A&O x 3, no focal deficits noted, normal affect Skin: warm, dry, skin on chest and extremities as above Results & Data Vital Signs (Past 12 Hours) Vital Signs Temp Pulse Pulse Resp BP BP Pulse Ox 02/04/19 20:06 96 H 23 98/62 L 86 L 02/04/19 20:05 107 H 21 87 L 02/04/19 20:01 103 H 15 89 L 02/04/19 20:00 100 H 14 90 02/04/19 19:50 99 H 20 97 02/04/19 19:46 99 H 21 91/56 L 98 02/04/19 19:40 105 H 19 95 02/04/19 19:31 107 H 23 93 02/04/19 19:30 105 H 21 94 02/04/19 19:20 102 H 19 96 02/04/19 19:16 101 H 22 83/57 L 97 02/04/19 19:10 103 H 22 97 02/04/19 19:02 103 H 18 80/60 L 99 02/04/19 19:00 100 H 22 97 02/04/19 18:50 111 H 17 91 02/04/19 18:46 74/56 L 02/04/19 18:44 101 H 26 H 86/38 L 02/04/19 18:41 98 H 24 86/38 L 02/04/19 18:40 99 H 24 02/04/19 18:32 97 H 16 02/04/19 18:20 104 H 20 02/04/19 18:17 110 H 27 H 02/04/19 18:16 108 H 14 70/43 L 02/04/19 18:11 102 H 19 69/39 L 02/04/19 18:09 98 02/04/19 17:55 36.4 C L 79 22 64/42 L 98 Laboratory Results Short CBC 02/04/19 Range/Units 18:16 WBC 20.69 H (4.8-10.8) K/uL Hgb 11.7 L (12.0-16.0) g/dL Hct 36.4 L (37-47) % Plt Count 233 (130-400) K/uL BMP 02/04/19 18:16 Sodium 128 L Potassium 5.6 H Chloride 96 L Carbon Dioxide 19 L BUN 34 H Creatinine 4.62 H* Glucose 189 H Calcium 8.8 Liver Function 02/04/19 Range/Units 18:16 Total Bilirubin 0.4 (0.2-1) mg/dl AST 30 (15-37) U/L ALT 28 (12-78) U/L Alkaline Phosphatase 167 H (45-117) U/L Albumin 2.5 L (3.4-5.0) gm/dl Diagnostic Findings CXR: IMPRESSION: Chronic and postoperative change. Mild stable cardiomegaly. CT ABD/PELVIS: IMPRESSION: 1. Progressive consolidative infiltrate right base suggesting chronic aspiration. 2. Hyperdense material within the tracheobronchial tree right base suggesting aspiration, possibly on a prior video swallow procedure. 3. Incidental findings throughout the abdomen and pelvis including renal atrophy unchanged from the prior exam. 4. Hyperdense nodules of the left kidney procedure described are unchanged. 5. Nonobstructive bowel pattern. 6. Fibroid uterus unchanged Supervising Physician Co-Signing Physician Notes IM ATTENDING : Patient seen and examined. History obtained from patient and records. Preceding documentation by Ms. Otilia Lim PA-C reviewed. FINAL ASSESSMENT AND PLAN as follows : Acute on chronic respiratory failure secondary to steroid dependent COPD exacerbation secondary to HCAP Possible recurrent aspiration Severe sepsis SIRS plus lactic acid elevation plus hypoxemia secondary to above History chronic hypotension on midodrine Patient with intermittent hypotensive episodes at the ER. Hyponatremia secondary to illness Hyperkalemia secondary to chronic kidney disease A. fib on Coumadin, rate slightly uncontrolled, INR supratherapeutic DM 2, insulin requiring, suboptimal control as of recent hemoglobin A1c of 8.8 this month ESRD on HD Past tobacco abuse Medical telemery Supplemental O2 Baseline ABG Cultures, follow lactic acid Careful correction of sodium IV Zosyn, Vancomycin for H CAP Repeat swallow evaluation RE recurrent aspiration IV Solu-Medrol 1 dose for possible adrenal insufficiency Prednisone 40 mg daily for now, nebs RTC for bronchospasm causing hypoxemia Pulmonary consult RE respiratory failure Nephrology consult RE dialysis management Basal insulin, ISS BG goal 140-180, carb count coverage May need Pharmacy glycemic control consultation DVT prophylaxis. Coumadin INR goal between 2 and 3 Full code (1) DM type 2 (diabetes mellitus, type 2) Diabetes mellitus complication detail: with polyneuropathy Diabetes mellitus complication status: with neurologic complications Diabetes mellitus mcc insulin use: with mcc use Qualified Code(s): E11.42 - Type 2 diabetes mellitus with diabetic polyneuropathy; Z79.4 - long-term (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 (2) Atrial fibrillation Atrial fibrillation type: paroxysmal Qualified Code(s): I48.0 - Paroxysmal atrial fibrillation (3) Depression Depression Type: unspecified Qualified Code(s): F32.9 - Major depressive disorder, single episode, unspecified (4) Hypothyroidism Hypothyroidism type: unspecified Qualified Code(s): E03.9 - Hypothyroidism, unspecified (5) Aspiration pneumonia Aspiration pneumonia type: unspecified Laterality: unspecified laterality Lung location: unspecified part of lung Qualified Code(s): J69.0 - Pneumonitis due to inhalation of food and vomit (6) COPD (chronic obstructive pulmonary disease) COPD type: emphysema Emphysema type: unspecified Qualified Code(s): J43.9 - Emphysema, unspecified (7) Hypotension Hypotension type: unspecified hypotension type Qualified Code(s): I95.9 - Hypotension, unspecified
[2019-02-04] MEDS ORDERED: INSULIN HUMAN REGULAR PER UNIT 10 UNITS in SYRINGE 9.9 ML IV ONE (20:45)
[2019-02-04] MEDS ORDERED: XOPENEX/ATROVENT 1.25mg/0.5MG NEB COMBO NEB STA (20:46)
[2019-02-04] MEDS ORDERED: MIDODRINE HCL 2.5 MG TAB PO STA (20:46)
[2019-02-04] MEDS ORDERED: LEVALBUTEROL 1.25MG/0.5ML NEB INH STA (20:53)
[2019-02-04] MEDS ORDERED: IPRATROPIUM BROMIDE NEB SOLN 0.02% 2.5 ML VIAL INH STA (20:54)
--- NOTE | 2019-02-04 21:17 | Emergency Department Note ---
Entered by Evaristo Sevilla acting as a scribe for Yaya Soto MD History of Present Illness General Chief complaint: Abdominal Pain Stated complaint: R SIDE PAIN, BURNING, DOC REF Source: patient Mode of arrival: ambulatory History of Present Illness Provider complaint: Abdominal Pain Onset (ago): day(s) 3 Location: abdomen Pain Consistency: + constant Maximum Pain Intensity: 8 Current Pain Intensity: 8 Associated symptoms: + chest pain and + shortness of breath Patient is a a 63 year old female who presents herself to the ER with complaints of abdominal pain beginning three days ago. Patient has been specifically having pain in the right side of the abdomen region. She also has been feeling, "burnin g" sensation in skin. Earlier today she was at [facility] where the patient had low blood pressure and was experiencing the same abdominal pain symptoms. The patient was referred to the ER as it was suspected the patient may have appendicitis. Patient also states she is on dialysis with her most recent treatment being this Friday. Patient states her last bowel movement was yesterday. Patient rates her pain constant in nature at a value of 8 on the pain intensity scale. Patient has been experiencing accompanied symptoms of chest pain and shortness of breath. Home Medications Home Medications Medication Instructions Recorded Confirmed Type albuterol sulfate 2.5 mg/3 mL 1.25 mg INH Q4H PRN 06/01/18 02/04/19 History (0.083 %) solution for nebulization albuterol sulfate HFA 90 2 puffs INH Q6H PRN 06/01/18 02/04/19 History mcg/actuation aerosol inhaler ascorbic acid (vitamin C) 500 mg 500 mg PO DAILY cap 06/01/18 02/04/19 History capsule atorvastatin 40 mg tablet 40 mg PO HS 06/01/18 02/04/19 History cholecalciferol (vitamin D3) 1,000 1,000 units PO DAILY 06/01/18 02/04/19 History unit capsule hydrocodone 5 mg-acetaminophen 325 1 tab PO Q6H PRN 06/01/18 02/04/19 History mg tablet insulin glargine (U-100) 100 30 units SQ HS 06/01/18 02/04/19 History unit/mL (3 mL) subcutaneous pen levothyroxine 125 mcg tablet 125 mcg PO QAM 06/01/18 02/04/19 History magnesium oxide 400 mg (241.3 mg 400 mg PO DAILY tab 06/01/18 02/04/19 History magnesium) tablet metoprolol succinate ER 25 mg 12.5 mg PO DAILY 06/01/18 02/04/19 History capsule sprinkle, ext. release 24 hr pantoprazole 20 mg tablet,delayed 20 mg PO QAM 06/01/18 02/04/19 History release sertraline 100 mg tablet 150 mg PO PM tab 06/01/18 02/04/19 History Anoro Ellipta 1 inh INHALATION DAILY 06/22/18 02/04/19 History docusate sodium [Colace] 100 mg PO BID 06/22/18 02/04/19 History nystatin 1 applic TOPICAL BID 06/22/18 02/04/19 History prednisone 5 mg PO DAILY 06/22/18 02/04/19 History lorazepam 0.5 mg PO UD PRN 07/15/18 02/04/19 History warfarin 5 mg PO UD 08/12/18 02/04/19 History Probiotic 3,000 mmu cells PO DAILY 01/11/19 02/04/19 History Renal Vitamin 1 tab PO DAILY 01/11/19 02/04/19 History midodrine 5 mg PO UD 01/11/19 02/04/19 History calcium acetate 2,668 mg PO TIDM 02/04/19 02/04/19 History cyanocobalamin (vitamin B-12) 1,000 mcg PO DAILY 02/04/19 02/04/19 History gabapentin 300 mg PO UD 02/04/19 02/04/19 History insulin aspart U-100 [Novolog 15 unit SUBCUT UD 02/04/19 02/04/19 History Flexpen U-100 Insulin] Allergies Allergy/AdvReac Type Severity Reaction Status Date / Time bacitracin Allergy Intermediate RASH,ITCH Verified 01/13/19 06:23 celecoxib Allergy Intermediate RASH TO Verified 01/13/19 06:23 SULFA DRUGS neomycin Allergy Intermediate RASH,ITCH Verified 01/13/19 06:23 polymyxin B Allergy Intermediate RASH,ITCH Verified 01/13/19 06:23 Sulfa (Sulfonamide Allergy Intermediate RASH,HAS Verified 01/13/19 06:23 Antibiotics) TAKEN GLIPIZIDE W/O REACTION tigecycline AdvReac Severe MILD Verified 01/13/19 06:23 PANCREATITIS codeine AdvReac Intermediate GI UPSET Verified 01/13/19 06:23 Past Med/Surg History Medical History Chronic knee pain (Chronic) COPD exacerbation (Resolved) Sleep apnea (Chronic) Chronic anemia (Chronic) Pneumonia (Acute) Generalized weakness (Resolved) Iron (Fe) deficiency anemia (Chronic) Morbid obesity (Chronic) Obesity hypoventilation syndrome (Chronic) Pressure ulcer Atrial fibrillation (Chronic) Pulmonary HTN (Chronic) COPD (chronic obstructive pulmonary disease) (Chronic) DM type 2 (diabetes mellitus, type 2) (Chronic) HTN (hypertension) (Chronic) RHF (right heart failure) (Chronic) Chronic respiratory failure with hypoxia (Chronic) ESRD (end stage renal disease) on dialysis (Chronic) Hypothyroidism (Chronic) Depression (Chronic) HLD (hyperlipidemia) (Chronic) Neuropathy (Chronic) Diabetic gastroparesis (Chronic) H/O deep venous thrombosis (Resolved) ESRD (end stage renal disease) on dialysis (Inactive) Surgical History History of tracheostomy History of hernia repair (Resolved) Status post laparoscopic cholecystectomy (Resolved) S/P debridement (Chronic) "08/30/2016- debridement bilateral lower extremity and buttock wounds" Hx of cholecystectomy (Resolved) Family History Other CKD (chronic kidney disease) Coronary heart disease Social History Preferred Language: Luxembourgish Communication Ability: Effective Beliefs That Will Affect Care: None marital status: Current Living Situation: Spouse Feels Safe at Home: Yes Smoking Status: Former smoker Tobacco Type: cigarettes Cigarettes Per Day: 40 Second Hand Exposure: No Hx Alcohol Use: No Hx Substance Use: No Review of Systems See HPI for pertinent positives & negatives. and A total of 10 systems reviewed and were otherwise negative Physical Exam Vital Signs Vital Signs - 24 hr 02/04/19 17:55 02/04/19 18:09 02/04/19 18:10 Temperature 36.4 C L Temperature Source Oral Oral Sepsis Recent Fever Within 48 Hours No Sepsis New/Unexplained Change in Mental Status No Sepsis Action Taken by Nursing No Action Required Pulse Rate 79 Pulse Rate [Apical] Pulse Rate from SpO2 Sensor Pulse Rhythm [Apical] Respiratory Rate 22 Respiratory Depth Blood Pressure 64/42 L Blood Pressure [Right Arm] Blood Pressure Mean 49 Blood Pressure Mean [Right Arm] Blood Pressure Position Sitting Blood Pressure Position [Right Arm] Pulse Oximetry 98 98 Oxygen Delivery Method Room Air Room Air Oxygen Flow Rate 5 02/04/19 18:11 02/04/19 18:16 02/04/19 18:17 Temperature Temperature Source Sepsis Recent Fever Within 48 Hours Sepsis New/Unexplained Change in Mental Status Sepsis Action Taken by Nursing Pulse Rate 102 H 108 H 110 H Pulse Rate [Apical] Pulse Rate from SpO2 Sensor Pulse Rhythm [Apical] Respiratory Rate 19 14 27 H Respiratory Depth Blood Pressure 69/39 L 70/43 L Blood Pressure [Right Arm] Blood Pressure Mean 49 52 Blood Pressure Mean [Right Arm] Blood Pressure Position Blood Pressure Position [Right Arm] Pulse Oximetry Oxygen Delivery Method Oxygen Flow Rate 02/04/19 18:20 02/04/19 18:32 02/04/19 18:40 Temperature Temperature Source Sepsis Recent Fever Within 48 Hours Sepsis New/Unexplained Change in Mental Status Sepsis Action Taken by Nursing Pulse Rate 104 H 97 H 99 H Pulse Rate [Apical] Pulse Rate from SpO2 Sensor Pulse Rhythm [Apical] Respiratory Rate 20 16 24 Respiratory Depth Blood Pressure Blood Pressure [Right Arm] Blood Pressure Mean Blood Pressure Mean [Right Arm] Blood Pressure Position Blood Pressure Position [Right Arm] Pulse Oximetry Oxygen Delivery Method Oxygen Flow Rate 02/04/19 18:41 02/04/19 18:44 02/04/19 18:46 Temperature Temperature Source Sepsis Recent Fever Within 48 Hours Sepsis New/Unexplained Change in Mental Status Sepsis Action Taken by Nursing Pulse Rate 98 H Pulse Rate [Apical] 101 H Pulse Rate from SpO2 Sensor Pulse Rhythm [Apical] Irregular Respiratory Rate 24 26 H Respiratory Depth Normal Blood Pressure 86/38 L 74/56 L Blood Pressure [Right Arm] 86/38 L Blood Pressure Mean 54 62 Blood Pressure Mean [Right Arm] 54 Blood Pressure Position Blood Pressure Position [Right Arm] Lying Pulse Oximetry Oxygen Delivery Method Nasal Cannula Oxygen Flow Rate 02/04/19 18:50 02/04/19 19:00 02/04/19 19:02 Temperature Temperature Source Sepsis Recent Fever Within 48 Hours Sepsis New/Unexplained Change in Mental Status Sepsis Action Taken by Nursing Pulse Rate 111 H 100 H 103 H Pulse Rate [Apical] Pulse Rate from SpO2 Sensor 99 H 100 H 105 H Pulse Rhythm [Apical] Respiratory Rate 17 22 18 Respiratory Depth Blood Pressure 80/60 L Blood Pressure [Right Arm] Blood Pressure Mean 66 Blood Pressure Mean [Right Arm] Blood Pressure Position Blood Pressure Position [Right Arm] Pulse Oximetry 91 97 99 Oxygen Delivery Method Oxygen Flow Rate 02/04/19 19:10 02/04/19 19:16 02/04/19 19:20 Temperature Temperature Source Sepsis Recent Fever Within 48 Hours Sepsis New/Unexplained Change in Mental Status Sepsis Action Taken by Nursing Pulse Rate 103 H 101 H 102 H Pulse Rate [Apical] Pulse Rate from SpO2 Sensor 98 H 101 H 101 H Pulse Rhythm [Apical] Respiratory Rate 22 22 19 Respiratory Depth Blood Pressure 83/57 L Blood Pressure [Right Arm] Blood Pressure Mean 65 Blood Pressure Mean [Right Arm] Blood Pressure Position Blood Pressure Position [Right Arm] Pulse Oximetry 97 97 96 Oxygen Delivery Method Oxygen Flow Rate 02/04/19 19:30 02/04/19 19:31 02/04/19 19:40 Temperature Temperature Source Sepsis Recent Fever Within 48 Hours Sepsis New/Unexplained Change in Mental Status Sepsis Action Taken by Nursing Pulse Rate 105 H 107 H 105 H Pulse Rate [Apical] Pulse Rate from SpO2 Sensor 108 H 106 H 95 H Pulse Rhythm [Apical] Respiratory Rate 21 23 19 Respiratory Depth Blood Pressure Blood Pressure [Right Arm] Blood Pressure Mean 62 Blood Pressure Mean [Right Arm] Blood Pressure Position Blood Pressure Position [Right Arm] Pulse Oximetry 94 93 95 Oxygen Delivery Method Oxygen Flow Rate 02/04/19 19:46 02/04/19 19:50 02/04/19 20:00 Temperature Temperature Source Sepsis Recent Fever Within 48 Hours Sepsis New/Unexplained Change in Mental Status Sepsis Action Taken by Nursing Pulse Rate 99 H 99 H 100 H Pulse Rate [Apical] Pulse Rate from SpO2 Sensor 91 H 101 H 102 H Pulse Rhythm [Apical] Respiratory Rate 21 20 14 Respiratory Depth Blood Pressure 91/56 L Blood Pressure [Right Arm] Blood Pressure Mean 67 Blood Pressure Mean [Right Arm] Blood Pressure Position Blood Pressure Position [Right Arm] Pulse Oximetry 98 97 90 Oxygen Delivery Method Oxygen Flow Rate 02/04/19 20:01 02/04/19 20:05 02/04/19 20:06 Temperature Temperature Source Sepsis Recent Fever Within 48 Hours Sepsis New/Unexplained Change in Mental Status Sepsis Action Taken by Nursing Pulse Rate 103 H 107 H 96 H Pulse Rate [Apical] Pulse Rate from SpO2 Sensor 96 H 105 H 100 H Pulse Rhythm [Apical] Respiratory Rate 15 21 23 Respiratory Depth Blood Pressure 98/62 L Blood Pressure [Right Arm] Blood Pressure Mean 74 Blood Pressure Mean [Right Arm] Blood Pressure Position Blood Pressure Position [Right Arm] Pulse Oximetry 89 L 87 L 86 L Oxygen Delivery Method Oxygen Flow Rate Constitutional: Vital signs reviewed. She is hypotensive. Eyes: Pupils are equal round reactive to light. Conjunctiva are noninjected. ENT: Pharynx is clear without erythema or exudate. Mucous membranes are moist. Neck supple without meningeal signs. Respiratory: Clear to auscultation bilaterally. Breath sounds are equal bilaterally Cardiovascular: Tachycardic, irregularly irregular rhythm. GI: Soft and nondistended. Right lower quadrant tenderness. Bowel sounds are present. Musculoskeletal: Dialysis catheter in the chest. Integumentary: No cyanosis. Neurological: The patient is awake and alert. No focal deficits. Psychiatric: Unable to assess. Course 180: Past medical records reviewed. The patient was evaluated in room A1. A complete history and physical examination was performed. 183: I checked on the patient. Patient states she has a history of A-fib and is on the medication coumadin. The patient's heart rate is at a value of 98. The patient's blood pressure is being rechecked. 184: The patient's blood pressure has improved to 86/38. 1901: I checked on the patient and discussed the patient's test results with patient's daughter. The daughter states the patient had a swallow study conducted 2 weeks ago which the patient passed. 1916: I discussed the test results with the patient. The patient's blood pressure is now stable. 0: I spoke with Juanita Prescott PA-C regarding the patient's case. The patient will be admitted under the care of Dr. Mcconnell for further treatment. Patient has verbalized agreement of the treatment plan. Consultations Consultation #1: Juanita Prescott PA-C Time: 19:20 Administered Medications Vancomycin HCl 2,000 mg/ (Sodium Chloride) 540 mls @ 200 mls/hr IV NOW STA Stop: 02/04/19 21:43 Last Admin: 02/04/19 19:41 Dose: 200 mls/hr Documented by: [id number] Discontinued Medications Sodium Chloride (Nss) 500 mls @ 999 mls/hr IV .Q31M EDWIGE Stop: 02/04/19 18:45 Last Infusion: 02/04/19 20:17 Dose: 0 mls/hr Documented by: [id number] Admin: 02/04/19 19:40 Dose: 999 mls/hr Documented by: [id number] Potassium Chloride (K Jairon / Wtr) 10 meq in 100 mls @ 100 mls/hr IV ONE ONE Stop: 02/04/19 19:35 Last Admin: 02/04/19 19:53 Dose: Not Given Documented by: [id number] Piperacillin Sod/Tazobactam Sod (Zosyn) 4.5 gm in 120 mls @ 240 mls/hr IV NOW STA Stop: 02/04/19 19:26 Last Infusion: 02/04/19 20:16 Dose: 0 mls/hr Documented by: [id number] Admin: 02/04/19 19:40 Dose: 240 mls/hr Documented by: [id number] Sodium Chloride (Nss 1000ml) 500 mls @ 999 mls/hr IV .Q31M ONE Stop: 02/04/19 19:31 Last Infusion: 02/04/19 21:09 Dose: 0 mls/hr Documented by: [id number] Admin: 02/04/19 20:17 Dose: 999 mls/hr Documented by: [id number] Phytonadione 2.5 mg/ Sodium (Chloride) 50.25 mls @ 100.5 mls/hr IV ONE ONE Stop: 02/04/19 19:41 Last Infusion: 02/04/19 20:27 Dose: 0 mls/hr Documented by: [id number] Admin: 02/04/19 19:48 Dose: 100.5 mls/hr Documented by: [id number] Ipratropium [place] (Atrovent 0.02% 0.5mg/2.5ml) 0.5 mg INH NOW STA Stop: 02/04/19 20:55 Last Admin: 02/04/19 21:06 Dose: 0.5 mg Documented by: [id number] Levalbuterol HCl (Xopenex 1.25mg/0.5ml Neb) 1.25 mg INH NOW STA Stop: 02/04/19 20:54 Last Admin: 02/04/19 21:06 Dose: 1.25 mg Documented by: [id number] Methylprednisolone (Solumedrol) 20 mg IV NOW STA Stop: 02/04/19 19:43 Last Admin: 02/04/19 20:33 Dose: 20 mg Documented by: [id number] Potassium Chloride (Klor-Con M10) 20 meq PO NOW STA Stop: 02/04/19 18:37 Last Admin: 02/04/19 19:24 Dose: 20 meq Documented by: [id number] Medical Decision Making Differential Diagnosis appendicitis, bowel ischemia, pneumonia, dysrhythmia, cardiac, Medical Records Attestation: I reviewed the patient's medical records. Home Medications Current Medication List: was personally reviewed by me Laboratory Data Attestation: I reviewed the patient's lab results. Result diagrams: 02/04/19 18:16 02/04/19 18:16 Lab Results 02/04/19 02/04/19 02/04/19 Range/Units 18:16 18:16 18:18 WBC 20.69 H (4.8-10.8) K/uL RBC 3.91 L (4.2-5.4) M/uL Hgb 11.7 L (12.0-16.0) g/dL Hct 36.4 L (37-47) % MCV 93.1 (80-100) fL MCH 29.9 (25-34) pg MCHC 32.1 (32-36) g/dL RDW Std Deviation 71.9 H (36.4-46.3) fL RDW Coeff of Yogi 21.9 H (11.5-14.5) % Plt Count 233 (130-400) K/uL MPV 10.2 (7.4-10.4) fL Immature Gran % (Auto) 1.5 % Neut % (Auto) 86.0 % Lymph % (Auto) 5.2 % [facility] % (Auto) 7.0 % Eos % (Auto) 0.1 % Baso % (Auto) 0.2 % Immature Gran # (Auto) 0.31 H (0.00-0.02) K/uL Neut # (Auto) 17.77 H (1.4-6.5) K/uL Lymph # (Auto) 1.08 L (1.2-3.4) K/uL [facility] [place] [facility] # (Auto) 1.45 H (0.11-0.59) K/uL Eos # (Auto) 0.03 (0-0.5) K/uL Baso # (Auto) 0.05 (0-0.2) K/uL Absolute Nucleated RBC 0.11 H (0-0) K/uL Nucleated RBC % (auto) 0.5 % Polychromasia 1+ Anisocytosis Present Tear Drop Cells 1+ Acanthocytes (Spur) 1+ PT 60.4 H (9.0-12.0) Seconds INR 6.8 H* (0.9-1.1) APTT 57.8 H* (21.0-31.0) Seconds PTT Ratio 2.1 Sodium 128 L (136-145) mmol/L Potassium 5.6 H (3.5-5.1) mmol/L Chloride 96 L (98-107) mmol/L Carbon Dioxide 19 L (21-32) mmol/L Anion Gap 13.0 H (3-11) BUN 34 H (7-18) mg/dl Creatinine 4.62 H* (0.6-1.2) mg/dl Est Cr Clr Drug Dosing 13.6 ml/min Est GFR ( Amer) 10.8 Est GFR (Non-Af Amer) 9.4 BUN/Creatinine Ratio 7.4 L (10-20) Glucose 189 H (70-99) mg/dl Calcium 8.8 (8.5-10.1) mg/dl Magnesium 2.6 H (1.8-2.4) mg/dl Total Bilirubin 0.4 (0.2-1) mg/dl AST 30 (15-37) U/L ALT 28 (12-78) U/L Alkaline Phosphatase 167 H (45-117) U/L POC Troponin I (0-0.045) ng/ml Total Protein 6.9 (6.4-8.2) gm/dl Albumin 2.5 L (3.4-5.0) gm/dl Globulin 4.4 H (2.5-4.0) gm/dl Albumin/Globulin Ratio 0.6 L (0.9-2) Lipase 49 L (73-393) U/L 02/04/19 Range/Units 18:21 WBC (4.8-10.8) K/uL RBC (4.2-5.4) M/uL Hgb (12.0-16.0) g/dL Hct (37-47) % MCV (80-100) fL MCH (25-34) pg MCHC (32-36) g/dL RDW Std Deviation (36.4-46.3) fL RDW Coeff of Yogi (11.5-14.5) % Plt Count (130-400) K/uL MPV (7.4-10.4) fL Immature Gran % (Auto) % Neut % (Auto) % Lymph % (Auto) % [facility] [place] % (Auto) % Eos % (Auto) % Baso % (Auto) % Immature Gran # (Auto) (0.00-0.02) K/uL Neut # (Auto) (1.4-6.5) K/uL Lymph # (Auto) (1.2-3.4) K/uL [facility] [place] [facility] # (Auto) (0.11-0.59) K/uL Eos # (Auto) (0-0.5) K/uL Baso # (Auto) (0-0.2) K/uL Absolute Nucleated RBC (0-0) K/uL Nucleated RBC % (auto) % Polychromasia Anisocytosis Tear Drop Cells Acanthocytes (Spur) PT (9.0-12.0) Seconds INR (0.9-1.1) APTT (21.0-31.0) Seconds PTT Ratio Sodium (136-145) mmol/L Potassium (3.5-5.1) mmol/L Chloride (98-107) mmol/L Carbon Dioxide (21-32) mmol/L Anion Gap (3-11) BUN (7-18) mg/dl Creatinine (0.6-1.2) mg/dl Est Cr Clr Drug Dosing ml/min Est GFR ( Amer) Est GFR (Non-Af Amer) BUN/Creatinine Ratio (10-20) Glucose (70-99) mg/dl Calcium (8.5-10.1) mg/dl Magnesium (1.8-2.4) mg/dl Total Bilirubin (0.2-1) mg/dl AST (15-37) U/L ALT (12-78) U/L Alkaline Phosphatase (45-117) U/L POC Troponin I 0.13 H (0-0.045) ng/ml Total Protein (6.4-8.2) gm/dl Albumin (3.4-5.0) gm/dl Globulin (2.5-4.0) gm/dl Albumin/Globulin Ratio (0.9-2) Lipase (73-393) U/L Imaging Data Attestation: I personally reviewed and interpreted this imaging study as follows: Radiologist's Impression: Radiology results as stated below per my review and the radiologist's interpretation: XR chest 1V portable CLINICAL HISTORY: evalm for pna dyspnea COMPARISON STUDY: 01/15/2019 FINDINGS: Mild stable cardia megaly. Central catheter remains in the vena cava. Slight bibasilar interstitial prominence unchanged. Upper lungs are clear. IMPRESSION: Chronic and postoperative change. Mild stable cardiomegaly. The above report was generated using voice recognition software. It may contain grammatical, syntax or spelling errors. Electronically signed by: Bird Patino M.D. 02/04/2019 7:11 PM Dictated: 02/04/191909 Transcribed: 02/04/191909 CT abd pelvis wo con CT DOSE: 1118.78 mGy.cm HISTORY: Pain rlq pain eval for appe TECHNIQUE: Multiaxial CT images of the abdomen and pelvis were performed without contrast. A dose lowering technique was utilized adhering to the principles of ALARA. COMPARISON STUDY: 08/12/2018 focal retention FINDINGS: Focal consolidative infiltrate right base somewhat increased in prominence in the prior exam. Radiopaque contents within the bronchial tree of t he right base suggesting aspiration. Minimal dependent atelectasis left base. The liver spleen and pancreas are unremarkable. Prior cholecystectomy. Atrophy of the kidneys. Left renal hyperdense nodules unchanged from the prior exam. No evidence for renal hydronephrosis. Nonobstructive bowel pattern. Normal appendix. Chronic subcutaneous fat infiltrative changes of the right and to lesser extent left flank. Small fat- containing ventral hernia unchanged from the prior study. Infiltrative changes of the anterior abdominal wall subcutaneous fat presumably secondary to prior injections. Retroflexed uterus containing fibroid involvement. IMPRESSION: 1. Progressive consolidative infiltrate right base suggesting chronic aspiration. 2. Hyperdense material within the tracheobronchial tree right base suggesting aspiration, possibly on a prior video swallow procedure. 3. Incidental findings throughout the abdomen and pelvis including renal atrophy unchanged from the prior exam. 4. Hyperdense nodules of the left kidney procedure described are unchanged. 5. Nonobstructive bowel pattern. 6. Fibroid uterus unchanged The above report was generated using voice recognition software. It may contain grammatical, syntax or spelling errors. Electronically signed by: Bird Patino M.D. 02/04/2019 6:39 PM Dictated: 02/04/191832 Transcribed: 02/04/191832 ECG Data Attestation: I personally reviewed and interpreted this ECG as follows: Indication: abdominal pain Rate (beats per minute): 116 Rhythm: atrial fibrillation (with RVR) Findings: + other (T wave inversions in the inferior leads, septal and anterior ); no PVC Comparison ECG Date: from (01-11-19) Change: the following changes noted (A-fib is new) Blood Pressure Blood Pressure Findings: Low blood pressure Blood Pressure Disposition: Referred to patients primary care provider MDM Narrative I did evaluate the patient as noted above. I did obtain history from the patient as well as her daughter who is at the bedside. She is presenting with right lower quadrant abdominal pain. She was sent here by her doctor's office to rule out appendicitis. IV access was established. The patient was placed on a continuous registered nurse cardiac. She is hypotensive, although she does state normally her blood pressure runs in the 80s systolic. She was given a bolus of normal saline IV. I did order and personally review the patient's 12-lead EKG as described above. She has atrial fibrillation with RVR. He has some nonspecific T wave inversions. I did order and personally reviewed the images of the patient's chest x-ray as described above. No pneumonia is noted. I did order and review the patient's blood work as noted in the electronic medical record. Troponin is slightly elevated. Her white count is 21,000. INR is 6.8. Creatinine is elevated but she is a dialysis patient. I did order a CT of the abdomen and pelvis. I did review the images myself as well as the radiology report as described above. The appendix is visualized and normal. She does appear to have hyperdense material in the tracheobronchial tree on the right side with a right-sided infiltrate. Her symptoms are concerning for aspiration pneumonia. Her daughter does state that she had a swallow study 2 weeks ago which she passed. I did treated with Zosyn IV. I did reassess the patient multiple times. Her blood pressure did improve with IV fluids. Her heart rate came down. I did treat patient with IV vitamin K 2.5 mg for her elevated INR. I did discuss the test results with the patient and her daughter. I did recommend hospitalization. I did discuss the case with the hospitalist and case mgr. Impression & Plan Aspiration pneumonia, Hypotension, Elevated troponin, Abdominal pain, lower, Supratherapeutic INR Critical Care Time I have personally spent 40 minutes of critical care time in the direct management of this patient. This includes bedside care, interpretation of diagnostic studies, and testing, discussion with consultants, patient, and fa pamella members, and other required patient management activities. This 40 minutes is in excess of all separately billable procedures. Critical Care Time: Yes Total Critical Care Time: 40 Discharge Plan Visit Data Chief Complaint: Abdominal Pain Stated Complaint: R SIDE PAIN, BURNING, DOC REF ED Provider: Yaya Soto Discharge Problem: Aspiration pneumonia, Hypotension, Elevated troponin, Abdominal pain, lower, Supratherapeutic INR Patient Disposition: Being Evaluated by Hospitalist Forms Stand Alone Forms: Call Back Authorization, [facility] Prescriptions Prescriptions: No Action hydrocodone-acetaminophen 5-325 mg tablet 1 tab PO Q6H PRN (Reason: Pain) RF: 0 sertraline [Zoloft] 100 mg tablet 150 mg PO PM RF: 0 atorvastatin 40 mg tablet 40 mg PO HS RF: 0 insulin glargine [Lantus Solostar U-100 Insulin] 100 unit/mL (3 mL) insulin pen 30 units SQ HS RF: 0 metoprolol succinate 25 mg capsule,sprinkle,ER 24hr 12.5 mg PO DAILY RF: 0 levothyroxine [Levo-T] 125 mcg tablet 125 mcg PO QAM RF: 0 albuterol sulfate 90 mcg/actuation HFA aerosol inhaler 2 puffs INH Q6H PRN (Reason: Shortness Of Breath) RF: 0 magnesium oxide 400 mg (241.3 mg magnesium) tablet 400 mg PO DAILY RF: 0 pantoprazole [Protonix] 20 mg tablet,delayed release (DR/EC) 20 mg PO QAM RF: 0 albuterol sulfate 2.5 mg /3 mL (0.083 %) solution for nebulization 1.25 mg INH Q4H PRN (Reason: Shortness Of Breath Or Wheezing) RF: 0 ascorbic acid (vitamin C) 500 mg capsule 500 mg PO DAILY RF: 0 cholecalciferol (vitamin D3) 1,000 unit capsule 1,000 units PO DAILY RF: 0 lorazepam 0.5 mg Tablet 0.5 mg PO UD PRN (Reason: Anxiety) RF: 0 cyanocobalamin (vitamin B-12) 1,000 mcg Tablet 1,000 mcg PO DAILY RF: 0 gabapentin 300 mg Capsule 300 mg PO UD RF: 0 Novolog Flexpen U-100 Insulin 100 unit/mL (3 mL) Insulin Pen 15 unit SUBCUT UD RF: 0 calcium acetate 667 mg Capsule 2,668 mg PO TIDM RF: 0 prednisone 5 mg Tablet 5 mg PO DAILY RF: 0 docusate sodium [Colace] 100 mg Capsule 100 mg PO BID RF: 0 nystatin 100,000 unit/gram Powder 1 applic TOPICAL BID RF: 0 Anoro Ellipta 62.5-25 mcg/actuation Blister With Device 1 inh INHALATION DAILY RF: 0 warfarin 5 mg tablet 5 mg PO UD RF: 0 Renal Vitamin 0.8 mg Tablet 1 tab PO DAILY RF: 0 Probiotic 3 billion cell Capsule 3,000 mmu cells PO DAILY RF: 0 midodrine 5 mg tablet 5 mg PO UD RF: 0 Referrals Referrals: Narendra Gonzalez MD [Primary Care Provider] - Discharge Problem: Aspiration pneumonia Qualifiers: Aspiration pneumonia type: unspecified Laterality: unspecified laterality Lung location: unspecified part of lung Qualified Code(s): J69.0 - Pneumonitis due to inhalation of food and vomit Hypotension Qualifiers: Hypotension type: unspecified hypotension type Qualified Code(s): I95.9 - Hypotension, unspecified The scribe's documentation has been prepared under my direction and personally reviewed by me in its entirety. I confirm that the note above accurately reflects all work, treatment, procedures, and medical decision making performed by me.
[2019-02-04 21:26] LABS: BUN Creatinine Ratio 7.6 (10-20); Calcium 8.7 mg/dl (8.5-10.1); Creatinine Clr Calc Pharmacy 14.1 ml/min; Est GFR (African American) 11.3; Est GFR (Non-African American) 9.7; Potassium 5.1 mmol/L (3.5-5.1)
[2019-02-04 21:32] LABS: Troponin I 0.144 ng/ml (0-0.045)
[2019-02-04] MEDS ORDERED: SODIUM CHLORIDE 0.9% 500 ML IV ONE (21:34)
[2019-02-04] MEDS ORDERED: DIGOXIN 250 MCG in SYRINGE 9 ML IV STA (21:43)
[2019-02-04] MEDS ORDERED: CARBOHYDRATES FOR HYPOGLYCEMIA PO PRN (21:56)
[2019-02-04] MEDS ORDERED: GLUCOSE 10 TABS/TUBE PO PRN (21:56)
[2019-02-04] MEDS ORDERED: HYDROmorphone INJ 0.5 MG/0.5 ML SYR IV PRN (21:56)
[2019-02-04] MEDS ORDERED: PROMETHAZINE HCL 12.5 MG in SODIUM CHLORIDE 0.9% 50 ML IV PRN (21:56)
[2019-02-04] MEDS ORDERED: INSULIN GLARGINE SOLOSTAR 100 UNITS/ML 3 ML PEN SQ SCH (21:56)
[2019-02-04] MEDS ORDERED: DEXTROSE 50% 50 ML SYRINGE IV PRN (21:56)
[2019-02-04] MEDS ORDERED: ACETAMINOPHEN 325 MG TAB PO PRN (21:56)
[2019-02-04] MEDS ORDERED: GLUCOSE 40% GEL 15 GM TUBE PO PRN (21:56)
[2019-02-04] MEDS ORDERED: GLUCAGON FOR INJ 1 MG VIAL SQ PRN (21:56)
[2019-02-04] MEDS ORDERED: PIPERACILL/TAZOBAC CONSULT ACTIVE PRN (22:38)
[2019-02-04] MEDS ORDERED: VANCOMYCIN CONSULT ACTIVE PRN (22:39)
[2019-02-05] MEDS: DOCUSATE SODIUM 100 MG CAP PO SCH ×3 (00:18→22:53)
[2019-02-05] MEDS: ATORVASTATIN 40 MG TAB PO SCH ×2 (00:18→22:53)
[2019-02-05] MEDS: HYDROCODONE/ACETAMOPHEN 5/325MG TAB PO PRN ×2 (00:20→22:51)
[2019-02-05] MEDS: INSULIN ASPART 100 UNITS/ML 3 ML PEN SC SCH ×5 (00:24→22:09)
[2019-02-05] MEDS: INSULIN GLARGINE SOLOSTAR 100 UNITS/ML 3 ML PEN SQ SCH ×3 (00:25→22:08)
[2019-02-05] MEDS ORDERED: ALBUMIN 25% 50 ML IV ONE (00:46)
[2019-02-05] MEDS: LEVALBUTEROL 1.25MG/0.5ML NEB INH SCH ×4 (01:57→19:21)
[2019-02-05] MEDS: IPRATROPIUM BROMIDE NEB SOLN 0.02% 2.5 ML VIAL INH SCH ×4 (01:57→19:20)
[2019-02-05] MEDS ORDERED: XOPENEX/ATROVENT 1.25mg/0.5MG NEB COMBO NEB SCH (02:00)
[2019-02-05] MEDS: PIPERACILLIN/TAZOBACTAM 4.5 GM in DEXTROSE 5% 100 ML IV SCH ×2 (03:41→16:14)
[2019-02-05] MEDS ORDERED: MIDODRINE HCL 2.5 MG TAB PO STA (04:04)
[2019-02-05] MEDS: LEVOTHYROXINE SODIUM 125 MCG TABLET PO SCH (04:59)
[2019-02-05] MEDS: predniSONE 20 MG TAB PO SCH (06:30)
[2019-02-05] MEDS ORDERED: MICONAZOLE NITRATE POWDER 43 GM EXT PRN (06:41)
[2019-02-05 07:39] LABS: Basophils # (auto) 0.01 K/uL (0-0.2); Basophils % (auto) 0.1 %; Hematocrit (blood only) 32.1 % (37-47); Hemoglobin 10.2 g/dL (12.0-16.0); Immature Granulocytes # (auto) 0.18 K/uL (0.00-0.02); Lymphocytes # (auto) 0.38 K/uL (1.2-3.4); Lymphocytes % (auto) 2.2 %; Mean Corpuscular Hgb Conc 31.8 g/dL (32-36); Mean Corpuscular Volume 92.8 fL (80-100); Mean Platelet Volume 10.6 fL (7.4-10.4); Monocytes # (auto) 0.76 K/uL (0.11-0.59); Monocytes % (auto) 4.4 %; Neutrophils # (auto) 15.82 K/uL (1.4-6.5); Neutrophils % (auto) 92.3 %; Nucleated RBC # (auto) 0.07 K/uL (0-0); Nucleated RBC % (auto) 0.4 %; Platelet Count 165 K/uL (130-400); RDW Coefficient of Variation 21.3 % (11.5-14.5); RDW Standard Deviation 69.6 fL (36.4-46.3); Red Blood Count 3.46 M/uL (4.2-5.4); White Blood Count 17.15 K/uL (4.8-10.8)
[2019-02-05] MEDS ORDERED: SODIUM CHLORIDE 0.9% 1000ML 1,000 ML IV PRN (07:42)
[2019-02-05] MEDS ORDERED: HEPARIN SOD (PORCINE) 1000 UNIT/ML 10 ML VIAL IV ONE (07:42)
--- NOTE | 2019-02-05 07:42 | Nephrology Consultation ---
Date of Consultation February 05, 2019 Assessment & Plan (1) ESRD (end stage renal disease) on dialysis: on MWFSat HD to manage volume status > plan HD today w/ 1L fluid removal as tolerated; next HD tentatively for tomorrow; she has higher dose midodrine on HD days; very challenging status clinically b/c pt w/ chronic hypotension (sbp 70-90s often even on midodrine), chronic / recurrent respiratory failure - pna, chronic volume overload from R HF Present on Admission?: Yes (2) Acute and chronic respiratory failure with hypoxia: w/ chronic aspiration and on 4L 02nc chronically > recommend 1.2L Fluid limit and aggressive dialysis Present on Admission?: Yes (3) Hyperkalemia: K 5.6 this am -ensure dialysis diet if/ when taking po -manage w/ dialysis Present on Admission?: Yes (4) Aspiration pneumonia: silent aspiration on swallow study earlier this month Present on Admission?: Yes (5) Hypotension: had 1L NS in ER last evening; total IV input 2.3L since presentation last evening; continue midodrine and more frequent dialysis as above Present on Admission?: Yes (6) Chronic anemia: chronic, moderate; managed on dialysis pls check hgb [id number] Present on Admission?: Yes History of Present Illness Reason for Consultation: esrd on dialysis Requesting Physician: Dr Arce Attending Physician: Miguel Ángel Gentile MD History of Present Illness 63 y/o F w/ ESRD on HD MWFSat whom I'm asked to see for HD care and volume mgt after she was admitted overnight w/ recurrent pna, presume aspiration, and mild abd pain. PMH is complex and includes copd, morbid obesity, obesity hypoventilation syndrome, severe/ chronic respiratory failure on 02nc 4L / and up to 5L, chronic hypotension on midodrine, a fib, DM, hypothyroid, depression. She is tdc dependent for dialysis access. She has been admitted here 2X in past month > once for pna and once after her dialysis catheter fell out at home. She has chronic hypotension and chronic volume overload needing 4 days weekly dialysis for past several months in order to maintain fluid status. She had 2.3 L in overnight and is receiving empiric zosyn. No recent missed HD Allergies Allergy/AdvReac Type Severity Reaction Status Date / Time bacitracin Allergy Intermediate RASH,ITCH Verified 01/13/19 06:23 celecoxib Allergy Intermediate RASH TO Verified 01/13/19 06:23 SULFA DRUGS neomycin Allergy Intermediate RASH,ITCH Verified 01/13/19 06:23 polymyxin B Allergy Intermediate RASH,ITCH Verified 01/13/19 06:23 Sulfa (Sulfonamide Allergy Intermediate RASH,HAS Verified 01/13/19 06:23 Antibiotics) TAKEN GLIPIZIDE W/O REACTION tigecycline AdvReac Severe MILD Verified 01/13/19 06:23 PANCREATITIS codeine AdvReac Intermediate GI UPSET Verified 01/13/19 06:23 Home Medications Home Medications Medication Instructions Recorded Confirmed Type albuterol sulfate 2.5 mg/3 mL 1.25 mg INH Q4H PRN 06/01/18 02/04/19 History (0.083 %) solution for nebulization albuterol sulfate HFA 90 2 puffs INH Q6H PRN 06/01/18 02/04/19 History mcg/actuation aerosol inhaler ascorbic acid (vitamin C) 500 mg 500 mg PO DAILY cap 06/01/18 02/04/19 History capsule atorvastatin 40 mg tablet 40 mg PO HS 06/01/18 02/04/19 History cholecalciferol (vitamin D3) 1,000 1,000 units PO DAILY 06/01/18 02/04/19 History unit capsule hydrocodone 5 mg-acetaminophen 325 1 tab PO Q6H PRN 06/01/18 02/04/19 History mg tablet insulin glargine (U-100) 100 30 units SQ HS 06/01/18 02/04/19 History unit/mL (3 mL) subcutaneous pen levothyroxine 125 mcg tablet 125 mcg PO QAM 06/01/18 02/04/19 History magnesium oxide 400 mg (241.3 mg 400 mg PO DAILY tab 06/01/18 02/04/19 History magnesium) tablet metoprolol succinate ER 25 mg 12.5 mg PO DAILY 06/01/18 02/04/19 History capsule sprinkle, ext. release 24 hr pantoprazole 20 mg tablet,delayed 20 mg PO QAM 06/01/18 02/04/19 History release sertraline 100 mg tablet 150 mg PO PM tab 06/01/18 02/04/19 History Anoro Ellipta 1 inh INHALATION DAILY 06/22/18 02/04/19 History docusate sodium [Colace] 100 mg PO BID 06/22/18 02/04/19 History nystatin 1 applic TOPICAL BID 06/22/18 02/04/19 History prednisone 5 mg PO DAILY 06/22/18 02/04/19 History lorazepam 0.5 mg PO UD PRN 07/15/18 02/04/19 History warfarin 5 mg PO UD 08/12/18 02/04/19 History Probiotic 3,000 mmu cells PO DAILY 01/11/19 02/04/19 History Renal Vitamin 1 tab PO DAILY 01/11/19 02/04/19 History midodrine 5 mg PO UD 01/11/19 02/04/19 History calcium acetate 2,668 mg PO TIDM 02/04/19 02/04/19 History cyanocobalamin (vitamin B-12) 1,000 mcg PO DAILY 02/04/19 02/04/19 History gabapentin 300 mg PO UD 02/04/19 02/04/19 History insulin aspart U-100 [Novolog 15 unit SUBCUT UD 02/04/19 02/04/19 History Flexpen U-100 Insulin] Patient History Medical History Chronic knee pain (Chronic) COPD exacerbation (Resolved) Sleep apnea (Chronic) Chronic anemia (Chronic) Pneumonia (Acute) Generalized weakness (Resolved) Iron (Fe) deficiency anemia (Chronic) Morbid obesity (Chronic) Obesity hypoventilation syndrome (Chronic) Pressure ulcer Atrial fibrillation (Chronic) Pulmonary HTN (Chronic) COPD (chronic obstructive pulmonary disease) (Chronic) DM type 2 (diabetes mellitus, type 2) (Chronic) HTN (hypertension) (Chronic) RHF (right heart failure) (Chronic) Chronic respiratory failure with hypoxia (Chronic) ESRD (end stage renal disease) on dialysis (Chronic) Hypothyroidism (Chronic) Depression (Chronic) HLD (hyperlipidemia) (Chronic) Neuropathy (Chronic) Diabetic gastroparesis (Chronic) H/O deep venous thrombosis (Resolved) ESRD (end stage renal disease) on dialysis (Inactive) Surgical History History of tracheostomy History of hernia repair (Resolved) Status post laparoscopic cholecystectomy (Resolved) S/P debridement (Chronic) "08/30/2016- debridement bilateral lower extremity and buttock wounds" Hx of cholecystectomy (Resolved) Family History Other CKD (chronic kidney disease) Coronary heart disease Social History Preferred Language: Yoruba Communication Ability: Effective Rip Saw Operator Required: No Beliefs That Will Affect Care: None marital status: Current Living Situation: Spouse Other Information That Helps Us Care for You: No Feels Safe at Home: Yes Safety Concerns: Feels Safe At This Time Smoking Status: Former smoker Tobacco Type: cigarettes Cigarettes Per Day: 40 Second Hand Exposure: No Hx Alcohol Use: No Hx Substance Use: No Review of Systems Review of Systems: All systems reviewed & are unremarkable except as noted in HPI & below Respiratory: + cough, + dyspnea and + dyspnea on exertion Cardiovascular: + edema (stable chronic); no chest pain and no palpitations Gastrointestinal: as per Subjective / HPI, + abdominal pain (improving) and + bloating; no nausea, no vomiting and no diarrhea/loose stools Genitourinary: anuric/ no change in chronic voiding habits Integumentary: + non-healing lesions (chronic unilateral sacrum) Physical Exam Constitutional: well developed, + morbidly obese and + frail appearing; no acute distress on 02nc, A& 0 x 3 nad Eyes: EOM intact bilaterally ENMT: Ears: no external ear abnormality Nose: no external nose abnormality Mouth: + dry oral mucous membranes Neck: no nuchal rigidity Respiratory: normal respiratory effort Auscultation: + diminished lung sounds and + wheezes Cardiovascular: Rate/Rhythm: regular rate (HS distant) and regular rhythm Extremities: + edema (indurated 2+ stable/chronic) Gastrointestinal (Abdomen): Inspection/Auscultation: normal bowel sounds Percussion/Palpation: abdomen soft; abdomen nontender Musculoskeletal: Extremities: strength 5/5 throughout laboy Skin: no rashes, warm and dry sacrum not examined Neurologic: laboy, fluent speech, no tremor Psychiatric: A+Ox3, euthymic affect Speech: normal rate/rhythm/volume of speech Results & Data Vital Signs (Past 12 Hours) Vital Signs Temp Pulse Pulse Pulse Resp BP BP 02/05/19 07:14 84 18 02/05/19 07:10 36.7 C 81 18 02/05/19 03:13 36.8 C 102 H 18 02/05/19 01:57 86 18 02/04/19 23:09 36.7 C 100 H 20 02/04/19 22:09 36.7 C 96 H 22 63/42 L 02/04/19 21:37 103 H 25 H 71/41 L 02/04/19 21:25 103 H 25 H 71/41 L 02/04/19 21:21 101 H 26 H 02/04/19 21:20 103 H 16 02/04/19 21:10 98 H 20 02/04/19 21:08 93 H 18 02/04/19 21:00 02/04/19 20:50 02/04/19 20:40 104 H 23 02/04/19 20:30 107 H 18 02/04/19 20:20 104 H 16 02/04/19 20:10 95 H 16 02/04/19 20:07 98 H 25 H 02/04/19 20:06 96 H 23 98/62 L 02/04/19 20:05 107 H 21 02/04/19 20:01 103 H 15 02/04/19 20:00 100 H 14 02/04/19 19:50 99 H 20 02/04/19 19:46 99 H 21 91/56 L 02/04/19 19:40 105 H 19 BP Pulse Ox 02/05/19 07:14 92 02/05/19 07:10 85/51 L 93 02/05/19 03:13 70/49 L 91 02/05/19 01:57 91 02/04/19 23:09 80/57 L 96 02/04/19 22:09 82/66 L 99 02/04/19 21:37 95 02/04/19 21:25 95 02/04/19 21:21 95 02/04/19 21:20 94 02/04/19 21:10 94 02/04/19 21:08 93 02/04/19 21:00 91 02/04/19 20:50 91 02/04/19 20:40 90 02/04/19 20:30 90 02/04/19 20:20 95 02/04/19 20:10 92 02/04/19 20:07 90 02/04/19 20:06 86 L 02/04/19 20:05 87 L 02/04/19 20:01 89 L 02/04/19 20:00 90 02/04/19 19:50 97 02/04/19 19:46 98 02/04/19 19:40 95 Laboratory Results Abnormal lab results 02/04/19 02/04/19 02/04/19 Range/Units 18:16 18:16 18:18 WBC 20.69 H (4.8-10.8) K/uL RBC 3.91 L (4.2-5.4) M/uL Hgb 11.7 L (12.0-16.0) g/dL Hct 36.4 L (37-47) % MCHC (32-36) g/dL RDW Std Deviation 71.9 H (36.4-46.3) fL RDW Coeff of Yogi 21.9 H (11.5-14.5) % MPV (7.4-10.4) fL Immature Gran # (Auto) 0.31 H (0.00-0.02) K/uL Neut # (Auto) 17.77 H (1.4-6.5) K/uL Lymph # (Auto) 1.08 L (1.2-3.4) K/uL [place] # (Auto) 1.45 H (0.11-0.59) K/uL Absolute Nucleated RBC 0.11 H (0-0) K/uL PT 60.4 H (9.0-12.0) Seconds INR 6.8 H* (0.9-1.1) APTT 57.8 H* (21.0-31.0) Seconds Sodium 128 L (136-145) mmol/L Potassium 5.6 H (3.5-5.1) mmol/L Chloride 96 L (98-107) mmol/L Carbon Dioxide 19 L (21-32) mmol/L Anion Gap 13.0 H (3-11) BUN 34 H (7-18) mg/dl Creatinine 4.62 H* (0.6-1.2) mg/dl BUN/Creatinine Ratio 7.4 L (10-20) Glucose 189 H (70-99) mg/dl POC Glucose (70-99) POC Lactic Acid Teddy (0.90-1.70) mmol/L Lactate (0.4-2.0) mmol/L Magnesium 2.6 H (1.8-2.4) mg/dl Alkaline Phosphatase 167 H (45-117) U/L POC Troponin I (0-0.045) ng/ml Troponin I (0-0.045) ng/ml Albumin 2.5 L (3.4-5.0) gm/dl Globulin 4.4 H (2.5-4.0) gm/dl Albumin/Globulin Ratio 0.6 L (0.9-2) Lipase 49 L (73-393) U/L 02/04/19 02/04/19 02/04/19 Range/Units 18:21 18:21 20:49 WBC (4.8-10.8) K/uL RBC (4.2-5.4) M/uL Hgb (12.0-16.0) g/dL Hct (37-47) % MCHC (32-36) g/dL RDW Std Deviation (36.4-46.3) fL RDW Coeff of Yogi (11.5-14.5) % MPV (7.4-10.4) fL Immature Gran # (Auto) (0.00-0.02) K/uL Neut # (Auto) (1.4-6.5) K/uL Lymph # (Auto) (1.2-3.4) K/uL [place] # (Auto) (0.11-0.59) K/uL Absolute Nucleated RBC (0-0) K/uL PT (9.0-12.0) Seconds INR (0.9-1.1) APTT (21.0-31.0) Seconds Sodium 131 L (136-145) mmol/L Potassium (3.5-5.1) mmol/L Chloride (98-107) mmol/L Carbon Dioxide 19 L (21-32) mmol/L Anion Gap 12.0 H (3-11) BUN 34 H (7-18) mg/dl Creatinine 4.47 H (0.6-1.2) mg/dl BUN/Creatinine Ratio 7.6 L (10-20) Glucose 168 H (70-99) mg/dl POC Glucose (70-99) POC Lactic Acid Teddy 6.53 H (0.90-1.70) mmol/L Lactate (0.4-2.0) mmol/L Magnesium (1.8-2.4) mg/dl Alkaline Phosphatase (45-117) U/L POC Troponin I 0.13 H (0-0.045) ng/ml Troponin I 0.144 H* (0-0.045) ng/ml Albumin (3.4-5.0) gm/dl Globulin (2.5-4.0) gm/dl Albumin/Globulin Ratio (0.9-2) Lipase (73-393) U/L 02/04/19 02/05/19 02/05/19 Range/Units 21:11 00:10 07:18 WBC 17.15 H (4.8-10.8) K/uL RBC 3.46 L (4.2-5.4) M/uL Hgb 10.2 L (12.0-16.0) g/dL Hct 32.1 L (37-47) % MCHC 31.8 L (32-36) g/dL RDW Std Deviation 69.6 H (36.4-46.3) fL RDW Coeff of Yogi 21.3 H (11.5-14.5) % MPV 10.6 H (7.4-10.4) fL Immature Gran # (Auto) 0.18 H (0.00-0.02) K/uL Neut # (Auto) 15.82 H (1.4-6.5) K/uL Lymph # (Auto) 0.38 L (1.2-3.4) K/uL [place] # (Auto) 0.76 H (0.11-0.59) K/uL Absolute Nucleated RBC 0.07 H (0-0) K/uL PT (9.0-12.0) Seconds INR (0.9-1.1) APTT (21.0-31.0) Seconds Sodium (136-145) mmol/L Potassium (3.5-5.1) mmol/L Chloride (98-107) mmol/L Carbon Dioxide (21-32) mmol/L Anion Gap (3-11) BUN (7-18) mg/dl Creatinine (0.6-1.2) mg/dl BUN/Creatinine Ratio (10-20) Glucose (70-99) mg/dl POC Glucose (70-99) POC Lactic Acid Teddy (0.90-1.70) mmol/L Lactate 2.2 H* (0.4-2.0) mmol/L Magnesium (1.8-2.4) mg/dl Alkaline Phosphatase (45-117) U/L POC Troponin I (0-0.045) ng/ml Troponin I 0.186 H* (0-0.045) ng/ml Albumin (3.4-5.0) gm/dl Globulin (2.5-4.0) gm/dl Albumin/Globulin Ratio (0.9-2) Lipase (73-393) U/L 02/05/19 02/05/19 02/05/19 Range/Units 07:18 07:18 07:35 WBC (4.8-10.8) K/uL RBC (4.2-5.4) M/uL Hgb (12.0-16.0) g/dL Hct (37-47) % MCHC (32-36) g/dL RDW Std Deviation (36.4-46.3) fL RDW Coeff of Yogi (11.5-14.5) % MPV (7.4-10.4) fL Immature Gran # (Auto) (0.00-0.02) K/uL Neut # (Auto) (1.4-6.5) K/uL Lymph # (Auto) (1.2-3.4) K/uL [place] # (Auto) (0.11-0.59) K/uL Absolute Nucleated RBC (0-0) K/uL PT 19.5 H (9.0-12.0) Seconds INR 2.0 H (0.9-1.1) APTT (21.0-31.0) Seconds Sodium 133 L (136-145) mmol/L Potassium 5.6 H (3.5-5.1) mmol/L Chloride (98-107) mmol/L Carbon Dioxide 19 L (21-32) mmol/L Anion Gap (3-11) BUN 37 H (7-18) mg/dl Creatinine 4.71 H* (0.6-1.2) mg/dl BUN/Creatinine Ratio 7.6 L (10-20) Glucose 107 H (70-99) mg/dl POC Glucose 133 H (70-99) POC Lactic Acid Teddy (0.90-1.70) mmol/L Lactate (0.4-2.0) mmol/L Magnesium (1.8-2.4) mg/dl Alkaline Phosphatase (45-117) U/L POC Troponin I (0-0.045) ng/ml Troponin I (0-0.045) ng/ml Albumin (3.4-5.0) gm/dl Globulin (2.5-4.0) gm/dl Albumin/Globulin Ratio (0.9-2) Lipase (73-393) U/L (1) Aspiration pneumonia Aspiration pneumonia type: unspecified Laterality: unspecified laterality Lung location: unspecified part of lung Qualified Code(s): J69.0 - Pneumonitis due to inhalation of food and vomit (2) Hypotension Hypotension type: unspecified hypotension type Qualified Code(s): I95.9 - Hypotension, unspecified
[2019-02-05 07:49] LABS: Prothrombin Time 19.5 Seconds (9.0-12.0)
[2019-02-05 08:12] LABS: Echinocytes 2+
[2019-02-05] MEDS: METOPROLOL SUCC 25MG EXT REL TAB PO SCH (08:23)
[2019-02-05] MEDS: CYANOCOBALAMIN 500 MCG TABLET (VITAMIN B-12) PO SCH (08:28)
[2019-02-05] MEDS: PANTOprazole 40 MG TAB PO SCH (08:28)
[2019-02-05] MEDS: CALCIUM ACETATE 667 MG CAP PO SCH ×3 (08:28→16:15)
[2019-02-05] MEDS: VITAMIN B COMPLEX TAB PO SCH (08:28)
[2019-02-05] MEDS: LACTOBACILLUS ACIDOPHILUS (FLORANEX) TAB PO SCH (08:28)
[2019-02-05 08:37] LABS: Creatinine Clr Calc Pharmacy 13.5 ml/min; Est GFR (African American) 10.6; Est GFR (Non-African American) 9.1
[2019-02-05 08:38] LABS: BUN Creatinine Ratio 7.6 (10-20); Calcium 8.6 mg/dl (8.5-10.1); Potassium 5.6 mmol/L (3.5-5.1)
[2019-02-05] MEDS ORDERED: MIDODRINE HCL 2.5 MG TAB PO SCH (09:00)
[2019-02-05] MEDS ORDERED: predniSONE 20 MG TAB PO SCH (09:00)
[2019-02-05] MEDS ORDERED: GABAPENTIN 300 MG CAP PO SCH (09:00)
--- NOTE | 2019-02-05 12:07 | Pharmacy Report ---
Pharmacy Abx Initial Consult - Date of Service February 05, 2019 - Pharmacy Dosing Scope Date of Consult: 02/05/19 Consultation requested by: Dr. Mcconnell Pharmacy is consulted to initiate Vancomycin + Zosyn IV dosing therapy, order appropriate labs and adjust drug dose/frequency. - Subjective The patient is a 63 year old F admitted on 02/04/19 20:45. - Objective Height: 5 ft 4 in Weight: 95.2 kg Vital Signs (Past 12hrs): Vital Signs Temp Pulse Pulse Resp BP BP Pulse Ox 02/05/19 11:21 36.7 C 91 H 20 71/45 L 91 02/05/19 09:00 84 02/05/19 07:14 84 18 92 02/05/19 07:10 36.7 C 81 18 85/51 L 93 02/05/19 03:13 36.8 C 102 H 18 70/49 L 91 02/05/19 01:57 86 18 91 Lab Results (24hrs): Laboratory Tests (24 Hours) 02/05/19 02/05/19 02/04/19 07:18 07:18 20:49 WBC 17.15 H Neut # (Auto) 15.82 H Creatinine 4.71 H* 4.47 H Est Cr Clr Drug Dosing 13.5 14.1 02/04/19 02/04/19 18:16 18:16 WBC 20.69 H Neut # (Auto) 17.77 H Creatinine 4.62 H* Est Cr Clr Drug Dosing 13.6 Micro Results: 02/04/19 21:11 Aerobic Blood Culture - Pending Blood Anaerobic Blood Culture - Pending 02/04/19 20:49 Aerobic Blood Culture - Pending Blood Anaerobic Blood Culture - Pending - Risk Factors for Resistance * Hospitalization for 48 hours or more within the past 90 days * Chronic dialysis within the past 30 days * DM * COPD - Assessment & Plan Assessment 63 year old F initiated on Vanco + Zosyn for aspiration pneumonia Pt on chronic HD M,W,F Plan Vancomycin IV * Estimated PK Parameters: N/A - dosing will be determined by vanco levels and HD schedule * Loading dose: 2,000 mg (21 mg/kg) given last evening in the ED @ 1941 * Pt ordered HD today ~ 1230pm. * Typically, vanco levels are ordered prior to HD and then vancomycin is ordered for after HD based on pre-HD level. However, since loading dose just given last evening, a pre-HD level would be supratherapeutic. Therefore, will check a vanco level 6 hrs post-HD and order one time dose based on level if needed. * Further dosing will be ordered per pre-HD levels starting 02/08/19 * Goal trough level for pulmonary : 15 to 20 mcg/mL Piperacillin/tazobactam * 4.5 g bolus administered over 30 minutes, then 4.5 g IV extended infusion every 12 hours for CrCl 20 mL/min or less and dialysis. * Aggressive dosing selected due to BMI 35 or more Pharmacy will continue to follow and will adjust dose/frequency as necessary. Thank you.
[2019-02-05] MEDS: GABAPENTIN 300 MG CAP PO SCH (16:14)
[2019-02-05] MEDS: MIDODRINE HCL 2.5 MG TAB PO SCH ×2 (16:15→16:17)
[2019-02-05] MEDS: HEPARIN SOD (PORCINE) 1000 UNIT/ML 10 ML VIAL IV SCH ×2 (18:46→18:47)
--- NOTE | 2019-02-05 19:09 | Hospitalist Progress Note ---
Date of Service February 05, 2019 Assessment & Plan (1) Aspiration pneumonia: (2) Hypoxia: Present on admission with abdomian pain and SOB CT showed Progressive consolidative infiltrate right base suggesting chronic aspiration. Hyperdense material within the tracheobronchial tree right base sug gesting aspiration Received IV zosyn and Vanco Continue IV Zosyn Blood cx pending WBC trending down Speech eval on board Last Video swallow on 01/19 showed silent aspiration Case discussed with speech not much could offer from speech standpoint during the acute illness recommended regular moist diet Will need outpatient speech therapy out once discharge Aspiration precaution Monitor CBC (3) Obesity hypoventilation syndrome: (4) COPD (chronic obstructive pulmonary disease): Hx chronic respiratory failure on 4-5L oxygen NC On albuterol and anoro ellipta at home COntinue Bipap at HS (5) Abdominal pain: CT abd pelvis showed no acute finding Tolerated diet Pain resolved (6) Hypotension: Chronic hypotension. Continue on midodrine BP stable (7) Hyperkalemia: K 5.6 HD done today Monitor BMP (8) Supratherapeutic INR: (9) Atrial fibrillation: Chronic a-fib on coumadin INR: 6.8 on admissission Received Vit K INR 2 today Resume coumadin (10) DM type 2 (diabetes mellitus, type 2): A1C: 8.8 on 01/17/19 Glucose:189 -on lantus and novolog sliding scale at home (11) ESRD (end stage renal disease) on dialysis: On MWF schedule HD done today (12) Depression: On sertraline (13) Hypothyroidism: On levothyroxine Subjective Pt was seen an examined Lying in bed with no distress Pt said that she does not have any abdominal pain anymore She said that she feels weak BP in the low side, but pt said that she feels much better Denies any chest pain, palpitation, dizziness and fever Physical Exam Physical Exam: General- No acute distress Head- atraumatic Eyes- PERRL, EOMI, ENT- oropharynx clear Neck- supple, no JVD Lungs- No wheezing Heart- irregular rhythm Abdomen- normal bowel sounds, soft, nontender Extremities- no calf tenderness Neuro- alert, oriented x 3; PERRL, EOMI; no facial palsy; no dysarthria Skin- warm & dry Results & Data Vital Signs (Past 12 Hours) Vital Signs Temp Pulse Pulse Resp BP BP Pulse Ox 02/05/19 17:32 94 02/05/19 15:22 92/50 L 02/05/19 15:11 36.6 C 98 H 16 62/39 L 94 02/05/19 15:10 62/39 L 02/05/19 13:28 95 H 24 93 02/05/19 11:21 36.7 C 91 H 20 71/45 L 91 02/05/19 09:00 84 02/05/19 07:14 84 18 92 02/05/19 07:10 36.7 C 81 18 85/51 L 93 (1) DM type 2 (diabetes mellitus, type 2) Diabetes mellitus complication detail: with polyneuropathy Diabetes mellitus complication status: with neurologic complications Diabetes mellitus shelter insulin use: with park worker use Qualified Code(s): E11.42 - Type 2 diabetes mellitus with diabetic polyneuropathy; 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 (2) Atrial fibrillation Atrial fibrillation type: paroxysmal Qualified Code(s): I48.0 - Paroxysmal atrial fibrillation (3) Depression Depression Type: unspecified Qualified Code(s): F32.9 - Major depressive disorder, single episode, unspecified (4) Hypothyroidism Hypothyroidism type: unspecified Qualified Code(s): E03.9 - Hypothyroidism, unspecified (5) Aspiration pneumonia Aspiration pneumonia type: unspecified Laterality: unspecified laterality Lung location: unspecified part of lung Qualified Code(s): J69.0 - Pneumonitis due to inhalation of food and vomit (6) COPD (chronic obstructive pulmonary disease) COPD type: emphysema Emphysema type: unspecified Qualified Code(s): J43.9 - Emphysema, unspecified (7) Hypotension Hypotension type: unspecified hypotension type Qualified Code(s): I95.9 - Hypotension, unspecified
--- NOTE | 2019-02-05 20:51 | Consultation Report ---
DATE OF CONSULTATION: 02/05/2019 REASON FOR CONSULTATION: Aspiration pneumonia/hypoxemia/COPD/obesity hypoventilation syndrome. HISTORY OF PRESENT ILLNESS: A 63-year-old white female well known to me with a past history of chronic hypoxic and hypercarbic respiratory failure who resides at home with her on 4 liters of oxygen and the use of BiPAP in the evening. She has a history of obesity hypoventilation syndrome, cor pulmonale, pulmonary hypertension and chronic right heart failure along with chronic atrial fibrillation on Coumadin therapy. She also suffers from end-stage renal disease due to hypertension, diabetes mellitus, and history of hypothyroidism. I did see patient in consultation during last hospitalization on 12/26/2018. At that time, I noted patient was on chronic hemodialysis and had had a Vang catheter placed recently prior to my visit. She had low grade fever and was fluid overloaded. There was a right lower lung opacity with atelectasis, cardiomegaly without overt signs of pulmonary edema seen. As stated earlier, her problems were well enumerated. She had been on Cefdinir as an outpatient and then switched to levofloxacin and was under the care of Dr. Hansa Ya. Blood cultures from the [facility] as an outpatient grew out Salmonella. She had been placed on IV Zosyn and Solu-Medrol and transitioned to Rocephin. The echocardiogram showed severely dysfunctional and dilated right ventricle, all consistent with the presence of severe pulmonary hypertension. She received nebulizer treatments with aerosolized bronchodilator, was on Anoro Ellipta inhaler and also received acetylcysteine through the neb treatments. A CAT scan at that time showed cardiomegaly and emphysema and pleural based nodules that were unchanged from 2015. She went home and apparently had not been doing well. She previously had been able to cook and clean but now she states she was too exhausted and dyspneic to do much of anything. She was hyperkalemic on admission. There is a question of silent aspiration as a video swallow earlier this month was abnormal. She was hypotensive in the ER and had to be hydrated, and has chronic anemia from her renal disease. She is on oxygen at 4 liters at home and receives BiPAP supplementation nocturnally. PHYSICAL EXAMINATION: VITAL SIGNS: Blood pressure 85/51, pulse 84 and irregular, respiratory rate 18, temperature 36.7, O2 sat 92% on 4 liters. SKIN: Without lesion. HEENT: Atraumatic, normocephalic. PERRLA. LUNGS: Distant to P and A. CARDIAC: Irregularly irregular rhythm with a ventricular response between 96 and 100, I do not discern a gallop. ABDOMEN: Soft, protuberant. EXTREMITIES: Trace pedal edema. No clubbing or peripheral cyanosis. NEUROLOGIC: Intact. IMAGING: Echocardiogram on 12/19/2018 was reviewed which showed an LVEF of 70%, but a flattened septum consistent with right ventricular pressure and volume overload and severe dilatation of the right ventricle. Estimated pulmonary arterial pressures are greater than 86 mmHg which represents severe pulmonary hypertension. Blood cultures have been negative. Chest x-ray on admission on 02/04/2019 showed chronic and postoperative changes with stable cardiomegaly. CTA done on 08/12/2018 was reviewed and showed cardiomegaly and emphysema, but these pleural based nodules were stable since 2014. LABORATORY DATA: White count 17,000, H and H 10.2 and 32 with hypochromic microcytic indices. Potassium 5.6 on admission. Creatinine 4.7. OVERALL ASSESSMENT: A 63-year-old white female with severe chronic obstructive pulmonary disease, obesity hypoventilation syndrome with cor pulmonale and profound pulmonary hypertension with chronic renal failure on hemodialysis, presents with hyperkalemia and intravascular volume depletion. Recent video swallow on 01/19/2019 was reviewed and shows moderately disordered pharyngeal motility with intermittent aspiration with a variety of right food substances. Minimal cough reflex. At this point in time, I have no evidence the patient has aspirated acutely or even chronically but would not be surprised if there is a degree of silent aspiration. I do not know that this requires additional treatment and except for guidance and counseling by speech therapy and continue nebulizer treatments as written for with the continued use of Anoro Ellipta inhaler and the use of a rescue inhaler or nebulizer with albuterol solution would seem appropriate to me. We will follow along with you. Thank you very much for this consultation. JUAN ANTONIO
[2019-02-06] MEDS: LEVALBUTEROL 1.25MG/0.5ML NEB INH SCH ×4 (01:16→20:04)
[2019-02-06] MEDS: IPRATROPIUM BROMIDE NEB SOLN 0.02% 2.5 ML VIAL INH SCH ×4 (01:17→20:04)
[2019-02-06] MEDS: PIPERACILLIN/TAZOBACTAM 4.5 GM in DEXTROSE 5% 100 ML IV SCH ×2 (05:15→18:36)
[2019-02-06] MEDS: HYDROCODONE/ACETAMOPHEN 5/325MG TAB PO PRN ×2 (05:23→18:24)
[2019-02-06 05:41] LABS: Hematocrit (blood only) 31.1 % (37-47); Hemoglobin 9.8 g/dL (12.0-16.0); Mean Corpuscular Hgb Conc 31.5 g/dL (32-36); Mean Corpuscular Volume 93.1 fL (80-100); Mean Platelet Volume 9.5 fL (7.4-10.4); Nucleated RBC # (auto) 0.11 K/uL (0-0); Nucleated RBC % (auto) 0.7 %; Platelet Count 147 K/uL (130-400); RDW Coefficient of Variation 21.4 % (11.5-14.5); RDW Standard Deviation 70.3 fL (36.4-46.3); Red Blood Count 3.34 M/uL (4.2-5.4); White Blood Count 15.43 K/uL (4.8-10.8)
[2019-02-06 05:52] LABS: INR 1.6 (0.9-1.1); Prothrombin Time 15.6 Seconds (9.0-12.0)
[2019-02-06 06:09] LABS: BUN Creatinine Ratio 6.9 (10-20); Creatinine Clr Calc Pharmacy 17.7 ml/min; Est GFR (African American) 14.5; Est GFR (Non-African American) 12.5
[2019-02-06] MEDS: LEVOTHYROXINE SODIUM 125 MCG TABLET PO SCH (06:30)
[2019-02-06] MEDS ORDERED: SODIUM CHLORIDE 0.9% 1000ML 1,000 ML IV PRN (07:00)
[2019-02-06] MEDS ORDERED: HEPARIN SOD (PORCINE) 1000 UNIT/ML 10 ML VIAL IV SCH (07:00)
[2019-02-06] MEDS: DOCUSATE SODIUM 100 MG CAP PO SCH ×2 (07:56→20:45)
[2019-02-06] MEDS: predniSONE 20 MG TAB PO SCH (07:56)
[2019-02-06] MEDS: METOPROLOL SUCC 25MG EXT REL TAB PO SCH (07:56)
[2019-02-06] MEDS: VITAMIN B COMPLEX TAB PO SCH (07:57)
[2019-02-06] MEDS: LACTOBACILLUS ACIDOPHILUS (FLORANEX) TAB PO SCH (07:57)
[2019-02-06] MEDS: CALCIUM ACETATE 667 MG CAP PO SCH ×3 (07:57→18:19)
[2019-02-06] MEDS: CYANOCOBALAMIN 500 MCG TABLET (VITAMIN B-12) PO SCH (07:57)
[2019-02-06] MEDS: INSULIN ASPART 100 UNITS/ML 3 ML PEN SC SCH ×4 (07:58→20:45)
[2019-02-06] MEDS: INSULIN GLARGINE SOLOSTAR 100 UNITS/ML 3 ML PEN SQ SCH ×2 (07:59→20:45)
[2019-02-06] MEDS: PANTOprazole 40 MG TAB PO SCH (07:59)
[2019-02-06] MEDS ORDERED: WARFARIN SOD 3 MG TAB PO SCH (16:00)
[2019-02-06] MEDS ORDERED: MIDODRINE HCL 2.5 MG TAB PO STA (16:32)
--- NOTE | 2019-02-06 17:10 | Hospitalist Progress Note ---
Date of Service February 06, 2019 Assessment & Plan (1) Aspiration pneumonia: (2) Hypoxia: Present on admission with abdomian pain and SOB CT showed Progressive consolidative infiltrate right base suggesting chronic aspiration. Hyperdense material within the tracheobronchial tree right base sug gesting aspiration On IV zosyn and Vanco Will d/c IV vanco and continue on IV zosyn Blood cx no growth so far WBC trending down Speech eval on board Last Video swallow on 01/19 showed silent aspiration Case discussed with speech not much could offer from speech standpoint during the acute illness recommended regular moist diet Will need outpatient speech therapy once discharge Aspiration precaution Monitor CBC (3) Obesity hypoventilation syndrome: (4) COPD (chronic obstructive pulmonary disease): Hx chronic respiratory failure on 4-5L oxygen NC On albuterol and anoro ellipta at home COntinue Bipap at HS (5) Abdominal pain: CT abd pelvis showed no acute finding Tolerated diet Pain resolved (6) Hypotension: BP improves Chronic hypotension. Continue on midodrine BP stable (7) Hyperkalemia: K 4 today HD done yesterday and will have HD today Monitor BMP (8) Supratherapeutic INR: INR on admission 6.8 Received Vit K INR today 1.6 Coumadin 4mg resume (9) Atrial fibrillation: Chronic a-fib on coumadin INR: 6.8 on admission Received Vit K INR 1.6 today Continue coumadin Continue metoprolol 12.5mg (10) DM type 2 (diabetes mellitus, type 2): A1C: 8.8 on 01/17/19 Glucose:189 on lantus and novolog sliding scale at home (11) ESRD (end stage renal disease) on dialysis: On [facility] schedule Nephrology on board (12) Depression: On sertraline (13) Hypothyroidism: On levothyroxine DVT px on coumadin CODE STATUS FULL CODE Subjective Pt was seen and examined Lying in bed with no distress She said that she was doing fine this morning until after therapy Pt said that she feels SOB after returning from therapy She is going to have HD today Denies any chest pain, palpitation and fever Physical Exam Physical Exam: General- No acute distress Head- atraumatic Eyes- PERRL, EOMI, ENT- oropharynx clear Neck- supple, no JVD Lungs- No wheezing Heart- irregular rhythm Abdomen- normal bowel sounds, soft, nontender Extremities- no calf tenderness Neuro- alert, oriented x 3; PERRL, EOMI; no facial palsy; no dysarthria Skin- warm & dry Results & Data Vital Signs (Past 12 Hours) Vital Signs Temp Pulse Pulse Resp BP BP Pulse Ox 02/06/19 17:00 100 H 100/36 L 02/06/19 16:40 100 H 85/49 L 02/06/19 16:20 95 H 71/33 L 02/06/19 16:00 90 64/34 L 02/06/19 15:40 94 H 134/75 02/06/19 15:20 107 H 78/31 L 02/06/19 15:09 37.0 C 92 H 92 H 93/38 L 02/06/19 14:48 92/54 L 02/06/19 11:54 36.4 C L 107 H 20 70/43 L 91 02/06/19 07:37 36.4 C L 82 20 109/66 02/06/19 07:08 83 18 96 (1) DM type 2 (diabetes mellitus, type 2) Diabetes mellitus complication detail: with polyneuropathy Diabetes mellitus complication status: with neurologic complications Diabetes mellitus long-term insulin use: with parts consultant use Qualified Code(s): E11.42 - Type 2 diabetes mellitus with diabetic polyneuropathy; Z79.4 - long-term (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 (2) Atrial fibrillation Atrial fibrillation type: paroxysmal Qualified Code(s): I48.0 - Paroxysmal atrial fibrillation (3) Depression Depression Type: unspecified Qualified Code(s): F32.9 - Major depressive disorder, single episode, unspecified (4) Hypothyroidism Hypothyroidism type: unspecified Qualified Code(s): E03.9 - Hypothyroidism, unspecified (5) Aspiration pneumonia Aspiration pneumonia type: unspecified Laterality: unspecified laterality Lung location: unspecified part of lung Qualified Code(s): J69.0 - Pneumonitis due to inhalation of food and vomit (6) COPD (chronic obstructive pulmonary disease) COPD type: emphysema Emphysema type: unspecified Qualified Code(s): J43.9 - Emphysema, unspecified (7) Hypotension Hypotension type: unspecified hypotension type Qualified Code(s): I95.9 - Hypotension, unspecified
[2019-02-06] MEDS ORDERED: WARFARIN SOD 1 MG TAB PO STA (17:17)
[2019-02-06] MEDS: ATORVASTATIN 40 MG TAB PO SCH (20:45)
[2019-02-07] MEDS: LEVALBUTEROL 1.25MG/0.5ML NEB INH SCH ×4 (01:09→19:14)
[2019-02-07] MEDS: IPRATROPIUM BROMIDE NEB SOLN 0.02% 2.5 ML VIAL INH SCH ×4 (01:09→19:14)
[2019-02-07] MEDS: PIPERACILLIN/TAZOBACTAM 4.5 GM in DEXTROSE 5% 100 ML IV SCH ×2 (03:45→16:13)
[2019-02-07] MEDS: LEVOTHYROXINE SODIUM 125 MCG TABLET PO SCH (06:34)
[2019-02-07] MEDS: MIDODRINE HCL 2.5 MG TAB PO SCH ×2 (06:35→17:15)
[2019-02-07] MEDS: HEPARIN SOD (PORCINE) 1000 UNIT/ML 10 ML VIAL IV SCH ×2 (06:51→06:52)
[2019-02-07 07:12] LABS: Hemoglobin 10.1 g/dL (12.0-16.0); Mean Corpuscular Hgb Conc 30.6 g/dL (32-36); Mean Corpuscular Volume 95.4 fL (80-100); Mean Platelet Volume 9.5 fL (7.4-10.4); Nucleated RBC # (auto) 0.06 K/uL (0-0); Nucleated RBC % (auto) 0.5 %; Platelet Count 136 K/uL (130-400); RDW Coefficient of Variation 21.9 % (11.5-14.5); RDW Standard Deviation 73.9 fL (36.4-46.3); Red Blood Count 3.46 M/uL (4.2-5.4); White Blood Count 12.36 K/uL (4.8-10.8)
[2019-02-07 07:30] LABS: INR 1.4 (0.9-1.1); Prothrombin Time 14.3 Seconds (9.0-12.0)
[2019-02-07 07:51] LABS: BUN Creatinine Ratio 7.2 (10-20); Calcium 8.8 mg/dl (8.5-10.1); Creatinine Clr Calc Pharmacy 20.1 ml/min; Est GFR (Non-African American) 14.6
[2019-02-07] MEDS: INSULIN ASPART 100 UNITS/ML 3 ML PEN SC SCH ×4 (08:11→20:48)
[2019-02-07] MEDS: INSULIN GLARGINE SOLOSTAR 100 UNITS/ML 3 ML PEN SQ SCH ×2 (08:11→20:47)
[2019-02-07] MEDS: DOCUSATE SODIUM 100 MG CAP PO SCH ×2 (08:12→20:46)
[2019-02-07] MEDS: CYANOCOBALAMIN 500 MCG TABLET (VITAMIN B-12) PO SCH (08:12)
[2019-02-07] MEDS: CALCIUM ACETATE 667 MG CAP PO SCH ×3 (08:12→17:15)
[2019-02-07] MEDS: predniSONE 20 MG TAB PO SCH (08:13)
[2019-02-07] MEDS: VITAMIN B COMPLEX TAB PO SCH (08:13)
[2019-02-07] MEDS: METOPROLOL SUCC 25MG EXT REL TAB PO SCH (08:13)
[2019-02-07] MEDS: PANTOprazole 40 MG TAB PO SCH (08:13)
[2019-02-07] MEDS: LACTOBACILLUS ACIDOPHILUS (FLORANEX) TAB PO SCH (08:13)
[2019-02-07] MEDS ORDERED: WARFARIN SOD 4 MG TAB PO SCH (16:00)
--- NOTE | 2019-02-07 18:08 | Hospitalist Progress Note ---
Date of Service February 07, 2019 Assessment & Plan (1) Aspiration pneumonia: (2) Hypoxia: Present on admission with abdomian pain and SOB CT showed Progressive consolidative infiltrate right base suggesting chronic aspiration. Hyperdense material within the tracheobronchial tree right base sug gesting aspiration On IV zosyn and Vanco Will d/c IV vanco and continue on IV zosyn Blood cx no growth so far WBC trending down Speech eval on board Last Video swallow on 01/19 showed silent aspiration Case discussed with speech not much could offer from speech standpoint during the acute illness recommended regular moist diet Will need outpatient speech therapy once discharge Aspiration precaution Monitor CBC (3) Obesity hypoventilation syndrome: (4) COPD (chronic obstructive pulmonary disease): Hx chronic respiratory failure on 4-5L oxygen NC On albuterol and anoro ellipta at home Continue Bipap at HS (5) Abdominal pain: CT abd pelvis showed no acute finding Tolerated diet Pain resolved (6) Hypotension: BP improves Chronic hypotension. Continue on midodrine BP stable (7) Hyperkalemia: K stable Monitor BMP (8) Supratherapeutic INR: INR on admission 6.8 Received Vit K INR today 1.4 On Coumadin 4mg , will increase coumadin (9) Atrial fibrillation: Chronic a-fib on coumadin INR: 6.8 on admission Received Vit K INR 1.4 today Will increase coumadin to 7 mg Continue metoprolol 12.5mg (10) DM type 2 (diabetes mellitus, type 2): A1C: 8.8 on 01/17/19 Glucose:189 on lantus and novolog sliding scale at home (11) ESRD (end stage renal disease) on dialysis: On [facility] schedule Nephrology on board (12) Depression: On sertraline (13) Hypothyroidism: On levothyroxine DVT px on coumadin CODE STATUS FULL CODE Disposition will discharge once medically stable Subjective Pt was seen and examined Lying in bed with no distress Pt said that she feels much better today She said that she was not able to tolerate the bipap last night Denies any chest pain, palpitation, fever Physical Exam Physical Exam: General- No acute distress Head- atraumatic Eyes- PERRL, EOMI, ENT- oropharynx clear Neck- supple, no JVD Lungs- + coarse BS Heart- irregular rhythm Abdomen- normal bowel sounds, soft, nontender Extremities- no calf tenderness Neuro- alert, oriented x 3; PERRL, EOMI; no facial palsy; no dysarthria Skin- warm & dry Results & Data Vital Signs (Past 12 Hours) Vital Signs Temp Pulse Pulse Resp BP BP Pulse Ox 02/07/19 14:59 36.6 C 101 H 18 100/67 97 02/07/19 14:29 80 18 94 02/07/19 12:00 36.5 C 80 20 74/54 L 94 02/07/19 07:49 36.3 C L 85 20 89/61 L 94 02/07/19 07:07 80 20 94 (1) DM type 2 (diabetes mellitus, type 2) Diabetes mellitus complication detail: with polyneuropathy Diabetes mellitus complication status: with neurologic complications Diabetes mellitus fdc insulin use: with fdc use Qualified Code(s): E11.42 - Type 2 diabetes mellitus with diabetic polyneuropathy; Z79.4 - automatic blocker (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 (2) Atrial fibrillation Atrial fibrillation type: paroxysmal Qualified Code(s): I48.0 - Paroxysmal atrial fibrillation (3) Depression Depression Type: unspecified Qualified Code(s): F32.9 - Major depressive disorder, single episode, unspecified (4) Hypothyroidism Hypothyroidism type: unspecified Qualified Code(s): E03.9 - Hypothyroidism, unspecified (5) Aspiration pneumonia Aspiration pneumonia type: unspecified Laterality: unspecified laterality Lung location: unspecified part of lung Qualified Code(s): J69.0 - Pneumonitis due to inhalation of food and vomit (6) COPD (chronic obstructive pulmonary disease) COPD type: emphysema Emphysema type: unspecified Qualified Code(s): J43.9 - Emphysema, unspecified (7) Hypotension Hypotension type: unspecified hypotension type Qualified Code(s): I95.9 - Hypotension, unspecified
[2019-02-07] MEDS ORDERED: WARFARIN SOD 3 MG TAB PO ONE (18:25)
[2019-02-07] MEDS: HYDROCODONE/ACETAMOPHEN 5/325MG TAB PO PRN (19:33)
[2019-02-07] MEDS ORDERED: LORazepam 0.5 MG TAB PO STA (20:22)
[2019-02-07] MEDS: ATORVASTATIN 40 MG TAB PO SCH (20:47)
[2019-02-08] MEDS: IPRATROPIUM BROMIDE NEB SOLN 0.02% 2.5 ML VIAL INH SCH ×4 (02:08→19:36)
[2019-02-08] MEDS: LEVALBUTEROL 1.25MG/0.5ML NEB INH SCH ×4 (02:09→19:36)
[2019-02-08] MEDS: PIPERACILLIN/TAZOBACTAM 4.5 GM in DEXTROSE 5% 100 ML IV SCH ×2 (03:04→16:13)
[2019-02-08] MEDS: MIDODRINE HCL 2.5 MG TAB PO SCH ×4 (05:51→18:51)
[2019-02-08] MEDS: LEVOTHYROXINE SODIUM 125 MCG TABLET PO SCH (05:53)
[2019-02-08 06:26] LABS: Hematocrit (blood only) 32.1 % (37-47); Hemoglobin 9.9 g/dL (12.0-16.0); Mean Corpuscular Hgb Conc 30.8 g/dL (32-36); Mean Corpuscular Volume 95.5 fL (80-100); Mean Platelet Volume 10.2 fL (7.4-10.4); Nucleated RBC # (auto) 0.02 K/uL (0-0); Nucleated RBC % (auto) 0.1 %; Platelet Count 144 K/uL (130-400); RDW Coefficient of Variation 21.7 % (11.5-14.5); RDW Standard Deviation 73.9 fL (36.4-46.3); Red Blood Count 3.36 M/uL (4.2-5.4); White Blood Count 13.96 K/uL (4.8-10.8)
[2019-02-08 06:46] LABS: INR 1.7 (0.9-1.1); Prothrombin Time 16.4 Seconds (9.0-12.0)
[2019-02-08 07:14] LABS: BUN Creatinine Ratio 7.8 (10-20); Creatinine Clr Calc Pharmacy 13.3 ml/min; Est GFR (African American) 10.2; Est GFR (Non-African American) 8.8; Potassium 4.1 mmol/L (3.5-5.1)
[2019-02-08] MEDS: CALCIUM ACETATE 667 MG CAP PO SCH ×3 (07:51→17:51)
[2019-02-08] MEDS: DOCUSATE SODIUM 100 MG CAP PO SCH ×2 (07:51→21:06)
[2019-02-08] MEDS: LACTOBACILLUS ACIDOPHILUS (FLORANEX) TAB PO SCH (07:52)
[2019-02-08] MEDS: predniSONE 20 MG TAB PO SCH (07:53)
[2019-02-08] MEDS: VITAMIN B COMPLEX TAB PO SCH (07:54)
[2019-02-08] MEDS: PANTOprazole 40 MG TAB PO SCH (07:54)
[2019-02-08] MEDS: CYANOCOBALAMIN 500 MCG TABLET (VITAMIN B-12) PO SCH (07:55)
[2019-02-08] MEDS: HYDROCODONE/ACETAMOPHEN 5/325MG TAB PO PRN (08:03)
[2019-02-08] MEDS ORDERED: HEPARIN BOLUS IV ONE ×2 (08:19→10:00)
[2019-02-08] MEDS: INSULIN ASPART 100 UNITS/ML 3 ML PEN SC SCH ×4 (08:54→21:07)
[2019-02-08] MEDS: INSULIN GLARGINE SOLOSTAR 100 UNITS/ML 3 ML PEN SQ SCH ×2 (08:55→21:07)
[2019-02-08] MEDS: METOPROLOL SUCC 25MG EXT REL TAB PO SCH (09:56)
--- NOTE | 2019-02-08 13:03 | Hospitalist Progress Note ---
Date of Service February 08, 2019 Assessment & Plan (1) Aspiration pneumonia: (2) Hypoxia: Present on admission with abdomian pain and SOB CT showed Progressive consolidative infiltrate right base suggesting chronic aspiration. Hyperdense material within the tracheobronchial tree right base sug gesting aspiration On IV zosyn and Vanco Will d/c IV vanco and continue on IV zosyn Blood cx no growth so far WBC t 13 today Speech eval on board Last Video swallow on 01/19 showed silent aspiration Case discussed with speech not much could offer from speech standpoint during the acute illness recommended regular moist diet Will need outpatient speech therapy once discharge Will transition to oral abx in am Aspiration precaution Monitor CBC (3) Obesity hypoventilation syndrome: (4) COPD (chronic obstructive pulmonary disease): Hx chronic respiratory failure on 4-5L oxygen NC On albuterol and anoro ellipta at home Will add very low dose steroid due to hyperglycemia episode with steroid in the past Continue Bipap at HS (5) Abdominal pain: CT abd pelvis showed no acute finding Tolerated diet Pain resolved (6) Hypotension: Chronic hypotension. BP has been fluctuates Dropped in the 60's systolic today, then increased in the 120 systolic Not sure if BP reading is accurate since pt is asymptomatic/ awake/ follow comands and talkative Continue on midodrine Will add midodrine IV to be given prior to HD Will hold metoprolol today Monitor BP (7) Hyperkalemia: K stable Monitor BMP Stable (8) Supratherapeutic INR: INR on admission 6.8 Received Vit K INR today 1.7 Continue coumadin 7 mg daily (9) Atrial fibrillation: Chronic a-fib on coumadin INR: 6.8 on admission Received Vit K INR 1.7 today Continue coumadin to 7 mg Hold metoprolol 12.5mg due to low BP (10) DM type 2 (diabetes mellitus, type 2): A1C: 8.8 on 01/17/19 Glucose:189 on lantus and novolog sliding scale at home Will monitor BS closely due to prednisone dose given today (11) ESRD (end stage renal disease) on dialysis: On [facility] schedule Nephrology on board Will add midodrine to be given before HD (12) Depression: On sertraline (13) Hypothyroidism: On levothyroxine Pain syndrome Will hold on narcotic due to low BP Will add tylenol prn and lidocaine gel DVT px on coumadin CODE STATUS FULL CODE Disposition will discharge once medically stable Subjective Pt was seen and examined Lying in bed with no distress Pt said that early today she was having SOB She said that after the breathing treatment her breathing feels much better She was supposed to get HD done today that was cancelled due to low BP in the 60's Not sure if her BP is accurate because she is asymptomatic, talking and follow command She has been having episodes where systolic BP dropped in the 70's then hour later back to systolic 90 to 100's BP currently is 124/72 She has not been moving her bowel Denies any chest pain, palpitation, dizziness and fever Physical Exam Physical Exam: General- No acute distress Head- atraumatic Eyes- PERRL, EOMI, ENT- oropharynx clear Neck- supple, no JVD Lungs- + coarse BS (+crackles) Heart- irregular rhythm Abdomen- normal bowel sounds, soft, nontender Extremities- no calf tenderness Neuro- alert, oriented x 3; PERRL, EOMI; no facial palsy; no dysarthria Skin- warm & dry Results & Data Vital Signs (Past 12 Hours) Vital Signs Temp Pulse Pulse Resp BP BP Pulse Ox 02/08/19 11:43 36.5 C 84 20 124/72 98 02/08/19 09:50 64/40 L 62/40 L 02/08/19 07:57 36.4 C L 83 20 113/74 98 02/08/19 07:01 83 18 98 02/08/19 04:40 36.4 C L 86 18 82/48 L 95 02/08/19 02:26 100 H 20 96 02/08/19 02:09 100 H 20 96 (1) DM type 2 (diabetes mellitus, type 2) Diabetes mellitus complication detail: with polyneuropathy Diabetes mellitus complication status: with neurologic complications Diabetes mellitus technician terminal and repeater insulin use: with usp use Qualified Code(s): E11.42 - Type 2 diabetes mellitus with diabetic polyneuropathy; Z79.4 - local intermodal truck driver (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 (2) Atrial fibrillation Atrial fibrillation type: paroxysmal Qualified Code(s): I48.0 - Paroxysmal atrial fibrillation (3) Depression Depression Type: unspecified Qualified Code(s): F32.9 - Major depressive disorder, single episode, unspecified (4) Hypothyroidism Hypothyroidism type: unspecified Qualified Code(s): E03.9 - Hypothyroidism, unspecified (5) Aspiration pneumonia Aspiration pneumonia type: unspecified Laterality: unspecified laterality Lung location: unspecified part of lung Qualified Code(s): J69.0 - Pneumonitis due to inhalation of food and vomit (6) COPD (chronic obstructive pulmonary disease) COPD type: emphysema Emphysema type: unspecified Qualified Code(s): J43.9 - Emphysema, unspecified (7) Hypotension Hypotension type: unspecified hypotension type Qualified Code(s): I95.9 - Hypotension, unspecified
[2019-02-08] MEDS ORDERED: predniSONE 20 MG TAB PO STA (13:04)
[2019-02-08] MEDS ORDERED: DOCUSATE SODIUM 100 MG CAP PO SCH (13:10)
[2019-02-08] MEDS ORDERED: POLYETHYLENE (MIRALAX) 17 GM PACK PO ONE (13:15)
[2019-02-08] MEDS: LIDOCAINE HCL 5% OINT 30 GM TUBE EXT PRN (14:03)
--- NOTE | 2019-02-08 14:41 | Progress Note ---
DATE: 02/08/2019 NEPHROLOGY PROGRESS NOTE SUBJECTIVE: Earlier today, we continued her new dialysis because even before dialysis, her blood pressure was very low at 64. She feels weak, but does not seem to have any worsening shortness of breath than usual. She had dialysis on Friday. Denies chest pain. Does have chronic baseline shortness of breath. OBJECTIVE: VITAL SIGNS: Blood pressure 108/69, 84 per minute pulse, respiratory rate 22 per minute, afebrile, 98% on 6-liter nasal cannula. CHEST: Bilateral decreased breath sounds, poor inspiratory effort. Occasional crackles in the right lung. CARDIOVASCULAR: S1 and S2 distant. ABDOMEN: Soft, obese, nontender. EXTREMITIES: Shows 1+ edema with chronic changes. LABORATORY TESTS: Hemoglobin 9.9, WBC count 13.96, platelet count 144, BUN 38, creatinine 4.85, potassium 4.1, sodium 137. ASSESSMENT AND PLAN: A 63-year-old female with end-stage renal disease on hemodialysis Friday, Friday, Friday and Friday, was admitted with recurrent pneumonia, presumed to be aspiration. 1. End-stage renal disease: Her blood pressure remains low and is causing significant problem. The plan was to do dialysis today, but because of her low blood pressure, it had to be postponed. At this time, she does not have any major electrolyte imbalance or any significant fluid overload. We will do her dialysis tomorrow and most likely again on Friday. I would also add midodrine as needed, but I doubt it will do a whole lot as she is already on a midodrine. Case was discussed with hospitalist. JUAN ANTONIO
[2019-02-08] MEDS: WARFARIN SOD 5 MG TAB PO SCH (16:12)
[2019-02-08] MEDS: WARFARIN SOD 2 MG TAB PO SCH (16:12)
[2019-02-08] MEDS: GABAPENTIN 300 MG CAP PO SCH (16:12)
[2019-02-08] MEDS ORDERED: POLYETHYLENE (MIRALAX) 17 GM PACK ONE (17:58)
--- NOTE | 2019-02-08 18:20 | Pulmonology Progress Note ---
Date of Service February 08, 2019 Assessment & Plan (1) Acute and chronic respiratory failure with hypoxia: Likely multifactorial due to aspiration pneumonia, OHS COPD and some fluid overload intermittantly as well as deconditioning agree with levalbuterol and ipratropium as well as BIPAP but no food 4 hours before BIPAP is applied would add a a controller med such as symbicort (she is on ROBI and BEBETO she needs LABA) strict adherence to aspiration precautions agree with zosyn and vancomycin would suggest to taper down the prednisone over a week (2) Congestive heart failure: restrict totala fluids to 1-1.5 liters a day so she would have no mre than what HD removes + insensible losses Defer non pulmonary management to primary team At this point pulmonary will follow PRN please call with specific querries if any Heart failure chronicity: chronic Heart failure type: unspecified Qualified Code(s): I50.9 - Heart failure, unspecified Subjective Seen at the bedside. A pleasant 63 yo female patient with ESRD on HD, OHS on BIPAP, COPD as well as confirmed risk of aspiration by Speech and swallow assessment. Evidence of aspiration pneumonia She says she is about the same this afternoon. Bedside POCUS showed minimal <50 ml pleural fluid on the right. Review of Systems Review of Systems: All systems reviewed & are unremarkable except as noted in HPI & below Physical Exam Physical Exam: obese in bed with limiteed motion Constitutional: not in acute distress Eyes: PERRL, conjunctivae normal, anicteric sclerae Neck: trachea midline, no thyromegaly Cardiovascular: nl s1 s2 no murmurs + really dry LE Gastrointestinal (Abdomen): normal bowel sounds, soft, nontender, no hepatosplenomegaly central obesity Neurologic: weak symmetrically 3-4/5 but no focal deficits Results & Data Vital Signs (Past 12 Hours) Vital Signs Temp Pulse Resp BP BP Pulse Ox 02/08/19 15:17 36.5 C 98 H 20 103/71 96 02/08/19 14:10 91 H 18 93 02/08/19 12:52 108/69 02/08/19 11:43 36.5 C 84 20 124/72 98 02/08/19 09:50 64/40 L 62/40 L 02/08/19 07:57 36.4 C L 83 20 113/74 98 02/08/19 07:01 83 18 98
[2019-02-08] MEDS: BUDESONIDE/FORMOTEROL FUMARATE 160/4.5 60 PUFFS/INHALER INH SCH (21:05)
[2019-02-08] MEDS: ATORVASTATIN 40 MG TAB PO SCH (21:06)
[2019-02-09] MEDS: IPRATROPIUM BROMIDE NEB SOLN 0.02% 2.5 ML VIAL INH SCH ×4 (01:39→19:47)
[2019-02-09] MEDS: LEVALBUTEROL 1.25MG/0.5ML NEB INH SCH ×4 (01:39→19:47)
[2019-02-09] MEDS: PIPERACILLIN/TAZOBACTAM 4.5 GM in DEXTROSE 5% 100 ML IV SCH ×2 (04:01→16:53)
[2019-02-09] MEDS: LEVOTHYROXINE SODIUM 125 MCG TABLET PO SCH (05:26)
[2019-02-09] MEDS ORDERED: SODIUM CHLORIDE 0.9% 1000ML 1,000 ML IV PRN (07:00)
[2019-02-09 07:37] LABS: Hematocrit (blood only) 33.1 % (37-47); Hemoglobin 10.2 g/dL (12.0-16.0); Mean Corpuscular Hgb Conc 30.8 g/dL (32-36); Mean Corpuscular Volume 94.8 fL (80-100); Platelet Count 147 K/uL (130-400); RDW Coefficient of Variation 21.5 % (11.5-14.5); RDW Standard Deviation 73.5 fL (36.4-46.3); Red Blood Count 3.49 M/uL (4.2-5.4); White Blood Count 16.82 K/uL (4.8-10.8)
[2019-02-09 07:46] LABS: Prothrombin Time 28.3 Seconds (9.0-12.0)
[2019-02-09] MEDS: INSULIN ASPART 100 UNITS/ML 3 ML PEN SC SCH ×4 (07:49→21:41)
[2019-02-09] MEDS: INSULIN GLARGINE SOLOSTAR 100 UNITS/ML 3 ML PEN SQ SCH ×2 (07:49→21:40)
[2019-02-09] MEDS: PANTOprazole 40 MG TAB PO SCH (07:50)
[2019-02-09] MEDS: predniSONE 20 MG TAB PO SCH (07:50)
[2019-02-09] MEDS: LACTOBACILLUS ACIDOPHILUS (FLORANEX) TAB PO SCH (07:50)
[2019-02-09] MEDS: BUDESONIDE/FORMOTEROL FUMARATE 160/4.5 60 PUFFS/INHALER INH SCH ×2 (07:50→20:28)
[2019-02-09] MEDS: CALCIUM ACETATE 667 MG CAP PO SCH ×3 (07:50→16:58)
[2019-02-09] MEDS: VITAMIN B COMPLEX TAB PO SCH (07:50)
[2019-02-09] MEDS: CYANOCOBALAMIN 500 MCG TABLET (VITAMIN B-12) PO SCH (07:51)
[2019-02-09] MEDS: DOCUSATE SODIUM 100 MG CAP PO SCH ×2 (07:54→20:27)
[2019-02-09] MEDS: METOPROLOL SUCC 25MG EXT REL TAB PO SCH (07:55)
[2019-02-09 08:23] LABS: BUN Creatinine Ratio 9.3 (10-20); Calcium 9.2 mg/dl (8.5-10.1); Creatinine Clr Calc Pharmacy 10.5 ml/min; Est GFR (African American) 7.7; Est GFR (Non-African American) 6.6; Potassium 4.4 mmol/L (3.5-5.1)
[2019-02-09] MEDS: MIDODRINE HCL 2.5 MG TAB PO SCH (09:24)
[2019-02-09] MEDS: HYDROCODONE/ACETAMOPHEN 5/325MG TAB PO PRN ×2 (14:42→21:46)
[2019-02-09] MEDS: WARFARIN SOD 2 MG TAB PO SCH (16:56)
[2019-02-09] MEDS: WARFARIN SOD 5 MG TAB PO SCH (16:57)
[2019-02-09] MEDS: LIDOCAINE HCL 5% OINT 30 GM TUBE EXT PRN (19:05)
--- NOTE | 2019-02-09 19:14 | Hospitalist Progress Note ---
Date of Service February 09, 2019 Assessment & Plan (1) Aspiration pneumonia: (2) Hypoxia: Present on admission with abdomian pain and SOB CT showed Progressive consolidative infiltrate right base suggesting chronic aspiration. Hyperdense material within the tracheobronchial tree right base sug gesting aspiration On IV zosyn and Vanco Will d/c IV vanco and continue on IV zosyn Blood cx no growth so far WBC t 13 today Speech eval on board Last Video swallow on 01/19 showed silent aspiration Pulmonology on board recommended no food 4 hours before BIPAP is applied Symbicord added Continue prednisone taper course Case discussed with speech not much could offer from speech standpoint during the acute illness recommended regular moist diet Will need outpatient speech therapy once discharge Will transition to oral abx in am Aspiration precaution Monitor CBC (3) Obesity hypoventilation syndrome: (4) COPD (chronic obstructive pulmonary disease): Hx chronic respiratory failure on 4-5L oxygen NC On albuterol and anoro ellipta at home Continue Symbicort Continue steroid watch BS closely since pt is very sensitive to steroid (hyperglycemia episode with steroid in the past ) Continue Bipap at HS (5) Abdominal pain: CT abd pelvis showed no acute finding Tolerated diet Pain resolved (6) Hypotension: Chronic hypotension. BP has been fluctuates Dropped in the 60's systolic today, then increased in the 120 systolic Not sure if BP reading is accurate since pt is asymptomatic/ awake/ follow comands and talkative Continue on midodrine Will add midodrine IV to be given prior to HD Will hold metoprolol today Monitor BP (7) Hyperkalemia: K stable Monitor BMP Stable (8) Supratherapeutic INR: INR on admission 6.8 Received Vit K INR today 3 Continue coumadin 7 mg daily (9) Atrial fibrillation: Chronic a-fib on coumadin INR: 6.8 on admission Received Vit K INR 3 today Continue coumadin to 7 mg Hold metoprolol 12.5mg due to low BP (10) DM type 2 (diabetes mellitus, type 2): A1C: 8.8 on 01/17/19 Glucose:189 on lantus and novolog sliding scale at home Will monitor BS closely due to prednisone dose given today (11) ESRD (end stage renal disease) on dialysis: On [facility] [place] Nephrology on board Will add midodrine to be given before HD (12) Depression: On sertraline (13) Hypothyroidism: On levothyroxine Pain syndrome Will hold on narcotic due to low BP Will add tylenol prn and lidocaine gel DVT px on coumadin CODE STATUS FULL CODE Disposition will discharge once medically stable Subjective Pt was seen and examined Lying in bed with no distress Pt had HD done today She said that her breathing seems a little better today Denies any chest pain, palpitation,dizziness and fever Physical Exam Physical Exam: General- No acute distress Head- atraumatic Eyes- PERRL, EOMI, ENT- oropharynx clear Neck- supple, no JVD Lungs- + mild coarse BS Heart- irregular rhythm Abdomen- normal bowel sounds, soft, nontender Extremities- no calf tenderness Neuro- alert, oriented x 3; PERRL, EOMI; no facial palsy; no dysarthria Skin- warm & dry Results & Data Vital Signs (Past 12 Hours) Vital Signs Temp Pulse Pulse Pulse Pulse Pulse Resp 02/09/19 15:23 36.8 C 98 H 16 02/09/19 15:15 108 H 98 H 18 02/09/19 13:15 36.6 C 90 16 L 02/09/19 13:00 95 H 02/09/19 12:40 61 02/09/19 12:23 60 02/09/19 12:05 76 02/09/19 11:40 71 02/09/19 11:20 88 02/09/19 11:05 94 H 02/09/19 10:40 86 02/09/19 10:25 78 02/09/19 10:00 92 H 02/09/19 09:40 64 02/09/19 09:20 88 02/09/19 09:08 89 02/09/19 08:59 36.5 C 93 H 90 02/09/19 08:00 88 02/09/19 07:19 36.5 C 16 L 84 16 02/09/19 07:16 90 20 BP BP Pulse Ox 02/09/19 15:23 97/58 L 96 02/09/19 15:15 96 02/09/19 13:15 96/56 L 02/09/19 13:00 96/64 L 02/09/19 12:40 86/35 L 02/09/19 12:23 98/71 L 02/09/19 12:05 92/62 L 02/09/19 11:40 104/26 L 02/09/19 11:20 85/51 L 02/09/19 11:05 89/53 L 02/09/19 10:40 82/48 L 02/09/19 10:25 81/63 L 02/09/19 10:00 86/50 L 02/09/19 09:40 80/54 L 02/09/19 09:20 85/50 L 02/09/19 09:08 86/54 L 02/09/19 08:59 02/09/19 08:00 02/09/19 07:19 90/58 L 95 02/09/19 07:16 97 (1) DM type 2 (diabetes mellitus, type 2) Diabetes mellitus complication detail: with polyneuropathy Diabetes mellitus complication status: with neurologic complications Diabetes mellitus skilled nursing insulin use: with skilled nursing use Qualified Code(s): E11.42 - Type 2 diabetes mellitus with diabetic polyneuropathy; Z79.4 - prizer hand (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 (2) Atrial fibrillation Atrial fibrillation type: paroxysmal Qualified Code(s): I48.0 - Paroxysmal atrial fibrillation (3) Depression Depression Type: unspecified Qualified Code(s): F32.9 - Major depressive disorder, single episode, unspecified (4) Hypothyroidism Hypothyroidism type: unspecified Qualified Code(s): E03.9 - Hypothyroidism, unspecified (5) Aspiration pneumonia Aspiration pneumonia type: unspecified Laterality: unspecified laterality Lung location: unspecified part of lung Qualified Code(s): J69.0 - Pneumonitis due to inhalation of food and vomit (6) COPD (chronic obstructive pulmonary disease) COPD type: emphysema Emphysema type: unspecified Qualified Code(s): J43.9 - Emphysema, unspecified (7) Hypotension Hypotension type: unspecified hypotension type Qualified Code(s): I95.9 - Hypotension, unspecified
--- NOTE | 2019-02-09 19:52 | Nephrology Progress Note ---
Date of Service February 09, 2019 Assessment & Plan (1) ESRD (end stage renal disease) on dialysis: on MWFSat HD to manage volume status > She tolerated HD this morning with net UF 1.5l. She has chronic intradialytic hypotension. Next HD tomorrow (2) Acute and chronic respiratory failure with hypoxia: w/ chronic aspiration and on 4L 02nc chronically > recommend 1.2L Fluid limit and aggressive dialysis (3) Hyperkalemia: Will continue 2k bath for dialysis -ensure dialysis diet if/ when taking po -manage w/ dialysis (4) Aspiration pneumonia: silent aspiration on swallow study earlier this month (5) Hypotension: continue midodrine and more frequent dialysis as above (6) Chronic anemia: chronic, moderate; managed on dialysis pls check hgb [id number] Subjective ESRD patient seen and examined while on hemodialysis. No SOB. She tolerated HD well this morning Review of Systems Review of Systems: All systems reviewed & are unremarkable except as noted in HPI & below Physical Exam Physical Exam: General exam: Appears comfortable, no acute distress HEENT: Pupils are equal and reactive to light Neck: No JVD, neck is supple trachea is midline Respiratory system: Clear breath sounds bilaterally. Gastrointestinal: Abdomen is soft, non distended, non tender, bowel sounds are present CVS: Regular rate and rhythm. No murmurs, rubs or gallops Musculoskeletal: No joint or muscle tenderness Extremities: Non tender, no edema, peripheral pulses are present Neuro: Oriented, no tremors, no focal neurological deficits Skin: No rashes Results & Data Vital Signs (Past 12 Hours) Vital Signs Temp Pulse Pulse Pulse Pulse Pulse Resp 02/09/19 15:23 36.8 C 98 H 16 02/09/19 15:15 108 H 98 H 18 02/09/19 13:15 36.6 C 90 16 L 02/09/19 13:00 95 H 02/09/19 12:40 61 02/09/19 12:23 60 02/09/19 12:05 76 02/09/19 11:40 71 02/09/19 11:20 88 02/09/19 11:05 94 H 02/09/19 10:40 86 02/09/19 10:25 78 02/09/19 10:00 92 H 02/09/19 09:40 64 02/09/19 09:20 88 02/09/19 09:08 89 02/09/19 08:59 36.5 C 93 H 90 02/09/19 08:00 88 BP BP Pulse Ox 02/09/19 15:23 97/58 L 96 02/09/19 15:15 96 02/09/19 13:15 96/56 L 02/09/19 13:00 96/64 L 02/09/19 12:40 86/35 L 02/09/19 12:23 98/71 L 02/09/19 12:05 92/62 L 02/09/19 11:40 104/26 L 02/09/19 11:20 85/51 L 02/09/19 11:05 89/53 L 02/09/19 10:40 82/48 L 02/09/19 10:25 81/63 L 02/09/19 10:00 86/50 L 02/09/19 09:40 80/54 L 02/09/19 09:20 85/50 L 02/09/19 09:08 86/54 L 02/09/19 08:59 02/09/19 08:00 Laboratory Results Laboratory Results - last 24 hr 02/08/19 02/09/19 02/09/19 20:05 07:10 07:26 WBC RBC Hgb Hct MCV MCH MCHC RDW Std Deviation RDW Coeff of Yogi Plt Count MPV PT 28.3 H INR 3.0 H Sodium Potassium Chloride Carbon Dioxide Anion Gap BUN Creatinine Est Cr Clr Drug Dosing Est GFR ( Amer) Est GFR (Non-Af Amer) BUN/Creatinine Ratio Glucose POC Glucose 296 H 225 H Calcium 02/09/19 02/09/19 02/09/19 07:26 07:26 13:19 WBC 16.82 H RBC 3.49 L Hgb 10.2 L Hct 33.1 L MCV 94.8 MCH 29.2 MCHC 30.8 L RDW Std Deviation 73.5 H RDW Coeff of Yogi 21.5 H Plt Count 147 MPV 9.0 PT INR Sodium 137 Potassium 4.4 Chloride 100 Carbon Dioxide 24 Anion Gap 12.0 H BUN 57 H Creatinine 6.15 H* D Est Cr Clr Drug Dosing 10.5 Est GFR ( Amer) 7.7 Est GFR (Non-Af Amer) 6.6 BUN/Creatinine Ratio 9.3 L Glucose 210 H POC Glucose 170 H Calcium 9.2 02/09/19 16:44 WBC RBC Hgb Hct MCV MCH MCHC RDW Std Deviation RDW Coeff of Yogi Plt Count MPV PT INR Sodium Potassium Chloride Carbon Dioxide Anion Gap BUN Creatinine Est Cr Clr Drug Dosing Est GFR ( Amer) Est GFR (Non-Af Amer) BUN/Creatinine Ratio Glucose POC Glucose 194 H Calcium (1) Aspiration pneumonia Aspiration pneumonia type: unspecified Laterality: unspecified laterality Lung location: unspecified part of lung Qualified Code(s): J69.0 - Pneumonitis due to inhalation of food and vomit (2) Hypotension Hypotension type: unspecified hypotension type Qualified Code(s): I95.9 - Hypotension, unspecified
[2019-02-09] MEDS: ATORVASTATIN 40 MG TAB PO SCH (20:27)
[2019-02-10] MEDS: IPRATROPIUM BROMIDE NEB SOLN 0.02% 2.5 ML VIAL INH SCH ×4 (01:58→19:32)
[2019-02-10] MEDS: LEVALBUTEROL 1.25MG/0.5ML NEB INH SCH ×4 (01:58→19:32)
[2019-02-10] MEDS: PIPERACILLIN/TAZOBACTAM 4.5 GM in DEXTROSE 5% 100 ML IV SCH ×2 (05:13→16:14)
[2019-02-10] MEDS: LEVOTHYROXINE SODIUM 125 MCG TABLET PO SCH (05:15)
[2019-02-10 07:30] LABS: Creatinine Clr Calc Pharmacy 15.4 ml/min; Est GFR (African American) 12.4; Est GFR (Non-African American) 10.7
[2019-02-10] MEDS ORDERED: SODIUM CHLORIDE 0.9% 1000ML 1,000 ML IV PRN (08:33)
[2019-02-10] MEDS: LACTOBACILLUS ACIDOPHILUS (FLORANEX) TAB PO SCH (08:38)
[2019-02-10] MEDS: DOCUSATE SODIUM 100 MG CAP PO SCH ×2 (08:38→21:06)
[2019-02-10] MEDS: CALCIUM ACETATE 667 MG CAP PO SCH ×3 (08:38→17:53)
[2019-02-10] MEDS: CYANOCOBALAMIN 500 MCG TABLET (VITAMIN B-12) PO SCH (08:38)
[2019-02-10] MEDS: PANTOprazole 40 MG TAB PO SCH (08:38)
[2019-02-10] MEDS: predniSONE 20 MG TAB PO SCH (08:39)
[2019-02-10] MEDS: MIDODRINE HCL 2.5 MG TAB PO SCH ×2 (08:40→17:54)
[2019-02-10] MEDS: VITAMIN B COMPLEX TAB PO SCH (08:40)
[2019-02-10] MEDS: BUDESONIDE/FORMOTEROL FUMARATE 160/4.5 60 PUFFS/INHALER INH SCH ×2 (08:40→21:07)
[2019-02-10] MEDS: INSULIN ASPART 100 UNITS/ML 3 ML PEN SC SCH ×4 (08:45→21:08)
[2019-02-10] MEDS ORDERED: EPOETIN ALFA 4,000 UNIT/ML VIAL IV ONE (08:46)
[2019-02-10] MEDS ORDERED: HEPARIN SOD (PORCINE) 1000 UNIT/ML 10 ML VIAL IV SCH (09:00)
[2019-02-10] MEDS: HEPARIN SOD (PORCINE) 1000 UNIT/ML 10 ML VIAL IV SCH ×3 (10:30→12:30)
[2019-02-10] MEDS: INSULIN GLARGINE SOLOSTAR 100 UNITS/ML 3 ML PEN SQ SCH ×2 (10:56→21:08)
--- NOTE | 2019-02-10 11:20 | Nephrology Progress Note ---
Date of Service February 10, 2019 Assessment & Plan (1) ESRD (end stage renal disease) on dialysis: on MWFSat HD to manage volume status > She tolerated HD yesterday with net UF 1.5l. She is tolerating dialysis well this morning. Target UF 2.5 L. She has chronic intradialytic hypotension. Next HD Friday (2) Acute and chronic respiratory failure with hypoxia: w/ chronic aspiration and on 4L 02nc chronically > continue 1.2L Fluid limit and aggressive dialysis (3) Hyperkalemia: Improved on dialysis. -ensure dialysis diet if/ when taking po -manage w/ dialysis (4) Hypotension: continue midodrine and more frequent dialysis as above (5) Chronic anemia: chronic, moderate; managed on dialysis. Will hold off on Epogen today. pls check hgb [id number] Subjective Patient with ESRD seen in follow-up. She was seen and examined while on dialysis. She is complaining of congestion and shortness of breath this morning. She also has a sore throat. She had dialysis yesterday as well. She has chronic intradialytic hypotension Review of Systems Review of Systems: All systems reviewed & are unremarkable except as noted in HPI & below Physical Exam Physical Exam: General exam: Appears comfortable, no acute distress HEENT: Pupils are equal and reactive to light Neck: No JVD, neck is supple trachea is midline Respiratory system: Clear breath sounds bilaterally. Gastrointestinal: Abdomen is soft, non distended, non tender, bowel sounds are present CVS: Regular rate and rhythm. No murmurs, rubs or gallops Musculoskeletal: No joint or muscle tenderness Extremities: Non tender, 1+ edema, peripheral pulses are present Neuro: Oriented, no tremors, no focal neurological deficits Skin: No rashes Results & Data Vital Signs (Past 12 Hours) Vital Signs Temp Pulse Pulse Pulse Resp BP BP 02/10/19 11:00 102 H 60/30 L 02/10/19 10:30 101 H 72/30 L 02/10/19 10:00 79 72/30 L 02/10/19 09:27 99 H 63/44 L 02/10/19 09:21 36.6 C 70 99 H 02/10/19 07:27 99 H 18 02/10/19 07:10 36.5 C 107 H 16 107/75 02/10/19 02:00 103 H 103 H 18 02/10/19 00:08 36.8 C 102 H 20 87/54 L 02/09/19 23:22 121 H 24 Pulse Ox 02/10/19 11:00 02/10/19 10:30 02/10/19 10:00 02/10/19 09:27 02/10/19 09:21 02/10/19 07:27 93 02/10/19 07:10 94 02/10/19 02:00 93 02/10/19 00:08 90 02/09/19 23:22 91 Laboratory Results Laboratory Results - last 24 hr 02/09/19 02/09/19 02/09/19 13:19 16:44 20:51 Creatinine Est Cr Clr Drug Dosing Est GFR ( Amer) Est GFR (Non-Af Amer) POC Glucose 170 H 194 H 188 H 02/10/19 02/10/19 06:45 07:30 Creatinine 4.14 H D Est Cr Clr Drug Dosing 15.4 Est GFR ( Amer) 12.4 Est GFR (Non-Af Amer) 10.7 POC Glucose 103 H (1) Hypotension Hypotension type: unspecified hypotension type Qualified Code(s): I95.9 - Hypotension, unspecified
[2019-02-10] MEDS: METOPROLOL SUCC 25MG EXT REL TAB PO SCH (11:48)
--- NOTE | 2019-02-10 12:30 | Hospitalist Progress Note ---
Date of Service February 10, 2019 Assessment & Plan (1) Aspiration pneumonia: Recent admission 01/13/19-01/20/19 in which developed worsening SOB and hypoxia and CXR with progression of consolidation/infiltrate RLL and pt with suspected aspiration PNA. Pt with hx silent aspiration seen on video swallow study on 01/19/19. ER T:36.4, P: 79-101, R: 22, BP: 62/42 up to 86/38, sats drop to high 80's on chronic 4L oxygen NC WBC: 20 CT ABD/PELVIS: Progressive consolidative infiltrate right base suggesting chronic aspiration. Hyperdense material within the tracheobronchial tree right base suggesting aspiration, possibly on a prior video swallow procedure. CXR: Chronic and postoperative change. Mild stable cardiomegaly. (2) Hypoxia: Present on admission with abd pain and SOB CT showed Progressive consolidative infiltrate right base suggesting chronic aspiration. Hyperdense material within the tracheobronchial tree right base suggesting aspiration On IV zosyn Blood cx no growth so far Speech on board Last Video swallow on 01/19 showed silent aspiration Pulmonology on board recommended no food 4 hours before BIPAP is applied Symbicort Prednisone taper recommended regular moist diet Will need outpatient speech therapy once discharge Will transition to oral abx on DC Aspiration precaution Monitor CBC (3) Obesity hypoventilation syndrome: Hx chronic respiratory failure on 4-5L oxygen NC Uses bipap HS In ER pt noted to have sat's drop to high 80's on 4L NC (4) COPD (chronic obstructive pulmonary disease): Hx chronic respiratory failure on 4-5L oxygen NC On albuterol and anoro ellipta at home Continue Symbicort Continue steroid watch BS closely since pt is very sensitive to steroid (hyperglycemia episode with steroid in the past ) Continue Bipap at HS (5) Abdominal pain: CT abd pelvis showed no acute finding Tolerated diet Pain resolved (6) Hypotension: Chronic hypotension. BP has been fluctuates Dropped in the 60's systolic today, then increased in the 120 systolic Not sure if BP reading is accurate since pt is asymptomatic/ awake/ follow coman ds and talkative Continue on midodrine Will add midodrine IV to be given prior to HD (7) Hyperkalemia: K stable Monitor BMP Stable, on hd (8) Supratherapeutic INR: INR on admission 6.8 Received Vit K Daily INR Coumadin (9) Atrial fibrillation: Chronic a-fib on coumadin INR: 6.8 on admission Received Vit K Hold metoprolol 12.5mg due to low BP (10) DM type 2 (diabetes mellitus, type 2): A1C: 8.8 on 01/17/19 Glucose:189 on lantus and novolog sliding scale at home Will monitor BS closely due to prednisone dose given today (11) ESRD (end stage renal disease) on dialysis: On MWFS schedule Nephrology on board Midodrine to be given before HD (12) Depression: On sertraline (13) Hypothyroidism: On levothyroxine Pain syndrome Will hold on narcotic due to low BP Will add tylenol prn and lidocaine gel DVT px on coumadin CODE STATUS FULL CODE Disposition will discharge once medically stable ROS-No Headache, No Visual Changes, No Nausea, No Vomiting, No Fever, No Chills, No Neck Pain or Stiffness, No Chest Pain, No Palpitations,+SOB, +NAVARRO, +Cough, No Sputum, +Wheezing, No Abdominal Pain, No Diarrhea, No Hematemesis, No Hemoptysis, No Unexpected Weight Loss, No Flank pain, No Melena, No Hematochezia, No Frequency, No Urgency, No Burning, No Hematuria, No Rashes, No Diaphoresis. Appetite is Normal Physical Exam Gen-AAO x 3, NAD, Afebrile, Obese Head-NCAT, EOMI, PERRLA, Anicteric Sclera, No Posterior Pharyngeal Erythema Neck-Supple, No JVD, No Thyromegaly, No Masses, No LAD, No Bruits Lungs-Clear to Auscultation Bilaterally, No Rales, No Rhonchi, No Wheezing, No Crepitus Chest-No S4, +S1, +S2, No S3, No Murmurs, No Rubs, No Gallops, No Ectopy Abdomen-Soft, Bowel Sounds Present, Non Tender, Non Distended, No Hepatomegaly, No Splenomegaly, No Palpable Masses, No Rebound, No Rigidity, No Guarding Musculoskeletal-Full Range of Motion Bilaterally, No CVAT Extremities-Chronic stasis changes, Stiff legs c edema and erythema B/L-All Chronic Nuero-Cranial Nerves II-XII grossly intact, Motor WNL, DTRs WNL, Strength WNL, Non Focal Psych-Normal Mood Results & Data Vital Signs (Past 12 Hours) Vital Signs Temp Pulse Pulse Pulse Resp BP BP 02/10/19 12:00 100 H 95/63 L 02/10/19 11:30 93 H 77/46 L 02/10/19 11:00 102 H 60/30 L 02/10/19 10:30 101 H 72/30 L 02/10/19 10:00 79 72/30 L 02/10/19 09:27 99 H 63/44 L 02/10/19 09:21 36.6 C 70 99 H 02/10/19 07:27 99 H 18 02/10/19 07:10 36.5 C 107 H 16 107/75 02/10/19 02:00 103 H 103 H 18 Pulse Ox 02/10/19 12:00 02/10/19 11:30 02/10/19 11:00 02/10/19 10:30 02/10/19 10:00 02/10/19 09:27 02/10/19 09:21 02/10/19 07:27 93 02/10/19 07:10 94 02/10/19 02:00 93 Current Diagnoses Anemia, unspecified (02/04/19) Hypothyroidism, unspecified (02/04/19) Type 2 diabetes mellitus with diabetic polyneuropathy (02/04/19) Morbid (severe) obesity with alveolar hypoventilation (02/04/19) Hyperkalemia (02/04/19) Major depressive disorder, single episode, unspecified (02/04/19) Paroxysmal atrial fibrillation (02/04/19) Heart failure, unspecified (02/04/19) Hypotension, unspecified (02/04/19) Emphysema, unspecified (02/04/19) Pneumonitis due to inhalation of food and vomit (02/04/19) Acute and chronic respiratory failure with hypoxia (02/04/19) End stage renal disease (02/04/19) Hypoxemia (02/04/19) Unspecified abdominal pain (02/04/19) Abnormal coagulation profile (02/04/19) intermodal customer service (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 (02/04/19) Dependence on renal dialysis (02/04/19) Allergies bacitracin Allergy (Intermediate, Verified 01/13/19 06:23) RASH,ITCH celecoxib Allergy (Intermediate, Verified 01/13/19 06:23) RASH TO SULFA DRUGS neomycin Allergy (Intermediate, Verified 01/13/19 06:23) RASH,ITCH polymyxin B Allergy (Intermediate, Verified 01/13/19 06:23) RASH,ITCH Sulfa (Sulfonamide Antibiotics) Allergy (Intermediate, Verified 01/13/19 06:23) RASH,HAS TAKEN GLIPIZIDE W/O REACTION tigecycline Adverse Reaction (Severe, Verified 01/13/19 06:23) MILD PANCREATITIS codeine Adverse Reaction (Intermediate, Verified 01/13/19 06:23) GI UPSET Height/Weight/Isolation Height 5 ft 4 in Weight 97 kg Isolation Type Contact Precautions Chemistry 02/09/19 02/10/19 07:26 06:45 Sodium 137 Potassium 4.4 Chloride 100 Carbon Dioxide 24 Anion Gap 12.0 H BUN 57 H Creatinine 6.15 H* D 4.14 H D Glucose 210 H Microbiology 02/04/19 21:11 Blood Aerobic Blood Culture - Final No growth in Aerobic bottle after 5 days. 02/04/19 21:11 Blood Anaerobic Blood Culture - Final No growth in Anaerobic bottle after 5 days. 02/04/19 20:49 Blood Aerobic Blood Culture - Final No growth in Aerobic bottle after 5 days. 02/04/19 20:49 Blood Anaerobic Blood Culture - Final No growth in Anaerobic bottle after 5 days. (1) Aspiration pneumonia Aspiration pneumonia type: unspecified Laterality: unspecified laterality Lung location: unspecified part of lung Qualified Code(s): J69.0 - Pneumonitis due to inhalation of food and vomit (2) COPD (chronic obstructive pulmonary disease) COPD type: emphysema Emphysema type: unspecified Qualified Code(s): J43.9 - Emphysema, unspecified (3) Hypotension Hypotension type: unspecified hypotension type Qualified Code(s): I95.9 - Hypotension, unspecified (4) Atrial fibrillation Atrial fibrillation type: paroxysmal Qualified Code(s): I48.0 - Paroxysmal atrial fibrillation (5) DM type 2 (diabetes mellitus, type 2) Diabetes mellitus rn long term care insulin use: with [facility] use Diabetes mellitus complication status: with neurologic complications Diabetes mellitus complication detail: with polyneuropathy Qualified Code(s): E11.42 - Type 2 diabetes mellitus with diabetic polyneuropathy; Z79.4 - intermodal customer service (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 (6) Depression Depression Type: unspecified Qualified Code(s): F32.9 - Major depressive disorder, single episode, unspecified (7) Hypothyroidism Hypothyroidism type: unspecified Qualified Code(s): E03.9 - Hypothyroidism, unspecified
[2019-02-10] MEDS: HYDROCODONE/ACETAMOPHEN 5/325MG TAB PO PRN (16:10)
[2019-02-10] MEDS: WARFARIN SOD 2 MG TAB PO SCH (16:11)
[2019-02-10] MEDS: WARFARIN SOD 5 MG TAB PO SCH (16:12)
[2019-02-10] MEDS: GABAPENTIN 300 MG CAP PO SCH (16:13)
[2019-02-10] MEDS: ATORVASTATIN 40 MG TAB PO SCH (21:07)
[2019-02-11] MEDS: LEVALBUTEROL 1.25MG/0.5ML NEB INH SCH ×2 (01:08→06:59)
[2019-02-11] MEDS: IPRATROPIUM BROMIDE NEB SOLN 0.02% 2.5 ML VIAL INH SCH ×2 (01:08→06:59)
[2019-02-11] MEDS: PIPERACILLIN/TAZOBACTAM 4.5 GM in DEXTROSE 5% 100 ML IV SCH (05:01)
[2019-02-11] MEDS: LEVOTHYROXINE SODIUM 125 MCG TABLET PO SCH (06:17)
[2019-02-11 06:52] LABS: Hemoglobin 10.9 g/dL (12.0-16.0); Mean Corpuscular Hgb Conc 30.3 g/dL (32-36); Mean Corpuscular Volume 95.2 fL (80-100); Mean Platelet Volume 9.3 fL (7.4-10.4); Nucleated RBC # (auto) 0.04 K/uL (0-0); Nucleated RBC % (auto) 0.2 %; Platelet Count 194 K/uL (130-400); RDW Coefficient of Variation 21.1 % (11.5-14.5); RDW Standard Deviation 72.4 fL (36.4-46.3); Red Blood Count 3.78 M/uL (4.2-5.4); White Blood Count 16.16 K/uL (4.8-10.8)
[2019-02-11 07:25] VITALS: BP 124/82; TEMP 97.3
[2019-02-11 07:27] LABS: BUN Creatinine Ratio 8.5 (10-20); Calcium 9.6 mg/dl (8.5-10.1); Creatinine Clr Calc Pharmacy 17.9 ml/min; Est GFR (African American) 14.9; Est GFR (Non-African American) 12.8; Potassium 3.8 mmol/L (3.5-5.1)
[2019-02-11] MEDS: METOPROLOL SUCC 25MG EXT REL TAB PO SCH (08:21)
[2019-02-11] MEDS: PANTOprazole 40 MG TAB PO SCH (08:24)
[2019-02-11] MEDS: predniSONE 20 MG TAB PO SCH (08:24)
[2019-02-11] MEDS: LACTOBACILLUS ACIDOPHILUS (FLORANEX) TAB PO SCH (08:25)
[2019-02-11] MEDS: BUDESONIDE/FORMOTEROL FUMARATE 160/4.5 60 PUFFS/INHALER INH SCH (08:25)
[2019-02-11] MEDS: CYANOCOBALAMIN 500 MCG TABLET (VITAMIN B-12) PO SCH (08:26)
[2019-02-11] MEDS: CALCIUM ACETATE 667 MG CAP PO SCH ×2 (08:26→12:21)
[2019-02-11] MEDS: DOCUSATE SODIUM 100 MG CAP PO SCH (08:27)
[2019-02-11] MEDS: VITAMIN B COMPLEX TAB PO SCH (08:27)
[2019-02-11] MEDS: INSULIN GLARGINE SOLOSTAR 100 UNITS/ML 3 ML PEN SQ SCH (08:29)
[2019-02-11] MEDS: INSULIN ASPART 100 UNITS/ML 3 ML PEN SC SCH ×2 (08:30→12:20)
--- NOTE | 2019-02-11 09:35 | Discharge Summary ---
Date of Service February 11, 2019 Admission HPI Per Admitting Provider Pt is 63 y/o F with PMH chronic hypoxic respiratory failure on 4-5L NC, obesity hypoventilation syndrome, uses Bipap HS, pulmonary hypertension, chronic right heart failure, atrial fibrillation on Coumadin, ESRD on HD, DM II, chronic hypotension, HLD, hypothyroidism presented to ER with C/O abdominal pain x 2-3 days. Pt c/o intermittent burning type sensation also across her breasts x 2-3 days. Denies any current pain. Pt was concerned she may have cellulitis as the pain felt similar, however has not had any skin erythema. Pt reports hx varicose veins to abdomen and thinks this is causing her abdominal pain. Pt states today felt more SOB, however feels less SOB since being in ER. Pt's daughter states that pt is always "hunched over", even with eating. Denies any noted choking recently. Pt initially denies cough, however is noted to have cough productive white sputum while in ER which she reports is chronic. Daughter also reports that pt seems to be having more anxiety and anxiety attacks in which she gets anxious and SOB and pt's daughter has to instruct her to calm down and focus on her breathing and symptoms resolve. Has ativan to use, but reports doesn't use often. reports buttock sore that have been applying aquacel to with some improvement. Denies fever/chills, diaphoresis, N/V/D/C, ARNOLD, dizziness, syncope, vision changes, neck pain, orthopnea, palpitations, hemoptysis, sore throat, otalgia, rhinorrhea, increased weakness, increased extremity edema, other rashes. History admission 01/13/19-01/20/19 for permacath dislodgement and replacement. During admission pt developed worsening SOB and hypoxia and CXR with progression of consolidation/infiltrate RLL and pt with suspected aspiration PNA. Was initially treated with IV cefepime then transitioned to Augmentin to complete 7 day course. Was also given Solumedrol then transitioned to oral prednisone. Had video swallow study: moderate disordered pharyngeal motility, intermittent aspiration and diet of mechanical soft /slippery diet and was taught "chin tuck " method during swallowing Admission Exam Per Admitting Provider ROS-No Headache, No Visual Changes, No Nausea, No Vomiting, No Fever, No Chills, No Neck Pain or Stiffness, No Chest Pain, No Palpitations,+SOB, +NAVARRO, +Cough, No Sputum, neg Wheezing, No Abdominal Pain, No Diarrhea, No Hematemesis, No Hemoptysis, No Unexpected Weight Loss, No Flank pain, No Melena, No Hematochezia, No Frequency, No Urgency, No Burning, No Hematuria, No Rashes, No Diaphoresis. Appetite is Normal Physical Exam Gen-AAO x 3, NAD, Afebrile, Obese Head-NCAT, EOMI, PERRLA, Anicteric Sclera, No Posterior Pharyngeal Erythema Neck-Supple, No JVD, No Thyromegaly, No Masses, No LAD, No Bruits Lungs-Clear to Auscultation Bilaterally, No Rales, No Rhonchi, No Wheezing, No Crepitus Chest-No S4, +S1, +S2, No S3, No Murmurs, No Rubs, No Gallops, No Ectopy Abdomen-Soft, Bowel Sounds Present, Non Tender, Non Distended, No Hepatomegaly, No Splenomegaly, No Palpable Masses, No Rebound, No Rigidity, No Guarding Musculoskeletal-Full Range of Motion Bilaterally, No CVAT Extremities-Chronic stasis changes, Stiff legs c edema and erythema B/L-All Chronic Nuero-Cranial Nerves II-XII grossly intact, Motor WNL, DTRs WNL, Strength WNL, Non Focal Psych-Normal Mood Principal Diagnosis Aspiration pneumonia COPD exacerbation Obesity hypoventilation syndrome Sleep apnea Chronic diastolic congestive heart failure Hyperglycemia Leukocytosis Acute on chronic respiratory failure Atrial fibrillation Pulmonary hypertension Type 2 diabetes Hypertension Hypothyroidism Hyperlipidemia Depression Neuropathy Discharge Data Allergies Allergy/AdvReac Type Severity Reaction Status Date / Time bacitracin Allergy Intermediate RASH,ITCH Verified 01/13/19 06:23 celecoxib Allergy Intermediate RASH TO Verified 01/13/19 06:23 SULFA DRUGS neomycin Allergy Intermediate RASH,ITCH Verified 01/13/19 06:23 polymyxin B Allergy Intermediate RASH,ITCH Verified 01/13/19 06:23 Sulfa (Sulfonamide Allergy Intermediate RASH,HAS Verified 01/13/19 06:23 Antibiotics) TAKEN GLIPIZIDE W/O REACTION tigecycline AdvReac Severe MILD Verified 01/13/19 06:23 PANCREATITIS codeine AdvReac Intermediate GI UPSET Verified 01/13/19 06:23 Consultations 02/04/19 19:18 ED Decision to Admit Stat 02/04/19 21:56 Consult Nephrology Routine Consult Pulmonology Routine Ordered Studies 02/04/19 18:09 CT abd pelvis wo con Stat Current Diagnoses Anemia, unspecified (02/04/19) Hypothyroidism, unspecified (02/04/19) Type 2 diabetes mellitus with diabetic polyneuropathy (02/04/19) Morbid (severe) obesity with alveolar hypoventilation (02/04/19) Hyperkalemia (02/04/19) Major depressive disorder, single episode, unspecified (02/04/19) Paroxysmal atrial fibrillation (02/04/19) Heart failure, unspecified (02/04/19) Hypotension, unspecified (02/04/19) Emphysema, unspecified (02/04/19) Pneumonitis due to inhalation of food and vomit (02/04/19) Acute and chronic respiratory failure with hypoxia (02/04/19) End stage renal disease (02/04/19) Hypoxemia (02/04/19) Unspecified abdominal pain (02/04/19) Abnormal coagulation profile (02/04/19) assisted (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 (02/04/19) Dependence on renal dialysis (02/04/19) Allergies bacitracin Allergy (Intermediate, Verified 01/13/19 06:23) RASH,ITCH celecoxib Allergy (Intermediate, Verified 01/13/19 06:23) RASH TO SULFA DRUGS neomycin Allergy (Intermediate, Verified 01/13/19 06:23) RASH,ITCH polymyxin B Allergy (Intermediate, Verified 01/13/19 06:23) RASH,ITCH Sulfa (Sulfonamide Antibiotics) Allergy (Intermediate, Verified 01/13/19 06:23) RASH,HAS TAKEN GLIPIZIDE W/O REACTION tigecycline Adverse Reaction (Severe, Verified 01/13/19 06:23) MILD PANCREATITIS codeine Adverse Reaction (Intermediate, Verified 01/13/19 06:23) GI UPSET Height/Weight/Isolation Height 5 ft 4 in Weight 95.5 kg Isolation Type Contact Precautions Chemistry 02/10/19 02/11/19 06:45 06:37 Sodium 138 Potassium 3.8 Chloride 101 Carbon Dioxide 28 Anion Gap 9.0 BUN 30 H Creatinine 4.14 H D 3.56 H D Glucose 82 Microbiology 02/04/19 21:11 Blood Aerobic Blood Culture - Final No growth in Aerobic bottle after 5 days. 02/04/19 21:11 Blood Anaerobic Blood Culture - Final No growth in Anaerobic bottle after 5 days. 02/04/19 20:49 Blood Aerobic Blood Culture - Final No growth in Aerobic bottle after 5 days. 02/04/19 20:49 Blood Anaerobic Blood Culture - Final No growth in Anaerobic bottle after 5 days. Hospital Course (1) Aspiration pneumonia: Recent admission 01/13/19-01/20/19 in which developed worsening SOB and hypoxia and CXR with progression of consolidation/infiltrate RLL and pt with suspected aspiration PNA. Pt with hx silent aspiration seen on video swallow study on 01/19/19. ER T:36.4, P: 79-101, R: 22, BP: 62/42 up to 86/38, sats drop to high 80's on chronic 4L oxygen NC WBC: 20 CT ABD/PELVIS: Progressive consolidative infiltrate right base suggesting chronic aspiration. Hyperdense material within the tracheobronchial tree right base suggesting aspiration, possibly on a prior video swallow procedure. CXR: Chronic and postoperative change. Mild stable cardiomegaly. (2) Hypoxia: Present on admission with abd pain and SOB CT showed Progressive consolidative infiltrate right base suggesting chronic aspiration. Hyperdense material within the tracheobronchial tree right base suggesting aspiration On IV zosyn Blood cx no growth so far Speech on board Last Video swallow on 01/19 showed silent aspiration Pulmonology on board recommended no food 4 hours before BIPAP is applied Symbicort Prednisone taper recommended regular moist diet Will need outpatient speech therapy once discharge Will transition to Augmentin (3) Obesity hypoventilation syndrome: Hx chronic respiratory failure on 4L oxygen NC Uses bipap HS (4) COPD (chronic obstructive pulmonary disease): Hx chronic respiratory failure on 4-5L oxygen NC On albuterol and anoro ellipta at home Continue Symbicort Continue steroid watch BS closely since pt is very sensitive to steroid (hyperglycemia episode with steroid in the past ) Continue Bipap at HS, no eating 4 hours prior to BiPAP (5) Abdominal pain: CT abd pelvis showed no acute finding Tolerated diet Pain resolved (6) Hypotension: Chronic hypotension. BP has been fluctuates 120s systolic Continue on midodrine midodrine (7) Hyperkalemia: Managed on hemodialysis (8) Supratherapeutic INR: INR 3.0 Coumadin (9) Atrial fibrillation: Chronic a-fib on coumadin INR: 6.8 on admission, now 3 Received Vit K Hold metoprolol 12.5mg due to low BP (10) DM type 2 (diabetes mellitus, type 2): Resume home regimen (11) ESRD (end stage renal disease) on dialysis: On MWFS schedule Nephrology on board Midodrine to be given before HD (12) Depression: On sertraline (13) Hypothyroidism: On levothyroxine CODE STATUS FULL CODE Disposition discharge today Total Time Total Time Spent Total Time Spent (In Minutes): 45 minutes Total Time Includes: Examination of the Patient, Discharge Planning, Medication Reconciliation and Communication With Other Providers Discharge Plan Discharge Items Patient Disposition: Home - Self-Care Reason For Visit: RESP FAILURE Discharge Diagnosis: COPD exacerbation Obesity hypoventilation syndrome Sleep apnea Chronic diastolic congestive heart failure Hyperglycemia Leukocytosis Acute on chronic respiratory failure Atrial fibrillation Pulmonary hypertension Type 2 diabetes Hypertension Hypothyroidism Hyperlipidemia Depression Neuropathy Condition: Good Discharge Goals: Decrease discomfort and Improve function Activity: Resume your previous activity Lifting: None Bathing: No limitations Sexual Activity: When tolerated Exercise/Sports: None Driving/Machine Use: No limitations Weightbearing: Left weightbearing and Right weightbearing Non-emergency contact: Primary Care Provider, Jira Developer and Sales And Marketing Specialist Call non-emergency contact if: you have any medication questions and your symptoms worsen Follow-up/Referrals: Narendra Gonzalez MD [Primary Care Provider] - Antonio Schroeder MD [Physician] - Glen Piper MD [Surgeon] - (1 to 2 weeks) Litzy Jauregui MD [Physician] - (1 to 2 weeks) Diet: Carb Consistent or DM2, Dialysis Renal and Heart Healthy Addtl Provider Instructions: Nothing at this time Prescriptions: New prednisone 20 mg Tablet 40 mg PO DAILY Qty: 10 RF: 0 warfarin [Coumadin] 2 mg Tablet 2 mg PO DAILY@1600 Qty: 90 RF: 0 Symbicort 160-4.5 mcg/actuation Hfa Aerosol Inhaler 2 puff inhalation BID Qty: 1 RF: 0 amoxicillin-pot clavulanate [Augmentin] 875-125 mg tablet 1 tab PO BID Qty: 10 RF: 0 Continued hydrocodone-acetaminophen 5-325 mg tablet 1 tab PO Q6H PRN (Reason: Pain) RF: 0 sertraline [Zoloft] 100 mg tablet 150 mg PO PM RF: 0 atorvastatin 40 mg tablet 40 mg PO HS RF: 0 insulin glargine [Lantus Solostar U-100 Insulin] 100 unit/mL (3 mL) insulin pen 30 units SQ HS RF: 0 metoprolol succinate 25 mg capsule,sprinkle,ER 24hr 12.5 mg PO DAILY RF: 0 levothyroxine [Levo-T] 125 mcg tablet 125 mcg PO QAM RF: 0 albuterol sulfate 90 mcg/actuation HFA aerosol inhaler 2 puffs INH Q6H PRN (Reason: Shortness Of Breath) RF: 0 magnesium oxide 400 mg (241.3 mg magnesium) tablet 400 mg PO DAILY RF: 0 pantoprazole [Protonix] 20 mg tablet,delayed release (DR/EC) 20 mg PO QAM RF: 0 albuterol sulfate 2.5 mg /3 mL (0.083 %) solution for nebulization 1.25 mg INH Q4H PRN (Reason: Shortness Of Breath Or Wheezing) RF: 0 ascorbic acid (vitamin C) 500 mg capsule 500 mg PO DAILY RF: 0 cholecalciferol (vitamin D3) 1,000 unit capsule 1,000 units PO DAILY RF: 0 lorazepam 0.5 mg Tablet 0.5 mg PO UD PRN (Reason: Anxiety) RF: 0 cyanocobalamin (vitamin B-12) 1,000 mcg Tablet 1,000 mcg PO DAILY RF: 0 gabapentin 300 mg Capsule 300 mg PO UD RF: 0 Novolog Flexpen U-100 Insulin 100 unit/mL (3 mL) Insulin Pen 15 unit SUBCUT UD RF: 0 calcium acetate 667 mg Capsule 2,668 mg PO TIDM RF: 0 prednisone 5 mg Tablet 5 mg PO DAILY RF: 0 docusate sodium [Colace] 100 mg Capsule 100 mg PO BID RF: 0 nystatin 100,000 unit/gram Powder 1 applic TOPICAL BID RF: 0 Anoro Ellipta 62.5-25 mcg/actuation Blister With Device 1 inh INHALATION DAILY RF: 0 Renal Vitamin 0.8 mg Tablet 1 tab PO DAILY RF: 0 Probiotic 3 billion cell Capsule 3,000 mmu cells PO DAILY RF: 0 midodrine 5 mg tablet 5 mg PO UD RF: 0 Discontinued warfarin 5 mg tablet 5 mg PO UD RF: 0 Stand-Alone Forms: Call Back Authorization, My [facility] Discharge Orders: Discharge Order (Routine); Ordered 02/11/19 Ordered By: Julius Haynes Admission Data Admit Date/Time: 02/04/19 20:45 Attending Provider: Julius Haynes Admit Provider: Darwin Mcconnell Primary Care Provider: Narendra Gonzalez Other Providers: Darwin Mcconnell ; Hansa Ya ; Glen Piper ; Jeremiah Houston I ; Lamar Maldonado ; Sarah Amaro ; Litzy Jauregui ; Antonio Schroeder ; Timo Kim ; Janet Elizalde ; Preet Cota ; Karen Dubois ; Darwin Dawson ; Kecia Benedict ; Dorian Brown ; Cooper Spencer ; Sotero Powell ; Danny Suárez ; Bladimir Cruz ; Wei García ; [place] Service: Telemetry Medical
[2019-02-11 10:38] VITALS: PULSE 93
[2019-02-11 13:35] VITALS: O2SAT 94
== END 2019-02-11 16:10 | disposition home health service (06) | DRG 177 ==
LOC: ED 17:45 → 2W 20:45 → SUATTDRO 20:45 → 2W 21:37
DX: Z88.8 Allergy status to other drugs, medicaments and biological substances; J44.0 Chronic obstructive pulmonary disease with (acute) lower respiratory infection; I50.812 Chronic right heart failure; Z87.891 Personal history of nicotine dependence; Z79.52 Long term (current) use of systemic steroids; J96.21 Acute and chronic respiratory failure with hypoxia; E11.42 Type 2 diabetes mellitus with diabetic polyneuropathy; E87.5 Hyperkalemia; I27.20 Pulmonary hypertension, unspecified; I48.2 Chronic atrial fibrillation; Z68.36 Body mass index [BMI] 36.0-36.9, adult; Z79.01 Long term (current) use of anticoagulants; E11.43 Type 2 diabetes mellitus with diabetic autonomic (poly)neuropathy; Z99.81 Dependence on supplemental oxygen; E03.9 Hypothyroidism, unspecified; Z88.2 Allergy status to sulfonamides; Z88.1 Allergy status to other antibiotic agents; F32.9 Major depressive disorder, single episode, unspecified; R79.1 Abnormal coagulation profile; N18.6 End stage renal disease; E66.2 Morbid (severe) obesity with alveolar hypoventilation; J69.0 Pneumonitis due to inhalation of food and vomit; E11.22 Type 2 diabetes mellitus with diabetic chronic kidney disease; I95.89 Other hypotension; Z79.4 Long term (current) use of insulin; Z83.3 Family history of diabetes mellitus; I50.32 Chronic diastolic (congestive) heart failure; E11.65 Type 2 diabetes mellitus with hyperglycemia; J44.1 Chronic obstructive pulmonary disease with (acute) exacerbation

== ENCOUNTER 2019-02-17 01:26 | Inpatient (IN) ==
[2019-02-17 02:04] LABS: Basophils # (auto) 0.04 K/uL (0-0.2); Basophils % (auto) 0.2 %; Eosinophils # (auto) 0.04 K/uL (0-0.5); Eosinophils % (auto) 0.2 %; Hematocrit (blood only) 36.9 % (37-47); Hemoglobin 11.3 g/dL (12.0-16.0); Immature Granulocytes # (auto) 0.92 K/uL (0.00-0.02); Immature Granulocytes % (auto) 4.1 %; Lymphocytes # (auto) 0.83 K/uL (1.2-3.4); Lymphocytes % (auto) 3.7 %; Mean Corpuscular Hgb Conc 30.6 g/dL (32-36); Mean Corpuscular Volume 94.4 fL (80-100); Monocytes # (auto) 1.75 K/uL (0.11-0.59); Monocytes % (auto) 7.8 %; Neutrophils # (auto) 18.73 K/uL (1.4-6.5); Nucleated RBC # (auto) 0.08 K/uL (0-0); Nucleated RBC % (auto) 0.4 %; Platelet Count 327 K/uL (130-400); RDW Coefficient of Variation 21.1 % (11.5-14.5); RDW Standard Deviation 71.9 fL (36.4-46.3); Red Blood Count 3.91 M/uL (4.2-5.4); White Blood Count 22.31 K/uL (4.8-10.8)
[2019-02-17 02:15] LABS: INR 2.3 (0.9-1.1); Partial Thromboplastin Ratio 1.4; Partial Thromboplastin Time 36.8 Seconds (21.0-31.0); Prothrombin Time 22.5 Seconds (9.0-12.0)
[2019-02-17] MEDS ORDERED: ONDANSETRON INJ 2 MG/ML 2 ML VIAL IV STA (02:16)
[2019-02-17 02:29] LABS: Anisocytosis Present
[2019-02-17 02:35] LABS: Albumin Globulin Ratio 0.5 (0.9-2); Albumin Level 2.4 gm/dl (3.4-5.0); BUN Creatinine Ratio 8.4 (10-20); Bilirubin,Total 0.4 mg/dl (0.2-1); Calcium 8.2 mg/dl (8.5-10.1); Creatinine Clr Calc Pharmacy 12.1 ml/min; Est GFR (African American) 9.2; Globulin 4.5 gm/dl (2.5-4.0); Total Protein 6.9 gm/dl (6.4-8.2); Troponin I 0.105 ng/ml (0-0.045)
[2019-02-17 03:37] LABS: INR 2.4 (0.9-1.1); Prothrombin Time 22.7 Seconds (9.0-12.0); iSTAT Venous Carbon Dioxide 21 mEq/l (24-31)
[2019-02-17] MEDS ORDERED: VANCOMYCIN CONSULT ACTIVE PRN (05:05)
[2019-02-17] MEDS ORDERED: LORazepam 0.5 MG TAB PO PRN (05:05)
[2019-02-17] MEDS ORDERED: ALBUTEROL HFA 8 GM INHALER INH PRN (05:05)
[2019-02-17] MEDS ORDERED: PIPERACILL/TAZOBAC CONSULT ACTIVE PRN (05:05)
[2019-02-17] MEDS ORDERED: ICU PROTOCOL FOR HYPERGLYCEMIA PRN ×2 (05:05→17:14)
[2019-02-17] MEDS ORDERED: VANCOMYCIN HCL 2,000 MG in SODIUM CHLORIDE 0.9% 500 ML IV ONE (05:30)
[2019-02-17] MEDS ORDERED: PIPERACILLIN/TAZOBACTAM 4.5 GM in DEXTROSE 5% 100 ML IV ONE (05:30)
[2019-02-17] MEDS ORDERED: methylPREDNISolone 40 MG in SYRINGE 0 ML IV SCH (06:00)
[2019-02-17] MEDS ORDERED: INSULIN ASPART 100 UNITS/ML 3 ML PEN SC SCH (06:00)
[2019-02-17] MEDS ORDERED: NORMOSOL-R 500 ML IV ONE (06:16)
--- NOTE | 2019-02-17 06:30 | XRay Report ---
XR chest 1V portable HISTORY: 63 years-old Female Dyspnea acute shortness of breath with hypotension COMPARISON: Chest radiograph 02/04/2019 TECHNIQUE: Portable AP view of the chest FINDINGS: Unchanged positioning of the dual-lumen hemodialysis catheter. Cardiac silhouette is enlarged, unchan ged. The patient is mildly rotated. Chronic right lung base opacities with chronic blunting of the ri ght costophrenic angle. No large pleural effusion, pneumothorax or overt pulmonary edema. Degenerativ e changes of the shoulders and spine. IMPRESSION: 1. Cardiomegaly without overt pulmonary edema. 2. Chronic right lung base opacities. The above report was generated using voice recognition software. It may contain grammatical, syntax o r spelling errors. Electronically signed by: Mack Rubin M.D. 02/17/2019 6:29 AM
--- NOTE | 2019-02-17 06:32 | Ultrasound Report ---
US effusion-chest/mediastinum HISTORY: 63 years-old Female b/l pleural effusion? Acute shortness of breath with possible pleural e ffusions COMPARISON: Chest radiograph of same day TECHNIQUE: Multiple real-time sonographic images of the bilateral hemithoraces were obtained assessin g grayscale appearance. FINDINGS: No pleural effusion identified within the right or left hemithoraces. Study is mildly limited seconda ry to patient inability to sit up on their own. Right lung base consolidation. IMPRESSION: No pleural effusion identified. The above report was generated using voice recognition software. It may contain grammatical, syntax o r spelling errors. Electronically signed by: Mack Rubin M.D. 02/17/2019 6:31 AM
[2019-02-17] MEDS ORDERED: INSULIN PROTOCOL GOAL RANGE ONE (06:46)
[2019-02-17] MEDS ORDERED: SEVERE STRESS LEVEL ONE (06:46)
[2019-02-17] MEDS ORDERED: INSULIN REGULAR 250 UNITS in SODIUM CHLORIDE 0.9% 247.5 ML IV SCH (07:00)
[2019-02-17] MEDS ORDERED: NovoLIN-R BOLUS FROM BAG IV ONE (07:00)
--- NOTE | 2019-02-17 07:05 | Critical Care Consultation ---
Date of Consultation February 17, 2019 Assessment & Plan (1) Hypoxia: Reason Critically Ill: 63 yo female with ESRD, a fib, right sided heart failure, hypotension, and chronic respiratory failure on 4-5 L home Oxygen by nasal cannula and bipap at night presenting in acute on chronic hypoxemic res piratory failure. PLAN: Neuro: patient appears oriented on brief questioning this morning, awake and alert and conversive through bipap. Patient at high risk for delirium, will continue to monitor Resp: Acute on chronic hypoxemic respiratory failure. -4 to 6 L home use Currently on Bipap, awake and alert feeling better than she did Saturating around 100% on FiO2 of 40 Concern for witnessed aspiration event, currently on zosyn and vancomycin ABG this morning showing metabolic acidosis with a contributing respiratory acidosis PH 7.208 PCO2 49.7, PO2 125, BE of -8, and Bicarb of 19.8 CXR showing Right lower lobe infiltrate cardiomegaly, chest U/S showing no current pleural effusion Will continue on BiPAP for now, weaning as tolerated Dialysis to remove some of the fluid congestion will likely be beneficial CV: Hypotension: Chronic -Patient with chronic hypotension currently 80/51 which is near her baseline blood pressure Patient is still mentating without difficulty and tells me she is asymptomatic - On home midodrine 5 mg yet to receive dose for today, will continue to monitor Given 500 ml Normosol bolus but do not want to aggressively resuscitate at this time and fluid overload and make her respiratory status worse. History atrial fibrillation -Rate controlled Elevated troponin: Likely secondary to renal failure and maybe some demand ischemia EKG showing no acute ST changes that I can appreciate Fluids/Renal: Nephrology consulted, will need to be dialyzed due to metabolic acidosis Creatinine currently 5.4 BUN 44 Bicarb 19 increased anion gap GI/Nutrition: NPO currently On previous admission was found to have dysphagia by speech, recommended mechanical soft slippery diet Dialysis and diabetic soft slippery diet when tolerated History of silent aspiration, will get speech evaluation to determine swallowing ability when stable. Heme: Hemoglobin 11.3 and stable, elevated white count, possible aspiration from vomiting vs pneumonia will con tinue to monitor Long-term anticoagulation secondary to atrial fibrillation -Therapeutic continue home dosing ID: Aspiration pneumonia versus pneumonitis vs pneumonia, will follow blood cultures , repeat x rays and monitor clinical status. -Discontinue vancomycin, de-escalate to Rocephin Endocrine: Hyperglycemia -Will discontinue steroids -I am not convinced this is a severe community-acquired pneumonia requiring steroid coverage Will continue to manage patient on insulin with sliding scale for blood sugar control Vascular access: Dialysis perm-a-cath in place with peripheral IV Code Status: Full Dr. Arambula was resident physician during care of patient. I separately evaluated patient for mckeon portions of the history and the exam. I was present during the critical portion of medical decision making, and I discussed the case with the resident. I generally agree with the findings and plan. Patient was discussed in multidisciplinary rounds. After scheduled dialysis patient would be appropriate for downgrade out of ICU. (2) Atrial fibrillation with RVR: (3) Hypoxia: (4) Hyperkalemia: (5) Abdominal pain: (6) Aspiration pneumonia: (7) Hypotension: (8) Elevated troponin: (9) Abdominal pain, lower: (10) Supratherapeutic INR: (11) Steroid-induced hyperglycemia: (12) Complication of vascular access for dialysis: (13) Congestive heart failure: (14) Renal failure: (15) Hemodialysis catheter malfunction: (16) Decubitus ulcer, buttock: (17) Shortness of breath: (18) Elevated troponin: (19) DVT prophylaxis: History of Present Illness Reason for Consultation: Acute on Chronic Hypoxemic Respiratory Failure Requesting Physician: Aleisha Walton Attending Physician: Miguel Ángel Gentile MD History of Present Illness Ella Blevins is a 63 year old woman with past medical history of chronic respiratory failure on 4 L home O2 with bipap overnight, right sided heart failure, COPD, atrial fibrillation, Chronic renal failure on dialysis with perm a cath in place, who initially presented with shortness of breath. She is limited in her ability to communicate with me as she is on BiPAP and very tired. She was sent here from [facility] due to respiratory distress and hypoxemic respiratory failure with O2 saturation on 77. She was scheduled for dialysis today Two hospitalizations in last month and has been profoundly weak. She has endorsed shortness of breath, nausea and vomiting/dry heaving but does not endorse any of those currently. Though she still feels weak and tired. No questions for me at this time. Allergies Allergy/AdvReac Type Severity Reaction Status Date / Time bacitracin Allergy Intermediate RASH,ITCH Verified 02/17/19 01:55 celecoxib Allergy Intermediate RASH TO Verified 02/17/19 01:55 SULFA DRUGS neomycin Allergy Intermediate RASH,ITCH Verified 02/17/19 01:55 polymyxin B Allergy Intermediate RASH,ITCH Verified 02/17/19 01:55 Sulfa (Sulfonamide Allergy Intermediate RASH,HAS Verified 02/17/19 01:55 Antibiotics) TAKEN GLIPIZIDE W/O REACTION tigecycline AdvReac Severe MILD Verified 02/17/19 01:55 PANCREATITIS codeine AdvReac Intermediate GI UPSET Verified 02/17/19 01:55 Home Medications Home Medications Medication Instructions Recorded Confirmed Type albuterol sulfate 2.5 mg/3 mL 1.25 mg INH Q4H PRN 06/01/18 02/17/19 History (0.083 %) solution for nebulization albuterol sulfate HFA 90 2 puffs INH Q6H PRN 06/01/18 02/17/19 History mcg/actuation aerosol inhaler ascorbic acid (vitamin C) 500 mg 500 mg PO DAILY cap 06/01/18 02/17/19 History capsule atorvastatin 40 mg tablet 40 mg PO HS 06/01/18 02/17/19 History cholecalciferol (vitamin D3) 1,000 1,000 units PO DAILY 06/01/18 02/17/19 History unit capsule hydrocodone 5 mg-acetaminophen 325 1 tab PO Q6H PRN 06/01/18 02/17/19 History mg tablet insulin glargine (U-100) 100 30 units SQ HS 06/01/18 02/17/19 History unit/mL (3 mL) subcutaneous pen levothyroxine 125 mcg tablet 125 mcg PO QAM 06/01/18 02/17/19 History magnesium oxide 400 mg (241.3 mg 400 mg PO DAILY tab 06/01/18 02/17/19 History magnesium) tablet metoprolol succinate ER 25 mg 12.5 mg PO DAILY 06/01/18 02/17/19 History capsule sprinkle, ext. release 24 hr pantoprazole 20 mg tablet,delayed 20 mg PO QAM 06/01/18 02/17/19 History release sertraline 100 mg tablet 150 mg PO PM tab 06/01/18 02/17/19 History Anoro Ellipta 1 inh INHALATION DAILY 06/22/18 02/17/19 History docusate sodium [Colace] 100 mg PO BID 06/22/18 02/17/19 History nystatin 1 applic TOPICAL BID 06/22/18 02/17/19 History prednisone 5 mg PO DAILY 06/22/18 02/17/19 History lorazepam 0.5 mg PO UD PRN 07/15/18 02/17/19 History Probiotic 3,000 mmu cells PO DAILY 01/11/19 02/17/19 History Renal Vitamin 1 tab PO DAILY 01/11/19 02/17/19 History midodrine 5 mg PO SUTUTH@,21 01/11/19 02/17/19 History Novolog Flexpen U-100 Insulin 15 unit SUBCUT UD 02/04/19 02/17/19 History calcium acetate 2,668 mg PO TIDM 02/04/19 02/17/19 History cyanocobalamin (vitamin B-12) 1,000 mcg PO DAILY 02/04/19 02/17/19 History gabapentin 300 mg PO UD 02/04/19 02/17/19 History amoxicillin-pot clavulanate 1 tab PO BID #10 tab 02/11/19 02/17/19 Rx [Augmentin] budesonide-formoterol [Symbicort] 2 puff INHALATION BID #1 g 02/11/19 02/17/19 Rx prednisone 40 mg PO DAILY #10 tab 02/11/19 02/17/19 Rx warfarin [Coumadin] 2 mg PO DAILY@1600 #90 tab 02/11/19 02/17/19 Rx midodrine 5 mg PO MOWEFRSA@2100 02/17/19 02/17/19 History midodrine 10 mg PO MOWEFRSA@0900 02/17/19 02/17/19 History Patient History Medical History Chronic knee pain (Chronic) COPD exacerbation (Resolved) Sleep apnea (Chronic) Chronic anemia (Chronic) Pneumonia (Acute) Generalized weakness (Resolved) Iron (Fe) deficiency anemia (Chronic) Morbid obesity (Chronic) Obesity hypoventilation syndrome (Chronic) Pressure ulcer Atrial fibrillation (Chronic) Pulmonary HTN (Chronic) COPD (chronic obstructive pulmonary disease) (Chronic) DM type 2 (diabetes mellitus, type 2) (Chronic) HTN (hypertension) (Chronic) RHF (right heart failure) (Chronic) Chronic respiratory failure with hypoxia (Chronic) ESRD (end stage renal disease) on dialysis (Chronic) Hypothyroidism (Chronic) Depression (Chronic) HLD (hyperlipidemia) (Chronic) Neuropathy (Chronic) Diabetic gastroparesis (Chronic) H/O deep venous thrombosis (Resolved) ESRD (end stage renal disease) on dialysis (Inactive) Surgical History History of tracheostomy History of hernia repair (Resolved) Status post laparoscopic cholecystectomy (Resolved) S/P debridement (Chronic) "08/30/2016- debridement bilateral lower extremity and buttock wounds" Hx of cholecystectomy (Resolved) Family History Other CKD (chronic kidney disease) Coronary heart disease Social History Preferred Language: Armenian Communication Ability: Effective Food Safety Field Specialist Required: No Beliefs That Will Affect Care: None marital status: Current Living Situation: Family Other Information That Helps Us Care for You: No Feels Safe at Home: Yes Safety Concerns: Feels Safe At This Time Smoking Status: Unknown if ever smoked Hx Alcohol Use: No Hx Substance Use: No Review of Systems Review of Systems: All systems reviewed & are unremarkable except as noted in HPI & below Difficult to attain much of a ROS at this time, will continue to discuss with her as her respiratory distress improves Physical Exam Constitutional: + obese and cooperative Bipap in place patient tired, but easily rousable and conversive. Does not appear to be confused Eyes: PERRL, conjunctivae normal, anicteric sclerae Respiratory: Inspiratory rales bilaterally, able to speak in partial sentences, Decreased air entry bilateral lung bases. Cardiovascular: Rate/Rhythm: + irregularly irregular Heart Sounds: no click, no gallop, no murmur and no cardiac rub Vessels: radial pulses present Gastrointestinal (Abdomen): Inspection/Auscultation: abdomen normal to inspection and normal bowel sounds Percussion/Palpation: abdomen soft; abdomen nontender Neurologic: PERRL, EOMI, accommodation nl, no face palsy, no dysarthria Results & Data Vital Signs (Past 12 Hours) Vital Signs Temp Pulse Pulse Resp BP BP Pulse Ox 02/17/19 05:01 110 H 89/58 L 95 02/17/19 04:55 102 H 20 99 02/17/19 04:43 36.5 C 98 H 78/48 L 95 02/17/19 04:42 36.5 C 107 H 24 78/48 L 97 02/17/19 04:32 105 H 22 82/58 L 100 02/17/19 03:30 107 H 22 114/41 L 100 02/17/19 03:17 112 H 22 99 02/17/19 02:55 103 H 24 98/48 L 02/17/19 02:33 115 H 23 111/47 L 77 L 02/17/19 02:10 108 H 30 H 92 02/17/19 01:58 82/54 L 90 02/17/19 01:34 36.7 C 102 H 18 Resident Activity Tracking Resident Involvement: Resident Care Provided Care Provided: Adult Hospital Medicine (1) Congestive heart failure Heart failure chronicity: chronic Heart failure type: unspecified Qualified Code(s): I50.9 - Heart failure, unspecified (2) Aspiration pneumonia Aspiration pneumonia type: unspecified Laterality: unspecified laterality Lung location: unspecified part of lung Qualified Code(s): J69.0 - Pneumonitis due to inhalation of food and vomit (3) Renal failure Chronic kidney disease stage: on chronic dialysis Renal failure chronicity: chronic Qualified Code(s): N18.6 - End stage renal disease; Z99.2 - Dependence on renal dialysis (4) Hypotension Hypotension type: unspecified hypotension type Qualified Code(s): I95.9 - Hypotension, unspecified (5) Complication of vascular access for dialysis Encounter type: initial encounter Qualified Code(s): T82.9XXA - Unspecified complication of cardiac and vascular prosthetic device, implant and graft, initial encounter
[2019-02-17] MEDS: IPRATROPIUM BROMIDE NEB SOLN 0.02% 2.5 ML VIAL INH SCH ×3 (07:21→19:09)
[2019-02-17] MEDS: LEVALBUTEROL 1.25MG/0.5ML NEB INH SCH ×3 (07:21→19:09)
--- NOTE | 2019-02-17 07:47 | History and Physical Report ---
DATE OF ADMISSION: 02/17/2019 CHIEF COMPLAINT: Hypertension, hypoxia. HISTORY OF PRESENT ILLNESS: This is a 63-year-old female with past medical history significant for chronic respiratory failure, on 4-5 liters oxygen all the time and obesity hypoventilation syndrome, uses BiPAP at bedtime, per pulmonary, on last admission advised to use BiPAP 4 hours after eating any food because of aspiration risk, pulmonary hypertension, chronic right-sided heart failure, atrial fibrillation on Coumadin, end-stage renal disease on hemodialysis 4 times a week, type 2 diabetes, hypotension on midodrine, hyperlipidemia, hypothyroidism, recently was in the hospital for pneumonia, treated with antibiotics and again got admitted on January 13 because of misplaced dialysis catheter during that hospitalization, hospitalization was complicated by again pneumonia thought to be from silent aspiration, status post video swallow during her admission and advised for mechanical soft slippery diet with delayed swallowing reflux, and recommended outpatient speech therapy and again had COPD exacerbation because of the pneumonia and treated with steroids and antibiotics and a new Perm-A-Cath was placed and got discharged, again got admitted on February 04 with aspiration pneumonia and hypoxia and was discharged on February 11 on Augmentin. The patient says is weak and is not able to ambulate. She is mostly wheelchair bound currently, lives with her and because of weakness, she was sent to [facility] today. At the [facility], she was found to be hypotensive and hypoxic and she has become short of breath and was sent back here. When she came here, her oxygen was 77% was placed on BiPAP, and improved to higher 90%, her blood pressures are low in the 80s and 90s, later improved to 114/41, slightly tachycardic. The patient tolerating BiPAP okay and the patient says she is feeling better now.She wants to be full code. ABG showed venous pH of 7.15, but CO2 and bicarbonate are unremarkable. Chest x-ray shows again right lower lobe infiltrate, possible pleural effusion and also lower extremity was noted to be warm or erythematous, possible cellulitis. The patient denies any chest pain. She says she has some cough Denies any headache, was having dry heaves, but no vomiting. Moved her bowels yesterday in the morning. They were normal. Doesn't make any urine. ALLERGIES: CELEBREX, CODEINE, NEOSPORIN, SULFA ANTIBIOTICS. PAST MEDICAL HISTORY: As mentioned above. PAST SURGICAL HISTORY: Perm-A-Cath exchange, cholecystectomy. MEDICATIONS: On last admission, was discharged on prednisone taper, Coumadin 2 mg daily, Symbicort 160/4.5 two puffs inhalation b.i.d., Augmentin 875 mg 1 tablet p.o. b.i.d., hydrocodone/acetaminophen 1 tablet p.o. q. 6 hours p.r.n., Zoloft 150 mg p.o. q.p.m., atorvastatin 40 mg p.o. at bedtime, insulin Lantus SoloSTAR 30 units at bedtime, metoprolol succinate 12.5 mg p.o. daily, levothyroxine 125 mcg p.o. daily, albuterol 2 puffs inhalation q. 6 hours p.r.n., magnesium oxide 400 mg p.o. daily, Protonix 40 mg p.o. q.a.m., albuterol nebulization q. 4 hours p.r.n., ascorbic acid 500 mg p.o. daily, vitamin D 1000 units p.o. daily, lorazepam 0.5 mg p.r.n., vitamin B12 1000 mcg p.o. daily, gabapentin 300 mg 1 capsule daily plus one capsule each after dialysis, probiotic p.o. daily, levothyroxine 125 mcg p.o. daily, midodrine 5 mg in a.m. and 5 mg in p.m. on nondialysis days, 10 mg in a.m. and 5 mg p.m. on dialysis days, but the patient takes 10 mg in a.m. on dialysis days, 5 mg in a.m. on nondialysis days. Nystatin topically b.i.d., Protonix 20 mg p.o. daily and prednisone 5 mg daily, Anoro Ellipta inhalation daily, Colace 100 mg p.o. b.i.d., calcium acetate 2668 mg p.o. t.i.d. with meals, mineral and vitamins 1 tablet daily, atorvastatin 40 mg p.o. at bedtime, NovoLog FlexPen sliding scale. FAMILY HISTORY: Significant for father had brain cancer. Mother has diabetes and heart disorder. SOCIAL HISTORY: and lives with her . Currently, was placed in the [facility] because she was weak. Former smoker, quit in 2009. Smoked an average of 2 packs a day for 40 years. No alcohol use, no drug use. REVIEW OF SYMPTOMS: As per HPI. Rest of review of systems is negative. PHYSICAL EXAMINATION: GENERAL: The patient is alert and awake, not in acute distress. VITAL SIGNS: Temperature 36.7, pulse 107, respiratory rate 22, blood pressure 140/41, oxygen was 97% on room air, currently on 100% BiPAP. HEENT: No pallor, no icterus. Pupils equal, round, reactive to light. NECK: No neck masses. Supple. CARDIOVASCULAR: S1, S2 heard. Tachycardia. No murmurs. RESPIRATORY SYSTEM: Normal AP diameter. No accessory muscle use. Bilateral rhonchi heard. ABDOMEN: Soft, bowel sounds present. Nontender. No distention. CENTRAL NERVOUS SYSTEM: Alert and awake and oriented, moves extremities. Nonfocal. EXTREMITIES: Chronic lower extremity edema present and erythematic changes and mildly warm to palpation. LABORATORY DATA: WBC 22.3, hemoglobin 11.3, hematocrit 36.9, platelets 327. PT 22.7, INR 2.4. Venous blood gas, pH of 7.16, pCO2 of 55, pO2 of 36, bicarbonate 20. Sodium 130, potassium 5, chloride 97, bicarb 19, BUN 44, creatinine of 5.28, glucose 255, calcium 8.2, total bilirubin 0.4, AST 92, ALT 71, alkaline phosphatase 287. Troponin I 0.105. Chest x-ray shows hazy appearance in bibasilar lobes. ASSESSMENT AND PLAN: EKG, Afib with rapid ventricular response with a rate of 117, ST-T wave abnormality seen. ASSESSMENT AND PLAN: This is a 63-year-old female with multiple medical problems with history of chronic hypoxic respiratory failure on 4-5 liters of nasal cannula, obesity hypoventilation syndrome, BiPAP at bedtime, pulmonary hypertension, chronic right-sided heart failure, atrial fibrillation, on Coumadin, end-stage renal disease on hemodialysis, diabetes, chronic hypotension, hyperlipidemia, hypothyroidism, recently had aspiration pneumonitis, started on prednisone taper and antibiotics was discharged home, as the patient is weak and wheelchair bound, went to [facility] for rehabilitation, was found to have hypoxia and hypotension. 1. Short of breath, acute on chronic hypoxic respiratory failure, also possible chronic obstructive pulmonary disease exacerbation. The patient is requiring BiPAP currently. Venous blood gas was pH of 7.15, though no significant co 2 retention. and bicarb is 19. She has rhonchi on exam. . We will place her on nebs around the clock and p.r.n. IV Solu-Medrol 40 t.i.d. Continue BiPAP. We will get another ABG, while the patient is on BiPAP and closely monitor in the ICU. The patient wants to be full code. 2. Possible aspiration pneumonitis. The patient has silent aspiration. Status post video swallow on the recent admissions and was recommended to be mechanical soft slippery diet. Currently, the patient is n.p.o. Whenever she eats, we will change to mechanical soft slippery diet. Says she is non compliant with dietary recommendations. We will place on antibiotics, IV Zosyn and IV vancomycin. Follow the cultures. 4. Possible pleural effusions. We will also get a chest ultrasound. 5. Lower extremity cellulitis? On antibiotics as above. Will monitor the response. 5. Hypotension. On midodrine. Currently, blood pressure is slightly better. We will closely monitor in the ICU. 6. End-stage renal disease, on hemodialysis. Consult nephro for dialysis, schedule for dialysis tomorrow. 7. Diabetes. Currently, n.p.o. We will place on Lantus 15 units at bedtime and insulin sliding scale, closely watch the blood sugar as patient is getting steroids. 8. Hyperlipidemia, on statin, 9. Depression, continue her home antidepressants. 10. Hypothyroidism, on levothyroxine. 11. Atrial fibrillation, on Toprol-XL, which we will continue. The patient has Coumadin and INR is therapeutic. 12. Gastroesophageal reflux disease, on PPI. 13. Deep venous thrombosis prophylaxis. INR is therapeutic. 14. Disposition: Admit to ICU and closely monitor. Level 1 full code as per discussion with the patient. PT and OT prior to discharge. Social service to help with discharge planning. JUAN ANTONIO
[2019-02-17] MEDS ORDERED: MIDODRINE HCL 10 MG TAB PO SCH ×2 (08:00→10:22)
[2019-02-17] MEDS ORDERED: XOPENEX/ATROVENT 1.25mg/0.5MG NEB COMBO NEB SCH (08:00)
[2019-02-17] MEDS ORDERED: MIDODRINE HCL 10 MG TAB PO ONE (08:30)
[2019-02-17] MEDS: LEVOTHYROXINE SODIUM 125 MCG TABLET PO SCH (08:35)
[2019-02-17] MEDS ORDERED: NON-FORMULARY MEDICATION (Lactobacillus Combination No.4 [Probiotic] 3,000 mmu cells) PO SCH (09:00)
[2019-02-17] MEDS ORDERED: SODIUM CHLORIDE 0.9% 1000ML 1,000 ML IV PRN (09:13)
[2019-02-17] MEDS: NEPHROCAPS PO SCH (09:32)
[2019-02-17] MEDS: CHOLECALCIFEROL 1,000 UNITS TAB PO SCH (09:32)
[2019-02-17] MEDS: CALCIUM ACETATE 667 MG CAP PO SCH ×3 (09:32→17:11)
[2019-02-17] MEDS: CYANOCOBALAMIN 500 MCG TABLET (VITAMIN B-12) PO SCH (09:32)
[2019-02-17] MEDS: DOCUSATE SODIUM 100 MG CAP PO SCH ×2 (09:32→19:57)
[2019-02-17] MEDS: PANTOprazole 40 MG TAB PO SCH (09:32)
[2019-02-17] MEDS: ASCORBIC ACID 500 MG TAB PO SCH (09:32)
[2019-02-17] MEDS: METOPROLOL SUCC 25MG EXT REL TAB PO SCH (09:33)
[2019-02-17] MEDS: NYSTATIN POWDER 15GM BTL EXT SCH ×2 (09:33→20:00)
[2019-02-17] MEDS: BUDESONIDE/FORMOTEROL FUMARATE 160/4.5 60 PUFFS/INHALER INH SCH ×2 (09:33→19:57)
[2019-02-17] MEDS: MAGNESIUM OXIDE 400 MG TAB PO SCH (09:34)
[2019-02-17] MEDS: INSULIN ASPART 100 UNITS/ML 3 ML PEN SC SCH ×3 (09:35→20:04)
[2019-02-17] MEDS: GABAPENTIN 300 MG CAP PO SCH ×2 (09:35→13:03)
[2019-02-17] MEDS ORDERED: NOREPINEPHRINE BIT INJ 8 MG in DEXTROSE 5% 500 ML IV SCH (11:10)
[2019-02-17] MEDS ORDERED: ALTEPLASE, RECOMBINANT 1 MG/ML 2ML VIAL IV ONE (12:25)
[2019-02-17 12:31] LABS: iSTAT Venous Carbon Dioxide 21 mEq/l (24-31)
[2019-02-17 12:31] LABS: iSTAT Allen Test Pass; iSTAT Arterial Blood Gas HCO3 20 meg/L (19-24); iSTAT Arterial Blood Gas pCO2 50 mmHg (35-46); iSTAT Arterial Blood Gas pH 7.21 (7.35-7.45); iSTAT Carbon Dioxide 21 mEq/l (24-31); iSTAT FiO2 50 %; iSTAT Site R Radial
--- NOTE | 2019-02-17 12:43 | Nephrology Consultation ---
Date of Consultation February 17, 2019 Assessment & Plan (1) ESRD (end stage renal disease) on dialysis: Patient with ESRD on dialysis Friday. Her last dialysis was on Friday. She has chronic volume overload and recurrent problems with hypotension which limits her ability for ultrafiltration. She is more hypoxic. We started dialysis this morning but having poor blood flow with the catheter allowing only 200 mL/min. Will dwell Cathflo for 30 minutes and reinitiate dialysis. If we are still getting poor blood flow, she will need a new dialysis catheter. We will plan to dialyze her for 4 hours and target UF of 3 L. (2) Acute and chronic respiratory failure with hypoxia: Likely multifactorial including volume overload and pneumonia. She is receiving IV antibiotics per primary team. Will attempt to liter UF today. (3) Hypotension: Due to dialysis and CHF. She is getting Midodrin. She she is currently Levophed during dialysis. Titrate Levophed for mean arterial pressure of at least 65. History of Present Illness Reason for Consultation: ESRD complicated by acute respiratory failure Requesting Physician: Jaquan Sims MD Attending Physician: Tricia King DO History of Present Illness This is 63-year-old female with ESRD on dialysis Friday who was admitted on 02/17/2019 with acute respiratory failure requiring BiPAP. Her last dialysis was on Friday. She was due for dialysis today but brought to the emergency room with worsening shortness of breath. Chest x-ray showing pneumonia. She is been started on antibiotics. PMH is complex and includes copd, morbid obesity, obesity hypoventilation syndrome, severe/ chronic respiratory failure on 02nc 4L 24/7 and up to 5L, chronic hypotension on midodrine, a fib, DM, hypothyroid, depression. She is tdc dependent for dialysis access. She has been admitted multiple times recently for hypotension and pna. She has also had problems with the access and recently had a catheter fall out at home. She has chronic hypotension and chronic volume overload needing 4 days weekly dialysis for past several months in order to maintain fluid status. I initially saw the patient during rounds in the morning. She complained of shortness of breath. No vomiting or diarrhea. I later returned and saw the patient while on dialysis. She was seen and examined while on dialysis. She is having poor blood flows with the catheter. She also had intradialytic hypotension requiring Levophed. Allergies Allergy/AdvReac Type Severity Reaction Status Date / Time bacitracin Allergy Intermediate RASH,ITCH Verified 02/17/19 01:55 celecoxib Allergy Intermediate RASH TO Verified 02/17/19 01:55 SULFA DRUGS neomycin Allergy Intermediate RASH,ITCH Verified 02/17/19 01:55 polymyxin B Allergy Intermediate RASH,ITCH Verified 02/17/19 01:55 Sulfa (Sulfonamide Allergy Intermediate RASH,HAS Verified 02/17/19 01:55 Antibiotics) TAKEN GLIPIZIDE W/O REACTION tigecycline AdvReac Severe MILD Verified 02/17/19 01:55 PANCREATITIS codeine AdvReac Intermediate GI UPSET Verified 02/17/19 01:55 Home Medications Home Medications Medication Instructions Recorded Confirmed Type albuterol sulfate 2.5 mg/3 mL 1.25 mg INH Q4H PRN 06/01/18 02/17/19 History (0.083 %) solution for nebulization albuterol sulfate HFA 90 2 puffs INH Q6H PRN 06/01/18 02/17/19 History mcg/actuation aerosol inhaler ascorbic acid (vitamin C) 500 mg 500 mg PO DAILY cap 06/01/18 02/17/19 History capsule atorvastatin 40 mg tablet 40 mg PO HS 06/01/18 02/17/19 History cholecalciferol (vitamin D3) 1,000 1,000 units PO DAILY 06/01/18 02/17/19 History unit capsule hydrocodone 5 mg-acetaminophen 325 1 tab PO Q6H PRN 06/01/18 02/17/19 History mg tablet insulin glargine (U-100) 100 30 units SQ HS 06/01/18 02/17/19 History unit/mL (3 mL) subcutaneous pen levothyroxine 125 mcg tablet 125 mcg PO QAM 06/01/18 02/17/19 History magnesium oxide 400 mg (241.3 mg 400 mg PO DAILY tab 06/01/18 02/17/19 History magnesium) tablet metoprolol succinate ER 25 mg 12.5 mg PO DAILY 06/01/18 02/17/19 History capsule sprinkle, ext. release 24 hr pantoprazole 20 mg tablet,delayed 20 mg PO QAM 06/01/18 02/17/19 History release sertraline 100 mg tablet 150 mg PO PM tab 06/01/18 02/17/19 History Anoro Ellipta 1 inh INHALATION DAILY 06/22/18 02/17/19 History docusate sodium [Colace] 100 mg PO BID 06/22/18 02/17/19 History nystatin 1 applic TOPICAL BID 06/22/18 02/17/19 History prednisone 5 mg PO DAILY 06/22/18 02/17/19 History lorazepam 0.5 mg PO UD PRN 07/15/18 02/17/19 History Probiotic 3,000 mmu cells PO DAILY 01/11/19 02/17/19 History Renal Vitamin 1 tab PO DAILY 01/11/19 02/17/19 History midodrine 5 mg PO UD 01/11/19 02/17/19 History Novolog Flexpen U-100 Insulin 15 unit SUBCUT UD 02/04/19 02/17/19 History calcium acetate 2,668 mg PO TIDM 02/04/19 02/17/19 History cyanocobalamin (vitamin B-12) 1,000 mcg PO DAILY 02/04/19 02/17/19 History gabapentin 300 mg PO UD 02/04/19 02/17/19 History amoxicillin-pot clavulanate 1 tab PO BID #10 tab 02/11/19 02/17/19 Rx [Augmentin] budesonide-formoterol [Symbicort] 2 puff INHALATION BID #1 g 02/11/19 02/17/19 Rx prednisone 40 mg PO DAILY #10 tab 02/11/19 02/17/19 Rx warfarin [Coumadin] 2 mg PO DAILY@1600 #90 tab 02/11/19 02/17/19 Rx Patient History Medical History Chronic knee pain (Chronic) COPD exacerbation (Resolved) Sleep apnea (Chronic) Chronic anemia (Chronic) Pneumonia (Acute) Generalized weakness (Resolved) Iron (Fe) deficiency anemia (Chronic) Morbid obesity (Chronic) Obesity hypoventilation syndrome (Chronic) Pressure ulcer Atrial fibrillation (Chronic) Pulmonary HTN (Chronic) COPD (chronic obstructive pulmonary disease) (Chronic) DM type 2 (diabetes mellitus, type 2) (Chronic) HTN (hypertension) (Chronic) RHF (right heart failure) (Chronic) Chronic respiratory failure with hypoxia (Chronic) ESRD (end stage renal disease) on dialysis (Chronic) Hypothyroidism (Chronic) Depression (Chronic) HLD (hyperlipidemia) (Chronic) Neuropathy (Chronic) Diabetic gastroparesis (Chronic) H/O deep venous thrombosis (Resolved) ESRD (end stage renal disease) on dialysis (Inactive) Surgical History History of tracheostomy History of hernia repair (Resolved) Status post laparoscopic cholecystectomy (Resolved) S/P debridement (Chronic) "08/30/2016- debridement bilateral lower extremity and buttock wounds" Hx of cholecystectomy (Resolved) Family History Other CKD (chronic kidney disease) Coronary heart disease Social History Preferred Language: Japanese Communication Ability: Effective 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 Neurologic: Has been bedbound for a while Physical Exam Physical Exam: General exam: Appears comfortable, no acute distress HEENT: Pupils are equal and reactive to light Neck: No JVD, neck is supple trachea is midline Respiratory system: Clear breath sounds bilaterally. Gastrointestinal: Abdomen is soft, non distended, non tender, bowel sounds are present CVS: Regular rate and rhythm. No murmurs, rubs or gallops Musculoskeletal: No joint or muscle tenderness Extremities: Non tender, 1+ edema, peripheral pulses are present Neuro: Oriented, no tremors, no focal neurological deficits Skin: No rashes Access: Left tunneled dialysis catheter Results & Data Vital Signs (Past 12 Hours) Vital Signs Temp Pulse Pulse Resp BP BP Pulse Ox 02/17/19 07:24 104 H 20 100 02/17/19 07:23 104 H 20 100 02/17/19 07:00 90 80/51 L 02/17/19 06:31 103 H 74/53 L 96 02/17/19 06:00 98 H 96/55 L 97 02/17/19 05:30 112 H 88/58 L 97 02/17/19 05:15 102 H 100/63 96 02/17/19 05:01 110 H 89/58 L 95 02/17/19 04:56 99 H 22 94 02/17/19 04:55 102 H 20 99 02/17/19 04:43 36.5 C 98 H 78/48 L 95 02/17/19 04:42 36.5 C 107 H 24 78/48 L 97 02/17/19 04:32 105 H 22 82/58 L 100 02/17/19 03:30 107 H 22 114/41 L 100 02/17/19 03:17 112 H 22 99 02/17/19 02:55 103 H 24 98/48 L 02/17/19 02:33 115 H 23 111/47 L 77 L 02/17/19 02:10 108 H 30 H 92 02/17/19 01:58 82/54 L 90 02/17/19 01:34 36.7 C 102 H 18 Laboratory Results Laboratory Results - last 24 hr 02/17/19 02/17/19 02/17/19 01:50 01:50 01:50 WBC 22.31 H RBC 3.91 L Hgb 11.3 L Hct 36.9 L MCV 94.4 MCH 28.9 MCHC 30.6 L RDW Std Deviation 71.9 H RDW Coeff of Yogi 21.1 H Plt Count 327 MPV 10.0 Immature Gran % (Auto) 4.1 Neut % (Auto) 84.0 Lymph % (Auto) 3.7 Piute % (Auto) 7.8 Eos % (Auto) 0.2 Baso % (Auto) 0.2 Immature Gran # (Auto) 0.92 H Neut # (Auto) 18.73 H Lymph # (Auto) 0.83 L Piute # (Auto) 1.75 H Eos # (Auto) 0.04 Baso # (Auto) 0.04 Absolute Nucleated RBC 0.08 H Nucleated RBC % (auto) 0.4 Anisocytosis Present PT 22.5 H INR 2.3 H APTT 36.8 H PTT Ratio 1.4 Sample Site POC pH POC pCO2 POC pO2 POC HCO3 POC Total CO2 POC Base Excess POC ABG O2 Sat Thiago Test POC VBG pH POC VBG pCO2 POC VBG pO2 POC VBG HCO3 POC VBG Total CO2 POC Venous O2 Sat POC VBG Base Excess O2 Delivery Device POC O2 Rate POC FiO2 IPAP Sodium 130 L Potassium 5.0 Chloride 97 L Carbon Dioxide 19 L Anion Gap 14.0 H BUN 44 H Creatinine 5.28 H* Est Cr Clr Drug Dosing 12.1 Est GFR ( Amer) 9.2 Est GFR (Non-Af Amer) 8.0 BUN/Creatinine Ratio 8.4 L Glucose 255 H POC Glucose Calcium 8.2 L Total Bilirubin 0.4 AST 92 H ALT 71 Alkaline Phosphatase 287 H Troponin I 0.105 H* Total Protein 6.9 Albumin 2.4 L Globulin 4.5 H Albumin/Globulin Ratio 0.5 L Nasal Screen MRSA (PCR) 02/17/19 02/17/19 02/17/19 03:19 03:19 03:19 WBC RBC Hgb Hct MCV MCH MCHC RDW Std Deviation RDW Coeff of Yogi Plt Count MPV Immature Gran % (Auto) Neut % (Auto) Lymph % (Auto) Piute % (Auto) Eos % (Auto) Baso % (Auto) Immature Gran # (Auto) Neut # (Auto) Lymph # (Auto) Piute # (Auto) Eos # (Auto) Baso # (Auto) Absolute Nucleated RBC Nucleated RBC % (auto) Anisocytosis PT 22.7 H INR 2.4 H APTT PTT Ratio Sample Site POC pH POC pCO2 POC pO2 POC HCO3 POC Total CO2 POC Base Excess POC ABG O2 Sat Thiago Test POC VBG pH 7.16 L* 7.16 L* POC VBG pCO2 55 H 55 H POC VBG pO2 36 36 POC VBG HCO3 19 L 19 L POC VBG Total CO2 21 L 21 L POC Venous O2 Sat 53.0 L 53.0 L POC VBG Base Excess -9.0 -9.0 O2 Delivery Device POC O2 Rate POC FiO2 IPAP Sodium Potassium Chloride Carbon Dioxide Anion Gap BUN Creatinine Est Cr Clr Drug Dosing Est GFR ( Amer) Est GFR (Non-Af Amer) BUN/Creatinine Ratio Glucose POC Glucose Calcium Total Bilirubin AST ALT Alkaline Phosphatase Troponin I Total Protein Albumin Globulin Albumin/Globulin Ratio Nasal Screen MRSA (PCR) 02/17/19 02/17/19 02/17/19 06:08 06:08 06:08 WBC RBC Hgb Hct MCV MCH MCHC RDW Std Deviation RDW Coeff of Yogi Plt Count MPV Immature Gran % (Auto) Neut % (Auto) Lymph % (Auto) Piute % (Auto) Eos % (Auto) Baso % (Auto) Immature Gran # (Auto) Neut # (Auto) Lymph # (Auto) Piute # (Auto) Eos # (Auto) Baso # (Auto) Absolute Nucleated RBC Nucleated RBC % (auto) Anisocytosis PT INR APTT PTT Ratio Sample Site R Radial R Radial R Radial POC pH Pending 7.21 L 7.21 L POC pCO2 Pending 50 H 50 H POC pO2 Pending 125 H 125 H POC HCO3 20 20 20 POC Total CO2 21 L 21 L 21 L POC Base Excess -8.0 -8.0 -8.0 POC ABG O2 Sat 98.0 H 98.0 H 98.0 H Thiago Test Pass Pass Pass POC VBG pH POC VBG pCO2 POC VBG pO2 POC VBG HCO3 POC VBG Total CO2 POC Venous O2 Sat POC VBG Base Excess O2 Delivery Device BIPAP BIPAP BIPAP POC O2 Rate 18 18 18 POC FiO2 50 50 50 IPAP 16 16 16 Sodium Potassium Chloride Carbon Dioxide Anion Gap BUN Creatinine Est Cr Clr Drug Dosing Est GFR ( Amer) Est GFR (Non-Af Amer) BUN/Creatinine Ratio Glucose POC Glucose Calcium Total Bilirubin AST ALT Alkaline Phosphatase Troponin I Total Protein Albumin Globulin Albumin/Globulin Ratio Nasal Screen MRSA (PCR) 02/17/19 02/17/19 02/17/19 06:39 08:15 09:44 WBC RBC Hgb Hct MCV MCH MCHC RDW Std Deviation RDW Coeff of Yogi Plt Count MPV Immature Gran % (Auto) Neut % (Auto) Lymph % (Auto) Piute % (Auto) Eos % (Auto) Baso % (Auto) Immature Gran # (Auto) Neut # (Auto) Lymph # (Auto) Piute # (Auto) Eos # (Auto) Baso # (Auto) Absolute Nucleated RBC Nucleated RBC % (auto) Anisocytosis PT INR APTT PTT Ratio Sample Site POC pH POC pCO2 POC pO2 POC HCO3 POC Total CO2 POC Base Excess POC ABG O2 Sat Thiago Test POC VBG pH POC VBG pCO2 POC VBG pO2 POC VBG HCO3 POC VBG Total CO2 POC Venous O2 Sat POC VBG Base Excess O2 Delivery Device POC O2 Rate POC FiO2 IPAP Sodium Potassium Chloride Carbon Dioxide Anion Gap BUN Creatinine Est Cr Clr Drug Dosing Est GFR ( Amer) Est GFR (Non-Af Amer) BUN/Creatinine Ratio Glucose POC Glucose 250 H 239 H 188 H Calcium Total Bilirubin AST ALT Alkaline Phosphatase Troponin I Total Protein Albumin Globulin Albumin/Globulin Ratio Nasal Screen MRSA (PCR) 02/17/19 02/17/19 02/17/19 10:49 12:06 Unknown WBC RBC Hgb Hct MCV MCH MCHC RDW Std Deviation RDW Coeff of Yogi Plt Count MPV Immature Gran % (Auto) Neut % (Auto) Lymph % (Auto) Piute % (Auto) Eos % (Auto) Baso % (Auto) Immature Gran # (Auto) Neut # (Auto) Lymph # (Auto) Piute # (Auto) Eos # (Auto) Baso # (Auto) Absolute Nucleated RBC Nucleated RBC % (auto) Anisocytosis PT INR APTT PTT Ratio Sample Site POC pH POC pCO2 POC pO2 POC HCO3 POC Total CO2 POC Base Excess POC ABG O2 Sat Thiago Test POC VBG pH POC VBG pCO2 POC VBG pO2 POC VBG HCO3 POC VBG Total CO2 POC Venous O2 Sat POC VBG Base Excess O2 Delivery Device POC O2 Rate POC FiO2 IPAP Sodium Potassium Chloride Carbon Dioxide Anion Gap BUN Creatinine Est Cr Clr Drug Dosing Est GFR ( Amer) Est GFR (Non-Af Amer) BUN/Creatinine Ratio Glucose POC Glucose 142 H 96 Calcium Total Bilirubin AST ALT Alkaline Phosphatase Troponin I Total Protein Albumin Globulin Albumin/Globulin Ratio Nasal Screen MRSA (PCR) Negative (1) Hypotension Hypotension type: unspecified hypotension type Qualified Code(s): I95.9 - Hypotension, unspecified
[2019-02-17] MEDS ORDERED: PIPERACILLIN/TAZOBACTAM 4.5 GM in DEXTROSE 5% 100 ML IV SCH (14:00)
[2019-02-17] MEDS ORDERED: MIDODRINE HCL 2.5 MG TAB PO SCH ×2 (14:00→18:00)
[2019-02-17] MEDS: cefTRIAXone SODIUM 2,000 MG in DEXTROSE 5% 50 ML IV SCH (14:22)
--- NOTE | 2019-02-17 15:35 | Hospitalist Progress Note ---
Date of Service February 17, 2019 Assessment & Plan (1) Hypoxia: 2/2 pneumonia. Cont broad-spectrum abx, consider possible aspiration event since time of discharge. Empiric broad coverage with recent hospitalizations and exposures. She is improved overnight on this regimen and BIPAP. Cont current plan pending continued clinical improvement respiratory status closer to baseline. (2) Aspiration pneumonia: plan as above. (3) DM type 2 (diabetes mellitus, type 2): glucose readings at goal, cont current management (4) Depression: stable, cont sertraline (5) ESRD (end stage renal disease) on dialysis: cont inpatient HD per Nephro. Midodrine ordered with extra dosing on HD days. (6) Chronic respiratory failure with hypoxia: in setting of COPD and chronic RHF; reports using 4L: home oxygen 07/04 (7) RHF (right heart failure): (8) Atrial fibrillation: controlled on Toprol. Cont coumadin. Daily INR (9) DVT prophylaxis: warfarin Full Code Dispo-likely hospitalized for another few days. PT/OT ordered. Tricia King DO [facility] Hospitalist Subjective 63-year-old female with multiple comorbidities presents as a readmission for shortness of breath and hypoxic respiratory failure. She was discharged on February 11, 2019 from the hospital after an admission for aspiration pneumonia and COPD exacerbation, and was sent home on Augmentin. She was discharged to [facility] for rehabilitation and subsequently returned after being found hypotensive and hypoxic with an oxygen at 77%. She was placed on BiPAP and improved to the 90% range. She was placed in the ICU for noninvasive ventilation. She was placed on scheduled nebulizer therapy, Solu-Medrol 40 mg every 8 hours, Zosyn and vancomycin. She is improved overnight and is now off BiPAP therapy. She is undergoing hemodialysis and did receive norepinephrine during her dialysis session. She has a known history of baseline hypotension and takes Midodrine chronically. She does report some vomiting that occurred last night and is unsure aspirated any of this. She is uncertain where the vomiting came from and states she did not eat anything strange with her last meal being dinner last night. She currently denies any pain and she is on 4 L nasal cannula chronically at baseline. She reports an improvement in her breathing. Review of Systems Review of Systems: fatigue, states "what kind of life is this that I'm living" but denies palliative consult saying "family would not approve", denies pain, reports improvement in breathing, no appetite. At least ten other systems reviewed and negative except as noted here and in HPI. Physical Exam Physical Exam: CONSTITUTIONAL: obese, fatigued, ill-appearing, vitals as above EYES: normal conjuctivae, no scleral icterus ENT: MMM RESPIRATORY: clear to auscultation bilaterally, no crackles, rales or wheezes, normal respiratory effort CARDIOVASCULAR: regular rate and rhythm, S1 and 2 heard without murmurs, gallops or rubs, no JVD, no peripheral edema GASTROINTESTINAL: normal bowel sounds, soft, nontender, nondistended MUSCULOSKELETAL: generalized weakness, head is normocephalic and atraumatic SKIN: warm and dry NEUROLOGIC: CN 2-12 grossly intact, no gross focal deficits. PSYCHIATRIC: alert cooperative and oriented to person, place and time. Results & Data Vital Signs (Past 12 Hours) Vital Signs Temp Pulse Pulse Pulse Resp BP BP 02/17/19 15:01 85 98/66 L 02/17/19 14:45 87 95/63 L 02/17/19 14:30 93 H 102/75 02/17/19 14:15 95 H 117/73 02/17/19 14:02 79 102/50 L 02/17/19 13:45 84 91 H 18 106/71 02/17/19 13:30 84 105/67 02/17/19 13:15 93 H 108/59 L 02/17/19 13:01 88 18 02/17/19 13:00 89 17 113/62 02/17/19 12:45 94 H 19 103/80 02/17/19 12:31 89 21 110/67 02/17/19 12:30 97 H 27 H 02/17/19 12:15 89 19 87/59 L 02/17/19 12:01 108 H 17 94/54 L 02/17/19 12:00 85 20 100/50 L 02/17/19 11:45 92 H 17 94/54 L 02/17/19 11:37 101 H 21 84/50 L 02/17/19 11:30 99 H 19 69/41 L 02/17/19 11:25 98 H 22 64/41 L 02/17/19 11:16 89 16 02/17/19 11:13 85 66/37 L 06/05/19 11:07 100 H 16 98/73 L 02/17/19 11:00 36.6 C 99 H 96 H 17 68/55 L 02/17/19 10:31 104 H 21 02/17/19 10:30 98 H 20 93/62 L 02/17/19 10:01 100 H 19 02/17/19 10:00 98 H 20 91/65 L 02/17/19 09:49 99 H 21 100/66 02/17/19 09:30 89 17 02/17/19 09:00 105 H 16 02/17/19 08:30 92 H 21 02/17/19 08:02 99 H 90/69 L 02/17/19 08:00 93 H 02/17/19 07:30 101 H 02/17/19 07:24 104 H 20 02/17/19 07:23 104 H 20 02/17/19 07:16 93 H 102/60 02/17/19 07:00 90 80/51 L 02/17/19 06:45 110 H 02/17/19 06:31 103 H 74/53 L 02/17/19 06:00 98 H 96/55 L 02/17/19 05:30 112 H 88/58 L 02/17/19 05:15 102 H 100/63 02/17/19 05:01 110 H 89/58 L 02/17/19 04:56 99 H 22 02/17/19 04:55 102 H 20 02/17/19 04:43 36.5 C 98 H 78/48 L 02/17/19 04:42 36.5 C 107 H 24 78/48 L 02/17/19 04:32 105 H 22 82/58 L Pulse Ox 02/17/19 15:01 02/17/19 14:45 02/17/19 14:30 02/17/19 14:15 02/17/19 14:02 02/17/19 13:45 94 02/17/19 13:30 02/17/19 13:15 91 02/17/19 13:01 96 02/17/19 13:00 95 02/17/19 12:45 96 02/17/19 12:31 94 02/17/19 12:30 93 02/17/19 12:15 94 02/17/19 12:01 91 06/05/19 12:00 92 02/17/19 11:45 92 02/17/19 11:37 91 02/17/19 11:30 02/17/19 11:25 92 02/17/19 11:16 95 02/17/19 11:13 02/17/19 11:07 92 02/17/19 11:00 87 L 02/17/19 10:31 95 02/17/19 10:30 96 02/17/19 10:01 93 02/17/19 10:00 93 02/17/19 09:49 92 02/17/19 09:30 02/17/19 09:00 95 02/17/19 08:30 98 02/17/19 08:02 98 02/17/19 08:00 100 02/17/19 07:30 100 02/17/19 07:24 100 02/17/19 07:23 100 02/17/19 07:16 95 02/17/19 07:00 02/17/19 06:45 96 02/17/19 06:31 96 02/17/19 06:00 97 02/17/19 05:30 97 02/17/19 05:15 96 02/17/19 05:01 95 02/17/19 04:56 94 02/17/19 04:55 99 02/17/19 04:43 95 02/17/19 04:42 97 02/17/19 04:32 100 (1) Aspiration pneumonia Aspiration pneumonia type: unspecified Laterality: unspecified laterality Lung location: unspecified part of lung Qualified Code(s): J69.0 - Pneumonitis due to inhalation of food and vomit (2) DM type 2 (diabetes mellitus, type 2) Diabetes mellitus terminal system operator insulin use: with terminal system operator use Diabetes mellitus complication status: with neurologic complications Diabetes mellitus complication detail: with polyneuropathy Qualified Code(s): E11.42 - Type 2 diabetes mellitus with diabetic polyneuropathy; Z79.4 - terminal system operator (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 (3) Depression Depression Type: unspecified Qualified Code(s): F32.9 - Major depressive disorder, single episode, unspecified (4) RHF (right heart failure) Heart failure chronicity: unspecified Qualified Code(s): I50.810 - Right heart failure, unspecified
[2019-02-17] MEDS: WARFARIN SOD 2 MG TAB PO SCH (17:12)
[2019-02-17] MEDS ORDERED: GLUCAGON FOR INJ 1 MG VIAL SQ PRN (17:14)
[2019-02-17] MEDS ORDERED: CARBOHYDRATES FOR HYPOGLYCEMIA PO PRN (17:14)
[2019-02-17] MEDS ORDERED: GLUCOSE 40% GEL 15 GM TUBE PO PRN (17:14)
[2019-02-17] MEDS ORDERED: GLUCOSE 10 TABS/TUBE PO PRN (17:14)
[2019-02-17] MEDS ORDERED: DEXTROSE 50% 50 ML SYRINGE IV PRN (17:14)
[2019-02-17] MEDS: SERTRALINE HCL 50 MG TABLET PO SCH (19:56)
[2019-02-17] MEDS: ATORVASTATIN 40 MG TAB PO SCH (19:57)
[2019-02-17] MEDS ORDERED: INSULIN GLARGINE SOLOSTAR 100 UNITS/ML 3 ML PEN SC SCH ×2 (21:00)
[2019-02-17] MEDS ORDERED: LANTUS PER UNIT CHARGE SQ SCH (21:00)
[2019-02-17] MEDS: MIDODRINE HCL 10 MG TAB PO SCH (22:56)
--- NOTE | 2019-02-17 23:58 | Emergency Department Note ---
Entered by Sanya Velez acting as a scribe for Briana Walton DO History of Present Illness General Chief complaint: Hypotension Stated complaint: HYPOTENSION/CARDIAC ASSESSMENT Time Seen by Provider: 02/17/19 01:35 Source: patient History of Present Illness Provider complaint: Shortness of breath Onset (ago): hour(s) less than 1 Location: chest Pain Consistency: + constant Maximum Pain Intensity: 0 Relieved By: + other (oxygen ) Exacerbated By: + none Associated symptoms: + denies other symptoms The patient is a 63 y/o female who presents to the emergency department for evaluation of constant shortness of breath beginning prior to arrival. The patient was brought from home to [facility] for three hours before she began having issues breathing. The EMS who brought her to the emergency department states that she has been having issues breathing so they put her on 10 liters non-rebreather mask. They note they were having issues getting an accurate pulse ox and blood pressure read. The patient states that she felt hot and sweaty when the shortness of breath began and from there things went downhill. She notes she is on 4 liters of oxygen at home which is usually enough. She states she takes Coumadin. Patient denies any other symptoms. Home Medications Home Medications Medication Instructions Recorded Confirmed Type albuterol sulfate 2.5 mg/3 mL 1.25 mg INH Q4H PRN 06/01/18 02/17/19 History (0.083 %) solution for nebulization albuterol sulfate HFA 90 2 puffs INH Q6H PRN 06/01/18 02/17/19 History mcg/actuation aerosol inhaler ascorbic acid (vitamin C) 500 mg 500 mg PO DAILY cap 06/01/18 02/17/19 History capsule atorvastatin 40 mg tablet 40 mg PO HS 06/01/18 02/17/19 History cholecalciferol (vitamin D3) 1,000 1,000 units PO DAILY 06/01/18 02/17/19 Histo ry unit capsule hydrocodone 5 mg-acetaminophen 325 1 tab PO Q6H PRN 06/01/18 02/17/19 History mg tablet insulin glargine (U-100) 100 30 units SQ HS 06/01/18 02/17/19 History unit/mL (3 mL) subcutaneous pen levothyroxine 125 mcg tablet 125 mcg PO QAM 06/01/18 02/17/19 History magnesium oxide 400 mg (241.3 mg 400 mg PO DAILY tab 06/01/18 02/17/19 History magnesium) tablet metoprolol succinate ER 25 mg 12.5 mg PO DAILY 06/01/18 02/17/19 History capsule sprinkle, ext. release 24 hr pantoprazole 20 mg tablet,delayed 20 mg PO QAM 06/01/18 02/17/19 History release sertraline 100 mg tablet 150 mg PO PM tab 06/01/18 02/17/19 History Anoro Ellipta 1 inh INHALATION DAILY 06/22/18 02/17/19 History docusate sodium [Colace] 100 mg PO BID 06/22/18 02/17/19 History nystatin 1 applic TOPICAL BID 06/22/18 02/17/19 History prednisone 5 mg PO DAILY 06/22/18 02/17/19 History lorazepam 0.5 mg PO UD PRN 07/15/18 02/17/19 History Probiotic 3,000 mmu cells PO DAILY 01/11/19 02/17/19 History Renal Vitamin 1 tab PO DAILY 01/11/19 02/17/19 History midodrine 5 mg PO SUTUTH@,01/11/19 02/17/19 History Novolog Flexpen U-100 Insulin 15 unit SUBCUT UD 02/04/19 02/17/19 History calcium acetate 2,668 mg PO TIDM 02/04/19 02/17/19 History cyanocobalamin (vitamin B-12) 1,000 mcg PO DAILY 02/04/19 02/17/19 History gabapentin 300 mg PO UD 02/04/19 02/17/19 History amoxicillin-pot clavulanate 1 tab PO BID #10 tab 02/11/19 02/17/19 Rx [Augmentin] budesonide-formoterol [Symbicort] 2 puff INHALATION BID #1 g 02/11/19 02/17/19 Rx prednisone 40 mg PO DAILY #10 tab 02/11/19 02/17/19 Rx warfarin [Coumadin] 2 mg PO DAILY@1600 #90 tab 02/11/19 02/17/19 Rx midodrine 5 mg PO MOWEFRSA@2100 02/17/19 02/17/19 History midodrine 10 mg PO MOWEFRSA@0900 02/17/19 02/17/19 History Allergies Allergy/AdvReac Type Severity Reaction Status Date / Time bacitracin Allergy Intermediate RASH,ITCH Verified 02/17/19 01:55 celecoxib Allergy Intermediate RASH TO Verified 02/17/19 01:55 SULFA DRUGS neomycin Allergy Intermediate RASH,ITCH Verified 02/17/19 01:55 polymyxin B Allergy Intermediate RASH,ITCH Verified 02/17/19 01:55 Sulfa (Sulfonamide Allergy Intermediate RASH,HAS Verified 02/17/19 01:55 Antibiotics) TAKEN GLIPIZIDE W/O REACTION tigecycline AdvReac Severe MILD Verified 02/17/19 01:55 PANCREATITIS codeine AdvReac Intermediate GI UPSET Verified 02/17/19 01:55 Past Med/Surg History Medical History Chronic knee pain (Chronic) COPD exacerbation (Resolved) Sleep apnea (Chronic) Chronic anemia (Chronic) Pneumonia (Acute) Generalized weakness (Resolved) Iron (Fe) deficiency anemia (Chronic) Morbid obesity (Chronic) Obesity hypoventilation syndrome (Chronic) Pressure ulcer Atrial fibrillation (Chronic) Pulmonary HTN (Chronic) COPD (chronic obstructive pulmonary disease) (Chronic) DM type 2 (diabetes mellitus, type 2) (Chronic) HTN (hypertension) (Chronic) RHF (right heart failure) (Chronic) Chronic respiratory failure with hypoxia (Chronic) ESRD (end stage renal disease) on dialysis (Chronic) Hypothyroidism (Chronic) Depression (Chronic) HLD (hyperlipidemia) (Chronic) Neuropathy (Chronic) Diabetic gastroparesis (Chronic) H/O deep venous thrombosis (Resolved) ESRD (end stage renal disease) on dialysis (Inactive) Surgical History History of tracheostomy History of hernia repair (Resolved) Status post laparoscopic cholecystectomy (Resolved) S/P debridement (Chronic) "08/30/2016- debridement bilateral lower extremity and buttock wounds" Hx of cholecystectomy (Resolved) Family History Other CKD (chronic kidney disease) Coronary heart disease Social History Preferred Language: Lithuanian Communication Ability: Effective Embroidery Operator Required: No Beliefs That Will Affect Care: None marital status: Current Living Situation: Family Other Information That Helps Us Care for You: No Feels Safe at Home: Yes Safety Concerns: Feels Safe At This Time Smoking Status: Unknown if ever smoked Hx Alcohol Use: No Hx Substance Use: No Review of Systems See HPI for pertinent positives & negatives. and A total of 10 systems reviewed and were otherwise negative Physical Exam Vital Signs Vital Signs - 24 hr 02/17/19 01:34 02/17/19 01:58 02/17/19 02:10 Temperature 36.7 C Temperature Source Oral Sepsis Recent Fever Within 48 Hours No Sepsis New/Unexplained Change in Mental Status No Sepsis Action Taken by Nursing No Action Required Pulse Rate 102 H Pulse Rate [Apical] 108 H Pulse Rhythm [Apical] Pulse Strength [Apical] Respiratory Rate 18 30 H Respiratory Effort / Characteristics Respiratory Depth Respiratory Pattern Blood Pressure [Right Arm] 82/54 L Blood Pressure Mean [Right Arm] 63 Blood Pressure Position [Right Arm] Sitting Pulse Oximetry 90 92 Oxygen Delivery Method Nasal Cannula Nasal Cannula Nasal Cannula Oxygen Flow Rate 6 6 6 Fraction of Inspired Oxygen 02/17/19 02:33 02/17/19 02:55 02/17/19 03:17 Temperature Temperature Source Sepsis Recent Fever Within 48 Hours Sepsis New/Unexplained Change in Mental Status Sepsis Action Taken by Nursing Pulse Rate 112 H Pulse Rate [Apical] 115 H 103 H Pulse Rhythm [Apical] Regular Pulse Strength [Apical] Normal Respiratory Rate 23 24 22 Respiratory Effort / Characteristics Non-Labored Spontaneous Moaning Short of Breath SOB on Exertion Respiratory Depth Normal Normal Respiratory Pattern Regular Regular Blood Pressure [Right Arm] 111/47 L 98/48 L Blood Pressure Mean [Right Arm] 68 64 Blood Pressure Position [Right Arm] Sitting Pulse Oximetry 77 L 99 Oxygen Delivery Method Nasal Cannula Oxygen Flow Rate 6 Fraction of Inspired Oxygen 70 02/17/19 03:30 Temperature Temperature Source Sepsis Recent Fever Within 48 Hours Sepsis New/Unexplained Change in Mental Status Sepsis Action Taken by Nursing Pulse Rate Pulse Rate [Apical] 107 H Pulse Rhythm [Apical] Pulse Strength [Apical] Respiratory Rate 22 Respiratory Effort / Characteristics Respiratory Depth Normal Respiratory Pattern Blood Pressure [Right Arm] 114/41 L Blood Pressure Mean [Right Arm] 65 Blood Pressure Position [Right Arm] Pulse Oximetry 100 Oxygen Delivery Method BiPAP Oxygen Flow Rate Fraction of Inspired Oxygen General: Mildly short of breath but mentating normally. HEENT: Head - normocephalic and atraumatic Pupils are equal, round, and reactive to light. Extraocular eye muscles are intact, and sclera are anicteric. Nose - moist nasal mucosa without discharge. Mouth - moist buccal mucosa. Oropharynx is nonerythematous and there is no tonsillar exudate or edema noted. Neck: Supple; no JVD, nuchal rigidity, cervical lymphadenopathy. Heart: Tachycardic with irregularly irregular rhythm. There is a normal S1 and S2 with no murmurs, clicks, or gallops appreciated. Lungs: Absent lung sounds in the right lung base otherwise diminished throughout. Abdomen: Soft, completely nontender, nondistended, with good bowel sounds. There are no palpable pulsatile masses or hepatosplenomegaly. There is no guarding, rigidity, or rebound noted. Extremities: No evidence of cyanosis, clubbing, or edema. There are easily palpable peripheral pulses. Skin: warm and dry with good turgor and no rashes. Multiple areas of contusions. Course 0126: The patient was evaluated in room B01. A complete history and physical exam was performed. The patient was observed on the phlebotomist and pulse oximeter. Initially, she was placed on 6 L of O2 by nasal cannula. We had a very difficult time maintaining an oxygen saturation reading. When respiratory therapy was present, we were able to get some slight readings 0154: I checked on the patient, her O2 sat was finally obtained and was between 88 and 90%. The patient had a twelve-lead EKG and chest x-ray as described above. 0205: I re-evaluated the patient. 0216: Ordered Zofran 4 mg IV. 0229: I checked on the patient and she describes feeling more short of breath. She will be put on BiPap 0251: [facility] at bedside he will evaluate for further management with edge grinder. Reevaluation(s) Reevaluation #1: I [facility], he will evaluate for further management. Time: 02:51 Administered Medications Ascorbic Acid (Vitamin C) 500 mg PO DAILY EDWIGE Stop: 03/19/19 08:59 Last Admin: 02/17/19 09:32 Dose: 500 mg Documented by: [id number] Atorvastatin Calcium (Lipitor) 40 mg PO HS EDWIGE Stop: 03/19/19 20:59 Last Admin: 02/17/19 19:57 Dose: 40 mg Documented by: [id number] Budesonide/Formoterol Fumarate (Symbicort 160mcg/4.5mcg) 2 puffs INH BID EDWIGE Stop: 03/19/19 08:59 Last Admin: 02/17/19 19:57 Dose: 2 puffs Documented by: [id number] Admin: 02/17/19 09:33 Dose: 2 puffs Documented by: [id number] Calcium Acetate (Phoslo) 2,668 mg PO TIDM EDWIGE Stop: 03/19/19 07:59 Last Admin: 02/17/19 17:11 Dose: 2,668 mg Documented by: [id number] Admin: 02/17/19 13:03 Dose: 2,668 mg Documented by: [id number] Admin: 02/17/19 09:32 Dose: 2,668 mg Documented by: [id number] Cyanocobalamin (Vitamin B-12) 1,000 mcg PO DAILY EDWIGE Stop: 03/19/19 08:59 Last Admin: 02/17/19 09:32 Dose: 1,000 mcg Documented by: [id number] Docusate Sodium (Colace) 100 mg PO BID EDWIGE Stop: 03/19/19 08:59 Last Admin: 02/17/19 19:57 Dose: 100 mg Documented by: [id number] Admin: 02/17/19 09:32 Dose: 100 mg Documented by: [id number] Gabapentin (Neurontin) 300 mg PO MoWeFrSa EDWIGE Stop: 03/19/19 13:59 Last Admin: 02/17/19 13:03 Dose: 300 mg Documented by: [id number] Gabapentin (Neurontin) 300 mg PO DAILY EDWIGE Stop: 03/19/19 08:59 Last Admin: 02/17/19 09:35 Dose: 300 mg Documented by: [id number] Ceftriaxone Sodium 2,000 mg/ (Dextrose) 70 mls @ 140 mls/hr IV Q24H EDWIGE Stop: 02/24/19 13:59 Last Infusion: 02/17/19 14:59 Dose: 0 mls/hr Documented by: [id number] Admin: 02/17/19 14:22 Dose: 140 mls/hr Documented by: [id number] Insulin Aspart (Novolog Flexpen) 0 units SC ACHS EDWIGE Stop: 03/19/19 20:59 Last Admin: 02/17/19 20:04 Dose: Not Given Documented by: [id number] Cosigned by: [id number] Ipratropium [place] (Atrovent 0.02% 0.5mg/2.5ml) 0.5 mg INH Q6R [facility] Stop: 03/19/19 07:59 Last Admin: 02/17/19 19:09 Dose: 0.5 mg Documented by: [id number] Admin: 02/17/19 13:49 Dose: 0.5 mg Documented by: [id number] Admin: 02/17/19 07:21 Dose: 0.5 mg Documented by: [id number] Levalbuterol HCl (Xopenex 1.25mg/0.5ml Neb) 1.25 mg INH Q6R [facility] Stop: 03/19/19 07:59 Last Admin: 02/17/19 19:09 Dose: 1.25 mg Documented by: [id number] Admin: 02/17/19 13:48 Dose: 1.25 mg Documented by: [id number] Admin: 02/17/19 07:21 Dose: 1.25 mg Documented by: [id number] Levothyroxine Sodium (Synthroid) 125 mcg PO DAILYBB [facility] Stop: 03/19/19 06:29 Last Admin: 02/17/19 08:35 Dose: 125 mcg Documented by: [id number] Magnesium Oxide (Mag-Ox) 400 mg PO DAILY EDWIGE Stop: 03/19/19 08:59 Last Admin: 02/17/19 09:34 Dose: 400 mg Documented by: [id number] Metoprolol Succinate (Toprol Xl) 12.5 mg PO DAILY [facility] Stop: 03/19/19 08:59 Last Admin: 02/17/19 09:33 Dose: 12.5 mg Documented by: [id number] Midodrine (Proamatine) 5 mg PO MoWeFrSa@2100 [facility] Stop: 03/19/19 20:59 Last Admin: 02/17/19 22:56 Dose: 5 mg Documented by: [id number] Miscellaneous (Order Awaiting Action) 1 ea N/A QS [facility] Stop: 03/19/19 07:59 Last Admin: 02/17/19 17:12 Dose: Not Given Documented by: [id number] Admin: 02/17/19 09:28 Dose: Not Given Documented by: [id number] Nystatin (Mycostatin) 1 appln EXT BID [facility] Stop: 03/19/19 08:59 Last Admin: 02/17/19 20:00 Dose: 1 appln Documented by: [id number] Admin: 02/17/19 09:33 Dose: 1 appln Documented by: [id number] Pantoprazole Sodium (Protonix) 40 mg PO QAM EDWIGE Stop: 03/19/19 08:59 Last Admin: 02/17/19 09:32 Dose: 40 mg Documented by: [id number] Sertraline HCl (Zoloft) 150 mg PO PM EDWIGE Stop: 03/19/19 20:59 Last Admin: 02/17/19 19:56 Dose: 150 mg Documented by: [id number] Vitamin B Complex/Folic Acid (Nephrocaps) 1 cap PO DAILY EDWIGE Stop: 03/19/19 08:59 Last Admin: 02/17/19 09:32 Dose: 1 cap Documented by: [id number] Vitamin D (Vitamin D3) 1,000 units PO DAILY EDWIG[facility] Stop: 03/19/19 08:59 Last Admin: 02/17/19 09:32 Dose: 1,000 units Documented by: [id number] Warfarin Sodium (Coumadin) 2 mg PO DAILY@1600 [facility] Stop: 03/19/19 15:59 Last Admin: 02/17/19 17:12 Dose: 2 mg Documented by: [id number] Discontinued Medications Alteplase, Recombinant (Activase Cathflo) 2 mg IV ONE ONE Stop: 02/17/19 12:26 Last Admin: 02/17/19 13:11 Dose: 2 mg Documented by: [id number] Cosigned by: [id number] Vancomycin HCl 2,000 mg/ (Sodium Chloride) 540 mls @ 200 mls/hr IV ONE ONE; Protocol Stop: 02/17/19 08:11 Last Infusion: 02/17/19 09:38 Dose: 0 mls/hr Documented by: [id number] Admin: 02/17/19 06:39 Dose: 200 mls/hr Documented by: [id number] Methylprednisolone 40 mg/ (Syringe) 0.64 mls @ 1.5 mls/min IV Q8H EDWIG[facility] Stop: 03/19/19 05:59 Last Admin: 02/17/19 07:07 Dose: 1.5 mls/min Documented by: [id number] Piperacillin Sod/Tazobactam (Sod 4.5 gm/ Dextrose) 120 mls @ 240 mls/hr IV ONE ONE; Protocol Stop: 02/17/19 05:59 Last Infusion: 02/17/19 08:40 Dose: 0 mls/hr Documented by: [id number] Admin: 02/17/19 06:45 Dose: 240 mls/hr Documented by: [id number] Parenteral Electrolytes (Normosol-R) 500 mls @ 999 mls/hr IV .Q31M ONE Stop: 02/17/19 06:46 Last Admin: 02/17/19 08:19 Dose: Not Given Documented by: [id number] Insulin Human Regular 250 (units/ Sodium Chloride) 250 mls @ 1 mls/hr IV .Q24H EDWIGE; Protocol Stop: 03/19/19 06:59 Last Titration: 02/17/19 17:09 Dose: 0 units/hr, 0 mls/hr Documented by: [id number] Cosigned by: [id number] Titration: 02/17/19 16:05 Dose: 1 units/hr, 1 mls/hr Documented by: [id number] Cosigned by: [id number] Titration: 02/17/19 15:01 Dose: 1.3 units/hr, 1.3 mls/hr Documented by: [id number] Cosigned by: [id number] Titration: 02/17/19 14:00 Dose: 1.6 units/hr, 1.6 mls/hr Documented by: [id number] Cosigned by: [id number] Titration: 02/17/19 12:53 Dose: 1.6 units/hr, 1.6 mls/hr Documented by: [id number] Cosigned by: [id number] Titration: 02/17/19 12:35 Dose: 0 units/hr, 0 mls/hr Documented by: [id number] Cosigned by: [id number] Titration: 02/17/19 12:20 Dose: 0 units/hr, 0 mls/hr Documented by: [id number] Cosigned by: [id number] Titration: 02/17/19 12:05 Dose: 0 units/hr, 0 mls/hr Documented by: [id number] Cosigned by: [id number] Titration: 02/17/19 10:51 Dose: 2.7 units/hr, 2.7 mls/hr Documented by: [id number] Cosigned by: [id number] Titration: 02/17/19 09:45 Dose: 3.4 units/hr, 3.4 mls/hr Documented by: [id number] Cosigned by: [id number] Admin: 02/17/19 08:22 Dose: 3.4 units/hr, 3.4 mls/hr Documented by: [id number] Cosigned by: [id number] Norepinephrine Bitartrate 8 mg (/ Dextrose) 508 mls @ 18.92 mls/hr IV .Q24H [facility]; Protocol Stop: 03/19/19 11:09 Last Titration: 02/17/19 17:09 Dose: 0 mcg/kg/min, 0 mls/hr Documented by: [id number] Admin: 02/17/19 11:25 Dose: 0.05 mcg/kg/min, 18.9 mls/hr Documented by: [id number] Cosigned by: [id number] Insulin Aspart (Novolog Flexpen) 0 units SC Q6 [facility] Stop: 03/19/19 05:59 Last Admin: 02/17/19 08:19 Dose: Not Given Documented by: [id number] Insulin Aspart (Novolog Flexpen) 0 units SC PCHS [facility] Stop: 03/19/19 08:59 Last Admin: 02/17/19 12:54 Dose: Not Given Documented by: [id number] Cosigned by: [id number] Admin: 02/17/19 09:35 Dose: Not Given Documented by: [id number] Cosigned by: [id number] Insulin Glargine (Lantus Solostar Pen) 20 units SC QPM [facility] Stop: 03/19/19 20:59 Last Admin: 02/17/19 20:05 Dose: 20 units Documented by: [id number] Cosigned by: [id number] Insulin Human Regular (Novolin R Bolus From Bag) 3.5 units IV ONE ONE Stop: 02/17/19 07:01 Last Admin: 02/17/19 08:23 Dose: 3.5 units Documented by: [id number] Cosigned by: [id number] Midodrine (Proamatine) 5 mg PO MoWeFrSa [facility] Stop: 03/19/19 13:59 Last Admin: 02/17/19 13:02 Dose: 5 mg Documented by: [id number] Midodrine (Proamatine) 5 mg PO MoWeFrSa [facility] Stop: 03/19/19 07:59 Last Admin: 02/17/19 10:46 Dose: Not Given Documented by: [id number] Midodrine (Proamatine) 5 mg PO ONE ONE Stop: 02/17/19 08:31 Last Admin: 02/17/19 10:46 Dose: Not Given Documented by: [id number] Midodrine (Proamatine) 10 mg PO MoWeFrSa EDWIGE Stop: 03/19/19 10:21 Last Admin: 02/17/19 10:47 Dose: 10 mg Documented by: [id number] Midodrine (Proamatine) 5 mg PO MoWeFrSa@1800 [facility] Stop: 03/19/19 17:59 Last Admin: 02/17/19 18:11 Dose: Not Given Documented by: [id number] Ondansetron HCl (Zofran) 4 mg IV NOW STA Stop: 02/17/19 02:17 Last Admin: 02/17/19 02:20 Dose: 4 mg Documented by: [id number] Medical Decision Making Differential Diagnosis Differential Diagnosis: COPD exacerbation, pulmonary edema, pneumonia. Medical Records Attestation: I reviewed the patient's medical records. Home Medications Current Medication List: was personally reviewed by me Laboratory Data Attestation: I reviewed the patient's lab results. Result diagrams: 02/17/19 01:50 02/17/19 01:50 Lab Results 02/17/19 02/17/19 02/17/19 Range/Units 01:50 01:50 01:50 WBC 22.31 H (4.8-10.8) K/uL RBC 3.91 L (4.2-5.4) M/uL Hgb 11.3 L (12.0-16.0) g/dL Hct 36.9 L (37-47) % MCV 94.4 (80-100) fL MCH 28.9 (25-34) pg MCHC 30.6 L (32-36) g/dL RDW Std Deviation 71.9 H (36.4-46.3) fL RDW Coeff of Yogi 21.1 H (11.5-14.5) % Plt Count 327 (130-400) K/uL MPV 10.0 (7.4-10.4) fL Immature Gran % (Auto) 4.1 % Neut % (Auto) 84.0 % Lymph % (Auto) 3.7 % [place] % (Auto) 7.8 % Eos % (Auto) 0.2 % Baso % (Auto) 0.2 % Immature Gran # (Auto) 0.92 H (0.00-0.02) K/uL Neut # (Auto) 18.73 H (1.4-6.5) K/uL Lymph # (Auto) 0.83 L (1.2-3.4) K/uL [place] # (Auto) 1.75 H (0.11-0.59) K/uL Eos # (Auto) 0.04 (0-0.5) K/uL Baso # (Auto) 0.04 (0-0.2) K/uL Absolute Nucleated RBC 0.08 H (0-0) K/uL Nucleated RBC % (auto) 0.4 % Anisocytosis Present PT 22.5 H (9.0-12.0) Seconds INR 2.3 H (0.9-1.1) APTT 36.8 H (21.0-31.0) Seconds PTT Ratio 1.4 POC VBG pH (7.36-7.41) POC VBG pCO2 (38-50) mmHg POC VBG pO2 (30-55) mmHg POC VBG HCO3 (23-28) meq/L POC VBG Total CO2 (24-31) mEq/l POC Venous O2 Sat (70-80) % POC VBG Base Excess meq/L Sodium 130 L (136-145) mmol/L Potassium 5.0 (3.5-5.1) mmol/L Chloride 97 L (98-107) mmol/L Carbon Dioxide 19 L (21-32) mmol/L Anion Gap 14.0 H (3-11) BUN 44 H (7-18) mg/dl Creatinine 5.28 H* (0.6-1.2) mg/dl Est Cr Clr Drug Dosing 12.1 ml/min Est GFR ( Amer) 9.2 Est GFR (Non-Af Amer) 8.0 BUN/Creatinine Ratio 8.4 L (10-20) Glucose 255 H (70-99) mg/dl Calcium 8.2 L (8.5-10.1) mg/dl Total Bilirubin 0.4 (0.2-1) mg/dl AST 92 H (15-37) U/L ALT 71 (12-78) U/L Alkaline Phosphatase 287 H (45-117) U/L Troponin I 0.105 H* (0-0.045) ng/ml Total Protein 6.9 (6.4-8.2) gm/dl Albumin 2.4 L (3.4-5.0) gm/dl Globulin 4.5 H (2.5-4.0) gm/dl Albumin/Globulin Ratio 0.5 L (0.9-2) 02/17/19 02/17/19 02/17/19 Range/Units 03:19 03:19 03:19 WBC (4.8-10.8) K/uL RBC (4.2-5.4) M/uL Hgb (12.0-16.0) g/dL Hct (37-47) % MCV (80-100) fL MCH (25-34) pg MCHC (32-36) g/dL RDW Std Deviation (36.4-46.3) fL RDW Coeff of Yogi (11.5-14.5) % Plt Count (130-400) K/uL MPV (7.4-10.4) fL Immature Gran % (Auto) % Neut % (Auto) % Lymph % (Auto) % [place] % (Auto) % Eos % (Auto) % Baso % (Auto) % Immature Gran # (Auto) (0.00-0.02) K/uL Neut # (Auto) (1.4-6.5) K/uL Lymph # (Auto) (1.2-3.4) K/uL [place] # (Auto) (0.11-0.59) K/uL Eos # (Auto) (0-0.5) K/uL Baso # (Auto) (0-0.2) K/uL Absolute Nucleated RBC (0-0) K/uL Nucleated RBC % (auto) % Anisocytosis PT 22.7 H (9.0-12.0) Seconds INR 2.4 H (0.9-1.1) APTT (21.0-31.0) Seconds PTT Ratio POC VBG pH 7.16 L* 7.16 L* (7.36-7.41) POC VBG pCO2 55 H 55 H (38-50) mmHg POC VBG pO2 36 36 (30-55) mmHg POC VBG HCO3 19 L 19 L (23-28) meq/L POC VBG Total CO2 21 L 21 L (24-31) mEq/l POC Venous O2 Sat 53.0 L 53.0 L (70-80) % POC VBG Base Excess -9.0 -9.0 meq/L Sodium (136-145) mmol/L Potassium (3.5-5.1) mmol/L Chloride (98-107) mmol/L Carbon Dioxide (21-32) mmol/L Anion Gap (3-11) BUN (7-18) mg/dl Creatinine (0.6-1.2) mg/dl Est Cr Clr Drug Dosing ml/min Est GFR ( Amer) Est GFR (Non-Af Amer) BUN/Creatinine Ratio (10-20) Glucose (70-99) mg/dl Calcium (8.5-10.1) mg/dl Total Bilirubin (0.2-1) mg/dl AST (15-37) U/L ALT (12-78) U/L Alkaline Phosphatase (45-117) U/L Troponin I (0-0.045) ng/ml Total Protein (6.4-8.2) gm/dl Albumin (3.4-5.0) gm/dl Globulin (2.5-4.0) gm/dl Albumin/Globulin Ratio (0.9-2) Imaging Data Attestation: I personally reviewed and interpreted this imaging study as follows: My Impression: Chest X-ray showed right side plural effusion cardiomegaly which increased since Feb 04 2019 ECG Data Attestation: I personally reviewed and interpreted this ECG as follows: Indication: SOB/dyspnea Rate (beats per minute): 117 Rhythm: atrial fibrillation (with RVR) Findings: + T-wave inversion (inferiorly ) Comparison ECG Date: from (02/04/19) Change: no significant change Blood Pressure Blood Pressure Findings: Low blood pressure Blood Pressure Disposition: further management by hospitalist PATY Narrative The patient is a 63 y/o female who presents to the emergency department for evaluation of constant shortness of breath beginning prior to arrival. The patient had just been admitted at [facility] approximately 3 hours ago. She describes being on her usual amount of oxygen but then felt increasingly short of breath. She does have history of COPD and congestive heart failure. She denies having fevers or increasing cough or a productive cough. We had a difficult time obtaining the patient's blood pressure and oxygen saturation. However, the patient was mentating normally and had an easily palpable radial pulse. Once the pulse ox was registering, it was between 88-92% on 6 L by nasal cannula. Patient felt increasingly short of breath and was switched to BiPAP. She did have evidence of a larger sized right sided pleural effusion on chest x-ray. The patient eventually had a VBG which showed a pH of 7.1 with a PCO2 of 54 and a bicarb of 19 which was concerning for metabolic acidosis. The patient had atrial fibrillation with rapid ventricular response. However, with some time, her rates came down into the 90s. The patient is due for dialysis this morning. Her potassium was stable. I discussed the case with Dr. Partida who [facility] and he spoke with the edge grinder about admission. Impression & Plan Hypoxia, Atrial fibrillation with RVR Critical Care Time I have personally spent 60 minutes of critical care time in the direct management of this patient. This includes bedside care, interpretation of diagnostic studies, and testing, discussion with consultants, patient, and family members, and other required patient management activities. This 60 minutes is in excess of all separately billable procedures. Critical Care Time: Yes Total Critical Care Time: 60 Discharge Plan Visit Data *Final* Discharge Date/Time: 02/17/19 04:32 Chief Complaint: Hypotension Stated Complaint: HYPOTENSION/CARDIAC ASSESSMENT Other Complaint: Cardiac Assessment ED Provider: Briana Walton Discharge Problem: Hypoxia, Atrial fibrillation with RVR Patient Disposition: Admitted As Inpatient Discharge Instructions Interventions: ED Discharge Assessment Last Done: 02/17/19 04:32 The scribe's documentation has been prepared under my direction and personally reviewed by me in its entirety. I confirm that the note above accurately reflects all work, treatment, procedures, and medical decision making performed by me.
[2019-02-18] MEDS: IPRATROPIUM BROMIDE NEB SOLN 0.02% 2.5 ML VIAL INH SCH ×4 (02:26→19:20)
[2019-02-18] MEDS: LEVALBUTEROL 1.25MG/0.5ML NEB INH SCH ×4 (02:26→19:20)
[2019-02-18 02:55] LABS: Basophils # (auto) 0.02 K/uL (0-0.2); Basophils % (auto) 0.1 %; Eosinophils # (auto) 0.03 K/uL (0-0.5); Eosinophils % (auto) 0.1 %; Hematocrit (blood only) 34.2 % (37-47); Hemoglobin 10.7 g/dL (12.0-16.0); Immature Granulocytes # (auto) 0.16 K/uL (0.00-0.02); Immature Granulocytes % (auto) 0.7 %; Lymphocytes # (auto) 0.98 K/uL (1.2-3.4); Lymphocytes % (auto) 4.5 %; Mean Corpuscular Hgb Conc 31.3 g/dL (32-36); Mean Corpuscular Volume 92.4 fL (80-100); Mean Platelet Volume 8.8 fL (7.4-10.4); Monocytes # (auto) 1.81 K/uL (0.11-0.59); Monocytes % (auto) 8.4 %; Neutrophils # (auto) 18.62 K/uL (1.4-6.5); Neutrophils % (auto) 86.2 %; Nucleated RBC # (auto) 0.05 K/uL (0-0); Nucleated RBC % (auto) 0.3 %; Platelet Count 206 K/uL (130-400); RDW Coefficient of Variation 20.6 % (11.5-14.5); RDW Standard Deviation 67.1 fL (36.4-46.3); White Blood Count 21.62 K/uL (4.8-10.8)
[2019-02-18] MEDS: MIDODRINE HCL 2.5 MG TAB PO SCH ×2 (03:00→20:21)
[2019-02-18 03:13] LABS: INR 1.9 (0.9-1.1)
[2019-02-18 03:17] LABS: BUN Creatinine Ratio 8.5 (10-20); Calcium 9.2 mg/dl (8.5-10.1); Creatinine Clr Calc Pharmacy 13.7 ml/min; Est GFR (African American) 11.6; Magnesium 2.2 mg/dl (1.8-2.4); Potassium 4.7 mmol/L (3.5-5.1)
[2019-02-18 03:19] LABS: Anisocytosis Present; Tear Drop Cells 1+
[2019-02-18] MEDS: LEVOTHYROXINE SODIUM 125 MCG TABLET PO SCH (06:40)
[2019-02-18] MEDS: INSULIN ASPART 100 UNITS/ML 3 ML PEN SC SCH ×4 (07:57→20:30)
[2019-02-18] MEDS: DOCUSATE SODIUM 100 MG CAP PO SCH ×2 (07:59→20:20)
[2019-02-18] MEDS: PANTOprazole 40 MG TAB PO SCH (07:59)
[2019-02-18] MEDS: CYANOCOBALAMIN 500 MCG TABLET (VITAMIN B-12) PO SCH (07:59)
[2019-02-18] MEDS: CHOLECALCIFEROL 1,000 UNITS TAB PO SCH (08:00)
[2019-02-18] MEDS: NEPHROCAPS PO SCH (08:00)
[2019-02-18] MEDS ORDERED: MIDODRINE HCL 2.5 MG TAB PO SCH (08:00)
[2019-02-18] MEDS: GABAPENTIN 300 MG CAP PO SCH (08:01)
[2019-02-18] MEDS: NYSTATIN POWDER 15GM BTL EXT SCH ×2 (08:01→20:22)
[2019-02-18] MEDS: BUDESONIDE/FORMOTEROL FUMARATE 160/4.5 60 PUFFS/INHALER INH SCH ×2 (08:01→20:21)
[2019-02-18] MEDS: CALCIUM ACETATE 667 MG CAP PO SCH ×3 (08:02→17:04)
[2019-02-18] MEDS: METOPROLOL SUCC 25MG EXT REL TAB PO SCH (08:10)
[2019-02-18] MEDS: ASCORBIC ACID 500 MG TAB PO SCH (08:14)
[2019-02-18 08:18] LABS: Prothrombin Time 19.8 Seconds (9.0-12.0)
[2019-02-18] MEDS ORDERED: MIDODRINE HCL 10 MG TAB PO SCH (09:00)
[2019-02-18] MEDS: MAGNESIUM OXIDE 400 MG TAB PO SCH (09:09)
[2019-02-18] MEDS: cefTRIAXone SODIUM 2,000 MG in DEXTROSE 5% 50 ML IV SCH (14:24)
--- NOTE | 2019-02-18 14:27 | Hospitalist Progress Note ---
Date of Service February 18, 2019 Assessment & Plan (1) Aspiration pneumonia: continuing with ceftriaxone, clinically improved. She had an episode of acute hypoxia when she fell asleep that is likely a multifactorial issue including obesity hypoventilation, poor compliance with incentive spirometry, deconditioning after multiple recent hospitalizations, and underlying pneumonia in the setting of chronic right heart failure. It took replacing the BIPAP for a few minutes with 100% oxygen to achieve normal saturation levels after this event. Later she was able to come off the bipap and maintain on 8L via NC. May need frequent BIPAP throughout the day, especially with sleeping. (2) Chronic respiratory failure with hypoxia: in setting of COPD and chronic RHF; reports using 4L: home oxygen 07/04 (3) DM type 2 (diabetes mellitus, type 2): glucose readings at goal and on the low side. Lantus stopped, cont ISS (4) Depression: stable, cont sertraline (5) ESRD (end stage renal disease) on dialysis: cont inpatient HD per Nephro. Midodrine ordered with extra dosing on HD days. (6) RHF (right heart failure): chronic, compensated (7) Atrial fibrillation: controlled on Toprol. Cont coumadin. Daily INR (8) DVT prophylaxis: warfarin Full Code Dispo-likely hospitalized for another few days. Plan to return to [facility] at discharge. Tricia King DO [facility] Hospitalist Subjective Hypoxic event earlier today where she was found sleeping and cyanotic appearing. Pulse ox was placed showing sat in 70s. Waking her up and placing oxymask only brought her to the low 80s. Respiratory called and BIPAP reinitiated with improvement of saturation into the 90s. Lungs are clear today after BIPAP has been on for some time. Nurse reports coarse rhonchi throughout prior to initiation of this. She reports feeling well, denies SOB, denies coughing, fevers, chills or pain. Reports some pain in her glutes related to pressure on her wounds. Asking to eat food. Discussed this with ICU attending. With resources available on the current floor, it is very possible the nurse may miss a future hypoxic event like this. Although her lungs are clear, she appears to need more consistent BIPAP therapy. There is no good endpoint here, so will add continuous pulse oximetry with alarm and keep her on the floor. Review of Systems Review of Systems: All systems reviewed & are unremarkable except as noted in HPI & below Physical Exam Physical Exam: CONSTITUTIONAL: obese, fatigued, vitals as above, deconditioned EYES: normal conjuctivae, no scleral icterus ENT: MMM RESPIRATORY: clear to auscultation bilaterally, no crackles, rales or wheezes, normal respiratory effort on bipap CARDIOVASCULAR: regular rate and rhythm, S1 and 2 heard without murmurs, gall ops or rubs, no JVD, no peripheral edema GASTROINTESTINAL: normal bowel sounds, soft, nontender, nondistended MUSCULOSKELETAL: generalized weakness, head is normocephalic and atraumatic SKIN: warm and dry NEUROLOGIC: CN 2-12 grossly intact, no gross focal deficits. PSYCHIATRIC: alert cooperative and oriented to person, place and time Results & Data Vital Signs (Past 12 Hours) Vital Signs Temp Pulse Pulse Pulse Resp BP BP 02/18/19 12:22 104 H 26 H 02/18/19 11:33 37.1 C 103 H 20 86/42 L 02/18/19 08:24 36.7 C 96 H 19 90/52 L 02/18/19 08:00 104 H 02/18/19 07:20 102 H 18 02/18/19 06:02 95 H 19 88/53 L 02/18/19 06:00 101 H 21 77/44 L 02/18/19 04:00 36.7 C 92 H 17 84/51 L 02/18/19 03:01 88 17 89/51 L 02/18/19 02:35 89 23 Pulse Ox 02/18/19 12:22 95 02/18/19 11:33 87 L 02/18/19 08:24 94 02/18/19 08:00 02/18/19 07:20 99 02/18/19 06:02 96 02/18/19 06:00 95 02/18/19 04:00 95 02/18/19 03:01 96 02/18/19 02:35 96 Laboratory Results Short CBC 02/18/19 Range/Units 02:44 WBC 21.62 H (4.8-10.8) K/uL Hgb 10.7 L (12.0-16.0) g/dL Hct 34.2 L (37-47) % Plt Count 206 (130-400) K/uL BMP 02/18/19 02:44 Sodium 132 L Potassium 4.7 Chloride 98 Carbon Dioxide 26 BUN 37 H Creatinine 4.36 H D Glucose 68 L Calcium 9.2 Medications Administered Current Inpatient Medications Hydrocodone Bitart/Acetaminophen ([place] 5/325) 1 tab PO Q6H PRN PRN Reason: Pain Stop: 03/03/19 05:04 Last Admin: 02/18/19 19:24 Dose: 1 tab Documented by: Albuterol (Ventolin Hfa) 2 puffs INH Q6H PRN PRN Reason: Shortness Of Breath Stop: 03/19/19 05:04 Ascorbic Acid (Vitamin C) 500 mg PO DAILY EDWIGE Stop: 03/19/19 08:59 Last Admin: 02/18/19 08:14 Dose: 500 mg Documented by: Atorvastatin Calcium (Lipitor) 40 mg PO HS EDWIGE Stop: 03/19/19 20:59 Last Admin: 02/18/19 20:21 Dose: 40 mg Documented by: Budesonide/Formoterol Fumarate (Symbicort 160mcg/4.5mcg) 2 puffs INH BID EDWIGE Stop: 03/19/19 08:59 Last Admin: 02/18/19 20:21 Dose: 2 puffs Documented by: Calcium Acetate (Phoslo) 2,668 mg PO TIDM EDWIGE Stop: 03/19/19 07:59 Last Admin: 02/18/19 17:04 Dose: 2,668 mg Documented by: Cyanocobalamin (Vitamin B-12) 1,000 mcg PO DAILY EDWIGE Stop: 03/19/19 08:59 Last Admin: 02/18/19 07:59 Dose: 1,000 mcg Documented by: Dextrose (Dextrose 50%) 25 - 50 ml IV UD PRN; Protocol PRN Reason: Hypoglycemia Protocol Stop: 03/19/19 17:13 Docusate Sodium (Colace) 100 mg PO BID EDWIGE Stop: 03/19/19 08:59 Last Admin: 02/18/19 20:20 Dose: 100 mg Documented by: Gabapentin (Neurontin) 300 mg PO MoWeFrSa EDWIGE Stop: 03/19/19 13:59 Last Admin: 02/17/19 13:03 Dose: 300 mg Documented by: Gabapentin (Neurontin) 300 mg PO DAILY EDWIGE Stop: 03/19/19 08:59 Last Admin: 02/18/19 08:01 Dose: 300 mg Documented by: Glucagon (Glucagen) 1 mg SQ UD PRN; Protocol PRN Reason: Hypoglycemia Protocol Stop: 03/19/19 17:13 Glucose (Dex4 Glucose) 4 - 8 tabs PO UD PRN; Protocol PRN Reason: Hypoglycemia Protocol Stop: 03/19/19 17:13 Glucose (Glucose 40%) 15 - 30 gm PO UD PRN; Protocol PRN Reason: Hypoglycemia Protocol Stop: 03/19/19 17:13 Ceftriaxone Sodium 2,000 mg/ (Dextrose) 70 mls @ 140 mls/hr IV Q24H EDWIGE Stop: 02/24/19 13:59 Last Infusion: 02/18/19 14:53 Dose: Infused Documented by: Insulin Aspart (Novolog Flexpen) 0 units SC ACHS EDWIGE Stop: 03/19/19 20:59 Last Admin: 02/18/19 20:30 Dose: Not Given Documented by: Ipratropium [place] (Atrovent 0.02% 0.5mg/2.5ml) 0.5 mg INH Q6R [facility] Stop: 03/19/19 07:59 Last Admin: 02/18/19 19:20 Dose: 0.5 mg Documented by: Levalbuterol HCl (Xopenex 1.25mg/0.5ml Neb) 1.25 mg INH Q6R [facility] Stop: 03/19/19 07:59 Last Admin: 02/18/19 19:20 Dose: 1.25 mg Documented by: Levothyroxine Sodium (Synthroid) 125 mcg PO DAILYBB [facility] Stop: 03/19/19 06:29 Last Admin: 02/18/19 06:40 Dose: 125 mcg Documented by: Lorazepam (Ativan) 0.5 mg PO UD PRN PRN Reason: Anxiety Stop: 03/19/19 05:04 Magnesium Oxide (Mag-Ox) 400 mg PO DAILY EDWIGE Stop: 03/19/19 08:59 Last Admin: 02/18/19 09:09 Dose: 400 mg Documented by: Metoprolol Succinate (Toprol Xl) 12.5 mg PO DAILY EDWIGE Stop: 03/19/19 08:59 Last Admin: 02/18/19 08:10 Dose: Not Given Documented by: Midodrine (Proamatine) 5 mg PO MoWeFrSa@2100 [facility] Stop: 03/19/19 20:59 Last Admin: 02/17/19 22:56 Dose: 5 mg Documented by: Midodrine (Proamatine) 10 mg PO MoWeFrSa@0900 [facility] Stop: 03/21/19 08:59 Midodrine (Proamatine) 5 mg PO SuTuTh@0900,2100 [facility] Stop: 03/20/19 02:29 Last Admin: 02/18/19 20:21 Dose: 5 mg Documented by: Miscellaneous (Order Awaiting Action) 1 ea N/A QS EDWIGE Stop: 03/19/19 07:59 Last Admin: 02/18/19 23:29 Dose: Not Given Documented by: Miscellaneous (Carbohydrates For Hypoglycemia) 15 - 30 gm PO UD PRN PRN Reason: Hypoglycemia Treatment Stop: 03/19/19 17:13 Nystatin (Mycostatin) 1 appln EXT BID [facility] Stop: 03/19/19 08:59 Last Admin: 02/18/19 20:22 Dose: 1 appln Documented by: Pantoprazole Sodium (Protonix) 40 mg PO QAM [facility] Stop: 03/19/19 08:59 Last Admin: 02/18/19 07:59 Dose: 40 mg Documented by: Sertraline HCl (Zoloft) 150 mg PO PM [facility] Stop: 03/19/19 20:59 Last Admin: 02/18/19 20:21 Dose: 150 mg Documented by: Vitamin B Complex/Folic Acid (Nephrocaps) 1 cap PO DAILY [facility] Stop: 03/19/19 08:59 Last Admin: 02/18/19 08:00 Dose: 1 cap Documented by: Vitamin D (Vitamin D3) 1,000 units PO DAILY EDWIGE Stop: 03/19/19 08:59 Last Admin: 02/18/19 08:00 Dose: 1,000 units Documented by: Warfarin Sodium (Coumadin) 2 mg PO DAILY@1600 [facility] Stop: 03/19/19 15:59 Last Admin: 02/18/19 17:02 Dose: 2 mg Documented by: (1) Aspiration pneumonia Aspiration pneumonia type: unspecified Laterality: unspecified laterality Lung location: unspecified part of lung Qualified Code(s): J69.0 - Pneumonitis due to inhalation of food and vomit (2) DM type 2 (diabetes mellitus, type 2) Diabetes mellitus assisted insulin use: with assisted use Diabetes mellitus complication status: with neurologic complications Diabetes mellitus complication detail: with polyneuropathy Qualified Code(s): E11.42 - Type 2 diabetes mellitus with diabetic polyneuropathy; Z79.4 - FPC (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 (3) Depression Depression Type: unspecified Qualified Code(s): F32.9 - Major depressive disorder, single episode, unspecified (4) RHF (right heart failure) Heart failure chronicity: unspecified Qualified Code(s): I50.810 - Right heart failure, unspecified
[2019-02-18] MEDS: WARFARIN SOD 2 MG TAB PO SCH (17:02)
[2019-02-18] MEDS: HYDROCODONE/ACETAMOPHEN 5/325MG TAB PO PRN (19:24)
[2019-02-18] MEDS: ATORVASTATIN 40 MG TAB PO SCH (20:21)
[2019-02-18] MEDS: SERTRALINE HCL 50 MG TABLET PO SCH (20:21)
--- NOTE | 2019-02-18 20:29 | Nephrology Progress Note ---
Date of Service February 18, 2019 Assessment & Plan (1) ESRD (end stage renal disease) on dialysis: Patient with ESRD on dialysis Friday. She was dialyzed yesterday after cathflo due to catheter problems. We will plan to dialyze her again tomorrow for 4 hours and target UF of 3 L. (2) Acute and chronic respiratory failure with hypoxia: Likely multifactorial including volume overload and pneumonia. She is receiving IV antibiotics per primary team. Will attempt 3 liter UF tomorrow. (3) Hypotension: Due to dialysis and CHF. She is getting Midodrin. She might need Levophed during dialysis. Subjective Seen in f/u during morning rounds. She was seated in chair on oxygen. Breathing at baseline. She tolerated HD yesterday. Review of Systems Review of Systems: All systems reviewed & are unremarkable except as noted in HPI & below Physical Exam Physical Exam: General exam: Appears comfortable on oxygen, no acute distress HEENT: Pupils are equal and reactive to light Neck: No JVD, neck is supple trachea is midline Respiratory system: Clear breath sounds bilaterally. Gastrointestinal: Abdomen is soft, non distended, non tender, bowel sounds are present CVS: Regular rate and rhythm. No murmurs, rubs or gallops Musculoskeletal: No joint or muscle tenderness Extremities: Non tender, trace edema, peripheral pulses are present Neuro: Oriented, no tremors, no focal neurological deficits Skin: No rashes Results & Data Vital Signs (Past 12 Hours) Vital Signs Temp Pulse Pulse Pulse Resp BP Pulse Ox 02/18/19 19:22 108 H 21 94 02/18/19 19:21 108 H 21 94 02/18/19 19:11 37.0 C 107 H 22 103/59 L 94 02/18/19 16:00 100 H 02/18/19 15:51 36.4 C L 101 H 20 112/56 L 97 02/18/19 14:26 99 H 99 H 18 100 02/18/19 12:22 104 H 26 H 95 02/18/19 11:33 37.1 C 103 H 20 86/42 L 87 L Laboratory Results Laboratory Results - last 24 hr 02/17/19 02/18/19 02/18/19 20:04 02:44 02:44 WBC 21.62 H RBC 3.70 L Hgb 10.7 L Hct 34.2 L MCV 92.4 MCH 28.9 MCHC 31.3 L RDW Std Deviation 67.1 H RDW Coeff of Yogi 20.6 H Plt Count 206 MPV 8.8 Immature Gran % (Auto) 0.7 Neut % (Auto) 86.2 Lymph % (Auto) 4.5 [place] % (Auto) 8.4 Eos % (Auto) 0.1 Baso % (Auto) 0.1 Immature Gran # (Auto) 0.16 H Neut # (Auto) 18.62 H Lymph # (Auto) 0.98 L [place] # (Auto) 1.81 H Eos # (Auto) 0.03 Baso # (Auto) 0.02 Absolute Nucleated RBC 0.05 H Nucleated RBC % (auto) 0.3 Anisocytosis Present Tear Drop Cells 1+ PT 19.0 H INR 1.9 H Sodium Potassium Chloride Carbon Dioxide Anion Gap BUN Creatinine Est Cr Clr Drug Dosing Est GFR ( Amer) Est GFR (Non-Af Amer) BUN/Creatinine Ratio Glucose POC Glucose 107 H Lactate Calcium Magnesium 02/18/19 02/18/19 02/18/19 02:44 02:44 06:17 WBC RBC Hgb Hct MCV MCH MCHC RDW Std Deviation RDW Coeff of Yogi Plt Count MPV Immature Gran % (Auto) Neut % (Auto) Lymph % (Auto) [place] % (Auto) Eos % (Auto) Baso % (Auto) Immature Gran # (Auto) Neut # (Auto) Lymph # (Auto) [place] # (Auto) Eos # (Auto) Baso # (Auto) Absolute Nucleated RBC Nucleated RBC % (auto) Anisocytosis Tear Drop Cells PT INR Sodium 132 L Potassium 4.7 Chloride 98 Carbon Dioxide 26 Anion Gap 8.0 BUN 37 H Creatinine 4.36 H D Est Cr Clr Drug Dosing 13.7 Est GFR ( Amer) 11.6 Est GFR (Non-Af Amer) 10.0 BUN/Creatinine Ratio 8.5 L Glucose 68 L POC Glucose 82 Lactate 1.3 Calcium 9.2 Magnesium 2.2 02/18/19 02/18/19 02/18/19 07:33 07:39 11:27 WBC RBC Hgb Hct MCV MCH MCHC RDW Std Deviation RDW Coeff of Yogi Plt Count MPV Immature Gran % (Auto) Neut % (Auto) Lymph % (Auto) [place] % (Auto) Eos % (Auto) Baso % (Auto) Immature Gran # (Auto) Neut # (Auto) Lymph # (Auto) [place] # (Auto) Eos # (Auto) Baso # (Auto) Absolute Nucleated RBC Nucleated RBC % (auto) Anisocytosis Tear Drop Cells PT 19.8 H INR 2.0 H Sodium Potassium Chloride Carbon Dioxide Anion Gap BUN Creatinine Est Cr Clr Drug Dosing Est GFR ( Amer) Est GFR (Non-Af Amer) BUN/Creatinine Ratio Glucose POC Glucose 88 114 H Lactate Calcium Magnesium 02/18/19 02/18/19 16:43 20:13 WBC RBC Hgb Hct MCV MCH MCHC RDW Std Deviation RDW Coeff of Yogi Plt Count MPV Immature Gran % (Auto) Neut % (Auto) Lymph % (Auto) [place] % (Auto) Eos % (Auto) Baso % (Auto) Immature Gran # (Auto) Neut # (Auto) Lymph # (Auto) [place] # (Auto) Eos # (Auto) Baso # (Auto) Absolute Nucleated RBC Nucleated RBC % (auto) Anisocytosis Tear Drop Cells PT INR Sodium Potassium Chloride Carbon Dioxide Anion Gap BUN Creatinine Est Cr Clr Drug Dosing Est GFR ( Amer) Est GFR (Non-Af Amer) BUN/Creatinine Ratio Glucose POC Glucose 88 93 Lactate Calcium Magnesium (1) Hypotension Hypotension type: unspecified hypotension type Qualified Code(s): I95.9 - Hypotension, unspecified
[2019-02-18] MEDS ORDERED: INSULIN GLARGINE SOLOSTAR 100 UNITS/ML 3 ML PEN SC SCH (21:00)
[2019-02-18] MEDS ORDERED: ALBUMIN 25% 50 ML IV ONE (21:14)
[2019-02-18] MEDS ORDERED: DIGOXIN 250 MCG in SYRINGE 9 ML IV ONE (21:30)
[2019-02-19] MEDS: METOPROLOL SUCC 25MG EXT REL TAB PO SCH (01:05)
[2019-02-19] MEDS: IPRATROPIUM BROMIDE NEB SOLN 0.02% 2.5 ML VIAL INH SCH ×4 (01:34→19:15)
[2019-02-19] MEDS: LEVALBUTEROL 1.25MG/0.5ML NEB INH SCH ×4 (01:34→19:15)
[2019-02-19] MEDS: LEVOTHYROXINE SODIUM 125 MCG TABLET PO SCH (05:51)
[2019-02-19 06:13] LABS: Hematocrit (blood only) 32.1 % (37-47); Hemoglobin 10.1 g/dL (12.0-16.0); Mean Corpuscular Hgb Conc 31.5 g/dL (32-36); Mean Corpuscular Volume 92.8 fL (80-100); Nucleated RBC # (auto) 0.04 K/uL (0-0); Nucleated RBC % (auto) 0.2 %; Platelet Count 187 K/uL (130-400); RDW Coefficient of Variation 20.8 % (11.5-14.5); RDW Standard Deviation 68.8 fL (36.4-46.3); Red Blood Count 3.46 M/uL (4.2-5.4); White Blood Count 18.31 K/uL (4.8-10.8)
[2019-02-19 06:22] LABS: INR 2.5 (0.9-1.1); Prothrombin Time 24.2 Seconds (9.0-12.0)
[2019-02-19 07:03] LABS: BUN Creatinine Ratio 10.2 (10-20); Calcium 9.3 mg/dl (8.5-10.1); Creatinine Clr Calc Pharmacy 10.6 ml/min; Est GFR (African American) 8.4; Est GFR (Non-African American) 7.3; Potassium 5.2 mmol/L (3.5-5.1)
[2019-02-19] MEDS: CALCIUM ACETATE 667 MG CAP PO SCH ×3 (07:48→17:34)
[2019-02-19] MEDS: CYANOCOBALAMIN 500 MCG TABLET (VITAMIN B-12) PO SCH (07:48)
[2019-02-19] MEDS: MAGNESIUM OXIDE 400 MG TAB PO SCH (07:49)
[2019-02-19] MEDS: MIDODRINE HCL 10 MG TAB PO SCH ×2 (07:49→20:43)
[2019-02-19] MEDS: CHOLECALCIFEROL 1,000 UNITS TAB PO SCH (07:49)
[2019-02-19] MEDS: ASCORBIC ACID 500 MG TAB PO SCH (07:49)
[2019-02-19] MEDS: PANTOprazole 40 MG TAB PO SCH (07:49)
[2019-02-19] MEDS: NYSTATIN POWDER 15GM BTL EXT SCH ×2 (07:49→20:43)
[2019-02-19] MEDS: GABAPENTIN 300 MG CAP PO SCH ×2 (07:49→14:31)
[2019-02-19] MEDS: BUDESONIDE/FORMOTEROL FUMARATE 160/4.5 60 PUFFS/INHALER INH SCH ×2 (07:49→20:43)
[2019-02-19] MEDS: NEPHROCAPS PO SCH (07:49)
[2019-02-19] MEDS ORDERED: HEPARIN SOD (PORCINE) 1000 UNIT/ML 10 ML VIAL IV ONE (08:14)
[2019-02-19] MEDS ORDERED: SODIUM CHLORIDE 0.9% 1000ML 1,000 ML IV PRN (08:14)
[2019-02-19] MEDS ORDERED: MIDODRINE HCL 10 MG TAB PO SCH (09:00)
[2019-02-19] MEDS: INSULIN ASPART 100 UNITS/ML 3 ML PEN SC SCH ×4 (14:06→20:54)
[2019-02-19] MEDS: HYDROCODONE/ACETAMOPHEN 5/325MG TAB PO PRN (14:32)
[2019-02-19] MEDS: DOCUSATE SODIUM 100 MG CAP PO SCH ×2 (14:32→20:54)
[2019-02-19] MEDS: cefTRIAXone SODIUM 2,000 MG in DEXTROSE 5% 50 ML IV SCH (14:32)
[2019-02-19] MEDS: WARFARIN SOD 2 MG TAB PO SCH (17:34)
--- NOTE | 2019-02-19 17:58 | Hospitalist Progress Note ---
Date of Service February 19, 2019 Assessment & Plan (1) Aspiration pneumonia: continuing with ceftriaxone, clinically improved. Expectorating mucous. Encouraged ambulation. (2) Chronic respiratory failure with hypoxia: in setting of COPD and chronic RHF; reports using 4L: home oxygen 07/04 (3) DM type 2 (diabetes mellitus, type 2): Lantus stopped last night, ISS continues with blood sugars at goal. (4) Depression: stable, cont sertraline (5) ESRD (end stage renal disease) on dialysis: cont inpatient HD per Nephro. Midodrine ordered with extra dosing on HD days. (6) RHF (right heart failure): chronic, compensated (7) Atrial fibrillation: controlled on Toprol. Cont coumadin. Daily INR (8) DVT prophylaxis: warfarin Full Code Dispo-likely hospitalized for another few days. Plan to return to [facility] at discharge. Tricia King DO [facility] Hospitalist Subjective exhausted after HD today reports that her breathing is about the same nurse states there is some congestion that appears to be breaking up that she is expectorating. denies any pain tolerating PO encouraged to get out of bed as often as possible. Review of Systems Review of Systems: All systems reviewed & are unremarkable except as noted in HPI & below Physical Exam Physical Exam: CONSTITUTIONAL: obese, fatigued, vitals as above, deconditioned EYES: normal conjunctivae, no scleral icterus ENT: MMM RESPIRATORY: rhonchi on the right lower lung, no crackles, rales or wheezes, normal respiratory effort on oxymask CARDIOVASCULAR: regular rate and rhythm, S1 and 2 heard without murmurs, gallops or rubs, no JVD, no peripheral edema GASTROINTESTINAL: normal bowel sounds, soft, nontender, nondistended MUSCULOSKELETAL: generalized weakness, head is normocephalic and atraumatic SKIN: warm and dry NEUROLOGIC: CN 2-12 grossly intact, no gross focal deficits. PSYCHIATRIC: alert cooperative and oriented to person, place and time Results & Data Vital Signs (Past 12 Hours) Vital Signs Temp Pulse Pulse Pulse Pulse Resp BP 02/19/19 16:00 88 02/19/19 15:47 36.3 C L 86 18 02/19/19 14:12 82 20 02/19/19 13:40 85 123/37 L 02/19/19 13:20 79 118/42 L 02/19/19 13:00 71 120/24 L 02/19/19 12:40 80 120/37 L 02/19/19 12:20 82 88/33 L 02/19/19 12:00 87 100/41 L 02/19/19 11:40 80 117/30 L 02/19/19 11:20 75 113/18 L 02/19/19 11:00 82 151/24 H 02/19/19 10:40 84 102/24 L 02/19/19 10:20 85 114/45 L 02/19/19 10:00 75 115/55 L 02/19/19 09:40 85 102/49 L 02/19/19 09:23 81 86/34 L 02/19/19 09:18 36.5 C 72 02/19/19 08:00 83 02/19/19 07:20 92 H 18 02/19/19 07:19 90 18 02/19/19 07:12 36.5 C 88 20 BP Pulse Ox 02/19/19 16:00 02/19/19 15:47 134/73 91 02/19/19 14:12 96 02/19/19 13:40 02/19/19 13:20 02/19/19 13:00 02/19/19 12:40 02/19/19 12:20 02/19/19 12:00 02/19/19 11:40 02/19/19 11:20 02/19/19 11:00 02/19/19 10:40 02/19/19 10:20 02/19/19 10:00 02/19/19 09:40 02/19/19 09:23 02/19/19 09:18 02/19/19 08:00 02/19/19 07:20 98 02/19/19 07:19 98 02/19/19 07:12 92/62 L 97 Laboratory Results Short CBC 02/19/19 Range/Units 05:36 WBC 18.31 H (4.8-10.8) K/uL Hgb 10.1 L (12.0-16.0) g/dL Hct 32.1 L (37-47) % Plt Count 187 (130-400) K/uL BMP 02/19/19 05:36 Sodium 132 L Potassium 5.2 H Chloride 98 Carbon Dioxide 23 BUN 58 H D Creatinine 5.68 H* D Glucose 102 H Calcium 9.3 Medications Administered Current Inpatient Medications Hydrocodone Bitart/Acetaminophen ([place] 5/325) 1 tab PO Q6H PRN PRN Reason: Pain Stop: 03/03/19 05:04 Last Admin: 02/19/19 14:32 Dose: 1 tab Documented by: Albuterol (Ventolin Hfa) 2 puffs INH Q6H PRN PRN Reason: Shortness Of Breath Stop: 03/19/19 05:04 Ascorbic Acid (Vitamin C) 500 mg PO DAILY EDWIGE Stop: 03/19/19 08:59 Last Admin: 02/19/19 07:49 Dose: 500 mg Documented by: Atorvastatin Calcium (Lipitor) 40 mg PO HS [facility] Stop: 03/19/19 20:59 Last Admin: 02/18/19 20:21 Dose: 40 mg Documented by: Budesonide/Formoterol Fumarate (Symbicort 160mcg/4.5mcg) 2 puffs INH BID EDWIGE Stop: 03/19/19 08:59 Last Admin: 02/19/19 07:49 Dose: 2 puffs Documented by: Calcium Acetate (Phoslo) 2,668 mg PO TIDM EDWIGE Stop: 03/19/19 07:59 Last Admin: 02/19/19 17:34 Dose: 2,668 mg Documented by: Cyanocobalamin (Vitamin B-12) 1,000 mcg PO DAILY EDWIGE Stop: 03/19/19 08:59 Last Admin: 02/19/19 07:48 Dose: 1,000 mcg Documented by: Dextrose (Dextrose 50%) 25 - 50 ml IV UD PRN; Protocol PRN Reason: Hypoglycemia Protocol Stop: 03/19/19 17:13 Docusate Sodium (Colace) 100 mg PO BID EDWIGE Stop: 03/19/19 08:59 Last Admin: 02/19/19 14:32 Dose: 100 mg Documented by: Gabapentin (Neurontin) 300 mg PO MoWeFrSa EDWIGE Stop: 03/19/19 13:59 Last Admin: 02/19/19 14:31 Dose: 300 mg Documented by: Gabapentin (Neurontin) 300 mg PO DAILY EDWIGE Stop: 03/19/19 08:59 Last Admin: 02/19/19 07:49 Dose: 300 mg Documented by: Glucagon (Glucagen) 1 mg SQ UD PRN; Protocol PRN Reason: Hypoglycemia Protocol Stop: 03/19/19 17:13 Glucose (Dex4 Glucose) 4 - 8 tabs PO UD PRN; Protocol PRN Reason: Hypoglycemia Protocol Stop: 03/19/19 17:13 Glucose (Glucose 40%) 15 - 30 gm PO UD PRN; Protocol PRN Reason: Hypoglycemia Protocol Stop: 03/19/19 17:13 Ceftriaxone Sodium 2,000 mg/ (Dextrose) 70 mls @ 140 mls/hr IV Q24H EDWIGE Stop: 02/24/19 13:59 Last Infusion: 02/19/19 15:55 Dose: Infused Documented by: Insulin Aspart (Novolog Flexpen) 0 units SC ACHS EDWIGE Stop: 03/19/19 20:59 Last Admin: 02/19/19 14:06 Dose: Not Given Documented by: Ipratropium [place] (Atrovent 0.02% 0.5mg/2.5ml) 0.5 mg INH Q6R EDWIGE Stop: 03/19/19 07:59 Last Admin: 02/19/19 14:12 Dose: 0.5 mg Documented by: Levalbuterol HCl (Xopenex 1.25mg/0.5ml Neb) 1.25 mg INH Q6R EDWIGE Stop: 03/19/19 07:59 Last Admin: 02/19/19 14:12 Dose: 1.25 mg Documented by: Levothyroxine Sodium (Synthroid) 125 mcg PO DAILYBB EDWIGE Stop: 03/19/19 06:29 Last Admin: 02/19/19 05:51 Dose: 125 mcg Documented by: Lorazepam (Ativan) 0.5 mg PO UD PRN PRN Reason: Anxiety Stop: 03/19/19 05:04 Magnesium Oxide (Mag-Ox) 400 mg PO DAILY EDWIGE Stop: 03/19/19 08:59 Last Admin: 02/19/19 07:49 Dose: 400 mg Documented by: Metoprolol Succinate (Toprol Xl) 12.5 mg PO DAILY EDWIGE Stop: 03/21/19 00:29 Last Admin: 02/19/19 01:05 Dose: 12.5 mg Documented by: Midodrine (Proamatine) 5 mg PO MoWeFrSa@2100 [facility] Stop: 03/19/19 20:59 Last Admin: 02/17/19 22:56 Dose: 5 mg Documented by: Midodrine (Proamatine) 10 mg PO MoWeFrSa@0900 [facility] Stop: 03/21/19 08:59 Last Admin: 02/19/19 07:49 Dose: 10 mg Documented by: Midodrine (Proamatine) 5 mg PO SuTuTh@0900,2100 [facility] Stop: 03/20/19 02:29 Last Admin: 02/18/19 20:21 Dose: 5 mg Documented by: Miscellaneous (Order Awaiting Action) 1 ea N/A QS EDWIGE Stop: 03/19/19 07:59 Last Admin: 02/19/19 17:53 Dose: Not Given Documented by: Miscellaneous (Carbohydrates For Hypoglycemia) 15 - 30 gm PO UD PRN PRN Reason: Hypoglycemia Treatment Stop: 03/19/19 17:13 Nystatin (Mycostatin) 1 appln EXT BID [facility] Stop: 03/19/19 08:59 Last Admin: 02/19/19 07:49 Dose: 1 appln Documented by: Pantoprazole Sodium (Protonix) 40 mg PO QAM EDWIGE Stop: 03/19/19 08:59 Last Admin: 02/19/19 07:49 Dose: 40 mg Documented by: Sertraline HCl (Zoloft) 150 mg PO PM [facility]WIG[facility] Stop: 03/19/19 20:59 Last Admin: 02/18/19 20:21 Dose: 150 mg Documented by: Vitamin B Complex/Folic Acid (Nephrocaps) 1 cap PO DAILY EDWIGE Stop: 03/19/19 08:59 Last Admin: 02/19/19 07:49 Dose: 1 cap Documented by: Vitamin D (Vitamin D3) 1,000 units PO DAILY EDWIGE Stop: 03/19/19 08:59 Last Admin: 02/19/19 07:49 Dose: 1,000 units Documented by: Warfarin Sodium (Coumadin) 2 mg PO DAILY@1600 [facility] Stop: 03/19/19 15:59 Last Admin: 02/19/19 17:34 Dose: 2 mg Documented by: (1) DM type 2 (diabetes mellitus, type 2) Diabetes mellitus complication detail: with polyneuropathy Diabetes mellitus complication status: with neurologic complications Diabetes mellitus prison insulin use: with prison use Qualified Code(s): E11.42 - Type 2 diabetes mellitus with diabetic polyneuropathy; Z79.4 - intermodal dispatcher (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 (2) Depression Depression Type: unspecified Qualified Code(s): F32.9 - Major depressive disorder, single episode, unspecified (3) Aspiration pneumonia Aspiration pneumonia type: unspecified Laterality: unspecified laterality Lung location: unspecified part of lung Qualified Code(s): J69.0 - Pneumonitis due to inhalation of food and vomit (4) RHF (right heart failure) Heart failure chronicity: unspecified Qualified Code(s): I50.810 - Right heart failure, unspecified
--- NOTE | 2019-02-19 19:45 | Nephrology Progress Note ---
Date of Service February 19, 2019 Assessment & Plan (1) ESRD (end stage renal disease) on dialysis: Patient with ESRD on dialysis Friday. She was dialyzed today and tolerated HD well with net UF 3 litres. Next HD will be tomorrow and target UF 3 litres. (2) Acute and chronic respiratory failure with hypoxia: Likely multifactorial including volume overload and pneumonia. She is receiving IV antibiotics per primary team. Currently on BIPAP. (3) Hypotension: Due to dialysis and CHF. She is getting Midodrin. She required Levophed during dialysis while in ICU. Subjective Patient was seen and examined while on dialysis during morning rounds. She was more SOB last night and now on BIPAP. Has mild leg swelling. She tolerated HD well. Review of Systems Review of Systems: All systems reviewed & are unremarkable except as noted in HPI & below Physical Exam Physical Exam: General exam: Appears comfortable with BIPAP, no acute distress HEENT: Pupils are equal and reactive to light Neck: No JVD, neck is supple trachea is midline Respiratory system: Clear breath sounds bilaterally. Gastrointestinal: Abdomen is soft, non distended, non tender, bowel sounds are present CVS: Regular rate and rhythm. No murmurs, rubs or gallops Musculoskeletal: No joint or muscle tenderness Extremities: Non tender, 1+ edema, peripheral pulses are present Neuro: Oriented, no tremors, no focal neurological deficits Skin: No rashes Results & Data Vital Signs (Past 12 Hours) Vital Signs Temp Pulse Pulse Pulse Pulse Resp BP 02/19/19 19:17 95 H 18 02/19/19 19:15 95 H 18 02/19/19 16:00 88 02/19/19 15:47 36.3 C L 86 18 02/19/19 14:12 82 20 02/19/19 13:56 36.5 C 108 H 76 02/19/19 13:40 85 123/37 L 02/19/19 13:20 79 118/42 L 02/19/19 13:00 71 120/24 L 02/19/19 12:40 80 120/37 L 02/19/19 12:20 82 88/33 L 02/19/19 12:00 87 100/41 L 02/19/19 11:40 80 117/30 L 02/19/19 11:20 75 113/18 L 02/19/19 11:00 82 151/24 H 02/19/19 10:40 84 102/24 L 02/19/19 10:20 85 114/45 L 02/19/19 10:00 75 115/55 L 02/19/19 09:40 85 102/49 L 02/19/19 09:23 81 86/34 L 02/19/19 09:18 36.5 C 72 02/19/19 08:00 83 BP BP Pulse Ox 02/19/19 19:17 95 02/19/19 19:15 94 02/19/19 16:00 02/19/19 15:47 134/73 91 02/19/19 14:12 96 02/19/19 13:56 130/47 L 02/19/19 13:40 02/19/19 13:20 02/19/19 13:00 02/19/19 12:40 02/19/19 12:20 02/19/19 12:00 02/19/19 11:40 02/19/19 11:20 02/19/19 11:00 02/19/19 10:40 02/19/19 10:20 02/19/19 10:00 02/19/19 09:40 02/19/19 09:23 02/19/19 09:18 02/19/19 08:00 Laboratory Results Laboratory Results - last 24 hr 02/18/19 02/19/19 02/19/19 20:13 00:34 05:36 WBC RBC Hgb Hct MCV MCH MCHC RDW Std Deviation RDW Coeff of Yogi Plt Count MPV Absolute Nucleated RBC Nucleated RBC % (auto) PT 24.2 H INR 2.5 H Sodium Potassium Chloride Carbon Dioxide Anion Gap BUN Creatinine Est Cr Clr Drug Dosing Est GFR ( Amer) Est GFR (Non-Af Amer) BUN/Creatinine Ratio Glucose POC Glucose 93 90 Calcium 02/19/19 02/19/19 02/19/19 05:36 05:36 07:32 WBC 18.31 H RBC 3.46 L Hgb 10.1 L Hct 32.1 L MCV 92.8 MCH 29.2 MCHC 31.5 L RDW Std Deviation 68.8 H RDW Coeff of Yogi 20.8 H Plt Count 187 MPV 10.0 Absolute Nucleated RBC 0.04 H Nucleated RBC % (auto) 0.2 PT INR Sodium 132 L Potassium 5.2 H Chloride 98 Carbon Dioxide 23 Anion Gap 11.0 BUN 58 H D Creatinine 5.68 H* D Est Cr Clr Drug Dosing 10.6 Est GFR ( Amer) 8.4 Est GFR (Non-Af Amer) 7.3 BUN/Creatinine Ratio 10.2 Glucose 102 H POC Glucose 106 H Calcium 9.3 02/19/19 02/19/19 11:37 16:22 WBC RBC Hgb Hct MCV MCH MCHC RDW Std Deviation RDW Coeff of Yogi Plt Count MPV Absolute Nucleated RBC Nucleated RBC % (auto) PT INR Sodium Potassium Chloride Carbon Dioxide Anion Gap BUN Creatinine Est Cr Clr Drug Dosing Est GFR ( Amer) Est GFR (Non-Af Amer) BUN/Creatinine Ratio Glucose POC Glucose 140 H 116 H Calcium (1) Hypotension Hypotension type: unspecified hypotension type Qualified Code(s): I95.9 - Hypotension, unspecified
[2019-02-19] MEDS: ATORVASTATIN 40 MG TAB PO SCH (20:43)
[2019-02-19] MEDS: SERTRALINE HCL 50 MG TABLET PO SCH (20:43)
[2019-02-20] MEDS: LEVALBUTEROL 1.25MG/0.5ML NEB INH SCH ×4 (02:15→19:12)
[2019-02-20] MEDS: IPRATROPIUM BROMIDE NEB SOLN 0.02% 2.5 ML VIAL INH SCH ×4 (02:15→19:12)
[2019-02-20] MEDS: LEVOTHYROXINE SODIUM 125 MCG TABLET PO SCH (05:54)
[2019-02-20 06:55] LABS: Hematocrit (blood only) 36.5 % (37-47); Hemoglobin 11.4 g/dL (12.0-16.0); Mean Corpuscular Hgb Conc 31.2 g/dL (32-36); Mean Corpuscular Volume 93.1 fL (80-100); Mean Platelet Volume 9.7 fL (7.4-10.4); Nucleated RBC % (auto) 0.6 %; Platelet Count 209 K/uL (130-400); RDW Standard Deviation 71.2 fL (36.4-46.3); Red Blood Count 3.92 M/uL (4.2-5.4); White Blood Count 17.17 K/uL (4.8-10.8)
[2019-02-20 06:58] LABS: Prothrombin Time 28.1 Seconds (9.0-12.0)
[2019-02-20 07:21] LABS: BUN Creatinine Ratio 8.2 (10-20); Calcium 9.8 mg/dl (8.5-10.1); Est GFR (African American) 12.2; Est GFR (Non-African American) 10.5; Potassium 4.9 mmol/L (3.5-5.1)
[2019-02-20] MEDS ORDERED: SODIUM CHLORIDE 0.9% 1000ML 1,000 ML IV PRN (08:29)
[2019-02-20 08:34] LABS: Hepatitis B Surface Antibody Non-Immune
[2019-02-20 08:45] LABS: Hepatitis B Surface Antigen Neg (Neg)
[2019-02-20] MEDS: CALCIUM ACETATE 667 MG CAP PO SCH ×3 (08:52→17:07)
[2019-02-20] MEDS: METOPROLOL SUCC 25MG EXT REL TAB PO SCH (08:53)
[2019-02-20] MEDS: CHOLECALCIFEROL 1,000 UNITS TAB PO SCH (08:53)
[2019-02-20] MEDS: CYANOCOBALAMIN 500 MCG TABLET (VITAMIN B-12) PO SCH (08:54)
[2019-02-20] MEDS: PANTOprazole 40 MG TAB PO SCH (08:55)
[2019-02-20] MEDS: BUDESONIDE/FORMOTEROL FUMARATE 160/4.5 60 PUFFS/INHALER INH SCH ×2 (08:56→20:37)
[2019-02-20] MEDS: GABAPENTIN 300 MG CAP PO SCH ×2 (08:56→13:56)
[2019-02-20] MEDS: MAGNESIUM OXIDE 400 MG TAB PO SCH (08:57)
[2019-02-20] MEDS: NEPHROCAPS PO SCH (08:58)
[2019-02-20] MEDS: NYSTATIN POWDER 15GM BTL EXT SCH ×2 (08:58→20:38)
[2019-02-20] MEDS: ASCORBIC ACID 500 MG TAB PO SCH (08:58)
[2019-02-20] MEDS: MIDODRINE HCL 10 MG TAB PO SCH ×2 (08:58→20:37)
[2019-02-20] MEDS: INSULIN ASPART 100 UNITS/ML 3 ML PEN SC SCH ×4 (08:59→21:57)
[2019-02-20] MEDS ORDERED: HEPARIN SOD (PORCINE) 1000 UNIT/ML 10 ML VIAL IV ONE (09:00)
[2019-02-20] MEDS: DOCUSATE SODIUM 100 MG CAP PO SCH ×2 (09:00→21:35)
[2019-02-20] MEDS ORDERED: HEPARIN IV BOLUS 2,000 UNITS in SYRINGE 0 ML IV ONE (09:44)
[2019-02-20] MEDS: HYDROCODONE/ACETAMOPHEN 5/325MG TAB PO PRN ×2 (11:33→20:53)
--- NOTE | 2019-02-20 13:00 | Hospitalist Progress Note ---
Date of Service February 20, 2019 Assessment & Plan (1) Acute and chronic respiratory failure: Continuous BIPAP to recruit alveoli, in setting of COPD and chronic RHF; reports using 4L: home oxygen 24/. ICU and night staff notified in case intubation is necessary overnight. (2) Aspiration pneumonia: continuing with ceftriaxone, clinically improved. Expectorating mucous. Encouraged ambulation. (3) DM type 2 (diabetes mellitus, type 2): Lantus stopped, ISS continues with blood sugars at goal. (4) Depression: stable, cont sertraline (5) ESRD (end stage renal disease) on dialysis: cont inpatient HD per Nephro. Midodrine ordered with extra dosing on HD days. (6) RHF (right heart failure): chronic, compensated (7) Atrial fibrillation: controlled on Toprol. Cont coumadin. Daily INR (8) DVT prophylaxis: warfarin Full Code Dispo-likely hospitalized for another few days. Plan to return to [facility] at discharge. Tricia King DO [facility] Hospitalist Subjective HD today with 2L off-very tired post HD. Required BIPAP all morning. Unable to tolerate NC any longer. Pressure dropped to 76 systolic. Mentating well and denies any SOB, chest pain or other issues at this time. Review of Systems Review of Systems: All systems reviewed & are unremarkable except as noted in HPI & below Physical Exam Physical Exam: CONSTITUTIONAL: obese, fatigued, vitals as above, deconditioned EYES: normal conjunctivae, no scleral icterus ENT: MMM RESPIRATORY: rhonchi on the right lower lung, no crackles, rales or wheezes, normal respiratory effort on BIPAP CARDIOVASCULAR: regular rate and rhythm, S1 and 2 heard without murmurs, gallops or rubs, no JVD, no peripheral edema GASTROINTESTINAL: normal bowel sounds, soft, nontender, nondistended MUSCULOSKELETAL: generalized weakness, head is normocephalic and atraumatic SKIN: warm and dry NEUROLOGIC: CN 2-12 grossly intact, no gross focal deficits. PSYCHIATRIC: fatigued, frequently falling asleep. Results & Data Vital Signs (Past 12 Hours) Vital Signs Temp Pulse Pulse Pulse Resp BP BP 02/20/19 11:20 100 H 80/36 L 02/20/19 11:00 98 H 117/26 L 02/20/19 10:40 88 116/56 L 02/20/19 10:20 93 H 110/45 L 02/20/19 10:00 104 H 100/49 L 02/20/19 09:40 103 H 105/43 L 02/20/19 09:20 103 H 116/49 L 02/20/19 08:58 37.0 C 105 H 02/20/19 07:39 111 H 25 H 02/20/19 06:44 36.8 C 98 H 19 119/65 02/20/19 03:56 36.4 C L 91 H 20 106/54 L 02/20/19 02:17 99 H 16 02/20/19 02:15 99 H 16 Pulse Ox 02/20/19 11:20 02/20/19 11:00 02/20/19 10:40 02/20/19 10:20 02/20/19 10:00 02/20/19 09:40 02/20/19 09:20 02/20/19 08:58 02/20/19 07:39 93 02/20/19 06:44 94 02/20/19 03:56 92 02/20/19 02:17 94 02/20/19 02:15 94 Laboratory Results Short CBC 02/20/19 Range/Units 06:24 WBC 17.17 H (4.8-10.8) K/uL Hgb 11.4 L (12.0-16.0) g/dL Hct 36.5 L (37-47) % Plt Count 209 (130-400) K/uL BMP 02/20/19 06:24 Sodium 131 L Potassium 4.9 Chloride 94 L Carbon Dioxide 24 BUN 34 H Creatinine 4.19 H D Glucose 113 H Calcium 9.8 Medications Administered Current Inpatient Medications Hydrocodone Bitart/Acetaminophen ([place] 5/325) 1 tab PO Q6H PRN PRN Reason: Pain Stop: 03/03/19 05:04 Last Admin: 02/20/19 11:33 Dose: 1 tab Documented by: Albuterol (Ventolin Hfa) 2 puffs INH Q6H PRN PRN Reason: Shortness Of Breath Stop: 03/19/19 05:04 Ascorbic Acid (Vitamin C) 500 mg PO DAILY EDWIGE Stop: 03/19/19 08:59 Last Admin: 02/20/19 08:58 Dose: 500 mg Documented by: Atorvastatin Calcium (Lipitor) 40 mg PO HS EDWIGE Stop: 03/19/19 20:59 Last Admin: 02/19/19 20:43 Dose: 40 mg Documented by: Budesonide/Formoterol Fumarate (Symbicort 160mcg/4.5mcg) 2 puffs INH BID EDWIGE Stop: 03/19/19 08:59 Last Admin: 02/20/19 08:56 Dose: 2 puffs Documented by: Calcium Acetate (Phoslo) 2,668 mg PO TIDM EDWIGE Stop: 03/19/19 07:59 Last Admin: 02/20/19 11:36 Dose: 2,668 mg Documented by: Cyanocobalamin (Vitamin B-12) 1,000 mcg PO DAILY EDWIGE Stop: 03/19/19 08:59 Last Admin: 02/20/19 08:54 Dose: 1,000 mcg Documented by: Dextrose (Dextrose 50%) 25 - 50 ml IV UD PRN; Protocol PRN Reason: Hypoglycemia Protocol Stop: 03/19/19 17:13 Docusate Sodium (Colace) 100 mg PO BID [facility] Stop: 03/19/19 08:59 Last Admin: 02/20/19 09:00 Dose: 100 mg Documented by: Gabapentin (Neurontin) 300 mg PO MoWeFrSa [facility] Stop: 03/19/19 13:59 Last Admin: 02/20/19 13:56 Dose: 300 mg Documented by: Gabapentin (Neurontin) 300 mg PO DAILY EDWIGE Stop: 03/19/19 08:59 Last Admin: 02/20/19 08:56 Dose: 300 mg Documented by: Glucagon (Glucagen) 1 mg SQ UD PRN; Protocol PRN Reason: Hypoglycemia Protocol Stop: 03/19/19 17:13 Glucose (Dex4 Glucose) 4 - 8 tabs PO UD PRN; Protocol PRN Reason: Hypoglycemia Protocol Stop: 03/19/19 17:13 Glucose (Glucose 40%) 15 - 30 gm PO UD PRN; Protocol PRN Reason: Hypoglycemia Protocol Stop: 03/19/19 17:13 Ceftriaxone Sodium 2,000 mg/ (Dextrose) 70 mls @ 140 mls/hr IV Q24H EDWIGE Stop: 02/24/19 13:59 Last Admin: 02/20/19 13:56 Dose: 140 mls/hr Documented by: Insulin Aspart (Novolog Flexpen) 0 units SC ACHS EDWIGE Stop: 03/19/19 20:59 Last Admin: 02/20/19 13:40 Dose: Not Given Documented by: Ipratropium Dillon (Atrovent 0.02% 0.5mg/2.5ml) 0.5 mg INH Q6R [facility] Stop: 03/19/19 07:59 Last Admin: 02/20/19 13:08 Dose: 0.5 mg Documented by: Levalbuterol HCl (Xopenex 1.25mg/0.5ml Neb) 1.25 mg INH Q6R [facility] Stop: 03/19/19 07:59 Last Admin: 02/20/19 13:08 Dose: 1.25 mg Documented by: Levothyroxine Sodium (Synthroid) 125 mcg PO DAILYBB [facility] Stop: 03/19/19 06:29 Last Admin: 02/20/19 05:54 Dose: 125 mcg Documented by: Lorazepam (Ativan) 0.5 mg PO UD PRN PRN Reason: Anxiety Stop: 03/19/19 05:04 Magnesium Oxide (Mag-Ox) 400 mg PO DAILY [facility] Stop: 03/19/19 08:59 Last Admin: 02/20/19 08:57 Dose: 400 mg Documented by: Metoprolol Succinate (Toprol Xl) 12.5 mg PO DAILY [facility] Stop: 03/21/19 00:29 Last Admin: 02/20/19 08:53 Dose: 12.5 mg Documented by: Midodrine (Proamatine) 5 mg PO MoWeFrSa@2100 [facility] Stop: 03/19/19 20:59 Last Admin: 02/19/19 20:43 Dose: 5 mg Documented by: Midodrine (Proamatine) 10 mg PO MoWeFrSa@0900 [facility] Stop: 03/21/19 08:59 Last Admin: 02/20/19 08:58 Dose: 10 mg Documented by: Midodrine (Proamatine) 5 mg PO SuTuTh@0900,2100 [facility] Stop: 03/20/19 02:29 Last Admin: 02/18/19 20:21 Dose: 5 mg Documented by: Miscellaneous (Order Awaiting Action) 1 ea N/A QS [facility] Stop: 03/19/19 07:59 Last Admin: 02/19/19 23:21 Dose: Not Given Documented by: Miscellaneous (Carbohydrates For Hypoglycemia) 15 - 30 gm PO UD PRN PRN Reason: Hypoglycemia Treatment Stop: 03/19/19 17:13 Nystatin (Mycostatin) 1 appln EXT BID EDWIGE Stop: 03/19/19 08:59 Last Admin: 02/20/19 08:58 Dose: 1 appln Documented by: Pantoprazole Sodium (Protonix) 40 mg PO QAM EDWIGE Stop: 03/19/19 08:59 Last Admin: 02/20/19 08:55 Dose: 40 mg Documented by: Sertraline HCl (Zoloft) 150 mg PO PM EDWIGE Stop: 03/19/19 20:59 Last Admin: 02/19/19 20:43 Dose: 150 mg Documented by: Vitamin B Complex/Folic Acid (Nephrocaps) 1 cap PO DAILY EDWIGE Stop: 03/19/19 08:59 Last Admin: 02/20/19 08:58 Dose: 1 cap Documented by: Vitamin D (Vitamin D3) 1,000 units PO DAILY EDWIG[facility] Stop: 03/19/19 08:59 Last Admin: 02/20/19 08:53 Dose: 1,000 units Documented by: Warfarin Sodium (Coumadin) 2 mg PO DAILY@1600 [facility] Stop: 03/19/19 15:59 Last Admin: 02/19/19 17:34 Dose: 2 mg Documented by: (1) DM type 2 (diabetes mellitus, type 2) Diabetes mellitus complication detail: with polyneuropathy Diabetes mellitus complication status: with neurologic complications Diabetes mellitus termite exterminator helper insulin use: with termite exterminator helper use Qualified Code(s): E11.42 - Type 2 diabetes mellitus with diabetic polyneuropathy; Z79.4 - long term (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 (2) Depression Depression Type: unspecified Qualified Code(s): F32.9 - Major depressive disorder, single episode, unspecified (3) Aspiration pneumonia Aspiration pneumonia type: unspecified Laterality: unspecified laterality Lung location: unspecified part of lung Qualified Code(s): J69.0 - Pneumonitis due to inhalation of food and vomit (4) RHF (right heart failure) Heart failure chronicity: unspecified Qualified Code(s): I50.810 - Right heart failure, unspecified
--- NOTE | 2019-02-20 13:11 | XRay Report ---
XR chest 1V portable CLINICAL HISTORY: 63 years-old Female presenting with worsening hypoxia. TECHNIQUE: Portable upright AP view of the chest was obtained. COMPARISON: 02/17/2019. FINDINGS: The patient is BANGLADESHI rotated. Tunneled left internal jugular dialysis catheter terminates in the lower SVC. Cardiac silhouette moderately enlarged. Right basilar opacity similar to prior. No large effusio n or pneumothorax. Osseous structures normal. IMPRESSION: 1. Right basilar opacity likely atelectasis or scarring. Aeration is unchanged from prior exam. 2. Cardiomegaly. No whitney evidence of volume overload. Electronically signed by: Narendra Jones M.D. 02/20/2019 1:10 PM
[2019-02-20 13:55] LABS: HCO3 ABG 24 mmol/L (19-24); Oxygen Saturation ABG 95.7 % (90-95); PCO2 ABG 47 mmHg (35-46); PO2 ABG 85 mm/Hg (80-95); pH ABG 7.33 (7.35-7.45)
[2019-02-20] MEDS: cefTRIAXone SODIUM 2,000 MG in DEXTROSE 5% 50 ML IV SCH (13:56)
[2019-02-20 14:22] LABS: Allen Test Pos (Pos)
[2019-02-20] MEDS: WARFARIN SOD 2 MG TAB PO SCH (15:16)
[2019-02-20] MEDS ORDERED: SODIUM CHLORIDE 0.9% 1000ML 1,000 ML IV SCH (17:45)
[2019-02-20] MEDS ORDERED: methylPREDNISolone 20 MG in SYRINGE 0 ML IV ONE (19:45)
[2019-02-20] MEDS: ATORVASTATIN 40 MG TAB PO SCH (20:33)
[2019-02-20] MEDS: SERTRALINE HCL 50 MG TABLET PO SCH (20:34)
[2019-02-20] MEDS ORDERED: AMPICILLIN/SULBACTAM SOD 3,000 MG in 0.9 % SODIUM CHLORIDE 100 ML IV STA (21:05)
--- NOTE | 2019-02-20 22:20 | Consultation Report ---
DATE OF CONSULTATION: 02/20/2019 PULMONARY CONSULTATION TIME: 5:30 p.m. REPORT OF CONSULTATION: The patient is seen in room 243. She is a 63-year-old female with numerous medical problems. Consultation is being requested because of severe hypoxia. The patient has a history of COPD as well as obstructive sleep apnea. She is on either CPAP or BiPAP at home. She has been very obese, although she has lost a lot of weight. She is known to have severe pulmonary hypertension by history. She has had a series of admissions this spring. She was admitted from 12/18/2018 until 12/30/2018. During that hospital stay, she had a Perm-A-Cath change and a subsequent removal and reinsertion. She was admitted from 01/11/2019 until 01/20/19 and it was felt that she had aspirated. She developed increasing shortness of breath and had a consolidation at the right base. She was hospitalized again from 02/04/2019 until 02/11/2019 again with what was thought to be aspiration. She was admitted at this time on 02/17/2019. Reportedly, she had just gone to [facility] earlier in the day and developed severe hypoxia. Reportedly, she was not improving her oxygenation on a 10 L nonrebreather mask. The patient was hot and sweaty. Apparently her baseline oxygen has been 4 liters nasal cannula at home. The patient is on chronic Coumadin therapy, presumably because of her history of atrial fibrillation. She has chronic renal failure and is on dialysis. She is currently on a BiPAP and it is difficult to obtain information from her. She had dialysis today and she has been quite hypotensive with systolic blood pressure in the mid 70s at present. The patient does have a cough. It is not clear if she brings up any phlegm. Again, it is difficult communicating with her with the BiPAP in place. She denies having chest pain. She has been very weak. The patient was hypotensive on admission and she was admitted transiently to ICU and then subsequently transferred to the medical floors. For the past 2 or 3 days, she has had difficulty maintaining her oxygen status without wearing BiPAP. She has had what appears to be atelectasis and some volume loss in the right lower chest which has been for at least a month or more seemingly. She did undergo a video swallow study on 01/19/2019. This showed intermittent aspiration with a variety of food substances. No cough reflex was noted. PAST SURGICAL HISTORY: 1. Tracheostomy - not clear to me exactly why that was done in the past. 2. Hernia repair. 3. Cholecystectomy. 4. Perm-A-Cath insertion. PAST MEDICAL HISTORY: 1. COPD. 2. Sleep apnea. 3. Obesity. 4. Pulmonary hypertension. 5. AFib. 6. Hypertension. 7. Diabetes. 8. Hyperlipidemia. 9. Anemia. 10. Right heart failure. 11. End-stage renal disease. 12. Hypothyroidism. 13. Gastroparesis. 14. Prior DVT. 15. Depression. SOCIAL HISTORY: Tobacco, none since about 2009. Previously 2 packs per day for 40 years. ETOH - none. ALLERGIES: LISTED ALLERGIES TO CELEBREX, CODEINE, SULFA, AND NEOSPORIN. FAMILY HISTORY: Unknown. PHYSICAL EXAMINATION: GENERAL: The patient is a 63-year-old female who looks significantly older than her chronologic age. She was arousable. She appeared weak. She was able to cooperate and follow commands. HEENT: BiPAP is in place. Thus I could not examine the nasal passage or oropharynx. Pupils were reactive. VITAL SIGNS: Temperature is 36.7. There have been no fevers recently. HEART: Blood pressure most recently 76/47. Heart rate 90 per minute. The rhythm is irregularly irregular and is consistent with atrial fibrillation. CHEST: Lung alvarado reveal rhonchi in the right anterior, lateral, and posterior chest. The patient denied feeling like she had secretions. Left side had much fewer adventitious sounds. Respiratory rate 20. Saturation 94% on BiPAP 16/8 with 40% FIO2. ABDOMEN: Obese but suggesting weight loss. There is a pannus in the lower abdomen on the left with a firm hardened density. The etiology of that is not known to me. There were scars from prior surgeries. Bowel sounds were decreased, but present. No tenderness to palpation was noted. EXTREMITIES: The patient has marked varicose veins which are hardened and extend all the way up to her pelvic area. There is discoloration of the lower extremities. No edema noted. IMAGING DATA: Chest x-ray done today again shows right base opacity likely representing atelectasis and is relatively unchanged compared with 02/17/2019. Ultrasound of the chest done on 02/17/2019 showed no evidence of pleural fluid which would rule out effusion as the cause for the density seen. There is a dual lumen catheter in place. The x-rays are mildly rotated. Abdominal CAT scan done on 02/04/2019 reported hyperdense material within the tracheobronchial tree at the right base suggesting aspiration. A chest x-ray done on 12/18/2018 showed improved aeration compared with what is now seen. LABORATORY DATA: White count today is 17.17. White count has been elevated on all CBCs done at least back as far as 02/06/2019. Hemoglobin 11.4. Platelets 209,000. INR today is 3.0. Blood gas done this afternoon showed pH 7.33, pCO2 of 47, pO2 of 85. It is unknown whether she had BiPAP on at that time or not; reportedly it was 40% oxygen, so I suspect so. On 02/17/2019, the pH was 7.21 with pCO2 of 50 and pO2 of 125. The electrolytes show sodium 131, potassium 4.9, chloride 94, bicarbonate 24. BUN is 34 with creatinine of 4.19. The patient did have an echo done on 12/19/2018. This showed ejection fraction higher than 70%. Estimated systolic pulmonary arterial pressure was 86. This is severely elevated. Dilated inferior vena cava with reduced collapsibility was noted. Right ventricle was severely dilated. IMPRESSION: 1. Respiratory failure - [id number] with hypoxia and hypercarbia. 2. Chronic obstructive pulmonary disease. 3. Right lower lobe atelectasis. 4. Severe pulmonary hypertension. 5. Obstructive sleep apnea. COMMENTS AND RECOMMENDATIONS: The patient is doing poorly. It is getting more and more difficult to oxygenate her. The patient is on ceftriaxone. I do not see a definite infection, however. She is on levalbuterol q. 6 hours. She is on ipratropium q. 6 hours. Obviously, the hypotension is an issue which may be in part related to dialysis earlier today. It would seem like pulmonary embolism would be low probability in light of the fact that she is on Coumadin therapy hand rounder. It is possible to have chronic pulmonary emboli. This certainly could increase the pulmonary hypertension significantly. Pulmonary function test results are suspect to have been done in the past. I am assuming she has had those done, but I do not know that with certainty. The patient does have rhonchi on the right side and there has been a persistent atelectasis and volume loss at the right lung base. The patient is still a full code, although with her multiple medical problems, it is difficult to say if that is the best course for her or not. If her oxygenation worsened or she could not get off BiPAP at all, the alternative might be hopefully short-term intubation, perhaps with bronchoscopy to aspirate the airway and visualize if there is any obstruction in the right lower lobe or not. This was discussed with Dr. King. Prognosis is certainly guarded. MTDD
[2019-02-21] MEDS: LEVALBUTEROL 1.25MG/0.5ML NEB INH SCH ×4 (01:48→19:18)
[2019-02-21] MEDS: IPRATROPIUM BROMIDE NEB SOLN 0.02% 2.5 ML VIAL INH SCH ×4 (01:48→19:17)
[2019-02-21] MEDS: LEVOTHYROXINE SODIUM 125 MCG TABLET PO SCH (06:03)
[2019-02-21 07:25] LABS: INR 4.4 (0.9-1.1); Prothrombin Time 40.2 Seconds (9.0-12.0)
[2019-02-21 07:40] LABS: BUN Creatinine Ratio 8.9 (10-20); Calcium 9.9 mg/dl (8.5-10.1); Creatinine Clr Calc Pharmacy 13.5 ml/min; Est GFR (Non-African American) 10.4; Potassium 5.3 mmol/L (3.5-5.1)
[2019-02-21] MEDS: CALCIUM ACETATE 667 MG CAP PO SCH ×3 (08:48→16:57)
[2019-02-21] MEDS: MAGNESIUM OXIDE 400 MG TAB PO SCH (08:49)
[2019-02-21] MEDS: CHOLECALCIFEROL 1,000 UNITS TAB PO SCH (08:50)
[2019-02-21] MEDS: CYANOCOBALAMIN 500 MCG TABLET (VITAMIN B-12) PO SCH (08:50)
[2019-02-21] MEDS: GABAPENTIN 300 MG CAP PO SCH (08:51)
[2019-02-21] MEDS: ASCORBIC ACID 500 MG TAB PO SCH (08:51)
[2019-02-21] MEDS: PANTOprazole 40 MG TAB PO SCH (08:51)
[2019-02-21] MEDS: METOPROLOL SUCC 25MG EXT REL TAB PO SCH (08:52)
[2019-02-21] MEDS: BUDESONIDE/FORMOTEROL FUMARATE 160/4.5 60 PUFFS/INHALER INH SCH ×2 (08:52→20:27)
[2019-02-21] MEDS: MIDODRINE HCL 2.5 MG TAB PO SCH ×2 (08:54→08:55)
[2019-02-21] MEDS: NEPHROCAPS PO SCH (08:55)
[2019-02-21] MEDS: INSULIN ASPART 100 UNITS/ML 3 ML PEN SC SCH ×4 (08:57→20:56)
[2019-02-21] MEDS ORDERED: AMPICILLIN/SULBACTAM CONSULT ACTIVE PRN (09:00)
[2019-02-21] MEDS: NYSTATIN POWDER 15GM BTL EXT SCH ×2 (09:06→20:27)
[2019-02-21] MEDS: DOCUSATE SODIUM 100 MG CAP PO SCH ×2 (12:12→20:27)
--- NOTE | 2019-02-21 13:17 | Hospitalist Progress Note ---
Date of Service February 21, 2019 Assessment & Plan (1) Acute and chronic respiratory failure: Continuous BIPAP to recruit alveoli, in setting of COPD and chronic RHF; reports using 4L: home oxygen 07/04. (2) Aspiration pneumonia: ceftriaxone switched to Unasyn, repeat CXR when more dependent on BIPAP not much changed with respect to the CXR. (3) DM type 2 (diabetes mellitus, type 2): Lantus stopped, ISS continues with blood sugars at goal. (4) Depression: stable, cont sertraline (5) ESRD (end stage renal disease) on dialysis: cont inpatient HD per Nephro. Midodrine ordered with extra dosing on HD days. (6) RHF (right heart failure): chronic, compensated (7) Atrial fibrillation: controlled on Toprol. Cont coumadin. Daily INR (8) Supratherapeutic INR: coumadin on hold. (9) DVT prophylaxis: warfarin Full Code Dispo-uncertain with plans to return to [facility] at discharge. I am trying to engage with the family regarding Palliative care measures at this point. Per the patient, she won't allow a Palliative consult as she states her family will be upset with this. I touched base with the daughter today and will get her thoughts after she is able to see and visit with her mother later today. Tricia King DO [facility] Hospitalist Subjective Patient is exhausted. It is difficult to ascertain review of systems as she is wearing BiPAP and it is difficult to understand what she is saying. Her voice is very weak from exhaustion. Physical Exam Physical Exam: CONSTITUTIONAL: obese, fatigued, vitals as above, deconditioned EYES: normal conjunctivae, no scleral icterus ENT: MMM RESPIRATORY: bilateral rhonchi at bases, no crackles, rales or wheezes, normal respiratory effort on BIPAP, limited exam as patient is so fatigued and cannot move around well, not following instructions well today and she is hooked to the BIPAP. CARDIOVASCULAR: regular rate and rhythm, S1 and 2 heard without murmurs, gallops or rubs, no JVD, no peripheral edema GASTROINTESTINAL: normal bowel sounds, soft, nontender, nondistended MUSCULOSKELETAL: generalized weakness, head is normocephalic and atraumatic SKIN: warm and dry NEUROLOGIC: CN 2-12 grossly intact, no gross focal deficits. PSYCHIATRIC: fatigued, frequently falling asleep. Results & Data Vital Signs (Past 12 Hours) Vital Signs Temp Pulse Pulse Resp BP Pulse Ox 02/21/19 11:28 87 12 109/72 95 02/21/19 07:04 82 20 95 02/21/19 07:03 83 20 95 02/21/19 06:50 36.3 C L 89 22 115/73 98 02/21/19 05:32 85 22 96 02/21/19 04:40 36.4 C L 88 16 104/69 97 02/21/19 01:49 92 H 15 95 02/21/19 01:48 97 H 15 95 Laboratory Results BMP 02/21/19 06:30 Sodium 131 L Potassium 5.3 H Chloride 95 L Carbon Dioxide 22 BUN 38 H Creatinine 4.24 H Glucose 185 H Calcium 9.9 Medications Administered Current Inpatient Medications Hydrocodone Bitart/Acetaminophen ([place] 5/325) 1 tab PO Q6H PRN PRN Reason: Pain Stop: 03/03/19 05:04 Last Admin: 02/20/19 20:53 Dose: 1 tab Documented by: Albuterol (Ventolin Hfa) 2 puffs INH Q6H PRN PRN Reason: Shortness Of Breath Stop: 03/19/19 05:04 Ascorbic Acid (Vitamin C) 500 mg PO DAILY EDWIGE Stop: 03/19/19 08:59 Last Admin: 02/21/19 08:51 Dose: 500 mg Documented by: Atorvastatin Calcium (Lipitor) 40 mg PO HS EDWIGE Stop: 03/19/19 20:59 Last Admin: 02/20/19 20:33 Dose: 40 mg Documented by: Budesonide/Formoterol Fumarate (Symbicort 160mcg/4.5mcg) 2 puffs INH BID EDWGIE Stop: 03/19/19 08:59 Last Admin: 02/21/19 08:52 Dose: 2 puffs Documented by: Calcium Acetate (Phoslo) 2,668 mg PO TIDM EDWIGE Stop: 03/19/19 07:59 Last Admin: 02/21/19 12:13 Dose: 2,668 mg Documented by: Cyanocobalamin (Vitamin B-12) 1,000 mcg PO DAILY EDWIGE Stop: 03/19/19 08:59 Last Admin: 02/21/19 08:50 Dose: 1,000 mcg Documented by: Dextrose (Dextrose 50%) 25 - 50 ml IV UD PRN; Protocol PRN Reason: Hypoglycemia Protocol Stop: 03/19/19 17:13 Docusate Sodium (Colace) 100 mg PO BID [facility] Stop: 03/19/19 08:59 Last Admin: 02/21/19 12:12 Dose: 100 mg Documented by: Gabapentin (Neurontin) 300 mg PO MoWeFrSa EDWIGE Stop: 03/19/19 13:59 Last Admin: 02/20/19 13:56 Dose: 300 mg Documented by: Gabapentin (Neurontin) 300 mg PO DAILY [facility] Stop: 03/19/19 08:59 Last Admin: 02/21/19 08:51 Dose: 300 mg Documented by: Glucagon (Glucagen) 1 mg SQ UD PRN; Protocol PRN Reason: Hypoglycemia Protocol Stop: 03/19/19 17:13 Glucose (Dex4 Glucose) 4 - 8 tabs PO UD PRN; Protocol PRN Reason: Hypoglycemia Protocol Stop: 03/19/19 17:13 Glucose (Glucose 40%) 15 - 30 gm PO UD PRN; Protocol PRN Reason: Hypoglycemia Protocol Stop: 03/19/19 17:13 Ampicillin Sodium/Sulbactam Sodium 3,000 mg/ Sodium Chloride 108 mls @ 200 mls/hr IV Q24H EDWIGE; Protocol Stop: 02/27/19 21:59 Sodium Chloride (Nss 1000ml) 1,000 mls @ 0 mls/hr IV .Q0M PRN PRN Reason: For Hemodialysis Use ONLY Stop: 02/22/19 12:59 Insulin Aspart (Novolog Flexpen) 0 units SC ACHS [facility] Stop: 03/19/19 20:59 Last Admin: 02/21/19 12:13 Dose: Not Given Documented by: Ipratropium [place] (Atrovent 0.02% 0.5mg/2.5ml) 0.5 mg INH Q6R [facility] Stop: 03/19/19 07:59 Last Admin: 02/21/19 07:02 Dose: 0.5 mg Documented by: Levalbuterol HCl (Xopenex 1.25mg/0.5ml Neb) 1.25 mg INH Q6R [facility] Stop: 03/19/19 07:59 Last Admin: 02/21/19 07:02 Dose: 1.25 mg Documented by: Levothyroxine Sodium (Synthroid) 125 mcg PO DAILYBB [facility] Stop: 03/19/19 06:29 Last Admin: 02/21/19 06:03 Dose: 125 mcg Documented by: Lorazepam (Ativan) 0.5 mg PO UD PRN PRN Reason: Anxiety Stop: 03/19/19 05:04 Magnesium Oxide (Mag-Ox) 400 mg PO DAILY [facility] Stop: 03/19/19 08:59 Last Admin: 02/21/19 08:49 Dose: 400 mg Documented by: Metoprolol Succinate (Toprol Xl) 12.5 mg PO DAILY [facility] Stop: 03/21/19 00:29 Last Admin: 02/21/19 08:52 Dose: 12.5 mg Documented by: Midodrine (Proamatine) 5 mg PO MoWeFrSa@2100 [facility] Stop: 03/19/19 20:59 Last Admin: 02/20/19 20:37 Dose: 5 mg Documented by: Midodrine (Proamatine) 10 mg PO MoWeFrSa@0900 [facility] Stop: 03/21/19 08:59 Last Admin: 02/20/19 08:58 Dose: 10 mg Documented by: Midodrine (Proamatine) 5 mg PO SuTuTh@0900,2100 [facility] Stop: 03/20/19 02:29 Last Admin: 02/21/19 08:55 Dose: 2.5 mg Documented by: Miscellaneous (Order Awaiting Action) 1 ea N/A QS [facility] Stop: 03/19/19 07:59 Last Admin: 02/21/19 10:06 Dose: Not Given Documented by: Miscellaneous (Carbohydrates For Hypoglycemia) 15 - 30 gm PO UD PRN PRN Reason: Hypoglycemia Treatment Stop: 03/19/19 17:13 Miscellaneous Information (Ampicillin/Sulbactam Consult) 1 ea N/A UD PRN PRN Reason: Consult Stop: 03/23/19 08:59 Nystatin (Mycostatin) 1 appln EXT BID [facility] Stop: 03/19/19 08:59 Last Admin: 02/21/19 09:06 Dose: 1 appln Documented by: Pantoprazole Sodium (Protonix) 40 mg PO QAM [facility] Stop: 03/19/19 08:59 Last Admin: 02/21/19 08:51 Dose: 40 mg Documented by: Sertraline HCl (Zoloft) 150 mg PO PM [facility] Stop: 03/19/19 20:59 Last Admin: 02/20/19 20:34 Dose: 150 mg Documented by: Vitamin B Complex/Folic Acid (Nephrocaps) 1 cap PO DAILY [facility] Stop: 03/19/19 08:59 Last Admin: 02/21/19 08:55 Dose: 1 cap Documented by: Vitamin D (Vitamin D3) 1,000 units PO DAILY [facility] Stop: 03/19/19 08:59 Last Admin: 02/21/19 08:50 Dose: 1,000 units Documented by: Warfarin Sodium (Coumadin) 2 mg PO DAILY@1600 [facility] Stop: 03/19/19 15:59 Last Admin: 02/20/19 15:16 Dose: 2 mg Documented by: (1) DM type 2 (diabetes mellitus, type 2) Diabetes mellitus complication detail: with polyneuropathy Diabetes mellitus complication status: with neurologic complications Diabetes mellitus terminal superintendent insulin use: with terminal superintendent use Qualified Code(s): E11.42 - Type 2 diabetes mellitus with diabetic polyneuropathy; Z79.4 - MCC (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 (2) Depression Depression Type: unspecified Qualified Code(s): F32.9 - Major depressive disorder, single episode, unspecified (3) Aspiration pneumonia Aspiration pneumonia type: unspecified Laterality: unspecified laterality Lung location: unspecified part of lung Qualified Code(s): J69.0 - Pneumonitis due to inhalation of food and vomit (4) RHF (right heart failure) Heart failure chronicity: unspecified Qualified Code(s): I50.810 - Right heart failure, unspecified
--- NOTE | 2019-02-21 13:51 | Progress Note ---
DATE: 02/21/2019 SUBJECTIVE: The patient's overall status remains very poor. She is barely interactive and did not even open eyes for me on command. She had dialysis 4 times a week, Friday, Friday, Friday and Friday. She does get low blood pressure with dialysis, but she also needs lot of fluid removal. PHYSICAL EXAMINATION: VITAL SIGNS: Blood pressure 109/72, pulse rate 87, temperature afebrile, 95% on BiPAP. CHEST: Bilateral decreased breath sounds, occasional wheezing and crackles. Poor inspiratory effort. CARDIOVASCULAR: S1 and S2 distant, soft systolic murmur heard. ABDOMEN: Soft, nontender. EXTREMITIES: Shows chronic skin changes, trace edema. LABORATORY TESTS: Reviewed. ASSESSMENT AND PLAN: End-stage renal disease: Her days are Friday, Friday, Friday and Friday. Tentatively, she is scheduled to be dialyzed tomorrow. I will write the order for tomorrow for 4 hours and we will try to take about 2.5 kilo off. Discussed the case with primary service. Even though the patient is only 63, it really appears she is essentially terminal from all her medical problem and consideration should be given for hospice care.
--- NOTE | 2019-02-21 15:11 | Progress Note ---
DATE: 02/21/2019 TIME: 2:15 p.m. SUBJECTIVE: The patient verbalizes minimally. She is off BiPAP at present. She has been off for approximately 30 minutes. She is on 6 liter nasal cannula. The patient cannot give me much history. She was very difficult to understand. OBJECTIVE: GENERAL: The patient appears comfortable. She has a small amount of brown material on the right lower lip. Apparently, this is some pudding that was given to her by nursing to help her get her medicines down. The patient could not tell me that came from her nurse. VITAL SIGNS: Temperature is 36.3. She has had no fevers in the past 24 hours. CARDIAC: Heart rate is 86 per minute. Rhythm is irregular. This is compatible with atrial fib, which she has by history. Blood pressure 109/72. Her blood pressures have improved today, but she did not have dialysis today. LUNGS: Respiratory rate 20 breaths per minute at the time of my exam. Rhonchi heard bilaterally, both anteriorly and posteriorly. She has a loose cough, but did not expectorate. Saturation 88% on 6 liter nasal cannula. EXTREMITIES: Unchanged. LABORATORY DATA: Electrolytes show sodium 131, potassium 5.3, chloride 95, bicarb 22. BUN 38, creatinine 4.24. IMPRESSIONS: 1. Respiratory failure, acute on chronic with hypoxia and hypercarbia. 2. Chronic obstructive pulmonary disease. 3. Right lower lobe atelectasis. 4. Severe pulmonary hypertension. 5. Obstructive sleep apnea. COMMENTS: The patient's status remains poor. She continues to shunt and require a significant amount of oxygen. At least she is off of BiPAP for now. I am sure this will be required later. She did saturate better earlier today when on BiPAP. Ampicillin/sulbactam was started today. I am not certain why that was started. Her status remains overall poor. I have no specific new suggestions at present.
[2019-02-21] MEDS: ATORVASTATIN 40 MG TAB PO SCH (20:27)
[2019-02-21] MEDS: SERTRALINE HCL 50 MG TABLET PO SCH (20:27)
[2019-02-21] MEDS: AMPICILLIN/SULBACTAM SOD 3,000 MG in 0.9 % SODIUM CHLORIDE 100 ML IV SCH (23:10)
[2019-02-22] MEDS: IPRATROPIUM BROMIDE NEB SOLN 0.02% 2.5 ML VIAL INH SCH ×5 (02:09→19:07)
[2019-02-22] MEDS: LEVALBUTEROL 1.25MG/0.5ML NEB INH SCH ×5 (02:09→19:07)
[2019-02-22] MEDS: LEVOTHYROXINE SODIUM 125 MCG TABLET PO SCH (06:41)
[2019-02-22] MEDS ORDERED: SODIUM CHLORIDE 0.9% 1000ML 1,000 ML IV PRN (07:00)
[2019-02-22 07:13] LABS: INR 8.7 (0.9-1.1)
[2019-02-22] MEDS ORDERED: PHYTONADIONE 5 MG TAB PO SCH (07:45)
[2019-02-22 08:12] LABS: Hematocrit (blood only) 38.4 % (37-47); Hemoglobin 12.4 g/dL (12.0-16.0); Mean Corpuscular Hgb Conc 32.3 g/dL (32-36); Mean Corpuscular Volume 92.3 fL (80-100); Mean Platelet Volume 10.8 fL (7.4-10.4); Nucleated RBC # (auto) 0.14 K/uL (0-0); Nucleated RBC % (auto) 0.6 %; Platelet Count 230 K/uL (130-400); RDW Coefficient of Variation 20.7 % (11.5-14.5); RDW Standard Deviation 69.7 fL (36.4-46.3); Red Blood Count 4.16 M/uL (4.2-5.4); White Blood Count 21.98 K/uL (4.8-10.8)
[2019-02-22 08:29] LABS: BUN Creatinine Ratio 11.4 (10-20); Calcium 10.6 mg/dl (8.5-10.1); Creatinine Clr Calc Pharmacy 10.5 ml/min; Est GFR (African American) 8.9; Est GFR (Non-African American) 7.7; Phosphorus 5.1 mg/dl (2.5-4.9); Potassium 5.2 mmol/L (3.5-5.1)
[2019-02-22] MEDS: MIDODRINE HCL 2.5 MG TAB PO SCH (09:04)
[2019-02-22] MEDS ORDERED: HYDROCORTISONE SOD SUCCINATE 100 MG/2 ML VIAL IV SCH (09:30)
[2019-02-22] MEDS: HYDROCORTISONE SOD 50 MG in SYRINGE 0 ML IV SCH ×2 (10:08→13:34)
[2019-02-22 11:58] LABS: HCO3 ABG 22 mmol/L (19-24); Oxygen Saturation ABG 93.9 % (90-95); PCO2 ABG 44 mmHg (35-46); PO2 ABG 71 mm/Hg (80-95); pH ABG 7.32 (7.35-7.45)
[2019-02-22 11:59] LABS: Allen Test Pos (Pos)
[2019-02-22] MEDS: INSULIN ASPART 100 UNITS/ML 3 ML PEN SC SCH ×4 (12:04→20:55)
[2019-02-22] MEDS ORDERED: MoRPHine SULFATE 2 MG/ML CARP IV STA (12:53)
[2019-02-22] MEDS: MAGNESIUM OXIDE 400 MG TAB PO SCH (13:41)
[2019-02-22] MEDS: PANTOprazole 40 MG TAB PO SCH (13:41)
[2019-02-22] MEDS: NEPHROCAPS PO SCH (13:41)
[2019-02-22] MEDS: CALCIUM ACETATE 667 MG CAP PO SCH ×3 (13:41→17:18)
[2019-02-22] MEDS: NYSTATIN POWDER 15GM BTL EXT SCH ×2 (13:41→20:35)
[2019-02-22] MEDS: DOCUSATE SODIUM 100 MG CAP PO SCH (13:41)
[2019-02-22] MEDS: MIDODRINE HCL 10 MG TAB PO SCH ×2 (13:41→20:56)
[2019-02-22] MEDS: GABAPENTIN 300 MG CAP PO SCH ×2 (13:41→13:43)
[2019-02-22] MEDS: ASCORBIC ACID 500 MG TAB PO SCH (13:42)
[2019-02-22] MEDS: CHOLECALCIFEROL 1,000 UNITS TAB PO SCH (13:42)
[2019-02-22] MEDS: METOPROLOL SUCC 25MG EXT REL TAB PO SCH (13:42)
[2019-02-22] MEDS: CYANOCOBALAMIN 500 MCG TABLET (VITAMIN B-12) PO SCH (13:42)
[2019-02-22] MEDS: BUDESONIDE/FORMOTEROL FUMARATE 160/4.5 60 PUFFS/INHALER INH SCH ×2 (13:42→20:56)
--- NOTE | 2019-02-22 14:23 | Hospitalist Progress Note ---
Date of Service February 22, 2019 Assessment & Plan (1) Acute and chronic respiratory failure: Continuous BIPAP to recruit alveoli, in setting of COPD and chronic RHF; reports using 4L: home oxygen 07/04. More fatigued, review of home meds reveals chronic prednisone 5mg. Started stress dose hydrocortisone. At this point, it is too unsafe to give her PO meds with her aspiration risk, so will cont with IV steroids. Cont Unasyn to treat aspiration, cont scheduled duonebs. Intensified pulmonary toilet including vibration vest, flutter valve. Morphine given to alleviate respiratory distress as patient is now DNR. (2) Aspiration pneumonia: ceftriaxone switched to Unasyn, more dependent on BIPAP which is likely multifactorial etiology. CXR in am to monitor progress. (3) DM type 2 (diabetes mellitus, type 2): ISS continues with blood sugars at goal. Added inpatient glycemic consult to help manage glucose with addition of steroids. (4) Depression: stable, cont sertraline (5) ESRD (end stage renal disease) on dialysis: cont inpatient HD per Nephro. Midodrine ordered with extra dosing on HD days. (6) RHF (right heart failure): chronic, compensated (7) Atrial fibrillation: controlled on Toprol. Cont coumadin. Daily INR (8) Supratherapeutic INR: coumadin on hold. Vitamin K given this morning. No active bleeding. Trend INR in am. (9) DVT prophylaxis: warfarin Full Code Dispo-uncertain with plans to return to [facility] at discharge. Continuing to optimize pulmonary status per plan above. Discussed code status with the family including daughter, son and who agree with making her a DNR. Palliative team present for this conversation. Tricia King DO [facility] Hospitalist Subjective She is continuing to require BIPAP consistently. HD today and she is exhausted after this. She is so weak it's hard for her to form words, but she is able to tell me she doesn't want to be reintubated if the need were to arise. Reports pain "all over" and she is using accessory respiratory muscles. I contacted daughter by phone who rallied the family together to discuss her code status. I contacted Palliative Care (Mindi) who was present at the family meeting. I contacted the ICU physician to take a look at her and discuss options. Review of Systems Review of Systems: All systems reviewed & are unremarkable except as noted in HPI & below Physical Exam Physical Exam: CONSTITUTIONAL: obese, fatigued, vitals as above, deconditioned EYES: normal conjunctivae, no scleral icterus ENT: MMM RESPIRATORY: bilateral rhonchi at bases, no crackles, rales or wheezes, normal respiratory effort on BIPAP CARDIOVASCULAR: regular rate and rhythm, S1 and 2 heard without murmurs, gallops or rubs, no JVD GASTROINTESTINAL: normal bowel sounds, soft, nontender, nondistended MUSCULOSKELETAL: generalized weakness, head is normocephalic and atraumatic SKIN: warm and dry NEUROLOGIC: CN 2-12 grossly intact, no gross focal deficits. PSYCHIATRIC: fatigued, frequently falling asleep. Results & Data Vital Signs (Past 12 Hours) Vital Signs Temp Pulse Pulse Pulse Resp BP BP 02/22/19 12:28 110 H 26 H 02/22/19 12:15 110 H 98/68 L 02/22/19 12:00 109 H 131/79 02/22/19 11:52 98 H 25 H 02/22/19 11:45 98 H 107/85 02/22/19 11:30 50 L 114/63 02/22/19 11:15 64 98/38 L 02/22/19 11:00 95 H 148/87 H 02/22/19 10:45 92 H 90/51 L 02/22/19 10:30 70 99/61 L 02/22/19 10:15 94 H 100/72 02/22/19 10:00 72 102/47 L 02/22/19 09:45 90 90/63 L 02/22/19 09:30 90 103/71 02/22/19 09:15 94 H 97/51 L 02/22/19 09:06 36.6 C 109 H 02/22/19 08:00 83 02/22/19 07:31 36.4 C L 92 H 17 135/69 02/22/19 07:20 96 H 93 H 26 H 02/22/19 04:21 36.4 C L 88 16 97/65 L Pulse Ox 02/22/19 12:28 94 02/22/19 12:15 02/22/19 12:00 02/22/19 11:52 98 02/22/19 11:45 02/22/19 11:30 02/22/19 11:15 02/22/19 11:00 02/22/19 10:45 02/22/19 10:30 02/22/19 10:15 02/22/19 10:00 02/22/19 09:45 02/22/19 09:30 02/22/19 09:15 02/22/19 09:06 02/22/19 08:00 02/22/19 07:31 92 02/22/19 07:20 96 02/22/19 04:21 92 Laboratory Results Short CBC 02/22/19 Range/Units 06:01 WBC 21.98 H (4.8-10.8) K/uL Hgb 12.4 (12.0-16.0) g/dL Hct 38.4 (37-47) % Plt Count 230 (130-400) K/uL BMP 02/22/19 06:01 Sodium 133 L Potassium 5.2 H Chloride 95 L Carbon Dioxide 24 BUN 62 H D Creatinine 5.43 H* D Glucose 176 H Calcium 10.6 H Medications Administered Current Inpatient Medications Hydrocodone Bitart/Acetaminophen ([place] 5/325) 1 tab PO Q6H PRN PRN Reason: Pain Stop: 03/03/19 05:04 Last Admin: 02/20/19 20:53 Dose: 1 tab Documented by: Albuterol (Ventolin Hfa) 2 puffs INH Q6H PRN PRN Reason: Shortness Of Breath Stop: 03/19/19 05:04 Atorvastatin Calcium (Lipitor) 40 mg PO HS EDWIGE Stop: 03/19/19 20:59 Last Admin: 02/21/19 20:27 Dose: 40 mg Documented by: Budesonide/Formoterol Fumarate (Symbicort 160mcg/4.5mcg) 2 puffs INH BID EDWIGE Stop: 03/19/19 08:59 Last Admin: 02/22/19 13:42 Dose: Not Given Documented by: Calcium Acetate (Phoslo) 2,668 mg PO TIDM EDWIGE Stop: 03/19/19 07:59 Last Admin: 02/22/19 13:42 Dose: Not Given Documented by: Dextrose (Dextrose 50%) 25 - 50 ml IV UD PRN; Protocol PRN Reason: Hypoglycemia Protocol Stop: 03/19/19 17:13 Gabapentin (Neurontin) 300 mg PO MoWeFrSa [facility] Stop: 03/19/19 13:59 Last Admin: 02/22/19 13:43 Dose: Not Given Documented by: Gabapentin (Neurontin) 300 mg PO DAILY [facility] Stop: 03/19/19 08:59 Last Admin: 02/22/19 13:41 Dose: Not Given Documented by: Glucagon (Glucagen) 1 mg SQ UD PRN; Protocol PRN Reason: Hypoglycemia Protocol Stop: 03/19/19 17:13 Glucose (Dex4 Glucose) 4 - 8 tabs PO UD PRN; Protocol PRN Reason: Hypoglycemia Protocol Stop: 03/19/19 17:13 Glucose (Glucose 40%) 15 - 30 gm PO UD PRN; Protocol PRN Reason: Hypoglycemia Protocol Stop: 03/19/19 17:13 Ampicillin Sodium/Sulbactam Sodium 3,000 mg/ Sodium Chloride 108 mls @ 200 mls/hr IV Q24H [facility]; Protocol Stop: 02/27/19 21:59 Last Infusion: 02/21/19 23:44 Dose: Infused Documented by: Hydrocortisone Sodium (Succinate 50 mg/ Syringe) 1 mls @ 4 mls/min IV Q8 [facility] Stop: 02/22/19 22:01 Last Admin: 02/22/19 13:34 Dose: 4 mls/min Documented by: Insulin Aspart (Novolog Flexpen) 0 units SC ACHS [facility] Stop: 03/19/19 20:59 Last Admin: 02/22/19 12:05 Dose: Not Given Documented by: Ipratropium [place] (Atrovent 0.02% 0.5mg/2.5ml) 0.5 mg INH Q6R [facility] Stop: 03/19/19 07:59 Last Admin: 02/22/19 13:43 Dose: Not Given Documented by: Levalbuterol HCl (Xopenex 1.25mg/0.5ml Neb) 1.25 mg INH Q6R [facility] Stop: 03/19/19 07:59 Last Admin: 02/22/19 13:43 Dose: Not Given Documented by: Levothyroxine Sodium (Synthroid) 125 mcg PO DAILYBB [facility] Stop: 03/19/19 06:29 Last Admin: 02/22/19 06:41 Dose: 125 mcg Documented by: Lorazepam (Ativan) 0.5 mg PO UD PRN PRN Reason: Anxiety Stop: 03/19/19 05:04 Magnesium Oxide (Mag-Ox) 400 mg PO DAILY [facility] Stop: 03/19/19 08:59 Last Admin: 02/22/19 13:41 Dose: Not Given Documented by: Metoprolol Succinate (Toprol Xl) 12.5 mg PO DAILY [facility] Stop: 03/21/19 00:29 Last Admin: 02/22/19 13:42 Dose: Not Given Documented by: Midodrine (Proamatine) 5 mg PO MoWeFrSa@2100 [facility] Stop: 03/19/19 20:59 Last Admin: 02/20/19 20:37 Dose: 5 mg Documented by: Midodrine (Proamatine) 10 mg PO MoWeFrSa@0900 [facility] Stop: 03/21/19 08:59 Last Admin: 02/22/19 13:41 Dose: Not Given Documented by: Midodrine (Proamatine) 5 mg PO SuTuTh@0900,2100 [facility] Stop: 03/20/19 02:29 Last Admin: 02/22/19 09:04 Dose: 5 mg Documented by: Miscellaneous (Order Awaiting Action) 1 ea N/A QS [facility] Stop: 03/19/19 07:59 Last Admin: 02/22/19 13:41 Dose: Not Given Documented by: Miscellaneous (Carbohydrates For Hypoglycemia) 15 - 30 gm PO UD PRN PRN Reason: Hypoglycemia Treatment Stop: 03/19/19 17:13 Miscellaneous Information (Ampicillin/Sulbactam Consult) 1 ea N/A UD PRN PRN Reason: Consult Stop: 03/23/19 08:59 Nystatin (Mycostatin) 1 appln EXT BID [facility] Stop: 03/19/19 08:59 Last Admin: 02/22/19 13:41 Dose: Not Given Documented by: Pantoprazole Sodium (Protonix) 40 mg PO QAM [facility] Stop: 03/19/19 08:59 Last Admin: 02/22/19 13:41 Dose: Not Given Documented by: Prednisone (Prednisone) 5 mg PO DAILY [facility] Stop: 03/25/19 08:59 Sertraline HCl (Zoloft) 150 mg PO PM [facility] Stop: 03/19/19 20:59 Last Admin: 02/21/19 20:27 Dose: 150 mg Documented by: Vitamin B Complex/Folic Acid (Nephrocaps) 1 cap PO DAILY [facility] Stop: 03/19/19 08:59 Last Admin: 02/22/19 13:41 Dose: Not Given Documented by: Vitamin D (Vitamin D3) 1,000 units PO DAILY [facility] Stop: 03/19/19 08:59 Last Admin: 02/22/19 13:42 Dose: Not Given Documented by: (1) DM type 2 (diabetes mellitus, type 2) Diabetes mellitus complication detail: with polyneuropathy Diabetes mellitus complication status: with neurologic complications Diabetes mellitus soa engineer insulin use: with longterm use Qualified Code(s): E11.42 - Type 2 diabetes mellitus with diabetic polyneuropathy; Z79.4 - radiology technician (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 (2) Depression Depression Type: unspecified Qualified Code(s): F32.9 - Major depressive disorder, single episode, unspecified (3) Aspiration pneumonia Aspiration pneumonia type: unspecified Laterality: unspecified laterality Lung location: unspecified part of lung Qualified Code(s): J69.0 - Pneumonitis due to inhalation of food and vomit (4) RHF (right heart failure) Heart failure chronicity: unspecified Qualified Code(s): I50.810 - Right heart failure, unspecified
[2019-02-22] MEDS ORDERED: GLYCERIN ADULT 12 EA SUPP PR ONE (16:38)
[2019-02-22] MEDS ORDERED: GLYCERIN ADULT 12 EA SUPP PR PRN (16:38)
[2019-02-22] MEDS ORDERED: MoRPHine SULFATE 5 MG/0.25 ML UDP PO ONE (16:43)
--- NOTE | 2019-02-22 16:50 | Palliative Care Consultation ---
Date of Consultation February 22, 2019 Assessment & Plan (1) Palliative care encounter: This patient is a 63 year old recently new resident of [facility] with a very complex medical history including chronic respiratory failure dependent on 4LNC at home, hypoventilation syndrome, AFib, CHF, HLD, Hypothyroidism, chronic aspiration PNA, ESRD (aneuric), and multiple readmissions presented to the ED with aspiration PNA and hypoxia. Patient with increasing weakness and lethargy and requiring increased need of Bipap and does not tolerate more than 30 minutes off the Bipap now. Patient has been known to the Hospitalist team and has shown gradual and steady decline over the past 1-2 years. Palliative Care was consulted to assist with Goals of Care discussion. -I met with Dr. King, patient, patient and two adult children in the patients room, 243. -Dr. King led the conversation to ask family how they felt patient was presenting and providing pertinent clinical details -Education was provided to family about intubation. Patient has expressed to Hospitalist that she would not like to be intubated, which the patient reiterated in the room by saying "No tube" in between breaths after taking her BiPap mask off. -Patient family understandably tearful during discussion. Patient stated to change patient to DNR status. -The patients stated that they would support NOT escalating care above a BiPap mask. -We encouraged and children to talk to the patient. Patient requested the mask be taken off, which I removed and placed on 9L oxymask. Patient SpO2 remained 94-95%. -Discussed how the patient was diaphragmatically breathing and presented the option of trialing a dose of Roxanol 10 mg ONCE, which they agreed to to assist with air hunger. -I will again visit the patient in the morning. Based on the patients current condition, I do not forsee the patient leaving the hospital. -We will readdress tomorrow and based on the family's conversation, could anticipate a transition to full comfort measures only should she not show improvement with additional steroids, abx treatment, etc. -PPS 10%. (2) Acute and chronic respiratory failure: (3) Atrial fibrillation: (4) Aspiration pneumonia: Aspiration pneumonia type: unspecified Laterality: unspecified laterality Lung location: unspecified part of lung Qualified Code(s): J69.0 - Pneumonitis due to inhalation of food and vomit (5) Congestive heart failure: Heart failure chronicity: chronic Heart failure type: unspecified Qualified Code(s): I50.9 - Heart failure, unspecified (6) Renal failure: Chronic kidney disease stage: on chronic dialysis Renal failure chronicity: chronic Qualified Code(s): N18.6 - End stage renal disease; Z99.2 - Dependence on renal dialysis History of Present Illness Reason for Consultation: Goals of care Requesting Physician: Dr. King Attending Physician: Tricia King, DO History of Present Illness This patient is a 63 year old recently new resident of [facility] with a very complex medical history including chronic respiratory failure dependent on 4LNC at home, hypoventilation syndrome, AFib, CHF, HLD, Hypothyroidism, chronic aspiration PNA, ESRD (aneuric), and multiple readmissions presented to the ED with aspiration PNA and hypoxia. Patient with increasing weakness and lethargy and requiring increased need of Bipap and does not tolerate more than 30 minutes off the Bipap now. Patient has been known to the Hospitalist team and has shown gradual and steady decline over the past 1-2 years. Palliative Care was consulted to assist with Goals of Care discussion. Please see A/P for further details. Thank you kindly for involving us with this unfortunate patient and dago family. We will continue to assist with decision making. Allergies Allergy/AdvReac Type Severity Reaction Status Date / Time bacitracin Allergy Intermediate RASH,ITCH Verified 02/17/19 01:55 celecoxib Allergy Intermediate RASH TO Verified 02/17/19 01:55 SULFA DRUGS neomycin Allergy Intermediate RASH,ITCH Verified 02/17/19 01:55 polymyxin B Allergy Intermediate RASH,ITCH Verified 02/17/19 01:55 Sulfa (Sulfonamide Allergy Intermediate RASH,HAS Verified 02/17/19 01:55 Antibiotics) TAKEN GLIPIZIDE W/O REACTION tigecycline AdvReac Severe MILD Verified 02/17/19 01:55 PANCREATITIS codeine AdvReac Intermediate GI UPSET Verified 02/17/19 01:55 Home Medications Home Medications Medication Instructions Recorded Confirmed Type albuterol sulfate 2.5 mg/3 mL 1.25 mg INH Q4H PRN 06/01/18 02/17/19 History (0.083 %) solution for nebulization albuterol sulfate HFA 90 2 puffs INH Q6H PRN 06/01/18 02/17/19 History mcg/actuation aerosol inhaler ascorbic acid (vitamin C) 500 mg 500 mg PO DAILY cap 06/01/18 02/17/19 History capsule atorvastatin 40 mg tablet 40 mg PO HS 06/01/18 02/17/19 History cholecalciferol (vitamin D3) 1,000 1,000 units PO DAILY 06/01/18 02/17/19 History unit capsule hydrocodone 5 mg-acetaminophen 325 1 tab PO Q6H PRN 06/01/18 02/17/19 History mg tablet insulin glargine (U-100) 100 30 units SQ HS 06/01/18 02/17/19 History unit/mL (3 mL) subcutaneous pen levothyroxine 125 mcg tablet 125 mcg PO QAM 06/01/18 02/17/19 History magnesium oxide 400 mg (241.3 mg 400 mg PO DAILY tab 06/01/18 02/17/19 History magnesium) tablet metoprolol succinate ER 25 mg 12.5 mg PO DAILY 06/01/18 02/17/19 History capsule sprinkle, ext. release 24 hr pantoprazole 20 mg tablet,delayed 20 mg PO QAM 06/01/18 02/17/19 History release sertraline 100 mg tablet 150 mg PO PM tab 06/01/18 02/17/19 History Anoro Ellipta 1 inh INHALATION DAILY 06/22/18 02/17/19 History docusate sodium [Colace] 100 mg PO BID 06/22/18 02/17/19 History nystatin 1 applic TOPICAL BID 06/22/18 02/17/19 History prednisone 5 mg PO DAILY 06/22/18 02/17/19 History lorazepam 0.5 mg PO UD PRN 07/15/18 02/17/19 History Probiotic 3,000 mmu cells PO DAILY 01/11/19 02/17/19 History Renal Vitamin 1 tab PO DAILY 01/11/19 02/17/19 History midodrine 5 mg PO SUTUTH@01/11/19 02/17/19 History Novolog Flexpen U-100 Insulin 15 unit SUBCUT UD 02/04/19 02/17/19 History calcium acetate 2,668 mg PO TIDM 02/04/19 02/17/19 History cyanocobalamin (vitamin B-12) 1,000 mcg PO DAILY 02/04/19 02/17/19 History gabapentin 300 mg PO UD 02/04/19 02/17/19 History amoxicillin-pot clavulanate 1 tab PO BID #10 tab 02/11/19 02/17/19 Rx [Augmentin] budesonide-formoterol [Symbicort] 2 puff INHALATION BID #1 g 02/11/19 02/17/19 Rx prednisone 40 mg PO DAILY #10 tab 02/11/19 02/17/19 Rx warfarin [Coumadin] 2 mg PO DAILY@1600 #90 tab 02/11/19 02/17/19 Rx midodrine 5 mg PO MOWEFRSA@2100 02/17/19 02/17/19 History midodrine 10 mg PO MOWEFRSA@0900 02/17/19 02/17/19 History Patient History Medical History Hypotension (Acute) Acute and chronic respiratory failure with hypoxia (Acute) Chronic knee pain (Chronic) COPD exacerbation (Resolved) Sleep apnea (Chronic) Chronic anemia (Chronic) Pneumonia (Acute) Generalized weakness (Resolved) Iron (Fe) deficiency anemia (Chronic) Morbid obesity (Chronic) Obesity hypoventilation syndrome (Chronic) Pressure ulcer Atrial fibrillation (Chronic) Pulmonary HTN (Chronic) COPD (chronic obstructive pulmonary disease) (Chronic) DM type 2 (diabetes mellitus, type 2) (Chronic) HTN (hypertension) (Chronic) RHF (right heart failure) (Chronic) Chronic respiratory failure with hypoxia (Chronic) ESRD (end stage renal disease) on dialysis (Chronic) Hypothyroidism (Chronic) Depression (Chronic) HLD (hyperlipidemia) (Chronic) Neuropathy (Chronic) Diabetic gastroparesis (Chronic) H/O deep venous thrombosis (Resolved) ESRD (end stage renal disease) on dialysis (Inactive) Surgical History History of tracheostomy History of hernia repair (Resolved) Status post laparoscopic cholecystectomy (Resolved) S/P debridement (Chronic) "08/30/2016- debridement bilateral lower extremity and buttock wounds" Hx of cholecystectomy (Resolved) Family History Other CKD (chronic kidney disease) Coronary heart disease Social History Preferred Language: Telugu Communication Ability: Effective Ict Support Technicians Required: No Beliefs That Will Affect Care: None marital status: Current Living Situation: Family Other Information That Helps Us Care for You: No Feels Safe at Home: Yes Safety Concerns: Feels Safe At This Time Smoking Status: Unknown if ever smoked Hx Alcohol Use: No Hx Substance Use: No Review of Systems Review of Systems: Other (Patient expressing she does not want intubated, and that she is tired. Patient increasingly lethargic and not able to provided ROS at this time. ) Physical Exam Constitutional: + ill appearing, + morbidly obese and + in distress Eyes: PERRL, conjunctivae normal, anicteric sclerae ENMT: external ear and nose normal, oropharynx normal Neck: + thick neck Respiratory: + uses accessory muscles (diaphragmatic) and + cough Auscultation: + crackles and + rhonchi On Bipap. Poor respiratory effort and shallow breathing. Was on BiPap 0.40 transitioned to Oxymask 9L. Cardiovascular: Rate/Rhythm: regular rate and regular rhythm Heart Sounds: normal S1 and normal S2; no gallop, no murmur and no cardiac rub Gastrointestinal (Abdomen): normal bowel sounds, soft, nontender, no hepatosplenomegaly Inspection/Auscultation: normal bowel sounds Percu ssion/Palpation: abdomen soft Psychiatric: Orientation: alert and oriented x 3 Insight: good insight Judgement: good judgement Able to answer some questions but patient is labored with her breath Genitourinary: anuric Lymphatic: no cervical or axillary lymphadenopathy Results & Data Vital Signs (Past 12 Hours) Vital Signs Temp Pulse Pulse Pulse Resp BP BP 02/22/19 16:00 96 H 02/22/19 15:47 95 H 25 H 02/22/19 15:36 95 H 25 H 02/22/19 15:22 91 H 20 104/61 02/22/19 12:46 36.6 C 103 H 02/22/19 12:30 109 H 90/55 L 02/22/19 12:28 110 H 26 H 02/22/19 12:15 110 H 98/68 L 02/22/19 12:00 109 H 131/79 02/22/19 11:52 98 H 25 H 02/22/19 11:45 98 H 107/85 02/22/19 11:30 50 L 114/63 02/22/19 11:15 64 98/38 L 02/22/19 11:00 95 H 148/87 H 02/22/19 10:45 92 H 90/51 L 02/22/19 10:30 70 99/61 L 02/22/19 10:15 94 H 100/72 02/22/19 10:00 72 102/47 L 02/22/19 09:45 90 90/63 L 02/22/19 09:30 90 103/71 02/22/19 09:15 94 H 97/51 L 02/22/19 09:06 36.6 C 109 H 02/22/19 08:00 83 02/22/19 07:31 36.4 C L 92 H 17 02/22/19 07:20 96 H 93 H 26 H BP Pulse Ox 02/22/19 16:00 02/22/19 15:47 95 02/22/19 15:36 95 02/22/19 15:22 98 02/22/19 12:46 99/63 L 02/22/19 12:30 02/22/19 12:28 94 02/22/19 12:15 02/22/19 12:00 02/22/19 11:52 98 02/22/19 11:45 02/22/19 11:30 02/22/19 11:15 02/22/19 11:00 02/22/19 10:45 02/22/19 10:30 02/22/19 10:15 02/22/19 10:00 02/22/19 09:45 02/22/19 09:30 02/22/19 09:15 02/22/19 09:06 02/22/19 08:00 02/22/19 07:31 135/69 92 02/22/19 07:20 96
[2019-02-22] MEDS ORDERED: PHARMACY GLYCEMIC MGMT CONSULT PRN (17:58)
--- NOTE | 2019-02-22 20:00 | Dialysis Progress Note ---
Date of Service February 22, 2019 Assessment & Plan (1) ESRD (end stage renal disease) on dialysis: Patient with ESRD on dialysis Friday. She was dialyzed today with 1.9 L removed; she had to stop treatment early d/t worsening hypoxemia/ respiratory status. from a volume standpoint she is as good as I can get her w/ dialysis at thsi time. her potassium should improve w/ HD; not anemic; chronic volume overload and respiratory failure. -plan tentatively next dialysis for 02/24 or as clinical needs dictate -concern that she may be nearing end of life; note code change and palliative evaluation (2) Acute and chronic respiratory failure with hypoxia: Likely multifactorial including volume overload and pneumonia. She is receiving IV antibiotics per primary team. Currently on BIPAP. (3) Hypotension: Due to dialysis and CHF. She is getting Midodrin. She required Levophed during dialysis while in ICU. Subjective seen on dialysis this am> we opted to do HD at bedside d/t pt worsening clinical and respiratory status; unable to come off of bipap, more lethargic. tx stopped 30 min early after d/w dialysis nurse d/t worsening hypoxemia, increased wob. note that she has changed code status today to dnr/dni. pt unable to give ros when I saw her d/t clinical condition Review of Systems Review of Systems: Unobtainable due to reduced consciousness Physical Exam Constitutional: well developed, well nourished, + obese and + frail appearing on bipap, lethargic; opens eyes briefly; does not track ENMT: Ears: no external ear abnormality Nose: no external nose abnormality Mouth: + dry oral mucous membranes Neck: no nuchal rigidity Respiratory: + labored breathing Auscultation: + diminished lung sounds on bipap Cardiovascular: Rate/Rhythm: + tachycardic Extremities: no edema Gastrointestinal (Abdomen): Inspection/Auscultation: normal bowel sounds Percussion/Palpation: abdomen soft; abdomen nontender Musculoskeletal: laboy w/ painful stimulus Skin: no rashes, warm and dry Neurologic: obtunded/lethargic Results & Data Vital Signs (Past 12 Hours) Vital Signs Temp Pulse Pulse Pulse Resp BP BP 02/22/19 17:23 36.8 C 02/22/19 16:52 02/22/19 16:00 96 H 02/22/19 15:47 95 H 25 H 02/22/19 15:36 95 H 25 H 02/22/19 15:22 91 H 20 104/61 02/22/19 12:46 36.6 C 103 H 02/22/19 12:30 109 H 90/55 L 02/22/19 12:28 110 H 26 H 02/22/19 12:15 110 H 98/68 L 02/22/19 12:00 109 H 131/79 02/22/19 11:52 98 H 25 H 02/22/19 11:45 98 H 107/85 02/22/19 11:30 50 L 114/63 02/22/19 11:15 64 98/38 L 02/22/19 11:00 95 H 148/87 H 02/22/19 10:45 92 H 90/51 L 02/22/19 10:30 70 99/61 L 02/22/19 10:15 94 H 100/72 02/22/19 10:00 72 102/47 L 02/22/19 09:45 90 90/63 L 02/22/19 09:30 90 103/71 02/22/19 09:15 94 H 97/51 L 02/22/19 09:06 36.6 C 109 H 02/22/19 08:00 83 BP Pulse Ox 02/22/19 17:23 02/22/19 16:52 95 02/22/19 16:00 02/22/19 15:47 95 02/22/19 15:36 95 02/22/19 15:22 98 02/22/19 12:46 99/63 L 02/22/19 12:30 02/22/19 12:28 94 02/22/19 12:15 02/22/19 12:00 02/22/19 11:52 98 02/22/19 11:45 02/22/19 11:30 02/22/19 11:15 02/22/19 11:00 02/22/19 10:45 02/22/19 10:30 02/22/19 10:15 02/22/19 10:00 02/22/19 09:45 02/22/19 09:30 02/22/19 09:15 02/22/19 09:06 02/22/19 08:00 Laboratory Results Abnormal lab results 02/21/19 02/22/19 02/22/19 Range/Units 20:20 05:57 06:01 WBC 21.98 H (4.8-10.8) K/uL RBC 4.16 L (4.2-5.4) M/uL RDW Std Deviation 69.7 H (36.4-46.3) fL RDW Coeff of Yogi 20.7 H (11.5-14.5) % MPV 10.8 H (7.4-10.4) fL Absolute Nucleated RBC 0.14 H (0-0) K/uL PT 76.0 H (9.0-12.0) Seconds INR 8.7 H* (0.9-1.1) ABG pH (7.35-7.45) ABG pO2 (80-95) mm/Hg Sodium (136-145) mmol/L Potassium (3.5-5.1) mmol/L Chloride (98-107) mmol/L Anion Gap (3-11) BUN (7-18) mg/dl Creatinine (0.6-1.2) mg/dl Glucose (70-99) mg/dl POC Glucose 165 H (70-99) Calcium (8.5-10.1) mg/dl Phosphorus (2.5-4.9) mg/dl Magnesium (1.8-2.4) mg/dl 02/22/19 02/22/19 02/22/19 Range/Units 06:01 07:30 11:27 WBC (4.8-10.8) K/uL RBC (4.2-5.4) M/uL RDW Std Deviation (36.4-46.3) fL RDW Coeff of Yogi (11.5-14.5) % MPV (7.4-10.4) fL Absolute Nucleated RBC (0-0) K/uL PT (9.0-12.0) Seconds INR (0.9-1.1) ABG pH (7.35-7.45) ABG pO2 (80-95) mm/Hg Sodium 133 L (136-145) mmol/L Potassium 5.2 H (3.5-5.1) mmol/L Chloride 95 L (98-107) mmol/L Anion Gap 14.0 H (3-11) BUN 62 H D (7-18) mg/dl Creatinine 5.43 H* D (0.6-1.2) mg/dl Glucose 176 H (70-99) mg/dl POC Glucose 176 H 119 H (70-99) Calcium 10.6 H (8.5-10.1) mg/dl Phosphorus 5.1 H (2.5-4.9) mg/dl Magnesium 3.0 H (1.8-2.4) mg/dl 02/22/19 02/22/19 Range/Units 11:47 17:14 WBC (4.8-10.8) K/uL RBC (4.2-5.4) M/uL RDW Std Deviation (36.4-46.3) fL RDW Coeff of Yogi (11.5-14.5) % MPV (7.4-10.4) fL Absolute Nucleated RBC (0-0) K/uL PT (9.0-12.0) Seconds INR (0.9-1.1) ABG pH 7.32 L (7.35-7.45) ABG pO2 71 L (80-95) mm/Hg Sodium (136-145) mmol/L Potassium (3.5-5.1) mmol/L Chloride (98-107) mmol/L Anion Gap (3-11) BUN (7-18) mg/dl Creatinine (0.6-1.2) mg/dl Glucose (70-99) mg/dl POC Glucose 164 H (70-99) Calcium (8.5-10.1) mg/dl Phosphorus (2.5-4.9) mg/dl Magnesium (1.8-2.4) mg/dl (1) Hypotension Hypotension type: unspecified hypotension type Qualified Code(s): I95.9 - Hypotension, unspecified
--- NOTE | 2019-02-22 20:35 | Pharmacy Report ---
Glycemic Control Consultation - Date of Service February 22, 2019 - Scope Scope: Glycemic Pharmacist consulted by Dr King on 02-22 for glycemic control and to write orders per [facility] inpatient glycemic control protocol - Objective Weight: 82.2 kg Accuchecks BSG (last 24hrs): 02/22/19 02/22/19 02/22/19 06:01 07:30 11:27 Glucose 176 H POC Glucose 176 H 119 H 02/22/19 17:14 Glucose POC Glucose 164 H Laboratory Data (last 24hrs): 02/22/19 06:01 Potassium 5.2 H Carbon Dioxide 24 Anion Gap 14.0 H Creatinine 5.43 H* D Est Cr Clr Drug Dosing 10.5 - Recent Pertinent Medications Outpatient Anti-diabetic Regimen: * Lantus 30 units HS, Aspart 12-15 units with meals * A1c = 8.8 % [01-17-] *note patient on dialysis The patient is currently receiving: * Basal insulin: none - last dose 02/17 * Correctional Insulin: Novolog Correction per scale ACHS Goal Range: Low 120 mg/dL - High 180 mg/dL Correction Factor: 30 mg/dL/unit * Prandial insulin: Per carb ratio of 1 unit per 30 grams CHO consumed * Oral Agents: Risk Factors for Insulin Resistance: * Steroids: hydrocortisone 100 Q 8 hrs * Infection: aspiration pneumonia/unasyn * Diet: T2DM - Assessment & Plan Assessment & Plan: ASSESSMENT: * 63 year old with chronic respiratory failure/oxygen dependant at home, afib, CHF, HLD, hypothyroidism, DM2, ESRD with multiple recent admissions. * Pharmacy consulted due to initiation of steroids and concern for steroid induced hyperglycemia * Hydrocortisone started this morning - 50 mg iv Q8 hrs, then transitioned to 100 mg IV Q 8 hrs tonight * Last few days patient has not been receiving hardly any insulin (1 unit in last 24 hours), no documentation of carbs eaten - BSGs have been fairly stable days prior. Last Lantus dose documented was on 02/17. * BSGs today have also been fairly controlled 176-119-164 mg/dL - will tighten CF * Palliative care now consulted - per provider notes will trial steroids but if no improvement may consider comfort care * Will add overnight check for tonight - if trending up could consider adding one time dose of Lantus PLAN FOR INPATIENT GLYCEMIC CONTROL: * Basal insulin * Lantus - hold for now / add overnight check * Bolus insulin * NovoLog per scale ACHS or Q6hrs while NPO * Goal Range: Low 120 mg/dL - High 180 mg/dL * Correction Factor: 20 mg/dL/unit * Nutritional / Prandial insulin per carb ratio of 1 unit per 30 grams CHO consumed * Please note that the plan above was derived based on current level of insulin resistance and hospital stress. These recommendations are appropriate for inpatient admission only. Plan of care upon discharge will need to be reassessed to avoid potential outpatient hypo/hyperglycemia. Thank you.
[2019-02-22] MEDS: SERTRALINE HCL 50 MG TABLET PO SCH (20:56)
[2019-02-22] MEDS: HYDROCORTISONE SOD 100 MG in SYRINGE 0 ML IV SCH (21:47)
[2019-02-22] MEDS: AMPICILLIN/SULBACTAM SOD 3,000 MG in 0.9 % SODIUM CHLORIDE 100 ML IV SCH (21:47)
[2019-02-23] MEDS ORDERED: INSULIN ASPART 100 UNITS/ML 3 ML PEN SC SCH
[2019-02-23] MEDS: INSULIN GLARGINE SOLOSTAR 100 UNITS/ML 3 ML PEN SC STA ×2 (01:07→01:46)
[2019-02-23] MEDS: IPRATROPIUM BROMIDE NEB SOLN 0.02% 2.5 ML VIAL INH SCH ×4 (02:11→19:18)
[2019-02-23] MEDS: LEVALBUTEROL 1.25MG/0.5ML NEB INH SCH ×4 (02:11→19:18)
[2019-02-23] MEDS: HYDROCORTISONE SOD 100 MG in SYRINGE 0 ML IV SCH ×2 (05:20→13:53)
[2019-02-23] MEDS: LEVOTHYROXINE SODIUM 125 MCG TABLET PO SCH (05:22)
[2019-02-23 06:54] LABS: HCO3 ABG 21 mmol/L (19-24); Oxygen Saturation ABG 97.9 % (90-95); PCO2 ABG 51 mmHg (35-46); PO2 ABG 123 mm/Hg (80-95); pH ABG 7.23 (7.35-7.45)
[2019-02-23 07:00] LABS: Allen Test Pos (Pos)
[2019-02-23 07:19] LABS: Hematocrit (blood only) 37.8 % (37-47); Hemoglobin 11.9 g/dL (12.0-16.0); Mean Corpuscular Hgb Conc 31.5 g/dL (32-36); Mean Corpuscular Volume 93.1 fL (80-100); Mean Platelet Volume 10.1 fL (7.4-10.4); Nucleated RBC # (auto) 0.18 K/uL (0-0); Nucleated RBC % (auto) 0.7 %; Platelet Count 201 K/uL (130-400); RDW Coefficient of Variation 20.8 % (11.5-14.5); RDW Standard Deviation 70.5 fL (36.4-46.3); Red Blood Count 4.06 M/uL (4.2-5.4); White Blood Count 24.89 K/uL (4.8-10.8)
--- NOTE | 2019-02-23 07:20 | XRay Report ---
XR chest 1V portable HISTORY: 63 years-old Female hypoxia, requiring BIPAP acute hypoxia COMPARISON: Chest radiograph 02/20/2019 TECHNIQUE: Portable AP view of the chest FINDINGS: Cardiac silhouette is enlarged, unchanged. Stable positioning of the dual-lumen hemodialysis catheter . No pneumothorax or large pleural effusion. Right basilar opacities with blunting of the right costo phrenic angle appear unchanged. Left lung is generally clear. No overt pulmonary edema. Degenerative changes of the shoulders and spine. IMPRESSION: 1. Cardiomegaly without overt pulmonary edema. 2. Chronic right lung base opacities suggestive of atelectasis/scarring. The above report was generated using voice recognition software. It may contain grammatical, syntax o r spelling errors. Electronically signed by: Mack Rubin M.D. 02/23/2019 7:19 AM
[2019-02-23 08:03] LABS: BUN Creatinine Ratio 11.4 (10-20); Calcium 9.5 mg/dl (8.5-10.1); Creatinine Clr Calc Pharmacy 11.2 ml/min; Est GFR (African American) 9.6; Est GFR (Non-African American) 8.3; Potassium 5.5 mmol/L (3.5-5.1)
[2019-02-23 08:26] LABS: INR 9.3 (0.9-1.1)
[2019-02-23] MEDS ORDERED: predniSONE 5 MG TAB PO SCH (09:00)
--- NOTE | 2019-02-23 09:16 | Pharmacy Report ---
Pharmacy Glycemic Short Note 2 - Date of Service February 23, 2019 - Glycemic Short BSG Results (Last 24 hours): 02/22/19 02/22/19 02/22/19 11:27 17:14 20:33 Glucose POC Glucose 119 H 164 H 172 H 02/22/19 02/23/19 02/23/19 23:51 06:32 07:33 Glucose 202 H POC Glucose 220 H 186 H OUTPATIENT ANTIDIABETIC REGIMEN: * Lantus 30 units qHS * Novolog 15 units with meals * A1c = 8.8% on 01/17/19 * However, this result is likely somewhat unreliable in ESRD patients d/t interactions between the A1c analyzing technique and high levels of urea in ESRD, reduced RBC life span, iron deficiency anemia, and EPO administration. HbA1c > 7.5% in ESRD patient may overestimate the extent of hyperglycemia in ESRD patients. ASSESSMENT: 02/23 * Ms. Blevins'ceci BSGs increased overnight so a one time dose of Lantus 10 units was given in addition to 2 units of Novolog * Fasting BSG is still elevated but improved this AM so held off on further basal. BSG now increased prior to lunch so will give an additional dose of Lantus now. * With steroids on board, will need to be more aggressive with prandial coverage; however, patient with minimal/no po intake * Palliative saw patient today and she is now with more shallow breathing, with consideration for comfort care only * Will plan to improve glycemic control but no need to be overly aggressive with current status 02/22 * 63 year old with chronic respiratory failure/oxygen dependant at home, afib, CHF, HLD, hypothyroidism, DM2, ESRD with multiple recent admissions. * Pharmacy consulted due to initiation of steroids and concern for steroid induced hyperglycemia * Hydrocortisone started this morning - 50 mg iv Q8 hrs, then transitioned to 100 mg IV Q 8 hrs tonight * Last few days patient has not been receiving hardly any insulin (1 unit in last 24 hours), no documentation of carbs eaten - BSGs have been fairly stable days prior. Last Lantus dose documented was on 02/17. * BSGs today have also been fairly controlled 176-119-164 mg/dL - will tighten CF * Palliative care now consulted - per provider notes will trial steroids but if no improvement may consider comfort care * Will add overnight check for tonight - if trending up could consider adding one time dose of Lantus PLAN FOR INPATIENT GLYCEMIC CONTROL: * Basal insulin - increase but not overly aggressive in light of current status * Lantus 10 units x 1 now * Lantus SQ BID per the following scale: * 0 units for BSG < 120 * 5 units for BSG 120-180 * 10 units for BSG > 180 * Bolus insulin - tighten parameters slightly * NovoLog per scale ACHS or Q6hrs while NPO * Goal Range: Low 120 mg/dL - High 160 mg/dL * Correction Factor: 25 mg/dL/unit * Nutritional / Prandial insulin per carb ratio of 1 unit per 10 grams CHO consumed Discharge Recommendations: * pending patient being transferred to comfort measures
[2019-02-23] MEDS ORDERED: PHYTONADIONE 2.5 MG in SODIUM CHLORIDE 0.9% 50 ML IV STA (10:28)
--- NOTE | 2019-02-23 11:02 | Palliative Care Progress Note ---
Date of Service February 23, 2019 Assessment & Plan (1) Palliative care encounter: -I met with patient in the room with PRINCIPAL SYSTEMS ARCHITECT student Magi Porter. -Pt is continuing to require BIPAP 0.40% SpO2 98%. Pt has not had the mask removed today due to increased somnolence and lethargy. -Pt did not open eyes to my voice, but when I asked if she was tired, she nodded her head. -Patient with more shallow breathing today. -Based on patient presentation, I did discontinue PT/OT orders. Can reorder if necessary. Hospitalist made aware. -No family at bedside during my visit. -The patient did receive one dose of Roxanol last evening. No formal orders for comfort meds at this time. -I spoke with the Hospitalist and we will discuss further transition to comfort measures only should the patient not show any additional cognitive improvement throughout the day. -I do not forsee the patient leaving the hospital with her current presentation; however, do not feel GIP is an appropriate approach as her symptoms likely can be controlled with our interventions. -Palliative Care will continue to follow and provide support moving forward. -PPS 10%. (2) Acute and chronic respiratory failure: (3) Atrial fibrillation: (4) Aspiration pneumonia: (5) Congestive heart failure: (6) Renal failure: Subjective She is continuing to require BIPAP and has not had the mask removed today due to increased somnolence and lethargy. Pt did not open eyes to my voice, but when I asked if she was tired, she nodded her head. Patient with more shallow breathing today No family at bedside during my visit. See A/P for further details. Review of Systems Review of Systems: Unobtainable due to reduced consciousness Physical Exam Constitutional: + ill appearing, + morbidly obese and + in distress Eyes: PERRL, conjunctivae normal, anicteric sclerae ENMT: external ear and nose normal, oropharynx normal Neck: + thick neck Respiratory: + uses accessory muscles (diaphragmatic) and + cough Auscultation: + crackles and + rhonchi shallow breathing Cardiovascular: Rate/Rhythm: regular rate and regular rhythm Heart Sounds: normal S1 and normal S2; no gallop, no murmur and no cardiac rub Gastrointestinal (Abdomen): normal bowel sounds, soft, nontender, no hepatosplenomegaly Inspection/Auscultation: normal bowel sounds Percussion/Palpation: abdomen soft Psychiatric: Orientation: alert (responds to verbal stimuli) Insight: good insight Judgement: good judgement Lymphatic: no cervical or axillary lymphadenopathy Results & Data Vital Signs (Past 12 Hours) Vital Signs Temp Pulse Pulse Pulse Resp BP Pulse Ox 02/23/19 07:20 92 H 92 H 16 97 02/23/19 07:03 36.4 C L 101 H 18 108/66 97 02/23/19 03:52 36.6 C 99 H 17 98/68 L 96 02/23/19 02:11 104 H 104 H 25 H 97 02/23/19 00:12 36.1 C L 97 H 24 110/78 94 (1) Congestive heart failure Heart failure chronicity: chronic Heart failure type: unspecified Qualified Code(s): I50.9 - Heart failure, unspecified (2) Aspiration pneumonia Aspiration pneumonia type: unspecified Laterality: unspecified laterality Lung location: unspecified part of lung Qualified Code(s): J69.0 - Pneumonitis due to inhalation of food and vomit (3) Renal failure Chronic kidney disease stage: on chronic dialysis Renal failure chronicity: chronic Qualified Code(s): N18.6 - End stage renal disease; Z99.2 - Dependence on renal dialysis
[2019-02-23] MEDS: BUDESONIDE/FORMOTEROL FUMARATE 160/4.5 60 PUFFS/INHALER INH SCH (11:05)
[2019-02-23] MEDS: CHOLECALCIFEROL 1,000 UNITS TAB PO SCH (11:05)
[2019-02-23] MEDS: METOPROLOL SUCC 25MG EXT REL TAB PO SCH (11:05)
[2019-02-23] MEDS: GABAPENTIN 300 MG CAP PO SCH (11:07)
[2019-02-23] MEDS: NEPHROCAPS PO SCH (11:08)
[2019-02-23] MEDS: PANTOprazole 40 MG TAB PO SCH (11:08)
[2019-02-23] MEDS: NYSTATIN POWDER 15GM BTL EXT SCH (11:08)
[2019-02-23] MEDS: CALCIUM ACETATE 667 MG CAP PO SCH ×3 (11:09→17:18)
[2019-02-23] MEDS: MAGNESIUM OXIDE 400 MG TAB PO SCH (11:09)
[2019-02-23] MEDS: INSULIN ASPART 100 UNITS/ML 3 ML PEN SC SCH ×3 (11:10→17:21)
[2019-02-23] MEDS ORDERED: INSULIN GLARGINE SOLOSTAR 100 UNITS/ML 3 ML PEN SC STA (11:49)
--- NOTE | 2019-02-23 18:37 | Hospitalist Progress Note ---
Date of Service February 23, 2019 Assessment & Plan (1) Acute and chronic respiratory failure: Continuous BIPAP to recruit alveoli, in setting of COPD and chronic RHF; reports using 4L: home oxygen 07/04. Despite efforts with stress dosed steroids for the last two days she is not improved and continues to remain weak. She is exhausted and is falling asleep more frequently today. I evaluated her early this morning and she has not had any periods of waking up, even with significant stimulation efforts. She is too weak to form words, and becomes quickly hypoxic off the BIPAP. Even with the oxymask, she is too weak to speak. It is difficult to tell if she is oriented at this point. I have tried to contact family who are unavailable at this time, and have left a message. It is my thought that we should consider a transition to comfort care measures within the next 24 hours and not pursue hemodialysis tomorrow. This needs to be discussed with the family, however. If I am unable to locate someone, her care will be transferred to Dr. Flores, with whom I have discussed these recommendations. Appreciate Palliative Care assistance with progressing through to this transition in the morning. (2) Aspiration pneumonia: Unasyn (3) DM type 2 (diabetes mellitus, type 2): ISS continues with blood sugars at goal. Added inpatient glycemic consult to help manage glucose with addition of steroids. (4) Depression: sertraline-holding PO meds (5) ESRD (end stage renal disease) on dialysis: recommend against any more hemodialysis. Note sent to Dr. Ya regarding this to hold until family discussion takes place in the morning. Hold midodrine as not tolerating PO. (6) RHF (right heart failure): chronic, compensated (7) Atrial fibrillation: controlled on Toprol. Cont coumadin. Daily INR (8) Supratherapeutic INR: coumadin on hold. No active bleeding. Oral vitamin K was not given yesterday as she was not tolerating PO. INR was persistently elevated, and IV vitamin K was given. (9) DVT prophylaxis: supratherapeutic INR DNR Dispo-recommend transition to comfort care measures at this point. She is clinically declining. Need to discuss this with family prior to de-escalating therapy. Tricia King DO [facility] Hospitalist Subjective I saw her this morning around 8am-she was fatigued and not very responsive, on the BIPAP all night. She did not wake up at all today. This evening, she is too weak to speak to me and form words. She is breathing 14 BPM and using accessory muscles. She appears comfortable, however. Review of Systems Review of Systems: Unobtainable due to cognitive status Physical Exam Physical Exam: CONSTITUTIONAL: obese, fatigued, vitals as above, deconditioned EYES: normal conjunctivae, no scleral icterus ENT: MMM RESPIRATORY: bilateral rhonchi at bases, no crackles, rales or wheezes, normal respiratory effort on BIPAP CARDIOVASCULAR: regular rate and rhythm, S1 and 2 heard without murmurs, gallops or rubs, no JVD GASTROINTESTINAL: normal bowel sounds, soft, nontender, nondistended MUSCULOSKELETAL: generalized weakness, head is normocephalic and atraumatic SKIN: warm and dry NEUROLOGIC: CN 2-12 grossly intact, no gross focal deficits. PSYCHIATRIC: fatigued, frequently falling asleep. Results & Data Vital Signs (Past 12 Hours) Vital Signs Temp Pulse Pulse Resp BP BP Pulse Ox 02/23/19 16:01 36.2 C L 104 H 15 90/57 L 94 02/23/19 16:00 90 02/23/19 14:20 90 21 96 02/23/19 14:19 90 23 96 02/23/19 12:13 36.3 C L 99 H 17 92/60 L 98 02/23/19 08:00 102 H 02/23/19 07:20 92 H 92 H 16 97 02/23/19 07:03 36.4 C L 101 H 18 108/66 97 Laboratory Results Short CBC 02/23/19 Range/Units 06:32 WBC 24.89 H (4.8-10.8) K/uL Hgb 11.9 L (12.0-16.0) g/dL Hct 37.8 (37-47) % Plt Count 201 (130-400) K/uL BMP 02/23/19 06:32 Sodium 135 L Potassium 5.5 H Chloride 96 L Carbon Dioxide 23 BUN 58 H Creatinine 5.10 H* D Glucose 202 H Calcium 9.5 Medications Administered Current Inpatient Medications Hydrocodone Bitart/Acetaminophen ([place] 5/325) 1 tab PO Q6H PRN PRN Reason: Pain Stop: 03/03/19 05:04 Last Admin: 02/20/19 20:53 Dose: 1 tab Documented by: Albuterol (Ventolin Hfa) 2 puffs INH Q6H PRN PRN Reason: Shortness Of Breath Stop: 03/19/19 05:04 Atorvastatin Calcium (Lipitor) 40 mg PO HS [facility] Stop: 03/19/19 20:59 Last Admin: 02/21/19 20:27 Dose: 40 mg Documented by: Budesonide/Formoterol Fumarate (Symbicort 160mcg/4.5mcg) 2 puffs INH BID [facility] Stop: 03/19/19 08:59 Last Admin: 02/23/19 11:05 Dose: Not Given Documented by: Calcium Acetate (Phoslo) 2,668 mg PO TIDM [facility] Stop: 03/19/19 07:59 Last Admin: 02/23/19 17:18 Dose: Not Given Documented by: Dextrose (Dextrose 50%) 25 - 50 ml IV UD PRN; Protocol PRN Reason: Hypoglycemia Protocol Stop: 03/19/19 17:13 Gabapentin (Neurontin) 300 mg PO MoWeFrSa [facility] Stop: 03/19/19 13:59 Last Admin: 02/22/19 13:43 Dose: Not Given Documented by: Gabapentin (Neurontin) 300 mg PO DAILY [facility] Stop: 03/19/19 08:59 Last Admin: 02/23/19 11:07 Dose: Not Given Documented by: Glucagon (Glucagen) 1 mg SQ UD PRN; Protocol PRN Reason: Hypoglycemia Protocol Stop: 03/19/19 17:13 Glucose (Dex4 Glucose) 4 - 8 tabs PO UD PRN; Protocol PRN Reason: Hypoglycemia Protocol Stop: 03/19/19 17:13 Glucose (Glucose 40%) 15 - 30 gm PO UD PRN; Protocol PRN Reason: Hypoglycemia Protocol Stop: 03/19/19 17:13 Glycerin (Glycerin Adult) 1 box OR DAILY PRN PRN Reason: Constipation Stop: 03/24/19 16:37 Ampicillin Sodium/Sulbactam Sodium 3,000 mg/ Sodium Chloride 108 mls @ 200 mls/hr IV Q24H EDWIGE; Protocol Stop: 02/27/19 21:59 Last Infusion: 02/22/19 22:20 Dose: Infused Documented by: Hydrocortisone Sodium (Succinate 100 mg/ Syringe) 2 mls @ 4 mls/min IV Q8 [facility] Stop: 03/24/19 21:59 Last Admin: 02/23/19 13:53 Dose: 4 mls/min Documented by: Insulin Aspart (Novolog Flexpen) 0 units SC ACHS [facility] Stop: 03/19/19 20:59 Last Admin: 02/23/19 17:21 Dose: 1 units Documented by: Insulin Glargine (Lantus Solostar Pen) 0 units SC BID [facility]; Protocol Stop: 03/25/19 20:59 Ipratropium [place] (Atrovent 0.02% 0.5mg/2.5ml) 0.5 mg INH Q6R [facility] Stop: 03/19/19 07:59 Last Admin: 02/23/19 14:18 Dose: 0.5 mg Documented by: Levalbuterol HCl (Xopenex 1.25mg/0.5ml Neb) 1.25 mg INH Q6R [facility] Stop: 03/19/19 07:59 Last Admin: 02/23/19 14:18 Dose: 1.25 mg Documented by: Levothyroxine Sodium (Synthroid) 125 mcg PO DAILYBB [facility] Stop: 03/19/19 06:29 Last Admin: 02/23/19 05:22 Dose: Not Given Documented by: Lorazepam (Ativan) 0.5 mg PO UD PRN PRN Reason: Anxiety Stop: 03/19/19 05:04 Magnesium Oxide (Mag-Ox) 400 mg PO DAILY [facility] Stop: 03/19/19 08:59 Last Admin: 02/23/19 11:09 Dose: Not Given Documented by: Metoprolol Succinate (Toprol Xl) 12.5 mg PO DAILY [facility] Stop: 03/21/19 00:29 Last Admin: 02/23/19 11:05 Dose: Not Given Documented by: Midodrine (Proamatine) 5 mg PO MoWeFrSa@2100 [facility] Stop: 03/19/19 20:59 Last Admin: 02/22/19 20:56 Dose: Not Given Documented by: Midodrine (Proamatine) 10 mg PO MoWeFrSa@0900 [facility] Stop: 03/21/19 08:59 Last Admin: 02/22/19 13:41 Dose: Not Given Documented by: Midodrine (Proamatine) 5 mg PO SuTuTh@0900,2100 [facility] Stop: 03/20/19 02:29 Last Admin: 02/22/19 09:04 Dose: 5 mg Documented by: Miscellaneous (Order Awaiting Action) 1 ea N/A QS EDWIGE Stop: 03/19/19 07:59 Last Admin: 02/23/19 17:17 Dose: Not Given Documented by: Miscellaneous (Carbohydrates For Hypoglycemia) 15 - 30 gm PO UD PRN PRN Reason: Hypoglycemia Treatment Stop: 03/19/19 17:13 Miscellaneous Information (Ampicillin/Sulbactam Consult) 1 ea N/A UD PRN PRN Reason: Consult Stop: 03/23/19 08:59 Miscellaneous Information (Consult Glycemic Management Pharmacy) 1 ea N/A UD PRN PRN Reason: Consult Stop: 03/24/19 17:57 Nystatin (Mycostatin) 1 appln EXT BID [facility] Stop: 03/19/19 08:59 Last Admin: 02/23/19 11:08 Dose: 1 appln Documented by: Pantoprazole Sodium (Protonix) 40 mg PO QAM [facility] Stop: 03/19/19 08:59 Last Admin: 02/23/19 11:08 Dose: Not Given Documented by: Sertraline HCl (Zoloft) 150 mg PO PM [facility] Stop: 03/19/19 20:59 Last Admin: 02/22/19 20:56 Dose: Not Given Documented by: Vitamin B Complex/Folic Acid (Nephrocaps) 1 cap PO DAILY [facility] Stop: 03/19/19 08:59 Last Admin: 02/23/19 11:08 Dose: Not Given Documented by: Vitamin D (Vitamin D3) 1,000 units PO DAILY EDWIG[facility] Stop: 03/19/19 08:59 Last Admin: 02/23/19 11:05 Dose: Not Given Documented by: (1) DM type 2 (diabetes mellitus, type 2) Diabetes mellitus complication detail: with polyneuropathy Diabetes mellitus complication status: with neurologic complications Diabetes mellitus fdc insulin use: with fdc use Qualified Code(s): E11.42 - Type 2 diabetes mellitus with diabetic polyneuropathy; 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
[2019-02-23] MEDS ORDERED: MoRPHine SULFATE 4 MG/ML 1 ML CARP\\VIAL IV STA (19:26)
[2019-02-23] MEDS ORDERED: LORazepam 0.5 MG/1 ML VIAL IV PRN (19:26)
--- NOTE | 2019-02-23 19:36 | Communication Note ---
Date of Service: February 23, 2019 I spoke with the daughter, Kami and , Edward, who agree with comfort care measures at this time. Orders processed for moving her upstairs. Cont Morphine, Ativan, Oxygen as needed. Appreciate Palliative Care assistance with this transition in the morning if she makes it thorugh the night. Fernando, DO
[2019-02-23] MEDS ORDERED: INSULIN GLARGINE SOLOSTAR 100 UNITS/ML 3 ML PEN SC SCH ×2 (21:00)
[2019-02-24] MEDS: MoRPHine SULFATE 2 MG/ML CARP IV PRN ×3 (01:30→18:10)
[2019-02-24] MEDS ORDERED: ATROPINE SULFATE 1% OP SOLN 5 ML BTL SL PRN (08:35)
--- NOTE | 2019-02-24 08:54 | Hospitalist Progress Note ---
Date of Service February 24, 2019 Assessment & Plan (1) Acute and chronic respiratory failure: Acute on chronic respiratory failure due to underlying COPD, associated with hypoxia and hypercapnia. No improvement despite optimization of cardiopulmonary and renal management. Patient and family did not with to consider mechanical ventilation, tracheostomy, or continued BiPAP support. Transitioned to comfort measures. (2) Supratherapeutic INR: INR bridger as high as 9.3. Warfarin stopped. Received vitamin K. No active bleeding. No further monitoring due to comfort measures only status. (3) Atrial fibrillation: Metoprolol and warfarin stopped due to comfort measures only status. (4) ESRD (end stage renal disease) on dialysis: No further monitoring / dialysis due to comfort measures only status. (5) DM type 2 (diabetes mellitus, type 2): Monitoring and insulin stopped due to comfort measures only status. (6) DVT prophylaxis: Received warfarin, now discontinued due to comfort measures only status. (7) Discharge planning issues: Chronic respiratory failure with worsening respiratory status despite optimized therapy. Palliative Care consult obtained. Transitioned to palliative care management with comfort measures only. Patient is expected to during this hospital stay. Subjective Recheck for respiratory failure and other problems. Patient seen in their room around 08:30. Family at bedside. Worsening respiratory status. Patient / family did not want to consider mechanical ventilation, tracheostomy, or prolonged BiPAP. Transitioned to comfort measures yesterday. Obtunded. Appears to be comfortable. Review of Systems: Unable to obtain due to pt's condition. Physical Exam Constitutional: + lethargic; no acute distress Eyes: + anicteric sclerae Respiratory: no respiratory distress and no labored breathing Auscultation: + rhonchi (few scattered) and + wheezes Cardiovascular: Rate/Rhythm: + irregularly irregular Extremities: + edema (trace pretibial) Gastrointestinal (Abdomen): Inspection/Auscultation: + abnormal bowel sounds (quiet) Percussion/Palpation: abdomen soft Neurologic: + obtunded (1) DM type 2 (diabetes mellitus, type 2) Diabetes mellitus residential insulin use: with residential use Diabetes mellitus complication status: with neurologic complications Diabetes mellitus complication detail: with polyneuropathy Qualified Code(s): E11.42 - Type 2 diabetes mellitus with diabetic polyneuropathy; 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
--- NOTE | 2019-02-24 10:06 | Palliative Care Progress Note ---
Date of Service February 24, 2019 Assessment & Plan (1) Palliative care encounter: -I met with patient in the room with FELTING MACHINE OPERATOR HELPER student aMgi Porter. -Pt was transitioned to full comfort measures yesterday evening and moved to room 258 -Pt did open eyes spontaneously, but otherwise no meaningful response. -Patient with spontaneous right leg movement, appeared to be reflex oriented -Patient remains on 8Loxymask, shallow diaphragmatic breathing and based on discussion with Hospitalist and family, will remain, at this time, on O2. -Pt , daughter and son at bedside. -Patient received one dose of Roxanol yesterday, no further needs since then and patient appears comfortable. -Bereavement comfort cart delivered to the patients room. -No spiritual/toll collector needs at this time, declined. -I do not forsee the patient leaving the hospital with her current presentation; however, do not feel GIP is an appropriate approach as her symptoms likely can be controlled with our interventions. -Palliative Care will continue to follow and provide support moving forward. -PPS 10%. (2) Acute and chronic respiratory failure: (3) Atrial fibrillation: (4) Aspiration pneumonia: (5) Congestive heart failure: (6) Renal failure: Subjective Pt did open eyes spontaneously, but otherwise no meaningful response. Patient with spontaneous right leg movement, appeared to be reflex oriented Patient remains on 8Loxymask, shallow diaphragmatic breathing. Pt , daughter and son at bedside. Patient not requiring any pain medication at this time. Please see A/P for further details. Review of Systems Review of Systems: Unobtainable due to reduced consciousness Physical Exam Constitutional: + ill appearing and + morbidly obese; not in distress Eyes: PERRL, conjunctivae normal, anicteric sclerae ENMT: external ear and nose normal, oropharynx normal Neck: + thick neck Respiratory: + uses accessory muscles (diaphragmatic); no cough Auscultation: + crackles and + rhonchi Cardiovascular: Rate/Rhythm: regular rate and regular rhythm Heart Sounds: normal S1 and normal S2; no gallop, no murmur and no cardiac rub Gastrointestinal (Abdomen): normal bowel sounds, soft, nontender, no hepatosplenomegaly Inspection/Auscultation: normal bowel sounds Percussion/Palpation: abdomen soft Psychiatric: Orientation: alert (responds to verbal stimuli) Insight: + not good insight Judgement: + not good judgement Lymphatic: no cervical or axillary lymphadenopathy Time Spent Midlevel Total time spent 35 minutes with > 50% of that time spent assessing the patient, discussing end of life symptoms and expectations with family at bedside. (1) Aspiration pneumonia Aspiration pneumonia type: unspecified Laterality: unspecified laterality Lung location: unspecified part of lung Qualified Code(s): J69.0 - Pneumonitis due to inhalation of food and vomit (2) Congestive heart failure Heart failure chronicity: chronic Heart failure type: unspecified Qualified Code(s): I50.9 - Heart failure, unspecified (3) Renal failure Chronic kidney disease stage: on chronic dialysis Renal failure chronicity: chronic Qualified Code(s): N18.6 - End stage renal disease; Z99.2 - Dependence on renal dialysis
[2019-02-25] MEDS: MoRPHine SULFATE 2 MG/ML CARP IV PRN (01:24)
--- NOTE | 2019-03-01 16:45 | Discharge Summary ---
Date of Service Date of Admission: 02/17/19 Date of : 02/25/19 Admission HPI Per Admitting Provider his is a 63-year-old female with past medical history significant for chronic respiratory failure, on 4-5 liters oxygen all the time and obesity hypoventilation syndrome, uses BiPAP at bedtime, per pulmonary, on last admission advised to use BiPAP 4 hours after eating any food because of aspiration risk, pulmonary hypertension, chronic right-sided heart failure, atrial fibrillation on Coumadin, end-stage renal disease on hemodialysis 4 times a week, type 2 diabetes, hypotension on midodrine, hyperlipidemia, hypothyroidism, recently was in the hospital for pneumonia, treated with antibiotics and again got admitted on January 13 because of misplaced dialysis catheter during that hospitalization, hospitalization was complicated by again pneumonia thought to be from silent aspiration, status post video swallow during her admission and advised for mechanical soft slippery diet with delayed swallowing reflux, and recommended outpatient speech therapy and again had COPD exacerbation because of the pneumonia and treated with steroids and antibiotics and a new Perm-A-Cath was placed and got discharged, again got admitted on February 04 with aspiration pneumonia and hypoxia and was discharged on February 11 on Augmentin. The patient says is weak and is not able to ambulate. She is mostly wheelchair bound currently, lives with her and because of weakness, she was sent to [facility] today. At the [facility], she was found to be hypotensive and hypoxic and she has become short of breath and was sent back here. When she came here, her oxygen was 77% was placed on BiPAP, and improved to higher 90%, her blood pressures are low in the 80s and 90s, later improved to 114/41, slightly tachycardic. The patient tolerating BiPAP okay and the patient says she is feeling better now.She wants to be full code. ABG showed venous pH of 7.15, but CO2 and bicarbonate are unremarkable. Chest x-ray shows again right lower lobe infiltrate, possible pleural effusion and also lower extremity was noted to be warm or erythematous, possible cellulitis. The patient denies any chest pain. She says she has some cough Denies any headache, was having dry heaves, but no vomiting. Moved her bowels yesterday in the morning. They were normal. Doesn't make any urine. Admission Exam Per Admitting Provider GENERAL: The patient is alert and awake, not in acute distress. VITAL SIGNS: Temperature 36.7, pulse 107, respiratory rate 22, blood pressure 140/41, oxygen was 97% on room air, currently on 100% BiPAP. HEENT: No pallor, no icterus. Pupils equal, round, reactive to light. NECK: No neck masses. Supple. CARDIOVASCULAR: S1, S2 heard. Tachycardia. No murmurs. RESPIRATORY SYSTEM: Normal AP diameter. No accessory muscle use. Bilateral rhonchi heard. ABDOMEN: Soft, bowel sounds present. Nontender. No distention. CENTRAL NERVOUS SYSTEM: Alert and awake and oriented, moves extremities. Nonfocal. EXTREMITIES: Chronic lower extremity edema present and erythematic changes and mildly warm to palpation. Principal Diagnosis acute on chronic hypoxic and hypercapnic respiratory failure Discharge Data Allergies Allergy/AdvReac Type Severity Reaction Status Date / Time bacitracin Allergy Intermediate RASH,ITCH Verified 02/17/19 01:55 celecoxib Allergy Intermediate RASH TO Verified 02/17/19 01:55 SULFA DRUGS neomycin Allergy Intermediate RASH,ITCH Verified 02/17/19 01:55 polymyxin B Allergy Intermediate RASH,ITCH Verified 02/17/19 01:55 Sulfa (Sulfonamide Allergy Intermediate RASH,HAS Verified 02/17/19 01:55 Antibiotics) TAKEN GLIPIZIDE W/O REACTION tigecycline AdvReac Severe MILD Verified 02/17/19 01:55 PANCREATITIS codeine AdvReac Intermediate GI UPSET Verified 02/17/19 01:55 Consultations 02/17/19 02:39 ED Decision to Admit Stat 02/17/19 05:05 Consult Case Management - Discharge Planning Routine Consult Mechanical Engineering Intern Routine 02/17/19 08:00 Consult Nephrology Routine 02/20/19 15:00 Consult Pulmonology Routine 02/22/19 16:06 Consult Palliative Care Routine Ordered Studies 02/17/19 05:05 US effusion-chest/mediastinum Urgent Hospital Course (1) Acute and chronic respiratory failure with hypoxia: Patient was a 63 year-old female with end-stage COPD with chronic hypoxic and hypercapnic respiratory failure, CKD V on hemodialysis, and multiple other problems as detailed in H&P and progress notes. O2 dependent at home and required BiPAP. History of chronic aspiration with exacerbations of pulmonary status. Admitted 02/17/19 with worsening respiratory symptoms. Pulmonary Medicine was consulted. Treated for possible aspiration pneumonia with IV antibiotics, steroids, nebs although no new infiltrates were seen on chest x-ray. Received hemodialysis for ESRD and was euvolemic. Despite those measures patient's condition did not improve and she remained very weak, requiring essentially continuous BiPAP support. This was the 6th hospitalization recent months. Patient was not interested in pursuing trach, mech ventilation, ongoing BiPAP support, or PEG. Palliative Care consultation was obtained. Care plan transitioned to comfort care only. BiPAP was discontinued. Patient on 02/25/19 at 03:10. Total Time Total Time Spent Total Time Spent (In Minutes): 0 Discharge Plan Discharge Items Patient Disposition: Admission Data Admit Date/Time: 02/17/19 03:52 Service: Medical Other DC Date/Time DO NOT enter until pt leaves facility: 02/25/19 02:55
== END 2019-02-25 02:55 | disposition expired | DRG 177 ==
LOC: ED 01:26 → 1E 03:52 → SUATTDRO 03:52 → 1E 04:32 → 2S 02-18 06:36 → 2W 02-23 19:21 → 4E 02-24 17:51